=== PATIENT | male | born 1960 | race Caucasian/White ===

== ENCOUNTER 2020-10-04 12:27 | Inpatient (IN) | payer MEDICARE, SELFPAY ==
[2020-10-04] VITALS (35 sets, daily range): BP systolic 131–197; BP diastolic 68–134; PULSE 74–132; RESP 18–36; TEMP 36.2–36.8; O2SAT 87–98
--- NOTE | ~2020-10-04 | XR_ITS ---
EXAMINATION: XR chest 2V EXAM DATE: 10/04/2020 13:00 INDICATION: Shortness of breath, racing heart. History atrial fibrillation. TECHNIQUE: Frontal and lateral projections of the chest obtained and reviewed. Comparison is made to prior examination from 05/01/2014. FINDINGS: The cardiac silhouette is enlarged. There is pulmonary vascular congestion. There is indis tinct reticulation with a bibasal predominance which may indicate pulmonary edema. Small pleural effu sions bilaterally. Appearance is suspicious for mild CHF exacerbation. No confluent consolidation or pneumothorax. Old right rib fracture. IMPRESSION: 1. Findings suspicious for CHF exacerbation. Reviewed, dictated and finalized at location B. ROUND BUTCHER
--- NOTE | ~2020-10-04 | US_ITS ---
EXAMINATION: US venous doppler [facility] DATE: 10/05/2020 07:48 INDICATION: Lower limb edema. TECHNIQUE: Grayscale ultrasound images without and with compression and Doppler ultrasound images of the bilateral lower extremity veins were obtained. COMPARISON: Ultrasound 05/30/2014 FINDINGS: The visualized portions of right common femoral vein, profunda (deep) femoral vein, femoral vein, pop liteal vein, peroneal veins, posterior tibial veins, and greater saphenous vein outflow are patent. The visualized portions of left common femoral vein, profunda femoral vein, femoral vein, popliteal v ein, peroneal veins, posterior tibial veins, and greater saphenous vein outflow are patent. IMPRESSION: 1. No deep venous thrombosis. Reviewed, dictated and finalized at location A. ROOM ATTENDANT
--- NOTE | 2020-10-04 12:39 | ECG_ITS ---
Measurements Intervals [place] Rate: 102 P: CA: 0 QRS: 73 QRSD: 133 T: -53 QT: 367 QTc: 480 Interpretive Statements ATRIAL FIBRILLATION WITH RAPID VENTRICULAR RESPONSE RIGHT BUNDLE BRANCH BLOCK ST-T WAVE ABNORMALITY IN ANTEROLAT/INF LEADS- CONSIDER ISCHEMIA ABNORMAL ECG Electronically Signed On 10-04-2020 12:57:56 DOG HAIR CLIPPER by Clinton Bolaños D.O.
--- NOTE | 2020-10-04 12:43 | PC.NURSE ---
Pt placed on 2 L NC O2, O2 Sat 87% on room air.
[2020-10-04 12:57] LABS: Basophils Absolute Auto 0.1 K/mm3 (0.0-0.1); Basophils Percent Auto 0.7 % (0.2-1.2); Eosinophils Absolute Auto 0.1 K/mm3 (0-0.3); Eosinophils Percent Auto 1.1 % (0-4.4); Hematocrit 40.7 % (42.0-52.0); Immature Granulocyte Absolute 0.02 K/mm3 (0.00-0.031); Immature Granulocyte Percent A 0.3 % (0-0.5); Lymphocytes Absolute Auto 1.01 K/mm3 (0.9-3.2); Lymphocytes Percent Auto 13.3 % (18.3-44.2); Mean Corpuscular HGB Conc 31.9 g/dl (32-36); Mean Corpuscular Hemoglobin 32.6 pg (26-34); Mean Platelet Volume 10.9 fl (7.4-10.4); Monocytes Absolute Auto 0.8 K/mm3 (0.1-0.6); Neutrophils Absolute Auto 5.7 K/mm3 (1.3-6.7); Neutrophils Percent Auto 74.6 % (45.5-73.1); Platelet Count Result 235 k/mm3 (150-375); Red Blood Count 3.99 M/mm3 (4.6-6.20); Red Cell Distribution Width 14.7 % (11.5-14.5); White Blood Count 7.6 K/mm3 (4.5-10.0)
--- NOTE | 2020-10-04 12:58 | ED.ARRPALP ---
HPI - Arrhythmia/Palpitations General Chief Complaint: Arrhythmia/Palpitations Stated Complaint: FAST HEART RATE Time Seen by Provider: 10/04/20 12:42 Source: patient Mode of arrival: ambulatory Limitations: no limitations History of Present Illness HPI narrative: Patient complaining of palpitations started today, accompanied by shortness of breath worse with exertion. Patient states he has a history of A. fib and currently on Xarelto. Patient denies any chest pain, dull pain, nausea, vomiting, diarrhea, fever or chills. Patient states that he has not been taking his diuretics and 7-8 other medications due to insurance issues for the past month, but still taking Xarelto for his A. fib and PEs. Related Data Allergies Allergy/AdvReac Type Severity Reaction Status Date / Time bacitracin Allergy Unknown Unknown Verified 10/04/20 13:23 neomycin Allergy Unknown Unknown Verified 10/04/20 13:23 polymyxin B Allergy Unknown Unknown Verified 10/04/20 13:23 Review of Systems Review of Systems: All systems reviewed & are unremarkable except as noted in HPI and below Constitutional: Constitutional: Denies body ache(s), Denies chills, Denies excessive sweating, Denies fatigue, Denies fever(s), Denies headache(s), Denies lethargy, Denies malaise, Denies weakness and Denies weight loss Eyes: Eyes: Denies blurry vision, Denies change in vision and Denies loss of vision ENT: Denies dizziness, Denies ear discharge, Denies headache(s), Denies lip swelling, Denies epistaxis, Denies nasal congestion, Denies neck pain, Denies throat swelling and Denies tongue swelling Cardiovascular: Cardiovascular: Denies chest pain, Denies chest pain at rest, Denies chest pain with activity, Denies diaphoresis, Denies rapid heart rate, Denies edema, Denies irregular heart rhythm and Denies lightheadedness Respiratory: Respiratory: Denies chest congestion, Denies cough and Denies hemoptysis Gastrointestinal: Gastrointestinal: Denies abdominal pain, Denies melena, Denies hematochezia, Denies diarrhea, Denies nausea, Denies vomiting and Denies hematemesis Musculoskeletal: Musculoskeletal: Denies abnormal gait, Denies deformity, Denies joint swelling, Denies limited range of motion, Denies neck pain and Denies numbness Neurologic: Denies Abnormal speech present, Denies abnormal gait, Denies confusion, Denies dizziness, Denies headache(s), Denies focal weakness, Denies loss of vision, Denies numbness, Denies Other visual disturbances, Denies Sensory deficit (Neuro) and Denies weakness Psychiatric: Psychiatric: Denies confusion, Denies depression, Denies auditory hallucinations, Denies homicidal ideation and Denies suicidal ideation Endocrine: Endocrine: Denies cold intolerance, Denies excessive sweating, Denies fatigue, Denies heat intolerance and Denies palpitations Hematologic/Lymphatic: Hematologic/Lymphatic: Denies easy bleeding and Denies easy bruising Allergic/Immunologic: Allergic/Immunologic: Denies lip swelling, Denies throat swelling and Denies tongue swelling PMFSH Social History Social History Gender identity (if verbalized by the patient): Male Exam Const: General: cooperative, healthy appearing, comfortable, no acute distress, well developed, alert and awake; No confusion Orientation/consciousness: oriented to person, oriented to place, oriented to time, patient oriented x3 and No confusion Limitations: no limitations HENMT: Head: normal to inspection, normocephalic and atraumatic Ears: hearing grossly normal bilaterally, TM normal on the right and TM normal on the left General nose exam: Normal external nose present, Normal nares present and No nasal discharge present Face and sinus: normal facial exam Mouth: Yes Normal oral and palatal mucosa present, Yes lip normal, Yes tongue normal and Yes oropharynx normal Throat: posterior oropharynx normal, tonsils normal and uvula midline Eyes: General: a
[2020-10-04 13:06] LABS: INR 1.6; Prothrombin Time 19.5 Seconds (11.1-14.7)
[2020-10-04 13:10] LABS: Anion Gap 5 mmol/L (8-16); Blood Urea Nitrogen 14 mg/dL (9-20); Calcium 8.6 mg/dL (8.4-10.2); Carbon Dioxide 32 mmol/L (22-30); Chloride 102 mmol/L (98-107); Estimated CRCL calculation 109 ml/min; Estimated Glomerular Filt Rate > 60; Glucose 110 mg/dL (75-110); Potassium 3.8 mmol/L (3.4-5.0); Sodium 139 mmol/L (137-145)
[2020-10-04 13:22] LABS: Troponin I 0.031 ng/mL (0.000-0.034)
[2020-10-04] MEDS: dilTIAZem HCl INJ 25 MG/5 ML VIAL 10 MG IV PUSH (13:23)
[2020-10-04] MEDS: FUROSEMIDE INJ 40 MG/4 ML VIAL IV PUSH ×2 (13:23→20:51)
--- NOTE | 2020-10-04 14:30 | PC.NURSE ---
Asked ERP if they wanted 4 baby aspirins. ERP declined via verbal order readback
[2020-10-04 14:56] LABS: NT Pro B Type Natriuretic Pept 4320 PG/ML (5-100)
--- NOTE | 2020-10-04 15:00 | PM.IMHP ---
H&P: HPI History of Present Illness Date/Time: 10/04/20 15:00 Chief Complaint: Rapid heart rate and shortness of breath. Narrative: This is a very pleasant 59-year-old male with paroxysmal atrial fibrillation on long-term anticoagulation, congestive heart failure, obstructive sleep apnea, history of DVT and pulmonary embolism, morbid obesity, and hypothyroidism who presented to the emergency department earlier today from his primary care provider's office for evaluation of rapid heart rate and shortness of breath. For about a month's time he has felt more short of breath from his baseline with increasing lower extremity edema, dry cough, and weight gain. He attributes this to being off of a majority of his medications for little over a month's time due to a lapse and/or change in insurance, reportedly only taking rivaroxaban on a consistent basis. He established care with Dr. Clemens today and he was found to be in atrial fibrillation with rapid ventricular response on arrival to his office and thus he was directed to the ED. He is now in a sinus rhythm after receiving 10 mg of IV diltiazem x1. He has no real symptoms of the atrial fibrillation aside from the shortness of breath, and specifically denies feelings of racing heart, palpitations, and irregular heartbeat. He sleeps on 3 pillows chronically and that is unchanged. He denies fever, chills, or sweats. No headache, sinus congestion, rhinorrhea, otalgia, odynophagia, nausea, vomiting, or diarrhea. No known sick contacts or exposure to those positive for COVID-19. Review of Systems Review of Systems: Narrative: Twelve systems were reviewed with pertinent positives and negatives as per HPI. No headache. No cold or flu symptoms. He has had a dry cough for about a month but this is really unchanged. Appetite has been good. No dysuria or hematuria. Except as documented, all other systems were reviewed and are negative. [facility] Past Medical History Medical History (Updated 10/04/20 @ 21:12 by Julia Costa PA-C) Anxiety Arthritis Chronic anemia Congestive heart failure Ejection fraction was about 30% on echocardiogram in April 2014. 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 Family History Family History (Updated 10/04/20 @ 21:08 by Julia Costa PA-C) Father Leukemia Sibling Breast cancer Social History Social History (Updated 10/04/20 @ 21:09 by Julia Cotsa PA-C) Social History: Surrogate decision maker: Dennis Baldwin, son. Code status: Full code. Smoking status: Never smoker Second hand tobacco smoke exposure: No Alcohol intake: never Substance use: never Additional living arrangements comments: Lives in his own home in [place]. 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 Gender identity (if verbalized by the patient): Male Spiritual care concerns: No Meds Home Medications and Allergies Home Medications Medication Instructions Recorded Confirmed Type atorvastatin 80 mg PO DAILY 10/04/20 10/04/20 History carvedilol 25 mg PO BID 10/04/20 10/04/20 History levothyroxine 25 mcg PO DAILY 10/04/20 10/04/20 History losartan 100 mg PO DAILY 10/04/20 10/04/20 History magnesium oxide 400 mg PO DAILY 10/04/20 10/04/20 History rivaroxaban [Xarelto] 15 mg PO DAILY 10/04/20 10/04/20 History spironolactone 12.5 mg PO DAILY 10/04/20 10/04/20 History Allergies Allergy/AdvReac Type Severity Reaction Status Date / Time bacitracin Allergy Unknown Unknown Verified 10/04/20 18:44 neomycin Allergy Unknown Unknown Verified 0
[2020-10-04 17:29] LABS: Troponin I 0.038 ng/mL (0.000-0.034)
--- NOTE | 2020-10-04 18:30 | ADMGEN ---
This patient, Omar Baldwin, was admitted to IMU Room 231-01 on 10/04/2020 at 1719. Patient/family oriented to hospital policies and general routines including ID bracelet, bed and alarms, visiting hours, pain management, procedures, bathroom and other care routines, personal items, smoking policy, room service/diet, and visiting hours. Information on how to activate the Rapid Response Team has been discussed. Patient/Family are encouraged to report perceived risks to care and to ask questions if they do not understand what they are told or what they should do.
[2020-10-04 20:47] LABS: Troponin I 0.041 ng/mL (0.000-0.034)
[2020-10-04 21:13] LABS: Alanine Aminotransferase 14 U/L (4-50); Albumin Level 3.6 g/dL (3.5-5.1); Alkaline Phosphatase 73 U/L (38-126); Aspartate Amino Transferase 26 U/L (17-59); Bilirubin,Total 1.5 mg/dL (0.2-1.3); Magnesium 1.7 mg/dL (1.6-2.3)
[2020-10-04 21:15] LABS: Hemoglobin A1C 5.5 % (<5.7)
[2020-10-04 22:13] LABS: Free T4 Free Thyroxine Reflex 1.49 ng/dL (0.78-2.19)
[2020-10-04] MEDS: carvediloL 25 MG TABLET PO (22:27)
[2020-10-05] VITALS (25 sets, daily range): BP systolic 92–130; BP diastolic 48–84; PULSE 64–90; RESP 18–25; TEMP 36–36.3; O2SAT 90–100
[2020-10-05] LABS: Alveolar/Arterial O2 Gradient 179.6 mmHg; Base Excess ABG 7.5 mEq/l (+/-2.0); Carboxyhemoglobin 0.5 % THb (0-2.0); Fractional Inspired Oxygen 44 %; HCO3 ABG 35.7 mEq/l (22.0-26.0); Methemoglobin ABG 0.3 %THb (0-1.5); Oxygen Content ABG 16.4 %vol (16.0-22.0); Oxyhemoglobin 88.3 % THb (90.0-100.0); PO2 ABG 56.1 mmHg (80.0-100.0); PO2 FiO2 Ratio Arterial Blood 1.27 %; Reduced Hemoglobin 10.9 %THb (0-5.0); Total Hemoglobin 13.2 g/dL (12.0-18.0); pH ABG 7.336 (7.350-7.450)
--- NOTE | 2020-10-05 | ECHO_ITS ---
Patient Info Name: Omar Baldwin Age: 59 years : 1960 Gender: Male Ht: 72 in Wt: 417 lbs BSA: 3.21 m2 HR: 66 bpm BP: 108 / 48 mmHg Technical Quality: Poor Exam Date: 10/05/2020 1:28 PM Exam Location: [facility] Patient Status: Inpatient Admit Date: 10/04/2020 Staff Ordering Physician: Juan Daniel Kelsey MD Electrical Calibrator: Bobbi Oliva RDCS Attending Provider: Luz Correa MD Exam Type: CA echo dop color flow w con Study Info Complete two-dimensional, color flow and Doppler transthoracic echocardiogram is performed with contrast to opacify the left ventricle and to improve the deliniation of the left ventricle endocardial borders. Contrast was used for delineation of myocardium. Contrast/Agitated Saline Contrast/Ag. Saline: Definity Amount: 4.00 ml Summary 1. Left ventricular systolic function is normal, estimated at 50-55%. 2. There is mildly increased left ventricular wall thickness. Left Ventricle Left ventricular chamber dimension is normal. Left ventricular systolic function is normal, estimated at 50-55%. There is mildly increased left ventricular wall thickness. Left ventricular septal wall motion is normal. The left ventricular diastolic function is normal. Right Ventricle Right ventricular chamber dimension is mildly enlarged. Right ventricular systolic function is reduced. Left Atria Left atrial chamber dimension is normal. Right Atria Right atrial chamber dimension is normal. Aortic Valve The aortic valve is trileaflet. There is no aortic valve sclerosis. There is no aortic valve stenosis. There is no aortic valve regurgitation. Pulmonic Valve The pulmonic valve is normal. There is no pulmonic valve stenosis. There is no pulmonic regurgitation. Mitral Valve The mitral valve has normal leaflets. There is mild mitral valve stenosis. There is no mitral valve regurgitation. Tricuspid Valve The tricuspid valve leaflets are normal. There is mild tricuspid valve stenosis. There is no tricuspid valve regurgitation. Moderate pulmonary hypertension, estimated pulmonary arterial systolic pressure is 46 mmHg. Pericardium/Pleural The pericardium appears normal. There is no pericardial effusion. Inferior Vena Cava Normal inferior vena cava with >50% collapse upon inspiration consistent with elevated right atrial pressure, 15 mmHg. Aorta The aortic root size at the sinus of Valsalva is normal. The prox ascending aorta size is normal. Left Ventricular Outflow Tract Name Value Normal LVOT 2D LVOT Diameter 2.20 cm LVOT Doppler LVOT Peak Velocity 114.18 cm/s LVOT Peak Gradient 4 mmHg LVOT Mean Gradient 2 mmHg LVOT VTI 26.86 cm LVOT VTI/AV VTI Ratio 1.42 LVOT Stroke Volume 102.00 ml LVOT CO 7.81 l/min LVOT CI 2.43 L/min/m2 Pulmonic Valve
[2020-10-05 00:03] LABS: Oxygen Saturation ABG 86.3 % (95.0-100.0); PCO2 ABG 68.4 mmHg (35.0-45.0); Site Drawn RIGHT RADIAL
[2020-10-05 00:04] LABS: Device OTHER DEVICE; Modified Allen's Test Pass
[2020-10-05 00:22] LABS: Total Triiodothyronine (T3) 1.01 NG/ML (0.97-1.69)
--- NOTE | 2020-10-05 02:27 | PM.EVENT ---
Event Note Event Note Event Note: 10/04/2020 at 23:25 I was in the IMU when respiratory therapy mention that the patient was having some hypoxia. They had tried making adjustments to auto titrating BiPAP but the patient remained hypoxic with oxygen saturations of 85%. Subsequently I requested an ABG be ordered. The patient was found to have hypercapnic hypoxic respiratory failure. Respiratory therapy found and note that mention that the patient was source be titrated for BiPAP as outpatient at sometime in the past. It also mentions that the patient would benefit from trilogy at that time. GENERAL: Morbidly obese HEENT: Large neck circumference, head normocephalic atraumatic CARDIOVASCULAR: Regular rate, irregular rhythm RESPIRATORY: Tachypnea with shallow respirations ABDOMEN: Obese, distended INTEGUMENT: Generalized pallor, non jaundice NEUROLOGIC: Alert and oriented PSYCHIATRIC: Deferred EXTREMITIES: Pitting edema : Deferred Assessment and plan: 1. acute on chronic hypercapnic hypoxic respiratory failure--the patient BiPAP was changed from an auto titrating system to a vision system with settings of 20/10 in a rate of 18 and 100% FiO2 with plan to wean for her oxygen saturations greater than 92%. On the settings the patient was pulling tidal volumes between 450 and 600. However the patient was continuously moving his mask resulting in leaks. Repeat ABG 2 hours later demonstrated PH would pH is 7.29 and pCO2 of 70 with a PO2 of 208. Subsequently orders were given to increase the patient's settings to 22/10 with a rate of 24 and wean FiO2 significantly. Will repeat ABG in 2 hours. I suspect the patient's hypercapnia is more likely due to obesity hypoventilation syndrome rather obstructive lung disease. However, will add Xopenex and Atrovent to see if this may not help with patient's respiratory status. The patient's repeat ABG after BiPAP changes had improved modestly. Pulmonology has been consulted for further recommendations. 40 minutes spent in critical care activities. This case had a high probability of a clinically significant, sudden, or life threatening deterioration of this patient's condition which required my full and direct attention, intervention and personal management.
[2020-10-05 03:09] LABS: Alveolar/Arterial O2 Gradient 434.1 mmHg; Base Excess ABG 4.8 mEq/l (+/-2.0); Carboxyhemoglobin 0.3 % THb (0-2.0); Fractional Inspired Oxygen 100 %; HCO3 ABG 33.4 mEq/l (22.0-26.0); Methemoglobin ABG 0.5 %THb (0-1.5); Oxygen Content ABG 17.8 %vol (16.0-22.0); Oxygen Saturation ABG 99.3 % (95.0-100.0); Oxyhemoglobin 97.7 % THb (90.0-100.0); PO2 ABG 208.7 mmHg (80.0-100.0); PO2 FiO2 Ratio Arterial Blood 2.09 %; Reduced Hemoglobin 1.5 %THb (0-5.0); Total Hemoglobin 12.6 g/dL (12.0-18.0); pH ABG 7.295 (7.350-7.450)
[2020-10-05 03:15] LABS: Device NON-INVASIVE VENT; Modified Allen's Test Pass; PCO2 ABG 70.2 mmHg (35.0-45.0); Site Drawn RIGHT RADIAL
[2020-10-05 03:16] LABS: Non-Invasive Expiratory Pressure 10 CMH2O; Non-Invasive Inspiratory Pressure 20 CMH2O; Non-Invasive Vent Rate 18 /MIN
[2020-10-05] MEDS: IPRATROPIUM BR 0.02% INH SOLN 0.5 MG/2.5 ML VIAL INHALATION ×2 (03:50→08:19)
[2020-10-05 05:39] LABS: Alveolar/Arterial O2 Gradient 316.6 mmHg; Base Excess ABG 5.6 mEq/l (+/-2.0); Carboxyhemoglobin 0.1 % THb (0-2.0); Fractional Inspired Oxygen 70 %; HCO3 ABG 33.8 mEq/l (22.0-26.0); Methemoglobin ABG 0.4 %THb (0-1.5); Oxygen Saturation ABG 97.5 % (95.0-100.0); Oxyhemoglobin 96.9 % THb (90.0-100.0); PCO2 ABG 67.3 mmHg (35.0-45.0); PO2 ABG 110.2 mmHg (80.0-100.0); PO2 FiO2 Ratio Arterial Blood 1.57 %; Reduced Hemoglobin 2.6 %THb (0-5.0); Site Drawn LEFT RADIAL; Total Hemoglobin 13.1 g/dL (12.0-18.0); pH ABG 7.319 (7.350-7.450)
[2020-10-05 05:40] LABS: Device NON-INVASIVE VENT; Modified Allen's Test Pass
[2020-10-05 05:41] LABS: Non-Invasive Expiratory Pressure 10 CMH2O; Non-Invasive Inspiratory Pressure 22 CMH2O; Non-Invasive Vent Rate 24 /MIN
[2020-10-05 05:47] LABS: Hemoglobin 11.9 g/dL (14.0-18.0); Mean Corpuscular HGB Conc 30.5 g/dl (32-36); Mean Corpuscular Volume 104.8 fl (80-100); Mean Platelet Volume 10.8 fl (7.4-10.4); Platelet Count Result 190 k/mm3 (150-375); Red Blood Count 3.72 M/mm3 (4.6-6.20); Red Cell Distribution Width 14.8 % (11.5-14.5); White Blood Count 5.5 K/mm3 (4.5-10.0)
[2020-10-05] MEDS: LEVOTHYROXINE SODIUM 25 MCG TABLET PO (06:08)
[2020-10-05 08:13] LABS: Iron 49 ug/dL (49-181)
[2020-10-05] MEDS: RIVAROXABAN 15 MG TABLET PO (08:15)
[2020-10-05] MEDS: carvediloL 25 MG TABLET PO ×2 (08:15→21:33)
[2020-10-05] MEDS: FUROSEMIDE INJ 40 MG/4 ML VIAL IV PUSH (08:15)
[2020-10-05] MEDS: ATORVASTATIN 40 MG TABLET 80 MG PO (08:15)
[2020-10-05] MEDS: MAGNESIUM OXIDE 400 MG TABLET PO (08:15)
[2020-10-05] MEDS: SPIRONOLACTONE 12.5 MG TABLET PO (08:15)
[2020-10-05] MEDS: LOSARTAN POTASSIUM 100 MG TABLET PO (08:15)
[2020-10-05 08:17] LABS: Blood Urea Nitrogen 14 mg/dL (9-20); Calcium 8.7 mg/dL (8.4-10.2); Carbon Dioxide > 40 mmol/L (22-30); Chloride 99 mmol/L (98-107); Estimated CRCL calculation 92 ml/min; Estimated Glomerular Filt Rate 56; Glucose 98 mg/dL (75-110); Magnesium 1.7 mg/dL (1.6-2.3); Potassium 4.3 mmol/L (3.4-5.0); Sodium 140 mmol/L (137-145)
--- NOTE | 2020-10-05 10:36 | PM.CNCAR ---
Assessment and Plan Assessment and plan (1) CHF exacerbation: Code(s): I50.9 - Heart failure, unspecified Status: Acute Assessment and Plan: He had LV dysfunction in the past but last echo was done 2 years ago showed improved left ventricular systolic function, and significant pulmonary hypertension. Will repeat his echo as was supposed to be done in outpatient but he did not have follow-up for that and he did not have it done, seems to be better clinically now continue diuresis, rate is well controlled now as far as his AFib (2) Atrial fibrillation with RVR: Code(s): I48.91 - Unspecified atrial fibrillation Status: Acute Assessment and Plan: Rate is well controlled now he received 1 dose of Cardizem, now back on his original Coreg, which probably was not taking because uncontrolled blood pressure and altered heart rate. He stated that he was out of his meds for a while, was started back on that and continue with that as when he gets discharged (3) Hypertensive urgency: Code(s): I16.0 - Hypertensive urgency Status: Acute Assessment and Plan: Blood pressure is better now, resume his Coreg and losartan (4) Chronic renal failure: Code(s): N18.9 - Chronic kidney disease, unspecified Status: Acute (5) Obstructive sleep apnea on CPAP: Code(s): G47.33 - Obstructive sleep apnea (adult) (pediatric); Z99.89 - Dependence on other enabling machines and devices Status: Acute (6) Morbid obesity: Code(s): E66.01 - Morbid (severe) obesity due to excess calories Status: Inactive (7) Troponin level elevated: Code(s): R77.8 - Other specified abnormalities of plasma proteins Status: Acute Assessment and Plan: Troponin slightly elevated likely is due to renal failure and congestive heart failure, will continue to monitor, consider further evaluation in case troponin gets significantly elevated. No history of chest pain, no history of known coronary artery disease Additional Plan Thank you for allowing me to participate in this patient's care, I will be following up with you. Please do not hesitate to call me for any other inquiry History of Present Illness History of Present Illness Consult date/time: 10/05/20 10:36 59 years old gentleman with history of known chronic atrial fibrillation and history of sleep apnea with morbid obesity, known to our service with that, he was admitted to the hospital because of worsening shortness of breath and cough, started having dry cough for the past few days. Has mild orthopnea [id number] chronic leg swelling. No recent chest pain no dizziness no palpitation noted when he came in to have atrial fibrillation rapid ventricular response and his blood pressure was elevated, but according to him he was out of some of his medications due to coverage. He has had to come to the hospital to get restarted back on his medication to get refills and to be compliant now with his meds according to him. No chest pain as above, no dizziness no syncope, he gets occasional palpitation, his breathing is much better now since admission to the hospital. Reason For Visit: CHF EXACERBATION/ATRIAL FIB RVR/HTN URGENCY Review of Systems Constitutional: Constitutional: Reports difficulty sleeping and Reports snoring Cardiovascular: Cardiovascular: Reports as per HPI Respiratory: Respiratory: Reports chest congestion and Reports cough PMFSH Past Medical History Medical History (Updated 10/05/20 @ 10:40 by Juan Daniel Kelsey MD) Anxiety Arthritis Chronic anemia Congestive heart failure Ejection fraction was about 30% on echocardiogram in April 2014. Current use of correction anticoagulation Gastroesophageal reflux disease History of deep venous thrombosis History of pulmonary embolism Hypertension Hypothyroidism Morbid obesity Obstructive sleep apnea on CPAP Paroxysmal atrial fibrillation Surgical History Surgi
[2020-10-05 12:43] LABS: Percent Iron Saturation 14 % (20-50)
--- NOTE | 2020-10-05 12:44 | PM.CNPUL ---
Assessment and Plan Assessment and plan (1) Obstructive sleep apnea on CPAP: Code(s): G47.33 - Obstructive sleep apnea (adult) (pediatric); Z99.89 - Dependence on other enabling machines and devices Status: Acute Assessment and Plan: Patient with obstructive sleep apnea on CPAP for 13 years. In patient now also appears to have chronic hypercarbic respiratory failure but this is in the setting of an acute CHF for exacerbation. Agree with aggressive diuresis. Patient has had no follow-up with a pulmonary physician for approximately 5-10 years and will need a recent download to ensure that his obstructive sleep apnea is adequately treated. If his YEN is adequately treated on CPAP once patient is felt to be euvolemic will repeat blood gas and if he remains hypercarbic will initiate nocturnal noninvasive ventilation. Will check with his [employer] but he will likely need outpatient BiPAP titration in sleep lab and he can follow up with us in clinic for this work up. While he is in the hospital agree with BiPAP 22/10 rate 12and FIO2 to maintain sats > 90%. There is no evidence of reactive airways disease, bronchitis or pneumonia at this time. I will DC bronchodilators. (2) Acute exacerbation of CHF (congestive heart failure): Qualifiers: Heart failure type: unspecified Qualified Code(s): I50.9 - Heart failure, unspecified Code(s): I50.9 - Heart failure, unspecified Status: Acute Assessment and Plan: Agree with aggressive diuresis per hospitalist and cardiology teams. Spoke with Dr. Smith. Will follow with you. History of Present Illness History of Present Illness Consult date: 10/05/20 Requesting physician: Robert Smith MD Reason for consult: hypoxemia Chief complaint: CHF EXACERBATION/ATRIAL FIB RVR/HTN URGENCY Narrative: 59-year-old male with a history of pulmonary embolism in 2001 thought to be related to his non ambulatory lifestyle. Patient improved and was off warfarin after 6 months. Patient then had repeat pulmonary embolism in 2002 when he was off his coumadin. Patient was then placed on lifelong anticoagulation. Patient ran out of his medicines in 2011 and had a 3rd pulmonary embolism. Patient has never had pulmonary embolism when he was on his anticoagulation. Patient also has a history of congestive heart failure, atrial fibrillation and morbid obesity and obstructive sleep apnea. Patient was diagnosed with obstructive sleep apnea in 2007 has been and has been on a CPAP machine at home with a fullface mask that he wears every night with 2 L bleed in. Patient had a new machine in 2013. Patient does not wear oxygen during the day and has a pulse oximeter and says that the readings are above 90 during the day. Currently patient ran out of his medicines due to an insurance change at on 08/30/2020. He was able to continue to take his right peroxide band. Patient comes in now with shortness of breath and fast heart rate to his doctor's office who sent him to the emergency room. Patient was found to be hypertensive and in AFib RVR and was treated will do it with diltiazem. Patient denies any fever, chills, phlegm production or hemoptysis. Patient does have a chronic cough. Patient denies any chest pain. Of note patient has gained over 50 lb in the last year. He had a BNP of 4320 and a CXR that demonstrated cpongestion. Patient was given Lasix with good diuresis. Patient had a blood gas on 6 L nasal cannulae of 7.34/69/56. Patient was hypoxemic during the night and placed on BiPAP 22-10 on 70% with a repeat blood gas of 7.32/67/110 2/6 I saw the patient this morning and he was breathing comfortably on 2 L nasal cannula with saturations 93%. Patient states that he was now breathing a little better. The patient is a never smoker, no secondhand exposure, patient states that he was exposed to asbestos in his 20s through work but wore mask. Patient denies any vaping or marijuana
--- NOTE | 2020-10-05 13:04 | PM.IMPN ---
Progress Note: A&P Assessment and Plan (1) CHF exacerbation: Code(s): I50.9 - Heart failure, unspecified Status: Acute Assessment and Plan: Patient with acute on chronic CHF. Chest x-ray consistent with CHF exacerbation. BNP 4300. Acute exacerbation related to being off his medications and the AFib with RVR. Heart rate better controlled. Good urine output with IV Lasix. Appreciate Cardiology input. (2) Atrial fibrillation with RVR: Code(s): I48.91 - Unspecified atrial fibrillation Status: Acute Assessment and Plan: Patient received 1 dose of diltiazem in the ER. Patient resumed on his Coreg. Blood pressure and heart rate well controlled now. Continue Xarelto. Continue telemetry monitoring. (3) Acute respiratory failure: Code(s): J96.00 - Acute respiratory failure, unspecified whether with hypoxia or hypercapnia Status: Acute Assessment and Plan: ABG shows pH 7.34 and pCO2 of 68 on admission. This worsened to a pH of 7.29 and pCO2 of 70. With BiPAP his most recent ABG has improved. Discussed with Pulmonary. Plan is to continue his CPAP at home as well as to optimize his medical management for his above the issues. He will need a repeat sleep study. (4) Troponin level elevated: Code(s): R77.8 - Other specified abnormalities of plasma proteins Status: Acute Assessment and Plan: Elevated 0.041. ST T wave abnormalities in the anterior lateral and inferior leads. However this is more likely a type 2 PA related to the AFib with RVR and CHF exacerbation. Cardiology following. Continue medical management. (5) Hypertension: Code(s): I10 - Essential (primary) hypertension Status: Inactive Assessment and Plan: Blood pressure was elevated 195/89 on admission. With resuming his home medications, blood pressure is much better controlled. Continue to monitor closely. Watch for low blood pressure. (6) Obstructive sleep apnea on CPAP: Code(s): G47.33 - Obstructive sleep apnea (adult) (pediatric); Z99.89 - Dependence on other enabling machines and devices Status: Acute Assessment and Plan: As above. (7) DVT prophylaxis: Code(s): Z29.9 - Encounter for prophylactic measures, unspecified Status: Acute Assessment and Plan: Xarelto Subjective Date/time seen: 10/05/20 13:04 Interval history: Date of service 10/05 59yo male with pAFib, CHF, YEN and hx of DVT/PE here tachycardia and SOB. Patient has been out of his Spironolactone, Lasix and Coreg for the past month due to insurance. He has been taking the Xarelto regularly. Patient feels much better today. No complaints of shortness of breath. Slight cough productive of clear sputum. No chest pain. He is compliant with his CPAP at home. No nausea or vomiting. No diarrhea. No abdominal pain. Exam Narrative: Exam Narrative: AF 97.2 108/48 65 20 95% ra Gen - NARD sitfaisal gup in bed feeding himself lunch Chest - decreased BS in the bases with scattered expiratory rhonchi, nml RR, no conversational dyspnea CV -irregularly-irregular. S1-S2. Telemetry showing AFib with controlled rate. Episode of is 17 beat run of wide complex irregular rhythm possibly AFib with aberrancy Abd - Soft, obese, NT +BS Ext - trace-1+ pedal edema Psych - Nml mood and affect Skin - Warm and dry Objective Data Vital Signs Vital Signs: Vital Signs - 24 hr 10/04/20 13:05 10/04/20 13:15 10/04/20 13:16 Temperature Pulse Rate 102 H 92 99 Respiratory Rate 28 H 36 H 29 H Blood Pressure 197/103 H 188/96 H Pulse Oximetry 96 95 94 10/04/20 13:50 10/04/20 14:27 10/04/20 14:56 Temperature Pulse Rate 99 99 86 Respiratory Rate 26 H 20 20 Blood Pressure 165/75 H Pulse Oximetry 94 94 10/04/20 15:00 10/04/20 15:01 10/04/20 15:15 Temperature Pulse Rate 101 H 93 90 Respiratory Rate 26 H 20 Blood Pressure 131/112 H Pul
[2020-10-05 13:39] LABS: Folic Acid 6.6 ng/mL (2.76->20)
[2020-10-06] VITALS (14 sets, daily range): BP systolic 107–139; BP diastolic 66–79; PULSE 64–91; RESP 22–30; TEMP 35.9–36.2; O2SAT 92–99
[2020-10-06 04:49] LABS: Hematocrit 38.3 % (42.0-52.0); Hemoglobin 11.8 g/dL (14.0-18.0); Mean Corpuscular HGB Conc 30.8 g/dl (32-36); Mean Corpuscular Hemoglobin 32.6 pg (26-34); Mean Corpuscular Volume 105.8 fl (80-100); Mean Platelet Volume 10.4 fl (7.4-10.4); Platelet Count Result 175 k/mm3 (150-375); Red Blood Count 3.62 M/mm3 (4.6-6.20); Red Cell Distribution Width 14.8 % (11.5-14.5); White Blood Count 5.8 K/mm3 (4.5-10.0)
[2020-10-06 05:28] LABS: Albumin Level 2.9 g/dL (3.5-5.1); Blood Urea Nitrogen 16 mg/dL (9-20); Calcium 8.1 mg/dL (8.4-10.2); Carbon Dioxide > 40 mmol/L (22-30); Chloride 98 mmol/L (98-107); Estimated CRCL calculation 100 ml/min; Estimated Glomerular Filt Rate > 60; Glucose 107 mg/dL (75-110); Magnesium 1.6 mg/dL (1.6-2.3); Phosphorus 4.3 mg/dL (2.5-4.5); Potassium 4.1 mmol/L (3.4-5.0); Sodium 137 mmol/L (137-145)
[2020-10-06] MEDS: LEVOTHYROXINE SODIUM 25 MCG TABLET PO (05:58)
[2020-10-06] MEDS: carvediloL 25 MG TABLET PO (08:09)
[2020-10-06] MEDS: ATORVASTATIN 40 MG TABLET 80 MG PO (08:09)
[2020-10-06] MEDS: MAGNESIUM OXIDE 400 MG TABLET PO (08:09)
[2020-10-06] MEDS: RIVAROXABAN 15 MG TABLET PO (08:09)
[2020-10-06] MEDS: LOSARTAN POTASSIUM 100 MG TABLET PO (08:09)
[2020-10-06] MEDS: SPIRONOLACTONE 12.5 MG TABLET PO (08:09)
[2020-10-06] MEDS: FUROSEMIDE INJ 40 MG/4 ML VIAL IV PUSH (08:11)
--- NOTE | 2020-10-06 11:28 | PM.PNPUL ---
Progress Note: A&P Assessment and Plan (1) Obstructive sleep apnea on CPAP: Code(s): G47.33 - Obstructive sleep apnea (adult) (pediatric); Z99.89 - Dependence on other enabling machines and devices Status: Acute Assessment and Plan: 10/05 Patient with obstructive sleep apnea on CPAP for 13 years. In patient now also appears to have chronic hypercarbic respiratory failure but this is in the setting of an acute CHF for exacerbation. Agree with aggressive diuresis. Patient has had no follow-up with a pulmonary physician for approximately 5-10 years and will need a recent download to ensure that his obstructive sleep apnea is adequately treated. If his YEN is adequately treated on CPAP once patient is felt to be euvolemic will repeat blood gas and if he remains hypercarbic will initiate nocturnal noninvasive ventilation. Will check with his [employer] but he will likely need outpatient BiPAP titration in sleep lab and he can follow up with us in clinic for this work up. While he is in the hospital agree with BiPAP 22/10 rate 12and FIO2 to maintain sats > 90%. There is no evidence of reactive airways disease, bronchitis or pneumonia at this time. I will DC bronchodilators. 10/06 Back to his baseline. Did not tolerate BiPAP 22/10 last night. Will ultimately need more information from [employer] and possible noninvasive ventilation. He may require repeat sleep study with BiPAP titration depending on information from [employer]. He wishes to follow with me in pulmonay clinic and I gave him my business card to call us ([phone]). (2) Acute exacerbation of CHF (congestive heart failure): Qualifiers: Heart failure type: unspecified Qualified Code(s): I50.9 - Heart failure, unspecified Code(s): I50.9 - Heart failure, unspecified Status: Acute Assessment and Plan: Agree with aggressive diuresis per hospitalist and cardiology teams. Spoke with Dr. Smith with plans on DC home today. Subjective Date/time seen: 10/06/20 11:28 Interval history: 10/05 Narrative: 59-year-old male with a history of pulmonary embolism in 2001 thought to be related to his non ambulatory lifestyle. Patient improved and was off warfarin after 6 months. Patient then had repeat pulmonary embolism in 2002 when he was off his coumadin. Patient was then placed on lifelong anticoagulation. Patient ran out of his medicines in 2011 and had a 3rd pulmonary embolism. Patient has never had pulmonary embolism when he was on his anticoagulation. Patient also has a history of congestive heart failure, atrial fibrillation and morbid obesity and obstructive sleep apnea. Patient was diagnosed with obstructive sleep apnea in 2007 has been and has been on a CPAP machine at home with a fullface mask that he wears every night with 2 L bleed in. Patient had a new machine in 2013. Patient does not wear oxygen during the day and has a pulse oximeter and says that the readings are above 90 during the day. Currently patient ran out of his medicines due to an insurance change at on 08/30/2020. He was able to continue to take his right peroxide band. Patient comes in now with shortness of breath and fast heart rate to his doctor's office who sent him to the emergency room. Patient was found to be hypertensive and in AFib RVR and was treated will do it with diltiazem. Patient denies any fever, chills, phlegm production or hemoptysis. Patient does have a chronic cough. Patient denies any chest pain. Of note patient has gained over 50 lb in the last year. He had a BNP of 4320 and a CXR that demonstrated cpongestion. Patient was given Lasix with good diuresis. Patient had a blood gas on 6 L nasal cannulae of 7.34/69/56. Patient was hypoxemic during the night and placed on BiPAP 22-10 on 70% with a repeat blood gas of 7.32/67/110 2/6 I saw the patient this morning and he was breathing comfortably on 2 L nasal cannula with saturations 93%. Patient
--- NOTE | 2020-10-06 12:40 | PM.DS ---
DS: Admitting Diagnosis Admitting Diagnosis Admitting Diagnosis: SOB DS: Discharge Diagnosis Discharge Diagnosis (1) CHF exacerbation: Code(s): I50.9 - Heart failure, unspecified Status: Acute Assessment and Plan: Patient with acute on chronic CHF. Chest x-ray on admission consistent with CHF exacerbation. BNP 4300. Acute exacerbation related to being off his medications and the AFib with RVR. Heart rate now better controlled. Good urine output with IV Lasix. Echocardiogram showed EF of 50-55% and normal diastolic function. No significant valvular disease. Cardiology involved in his care. Able to be weaned to room air. Patient has refills on his medications. (2) Atrial fibrillation with RVR: Code(s): I48.91 - Unspecified atrial fibrillation Status: Acute Assessment and Plan: Patient received 1 dose of diltiazem in the ER. Patient resumed on his Coreg. Blood pressure and heart rate well controlled now. Lower extremity venous Doppler was negative for DVT. He was monitored closely in the IMU on tele. We continued his Xarelto. (3) Acute respiratory failure: Code(s): J96.00 - Acute respiratory failure, unspecified whether with hypoxia or hypercapnia Status: Acute Assessment and Plan: ABG shows pH 7.34 and pCO2 of 68 on admission. This worsened to a pH of 7.29 and pCO2 of 70. With BiPAP, his most recent ABG has improved. Patient seen by Pulmonary. Plan is to continue his CPAP at home as well as to optimize his medical management for his above issues. Patient to follow-up with pulmonary as outpatient. (4) Troponin level elevated: Code(s): R77.8 - Other specified abnormalities of plasma proteins Status: Acute Assessment and Plan: Elevated 0.041. ST T wave abnormalities in the anterior lateral and inferior leads. However this is more likely a type 2 ND related to the AFib with RVR and CHF exacerbation. (5) Hypertension: Code(s): I10 - Essential (primary) hypertension Status: Inactive Assessment and Plan: Blood pressure was elevated 195/89 on admission. With resuming his home medications, blood pressure is much better controlled. (6) Obstructive sleep apnea on CPAP: Code(s): G47.33 - Obstructive sleep apnea (adult) (pediatric); Z99.89 - Dependence on other enabling machines and devices Status: Acute Assessment and Plan: As above. (7) Pulmonary HTN: Code(s): I27.20 - Pulmonary hypertension, unspecified Status: Acute Assessment and Plan: Echo noted mildly enlarged right ventricle with reduced right ventricular systolic function. Has moderate pulmonary hypertension with PASP of 46. Related to above. Plan to optimize sleep apnea treatment. DS: Summary Hospital Course Reason for hospitalization: 59-year-old male with AFib, CHF, diabetes and hypertension here for increasing shortness of breath and found to have CHF exacerbation and atrial fibrillation with RVR. Patient has been out of his medications due to insurance issues recently. Please see H&P for details. Hospital Course: Please see above for details hospital course Status at Discharge Cognitive/behavioral status at discharge: Stable condition Time Spent with Patient Time attestation: Total time spent providing and/or coordinating discharge services: 35 minutes Time spent: Greater than 30 minutes Specific discharge activities: Spoke with Pulmonary and Cardiology. Patient Education. Exam Narrative: Exam Narrative: AF 97.2 130/70 64 26 96% ra Gen - NARD Chest - decreased BS but overall clear CV -irregularly-irregular. S1-S2. Telemetry showing AFib with controlled rate. Abd - Soft, obese, NT +BS Ext - trace-1+ pedal edema Psych - Nml mood and affect Skin - Warm and dry DS: Data Data Completed and Pending Labs on day of discharge: Labs from last 24 hours 10/06/20 10/06/20 10/05/20
--- NOTE | 2020-10-06 12:48 | PM.PNCARD ---
Progress Note: A&P Assessment and Plan (1) CHF exacerbation: Code(s): I50.9 - Heart failure, unspecified Status: Acute Assessment and Plan: He had LV dysfunction in the past but last echo was done 2 years ago showed improved left ventricular systolic function, and significant pulmonary hypertension. his echo showed normal left ventricular systolic function but with evidence of right ventricular enlargement right ventricular dysfunction, seems to be better clinically now after significant diuresis, he is stable from cardiac standpoint to be discharged home on 40 b.i.d. of Lasix and continue with other medications (2) Atrial fibrillation with RVR: Code(s): I48.91 - Unspecified atrial fibrillation Status: Acute Assessment and Plan: Rate is well controlled now he received 1 dose of Cardizem, now back on his original Coreg, which probably was not taking because uncontrolled blood pressure and altered heart rate. He stated that he was out of his meds for a while, was started back on that and continue with that as when he gets discharged (3) Hypertensive urgency: Code(s): I16.0 - Hypertensive urgency Status: Acute Assessment and Plan: Blood pressure is better now, resume his Coreg and losartan (4) Chronic renal failure: Code(s): N18.9 - Chronic kidney disease, unspecified Status: Acute (5) Obstructive sleep apnea on CPAP: Code(s): G47.33 - Obstructive sleep apnea (adult) (pediatric); Z99.89 - Dependence on other enabling machines and devices Status: Acute (6) Morbid obesity: Code(s): E66.01 - Morbid (severe) obesity due to excess calories Status: Inactive (7) Troponin level elevated: Code(s): R77.8 - Other specified abnormalities of plasma proteins Status: Acute Assessment and Plan: Troponin slightly elevated likely is due to renal failure and congestive heart failure, will continue to monitor, consider further evaluation in case troponin gets significantly elevated. No history of chest pain, no history of known coronary artery disease Additional Plan he seems to be stable from cardiac standpoint to be discharged home, please have a follow-up with me next week Subjective Date/time seen: 10/06/20 12:48 He feels much better today, leg swelling is better shortness of breath is better. Echocardiogram done, showed normal left ventricular systolic function with significant right ventricular enlargement and right ventricular dysfunction. His AFib rate is well controlled today Exam Narrative: Exam Narrative: Awake alert oriented x3 not in acute distress. Morbidly obese but comfortable now Neck is supple no obvious JVD, no carotid bruit Chest: Good air entry bilaterally, lungs are clear to auscultation and percussion bilaterally Cardiovascular: irregularly irregular rhythm, 2/6 systolic murmur noted left sternal border Abdomen: Soft nontender bowel sounds positive Extremities: +2 edema, with skin discoloration consistent with venous stasis, has good pulses distally bilaterally Objective Data Vital Signs Vital Signs: Vital Signs - 24 hr 10/05/20 14:00 10/05/20 16:00 10/05/20 17:05 Temperature 36.1 C L Pulse Rate 69 73 Respiratory Rate 24 H Blood Pressure 92/70 L Pulse Oximetry 95 93 10/05/20 18:00 10/05/20 19:57 10/05/20 20:00 Temperature 36.1 C L Pulse Rate 76 80 75 Respiratory Rate 20 Blood Pressure 112/74 Pulse Oximetry 96 96 10/05/20 21:33 10/05/20 22:00 10/05/20 23:40 Temperature Pulse Rate 88 78 71 Respiratory Rate 24 H Blood Pressure Pulse Oximetry 98 10/06/20 00:00 10/06/20 02:00 10/06/20 04:00 Temperature 36.1 C L 36.1 C L Pulse Rate 65 76 71 Respiratory Rate 30 H 22 H Blood Pressure 107/66 118/66 Pulse Oximetry 99 96 10/06/20 04:01 10/06/20 06:00 10/06/20 08:00 Temperature Pulse Rate 74 90 77 Respiratory Rate 28 H Blood Pressure Pulse Oxime
== END 2020-10-06 13:48 | disposition home or self-care (01) | DRG 280 ==
LOC: ANHED 14:33 → ANHIMU 15:19
PROVIDERS: Internal Medicine; Nurse Practitioner; Physician Assistant; Admitting Provider Internal Medicine; Emergency Provider Emergency Medicine; PCP Family Medicine; Visit Provider Internal Medicine
DX: I13.0 Hypertensive heart and chronic kidney disease with heart failure and stage 1 through stage 4 chronic kidney disease, or unspecified chronic kidney disease (principal); J96.21 Acute and chronic respiratory failure with hypoxia; I21.A1 Myocardial infarction type 2; J96.22 Acute and chronic respiratory failure with hypercapnia; Z68.43 Body mass index [BMI] 50.0-59.9, adult; I48.20 Chronic atrial fibrillation, unspecified; E66.2 Morbid (severe) obesity with alveolar hypoventilation; I16.0 Hypertensive urgency; I50.9 Heart failure, unspecified; G47.33 Obstructive sleep apnea (adult) (pediatric); I27.20 Pulmonary hypertension, unspecified; F41.9 Anxiety disorder, unspecified; M19.90 Unspecified osteoarthritis, unspecified site; K21.9 Gastro-esophageal reflux disease without esophagitis; E03.9 Hypothyroidism, unspecified; D64.9 Anemia, unspecified; N18.9 Chronic kidney disease, unspecified; Z86.718 Personal history of other venous thrombosis and embolism; Z86.711 Personal history of pulmonary embolism; Z79.01 Long term (current) use of anticoagulants
CPT/HCPCS: 36415; 36600; 71046; 80048; 80069; 80076; 82375; 82607; 82728; 82746; 82805; 83036; 83050; 83540; 83550; 83735; 83880; 84439; 84443; 84480; 84484; 85025; 85027; 85380; 85610; 85730; 93005; 93970; 94002; 94003; 94640; 96374; 96375; 96376; 99285; A9270; C8929; G0378; J1940; Q9957

== ENCOUNTER 2021-06-12 07:55 | Outpatient (CLI) | payer MEDICARE, SELFPAY ==
--- NOTE | 2021-06-25 11:33 | WPDSLEEPSTUD ---
Sleep Study Date of Study: 06/12/21 <Miracle Adkins DO - Last Filed: 06/25/21 13:43> Ordering Provider: Julisa Clemens MD <Miracle Adkins DO - Last Filed: 06/25/21 13:43> Interpreting Physician: Miracle Adkins DO <Miracle Adkins DO - Last Filed: 06/25/21 13:43> Sleep Study Type: Split Polysomnogram <Miracle Adkins DO - Last Filed: 06/25/21 13:43> Height: 1.79 m <Miracle Adkins DO - Last Filed: 06/25/21 13:43> Weight: 111.13 kg <Miracle Adkins DO - Last Filed: 06/25/21 13:43> Body Mass Index: 34.6 <Miracle Adkins DO - Last Filed: 06/25/21 13:43> Neck Circumference (inches): 19 <Miracle Adkins DO - Last Filed: 06/25/21 13:43> [place]: 4 <Miracle Adkins DO - Last Filed: 06/25/21 13:43> Reason for Sleep Study The patient was diagnosed with YEN in 2008 at [facility] in [place], [place]. He was on CPAP with oxygen. He states that his current CPAP machine doesn't work. <Miracle Adkins DO - Last Filed: 06/25/21 13:43> Sleep History The patient is a 60-year-old male with atrial fibrillation, congestive heart failure, hypertension, hypothyroidism, hyperlipidemia and YEN that had a Split Night study ordered by his PCP to re-establish diagnosis of YEN so he can get new equipment. the patient frequently awakens from sleep short of breath. He rarely awakens at night with heartburn, belching or cough. He constantly snores loud enough that others complain. He occasionally has trouble sleeping when he has a cold. He occasionally wakes up gasping for air throughout the night. He occasionally sweats excessively at night. He occasionally notices heart palpitations throughout the night. He occasionally falls asleep during the day but never while driving. He occasionally has trouble at work or school due to sleepiness. He occasionally feels unable to move when waking or falling asleep. He frequently experiences vivid dreamlike scenes upon awakening or falling asleep. He denies having nightmares. He constantly has thoughts racing through his mind. He rarely feels sad or depressed but occasionally feels anxious. He occasionally notices parts of his body jerk. He occasionally kicks during the night. He rarely experiences crawling and aching feelings in his legs as well as leg pain during the night. He denies grinding his teeth at night and awakening with jaw pain in the morning. He is rarely bothered by pain during the day as well as awakened by pain during the night. He rarely wakes up feeling stiff in the morning with sore and achy muscles. He goes to bed between 8 and 10:00 p.m. on both weekdays and weekends. He falls asleep within 10-15 minutes. He wakes up 3-5 times per night to urinate. He can usually fall asleep within a few minutes. He wakes up between 7 and 9:00 a.m. on both weekdays and weekends. He typically gets 5-7 hours of sleep per night. He usually spends 10 minutes in bed after waking. He currently lives alone. He denies consuming any caffeinated beverages within 2 hours of going to sleep. He does not engage in physical exercise before bedtime. He will watch television before falling asleep. He will take naps in the afternoon or evening and B are refreshing. He denies tobacco, caffeine, alcohol and recreational drug use. <Miracle Adkins DO - Last Filed: 06/25/21 13:43> [facility] Past Medical History Medical History: Medical History Anxiety Arthritis Atrial fibrillation Chronic anemia CKD (chronic kidney disease) stage 3, GFR 30-59 ml/min Congestive heart failure Ejection fraction was about 30% on echocardiogram in April 2014. Current use of fpc anticoagulation Dyslipidemia Gastroesophageal reflux disease Heart disease Follows with Dr Perez [facility] History of deep venous thrombosis History
[2021-06-25 11:43] VITALS: BMI 34.6
== END 2021-06-13 10:00 | disposition home or self-care (01) ==
LOC: ANHCSM 07:57
PROVIDERS: PCP Family Medicine; Visit Provider Family Medicine
DX: G47.33 Obstructive sleep apnea (adult) (pediatric) (principal)
CPT/HCPCS: 95811

== ENCOUNTER → 2021-10-08 14:06 | Outpatient (CLI) | payer MEDICARE, SELFPAY ==
--- NOTE | ~2021-10-08 | US_ITS ---
EXAMINATION: US renal BI EXAM DATE: 10/08/2021 14:30 INDICATION: Stage 3b chronic kidney disease . TECHNIQUE: Multiple grayscale and Doppler images of the kidneys were obtained (by a technologist who performed the scan) and subsequently reviewed. Comparison is made to prior examination from 10/01/2014. FINDINGS: Right kidney: There is normal contour and echogenicity. It measures 10.4 x 6.4 x 5.3 centimeters. T here are no focal renal lesions identified. There is no hydronephrosis. Left kidney: There is normal contour and echogenicity. It measures 9.5 x 6.3 x 5.4 centimeters. The re are no focal renal lesions identified. There is no hydronephrosis. Bladder unremarkable. IMPRESSION: 1. Sonographically unremarkable kidneys. Reviewed, dictated and finalized at location B. [employer] [employer]
== END ==
PROVIDERS: PCP Family Medicine; Visit Provider Internal Medicine Nephrology
DX: N18.32 Chronic kidney disease, stage 3b (principal)
CPT/HCPCS: 76775

== ENCOUNTER 2022-08-05 12:50 | Inpatient (IN) | payer MEDICARE, SELFPAY ==
[2022-08-05] VITALS (19 sets, daily range): BP systolic 135–162; BP diastolic 72–105; PULSE 70–132; RESP 16–41; TEMP 36.2; O2SAT 96–100; BMI 53.3
--- NOTE | ~2022-08-05 | US_ITS ---
US renal BI 08/07/2022 15:37 Procedure: Realtime transabdominal ultrasound of the kidneys and bladder. Indication: Acute renal insufficiency Comparison: 10/08/2021 Findings: Renal echotexture is normal bilaterally without hydronephrosis, contour deforming mass or r enal calculus. The right kidney measures 10.5 cm and left kidney measures 9.9 cm. Bladder is decompre ssed by [place] catheter. Impression: 1: Unremarkable renal ultrasound. No stones, masses or hydronephrosis. Reviewed, dictated and finalized at location A. T ADJUSTER Impression: 1: Unremarkable renal ultrasound. No stones, masses or hydronephrosis.
--- NOTE | ~2022-08-05 | XR_ITS ---
XR chest 1V portable 08/05/2022 13:27 Indication: Shortness of breath. History of A. fib. Procedure: AP portable chest Comparison: Comparison to multiple prior studies sequentially, with oldest reviewed study dated 05/26. Findings: Cardiomegaly. No significant effusion or pneumothorax. Improving basilar infiltrates which may represent resolving edema or pneumonia. Impression: 1: Improving bibasilar infiltrates which may represent resolving edema or pneumonia. Reviewed, dictated and finalized at location A. TRY VETERINARIAN Impression: 1: Improving bibasilar infiltrates which may represent resolving edema or pneum onia.
--- NOTE | ~2022-08-05 | XR_ITS ---
EXAMINATION: XR chest 1V portable DATE: 08/07/2022 06:12 INDICATION: Respiratory failure TECHNIQUE: frontal view of the chest was obtained. COMPARISON: Chest radiograph dated 08/05/2022 FINDINGS: No focal airspace opacities, pulmonary edema, pleural effusion or pneumothorax. Cardiomegaly. Old rig ht rib fracture. IMPRESSION: 1. Cardiomegaly. Reviewed, dictated and finalized at location A. H LATHE OPERATOR IMPRESSION: 1. Cardiomegaly.
--- NOTE | 2022-08-05 12:56 | ECG_ITS ---
Measurements Intervals Barker Rate: 82 P: AL: 0 QRS: 61 QRSD: 147 T: -46 QT: 394 QTc: 460 Interpretive Statements ATRIAL FIBRILLATION RIGHT BUNDLE BRANCH BLOCK COMPARED TO ECG 10/04/2020 12:41:16 NO SIGNIFICANT CHANGES Electronically Signed On 08-05-2022 15:13:22 [employer] by Kim Larose M.D.
--- NOTE | 2022-08-05 13:07 | ED.GENADULT ---
HPI - General Adult General Chief complaint: Shortness of Breath/Dyspnea Stated complaint: SOB Time Seen by Provider: 08/05/22 12:54 History of Present Illness HPI narrative: 61-year-old male with history of hypertension, high cholesterol, chronic kidney disease, congestive heart failure and atrial fibrillation on CPAP at nighttime presenting to the emergency department for evaluation of worsening shortness of breath over the last few days. Patient reports he is normally on 0-2 L of oxygen by nasal cannula at home. When he was evaluated by EMS initially he was found to be in the low 90s on 4L home ox. Due to concern for his increased work of breathing patient was initially placed on CPAP and transition to BiPAP on arrival to the ED. Patient does report generalized weakness and shortness of breath but denies any associated chest pain. Patient denies any recent sick contacts. Patient was vaccinated for flu and for COVID. Related Data Home Medications Medication Instructions Recorded Confirmed carvedilol 25 mg tablet 25 mg PO Q12H 10/04/20 08/05/22 furosemide 40 mg tablet 40 mg PO BID 10/04/20 08/05/22 losartan 100 mg tablet 100 mg PO DAILY 10/04/20 08/05/22 magnesium oxide 400 mg PO DAILY 10/04/20 08/05/22 rivaroxaban 15 mg tablet (Xarelto) 15 mg PO DAILY 10/04/20 08/05/22 atorvastatin 80 mg tablet 80 mg PO QHS 05/29/21 08/05/22 spironolactone 25 mg tablet 12.5 mg PO DAILY 11/27/21 08/05/22 fluticasone propionate 50 2 spray intranasal DAILY 08/05/22 08/05/22 mcg/actuation nasal spray,suspension (Allergy Relief (fluticasone)) vuztsmamkroy-[id number]-[id number] 1 tablet PO DAILY 08/05/22 08/05/22 tablet (Multivitamin 50 Plus tablet) Allergies Allergy/AdvReac Type Severity Reaction Status Date / Time bacitracin Allergy Unknown Unknown Verified 06/16/22 10:22 neomycin Allergy Unknown Unknown Verified 06/16/22 10:22 polymyxin B Allergy Unknown Unknown Verified 06/16/22 10:22 Review of Systems Review of Systems: CONSTITUTIONAL: Subjective fever and generalized weakness EYES: Denies visual changes, redness, or discharge. ENT: Denies rhinorrhea, congestion, sore throat, or otalgia. CARDIOVASCULAR: Denies chest pain, palpitations, no worsening lower extremity edema RESPIRATORY: See HPI GASTROINTESTINAL: Denies abdominal pain, nausea, vomiting, or diarrhea. GENITOURINARY: Denies dysuria or hematuria. SKIN: Denies rash or itching. MUSCULOSKELETAL: Denies back pain, joint pain, or myalgia. NEUROLOGIC: Denies headache, numbness, or weakness. [facility] Past Medical History Medical History Anxiety Arthritis Atrial fibrillation Chronic anemia CKD (chronic kidney disease) stage 3, GFR 30-59 ml/min Congestive heart failure Ejection fraction was about 30% on echocardiogram in April 2014. Current use of fpc anticoagulation Dyslipidemia Gastroesophageal reflux disease [facility] History of deep venous thrombosis History of venous thromboembolism Hx of pulmonary embolus x3, taking Xarelto Hypertension Hypothyroidism Incisional hernia Morbid obesity Obstructive sleep apnea on CPAP Paroxysmal atrial fibrillation Surgical History Surgical History History of sinus surgery History of sinus surgery 1994 - 1995 History of ventral hernia repair x3. Hx of hernia repair 2007, 2009 Family History Family History Father Leukemia Sibling Breast cancer Father Cancer Mother Thyroid disorder Sibling Cancer Social History Social History Social History: Surrogate decision maker: Dennis Baldwin, son. Code status: Full code. Smoking status: Never smoker Second hand tobacco smoke exposure: No Alcohol intake: former Substance use: never
[2022-08-05 13:10] LABS: Alveolar/Arterial O2 Gradient 190.6 mmHg; Fractional Inspired Oxygen 70 %; HCO3 ABG 25.6 mEq/l (22.0-26.0); Oxygen Content ABG 17.5 %vol (16.0-22.0); Oxygen Saturation ABG 99.4 % (95.0-100.0); Oxyhemoglobin 97.9 % THb (90.0-100.0); PO2 ABG 240.1 mmHg (80.0-100.0); PO2 FiO2 Ratio Arterial Blood 3.43 %; Total Hemoglobin 12.3 g/dL (12.0-18.0)
[2022-08-05 13:12] LABS: pH ABG 7.223 (7.350-7.450)
[2022-08-05 13:13] LABS: Device NON-INVASIVE VENT; Modified Allen's Test Pass; Non-Invasive Expiratory Pressure 6 CMH2O; Non-Invasive Inspiratory Pressure 12 CMH2O; Non-Invasive Vent Rate 20 /MIN; PCO2 ABG 63.6 mmHg (35.0-45.0); Site Drawn RIGHT RADIAL
[2022-08-05 13:17] LABS: Basophils Percent Auto 0.2 % (0.2-1.2); Hematocrit 35.2 % (42.0-52.0); Hemoglobin 11.6 g/dL (14.0-18.0); Immature Granulocyte Absolute 0.04 K/mm3 (0.00-0.031); Immature Granulocyte Percent A 0.4 % (0-0.5); Lymphocytes Absolute Auto 0.35 K/mm3 (0.9-3.2); Lymphocytes Percent Auto 3.9 % (18.3-44.2); Mean Corpuscular Hemoglobin 33.8 pg (26-34); Mean Corpuscular Volume 102.6 fl (80-100); Mean Platelet Volume 10.3 fl (7.4-10.4); Monocytes Absolute Auto 0.5 K/mm3 (0.1-0.6); Monocytes Percent Auto 5.4 % (2.6-8.5); Neutrophils Absolute Auto 8.1 K/mm3 (1.3-6.7); Neutrophils Percent Auto 90.1 % (45.5-73.1); Platelet Count Result 179 k/mm3 (150-375); Red Blood Count 3.43 M/mm3 (4.6-6.20); Red Cell Distribution Width 13.8 % (11.5-14.5); White Blood Count 8.9 K/mm3 (4.5-10.0)
[2022-08-05 13:24] LABS: INR 2.9; Prothrombin Time 29.2 Seconds (11.1-14.7)
[2022-08-05 13:25] LABS: Partial Thromboplastin Time 41.7 SECONDS (22.3-36.8)
[2022-08-05 13:26] LABS: Alanine Aminotransferase 32 U/L (6-50); Albumin Level 4.3 g/dL (3.5-5.1); Alkaline Phosphatase 91 U/L (38-126); Anion Gap 12 mmol/L (8-16); Aspartate Amino Transferase 45 U/L (17-59); Blood Urea Nitrogen 31 mg/dL (9-20); Calcium 8.9 mg/dL (8.4-10.2); Carbon Dioxide 26 mmol/L (22-30); Chloride 98 mmol/L (98-107); Estimated CRCL calculation 65 ml/min; Estimated Glomerular Filt Rate 41; Glucose 134 mg/dL (65-110); Potassium 4.8 mmol/L (3.4-5.0); Sodium 136 mmol/L (137-145)
[2022-08-05 13:35] LABS: NT Pro B Type Natriuretic Pept 8730 pg/mL (5-100)
[2022-08-05 13:43] LABS: Ovalocytes 1+ (NORMAL); Platelet Estimate Adequate (Adequate); Poikilocytosis 1+ (NORMAL)
--- NOTE | 2022-08-05 13:45 | PC.NURSE ---
pt conversing with family while on bipap
[2022-08-05 13:48] LABS: Schistocytes 1+ (NORMAL)
[2022-08-05 13:58] LABS: Influenza A QL RT-PCR Negative (Negative); Influenza B QL RT-PCR Negative (Negative); SARS-CoV-2 RNA PCR Negative
[2022-08-05 16:47] LABS: Alveolar/Arterial O2 Gradient 157.6 mmHg; Base Excess ABG -1.7 mEq/l (+/-2.0); Carboxyhemoglobin 0.6 % THb (0-2.0); Fractional Inspired Oxygen 50 %; HCO3 ABG 26.8 mEq/l (22.0-26.0); Methemoglobin ABG 0.1 %THb (0-1.5); Oxygen Content ABG 16.6 %vol (16.0-22.0); Oxygen Saturation ABG 97.9 % (95.0-100.0); Oxyhemoglobin 96.6 % THb (90.0-100.0); PO2 ABG 126.8 mmHg (80.0-100.0); PO2 FiO2 Ratio Arterial Blood 2.54 %; Reduced Hemoglobin 2.7 %THb (0-5.0); Total Hemoglobin 12.1 g/dL (12.0-18.0)
[2022-08-05 16:50] LABS: Device NON-INVASIVE VENT; Modified Allen's Test Pass; PCO2 ABG 64.1 mmHg (35.0-45.0); Site Drawn RIGHT RADIAL; pH ABG 7.239 (7.350-7.450)
[2022-08-05 16:51] LABS: Non-Invasive Expiratory Pressure 6 CMH2O; Non-Invasive Inspiratory Pressure 12 CMH2O; Non-Invasive Vent Rate 20 /MIN
--- NOTE | 2022-08-05 17:30 | PM.IMHP ---
H&P: HPI History of Present Illness Date/Time: 08/05/22 17:30 Chief Complaint: Shortness of breath. Narrative: This is a pleasant 61-year-old male with paroxysmal atrial fibrillation on long-term anticoagulation, congestive heart failure, obstructive sleep apnea, chronic respiratory failure on 4 liters nasal cannula, morbid obesity, hypothyroidism, and history of DVT and pulmonary embolism who presented to the emergency department for evaluation shortness of breath. He endorses chronic, mild shortness of breath with exertion however it has been much worse the last several days. He also reports intermittent chills and sweats, nonproductive cough, wheezing, sensations of racing heart, decreased appetite, and 3 pillow orthopnea. His breathing was much worse this morning and he called EMS and on their arrival his SpO2 was around 90% on his usual 4 liters. He was placed on CPAP in transition to BiPAP on arrival to the ER due to work of breathing and elevated pCO2 on ABG. He is resting comfortably on the BiPAP at this time and has no specific complaints. He denies fever, cold and flu symptoms, sick contacts, chest pain, pleuritic pain, vomiting, diarrhea, and lower extremity edema. Review of Systems Review of Systems: Twelve systems were reviewed and are negative except for as per HPI. [facility] Past Medical History Medical History (Updated 08/05/22 @ 22:38 by Julia Costa PA-C) Anxiety Arthritis Chronic anemia Chronic anticoagulation Chronic kidney disease, stage 3 Chronic respiratory failure with hypoxia, on home oxygen therapy Congestive heart failure Ejection fraction was about 30% on echocardiogram in April 2014. Current use of assisted anticoagulation Dyslipidemia Gastroesophageal reflux disease Heart disease Follows with Dr ePrez - [facility] Heart failure with preserved ejection fraction History of deep venous thrombosis History of venous thromboembolism Hx of pulmonary embolus x3, taking Xarelto Hypertension Hypothyroidism Incisional hernia Morbid obesity Obstructive sleep apnea on CPAP Obstructive sleep apnea on CPAP Paroxysmal atrial fibrillation Persistent atrial fibrillation Surgical History Surgical History (Updated 08/05/22 @ 22:33 by Julia Costa PA-C) History of sinus surgery History of ventral hernia repair x3. Hx of hernia repair 2007, 2009 Family History Family History Father Leukemia Sibling Breast cancer Father Cancer Mother Thyroid disorder Sibling Cancer Social History Social History (Updated 08/05/22 @ 22:34 by Julia Costa PA-C) Social History: Surrogate decision maker: Dennis Baldwin, son. Code status: Full code. Smoking status: Never smoker Second hand tobacco smoke exposure: No Alcohol intake: former Substance use: never Substance use type: does not use Lack of Transportation: No Lack of Food: Never True Current Housing: I Have Housing Concerned About Future Housing: No Difficulty Paying Gas/Electric Bills: No Difficulty Paying for Meds: No Currently Unemployed: No Education: Decline to Answer Difficulty w/ Childcare or Family Care: No Additional living arrangements comments: Lives in his own home in [place]. Additional occupation/education comments: disabled Spiritual care concerns: No Meds Home Medications and Allergies Home Medications Medication Instructions Recorded Confirmed Type carvedilol 25 mg tablet 25 mg PO Q12H 10/04/20 08/05/22 History furosemide 40 mg tablet 40 mg PO BID 10/04/20 08/05/22 History losartan 100 mg tablet 100 mg PO DAILY 10/04/20 08/05/22 History magnesium oxide 400 mg PO DAILY 10/04/20 08/05/22 History rivaroxaban 15 mg tablet (Xarelto) 15 mg PO DAILY 10/04/20 08/05/22 History atorvastatin 80 mg tablet 80 mg PO QHS 05/29/21 08/05/22 History spironolactone 25 mg tablet 12.5 mg PO DAILY 11/27/21
[2022-08-05] MEDS: ALBUTEROL SULFATE NEB 2.5 MG/3 ML INH 5 MG INHALATION (19:34)
--- NOTE | 2022-08-05 20:48 | ADMGEN ---
This patient, Omar Baldwin, was admitted to IMU Room 212-01 at 2044. Patient/family oriented to hospital policies and general routines including ID bracelet, bed and alarms, visiting hours, pain management, procedures, bathroom and other care routines, personal items, smoking policy, room service/diet, and visiting hours. Information on how to activate the Rapid Response Team has been discussed. Patient/Family are encouraged to report perceived risks to care and to ask questions if they do not understand what they are told or what they should do.
[2022-08-05] MEDS: carvediloL 25 MG TABLET PO (23:23)
[2022-08-05] MEDS: AMOXICILLIN/CLAVULANATE K 875-125 MG TAB 1 TABLET PO (23:23)
[2022-08-05] MEDS: ATORVASTATIN 40 MG TABLET 80 MG PO (23:23)
[2022-08-05] MEDS: FUROSEMIDE INJ 100 MG/10 ML VIAL 80 MG IV PUSH (23:24)
[2022-08-06] VITALS (26 sets, daily range): BP systolic 78–122; BP diastolic 38–89; PULSE 73–110; RESP 21–41; TEMP 36.4–37.9; O2SAT 90–100
[2022-08-06] MEDS: MORPHINE SULFATE (*CRX) 4 MG/ML INJ IV PUSH (00:10)
[2022-08-06] MEDS: LORazepam INJ (*CRX) 2 MG/ML VIAL 1 MG IV PUSH (00:11)
[2022-08-06 00:12] LABS: Base Excess ABG -1.2 mEq/l (+/-2.0); Carboxyhemoglobin 0.3 % THb (0-2.0); Fractional Inspired Oxygen 45 %; HCO3 ABG 26.7 mEq/l (22.0-26.0); Methemoglobin ABG 0.2 %THb (0-1.5); Oxygen Content ABG 16.1 %vol (16.0-22.0); Oxygen Saturation ABG 95.8 % (95.0-100.0); Oxyhemoglobin 94.2 % THb (90.0-100.0); PCO2 ABG 59.9 mmHg (35.0-45.0); PO2 ABG 91.7 mmHg (80.0-100.0); PO2 FiO2 Ratio Arterial Blood 2.04 %; Reduced Hemoglobin 5.3 %THb (0-5.0); Total Hemoglobin 12.1 g/dL (12.0-18.0)
[2022-08-06 00:14] LABS: Device NON-INVASIVE VENT; Modified Allen's Test Pass; Non-Invasive Expiratory Pressure 8 CMH2O; Non-Invasive Inspiratory Pressure 18 CMH2O; Non-Invasive Vent Rate 20 /MIN; Site Drawn RIGHT RADIAL; pH ABG 7.267 (7.350-7.450)
[2022-08-06] MEDS: ALBUTEROL SULFATE NEB 2.5 MG/3 ML INH 5 MG INHALATION ×3 (03:15→21:12)
[2022-08-06 05:10] LABS: Hemoglobin 10.3 g/dL (14.0-18.0); Mean Corpuscular HGB Conc 32.2 g/dl (32-36); Mean Corpuscular Volume 102.6 fl (80-100); Mean Platelet Volume 10.3 fl (7.4-10.4); Platelet Count Result 174 k/mm3 (150-375); Red Blood Count 3.12 M/mm3 (4.6-6.20); Red Cell Distribution Width 13.8 % (11.5-14.5); White Blood Count 9.5 K/mm3 (4.5-10.0)
[2022-08-06 05:16] LABS: Alanine Aminotransferase 27 U/L (6-50); Albumin Level 3.8 g/dL (3.5-5.1); Alkaline Phosphatase 65 U/L (38-126); Anion Gap 8 mmol/L (8-16); Aspartate Amino Transferase 42 U/L (17-59); Bilirubin,Total 0.6 mg/dL (0.2-1.3); Blood Urea Nitrogen 39 mg/dL (9-20); Calcium 8.4 mg/dL (8.4-10.2); Carbon Dioxide 30 mmol/L (22-30); Chloride 95 mmol/L (98-107); Estimated CRCL calculation 63 ml/min; Estimated Glomerular Filt Rate 41; Glucose 111 mg/dL (65-110); Magnesium 2.3 mg/dL (1.6-2.3); Potassium 4.8 mmol/L (3.4-5.0); Sodium 133 mmol/L (137-145)
[2022-08-06] MEDS: LEVOTHYROXINE SODIUM 25 MCG TABLET PO (05:21)
[2022-08-06] MEDS: AMOXICILLIN/CLAVULANATE K 875-125 MG TAB 1 TABLET PO (08:44)
[2022-08-06] MEDS: carvediloL 25 MG TABLET PO (08:44)
[2022-08-06] MEDS: CHOLECALCIFEROL 1,000 UNITS TABLET 2000 UNITS PO (08:44)
[2022-08-06] MEDS: MAGNESIUM OXIDE 400 MG TABLET PO (08:45)
[2022-08-06] MEDS: FUROSEMIDE INJ 40 MG/4 ML VIAL IV PUSH ×2 (08:45→17:21)
[2022-08-06] MEDS: SPIRONOLACTONE 12.5 MG TABLET PO (08:45)
[2022-08-06] MEDS: OPTI-GEN TAB 1 TABLET PO (08:45)
[2022-08-06] MEDS: FLUTICASONE PROPIONATE 0.05% NA SPR 16 GM BTL (*BKC) 2 SPRAY NASAL (08:45)
[2022-08-06] MEDS: LOSARTAN POTASSIUM 100 MG TABLET PO (08:45)
--- NOTE | 2022-08-06 16:31 | PM.IMPN ---
Progress Note: A&P Assessment and Plan (1) Acute respiratory failure with hypoxia and hypercarbia: Code(s): J96.01 - Acute respiratory failure with hypoxia; J96.02 - Acute respiratory failure with hypercapnia Status: Acute Assessment and Plan: The patient presented to the emergency department via EMS from home for evaluation of shortness of breath over the last several days. His SpO2 was in the low 90s on his usual 4 liters. He was placed on BiPAP and ABG on arrival 7./240 on bipap. He states compliance with his home CPAP and he had recent sleep study on 06/25/21. Echo Sep 2020 showing EF 50-55% with normal diastolic function (hx of having low EF). CXR of admission showing improving bibasilar infiltrates edema vs PNA. Concern for CHF exacerbation so IV Lasix given but now HoTN. Normal WBC but low grade fever noted. Hold Lasix and anti-HTN medications. FLuid bolus given. Wean off BiPAP while awake. Consider PNA as etiology of his resp failure. BCx NGTD. Change to IV abx. (2) Acute exacerbation of congestive heart failure: Code(s): I50.9 - Heart failure, unspecified Status: Acute Assessment and Plan: As above. Repeat Echo. (3) Obstructive sleep apnea on CPAP: Code(s): G47.33 - Obstructive sleep apnea (adult) (pediatric); Z99.89 - Dependence on other enabling machines and devices Status: Acute Assessment and Plan: As above. Wean off BiPAP as tolerated. Check ABG in the morning. (4) Persistent atrial fibrillation: Code(s): I48.19 - Other persistent atrial fibrillation Status: Acute Assessment and Plan: Patient with chronic AFib. Rate controlled. Hold Coreg but resume once BP better. Continue Xarelto. (5) Chronic kidney disease, stage 3: Code(s): N18.30 - Chronic kidney disease, stage 3 unspecified Status: Acute Assessment and Plan: Cr elevated at 1.7 on admission and unchanged today. May worsen related to the HoTN. Monitor UOP. Follow closely. (6) Hypertension: Qualifiers: Hypertension type: essential hypertension Qualified Code(s): I10 - Essential (primary) hypertension Code(s): I10 - Essential (primary) hypertension Status: Acute Assessment and Plan: As above. Holding anti-HTN medications. Subjective Date/time seen: 08/06/22 16:31 Interval history: 61yo male with chronic resp failure, YEN and pAFib here for shortness of breath. Andres has sergei on BiPAP most of the day today. He came off for breakfast. He wears 2L O2 at home. He is compliant with his CPAP. last sleep study was 1-2 years ago. Has a cough productive of white sputum. No weight gain or pedal edema recently. SOB better now. Takes Xarelto chronically. Nonsmoker Exam Narrative: Tm 100.3 98.0 81/46 85 23 98% bipap Gen - NARD resting comforatbly with bipap Chest - bibasilar inspiratory crackles, nml RR CV - irregularly irregular S1/S2; Tele showing AFib controlled rate Abd - Soft, obese, NT - [place] secured draining clear yellow urine Ext - No pedal edema Neuro - Alert and appropriate Psych - Nml mood and affect Skin - Warm and dry Objective Data Vital Signs Vital Signs: Vital Signs - 24 hr 08/05/22 16:55 08/05/22 17:31 08/05/22 16:45 Temperature Pulse Rate 74 74 Respiratory Rate 29 H 16 32 H Blood Pressure 135/75 160/88 H Pulse Oximetry 100 100 100 Oxygen Delivery BiPAP Fraction of Inspired Oxygen 08/05/22 19:40 08/05/22 19:41 08/05/22 19:43 Temperature Pulse Rate 86 82 Respiratory Rate 35 H 35 H Blood Pressure Pulse Oximetry 98 98 Oxygen Delivery BiPAP Autopap Fraction of Inspired Oxygen 45 08/05/22 19:45 08/05/22 20:45 08/05/22 20:46 Temperature 97.1 F L Pulse Rate 88 90 88 Respiratory Rate 33 H 41 H 34 H Blood Pressure 160/90 H Pulse Oximetry 100 98 Oxygen Delivery BiPAP Fraction of Inspired Oxygen 08/05/22 21:00 08/05/22 23:23 08/05
[2022-08-06] MEDS: RIVAROXABAN 15 MG TABLET PO (17:21)
[2022-08-06] MEDS: SODIUM CHLORIDE 0.9% IV 500 ML 999 ML IV CONT ×2 (18:27→19:57)
[2022-08-06] MEDS: ATORVASTATIN 40 MG TABLET 80 MG PO (20:00)
[2022-08-07] VITALS (23 sets, daily range): BP systolic 74–102; BP diastolic 45–68; PULSE 60–82; RESP 20–28; TEMP 35.8–36.8; O2SAT 94–100
--- NOTE | 2022-08-07 | ECHO_ITS ---
Patient Info Name: Omar Baldwin Age: 61 years : 1960 Gender: Male Ht: 70 in Wt: 371 lbs BSA: 2.98 m2 HR: 64 bpm BP: 94 / 46 mmHg Heart Rhythm: Sinus Rhythm Technical Quality: Fair Exam Date: 08/07/2022 7:52 AM Exam Location: [facility] Pulmonary Patient Status: Inpatient Admit Date: 08/05/2022 Staff Ordering Physician: Robert Smith MD Appraisal Technician: Tanvi López RDCS Attending Provider: Carol Swan DO Exam Type: CA echo dop color flow w con Study Info Indications - chf Complete two-dimensional, color flow and Doppler transthoracic echocardiogram is performed with contrast to opacify the left ventricle and to improve the deliniation of the left ventricle endocardial borders. Contrast/Agitated Saline Contrast/Ag. Saline: Definity Amount: 3.00 ml Administered By: Tanvi López RDCS Existing IV Access: Yes IV Access Condition: patent with no signs of infiltration Summary 1. Left ventricular chamber dimension is normal. 2. Definity contrast administered improved wall motion interpretation. 3. Left ventricular systolic function is normal, estimated at 65-70%. 4. The left ventricular diastolic function is abnormal. 5. E/e' 10 is mildly elevated. 6. Left atrial chamber dimension is mildly enlarged. 7. There is trace tricuspid valve regurgitation. 8. Mild pulmonary hypertension, estimated pulmonary arterial systolic pressure is 41 mmHg. Left Ventricle E/e' 10 is mildly elevated. Definity contrast administered improved wall motion interpretation. Left ventricular chamber dimension is normal. Left ventricular systolic function is normal, estimated at 65-70%. The left ventricular diastolic function is abnormal. Right Ventricle Right ventricular systolic function is normal and with normal TAPSE 2.3 cm. Right ventricular chamber dimension is normal. Left Atria Left atrial chamber dimension is mildly enlarged. Right Atria Right atrial chamber dimension is normal. Aortic Valve The aortic valve is trileaflet. There is no aortic valve stenosis. There is no aortic valve regurgitation. Pulmonic Valve There is no pulmonic regurgitation. Mitral Valve There is no mitral valve stenosis. There is no mitral valve regurgitation. Tricuspid Valve There is trace tricuspid valve regurgitation. Mild pulmonary hypertension, estimated pulmonary arterial systolic pressure is 41 mmHg. Pericardium/Pleural There is no pericardial effusion. Inferior Vena Cava Normal inferior vena cava with >50% collapse upon inspiration consistent with normal right atrial pressure, 5 mmHg. Aorta The aortic root size at the sinus of Valsalva is normal. Left Ventricular Outflow Tract Name Value Normal LVOT 2D LVOT Diameter 2.00 cm LVOT Doppler LVOT Peak Gradient 3 mmHg LVOT Mean Gradient 1 mmHg LVOT VTI 14.13 cm LVOT VTI/AV VTI Ratio 0.71 LVOT Stroke Volume 44.40 ml LVOT CO
[2022-08-07 05:10] LABS: Basophils Percent Auto 0.4 % (0.2-1.2); Eosinophils Absolute Auto 0.1 K/mm3 (0-0.3); Eosinophils Percent Auto 0.8 % (0-4.4); Hematocrit 31.2 % (42.0-52.0); Hemoglobin 9.9 g/dL (14.0-18.0); Immature Granulocyte Absolute 0.04 K/mm3 (0.00-0.031); Immature Granulocyte Percent A 0.4 % (0-0.5); Lymphocytes Percent Auto 15.7 % (18.3-44.2); Mean Corpuscular HGB Conc 31.7 g/dl (32-36); Mean Corpuscular Hemoglobin 33.3 pg (26-34); Mean Corpuscular Volume 105.1 fl (80-100); Mean Platelet Volume 10.8 fl (7.4-10.4); Monocytes Absolute Auto 1.7 K/mm3 (0.1-0.6); Monocytes Percent Auto 17.5 % (2.6-8.5); Neutrophils Absolute Auto 6.2 K/mm3 (1.3-6.7); Neutrophils Percent Auto 65.2 % (45.5-73.1); Platelet Count Result 157 k/mm3 (150-375); Red Blood Count 2.97 M/mm3 (4.6-6.20); White Blood Count 9.6 K/mm3 (4.5-10.0)
[2022-08-07 05:25] LABS: Albumin Level 3.4 g/dL (3.5-5.1); Anion Gap 7 mmol/L (8-16); Blood Urea Nitrogen 56 mg/dL (9-20); Calcium 8.1 mg/dL (8.4-10.2); Carbon Dioxide 27 mmol/L (22-30); Chloride 100 mmol/L (98-107); Estimated CRCL calculation 39 ml/min; Estimated Glomerular Filt Rate 23; Glucose 103 mg/dL (65-110); Magnesium 2.6 mg/dL (1.6-2.3); Phosphorus 3.5 mg/dL (2.5-4.5); Potassium 4.1 mmol/L (3.4-5.0); Sodium 134 mmol/L (137-145)
[2022-08-07 05:25] LABS: Alveolar/Arterial O2 Gradient 103.3 mmHg; Base Excess ABG 2.6 mEq/l (+/-2.0); Fractional Inspired Oxygen 35 %; Oxygen Content ABG 17.9 %vol (16.0-22.0); Oxygen Saturation ABG 94.4 % (95.0-100.0); Oxyhemoglobin 94.2 % THb (90.0-100.0); PCO2 ABG 58.7 mmHg (35.0-45.0); PO2 FiO2 Ratio Arterial Blood 2.23 %; Total Hemoglobin 13.5 g/dL (12.0-18.0); pH ABG 7.326 (7.350-7.450)
[2022-08-07 05:26] LABS: Device NON-INVASIVE VENT; Modified Allen's Test Pass; Non-Invasive Expiratory Pressure 8 CMH2O; Non-Invasive Inspiratory Pressure 18 CMH2O; Non-Invasive Vent Rate 20 /MIN; Site Drawn RIGHT RADIAL
[2022-08-07 06:16] LABS: Anisocytosis 1+ (NORMAL); Platelet Estimate Adequate (Adequate)
[2022-08-07 06:17] LABS: Schistocytes None Seen (NORMAL)
[2022-08-07 06:18] LABS: Hypochromasia 1+ (NORMAL)
[2022-08-07 06:28] LABS: Folic Acid 16.1 ng/mL (2.76->20)
[2022-08-07] MEDS: LEVOTHYROXINE SODIUM 25 MCG TABLET PO (06:48)
[2022-08-07] MEDS: ALBUTEROL SULFATE NEB 2.5 MG/3 ML INH 5 MG INHALATION ×3 (08:08→20:57)
[2022-08-07] MEDS: PERFLUTREN LIPID MICROSPHERES 1.5 ML VIAL DILUTED TO 10 ML TOTAL VOLUME IV PUSH (08:15)
[2022-08-07] MEDS: FLUTICASONE PROPIONATE 0.05% NA SPR 16 GM BTL (*BKC) 2 SPRAY NASAL (09:52)
[2022-08-07] MEDS: MAGNESIUM OXIDE 400 MG TABLET PO (09:53)
[2022-08-07] MEDS: CHOLECALCIFEROL 1,000 UNITS TABLET 2000 UNITS PO (09:53)
[2022-08-07] MEDS: OPTI-GEN TAB 1 TABLET PO (09:53)
--- NOTE | 2022-08-07 14:00 | PM.IMPN ---
Progress Note: A&P Assessment and Plan (1) Acute respiratory failure with hypoxia and hypercarbia: Code(s): J96.01 - Acute respiratory failure with hypoxia; J96.02 - Acute respiratory failure with hypercapnia Status: Acute Assessment and Plan: The patient here for SOB. His SpO2 was in the low 90s on 4 liters (normally on 2L chronically). -on BiPAP with ABG on arrival 7./240 on bipap -compliant with his home CPAP and recent sleep study on 06/25/21. -Echo EF 50-55% with diastolic dysfunction (hx of having low EF). -CXR of admission showing improving bibasilar infiltrates edema vs PNA. -Concern for CHF exacerbation so IV Lasix given but became HoTN so IV fluid and anti-HTN meds stopped -Normal WBC but low grade fever so abx started. BCx NGTD. Repeat CXR clear. Wean off BiPAP while awake. Pulmonary consult. Continue Albuterol. Add steroids. Adjust BiPAP settings. (2) Acute exacerbation of congestive heart failure: Code(s): I50.9 - Heart failure, unspecified Status: Acute Assessment and Plan: Acute on chronic dioastolic CHF. As above. Resolved. (3) Obstructive sleep apnea on CPAP: Code(s): G47.33 - Obstructive sleep apnea (adult) (pediatric); Z99.89 - Dependence on other enabling machines and devices Status: Acute Assessment and Plan: ABG noted. As above. Wean off BiPAP as tolerated. Check ABG in the morning. (4) Persistent atrial fibrillation: Code(s): I48.19 - Other persistent atrial fibrillation Status: Acute Assessment and Plan: Patient with chronic AFib. Rate controlled. Hold Coreg but resume once BP better. Continue Xarelto. (5) Chronic kidney disease, stage 3: Code(s): N18.30 - Chronic kidney disease, stage 3 unspecified Status: Acute Assessment and Plan: Cr elevated at 1.7 on admission but now with ATN with worsening Cr today from the HoTN. Monitor UOP. Follow closely. Start IV fluids. Check urine studies. Check renal US (6) Hypertension: Qualifiers: Hypertension type: essential hypertension Qualified Code(s): I10 - Essential (primary) hypertension Code(s): I10 - Essential (primary) hypertension Status: Acute Assessment and Plan: As above. Holding anti-HTN medications. Subjective Date/time seen: 08/07/22 14:00 Interval history: 61yo male with chronic resp failure, YEN and pAFib here for shortness of breath. Patient was able to come off the BiPAP for breakfast this morning. He says he feels more short of breath at rest but it back on after he eats. He has a productive cough. No chest pain. No odynophagia or dysphagia. He does feel constipated. Slight nausea. Exam Narrative: AF 96.4 84/53 77 20 97% bipap Gen - NARD resting comfortably with bipap in place Chest -expiratory diffuse rhonchi CV - irregularly irregular S1/S2; Tele showing AFib controlled rate Abd - Soft, obese, NT - [place] secured draining clear yellow urine Ext - No pedal edema Psych - Nml mood and affect Skin - Warm and dry Objective Data Vital Signs Vital Signs: Vital Signs - 24 hr 08/06/22 15:49 08/06/22 16:00 08/06/22 14:10 Temperature Pulse Rate 90 76 Respiratory Rate 25 H Blood Pressure Pulse Oximetry 94 Oxygen Delivery BiPAP Fraction of Inspired Oxygen 40 08/06/22 16:00 08/06/22 18:00 08/06/22 18:10 Temperature 98.0 F Pulse Rate 82 85 Respiratory Rate 23 H Blood Pressure 81/46 L 78/38 L Pulse Oximetry 98 Oxygen Delivery Fraction of Inspired Oxygen 08/06/22 19:10 08/06/22 21:16 08/06/22 21:17 Temperature Pulse Rate 79 79 Respiratory Rate 23 H 23 H Blood Pressure 82/38 L Pulse Oximetry 97 Oxygen Delivery BiPAP Fraction of Inspired Oxygen 08/06/22 21:10 08/06/22 20:00 08/06/22 20:00 Temperature 97.5 F L Pulse Rate 79 84 Respiratory Rate 21 H Blood Pressure 105/58 L Pulse Oximetry 97 100
[2022-08-07 16:27] LABS: CRP 6.5 mg/dL (<1.0); Creatine Kinase 82 U/L (55-170)
[2022-08-07 16:31] LABS: Complement C3 100 mg/dL (88-165)
[2022-08-07] MEDS: SODIUM CHLORIDE 0.9% IV 1,000 ML 100 ML IV CONT (16:49)
[2022-08-07] MEDS: BISACODYL 10 MG SUPPOSITORY RECTAL (16:49)
[2022-08-07] MEDS: RIVAROXABAN 15 MG TABLET PO (16:50)
[2022-08-07] MEDS: methylPREDNISolone SOD SUCC 125 MG VIAL 60 MG IV PUSH ×2 (17:16→23:05)
[2022-08-07] MEDS: ATORVASTATIN 40 MG TABLET 80 MG PO (20:34)
[2022-08-07] MEDS: ACETAMINOPHEN 325 MG TABLET 650 MG PO (20:36)
[2022-08-08] VITALS (18 sets, daily range): BP systolic 103–128; BP diastolic 51–83; PULSE 64–79; RESP 20–24; TEMP 36.2–37.1; O2SAT 91–100
[2022-08-08] MEDS: ALBUTEROL SULFATE NEB 2.5 MG/3 ML INH 5 MG INHALATION ×3 (02:37→15:27)
[2022-08-08 04:44] LABS: Alveolar/Arterial O2 Gradient 75.6 mmHg; Base Excess ABG 3.2 mEq/l (+/-2.0); Fractional Inspired Oxygen 30 %; HCO3 ABG 29.2 mEq/l (22.0-26.0); Oxygen Content ABG 13.7 %vol (16.0-22.0); Oxyhemoglobin 93.9 % THb (90.0-100.0); PCO2 ABG 51.5 mmHg (35.0-45.0); PO2 ABG 77.8 mmHg (80.0-100.0); PO2 FiO2 Ratio Arterial Blood 2.59 %; Total Hemoglobin 10.3 g/dL (12.0-18.0); pH ABG 7.371 (7.350-7.450)
[2022-08-08 04:45] LABS: Device NON-INVASIVE VENT; Modified Allen's Test Pass; Site Drawn LEFT RADIAL
[2022-08-08 04:46] LABS: Non-Invasive Expiratory Pressure 6 CMH2O; Non-Invasive Inspiratory Pressure 18 CMH2O; Non-Invasive Vent Rate 20 /MIN
[2022-08-08 05:24] LABS: Hematocrit 28.8 % (42.0-52.0); Hemoglobin 9.4 g/dL (14.0-18.0); Immature Granulocyte Absolute 0.02 K/mm3 (0.00-0.031); Immature Granulocyte Percent A 0.4 % (0-0.5); Lymphocytes Absolute Auto 0.62 K/mm3 (0.9-3.2); Mean Corpuscular HGB Conc 32.6 g/dl (32-36); Mean Corpuscular Hemoglobin 32.9 pg (26-34); Mean Corpuscular Volume 100.7 fl (80-100); Monocytes Absolute Auto 0.1 K/mm3 (0.1-0.6); Monocytes Percent Auto 2.7 % (2.6-8.5); Neutrophils Absolute Auto 4.4 K/mm3 (1.3-6.7); Neutrophils Percent Auto 84.9 % (45.5-73.1); Platelet Count Result 151 k/mm3 (150-375); Red Blood Count 2.86 M/mm3 (4.6-6.20); Red Cell Distribution Width 13.5 % (11.5-14.5); White Blood Count 5.2 K/mm3 (4.5-10.0)
[2022-08-08 05:37] LABS: Potassium 4.4 mmol/L (3.4-5.0)
[2022-08-08 05:43] LABS: Albumin Level 3.4 g/dL (3.5-5.1); Anion Gap 2 mmol/L (8-16); Blood Urea Nitrogen 55 mg/dL (9-20); Calcium 8.5 mg/dL (8.4-10.2); Carbon Dioxide 31 mmol/L (22-30); Chloride 99 mmol/L (98-107); Estimated CRCL calculation 61 ml/min; Estimated Glomerular Filt Rate 38; Glucose 158 mg/dL (65-110); Magnesium 2.7 mg/dL (1.6-2.3); Phosphorus 2.3 mg/dL (2.5-4.5); Sodium 132 mmol/L (137-145)
[2022-08-08] MEDS: LEVOTHYROXINE SODIUM 25 MCG TABLET PO (06:04)
[2022-08-08] MEDS: methylPREDNISolone SOD SUCC 125 MG VIAL 60 MG IV PUSH ×3 (06:04→17:07)
--- NOTE | 2022-08-08 09:56 | PM.IMPN ---
Progress Note: A&P Assessment and Plan (1) Acute respiratory failure with hypoxia and hypercarbia: Code(s): J96.01 - Acute respiratory failure with hypoxia; J96.02 - Acute respiratory failure with hypercapnia Status: Acute Assessment and Plan: The patient here for SOB. His SpO2 was in the low 90s on 4 liters (he is normally on 2L chronically). Compliant with his home CPAP and recent sleep study on 06/25/21. -on BiPAP with ABG on arrival 7./240 on bipap -COVID and influenza negative. -Echo EF 65-70% with diastolic dysfunction and mild pHTN (hx of having low EF). -CXR of admission showing improving bibasilar infiltrates edema vs PNA. -Concern for CHF exacerbation so IV Lasix given but became HoTN so IV lasix stopped, anti-HTN meds held and IV fluids given -Normal WBC but low grade fever so abx started. BCx NGTD. Repeat CXR clear. -Steroids added 08/07 with improvement -Wean off BiPAP while awake. -Continue Albuterol, abx and steroids (2) Acute exacerbation of congestive heart failure: Code(s): I50.9 - Heart failure, unspecified Status: Acute Assessment and Plan: Acute on chronic diastolic CHF. Echo as above. Resolved. (3) Obstructive sleep apnea on CPAP: Code(s): G47.33 - Obstructive sleep apnea (adult) (pediatric); Z99.89 - Dependence on other enabling machines and devices Status: Acute Assessment and Plan: ABG noted and improved this morning. As above. Wean off BiPAP as tolerated. (4) Persistent atrial fibrillation: Code(s): I48.19 - Other persistent atrial fibrillation Status: Acute Assessment and Plan: Patient with chronic AFib. Rate controlled. Coreg on hold but resume once BP better. Continue Xarelto. (5) Chronic kidney disease, stage 3: Code(s): N18.30 - Chronic kidney disease, stage 3 unspecified Status: Acute Assessment and Plan: Cr elevated at 1.7 on admission that worsened due to ATN from the HoTN. Given fluids overnight x1L and Cr better today. BP still soft overnight. He is eating better. Renal US normal. [place] in place. Urine studies pending. Monitor UOP. Follow closely. (6) Hypertension: Qualifiers: Hypertension type: essential hypertension Qualified Code(s): I10 - Essential (primary) hypertension Code(s): I10 - Essential (primary) hypertension Status: Acute Assessment and Plan: As above. Holding anti-HTN medications. (7) Chronic respiratory failure with hypoxia, on home oxygen therapy: Code(s): J96.11 - Chronic respiratory failure with hypoxia; Z99.81 - Dependence on supplemental oxygen Status: Acute Assessment and Plan: Patient normally on 2L O2 at home. Wean O2 as tolerated to this goal. Subjective Date/time seen: 08/08/22 09:56 Interval history: 61yo male with chronic resp failure, YEN and pAFib here for shortness of breath. Patient feels better today. Shortness of breath is improved. Eating well. Normal bowel movements. No nausea or vomiting. No chest pain. Cough is persistent productive of clear sputum. Exam Narrative: AF 98.8 125/78 76 20 99% Gen - NARD siting up in bed Chest -diffuse expiratory coarse wheezing, nml RR CV - irregularly irregular S1/S2; Tele showing AFib controlled rate Abd - Soft, obese, NT - [place] secured draining clear yellow urine Ext - no pedal edema Psych - Nml mood and affect Skin - Warm and dry Objective Data Vital Signs Vital Signs: Vital Signs - 24 hr 08/07/22 12:00 08/07/22 10:00 08/07/22 12:00 Temperature 96.4 F L Pulse Rate 73 75 77 Respiratory Rate 20 Blood Pressure 84/53 L Pulse Oximetry 97 Oxygen Delivery Fraction of Inspired Oxygen 08/07/22 14:01 08/07/22 14:02 08/07/22 14:11 Temperature Pulse Rate 73 73 79 Respiratory Rate 20 20 20 Blood Pressure Pulse Oximetry 99 Oxygen Delivery BiPAP Fraction of Inspired Oxygen
[2022-08-08] MEDS: FLUTICASONE PROPIONATE 0.05% NA SPR 16 GM BTL (*BKC) 2 SPRAY NASAL (10:02)
[2022-08-08] MEDS: OPTI-GEN TAB 1 TABLET PO (10:02)
[2022-08-08] MEDS: MAGNESIUM OXIDE 400 MG TABLET PO (10:02)
[2022-08-08] MEDS: CHOLECALCIFEROL 1,000 UNITS TABLET 2000 UNITS PO (10:02)
[2022-08-08 16:39] LABS: Creatinine Urine 108.3 mg/dL
[2022-08-08 16:44] LABS: Appearance Urine Slightly Cloudy (Clear); Bilirubin Urine Negative (Negative); Blood Urine 2+ (Negative); Color Urine Yellow (Yellow); Glucose Urine UA Trace mg/dL (Negative); Ketones Urine Trace mg/dL (Negative); Leukocyte Esterase Ur 1+ LEU/UL (NEGATIVE); Nitrate Urine Negative (Negative); Protein Urine 1+ mg/dL (Negative); Urobilinogen Urine 0.2 mg/dL (<2.0)
[2022-08-08 16:47] LABS: Bacteria Urine Trace /hpf; Mucus Urine Rare /lpf; RBC Urine 21-50 /hpf (0-2); Squamous Epithelial Cell Urine Rare /hpf (Few); WBC Urine 16-20 /hpf (0-3)
[2022-08-08 16:48] LABS: Add Urine Microscopic? YES
[2022-08-08] MEDS: RIVAROXABAN 15 MG TABLET PO (17:07)
[2022-08-08 17:22] LABS: Eosinophil Urine None Seen % (None Seen)
[2022-08-08 17:40] LABS: Sodium Urine Random < 5 meq/L
[2022-08-08] MEDS: ATORVASTATIN 40 MG TABLET 80 MG PO (21:05)
[2022-08-08] MEDS: ACETAMINOPHEN 325 MG TABLET 650 MG PO (21:11)
--- NOTE | 2022-08-08 23:07 | PCRCNOTE ---
window of time for administration has passed. see next available administration.
[2022-08-09] VITALS (24 sets, daily range): BP systolic 107–136; BP diastolic 64–82; PULSE 69–96; RESP 12–26; TEMP 35.7–36.8; O2SAT 93–100
[2022-08-09] MEDS: methylPREDNISolone SOD SUCC 125 MG VIAL 60 MG IV PUSH ×4 (00:58→17:51)
[2022-08-09] MEDS: ALBUTEROL SULFATE NEB 2.5 MG/3 ML INH 5 MG INHALATION ×4 (02:13→20:22)
--- NOTE | 2022-08-09 04:40 | PC.NURSE ---
Patient had a small BM with bright red and maroon colored stool. He stated he has been having these types of stools for the past week, but has not informed anyone of the episodes. A cbc blood test is scheduled for the am. Will continue to monitor.
[2022-08-09 06:27] LABS: Hematocrit 27.3 % (42.0-52.0); Hemoglobin 9.1 g/dL (14.0-18.0); Mean Corpuscular HGB Conc 33.3 g/dl (32-36); Mean Corpuscular Volume 98.9 fl (80-100); Mean Platelet Volume 11.4 fl (7.4-10.4); Platelet Count Result 177 k/mm3 (150-375); Red Blood Count 2.76 M/mm3 (4.6-6.20); Red Cell Distribution Width 13.4 % (11.5-14.5); White Blood Count 11.8 K/mm3 (4.5-10.0)
[2022-08-09] MEDS: LEVOTHYROXINE SODIUM 25 MCG TABLET PO (06:47)
[2022-08-09 06:49] LABS: Albumin Level 3.3 g/dL (3.5-5.1); Anion Gap 4 mmol/L (8-16); Blood Urea Nitrogen 48 mg/dL (9-20); Calcium 8.5 mg/dL (8.4-10.2); Carbon Dioxide 28 mmol/L (22-30); Chloride 102 mmol/L (98-107); Estimated CRCL calculation 89 ml/min; Estimated Glomerular Filt Rate > 60; Glucose 148 mg/dL (65-110); Phosphorus 2.1 mg/dL (2.5-4.5); Potassium 4.2 mmol/L (3.4-5.0); Sodium 134 mmol/L (137-145)
[2022-08-09 08:31] LABS: Vancomycin Trough 27.1 ug/mL (10.0-20.0)
[2022-08-09] MEDS: carvediloL 6.25 MG TABLET PO ×2 (09:26→21:08)
[2022-08-09] MEDS: POTASSIUM/PHOSPHORUS/SODIUM 1.5 GM PACKET 1 PACKET PO (09:27)
[2022-08-09] MEDS: CHOLECALCIFEROL 1,000 UNITS TABLET 2000 UNITS PO (09:28)
[2022-08-09] MEDS: MAGNESIUM OXIDE 400 MG TABLET PO (09:28)
[2022-08-09] MEDS: OPTI-GEN TAB 1 TABLET PO (09:28)
[2022-08-09] MEDS: FLUTICASONE PROPIONATE 0.05% NA SPR 16 GM BTL (*BKC) 2 SPRAY NASAL (09:29)
[2022-08-09] MEDS: RIVAROXABAN 15 MG TABLET PO (17:51)
--- NOTE | 2022-08-09 18:47 | PM.IMPN ---
Progress Note: A&P Assessment and Plan (1) Acute respiratory failure with hypoxia and hypercarbia: Code(s): J96.01 - Acute respiratory failure with hypoxia; J96.02 - Acute respiratory failure with hypercapnia Status: Acute Assessment and Plan: The patient here for SOB. His SpO2 was in the low 90s on 4 liters (he is normally on 2L chronically). Compliant with his home CPAP and recent sleep study on 06/25/21. -on BiPAP with ABG on arrival /240 on bipap -COVID and influenza negative. -Echo EF 65-70% with diastolic dysfunction and mild pHTN (hx of having low EF). -CXR of admission showing improving bibasilar infiltrates edema vs PNA. -Concern for CHF exacerbation so IV Lasix given but became HoTN so IV lasix stopped, anti-HTN meds held and IV fluids given -Normal WBC but low grade fever so abx started. BCx NGTD. Repeat CXR clear. -Steroids added 08/07 with improvement -Able to wean off BiPAP while awake. -Continue Albuterol, abx and steroids -Wean steroids (2) Acute exacerbation of congestive heart failure: Code(s): I50.9 - Heart failure, unspecified Status: Acute Assessment and Plan: Acute on chronic diastolic CHF. Echo as above. Resolved. (3) Obstructive sleep apnea on CPAP: Code(s): G47.33 - Obstructive sleep apnea (adult) (pediatric); Z99.89 - Dependence on other enabling machines and devices Status: Acute Assessment and Plan: ABG noted and improved this morning. As above. Continue BiPAP at night and with naps (4) Persistent atrial fibrillation: Code(s): I48.19 - Other persistent atrial fibrillation Status: Acute Assessment and Plan: Patient with chronic AFib. Rate controlled. Coreg was on hold due to soft BP but will resume at lower dose. Advance to home dose as tolerated. Continue Xarelto. (5) Chronic kidney disease, stage 3: Code(s): N18.30 - Chronic kidney disease, stage 3 unspecified Status: Acute Assessment and Plan: Cr elevated at 1.7 on admission that worsened due to ATN from the HoTN. Given fluids and Cr better today. BP better. He is eating better. Renal US normal. [place] in place. UOP good. Urine studies consistent with pre-renal state. Okay to remove [place] (6) Hypertension: Qualifiers: Hypertension type: essential hypertension Qualified Code(s): I10 - Essential (primary) hypertension Code(s): I10 - Essential (primary) hypertension Status: Acute Assessment and Plan: As above. Holding anti-HTN medications due to HoTN. Resume Coreg as above. (7) Chronic respiratory failure with hypoxia, on home oxygen therapy: Code(s): J96.11 - Chronic respiratory failure with hypoxia; Z99.81 - Dependence on supplemental oxygen Status: Acute Assessment and Plan: Patient normally on 2L O2 at home. Weaned to 2L O2 now. Subjective Date/time seen: 08/09/22 18:47 Interval history: 61yo male with chronic resp failure, YEN and pAFib here for shortness of breath. Patient slept well last night. He was up to the chair. Cough is much better. His ears feel full today Exam Narrative: AF 97.1 124/82 76 12 95% 2L Gen - NARD siting up in chair Chest - improved air exchange with decrease in the diffuse expiratory rhonchi CV - irregularly irregular S1/S2; Tele showing AFib controlled rate but no significant dysrhythmias Abd - Soft, obese, NT - [place] secured draining clear yellow urine Ext - trace pedal edema Psych - Nml mood and affect Skin - Warm and dry Objective Data Vital Signs Vital Signs: Vital Signs - 24 hr 08/08/22 20:00 08/08/22 20:00 08/08/22 20:00 Temperature 97.5 F L Pulse Rate 69 77 Respiratory Rate 20 Blood Pressure 119/83 Pulse Oximetry 100 98 Oxygen Delivery Nasal Cannula Oxygen Flow Rate 4 08/08/22 22:00 08/09/22 00:00 08/09/22 00:00 Temperature 98.1 F Pulse Rate 75 73 77 Respiratory Rate 22 H Blo
[2022-08-09] MEDS: DOXYCYCLINE HYCLATE 100 MG TABLET PO (21:07)
[2022-08-09] MEDS: ATORVASTATIN 40 MG TABLET 80 MG PO (21:07)
[2022-08-09] MEDS: guaiFENesin 200 MG/10 ML UDC PO (21:41)
[2022-08-10] VITALS (21 sets, daily range): BP systolic 113–141; BP diastolic 59–74; PULSE 60–95; RESP 18–24; TEMP 36.2–36.7; O2SAT 87–99
[2022-08-10] MEDS: ALBUTEROL SULFATE NEB 2.5 MG/3 ML INH 5 MG INHALATION ×3 (01:42→14:22)
[2022-08-10] MEDS: LEVOTHYROXINE SODIUM 25 MCG TABLET PO (04:21)
[2022-08-10] MEDS: methylPREDNISolone SOD SUCC 125 MG VIAL 60 MG IV PUSH (04:21)
[2022-08-10 04:31] LABS: Hematocrit 28.5 % (42.0-52.0); Hemoglobin 9.4 g/dL (14.0-18.0); Mean Corpuscular Hemoglobin 32.8 pg (26-34); Mean Corpuscular Volume 99.3 fl (80-100); Mean Platelet Volume 11.2 fl (7.4-10.4); Platelet Count Result 202 k/mm3 (150-375); Red Blood Count 2.87 M/mm3 (4.6-6.20); Red Cell Distribution Width 13.6 % (11.5-14.5); White Blood Count 12.3 K/mm3 (4.5-10.0)
[2022-08-10 04:50] LABS: Albumin Level 3.3 g/dL (3.5-5.1); Anion Gap 4 mmol/L (8-16); Blood Urea Nitrogen 47 mg/dL (9-20); Calcium 8.4 mg/dL (8.4-10.2); Carbon Dioxide 28 mmol/L (22-30); Chloride 100 mmol/L (98-107); Estimated CRCL calculation 89 ml/min; Estimated Glomerular Filt Rate > 60; Glucose 145 mg/dL (65-110); Phosphorus 2.7 mg/dL (2.5-4.5); Potassium 4.2 mmol/L (3.4-5.0); Sodium 132 mmol/L (137-145)
[2022-08-10] MEDS: CHOLECALCIFEROL 1,000 UNITS TABLET 2000 UNITS PO (08:18)
[2022-08-10] MEDS: FLUTICASONE PROPIONATE 0.05% NA SPR 16 GM BTL (*BKC) 2 SPRAY NASAL (08:18)
[2022-08-10] MEDS: OPTI-GEN TAB 1 TABLET PO (08:18)
[2022-08-10] MEDS: DOXYCYCLINE HYCLATE 100 MG TABLET PO (08:19)
[2022-08-10] MEDS: MAGNESIUM OXIDE 400 MG TABLET PO (08:19)
[2022-08-10] MEDS: carvediloL 6.25 MG TABLET PO (08:19)
--- NOTE | 2022-08-10 15:27 | HOMEO2EVAL ---
Evaluation was performed at [facility] Home Oxygen Evaluation RC: Home Oxygen (O2) Evaluation Start: 08/10/22 10:58 Freq: ONCE Status: Active Protocol: RPE Activity Type Activity Date Activity User E-sign Co-sign Detail Recorded Client Recorded Date Recorded By Document 08/10/22 15:00 ARASELI [email or web address] 08/10/22 15:27 ARASELI Document 08/10/22 15:03 ARASELI [email or web address] 08/10/22 15:27 ARASELI Document 08/10/22 15:04 ARASELI [email or web address] 08/10/22 15:27 ARASELI Document 08/10/22 15:05 ARASELI [email or web address] 08/10/22 15:27 ARASELI Document 08/10/22 15:15 ARASELI [email or web address] 08/10/22 15:27 ARASELI 08/10/22 08/10/22 08/10/22 15:00 15:03 15:04 Home O2 Evaluation [Oxygen] -Test Phase Resting Exercise Exercise -Oxygen Delivery Room Air Room Air Nasal Cannula -Oxygen Flow Rate (L/min) 1 [Pulse Oximetry] -Pulse Oximetry (90-100 %) 94 87 L 87 L [Pulse Rate] -Pulse Rate (60-100 beats/min) 60 [Comments] -Home Oxygen Evaluation Comments [Charges] -Treatment Charges O2 Evaluation - Inpatient 08/10/22 08/10/22 15:05 15:15 Home O2 Evaluation [Oxygen] -Test Phase Exercise Resting -Oxygen Delivery Nasal Cannula Room Air -Oxygen Flow Rate (L/min) 2 [Pulse Oximetry] -Pulse Oximetry (90-100 %) 92 95 [Pulse Rate] -Pulse Rate (60-100 beats/min) 95 76 [Comments] -Home Oxygen Evaluation Comments PT REQUIRES 2 L HOME O2 WITH EXERTION [Charges] -Treatment Charges
--- NOTE | 2022-08-10 15:27 | PCRCNOTE ---
HOME O2 EVAL DONE, PT REQUIRES 2 L WITH EXERTION. PT HAS [facility] FOR HOME CPAP/BIPAP NEEDS. WILL ARRANGE O2 WITH THEM WELL. PT DID PURCHASE A PORTABLE CONCENTRATOR FOR USE WITH EXERTION WHICH IS NOT MAINTAINED WITH A DME. WILL ARRANGE TO HAVE O2 ORDERED AND SET UP TO ENSURE HE RECEIVES THE NECESSARY EQUIPMENT NEEDED. RN NOTIFIED
--- NOTE | 2022-08-10 17:08 | PM.DS ---
DS: Admitting Diagnosis Discharge Date 08/10/22 Admitting Diagnosis Shortness of breath. DS: Discharge Diagnosis Discharge Diagnosis (1) Acute respiratory failure with hypoxia and hypercarbia: Code(s): J96.01 - Acute respiratory failure with hypoxia; J96.02 - Acute respiratory failure with hypercapnia Status: Acute (2) Acute exacerbation of congestive heart failure: Code(s): I50.9 - Heart failure, unspecified Status: Acute (3) Obstructive sleep apnea on CPAP: Code(s): G47.33 - Obstructive sleep apnea (adult) (pediatric); Z99.89 - Dependence on other enabling machines and devices Status: Acute (4) Persistent atrial fibrillation: Code(s): I48.19 - Other persistent atrial fibrillation Status: Acute (5) Chronic kidney disease, stage 3: Code(s): N18.30 - Chronic kidney disease, stage 3 unspecified Status: Acute (6) Hypertension: Qualifiers: Hypertension type: essential hypertension Qualified Code(s): I10 - Essential (primary) hypertension Code(s): I10 - Essential (primary) hypertension Status: Acute (7) Chronic respiratory failure with hypoxia, on home oxygen therapy: Code(s): J96.11 - Chronic respiratory failure with hypoxia; Z99.81 - Dependence on supplemental oxygen Status: Acute DS: Summary Hospital Course Reason for hospitalization: 61yo male with chronic resp failure, YEN and pAFib here for shortness of breath. Please see H&P for details. Hospital Course: The patient presents with complainits of SOB.? His SpO2 was in the low 90s on 4 liters (he is normally on 2L chronically). He is compliant with his home CPAP and recent sleep study on 06/25/21. He was on BiPAP with ABG on arrival /240 on bipap. COVID and influenza negative. Echo EF 65-70% with diastolic dysfunction and mild pHTN (hx of having low EF). CXR of admission showing improving bibasilar infiltrates edema vs PNA. Concern for Acute on chronic diastolic CHF exacerbation so IV Lasix given but became HoTN so IV lasix stopped, anti-HTN meds held and IV fluids given. BP improved and able to add back his Coreg. Normal WBC but low grade fever so abx started. BCx NGTD. Repeat CXR clear. Symptoms persisted and steroids added with improvement. Able to wean off BiPAP while awake. Patient with chronic AFib. Rate controlled. Coreg was on hold due to soft BP but was able to be resumed at lower dose. We continued Xarelto. Cr elevated at 1.7 on admission that worsened due to ATN from the HoTN. With IV fluids and improvement in his BP, Cr better at 1.2. Renal US normal. Patient normally on 2L O2 at home. Home O2 evaluation showing he needs 2L O2 with activity but room air at rest. He overall did well and was able to be discharged home on 08/10. Status at Discharge Cognitive/behavioral status at discharge: stable Time Spent with Patient Time attestation: Total time spent providing and/or coordinating discharge services: 35 minutes Time spent: Greater than 30 minutes Exam Narrative: AF 97.2 113/70 76 18 95% RA Gen - NARD siting up in chair Chest - few basilar crackles o/w clear CV - irregularly irregular S1/S2; Tele showing AFib with controlled rate Abd - Soft, obese, NT Ext - trace pedal edema Psych - Nml mood and affect Skin - Warm and dry DS: Data Data Completed and Pending Labs on day of discharge: Labs from last 24 hours 08/10/22 08/10/22 03:59 03:59 WBC 12.3 H RBC 2.87 L Hgb 9.4 L Hct 28.5 L MCV 99.3 MCH 32.8 MCHC 33.0 RDW 13.6 Plt Count 202 MPV 11.2 H Sodium 132 L Potassium 4.2 Chloride 100 Carbon Dioxide 28 Anion Gap 4 L BUN 47 H Creatinine 1.20 Estim Creat Clear Calc 89 Estimated GFR > 60 Glucose 145 H Calcium 8.4 Phosphorus 2.7 Albumin 3.3 L Preliminary micro results at discharge 08/06/22 19:45 Blood Culture - Preliminary Blood 08/06/22 19:45 Blood Culture - Pr
[2022-08-10] MEDS: RIVAROXABAN 15 MG TABLET PO (17:18)
== END 2022-08-10 18:00 | disposition home or self-care (01) | DRG 291 ==
LOC: ANHED 13:52 → ANHIMU 17:30
PROVIDERS: Physician Assistant; Admitting Provider Student in an Organized Health Care Education/Training Program; Emergency Provider Emergency Medicine; PCP Family Medicine; Visit Provider Internal Medicine
DX: I13.0 Hypertensive heart and chronic kidney disease with heart failure and stage 1 through stage 4 chronic kidney disease, or unspecified chronic kidney disease (principal); I50.33 Acute on chronic diastolic (congestive) heart failure; J96.02 Acute respiratory failure with hypercapnia; N17.0 Acute kidney failure with tubular necrosis; J96.21 Acute and chronic respiratory failure with hypoxia; Z68.43 Body mass index [BMI] 50.0-59.9, adult; I48.19 Other persistent atrial fibrillation; G47.33 Obstructive sleep apnea (adult) (pediatric); N18.30 Chronic kidney disease, stage 3 unspecified; E66.9 Obesity, unspecified; Z20.822 Contact with and (suspected) exposure to COVID-19; E78.5 Hyperlipidemia, unspecified; E03.9 Hypothyroidism, unspecified; K21.9 Gastro-esophageal reflux disease without esophagitis; Z86.718 Personal history of other venous thrombosis and embolism; Z79.01 Long term (current) use of anticoagulants; Z86.711 Personal history of pulmonary embolism; Z79.899 Other long term (current) drug therapy; Z99.81 Dependence on supplemental oxygen
CPT/HCPCS: 36415; 36600; 71045; 76775; 80053; 80069; 80202; 81001; 82375; 82550; 82570; 82607; 82746; 82805; 83050; 83735; 83880; 84300; 85025; 85027; 85610; 85730; 85999; 86140; 86160; 87040; 87636; 93005; 94002; 94003; 94618; 94640; 99285; A9270; C8929; J0692; J1940; J2060; J2270; J2930; J3370; J7030; J7040; Q9957

== ENCOUNTER 2022-09-30 10:48 | Outpatient (CLI) | payer MEDICARE, SELFPAY ==
--- NOTE | 2022-09-30 14:25 | WPDPFTINT ---
PFT Procedure Performed PFT Procedure Performed Spirometry with Pre/Post Bronchodilator Plethysmography (Lung Vol) Diffusing Cap (DLCO) Flow Vol Loop PFT Interpretation Lung volumes were measured with the body plethysmography method. Lung volumes are unremarkable. Spirometry showed diminished expiratory flow rates and a diminished FEV1 to FVC ratio 59%, indicative of obstructive airway disease. Following administration of a bronchodilator there was significant increase in expiratory flow rates. Lung diffusion capacity is within the normal range at 87% predicted. The flow volume loop is consistent with obstructive airway disease. Impression: Moderate obstructive airway disease with significant response to bronchodilators on this testing. Lung diffusion capacity within the normal range.
--- NOTE | 2022-09-30 14:40 | WPDSIXMINUTE ---
Six Minute Walk Procedure Procedure Performed Pulmonary Stress Test (6 min walk) Six Minute Walk Six Minute Walk: This 6 minute walk test was carried out with the patient breathing ambient air. The pre walk oxyhemoglobin saturation was 93%. The patient walked 213 m with no stops during testing. During the walk the oxyhemoglobin saturation remained in the range of 94% to 98%. of note, the patient was able to walk only for 5 minutes due to hip pain. Impression: no evidence of oxyhemoglobin desaturation during this limited test.
== END 2022-09-30 10:49 | disposition home or self-care (01) ==
LOC: ANHPFT 10:49
PROVIDERS: PCP Family Medicine; Visit Provider Internal Medicine Pulmonary Disease
DX: I50.9 Heart failure, unspecified (principal); I27.20 Pulmonary hypertension, unspecified; R94.2 Abnormal results of pulmonary function studies
CPT/HCPCS: 94060; 94618; 94726; 94729

== ENCOUNTER 2023-03-24 09:43 | Outpatient (CLI) | payer MEDICARE, SELFPAY ==
--- NOTE | ~2023-03-24 | CT_ITS ---
CT Scan of the Chest without Contrast: Clinical Indication: COPD Technique: Contiguous sections were acquired throughout the chest without intravenous contrast. Dose reduction technique was used on this scan by utilizing automated exposure control and iterative recon struction technique. The dose-length product (DLP) was 735.66 mGy-cm. Findings: There is no evidence of any significant mediastinal, hilar or axillary lymphadenopathy. The mediastin al soft tissues appear normal. There is no evidence of pleural or pericardial effusion. The lungs are clear. No pulmonary nodules or infiltrates are noted. Images through the upper abdomen reveal no abnormalities. Old, healed right-sided rib fracture deform ities are noted. Impression: No significant abnormalities seen. Clear lungs. Reviewed, dictated and finalized at location . Impression: No significant abnormalities seen. Clear lungs.
== END 2023-03-24 09:44 | disposition home or self-care (01) ==
PROVIDERS: PCP Family Medicine; Visit Provider Physician Assistant
DX: J44.9 Chronic obstructive pulmonary disease, unspecified (principal)
CPT/HCPCS: 71250

== ENCOUNTER 2023-11-13 11:48 | Emergency (ER) | payer MEDICARE, SELFPAY ==
[2023-11-13 12:15] VITALS: BP 163/93; PULSE 67; RESP 16; TEMP 36.2; O2SAT 97
--- NOTE | 2023-11-13 12:36 | ED.URI ---
HPI - URI/Sore Throat General Chief Complaint: Upper Respiratory Infection Stated Complaint: severe sore throat Time Seen by Provider: 11/13/23 12:36 Source: patient Mode of arrival: ambulatory Limitations: no limitations History of Present Illness HPI Narrative: 63-year-old male presents with complaint sore throat. Sore throat for approximately 3-4 days. Afebrile. Denies having any other symptoms. Pain worse with swelling. All systems reviewed and negative except as noted above. Related Data Home Medications Medication Instructions Recorded Confirmed magnesium oxide 400 mg PO DAILY 10/04/20 11/13/23 rivaroxaban 15 mg tablet (Xarelto) 15 mg PO DAILY 10/04/20 11/13/23 atorvastatin 80 mg tablet 80 mg PO QHS 05/29/21 11/13/23 [id number]-[id number]-[id number] 1 tablet PO DAILY 08/05/22 11/13/23 tablet (Multivitamin 50 Plus tablet) Allergies Allergy/AdvReac Type Severity Reaction Status Date / Time bacitracin Allergy Unknown Unknown Verified 11/13/23 12:34 neomycin Allergy Unknown Unknown Verified 11/13/23 12:34 polymyxin B Allergy Unknown Unknown Verified 11/13/23 12:34 Review of Systems Review of Systems: CONSTITUTIONAL: Denies fever, chills, or sweats. EYES: Denies visual changes, redness, or discharge. ENT: Denies rhinorrhea, congestion. Reports sore throat. Denies otalgia. CARDIOVASCULAR: Denies chest pain, palpitations, or edema. RESPIRATORY: Denies cough or dyspnea. GASTROINTESTINAL: Denies abdominal pain, nausea, vomiting, or diarrhea. GENITOURINARY: Denies dysuria or hematuria. SKIN: Denies rash or itching. MUSCULOSKELETAL: Denies back pain, joint pain, or myalgia. NEUROLOGIC: Denies headache, numbness, or weakness. PSYCHIATRIC: Denies anxiety or depression. All other systems reviewed are negative, except as documented in HPI. [facility] Past Medical History Medical History Anxiety Arthritis Chronic anemia Chronic anticoagulation Chronic kidney disease, stage 3 Congestive heart failure Ejection fraction was about 30% on echocardiogram in April 2014. Current use of buttermaker continuous churn anticoagulation Dyslipidemia Gastroesophageal reflux disease Heart disease Follows with Dr Perez [facility] Heart failure with preserved ejection fraction History of deep venous thrombosis History of venous thromboembolism Hx of pulmonary embolus x3, taking Xarelto Hypertension Hypothyroidism Incisional hernia Morbid obesity Obstructive sleep apnea on CPAP Paroxysmal atrial fibrillation Surgical History Surgical History History of sinus surgery History of ventral hernia repair x3. Hx of hernia repair 2007, 2009 Family History Family History Father Leukemia Sibling Breast cancer Father Cancer Mother Thyroid disorder Sibling Cancer Social History Social History Social History: Surrogate decision maker: Dennis Baldwin, son. Code status: Full code. Smoking status: Never smoker Second hand tobacco smoke exposure: No Alcohol intake: former Substance use: never Substance use type: does not use Lack of Transportation: No Lack of Food: Never True Current Housing: I Have Housing Concerned About Future Housing: No Difficulty Paying Gas/Electric Bills: No Difficulty Paying for Meds: No Currently Unemployed: No Education: Decline to Answer Difficulty w/ Childcare or Family Care: No Additional living arrangements comments: Lives in his own home in [place]. Occupation/Education: other Additional occupation/education comments: disabled Gender identity (if verbalized by the patient): Male Spiritual care concerns: No Comments At time of signature, agree with nursing past medical, surgical, social and family history. There is no relevant famil
== END 2023-11-13 12:58 | disposition home or self-care (01) ==
PROVIDERS: Emergency Provider Nurse Practitioner Family; PCP Hospitalist
DX: J02.9 Acute pharyngitis, unspecified (principal); I13.0 Hypertensive heart and chronic kidney disease with heart failure and stage 1 through stage 4 chronic kidney disease, or unspecified chronic kidney disease; N18.30 Chronic kidney disease, stage 3 unspecified; I50.9 Heart failure, unspecified; E78.5 Hyperlipidemia, unspecified; K21.9 Gastro-esophageal reflux disease without esophagitis; Z86.718 Personal history of other venous thrombosis and embolism; Z86.711 Personal history of pulmonary embolism; E03.9 Hypothyroidism, unspecified; E66.01 Morbid (severe) obesity due to excess calories; Z68.43 Body mass index [BMI] 50.0-59.9, adult; I48.0 Paroxysmal atrial fibrillation; M19.90 Unspecified osteoarthritis, unspecified site; Z79.01 Long term (current) use of anticoagulants
CPT/HCPCS: 87081; 87255; 87880; 99213; G0463

== ENCOUNTER 2024-08-30 12:37 | Inpatient (IN) | payer MEDICARE, SELFPAY ==
[2024-08-30] VITALS (10 sets, daily range): BP systolic 150–162; BP diastolic 92–96; PULSE 73–85; RESP 21–26; TEMP 36.1–37.1; O2SAT 92–94
--- NOTE | ~2024-08-30 | CT_ITS ---
CTA chest PE protocol DATE: 09/03/2024 09:04 INDICATION: Shortness of breath. Rule out pulmonary embolism. TECHNIQUE: Axial CT images through the chest with 100 CC Omnipaque 350 intravenous contrast material. Sagittal and coronal reconstructions. COMPARISON: 08/30 2 view chest FINDINGS: There is no evidence of pulmonary embolism. No thoracic aortic aneurysm. There is thoracic aortic atherosclerotic calcification in addition to co ronary artery calcification. No hilar or mediastinal mass lesion or lymphadenopathy is evident. No pericardial or pleural effusion. Slight left upper lobe infiltrate, including lingula. There is mild patchy infiltrate in the right lo wer lobe. Multiple old healed rib fracture deformities. No suspicious osteolytic or osteoblastic lesions. IMPRESSION: No evidence of pulmonary embolism Bilateral pulmonary infiltrates, left upper lobe/lingula, right lower lobe Reviewed, dictated and finalized at [facility]. Reviewed, dictated and finalized at [facility]. TLOAD DRIVER
--- NOTE | ~2024-08-30 | XR_ITS ---
EXAMINATION: XR chest 2V DATE: 08/30/2024 13:49 INDICATION: Shortness of breath TECHNIQUE: frontal and lateral views of the chest were obtained. COMPARISON: Chest radiograph dated 08/07/[address] dated 03/24/2023 FINDINGS: Mild interstitial and airspace opacities in the bilateral lower lungs which could represent mild pulm onary edema or pneumonia. No pleural effusion or pneumothorax. The cardiomediastinal silhouette is wi thin normal limits for AP technique. Visualized bones and soft tissues are unremarkable. IMPRESSION: 1. Mild opacities in the lower lung zones which could represent mild pulmonary edema or pneumonia. Reviewed, dictated and finalized at [facility]. 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
--- NOTE | 2024-08-30 13:04 | ECG_ITS ---
Test Date: 2024-08-30 16:17:58 Measurements Intervals [place] Rate: 76 P: 0 MO: 0 QRS: 47 QRSD: 143 T: -5 QT: 419 QTc: 472 Interpretive Statements ATRIAL FIBRILLATION INTRAVENTRICULAR CONDUCTION DELAY [130+ ms QRS DURATION] No previous ECG available for comparison Electronically Signed On 09-04-2024 10:22:18 AMBULATORY CARE by Geoff Martinez M.D.
--- NOTE | 2024-08-30 14:35 | ED.SOB ---
HPI - SOB/Dyspnea General Chief Complaint: Shortness of Breath/Dyspnea <SENIA Romeo Last Filed: 08/30/24 19:36> Stated Complaint: SOB <SENIA Romeo Last Filed: 08/30/24 19:36> Time Seen by Provider: 08/30/24 15:22 <SENIA Romeo Last Filed: 08/30/24 19:36> Focused HPI: Patient is a 63 y/o male, with PMH of COPD, CHF, CKD, Hx of blood clots/AFIB on xarelto, who presents to the ED via EMS with c/o SOB. Patient reports he developed productive cough with brown/yellow sputum, congestion, sinus drainage on Wednesday. Reports worsening cough and shortness of breath. States he can hardly walk 10 feet without becoming SOB. States over the past couple days his SaO2 at home has been below 90%, down to 82%. He does have home O2 he can wear and has been wearing this over the past couple days. Reports chills, sweats, subjective fevers, swelling in lower extremities. Denies CP. Was given a nebulizer Tx en route which he states helped his breathing. GENERAL: Ill appearing, morbidly obese with BMI of 61.5, and in no acute distress. HEAD: Normocephalic, atraumatic. CHEST: Mild distress. Accessory muscle use. Rhonchi in bases bilaterally. Occ expiratory wheezing. HEART: Regular rate and rhythm.? NEURO: ?Alert and oriented x3. Patient screened in triage and initial orders placed.? ?Additional care and disposition to be based upon?diagnostic testing and treatment. <SENIA Romeo Last Filed: 08/30/24 19:36> Source: patient <SENIA Romeo Last Filed: 08/30/24 19:36> Mode of arrival: EMS <SENIA Romeo Last Filed: 08/30/24 19:36> Limitations: no limitations <SENIA Romeo Last Filed: 08/30/24 19:36> History of Present Illness HPI Narrative: agree with HPI <Mingo Stapleton MD - Last Filed: 08/30/24 19:37> Related Data Home Medications: Home Medications ?Medication ?Instructions ?Recorded ?Confirmed ?Last Taken ?Type magnesium oxide 400 mg PO DAILY 10/04/20 06/06/24 Unknown History jkonzqiewctm-inuwrenc-dvuisb 1 tablet PO DAILY 08/05/22 06/06/24 Unknown History tablet (Multivitamin 50 Plus tablet) <Ema Fernandez PA-C - Last Filed: 08/30/24 19:36> Allergies/Adverse Reactions: Allergies Allergy/AdvReac Type Severity Reaction Status Date / Time bacitracin Allergy Unknown Unknown Verified 06/06/24 14:13 neomycin Allergy Unknown Unknown Verified 06/06/24 14:13 polymyxin B Allergy Unknown Unknown Verified 06/06/24 14:13 <Ema Fernandez PA-C - Last Filed: 08/30/24 19:36> Review of Systems Review of Systems: All systems reviewed & are unremarkable except as noted in HPI and below <Mingo Stapleton MD - Last Filed: 08/30/24 19:37> Constitutional: Constitutional: Reports chills and Reports fatigue <Mingo Stapleton MD - Last Filed: 08/30/24 19:37> ENT: Reports system reviewed and no additional complaints, except as documented <Mingo Stapleton MD - Last Filed: 08/30/24 19:37> Respiratory: Respiratory: Reports no additional respiratory complaints <Mingo Stapleton MD - Last Filed: 08/30/24 19:37> Gastrointestinal: Gastrointestinal: Reports no additional gastrointestinal complaints <Mingo Stapleton MD - Last Filed: 08/30/24 19:37> Genitourinary: Genitourinary: Reports no additional male genitourinary complaints <Mingo Stapleton MD - Last Filed: 08/30/24 19:37> COUNTS INCLUDE 234 BEDS AT THE [facility] Past Medical History Medical History: Medical History Anxiety Arthritis Chronic anemia Chronic anticoagulation Chronic kidney disease, stage 3 Congestive heart failure Ejection fraction was about 30% on echocardiogram in April 2014. Current use of skilled nursing anticoagulation Dyslipidemia Gastroesophageal reflux disease Heart disease Follows with Dr [facility] Heart failure with preserved ejection fraction History of deep venous thrombosis History of venous thromboembolism Hx of pulmonary embolus x3, taking Xarelto Hypertension Hypothyroidism Incisional hernia Morbid obesity Obstructive sleep apnea on CPAP Paroxysmal atrial fibrillation <SENIA Romeo Last Filed: 08/30/24 19:36> Surgical History Surgical History: Surgical History History of sinus surgery History of ventral hernia repair x3. Hx of hernia repair 2007, 2009 <Ema Fernandez PA-C - Last Filed: 08/30/24 19:36> Family History Family History: Family History Father Leukemia Sibling Breast cancer Father Cancer Mother Thyroid disorder Sibling Cancer <Ema Fernandez PA-C - Last Filed: 08/30/24 19:36> Social History Social History: Social History Social History: Surrogate decision maker: Dennis Baldwin, son. Code status: Full code. Smoking status: Never smoker Second hand tobacco smoke exposure: No Alcohol intake: former Substance use: never Substance use type: does not use Do You Feel Safe in your Home?: Yes Lack of Transportation: No Lack of Food: Never True Current Housing: I Have Housing Concerned About Future Housing: No Difficulty Paying Gas/Electric Bills: No Difficulty Paying for Meds: No Currently Unemployed: No Education: Decline to Answer Difficulty w/ Childcare or Family Care: No Additional living arrangements comments: Lives in his own home in [place]. Occupation/Education: other Additional occupation/education comments: disabled Gender identity (if verbalized by the patient): Male Spiritual care concerns: No <SENIA Romeo Last Filed: 08/30/24 19:36> Exam Narrative: GENERAL: chronically ill-appearing, morbidly obese, and in mild distress. HEAD: Normocephalic, atraumatic. ENT: Mucous membranes moist. NECK: Supple. CHEST: bilateral rales and rhonchi, mild respiratory distress. HEART: Regular rate and rhythm. Normal peripheral pulses. ABDOMEN: Soft, nontender, nondistended. EXTREMITIES: Normal range of motion. 2+ edema. SKIN: Warm, dry, no rash. NEURO: Alert and oriented x3. PSYCH: Normal mood and affect. <Mingo Stapleton MD - Last Filed: 08/30/24 19:37> Course Course Emergency Course: Accepted by hospitalist. Pneumonia and copd exacerbation. BNP in a historically better ranger for him. Has increased O2 requirement <Mingo Stapleton MD - Last Filed: 08/30/24 19:37> Vital Signs Vital signs: Vital Signs Temperature 98.7 F 08/30/24 12:45 Pulse Rate 73 08/30/24 12:45 Respiratory Rate 26 H 08/30/24 12:45 Blood Pressure 150/96 H 08/30/24 12:45 Pulse Oximetry 92 08/30/24 12:45 Oxygen Delivery Nasal Cannula 08/30/24 12:45 Oxygen Flow Rate 2 08/30/24 12:45 Temperature 96.9 F L 08/30/24 17:06 Pulse Rate 78 08/30/24 17:06 Respiratory Rate 23 H 08/30/24 17:06 Blood Pressure 162/96 H 08/30/24 17:06 Pulse Oximetry 93 08/30/24 17:06 Oxygen Delivery Nasal Cannula 08/30/24 15:35 Oxygen Flow Rate 4 08/30/24 15:35 <Ema Fernandez PA-C - Last Filed: 08/30/24 19:36> Vital Signs Temperature 98.7 F 08/30/24 12:45 Pulse Rate 73 08/30/24 12:45 Respiratory Rate 26 H 08/30/24 12:45 Blood Pressure 150/96 H 08/30/24 12:45 Pulse Oximetry 92 08/30/24 12:45 Oxygen Delivery Nasal Cannula 08/30/24 12:45 Oxygen Flow Rate 2 08/30/24 12:45 Temperature 96.9 F L 08/30/24 17:06 Pulse Rate 78 08/30/24 17:06 Respiratory Rate 23 H 08/30/24 17:06 Blood Pressure 162/96 H 08/30/24 17:06 Pulse Oximetry 93 08/30/24 17:06 Oxygen Delivery Nasal Cannula 08/30/24 15:35 Oxygen Flow Rate 4 08/30/24 15:35 <Mingo Stapleton MD - Last Filed: 08/30/24 19:37> MDM - SOB/Dyspnea MDM Narrative Medical decision making narrative: MSE by SAIDA in triage. <Ema Fernandez PA-C - Last Filed: 08/30/24 19:36> Lab Data Result diagrams: 08/30/24 14:47 08/30/24 14:47 <Ema Fernandez PA-C - Last Filed: 08/30/24 19:36> Labs: Lab Results 08/30/24 08/30/24 08/30/24 Range/Units 14:47 14:47 14:47 WBC 7.1 (4.5-10.0) K/mm3 RBC 4.33 L (4.6-6.20) M/mm3 Hgb 14.2 D (14.0-18.0) g/dL Hct 44.1 (42.0-52.0) % MCV 101.8 H (80-100) fl MCH 32.8 (26-34) pg MCHC 32.2 (32-36) g/dl RDW 13.2 (11.5-14.5) % Plt Count 164 (150-375) k/mm3 MPV 10.7 H (7.4-10.4) fl Immature Gran % (Auto) 0.6 H (0-0.5) % Neut % (Auto) 89.9 H (45.5-73.1) % Lymph % (Auto) 5.5 L (18.3-44.2) % [place] % (Auto) 3.0 (2.6-8.5) % Eos % (Auto) 0.7 (0-4.4) % Baso % (Auto) 0.3 (0.2-1.2) % Lymph # (Auto) 0.39 L (0.9-3.2) K/mm3 [place] # (Auto) 0.2 (0.1-0.6) K/mm3 Eos # (Auto) 0.1 (0-0.3) K/mm3 Baso # (Auto) 0.0 (0.0-0.1) K/mm3 Abs Immat Gran (auto) 0.04 H (0.00-0.031) K/mm3 Absolute Neuts (auto) 6.3 (1.3-6.7) K/mm3 Absolute Nucleated RBC 0.000 (0.0-0.012) K/mm3 Nucleated RBC % 0.0 (0.0-0.2) % Sodium 139 (137-145) mmol/L Potassium 4.4 (3.4-5.0) mmol/L Chloride 103 (98-107) mmol/L Carbon Dioxide 33 H (22-30) mmol/L Anion Gap 3 L (4-12) mmol/L BUN 29 H D (9-20) mg/dL Creatinine 1.20 (0.7-1.3) mg/dL Estim Creat Clear Calc 97 ml/min Estimated GFR > 60 (59 - ) Glucose 123 H (65-110) mg/dL Calcium 9.0 (8.4-10.2) mg/dL Total Bilirubin 1.4 H (0.2-1.3) mg/dL AST 60 H (17-59) U/L ALT 36 (6-50) U/L Alkaline Phosphatase 101 (38-126) U/L Troponin I 0.050 H* Cancelled (0.000-0.034) ng/mL NT-Pro-B Natriuret Pep 3350 H Cancelled (19.9-100) pg/mL Total Protein 7.0 (6.3-8.2) g/dL Albumin 3.9 (3.5-5.1) g/dL Influenza A (RT-PCR) Negative (Negative) Influenza B (RT-PCR) Negative (Negative) RSV (RT-PCR) Negative (Negative) SARS-CoV-2 RNA (RT-PCR) Negative (Negative) <Ema Fernandez PA-C - Last Filed: 08/30/24 19:36> Lab Results 08/30/24 08/30/24 08/30/24 Range/Units 14:47 14:47 14:47 WBC 7.1 (4.5-10.0) K/mm3 RBC 4.33 L (4.6-6.20) M/mm3 Hgb 14.2 D (14.0-18.0) g/dL Hct 44.1 (42.0-52.0) % MCV 101.8 H (80-100) fl MCH 32.8 (26-34) pg MCHC 32.2 (32-36) g/dl RDW 13.2 (11.5-14.5) % Plt Count 164 (150-375) k/mm3 MPV 10.7 H (7.4-10.4) fl Immature Gran % (Auto) 0.6 H (0-0.5) % Neut % (Auto) 89.9 H (45.5-73.1) % Lymph % (Auto) 5.5 L (18.3-44.2) % [place] % (Auto) 3.0 (2.6-8.5) % Eos % (Auto) 0.7 (0-4.4) % Baso % (Auto) 0.3 (0.2-1.2) % Lymph # (Auto) 0.39 L (0.9-3.2) K/mm3 [place] # (Auto) 0.2 (0.1-0.6) K/mm3 Eos # (Auto) 0.1 (0-0.3) K/mm3 Baso # (Auto) 0.0 (0.0-0.1) K/mm3 Abs Immat Gran (auto) 0.04 H (0.00-0.031) K/mm3 Absolute Neuts (auto) 6.3 (1.3-6.7) K/mm3 Absolute Nucleated RBC 0.000 (0.0-0.012) K/mm3 Nucleated RBC % 0.0 (0.0-0.2) % Sodium 139 (137-145) mmol/L Potassium 4.4 (3.4-5.0) mmol/L Chloride 103 (98-107) mmol/L Carbon Dioxide 33 H (22-30) mmol/L Anion Gap 3 L (4-12) mmol/L BUN 29 H D (9-20) mg/dL Creatinine 1.20 (0.7-1.3) mg/dL Estim Creat Clear Calc 97 ml/min Estimated GFR > 60 (59 - ) Glucose 123 H (65-110) mg/dL Calcium 9.0 (8.4-10.2) mg/dL Total Bilirubin 1.4 H (0.2-1.3) mg/dL AST 60 H (17-59) U/L ALT 36 (6-50) U/L Alkaline Phosphatase 101 (38-126) U/L Troponin I 0.050 H* Cancelled (0.000-0.034) ng/mL NT-Pro-B Natriuret Pep 3350 H Cancelled (19.9-100) pg/mL Total Protein 7.0 (6.3-8.2) g/dL Albumin 3.9 (3.5-5.1) g/dL Influenza A (RT-PCR) Negative (Negative) Influenza B (RT-PCR) Negative (Negative) RSV (RT-PCR) Negative (Negative) SARS-CoV-2 RNA (RT-PCR) Negative (Negative) <Mingo Stapleton MD - Last Filed: 08/30/24 19:37> Imaging Data Radiologist's impression: ITS Impressions Chest X-Ray 08/30/24 14:02 IMPRESSION: 1. Mild opacities in the lower lung zones which could represent mild pulmonary edema or pneumonia. <Mingo Stapleton MD - Last Filed: 08/30/24 19:37> Discharge Plan Discharge Clinical Impression: Pneumonia, COPD (chronic obstructive pulmonary disease), Hypoxia <Ema Fernandez PA-C - Last Filed: 08/30/24 19:36>
[2024-08-30 15:01] LABS: Basophils Percent Auto 0.3 % (0.2-1.2); Eosinophils Absolute Auto 0.1 K/mm3 (0-0.3); Eosinophils Percent Auto 0.7 % (0-4.4); Hematocrit 44.1 % (42.0-52.0); Hemoglobin 14.2 g/dL (14.0-18.0); Immature Granulocyte Absolute 0.04 K/mm3 (0.00-0.031); Immature Granulocyte Percent A 0.6 % (0-0.5); Lymphocytes Absolute Auto 0.39 K/mm3 (0.9-3.2); Lymphocytes Percent Auto 5.5 % (18.3-44.2); Mean Corpuscular HGB Conc 32.2 g/dl (32-36); Mean Corpuscular Hemoglobin 32.8 pg (26-34); Mean Corpuscular Volume 101.8 fl (80-100); Mean Platelet Volume 10.7 fl (7.4-10.4); Monocytes Absolute Auto 0.2 K/mm3 (0.1-0.6); Neutrophils Absolute Auto 6.3 K/mm3 (1.3-6.7); Neutrophils Percent Auto 89.9 % (45.5-73.1); Platelet Count Result 164 k/mm3 (150-375); Red Blood Count 4.33 M/mm3 (4.6-6.20); Red Cell Distribution Width 13.2 % (11.5-14.5); White Blood Count 7.1 K/mm3 (4.5-10.0)
[2024-08-30 15:18] LABS: Alanine Aminotransferase 36 U/L (6-50); Albumin Level 3.9 g/dL (3.5-5.1); Alkaline Phosphatase 101 U/L (38-126); Anion Gap 3 mmol/L (4-12); Aspartate Amino Transferase 60 U/L (17-59); Bilirubin,Total 1.4 mg/dL (0.2-1.3); Blood Urea Nitrogen 29 mg/dL (9-20); Carbon Dioxide 33 mmol/L (22-30); Chloride 103 mmol/L (98-107); Estimated CRCL calculation 97 ml/min; Estimated Glomerular Filt Rate > 60; Glucose 123 mg/dL (65-110); Potassium 4.4 mmol/L (3.4-5.0); Sodium 139 mmol/L (137-145)
[2024-08-30 15:33] LABS: NT Pro B Type Natriuretic Pept 3350 pg/mL (19.9-100)
[2024-08-30 15:35] LABS: Influenza A QL RT-PCR Negative (Negative); Influenza B QL RT-PCR Negative (Negative); RSV RNA, RT-PCR Negative (Negative); SARS-CoV-2 RNA PCR Negative (Negative)
[2024-08-30] MEDS: IPRATROPIUM 0.5 MG/ALBUTEROL SULFATE 2.5 MG AMPUL.NEB 3 ML INHALATION ×2 (15:44→20:37)
[2024-08-30] MEDS: AZITHROMYCIN 500 MG/NS 250 ML 500 MG/250 ML BAG 250 MG IVPB ×2 (17:35→19:06)
[2024-08-30] MEDS: methylPREDNISolone SOD SUCC 125 MG VIAL 60 MG IV PUSH (19:17)
--- NOTE | 2024-08-30 23:30 | PC.NURSE ---
Assumed care of patient after receiving report from ROBYN Daily. @[phone]
[2024-08-31] VITALS (68 sets, daily range): BP systolic 129–174; BP diastolic 72–109; PULSE 60–98; RESP 16–36; TEMP 36.3–36.8; O2SAT 87–98; BMI 61.4
[2024-08-31] MEDS: methylPREDNISolone SOD SUCC 125 MG VIAL 60 MG IV PUSH ×4 (00:10→17:57)
--- NOTE | 2024-08-31 01:11 | PC.NURSE ---
Pt stated he has severe sleep apnea and sleeps with a cpap. ED Charge noted. Hospitalist notified and stated he will put the orders in and to call respiratory.
[2024-08-31] MEDS: IPRATROPIUM 0.5 MG/ALBUTEROL SULFATE 2.5 MG AMPUL.NEB 3 ML INHALATION ×4 (01:53→20:02)
[2024-08-31 05:33] LABS: MRSA (PCR) NOT DETECTED (NOT DETECTE)
[2024-08-31 06:06] LABS: Basophils Percent Auto 0.1 % (0.2-1.2); Eosinophils Percent Auto 0.1 % (0-4.4); Hemoglobin 13.7 g/dL (14.0-18.0); Immature Granulocyte Absolute 0.05 K/mm3 (0.00-0.031); Immature Granulocyte Percent A 0.7 % (0-0.5); Lymphocytes Absolute Auto 0.59 K/mm3 (0.9-3.2); Lymphocytes Percent Auto 7.9 % (18.3-44.2); Mean Corpuscular HGB Conc 31.9 g/dl (32-36); Mean Corpuscular Hemoglobin 33.2 pg (26-34); Mean Corpuscular Volume 104.1 fl (80-100); Monocytes Absolute Auto 0.2 K/mm3 (0.1-0.6); Monocytes Percent Auto 3.1 % (2.6-8.5); Neutrophils Absolute Auto 6.6 K/mm3 (1.3-6.7); Neutrophils Percent Auto 88.1 % (45.5-73.1); Platelet Count Result 165 k/mm3 (150-375); Red Blood Count 4.13 M/mm3 (4.6-6.20); Red Cell Distribution Width 13.2 % (11.5-14.5); White Blood Count 7.5 K/mm3 (4.5-10.0)
[2024-08-31 06:33] LABS: Troponin I 0.036 ng/mL (0.000-0.034)
[2024-08-31 07:35] LABS: Alanine Aminotransferase 34 U/L (6-50); Albumin Level 3.7 g/dL (3.5-5.1); Alkaline Phosphatase 85 U/L (38-126); Anion Gap 2 mmol/L (4-12); Aspartate Amino Transferase 64 U/L (17-59); Bilirubin,Total 1.2 mg/dL (0.2-1.3); Blood Urea Nitrogen 36 mg/dL (9-20); Calcium 8.7 mg/dL (8.4-10.2); Carbon Dioxide 34 mmol/L (22-30); Chloride 102 mmol/L (98-107); Estimated CRCL calculation 90 ml/min; Estimated Glomerular Filt Rate 55; Glucose 146 mg/dL (65-110); Magnesium 2.4 mg/dL (1.6-2.3); Potassium 4.4 mmol/L (3.4-5.0); Sodium 138 mmol/L (137-145)
--- NOTE | 2024-08-31 08:56 | PC.NURSE ---
Pt's SpO2 90%, increased nasal canula to 4L NC, SpO2 now 94%. Lung sounds coarse bilaterally. No changed in work of breathing. Pt states his SOB is not worse. Pt has call light in reach, instructed to let RN know if anything changes or worsens.
--- NOTE | 2024-08-31 09:04 | P.HP_ITS ---
H&P: HPI History of Present Illness Date/Time: 08/31/24 09:04 Chief Complaint: Shortness of breath Narrative: 63 y/o male, with PMH of COPD, CHF, CKD, Hx of blood clots/AFIB on xarelto, who presents to the ED via EMS for shortness of breath. He was in his usual state of health until Sunday 08/26, when he noticed sinus drainage. Wednesday he was more short of breath and had a cough. Shortness of breath continued to worsen and he put himself on 2L of O2. He checks his O2 sat at home and it was down to 82%. Patient reports he developed productive cough with brown/yellow sputum, congestion, sinus drainage on Wednesday. Reports worsening cough and shortness of breath. He is retired and still drives. Lives by himself and gets around the house without an assistive device. In the last few days he has been short of breath with any activity. Possible chills, and had sweats and subjective fevers, swelling in lower extremities that has increased in the last few days. Denies CP. In the ER, he was afebrile and blood pressure was above goal, 150-173/72-97, 88- 94%. On 4L O2. Trop elevated to 0.50>0.36. EKG afib. Started on IV solumedrol q6 and scheduled nebs, as well as IV lasix and empiric Ceftiraxone and azithromycin 08/30 Chest xray showed: Mild opacities in the lower lung zones which could represent mild pulmonary edema or pneumonia. Home bipap ordered [facility] Past Medical History Medical History Anxiety Arthritis Chronic anemia Chronic anticoagulation Chronic kidney disease, stage 3 Congestive heart failure Ejection fraction was about 30% on echocardiogram in April 2014. 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 Hx of hernia repair 2007, 2009 Family History Family History (Updated 08/31/24 @ 22:29 by Estrada Messina RN) Father Leukemia Sibling Breast cancer Parkinson disease Father Cancer Mother Thyroid disorder Sibling Cancer Social History Social History Social History: Surrogate decision maker: Dennis Baldwin, son. Code status: Full code. Smoking status: Never smoker Second hand tobacco smoke exposure: No Alcohol intake: former Substance use: never Substance use type: does not use Do You Feel Safe in your Home?: Yes Lack of Transportation: No Lack of Food: Never True Current Housing: I Have Housing Concerned About Future Housing: No Difficulty Paying Gas/Electric Bills: No Difficulty Paying for Meds: No Currently Unemployed: No Education: Bachelor's Degree Difficulty w/ Childcare or Family Care: No Additional living arrangements comments: Lives in his own home in [place]. Occupation/Education: other Additional occupation/education comments: disabled Gender identity (if verbalized by the patient): Male Spiritual care concerns: No Meds Home Medications and Allergies Home Medications ?Medication ?Instructions ?Recorded ?Confirmed ?Type magnesium oxide 400 mg PO DAILY 10/04/20 08/31/24 History cholecalciferol (vitamin D3) 50 50 mcg PO DAILY #90 caps 06/16/22 08/31/24 Rx mcg (2,000 unit) capsule svnoumgrdiya-xlefqybu-lqgmks 1 tablet PO DAILY 08/05/22 08/31/24 History tablet (Multivitamin 50 Plus tablet) furosemide 40 mg tablet 40 mg PO BID #180 tabs 09/08/23 08/31/24 Rx spironolactone 25 mg tablet 12.5 mg (1/2 x 25 mg) PO DAILY #90 09/08/23 08/31/24 Rx tabs albuterol sulfate 90 mcg/actuation See Rx Instructions .Route 02/14/24 08/31/24 Rx aerosol inhaler .COMPLEX #8.5 grams budesonide-formoterol HFA 160 See Rx Instructions .Route 02/14/24 08/31/24 Rx mcg-4.5 mcg/actuation aerosol .COMPLEX #10.2 grams inhaler (Symbicort) atorvastatin 80 mg tablet 80 mg PO QHS #90 tabs 05/03/24 08/31/24 Rx levothyroxine 25 mcg tablet 25 mcg PO DAILY #90 tabs 05/03/24 08/31/24 Rx fluticasone propionate 50 2 spray intranasal DAILY #48 grams 06/05/24 08/31/24 Rx mcg/actuation nasal spray,suspension (Allergy Relief (fluticasone)) semaglutide (weight loss) 0.25 0.25 mg (0.5 mL) subcut WEEKLY #2 06/06/24 08/31/24 Rx mg/0.5 mL subcutaneous pen mL injector (Welizettevprateek) rivaroxaban 15 mg tablet (Xarelto) 15 mg PO DAILY #90 tabs 08/07/24 08/31/24 Rx carvedilol 25 mg tablet 12.5 mg PO Q12H 08/31/24 08/31/24 History Allergies Allergy/AdvReac Type Severity Reaction Status Date / Time bacitracin Allergy Unknown Unknown Verified 06/06/24 14:13 neomycin Allergy Unknown Unknown Verified 06/06/24 14:13 polymyxin B Allergy Unknown Unknown Verified 06/06/24 14:13 Vital Signs Vital Signs - 24 hr 08/30/24 12:45 08/30/24 15:35 08/30/24 15:36 Temperature 98.7 F Pulse Rate 73 80 Respiratory Rate 26 H 24 H Blood Pressure 150/96 H Pulse Oximetry 92 92 Oxygen Delivery Nasal Cannula Nasal Cannula Oxygen Flow Rate 2 4 08/30/24 15:40 08/30/24 16:01 08/30/24 17:06 Temperature 98.1 F 96.9 F L Pulse Rate 77 83 78 Respiratory Rate 24 H 22 H 23 H Blood Pressure 157/92 H 162/96 H Pulse Oximetry 92 93 Oxygen Delivery Oxygen Flow Rate 08/30/24 20:38 08/30/24 20:46 08/30/24 21:29 Temperature 97.8 F Pulse Rate 79 81 85 Respiratory Rate 21 H 21 H Blood Pressure Pulse Oximetry 93 Oxygen Delivery Oxygen Flow Rate 08/30/24 23:31 08/31/24 00:00 08/31/24 01:55 Temperature Pulse Rate 60 72 Respiratory Rate 27 H 26 H Blood Pressure 163/87 H Pulse Oximetry 94 94 Oxygen Delivery Nasal Cannula Oxygen Flow Rate 4 08/31/24 02:00 08/31/24 02:10 08/31/24 02:10 Temperature Pulse Rate 85 79 Respiratory Rate 25 H 21 H 29 H Blood Pressure 171/97 H Pulse Oximetry 96 94 Oxygen Delivery CPAP Oxygen Flow Rate 08/31/24 04:17 08/31/24 06:44 08/31/24 07:40 Temperature Pulse Rate 72 83 84 Respiratory Rate 24 H 17 24 H Blood Pressure 155/72 H 151/75 H Pulse Oximetry 93 94 Oxygen Delivery Oxygen Flow Rate 08/31/24 07:50 Temperature Pulse Rate 82 Respiratory Rate 24 H Blood Pressure Pulse Oximetry Oxygen Delivery Oxygen Flow Rate Exam Narrative: General - Awake and alert. No acute distress Eyes - PERRLA, EOM intact ENT - No thrush, No erythema Neck - No noticeable or palpable swelling Lymph Nodes - No lymphadenopathy Cardiovascular - RRR no m/r/g, no JVD Lungs: Wheezing all lung daniels, no use of accessory muscles, no crackles Skin - Skin warm and dry, no wounds or rashes Abdomen - Normal bowel sounds, abdomen soft and nontender, obese Extremities - 2+ edema, cyanosis or clubbing Musculoskeletal - 5/5 strength, normal range of motion, no swollen or erythematous joints. Neurological ? Alert and oriented x 3, CN 2-12 grossly intact. Exam nonfocal Psych: Normal mood and affect H&P: Results Labs Labs: Short CBC 08/30/24 08/31/24 Range/Units 14:47 06:01 WBC 7.1 7.5 (4.5-10.0) K/mm3 Hgb 14.2 D 13.7 L (14.0-18.0) g/dL Hct 44.1 43.0 (42.0-52.0) % Plt Count 164 165 (150-375) k/mm3 BMP 08/30/24 08/31/24 14:47 06:01 Sodium 139 138 Potassium 4.4 4.4 Chloride 103 102 Carbon Dioxide 33 H 34 H BUN 29 H D 36 H Creatinine 1.20 1.30 Glucose 123 H 146 H Calcium 9.0 8.7 Cardiac Enzymes 08/30/24 08/30/24 08/31/24 Range/Units 14:47 14:47 06:01 Troponin I 0.050 H* Cancelled 0.036 H* (0.000-0.034) ng/mL Liver Function 08/30/24 08/31/24 Range/Units 14:47 06:01 Total Bilirubin 1.4 H 1.2 (0.2-1.3) mg/dL AST 60 H 64 H (17-59) U/L ALT 36 34 (6-50) U/L Alkaline Phosphatase 101 85 (38-126) U/L Albumin 3.9 3.7 (3.5-5.1) g/dL Assessment and Plan Assessment and plan (1) COPD exacerbation: Code(s): J44.1 - Chronic obstructive pulmonary disease with (acute) exacerbation Status: Acute Assessment and Plan: Home inhalers: Symbicort BID, Albuterol HFA Doesn't have a nebulizer machine. Last admission for shortness of breath was in 2022 --Continue ICS (Advair subsituted for symbicort) --Continue duonebs --IV steroids q6 (2) Morbid obesity with BMI of 60.0-69.9, adult: Code(s): E66.01 - Morbid (severe) obesity due to excess calories; Z68.44 - Body mass index [BMI] 60.0-69.9, adult Status: Acute Assessment and Plan: Complicates aspects of care. He reports weight gain recently. Remote hx DVT's, has been on xarelto Moss Bleacher consult Continue CPAP hs for YEN Continuing xarelto (3) Acute exacerbation of CHF (congestive heart failure): Qualifiers: Heart failure type: unspecified Qualified Code(s): I50.9 - Heart f ailure, unspecified Code(s): I50.9 - Heart failure, unspecified Status: Resolved Assessment and Plan: Acute on chronic heart failure. Increasing edema in the setting of COPD exacerbation. Troponine elevated to 0.050 but trending down, likely demand --Continue IV lasix 40mg BID --Follow BMP, mag (4) Acute respiratory failure with hypoxia and hypercarbia: Code(s): J96.01 - Acute respiratory failure with hypoxia; J96.02 - Acute respiratory failure with hypercapnia Status: Resolved Assessment and Plan: Wean O2 for sats >92% (5) Chronic renal failure: Code(s): N18.9 - Chronic kidney disease, unspecified Status: Resolved Assessment and Plan: Creatinine normal currently. LARISA in 2021 (6) CHF exacerbation: Code(s): I50.9 - Heart failure, unspecified Status: Resolved (7) Pneumonia: Code(s): J18.9 - Pneumonia, unspecified organism Status: Acute Assessment and Plan: 08/30 Chest x-ray showed: Mild opacities in the lower lung zones which could represent mild pulmonary edema or pneumonia. has a productive cough --Started on Ceftiraxone, change to Augmentin 875/125 BID through 09/06 --S/P azithromycin 500, continue 250 x4 more doses Quality VTE Prophylaxis VTE prophylaxis: pharmacologic ordered Hospitalist MIPS Advance Care Plan I have confirmed that the patient's Advanced Care Plan is present, code status is documented, or surrogate decision maker is listed in patient medical record.: Yes Medication Reconciliation I have utilized all available resources to obtain, update and review the patients current medications (includes all prescriptions, OTC, herbals, cannabis, and nutritional supplements).: Yes
[2024-08-31 09:54] LABS: Erythrocyte Sedimentation Rate 37 mm/hr (0-20)
[2024-08-31 09:56] LABS: INR 2.3; Prothrombin Time 26.4 Seconds (11.1-14.7)
[2024-08-31 09:59] LABS: D Dimer < 0.27 ug/mL (<0.48)
[2024-08-31] MEDS: FUROSEMIDE INJ 40 MG/4 ML VIAL IV PUSH ×2 (10:13→17:58)
[2024-08-31] MEDS: cefTRIAXone 2 GM/NS 100 ML 2 GM/100 ML BAG IVPB (10:13)
[2024-08-31 10:56] LABS: CRP 3.5 mg/dL (<1.0)
--- NOTE | 2024-08-31 12:29 | PC.NURSE ---
Lunch tray ordered
--- NOTE | 2024-08-31 18:25 | PC.NURSE ---
Pt accidentally pulled his IV out when sleeping. New IV placed. Pt ate dinner tray, got up to commode after. Commode emptied. Pt reconnected to monitors, pt provided cup of ice upon request. Continuing to await admission bed assignment. Pt aware of plans. Remains on 4L NC. No further requests at this time. Call light in reach.
[2024-08-31] MEDS: carvediloL 12.5 MG TABLET PO (21:30)
[2024-08-31] MEDS: ATORVASTATIN 40 MG TABLET 80 MG PO (21:30)
[2024-08-31] MEDS: AMOXICILLIN/CLAVULANATE K 875-125 MG TAB 1 TABLET PO (21:33)
[2024-08-31] MEDS: ENOXAPARIN 100 MG/ML SYRINGE SUB-Q (22:19)
--- NOTE | 2024-08-31 22:28 | ADMGEN ---
This patient, Omar Baldwin, was admitted to IMU Room 203-01. Patient/family oriented to hospital policies and general routines including ID bracelet, bed and alarms, visiting hours, pain management, procedures, bathroom and other care routines, personal items, smoking policy, room service/diet, and visiting hours. Information on how to activate the Rapid Response Team has been discussed. Patient/Family are encouraged to report perceived risks to care and to ask questions if they do not understand what they are told or what they should do.
--- NOTE | 2024-08-31 23:13 | PCRCNOTE ---
Window of time for administration has passed. See next scheduled administration.
[2024-08-31] MEDS: ALBUTEROL SULFATE NEB 2.5 MG/3 ML INH 5 MG INHALATION (23:36)
[2024-09-01] VITALS (25 sets, daily range): BP systolic 133–164; BP diastolic 72–117; PULSE 64–90; RESP 18–26; TEMP 35.9–36.7; O2SAT 91–99
--- NOTE | 2024-09-01 | ECHO_ITS ---
Patient Info Name: Omar Baldwin Age: 63 years : 1960 Gender: Male Ht: 71 in Wt: 440 lbs BSA: 3.28 m2 HR: 64 bpm BP: 159 / 83 mmHg Heart Rhythm: Sinus Rhythm Technical Quality: Fair Exam Date: 09/01/2024 3:50 PM Exam Location: Echo Lab Exam Room: [facility] Patient Status: Inpatient Admit Date: 09/01/2024 Staff Ordering Physician: Colby Tobin APRN [employer] Operator: Leslie Ruvalcaba RDCS Attending Provider: Jane Bowman APRN Referring Physician: Mahad LATHAM; Exam Type: CA echo doppler color flow Study Info Complete two-dimensional, color flow and Doppler transthoracic echocardiogram is performed. Summary 1. Complete two-dimensional, color flow and Doppler transthoracic echocardiogram is performed. 2. Normal LV sizer and preserved LV systolic function. There is abnormal wall motion c/w IVCD vs RV P/V overload. 3. Markedly enlarged RV with preserved RV functino. 4. Right Atrial enlargement. 5. Severe Pulmonary Hypertension. 6. Unable to completely visualize RV apex to evaluate for MCconnels sign. No obvious clot or thrombus seen in RV or RA. 7. Technically difficult study with limited views. Left Ventricle Abnormal septal motion consistent with Empty. Abnormal paradoxical septal motion consistent with right ventricular volume overload and/or elevated right ventricular end-diastolic pressure. Left ventricular chamber dimension is normal. Left ventricular systolic function is normal, estimated at 55-60%. There is no increased left ventricular wall thickness. Right Ventricle Right ventricular chamber dimension is severely enlarged. Left Atria Left atrial chamber dimension is mildly enlarged. There is no mass visualized in the left atrium. Right Atria Right atrial chamber dimension is severely enlarged. There is no mass visualized in the right atrium. Aortic Valve The aortic valve is probable trileaflet. There is mild aortic valve regurgitation. Pulmonic Valve The pulmonic valve is not well visualized. Mitral Valve The mitral valve has normal leaflets. There is mild mitral valve regurgitation. Tricuspid Valve The tricuspid valve leaflets are not well visualized. There is mild tricuspid valve regurgitation. Severe pulmonary hypertension, estimated pulmonary arterial systolic pressure is 77 mmHg. Pericardium/Pleural The pericardium appears normal. Aorta The prox ascending aorta size is dilated. Left Ventricular Outflow Tract Name Value Normal LVOT 2D LVOT Diameter 2.3 cm LVOT Doppler LVOT Peak Gradient 3 mmHg LVOT Mean Gradient 2 mmHg LVOT VTI 20 cm LVOT VTI/AV VTI Ratio 0.8 LVOT Stroke Volume 87 ml LVOT CO 9.4 l/min LVOT CI 2.8 l/min/m2 Pulmonic Valve Name Value Normal PV Doppler PV Peak Gradient 2 mmHg Mitral Valve Name Value Normal MV Doppler MV Peak Gradient 6 mmHg MV Mean Gradient 2 mmHg MV Decel [place] 630 cm/s2 MV PHT 46 ms MV Area (PHT) 4.8 cm2 4.0-5.0 MV Area (Cont Eq VTI) 3.8 cm2 MV Regurgitation Doppler MR Peak Gradient 132 mmHg MV Diastolic Function MV E Peak Velocity 99 cm/s MV A Peak Velocity 40 cm/s MV E/A 2.5 MV Decel Time 157 ms MV Annular TDI MV E/e' (Septal) 11.7 <=8.0 Tricuspid Valve Name Value Normal TV Regurgitation Doppler TR Peak Velocity 379 cm/s TR Peak Gradient 57 mmHg Estimated PAP/RSVP RA Pressure 20 mmHg <=5 PA Systolic Pressure 77 mmHg <36 RV Systolic Pressure 77 mmHg <36 Aorta Name Value Normal Ascending Aorta Ao Root Diameter (MM) 4.1 cm Ao Root Diam Index (MM) 1.3 cm/m2 Aortic Valve Name Value Normal AV Doppler AV Peak Velocity 128 cm/s AV Peak Gradient 7 mmHg AV Mean Gradient 4 mmHg AV VTI 26 cm AV Area (Cont Eq VTI) 3.4 cm2 >=3.0 AV Area (Cont Eq Korey) 3.1 cm2 AV Regurgitation 2D LVOT Area 4.3 cm2 Ventricles Name Value Normal LV Dimensions 2D/MM LVOT Diameter 2.3 cm Atria Name Value Normal LA Dimensions LA Volume (4C A-L) 127 ml RA Dimensions RA Area (4C) 38.8 cm2 <=18.0 Report Signatures
[2024-09-01] MEDS: methylPREDNISolone SOD SUCC 125 MG VIAL 60 MG IV PUSH ×4 (00:17→17:13)
[2024-09-01] MEDS: HYDROcodone/acetaminophen (*CRX) 5-325 MG TABLET 1 TAB PO ×2 (00:23→20:57)
[2024-09-01] MEDS: IPRATROPIUM 0.5 MG/ALBUTEROL SULFATE 2.5 MG AMPUL.NEB 3 ML INHALATION ×4 (02:45→21:09)
[2024-09-01 05:31] LABS: Basophils Percent Auto 0.1 % (0.2-1.2); Eosinophils Absolute Auto 0.1 K/mm3 (0-0.3); Eosinophils Percent Auto 0.6 % (0-4.4); Hematocrit 40.9 % (42.0-52.0); Hemoglobin 12.9 g/dL (14.0-18.0); Immature Granulocyte Absolute 0.03 K/mm3 (0.00-0.031); Immature Granulocyte Percent A 0.3 % (0-0.5); Lymphocytes Absolute Auto 0.67 K/mm3 (0.9-3.2); Lymphocytes Percent Auto 7.7 % (18.3-44.2); Mean Corpuscular HGB Conc 31.5 g/dl (32-36); Mean Corpuscular Hemoglobin 32.6 pg (26-34); Mean Corpuscular Volume 103.3 fl (80-100); Monocytes Absolute Auto 0.3 K/mm3 (0.1-0.6); Monocytes Percent Auto 3.2 % (2.6-8.5); Neutrophils Absolute Auto 7.7 K/mm3 (1.3-6.7); Neutrophils Percent Auto 88.1 % (45.5-73.1); Platelet Count Result 157 k/mm3 (150-375); Red Blood Count 3.96 M/mm3 (4.6-6.20); Red Cell Distribution Width 13.1 % (11.5-14.5); White Blood Count 8.7 K/mm3 (4.5-10.0)
[2024-09-01 05:43] LABS: Alanine Aminotransferase 33 U/L (6-50); Albumin Level 3.2 g/dL (3.5-5.1); Alkaline Phosphatase 78 U/L (38-126); Anion Gap 0 mmol/L (4-12); Aspartate Amino Transferase 62 U/L (17-59); Bilirubin,Total 0.7 mg/dL (0.2-1.3); Blood Urea Nitrogen 41 mg/dL (9-20); Calcium 8.5 mg/dL (8.4-10.2); Carbon Dioxide 37 mmol/L (22-30); Chloride 102 mmol/L (98-107); Estimated CRCL calculation 106 ml/min; Estimated Glomerular Filt Rate > 60; Glucose 156 mg/dL (65-110); Magnesium 2.5 mg/dL (1.6-2.3); Potassium 3.7 mmol/L (3.4-5.0); Sodium 139 mmol/L (137-145)
[2024-09-01] MEDS: LEVOTHYROXINE SODIUM 25 MCG TABLET PO (05:51)
[2024-09-01] MEDS: FLUTICASONE/SALMETEROL 230-21 MCG INHALER 1 PUFF 2 PUFF INHALATION ×2 (07:40→21:09)
[2024-09-01] MEDS: AZITHROMYCIN 250 MG TABLET PO (09:31)
[2024-09-01] MEDS: CHOLECALCIFEROL 1,000 UNITS TABLET 2000 UNITS PO (09:31)
[2024-09-01] MEDS: carvediloL 12.5 MG TABLET PO ×2 (09:31→20:57)
[2024-09-01] MEDS: AMOXICILLIN/CLAVULANATE K 875-125 MG TAB 1 TABLET PO ×2 (09:31→20:53)
[2024-09-01] MEDS: FUROSEMIDE INJ 40 MG/4 ML VIAL IV PUSH ×2 (09:32→17:13)
[2024-09-01] MEDS: FLUTICASONE PROPIONATE 0.05% NA SPR 16 GM BTL (*BKC) 2 SPRAY NASAL (09:32)
[2024-09-01] MEDS: BENZONATATE 100 MG CAPSULE 200 MG PO ×2 (12:17→17:12)
--- NOTE | 2024-09-01 13:32 | P.PNIM_ITS ---
Progress Note: A&P Assessment and Plan (1) COPD exacerbation: Code(s): J44.1 - Chronic obstructive pulmonary disease with (acute) exacerbation Status: Acute Assessment and Plan: Home inhalers: Symbicort BID, Albuterol HFA Doesn't have a nebulizer machine. Last admission for shortness of breath was in 2022 --Continue ICS (Advair subsituted for symbicort) --Continue duonebs, increase to q4 --IV solumedrol 60mg IV q6, continue same dose --Tessalon perles and guaifenesin DM prn for cough (2) Morbid obesity with BMI of 60.0-69.9, adult: Code(s): E66.01 - Morbid (severe) obesity due to excess calories; Z68.44 - Body mass index [BMI] 60.0-69.9, adult Status: Acute Assessment and Plan: Complicates aspects of care. He reports weight gain recently. Remote hx DVT's, has been on xarelto Operations Agent consult Continue CPAP hs for YEN Continuing xarelto (3) Acute exacerbation of CHF (congestive heart failure): Qualifiers: Heart failure type: unspecified Qualified Code(s): I50.9 - Heart failure, unspecified Code(s): I50.9 - Heart failure, unspecified Status: Resolved Assessment and Plan: Acute on chronic heart failure. Increasing edema in the setting of COPD exacerbation. Troponine elevated to 0.050 but trending down, likely demand --Continue IV lasix 40mg BID. 40meq potassium today --Follow BMP, mag (4) Acute respiratory failure with hypoxia and hypercarbia: Code(s): J96.01 - Acute respiratory failure with hypoxia; J96.02 - Acute respiratory failure with hypercapnia Status: Resolved Assessment and Plan: Wean O2 for sats >92% (5) Chronic renal failure: Code(s): N18.9 - Chronic kidney disease, unspecified Status: Resolved Assessment and Plan: Creatinine normal currently. LARISA in 2021 (6) Pneumonia: Code(s): J18.9 - Pneumonia, unspecified organism Status: Acute Assessment and Plan: 08/30 Chest x-ray showed: Mild opacities in the lower lung zones which could represent mild pulmonary edema or pneumonia. has a productive cough --Started on Ceftiraxone, change to Augmentin 875/125 BID through 09/06 --S/P azithromycin 500, continue 250 x4 more doses Time Spent With Patient Time: 57 minutes Subjective Date/time seen: 09/01/24 13:32 Interval history: Frequently coughing. Still wheezing but feels shortness of breath is improving slowly. Swelling improving. Exam 2 Narrative: General - Awake and alert. No acute distress Eyes - PERRLA, EOM intact ENT - No thrush, No erythema Neck - No noticeable or palpable swelling Lymph Nodes - No lymphadenopathy Cardiovascular - RRR no m/r/g, no JVD Lungs: Wheezing all lung daneils, no use of accessory muscles, no crackles Skin - Skin warm and dry, no wounds or rashes Abdomen - Normal bowel sounds, abdomen soft and nontender, obese Extremities - 2+ edema, cyanosis or clubbing Musculoskeletal - 5/5 strength, normal range of motion, no swollen or erythematous joints. Neurological ? Alert and oriented x 3, CN 2-12 grossly intact. Exam nonfocal Psych: Normal mood and affect Objective Data Vital Signs Vital Signs: Vital Signs - 24 hr 08/31/24 13:35 08/31/24 13:45 08/31/24 14:06 Temperature Pulse Rate 83 86 89 Respiratory Rate 24 H 27 H 25 H Blood Pressure Pulse Oximetry 95 93 Oxygen Delivery Oxygen Flow Rate 08/31/24 14:15 08/31/24 14:31 08/31/24 14:45 Temperature Pulse Rate 83 85 89 Respiratory Rate 36 H 29 H 26 H Blood Pressure Pulse Oximetry Oxygen Delivery Oxygen Flow Rate 08/31/24 15:00 08/31/24 15:16 08/31/24 15:30 Temperature Pulse Rate 83 79 81 Respiratory Rate 28 H 29 H 19 Blood Pressure Pulse Oximetry 97 Oxygen Delivery Oxygen Flow Rate 08/31/24 15:45 08/31/24 16:06 08/31/24 16:28 Temperature Pulse Rate 82 69 77 Respiratory Rate 29 H 23 H 29 H Blood Pressure Pulse Oximetry 94 94 94 Oxygen Delivery Oxygen Flow Rate 08/31/24 16:30 08/31/24 16:45 08/31/24 17:00 Temperature Pulse Rate 78 79 80 Respiratory Rate 25 H 26 H 34 H Blood Pressure Pulse Oximetry 95 97 93 Oxygen Delivery Oxygen Flow Rate 08/31/24 17:02 08/31/24 17:15 08/31/24 17:32 Temperature Pulse Rate 83 86 79 Respiratory Rate 29 H 22 H 25 H Blood Pressure 171/109 H Pulse Oximetry 94 93 94 Oxygen Delivery Oxygen Flow Rate 08/31/24 17:45 08/31/24 18:00 08/31/24 18:15 Temperature Pulse Rate 88 81 83 Respiratory Rate 27 H 27 H 34 H Blood Pressure Pulse Oximetry 95 94 93 Oxygen Delivery Oxygen Flow Rate 08/31/24 18:38 08/31/24 18:51 08/31/24 19:00 Temperature Pulse Rate 98 81 Respiratory Rate 36 H 28 H 21 H Blood Pressure Pulse Oximetry 94 96 Oxygen Delivery Oxygen Flow Rate 08/31/24 19:20 08/31/24 19:36 08/31/24 20:04 Temperature Pulse Rate 90 82 76 Respiratory Rate 27 H 27 H 26 H Blood Pressure 129/94 H Pulse Oximetry 91 95 Oxygen Delivery Oxygen Flow Rate 08/31/24 21:30 08/31/24 22:07 08/31/24 23:36 Temperature 98.2 F Pulse Rate 91 97 76 Respiratory Rate 30 H 26 H Blood Pressure 174/80 H Pulse Oximetry 93 Oxygen Delivery Oxygen Flow Rate 08/31/24 23:55 08/31/24 23:56 08/31/24 23:59 Temperature 97.3 F L Pulse Rate 76 76 74 Respiratory Rate 24 H 24 H 28 H Blood Pressure 148/95 H Pulse Oximetry 95 93 Oxygen Delivery CPAP Oxygen Flow Rate 09/01/24 00:00 09/01/24 00:00 09/01/24 02:00 Temperature Pulse Rate 73 73 Respiratory Rate Blood Pressure Pulse Oximetry 93 Oxygen Delivery Nasal Cannula Oxygen Flow Rate 3 09/01/24 02:45 09/01/24 02:55 09/01/24 03:55 Temperature 98.1 F Pulse Rate 79 79 74 Respiratory Rate 20 26 H Blood Pressure 157/83 H Pulse Oximetry 94 93 Oxygen Delivery CPAP Oxygen Flow Rate 09/01/24 04:00 09/01/24 04:00 09/01/24 06:00 Temperature Pulse Rate 77 64 Respiratory Rate Blood Pressure Pulse Oximetry 96 Oxygen Delivery BiPAP Oxygen Flow Rate 3 09/01/24 07:44 09/01/24 07:45 09/01/24 08:00 Temperature Pulse Rate 89 Respiratory Rate 20 Blood Pressure Pulse Oximetry 95 99 Oxygen Delivery Nasal Cannula Nasal Cannula Oxygen Flow Rate 3 3 09/01/24 08:00 09/01/24 08:36 09/01/24 09:31 Temperature 97.6 F Pulse Rate 90 80 89 Respiratory Rate 24 H Blood Pressure 139/117 H Pulse Oximetry 99 Oxygen Delivery Oxygen Flow Rate 09/01/24 10:00 09/01/24 13:21 Temperature Pulse Rate 75 69 Respiratory Rate 20 Blood Pressure Pulse Oximetry Oxygen Delivery Oxygen Flow Rate Intake/Output Intake/Output: Intake & Output 08/29/24 08/30/24 08/31/24 09/01/24 23:59 23:59 23:59 23:59 Intake Total 550 100 660 Output Total 500 Balance 550 100 160 Meds/Results Medications: Active Medications Generic Name Dose Route Start Last Admin Trade Name Freq PRN Reason Stop Dose Admin Acetaminophen 650 mg 08/30/24 17:37 Acetaminophen 325 Mg Tablet PO Q4H PRN Mild Pain (1-3) or Fever Hydrocodone Bitart/Acetaminophen 1 tab 08/30/24 17:37 09/01/24 00:23 Hydrocodone/Acetaminophen (*Crx) 5-325 Mg Tablet PO 1 tab Q4H PRN Administration Pain Rated 4-6 Albuterol 2.5 mg 08/31/24 23:03 Albuterol Sulfate Neb 2.5 Mg/3 Ml Inh INHALATION Q4HRT PRN Shortness Of Breath Albuterol/Ipratropium 3 ml 09/01/24 12:00 09/01/24 13:19 Ipratropium 0.5 Mg/Albuterol Sulfate 2.5 Mg Ampul.Neb 3 Ml INHALATION 3 ml Q4HRT KIM Administration Amoxicillin/Clavulanate Potassium 1 tablet 08/31/24 21:00 09/01/24 09:31 Amoxicillin/Clavulanate K 875-125 Mg Tab PO 09/06/24 21:00 1 tablet Q12HR KIM Administration Atorvastatin Calcium 80 mg 08/31/24 21:00 08/31/24 21:30 Atorvastatin 40 Mg Tablet PO 80 mg QHS KIM Administration Azithromycin 250 mg 09/01/24 09:00 09/01/24 09:31 Azithromycin 250 Mg Tablet PO 09/04/24 09:01 250 mg DAILY KIM Administration Benzonatate 200 mg 09/01/24 13:00 09/01/24 12:17 Benzonatate 100 Mg Capsule PO 200 mg TID KIM Administration Carvedilol 12.5 mg 08/31/24 21:00 09/01/24 09:31 Carvedilol 12.5 Mg Tablet PO 12.5 mg Q12H KIM Administration Fluticasone Propionate 2 spray 09/01/24 09:00 09/01/24 09:32 Fluticasone Propionate 0.05% Na Spr 16 Gm Btl (*Bkc) NASAL 2 spray DAILY KIM Administration Furosemide 40 mg 08/31/24 09:00 09/01/24 09:32 Furosemide Inj 40 Mg/4 Ml Vial IV PUSH 40 mg BID KIM Administration Levothyroxine Sodium 25 mcg 09/01/24 06:30 09/01/24 05:51 Levothyroxine Sodium 25 Mcg Tablet PO 25 mcg DAILY@0630 KIM Administration Methylprednisolone Sodium Succinate 60 mg 08/30/24 18:00 09/01/24 12:17 Methylprednisolone Sod Succ 125 Mg Vial IV PUSH 60 mg Q6HR KIM Administration Perflutren Lipid Microsphere 0 ml 08/31/24 01:48 Perflutren Lipid Microspheres 1.5 Ml Vial Diluted To 10 Ml Total Volume IV PUSH 09/03/24 01:48 ONCE PRN adequate visualization Protocol Perflutren Lipid Microsphere 0 ml 08/31/24 09:11 Perflutren Lipid Microspheres 1.5 Ml Vial Diluted To 10 Ml Total Volume IV PUSH 09/03/24 09:11 ONCE PRN adequate visualization Protocol Promethazine HCl 12.5 mg 08/30/24 17:37 Promethazine Hcl 25 Mg/Ml Ampul IV PUSH Q6H PRN Nausea Rivaroxaban 15 mg 09/01/24 17:00 Rivaroxaban 15 Mg Tablet PO DAILY@1700 [facility] Fluticasone/Salmeterol 2 puff 08/31/24 20:00 09/01/24 07:40 Fluticasone/Salmeterol 230-21 Mcg Inhaler 1 Puff INHALATION 2 puff Q12HRT [facility] Administration Spironolactone 12.5 mg 09/02/24 09:00 Spironolactone 12.5 Mg Tablet PO DAILY [facility] Vitamin D 2,000 units 09/01/24 09:00 09/01/24 09:31 Cholecalciferol 1,000 Units Tablet PO 2,000 units DAILY [facility] Administration Radiology Results: ITS Impressions Chest X-Ray 08/30/24 14:02 IMPRESSION: 1. Mild opacities in the lower lung zones which could represent mild pulmonary edema or pneumonia. Labs Labs: Laboratory Results - last 24 hr 09/01/24 04:41 WBC 8.7 RBC 3.96 L Hgb 12.9 L Hct 40.9 L MCV 103.3 H MCH 32.6 MCHC 31.5 L RDW 13.1 Plt Count 157 MPV 11.0 H Immature Gran % (Auto) 0.3 Neut % (Auto) 88.1 H Lymph % (Auto) 7.7 L [place] % (Auto) 3.2 Eos % (Auto) 0.6 Baso % (Auto) 0.1 L Lymph # (Auto) 0.67 L [place] # (Auto) 0.3 Eos # (Auto) 0.1 Baso # (Auto) 0.0 Abs Immat Gran (auto) 0.03 Absolute Neuts (auto) 7.7 H Absolute Nucleated RBC 0.000 Nucleated RBC % 0.0 Sodium 139 Potassium 3.7 Chloride 102 Carbon Dioxide 37 H Anion Gap 0 L BUN 41 H Creatinine 1.10 Estim Creat Clear Calc 106 Estimated GFR > 60 Glucose 156 H Calcium 8.5 Magnesium 2.5 H Total Bilirubin 0.7 AST 62 H ALT 33 Alkaline Phosphatase 78 Total Protein 6.0 L Albumin 3.2 L Quality VTE Prophylaxis VTE prophylaxis: pharmacologic ordered Hospitalist [facility] Advance Care Plan I have confirmed that the patient's Advanced Care Plan is present, code status is documented, or surrogate decision maker is listed in patient medical record.: Yes Medication Reconciliation I have utilized all available resources to obtain, update and review the patients current medications (includes all prescriptions, OTC, herbals, cannabis, and nutritional supplements).: Yes
[2024-09-01] MEDS: POTASSIUM CHLORIDE 20 MEQ ER TABLET 40 MEQ PO (14:11)
--- NOTE | 2024-09-01 14:42 | PC.NURSE ---
This patient, Omar Baldwin, was transferred to [[id number] ] on 09/01/24 at 1427. Personal belongings sent with patient. Report given to [ Eulaila juarez]. Appropriate documentation sent with patient.
[2024-09-01 17:13] LABS: Glucose Point of Care 136 mg/dl (65-105)
[2024-09-01] MEDS: RIVAROXABAN 15 MG TABLET PO (17:13)
[2024-09-01] MEDS: guaiFENesin/DEXTROMETHORPHAN 10 ML UDC PO (17:25)
[2024-09-01 20:43] LABS: Glucose Point of Care 221 mg/dl (65-105)
[2024-09-01] MEDS: ATORVASTATIN 40 MG TABLET 80 MG PO (20:53)
[2024-09-01] MEDS: INSULIN ASPART (*BKC) 100 UNITS/ML SUB-Q (20:58)
[2024-09-02] VITALS (18 sets, daily range): BP systolic 127–166; BP diastolic 76–85; PULSE 56–75; RESP 14–25; TEMP 36.3–36.6; O2SAT 91–97
[2024-09-02] MEDS: methylPREDNISolone SOD SUCC 125 MG VIAL 60 MG IV PUSH ×3 (00:16→12:58)
[2024-09-02] MEDS: IPRATROPIUM 0.5 MG/ALBUTEROL SULFATE 2.5 MG AMPUL.NEB 3 ML INHALATION ×5 (03:40→21:36)
[2024-09-02] MEDS: LEVOTHYROXINE SODIUM 25 MCG TABLET PO (05:41)
[2024-09-02 07:32] LABS: Basophils Percent Auto 0.1 % (0.2-1.2); Eosinophils Percent Auto 0.1 % (0-4.4); Hematocrit 40.9 % (42.0-52.0); Hemoglobin 13.1 g/dL (14.0-18.0); Immature Granulocyte Absolute 0.18 K/mm3 (0.00-0.031); Immature Granulocyte Percent A 1.9 % (0-0.5); Lymphocytes Absolute Auto 0.86 K/mm3 (0.9-3.2); Mean Platelet Volume 11.2 fl (7.4-10.4); Monocytes Absolute Auto 0.3 K/mm3 (0.1-0.6); Monocytes Percent Auto 3.5 % (2.6-8.5); Neutrophils Absolute Auto 8.1 K/mm3 (1.3-6.7); Neutrophils Percent Auto 85.4 % (45.5-73.1); Platelet Count Result 150 k/mm3 (150-375); Red Blood Count 3.97 M/mm3 (4.6-6.20); White Blood Count 9.5 K/mm3 (4.5-10.0)
[2024-09-02 07:38] LABS: Glucose Point of Care 143 mg/dl (65-105)
[2024-09-02 07:45] LABS: Alanine Aminotransferase 42 U/L (6-50); Albumin Level 3.2 g/dL (3.5-5.1); Alkaline Phosphatase 67 U/L (38-126); Anion Gap -2 mmol/L (4-12); Aspartate Amino Transferase 65 U/L (17-59); Bilirubin,Total 0.7 mg/dL (0.2-1.3); Blood Urea Nitrogen 41 mg/dL (9-20); Calcium 8.5 mg/dL (8.4-10.2); Carbon Dioxide 36 mmol/L (22-30); Chloride 104 mmol/L (98-107); Estimated CRCL calculation 114 ml/min; Estimated Glomerular Filt Rate > 60; Glucose 152 mg/dL (65-110); Magnesium 2.6 mg/dL (1.6-2.3); Potassium 4.3 mmol/L (3.4-5.0); Sodium 138 mmol/L (137-145)
[2024-09-02] MEDS: CHOLECALCIFEROL 1,000 UNITS TABLET 2000 UNITS PO (08:50)
[2024-09-02] MEDS: AMOXICILLIN/CLAVULANATE K 875-125 MG TAB 1 TABLET PO ×2 (08:51→21:37)
[2024-09-02] MEDS: carvediloL 12.5 MG TABLET PO ×2 (08:51→21:36)
[2024-09-02] MEDS: AZITHROMYCIN 250 MG TABLET PO (08:51)
[2024-09-02] MEDS: BENZONATATE 100 MG CAPSULE 200 MG PO ×3 (08:51→17:22)
[2024-09-02] MEDS: SPIRONOLACTONE 12.5 MG TABLET PO (08:51)
[2024-09-02] MEDS: FUROSEMIDE INJ 40 MG/4 ML VIAL IV PUSH ×2 (08:53→17:22)
[2024-09-02] MEDS: FLUTICASONE/SALMETEROL 230-21 MCG INHALER 1 PUFF 2 PUFF INHALATION ×2 (09:30→21:36)
[2024-09-02] MEDS: FLUTICASONE PROPIONATE 0.05% NA SPR 16 GM BTL (*BKC) 2 SPRAY NASAL (09:47)
[2024-09-02 11:53] LABS: Glucose Point of Care 327 mg/dl (65-105)
[2024-09-02] MEDS: INSULIN ASPART (*BKC) 100 UNITS/ML SUB-Q (12:56)
--- NOTE | 2024-09-02 14:13 | P.PNIM_ITS ---
Progress Note: A&P Assessment and Plan (1) COPD exacerbation: Code(s): J44.1 - Chronic obstructive pulmonary disease with (acute) exacerbation Status: Acute Assessment and Plan: Home inhalers: Symbicort BID, Albuterol HFA Doesn't have a nebulizer machine. Last admission for shortness of breath was in 2022 --Continue ICS (Advair subsituted for symbicort) --Continue duonebs, increased to q4 --IV solumedrol 60mg IV q6 08/31-09/02. Change to Prednisone 60 today, Pred 40 tomorrow --Tessalon perles and guaifenesin DM prn for cough (2) Morbid obesity with BMI of 60.0-69.9, adult: Code(s): E66.01 - Morbid (severe) obesity due to excess calories; Z68.44 - Body mass index [BMI] 60.0-69.9, adult Status: Acute Assessment and Plan: Complicates aspects of care. He reports weight gain recently. Remote hx DVT's, has been on xarelto [facility] In[facility] consult Continue CPAP hs for YEN Continuing xarelto (3) Acute exacerbation of CHF (congestive heart failure): Qualifiers: Heart failure type: unspecified Qualified Code(s): I50.9 - Heart failure, unspecified Code(s): I50.9 - Heart failure, unspecified Status: Resolved Assessment and Plan: Acute on chronic heart failure. Increasing edema in the setting of COPD exacerbation. Troponine elevated to 0.050 but trending down, likely demand --Continue IV lasix 40mg BID. 40meq potassium / --Follow BMP, mag (4) Acute respiratory failure with hypoxia and hypercarbia: Code(s): J96.01 - Acute respiratory failure with hypoxia; J96.02 - Acute respiratory failure with hypercapnia Status: Resolved Assessment and Plan: Wean O2 for sats >92% (5) Chronic renal failure: Code(s): N18.9 - Chronic kidney disease, unspecified Status: Resolved Assessment and Plan: Creatinine normal currently. LARISA in 2021 (6) Pneumonia: Code(s): J18.9 - Pneumonia, unspecified organism Status: Acute Assessment and Plan: 08/30 Chest x-ray showed: Mild opacities in the lower lung zones which could represent mild pulmonary edema or pneumonia. has a productive cough --Started on Ceftiraxone 08/30 changed to Augmentin 875/125 BID 08/31 through 09/06 --S/P azithromycin 500 08/30, continue 250 x4 more doses (7) Steroid-induced hyperglycemia: Code(s): R73.9 - Hyperglycemia, unspecified; T38.0X5A - Adverse effect of glucocorticoids and synthetic analogues, initial encounter Status: Acute Assessment and Plan: Prior HgbA1c 5.5 Check HgbA1c --Started SSI --May need metformin for discharge Time Spent With Patient Time: 56 minutes Subjective Date/time seen: 09/02/24 14:13 Interval history: Improving slowly. Wheezing and cough improving. Lower extremity edema improving slowly. Shortness of breath gradually improving Blood sugars elevated 2/2 steroids Exam Narrative: General - Awake and alert. No acute distress Eyes - PERRLA, EOM intact ENT - No thrush, No erythema Neck - No noticeable or palpable swelling Lymph Nodes - No lymphadenopathy Cardiovascular - RRR no m/r/g, no JVD Lungs: Mild wheezing all lung daniels, no use of accessory muscles, no crackles Skin - Skin warm and dry, no wounds or rashes Abdomen - Normal bowel sounds, abdomen soft and nontender, obese Extremities - 1-2+ edema, cyanosis or clubbing Musculoskeletal - 5/5 strength, normal range of motion, no swollen or erythematous joints. Neurological ? Alert and oriented x 3, CN 2-12 grossly intact. Exam nonfocal Psych: Normal mood and affect Objective Data Vital Signs Vital Signs: Vital Signs - 24 hr 09/01/24 15:02 09/01/24 15:57 09/01/24 16:00 Temperature 97.1 F L 96.6 F L Pulse Rate 82 72 Respiratory Rate 18 18 Blood Pressure 164/90 H 162/96 H Pulse Oximetry 91 98 92 Oxygen Delivery Nasal Cannula Oxygen Flow Rate 3 09/01/24 20:46 09/01/24 20:57 09/01/24 21:09 Temperature Pulse Rate 73 77 Respiratory Rate 20 Blood Pressure Pulse Oximetry 96 Oxygen Delivery Nasal Cannula Oxygen Flow Rate 3 09/01/24 21:10 09/01/24 21:22 09/01/24 21:24 Temperature Pulse Rate 78 Respiratory Rate 20 Blood Pressure Pulse Oximetry 96 94 Oxygen Delivery Nasal Cannula CPAP Oxygen Flow Rate 3 09/01/24 21:37 09/01/24 22:14 09/02/24 03:40 Temperature 97.7 F Pulse Rate 73 72 Respiratory Rate 20 20 Blood Pressure 133/72 156/99 H Pulse Oximetry 96 Oxygen Delivery Oxygen Flow Rate 09/02/24 03:41 09/02/24 03:51 09/02/24 06:00 Temperature 97.4 F L Pulse Rate 74 66 Respiratory Rate 25 H 22 H 18 Blood Pressure 127/76 Pulse Oximetry 95 93 Oxygen Delivery CPAP Oxygen Flow Rate 09/02/24 08:00 09/02/24 08:51 09/02/24 09:31 Temperature Pulse Rate 60 Respiratory Rate Blood Pressure Pulse Oximetry 91 91 Oxygen Delivery Nasal Cannula Nasal Cannula Oxygen Flow Rate 4 4 09/02/24 09:31 09/02/24 09:47 09/02/24 11:35 Temperature Pulse Rate 68 68 60 Respiratory Rate 20 20 20 Blood Pressure Pulse Oximetry Oxygen Delivery Oxygen Flow Rate 09/02/24 11:45 Temperature Pulse Rate 64 Respiratory Rate 20 Blood Pressure Pulse Oximetry Oxygen Delivery Oxygen Flow Rate Intake/Output Intake/Output: Intake & Output 08/30/24 08/31/24 09/01/24 09/02/24 23:59 23:59 23:59 23:59 Intake Total 202 790 9035 1105 Output Total 500 Balance 550 997 614 2217 Meds/Results Medications: Active Medications Generic Name Dose Route Start Last Admin Trade Name Freq PRN Reason Stop Dose Admin Acetaminophen 650 mg 08/30/24 17:37 Acetaminophen 325 Mg Tablet PO Q4H PRN Mild Pain (1-3) or Fever Hydrocodone Bitart/Acetaminophen 1 tab 08/30/24 17:37 09/01/24 20:57 Hydrocodone/Acetaminophen (*Crx) 5-325 Mg Tablet PO 1 tab Q4H PRN Administration Pain Rated 4-6 Albuterol 2.5 mg 08/31/24 23:03 Albuterol Sulfate Neb 2.5 Mg/3 Ml Inh INHALATION Q4HRT PRN Shortness Of Breath Albuterol/Ipratropium 3 ml 09/01/24 12:00 09/02/24 11:35 Ipratropium 0.5 Mg/Albuterol Sulfate 2.5 Mg Ampul.Neb 3 Ml INHALATION 3 ml Q4HRT KIM Administration Amoxicillin/Clavulanate Potassium 1 tablet 08/31/24 21:00 09/02/24 08:51 Amoxicillin/Clavulanate K 875-125 Mg Tab PO 09/06/24 21:00 1 tablet Q12HR KIM Administration Atorvastatin Calcium 80 mg 08/31/24 21:00 09/01/24 20:53 Atorvastatin 40 Mg Tablet PO 80 mg QHS KIM Administration Azithromycin 250 mg 09/01/24 09:00 09/02/24 08:51 Azithromycin 250 Mg Tablet PO 09/04/24 09:01 250 mg DAILY KIM Administration Benzonatate 200 mg 09/01/24 13:00 09/02/24 13:02 Benzonatate 100 Mg Capsule PO 200 mg TID KIM Administration Carvedilol 12.5 mg 08/31/24 21:00 09/02/24 08:51 Carvedilol 12.5 Mg Tablet PO 12.5 mg Q12H KIM Administration Dextrose 12.5 gm 09/01/24 13:39 Dextrose 50% 25 Gm/50 Ml Syringe IV PUSH PRN PRN Hypoglycemia Protocol Fluticasone Propionate 2 spray 09/01/24 09:00 09/02/24 09:47 Fluticasone Propionate 0.05% Na Spr 16 Gm Btl (*Bkc) NASAL 2 spray DAILY KIM Administration Furosemide 40 mg 08/31/24 09:00 09/02/24 08:53 Furosemide Inj 40 Mg/4 Ml Vial IV PUSH 40 mg BID KIM Administration Glucagon 1 mg 09/01/24 13:39 Glucagon For Inj 1 Mg Vial IM PRN PRN Hypoglycemia Protocol Glucose 15 gm 09/01/24 13:39 Glucose Oral Gel 15 Gm Of Glucse In 37.5 Gm Tube PO PRN PRN Hypoglycemia Protocol Guaifenesin/Dextromethorphan 10 ml 09/01/24 13:34 09/01/24 17:25 Guaifenesin/Dextromethorphan 10 Ml Udc PO 10 ml Q4H PRN Administration Cough Dextrose 1,000 mls @ 100 mls/hr 09/01/24 13:39 Dextrose 5% 1,000 Ml IVPB PRN PRN Hypoglycemia Protocol Insulin Aspart 3 - 6 units 09/01/24 17:00 09/02/24 12:56 Insulin Aspart (*Bkc) 100 Units/Ml SUB-Q 5 units TIDWM KIM Administration Protocol Insulin Aspart 1 - 3 units 09/01/24 21:00 09/01/24 20:58 Insulin Aspart (*Bkc) 100 Units/Ml SUB-Q 1 units HS KIM Administration Protocol Levothyroxine Sodium 25 mcg 09/01/24 06:30 09/02/24 05:41 Levothyroxine Sodium 25 Mcg Tablet PO 25 mcg DAILY@0630 KIM Administration Perflutren Lipid Microsphere 0 ml 08/31/24 01:48 Perflutren Lipid Microspheres 1.5 Ml Vial Diluted To 10 Ml Total Volume IV PUSH 09/03/24 01:48 ONCE PRN adequate visualization Protocol Perflutren Lipid Microsphere 0 ml 08/31/24 09:11 Perflutren Lipid Microspheres 1.5 Ml Vial Diluted To 10 Ml Total Volume IV PUSH 09/03/24 09:11 ONCE PRN adequate visualization Protocol Prednisone 60 mg 09/03/24 09:00 Prednisone 20 Mg Tablet PO 09/03/24 09:01 ONCE ONE Prednisone 40 mg 09/03/24 08:00 Prednisone 20 Mg Tablet PO DAILY@0800 COUNTS INCLUDE 234 BEDS AT THE [facility] Promethazine HCl 12.5 mg 08/30/24 17:37 Promethazine Hcl 25 Mg/Ml Ampul IV PUSH Q6H PRN Nausea Rivaroxaban 15 mg 09/01/24 17:00 09/01/24 17:13 Rivaroxaban 15 Mg Tablet PO 15 mg DAILY@1700 KIM Administration Fluticasone/Salmeterol 2 puff 08/31/24 20:00 09/02/24 09:30 Fluticasone/Salmeterol 230-21 Mcg Inhaler 1 Puff INHALATION 2 puff Q12HRT KIM Administration Spironolactone 12.5 mg 09/02/24 09:00 09/02/24 08:51 Spironolactone 12.5 Mg Tablet PO 12.5 mg DAILY KIM Administration Vitamin D 2,000 units 09/01/24 09:00 09/02/24 08:50 Cholecalciferol 1,000 Units Tablet PO 2,000 units DAILY KIM Administration Radiology Results: ITS Impressions Chest X-Ray 08/30/24 14:02 IMPRESSION: 1. Mild opacities in the lower lung zones which could represent mild pulmonary edema or pneumonia. Labs Labs: Laboratory Results - last 24 hr 09/01/24 09/01/24 09/02/24 17:10 20:27 07:09 WBC 9.5 RBC 3.97 L Hgb 13.1 L Hct 40.9 L MCV 103.0 H MCH 33.0 MCHC 32.0 RDW 13.0 Plt Count 150 MPV 11.2 H Immature Gran % (Auto) 1.9 H Neut % (Auto) 85.4 H Lymph % (Auto) 9.0 L Thomas % (Auto) 3.5 Eos % (Auto) 0.1 Baso % (Auto) 0.1 L Lymph # (Auto) 0.86 L Thomas # (Auto) 0.3 Eos # (Auto) 0.0 Baso # (Auto) 0.0 Abs Immat Gran (auto) 0.18 H Absolute Neuts (auto) 8.1 H Absolute Nucleated RBC 0.000 Nucleated RBC % 0.0 Sodium 138 Potassium 4.3 Chloride 104 Carbon Dioxide 36 H Anion Gap -2 L BUN 41 H Creatinine 1.00 Estim Creat Clear Calc 114 Estimated GFR > 60 Glucose 152 H POC Capillary Glucose 136 H 221 H Calcium 8.5 Magnesium 2.6 H Total Bilirubin 0.7 AST 65 H ALT 42 Alkaline Phosphatase 67 Total Protein 6.0 L Albumin 3.2 L 09/02/24 09/02/24 07:26 11:37 WBC RBC Hgb Hct MCV MCH MCHC RDW Plt Count MPV Immature Gran % (Auto) Neut % (Auto) Lymph % (Auto) Thomas % (Auto) Eos % (Auto) Baso % (Auto) Lymph # (Auto) Thomas # (Auto) Eos # (Auto) Baso # (Auto) Abs Immat Gran (auto) Absolute Neuts (auto) Absolute Nucleated RBC Nucleated RBC % Sodium Potassium Chloride Carbon Dioxide Anion Gap BUN Creatinine Estim Creat Clear Calc Estimated GFR Glucose POC Capillary Glucose 143 H 327 H Calcium Magnesium Total Bilirubin AST ALT Alkaline Phosphatase Total Protein Albumin Quality VTE Prophylaxis VTE prophylaxis: pharmacologic ordered Hospitalist MIPS Advance Care Plan I have confirmed that the patient's Advanced Care Plan is present, code status is documented, or surrogate decision maker is listed in patient medical record.: Yes Medication Reconciliation I have utilized all available resources to obtain, update and review the patients current medications (includes all prescriptions, OTC, herbals, cannabis, and nutritional supplements).: Yes
[2024-09-02 16:52] LABS: Glucose Point of Care 163 mg/dl (65-105)
[2024-09-02] MEDS: RIVAROXABAN 15 MG TABLET PO (17:23)
[2024-09-02 21:37] LABS: Glucose Point of Care 152 mg/dl (65-105)
[2024-09-02] MEDS: ATORVASTATIN 40 MG TABLET 80 MG PO (21:37)
[2024-09-03] VITALS (14 sets, daily range): BP systolic 146–150; BP diastolic 74–83; PULSE 64–77; RESP 17–20; TEMP 36.3–37.2; O2SAT 94–98
[2024-09-03] MEDS: IPRATROPIUM 0.5 MG/ALBUTEROL SULFATE 2.5 MG AMPUL.NEB 3 ML INHALATION ×4 (03:13→21:55)
[2024-09-03] MEDS: LEVOTHYROXINE SODIUM 25 MCG TABLET PO (05:44)
[2024-09-03 07:47] LABS: Glucose Point of Care 189 mg/dl (65-105)
--- NOTE | 2024-09-03 08:21 | PM.IMPN ---
Progress Note: A&P Assessment and Plan (1) COPD exacerbation: Code(s): J44.1 - Chronic obstructive pulmonary disease with (acute) exacerbation Status: Acute Assessment and Plan: Home inhalers: Symbicort BID, Albuterol HFA Doesn't have a nebulizer machine. Last admission for shortness of breath was in 2022 --Continue ICS (Advair subsituted for symbicort) --Continue duonebs, increased to q4 --IV solumedrol 60mg IV q6 08/31-09/02. Change to Prednisone 60 today, Pred 40 tomorrow --Tessalon perles and guaifenesin DM prn for cough (2) Morbid obesity with BMI of 60.0-69.9, adult: Code(s): E66.01 - Morbid (severe) obesity due to excess calories; Z68.44 - Body mass index [BMI] 60.0-69.9, adult Status: Acute Assessment and Plan: Complicates aspects of care. He reports weight gain recently. Remote hx DVT's, has been on xarelto Pediatric Dental Hygienist consult Continue CPAP hs for YEN Continuing xarelto (3) Acute exacerbation of CHF (congestive heart failure): Qualifiers: Heart failure type: unspecified Qualified Code(s): I50.9 - Heart failure, unspecified Code(s): I50.9 - Heart failure, unspecified Status: Resolved Assessment and Plan: Acute on chronic heart failure. Increasing edema in the setting of COPD exacerbation. Troponine elevated to 0.050 but trending down, likely demand --Continue IV lasix 40mg BID. 40meq potassium / --Follow BMP, mag (4) Acute respiratory failure with hypoxia and hypercarbia: Code(s): J96.01 - Acute respiratory failure with hypoxia; J96.02 - Acute respiratory failure with hypercapnia Status: Resolved Assessment and Plan: Wean O2 for sats >92% (5) Chronic renal failure: Code(s): N18.9 - Chronic kidney disease, unspecified Status: Resolved Assessment and Plan: Creatinine normal currently. LARISA in 2021 (6) Pneumonia: Code(s): J18.9 - Pneumonia, unspecified organism Status: Acute Assessment and Plan: 08/30 Chest x-ray showed: Mild opacities in the lower lung zones which could represent mild pulmonary edema or pneumonia. has a productive cough --Started on Ceftiraxone 08/30 changed to Augmentin 875/125 BID 08/31 through 09/06 --S/P azithromycin 500 08/30, continue 250 x4 more doses (7) Steroid-induced hyperglycemia: Code(s): R73.9 - Hyperglycemia, unspecified; T38.0X5A - Adverse effect of glucocorticoids and synthetic analogues, initial encounter Status: Acute Assessment and Plan: Prior HgbA1c 5.5 Check HgbA1c --Started SSI --May need metformin for discharge Subjective Date/time seen: 09/03/24 08:21 Interval history: Patient has been treated for community-acquired pneumonia. Patient is currently on Augmentin until 09/06, azithromycin until 0 6. Will taper prednisone. CTA shows no PE. Off note: Hx CHF diagnosed 2001. Recurrent PE. First diagnosed PE possibly 2001. taken Warfarin for some and stopped. 2 nd PE diagnosed 2002. Again restarted Warfarin and took it for while and stopped. 3rd PE diagnosed on 2013. Started taking Xarelto from 2013. Reports underwent coagulation workup but revelaed no significant pathology. Reported possibly due to sedentary lifestyle. Review of Systems Review of Systems: All systems reviewed & are unremarkable except as noted in HPI and below Constitutional: Constitutional: Reports chills and Reports fatigue ENT: Reports system reviewed and no additional complaints, except as documented Respiratory: Respiratory: Reports no additional respiratory complaints Gastrointestinal: Gastrointestinal: Reports no additional gastrointestinal complaints Genitourinary: Genitourinary: Reports no additional male genitourinary complaints Endocrine: Endocrine: Reports fatigue Exam Narrative: General - Awake and alert. No acute distress Eyes - PERRLA, EOM intact ENT - No thrush, No erythema Neck - No noticeable or palpable swelling Lymph Nodes - No lymphadenopathy Cardiovascular - RRR no m/r/g, no JVD Lungs: Mild wheezing all lung daniels, no use of accessory muscles, no crackles Skin - Skin warm and dry, no wounds or rashes Abdomen - Normal bowel sounds, abdomen soft and nontender, obese Extremities - 1-2+ edema, cyanosis or clubbing Musculoskeletal - 5/5 strength, normal range of motion, no swollen or erythematous joints. Neurological ? Alert and oriented x 3, CN 2-12 grossly intact. Exam nonfocal Psych: Normal mood and affect Objective Data Vital Signs Vital Signs: Vital Signs - 24 hr 09/02/24 08:51 09/02/24 09:31 09/02/24 09:31 Temperature Pulse Rate 60 68 Respiratory Rate 20 Blood Pressure Pulse Oximetry 91 Oxygen Delivery Nasal Cannula Oxygen Flow Rate 4 09/02/24 09:47 09/02/24 11:35 09/02/24 11:45 Temperature Pulse Rate 68 60 64 Respiratory Rate 20 20 20 Blood Pressure Pulse Oximetry Oxygen Delivery Oxygen Flow Rate 09/02/24 14:00 09/02/24 16:05 09/02/24 16:15 Temperature 97.8 F Pulse Rate 56 L 72 68 Respiratory Rate 20 22 H 22 H Blood Pressure 151/78 H Pulse Oximetry 96 Oxygen Delivery Oxygen Flow Rate 09/02/24 20:49 09/02/24 21:36 09/02/24 21:36 Temperature 97.6 F Pulse Rate 72 72 70 Respiratory Rate 20 20 Blood Pressure 166/85 H Pulse Oximetry 97 Oxygen Delivery Oxygen Flow Rate 09/02/24 21:37 09/02/24 21:42 09/02/24 22:05 Temperature Pulse Rate 75 Respiratory Rate 20 14 Blood Pressure Pulse Oximetry 95 95 Oxygen Delivery CPAP CPAP Oxygen Flow Rate 3 09/03/24 03:13 09/03/24 03:19 09/03/24 05:25 Temperature 97.4 F L Pulse Rate 74 77 70 Respiratory Rate 20 20 20 Blood Pressure 146/74 H Pulse Oximetry 98 Oxygen Delivery Oxygen Flow Rate Intake/Output Intake/Output: Intake & Output 08/31/24 09/01/24 09/02/24 09/03/24 23:59 23:59 23:59 23:59 Intake Total 100 1370 2585 400 Output Total 500 Balance 662 208 7135 400 Meds/Results Medications: Active Medications Generic Name Dose Route Start Last Admin Trade Name Freq PRN Reason Stop Dose Admin Acetaminophen 650 mg 08/30/24 17:37 Acetaminophen 325 Mg Tablet PO Q4H PRN Mild Pain (1-3) or Fever Hydrocodone Bitart/Acetaminophen 1 tab 08/30/24 17:37 09/01/24 20:57 Hydrocodone/Acetaminophen (*Crx) 5-325 Mg Tablet PO 1 tab Q4H PRN Administration Pain Rated 4-6 Albuterol 2.5 mg 08/31/24 23:03 Albuterol Sulfate Neb 2.5 Mg/3 Ml Inh INHALATION Q4HRT PRN Shortness Of Breath Albuterol/Ipratropium 3 ml 09/01/24 12:00 09/03/24 03:13 Ipratropium 0.5 Mg/Albuterol Sulfate 2.5 Mg Ampul.Neb 3 Ml INHALATION 3 ml Q4HRT KIM Administration Amoxicillin/Clavulanate Potassium 1 tablet 08/31/24 21:00 09/02/24 21:37 Amoxicillin/Clavulanate K 875-125 Mg Tab PO 09/06/24 21:00 1 tablet Q12HR KIM Administration Atorvastatin Calcium 80 mg 08/31/24 21:00 09/02/24 21:37 Atorvastatin 40 Mg Tablet PO 80 mg QHS KIM Administration Azithromycin 250 mg 09/01/24 09:00 09/02/24 08:51 Azithromycin 250 Mg Tablet PO 09/04/24 09:01 250 mg DAILY KIM Administration Benzonatate 200 mg 09/01/24 13:00 09/02/24 17:22 Benzonatate 100 Mg Capsule PO 200 mg TID KIM Administration Carvedilol 12.5 mg 08/31/24 21:00 09/02/24 21:36 Carvedilol 12.5 Mg Tablet PO 12.5 mg Q12H KIM Administration Dextrose 12.5 gm 09/01/24 13:39 Dextrose 50% 25 Gm/50 Ml Syringe IV PUSH PRN PRN Hypoglycemia Protocol Fluticasone Propionate 2 spray 09/01/24 09:00 09/02/24 09:47 Fluticasone Propionate 0.05% Na Spr 16 Gm Btl (*Bkc) NASAL 2 spray DAILY KIM Administration Furosemide 40 mg 08/31/24 09:00 09/02/24 17:22 Furosemide Inj 40 Mg/4 Ml Vial IV PUSH 40 mg BID KIM Administration Glucagon 1 mg 09/01/24 13:39 Glucagon For Inj 1 Mg Vial IM PRN PRN Hypoglycemia Protocol Glucose 15 gm 09/01/24 13:39 Glucose Oral Gel 15 Gm Of Glucse In 37.5 Gm Tube PO PRN PRN Hypoglycemia Protocol Guaifenesin/Dextromethorphan 10 ml 09/01/24 13:34 09/01/24 17:25 Guaifenesin/Dextromethorphan 10 Ml Udc PO 10 ml Q4H PRN Administration Cough Dextrose 1,000 mls @ 100 mls/hr 09/01/24 13:39 Dextrose 5% 1,000 Ml IVPB PRN PRN Hypoglycemia Protocol Insulin Aspart 3 - 6 units 09/01/24 17:00 09/02/24 17:21 Insulin Aspart (*Bkc) 100 Units/Ml SUB-Q Not Given TIDWM KIM Protocol Insulin Aspart 1 - 3 units 09/01/24 21:00 09/02/24 21:37 Insulin Aspart (*Bkc) 100 Units/Ml SUB-Q Not Given HS [facility] Protocol Levothyroxine Sodium 25 mcg 09/01/24 06:30 09/03/24 05:44 Levothyroxine Sodium 25 Mcg Tablet PO 25 mcg DAILY@0630 [facility] Administration Perflutren Lipid Microsphere 0 ml 08/31/24 09:11 Perflutren Lipid Microspheres 1.5 Ml Vial Diluted To 10 Ml Total Volume IV PUSH 09/03/24 09:11 ONCE PRN adequate visualization Protocol Prednisone 60 mg 09/03/24 09:00 Prednisone 20 Mg Tablet PO 09/03/24 09:01 ONCE ONE Prednisone 40 mg 09/03/24 08:00 Prednisone 20 Mg Tablet PO DAILY@0800 [facility] Promethazine HCl 12.5 mg 08/30/24 17:37 Promethazine Hcl 25 Mg/Ml Ampul IV PUSH Q6H PRN Nausea Rivaroxaban 15 mg 09/01/24 17:00 09/02/24 17:23 Rivaroxaban 15 Mg Tablet PO 15 mg DAILY@1700 [facility] Administration Fluticasone/Salmeterol 2 puff 08/31/24 20:00 09/02/24 21:36 Fluticasone/Salmeterol 230-21 Mcg Inhaler 1 Puff INHALATION 2 puff Q12HRT KIM Administration Spironolactone 12.5 mg 09/02/24 09:00 09/02/24 08:51 Spironolactone 12.5 Mg Tablet PO 12.5 mg DAILY [facility] Administration Vitamin D 2,000 units 09/01/24 09:00 09/02/24 08:50 Cholecalciferol 1,000 Units Tablet PO 2,000 units DAILY KIM Administration Radiology Results: ITS Impressions Chest X-Ray 08/30/24 14:02 IMPRESSION: 1. Mild opacities in the lower lung zones which could represent mild pulmonary edema or pneumonia. Labs Labs: Laboratory Results - last 24 hr 09/02/24 09/02/24 09/02/24 07:09 11:37 16:46 POC Capillary Glucose 327 H 163 H Hemoglobin A1c 6.0 H 09/02/24 09/03/24 21:34 07:44 POC Capillary Glucose 152 H 189 H Hemoglobin A1c Quality VTE Prophylaxis VTE prophylaxis: pharmacologic ordered Hospitalist MIPS Advance Care Plan I have confirmed that the patient's Advanced Care Plan is present, code status is documented, or surrogate decision maker is listed in patient medical record.: Yes Medication Reconciliation I have utilized all available resources to obtain, update and review the patients current medications (includes all prescriptions, OTC, herbals, cannabis, and nutritional supplements).: Yes
[2024-09-03 08:49] LABS: Basophils Percent Auto 0.1 % (0.2-1.2); Eosinophils Percent Auto 0.2 % (0-4.4); Hematocrit 45.5 % (42.0-52.0); Hemoglobin 14.5 g/dL (14.0-18.0); Immature Granulocyte Absolute 0.07 K/mm3 (0.00-0.031); Immature Granulocyte Percent A 0.6 % (0-0.5); Lymphocytes Absolute Auto 1.01 K/mm3 (0.9-3.2); Lymphocytes Percent Auto 9.4 % (18.3-44.2); Mean Corpuscular HGB Conc 31.9 g/dl (32-36); Mean Corpuscular Hemoglobin 32.6 pg (26-34); Mean Corpuscular Volume 102.2 fl (80-100); Monocytes Absolute Auto 0.7 K/mm3 (0.1-0.6); Monocytes Percent Auto 6.8 % (2.6-8.5); Neutrophils Absolute Auto 8.9 K/mm3 (1.3-6.7); Neutrophils Percent Auto 82.9 % (45.5-73.1); Platelet Count Result 170 k/mm3 (150-375); Red Blood Count 4.45 M/mm3 (4.6-6.20); Red Cell Distribution Width 13.2 % (11.5-14.5); White Blood Count 10.8 K/mm3 (4.5-10.0)
[2024-09-03 09:01] LABS: Alanine Aminotransferase 53 U/L (6-50); Albumin Level 3.6 g/dL (3.5-5.1); Alkaline Phosphatase 70 U/L (38-126); Anion Gap -1 mmol/L (4-12); Aspartate Amino Transferase 68 U/L (17-59); Bilirubin,Total 0.7 mg/dL (0.2-1.3); Blood Urea Nitrogen 38 mg/dL (9-20); Calcium 8.5 mg/dL (8.4-10.2); Carbon Dioxide 38 mmol/L (22-30); Chloride 101 mmol/L (98-107); Estimated CRCL calculation 114 ml/min; Estimated Glomerular Filt Rate > 60; Glucose 135 mg/dL (65-110); Magnesium 2.6 mg/dL (1.6-2.3); Potassium 4.4 mmol/L (3.4-5.0); Sodium 138 mmol/L (137-145)
[2024-09-03] MEDS: FUROSEMIDE INJ 40 MG/4 ML VIAL IV PUSH ×2 (09:22→16:45)
[2024-09-03] MEDS: CHOLECALCIFEROL 1,000 UNITS TABLET 2000 UNITS PO (09:22)
[2024-09-03] MEDS: predniSONE 20 MG TABLET 60 MG PO (09:23)
[2024-09-03] MEDS: BENZONATATE 100 MG CAPSULE 200 MG PO ×3 (09:23→16:45)
[2024-09-03] MEDS: AMOXICILLIN/CLAVULANATE K 875-125 MG TAB 1 TABLET PO ×2 (09:23→20:58)
[2024-09-03] MEDS: SPIRONOLACTONE 12.5 MG TABLET PO (09:23)
[2024-09-03] MEDS: carvediloL 12.5 MG TABLET PO ×2 (09:24→20:58)
[2024-09-03] MEDS: AZITHROMYCIN 250 MG TABLET PO (09:24)
[2024-09-03] MEDS: FLUTICASONE PROPIONATE 0.05% NA SPR 16 GM BTL (*BKC) 2 SPRAY NASAL (09:26)
[2024-09-03] MEDS: predniSONE 20 MG TABLET 40 MG PO (09:27)
[2024-09-03] MEDS: FLUTICASONE/SALMETEROL 230-21 MCG INHALER 1 PUFF 2 PUFF INHALATION ×2 (10:42→21:55)
[2024-09-03 11:38] LABS: Glucose Point of Care 240 mg/dl (65-105)
[2024-09-03] MEDS: INSULIN ASPART (*BKC) 100 UNITS/ML SUB-Q ×2 (13:03→18:15)
[2024-09-03 16:41] LABS: Glucose Point of Care 204 mg/dl (65-105)
[2024-09-03] MEDS: RIVAROXABAN 15 MG TABLET PO (16:45)
[2024-09-03] MEDS: ATORVASTATIN 40 MG TABLET 80 MG PO (20:57)
[2024-09-04] VITALS (16 sets, daily range): BP systolic 128–150; BP diastolic 63–88; PULSE 57–86; RESP 14–20; TEMP 35.4–36.2; O2SAT 95–99
[2024-09-04 00:44] LABS: Glucose Point of Care 134 mg/dl (65-105)
[2024-09-04] MEDS: IPRATROPIUM 0.5 MG/ALBUTEROL SULFATE 2.5 MG AMPUL.NEB 3 ML INHALATION ×5 (03:58→21:00)
[2024-09-04] MEDS: LEVOTHYROXINE SODIUM 25 MCG TABLET PO (06:00)
[2024-09-04 06:54] LABS: Basophils Percent Auto 0.2 % (0.2-1.2); Eosinophils Percent Auto 0.3 % (0-4.4); Hematocrit 40.5 % (42.0-52.0); Hemoglobin 12.8 g/dL (14.0-18.0); Immature Granulocyte Absolute 0.01 K/mm3 (0.00-0.031); Immature Granulocyte Percent A 0.2 % (0-0.5); Immature Platelet Fraction Pct 7.4 % (0.9-11.2); Lymphocytes Absolute Auto 1.18 K/mm3 (0.9-3.2); Mean Corpuscular HGB Conc 31.6 g/dl (32-36); Mean Corpuscular Hemoglobin 32.6 pg (26-34); Mean Corpuscular Volume 103.1 fl (80-100); Mean Platelet Volume 11.2 fl (7.4-10.4); Monocytes Absolute Auto 0.6 K/mm3 (0.1-0.6); Neutrophils Absolute Auto 4.4 K/mm3 (1.3-6.7); Neutrophils Percent Auto 70.3 % (45.5-73.1); Platelet Count Result 130 k/mm3 (150-375); Red Blood Count 3.93 M/mm3 (4.6-6.20); White Blood Count 6.2 K/mm3 (4.5-10.0)
[2024-09-04 07:12] LABS: Alanine Aminotransferase 61 U/L (6-50); Alkaline Phosphatase 59 U/L (38-126); Aspartate Amino Transferase 70 U/L (17-59); Bilirubin,Total 0.8 mg/dL (0.2-1.3); Blood Urea Nitrogen 38 mg/dL (9-20); Calcium 8.3 mg/dL (8.4-10.2); Carbon Dioxide > 40 mmol/L (22-30); Chloride 100 mmol/L (98-107); Estimated CRCL calculation 114 ml/min; Estimated Glomerular Filt Rate > 60; Glucose 102 mg/dL (65-110); Magnesium 2.6 mg/dL (1.6-2.3); Potassium 3.8 mmol/L (3.4-5.0); Sodium 138 mmol/L (137-145)
[2024-09-04 08:20] LABS: Glucose Point of Care 123 mg/dl (65-105)
[2024-09-04] MEDS: BENZONATATE 100 MG CAPSULE 200 MG PO ×3 (08:48→16:14)
[2024-09-04] MEDS: AMOXICILLIN/CLAVULANATE K 875-125 MG TAB 1 TABLET PO ×2 (08:49→20:55)
[2024-09-04] MEDS: CHOLECALCIFEROL 1,000 UNITS TABLET 2000 UNITS PO (08:49)
[2024-09-04] MEDS: carvediloL 12.5 MG TABLET PO ×2 (08:49→20:55)
[2024-09-04] MEDS: SPIRONOLACTONE 12.5 MG TABLET PO (08:49)
[2024-09-04] MEDS: predniSONE 20 MG TABLET 40 MG PO (08:51)
[2024-09-04] MEDS: AZITHROMYCIN 250 MG TABLET PO (08:51)
[2024-09-04] MEDS: FLUTICASONE PROPIONATE 0.05% NA SPR 16 GM BTL (*BKC) 2 SPRAY NASAL (08:52)
[2024-09-04] MEDS: FUROSEMIDE INJ 40 MG/4 ML VIAL IV PUSH ×2 (08:52→16:14)
[2024-09-04] MEDS: FLUTICASONE/SALMETEROL 230-21 MCG INHALER 1 PUFF 2 PUFF INHALATION ×2 (10:20→21:00)
[2024-09-04 11:25] LABS: Glucose Point of Care 123 mg/dl (65-105)
[2024-09-04] MEDS: RIVAROXABAN 15 MG TABLET PO (16:14)
[2024-09-04 16:34] LABS: Glucose Point of Care 188 mg/dl (65-105)
--- NOTE | 2024-09-04 17:06 | P.PNIM_ITS ---
Progress Note: A&P Assessment and Plan (1) COPD exacerbation: Code(s): J44.1 - Chronic obstructive pulmonary disease with (acute) exacerbation Status: Acute Assessment and Plan: Home inhalers: Symbicort BID, Albuterol HFA Doesn't have a nebulizer machine. Last admission for shortness of breath was in 2022 --Continue ICS (Advair subsituted for symbicort) --Continue duonebs, increased to q4 --IV solumedrol 60mg IV q6 08/31-09/02. Change to Prednisone 60 today, Pred 40 tomorrow --Tessalon perles and guaifenesin DM prn for cough (2) Morbid obesity with BMI of 60.0-69.9, adult: Code(s): E66.01 - Morbid (severe) obesity due to excess calories; Z68.44 - Body mass index [BMI] 60.0-69.9, adult Status: Acute Assessment and Plan: Complicates aspects of care. He reports weight gain recently. Remote hx DVT's, has been on xarelto [employer] consult Continue CPAP hs for YEN Continuing xarelto (3) Acute exacerbation of CHF (congestive heart failure): Qualifiers: Heart failure type: unspecified Qualified Code(s): I50.9 - Heart failure, unspecified Code(s): I50.9 - Heart failure, unspecified Status: Resolved Assessment and Plan: Acute on chronic heart failure. Increasing edema in the setting of COPD exacerbation. Troponine elevated to 0.050 but trending down, likely demand --Continue IV lasix 40mg BID. 40meq potassium / --Follow BMP, mag (4) Acute respiratory failure with hypoxia and hypercarbia: Code(s): J96.01 - Acute respiratory failure with hypoxia; J96.02 - Acute respiratory failure with hypercapnia Status: Resolved Assessment and Plan: Wean O2 for sats >92% (5) Chronic renal failure: Code(s): N18.9 - Chronic kidney disease, unspecified Status: Resolved Assessment and Plan: Creatinine normal currently. LARISA in 2021 (6) Pneumonia: Code(s): J18.9 - Pneumonia, unspecified organism Status: Acute Assessment and Plan: 08/30 Chest x-ray showed: Mild opacities in the lower lung zones which could represent mild pulmonary edema or pneumonia. has a productive cough --Started on Ceftiraxone 08/30 changed to Augmentin 875/125 BID 08/31 through 09/06 --S/P azithromycin 500 08/30, continue 250 x4 more doses (7) Steroid-induced hyperglycemia: Code(s): R73.9 - Hyperglycemia, unspecified; T38.0X5A - Adverse effect of glucocorticoids and synthetic analogues, initial encounter Status: Acute Assessment and Plan: Prior HgbA1c 5.5 Check HgbA1c --Started SSI --May need metformin for discharge Subjective Date/time seen: 09/04/24 17:06 Interval history: Patient has mild cough. Patient reports not feeling well and wants to be discharged tomorrow. Review of Systems Review of Systems: All systems reviewed & are unremarkable except as noted in HPI and below Constitutional: Constitutional: Reports chills and Reports fatigue ENT: Reports system reviewed and no additional complaints, except as documented Respiratory: Respiratory: Reports no additional respiratory complaints Gastrointestinal: Gastrointestinal: Reports no additional gastrointestinal complaints Genitourinary: Genitourinary: Reports no additional male genitourinary complaints Endocrine: Endocrine: Reports fatigue Exam Narrative: General - Awake and alert. No acute distress Eyes - PERRLA, EOM intact ENT - No thrush, No erythema Neck - No noticeable or palpable swelling Lymph Nodes - No lymphadenopathy Cardiovascular - RRR no m/r/g, no JVD Lungs: Mild wheezing all lung daniels, no use of accessory muscles, no crackles Skin - Skin warm and dry, no wounds or rashes Abdomen - Normal bowel sounds, abdomen soft and nontender, obese Extremities - 1-2+ edema, cyanosis or clubbing Musculoskeletal - 5/5 strength, normal range of motion, no swollen or erythematous joints. Neurological ? Alert and oriented x 3, CN 2-12 grossly intact. Exam nonfocal Psych: Normal mood and affect Objective Data Vital Signs Vital Signs: Vital Signs - 24 hr 09/03/24 20:00 09/03/24 20:58 09/03/24 21:55 Temperature Pulse Rate 72 74 Respiratory Rate 20 Blood Pressure Pulse Oximetry Oxygen Delivery Room Air Oxygen Flow Rate 09/03/24 22:00 09/03/24 22:07 09/03/24 22:08 Temperature 97.6 F Pulse Rate 67 76 Respiratory Rate 18 20 17 Blood Pressure 150/78 H Pulse Oximetry 97 94 Oxygen Delivery CPAP Oxygen Flow Rate 09/04/24 04:00 09/04/24 06:00 09/04/24 08:00 Temperature 96.7 F L Pulse Rate 60 Respiratory Rate 14 20 Blood Pressure 131/76 Pulse Oximetry 99 98 Oxygen Delivery CPAP Nasal Cannula Oxygen Flow Rate 4 09/04/24 08:49 09/04/24 10:15 09/04/24 10:15 Temperature Pulse Rate 66 66 66 Respiratory Rate 20 20 Blood Pressure Pulse Oximetry 95 Oxygen Delivery Nasal Cannula Oxygen Flow Rate 4 09/04/24 10:25 09/04/24 13:16 09/04/24 13:25 Temperature Pulse Rate 68 65 57 L Respiratory Rate 20 20 20 Blood Pressure Pulse Oximetry Oxygen Delivery Oxygen Flow Rate 09/04/24 14:00 09/04/24 16:47 09/04/24 16:55 Temperature 95.7 F L Pulse Rate 86 74 67 Respiratory Rate 18 20 20 Blood Pressure 128/63 Pulse Oximetry 98 Oxygen Delivery Oxygen Flow Rate Intake/Output Intake/Output: Intake & Output 09/01/24 09/02/24 09/03/24 09/04/24 23:59 23:59 23:59 23:59 Intake Total 1370 2585 2417 1040 Output Total 912 005 0203 Balance 870 2585 1617 -60 Meds/Results Medications: Active Medications Generic Name Dose Route Start Last Admin Trade Name Freq PRN Reason Stop Dose Admin Acetaminophen 650 mg 08/30/24 17:37 Acetaminophen 325 Mg Tablet PO Q4H PRN Mild Pain (1-3) or Fever Hydrocodone Bitart/Acetaminophen 1 tab 08/30/24 17:37 09/01/24 20:57 Hydrocodone/Acetaminophen (*Crx) 5-325 Mg Tablet PO 1 tab Q4H PRN Administration Pain Rated 4-6 Albuterol 2.5 mg 08/31/24 23:03 Albuterol Sulfate Neb 2.5 Mg/3 Ml Inh INHALATION Q4HRT PRN Shortness Of Breath Albuterol/Ipratropium 3 ml 09/01/24 12:00 09/04/24 16:47 Ipratropium 0.5 Mg/Albuterol Sulfate 2.5 Mg Ampul.Neb 3 Ml INHALATION 3 ml Q4HRT KIM Administration Amoxicillin/Clavulanate Potassium 1 tablet 08/31/24 21:00 09/04/24 08:49 Amoxicillin/Clavulanate K 875-125 Mg Tab PO 09/06/24 21:00 1 tablet Q12HR KIM Administration Atorvastatin Calcium 80 mg 08/31/24 21:00 09/03/24 20:57 Atorvastatin 40 Mg Tablet PO 80 mg QHS KIM Administration Benzonatate 200 mg 09/01/24 13:00 09/04/24 16:14 Benzonatate 100 Mg Capsule PO 200 mg TID KIM Administration Carvedilol 12.5 mg 08/31/24 21:00 09/04/24 08:49 Carvedilol 12.5 Mg Tablet PO 12.5 mg Q12H KIM Administration Dextrose 12.5 gm 09/01/24 13:39 Dextrose 50% 25 Gm/50 Ml Syringe IV PUSH PRN PRN Hypoglycemia Protocol Fluticasone Propionate 2 spray 09/01/24 09:00 09/04/24 08:52 Fluticasone Propionate 0.05% Na Spr 16 Gm Btl (*Bkc) NASAL 2 spray DAILY KIM Administration Furosemide 40 mg 08/31/24 09:00 09/04/24 16:14 Furosemide Inj 40 Mg/4 Ml Vial IV PUSH 40 mg BID KIM Administration Glucagon 1 mg 09/01/24 13:39 Glucagon For Inj 1 Mg Vial IM PRN PRN Hypoglycemia Protocol Glucose 15 gm 09/01/24 13:39 Glucose Oral Gel 15 Gm Of Glucse In 37.5 Gm Tube PO PRN PRN Hypoglycemia Protocol Guaifenesin/Dextromethorphan 10 ml 09/01/24 13:34 09/01/24 17:25 Guaifenesin/Dextromethorphan 10 Ml Udc PO 10 ml Q4H PRN Administration Cough Dextrose 1,000 mls @ 100 mls/hr 09/01/24 13:39 Dextrose 5% 1,000 Ml IVPB PRN PRN Hypoglycemia Protocol Insulin Aspart 3 - 6 units 09/01/24 17:00 09/04/24 12:03 Insulin Aspart (*Bkc) 100 Units/Ml SUB-Q Not Given TIDWM KIM Protocol Insulin Aspart 1 - 3 units 09/01/24 21:00 09/03/24 22:35 Insulin Aspart (*Bkc) 100 Units/Ml SUB-Q Not Given HS KIM Protocol Levothyroxine Sodium 25 mcg 09/01/24 06:30 09/04/24 06:00 Levothyroxine Sodium 25 Mcg Tablet PO 25 mcg DAILY@0630 IKM Administration Prednisone 40 mg 09/03/24 08:00 09/04/24 08:51 Prednisone 20 Mg Tablet PO 40 mg DAILY@0800 KIM Administration Promethazine HCl 12.5 mg 08/30/24 17:37 Promethazine Hcl 25 Mg/Ml Ampul IV PUSH Q6H PRN Nausea Rivaroxaban 15 mg 09/01/24 17:00 09/04/24 16:14 Rivaroxaban 15 Mg Tablet PO 15 mg DAILY@1700 KIM Administration Fluticasone/Salmeterol 2 puff 08/31/24 20:00 09/04/24 10:20 Fluticasone/Salmeterol 230-21 Mcg Inhaler 1 Puff INHALATION 2 puff Q12HRT KIM Administration Spironolactone 12.5 mg 09/02/24 09:00 09/04/24 08:49 Spironolactone 12.5 Mg Tablet PO 12.5 mg DAILY KIM Administration Vitamin D 2,000 units 09/01/24 09:00 09/04/24 08:49 Cholecalciferol 1,000 Units Tablet PO 2,000 units DAILY KIM Administration Radiology Results: ITS Impressions Chest X-Ray 08/30/24 14:02 IMPRESSION: 1. Mild opacities in the lower lung zones which could represent mild pulmonary edema or pneumonia. Chest CTA 09/03/24 11:03 IMPRESSION: No evidence of pulmonary embolism Bilateral pulmonary infiltrates, left upper lobe/lingula, right lower lobe Labs Labs: Laboratory Results - last 24 hr 09/03/24 09/04/24 09/04/24 22:11 06:41 08:03 WBC 6.2 RBC 3.93 L Hgb 12.8 L Hct 40.5 L MCV 103.1 H MCH 32.6 MCHC 31.6 L RDW 13.0 Plt Count 130 L MPV 11.2 H Immature Gran % (Auto) 0.2 Neut % (Auto) 70.3 Lymph % (Auto) 19.0 [place] % (Auto) 10.0 H Eos % (Auto) 0.3 Baso % (Auto) 0.2 Lymph # (Auto) 1.18 [place] # (Auto) 0.6 Eos # (Auto) 0.0 Baso # (Auto) 0.0 Abs Immat Gran (auto) 0.01 Absolute Neuts (auto) 4.4 Absolute Nucleated RBC 0.000 Nucleated RBC % 0.0 % Immature Plt Fraction 7.4 Sodium 138 Potassium 3.8 Chloride 100 Carbon Dioxide > 40 H Anion Gap BUN 38 H Creatinine 1.00 Estim Creat Clear Calc 114 Estimated GFR > 60 Glucose 102 POC Capillary Glucose 134 H 123 H Calcium 8.3 L Magnesium 2.6 H Total Bilirubin 0.8 AST 70 H ALT 61 H Alkaline Phosphatase 59 Total Protein 6.0 L Albumin 3.0 L 09/04/24 09/04/24 11:20 16:26 WBC RBC Hgb Hct MCV MCH MCHC RDW Plt Count MPV Immature Gran % (Auto) Neut % (Auto) Lymph % (Auto) [place] % (Auto) Eos % (Auto) Baso % (Auto) Lymph # (Auto) [place] # (Auto) Eos # (Auto) Baso # (Auto) Abs Immat Gran (auto) Absolute Neuts (auto) Absolute Nucleated RBC Nucleated RBC % % Immature Plt Fraction Sodium Potassium Chloride Carbon Dioxide Anion Gap BUN Creatinine Estim Creat Clear Calc Estimated GFR Glucose POC Capillary Glucose 123 H 188 H Calcium Magnesium Total Bilirubin AST ALT Alkaline Phosphatase Total Protein Albumin Quality VTE Prophylaxis VTE prophylaxis: pharmacologic ordered Hospitalist MIPS Advance Care Plan I have confirmed that the patient's Advanced Care Plan is present, code status is documented, or surrogate decision maker is listed in patient medical record.: Yes Medication Reconciliation I have utilized all available resources to obtain, update and review the patients current medications (includes all prescriptions, OTC, herbals, cannabis, and nutritional supplements).: Yes
[2024-09-04 20:20] LABS: Glucose Point of Care 183 mg/dl (65-105)
[2024-09-04] MEDS: ATORVASTATIN 40 MG TABLET 80 MG PO (20:55)
[2024-09-05] VITALS (13 sets, daily range): BP systolic 127; BP diastolic 67; PULSE 54–69; RESP 15–20; TEMP 36.1; O2SAT 90–98
[2024-09-05] MEDS: IPRATROPIUM 0.5 MG/ALBUTEROL SULFATE 2.5 MG AMPUL.NEB 3 ML INHALATION ×3 (03:13→13:51)
[2024-09-05] MEDS: LEVOTHYROXINE SODIUM 25 MCG TABLET PO (05:48)
[2024-09-05 06:19] LABS: Eosinophils Absolute Auto 0.1 K/mm3 (0-0.3); Eosinophils Percent Auto 1.2 % (0-4.4); Hematocrit 39.6 % (42.0-52.0); Hemoglobin 12.9 g/dL (14.0-18.0); Immature Granulocyte Absolute 0.02 K/mm3 (0.00-0.031); Immature Granulocyte Percent A 0.4 % (0-0.5); Immature Platelet Fraction Pct 6.5 % (0.9-11.2); Lymphocytes Percent Auto 17.4 % (18.3-44.2); Mean Corpuscular HGB Conc 32.6 g/dl (32-36); Mean Corpuscular Hemoglobin 32.7 pg (26-34); Mean Corpuscular Volume 100.3 fl (80-100); Mean Platelet Volume 10.9 fl (7.4-10.4); Monocytes Absolute Auto 0.5 K/mm3 (0.1-0.6); Monocytes Percent Auto 9.7 % (2.6-8.5); Neutrophils Absolute Auto 3.7 K/mm3 (1.3-6.7); Neutrophils Percent Auto 71.3 % (45.5-73.1); Platelet Count Result 120 k/mm3 (150-375); Red Blood Count 3.95 M/mm3 (4.6-6.20); Red Cell Distribution Width 12.9 % (11.5-14.5); White Blood Count 5.2 K/mm3 (4.5-10.0)
[2024-09-05 06:39] LABS: Alanine Aminotransferase 73 U/L (6-50); Albumin Level 2.9 g/dL (3.5-5.1); Alkaline Phosphatase 63 U/L (38-126); Aspartate Amino Transferase 66 U/L (17-59); Blood Urea Nitrogen 33 mg/dL (9-20); Calcium 8.1 mg/dL (8.4-10.2); Chloride 97 mmol/L (98-107); Estimated CRCL calculation 138 ml/min; Estimated Glomerular Filt Rate > 60; Glucose 105 mg/dL (65-110); Magnesium 2.5 mg/dL (1.6-2.3); Potassium 3.7 mmol/L (3.4-5.0); Sodium 138 mmol/L (137-145)
--- NOTE | 2024-09-05 07:58 | P.DS_ITS ---
DS: Admitting Diagnosis Discharge Date 09/05/2024 Admitting Diagnosis Shortness of breath DS: Discharge Diagnosis Discharge Diagnosis (1) COPD exacerbation: Code(s): J44.1 - Chronic obstructive pulmonary disease with (acute) exacerbation Status: Acute Assessment and Plan: Home inhalers: Symbicort BID, Albuterol HFA Doesn't have a nebulizer machine. Last admission for shortness of breath was in 2022 -Continue ICS (Advair subsituted for symbicort) -Continue duonebs, increased to q4 -IV solumedrol 60mg IV q6 08/31-09/02. Change to Prednisone 60 today, Pred 40 tomorrow . Will taper. -Tessalon perles and guaifenesin DM prn for cough (2) Morbid obesity with BMI of 60.0-69.9, adult: Code(s): E66.01 - Morbid (severe) obesity due to excess calories; Z68.44 - Body mass index [BMI] 60.0-69.9, adult Status: Acute Assessment and Plan: Complicates aspects of care. He reports weight gain recently. Remote hx DVT's, has been on xarelto [employer] consult Continue CPAP hs for YEN Continuing xarelto (3) Acute exacerbation of CHF (congestive heart failure): Qualifiers: Heart failure type: unspecified Qualified Code(s): I50.9 - Heart failure, unspecified Code(s): I50.9 - Heart failure, unspecified Status: Resolved Assessment and Plan: Acute on chronic heart failure. Increasing edema in the setting of COPD exacerbation. Troponine elevated to 0.050 but trending down, likely demand --Continue IV lasix 40mg BID. 40meq potassium 1/ --Follow BMP, mag (4) Acute respiratory failure with hypoxia and hypercarbia: Code(s): J96.01 - Acute respiratory failure with hypoxia; J96.02 - Acute respiratory failure with hypercapnia Status: Resolved Assessment and Plan: Wean O2 for sats >92% (5) Chronic renal failure: Code(s): N18.9 - Chronic kidney disease, unspecified Status: Resolved Assessment and Plan: Creatinine normal currently. LARISA in 2021 (6) Pneumonia: Code(s): J18.9 - Pneumonia, unspecified organism Status: Acute Assessment and Plan: 08/30 Chest x-ray showed: Mild opacities in the lower lung zones which could represent mild pulmonary edema or pneumonia. has a productive cough --Started on Ceftiraxone 08/30 changed to Augmentin 875/125 BID 08/31 through 09/06 --S/P azithromycin 500 08/30, continue 250 x4 more doses (7) Steroid-induced hyperglycemia: Code(s): R73.9 - Hyperglycemia, unspecified; T38.0X5A - Adverse effect of glucocorticoids and synthetic analogues, initial encounter Status: Acute Assessment and Plan: Prior HgbA1c 5.5 Check HgbA1c --Started SSI --May need metformin for discharge DS: Summary Hospital Course Hospital Course: 63 y/o male, with PMH of COPD, CHF, CKD, Hx of blood clots/AFIB on xarelto, who presents to the ED via EMS for shortness of breath. He was in his usual state of health until Sunday 08/26, when he noticed sinus drainage. Wednesday he was more short of breath and had a cough. Shortness of breath continued to worsen and he put himself on 2L of O2. He checks his O2 sat at home and it was down to 82%. Patient reports he developed productive cough with brown/yellow sputum, congestion, sinus drainage on Wednesday. Reports worsening cough and shortness of breath. He is retired and still drives. Lives by himself and gets around the house without an assistive device. In the last few days he has been short of breath with any activity. Possible chills, and had sweats and subjective fevers, swelling in lower extremities that has increased in the last few days. Denies CP. In the ER, he was afebrile and blood pressure was above goal, 150-173/72-97, 88- 94%. On 4L O2. Trop elevated to 0.50>0.36. EKG afib. Started on IV solumedrol q6 and scheduled nebs, as well as IV lasix and empiric Ceftiraxone and azithromycin 08/30 Chest xray showed: Mild opacities in the lower lung zones which could rep resent mild pulmonary edema or pneumonia. Home bipap ordered I assumed care on 09/03. Patient was treated for COPD exacerbation vs CHF vs PNA.Will complete Amox-Clav on 09/06. Will taper his steroids. CTA negative for PE.Underlying OHS Off note: Hx CHF diagnosed 2001. Recurrent PE. First diagnosed PE possibly 2001. taken Warfarin for some and stopped. 2 nd PE diagnosed 2002. Again restarted Warfarin and took it for while and stopped. 3rd PE diagnosed on 2013. Started taking Xarelto from 2013. Reports underwent coagulation workup but revelaed no significant pathology. Reported possibly due to sedentary lifestyle.Underlying OHS. Time Spent with Patient Time attestation: Total time spent providing and/or coordinating discharge services: Exam Narrative: General - Awake and alert. No acute distress Eyes - PERRLA, EOM intact ENT - No thrush, No erythema Neck - No noticeable or palpable swelling Lymph Nodes - No lymphadenopathy Cardiovascular - RRR no m/r/g, no JVD Lungs: Mild wheezing all lung daniels, no use of accessory muscles, no crackles Skin - Skin warm and dry, no wounds or rashes Abdomen - Normal bowel sounds, abdomen soft and nontender, obese Extremities - 1-2+ edema, cyanosis or clubbing Musculoskeletal - 5/5 strength, normal range of motion, no swollen or erythematous joints. Neurological ? Alert and oriented x 3, CN 2-12 grossly intact. Exam nonfocal Psych: Normal mood and affect DS: Data Data Completed and Pending Labs on day of discharge: Labs from last 24 hours 09/05/24 09/04/24 09/04/24 06:02 20:07 16:26 WBC 5.2 RBC 3.95 L Hgb 12.9 L Hct 39.6 L MCV 100.3 H MCH 32.7 MCHC 32.6 RDW 12.9 Plt Count 120 L MPV 10.9 H Immature Gran % (Auto) 0.4 Neut % (Auto) 71.3 Lymph % (Auto) 17.4 L [place] % (Auto) 9.7 H Eos % (Auto) 1.2 Baso % (Auto) 0.0 L Lymph # (Auto) 0.90 [place] # (Auto) 0.5 Eos # (Auto) 0.1 Baso # (Auto) 0.0 Abs Immat Gran (auto) 0.02 Absolute Neuts (auto) 3.7 Absolute Nucleated RBC 0.000 Nucleated RBC % 0.0 % Immature Plt Fraction 6.5 Sodium 138 Potassium 3.7 Chloride 97 L Carbon Dioxide Pending Anion Gap Pending BUN 33 H Creatinine 0.81 Estim Creat Clear Calc 138 Estimated GFR > 60 Glucose 105 POC Capillary Glucose 183 H 188 H Calcium 8.1 L Magnesium 2.5 H Total Bilirubin 1.0 AST 66 H ALT 73 H Alkaline Phosphatase 63 Total Protein 6.0 L Albumin 2.9 L 09/04/24 09/04/24 11:20 08:03 WBC RBC Hgb Hct MCV MCH MCHC RDW Plt Count MPV Immature Gran % (Auto) Neut % (Auto) Lymph % (Auto) [place] % (Auto) Eos % (Auto) Baso % (Auto) Lymph # (Auto) [place] # (Auto) Eos # (Auto) Baso # (Auto) Abs Immat Gran (auto) Absolute Neuts (auto) Absolute Nucleated RBC Nucleated RBC % % Immature Plt Fraction Sodium Potassium Chloride Carbon Dioxide Anion Gap BUN Creatinine Estim Creat Clear Calc Estimated GFR Glucose POC Capillary Glucose 123 H 123 H Calcium Magnesium Total Bilirubin AST ALT Alkaline Phosphatase Total Protein Albumin Preliminary micro results at discharge 08/30/24 16:49 Blood Culture - Preliminary Blood 08/30/24 16:52 Blood Culture - Preliminary Blood Discharge Plan Discharge Attending physician on discharge: Thomas Coyne Discharging Clinician: Thomas Coyne Anticipated Discharge Date/Time: 09/05/24 10:05 Patient Disposition: Home, Self-Care Activity: as tolerated Diet: heart healthy Discharge Instructions: Take precautions to avoid falls. Please take Amox-clav for 3 days and Prednisone taper as per instructions Rise slowly from a lying or sitting position. Pause before standing or walking. Contact your doctor or call 911 and come to the Emergency Room if you have any Shortness of breath,chest pain or palpitations Avoid NSAIDs (ibuprofen, naproxen, Aleve). Tylenol is safe to take. Follow-up with your primary care provider in 1-2 weeks. Please call for appointment. Follow-up with [employer] in 2-4 weeks. Please call for an appointment. Thank you for using [facility] for your health care needs. Patient Instructions: Antibiotic Form, Heart Failure (DC), Safe Use of Anticoagulants (DC) Patient Language: Turkish Stand Alone Forms: General Discharge Information Follow-up/Referrals: Leti Clemens MD [Primary Care Provider] - Discharge Medications: New amoxicillin-pot clavulanate 875-125 mg tablet 1 tablet PO Q12H Qty: 7 0RF Rx Instructions: 2 tabs (morning and Evening) x 3 days. benzonatate 100 mg Capsule 200 mg PO TID Qty: 30 0RF dextromethorphan-guaifenesin 10-100 mg/5 mL Syrup 10 ml PO Q4H PRN (Reason: Cough) Qty: 30 0RF prednisone 10 mg tablet 10 mg PO DIRECTED Qty: 14 0RF Rx Instructions: see taper instructions 30 mg for 2 days.20 mg for 2 days, 10 mg for 2 days,5 mg for 2 days Continued magnesium oxide 400 mg magnesium capsule 400 mg PO DAILY cholecalciferol (vitamin D3) 50 mcg (2,000 unit) capsule 50 mcg PO DAILY Qty: 90 0RF furosemide 40 mg tablet 40 mg PO BID Qty: 180 1RF spironolactone 25 mg tablet 12.5 mg PO DAILY Qty: 90 2RF [place]gov[place] 0.25 mg/0.5 mL pen injector 0.25 mg subcut WEEKLY Qty: 2 0RF Rx Instructions: administer weeks 1 through 4 of therapy Multivitamin 50 Plus Tablet 1 tablet PO DAILY carvedilol 25 mg tablet 12.5 mg PO Q12H albuterol sulfate 90 mcg/actuation HFA aerosol inhaler See Rx Instructions .ROUTE .COMPLEX Qty: 8.5 3RF Dose Instruction: INHALE 1 TO 2 PUFFS BY MOUTH EVERY 4 TO 6 HOURS NEEDED FOR SHORTNESS OF BREATH OR WHEEZING Rx Instructions: INHALE 1 TO 2 PUFFS BY MOUTH EVERY 4 TO 6 HOURS NEEDED FOR SHORTNESS OF BREATH OR WHEEZING budesonide-formoterol [Symbicort] 160-4.5 mcg/actuation HFA aerosol inhaler See Rx Instructions .ROUTE .COMPLEX Qty: 10.2 5RF Dose Instruction: INHALE 2 PUFFS BY MOUTH EVERY 12 HOURS. RINSE MOUTH AND SPIT AFTER EACH USE Rx Instructions: INHALE 2 PUFFS BY MOUTH EVERY 12 HOURS. RINSE MOUTH AND SPIT AFTER EACH USE levothyroxine 25 mcg tablet 25 mcg PO DAILY Qty: 90 1RF atorvastatin 80 mg tablet 80 mg PO QHS Qty: 90 1RF fluticasone propionate [Allergy Relief (fluticasone)] 50 mcg/actuation spray,suspension 2 spray intranasal DAILY Qty: 48 1RF Rx Instructions: administer into each nostril Xarelto 15 mg tablet 15 mg PO DAILY Qty: 90 1RF Rx Instructions: must administer with evening meal Date of admission: 09/01/24 13:47 Primary Care Provider: Leti Clemens Admitting Provider: Robert Smith Attending physician on admission: Jane Bowman Condition: Stable Quality VTE Prophylaxis VTE prophylaxis: pharmacologic ordered
[2024-09-05 08:25] LABS: Glucose Point of Care 118 mg/dl (65-105)
[2024-09-05] MEDS: BENZONATATE 100 MG CAPSULE 200 MG PO ×2 (08:55→13:35)
[2024-09-05] MEDS: CHOLECALCIFEROL 1,000 UNITS TABLET 2000 UNITS PO (08:55)
[2024-09-05] MEDS: predniSONE 20 MG TABLET 40 MG PO (08:55)
[2024-09-05] MEDS: SPIRONOLACTONE 12.5 MG TABLET PO (08:55)
[2024-09-05] MEDS: FUROSEMIDE INJ 40 MG/4 ML VIAL IV PUSH (08:55)
[2024-09-05] MEDS: AMOXICILLIN/CLAVULANATE K 875-125 MG TAB 1 TABLET PO (08:56)
[2024-09-05] MEDS: FLUTICASONE PROPIONATE 0.05% NA SPR 16 GM BTL (*BKC) 2 SPRAY NASAL (09:06)
[2024-09-05 09:18] LABS: Carbon Dioxide > 40 mmol/L (22-30)
[2024-09-05] MEDS: FLUTICASONE/SALMETEROL 230-21 MCG INHALER 1 PUFF 2 PUFF INHALATION (10:12)
[2024-09-05 12:04] LABS: Glucose Point of Care 130 mg/dl (65-105)
[2024-09-05] MEDS: INFLUENZA VACCINE HIGH DOSE (>64) 180 MCG/0.5 ML SYRINGE IM (13:54)
--- OUTSIDE RECORDS SUMMARY | 2024-09-06 08:47 | XMS_ITS | Encounter Summary ---
Author Organization [facility] Address [address] [place] [id number] Phone Care Team Providers Care Auto Locator Name Role Phone Julisa Clemens MD Primary Care Provider Encounter Details Date Type Department Care Team (Late st Contact Info) Description 10/20/2021 2:00 PM [employer] Office Visit [facility] Nephrology and Hypertension [address] [place] [address], [address] [place], [place] [id number] Maxim Villatoro MD [address] [facility], [address] [place] [address] Chronic kidney disease stage 2; Benign hypertension with chronic kidney disease Social History Tobacco Use Types Packs/Day Years Used Date Smoking Tobacco: Never Smokeless Tobacco: Never Alcohol Use Standard Drinks/Week Comments Not Currently 0 (1 standard drink = 0.6 oz pur e alcohol) Sex and Gender Information Value Date Recorded Sex Assigned at Not on file Gender Identity Not on file Sexual Orientation Not on file documented as of this encounter Last Filed Vital Signs Vital Sign Reading Time Taken Comments Blood Pressure 132/74 10/20/2021 2:10 PM [employer] Pulse - - Temperature 34.7 ??C (94.5 ??F) 10/20/2021 2:10 PM CS T Respiratory Rate 18 10/20/2021 2:10 PM [employer] Oxygen Saturation - - Inhaled Oxygen Concentration - - Weight 177 kg (391 lb) 10/20/2021 2:10 PM [employer] Height 182.9 cm (6') 10/20/2021 2:10 PM [employer]ER Body Mass Index 53.03 10/20/2021 2:10 PM [employer] documented in this encounter Progress Notes * Maxim Villatoro MD - 10/20/2021 2:00 PM CST FOLLOW-UP OFFICE VISIT Patient: Omar Baldwin Birthdate: 1960 PCP: Julisa Clemens MD Visit Date: 10/20/2021 INTERIM HISTORY Omar Baldwin here for follow-up regarding his elevated creatinine/renal insufficiency. He was seen about 10 weeks ago for initial evaluation of this issue. Since last seen, he appears to be doing reasonably well. No apparent distress or concerns voiced atthis time. No issues or problems to report on this clinic visit. Past medical history, social history and family history has not changed since previous visit. ALLERGIES Allergen Reactions ??? Bacitracin Unknown ??? Neomycin Unknown ??? Polymyxin B Unknown ??? Propylene Glycol Unknown MEDICATIONS Current Outpatient Medications: ??? atorvastatin (LIPITOR) 80 MG tablet, 1 (one) time each day in the evening, Disp: , Rfl: ??? carvedilol (COREG) 25 MG tablet, Take 25 mg by mouth 2 (two) times a day, Disp: , Rfl: ??? furosemide (LASIX) 40 MG tablet, Take 40 mg by mouth 2 (two) times a day, Disp: , Rfl: ??? levothyroxine (SYNTHROID) 25 MCG tablet, Take 25 mcg by mouth 1 (one) time each day, Disp: , Rfl: ??? losartan (COZAAR) 100 MG tablet, Take 100 mg by mouth 1 (one) time each day, Disp: , Rfl: ??? MAGnesium-Oxide 400 (241.3 Mg) MG tablet, Take 400 mg by mouth 1 (one) time each day, Disp: , Rfl: ??? spironolactone (ALDACTONE) 25 MG tablet, Take 12.5 mg by mouth 1 (one) time each day, Disp: , Rfl: ??? Xarelto 15 MG tablet, Take 15 mg by mouth 1 (one) time each day, Disp: , Rfl: REVIEW OF SYSTEMS Constitutional: No fever, weight loss or gain, no fatigue. No loss of appetite. Cardiovascular: No chest pain. No Orthopnea, PND. Respiratory: No cough, no sputum production, no SOB or MCDERMOTT. : No dysuria or gross hematuria. No frequency or urgency. No nocturia. Skin: No rash or itching. VITALS BP 132/74 (BP Location: Right arm, Patient Position: Sitting) Temp 94.5 ??F (34.7 ??C) Resp 18 Ht 6' (1.829 m) Wt (!) 391 lb (177 kg) BMI 53.03 kg/m?? BSA 3 m?? PHYSICAL EXAM General: Comfortable and in no acute distress Cardiovascular: Normal S1, S2; no rub Respiratory: Clear bilaterally Abdominal: Soft, non-tender, non-distended; positive bowel sounds Extremities: No cyanosis, clubbing, or edema Skin: Warm and dry RECENT LABS/IMAGING Lab Results Component Value Date BUN 35 (H) 10/09/2021 CREATININE 1.22 10/09/2021 EGFRAA 73 10/09/2021 EGFR 63 10/09/2021 NA 139 10/09/2021 K 4.4 10/09/2021 CL 103 10/09/2021 CO2 28 10/09/2021 CA 8.9 10/09/2021 PHOSPHATE 3.8 10/09/2021 ALBUMIN 3.6 10/09/2021 ALBUMIN 3.5 (L) 10/09/2021 GLUCOSE 107 (H) 10/09/2021 PROTCREATUR 82 10/09/2021 PROTCREATUR 0.082 10/09/2021 Lab Results Component Value Date COMPLEMENTC3 123 10/09/2021 COMPLEMENTC4 32 10/09/2021 Lab Results Component Value Date DAXA NEGATIVE 10/09/2021 ANCA Negative 10/09/2021 MPO <1.0 10/09/2021 PR3 <1.0 10/09/2021 BASEMENTMEMB <1.0 10/09/2021 ANTIDNADS <1 10/09/2021 NAUR 70 10/09/2021 Lab Results Component Value Date PROTEINFRACT No restricted band (M-spike) seen. 10/09/2021 UPEP No abnormal protein is observed. 10/09/2021 10/08/21 Renal U/S: right kidney 10.4cm, left kidney 9.5cm; no hydronephrosis. Creatinine, Serum/Plasma Date Value Ref Range Status 10/09/2021 1.22 0.70 - 1.25 mg/dL Final 05/28/2021 1.6 mg/dL Final 10/30/2020 2.12 mg/dL Final 10/06/2020 1.2 mg/dL Final ASSESSMENT 1. Chronic kidney disease stage 2 2. Benign hypertension with chronic kidney disease DISCUSSION/PLAN Omar has an elevated creatinine in the last several months that likely represent some chronic renal insufficiency presumably from his hypertension, vascular disease, cardiomyopathy, obstructive sleep apnea, and age. His creatinine abruptly declined in October 2020 but has since improved back to baseline. It should be noted that his creatinine of 2.12 mg/dL was following a recent hospital admission for congestive heart failure requiring more aggressive diuresis and continued diuresis on discharge. Hence, I suspect his renal function is dependent on his cardiac disease and diuretic therapy needed to maintain hisvolume status. His evaluation to date demonstrates a normal renal ultrasound, no significant proteinuria, and negative serological testing; more, importantly, his creatinine appears back to baseline. To help reduce the rate of kidney deterioration: Control BP: follow trend Control LDL cholesterol: on statin Use PREETI/ARB: on losartan Low protein diet: not an issue Benefits of slowing renal deterioration reviewed with patient in laymen's terms. Lowering blood pressure, controlling diabetes, and controlling cholesterol reduce insults to the kidney. Low protein diet helps take excess workload off of the kidney. PREETI/ARB help to decrease pressure in kidney and also decrease hormones that cause scar formation. Blood Pressure for this visit is 132/74. The follow up plan to address blood pressure is follow trend. Body mass index is 53.03 kg/m??. Follow up plan to address BMI is diet/exercise as tolerated. Continue current medications Repeat labs prior to next visit Ashley Villatoro MD documented in this encounter Plan of Treatment Not on file documented as of this encounter Procedures Procedure Name Priority Date/Time Associated Diagnosis Comments TOTAL PROTEIN W/ CREATININE, URINE, RANDOM Routine 01/13/2022 9:05 AM CDT Chronic kidney disease stage 2 Benign hypertension with chronic kidney disease RENAL FUNCTION PANEL (RFP) Routine 01/13/2022 9:05 AM CDT Chronic kidney disease stage 2 Benign hypertension with chronic kidney disease documented in this encounter Results * (ABNORMAL) Total Protein w/ Creatinine, Urine, Random (01/13/2022 9:05 AM CDT) Creatinine, Urine 31 20 - 320 mg/dL [facility] ([facility]) Protein/Creatin ine, Urine NOTE 22 - 128 mg/g creat [facility] ([facility]) Comment: THE PROTEIN VALUE IS LESS THAN 4 MG/DL THEREFORE WE ARE UNABLE TO CALCULATE EXCRETION AND/OR CREATININE RATIO. ?? Protein/Creatin ine, Urine NOTE 0.022 - 0.128 mg/mg creat [facility] [place] ([facility]) Protein, Urine <4(L) 5 - 25 mg/dL [facility] ([facility]) Comment: Verified by repeat analysis. 01/13/2022 9:05 AM CDT 01/13/2022 9:07 AM CDT Narrative [facility] [place] (ST) - 01/14/2022 4:11 PM CDT VARIFIED ALL INFO FASTING:YES FASTING: YES Resulting Agency Comment Performing Organization Information: ?Site ID: [place] ?Name: [facility] ?Address: [address] [place] [address] [place] [id number] ?Director: Fernando Choi D.O., MPH Maxim Villatoro MD LAB URINE ORDERABLES [facility] [place] ([facility]) * (ABNORMAL) Renal Function Panel (RFP) (01/13/2022 9:05 AM CDT) Glucose, Serum/Plasma 121(H) 65 - 99 mg/dL [facility] ([facility]) Comment: ? Fasting reference interval For someone without known diabetes, a glucose value between 100 and 125 mg/dL is consistent with prediabetes and should be confirmed with a follow-up test. Urea nitrogen, Serum/Plasma (BUN) 44(H) 7 - 25 mg/dL [facility] ([facility]) Creatinine, Serum/Plasma 1.43(H) 0.70 - 1.25 mg/dL [facility] ([facility]) Comment: For patients >49 years of age, the reference limit for Creatinine is approximately 13% higher for people identified as -[place]. eGFR, non 52(L) > OR = 60 mL/min/1. 73m2 [facility] ([facility]) eGFR, 60 > OR = 60 mL/min/1. 73m2 [facility] ([facility]) Urea nitrogen/Creatinin e, Serum/Plasma 31(H) 6 - 22 (calc) [facility] ([facility]) Sodium, Serum/Plasma 138 135 - 146 mmol/L [facility] ([facility]) Potassium, Serum/Plasma 4.4 3.5 - 5.3 mmol/L [facility] ([facility]) Chloride, Serum/Plasma 100 98 - 110 mmol/L [facility] ([facility]) Carbon dioxide CO2), total, Serum/Plasma 27 20 - 32 mmol/L [facility] ([facility]) Calcium, Serum/Plasma 9.9 8.6 - 10.3 mg/dL [facility] ([facility]) Phosphate, Serum/Plasma 3.8 2.5 - 4.5 mg/dL [facility] ([facility]) Albumin, Serum/Plasma 4.0 3.6 - 5.1 g/dL [facility] ([facility]) Blood (Blood, Venous) 01/13/2022 9:05 AM CDT 01/13/2022 9:07 AM CDT Narrative [facility] ([facility]) - 01/14/2022 4:11 PM CDT VARIFIED ALL INFO FASTING:YES FASTING: YES Resulting Agency Comment Performing Organization Information: ?Site ID: [place] ?Name: [facility] ?Address: [address] [id number] ?Director: Fernando Choi D.O., MPH Maxim Villatoro MD LAB BLOOD ORDERABLES [facility] [place] ([facility]) documented in this encounter Visit Diagnoses Diagnosis Chronic kidney disease stage 2 Benign hypertension with chronic kidney disease documented in this encounter Care Teams Auto Locator Relationship Specialty Start Date End Date Julisa Clemens MD [address] [place] [address] PCP - General Internal Medicine 06/04/21 documented as of this encounter
--- OUTSIDE RECORDS SUMMARY | 2024-09-06 08:47 | XMS_ITS | Encounter Summary ---
Author Organization [facility] Address [address] [place] [phone] Phone Care Team Providers Care Fur Farmer Name Role Phone Julisa Clemens MD Primary Care Provider Encounter Details Date Type Department Care Team (Late st Contact Info) Description 06/19/2021 1:15 PM CDT Office Visit [facility] Nephrology and Hypertension [facility], [address] [place] [id number] Maxim Villatoro MD [facility] [facility], SUITE [facility] [place] [address] Stage 3b chronic kidney disease (CMS-HCC); Benign hypertension with chronic kidney disease Social [...] Sign Reading Time Taken Comments Blood Pressure 130/72 06/19/2021 1:34 PM CDT Pulse - - Temperature 35.6 ??C (96 ??F) 06/19/2021 1:34 PM CDT Respiratory Rate 18 06/19/2021 1:34 PM CDT Oxygen Saturation - - Inhaled Oxygen Concentration - - Weight 165 kg (364 lb) 06/19/2021 1:34 PM CDT Height 182.9 cm (6') 06/19/2021 1:34 PM CDT Body Mass Index 49.37 06/19/2021 1:34 PM CDT documented in this encounter Progress Notes * Maxim Villatoro MD - 06/19/2021 1:15 PM CDT NEW PATIENT CONSULTATION Patient: Omar Baldwin Birthdate: 1960 Referring Provider: Julisa Clemens MD PCP: Julisa Clemens MD Visit Date: 06/19/2021 CHIEF COMPLAINT Chronic kidney disease HISTORY OF PRESENT ILLNESS Omar Baldwin is a 60 y.o. male with a past medical history as outlined below who presents for further evaluation of chronic kidney disease. The patient saw his primary care physician for routine follow-up of his chronic medical issues and problems about a few week ago. It was noted that time by his blood work that his creatinine had beenrunning somewhat higher since earlier this year so Nephrology referral/consultation was requested for further evaluation of this issue. For review his records, the patient's creatinine/ kidney function has been stable up until about October of this year. At that time, his creatinine suddenly antonio to 2.12 mg/dL from a baseline creatinine of around 1.2 mg/dL. Repeat testing done a few weeks ago showed his creatinine down to 1.6 mg/dL. It should be noted that his creatinine of 2.12 mg/dL was following a recent hospital admission for congestive heart failure requiring more aggressive diuresis and continue diuresis on discharge. Prior to that hospitalization, as already mentioned, his creatinine had been running around 1.2 mg/dL. With regard to risk factors for kidney disease, he does have hypertension for last 10-12 years in association with vascular disease (hyperlipidemia and coronary artery disease), and obstructive sleepapnea. He has no reported history of diabetes, liver disease, peripheral vascular disease, COPD, orother autoimmune disorders. He has no history of recent hospitalizations, IV contrast/dye exposure, or new medications with regard to NSAIDs or antibiotics. He reports no issues with hematuria, dysuria, nephrolithiasis, CVA/flank pain or trauma, foamy urine, frequent urinary tract infections, or urinary incontinence. He denies any other systemic issues/symptoms with regard to fevers, chills, blurry vision, headaches, abdominal pain, nausea, vomiting, diarrhea, chest pain, shortness of breath, palpitations, dizziness, or lightheadedness. Currently, on this clinic visit, he is without complaint. PAST MEDICAL HISTORY ??? Anemia ??? Anxiety ??? Atrial fibrillation (CMS-HCC) ??? Chronic kidney disease ??? Chronic systolic heart failure (CMS-HCC) ??? Gastroesophageal reflux disease ??? H/O: Deep vein thrombosis ??? Hyperlipidemia ??? Hypertension ??? Hypothyroidism ??? Obesity ??? Obstructive sleep apnea syndrome ??? Osteoarthritis ??? Personal history of pulmonary embolism ALLERGIES Allergen Reactions ??? Bacitracin Unknown ??? [...] (one) time each day, Disp: , Rfl: SOCIAL HISTORY Tobacco Use ??? Smoking status: Never Smoker ??? Smokeless tobacco: Never Used Substance Use Topics ??? Alcohol use: Not Currently ??? Drug use: Never FAMILY HISTORY Problem Relation ??? Thyroid cancer Mother ??? Leukemia Father ??? Kidney disease Father REVIEW OF SYSTEMS Constitutional: No fever, weight loss or gain, no fatigue. No loss of appetite. Eyes: No sudden change in vision, eye pain, or light sensitivity ENMT: No ringing in ear, no nasal drainage. Cardiovascular: No chest pain. No Orthopnea, PND. Respiratory: No cough, no sputum production, no SOB or MCDERMOTT. GI: No abdominal pain. No tenderness or masses. : No dysuria or gross hematuria. No frequency or urgency. No nocturia. Musculoskeletal: No weakness, cramps, or muscle aches. No joint pain. Skin: No rash or itching. Neurologic: No weakness, tingling, or numbness in extremities. No seizures. Psychiatric: Not depressed, no suicidal ideation, generally satisfied with life. Endocrine: No excessive thirst or hunger. Not excessively hot or cold. Hematologic: No abnormal bruising or bleeding. Immunologic: No seasonal allergy/hay fever, no abnormal rashes, no excessive itching. VITALS BP 130/72 (BP Location: Right arm, Patient Position: Sitting) Temp 96 ??F (35.6 ??C) Resp 18 Ht 6' (1.829 m) Wt (!) 364 lb (165 kg) BMI 49.37 kg/m?? BSA 2.9 m?? PHYSICAL EXAM Head: Atraumatic, normocephalic Eyes: PERRLA, anicteric sclerae, moist conjuntivae ENMT: Moist mucous membranes, no oral lesions or exudates Neck: Supple, no tenderness or masses Cardiovascular: Normal S1, S2; no rub Respiratory: Clear bilaterally Abdominal: Soft, non-tender, non-distended; positive bowel sounds Skin: No rash, bruising, or excoriations Extremities: No cyanosis, clubbing, or edema Functional: Comfortable and in no acute distress Cognitive: Cranial nerves 2-12 intact, no focal musculoskeletal or sensory deficits noted Psychological: Appropriate affect, alert and oriented to person, place and time RECENT LABS/IMAGES Lab Results Component Value Date BUN 26 05/28/2021 CREATININE 1.6 05/28/2021 EGFRAA 53 05/28/2021 EGFR 45 05/28/2021 NA 138 05/28/2021 K 4.3 05/28/2021 CL 101 05/28/2021 CO2 29 05/28/2021 CA 9.2 05/28/2021 ALBUMIN 3.5 05/28/2021 GLUCOSE 123 05/28/2021 Creatinine, Serum/Plasma Date Value Ref Range Status 05/28/2021 1.6 mg/dL Final 10/30/2020 2.12 mg/dL Final 10/06/2020 1.2 mg/dL Final ASSESSMENT 1. Stage 3b chronic kidney disease (CMS-HCC) 2. Benign hypertension with chronic kidney disease DISCUSSION/PLAN Omar has an elevated creatinine in the last several months that likely represent some chronic renal insufficiency Presumably from his hypertension, vascular disease, cardiomyopathy, obstructive sleep apnea, and age. However, given the abrupt decline in his kidney function in October of 2020 and his higher creatinineat this time, I do not want to discount the possibility that could be other issues and or problems contributing to his kidney dysfunction. Hence, I suspect further testing is needed to answer this question. With this in mind, I will check a renal ultrasound for better assessment of the size and structure of her kidneys and rule out any anatomical abnormalities, check some baseline serological studies torule out any instrinsic, infiltrative, or inflammatory disorder, and assess for proteinuria with a random urine protein to creatinine ratio. I will review the above results with the patient on her next clinic visit and determine our next course of action at that time. Blood Pressure for this visit is 130/72. The follow up plan to address blood pressure is follow thetrend. Body mass index is 49.37 kg/m??. Follow up plan to address BMI is diet/exercise as tolerated Thank you for allowing me to participate in the care of your patient. Ashley Villatoro MD documented in this encounter Plan of Treatment Scheduled Orders Name Type Priority Associated Diagnoses Orde r Schedule Total Protein w/ Creatinine, Urine, Random Lab Routine Stage 3b chronic kidney disease ([facility]) 1 Occurrences starting 06/19/2021 until 06/19/2022 Eosinophil, Urine Lab Routine Stage 3b chronic kidney disease ([facility]) 1 Occurrences starting 06/19/2021 until 06/19/2022 Ultrasound renal complete Imaging Routine Stage 3b chronic kidney disease ([facility]) Expected: 07/20/2021 (Approximate), Expires: 06/19/2022 documented as of this encounter Procedures Procedure Name Priority Date/Time Associated Diagnosis Comments SODIUM, URINE Routine 10/09/2021 9:00 AM HEATING AND BLENDING SUPERVISOR Stage 3b [facility] RENAL FUNCTION PANEL (RFP) Routine 10/09/2021 9:00 AM HEATING AND BLENDING SUPERVISOR Stage 3b chronic kidney disease ([facility]) ANCA SCREEN W/ MPO AND PR3 W/ REFLEX TO TITER Routine 10/09/2021 9:00 AM [facility] Stage 3b chronic kidney disease ([facility]) COMPLEMENT C3 + C4 Routine 10/09/2021 9: 00 AM [facility] Stage 3b chronic kidney disease ([facility]) PROTEIN ELECTROPHORESIS, URINE, RANDOM Routine 10/09/2021 9:00 AM [facility] Stage 3b chronic kidney disease ([facility]) GLOMERULAR BASEMENT MEMBRANE ANTIBODY (IGG), SERUM Routine 10/09/2021 9:00 AM [facility] Stage 3b chronic kidney disease ([facility]) DSDNA AB, SERUM Routine 10/09/2021 9:00 AM [facility] Stage 3b chronic kidney disease ([facility]) ANTINUCLEAR ANTIBODIES (DAXA), IFA W/ REFL TITER AND PATTERN Routine 10/09/2021 9:00 AM [facility] Stage 3b chronic kidney disease ([facility]) PROTEIN ELECTROPHORESIS, SERUM Routine 10/09/2021 9:00 AM [facility] Stage 3b chronic kidney disease ([facility]) RENAL FUNCTION PANEL (RFP) Routine 05/28/2021 RENAL FUNCTION PANEL (RFP) Routine 10/30/2020 RENAL FUNCTION PANEL (RFP) Routine 10/06/2020 documented in this encounter Results * Glomerular Basement Membrane Antibody (IGG), Serum (10/09/2021 9:00 AM HEATING AND BLENDING SUPERVISOR) Basement membrane IgG Ab, Serum <1.0 [facility] Comment: ? Value ?Interpretation ? ----- ? <1.0 ? No Antibody Detected ? > or = 1.0 ?? Antibody Detected ? Blood (Blood, Venous) 10/09/2021 9:00 AM HEATING AND BLENDING SUPERVISOR 10/09/2021 9:05 AM HEATING AND BLENDING SUPERVISOR Narrative [facility] ([facility]) - 10/19/2021 11:17 AM HEATING AND BLENDING SUPERVISOR NO DRAW FEE 2ND ORDER FASTING:YES FASTING: YES Resulting Agency Comment Performing Organization Information: ?Site ID: [id number] ?Name: [facility] ?Address: [address] [place] [id number] ?Director: Star Bowman M.D. Maxim Villatoro MD LAB BLOOD ORDERABLES Performing Organization Address [facility] de Phone Number [facility]) * Complement C3 + C4 (10/09/2021 9:00 AM HEATING AND BLENDING SUPERVISOR) Complement C3, Serum/Plasma 123 82 - 185 mg/dL [facility] ([facility]) Complement C4, Serum/Plasma 32 15 - 53 mg/dL [facility] ([facility]) Blood (Blood, Venous) 10/09/2021 9:00 AM HEATING AND BLENDING SUPERVISOR 10/09/2021 9:05 AM HEATING AND BLENDING SUPERVISOR Narrative [facility] ([facility]) - 10/19/2021 11:17 AM HEATING AND BLENDING SUPERVISOR NO DRAW FEE 2ND ORDER FASTING:YES FASTING: YES Resulting Agency Comment Performing Organization Information: ?Site ID: [place] ?Name: [facility] ?Address: [address] [place] [address] ?Director: Fernando Choi D.O., MPH Maxim Villatoro MD LAB BLOOD ORDERABLES [facility] ([facility]) * Antinuclear Antibodies (DAXA), IFA w/ Refl Titer and Pattern (10/09/2021 9:00 AM HEATING AND BLENDING SUPERVISOR) DAXA, Serum NEGATIVE NEGATIVE [facility] - [facility] ([facility]) Comment: DAXA IFA is a first line screen for detecting the presence of up to approximately 150 autoantibodies in various autoimmune diseases. A negative DAXA IFA result suggests an DAXA-associated autoimmune disease is not present at this time, but is not definitive. If there is high clinical suspicion for Sjogren's syndrome, testing for anti-SS-A/Ro antibody should be considered. Anti-Jhoana-1 antibody should be considered for clinically suspected inflammatory myopathies. AC-0: Negative International Consensus on DAXA Patterns (https://doi.org/10.1515/slzz-4287-1493) For additional information, please refer to http://education.Yamsafer/faq/AYM360 (This link is being provided for informational/ educational purposes only.) ?? Blood (Blood, Venous) 10/09/2021 9:00 AM HEATING AND BLENDING SUPERVISOR 10/09/2021 9:05 AM HEATING AND BLENDING SUPERVISOR Narrative [facility] ([facility]) - 10/19/2021 11:17 AM HEATING AND BLENDING SUPERVISOR NO DRAW FEE 2ND ORDER FASTING:YES FASTING: YES Resulting Agency Comment Performing Organization Information: ?Site ID: [place] ?Name: [facility] ?Address: [address] [place] [address] [place] [address] ?Director: Fernando Choi D.O., MPH Maxim Villatoro MD LAB BLOOD ORDERABLES [facility] ([facility]) * ANCA Screen w/ MPO and PR3 w/ Reflex to Titer (10/09/2021 9:00 AM HEATING AND BLENDING SUPERVISOR) Neutrophil Cytoplasmic Ab (ANCA), Serum Negative Negative [facility] ([facility]) Comment: ANCA Screen includes evaluation for p-ANCA, c-ANCA and atypical p-ANCA. A positive ANCA screen reflexes to titer and pattern(s), e.g., cytoplasmic pattern (c-ANCA), perinuclear pattern (p-ANCA), or atypical p-ANCA pattern. c-ANCA and p-ANCA are observed in vasculitis, whereas atypical p-ANCA is observed in IBD (Inflammatory Bowel Disease). Atypical p-ANCA is detected in about 55% to 80% of patients with ulcerative colitis but only 5% to 25% of patients with Crohn's disease. ? Antinuclear antibody (DAXA) was also detected in this sample. ??To verify the presence of DAXA and determine its titer and pattern, the test for DAXA performed by indirect immunofluorescence (IFA) on HEp-2 cells may be ordered. Myeloperoxidase Ab, Serum <1.0 <1.[address] [facility] ([facility]) Comment: Value Interpretation ?<1.0 AI: No Antibody Detected ? >or=1.0 AI: Antibody Detected Autoantibodies to myeloperoxidase (MPO) are commonly associated with the following small-vessel vasculitides: microscopic polyangiitis, polyarteritis nodosa, Churg-Anna syndrome, necrotizing and crescentic glomerulonephritis and occasionally granulomatosis with polyangiitis (GPA, Evelin's). The perinuclear IFA pattern, (p-ANCA) is based largely on autoantibody to myeloperoxidase which serves as the primary antigen. These autoantibodies are present in active disease. Proteinase 3 Ab, Serum <1.0 <1.[address] [facility] ([facility]) Comment: Value Interpretation ?<1.0 AI: No Antibody Detected ? >or=1.0 AI: Antibody Detected Autoantibodies to proteinase-3 (TX-3) are accepted as characteristic for granulomatosis with polyangiitis (GPA, Evelin's), and are detectable in 95% of the histologically proven cases. The cytoplasmic IFA pattern, (c-ANCA), is based largely on autoantibody to TX-3 which serves as the primary antigen. These autoantibodies are present in active disease. Blood (Blood, Venous) 10/09/2021 9:00 AM HEATING AND BLENDING SUPERVISOR 10/09/2021 9:05 AM HEATING AND BLENDING SUPERVISOR Narrative [facility] ([facility]) - 10/19/2021 11:17 AM HEATING AND BLENDING SUPERVISOR NO DRAW FEE 2ND ORDER FASTING:YES FASTING: YES Resulting Agency Comment Performing Organization Information: ?Site ID: [id number] ?Name: [facility] ?Address: [address] [place] [address] [place], [place] ?Director: Gregory Archibald M.D.,PhD Maxim Villatoro MD LAB BLOOD ORDERABLES [facility] ([facility]) * dsDNA AB, Serum (10/09/2021 9:00 AM HEATING AND BLENDING SUPERVISOR) DNA double strand Ab, Serum <1 IU/mL [facility] ([facility]) Comment: ? IU/mL ? Interpretation ? < or = 4 ?Negative ? 5-9 ? Indeterminate ? > or = 10 ?? Positive Blood (Blood, Venous) 10/09/2021 9:00 AM HEATING AND BLENDING SUPERVISOR 10/09/2021 9:05 AM HEATING AND BLENDING SUPERVISOR Narrative [facility] ([facility]) - 10/19/2021 11:17 AM HEATING AND BLENDING SUPERVISOR NO DRAW FEE 2ND ORDER FASTING:YES FASTING: YES Resulting Agency Comment Performing Organization Information: ?Site ID: JESSIE ?Name: [facility] ?Address: [address] [place], [place] [address] [address] ?Director: Fernando Choi D.O. MPH Maxim Villatoro MD LAB BLOOD ORDERABLES Performing Organization Address [facility] de Phone Number [facility] ([facility]) * Sodium, Urine (10/09/2021 9:00 AM HEATING AND BLENDING SUPERVISOR) Sodium, Urine 70 28 - 272 mmol/L [facility] (ST) Urine (Urine, Clean Catch) 10/09/2021 9:00 AM HEATING AND BLENDING SUPERVISOR 10/09/2021 9:05 AM HEATING AND BLENDING SUPERVISOR Narrative [facility] ([facility]) - 10/19/2021 11:17 AM HEATING AND BLENDING SUPERVISOR NO DRAW FEE 2ND ORDER FASTING:YES FASTING: YES Resulting Agency Comment Performing Organization Information: ?Site ID: JESSIE ?Name: [facility] ?Address: [address] [place], [place] [address], [place] [address] ?Director: Fernando Choi D.O., MPH Maxim Villatoro MD LAB URINE ORDERABLES Performing Organization Address [facility] de Phone Number [facility] ([facility]) * Protein Electrophoresis, Urine, Random (10/09/2021 9:00 AM HEATING AND BLENDING SUPERVISOR) Creatinine, Urine 97 20 - 320 mg/dL [facility] ([facility]) Protein/Creatinine, Urine 82 22 - 128 mg/g creat [facility] ([facility]) Protein/Creatinine, Urine 0.082 0.022 - 0.128 mg/mg creat [facility] ([facility]) Protein, Urine 8 5 - 25 mg/dL [facility] - [facility] ([facility]) Albumin/Protein, total 0 % [facility] ([facility]) Alpha 1 globulin/Protein, total 0 % [facility] ([facility]) Alpha 2 globulin/Protein, total 0 % [facility]) Beta globulin/Protein, total 0 % [facility]) Gamma globulin/Protein, total 0 % [facility]) Protein Fractions, Urine [facility]) Comment: Agarose electrophoresis of urine reveals that quantities of albumin and globulin fractions are below the level of detection by this method. No abnormal protein is observed. Urine (Urine, Clean Catch) 10/09/2021 9:00 AM HEATING AND BLENDING SUPERVISOR 10/09/2021 9:05 AM HEATING AND BLENDING SUPERVISOR Narrative [facility] - [facility] ([facility]) - 10/19/2021 11:17 AM HEATING AND BLENDING SUPERVISOR NO DRAW FEE 2ND ORDER FASTING:YES FASTING: YES Resulting Agency Comment Performing Organization Information: ?Site ID: [place] ?Name: [facility] ?Address: [address] [id number] ?Director: Fernando Choi D.O., MPH Maxim Villatoro MD LAB URINE ORDERABLES [facility] ([facility]) * (ABNORMAL) Protein Electrophoresis, Serum (10/09/2021 9:00 AM HEATING AND BLENDING SUPERVISOR) Protein, Serum/Plasma 6.6 6.1 - 8.1 g/dL [facility] ([facility]) Albumin, Serum/Plasma 3.5(L) 3.8 - 4.8 g/dL [facility] ([facility]) Alpha 1 globulin, Serum/Plasma 0.3 0.2 - 0.3 g/dL [facility] ([facility]) Alpha 2 globulin, Serum/Plasma 0.7 0.5 - 0.9 g/dL [facility] ([facility]) Beta 1 globulin, Serum/Plasma 0.5 0.4 - 0.6 g/dL [facility] ([facility]) Beta 2 globulin, Serum/Plasma 0.4 0.2 - 0.5 g/dL [facility] ([facility]) Gamma globulin, Serum/Plasma 1.3 0.8 - 1.7 g/dL [facility] ([facility]) Protein Fractions, Serum/Plasma [facility] ([facility]) Comment: Hypoalbuminemia may be seen as a result of decreased protein synthesis or protein loss. No restricted band (M-spike) seen. Blood (Blood, Venous) 10/09/2021 9:00 AM HEATING AND BLENDING SUPERVISOR 10/09/2021 9:05 AM HEATING AND BLENDING SUPERVISOR Narrative [facility] ([facility]) - 10/19/2021 11:17 AM HEATING AND BLENDING SUPERVISOR NO DRAW FEE 2ND ORDER FASTING:YES FASTING: YES Resulting Agency Comment Performing Organization Information: ?Site ID: [place] ?Name: [facility] ?Address: [address] [place] [address] ?Director: Fernando Choi D.O., MPH Maxim Villatoro MD LAB BLOOD ORDERABLES [facility] ([facility]) * (ABNORMAL) Renal Function Panel (RFP) (10/09/2021 9:00 AM HEATING AND BLENDING SUPERVISOR) Pathologist [facility] Glucose, Serum/Plasma 107(H) 65 - 99 mg/dL [facility] ([facility]) Comment: ? Fasting reference interval For someone without known diabetes, a glucose value between 100 and 125 mg/dL is consistent with prediabetes and should be confirmed with a follow-up test. Urea nitrogen, Serum/Plasma (BUN) 35(H) 7 - 25 mg/dL [facility] ([facility]) Creatinine, Serum/Plasma 1.22 0.70 - 1.25 mg/dL [facility] ([facility]) Comment: For patients >49 years of age, the reference limit for Creatinine is approximately 13% higher for people identified as -Indian. eGFR, non 63 > OR = 60 mL/min/1.7 3m2 [facility] ([facility]) eGFR, 73 > OR = 60 mL/min/1.[address] [facility] ([facility]) Urea nitrogen/Creatinin e, Serum/Plasma 29(H) 6 - 22 (calc) [facility] ([facility]) Sodium, Serum/Plasma 139 135 - 146 mmol/L [facility] ([facility]) Potassium, Serum/Plasma 4.4 3.5 - 5.3 mmol/L [facility] ([facility]) Chloride, Serum/Plasma 103 98 - 110 mmol/L [facility] ([facility]) Carbon dioxide CO2), total, Serum/Plasma 28 20 - 32 mmol/L [facility] ([facility]) Calcium, Serum/Plasma 8.9 8.6 - 10.3 mg/dL [facility]) Phosphate, Serum/Plasma 3.8 2.5 - 4.5 mg/dL [facility]) Albumin, Serum/Plasma 3.6 3.6 - 5.1 g/dL [facility] ([facility]) Blood (Blood, Venous) 10/09/2021 9:00 AM HEATING AND BLENDING SUPERVISOR 10/09/2021 9:05 AM HEATING AND BLENDING SUPERVISOR Narrative [facility] ([facility]) - 10/19/2021 11:17 AM HEATING AND BLENDING SUPERVISOR NO DRAW FEE 2ND ORDER FASTING:YES FASTING: YES Resulting Agency Comment Performing Organization Information: ?Site ID: [place] ?Name: [facility] ?Address: [address] [address] ?Director: Fernando Choi D.O., MPH Maxim Villatoro MD LAB BLOOD ORDERABLES [facility] ([facility]) * Renal Function Panel (RFP) (05/28/2021) Albumin, Serum/Plasma 3.5 g/L EXTERNAL [facility] (NON-INTERFACE D) Calcium, Serum/Plasma 9.2 mg/dL [facility] (NON-INTERFACE D) Carbon dioxide CO2), total, Serum/Plasma 29 mmol/L [facility] (NON-INTERFACE D) Chloride, Serum/Plasma 101 mmol/L [facility] (NON-INTERFACE D) Creatinine, Serum/Plasma 1.6 mg/dL [facility] (NON-INTERFACE D) Glucose, Serum/Plasma 123 mg/dL [facility] (NON-INTERFACE D) Potassium, Serum/Plasma 4.3 mmol/L [facility] (NON-INTERFACE D) Sodium, Serum/Plasma 138 mmol/L [facility] (NON-INTERFACE D) Urea nitrogen, Serum/Plasma (BUN) 26 mg/dL [facility] (NON-INTERFACE D) eGFR, non 45 mL/min [facility] (NON-INTERFACE D) eGFR, 53 mL/min [facility] (NON-INTERFACE D) Blood (Blood, Venous) Historical Provider LAB BLOOD ORDERAB LES EXTERNAL LAB (NON-INTERFACED) * Renal Function Panel (RFP) (10/30/2020) Creatinine, Serum/Plasma 2.12 mg/dL EXTERNAL LAB (NON-INTERFACE D) Blood (Blood, Venous) Historical Provider LAB BLOOD ORDERAB LES EXTERNAL LAB (NON-INTERFACED) * Renal Function Panel (RFP) (10/06/2020) Creatinine, Serum/Plasma 1.2 mg/dL EXTERNAL LAB (NON-INTERFACE D) Blood (Blood, Venous) Historical Provider LAB BLOOD ORDERAB LES EXTERNAL LAB (NON-INTERFACED) documented in this encounter Visit Diagnoses Diagnosis Stage 3b chronic kidney disease (CMS-HCC) Benign hypertension with chronic kidney disease documented in this encounter Care Teams Fur Farmer Relationship Specialty Start Date End Date Julisa Clemens MD [address] [place] [address] PCP - General Internal Medicine 06/04/21 documented as of this encounter
--- OUTSIDE RECORDS SUMMARY | 2024-09-06 08:47 | XMS_ITS | Encounter Summary ---
Author Organization [facility] Address [address] [place] [id number] Phone Care Team Providers Care Drapery And Upholstery Estimator Name Role Phone Julisa Clemens MD Primary Care Provider Encounter Details Date Type Department Care Team (Late st Contact Info) Description 06/08/2022 2:15 PM CDT Office Visit [facility] Nephrology and Hypertension [address] [place] [address], [address] [place] [address] Maxim Villatoro MD [address] [facility], [address] [place] [address] Chronic kidney disease stage 3A (CMS-HCC); Benign hypertension with chronic kidney disease [...] Sign Reading Time Taken Comments Blood Pressure 136/76 06/08/2022 2:25 PM CDT Pulse - - Temperature 35.9 ??C (96.6 ??F) 06/08/2022 2:25 PM CD T Respiratory Rate 18 06/08/2022 2:25 PM CDT Oxygen Saturation - - Inhaled Oxygen Concentration - - Weight 168 kg (370 lb) 06/08/2022 2:25 PM CDT Height 182.9 cm (6') 06/08/2022 2:25 PM CDT Body Mass Index 50.18 06/08/2022 2:25 PM CDT documented in this encounter Progress Notes * Maxim Villatoro MD - 06/08/2022 2:15 PM CDT FOLLOW-UP OFFICE VISIT Patient: Omar Baldwin Birthdate: 1960 PCP: Julisa Clemens MD Visit Date: 06/08/2022 INTERIM HISTORY Omar Baldwin here for follow-up regarding his renal insufficiency/chronic kidney disease. Since last seen, he appears to be feeling fairly well. No apparent distress or concerns stated at this time. No issues or problems to speak of on this clinic visit. Past medical history, [...] Skin: No rash or itching. VITALS BP 136/76 (BP Location: Right arm, Patient Position: Sitting) Temp 96.6 ??F (35.9 ??C) Resp 18 Ht 6' (1.829 m) Wt (!) 370 lb (168 kg) BMI 50.18 kg/m?? BSA 2.92 m?? PHYSICAL EXAM General: Comfortable and in no acute distress Cardiovascular: Normal S1, S2; no rub Respiratory: Clear bilaterally Abdominal: Soft, non-tender, non-distended; positive bowel sounds Extremities: No cyanosis, clubbing, or edema Skin: Warm and dry RECENT LABS/IMAGING Lab Results Component Value Date BUN 40 (H) 06/02/2022 CREATININE 1.59 (H) 06/02/2022 EGFRCR 48 (L) 06/02/2022 NA 139 06/02/2022 K 5.1 06/02/2022 CL 103 06/02/2022 CO2 32 06/02/2022 CA 9.8 06/02/2022 PHOSPHATE 3.4 06/02/2022 ALBUMIN 4.0 06/02/2022 GLUCOSE 127 (H) 06/02/2022 PROTCREATUR 108 06/02/2022 PROTCREATUR 0.108 06/02/2022 PTH 103 (H) 06/02/2022 VITD 49 06/02/2022 10/08/21 Renal U/S: right kidney 10.4cm, left kidney 9.5cm; no hydronephrosis. Creatinine, Serum/Plasma Date Value Ref Range Status 10/09/2021 1.22 0.70 - 1.25 mg/dL Final 05/28/2021 1.6 mg/dL Final 10/30/2020 2.12 mg/dL Final 10/06/2020 1.2 mg/dL Final ASSESSMENT 1. Chronic kidney disease stage 3A (CMS-HCC) 2. Benign hypertension with chronic kidney disease DISCUSSION/PLAN Omar has chronic renal insufficiency from his hypertension, vascular disease, cardiomyopathy, obstructive [...] ultrasound, no significant proteinuria, and negative serological testing. His creatinine seems to run ~ 1.2 - 1.6mg/dl (causing him to fluctuate between CKD stage 2 and stage 3A) To help reduce the rate of kidney [...] formation. Blood Pressure for this visit is 136/76. The follow up plan to address blood pressure is follow trend. Body mass index is 50.18 kg/m??. Follow up plan to address BMI is diet/exercise as tolerated. Continue current medications Repeat labs prior to next visit Ashley Villatoro MD documented in this encounter Plan of Treatment Scheduled Orders Name Type Priority Associated Diagnoses Orde r Schedule Renal Function Panel (RFP) Lab Routine Chronic kidney disease stage 3A ([facility]-HCC) Benign hypertension with chronic kidney disease Expected: 09/08/2022, Expires: 06/08/2023 Total Protein w/ Creatinine, Urine, Random Lab Routine Chronic kidney disease stage 3A (CMS-HCC) Benign hypertension with chronic kidney disease Expected: 09/08/2022, Expires: 06/08/2023 documented as of this encounter Visit Diagnoses Diagnosis Chronic kidney disease stage 3A (CMS-HCC) Benign hypertension with chronic kidney disease documented in this encounter Care Teams Drapery And Upholstery Estimator Relationship Specialty Start Date End Date Julisa Clemens MD [address] [place] [address] PCP - General Internal Medicine 06/04/21 documented as of this encounter
--- OUTSIDE RECORDS SUMMARY | 2024-09-06 08:47 | XMS_ITS | Clinical Summary ---
Author Organization [facility] Address [address] [place] [phone] Phone Care Team Providers Care Java Lead Name Role Phone Julisa Clemens MD Primary Care Provider Allergies Active Allergy Reactions Criticality Noted Date Comments Bacitracin 06/18/2021 Neomycin 06/18/2021 Polymyxin B 06/18/2021 Propylene Glycol 01/18/2017 Medications Medication Sig Dispensed Refills Start Date End Date Status atorvastatin (LIPITOR) 80 MG tablet 1 (one) time each day in the evening 05/20/2021 Active carvedilol (COREG) 25 MG tablet Take 25 mg by mouth 2 (two) times a day 05/19/2021 Active furosemide (LASIX) 40 MG tablet Take 40 mg by mouth 2 (two) times a day 04/13/2021 Active levothyroxine (SYNTHROID) 25 MCG tablet Take 25 mcg by mouth 1 (one) time each day 04/09/2021 Active losartan (COZAAR) 100 MG tablet Take 100 mg by mouth 1 (one) time each day 05/19/2021 Active MAGnesium-Oxide 400 (241.3 Mg) MG tablet Take 400 mg by mouth 1 (one) time each day 05/20/2021 Active Xarelto 15 MG tablet Take 15 mg by mouth 1 (one) time each day 04/16/2021 Active spironolactone (ALDACTONE) 25 MG tablet Take 12.5 mg by mouth 1 (one) time each day 05/01/2021 Active Active Problems Problem Noted Date Diagnosed Date Anemia 07/09/2021 Anxiety 07/09/2021 Chronic kidney disease 07/09/2021 Hyperlipidemia 07/09/2021 Osteoarthritis 07/09/2021 Disorder of kidney 05/05/2018 Dizziness 02/03/2018 Acute injury of kidney 01/19/2017 Infective pneumonia 01/18/2017 Essential hypertension 11/04/2016 Gastroesophageal reflux disease 11/27/2015 H/O: Deep vein thrombosis 11/27/2015 Abnormal result of cardiovascular function study 08/13/2014 Overview (06/18/2021): EF is 30% per Echocardiogram on 04/2014 Cardiomegaly 08/13/2014 Overview (06/18/2021): CTA PULMONARY Diastolic congestive heart failure 08/13/2014 Overview (06/18/2021): per ECHO CARDIOGRAM. EF IS 30% Morbid (severe) obesity due to excess calories 1 10/14/2013 Overview (06/18/2021): BMI is 48.8 Obstructive sleep apnea 08/13/2014 Other pulmonary embolism without acute cor pulmo nale 08/13/2014 Overview (06/18/2021): CTA PULMONARY RUL PULMONARY EMBOLISM Disseminated intravascular coagulation 4 Hypothyroidism 07/02/2014 Poisoning by vitamin K 07/02/2014 Proteinuria 07/02/2014 Atrial fibrillation 06/29/2014 H/O: hypertension 06/29/2014 Immunizations Name Administration Dates Next Due Sars-cov-2, Unspecified 11/17/2020 Family History Medical History Relation Comments Kidney disease Father Leukemia Father Thyroid cancer Mother Relation Status Comments Father Mother Social History Tobacco Use Types Packs/Day Years Used Date Smoking Tobacco: Never Smokeless Tobacco: Never Alcohol Use Standard Drinks/Week Comments Not Currently 0 (1 standard drink = 0.6 oz pur e alcohol) Sex and Gender Information Value Date Recorded Sex Assigned at Not on file Gender Identity Not on file Sexual Orientation Not on file Last Filed Vital Signs Vital Sign Reading [...] Mass Index 50.18 06/08/2022 2:25 PM CDT Plan of Treatment Health Maintenance Due Date Last Done Comments Pneumococcal PPSV23/PCV13 65 + Years / High and Highest Risk (1 of 4 - PCV) 1966 Influenza Vaccine (#1) 2024 Care Teams Java Lead Relationship Specialty Start Date End Date Julisa Clemens MD [address] [place] [address] PCP - General Internal Medicine 06/04/21
--- OUTSIDE RECORDS SUMMARY | 2024-09-06 08:47 | XMS_ITS | Encounter Summary ---
Author Organization [facility] Address [address] [place] [address] Phone Care Team Providers Care Guide Rail Cleaner Name Role Phone Julisa Clemens MD Primary Care Provider Encounter Details Date Type Department Care Team (Latest Contact Info) Description 01/28/2022 11:30 AM CDT Office Visit [facility]pertension [address] [place] [address], [address] [place], [place] [id number] Maxim Villatoro MD [address] [facility], [address] [place] [address] Secondary hyperparathyroidism (CMS-HCC) (Primary Dx); Chronic kidney disease stage 3A (CMS-HCC); Benign hypertension with chronic kidney disease; Vitamin D deficiency, not otherwise specified Social History Tobacco Use Types Packs/Day Years [...] Sign Reading Time Taken Comments Blood Pressure 134/74 01/28/2022 11:34 AM CDT Pulse - - Temperature 35.9 ??C (96.6 ??F) 01/28/2022 11:34 AM C DT Respiratory Rate 18 01/28/2022 11:34 AM CDT Oxygen Saturation - - Inhaled Oxygen Concentration - - Weight 173 kg (381 lb) 01/28/2022 11:34 AM CDT Height 182.9 cm (6') 01/28/2022 11:34 AM CDT Body Mass Index 51.67 01/28/2022 11:34 AM CDT documented in this encounter Progress Notes * Maxim Villatoro MD - 01/28/2022 11:30 AM CDT FOLLOW-UP OFFICE VISIT Patient: Omar Baldwin Birthdate: 1960 PCP: Julisa Clemens MD Visit Date: 01/28/2022 INTERIM HISTORY Omar Baldwin here for follow-up regarding his elevated creatinine/renal insufficiency. He seems to be doing relatively well sine I last saw him. No apparent distress or concerns expressed at this time. No issues or problems conveyed on this clinic visit. Past medical history, [...] Skin: No rash or itching. VITALS BP 134/74 (BP Location: Right arm, Patient Position: Sitting) Temp 96.6 ??F (35.9 ??C) Resp 18 Ht 6' (1.829 m) Wt (!) 381 lb (173 kg) BMI 51.67 kg/m?? BSA 2.96 m?? PHYSICAL EXAM General: Comfortable and in no acute distress Cardiovascular: Normal S1, S2; no rub Respiratory: Clear bilaterally Abdominal: Soft, non-tender, non-distended; positive bowel sounds Extremities: No cyanosis, clubbing, or edema Skin: Warm and dry RECENT LABS/IMAGING Lab Results Component Value Date BUN 44 (H) 01/13/2022 CREATININE 1.43 (H) 01/13/2022 EGFRAA 60 01/13/2022 EGFR 52 (L) 01/13/2022 NA 138 01/13/2022 K 4.4 01/13/2022 CL 100 01/13/2022 CO2 27 01/13/2022 CA 9.9 01/13/2022 PHOSPHATE 3.8 01/13/2022 ALBUMIN 4.0 01/13/2022 GLUCOSE 121 (H) 01/13/2022 PROTCREATUR NOTE 01/13/2022 PROTCREATUR NOTE 01/13/2022 10/08/21 Renal U/S: right kidney 10.4cm, left [...] fluctuate between CKD stage 2 and stage 3b) To help reduce the rate of kidney [...] formation. Blood Pressure for this visit is 134/74. The follow up plan to address blood pressure is follow trend. Body mass index is 51.67 kg/m??. Follow up plan to address BMI is diet/exercise as tolerated. Continue current medications Repeat labs prior to next visit Ashley Villatoro MD documented in this encounter Plan of Treatment Not on file documented as of this encounter Procedures Procedure Name Priority Date/Time Associated Diagnosis Comments TOTAL PROTEIN W/ CREATININE, URINE, RANDOM Routine 06/02/2022 8:54 AM CDT Chronic kidney disease stage 3A ([facility]-HCC) Benign hypertension with chronic kidney disease Secondary hyperparathyroidism ([facility]-HCC) Vitamin D deficiency, not otherwise specified [facility]? ? 25-HYDROXY VITAMIN D (D2, D3) Routine 06/02/2022 8:54 AM CDT Chronic kidney disease stage 3A (CMS-HCC) Benign hypertension with chronic kidney disease Secondary hyperparathyroidism (CMS-HCC) Vitamin D deficiency, not otherwise specified RENAL FUNCTION PANEL (RFP) Routine 06/02/2022 8:54 AM CDT Chronic kidney disease stage 3A (CMS-HCC) Benign hypertension with chronic kidney disease Secondary hyperparathyroidism (CMS-HCC) Vitamin D deficiency, not otherwise specified PTH INTACT W/O CALCIUM, SERUM Routine 06/02/2022 8:54 AM CDT Chronic kidney disease stage 3A ([facility]-HCC) Benign hypertension with chronic kidney disease Secondary hyperparathyroidism ([facility]-HCC) Vitamin D deficiency, not otherwise specified documented in this encounter Results * [facility]??? 25-Hydroxyvitamin D (D2, D3) (06/02/2022 8:54 AM CDT) [facility] 25-Hydroxyvitamin D2+25-Hydroxyvitamin D3, Serum/Plasma 49 30 - 100 ng/mL [facility] ([facility]) Comment: (Note) Vitamin D, 25-Hydroxy reports concentrations of two ??common forms, 25-OHD2 and 25-OHD3. 25-OHD3 indicates ??both endogenous production and supplementation. ??25-OHD2 is an indicator of exogenous sources such as ??diet or supplementation. ??Therapy is based on ??measurement of Total 25-OHD, with levels <20 ng/mL ??indicative of Vitamin D deficiency, while levels ??between 20 ng/mL and 30 ng/mL suggest insufficiency. ??Optimal levels are > or = 30 ng/mL. ??Vitamin D is fat-soluble and therefore inadvertent or ??intentional ingestion of excessively high amounts ??could be toxic. Studies in children and adults suggest ??blood levels would need to exceed 150 ng/mL before ??there is any concern. Micky MF, Roberto Carlos NC, ??Adrián THOMPSON, et al. Evaluation, treatment and ??prevention of vitamin D deficiency: an Endocrine ??Society clinical practice guideline. J Clin Endocrinol ??Metab. 2011;96(7):1911-30. ??For additional information, please refer to ??http://education.[employer]/faq/FTX358 Cholecalciferol (Vitamin D3), Serum/Plasma 49 ng/mL [facility] ([facility]) Comment:Reference range: Not established Calciferol (Vitamin D2), Serum/Plasma <4.0 ng/mL [facility] ([facility]) Comment: (Note) Reference range: Not established This test was developed and its analytical performance characteristics have been determined by [employer]. It has not been cleared or approved by the US Food and Drug Administration. This assay has been validated pursuant to the CLIA regulation and is used for Clinical purposes. [facility] [address] [address],[address] [place] [address] Jason Lindsey MD See Note 1 Note 1 For additional information, please refer to http://education.[employer]/faq/TZK417 (This link is being provided for informational/ educational purposes only.) Blood (Blood, Venous) 06/02/2022 8:54 AM CDT 06/02/2022 8:54 AM CDT Narrative [facility] [place] ([facility]) - 06/05/2022 4:58 PM CDT FASTING:YES FASTING: YES Resulting Agency Comment Performing Organization Information: ?Site ID: [id number] ?Name: [facility] ?Address: [address] [place] [address], [address] [place] [id number] ?Director: Jason Lindsey MD Maxim Villatoro MD LAB BLOOD ORDERABLES [facility] [place] ([facility]) * (ABNORMAL) PTH Intact w/o Calcium, Serum (06/02/2022 8:54 AM CDT) PTH, Intact, Serum/Plasma 103(H) 16 - 77 pg/mL [facility] [place] (ST) Comment: Interpretive Guide ?Intact PTH ? Calcium ? ------- Normal Parathyroid ?Normal ? Normal Hypoparathyroidism ?Low or Low Normal ?Low Hyperparathyroidism ?? Primary ?Normal or High ? High ?? Secondary ?High ? Normal or Low ?? Tertiary ? High ? High Non-Parathyroid ?? Hypercalcemia ?Low or Low Normal ?High Blood (Blood, Venous) 06/02/2022 8:54 AM CDT 06/02/2022 8:54 AM CDT Narrative [employer] - [facility] ([facility]) - 06/05/2022 4:58 PM CDT FASTING:YES FASTING: YES Resulting Agency Comment Performing Organization Information: ?Site ID: [id number] ?Name: [facility] ?Address: [address] [place] [address] [place] [address] ?Director: Fernando Choi D.O., MPH Maxim Villatoro MD LAB BLOOD ORDERABLES [facility] ([facility]) * (ABNORMAL) Total Protein w/ Creatinine, Urine, Random (06/02/2022 8:54 AM CDT) Creatinine, Urine 37 20 - 320 mg/dL [facility] ([facility]) Protein/Creatin ine, Urine 108 25 - 148 mg/g creat [facility] ([facility]) Protein/Creatin ine, Urine 0.108 0.025 - 0.148 mg/mg creat [facility] ([facility]) Protein, Urine 4(L) 5 - 25 mg/dL [facility] ([facility]) 06/02/2022 8:54 AM CDT 06/02/2022 8:54 AM CDT Narrative [facility] ([facility]) - 06/05/2022 4:58 PM CDT FASTING:YES FASTING: YES Resulting Agency Comment Performing Organization Information: ?Site ID: [id number] ?Name: [facility] ?Address: [address] [phone] ?Director: Fernando Choi D.O., MPH Maxim Villatoro MD LAB URINE ORDERABLES [facility] [place] ([facility]) * (ABNORMAL) Renal Function Panel (RFP) (06/02/2022 8:54 AM CDT) Glucose, Serum/Plasma 127(H) 65 - 99 mg/dL [facility] [place] ([facility]) Comment: ? Fasting reference interval For someone without known diabetes, a glucose value >125 mg/dL indicates that they may have diabetes and this should be confirmed with a follow-up test. Urea nitrogen, Serum/Plasma (BUN) 40(H) 7 - 25 mg/dL [facility] [place] ([facility]) Creatinine, Serum/Plasma 1.59(H) 0.70 - 1.35 mg/dL [facility] [place] ([facility]) Estimated Glomerular Filtration Rate (eGFR) 48(L) > OR = 60 mL/min/1.7 3m2 [facility] [place] ([facility]) Comment: The eGFR is based on the CKD-EPI 2020 equation. To calculate the new eGFR from a previous Creatinine or Cystatin C result, go to https://www.kidney.org/professionals/ kdoqi/gfr%5Fcalculator Urea nitrogen/Creati nine, Serum/Plasma 25(H) 6 - 22 (calc) [facility] ([facility]) Sodium, Serum/Plasma 139 135 - 146 mmol/L [facility] ([facility]) Potassium, Serum/Plasma 5.1 3.5 - 5.3 mmol/L [facility] ([facility]) Chloride, Serum/Plasma 103 98 - 110 mmol/L [facility] ([facility]) Carbon dioxide CO2), total, Serum/Plasma 32 20 - 32 mmol/L [facility] ([facility]) Calcium, Serum/Plasma 9.8 8.6 - 10.3 mg/dL [facility] ([facility]) Phosphate, Serum/Plasma 3.4 2.5 - 4.5 mg/dL [facility] ([facility]) Albumin, Serum/Plasma 4.0 3.6 - 5.1 g/dL [facility] ([facility]) Blood (Blood, Venous) 06/02/2022 8:54 AM CDT 06/02/2022 8:54 AM CDT Narrative [facility] ([facility]) - 06/05/2022 4:58 PM CDT FASTING:YES FASTING: YES Resulting Agency Comment Performing Organization Information: ?Site ID: [id number] ?Name: [facility] ?Address: [address] [place] [id number] ?Director: Fernando Choi D.O., MPH Maxim Villatoro MD LAB BLOOD ORDERABLES [facility] [place] ([facility]) documented in this encounter Visit Diagnoses Diagnosis Secondary hyperparathyroidism (CMS-HCC)- Primary Chronic kidney disease stage 3A (CMS-HCC) Benign hypertension with chronic kidney disease Vitamin D deficiency, not otherwise specified documented in this encounter Care Teams Guide Rail Cleaner Relationship Specialty Start Date End Date Julisa Clemens MD [address] [place] [address] PCP - General Internal Medicine 06/04/21 documented as of this encounter
--- OUTSIDE RECORDS SUMMARY | 2024-09-06 08:47 | XMS_ITS | Data Portability ---
Author Organization [place] - [facility] OFFICE Address [address] [place] [address] Care Team Providers Care Manager Business Name Role Phone ASHLEY FONTANEZ Primary Care Provider ASHLEY FONTANEZ Referring Provider CHESTER KC Primary Care Provider [phone] Assessment Encounter Date Assessment Date Assessment LastModified by Organization Details LastModified Time 06/27/2020 06/27/2020 Discussed with patient findings, diagnosis, and prognosis. Discussed evaluation and treatment options including risks and benefits with patient, and patient expressed understanding. The following interventions were recommended: heart healthy low-fat, low-sodium diet, continue regular exercise, maintain appropriate weight, continue current medications, and medical follow-up as noted. Not available 06/26/2020 17:23:26 Plan of Treatment Reminders Order Date Submit Date Provider Last Modified By Organization Details Last Modified Time Details Appointments None recorded. Lab None recorded. Referral None recorded. Procedures None recorded. Surgeries None recorded. Imaging None recorded. Medication Orders Xarelto 15 mg tablet 2019 020 [facility] #[id number], [address], [place], [id number], 0 12:02:42 atorvastat in 80 mg tablet 2019 020 [facility] #[id number], [address], [place], [id number], 0 12:04:37 [facility]ol 25 mg tablet [address] [facility], [address], [place], [id number], 0 12:02:48 furosemide 40 mg tablet [address] [facility], [address], [place], [id number], 0 12:03:27 magnesium oxide 400 mg (241.3 mg magnesium) tablet [facility], [address], [place], [id number], 0 12:03:31 [facility] 100 mg tablet [facility], [address], [place], [id number], 0 12:03:33 spironolac tone 25 mg tablet 2019 [facility], [address], [place], [id number], 0 12:04:37 atorvastat in 80 mg tablet [address] [facility] [address], [place], [id number], 2 16:02:39 carvedilol 25 mg tablet [address] [facility] [address], [place], [id number], 2 16:02:40 furosemide 40 mg tablet [address] [facility], [address], [place], [id number], 16:02:42 losartan 100 mg tablet 2021 [facility] #55874, [address], [place], [id number], 16:02:42 magnesium oxide 400 mg (241.3 mg magnesium) tablet 2021 [facility] #91423, [address], [place], [id number], 16:02:38 spironolac tone 25 mg tablet 2021 [facility] #30119, [address], [place], [id number], 16:02:39 Xarelto 15 mg tablet 2021 [facility] #80858, [address], [place], [id number], 16:02:38 Patient TargetsNo targets recorded. Patient Instructions Encounter Date Encounter Id Patient Instructions Last Modified By Organization Details Last Modified Time 06/27/2020 [id number] elevated blood pressure: care instructions [email or web address] Not available 06/27/2020 12:02:35 When You Want to Lose Weight: Care Instructions [email or web address] Not available 06/27/2020 12:02:36 dizziness: care instructions [email or web address] Not available 06/27/2020 12:02:36 sleep apnea: car e instructions [email or web address] Not available 06/27/2020 12:02:36 atrial fibrillation: care instructions [email or web address] Not available 06/27/2020 12:02:36 high blood pressure: care instructions [email or web address] Not available 06/27/2020 12:02:36 learning about high blood pressure [email or web address] Not available 06/27/2020 12:02:36 01/16/2021 [id number] sleep apnea: car e instructions [email or web address] Not available 01/16/2021 14:33:47 dizziness: care instructions [email or web address] Not available 01/16/2021 14:33:47 When You Want to Lose Weight: Care Instructions [email or web address] Not available 01/16/2021 14:33:48 atrial fibrillation: care instructions Not available 01/16/2021 14:33:48 high blood pressure: care instructions [email or web address] Not available 01/16/2021 14:33:48 learning about high blood pressure [email or web address] Not available 01/16/2021 14:33:48 Exercise advised Low cholesterol diet advised Low sodium diet advised [email or web address] Not available 01/16/2021 14:33:08 Scribed by Luann Guillory [facility] Not available 01/16/2021 14:33:11 08/14/2021 [id number] sleep apnea: car e instructions [email or web address] Not available 08/14/2021 16:34:33 dizziness: care instructions [email or web address] Not available 08/14/2021 16:34:33 When You Want to Lose Weight: Care Instructions [email or web address] Not available 08/14/2021 16:34:33 atrial fibrillation: care instructions [email or web address] Not available 08/14/2021 16:34:33 high blood pressure: care instructions [email or web address] Not available 08/14/2021 16:34:33 learning about high blood pressure [email or web address] Not available 08/14/2021 16:34:33 Reason for Referral None Reported. Results Created Date Observation Date Name Description Value Unit Range Abnormal Flag Note LastModifiedBy Organization Detail LastModifiedTime 08/26/20 21 08/14/2021 elect rocar diogr am No observ ation record ed. [email or web address] Not Available 2020 09:44:22 02/17/20 22 02/12/2022 elect rocar diogr am No observ ation record ed. [email or web address] Not Available 2021 09:48:45 08/19/20 22 08/13/2022 elect rocar diogr am No observ ation record ed. [email or web address] Not Available 2021 10:46:32 Result Notes None recorded. Problems Name Problem SNOMED Code Status Onset Date Resolution Date Notes Provider Name and Address Organization Details Recorded Time Chronic kidney disease 033965625 Active 2020 Lynn Grierdhara [place], [place] - [facility] 3 17:51:45 Anemia 162707014 Active 2020 Bailey Cherriedh[place] [facility] 15:16:19 Anxiety 90605766 Active 2020 Bailey Cherried[place] [facility] 15:16:27 Hyperlip idemia 05011840 Active 2020 Bailey Cherried[place] [facility] 3 17:51:51 Hypothyr oidism 09096869 Active 2020 Lynn Grierdhara [place] [facility] 3 17:51:55 Osteoart hritis 612350093 Active 2020 Bailey Cherried[place] [facility] 15:17:24 History of hyperten nasima 545201322 Active 2013 Ashwin choudhary, [place] - [facility] 6 12:34:34 Atrial fibrilla tion 82363356 Active 2013 Ashwin Mariano [place] [facility] 6 12:35:21 Pulmonar y embolism 31660743 Active 2015 Initially diagnosed in 2001 ,He was in coumad[place] Ashwin choudhary [place] - [facility] 6 12:36:45 Congesti ve heart failure 05067944 Completed 201512/03/2015 Steven Chris [place] - [facility] 6 12:23:19 Obstruct ester sleep apnea syndrome 46262677 Active 2015 on CPAP Lynn Sutton [facility], [place] - [facility] 3 17:52:12 History of deep vein thrombos is 335185717 Active 2015 Initially in 2001,2002 Ashwin choudhary[place] - [facility] 6 12:39:30 Morbid obesity 034715634 Active 2015 for the last 10 years 195-230 Ibs till he was 43 then he gained to more than 300 Ibs Ashwin Mariano [place] [facility] 6 12:43:24 Gastroes ophageal reflux disease 394182099 Active 2015 Ashwin [place]ary[place] - [facility] 6 12:42:09 [facility] hyperten nasima 22390453 Active 2016 Lynn Grierdh[place] [facility] 3 17:51:49 Dizzines s 876198347 Active 2017 Steven Tello[place] [facility] 8 15:06:32 Kidney disease 79482277 Active 2017 Steven Sen[place]i [place] [facility] 8 16:43:48 Problem Notes None recorded. Procedures Surgical History None recorded. Imaging Results Imaging Date Name Status LastModified by Organization Details LastModified Time 08/14/2021 electrocardiogram completed Informa tion not available 08/26/2021 09:44:22 02/12/2022 electrocardiogram completed Informa tion not available 02/16/2022 09:48:45 08/13/2022 electrocardiogram completed Informa tion not available 08/19/2022 10:46:32 Procedure Notes None recorded. Medical Equipment None Reported. Allergies Allergen ID Allergen Name Allergen Category Reaction Reaction Severity Criticality Documentation Date Start Date Code Code System Note Provider Name and Address Organization Details Recorded Time 42383 bacitraci n medicatio n Not available Not available Not available 07/09/2021 1291 RxNorm Bailey Mesto [place], [place] - [facility] 15:17:49 97588 neomycin medicatio n Not available Not available Not available 07/09/2021 7299 RxNorm Bailey M[place] [facility] 15:17:59 25271 polymyxin B medicatio n Not available Not available Not available 07/09/2021 8536 RxNorm Bailey Mesto [place] [facility] 15:18:10 28066 propylene glycol medicatio n Not available Not available Not available 07/09/2021 57045 RxNorm Lynn Sutton [place] - [facility] 15:18:32 Medications Name Sig Start Date Stop Date Status Note LastModified by Organization Details LastModified Time atorvastat in calcium 80 mg tabs 12/20 completed Not Available Not Available Not Available furosemide 40 mg tabs BID 12/20 completed Not Available Not Available Not Available xarelto no dispense - new NO DISPENSE 08/14 completed Not Available Not Available Not Available losartan potassium 50 mg tabs 09/06 completed Not Available Not Available Not Available xarelto 15 mg tabs 03/09 completed Not Available Not Available Not Available losartan potassium 100 mg tabs qd AM 12/20 completed pt not taking 12/21/19 Not Available Not Available Not Available xarelto 20 mg tabs 03/09 completed Not Available Not Available Not Available spironolac tone 25 mg tabs 09/28 completed Not Available Not Available Not Available carvedilol 25 mg tabs 12.5 mg BID. 09/28 completed Not Available Not Available Not Available levothyrox ine sodium 25 mcg tabs qd 12/20 completed Not Available Not Available Not Available losartan 50 mg tablet Take 1 tablet every day by oral route in the evening. 12/20 completed Not Available Not Available Not Available furosemide 40 mg tablet TAKE 1 TABLET BY MOUTH TWICE DAILY 2023 active Not Available Not Available Not Avai lable metolazone 2.5 mg tablet TAKE 1 TABLET BY MOUTH EVERY DAY NEEDED 07/07 completed Not Available Not Available Not Available atorvastat in 80 mg tablet TAKE 1 TABLET BY MOUTH EVERY DAY IN THE EVENING active Not Available Not Available No t Available carvedilol 25 mg tablet TAKE 1 TABLET BY MOUTH TWICE DAILY active Not Available Not Available No t Available carvedilol 6.25 mg tablet 1 tab 2 times a day 05/18 completed Not Available Not Available Not Available carvedilol 12.5 mg tablet TAKE 1 TABLET BY MOUTH TWICE DAILY active Not Available Not Available No t Available azithromyc in 250 mg tablet TK 2 TS PO ON DAY 1, THEN TK 1 T PO D FOR 4 DAYS 01/16 completed not taking 01/16/21 sp Not Available Not Available Not Available hydrocodon e 5 mg-acetami nophen 325 mg tablet 02/12 completed no longer take 02/12/22 mb Not Available Not Available Not Available lisinopril 20 mg tablet 05/18 completed Not Available Not Available Not Available prednisone 20 mg tablet TAKE 2 TABLETS BY MOUTH DAILY AT 8 AM FOR 5 DAYS active Not Available Not Available No t Available spironolac tone 25 mg tablet TAKE 1/2 TABLET BY MOUTH DAILY active Not Available Not Available No t Available levothyrox ine 25 mcg tablet TAKE 1 TABLET BY MOUTH DAILY active Not Available Not Available No t Available amoxicilli n 875 mg tablet 05/18 completed Not Available Not Available Not Available potassium chloride ER 20 mEq tablet,ext ended release(pa rt/cryst) 12/02 completed Not Available Not Available Not Available magnesium oxide 400 mg (241.3 mg magnesium) tablet TAKE 1 TABLET BY MOUTH EVERY DAY 2022 active Not Available Not Available Not Avai lable ciprofloxa odette 0.3 % eye drops 01/16 completed Not Available Not Available Not Available benzonatat e 100 mg capsule TAKE 1 CAPSULE BY MOUTH THREE TIMES DAILY NEEDED FOR COUGH active Not Available Not Available No t Available lisinopril 5 mg tablet 12/02 completed Not Available Not Available Not Available losartan 100 mg tablet TAKE 1 TABLET BY MOUTH EVERY DAY active Not Available Not Available No t Available fluticason e propionate 50 mcg/actuat ion nasal spray,susp ension SHAKE LIQUID AND USE 2 SPRAYS IN EACH NOSTRIL DAILY active Not Available Not Available No t Available doxycyclin e hyclate 100 mg tablet 09/28 completed pt. no longer takes 09/28/19 20 FH Not Available Not Available Not Available amoxicilli n 875 mg-potassi um clavulanat e 125 mg tablet TAKE 1 TABLET BY MOUTH TWICE DAILY 08/20 completed Not Available Not Available Not Available metoprolol tartrate 25 mg tablet 12/02 completed Not Available Not Available Not Available magnesium magnesiu m oxide 400 mg tablet ,1 each once a day 05/18 completed Not Available Not Available Not Available levothyrox ine Strength 0.025 mg qd1 each once a day 05/18 completed (synthr oid) Not Available Not Available Not Available Vitamin D3 08/20 completed Not Available Not Available Not Available Xarelto 15 mg tablet active Not Available Not Available No t Available Xarelto 20 mg tablet qd 06/27 completed pt not taking 0 RM Not Available Not Available Not Available Multi Vitamin 08/20 completed Not Available Not Available Not Available Paxlovid 300 mg (150 mg x 2)-100 mg tablets in a dose pack TAKE 2 NIRMATRE LVIR TABLETS AND 1 RITONAVI R TABLET TOGETHER BY MOUTH TWICE DAILY FOR 5 DAYS active Not Available Not Available No t Available Vitals Date Recorded Body height Heart rate Systolic blood pressure Diastolic blood pressure Provider Name and Address Organization Details Last Updated DateTime 06/27/2020 182.88 cm 71 /min 127 mm[Hg] 89 mm[Hg] Ema [facility] 06/27/2020 11:18:22 Date Recorded Body height Heart rate Oxygen saturation Oxygen saturation in Arterial blood by Pulse oximetry Body mass index (BMI) Body weight Systolic blood pressure Diastolic blood pressure Provider Name and Address Organization Details Last Updated DateTime 1 182.88 cm 80 /min 91 % 91 % 51.5 kg/m2 677493. 1 g 125 mm[Hg] 79 mm[Hg] CURT KHOURY [facility] 1 14:04:09 Date Recorded Body height Body mass index (BMI) Body weight Heart rate Oxygen saturation Oxygen saturation in Arterial blood by Pulse oximetry Systolic blood pressure Diastolic blood pressure Provider Name and Address Organization Details Last Updated DateTime 1 182.88 cm 48.8 kg/m2 144004. 25 g 77 /min 95 % 95 % 140 mm[Hg] 80 mm[Hg] Vanessa Sousa [facility] 1 15:33:00 Date Recorded Body height Body mass index (BMI) Body weight Heart rate Oxygen saturation Oxygen saturation in Arterial blood by Pulse oximetry Systolic blood pressure Diastolic blood pressure Provider Name and Address Organization Details Last Updated DateTime 2 182.88 cm 47.1 kg/m2 122061. 55 g 83 /min 93 % 93 % 136 mm[Hg] 64 mm[Hg] Bobbi Ramona [facility] 2 15:26:34 Date Recorded Body height Body mass index (BMI) Body weight Oxygen saturation Oxygen saturation in Arterial blood by Pulse oximetry Heart rate Systolic blood pressure Diastolic blood pressure Provider Name and Address Organization Details Last Updated DateTime 2 182.88 cm 51.5 kg/m2 864902. 1 g 93 % 93 % 103 /min 132 mm[Hg] 86 mm[Hg] SCOTT LUNA [facility] 2 16:02:12 Social History Question Answer Notes LastModified by Organizat ion Details LastModified Time Tobacco Smoking Status Never Smoker Lynn choudhary [facility] 12/01/2015 20:25:14 Do You Have An Advance Directive? Yes [email or web address] Information not available 12/03/2015 What Is Your Level Of Alcohol Consumption? Occasional Information not available 12/01/2015 What Type Of Diet Are You Following? REGULAR [email or web address] Information not available 12/03/2015 Do You Or Have You Ever Used E-cigarettes Or Vape? Never Used Electronic Cigarettes Information not available 09/26/2019 What Was The Date Of Your Most Recent Tobacco Screening? 07/07/2018 Information not available 03/23/2019 Do You Or Have You Ever Used Smokeless Tobacco? Never Used Smokeless Tobacco Information not available 09/26/2019 How Much Tobacco Do You Smoke? No Information not available 09/26/2019 General Stress Level Medium [email or web address] Information not available 12/03/2015 Do You Use Any Illicit Or Recreational Drugs? No Information not available 07/09/2021 How Many Years Have You Smoked Tobacco? 0 Information not available 06/02/2017 Sex: Unknown Functional Status Question Answer Note LastModified by Organization D etails LastModified Time What is your exercise level? None [email or web address] Information not available 12/03/2015 Mental Status None recorded. Family History Relationship Description Onset Age of this Age Resolved Age Notes LastModified by Organization Details LastModified Time Mother Congestive heart failure [email or web address] Not available 2015 20:24:26 Mother Malignant tumor of thyroid gland [email or web address] Not available 2020 15:19:40 Father Cardiomyopat hy hmesto Not available 2015 20:25:00 Father Leukemia hmesto Not available 1 09/08/2020 15:19:54 Father Kidney disease hmesto Not available 2020 15:20:05 Medical History Condition Response Coronary Artery Disease N Thyroid Disease Y Atrial Fibrillation Y Depression N Congenital Heart Disease N COPD N Peripheral Arterial Disease N Pacemaker N TIA N Genitourinary Disease N Gastrointestinal Disease N Deep Vein Thrombosis Y Diabetes N Cardiomyopathy N Blood Clot Y Myocardial Infarction N Congestive Heart Failure (CHF) Y Valvular Heart Disease N Hyperlipidemia N Cancer N Stroke N Atrial Flutter N Carotid Disease N Sleep Apnea Y Warfarin Management N Sleep Disorder N High Cholesterol N GERD/Reflux Y Liver Disease N Valvular Abnormalities N Heart Disease Y Hypertension Y Kidney Disease N Hematologic Disease N Past Encounters Encounter ID Performer Location Encounter Start Date Encounter Closed Date Diagnosis/Indication Diagnosis SNOMED-CT Code Diagnosis ICD10 Code Diagnosis Note [id number] Steven Young Office [address] [place] [address] 12/03/2015 11:12:59 12/03/2015 12:06:15 Atrial fibrillation 64786064 I48.91 History of hypertension 159198856 Z86.79 Patient's blood pressure is {{well-con trolled no t well-contr olled*}} on present medical therapy. Patient is {{tolerati ng, without difficulty ,* having side effects with}} the current medication s. I have {{not made made the following* }} changes to the current regimen: Increase Carvedilol to 12.5 BID.{{ Pat ient is advised to maintain a blood pressure diary.*}}R ecent ECHO showed normal LV systolic function 9EF > 55%) and mild pulmonary HTN. Pt does have moderate LAE. History of deep vein thrombosis 411456240 Z86.718 cont Xarelto Morbid obesity 014983116 E66.01 Pt was referred for gastric bypass surgery and awaits insurance approval for that reason. Will request copy of lipid panel and BMP from . According to pt his HgbA1C was normal. Obstructiv e sleep apnea syndrome 45949455 G47.33 on CPAP Pulmonary embolism 47443 003 I26.99 At [facility] ed risk for cardiovascular event 468287734 Z78.9 Essential hypertension 71544936 I10 [id number] Perez [place] OFFICE [address] [place] [address] 05/18/2016 11:15:07 05/19/2016 12:53:44 Atrial fibrillation 83092656 I48.91 Discussed diagnosis of atrial fibrillati on, including pathophysi ology and prognosis. Discussed importance of controllin g blood pressure, exercising regularly, and minimizing alcohol, caffeine, and decongesta nts. Advised patient to seek medical attention for palpitatio ns, chest pain, dizziness or syncope, shortness of breath, or any other new or concerning symptoms. Patient is on novel oral anticoagul ant, beta-block er, and patient was advised to take medication as prescribed . Fall precaution s reviewed. Stroke and bleeding risks reviewed with patient. History of hypertension 573779325 Z86.79 Patient's blood pressure is {{somewhat well-contr olled# wel l-controll ed not well-contr olled}} on present medical therapy. Patient is {{tolerati ng, without difficulty ,* having side effects with}} the current medication s. I have {{not made* made the following} } changes to the current regimen: {{ Patient is advised to maintain a blood pressure diary.*}}R ecent ECHO showed normal LV systolic function EF > 55% and mild pulmonary HTN. Pt does have moderate LAE. History of deep vein thrombosis 280782327 Z86.718 Continue Xarelto. Morbid obesity 314346690 E66.01 Pt was referred for gastric bypass surgery and awaits insurance approval for that reason. Will request copy of lipid panel and BMP from . According to pt his HgbA1C was normal. Obstructiv e sleep apnea syndrome 61751213 G47.33 on CPAP. continue. Pulmonary embolism 33600 003 I26.99 On Xarelto. [address] [facility] OFFICE [address] [place] [address] 07/20/2016 11:11:58 07/21/2016 09:41:49 History of hypertension 400986664 Z86.79 Patient's blood pressure is {{well-con trolled no t well-contr olled*}} on present medical therapy. Patient is {{tolerati ng, without difficulty ,* having side effects with}} the current medication s. I have {{not made made the following* }} changes to the current regimen: Increase Coreg to 25 BIB.{{ Pat ient is advised to maintain a blood pressure diary.*}}L ast ECHO showed normal LV systolic function EF > 55% and mild pulmonary HTN. Pt does have moderate LAE.Will arrange for BP machine. Pulmonary embolism 90819 003 I26.99 On Xarelto. Obstructiv e sleep apnea syndrome 49058269 G47.33 on CPAP. continue. Morbid obesity 250026206 E66.01 Pt was referred for gastric bypass surgery and awaits insurance approval for that reason. Will request copy of lipid panel and BMP from . According to pt his HgbA1C was normal. Atrial fibrillation 4943 6004 I48.91 Discussed diagnosis of atrial fibrillati on, including pathophysi ology and prognosis. Discussed importance of controllin g blood pressure, exercising regularly, and minimizing alcohol, caffeine, and decongesta nts. Advised patient to seek medical attention for palpitatio ns, chest pain, dizziness or syncope, shortness of breath, or any other new or concerning symptoms. Patient is on novel oral anticoagul ant, beta-block er, and patient was advised to take medication as prescribed . Fall precaution s reviewed. Stroke and bleeding risks reviewed with patient. History of deep vein thrombosis 156176090 Z86.718 Continue Xarelto. Essential hypertension 02703332 I10 [address] [facility] OFFICE [address] [place] [address] 11/05/2016 14:57:19 11/06/2016 12:50:13 Atrial fibrillation 87534524 I48.91 Discussed diagnosis of atrial fibrillati on, including pathophysi ology and prognosis. Discussed importance of controllin g blood pressure, exercising regularly, and minimizing alcohol, caffeine, and decongesta nts. Advised patient to seek medical attention for palpitatio ns, chest pain, dizziness or syncope, shortness of breath, or any other new or concerning symptoms. Patient is on novel oral anticoagul ant, beta-block er, and patient was advised to take medication as prescribed . Fall precaution s reviewed. Stroke and bleeding risks reviewed with patient. History of hypertension 661610752 Z86.79 Patient's blood pressure is {{relative ly well-contr olled# wel l-controll ed not well-contr olled}} on present medical therapy. Patient is {{tolerati ng, without difficulty ,* having side effects with}} the current medication s. I have {{not made* made the following} } changes to the current regimen: {{ Patient is advised to maintain a blood pressure diary.*}}L ast ECHO showed normal LV systolic function EF > 55% and mild pulmonary HTN. Pt does have moderate LAE.Will arrange for BP machine. ECHO before next appt History of deep vein thrombosis [id number] Z86.718 Continue Xarelto. Morbid obesity [id number] E66.01 Pt was referred for gastric bypass surgery and awaits insurance approval for that reason. his HgbA1C was normal. Obstructiv e sleep apnea syndrome 91734010 G47.33 on CPAP. will refer for pulmonary evaluation Pulmonary embolism 81653 003 I26.99 On Xarelto. 13404 [facility] [address] [place] [address] 06/03/2017 16:10:19 06/03/2017 17:02:55 Atrial fibrillation [id number] I48.91 Discussed diagnosis of atrial fibrillati on, including pathophysi ology and prognosis. Discussed importance of controllin g blood pressure, exercising regularly, and minimizing alcohol, caffeine, and decongesta nts. Advised patient to seek medical attention for palpitatio ns, chest pain, dizziness or syncope, shortness of breath, or any other new or concerning symptoms. Patient is on novel oral anticoagul ant, beta-block er, and patient was advised to take medication as prescribed . Fall precaution s reviewed. Stroke and bleeding risks reviewed with patient. History of hypertension 421041372 Z86.79 Patient's blood pressure is {{relative ly well-contr olled# wel l-controll ed not well-contr olled}} on present medical therapy. Patient is {{tolerati ng, without difficulty ,* having side effects with}} the current medication s. I have {{not made* made the following} } changes to the current regimen: {{ Patient is advised to maintain a blood pressure diary.*}} ECHO showed normal LV systolic function and diastolic dysfunctio n.Add Metolazone 2.5 mg PRN History of deep vein thrombosis 553704690 Z86.718 Continue Xarelto. Morbid obesity 428335330 E66.01 Pt was referred for gastric bypass surgery and awaits insurance approval for that reason. his HgbA1C was normal. Obstructiv e sleep apnea syndrome 75216662 G47.33 on CPAP. will refer for pulmonary evaluation Pulmonary embolism 69063 003 I26.99 On Xarelto. Essential hypertension 83183298 I10 [id number] [facility] OFF[facility] [place] [address] 10/28/2017 16:54:47 10/29/2017 13:21:20 Essential hypertension 03309666 I10 Patient's blood pressure is relatively well-contr olled on present medical therapy. Patient is tolerating , without difficulty , the current medication s. I have not made changes to the current regimen: Patient is advised to maintain a blood pressure diary. Will give Rx for BP Cuff ECHO showed normal LV systolic function and diastolic dysfunctio n. Add Metolazone 2.5 mg PRNObtain labs from PCP: FLP, CMP, etc Atrial fibrillation 4943 6004 I48.91 Discussed diagnosis of atrial fibrillati on, including pathophysi ology and prognosis. Discussed importance of controllin g blood pressure, exercising regularly, and minimizing alcohol, caffeine, and decongesta nts. Advised patient to seek medical attention for palpitatio ns, chest pain, dizziness or syncope, shortness of breath, or any other new or concerning symptoms. Patient is on novel oral anticoagul ant, beta-block er, and patient was advised to take medication as prescribed . Fall precaution s reviewed. Stroke and bleeding risks reviewed with patient. History of deep vein thrombosis 130099849 Z86.718 Continue Xarelto. Morbid obesity 114998276 E66.01 Still considerin g Gastric bypass surgery Obstructiv e sleep apnea syndrome 19426358 G47.33 on CPAP. will refer for pulmonary evaluation Pulmonary embolism 41482 003 I26.99 On Xarelto. 07180 [facility] OFFICE [address] [place] [address] 02/03/2018 13:49:22 02/04/2018 11:53:57 Essential hypertension 67659250 I10 Patient's blood pressure is relatively well-contr olled on present medical therapy. Patient is tolerating , without difficulty , the current medication s. I have not made changes to the current regimen: Patient is advised to maintain a blood pressure diary. Will give Rx for BP Cuff ECHO showed normal LV systolic function and diastolic dysfunctio n. Add Metolazone 2.5 mg PRNObtain labs from PCP: FLP, CMP, etc Atrial fibrillation 4943 6004 I48.91 Discussed diagnosis of atrial fibrillati on, including pathophysi ology and prognosis. Discussed importance of controllin g blood pressure, exercising regularly, and minimizing alcohol, caffeine, and decongesta nts. Advised patient to seek medical attention for palpitatio ns, chest pain, dizziness or syncope, shortness of breath, or any other new or concerning symptoms. Patient is on novel oral anticoagul ant, beta-block er, and patient was advised to take medication as prescribed . Fall precaution s reviewed. Stroke and bleeding risks reviewed with patient. History of deep vein thrombosis 683641355 Z86.718 Continue Xarelto. Morbid obesity 256192821 E66.01 Still considerin g Gastric bypass surgery Obstructiv e sleep apnea syndrome 16473066 G47.33 on CPAP. will refer for pulmonary evaluation Pulmonary embolism 12476 003 I26.99 On Xarelto. Dizziness 635304966 R42 probably due to dehydratio n and use of diuretics. Pt had diarrhea.w ill check lab results from outside facility.P t was advised to cut down diuretics especially when is hot outsidewil l check carotidsif symptoms not improve [facility] [address] [place] [address] 03/10/2018 14:24:13 03/17/2018 15:02:56 Essential hypertension 98937989 I10 Patient's blood pressure is relatively well-contr olled on present medical therapy. Patient is tolerating , without difficulty , the current medication s. I have not made changes to the current regimen: Patient is advised to maintain a blood pressure diary. Will give Rx for BP Cuff ECHO showed normal LV systolic function and diastolic dysfunctio n. cont Metolazone 2.5 mg PRNObtain labs from PCP: FLP, CMP, etc Atrial fibrillation 4943 6004 I48.91 Discussed diagnosis of atrial fibrillati on, including pathophysi ology and prognosis. Discussed importance of controllin g blood pressure, exercising regularly, and minimizing alcohol, caffeine, and decongesta nts. Advised patient to seek medical attention for palpitatio ns, chest pain, dizziness or syncope, shortness of breath, or any other new or concerning symptoms. Patient is on novel oral anticoagul ant, beta-block er, and patient was advised to take medication as prescribed . Fall precaution s reviewed. Stroke and bleeding risks reviewed with patient. History of deep vein thrombosis 562445611 Z86.718 Continue Xarelto. Morbid obesity 737993488 E66.01 Still considerin g Gastric bypass surgery Obstructiv e sleep apnea syndrome 78308278 G47.33 on CPAP. will refer for pulmonary evaluation Pulmonary embolism 33575 003 I26.99 On Xarelto. Dizziness 543223298 R42 probably due to dehydratio n and use of diuretics. Pt had diarrhea.w ill check lab results from outside facility.P t was advised to cut down diuretics especially when is hot outsidewil l cut down Carvedilol . Previous Cr was mildly elevated (1.5). will review labs including chemistryc arotid US showed only minimal plaqueif symptoms not improve consider neurology evaluation [address] [facility] OFFICE [address] [place] [address] 05/05/2018 15:03:46 05/05/2018 16:57:36 Essential hypertension 58619881 I10 Patient's blood pressure is relatively well-contr olled on present medical therapy. Patient is tolerating , without difficulty , the current medication s. I have not made changes to the current regimen: Patient is advised to maintain a blood pressure diary. Will give Rx for BP Cuff ECHO showed normal LV systolic function and diastolic dysfunctio n. cut down Cozaar to 50 QHS cont Metolazone 2.5 mg PRNObtain labs from PCP: FLP, CMP, etc Atrial fibrillation 4943 6004 I48.91 Discussed diagnosis of atrial fibrillati on, including pathophysi ology and prognosis. Discussed importance of controllin g blood pressure, exercising regularly, and minimizing alcohol, caffeine, and decongesta nts. Advised patient to seek medical attention for palpitatio ns, chest pain, dizziness or syncope, shortness of breath, or any other new or concerning symptoms. Patient is on novel oral anticoagul ant, beta-block er, and patient was advised to take medication as prescribed . Fall precaution s reviewed. Stroke and bleeding risks reviewed with patient.Du e to deterirati on of kidney function will cut down Xarelto to 15 QD History of deep vein thrombosis 184392501 Z86.718 Continue Xarelto. Morbid obesity 436241600 E66.01 Still considerin g Gastric bypass surgery Obstructiv e sleep apnea syndrome 53551198 G47.33 on CPAP. will refer for pulmonary evaluation Pulmonary embolism 40599 003 I26.99 On Xarelto. Dizziness 946204226 R42 probably due to dehydratio n and use of diuretics. Pt had diarrhea.w ill check lab results from outside facility.P t was advised to cut down diuretics especially when is hot outsidewil l cut down Carvedilol . Previous Cr was mildly elevated (1.5). will review labs including chemistryc arotid US showed only minimal plaqueif symptoms not improve consider neurology evaluation Kidney disease 77830618 N08 recent Cr elevated (1.57). previous 2 yrs ago 1.1.If repeated still elevated consider nephrology evaluation Hypertensive disorder 38 587530 I10 77821 [facility] OFFICE [address] [place] [address] 07/07/2018 14:29:43 07/07/2018 15:41:03 Essential hypertension 65561944 I10 Patient's blood pressure is {{well-con trolled* n ot well-contr olled}} on present medical therapy. Patient is {{tolerati ng, without difficulty ,* having side effects with}} the current medication s. I have {{not made* made the following} } changes to the current regimen. {{ Patient is advised to maintain a blood pressure diary.*}} Cont low Na diet. Atrial fibrillation 5552 9648 I48.91 Discussed diagnosis of atrial fibrillati on, including pathophysi ology and prognosis. Discussed importance of controllin g blood pressure, exercising regularly, and minimizing alcohol, caffeine, and decongesta nts. Advised patient to seek medical attention for palpitatio ns, chest pain, dizziness or syncope, shortness of breath, or any other new or concerning symptoms. Patient is on novel oral anticoagul ant, beta-block er, and patient was advised to take medication as prescribed . Fall precaution s reviewed. Stroke and bleeding risks reviewed with patient.Du e to deterirati on of kidney function will cont Xarelto 15 QD History of deep vein thrombosis 607060533 Z86.718 Continue Xarelto. Morbid obesity 211638917 E66.01 Still considerin g Gastric bypass surgery Obstructiv e sleep apnea syndrome 07514838 G47.33 on CPAP. will refer for pulmonary evaluation Pulmonary embolism 06843 003 I26.99 On Xarelto. Dizziness 053573553 R42 resolved probably due to dehydratio n and use of diuretics and diarrhea. Pt was advised to cut down diuretics especially when is hot outside will cut down Carvedilol . Previous Cr was mildly elevated (1.5). will review labs including chemistryc arotid US showed only minimal plaqueif symptoms not improve consider neurology evaluation Kidney disease 71399089 N08 recent Cr elevated (1.57). previous 2 yrs ago 1.1.If repeated still elevated consider nephrology evaluation Hypertensive disorder 38 119726 I10 resolved 43321 [facility] OFFICE [address] [place] [address] 03/09/2019 16:59:48 03/09/2019 18:10:50 Essential hypertension 03022080 I10 Patient's blood pressure is {{well-con trolled* n ot well-contr olled}} on present medical therapy. Patient is {{tolerati ng, without difficulty ,* having side effects with}} the current medication s. I have {{not made* made the following} } changes to the current regimen. {{ Patient is advised to maintain a blood pressure diary.*}} Cont low Na diet. Atrial fibrillation 6979 4859 I48.91 Discussed diagnosis of atrial fibrillati on, including pathophysi ology and prognosis. Discussed importance of controllin g blood pressure, exercising regularly, and minimizing alcohol, caffeine, and decongesta nts. Advised patient to seek medical attention for palpitatio ns, chest pain, dizziness or syncope, shortness of breath, or any other new or concerning symptoms. Patient is on novel oral anticoagul ant, beta-block er, and patient was advised to take medication as prescribed . Fall precaution s reviewed. Stroke and bleeding risks reviewed with patient.Du e to deterirati on of kidney function will cont Xarelto 15 QD History of deep vein thrombosis 756948395 Z86.718 Continue Xarelto. Morbid obesity 093924103 E66.01 Still considerin g Gastric bypass surgery Obstructiv e sleep apnea syndrome 54284799 G47.33 on CPAP. will refer for pulmonary evaluation Pulmonary embolism 96371 003 I26.99 On Xarelto. Dizziness 958906583 R42 resolved probably due to dehydratio n and use of diuretics and diarrhea. Pt was advised to cut down diuretics especially when is hot outside will cut down Carvedilol . Previous Cr was mildly elevated (1.5). will review labs including chemistryc arotid US showed only minimal plaqueif symptoms not improve consider neurology evaluation Kidney disease 47632668 N08 recent Cr elevated (1.57). previous 2 yrs ago 1.1.If repeated still elevated consider nephrology evaluation Hypertensive disorder 38 181358 I10 resolved 67371 [facility] [address] [place] [address] 09/28/2019 11:41:28 09/28/2019 13:15:17 Essential hypertension 92794348 I10 Patient's blood pressure is {{well-con trolled* n ot well-contr olled}} on present medical therapy. Patient is {{tolerati ng, without difficulty ,* having side effects with}} the current medication s. I have {{not made* made the following} } changes to the current regimen. {{ Patient is advised to maintain a blood pressure diary.*}} Cont low Na diet. Atrial fibrillation 9699 6736 I48.91 Discussed diagnosis of atrial fibrillati on, including pathophysi ology and prognosis. Discussed importance of controllin g blood pressure, exercising regularly, and minimizing alcohol, caffeine, and decongesta nts. Advised patient to seek medical attention for palpitatio ns, chest pain, dizziness or syncope, shortness of breath, or any other new or concerning symptoms. Patient is on novel oral anticoagul ant, beta-block er, and patient was advised to take medication as prescribed . Fall precaution s reviewed. Stroke and bleeding risks reviewed with patient.Du e to kidney dysfunctio n will cont Xarelto 15 QD History of deep vein thrombosis 004179490 Z86.718 Continue Xarelto. Morbid obesity 024990172 E66.01 Still considerin g Gastric bypass surgery Obstructiv e sleep apnea syndrome 40516082 G47.33 on CPAP. will refer for pulmonary evaluation Pulmonary embolism 47209 003 I26.99 On Xarelto. Dizziness 365213338 R42 resolved probably due to dehydratio n and use of diuretics and diarrhea. Pt was advised to cut down diuretics especially when is hot outside will cut down Carvedilol . Previous Cr was mildly elevated (1.5). will review labs including chemistryc arotid US showed only minimal plaqueif symptoms not improve consider neurology evaluation Kidney disease 44941289 N08 recent Cr elevated (1.57). previous 2 yrs ago 1.1.If repeated still elevated consider nephrology evaluation Hypertensive disorder 38 903299 I10 Patient's blood pressure is {{relative ly well-contr olled# wel l-controll ed not well-contr olled}} on present medical therapy. Patient is {{tolerati ng, without difficulty ,* having side effects with}} the current medication s. I have {{not made* made the following} } changes to the current regimen. {{ Patient is advised to maintain a blood pressure diary.*}} Cont low Na diet. 40501 [facility] OFFICE [address] [place] [address] 12/21/2019 10:03:42 12/21/2019 11:14:07 Essential hypertension 83394044 I10 Patient's blood pressure is {{well-con trolled* n ot well-contr olled}} on present medical therapy. Patient is {{tolerati ng, without difficulty ,* having side effects with}} the current medication s. I have {{not made* made the following} } changes to the current regimen. {{ Patient is advised to maintain a blood pressure diary.*}} Cont low Na diet. Atrial fibrillation 4908 7707 I48.91 Discussed diagnosis of atrial fibrillati on, including pathophysi ology and prognosis. Discussed importance of controllin g blood pressure, exercising regularly, and minimizing alcohol, caffeine, and decongesta nts. Advised patient to seek medical attention for palpitatio ns, chest pain, dizziness or syncope, shortness of breath, or any other new or concerning symptoms. Patient is on novel oral anticoagul ant, beta-block er, and patient was advised to take medication as prescribed . Fall precaution s reviewed. Stroke and bleeding risks reviewed with patient.Du e to kidney dysfunctio n will cont Xarelto 15 QD, Holter, ECHO History of deep vein thrombosis 024966971 Z86.718 Continue Xarelto. Morbid obesity 108282070 E66.01 Still considerin g Gastric bypass surgery Obstructiv e sleep apnea syndrome 20642144 G47.33 on CPAP. pulmonary fu Pulmonary embolism 30029 003 I26.99 On Xarelto. Dizziness 273620518 R42 resolved probably due to dehydratio n and use of diuretics and diarrhea. Pt was advised to cut down diuretics especially when is hot outside will cut down Carvedilol . Previous Cr was mildly elevated (1.5). will review labs including chemistryc arotid US showed only minimal plaqueif symptoms not improve consider neurology evaluation Kidney disease 07561173 N08 recent Cr improved (1.22), previous elevated (1.57). previous 2 yrs ago 1.1.If deteriorat es consider nephrology evaluation Hypertensive disorder 38 225748 I10 Patient's blood pressure is {{well-con trolled* n ot well-contr olled}} on present medical therapy. Patient is {{tolerati ng, without difficulty ,* having side effects with}} the current medication s. I have {{not made* made the following} } changes to the current regimen. {{ Patient is advised to maintain a blood pressure diary.*}} Cont low Na diet.ECHO showed normal LV systolic function and diastolic dysfunctio n. 50[address] [facility] OFFICE [address] [place] [address] 06/27/2020 11:11:03 06/27/2020 12:04:28 Essential hypertension 39735391 I10 Patient's blood pressure is {{well-con trolled* n ot well-contr olled}} on present medical therapy. Patient is {{tolerati ng, without difficulty ,* having side effects with}} the current medication s. I have {{not made* made the following} } changes to the current regimen. {{ Patient is advised to maintain a blood pressure diary.*}} Cont low Na diet. Atrial fibrillation 8536 3917 I48.91 Discussed diagnosis of atrial fibrillati on, including pathophysi ology and prognosis. Discussed importance of controllin g blood pressure, exercising regularly, and minimizing alcohol, caffeine, and decongesta nts. Advised patient to seek medical attention for palpitatio ns, chest pain, dizziness or syncope, shortness of breath, or any other new or concerning symptoms. Patient is on novel oral anticoagul ant, beta-block er, and patient was advised to take medication as prescribed . Fall precaution s reviewed. Stroke and bleeding risks reviewed with patient.Du e to kidney dysfunctio n will cont Xarelto 15 QD, Holter, ECHO History of deep vein thrombosis 511575887 Z86.718 Continue Xarelto. Morbid obesity 343262598 E66.01 Still considerin g Gastric bypass surgery Obstructiv e sleep apnea syndrome 47497606 G47.33 on CPAP. pulmonary fu Pulmonary embolism 45326 003 I26.99 On Xarelto. Dizziness 133103842 R42 resolved probably due to dehydratio n and use of diuretics and diarrhea. Pt was advised to cut down diuretics especially when is hot outside will cut down Carvedilol . Previous Cr was mildly elevated (1.5). will review labs including chemistryc arotid US showed only minimal plaqueif symptoms not improve consider neurology evaluation Kidney disease 83997374 N08 recent Cr improved (1.22), previous elevated (1.57). previous 2 yrs ago 1.1.If deteriorat es consider nephrology evaluation Hypertensive disorder 38 943932 I10 Patient's blood pressure is {{well-con trolled* n ot well-contr olled}} on present medical therapy. Patient is {{tolerati ng, without difficulty ,* having side effects with}} the current medication s. I have {{not made* made the following} } changes to the current regimen. {{ Patient is advised to maintain a blood pressure diary.*}} Cont low Na diet.ECHO showed normal LV systolic function and diastolic dysfunctio n. [address] Luann [employer]ill[employer] [address] [place] [address] 01/16/2021 14:01:33 01/16/2021 14:33:57 Essential hypertension 52376722 I10 Patient's blood pressure is {{well-con trolled* s omewhat well-contr olled not well-contr olled}} on present medical therapy. Patient is {{tolerati ng, without difficulty ,* having side effects with}} the current medication s. I have {{not made* made the following} } changes to the current regimen. {{ Patient is advised to maintain a blood pressure diary.*}} Patient was advised to eat a low-sodium diet (2 grams sodium or less daily). Atrial fibrillation 3156 8322 I48.91 Discussed diagnosis of {{atrial fibrillati on* atrial flutter}}, including pathophysi ology and prognosis. Discussed importance of controllin g blood pressure, exercising regularly, and minimizing alcohol, caffeine, and decongesta nts. Advised patient to seek medical attention for palpitatio ns, chest pain, dizziness or syncope, shortness of breath, or any other new or concerning symptoms. Patient's [id number] Sc score and unadjusted yearly stroke risk is {{score of 0 with 0.2% yearly stroke rate. scor e of 1 with 0.6% yearly stroke rate. scor e of 2 with 2.2% yearly stroke rate. scor e of 3 with 3.2% yearly stroke rate. scor e of 4 with 4.8% yearly stroke rate. scor e of 5 with 7.2% yearly stroke rate. scor e of 6 with 9.7% yearly stroke rate. scor e of 7 with 11.2% yearly stroke rate. scor e of 8 with 10.8% yearly stroke rate. scor e of 9 with 12.2% yearly stroke rate.}} {{No need for anticoagul ation at this time. The patient needs anticoagul ation.*}} Patient is to be on {{ warfari n with INR monitored for appropriat e dosing adjustment s, Xarelto , Eliquis, Savaysa, Pradaxa,}} and for rate control they will need {{no other medication , beta-blo cker, beta -megan + antiarrhyt hmic, calc ium channel megan, c alcium channel megan + antiarrhyt hmic, anti arrhythmic ,}}{{ digo benjy,}}and patient was advised to take medication as prescribed . Fall precaution s reviewed. Stroke and bleeding risks reviewed with patient. Due to kidney dysfunctio n will cont Xarelto 15 QD, Holter, ECHO History of deep vein thrombosis 644165871 Z86.718 on Xarelto Morbid obesity 606253020 E66.01 20 lb weight loss recommende d over the next 2 months Obstructiv e sleep apnea syndrome 94393401 G47.33 Compliant with nightly CPAP use Recommend restablish ing pulmonary Pulmonary embolism 42863 003 I26.99 on Xarelto Dizziness 227375460 R42 resolved Probably due to dehydratio n and use of diuretics and diarrhea. Advised to cut down diuretics especially when is hot outside Carotid US showed only minimal plaque Kidney disease 77960517 N08 Recent Cr 2.2 Recommend nephrology referral [address] [facility] [address] [place] [address] 08/14/2021 15:19:17 08/14/2021 15:48:02 Essential hypertension 69900389 I10 Patient's blood pressure is {{well-con trolled* s omewhat well-contr olled not well-contr olled}} on present medical therapy. Patient is {{tolerati ng, without difficulty ,* having side effects with}} the current medication s. I have {{not made* made the following} } changes to the current regimen. {{ Patient is advised to maintain a blood pressure diary.*}} Patient was advised to eat a low-sodium diet (2 grams sodium or less daily). Atrial fibrillation 4659 6006 I48.91 Discussed diagnosis of {{atrial fibrillati on* atrial flutter}}, including pathophysi ology and prognosis. Discussed importance of controllin g blood pressure, exercising regularly, and minimizing alcohol, caffeine, and decongesta nts. Advised patient to seek medical attention for palpitatio ns, chest pain, dizziness or syncope, shortness of breath, or any other new or concerning symptoms. Patient's [id number] Sc score and unadjusted yearly stroke risk is {{score of 0 with 0.2% yearly stroke rate. scor e of 1 with 0.6% yearly stroke rate. scor e of 2 with 2.2% yearly stroke rate. scor e of 3 with 3.2% yearly stroke rate. scor e of 4 with 4.8% yearly stroke rate. scor e of 5 with 7.2% yearly stroke rate. scor e of 6 with 9.7% yearly stroke rate. scor e of 7 with 11.2% yearly stroke rate. scor e of 8 with 10.8% yearly stroke rate. scor e of 9 with 12.2% yearly stroke rate.}} {{No need for anticoagul ation at this time. The patient needs anticoagul ation.*}} Patient is to be on {{ warfari n with INR monitored for appropriat e dosing adjustment s, Xarelto , Eliquis, Savaysa, Pradaxa,}} and for rate control they will need {{no other medication , beta-blo cker, beta -megan + antiarrhyt hmic, calc ium channel megan, c alcium channel megan + antiarrhyt hmic, anti arrhythmic ,}}{{ digo benjy,}}and patient was advised to take medication as prescribed . Fall precaution s reviewed. Stroke and bleeding risks reviewed with patient. Due to kidney dysfunctio n will cont Xarelto 15 QD, ECHO at next appt History of deep vein thrombosis [id number] Z86.718 on Xarelto Morbid obesity [id number] E66.01 20 lb weight loss recommende d over the next 2 months Obstructiv e sleep apnea syndrome [id number] G47.33 Compliant with nightly CPAP use Recommend restablish ing pulmonary Pulmonary embolism 70960 003 I26.99 on Xarelto Dizziness [id number] R42 resolved Probably due to dehydratio n and use of diuretics and diarrhea. Advised to cut down diuretics especially when is hot outside Carotid US showed only minimal plaque Kidney disease [id number] N08 [place] 2[place] [id number] Steven [facility] OFF[facility] [address] [place] [address] 02/12/2022 15:08:25 02/12/2022 15:40:40 Essential hypertension [id number] I10 Patient's blood pressure is {{well-con trolled* s omewhat well-contr olled not well-contr olled}} on present medical therapy. Patient is {{tolerati ng, without difficulty ,* having side effects with}} the current medication s. I have {{not made* made the following} } changes to the current regimen. {{ Patient is advised to maintain a blood pressure diary.*}} Patient was advised to eat a low-sodium diet (2 grams sodium or less daily). Atrial fibrillation 4541 0174 I48.91 Discussed diagnosis of {{atrial fibrillati on* atrial flutter}}, including pathophysi ology and prognosis. Discussed importance of controllin g blood pressure, exercising regularly, and minimizing alcohol, caffeine, and decongesta nts. Advised patient to seek medical attention for palpitatio ns, chest pain, dizziness or syncope, shortness of breath, or any other new or concerning symptoms. Patient's [id number] Sc score and unadjusted yearly stroke risk is {{score of 0 with 0.2% yearly stroke rate. scor e of 1 with 0.6% yearly stroke rate. scor e of 2 with 2.2% yearly stroke rate. scor e of 3 with 3.2% yearly stroke rate. scor e of 4 with 4.8% yearly stroke rate. scor e of 5 with 7.2% yearly stroke rate. scor e of 6 with 9.7% yearly stroke rate. scor e of 7 with 11.2% yearly stroke rate. scor e of 8 with 10.8% yearly stroke rate. scor e of 9 with 12.2% yearly stroke rate.}} {{No need for anticoagul ation at this time. The patient needs anticoagul ation.*}} Patient is to be on {{ warfari n with INR monitored for appropriat e dosing adjustment s, Xarelto , Eliquis, Savaysa, Pradaxa,}} and for rate control they will need {{no other medication , beta-blo cker, beta -megan + antiarrhyt hmic, calc ium channel megan, c alcium channel megan + antiarrhyt hmic, anti arrhythmic ,}}{{ digo benjy,}}and patient was advised to take medication as prescribed . Fall precaution s reviewed. Stroke and bleeding risks reviewed with patient. Due to kidney dysfunctio n will cont Xarelto 15 QD, ECHO at next appt History of deep vein thrombosis [id number] Z86.718 on Xarelto Morbid obesity [id number] E66.01 20 lb weight loss recommende d over the next 2 months Obstructiv e sleep apnea syndrome 45144479 G47.33 Compliant with nightly CPAP use Recommend restablish ing pulmonary Pulmonary embolism 88598 003 I26.99 on Xarelto Dizziness [id number] R42 resolved Probably due to dehydratio n and use of diuretics and diarrhea. Advised to cut down diuretics especially when is hot outside Carotid US showed only minimal plaque Kidney disease 56062573 N08 [place] Cr 1.[place] [id number] Juan Daniel Kelsey MD [place] [facility] [address] [place] [address] 08/13/2022 15:40:45 08/13/2022 16:44:17 Essential hypertension 81733128 I10 Now well controlled Atrial fibrillation 4943 6004 I48.91 Discussed diagnosis of {{atrial fibrillati on* atrial flutter}}, including pathophysi ology and prognosis. Discussed importance of controllin g blood pressure, exercising regularly, and minimizing alcohol, caffeine, and decongesta nts. Advised patient to seek medical attention for palpitatio ns, chest pain, dizziness or syncope, shortness of breath, or any other new or concerning symptoms. Patient's [id number] Sc score and unadjusted yearly stroke risk is {{score of 0 with 0.2% yearly stroke rate. scor e of 1 with 0.6% yearly stroke rate. scor e of 2 with 2.2% yearly stroke rate. scor e of 3 with 3.2% yearly stroke rate. scor e of 4 with 4.8% yearly stroke rate. scor e of 5 with 7.2% yearly stroke rate. scor e of 6 with 9.7% yearly stroke rate. scor e of 7 with 11.2% yearly stroke rate. scor e of 8 with 10.8% yearly stroke rate. scor e of 9 with 12.2% yearly stroke rate.}} {{No need for anticoagul ation at this time. The patient needs anticoagul ation.*}} Patient is to be on {{ warfari n with INR monitored for appropriat e dosing adjustment s, Xarelto , Eliquis, Savaysa, Pradaxa,}} and for rate control they will need {{no other medication , beta-blo cker, beta -megan + antiarrhyt hmic, calc ium channel megan, c alcium channel megan + antiarrhyt hmic, anti arrhythmic ,}}{{ digo benjy,}}and patient was advised to take medication as prescribed . Fall precaution s reviewed. Stroke and bleeding risks reviewed with patient. Due to kidney dysfunctio n will cont Xarelto 15 QD, ECHO at next appt History of deep vein thrombosis [id number] Z86.718 on Xarelto Morbid obesity 680642035 E66.01 20 lb weight loss recommende d over the next 2 months Obstructiv e sleep apnea syndrome 64069406 G47.33 Compliant with nightly CPAP use Recommend re establishi ng pulmonary Pulmonary embolism 52217 003 I26.99 on Xarelto Dizziness [id number] R42 resolved Probably due to dehydratio n and use of diuretics and diarrhea. Advised to cut down diuretics especially when is hot outside Carotid US showed only minimal plaque Kidney disease 17642487 N08 Recent Cr 1.21 nephrology fu Chronic sy stolic heart failure [id number] I50.22 resume Lasix at 40 qd Health Concerns Section Related Observation LastModified by Organization Detai ls LastModified Time None Recorded Concern Status LastModified by Organization Details LastModified Time None Recorded Advance Directives Directive Y: Payers Encounter Date Sequence Insurance Name Policy Number Policy Parikh Covered Member ID Parikh Member ID Guarantor Name 06/27/2020 1 [place] Omar Baldwin [id number] 01/16/2021 1 [facility] (MEDICARE REPLACEMENT/A DVANTAGE - HMO) [id number] Omar Baldwin [id number] 08/14/2021 1 [facility] (MEDICARE REPLACEMENT/A DVANTAGE - HMO) [id number] Omar Baldiwn [id number] 02/12/2022 1 [facility] (MEDICARE REPLACEMENT/A DVANTAGE - HMO) [id number] Omar Baldwin [id number] 08/13/2022 1 [facility] (MEDICARE REPLACEMENT/A DVANTAGE - HMO) [id number] Omar Baldwin [id number] Notes Date Note Type Note Provider Name and Address Organization Details Recorded Time 06/27/2020 text/html 06/27/20 CC: Atrial fibrillation fu HPI; 59 year old white male with history of HTN, HL, DVT, PE, hypothyroidism, obesity, YEN on CPAP, atrial fibrillation on Xarelto presents for scheduled f/u. Due to the CDC viera virus mandated precautions for at risk patients, this visit is being conducted virtually via DOXY face time mode. Patient has agreed for the physician to perform the visit in this manner. Had diarrhea , low BP recently but getting better Pt had last virtual visit about 6 months ago. .Since then he feels fine. denie any symptoms He has not left his house for the last 6 months because of pandemic. Talked to his PC 6 months ago. Previously he gained about 30 lbs since he was out of his thyroid supplementation for a while. this is managed by his PC. Meds restarted and lost weight. No LE edema. States that his BP is usually well controlled. 110-125/70-78. HR 70-80 bpm today: 134/81 hr 72 In the past He has been monitoring BP at home and feels lightheaded, straining head pain, vision change, fatigue, feeling of off balance, but denies any syncope, BP ranging 92-77/52-48. Overall, BP has been running 130-116/83-72, HR 82-71. He takes his Medications between 7 am and 9 am and notices the lightheadedness 12 pm and 3 pm. Pt never was told to have kidney problems. 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 He has gained 6 lbs since last visit. His leg swelling is under control and is only on Lasix 40 mg BID, he has not needed to take Metolazone 2.5 mg at all recently. After last visit, he was started on cholesterol medication which he has been taking at night without any issues. He has been having trouble with getting a deep breath. Denies actual shortness of breath, it just feels like he cannot get a breath. He is not sure if it is from the humidity outside. No chest pain. No shortness of breath at rest. Reported dyspnea on exertion, stable. No palpitations. No orthopnea. No PND's. Reported lightheadedness. No dizziness. No syncope. Reported leg swelling, improve. No nausea and vomiting. No major bleeding events. No side effects from medications. ECHO 12/07/16 : LV chamber size is normal. There is moderate concentric LV hypertrophy. There isn normal global systolic function and contractility. THe estimated left ventricle ejection fraction is 55-60%. LV relaxations impaired. Left atrium chamber is moderately dilated. Mild elevation of estimated RV systolic pressure. Atrial fibrillation. Had Carotid US done in 02/09/18 showed Antegrade flow noted in both vertebral arteries. Very mild bilateral internal carotid artery stenosis with less than 15% diameter stenosis. Results from this visit, or from the past:11/08/19: Na 143 , K 4.3 ,CL 100, CO2 34, GLU 105 , BUN 21, CR 1.22011/08/2019 : Gluocose 105,BUN 21,Creati 1.22,Na 143,K 4.3,Cl 100,CA 9.0 Mag 1.9 TSH 2.44 LIPID PANEL : Cholesterol 92,Triglycerides 57,HDL 37,LDL 42TSH + free T4, serum 01-27-2019 01/27/19 TSH/ T4: 1.2 CMP, serum or plasma 01-27-2019 01/27/19 CMP: NA 142, K 4.2, CL 104, CO2 29, GLU 116, BUN 21, CR 1.23, AST 26, ALT 23 lipid panel, blood 01-27-2019 01/27/19 LIPID: TC 106, TR 55, HDL 41, LDL 51 CBC w/ diff 01-27-2019 01/27/19 CBC: WBC 6.7, HGB 13.6, HCT 39.6, PLT 175 03/18/18: NA 140, K 4.3, CL 103 ,CO2 27 ,GLU 120 , BUN 33 ,CR 1.57, TC 101 ,TG 65 ,HDL 43 ,LDL 44 , 11/08/17 TSH W/REFLEX TO FT-4: 4.41 11/08/2017: SOD: 137, K: 4.4, CL: 97, CO2: 32, GL: 3.4, BUN: 32, CR: 1.54, AST:30, ALT: 23 08-14-2016 ALT:25, AST:22, CO2:31, CL:101, CR:1.13, GLU:113, K:4.7, NA:137, BUN:20 07/24/16 : GLU:104, BUN:24, CR:1.16, NA:136, K:4.8, CL:100, CO2:32, AST:80, ALT:18 07/24/16 : TC:169, HDL:36, TR:63, LDL:120 EKG: (09/28/19): Atrial fibrillation (69 bpm), IRBBB,. NSST changes.EKG 03/09/19 Ventricular premature beats. Right bundle branch block. Low voltage, chest leads. Possible Lateral myocardial infarctionEKG: (07/07/18): Atrial fibrillation. NSST changes.EKG: (03/10/18): Atrial fibrillation. NSST changes.EKG: (02/03/18): Atrial fibrillation. NSST changes. EKG: (10/28/17): Atrial fibrillation. NSST changes. EKG: (06/03/17) Atrial fibrillation. NSST changes. EK11-05-2016 Atrial fibrillation. NSST changes. EKG (07/20/16): AFIB, NSST changes EK12-03-2015 Atrial flutter-fibrillation. Nonspecific T-abnormality. Abnormal US, Carotid Artery 02/09/18 : Antegrade flow noted in both vertebral arteries. Very mild bilateral internal carotid artery stenosis with less than 15% diameter stenosis. ECHO 12/07/16 : LV chamber size is normal. There is moderate concentric LV hypertrophy. There isn normal global systolic function and contractility. THe estimated left ventricle ejection fraction is 55-60%. LV relaxations impaired. Left atrium chamber is moderately dilated. Mild elevation of estimated RV systolic pressure. Atrial fibrillation. Steven choudhary [place] - [facility] 06/27/2020 12:04:25 01/16/2021 text/html 01/16/2021 Due to the CDC viera virus mandated precautions for at risk patients, this visit is being conducted virtually via smart phone face time mode. Patient has agreed for the physician to perform the visit in this manner. CC: Atrial fibrillation HPI: 60-year-old white male with history of HTN, HL, DVT, PE, hypothyroidism, obesity, YEN on CPAP, atrial fibrillation on Xarelto presents for scheduled f/u. He was last seen via virtual visit about 6 months ago on 06/27/2020. Since then he reports feeling well with no new complaints. He occasionally has low BP which he reports he holds his medicines for but is mostly well controlled overall. Reports he had his Covid-19 vaccines and is comfortable with following up in the office. His creatinine continues to worsen with most recent being 2.2. He states he has not been evaluated by nephrology. He plans to discuss with this with his PCP. He is using 2 L NC at home PRN which is managed by his PCP. He needs a new underground utility locator. Continues to wear CPAP at night. He is traveling to [facility] in February 2021 for his daughter's wedding and is concerned about his breathing with elevation. No chest pain. No shortness of breath at rest. Reports stable dyspnea on exertion. No orthopnea. No PND. No dizziness. No palpitation. No syncope or near syncope. No leg swelling. No nausea and vomiting. No side effects from medications. Results from this visit, or from the past: ECHO 12/07/16 : LV chamber size is normal. There is moderate concentric LV hypertrophy. There isn normal global systolic function and contractility. THe estimated left ventricle ejection fraction is 55-60%. LV relaxations impaired. Left atrium chamber is moderately dilated. Mild elevation of estimated RV systolic pressure. Atrial fibrillation. Had Carotid US done in 02/09/18 showed Antegrade flow noted in both vertebral arteries. Very mild bilateral internal carotid artery stenosis with less than 15% diameter stenosis. CMP, serum or plasma 10-30-2020 10/30/20 CMP NA 138, K 4.2, CHL 92, C02 36, BUN 39, CR 2.2, GL 86, CA 9.6, AST 19, ALT 12, ALP : Na 143 , K 4.3 ,CL 100, CO2 34, GLU 105 , BUN 21, CR 1.22011/08/2019 : Gluocose 105,BUN 21,Creati 1.22,Na 143,K 4.3,Cl 100,CA 9.0 Mag 1.9 TSH 2.44 LIPID PANEL : Cholesterol 92,Triglycerides 57,HDL 37,LDL 42TSH + free T4, serum 01-27-2019 01/27/19 TSH/ T4: 1.2 CMP, serum or plasma 01-27-2019 01/27/19 CMP: NA 142, K 4.2, CL 104, CO2 29, GLU 116, BUN 21, CR 1.23, AST 26, ALT 23 lipid panel, blood 01-27-2019 01/27/19 LIPID: TC 106, TR 55, HDL 41, LDL 51 CBC w/ diff 01-27-2019 01/27/19 CBC: WBC 6.7, HGB 13.6, HCT 39.6, PLT 175 03/18/18: NA 140, K 4.3, CL 103 ,CO2 27 ,GLU 120 , BUN 33 ,CR 1.57, TC 101 ,TG 65 ,HDL 43 ,LDL 44 , 11/08/17 TSH W/REFLEX TO FT-4: 4.41 11/08/2017: SOD: 137, K: 4.4, CL: 97, CO2: 32, GL: 3.4, BUN: 32, CR: 1.54, AST:30, ALT: 23 08-14-2016 ALT:25, AST:22, CO2:31, CL:101, CR:1.13, GLU:113, K:4.7, NA:137, BUN:20 07/24/16 : GLU:104, BUN:24, CR:1.16, NA:136, K:4.8, CL:100, CO2:32, AST:80, ALT:18 07/24/16 : TC:169, HDL:36, TR:63, LDL:120 EKG: (09/28/19): Atrial fibrillation (69 bpm), IRBBB,. NSST changes.EKG 03/09/19 Ventricular premature beats. Right bundle branch block. Low voltage, chest leads. Possible Lateral myocardial infarctionEKG: (07/07/18): Atrial fibrillation. NSST changes.EKG: (03/10/18): Atrial fibrillation. NSST changes.EKG: (02/03/18): Atrial fibrillation. NSST changes. EKG: (10/28/17): Atrial fibrillation. NSST changes. EKG: (06/03/17) Atrial fibrillation. NSST changes. EK11-05-2016 Atrial fibrillation. NSST changes. EKG (07/20/16): AFIB, NSST changes EK12-03-2015 Atrial flutter-fibrillation. Nonspecific T-abnormality. Abnormal US, Carotid Artery 02/09/18 : Antegrade flow noted in both vertebral arteries. Very mild bilateral internal carotid artery stenosis with less than 15% diameter stenosis. ECHO 12/07/16 : LV chamber size is normal. There is moderate concentric LV hypertrophy. There isn normal global systolic function and contractility. THe estimated left ventricle ejection fraction is 55-60%. LV relaxations impaired. Left atrium chamber is moderately dilated. Mild elevation of estimated RV systolic pressure. Atrial fibrillation. Luann [facility]- [place], [place] - [facility] 01/16/2021 14:33:53 08/14/2021 text/html 08/14/21[facility] 60[facility]year-[facility] white male with history of HTN, HL, DVT, PE, hypothyroidism, obesity, YEN on CPAP, atrial fibrillation on Xarelto is here for follow up. He was last seen in the clinic on 01/16/21 , since then he feels fine States taht was seen recently by his nephrologistHe denies ER visits and hospitalizations since he was last seen.Today reports:Denies chest pain.Denies shortness of breath at rest. Has mild dyspnea on exertion.No orthopnea. No PNDs.Denies heart palpitations.Denies dizziness. Denies syncope or near syncope.No ankle or leg edema.No major bleeding events.No reported side effects from medications. Taking medications as prescribed with no missed doses.Denies snoring, daytime somnolence and AM headache.*Last LDL was 42 done on 11/07/19 .Pt takes atorvastatin 80 mg. Previously:He occasionally has low BP which he reports he holds his medicines for but is mostly well controlled overall. Reports he had his Covid-19 vaccines and is comfortable with following up in the office. His creatinine continues to worsen with most recent being 2.2. He states he has not been evaluated by nephrology. He plans to discuss with this with his PCP. He is using 2 L NC at home PRN which is managed by his PCP. He needs a new underground utility locator. Continues to wear CPAP at night. He is traveling to [facility] in February 2021 for his daughter's wedding and is concerned about his breathing with elevation.Results from this visit, or from the past: ECHO 12/07/16 : LV chamber size is normal. There is moderate concentric LV hypertrophy. There isn normal global systolic function and contractility. THe estimated left ventricle ejection fraction is 55-60%. LV relaxations impaired. Left atrium chamber is moderately dilated. Mild elevation of estimated RV systolic pressure. Atrial fibrillation. Had Carotid US done in 02/09/18 showed Antegrade flow noted in both vertebral arteries. Very mild bilateral internal carotid artery stenosis with less than 15% diameter stenosis. CMP, serum or plasma 10-30-2020 10/30/20 CMP NA 138, K 4.2, CHL 92, C02 36, BUN 39, CR 2.2, GL 86, CA 9.6, AST 19, ALT 12, ALP : Na 143 , K 4.3 ,CL 100, CO2 34, GLU 105 , BUN 21, CR 1.22011/08/2019 : Gluocose 105,BUN 21,Creati 1.22,Na 143,K 4.3,Cl 100,CA 9.0 Mag 1.9 TSH 2.44 LIPID PANEL : Cholesterol 92,Triglycerides 57,HDL 37,LDL 42TSH + free T4, serum 01-27-2019 01/27/19 TSH/ T4: 1.2 CMP, serum or plasma 01-27-2019 01/27/19 CMP: NA 142, K 4.2, CL 104, CO2 29, GLU 116, BUN 21, CR 1.23, AST 26, ALT 23 lipid panel, blood 01-27-2019 01/27/19 LIPID: TC 106, TR 55, HDL 41, LDL 51 CBC w/ diff 01-27-2019 01/27/19 CBC: WBC 6.7, HGB 13.6, HCT 39.6, PLT 175 03/18/18: NA 140, K 4.3, CL 103 ,CO2 27 ,GLU 120 , BUN 33 ,CR 1.57, TC 101 ,TG 65 ,HDL 43 ,LDL 44 , 11/08/17 TSH W/REFLEX TO FT-4: 4.41 11/08/2017: SOD: 137, K: 4.4, CL: 97, CO2: 32, GL: 3.4, BUN: 32, CR: 1.54, AST:30, ALT: 23 08-14-2016 ALT:25, AST:22, CO2:31, CL:101, CR:1.13, GLU:113, K:4.7, NA:137, BUN:20 07/24/16 : GLU:104, BUN:24, CR:1.16, NA:136, K:4.8, CL:100, CO2:32, AST:80, ALT:18 07/24/16 : TC:169, HDL:36, TR:63, LDL:120 EKG: (08/14/21): Atrial fibrillation (77 bpm), IRBBB,. NSST changes.EKG: (09/28/19): Atrial fibrillation (69 bpm), IRBBB,. NSST changes.EKG 03/09/19 Ventricular premature beats. Right bundle branch block. Low voltage, chest leads. Possible Lateral myocardial infarctionEKG: (07/07/18): Atrial fibrillation. NSST changes.EKG: (03/10/18): Atrial fibrillation. NSST changes.EKG: (02/03/18): Atrial fibrillation. NSST changes. EKG: (10/28/17): Atrial fibrillation. NSST changes. EKG: (06/03/17) Atrial fibrillation. NSST changes. EK11-05-2016 Atrial fibrillation. NSST changes. EKG (07/20/16): AFIB, NSST changes EK12-03-2015 Atrial flutter-fibrillation. Nonspecific T-abnormality. Abnormal US, Carotid Artery 02/09/18 : Antegrade flow noted in both vertebral arteries. Very mild bilateral internal carotid artery stenosis with less than 15% diameter stenosis. ECHO 12/07/16 : LV chamber size is normal. There is moderate concentric LV hypertrophy. There isn normal global systolic function and contractility. THe estimated left ventricle ejection fraction is 55-60%. LV relaxations impaired. Left atrium chamber is moderately dilated. Mild elevation of estimated RV systolic pressure. Atrial fibrillation. Steven Perez [place], [place] - [facility] 08/14/2021 16:34:39 02/12/2022 text/html 02/12/22CC : Car diac follow upHPI: [id number]-pem white male with history of HTN, HL, DVT, PE, hypothyroidism, obesity, YEN on CPAP, atrial fibrillation on Xarelto is here for 6 month follow up. He was last seen in the clinic on 08/14/21, since then he feels fine.occasionally feels some palpitationsFeels much better since started to use CPAP few months agoHe denies ER visits and hospitalizations since he was last seen. Today reports:Denies chest pain.Denies shortness of breath at rest. Has mild dyspnea on exertion.No orthopnea. No PNDs.Denies heart palpitations.Denies dizziness. Denies syncope or near syncope.No ankle or leg edema.No major bleeding events.No reported side effects from medications. Taking medications as prescribed with no missed doses.Denies snoring, daytime somnolence and AM headache.*Last LDL was 42 done on 03/10/20 .Pt takes atorvastatin 80 mg. Previously :He occasionally has low BP which he reports he holds his medicines for but is mostly well controlled overall. Reports he had his Covid-19 vaccines and is comfortable with following up in the office. His creatinine continues to worsen with most recent being 2.2. He states he has not been evaluated by nephrology. He plans to discuss with this with his PCP. He is using 2 L NC at home PRN which is managed by his PCP. He needs a new underground utility locator. Continues to wear CPAP at night. He is traveling to [facility] in February 2021 for his daughter's wedding and is concerned about his breathing with elevation.Results from this visit, or from the past:10/09/2021 : Glucose 106,BUN 35,Creati 1.21,Na 139,K 4.4,Cl 103,CA 9.1 TSH 3.78LIPID PANEL : Cholesterol 101, Triglycerides 45, HDL 35, LDL 53ECHO 12/07/16 : LV chamber size is normal. There is moderate concentric LV hypertrophy. There isn normal global systolic function and contractility. THe estimated left ventricle ejection fraction is 55-60%. LV relaxations impaired. Left atrium chamber is moderately dilated. Mild elevation of estimated RV systolic pressure. Atrial fibrillation. Had Carotid US done in 02/09/18 showed Antegrade flow noted in both vertebral arteries. Very mild bilateral internal carotid artery stenosis with less than 15% diameter stenosis. CMP, serum or plasma 10-30-2020 10/30/20 CMP NA 138, K 4.2, CHL 92, C02 36, BUN 39, CR 2.2, GL 86, CA 9.6, AST 19, ALT 12, ALP : Na 143 , K 4.3 ,CL 100, CO2 34, GLU 105 , BUN 21, CR 1.22011/08/2019 : Gluocose 105,BUN 21,Creati 1.22,Na 143,K 4.3,Cl 100,CA 9.0 Mag 1.9 TSH 2.44 LIPID PANEL : Cholesterol 92,Triglycerides 57,HDL 37,LDL 42TSH + free T4, serum 01-27-2019 01/27/19 TSH/ T4: 1.2 CMP, serum or plasma 01-27-2019 01/27/19 CMP: NA 142, K 4.2, CL 104, CO2 29, GLU 116, BUN 21, CR 1.23, AST 26, ALT 23 lipid panel, blood 01-27-2019 01/27/19 LIPID: TC 106, TR 55, HDL 41, LDL 51 CBC w/ diff 01-27-2019 01/27/19 CBC: WBC 6.7, HGB 13.6, HCT 39.6, PLT 175 03/18/18: NA 140, K 4.3, CL 103 ,CO2 27 ,GLU 120 , BUN 33 ,CR 1.57, TC 101 ,TG 65 ,HDL 43 ,LDL 44 , 11/08/17 TSH W/REFLEX TO FT-4: 4.41 11/08/2017: SOD: 137, K: 4.4, CL: 97, CO2: 32, GL: 3.4, BUN: 32, CR: 1.54, AST:30, ALT: 23 08-14-2016 ALT:25, AST:22, CO2:31, CL:101, CR:1.13, GLU:113, K:4.7, NA:137, BUN:20 07/24/16 : GLU:104, BUN:24, CR:1.16, NA:136, K:4.8, CL:100, CO2:32, AST:80, ALT:18 07/24/16 : TC:169, HDL:36, TR:63, LDL:120 EKG: (02/12/22): Atrial fibrillation (85 bpm), IRBBB,. NSST changes.EKG: (08/14/21): Atrial fibrillation (77 bpm), IRBBB,. NSST changes.EKG: (09/28/19): Atrial fibrillation (69 bpm), IRBBB,. NSST changes.EKG 03/09/19 Ventricular premature beats. Right bundle branch block. Low voltage, chest leads. Possible Lateral myocardial infarctionEKG: (07/07/18): Atrial fibrillation. NSST changes.EKG: (03/10/18): Atrial fibrillation. NSST changes.EKG: (02/03/18): Atrial fibrillation. NSST changes. EKG: (10/28/17): Atrial fibrillation. NSST changes. EKG: (06/03/17) Atrial fibrillation. NSST changes. [id number] Atrial fibrillation. NSST changes. EKG (07/20/16): AFIB, NSST changes EK12-03-2015 Atrial flutter-fibrillation. Nonspecific T-abnormality. Abnormal US, Carotid Artery 02/09/18 : Antegrade flow noted in both vertebral arteries. Very mild bilateral internal carotid artery stenosis with less than 15% diameter stenosis. ECHO 12/07/16 : LV chamber size is normal. There is moderate concentric LV hypertrophy. There isn normal global systolic function and contractility. THe estimated left ventricle ejection fraction is 55-60%. LV relaxations impaired. Left atrium chamber is moderately dilated. Mild elevation of estimated RV systolic pressure. Atrial fibrillation. Steven Perez [facility] 02/12/2022 16:02:36 08/13/2022 text/html 08/13/22CC : Car dia follow upHPI: [id number] white male with history of HTN, HL, DVT, PE, hypothyroidism, obesity, YEN on CPAP, atrial fibrillation on Xarelto is here for 6 month follow up. He was last seen in the clinic on 02/12/22, since then he was in the hopital with PneumoniaHe denies ER visits and hospitalizations since he was last seen. Today reports:Denies chest pain.Denies shortness of breath at rest. Has mild dyspnea on exertion.No orthopnea. No PNDs.Denies heart palpitations.Denies dizziness. Denies syncope or near syncope.No ankle or leg edema.No major bleeding events.No reported side effects from medications. Taking medications as prescribed with no missed doses.Denies snoring, daytime somnolence and AM headache.*Last LDL was 53 done on 10/08/21.Pt takes atorvastatin 80 mg. Previously:occasionall y some palpitationsFeels much better since started to use CPAP few months ago He occasionally has low BP which he reports he holds his medicines for but is mostly well controlled overall. Reports he had his Covid-19 vaccines and is comfortable with following up in the office. His creatinine continues to worsen with most recent being 2.2. He states he has not been evaluated by nephrology. He plans to discuss with this with his PCP. He is using 2 L NC at home PRN which is managed by his PCP. He needs a new underground utility locator. Continues to wear CPAP at night. He is traveling to [facility] in February 2021 for his daughter's wedding and is concerned about his breathing with elevation.Results from this visit, or from the past:10/09/2021 : Glucose 106,BUN 35,Creati 1.21,Na 139,K 4.4,Cl 103,CA 9.1 TSH 3.78LIPID PANEL : Cholesterol 101, Triglycerides 45, HDL 35, LDL 53ECHO 12/07/16 : LV chamber size is normal. There is moderate concentric LV hypertrophy. There isn normal global systolic function and contractility. THe estimated left ventricle ejection fraction is 55-60%. LV relaxations impaired. Left atrium chamber is moderately dilated. Mild elevation of estimated RV systolic pressure. Atrial fibrillation. Had Carotid US done in 02/09/18 showed Antegrade flow noted in both vertebral arteries. Very mild bilateral internal carotid artery stenosis with less than 15% diameter stenosis. CMP, serum or plasma 10-30-2020 10/30/20 CMP NA 138, K 4.2, CHL 92, C02 36, BUN 39, CR 2.2, GL 86, CA 9.6, AST 19, ALT 12, ALP : Na 143 , K 4.3 ,CL 100, CO2 34, GLU 105 , BUN 21, CR 1.22011/08/2019 : Gluocose 105,BUN 21,Creati 1.22,Na 143,K 4.3,Cl 100,CA 9.0 Mag 1.9 TSH 2.44 LIPID PANEL : Cholesterol 92,Triglycerides 57,HDL 37,LDL 42TSH + free T4, serum 01-27-2019 01/27/19 TSH/ T4: 1.2 CMP, serum or plasma 01-27-2019 01/27/19 CMP: NA 142, K 4.2, CL 104, CO2 29, GLU 116, BUN 21, CR 1.23, AST 26, ALT 23 lipid panel, blood 01-27-2019 01/27/19 LIPID: TC 106, TR 55, HDL 41, LDL 51 CBC w/ diff 01-27-2019 01/27/19 CBC: WBC 6.7, HGB 13.6, HCT 39.6, PLT 175 03/18/18: NA 140, K 4.3, CL 103 ,CO2 27 ,GLU 120 , BUN 33 ,CR 1.57, TC 101 ,TG 65 ,HDL 43 ,LDL 44 , 11/08/17 TSH W/REFLEX TO FT-4: 4.41 11/08/2017: SOD: 137, K: 4.4, CL: 97, CO2: 32, GL: 3.4, BUN: 32, CR: 1.54, AST:30, ALT: 23 08-14-2016 ALT:25, AST:22, CO2:31, CL:101, CR:1.13, GLU:113, K:4.7, NA:137, BUN:20 07/24/16 : GLU:104, BUN:24, CR:1.16, NA:136, K:4.8, CL:100, CO2:32, AST:80, ALT:18 07/24/16 : TC:169, HDL:36, TR:63, LDL:120 EKG: (02/12/22): Atrial fibrillation (85 bpm), IRBBB,. NSST changes.EKG: (08/14/21): Atrial fibrillation (77 bpm), IRBBB,. NSST changes.EKG: (09/28/19): Atrial fibrillation (69 bpm), IRBBB,. NSST changes.EKG 03/09/19 Ventricular premature beats. Right bundle branch block. Low voltage, chest leads. Possible Lateral myocardial infarctionEKG: (07/07/18): Atrial fibrillation. NSST changes.EKG: (03/10/18): Atrial fibrillation. NSST changes.EKG: (02/03/18): Atrial fibrillation. NSST changes. EKG: (10/28/17): Atrial fibrillation. NSST changes. EKG: (06/03/17) Atrial fibrillation. NSST changes. EK11-05-2016 Atrial fibrillation. NSST changes. EKG (07/20/16): AFIB, NSST changes EK12-03-2015 Atrial flutter-fibrillation. Nonspecific T-abnormality. Abnormal US, Carotid Artery 02/09/18 : Antegrade flow noted in both vertebral arteries. Very mild bilateral internal carotid artery stenosis with less than 15% diameter stenosis. ECHO 12/07/16 : LV chamber size is normal. There is moderate concentric LV hypertrophy. There isn normal global systolic function and contractility. THe estimated left ventricle ejection fraction is 55-60%. LV relaxations impaired. Left atrium chamber is moderately dilated. Mild elevation of estimated RV systolic pressure. Atrial fibrillation. Juan Daniel Kelsey MD [address] [place], [address], [facility] 08/13/2022 16:40:16
--- OUTSIDE RECORDS SUMMARY | 2024-09-06 08:48 | XMS_ITS | Continuity of Care Document ---
Author Organization [facility] Address [address] [place] [address] [place] [address] Phone Care Team Providers Care Slope Hoist Operator Name Role Phone Sarkis Fu MD Unavailable Unavailable Allergies, Adverse Reactions, Alerts Substance Reaction Status Criticality polymyxin B Active No Information NEOMYCIN SULFATE Active No Informat ion BACITRACIN ZINC Active No Informati on bacitracin Active No Information Medications Medication Instructions Dosage Effective Dates (start - stop) Status Comments Lasix 40 mg tablet take 1 tablet by ora l route 2 times every day 40 MG - Active Synthroid 25 mcg tablet take 1 tablet (2 5MCG) by oral route every day - Active Xarelto 20 mg tablet take 1 tablet (20MG ) by oral route every day with the evening meal - Active Lipitor 80 mg tablet take 1 tablet by or al route every day 80 MG - Active spironolactone 25 mg tablet take 0.5 tablet by oral route every day 12.5 MG - Active Coreg 12.5 mg tablet take 1 tablet by or al route 2 times every day with food 12.5 MG - Active losartan 100 mg tablet take 1 tablet by oral route every day 100 MG - Active Procedures Procedure Date OFFICE/OUTPATIENT VISIT, EST PPPS, initial visit OFFICE/OUTPATIENT VISIT, EST OFFICE/OUTPATIENT VISIT, EST Initial preventive exam OFFICE/OUTPATIENT VISIT, EST OFFICE/OUTPATIENT VISIT, EST OFFICE/OUTPATIENT VISIT, EST OFFICE/OUTPATIENT VISIT, EST OFFICE/OUTPATIENT VISIT, EST OFFICE/OUTPATIENT VISIT, EST OFFICE/OUTPATIENT VISIT, EST PREV VISIT, EST, AGE 40-64 OFFICE/OUTPATIENT VISIT, EST OFFICE/OUTPATIENT VISIT, EST OFFICE/OUTPATIENT VISIT, EST OFFICE/OUTPATIENT VISIT, EST OFFICE/OUTPATIENT VISIT, EST PREV VISIT, NEW, AGE 40-64 Advance Directives Directive Yes / No Effective Date File Name No Information Encounters Encounter Description Practice Location Reason(s) For Visit Diagnoses Date Provider Providers Copied on Encounter [facility], [address], [place], [place], [facility], tel:[phone] [facility] No Information 1 Tank Bhagat [address], [place], [facility]. tel:[phone] [facility], [address], [place], [facility], tel:[phone] [facility] No Information 0 Tank Bhagat [address], [address], [place], [facility]. tel:[phone] [facility], [address], [place], [facility], tel:[phone] [facility] No Information 0 Tank Bhagat [address], [place], [facility]. tel:[phone] OFFICE/OUTPA TIENT VISIT, EST [facility], [address], [place], [facility], tel:[phone] [facility] ventral hernia1 (chief complaint)gl ucose1 (chief complaint)th yroid (chief complaint) Ventral herniaHypothyroid ismHyperglycemia 0 Tank Almeida [address], [place], [facility]. tel:[phone] Referring Provider: Sarkis Fu, [address], [place], [address]. tel:[phone] OFFICE/OUTPA TIENT VISIT, [facility], [address], [place], [address], tel:[phone] [facility] Physical (chief complaint) Encounter for general adult medical exam w abnormal findingsHypothyro idismAtrial fibrillationVentr al herniaSleep apnea 0 Tank Dockery. [address], [address], [place], [address]. tel:[phone] Referring Provider: Sarkis Fu, [address], [place], [address]. tel:[phone] [facility], [address], [place], [address], [place] tel:[phone] [facility] No Information 9 Tank Dockery. [address], [address], [place], [address]. tel:[phone] OFFICE/OUTPA TIENT VISIT, [facility], [address], [place], [address], [place] tel:[phone] [facility] Afib1 (chief complaint)hy pothyroidism 1 (chief complaint)sl eep apnea1 (chief complaint)ve ntral hernia1 (chief complaint) HypothyroidismVen tral herniaSleep apnea, unspecifiedBody mass index (BMI) 50-59.9 , adultAtrial fibrillation 0-201 9 Tank Dockery. [address], [address], [place], [address]. tel:[phone] Referring Provider: Sarkis Fu, [address], [place], [address]. tel:[phone] OFFICE/OUTPA TIENT VISIT, [facility], [address], [place], [address], [place] tel:[phone] [facility] PHysical (chief complaint) Encounter for general adult medical exam w abnormal findingsSleep apnea, unspecifiedHypoth yroidismPain in left kneeBody mass index (BMI) 50-59.9 , adult 8 Tank Dockery. [address], [place], [facility]. tel:[phone] Referring Provider: Sarkis Fu [address] [place] [address] A, [place], [facility]. tel:[phone] OFFICE/OUTPA TIENT VISIT, [facility], [address] [place] [address] [address] [place] [place], [facility], tel:[phone] [facility] Physical (chief complaint) HypothyroidismSle ep apneaVentral herniaHyperglycem ia 8 Tank Dockery. [address] [facility] [address], [place], [facility]. tel:[phone] Referring Provider: Sarkis Fu [address] [place] [address] A, [place], [facility]. tel:[phone] OFFICE/OUTPA TIENT VISIT, [facility], [address] [place] [address] [address] [place], [facility], tel:[phone] [facility] PHysical (chief complaint)co ugh1 (chief complaint)th yroid1 (chief complaint)ob esity1 (chief complaint)sl eep apnea1 (chief complaint)he rnia1 (chief complaint) Acute bronchitisSleep apneaBody mass index (BMI) 50-59.9 , adultHypothyroidi sm 7 Tank Bhagat [address], [place], [facility]. tel:[phone] Referring Provider: Juan Pablo Ornelas [address], [place], [facility]. tel:[phone] OFFICE/OUTPA TIENT VISIT, [facility], [address] [place] [address] [place], [address], [place] tel:[phone] [facility] pneumonia1 (chief complaint)he morrhoid1 (chief complaint)fa cial lesion (chief complaint) Nevus, non-neoplasticPne umoniaHemorrhoidH ypothyroidism, unspecified 7 Tank Bhagat [address], [place], [facility]. tel:[phone] Referring Provider: Juan Pablo Ornel[address], [place], [facility]. tel:[phone] OFFICE/OUTPA TIENT VISIT, [facility], [address], [place], [facility], tel:[phone] [facility] HTN (chief complaint)hy opthyroidims (chief complaint)af ib (chief complaint)sl eep apnea1 (chief complaint) Sleep apnea, unspecifiedEssent ial (primary) hypertensionHypot hyroidismConsumpt ion coagulopathy 6 Tank Dockery. [address], [place], [facility]. tel:[phone] Referring Provider: Juan Pablo Ornelas [address], [place], [facility]. tel:[phone] OFFICE/OUTPA TIENT VISIT, [facility], [address], [place], [facility], tel:[phone] [facility] ADD (chief complaint)co ugh (chief complaint)fi nger numbness (chief complaint) Paresthesia of skinAcute bronchitisAttenti on deficit 6 Tank Dockery. [address], [place], [address]. tel:[phone] Referring Provider: Juan Pablo Ornel[address], [place], [facility]. tel:[phone] OFFICE/OUTPA TIENT VISIT, [facility], [address], [place], [address], [place] tel:[phone] [facility] sleep apnea (chief complaint)pr eDM (chief complaint)he rnia (chief complaint) Sleep apnea, unspecifiedEssent ial (primary) hypertensionMetab olic syndromeVentral hernia 6 Tank Dockery. [address], [address], [place], [address]. tel:[phone] Referring Provider: Juan Pablo Ornel[address], [place], [address]. tel:[phone] PREV VISIT, EST, AGE 40-64 [facility], [address], [place], [address], tel:[phone] [facility] Physical1 (chief complaint) Encntr for general adult medical exam w/o abnormal findings Nov 5 Tank Dockery. [address], [address], [place], [address]. tel:[phone] Referring Provider: Juan Pablo Ornelas [address], [place], [address]. tel:[phone] OFFICE/OUTPA TIENT VISIT, EST [facility], [address], [place], [address], [place] tel:[phone] [facility] HTN (chief complaint)le g swelling (chief complaint)af ib (chief complaint)sl eep apnea (chief complaint)so re throat (chief complaint) Venous insufficiencyVari cose veinsSore throatUnspecified essential hypertension Apr- 5 Tank Dockery. [address], [address], [place], [address]. tel:[phone] Referring Provider: Juan Pablo Ornel[address], [place], [facility]. tel:[phone] OFFICE/OUTPA TIENT VISIT, EST [facility], [address], [place], [address], [place] tel:[phone] [facility] sleep apnea (chief complaint)th yroid disease (chief complaint) Dietary surveillance and counselingHypothy roidismSleep Apnea Nov-2 0 5 Tank Dockery. [address], [place], [address]. tel:[phone] Referring Provider: Juan [address]nel[address], [place], [address]. tel:[phone] OFFICE/OUTPA TIENT VISIT, EST [facility], [address], [place], [address], [place] tel:[phone] [facility] Afib (chief complaint)ed carlos (chief complaint)sl eep apnea (chief complaint)hy pothyroidism (chief complaint) Sleep ApneaOther and unspecified coagulation defectsHypothyroi dismDietary surveillance and counseling 0- 5 Tank Dockery. [address], [address], [place], [address]. tel:[phone] Referring Provider: Sarkis Fu, Juan [address], [place], [address]. tel:[phone] OFFICE/OUTPA TIENT VISIT, [facility], [address], [place], [address], [place] tel:[phone] [facility] proteinuria (chief complaint)co agulopathy (chief complaint)hy pothyroidism (chief complaint) Obesity, MorbidProteinuria Defibrination SyndromeHypothyro idism 9-201 4 Tank Dockery. [address], [place], [address]. tel:[phone] Referring Provider: Juan Pablo Ornel[address], [place], [address]. tel:[phone] OFFICE/OUTPA TIENT VISIT, [facility], [address], [place], [address], [place] tel:[phone] [facility] proteinuria (chief complaint)vi tamin K (chief complaint)co agulopathy (chief complaint)hy pothyroidism (chief complaint)ed carlos (chief complaint) Dietary surveillance and counselingProtein uriaPoisoning by vitamin k (phytonadione)Def ibrination SyndromeHypothyro idism 0 3-201 4 Tank Dockery. [address], [address], [place], [address]. tel:[phone] Referring Provider: Juan Pablo [address]nel[address], [place], [address]. tel:[phone] PREV VISIT, NEW, AGE 40-64 [facility], [address], [place], [address], [place] tel:[phone] [facility] Physical (chief complaint) Dietary surveillance and counselingRoutine Medical ExamRoutine Medical Exam 0-201 4 Tank Dockery. [address], [address], [place], [address]. tel:[phone] Family History Family Member Type Diagnosis Age At Onset Mother Problem (finding) CHF Father Problem (finding) Coronary artery disease Father Problem (finding) Cancer - throat [place] Payers Payer name Insurance type Covered alliance party ID Authoriza tion(s) No Information Social History Type Description Quantity Date Captured Comments Sex Male Smoking Status No Information Chief Complaint And Reason For Visit No Information Plan Of Treatment Date Type Action Status Goal Special diet education compl eted Goal Special diet education compl eted Referral Ordered: Surgery (related to Ventral hernia) ordered Referral Ordered: Angel Pardo -[facility]opathic [facility] Osteopathic Physicians : Internal Medicine : Endocrinology, Diabetes & Metabolism (related to Hypothyroidism) ordered Referral Referred To: Angel Pardo [address] [facility]
[address] [place], [place] [phone] Ordered: Referrals: Allopathic & Osteopathic Physicians : Internal Medicine : Endocrinology, Diabetes & Metabolism. Angel Pardo. Evaluate and treat ordered Referral Ordered: FARHAT MCKEON -[facility] Physicians : Surgery : Vascular Surgery (related to Ventral hernia) ordered Referral Referred To: FARHAT MCKEON [address] [place], [place], [phone] Ordered: Referrals: Allopathic & Osteopathic Physicians : Surgery : Vascular Surgery. FARHAT MCKEON. Evaluate and treat ordered Referral Ordered: CT ABDOMEN&PELVIS W/CONTRAST ordered Referral Ordered: MRI JNT OF LWR EXTRE W/O DYE Left knee ordered Referral Ordered: Yuliya Hughes (related to Nevus, non-neoplastic) ordered Referral Referred To: Yuliya Hughes [address] [place], [phone] Ordered: Referrals: Yuliya Hughes. Evaluate and treat ordered Referral Ordered: CHEST X-RAY PA/LAT TWO-VIEWS ordered Referral Ordered: US THYROID ordered Referral Ordered: Surgery (related to Ventral hernia) ordered Referral Ordered: Referrals: Surgery. Evaluate and treat ordered Referral Ordered: Farhat Mckeon (related to Encntr for general adult medical exam w/o abnormal findings) ordered Referral Referred To: Farhat Mckeon [address] [place], [phone] Ordered: Referrals: Farhat Mckeon. Evaluate and treat ordered Referral Ordered: Otolaryngology (related to Sore throat) ordered Referral Ordered: Vascular Surgery (related to Venous insufficiency) ordered Referral Ordered: Referrals: Otolaryngology. Evaluate and treat ordered Referral Ordered: Referrals: Vascular Surgery ordered Referral Ordered: US KIDNEY ordered Referral Ordered: Referral: Gastroentergy. ordered Referral Ordered: Referral: Cardiology. ordered History Of Present Illness Encounter Date Complaint History Of Prese nt Illness glucose1 Pt has high gluc ose his A1c is borderline Pt denies any polyuria, polydipsia. thyroid Pt has thyroid n odule Pt told he that he did thyroid ultrasound last April. Pt denies any dysphagia or neck pain. ventral hernia1 Pt has chronic v entral hernia .Pt denies states that he only notices occasional mild pain. . Pt has hard time pushing it back Pt denies any nausea, vomiting, constipation. Pt denies any worsening symptoms or change in size Physical Pt needs annual physical Pt just run out of synthroid. Pt has history of thyroid nodule. Pt denies any dysphagia or neck pain Pt still has not done thyroid ultrasound yet. 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 Pt has chronic lower extremity edema and he takes lasix as well. Pt has ventral hernia. Pt notices some intermittent abdominal pain due to hernia. Pt does not want surgery for ventral hernia repair unless he has to. Pt denies any nausea, vomiting, constipation or diarrhea. Pt is morbidly obese. Pt does not want bariatric surgery. Afib1 Pt has paroxymal afib with cardiomyopathy. Pt is on xarelto chronically. PT needs refills, Pt sees cardiology Pt is on lasix, spironolactone, lipitor, coreg, losartan. Pt denies any sob or chest pain. Pt denies any palpitation. hypothyroidism1 Pt has low thyro id Pt has history of thyroid nodule. Pt supposes to do thyroid ultrasound last year but he never did Pt denies any dysphagia. 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 Pt uses CPAP nightly Pt is compliant. ventral hernia1 Pt is morbidly o bese Pt has chronic large ventral hernia. Pt denies any pain. Pt is noncompliant with surgical referral. PHysical Pt needs annual physical. Pt slipped and fell last week and he hit his left on the ground .Pt feels left knee swelling with pain since the injury. Pt denies any difficulty with weight bearing. Pt denies any redness, warmth left knee. Pt has 5/10 pain constantly. Pt has cardiomyopathy with paroxymal afib. Pt takes spironolactone, lasix, losartan, coreg and lasix. Pt is off kcl due to history of hyperkalemia. Pt takes lipitor for HLp pt takes synthroid for low thyroid.. Pt has history of thyroid nodule. Pt denies any chest pain, headache, sob. etc. Physical . pt has chronic LE edema Pt takes lasix. Pt is off kcl by cardiology. Pt also takes synthoid, xarelto, coreg and losartan, and magnesium. Pt has afib Pt has cardiomyopathy. pt is obese. Pt has ventral hernia but he is noncompliant with surgical repair. Pt denies any abd pain. Pt has mild high glucose and low renal. Pt denies any polyuria polydpisiaPt denie sany other complaints cough1 Pt c/o productiv e coughing for one week Pt denies any chest pain or sob. Pt denies any calf marco a Pt notices green phlegm. Pt denies any fever Pt denies any recent travel or bedrest thyroid1 Pt has low thyro id. Pt takes synthroid Pt has thyroid nodule on ultrasound. pt denies any dysphagia PHysical obesity1 Pt is morbidly o bese Pt did not sign up for weight loss surgery. 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 hemorrhoid1 Pt states that al davis feels something around outside anal area for two months. Pt notices some bright red blood with BM pt denies any pain Pt had internal hermorrhoid 2.5 years ago facial lesion Pt notices itchi ng and scabbing spot right forehead for 6 months ago. Pt denies any bleeding. Pt has been picking on it due to irtiation. pneumonia1 Pt recenlty was at [place] and he was diagnosed wtih pneumonia 8 days ago. . Pt was admitted to hospital and he just finished ceftin, prednisone. Pt uses inhalers. Pt still feels mild wheezing and also coughing with clear phlegm now. pt denies any fever. Pt denies any SOB HTN Pt has HTN Pt lerma s afib pt sees cardiology. Pt just seen cardiology this morning and he supposes to increase coreg from 12. 5 to 25 mg bID. Pt takes losartan. His BP is bordline. No chest pain or headache hyopthyroidims Pt taks synthroi d Pt has history of thyroid nodule. afib Pt has chronic a fib. Pt takes xarelto. 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 Pt uses CPAP nightly. ADD PT states that al davis has chronic attention deficit disorder. Pt states that he feels poor focus and lack of concentration and unable to do anything at home. Pt states that he has a diagnosis of ADD in the past cough Additional infor mation: Pt c/o productive coughing and sore throat and running nose for two weeks. Pt denies any SOB or chest pain. Pt failed OTC meds. Pt notices ear pain also. finger numbness Pt c/o lateral l eft thumb numbness for several months. Pt notices mild weakness as well. Pt notices mild pain around base of thumb when he tries to grab things with his left thumb. Pt denies any symptoms at night sleep apnea Relevant history : a BMI of 55.79. Additional information: Pt has sleep apnea. Pt uses CPAP nightly throughout the night. Pt states that he tolerates the CPAP well. Pt denies any SOB, snorning Pt feels much more energy in AM. preDM Pt has midly olegario vated glucose. Pt is prediabetic. Pt denies any polyuria, polydipsia hernia Additional infor mation: Pt has large vental hernia. Pt notices pain intemittently. Pt denies any worsening pain pt denies any size change. Physical1 Pt needs annual physical. Pt has hsitory of CHF and afib. Pt sees cardiology and is on coreg and losartan now. Pt is off metorprolol and also lisinopril. Pt takes xarelto for afib Pt takes spirnolactone and lasix and KCL also .Pt has been gaining weight during the last 3 months. Pt is not very active. Pt also notices abdominal bulge. Pt denies any pain. Pt denies any nasuea, vomiting, diarrhea. PT denies any other complaitns. Pt denies any chest pain or SOB afib Pt has paroxymal afib and CHF. Pt is seeing cardiology. Pt denies any chest pain or SOB. Pt takes toprol and xarelto. Pt denies any acute issue sleep apnea Relevant history : a BMI of 46.44. Additional information: Pt is using CPAP nightly now. Pt sleeps well and feels more refreshed in the morning. sore throat Pertinent negati ves include cough, dyspnea, fatigue, fever, rash or wheezing. Additional information: Pt states that he notices some itchy throat and vague discomfort around his throat for several months. Pt denies any GERD. Pt may have postnasal drainage. PT is having diffuclulty describing his feelings. Pt denies any dyhsphagia. leg swelling Pt has chornic b ilateral LE swelling and edema. Pt takes lasix and KCL. Pt is trying weight loss and low sodium diet. Pt states that both of his leg swells up despite above measure and taking lasix. Pt denies any SOB HTN Pt takes toprol and lisinopril and his BP is slightly high. Pt denies any chest pain or SOB Instructions Date Instruction Additional Infor porfirio Special diet education Related t o Body mass index (BMI) 50-59.9, adult Increase physical activity Relat ed to Hypothyroidism Weight management Related to Hyp othyroidism Weight management Related to Enc ounter for general adult medical exam w abnormal findings Special diet education Related t o Body mass index (BMI) 50-59.9 , adult Weight management Related to Hyp othyroidism Prescribed Diet Educ ation/Lifestyle Education Regarding Diet Related to Dietary Surveillance and Counseling Prescribed Activity and Exercise Education Related to Dietary Surveillance and Counseling Weight management Related to Sle ep apnea Increase physical activity Relat ed to Sleep apnea Prescribed Diet Educ ation/Lifestyle Education Regarding Diet Related to Dietary Surveillance and Counseling Prescribed Activity and Exercise Education Related to Dietary Surveillance and Counseling Prescribed Activity and Exercise Education Related to Dietary Surveillance and Counseling Prescribed Diet Educ ation/Lifestyle Education Regarding Diet Related to Dietary Surveillance and Counseling Prescribed Diet Educ ation/Lifestyle Education Regarding Diet Related to Dietary Surveillance and Counseling Prescribed Activity and Exercise Education Related to Dietary Surveillance and Counseling Prescribed Activity and Exercise Education Related to Dietary Surveillance and Counseling Prescribed Diet Educ ation/Lifestyle Education Regarding Diet Related to Dietary Surveillance and Counseling Prescribed Activity and Exercise Education Related to Dietary Surveillance and Counseling Prescribed Diet Educ ation/Lifestyle Education Regarding Diet Related to Dietary Surveillance and Counseling Decrease caloric intake Related to Dietary surveillance counseling Physical activity counseling Rel ated to Dietary surveillance counseling Decrease caloric intake Related to Dietary surveillance counseling Physical activity counseling Rel ated to Dietary surveillance counseling Dietary counseling Related to Mo rbid obesity, BMI 40 or more Decrease caloric intake Related to Morbid obesity, BMI 40 or more Dietary counseling Related to Di etary surveillance counseling Decrease caloric intake Related to Dietary surveillance counseling Dietary counseling Related to Di etary surveillance counseling Decrease caloric intake Related to Dietary surveillance counseling Assessments Type Assessment Date No Information
[2024-09-06 13:18] LABS: Red Blood Cell Folate 522 ng/mL RBC (>280)
== END 2024-09-05 14:20 | disposition home or self-care (01) | DRG 194 ==
LOC: ANHED 15:22 → ANH3MEDSUR 08-31 01:18 → ANHIMU 08-31 22:20 → ANH3MEDSUR 09-01 14:37
PROVIDERS: Nurse Practitioner; Nurse Practitioner Acute Care; Physician Assistant; Student in an Organized Health Care Education/Training Program; Admitting Provider Internal Medicine; Emergency Provider Emergency Medicine; PCP Family Medicine; Visit Provider General Practice
DX: J18.9 Pneumonia, unspecified organism (principal); J44.0 Chronic obstructive pulmonary disease with (acute) lower respiratory infection; J44.1 Chronic obstructive pulmonary disease with (acute) exacerbation; Z68.44 Body mass index [BMI] 60.0-69.9, adult; I12.9 Hypertensive chronic kidney disease with stage 1 through stage 4 chronic kidney disease, or unspecified chronic kidney disease; E66.01 Morbid (severe) obesity due to excess calories; N18.30 Chronic kidney disease, stage 3 unspecified; I50.9 Heart failure, unspecified; Z23 Encounter for immunization; K21.9 Gastro-esophageal reflux disease without esophagitis; E03.9 Hypothyroidism, unspecified; D64.9 Anemia, unspecified; G47.33 Obstructive sleep apnea (adult) (pediatric); I48.0 Paroxysmal atrial fibrillation; E78.5 Hyperlipidemia, unspecified; M19.90 Unspecified osteoarthritis, unspecified site; R73.9 Hyperglycemia, unspecified; T38.0X5A Adverse effect of glucocorticoids and synthetic analogues, initial encounter; F41.9 Anxiety disorder, unspecified; Z86.718 Personal history of other venous thrombosis and embolism; Z79.01 Long term (current) use of anticoagulants
CPT/HCPCS: 36415; 71046; 71275; 80053; 82607; 82747; 82948; 83036; 83735; 83880; 84443; 84484; 85025; 85055; 85380; 85610; 85652; 85730; 86140; 87040; 87637; 87641; 90471; 90662; 93005; 93306; 94640; 96365; 96367; 96375; 97165; 99285; A9270; C8929; G0008; G0378; J0456; J0696; J1650; J1815; J1940; J2919; J7512; Q9967

== ENCOUNTER 2025-07-01 11:53 | Emergency (ER) | payer MEDICARE, SELFPAY ==
--- NOTE | ~2025-07-01 | CT_ITS ---
CT abdomen pelvis w con Clinical History: Abdominal pain . Comparison: None Technique: Axial images lung bases to symphysis pubis IV contrast information not listed in PACS Coronal, sagittal reformats CT images acquired with automatic exposure control for dose reduction DLP: 1116 mGy-cm Findings: Abdominal wall laxity and obesity, causing exclusion of left lateral abdomen. Lung bases: Clear. Visualized heart and pericardium: Unremarkable. Liver: Enlarged. Steatosis. Suspect mild cirrhosis. Gallbladder: Unremarkable. Spleen: Unremarkable. Pancreas: Unremarkable. Adrenal glands: Unremarkable. Kidneys: Right kidney- No hydronephrosis. No renal stones. Left kidney- No hydronephrosis. No renal stones. Distal esophagus/stomach: Unremarkable. Small bowel loops: Normal caliber and wall thickness. Colon: Diverticula. Normal caliber and wall thickness. Normal appendix, right upper quadrant subhepatic. Nodes: No enlarged nodes. Peritoneum: No ascites. No free air. Urinary bladder: Unremarkable. Prostate: Unremarkable. Bones: No acute bony abnormality. L5 spondylolysis, with spondylolisthesis Soft tissues: Large ventral hernia, containing segments of large and small bowel. Extensive soft tissue emphysema and inflammation and fluid. Ill-defined collection with air-fluid level. Associated abdominal wall skin thickening. Aorta: No aneurysm or dissection. IVC: Unremarkable. Main portal vein/SMV/splenic vein: Patent. Findings conveyed via telephone by myself to Dr. Omero Cornejo at 07/01/2025 13:34 SMALL OFFSET PRINTER. IMPRESSION: 1. Large ventral hernia containing small and large bowel loops. 2. Superimposed abscess within hernia sac with additional ill-defined foci of soft tissue gas, inflammation, and fluid. Appearance may all be due to abscess but necrotizing infection not excluded. Recommend urgent surgical consultation. 3. Bowel perforation as cause of infection possible. 4. Associated abdominal wall cellulitis. Reviewed, dictated and finalized at location R. L OFFSET PRINTER
--- NOTE | ~2025-07-01 | XR_ITS ---
Examination: XR chest 2V Clinical History: sob Comparison: 08/30/2024 Technique: PA and Lateral Findings: Overlying soft tissue artifact attenuation Cardiomediastinal silhouette normal size and configuration. Lungs clear. No acute bony abnormality. IMPRESSION: 1. No acute cardiopulmonary findings. Reviewed, dictated and finalized at location R. CTOR OF PUBLICATIONS
[2025-07-01 11:59] VITALS: BP 144/73; PULSE 70; RESP 29; O2SAT 92
--- NOTE | 2025-07-01 12:06 | ECG_ITS ---
Test Date: 2025-07-01 12:10:56 Measurements Intervals [place] Rate: 70 P: 0 ID: 0 QRS: -10 QRSD: 150 T: 14 QT: 405 QTc: 440 Interpretive Statements ATRIAL FIBRILLATION INTRAVENTRICULAR CONDUCTION DELAY [130+ ms QRS DURATION] PROBABLE SEPTAL MYOCARDIAL INFARCTION , OF INDETERMINATE AGE [35 ms Q WAVE IN V1/V2] Compared to ECG 08/30/2024 16:17:58 no change Electronically Signed On 07-01-2025 13:25:17 [employer] by Julian Kern M.D.
[2025-07-01 12:22] LABS: Hematocrit 40.2 % (42.0-52.0); Hemoglobin 12.7 g/dL (14.0-18.0); Mean Corpuscular HGB Conc 31.6 g/dl (32-36); Mean Corpuscular Hemoglobin 32.1 pg (26-34); Mean Corpuscular Volume 101.5 fl (80-100); Platelet Count Result 291 k/mm3 (150-375); Red Blood Count 3.96 M/mm3 (4.6-6.20); White Blood Count 27.9 K/mm3 (4.5-10.0)
--- NOTE | 2025-07-01 12:43 | ED_ITS ---
HPI - Abdominal Pain General Chief Complaint: Abdominal Pain Stated Complaint: abd pain Time Seen by Provider: 07/01/25 12:41 Source: patient and EMS Mode of arrival: EMS History of Present Illness HPI narrative: 64 years old white male came from home by ambulance complaining of abdominal hernia pain started few days ago and gradually getting worse. He denies any fever or chills or nausea or vomiting or diarrhea or constipation, last food intake was 3 days ago. Patient noticed discoloration of the skin of the abdominal hernia over the last 6-8 hours. History of abdominal hernia repair 3 times at [facility]. History of hypertension hyperlipidemia COPD on chronic oxygen 2 liter/minute, hypothyroidism, atrial fibrillation on Xarelto, congestive heart failure Related Data Home Medications ?Medication ?Instructions ?Recorded ?Confirmed ?Last Taken ?Type magnesium oxide 400 mg PO DAILY 10/04/2001/21 Unknown History [id number] 1 tablet PO DAILY 2 04/03/25 Unknown History tablet (Multivitamin 50 Plus tablet) Allergies Allergy/AdvReac Type Severity Reaction Status Date / Time bacitracin Allergy Unknown Unknown Verified 07/01/25 12:06 neomycin Allergy Unknown Unknown Verified 07/01/25 12:06 polymyxin B Allergy Unknown Unknown Verified 07/01/25 12:06 Review of Systems 2 Review of Systems: All systems reviewed & are unremarkable except as noted in HPI and below PMFSH Past Medical History Medical History Chronic anticoagulation Heart failure with preserved ejection fraction Chronic kidney disease, stage 3 Hypothyroidism History of venous thromboembolism Incisional hernia Dyslipidemia Hx of pulmonary embolus x3, taking Xarelto Hypertension Heart disease Follows with Dr Chris Kat [facility] Anxiety Arthritis History of deep venous thrombosis Current use of penitentiary anticoagulation Paroxysmal atrial fibrillation Gastroesophageal reflux disease Obstructive sleep apnea on CPAP Morbid obesity Chronic anemia Congestive heart failure Ejection fraction was about 30% on echocardiogram in April 2014. Surgical History Surgical History Hx of hernia repair 2007, 2009 History of sinus surgery History of ventral hernia repair x3. Family History Family History Father Leukemia Sibling Breast cancer Parkinson disease Father Cancer Mother Thyroid disorder Sibling Cancer Social History Social History Social History: Surrogate decision maker: Dennis Baldwin, son. Code status: Full code. Smoking status: Never smoker Second hand tobacco smoke exposure: No Alcohol intake: former Substance use: never Substance use type: does not use Do You Feel Safe in your Home?: Yes Lack of Transportation: No Lack of Food: Never True Current Housing: I Have Housing Concerned About Future Housing: No Difficulty Paying Gas/Electric Bills: No Difficulty Paying for Meds: No Currently Unemployed: No Education: Bachelor's Degree Difficulty w/ Childcare or Family Care: No Additional living arrangements comments: Lives in his own home in [place]. Occupation/Education: other Additional occupation/education comments: disabled Gender identity (if verbalized by the patient): Male Spiritual care concerns: No Exam 2 Narrative: General appearance: Well-developed, well-nourished, morbidly obese, nasal cannula on, 2 L Skin: Pale Head: Normocephalic, nontraumatic Eyes: Clear conjunctiva ENT: Oropharynx normal, ears normal, nose normal Neck: Supple, nontender Chest and respiratory: Airway patent, no respiratory distress, no accessory muscle use Heart: Regular rate/rhythm Abdomen: Large abdominal hernia, diffusely tender, dark bluish blackish discoloration of the skin, 1 superficial ulceration of the skin, warm to touch Musculoskeletal: Normal range of motion, nontender back Neurologic: Alert and oriented ?3, BATTERY TEST ENGINEER is normal as tested, no gross motor deficit Course Consultations Consultation #1: DR DEL REAL TRANSFER PATIENT TO [facility] Date: 07/01/25 Consultation #2: DR JOANN APONTE OF [facility] WHO ACCEPTED PATIENT TRANSFER Date: 07/01/25 Vital Signs Vital signs: Vital Signs Pulse Rate 70 07/01/25 11:59 Respiratory Rate 29 H 07/01/25 11:59 Blood Pressure 144/73 H 07/01/25 11:59 Pulse Oximetry 92 07/01/25 11:59 Oxygen Delivery Room Air 07/01/25 11:59 Temperature 36.7 C 07/01/25 14:55 Pulse Rate 74 07/01/25 14:55 Respiratory Rate 26 H 07/01/25 14:55 Blood Pressure 137/72 07/01/25 14:55 Pulse Oximetry 98 07/01/25 14:55 Oxygen Delivery Room Air 11/02/25 11:59 MDM - Abdominal Pain MDM Narrative Medical decision making narrative: Patient came with gradual increase of pain and size of the abdominal hernia over the last few days Vital signs showing respiratory rate of 29, oxygen saturation 92% on room air otherwise within normal limit Physical examination showing large diffusely tender, ventral hernia with discolored skin anteriorly Differential diagnosis include necrotizing fasciitis, strangulated hernia, intra-abdominal infection, cellulitis Blood workup today includes CBC, CMP, lipase, lactic acid showed WBC 27.9, BUN 41, creatinine 1.98, total bilirubin 1.9, alkaline phosphatase 128, Chest x-ray showed no acute abnormality CT abdomen and pelvis with IV contrast showed abscess versus necrotizing infection not excluded. Bowel perforation as a cause of infection possible. Associated abdominal wall cellulitis Patient started on Zosyn and vancomycin Differential Diagnosis Differential diagnosis: Likely other (As above) Medical Records Attestation: I reviewed the patient's medical records. Lab Data Attestation: I reviewed the patient's lab results. 07/01/25 12:17 07/01/25 12:17 Labs: Lab Results 07/01/25 07/01/25 07/01/25 Range/Units 12:16 12:17 13:49 WBC 27.9 H (4.5-10.0) K/mm3 RBC 3.96 L (4.6-6.20) M/mm3 Hgb 12.7 L (14.0-18.0) g/dL Hct 40.2 L (42.0-52.0) % MCV 101.5 H (80-100) fl MCH 32.1 (26-34) pg MCHC 31.6 L (32-36) g/dl RDW 14.0 (11.5-14.5) % Plt Count 291 D (150-375) k/mm3 MPV 10.8 H (7.4-10.4) fl Immature Gran % (Auto) Not Reportable Neut % (Auto) Not Reportable Lymph % (Auto) Not Reportable [place] % (Auto) Not Reportable Eos % (Auto) Not Reportable Baso % (Auto) Not Reportable Lymph # (Auto) Not Reportable [place] # (Auto) Not Reportable Eos # (Auto) Not Reportable Baso # (Auto) Not Reportable Abs Immat Gran (auto) Not Reportable Absolute Neuts (auto) Not Reportable Absolute Nucleated RBC Not Reportable Total Counted 100 Neutrophils % (Manual) 80 H (46-73) % Band Neutrophils % 16 H (0-6) % Lymphocytes % (Manual) 1 L (18-44) % Monocytes % (Manual) 3 (3-9) % Nucleated RBC % Not Reportable Abs Neuts (Manual) 26.78 H (1.3-6.7) K/mm3 Abs Lymphs (Manual) 0.27 L (1.1-4.5) K/mm3 Abs Monocytes (Manual) 0.83 (0.1-0.90) K/mm3 Platelet Estimate Adequate (Adequate) Schistocytes None seen PT 39.4 H (11.1-14.7) Seconds INR 4.3 APTT 49.4 H (22.3-36.8) Seconds Sodium 138 (137-145) mmol/L Potassium 4.4 (3.4-5.0) mmol/L Chloride 104 (98-107) mmol/L Carbon Dioxide 22 (22-30) mmol/L Anion Gap 12 (4-12) mmol/L BUN 41 H (9-20) mg/dL Creatinine 1.98 H (0.7-1.3) mg/dL Estim Creat Clear Calc 56 ml/min Estimated GFR 34 L (59 - ) Glucose 105 (65-110) mg/dL Lactic Acid 2.7 H (0.7-2.0) mmol/L Calcium 9.0 (8.4-10.2) mg/dL Total Bilirubin 1.9 H (0.2-1.3) mg/dL AST 45 (17-59) U/L ALT 49 (6-50) U/L Alkaline Phosphatase 128 H (38-126) U/L Total Protein 6.9 (6.3-8.2) g/dL Albumin 3.4 L (3.5-5.1) g/dL Lipase 98 (23-300) U/L Imaging Data Radiologist's impression: ITS Impressions Abdomen/Pelvis CT 07/01/25 13:29 IMPRESSION: 1. Large ventral hernia containing small and large bowel loops. 2. Superimposed abscess within hernia sac with additional ill-defined foci of soft tissue gas, inflammation, and fluid. Appearance may all be due to abscess but necrotizing infection not excluded. Recommend urgent surgical consultation. 3. Bowel perforation as cause of infection possible. 4. Associated abdominal wall cellulitis. Chest X-Ray 07/01/25 13:45 IMPRESSION: 1. No acute cardiopulmonary findings. Impressions Abdomen/Pelvis CT 07/01/25 13:29 IMPRESSION: 1. Large ventral hernia containing small and large bowel loops. 2. Superimposed abscess within hernia sac with additional ill-defined foci of soft tissue gas, inflammation, and fluid. Appearance may all be due to abscess but necrotizing infection not excluded. Recommend urgent surgical consultation. 3. Bowel perforation as cause of infection possible. 4. Associated abdominal wall cellulitis. Critical Care Time Critical Care Time Critical Care Time: Yes Total Critical Care Time: 30 Discharge Plan Discharge Clinical Impression: Intra-abdominal abscess, Necrotizing soft tissue infection, Bowel perforation, Abdominal wall cellulitis, LARISA (acute kidney injury) Patient Disposition: Acute Care Hospital Condition: Serious Instructions: Antibiotic Form Additional Instructions: TRANSFERRED TO [facility] Patient Language: Sinhala Prescriptions: No Action magnesium oxide 400 mg magnesium capsule 400 mg PO DAILY cholecalciferol (vitamin D3) 50 mcg (2,000 unit) capsule 50 mcg PO DAILY Qty: 90 0RF carvedilol 12.5 mg tablet 12.5 mg PO Q12H Qty: 180 1RF Multivitamin 50 Plus Tablet 1 tablet PO DAILY albuterol sulfate 90 mcg/actuation HFA aerosol inhaler See Rx Instructions .ROUTE .COMPLEX Qty: 8.5 3RF Dose Instruction: INHALE 1 TO 2 PUFFS BY MOUTH EVERY 4 TO 6 HOURS NEEDED FOR SHORTNESS OF BREATH OR WHEEZING Rx Instructions: INHALE 1 TO 2 PUFFS BY MOUTH EVERY 4 TO 6 HOURS NEEDED FOR SHORTNESS OF BREATH OR WHEEZING fluticasone propionate [Allergy Relief (fluticasone)] 50 mcg/actuation spray,suspension 2 spray intranasal DAILY Qty: 48 1RF Rx Instructions: administer into each nostril spironolactone 25 mg tablet 12.5 mg PO DAILY Qty: 90 2RF Xarelto 15 mg tablet 15 mg PO DAILY Qty: 90 1RF Rx Instructions: must administer with evening meal atorvastatin 80 mg tablet 80 mg PO QHS Qty: 90 3RF budesonide-formoterol [Symbicort] 160-4.5 mcg/actuation HFA aerosol inhaler See Rx Instructions .ROUTE .COMPLEX Qty: 10.2 2RF Dose Instruction: INHALE 2 PUFFS BY MOUTH EVERY 12 HOURS. RINSE MOUTH AND SPIT AFTER EACH USE Rx Instructions: INHALE 2 PUFFS BY MOUTH EVERY 12 HOURS. RINSE MOUTH AND SPIT AFTER EACH USE furosemide 40 mg tablet 40 mg PO BID Qty: 180 1RF levothyroxine 25 mcg tablet 25 mcg PO DAILY Qty: 90 1RF Zepbound 15 mg/0.5 mL pen injector 15 mg subcut WEEKLY Qty: 2 1RF Follow-up/Referrals: Annia Chung APRN [Primary Care Provider, Family Practice]
[2025-07-01 12:44] LABS: Alanine Aminotransferase 49 U/L (6-50); Albumin Level 3.4 g/dL (3.5-5.1); Alkaline Phosphatase 128 U/L (38-126); Anion Gap 12 mmol/L (4-12); Aspartate Amino Transferase 45 U/L (17-59); Bilirubin,Total 1.9 mg/dL (0.2-1.3); Blood Urea Nitrogen 41 mg/dL (9-20); Calcium 9.0 mg/dL (8.4-10.2); Carbon Dioxide 22 mmol/L (22-30); Chloride 104 mmol/L (98-107); Estimated CRCL calculation 56 ml/min; Estimated Glomerular Filt Rate 34; Glucose 105 mg/dL (65-110); Lipase 98 U/L (23-300); Potassium 4.4 mmol/L (3.4-5.0); Sodium 138 mmol/L (137-145); Total Protein 6.9 g/dL (6.3-8.2)
[2025-07-01 12:47] VITALS: BP 137/72; PULSE 73; RESP 38; O2SAT 96
[2025-07-01 12:48] LABS: Band Neutrophils Percent 16 % (0-6); Lymphocytes Absolute Manual 0.27 K/mm3 (1.1-4.5); Lymphocytes Percent Manual 1 % (18-44); Neutrophils Absolute Manual 26.78 K/mm3 (1.3-6.7); Neutrophils Percent Manual 80 % (46-73); Total Cells Counted 100
[2025-07-01 12:49] LABS: Monocytes Absolute Manual 0.83 K/mm3 (0.1-0.90); Monocytes Percent Manual 3 % (3-9)
[2025-07-01] MEDS: HYDROmorphone HCL INJ (*CRX) 1 MG/ML SYR 0.5 MG IV PUSH (12:51)
[2025-07-01] MEDS: SODIUM CHLORIDE 0.9% IV 1,000 ML 999 ML IV CONT (12:51)
[2025-07-01] MEDS: ONDANSETRON INJ 4 MG/2 ML VIAL IV PUSH (12:51)
[2025-07-01 12:53] LABS: Schistocytes None Seen
--- NOTE | 2025-07-01 13:52 | PC.NURSE ---
Per MD Cornejo no blood cultures needed prior to abx
[2025-07-01] MEDS: PIPERACILLIN/TAZOBACTAM SOD 3.375 GM in SODIUM CHLORIDE 0.9% IV 50 ML 100 ML IVPB (13:53)
[2025-07-01] MEDS: VANCOMYCIN 1,250 MG/NS 250 ML 1,250 MG/250 ML BAG 166.67 MG IVPB ×2 (14:08→15:41)
[2025-07-01 14:48] LABS: INR 4.3; Partial Thromboplastin Time 49.4 Seconds (22.3-36.8); Prothrombin Time 39.4 Seconds (11.1-14.7)
[2025-07-01 14:55] VITALS: BP 137/72; PULSE 74; RESP 26; TEMP 36.7; O2SAT 98
[2025-07-01] MEDS: SODIUM CHLORIDE 0.9% IV 1,000 ML 200 ML IV CONT (15:41)
--- NOTE | 2025-07-01 16:51 | PC.NURSE ---
patient being transferred to [facility] with abx and ivf infusing per order
== END 2025-07-01 16:51 | disposition short-term general hospital (02) ==
PROVIDERS: Emergency Medicine; Emergency Provider Emergency Medicine; PCP Nurse Practitioner Family
DX: K63.1 Perforation of intestine (nontraumatic) (principal); K65.1 Peritoneal abscess; L03.311 Cellulitis of abdominal wall; M72.6 Necrotizing fasciitis; N17.9 Acute kidney failure, unspecified; I48.0 Paroxysmal atrial fibrillation; I50.9 Heart failure, unspecified; I13.0 Hypertensive heart and chronic kidney disease with heart failure and stage 1 through stage 4 chronic kidney disease, or unspecified chronic kidney disease; N18.30 Chronic kidney disease, stage 3 unspecified; J44.9 Chronic obstructive pulmonary disease, unspecified; Z99.81 Dependence on supplemental oxygen; E03.9 Hypothyroidism, unspecified; E78.5 Hyperlipidemia, unspecified; E66.01 Morbid (severe) obesity due to excess calories; Z68.43 Body mass index [BMI] 50.0-59.9, adult; D64.9 Anemia, unspecified; K21.9 Gastro-esophageal reflux disease without esophagitis; G47.33 Obstructive sleep apnea (adult) (pediatric); M19.90 Unspecified osteoarthritis, unspecified site; F41.9 Anxiety disorder, unspecified; Z86.718 Personal history of other venous thrombosis and embolism; Z86.711 Personal history of pulmonary embolism; Z79.01 Long term (current) use of anticoagulants; Z79.899 Other long term (current) drug therapy; I45.9 Conduction disorder, unspecified; R94.31 Abnormal electrocardiogram [ECG] [EKG]
CPT/HCPCS: 36415; 71046; 74177; 80053; 83605; 83690; 85025; 85610; 85730; 93005; 96361; 96365; 96366; 96367; 96375; 99285; J1171; J2405; J2543; J3373; J7030; Q9967

== ENCOUNTER 2025-07-20 19:13 | Observation (INO) | payer MEDICARE, SELFPAY ==
--- OUTSIDE RECORDS SUMMARY | 2025-07-01 17:24 | XMS_ITS | Encounter Summary ---
Author Organization [facility] Address [address] [place], [place] [address] [address] Care Team Providers Care Groover Runner Name Role Phone Sarkis Fu MD Primary Care Provider [phone] Reason for Referral * (Routine) - Authorized Specialty Diagnoses / Procedures Referred By Heath meza Referred To Contact Procedures Follow up with provider Gale Quiñones, JAILYN-PRISON LIBRARIAN [address] [place] [address] Phone: tel: fax:[phone] [facility] [address] [facility] [address] [place] [address] Phone: tel: fax: Referral ID Status Reason Start Date Expiration Date V isits Requested Visits Authorized [id number] Authorized 07/11/2025 07/11/2026 1 1 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 Reason for Visit * Reason Comments Pain Abdominal Pt bibems. Pt iván t from [facility] c/o abdominal pain. CT at [facility] showed concerns for nec fasc, hernia, and bowel perf. Vancomycin administered at [facility]. Pmhx a fib. vss * Auth/Cert Specialty Diagnoses / Procedures Referred By Heath meza Referred To Contact Diagnoses Abd pain Referral ID Status Reason Start Date Expiration Date Visits Re quested Visits Authorized [id number] 1 1 Encounter Details Date Type Department Care Team (Late st Contact Info) Description 07/01/2025 5:24 PM ELEC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 - 07/20/2025 2:58 PM ELEC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 Hospital Encounter SL 5S ACUTE [address] [place] [address] Carlos Parkinson MD [address] [facility] DIV OF EMERGENCY [place] [address] Gregg Swenson DO [address] [facility] [address] [place] [id number] Kamaljit Nicole MD [address] [facility] 2L DIV OF TRAUMA [place] [phone] Erinn Murillo MD [address] [facility] 2L DIV OF TRA[place] [address] Rinku Marks MD [address] [facility] 2L DIV [place] [address] Colby Beck DO [address] [place] [id number] Trauma Discharge Disposition: Group Home Facility Social History Tobacco Use Types Packs/Day Years Used Date Smoking Tobacco: Never Alcohol Use Standard Drinks/Week Comments No 0 (1 standard drink = 0.6 oz pur e alcohol) AUDIT-C Answer Date Recorded Q1: How often do you have a drink containing alcohol? Patient unable to answer 07/02/2025 Q2: How many drinks containi ng alcohol do you have on a typical day when you are drinking? Patient unable to answer Q3: How often do you have si x or more drinks on one occasion? Patient unable to answer 07/02/2025 Overall Financial Resource Strain (CARDIA) Answe r Date Recorded How hard is it for you to pa y for the very basics like food, housing, medical care, and heating? Patient declined 07/13/2025 [place] [place] [facility] - Occupational Stress Questionnaire Answer Date Recorded Do you feel stress - tense, restless, nervous, or anxious, or unable to sleep at night because your mind is troubled all the time - these days? Patient declined 07/13/2025 Hunger Vital Sign Answer Date Recorded Within the past 12 months, y ou worried that your food would run out before you got the money to buy more. Patient declined Within the past 12 months, t he food you bought just didn't last and you didn't have money to get more. Patient declined PRAPARE - Transportation Answer Date Re corded In the past 12 months, has l ack of transportation kept you from medical appointments or from getting medications? Patient declined 07/13/2025 In the past 12 months, has l ack of transportation kept you from meetings, work, or from getting things needed for daily living? Patient declined 07/13/2025 Housing Stability Vital Sign Answer Atilio e Recorded In the last 12 months, was t here a time when you were not able to pay the mortgage or rent on time? Patient declined 07/13/20 25 In the past 12 months, how m any times have you moved where you were living? 0 07/13/2025 At any time in the past 12 m [facility], were you homeless or living in a snf (including now)? Patient declined 07/13/2025 Sex and Gender Information Value Date Recorded Sex Assigned at Not on file Legal Sex Male 5:15 PM ELEC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 Gender Identity Not on file Sexual Orientation Not on file documented as of this encounter Last Filed Vital Signs Vital Sign Reading Time Taken Comments Blood Pressure 151/76 07/20/2025 2:42 PM ELEC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 Pulse 82 07/20/2025 12:31 PM ELEC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 Temperature 36.8 C (98.2 F) 07/20/2025 2:42 PM ELEC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 Respiratory Rate 18 07/20/2025 12:3 1 PM ELEC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 Oxygen Saturation 97% 07/20/2025 12: 31 PM ELEC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 Inhaled Oxygen Concentration 40% 07/20/2025 5 :06 AM ELEC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 Weight 189.1 kg (416 lb 14.2 oz) 07/03/2025 3:40 AM ELEC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 Height 182.9 cm (6' 0.01) 07/02/2025 6:44 AM CS T Body Mass Index 56.53 07/02/2025 6:44 AM ELEC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 documented in this encounter Functional Status * Functional and Cognitive Status Question Answer Date of Assessment Author Is person deaf or have vanita us hearing difficulty? No 07/03/2025 6:15 PM Erlinda Salomon RN Is person blind or have seri ous difficulty seeing? No 07/03/2025 6:15 PM Erlinda Salomon RN Does person have serious difficulty walking/climbing stairs? No 07/03/2025 6:15 PM Erlinda Salomon RN Does person have difficulty dressing/bathing? No 07/03/2025 6:15 PM Erlinda Salomon RN Does person have difficulty doing errands alone? No 07/03/2025 6:15 PM Erlinda Salomon RN Does person have difficulty concentrating/remembering/making decisions? No 07/03/2025 6:15 PM Erlinda Salomon RN * Question Answer Date of Assessment Author Q1: How often do you have a drink containing alcohol? Patient unable to answer 07/02/2025 6:47 AM Juaquin Swift RN Q2: How many drinks containing alcohol do you have on a typical day when you are drinking? Patient unable to answer 07/02/2025 6:47 AM Juaquin Swift RN Q3: How often do you have six or more drinks on one occasion? Patient unable to answer 07/02/2025 6:47 AM Juaquin Swift RN * AUDIT-C Score Answer Date of Assessment Author -1 07/02/2025 6:47 AM Anum Swift RN * Is person deaf or have serious hearing difficulty? Answer Date of Assessment Author No 07/03/2025 6:15 PM Erlinda Salomon RN * Is person blind or have serious difficulty seeing? Answer Date of Assessment Author No 07/03/2025 6:15 PM Erlinda Salomon RN * Does person have serious difficulty walking/climbing stairs? Answer Date of Assessment Author No 07/03/2025 6:15 PM Erlinda Salomon RN * Does person have difficulty dressing/bathing? Answer Date of Assessment Author No 07/03/2025 6:15 PM Erlinda Salomon RN * Does person have difficulty doing errands alone? Answer Date of Assessment Author No 07/03/2025 6:15 PM Erlinda Salomon RN documented as of this encounter Mental Status * Does person have difficulty concentrating/remembering/making decisions? Answer Entry Date Author No 07/03/2025 6:15 PM Erlinda Salomon RN documented in this encounter Discharge Summaries * Rohini Wharton MD - 07/20/2025 10:07 AM CST Images from the original note were not included. Physician Discharge Summary Patient ID: Serjio Sanderson [id number] 64 year old male 1960 Admit date: 07/01/2025 Discharge date and time: 07/20/2025 Admitting Physician: Gregg Swenson, Discharge Physician: Sensing Present on Admission: incarcerated, strangulated ventral hernia with necrotizing fasciitis of abdominal wall Discharge Diagnoses: same Admission Condition: poor Discharged Condition: good Indication for Admission: Serjio Sanderson is a 64 year old male with Pmhx CHF, COPD, afib, DVT/PEon Xarelto (last taken 06/30), who presented with signs of an incarcerated, strangulated and perforated ventral hernia with overlying skin changes. After long discussion of risks and benefits (see note from Dr. Bermudez on 07/01), patient was taken to the OR late evening of 07/01 and was found to have 6cm x 6cm ventral hernia with incarcerated bowel with large amount of stool encountered, surrounding soft tissue with component of necrotizing soft tissue infection requiring excisional debridement of [id number], small bowel perforation resected and then left in discontinuity with Abthera placed. Hospital Course: Returned to OR 07/03 for re exlap, small bowel resection, anastomosis, fascial defect closed, wound vac placement. He recovered well and his wound appeared healthy on first wound vac change. He had return of bowel function and is tolerating a diet. Consults: ACC, PT/OT Procedures: PICC line placement Significant Diagnostic Studies: See hospital course Discharge Exam: Gen: NAD HEENT: AT/NC, EOMI, oropharynx clear CV: RRR Pulm: Nonlabored respirations Abd: Soft, NT/ND, wound vac in place holding suction MSK: WWP, no c/c/e Neuro: Moving all extremities, no focal deficits Psych: Appropriate mood and affect Disposition: SNF Patient Instructions: Medication List START taking these medications acetylcysteine 20 % solution Commonly known as: Mucomyst Inhale 3 mL by mouth every 4 hours while awake albuterol-ipratropium 0.5-2.5 (3) MG/3ML nebulizer solution Commonly known as: Duo-Neb Inhale 3 mL by mouth every 6 hours atorvastatin 80 MG tablet Commonly known as: Lipitor Take 1 (one) tablet by mouth at bedtime furosemide 40 MG tablet Commonly known as: Lasix Take 1 (one) tablet by mouth 2 times daily levothyroxine 25 MCG tablet Commonly known as: Synthroid Take 1 (one) tablet by mouth once daily pantoprazole EC 40 MG tablet Commonly known as: Protonix Take 1 (one) tablet by mouth once daily polyethylene glycol 3350 17 g packet Commonly known as: Miralax Take 17 (seventeen) g by mouth once daily rivaroxaban 20 MG tablet Commonly known as: Xarelto Take 1 (one) tablet by mouth daily with dinner spironolactone 25 MG tablet Commonly known as: Aldactone Take 0.5 (one-half) tablet by mouth once daily Where to Get Your Medications Information about where to get these medications is not yet available Ask your nurse or doctor about these medications acetylcysteine 20 % solution albuterol-ipratropium 0.5-2.5 (3) MG/3ML nebulizer solution atorvastatin 80 MG tablet furosemide 40 MG tablet levothyroxine 25 MCG tablet pantoprazole EC 40 MG tablet polyethylene glycol 3350 17 g packet rivaroxaban 20 MG tablet spironolactone 25 MG tablet Follow-up Information Sarkis Fu MD . Specialty: Family Medicine Contact information: [address] [address] AC[facility]ARE SUR[facility]ERY CLINIC . Contact information: [address] [facility] 2[address] Floor [facility] [address] Discharge Instructions [facility] ACUTE CARE SURGERY PATIENT DISCHARGE INSTRUCTIONS Date of admission: 07/01/2025 Date of discharge: 07/18/25 The name of your operation: Procedure(s): LAPAROTOMY EXPLORATORY, SMALL BOWEL RESECTION, ANASTAMOSIS, WOUND VAC Discharge Diagnosis: Principal Problem: Incarcerated ventral hernia Active Problems: Generalized abdominal pain Necrotizing soft tissue infection Peritonitis (HCC) Acute hypoxic respiratory failure (HCC) Septic shock (HCC) LARISA (acute kidney injury) Chronic atrial fibrillation (HCC) Chronic anticoagulation Diastolic congestive heart failure (HCC) Morbid (severe) obesity due to excess calories (HCC) Obstructive sleep apnea Hypothyroidism Cardiomegaly Admitting Provider: Gregg Swenson DO Discharging Provider: Colby Beck DO Primary surgical team: Acute Care Surgery Service Summary of Specific instructions for SERJIO SANDERSON Diet: Resume your diet as tolerated. You may find you do not have a good appetite after surgery andthat is okay. Try eating frequent small meals instead of 3 large meals. Drink fluids throughout theday. Water is best. Too many sugary drinks may give your diarrhea. Activity: No lifting anything more than 10 pounds for 6+ weeks minimum. You surgeon my give you more specific activity instructions based on your surgery. Your Surgical Wound: Negative Pressure Wound Therapy: -125mmHg continuous, black sponge to base of wound, change q 3 days or PRN Bathing: Bedbaths while wound vac in place. On days that wound vac is changed you may shower. You may shower with your wound uncovered. Let warm soapy water run over and into the wound. Rinse with clean water and pat dry. Nursing can then re apply wound vac. No swimming, hot tubs, baths, or submerging your wound under water until cleared by your surgeon. Followup: You will need to be seen 2 weeks after discharge for your surgical follow up. Check your discharge paperwork for your appointment times. Call your surgeon's office to schedule a follow-up appointmentif one wasn't make for you prior to your discharge. The number is [phone]. Option 1 for General Surgery. Acute Care Surgery Clinic: [facility] Acute Care Surgery Clinic[address] [address] If you have questions or concerns: 1. Please call the [facility] Surgery office at [phone]. 2. Outside Business Hours Questions or Concerns: Please call [facility] Hospital Staking Engineer at [phone] and have the General Surgery construction operations manager resident paged. Medications: You have been provided a prescription for: Medication List START taking these medications acetylcysteine 20 % solution Commonly known as: Mucomyst Inhale 3 mL by mouth every 4 hours while awake albuterol-ipratropium 0.5-2.5 (3) MG/3ML nebulizer solution Commonly known as: Duo-Neb Inhale 3 mL by mouth every 6 hours atorvastatin 80 MG tablet Commonly known as: Lipitor Take 1 (one) tablet by mouth at bedtime furosemide 40 MG tablet Commonly known as: Lasix Take 1 (one) tablet by mouth 2 times daily levothyroxine 25 MCG tablet Commonly known as: Synthroid Take 1 (one) tablet by mouth once daily pantoprazole EC 40 MG tablet Commonly known as: Protonix Take 1 (one) tablet by mouth once daily polyethylene glycol 3350 17 g packet Commonly known as: Miralax Take 17 (seventeen) g by mouth once daily rivaroxaban 20 MG tablet Commonly known as: Xarelto Take 1 (one) tablet by mouth daily with dinner spironolactone 25 MG tablet Commonly known as: Aldactone Take 0.5 (one-half) tablet by mouth once daily Where to Get Your Medications Information about where to get these medications is not yet available Ask your nurse or doctor about these medications acetylcysteine 20 % solution albuterol-ipratropium 0.5-2.5 (3) MG/3ML nebulizer solution atorvastatin 80 MG tablet furosemide 40 MG tablet levothyroxine 25 MCG tablet pantoprazole EC 40 MG tablet polyethylene glycol 3350 17 g packet rivaroxaban 20 MG tablet spironolactone 25 MG tablet General Your full recovery will take some time. This handout covers some common questions and concerns. Pain Control When you leave the hospital, you should have a prescription for pain medication. Have it filled at a pharmacy near your home if it was not filled prior to discharge by [facility] Outpatient Pharmacy. Some patients experience nausea and/or vomiting from certain narcotics. If you get any of these side effects, call the office at the number listed above or call the [facility] ([phone]) and ask for the Acute Care Surgery Resident construction operations manager. A prescription for a different pain reliever can be called in to your pharmacist. (Please have the number of your pharmacy available). You may also try regularTylenol. Medication refills can be obtained from the office during business hours (Wednesday through Wednesday, 8:00 a.m. to 2:00 p.m.). Constipation is a frequent side effect of narcotic use. Please see instructions below for ways to help prevent constipation. Opioid medications, such as oxycodone (Percocet), hydrocodone (Vicodin), morphine, Dilaudid and Ultram can help manage pain but may cause side effects. These side effects may include, nausea, vomiting, drowsiness, rash and constipation. USP side effects include risk for developing an addiction to these medications. It is important to follow your prescription instructions closely and let your health care provider know if you are having any concerns. Do not drive while on narcotic pain medication. Bowel Movements Your bowel movements may be irregular for several weeks. If you go for more than a couple of days without having a bowel movement, you may try to relieve the constipation by drinking warm prune juice, eating prunes, apples, apricots, raisins, or bran and water, or by taking an over the counter laxative such at MiraLAX Activity It is common after you first get home to feel very tired. This may last for several weeks. You willneed lots of rest. Check with your doctor if your job entails heavy physical exertion or if you have specific questions regarding when you should return to work You may do normal daily activities as you are able. This includes walking up and down stairs, walking outside the house, travelling as a passenger in a car, etc. Avoid strenuous activities, such as sports or weight lifting until your follow up visit. What to Watch For If any of the following occur in the first two weeks after you get home, call the General Surgery Office at the number listed above. You feel as if you are getting sicker instead of better. Pain becomes much worse than when you left the hospital. The area around your incision develops green/yellow drainage, foul odor, bleeding, warmth, swelling, redness Your temperature goes above 101.4??F (38.5??C). You have vomiting that lasts more than one day. You have severe diarrhea lasting more than three days. Seek Immediate Medical Attention at an Emergency Room for the following: Loss of consciousness Altered mental status/confusion Chest pain/pressure/palpitations Shortness of Breath Severe pain FMLA/Short Term Disability/School Excuse Paperwork If you have paperwork that needs to be completed by your surgical team; please have it faxed to: [facility] of Trauma Surgery [facility] Signed: Rohini Wharton MD General Surgery Resident 07/20/2025 Cosigned by Colby Beck DO at 07/20/2025 1:23 PM ELEC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 documented in this encounter Discharge Instructions * Discharge Instructions* Gale Quiñones, THRESHING MACHINE OPERATOR-PRISON LIBRARIAN - 07/11/2025 7:52 AM ELEC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 Images from the original note were not included. [facility] ACUTE CARE SURGERY PATIENT DISCHARGE INSTRUCTIONS Date of admission: 07/01/2025 Date of discharge: 07/18/25 The name of your operation: Procedure(s): LAPAROTOMY EXPLORATORY, SMALL BOWEL RESECTION, ANASTAMOSIS, WOUND VAC Discharge Diagnosis: Principal Problem: Incarcerated ventral hernia Active Problems: Generalized abdominal pain Necrotizing soft tissue infection Peritonitis (HCC) Acute hypoxic respiratory failure (HCC) Septic shock (HCC) LARISA (acute kidney injury) Chronic atrial fibrillation (HCC) Chronic anticoagulation Diastolic congestive heart failure (HCC) Morbid (severe) obesity due to excess calories (HCC) Obstructive sleep apnea Hypothyroidism Cardiomegaly Admitting Provider: Gregg Swenson DO Discharging Provider: Colby Beck DO Primary surgical team: Acute Care Surgery Service Summary of Specific instructions for SERJIO Ming KIN Diet: Resume your diet as tolerated. You may find you do not have a good appetite after surgery andthat is okay. Try eating frequent small meals instead of 3 large meals. Drink fluids throughout theday. Water is best. Too many sugary drinks may give your diarrhea. Activity: No lifting anything more than 10 pounds for 6+ weeks minimum. You surgeon my give you more specific activity instructions based on your surgery. Your Surgical Wound: Negative Pressure Wound Therapy: -125mmHg continuous, black sponge to base of wound, change q 3 days or PRN Bathing: Bedbaths while wound vac in place. On days that wound vac is changed you may shower. You may shower with your wound uncovered. Let warm soapy water run over and into the wound. Rinse with clean water and pat dry. Nursing can then re apply wound vac. No swimming, hot tubs, baths, or submerging your wound under water until cleared by your surgeon. Followup: You will need to be seen 2 weeks after discharge for your surgical follow up. Check your discharge paperwork for your appointment times. Call your surgeon's office to schedule a follow-up appointmentif one wasn't make for you prior to your discharge. The number is [phone]. Option 1 for General Surgery. Acute Care Surgery Clinic: [facility] Acute Care Surgery Clinic- [address] [place] [address] If you have questions or concerns: 1. Please call the [facility] Surgery office at [phone]. 2. Outside Business Hours Questions or Concerns: Please call [facility] Hospital Staking Engineer at [phone] and have the General Surgery construction operations manager resident paged. Medications: You have been provided a prescription for: Medication List START taking these medications acetylcysteine 20 % solution Commonly known as: Mucomyst Inhale 3 mL by mouth every 4 hours while awake albuterol-ipratropium 0.5-2.5 (3) MG/3ML nebulizer solution Commonly known as: Duo-Neb Inhale 3 mL by mouth every 6 hours atorvastatin 80 MG tablet Commonly known as: Lipitor Take 1 (one) tablet by mouth at bedtime furosemide 40 MG tablet Commonly known as: Lasix Take 1 (one) tablet by mouth 2 times daily levothyroxine 25 MCG tablet Commonly known as: Synthroid Take 1 (one) tablet by mouth once daily pantoprazole EC 40 MG tablet Commonly known as: Protonix Take 1 (one) tablet by mouth once daily polyethylene glycol 3350 17 g packet Commonly known as: Miralax Take 17 (seventeen) g by mouth once daily rivaroxaban 20 MG tablet Commonly known as: Xarelto Take 1 (one) tablet by mouth daily with dinner spironolactone 25 MG tablet Commonly known as: Aldactone Take 0.5 (one-half) tablet by mouth once daily Where to Get Your Medications Information about where to get these medications is not yet available Ask your nurse or doctor about these medications acetylcysteine 20 % solution albuterol-ipratropium 0.5-2.5 (3) MG/3ML nebulizer solution atorvastatin 80 MG tablet furosemide 40 MG tablet levothyroxine 25 MCG tablet pantoprazole EC 40 MG tablet polyethylene glycol 3350 17 g packet rivaroxaban 20 MG tablet spironolactone 25 MG tablet General Your full recovery will take some time. This handout covers some common questions and concerns. Pain Control When you leave the hospital, you should have a prescription for pain medication. Have it filled at a pharmacy near your home if it was not filled prior to discharge by [facility] Outpatient Pharmacy. Some patients experience nausea and/or vomiting from certain narcotics. If you get any of these side effects, call the office at the number listed above or call the [facility] hospital ([phone]) and ask for the Acute Care Surgery Resident construction operations manager. A prescription for a different pain reliever can be called in to your pharmacist. (Please have the number of your pharmacy available). You may also try regularTylenol. Medication refills can be obtained from the office during business hours (Wednesday through Wednesday, 8:00 a.m. to 2:00 p.m.). Constipation is a frequent side effect of narcotic use. Please see instructions below for ways to help prevent constipation. Opioid medications, such as oxycodone (Percocet), hydrocodone (Vicodin), morphine, Dilaudid and Ultram can help manage pain but may cause side effects. These side effects may include, nausea, vomiting, drowsiness, rash and constipation. USP side effects include risk for developing an addiction to these medications. It is important to follow your prescription instructions closely and let your health care provider know if you are having any concerns. Do not drive while on narcotic pain medication. Bowel Movements Your bowel movements may be irregular for several weeks. If you go for more than a couple of days without having a bowel movement, you may try to relieve the constipation by drinking warm prune juice, eating prunes, apples, apricots, raisins, or bran and water, or by taking an over the counter laxative such at MiraLAX Activity It is common after you first get home to feel very tired. This may last for several weeks. You willneed lots of rest. Check with your doctor if your job entails heavy physical exertion or if you have specific questions regarding when you should return to work You may do normal daily activities as you are able. This includes walking up and down stairs, walking outside the house, travelling as a passenger in a car, etc. Avoid strenuous activities, such as sports or weight lifting until your follow up visit. What to Watch For If any of the following occur in the first two weeks after you get home, call the General Surgery Office at the number listed above. You feel as if you are getting sicker instead of better. Pain becomes much worse than when you left the hospital. The area around your incision develops green/yellow drainage, foul odor, bleeding, warmth, swelling, redness Your temperature goes above 101.4??F (38.5??C). You have vomiting that lasts more than one day. You have severe diarrhea lasting more than three days. Seek Immediate Medical Attention at an Emergency Room for the following: Loss of consciousness Altered mental status/confusion Chest pain/pressure/palpitations Shortness of Breath Severe pain FMLA/Short Term Disability/School Excuse Paperwork If you have paperwork that needs to be completed by your surgical team; please have it faxed to: [facility] Division of Trauma Surgery [facility] 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 documented in this encounter Medications at Time of Discharge acetylcysteine (Mucomyst) 20 % solution Inhale 3 mL by mouth every 4 hours while awake 1500 mL 07/20/2025 albuterol-ipratrop ium (Duo-Neb) 0.5-2.5 (3) MG/3ML nebulizer solution Inhale 3 mL by mouth every 6 hours 360 mL 07/20/2025 atorvastatin (Lipitor) 80 MG tablet Take 1 (one) tablet by mouth at bedtime 30 tablet 07/20/2025 furosemide (Lasix) 40 MG tablet Take 1 (one) tablet by mouth 2 times daily 60 tablet 07/20/2025 levothyroxine (Synthroid) 25 MCG tablet Take 1 (one) tablet by mouth once daily 30 tablet 07/20/2025 oxyCODONE, immediate release, (Roxicodone) 5 MG tabletIndications: Acute hypoxic respiratory failure (HCC) Take 1 (one) tablet by mouth every 6 hours as needed 12 tablet 07/20/2025 pantoprazole EC (Protonix) 40 MG tablet Take 1 (one) tablet by mouth once daily 30 tablet 07/20/2025 polyethylene glycol 3350 (Miralax) 17 g packet Take 17 (seventeen) g by mouth once daily 30 packet 07/20/2025 rivaroxaban (Xarelto) 20 MG tablet Take 1 (one) tablet by mouth daily with dinner 30 tablet 07/20/2025 spironolactone (Aldactone) 25 MG tablet Take 0.5 (one-half) tablet by mouth once daily 15 tablet 07/20/2025 documented as of this encounter Progress Notes * Les aGrcia RN - 07/20/2025 2:18 PM CST Report called to nurse Max at [facility]. 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 * Meagan Pedersen LCSW - 07/20/2025 12:12 PM CST KENNETH met with pt at bedside and sister Ashli by phone to discuss concerns with dc plan. KENNETH met with pt on 07/18 to notify no success with top 5 choices. KENNETH discussed additional referrals. KENNETH met with pt on 07/19/25 to notify that only 3 accepting facilities. Pt who was A&Ox4 chose [facility]. Sister Ashli stating facility is not a viable option. SW discussed facility has reviewed patient'sreferral for appropriantess and has been notified of wound vac needs, IV antibiotics, and thererapy. SW offered medicare appeal which patient declined. Pt to dc to [facility] at 1 pm by ems Meagan Pedersen LCSW P:[phone] F:[phone] 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 * Qamar Nguyen - 07/20/2025 11:30 AM CST Patient Discharge Transportation Arrangements: To: [address] [place] [address] Date: 07/20/25 Time: 12:30 PM Ambulance Co:[facility] Trip #: [id number] The Medical Necessity for Non-Emergent Ambulance Transportation form has been completed and is available to print with Facility Transfer paperwork. 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 * Meagan Pedersen LCSW - 07/20/2025 11:03 AM CST Facility Transfer Note Level of Care: Facility Name: (include name of person confirming admission): [facility] Made Aware of Special Needs (if applicable): Lesly[facility] [phone] RN Call Report to:[phone] Fax D/C Orders to:[phone] Transportation (company and number): [facility] Certificate of Medical Necessity rationale: Yes Date/time of transfer: 07/20/2025 12 PM Family/Other Notified of Transfer (name/phone): Pt notified, A&Ox4 Authorization Skilled Care: Authorization for Transportation: Verified Qualifying Stay(Skilled Only): YES Comments: Name/Phone number: Meagan Pedersen LCSW [phone] 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 * Krishan Farr - 07/20/2025 6:45 AM CST The patient has been approved for requested SNF stay. Insurance company portal Auth # [id number]. Auth approved from 07/19/2025 to 07/23/2025 The above information has been relayed to Meagan Pedersen LCSW. No further insurance auth needs at this time. Krishan Farr 07/20/2025 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 * Krishan Farr - 07/19/2025 2:50 PM CST This check writer salesperson received a request from Meagan Pedersen LCSW to initiate authorization for SNF. The patient will be discharging to [facility] once authorization has been obtained. The patient's chart will be updated with authorization number once received. The patient will continued to be followed for their discharge planning needs. Krishan Farr 07/19/2025 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 * Meagan Pedersen LCSW - 07/19/2025 2:36 PM CST Insurance auth requested for [facility]. Meagan Pedersen LCSW P:[phone] F:[phone] 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 * Cherri Sorensen RN - 07/19/2025 2:18 PM CST Care Coordination Progress Note Expected Discharge Date: 07/21/2025 Discharge Plan: Patient continues to have wound care/ wound vac. SNF recommended. Patient has accepting facility. Submitting for insurance authorization for [facility]. SW following. Family Support (Name and Phone): Extended Emergency Contact Information Primary Emergency Contact: Dennis Sanderson Mobile Relation: Son Transportation at Discharge: Family: READMISSION RISK SCORE is 12.3 at 2:18 PM 07/19/2025.: Name: Cherri Sorensen RN 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 * Stewart Palmer - 07/19/2025 11:20 AM CST [facility] Physical Therapy Progress Note Patient: Serjio Sanderson Med Record Number: [id number] Date of : 1960 Age: [age] year old PPE worn by staff: gloves;mask - procedural PPE worn by patient: gown - patient, clean;socks - clean Tech: Malathi Recommendations: Discharge PT Discharge Recommendations: Patient would benefit from multidisciplinary therapy This recommendation is made due to ongoing PT functional needs: address care for self in the home;address functional deficits Patient is being recommended for post acute care, therefore DME recommendations will be made at thenext level of care. SUBJECTIVE: Subjective: Pt agreeable and motivated to participate in therapy PATIENT GOALS / WHAT MATTERS MOST TO THE PATIENT: Patient's Primary Concern: to get out of bed Pain Assessment: Pain Assessment Pain Scale/Observation: 0-10 Pain Rating Score #1: (very minimal) Pain Location : Abdomen Pain Descriptors: Discomfort Non-Pharmacological Intervention: Rest;Reposition PRECAUTIONS: Weight Bearing Status: (no WB restrictions) Activity Level: Up with Assist OBJECTIVE: At start of therapy session, patient found in bed and with no alarm General Appearance: 64 y.o. male found in bed, NAD Vitals: (*Assess the 3 levels of oxygen saturations both for room air and 02 unless rest on room air is 88% or less). Rest BP: 144/67 (89) HR: 70 Sp02 Sp02 98% 94% 3L O2 RA Sitting BP: 155/83 (102) HR: 74 Sp02 86% 97% RA Room Air Post Activity BP: 146/61 (82) HR: 72 Sp02 Sp02 95% 2L O2 Observations: Pt found on 3L O2. Patient able to tolerate room air while at rest. Patient desated to 86% while seated EOB, reporting slight dizziness which resolved in ~1 minute. Patient was able to recover SpO2 with 2L O2 and cuing for purse lip breathing. No SOB throughout session. Patient left on 2L O2 at end of session. Mental Status/Cognition: Orientation Level: (A&Ox4) Cognition: (A&Ox4) Attention Span: Appears intact Memory: Appears intact Following Commands: Follows all commands and directions without difficulty Safety Judgement: Decreased awareness of need for safety Awareness of Errors: Decreased awareness of deficits Mobility: A gait belt and non-slip socks were used for all out of bed activity this date. Bed Mobility: Rolling: Minimal Assistance to Right;Minimum Assistance to Left Supine to Sit: Moderate Assistance (for LE management, Pt able to use bedrails) with HOB in semi-fowlers position Sit to Supine: Maximum Assistance;X 2 (for LE management) Transfers: Sit to Stand: Activity Does Not Occur (did not attempt this date) Stand to Sit: Activity Does Not Occur Bed to Chair: Total Assistance Type of Transfer: Mechanical Lift Transfer Device: Gait belt;Walker-Tato Gait: Weight Bearing Status: (no WB restrictions) Ambulation: Level of Assistance: Activity Does Not Occur (due to poor standing tolerance) Balance: Balance Scales/Tests Used: Sitting: Static/Dynamic;Standing: Static/Dynamic Sitting - Static: Good Sitting - Dynamic: Good -;With One Upper Extremity Support Standing - Static: Poor + Standing - Dynamic: Poor ACTIVITY TOLERANCE: Activity Tolerance: Requires rest breaks TREATMENT/INTERVENTIONS: ROM, strengthening exercises, bed mobility training, transfer training, balance activities, and monitoring of vitals THERAPEUTIC EXERCISES (Seated EOB): Hip Adduction against therapist resistance: x10B Hip Abduction against therapist resistance: 2x10B LAQ: x10B Ankle Dorsiflexion/Plantarflexion: x10B Hip Flexion AAROM with therapist: x5B Glute Squeezes: 3 second hold x10 AM-PAC 6 Clicks Mobility Raw Score:: 10 EDUCATION: While performing PT, Patient was instructed in:functional mobility training, safety awareness/fall precautions , pursed lip breathing techniques, use of adaptive equipment, discharge planning, use of call light Presented to patient who demonstrates Good understanding of instructions given. ASSESSMENT: Patient would benefit from additional Physical Therapy sessions to achieve the following functionalgoals to enhance independence. Short Term Goals: Goal Formation With patient Patient will perform bed mobility with minimal assist x1 (updated 07/18) Patient will transfer sit to/from stand with maximal assist, X 2, and with least restrictive assistive device Patient will transfer bed to/from chair with maximal assist, X 2, and with least restrictive assistive device Senior Living Goal(s): Patient to discharge to appropriate next level of inpatient care. INFORMED CONSENT TO TREATMENT: Plan of care including recommended therapy, goals and frequency, discussed with patient who understands and agrees to proceed. Equipment Issued: none Plan: Patient continues to benefit from skilled therapy services., Continue with goals as established. If patient is discharged from the facility, this note serves as a discharge summary if further physical therapy visits did not occur. Refer to filed flowsheet for further details. Following therapy session, patient left in patient bedside chair , with chair alarm on and positioned under patient's buttocks , with call light within reach, with RNDelilah aware, with therapy cues visible on white board, with fall mats in place, all lines/tubes intact. Cosigned by Malathi Rodriguez, PT at 07/19/2025 3:35 PM ELEC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 * Ana Booth, LAURITA/ZACK - 07/19/2025 10:34 AM CST Images from the original note were not included. BRIEF SYNOPSIS: Nutrition Risk Identified but does not meet malnutrition criteria. Nutrition Plan: Current diet order: Cardiac Standard Continue Kenji BID for wound healing (provides 180 kcal, 5g collagen pro, 17g CHO, 7gm arginine, 7gm glutamine, 300mg VIT C, 9.5mg zinc) Recommendation to Physician: N/A CLINICAL NUTRITION ASSESSMENT: Pt scheduled for reassessment. Pt laying in bed upon entering. Reports good appetite and reports heis drinking Kenji first on lunch and dinner trays. Agreeable to continuing. Discussed wound healingnutrition recommendations again today. Pt asking appropriate questions and RD answered to pts satisfaction. RD to continue to follow per protocol. Med/Surg History and Clinical Diagnoses: Ventral hernia with perforated and incarcerated bowel S/p 07/01/25 exploratory laparotomy with small bowel resection and soft tissue excisional debridement PMHof congestive heart failure with mild reduced EF of 50-55%, COPD, obstructive sleep apnea ( CPAP compliant), atrial fibrillation on Xarelto, prior pulmonary emboli- 2016, and history of multiple prior hernia repairs Height: 182.9 cm (6' 0.01) BMI: Body mass index is 56.53 kg/m??. BMI Range: Morbidly Obese Class 3IBW/lb (Calculated) Male: 178.048 Recent Weights/Methods 08/13/2014 1124 09/10/2014 1101 07/01/2025 1729 07/02/2025 0644 07/03/2025 0340 Weight: 163.3 kg (360 lb) 166.9 kg (368 lb) 179.2 kg (395 lb) 179.2 kg (395 lb) 189.1 kg (416 lb 14.2 oz) Weight Method : -- -- -- Bed scale Bed scale Unintentional weight change: limited wt hx note wt increase likely fluid related. Net -18.3L fluid balance since admit. Current Parenteral order: d/c'd PO INTAKE Current diet order: Cardiac Standard Nutrition recommendation: agree with current nutrition order Food Allergies: No known food allergies Last Percent Meal Eaten (%): 100 % (07/18/251737) 48 hr PO INTAKE Percent Meal Eaten (%) Av % Min: 100 % Max: 100 % Current supplement order: Kenji BID None Pain affecting intake: No Chewing/Swallowing: None GI Concerns: (small bowel resection) Stools: Monitoring Unmeasured Stool Occurrence: 1 (07/18/252026) Stool Appearance : Soft (07/18/252026) Skin/Wound: ex lap- wound vac Estimated Needs: KCAL: 2430 (30 kcal/kg IBW) Protein (g): 121 (1.5 g/kg IBW) Fluid (ml): 1 ml/kcal Needs based on: Kcal/kg- (Comment) (IBW 81kg) Recommended Access Route: PO Labs: Reviewed. Recent Labs Component Name 07/16/2545 07/13/25 0401 07/12/25 0614 07/02/25 2318 07/02/25 1052 07/02/25 0030 07/01/25 1918 NA 139 142 142 - 138 - 138 POTASSIUM 4.0 4.0 4.0 - 3.8 - 5.0* CO2 34* 30* 32* - 22 - 24 BUN 19 17 15 - 47* - 46* CREATININE 0.80 0.86 0.80 - 1.48* - 1.74* GLUCOSE 105* 105* 100* - 143* - 90 CALCIUM 8.7 8.4 8.7 - 8.5 - 8.8 ALT - - 57* - 30 - 39 41 ALKPHOS - - 197* - 97 - 112 115 AST - - 76* - 36* - 43* 44* EGFR >90 >90 >90 - 52* - 43* - = values in this interval not displayed. Recent Labs Component Name 07/16/2545 07/13/251 07/12/2514 PHOS 2.8 3.1 2.8 Recent Labs Component Name 07/16/2545 07/13/25 0401 07/12/25 0614 MAGNESIUM 1.8 2.0 1.9 Recent Labs Component Name 07/16/25 0545 07/14/25 0602 07/13/25 0401 HGB 9.0* 9.1* 9.5* HCT 28.6* 28.7* 32.2* Recent Labs Component Name 07/02/25 0032 HGBA1C 5.4 No data found. MEDICATIONS FOR CURRENT ENCOUNTER: Meds reviewed. SCHEDULED MEDICATIONS: 0.9% NaCl injection 3 mL, Intracatheter, q8h acetylcysteine (Mucomyst) 20 % solution 600 mg, Inhalation, q4h WA albuterol-ipratropium (Duo-Neb) nebulizer solution 3 mL, Inhalation, q6h atorvastatin (Lipitor) tablet 80 mg, Oral, AT BEDTIME furosemide (Lasix) tablet 40 mg, Oral, BID levothyroxine (Synthroid) tablet 25 mcg, Oral, QDAY AT 0600 pantoprazole EC (Protonix) tablet 40 mg, Oral, QDAY polyethylene glycol 3350 (Miralax) packet 17 g, Oral, QDAY rivaroxaban (Xarelto) tablet 20 mg, Oral, QDAY WITH DINNER spironolactone (Aldactone) tablet 12.5 mg, Oral, QDAY CONTINUOUS MEDICATIONS: PRN MEDICATIONS: 0.9% NaCl injection 1-10 mL, Intracatheter, PRN oxyCODONE (immediate release) (Roxicodone) tablet 5 mg, Oral, q6h PRN Edema RLE Edema: Non-pitting (07/18/252022) LLE Edema: Non-pitting (07/18/252022) Nutrition Diagnostic Statement: Increased nutrient needs related to:: increased demands with critical illness as evidenced by:: estimated protein needs .. Nutrition Diagnostic Statement Progress: Nutrition problem continues Nutrition Intervention: Meals and snacks:;Medical Food Supplements:;Nutrition Counseling Education needed: Wound Healing Education Provided: Yes (reinforced) (07/19/25 1000) Monitoring: I/Os, BM, labs, meds, weight, PO intake Evaluation: Nutrition Goal: Total intake will meet estimated nutrient needs Nutrition Goal Timeframe: Throughout stay Nutrition Goal Progress: Continue with current goal Ascom [id number] 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 * Delilah Grace RN - 07/19/2025 10:22 AM CST Problem: Pain/Discomfort Goal: Patient exhibits reduced pain/discomfort as evidenced by pain scores Outcome: Progressing Goal: Patient uses pharmacological and non-pharmacological pain management strategies. Outcome: Progressing Goal: Patient verbalizes acceptable level of pain relief and ability to engage in desired activity. Outcome: Progressing Problem: Restraint Safety Goal: Free from restraint(s) Description: INTERVENTIONS: Outcome: Progressing Goal: Remains free of injury from restraints Description: INTERVENTIONS: Outcome: Progressing Problem: Nutrient: Increased nutrient needs (specify) Goal: Total intake will meet estimated nutrient needs Outcome: Progressing Problem: Fall Risk Goal: Fall risk and fall related injury risk are minimized (interventions related to the fall risk can be found in the flowsheet documentation) Outcome: Progressing Problem: Skin/Tissue Integrity - Adult Goal: Skin integrity remains intact Description: INTERVENTIONS: Outcome: Progressing Goal: Incisions, wounds, or drain sites healing without S/S of infection Description: INFECTIONS: Outcome: Progressing Goal: Oral mucous membranes remain intact Description: INTERVENTIONS: Outcome: Progressing Problem: Neurosensory - Adult Goal: Achieves stable or improved neurological status Description: INTERVENTIONS Outcome: Progressing Goal: Remains free of injury related to seizures activity Description: INTERVENTIONS: Outcome: Progressing Goal: Achieves maximal functionality and self care Description: INTERVENTIONS: Outcome: Progressing Problem: Respiratory - Adult Goal: Achieves optimal ventilation and oxygenation Description: INTERVENTIONS: Outcome: Progressing Problem: Cardiovascular - Adult Goal: Maintains optimal cardiac output and hemodynamic stability Description: INTERVENTIONS: Outcome: Progressing Goal: Absence of cardiac dysrhythmias or at baseline Description: INTERVENTIONS: Outcome: Progressing Problem: Neurovascular Musculoskeletal - Adult Goal: Return mobility to safest level of function Description: INTERVENTIONS: Outcome: Progressing Goal: Maintain proper alignment of affected body part Description: INTERVENTIONS: Outcome: Progressing Goal: Return ADL status to a safe level of function Description: INTERVENTIONS: Outcome: Progressing Goal: Absence or reduction of edema Description: INTERVENTIONS Outcome: Progressing Goal: Maintains or improves tissue perfusion Description: INTERVENTIONS Outcome: Progressing Problem: Gastrointestinal - Adult Goal: Minimal or absence of nausea and vomiting Description: INTERVENTIONS: Outcome: Progressing Goal: Maintains or returns to baseline bowel function Description: INTERVENTIONS: Outcome: Progressing Goal: Maintains adequate nutritional intake Description: INTERVENTIONS: Outcome: Progressing Problem: Genitourinary - Adult Goal: Maintains or returns to baseline genitourinary function Description: INTERVENTIONS: Outcome: Progressing Goal: Urinary catheter remains patent Description: INTERVENTIONS: Outcome: Progressing Problem: Infection - Adult Goal: Infections are decreased or avoided Description: INTERVENTIONS: Outcome: Progressing Problem: Metabolic/Fluid and Electrolytes - Adult Goal: Electrolytes maintained within normal limits Description: INTERVENTIONS: Outcome: Progressing Goal: Hemodynamic stability and optimal renal function maintained Description: INTERVENTIONS: Outcome: Progressing Goal: Glucose maintained within prescribed range Description: INTERVENTIONS: Outcome: Progressing Problem: Hematologic - Adult Goal: Maintains hematologic stability Description: INTERVENTIONS: Outcome: Progressing Problem: Anxiety Goal: Will report anxiety at manageable levels Description: INTERVENTIONS Outcome: Progressing Problem: Coping Goal: Patient/Healthcare Agent able to verbalize concerns and demonstrate effective coping strategies Description: INTERVENTIONS Outcome: Progressing Problem: Decision Making Goal: Patient/Healthcare Agent able to effectively weigh alternatives and participate in decision making related to treatment and care. Description: INTERVENTIONS Outcome: Progressing Problem: Behavior Goal: Pt/Family maintain appropriate behavior and adhere to behavioral management agreement, if implemented Description: INTERVENTIONS Outcome: Progressing Problem: Depression/Self Harm Goal: Effect of psychiatric condition will be minimized and patient will be protected from self harm Description: INTERVENTIONS Outcome: Progressing Problem: Substance Abuse/Detox Goal: Will have no detox symptoms and will verbalize plan for changing drug- related behavior Description: INTERVENTIONS Outcome: Progressing Problem: Balance Goal: LTG - Patient will demonstrate Intervention to enhance balance for safe completion of daily activities Outcome: Progressing 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 * Anne Reyes MD - 07/19/2025 10:07 AM CST Images from the original note were not included. ACUTE CARE SURGERY PROGRESS NOTE Encounter Date: 07/19/2025 Serjio Sanderson Date of : 1960 . Age: [age] year old Room: [facility] Admit Date: 07/01/2025 5:24 PM Hospital Day: Hospital Day: 18 History of Present Illness: Copied forward from H&P Serjio Sanderson is a 64 year old male W Pmhx CHF, COPD, afib, DVT/PE on Xarelto (last taken 06/30), who presented with signs of an incarcerated, strangulated and perforated ventral hernia with overlying skin changes. After long discussion of risks and benefits (see note from Dr. Bermudez on 07/01), kaushik aminadotty was taken to the OR late evening of 07/01 and was found to have 6cm x 6cm ventral hernia withincarcerated bowel with large amount of stool encountered, surrounding soft tissue with component of necrotizing soft tissue infection requiring excisional debridement of [id number], small bowel perforation resected and then left in discontinuity with Abthera placed. Procedures: 07/01- lysis of adhesions, SBR, soft tissue excisional debridement, Abthera placement 07/03- SBR, anastomosis, fascial defect closed, wound vac placement Interval: - HDS, afebrile, on 2L NC, CPAP overnight - Resting comfortably this morning - Tolerating diet, denies nausea/emesis - Wound vac with good seal/suction, 375 mL SS output - Passing flatus, 1x bowel movement yesterday OBJECTIVE Vital signs: Temp: [97.7 ??F (36.5 ??C)-99.1 ??F (37.3 ??C)] Pulse: [55-94] Resp: [18-22] BP: (135-187)/(49-88) O2 %: [40 %] SpO2: [96 %-99 %] Input and Output: Date 07/18/25 0700 - 07/19/25 0659 07/19/25 0700 - 07/20/25 0659 Shift 5058-2935 0773-6132 3878-6754 24 Hour Total 3674-9648 7483-1197 3036-9990 24 Hour Total INTAKE P.O. 600 0 600 Shift Total(mL/kg) 600(3.2) 0(0) 600(3.2) OUTPUT Urine(mL/kg/hr) 500(0.3) 1300(0.9) 200(0.1) 2000(0.4) Drains 325 50 375 Shift Total(mL/kg) 825(4.4) 1350(7.1) 200(1.1) 2375(12.6) NET -214 -353 -200 -3487 Weight (kg) 189.1 189.1 189.1 189.1 189.1 189.1 189.1 189.1 Diet: DIET CARDIAC DIETARY NUTRITION SUPPLEMENTS Physical Examination: Gen: alert, no acute distress HEENT: AT/NC, EOMI CV: RRR Pulm: non labored respirations on NC Abd: Soft, non-tender, wound vac in place with serosanginous output MSK: WWP, 1+ pitting edema bilateral lower extremities Neuro: no focal deficits, moving all extremities Psych: appropriate mood and affect Data Review: LABS: Recent Labs Component Name 07/16/25 0545 07/14/25 0602 07/13/25 0401 WBC 8.2 9.5 9.7 HGB 9.0* 9.1* 9.5* HCT 28.6* 28.7* 32.2* MCV 104.4* 103.6* 108.4* Recent Labs Component Name 07/16/25 0545 07/13/25 0401 07/12/25 0614 CALCIUM 8.7 8.4 8.7 PHOS 2.8 3.1 2.8 Recent Labs Component Name 07/16/25 0545 07/13/25 0401 07/12/25 0614 NA 139 142 142 CL 100 107 105 CO2 34* 30* 32* BUN 19 17 15 CREATININE 0.80 0.86 0.80 Recent Labs Component Name 07/12/25 0614 07/02/25 1052 07/01/25 1918 PROT 6.6 5.1* 6.2 6.5 ALB 2.1* 1.5* 2.1* 2.1* ALKPHOS 197* 97 112 115 AST 76* 36* 43* 44* ALT 57* 30 39 41 TBILI 1.3* 2.2* 1.8* 1.8* DBILI 0.9* 1.6* 1.3* Recent Labs Component Name 07/14/25 0602 07/13/25 0550 07/12/25 0614 PT 33.1* 31.2* 30.7* INR 3.3 3.0 3.0 PTT 29.0 43.1* 45.0* Microbiology: Microbiology Results (Displays last 21 days for this encounter ONLY) Procedure Component Value - Date/Time CULTURE FUNGUS OTHER+FUNGUS SMEAR [[id number]] (Normal) Collected: 07/05/25 1047 Lab Status: Preliminary result Specimen: Microbiology from Lung Washing Updated: 07/16/25726 Culture No fungus isolated Fungus Stain No yeast or hyphae seen No Pneumocystis jirovecii CULTURE BRONCHIAL WASHING+GRAM STAIN [[id number]] Collected: 07/05/25 1046 Lab Status: Final result Specimen: Microbiology from Lung, Left Lower Lobe Updated: 07/07/25 0729 Culture No growth Gram Stain Light Polymorphonuclear cells No organisms seen MRSA PCR [[id number]] (Normal) Collected: 07/02/25 0031 Lab Status: Final result Specimen: Microbiology from Nasal Updated: 07/02/25 0601 MRSA DNA by PCR Not detected Narrative: Methicillin-resistant Staphylococcus aureus (MRSA) DNA is not detected (presumed not colonized withMRSA). CULTURE FLUID+GRAM STAIN [[id number]] (Abnormal) (Susceptibility) Collected: 07/01/25 2350 Lab Status: Final result Specimen: Other from Peritoneal Fluid Updated: 07/10/25 0732 Culture Heavy Escherichia coli Heavy Streptococcus anginosus Rare Naida krusei Comment: Referred to [facility] for susceptibility Referred to [facility] [address] [place] [id number] See separate reference laboratory report Gram Stain Light Polymorphonuclear cells Heavy Gram-positive cocci Heavy Gram-negative bacilli Moderate Gram-positive bacilli Rare Yeast Susceptibility Escherichia coli (1) Antibiotic Interpretation Microscan Method Status Amikacin Susceptible <=2 ug/mL SHAMAR Final Ampicillin Susceptible 4 ug/mL SHAMAR Final Ampicillin-sulbactam Susceptible <=2 ug/mL SHAMAR Final Cefazolin See Comment* <=4 ug/mL SHAMAR Final Cefepime Susceptible <=1 ug/mL SHAMAR Final Ceftriaxone Susceptible <=1 ug/mL SHAMAR Final Ciprofloxacin Susceptible <=0.25 ug/mL SHAMAR Final Gentamicin Susceptible <=1 ug/mL SHAMAR Final Meropenem Susceptible <=0.25 ug/mL SHAMAR Final Piperacillin-tazobactam Susceptible <=4 ug/mL SHAMAR Final Tobramycin Susceptible <=1 ug/mL SHAMAR Final Trimethoprim-sulfamethoxazole Susceptible <=20 ug/mL SHAMAR Final Susceptibility Comments *Cefazolin SHAMAR of </=4 cannot distinguish between susceptible or intermediate for systemic breakpoints. If further defined interpretation is needed, call Microbiology and a disk diffusion test will be performed. Streptococcus anginosus (2) Antibiotic Interpretation Microscan Method Status Ampicillin Susceptible <=0.25 ug/mL SHAMAR Final Cefotaxime Susceptible <=0.12 ug/mL SHAMAR Final Ceftriaxone Susceptible 0.25 ug/mL SHAMAR Final Clindamycin Susceptible <=0.25 ug/mL SHAMAR Final Levofloxacin Susceptible <=0.25 ug/mL SHAMAR Final Penicillin G Susceptible <=0.06 ug/mL SHAMAR Final Tetracycline Susceptible 0.5 ug/mL SHAMAR Final Vancomycin Susceptible 0.5 ug/mL SHAMAR Final CULTURE ANAEROBE [[id number]] (Abnormal) Collected: 07/01/252349 Lab Status: Final result Specimen: Microbiology from Peritoneal Fluid Updated: 07/08/25 1013 Culture Moderate Phocaeicola (formerly Bacteroides) vulgatus Comment: Beta-lactamase positive Moderate Prevotella denticola Comment: Beta-lactamase negative Moderate Clostridium paraputrificum Comment: Beta-lactamase negative Moderate Finegoldia magna Narrative: Caution: The absence of beta-lactamase does not mean that the organism is susceptible to beta-lactams. Isolates may still be resistant to beta-lactams by a mechanism other than beta-lactamase production. CULTURE FUNGUS OTHER+FUNGUS SMEAR [[id number]] (Abnormal) Collected: 07/01/252349 Lab Status: Preliminary result Specimen: Microbiology from Peritoneal Fluid Updated: 07/16/25 1209 Culture No fungus isolated Fungus Stain Rare Yeast budding SUSCEPTIBILITY FUNGUS/YEAST [[id number]] Collected: 07/01/252349 Lab Status: Final result Specimen: Other from Peritoneal Fluid Updated: 07/09/25 1824 Prelim Report SEE NOTE Comment: Specimen received and in progress. INTERPRETIVE INFORMATION: Susceptibility, Fungal (Yeasts and Molds) Units = ug/mL YSTMIC Amphotericin B 1 None Rezafungin 0.016 Suscept Anidulafungin 0.03 Suscept Micafungin 0.12 Suscept Voriconazole 0.25 Suscept Isavuconazole 0.25 None Posaconazole 0.25 None Itraconazole 0.25 None Fluconazole Resist Caspofungin 0.25 Suscept Performed By: [facility] [address] [place] [address] Regulatory Product Manager: Chava Osborne MD, PhD CLIA Number: [id number] Final Report SEE NOTE Comment: Pichia kudriavzevii (Previously Naida krusei) Organism identified by client INTERPRETIVE INFORMATION: Susceptibility, Fungal (Yeasts and Molds) Units = ug/mL YSTMIC Amphotericin B 1 None Rezafungin 0.016 Suscept Anidulafungin 0.03 Suscept Micafungin 0.12 Suscept Voriconazole 0.25 Suscept Isavuconazole 0.25 None Posaconazole 0.25 None Itraconazole 0.25 None Fluconazole Resist Caspofungin 0.25 Suscept Performed By: [facility] [address] [place] [address] Regulatory Product Manager: Chava Osborne MD, PhD CLIA Number: [id number] Narrative: SHAMAR=Minimum Inhibitory Concentration MEC=Minimum Effective Concentration SHAMAR=Minimum Inhibitory Concentration MEC=Minimum Effective Concentration SHAMAR=Minimum Inhibitory Concentration MEC=Minimum Effective Concentration SHAMAR=Minimum Inhibitory Concentration MEC=Minimum Effective Concentration SHAMAR=Minimum Inhibitory Concentration MEC=Minimum Effective Concentration SHAMAR=Minimum Inhibitory Concentration MEC=Minimum Effective Concentration Radiology Impressions: CT Chest Wo Contrast Result Date: 07/04/2025 IMPRESSION: Atelectasis of the lower lobe of the left lung and dependent upper lobe associated withthe decrease volume of the left hemithorax and leftward shift of the heart and mediastinum. Mild dependent atelectasis in the right lung base. Partially imaged upper abdomen shows ventral hernia. > Interpreting Provider: Tray Jarvis MD on 07/04/2025 9:55 AM Medications: -Infusions: Medications[1] -Scheduled Medications: Medications[2] -PRN Medications: Medications[3] Problem List: Incarcerated ventral hernia (POA: Yes) Generalized abdominal pain (POA: Yes) Necrotizing soft tissue infection (POA: No) Peritonitis (HCC) (POA: Yes) Acute hypoxic respiratory failure (HCC) (POA: No) Septic shock (HCC) (POA: Yes) LARISA (acute kidney injury) (POA: Yes) Chronic atrial fibrillation (HCC) (POA: Yes) Chronic anticoagulation (POA: Yes) Diastolic congestive heart failure (HCC) (POA: Yes) Morbid (severe) obesity due to excess calories (HCC) (POA: Yes) Obstructive sleep apnea (POA: Yes) Hypothyroidism (POA: Yes) Cardiomegaly (POA: Yes) Assessment and Plan: Serjio Sanderson is a 64 year old male with PMH of CHF, YEN, A fib on Xarelto (last dose 06/30), three pulmonary embolisms (last in 2011), non specific thyroid condition. Presented with two day history of abdominal pain, with overlying skin ischemia, and CT from OSH with complicated abdominal hernia with fluid collection and soft tissue gas. Now s/p exploratory laparotomy, lysis of adhesions, small bowel resection, skin debridement and Abthera placement. Take back on hospital day 2, patient underwent reanastomosis, fascial closure, debridement of abdominal wall, and wound vac placement. Post operatively remained intubated and sedated on low dose levo, on clinda, micafugin, zosyn, vanc. S/p take back from reanastomosis, fascial closure, debridement of abdominal wall, and wound vac placement. Patient extubated on 07/05. Wound vac changed on 07/06 with healthy appearing granulation tissue. Tolerating regular diet, demonstrated return of bowel function. Patient medically ready for discharge, pending placement at SNF. SNF referrals sent, pending acceptance. Continue wound vac changes pernursing. Neuro: #Post- operative pain - scheduled tylenol - added PRN oxy 01/06 CV: #presumed sepsis #CHF most recently EF 50-55% #afib on xarelto, hx of multiple pulmonary embolisms, sp kaycentra - CHADSVASC score of 4 - continue Xarelto - Vitals q4h Resp: - extubated 07/05 - on NC, CPAP overnight (baseline) - bronchial hygiene - IS qhr while awake FEN/GI: #incarcerated hernia s/p SURESH, SBR now 16 Days Post-Op reanastomsosis, fascial closure, wound vac placement - Diet: regular - Weekly BMP, Mg, Phos - Strict I&Os TID - bowel reg: miralax Endo: - 25 mcg levothyroxine #hyperglycemic overnight, not on insulin at home, A1C 5.4% - SSI and POCT glucose Renal/: - [place] removed 07/06, voiding spontaneously - Cr 0.80 - strict I/O Heme/ID: - Hgb 9.0 - Transfuse if Hgb < 7 - Weekly CBC - zosyn, clinda, micafungin, deescalated to unasyn, abx completed after 10 day course #history of multiple DVTs/Pe's, 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, was on xarelto 15 mg on admission - restarted xarelto at appropriate dose (20 mg) given normal kidney function Msk: - PT/OT - encourage OOB and ambulation Wound care: - wound vac to -125 on abdominal wound - Wound vac changes per nursing, T/F PPX: SCDs, xarelto, protonix Disposition: medically ready for discharge pending placement Anne Reyes MD General Surgery, PGY-1 07/19/25 10:07 AM [1] [2] 0.9% NaCl 3 mL Intracatheter q8h acetylcysteine 3 mL Inhalation q4h WA albuterol-ipratropium 3 mL Inhalation q6h atorvastatin 80 mg Oral AT BEDTIME furosemide 40 mg Oral BID levothyroxine 25 mcg Oral QDAY AT 0600 pantoprazole EC 40 mg Oral QDAY polyethylene glycol 3350 17 g Oral QDAY rivaroxaban 20 mg Oral QDAY WITH DINNER spironolactone 12.5 mg Oral QDAY [3] SALINE LOCK, INSERT AND MAINTAIN AND 0.9% NaCl AND 0.9% NaCl oxyCODONE (immediate release) OR [DISCONTINUED] oxyCODONE (immediate release) Cosigned by Colby Beck DO at 07/19/2025 4:09 PM ELEC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 Associated attestation - Colby Beck DO - 07/19/2025 4:09 PM ELEC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 I saw and evaluated the patient on the date of service. I discussed the plan of care with the resident. I reviewed all relevant labs and radiology myself. Agree with note, except as otherwise documented here. Colby Beck DO 07/19/2025 4:09 PM Trauma/Acute Care Attending * Farnaz Gayle RN - 07/18/2025 6:56 PM CST Problem: Pain/Discomfort Goal: Patient exhibits reduced pain/discomfort as evidenced by pain scores Outcome: Progressing Goal: Patient uses pharmacological and non-pharmacological pain management strategies. Outcome: Progressing Goal: Patient verbalizes acceptable level of pain relief and ability to engage in desired activity. Outcome: Progressing Problem: Skin/Tissue Integrity - Adult Goal: Skin integrity remains intact Description: INTERVENTIONS: Outcome: Progressing Goal: Incisions, wounds, or drain sites healing without S/S of infection Description: INFECTIONS: Outcome: Progressing Goal: Oral mucous membranes remain intact Description: INTERVENTIONS: Outcome: Progressing Problem: Restraint Safety Goal: Free from restraint(s) Description: INTERVENTIONS: Outcome: Progressing Goal: Remains free of injury from restraints Description: INTERVENTIONS: Outcome: Progressing Problem: Nutrient: Increased nutrient needs (specify) Goal: Total intake will meet estimated nutrient needs Outcome: Progressing Problem: Fall Risk Goal: Fall risk and fall related injury risk are minimized (interventions related to the fall risk can be found in the flowsheet documentation) Outcome: Progressing Problem: Neurosensory - Adult Goal: Achieves stable or improved neurological status Description: INTERVENTIONS Outcome: Progressing Goal: Remains free of injury related to seizures activity Description: INTERVENTIONS: Outcome: Progressing Goal: Achieves maximal functionality and self care Description: INTERVENTIONS: Outcome: Progressing Problem: Respiratory - Adult Goal: Achieves optimal ventilation and oxygenation Description: INTERVENTIONS: Outcome: Progressing Problem: Cardiovascular - Adult Goal: Maintains optimal cardiac output and hemodynamic stability Description: INTERVENTIONS: Outcome: Progressing Goal: Absence of cardiac dysrhythmias or at baseline Description: INTERVENTIONS: Outcome: Progressing Problem: Neurovascular Musculoskeletal - Adult Goal: Return mobility to safest level of function Description: INTERVENTIONS: Outcome: Progressing Goal: Maintain proper alignment of affected body part Description: INTERVENTIONS: Outcome: Progressing Goal: Return ADL status to a safe level of function Description: INTERVENTIONS: Outcome: Progressing Goal: Absence or reduction of edema Description: INTERVENTIONS Outcome: Progressing Goal: Maintains or improves tissue perfusion Description: INTERVENTIONS Outcome: Progressing Problem: Gastrointestinal - Adult Goal: Minimal or absence of nausea and vomiting Description: INTERVENTIONS: Outcome: Progressing Goal: Maintains or returns to baseline bowel function Description: INTERVENTIONS: Outcome: Progressing Goal: Maintains adequate nutritional intake Description: INTERVENTIONS: Outcome: Progressing Problem: Genitourinary - Adult Goal: Maintains or returns to baseline genitourinary function Description: INTERVENTIONS: Outcome: Progressing Goal: Urinary catheter remains patent Description: INTERVENTIONS: Outcome: Progressing Problem: Infection - Adult Goal: Infections are decreased or avoided Description: INTERVENTIONS: Outcome: Progressing Problem: Metabolic/Fluid and Electrolytes - Adult Goal: Electrolytes maintained within normal limits Description: INTERVENTIONS: Outcome: Progressing Goal: Hemodynamic stability and optimal renal function maintained Description: INTERVENTIONS: Outcome: Progressing Goal: Glucose maintained within prescribed range Description: INTERVENTIONS: Outcome: Progressing Problem: Hematologic - Adult Goal: Maintains hematologic stability Description: INTERVENTIONS: Outcome: Progressing Problem: Anxiety Goal: Will report anxiety at manageable levels Description: INTERVENTIONS Outcome: Progressing Problem: Coping Goal: Patient/Healthcare Agent able to verbalize concerns and demonstrate effective coping strategies Description: INTERVENTIONS Outcome: Progressing Problem: Decision Making Goal: Patient/Healthcare Agent able to effectively weigh alternatives and participate in decision making related to treatment and care. Description: INTERVENTIONS Outcome: Progressing Problem: Behavior Goal: Pt/Family maintain appropriate behavior and adhere to behavioral management agreement, if implemented Description: INTERVENTIONS Outcome: Progressing Problem: Depression/Self Harm Goal: Effect of psychiatric condition will be minimized and patient will be protected from self harm Description: INTERVENTIONS Outcome: Progressing Problem: Substance Abuse/Detox Goal: Will have no detox symptoms and will verbalize plan for changing drug- related behavior Description: INTERVENTIONS Outcome: Progressing Problem: Balance Goal: LTG - Patient will demonstrate Intervention to enhance balance for safe completion of daily activities Outcome: Progressing 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 * Stewart Palmer - 07/18/2025 4:03 PM CST [facility] Physical Therapy Progress Note Patient: Serjio Sanderson Med Record Number: [id number] Date of : 1960 Age: [age] year old PPE worn by staff: gloves;mask - procedural PPE worn by patient: gown - patient, clean;socks - clean Tech: Malathi Recommendations: Discharge PT Discharge Recommendations: Patient would benefit from multidisciplinary therapy This recommendation is made due to ongoing PT functional needs: address care for self in the home;address functional deficits Patient is being recommended for post acute care, therefore DME recommendations will be made at thenext level of care. SUBJECTIVE: Subjective: Pt agreeable to work with therapy. Patient motivated to attempt standing PATIENT GOALS / WHAT MATTERS MOST TO THE PATIENT: Patient's Primary Concern: to move better Pain Assessment: Pain Assessment Pain Scale/Observation: 0-10 Pain Rating Score #1: (just discomfort, did not provide rating) Pain Location : Abdomen Pain Descriptors: Discomfort Non-Pharmacological Intervention: Rest;Reposition PRECAUTIONS: Weight Bearing Status: (no WB restrictions) Activity Level: Up with Assist OBJECTIVE: At start of therapy session, patient found in bed and with bed alarm on General Appearance: 64 yo male found semi-reclined in bed, NAD Vitals: (*Assess the 3 levels of oxygen saturations both for room air and 02 unless rest on room air is 88% or less). Rest BP: 146/74 (94) HR: 82 Sp02 Sp02 100% 98% 3L O2 Room Air Sitting EOB BP: 150/55 (84) HR: 98 Sp02 94% Room Air Upon Return to Supine, with Boosting BP: HR: 144 Sp02 90% 92% Room Air but increased WOB 2 L O2 Post Activity BP: 123/89 (95) HR: 84 Sp02 Sp02 92% 2L O2 Observations: Patient found on 3L O2. Patient able to maintain SpO2 >88% on room air at rest andwith mobility. Patient reported mild dizziness upon initially sitting EOB, which decreased with rest. Patient reported mild SOB after mobility and requested being placed on O2, RN notified. Mental Status/Cognition: Orientation Level: (A&Ox4) Cognition: (A&Ox4) Attention Span: Appears intact Memory: Appears intact Following Commands: Follows one step commands consistently Safety Judgement: Decreased awareness of need for safety Awareness of Errors: Decreased awareness of deficits Mobility: A gait belt and non-slip socks were used for all out of bed activity this date. Bed Mobility: Rolling: Minimal Assistance to Right;Minimum Assistance to Left Supine to Sit: Moderate Assistance (to left side of bed. Moderate Assist x1 to assist LE (primarilyRLE) and truncal control during last 50% to sit up) with HOB in semi-fowlers position Sit to Supine: Maximum Assistance;X 2 Transfers: Sit to Stand: Maximum Assistance;X 2 (Maximal assist x2 and using right tato- walker on 2 standing trials. Patient able to clear buttock from bed on first standing trial.) Stand to Sit: Maximum Assistance;X 2 Transfer Device: Gait belt;Walker-Tato Gait: Weight Bearing Status: (no WB restrictions) Ambulation: Level of Assistance: Activity Does Not Occur (due to poor standing tolerance) Balance: Balance Scales/Tests Used: Sitting: Static/Dynamic;Standing: Static/Dynamic Sitting - Static: Good - Sitting - Dynamic: Fair +;With One Upper Extremity Support Standing - Static: Poor +;With One Upper Extremity Support Standing - Dynamic: Poor ACTIVITY TOLERANCE: Activity Tolerance: Requires rest breaks TREATMENT/INTERVENTIONS: bed mobility training, transfer training, balance activities, and monitoring of vitals AM-PAC 6 Clicks Mobility Raw Score:: 10 EDUCATION: While performing PT, Patient was instructed in:functional mobility training, safety awareness/fall precautions , use of adaptive equipment, discharge planning, use of call light Presented to patient who demonstrates Good understanding of instructions given. ASSESSMENT: Patient would benefit from additional Physical Therapy sessions to achieve the following functionalgoals to enhance independence. Short Term Goals: Goal Formation With patient Patient will perform bed mobility with minimal assist x1 (updated 07/18) Patient will transfer sit to/from stand with maximal assist, X 2, and with least restrictive assistive device Patient will transfer bed to/from chair with maximal assist, X 2, and with least restrictive assistive device Harp Repairer Goal(s): Patient to discharge to appropriate next level of inpatient care. INFORMED CONSENT TO TREATMENT: Plan of care including recommended therapy, goals and frequency, discussed with patient who understands and agrees to proceed. Equipment Issued: none Plan: Patient continues to benefit from skilled therapy services., Continue with goals as established. If patient is discharged from the facility, this note serves as a discharge summary if further physical therapy visits did not occur. Refer to filed flowsheet for further details. Following therapy session, patient left in bed, with bed alarm on , with call light within reach, with RNFarnaz aware, with therapy cues visible on white board, with fall mats in place, all lines/tubes intact. Cosigned by Malathi Rodriguez PT at 07/18/2025 5:04 PM ELEC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 * Meagan Pedersen LCSW - 07/18/2025 3:44 PM CST Facility Placement Progress Note Special Needs: Bariatric, wound vac Patient Goal (short term and termite treater): SNF Actual Level of Care/Dispostion Details Referrals initiated: Continued Care and Services - Admitted Since 07/01/2025 Destination Service Provider Request Status Services Address Referrals Phone Referrals Fax Patient Preferred [facility] Group Home Pending - Request Sent Primary: Group Home [address] [place] [address] -- Internal Comment last updated by Meagan Pedersen LCSW 07/16/2025 1533 11/17 L/M for admissions to f/u on referral [facility] Group Home Pending - Request Sent Primary: Group Home [address] [place] [address] [phone] -- Internal Comment last updated by Meagan Pedersen LCSW 07/18/2025 1536 11/17 L/M for admissions to f/u on referral 07/18 Referral not reviewed, admissions to review and f/u. [facility] Group Home Pending - Request Sent Primary: Group Home [address] [facility] [id number] -- Internal Comment last updated by Meagan Pedersen LCSW 07/18/2025 1541 07/16 L/M for admissions to f/u on referral 07/18 L/M for admissions to f/u on referral [facility] ([facility] Group Home Pending - Request Sent Primary: Group Home [address] [facility] [id number] -- Current Availability last updated by Michelle Jaramillo on 03/08/2025 1151 All 120 beds are dual certified for Medicare and Medicaid. We take both short- term and long-term patients. [facility] Harp Repairer Acute Care Declined No payer/insurance Primary: [facility] [address] [facility] [address] [phone] -- [facility] Senior Living Acute Care Declined No payer/insurance Primary: [facility] Acute [facility] [address] [facility] [address] [phone] -- [facility] Group Home Declined Facility cannot provide for patient's needs Primary: Group Home [address] [facility] [address] [phone] -- [facility] Group Home Declined Bed not available Primary: Group Home [phone] [address] [phone] -- Internal Comment last updated by Meagan Pedersen LCSW 07/18/2025 1536 07/16 L/M for admissions to f/u on referral If Medicare-3 day qualifying stay verified: Yes monitoring facility responses Comments: Please see above for placement updates. SW updated pt's dtr on barriers to SNF placement and requested additional SNF options. Name: Meagan Pedersen LCSW Phone: [phone] 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 * Elsa Miller COTA - 07/18/2025 3:00 PM CST [facility] Occupational Therapy Progress Note Patient: Serjio Sanderson Med Record Number: [id number] Date of : 1960 Age: [age] year old PPE worn by staff: gloves PPE worn by patient: gown - patient, clean;socks - clean Tech: Cable Respooler Maral assisted Recommendations: Discharge OT Discharge Recommendations: Patient would benefit from multidisciplinary therapy This recommendation is made due to ongoing OT functional needs: address functional deficits Activity Level: as tolerated PRECAUTIONS: Weight Bearing Status: (No restrictions noted) SUBJECTIVE: Subjective: Patient agreeable, states I need the bedpan PATIENT GOALS / WHAT MATTERS MOST TO THE PATIENT: Patient's Primary Concern: none stated Pain Assessment: Pain Assessment Pain Scale/Observation: No/denies pain OBJECTIVE: At start of therapy session, patient found in bed and with bed alarm on General Appearance: pt in NAD Vitals: (*Assess the 3 levels of oxygen saturations both for room air and 02 unless rest on room air is 88% or less). Rest Sp02 98% on 3 L via NC Post Activity Sp02 97% on 3 L via NC Observations: pt denied SOB during session Mental Status/Cognition: Level of Consciousness-Adult: (Awake) Orientation Level: (A&Ox4) Cognition: (Appears intact) Attention Span: Appears intact Memory: Appears intact Following Commands: Follows one step commands consistently Safety Judgement: Decreased awareness of need for safety Awareness of Errors: Decreased awareness of deficits Problem Solving: Assistance required to generate solutions Mobility: a gait belt and non-slip socks were used for all out of bed activity this date. Bed Mobility: Rolling: Moderate Assistance to Right;Moderate Assistance to Left (x2 with cues) with HOB flat Comment: Patient required short break between rolling Left/Right during hygiene and changing bed pads portion of bed mobility. Activities of Daily Living: Oral Facial Hygiene: Stand By Assist (with facial care) Toileting: Total Assistance (with on/off bedpan and with hygiene s/p BM) AM-PAC 6 Clicks Daily Activity Raw Score:: 12 TREATMENT/INTERVENTIONS: ADL training Bed mobility Safety awareness EDUCATION: While performing OT, Patient was instructed in:self-care training, safety awareness/fallprecautions , pursed lip breathing techniques, use of call light Presented to patient who demonstrates Good understanding of instructions given. INFORMED CONSENT TO TREATMENT: Plan of care including recommended therapy, goals and frequency, discussed with patient who understands and agrees to proceed. ASSESSMENT: Patient continues to benefit from skilled Occupational Therapy to achieve the following functional goals. Short Term Goals: Goal Formation With patient Patient will perform grooming at edge of bed and with stand by assist Patient will perform upper extremity dressing with minimal assist Patient will perform supine to/from sit with maximal assist Patient will transfer sit to stand with maximal assist Senior Living Goal(s): Patient to discharge to appropriate next level of inpatient care Plan: Patient continues to benefit from skilled therapy services., Continue with goals as established. If patient is discharged from the facility, this note serves as a discharge summary if further occupational therapy visits did not occur. Refer to filed flowsheet for further details. Following therapy session, patient left in bed, with bed alarm on , with call light within reach, with RNFarnaz aware, with therapy cues visible on white board, with fall mats in place, all lines/tubes intact. 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 * Anne Reyes MD - 07/18/2025 10:13 AM CST Images from the original note were not included. ACUTE CARE SURGERY PROGRESS NOTE Encounter Date: 07/18/2025 Serjio Sanderson Date of : 1960 . Age: [age] year old Room: [facility] Admit Date: 07/01/2025 5:24 PM Hospital Day: Hospital Day: 17 History of Present Illness: Copied forward from H&P Serjio Ming Sanderson is a 64 year old male W Pmhx CHF, COPD, afib, DVT/PE on Xarelto (last taken 06/30), who presented with signs of an incarcerated, strangulated and perforated ventral hernia with overlying skin changes. After long discussion of risks and benefits (see note from Dr. Bermudez on 07/01), kaushik joyce was taken to the OR late evening of 07/01 and was found to have 6cm x 6cm ventral hernia withincarcerated bowel with large amount of stool encountered, surrounding soft tissue with component of necrotizing soft tissue infection requiring excisional debridement of [id number], small bowel perforation resected and then left in discontinuity with Abthera placed. Procedures: 07/01- lysis of adhesions, SBR, soft tissue excisional debridement, Abthera placement 07/03- SBR, anastomosis, fascial defect closed, wound vac placement Interval: - HDS, afebrile, on 2L NC, CPAP overnight - Resting comfortably this morning - Tolerating diet, denies nausea/emesis - Wound vac with good seal/suction, 150 mL SS output - Passing flatus OBJECTIVE Vital signs: Temp: [96.7 ??F (35.9 ??C)-98.5 ??F (36.9 ??C)] Pulse: [48-116] Resp: [18-26] BP: (125-157)/(64-89) O2 %: [40 %] SpO2: [90 %-100 %] Input and Output: Date 07/17/25699 - 07/18/2565807/18/25699 - 07/19/25 0659 Shift 5808-7632 8023-6435 4451-6096 24 Hour Total 7557-1639 5277-7681 3200-2531 24 Hour Total INTAKE P.O. 200 630 684 4159 Shift Total(mL/kg) 200(1.1) 760(4) 200(1.1) 1160(6.1) OUTPUT Urine(mL/kg/hr) 900(0.6) 1000(0.7) 600(0.4) 2500(0.6) Drains 75 75 Shift Total(mL/kg) 975(5.2) 1000(5.3) 600(3.2) 2575(13.6) [facility]723 -077 -020 -2385 Weight (kg) 189.1 189.1 189.1 189.1 189.1 189.1 189.1 189.1 Diet: DIET CARDIAC DIETARY NUTRITION SUPPLEMENTS Physical Examination: Gen: alert, no acute distress HEENT: AT/NC, EOMI CV: RRR Pulm: non labored respirations on NC Abd: Soft, non-tender, wound vac in place with serosanginous output MSK: WWP, 1+ pitting edema bilateral lower extremities Neuro: no focal deficits, moving all extremities Psych: appropriate mood and affect Data Review: LABS: Recent Labs Component Name 07/16/25 0545 07/14/25 0602 07/13/25 0401 WBC 8.2 9.5 9.7 HGB 9.0* 9.1* 9.5* HCT 28.6* 28.7* 32.2* MCV 104.4* 103.6* 108.4* Recent Labs Component Name 07/16/25 0545 07/13/25 0401 07/12/25 0614 CALCIUM 8.7 8.4 8.7 PHOS 2.8 3.1 2.8 Recent Labs Component Name 07/16/25 0545 07/13/25 0401 07/12/25 0614 NA 139 142 142 CL 100 107 105 CO2 34* 30* 32* BUN 19 17 15 CREATININE 0.80 0.86 0.80 Recent Labs Component Name 07/12/25 0614 07/02/25 1052 07/01/25 1918 PROT 6.6 5.1* 6.2 6.5 ALB 2.1* 1.5* 2.1* 2.1* ALKPHOS 197* 97 112 115 AST 76* 36* 43* 44* ALT 57* 30 39 41 TBILI 1.3* 2.2* 1.8* 1.8* DBILI 0.9* 1.6* 1.3* Recent Labs Component Name 07/14/25 0602 07/13/25 0550 07/12/25 0614 PT 33.1* 31.2* 30.7* INR 3.3 3.0 3.0 PTT 29.0 43.1* 45.0* Microbiology: Microbiology Results (Displays last 21 days for this encounter ONLY) Procedure Component Value - Date/Time CULTURE FUNGUS OTHER+FUNGUS SMEAR [[id number]] (Normal) Collected: 07/05/25 1047 Lab Status: Preliminary result Specimen: Microbiology from Lung Washing Updated: 07/16/25 0727 Culture No fungus isolated Fungus Stain No yeast or hyphae seen No Pneumocystis jirovecii CULTURE BRONCHIAL WASHING+GRAM STAIN [[id number]] Collected: 07/05/25 1046 Lab Status: Final result Specimen: Microbiology from Lung, Left Lower Lobe Updated: 07/07/25 0729 Culture No growth Gram Stain Light Polymorphonuclear cells No organisms seen MRSA PCR [[id number]] (Normal) Collected: 07/02/25 0031 Lab Status: Final result Specimen: Microbiology from Nasal Updated: 07/02/25 0601 MRSA DNA by PCR Not detected Narrative: Methicillin-resistant Staphylococcus aureus (MRSA) DNA is not detected (presumed not colonized withMRSA). CULTURE FLUID+GRAM STAIN [[id number]] (Abnormal) (Susceptibility) Collected: 07/01/25 2350 Lab Status: Final result Specimen: Other from Peritoneal Fluid Updated: 07/10/25 0732 Culture Heavy Escherichia coli Heavy Streptococcus anginosus Rare Naida krusei Comment: Referred to [facility] for susceptibility Referred to [facility] [address] [place] [id number] See separate reference laboratory report Gram Stain Light Polymorphonuclear cells Heavy Gram-positive cocci Heavy Gram-negative bacilli Moderate Gram-positive bacilli Rare Yeast Susceptibility Escherichia coli (1) Antibiotic Interpretation Microscan Method Status Amikacin Susceptible <=2 ug/mL SHAMAR Final Ampicillin Susceptible 4 ug/mL SHAMAR Final Ampicillin-sulbactam Susceptible <=2 ug/mL SHAMAR Final Cefazolin See Comment* <=4 ug/mL SHAMAR Final Cefepime Susceptible <=1 ug/mL SHAMAR Final Ceftriaxone Susceptible <=1 ug/mL SHAMAR Final Ciprofloxacin Susceptible <=0.25 ug/mL SHAMAR Final Gentamicin Susceptible <=1 ug/mL SHAMAR Final Meropenem Susceptible <=0.25 ug/mL SHAMAR Final Piperacillin-tazobactam Susceptible <=4 ug/mL SHAMAR Final Tobramycin Susceptible <=1 ug/mL SHAMAR Final Trimethoprim-sulfamethoxazole Susceptible <=20 ug/mL SHAMAR Final Susceptibility Comments *Cefazolin SHAMAR of </=4 cannot distinguish between susceptible or intermediate for systemic breakpoints. If further defined interpretation is needed, call Microbiology and a disk diffusion test will be performed. Streptococcus anginosus (2) Antibiotic Interpretation Microscan Method Status Ampicillin Susceptible <=0.25 ug/mL SHAMAR Final Cefotaxime Susceptible <=0.12 ug/mL SHAMAR Final Ceftriaxone Susceptible 0.25 ug/mL SHAMAR Final Clindamycin Susceptible <=0.25 ug/mL SHAMAR Final Levofloxacin Susceptible <=0.25 ug/mL SHAMAR Final Penicillin G Susceptible <=0.06 ug/mL SHAMAR Final Tetracycline Susceptible 0.5 ug/mL SHAMAR Final Vancomycin Susceptible 0.5 ug/mL SHAMAR Final CULTURE ANAEROBE [[id number]] (Abnormal) Collected: 07/01/252349 Lab Status: Final result Specimen: Microbiology from Peritoneal Fluid Updated: 07/08/25 1013 Culture Moderate Phocaeicola (formerly Bacteroides) vulgatus Comment: Beta-lactamase positive Moderate Prevotella denticola Comment: Beta-lactamase negative Moderate Clostridium paraputrificum Comment: Beta-lactamase negative Moderate Finegoldia magna Narrative: Caution: The absence of beta-lactamase does not mean that the organism is susceptible to beta-lactams. Isolates may still be resistant to beta-lactams by a mechanism other than beta-lactamase production. CULTURE FUNGUS OTHER+FUNGUS SMEAR [[id number]] (Abnormal) Collected: 07/01/252349 Lab Status: Preliminary result Specimen: Microbiology from Peritoneal Fluid Updated: 07/16/25 1209 Culture No fungus isolated Fungus Stain Rare Yeast budding SUSCEPTIBILITY FUNGUS/YEAST [[id number]] Collected: 07/01/252349 Lab Status: Final result Specimen: Other from Peritoneal Fluid Updated: 07/09/25 1824 Prelim Report SEE NOTE Comment: Specimen received and in progress. INTERPRETIVE INFORMATION: Susceptibility, Fungal (Yeasts and Molds) Units = ug/mL YSTMIC Amphotericin B 1 None Rezafungin 0.016 Suscept Anidulafungin 0.03 Suscept Micafungin 0.12 Suscept Voriconazole 0.25 Suscept Isavuconazole 0.25 None Posaconazole 0.25 None Itraconazole 0.25 None Fluconazole Resist Caspofungin 0.25 Suscept Performed By: [facility] [address] [place] [id number] Regulatory Product Manager: Chava Osbrone MD, PhD CLIA Number: [id number] Final Report SEE NOTE Comment: Pichia kudriavzevii (Previously Naida krusei) Organism identified by client INTERPRETIVE INFORMATION: Susceptibility, Fungal (Yeasts and Molds) Units = ug/mL YSTMIC Amphotericin B 1 None Rezafungin 0.016 Suscept Anidulafungin 0.03 Suscept Micafungin 0.12 Suscept Voriconazole 0.25 Suscept Isavuconazole 0.25 None Posaconazole 0.25 None Itraconazole 0.25 None Fluconazole Resist Caspofungin 0.25 Suscept Performed By: [facility] [address] [place] [address] Regulatory Product Manager: Chava Osborne MD, PhD CLIA Number: [id number] Narrative: SHAMAR=Minimum Inhibitory Concentration MEC=Minimum Effective Concentration SHAMAR=Minimum Inhibitory Concentration MEC=Minimum Effective Concentration SHAMAR=Minimum Inhibitory Concentration MEC=Minimum Effective Concentration SHAMAR=Minimum Inhibitory Concentration MEC=Minimum Effective Concentration SHAMAR=Minimum Inhibitory Concentration MEC=Minimum Effective Concentration SHAMAR=Minimum Inhibitory Concentration MEC=Minimum Effective Concentration Radiology Impressions: CT Chest Wo Contrast Result Date: 07/04/2025 IMPRESSION: Atelectasis of the lower lobe of the left lung and dependent upper lobe associated withthe decrease volume of the left hemithorax and leftward shift of the heart and mediastinum. Mild dependent atelectasis in the right lung base. Partially imaged upper abdomen shows ventral hernia. > Interpreting Provider: Tray Jarvis MD on 07/04/2025 9:55 AM Medications: -Infusions: Medications[1] -Scheduled Medications: Medications[2] -PRN Medications: Medications[3] Problem List: Incarcerated ventral hernia (POA: Yes) Generalized abdominal pain (POA: Yes) Necrotizing soft tissue infection (POA: No) Peritonitis (HCC) (POA: Yes) Acute hypoxic respiratory failure (HCC) (POA: No) Septic shock (HCC) (POA: Yes) LARISA (acute kidney injury) (POA: Yes) Chronic atrial fibrillation (HCC) (POA: Yes) Chronic anticoagulation (POA: Yes) Diastolic congestive heart failure (HCC) (POA: Yes) Morbid (severe) obesity due to excess calories (HCC) (POA: Yes) Obstructive sleep apnea (POA: Yes) Hypothyroidism (POA: Yes) Cardiomegaly (POA: Yes) Assessment and Plan: Serjio Sanderson is a 64 year old male with PMH of CHF, YEN, A fib on Xarelto (last dose 06/30), three pulmonary embolisms (last in 2011), non specific thyroid condition. Presented with two day history of abdominal pain, with overlying skin ischemia, and CT from OSH with complicated abdominal hernia with fluid collection and soft tissue gas. Now s/p exploratory laparotomy, lysis of adhesions, small bowel resection, skin debridement and Abthera placement. Take back on hospital day 2, patient underwent reanastomosis, fascial closure, debridement of abdominal wall, and wound vac placement. Post operatively remained intubated and sedated on low dose levo, on clinda, micafugin, zosyn, vanc. S/p take back from reanastomosis, fascial closure, debridement of abdominal wall, and wound vac placement. Patient extubated on 07/05. Wound vac changed on 07/06 with healthy appearing granulation tissue. Tolerating regular diet, demonstrated return of bowel function. Patient medically ready for discharge, pending placement at SNF. Continue wound vac changes per nursing. Neuro: #Post- operative pain - scheduled tylenol - added PRN oxy 01/06 CV: #presumed sepsis #CHF most recently EF 50-55% #afib on xarelto, hx of multiple pulmonary embolisms, sp kaycentra - CHADSVASC score of 4 - continue Xarelto - Vitals q4h Resp: - extubated 07/05 - on NC, CPAP overnight (baseline) - bronchial hygiene - IS qhr while awake FEN/GI: #incarcerated hernia s/p SURESH, SBR now 15 Days Post-Op reanastomsosis, fascial closure, wound vac placement - Diet: regular - Weekly BMP, Mg, Phos - Strict I&Os TID - bowel reg: miralax Endo: - 25 mcg levothyroxine #hyperglycemic overnight, not on insulin at home, A1C 5.4% - SSI and POCT glucose Renal/: - [place] removed 07/06, voiding spontaneously - Cr 0.80 - strict I/O Heme/ID: - Hgb 9.0 - Transfuse if Hgb < 7 - Weekly CBC - zosyn, clinda, micafungin, deescalated to unasyn, abx completed after 10 day course #history of multiple DVTs/Pe's, 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, was on xarelto 15 mg on admission - restarted xarelto at appropriate dose (20 mg) given normal kidney function Msk: - PT/OT - encourage OOB and ambulation Wound care: - wound vac to -125 on abdominal wound - Wound vac changes per nursing, T/F PPX: SCDs, xarelto, protonix Disposition: medically ready for discharge pending placement Anne Reyes MD General Surgery, PGY-1 07/18/25 10:13 AM [1] [2] 0.9% NaCl 3 mL Intracatheter q8h acetylcysteine 3 mL Inhalation q4h WA albuterol-ipratropium 3 mL Inhalation q6h atorvastatin 80 mg Oral AT BEDTIME furosemide 40 mg Oral BID levothyroxine 25 mcg Oral QDAY AT 0600 pantoprazole EC 40 mg Oral QDAY polyethylene glycol 3350 17 g Oral QDAY rivaroxaban 20 mg Oral QDAY WITH DINNER spironolactone 12.5 mg Oral QDAY [3] SALINE LOCK, INSERT AND MAINTAIN AND 0.9% NaCl AND 0.9% NaCl oxyCODONE (immediate release) OR [DISCONTINUED] oxyCODONE (immediate release) Cosigned by Colby Beck DO at 07/19/2025 11:17 AM ELEC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 Associated attestation - Colby Beck DO - 07/19/2025 11:17 AM ELEC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 I saw and evaluated the patient on the date of service. I discussed the plan of care with the resident. I reviewed all relevant labs and radiology myself. Agree with note, except as otherwise documented here. Colby Beck DO 07/19/2025 11:17 AM Trauma/Acute Care Attending * Vane Hope MD - 07/17/2025 10:40 AM CST Images from the original note were not included. ACUTE CARE SURGERY PROGRESS NOTE Encounter Date: 07/17/2025 Serjio Sanderson Date of : 1960 . Age: [age] year old Room: [facility] Admit Date: 07/01/2025 5:24 PM Hospital Day: Hospital Day: 16 History of Present Illness: Copied forward from H&P Serjio Sanderson is a 64 year old male W Pmhx CHF, COPD, afib, DVT/PE on Xarelto (last taken 06/30), who presented with signs of an incarcerated, strangulated and perforated ventral hernia with overlying skin changes. After long discussion of risks and benefits (see note from Dr. Bermudez on 07/01), kaushik joyce was taken to the OR late evening of 07/01 and was found to have 6cm x 6cm ventral hernia withincarcerated bowel with large amount of stool encountered, surrounding soft tissue with component of necrotizing soft tissue infection requiring excisional debridement of [id number], small bowel perforation resected and then left in discontinuity with Abthera placed. Procedures: 07/01- lysis of adhesions, SBR, soft tissue excisional debridement, Abthera placement 07/03- SBR, anastomosis, fascial defect closed, wound vac placement Interval: - HDS, afebrile, on 3L NC - Tolerating diet - Pain controlled - Wound vac with good seal/suction, 150 mL SS output - BM x1 OBJECTIVE Vital signs: Temp: [97 ??F (36.1 ??C)-98.2 ??F (36.8 ??C)] Pulse: [70-81] Resp: [20] BP: (118-154)/(58-98) O2 %: [40 %] SpO2: [97 %-100 %] Input and Output: Date 07/16/25699 - 07/17/2565807/17/25699 - 07/18/25 0659 Shift 6786-6958 2681-9205 7704-6925 24 Hour Total 4499-1583 1790-2512 6097-3908 24 Hour Total INTAKE P.O. 720 630 842 3169 200 200 Shift Total(mL/kg) 720(3.8) 250(1.3) 100(0.5) 1070(5.7) 200(1.1) 200(1.1) OUTPUT Urine(mL/kg/hr) 1000(0.7) 1100(0.7) 900(0.6) 3000(0.7) Drains 50 50 50 150 Shift Total(mL/kg) 1050(5.6) 1150(6.1) 950(5) 3150(16.7) [facility]285 -018 -084 -6220 200 200 Weight (kg) 189.1 189.1 189.1 189.1 189.1 189.1 189.1 189.1 Diet: DIET CARDIAC DIETARY NUTRITION SUPPLEMENTS Physical Examination: Gen: alert, no acute distress HEENT: AT/NC, EOMI CV: RRR Pulm: non labored respirations on NC Abd: Soft, non-tender, wound vac in place with serosanginous output MSK: WWP, 1+ pitting edema bilateral lower extremities Neuro: no focal deficits, moving all extremities Psych: appropriate mood and affect Data Review: LABS: Recent Labs Component Name 07/16/25 0545 07/14/25 0602 07/13/25 0401 WBC 8.2 9.5 9.7 HGB 9.0* 9.1* 9.5* HCT 28.6* 28.7* 32.2* MCV 104.4* 103.6* 108.4* Recent Labs Component Name 07/16/25 0545 07/13/25 0401 07/12/25 0614 CALCIUM 8.7 8.4 8.7 PHOS 2.8 3.1 2.8 Recent Labs Component Name 07/16/25 0545 07/13/25 0401 07/12/25 0614 NA 139 142 142 CL 100 107 105 CO2 34* 30* 32* BUN 19 17 15 CREATININE 0.80 0.86 0.80 Recent Labs Component Name 07/12/25 0614 07/02/25 1052 07/01/25 1918 PROT 6.6 5.1* 6.2 6.5 ALB 2.1* 1.5* 2.1* 2.1* ALKPHOS 197* 97 112 115 AST 76* 36* 43* 44* ALT 57* 30 39 41 TBILI 1.3* 2.2* 1.8* 1.8* DBILI 0.9* 1.6* 1.3* Recent Labs Component Name 07/14/25 0602 07/13/25 0550 07/12/25 0614 PT 33.1* 31.2* 30.7* INR 3.3 3.0 3.0 PTT 29.0 43.1* 45.0* Microbiology: Microbiology Results (Displays last 21 days for this encounter ONLY) Procedure Component Value - Date/Time CULTURE FUNGUS OTHER+FUNGUS SMEAR [[id number]] (Normal) Collected: 07/05/25 1047 Lab Status: Preliminary result Specimen: Microbiology from Lung Washing Updated: 07/16/25 0727 Culture No fungus isolated Fungus Stain No yeast or hyphae seen No Pneumocystis jirovecii CULTURE BRONCHIAL WASHING+GRAM STAIN [[id number]] Collected: 07/05/25 1046 Lab Status: Final result Specimen: Microbiology from Lung, Left Lower Lobe Updated: 07/07/25 0729 Culture No growth Gram Stain Light Polymorphonuclear cells No organisms seen MRSA PCR [[id number]] (Normal) Collected: 07/02/25 0031 Lab Status: Final result Specimen: Microbiology from Nasal Updated: 07/02/25 0601 MRSA DNA by PCR Not detected Narrative: Methicillin-resistant Staphylococcus aureus (MRSA) DNA is not detected (presumed not colonized withMRSA). CULTURE FLUID+GRAM STAIN [[id number]] (Abnormal) (Susceptibility) Collected: 07/01/25 2350 Lab Status: Final result Specimen: Other from Peritoneal Fluid Updated: 07/10/25 0732 Culture Heavy Escherichia coli Heavy Streptococcus anginosus Rare Naida krusei Comment: Referred to [facility] for susceptibility Referred to [facility] [address] [place] [id number] See separate reference laboratory report Gram Stain Light Polymorphonuclear cells Heavy Gram-positive cocci Heavy Gram-negative bacilli Moderate Gram-positive bacilli Rare Yeast Susceptibility Escherichia coli (1) Antibiotic Interpretation Microscan Method Status Amikacin Susceptible <=2 ug/mL SHAMAR Final Ampicillin Susceptible 4 ug/mL SHAMAR Final Ampicillin-sulbactam Susceptible <=2 ug/mL SHAMAR Final Cefazolin See Comment* <=4 ug/mL SHAMAR Final Cefepime Susceptible <=1 ug/mL SHAMAR Final Ceftriaxone Susceptible <=1 ug/mL SHAMAR Final Ciprofloxacin Susceptible <=0.25 ug/mL SHAMAR Final Gentamicin Susceptible <=1 ug/mL SHAMAR Final Meropenem Susceptible <=0.25 ug/mL SHAMAR Final Piperacillin-tazobactam Susceptible <=4 ug/mL SHAMAR Final Tobramycin Susceptible <=1 ug/mL SHAMAR Final Trimethoprim-sulfamethoxazole Susceptible <=20 ug/mL SHAMAR Final Susceptibility Comments *Cefazolin SHAMAR of </=4 cannot distinguish between susceptible or intermediate for systemic breakpoints. If further defined interpretation is needed, call Microbiology and a disk diffusion test will be performed. Streptococcus anginosus (2) Antibiotic Interpretation Microscan Method Status Ampicillin Susceptible <=0.25 ug/mL SHAMAR Final Cefotaxime Susceptible <=0.12 ug/mL SHAMAR Final Ceftriaxone Susceptible 0.25 ug/mL SHAMAR Final Clindamycin Susceptible <=0.25 ug/mL SHAMAR Final Levofloxacin Susceptible <=0.25 ug/mL SHAMAR Final Penicillin G Susceptible <=0.06 ug/mL SHAMAR Final Tetracycline Susceptible 0.5 ug/mL SHAMAR Final Vancomycin Susceptible 0.5 ug/mL SHAMAR Final CULTURE ANAEROBE [[id number]] (Abnormal) Collected: 07/01/252349 Lab Status: Final result Specimen: Microbiology from Peritoneal Fluid Updated: 07/08/25 1013 Culture Moderate Phocaeicola (formerly Bacteroides) vulgatus Comment: Beta-lactamase positive Moderate Prevotella denticola Comment: Beta-lactamase negative Moderate Clostridium paraputrificum Comment: Beta-lactamase negative Moderate Finegoldia magna Narrative: Caution: The absence of beta-lactamase does not mean that the organism is susceptible to beta-lactams. Isolates may still be resistant to beta-lactams by a mechanism other than beta-lactamase production. CULTURE FUNGUS OTHER+FUNGUS SMEAR [[id number]] (Abnormal) Collected: 07/01/252349 Lab Status: Preliminary result Specimen: Microbiology from Peritoneal Fluid Updated: 07/16/25 1209 Culture No fungus isolated Fungus Stain Rare Yeast budding SUSCEPTIBILITY FUNGUS/YEAST [[id number]] Collected: 07/01/252349 Lab Status: Final result Specimen: Other from Peritoneal Fluid Updated: 07/09/25 1824 Prelim Report SEE NOTE Comment: Specimen received and in progress. INTERPRETIVE INFORMATION: Susceptibility, Fungal (Yeasts and Molds) Units = ug/mL YSTMIC Amphotericin B 1 None Rezafungin 0.016 Suscept Anidulafungin 0.03 Suscept Micafungin 0.12 Suscept Voriconazole 0.25 Suscept Isavuconazole 0.25 None Posaconazole 0.25 None Itraconazole 0.25 None Fluconazole Resist Caspofungin 0.25 Suscept Performed By: [facility] [address] [place] [address] Regulatory Product Manager: Chava Osborne MD, PhD CLIA Number: [id number] Final Report SEE NOTE Comment: Pichia kudriavzevii (Previously Naida krusei) Organism identified by client INTERPRETIVE INFORMATION: Susceptibility, Fungal (Yeasts and Molds) Units = ug/mL YSTMIC Amphotericin B 1 None Rezafungin 0.016 Suscept Anidulafungin 0.03 Suscept Micafungin 0.12 Suscept Voriconazole 0.25 Suscept Isavuconazole 0.25 None Posaconazole 0.25 None Itraconazole 0.25 None Fluconazole Resist Caspofungin 0.25 Suscept Performed By: [facility] [address] [place] [address] Regulatory Product Manager: Chava Osborne MD, PhD CLIA Number: [id number] Narrative: SHAMAR=Minimum Inhibitory Concentration MEC=Minimum Effective Concentration SHAMAR=Minimum Inhibitory Concentration MEC=Minimum Effective Concentration SHAMAR=Minimum Inhibitory Concentration MEC=Minimum Effective Concentration SHAMAR=Minimum Inhibitory Concentration MEC=Minimum Effective Concentration SHAMAR=Minimum Inhibitory Concentration MEC=Minimum Effective Concentration SHAMAR=Minimum Inhibitory Concentration MEC=Minimum Effective Concentration Radiology Impressions: CT Chest Wo Contrast Result Date: 07/04/2025 IMPRESSION: Atelectasis of the lower lobe of the left lung and dependent upper lobe associated withthe decrease volume of the left hemithorax and leftward shift of the heart and mediastinum. Mild dependent atelectasis in the right lung base. Partially imaged upper abdomen shows ventral hernia. > Interpreting Provider: Tray Jarvis MD on 07/04/2025 9:55 AM Medications: -Infusions: Medications[1] -Scheduled Medications: Medications[2] -PRN Medications: Medications[3] Problem List: Incarcerated ventral hernia (POA: Yes) Generalized abdominal pain (POA: Yes) Necrotizing soft tissue infection (POA: No) Peritonitis (HCC) (POA: Yes) Acute hypoxic respiratory failure (HCC) (POA: No) Septic shock (HCC) (POA: Yes) LARISA (acute kidney injury) (POA: Yes) Chronic atrial fibrillation (HCC) (POA: Yes) Chronic anticoagulation (POA: Yes) Diastolic congestive heart failure (HCC) (POA: Yes) Morbid (severe) obesity due to excess calories (HCC) (POA: Yes) Obstructive sleep apnea (POA: Yes) Hypothyroidism (POA: Yes) Cardiomegaly (POA: Yes) Assessment and Plan: Serjio Sanderson is a 64 year old male with PMH of CHF, YEN, A fib on Xarelto (last dose 06/30), three pulmonary embolisms (last in 2011), non specific thyroid condition. Presented with two day history of abdominal pain, with overlying skin ischemia, and CT from OSH with complicated abdominal hernia with fluid collection and soft tissue gas. Now s/p exploratory laparotomy, lysis of adhesions, small bowel resection, skin debridement and Abthera placement. Take back on hospital day 2, patient underwent reanastomosis, fascial closure, debridement of abdominal wall, and wound vac placement. Post operatively remained intubated and sedated on low dose levo, on clinda, micafugin, zosyn, vanc. S/p take back from reanastomosis, fascial closure, debridement of abdominal wall, and wound vac placement. Patient extubated on 07/05. Wound vac changed on 07/06 with healthy appearing granulation tissue. Tolerating regular diet, demonstrated return of bowel function. Patient medically ready for discharge, pending placement at SNF. Continue wound vac changes per nursing. Neuro: #Post- operative pain - scheduled tylenol - added PRN oxy 01/06 CV: #presumed sepsis #CHF most recently EF 50-55% #afib on xarelto, hx of multiple pulmonary embolisms, sp kaycentra - CHADSVASC score of 4 - continue Xarelto - Vitals q4h Resp: - extubated 07/05 - on NC, CPAP overnight (baseline) - bronchial hygiene - IS qhr while awake FEN/GI: #incarcerated hernia s/p SURESH, SBR now 14 Days Post-Op reanastomsosis, fascial closure, wound vac placement - Diet: regular - Weekly BMP, Mg, Phos - Strict I&Os TID - bowel reg: miralax Endo: - 25 mcg levothyroxine #hyperglycemic overnight, not on insulin at home, A1C 5.4% - SSI and POCT glucose Renal/: - [place] removed 07/06, voiding spontaneously - Cr 0.80 - strict I/O Heme/ID: - Hgb 9.0 - Transfuse if Hgb < 7 - Weekly CBC - zosyn, clinda, micafungin, deescalated to unasyn, abx completed after 10 day course #history of multiple DVTs/Pe's, 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, was on xarelto 15 mg on admission - restarted xarelto at appropriate dose (20 mg) given normal kidney function Msk: - PT/OT - encourage OOB and ambulation Wound care: - wound vac to -125 on abdominal wound - Wound vac changes per nursing, T/F PPX: SCDs, xarelto, protonix Disposition: medically ready for discharge pending placement Vane Hope MD General Surgery, PGY-3 07/17/25 10:40 AM [1] [2] 0.9% NaCl 3 mL Intracatheter q8h acetaminophen 650 mg Oral q6h acetylcysteine 3 mL Inhalation q4h WA albuterol-ipratropium 3 mL Inhalation q6h artificial tears Each Eye q8h atorvastatin 80 mg Oral AT BEDTIME chlorhexidine 15 mL Mouth/Throat BID furosemide 40 mg Oral BID insulin aspart 0-6 Units Subcutaneous q4h levothyroxine 25 mcg Oral QDAY AT 0600 pantoprazole EC 40 mg Oral QDAY polyethylene glycol 3350 17 g Oral QDAY rivaroxaban 20 mg Oral QDAY WITH DINNER spironolactone 12.5 mg Oral QDAY [3] SALINE LOCK, INSERT AND MAINTAIN AND 0.9% NaCl AND 0.9% NaCl dextrose IV for hypoglycemia OR dextrose IV for hypoglycemia OR glucagon glucose (Diabetic Use) gel oxyCODONE (immediate release) OR oxyCODONE (immediate release) 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 * Cherri Sorensen RN - 07/16/2025 3:49 PM CST Care Coordination Progress Note Expected Discharge Date: 07/19/2025 Discharge Plan: Patient continues to have wound vac. IV ABX are now completed. SNF recommended at discharge. SNF referrals pending in [place] [place]. SW following. Family Support (Name and Phone): Extended Emergency Contact Information Primary Emergency Contact: Dennis Sanderson Mobile Relation: Son Transportation at Discharge: Family: READMISSION RISK SCORE is 16.2 at 3:49 PM 07/16/2025.: Name: Cherri Sorensen, RN 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 * Meagan Pedersen LCSW - 07/16/2025 3:35 PM CST Facility Placement Progress Note Patient Goal (short term and termite treater): SNF Actual Level of Care/Dispostion Details Referrals initiated: Continued Care and Services - Admitted Since 07/01/2025 Destination Service Provider Request Status Services Address Referrals Phone Referrals Fax Patient Preferred [facility] Group Home Pending - Request Sent Primary: Group Home [address] [place] [address] [phone] -- Internal Comment last updated by Meagan Pedersen LCSW 07/16/2025 1531 11/17 L/M for admissions to f/u on referral [facility] Group Home Pending - Request Sent Primary: Group Home [address] [facility] [id number] -- Internal Comment last updated by Meagan Pedersen LCSW 07/16/2025 1533 11/17 L/M for admissions to f/u on referral [facility] Group Home Pending - Request Sent Primary: Group [facility] [address] [facility] [address] [phone] -- Internal Comment last updated by Meagan Pedersen LCSW 07/16/2025 1534 11/17 L/M for admissions to f/u on referral [facility] Group Home Pending - Request Sent Primary: Group Home [address] [facility] [id number] [phone] -- Internal Comment last updated by Meagan Pedersen LCSW 07/16/2025 1534 07/16 L/M for admissions to f/u on referral [facility] Acute Care Declined No payer/insurance Primary: [facility] Acute Care [address] [facility] [address] [phone] -- [facility] Acute Care Declined No payer/insurance Primary: [facility] Acute Care [address] [facility] [address] [phone] -- [facility] Group Home Declined Facility cannot provide for patient's needs Primary: Group Home [address] [facility] [address] [phone] -- If Medicare-3 day qualifying stay verified: N/A monitoring facility responses Comments: Please see above for placement updates. Name: Meagan Pedersen LCSW Phone: [phone] 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 * Farnaz Gayle RN - 07/16/2025 1:20 PM CST Problem: Pain/Discomfort Goal: Patient exhibits reduced pain/discomfort as evidenced by pain scores Outcome: Progressing Goal: Patient uses pharmacological and non-pharmacological pain management strategies. Outcome: Progressing Goal: Patient verbalizes acceptable level of pain relief and ability to engage in desired activity. Outcome: Progressing Problem: Skin/Tissue Integrity - Adult Goal: Skin integrity remains intact Description: INTERVENTIONS: Outcome: Progressing Goal: Incisions, wounds, or drain sites healing without S/S of infection Description: INFECTIONS: Outcome: Progressing Goal: Oral mucous membranes remain intact Description: INTERVENTIONS: Outcome: Progressing Problem: Restraint Safety Goal: Free from restraint(s) Description: INTERVENTIONS: Outcome: Progressing Goal: Remains free of injury from restraints Description: INTERVENTIONS: Outcome: Progressing Problem: Nutrient: Increased nutrient needs (specify) Goal: Total intake will meet estimated nutrient needs Outcome: Progressing Problem: Fall Risk Goal: Fall risk and fall related injury risk are minimized (interventions related to the fall risk can be found in the flowsheet documentation) Outcome: Progressing Problem: Neurosensory - Adult Goal: Achieves stable or improved neurological status Description: INTERVENTIONS Outcome: Progressing Goal: Remains free of injury related to seizures activity Description: INTERVENTIONS: Outcome: Progressing Goal: Achieves maximal functionality and self care Description: INTERVENTIONS: Outcome: Progressing Problem: Respiratory - Adult Goal: Achieves optimal ventilation and oxygenation Description: INTERVENTIONS: Outcome: Progressing Problem: Cardiovascular - Adult Goal: Maintains optimal cardiac output and hemodynamic stability Description: INTERVENTIONS: Outcome: Progressing Goal: Absence of cardiac dysrhythmias or at baseline Description: INTERVENTIONS: Outcome: Progressing Problem: Neurovascular Musculoskeletal - Adult Goal: Return mobility to safest level of function Description: INTERVENTIONS: Outcome: Progressing Goal: Maintain proper alignment of affected body part Description: INTERVENTIONS: Outcome: Progressing Goal: Return ADL status to a safe level of function Description: INTERVENTIONS: Outcome: Progressing Goal: Absence or reduction of edema Description: INTERVENTIONS Outcome: Progressing Goal: Maintains or improves tissue perfusion Description: INTERVENTIONS Outcome: Progressing Problem: Gastrointestinal - Adult Goal: Minimal or absence of nausea and vomiting Description: INTERVENTIONS: Outcome: Progressing Goal: Maintains or returns to baseline bowel function Description: INTERVENTIONS: Outcome: Progressing Goal: Maintains adequate nutritional intake Description: INTERVENTIONS: Outcome: Progressing Problem: Genitourinary - Adult Goal: Maintains or returns to baseline genitourinary function Description: INTERVENTIONS: Outcome: Progressing Goal: Urinary catheter remains patent Description: INTERVENTIONS: Outcome: Progressing Problem: Infection - Adult Goal: Infections are decreased or avoided Description: INTERVENTIONS: Outcome: Progressing Problem: Metabolic/Fluid and Electrolytes - Adult Goal: Electrolytes maintained within normal limits Description: INTERVENTIONS: Outcome: Progressing Goal: Hemodynamic stability and optimal renal function maintained Description: INTERVENTIONS: Outcome: Progressing Goal: Glucose maintained within prescribed range Description: INTERVENTIONS: Outcome: Progressing Problem: Hematologic - Adult Goal: Maintains hematologic stability Description: INTERVENTIONS: Outcome: Progressing Problem: Anxiety Goal: Will report anxiety at manageable levels Description: INTERVENTIONS Outcome: Progressing Problem: Coping Goal: Patient/Healthcare Agent able to verbalize concerns and demonstrate effective coping strategies Description: INTERVENTIONS Outcome: Progressing Problem: Decision Making Goal: Patient/Healthcare Agent able to effectively weigh alternatives and participate in decision making related to treatment and care. Description: INTERVENTIONS Outcome: Progressing Problem: Behavior Goal: Pt/Family maintain appropriate behavior and adhere to behavioral management agreement, if implemented Description: INTERVENTIONS Outcome: Progressing Problem: Depression/Self Harm Goal: Effect of psychiatric condition will be minimized and patient will be protected from self harm Description: INTERVENTIONS Outcome: Progressing Problem: Substance Abuse/Detox Goal: Will have no detox symptoms and will verbalize plan for changing drug- related behavior Description: INTERVENTIONS Outcome: Progressing Problem: Balance Goal: LTG - Patient will demonstrate Intervention to enhance balance for safe completion of daily activities Outcome: Progressing 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 * Anne Reyes MD - 07/16/2025 5:40 AM CST Images from the original note were not included. ACUTE CARE SURGERY PROGRESS NOTE Encounter Date: 07/16/2025 Serjio Sanderson Date of : 1960 . Age: [age] year old Room: [facility] Admit Date: 07/01/2025 5:24 PM Hospital Day: Hospital Day: 15 History of Present Illness: Copied forward from H&P Serjio Sanderson is a 64 year old male W Pmhx CHF, COPD, afib, DVT/PE on Xarelto (last taken 06/30), who presented with signs of an incarcerated, strangulated and perforated ventral hernia with overlying skin changes. After long discussion of risks and benefits (see note from Dr. Bermudez on 07/01), kaushik joyce was taken to the OR late evening of 07/01 and was found to have 6cm x 6cm ventral hernia withincarcerated bowel with large amount of stool encountered, surrounding soft tissue with component of necrotizing soft tissue infection requiring excisional debridement of [id number], small bowel perforation resected and then left in discontinuity with Abthera placed. Procedures: 07/01- lysis of adhesions, SBR, soft tissue excisional debridement, Abthera placement 07/03- SBR, anastomosis, fascial defect closed, wound vac placement Interval: - HDS, afebrile, on 2-3L NC, CPAP overnight - Tolerating diet - Pain controlled - Passing flatus and BM - Continued abdominal soreness around wound vac, pain controlled OBJECTIVE Vital signs: Temp: [97.5 ??F (36.4 ??C)-98.8 ??F (37.1 ??C)] Pulse: [70-122] Resp: [16-20] BP: (132-150)/(69-83) O2 %: [40 %] SpO2: [93 %-100 %] Input and Output: Date 07/15/25699 - 07/16/2565807/16/25699 - 07/17/2559 Shift 6871-3494 7137-2736 0666-7932 24 Hour Total 7529-4078 4592-9857 5422-1152 24 Hour Total INTAKE P.O. 1080 588 474 0857 Shift Total(mL/kg) 1080(5.7) 490(2.6) 200(1.1) 1770(9.4) OUTPUT Urine(mL/kg/hr) 400(0.3) 2700(1.8) 3100 Drains 0 100 150 250 Shift Total(mL/kg) 400(2.1) 2800(14.8) 150(0.8) 3350(17.7) NET 680 -2310 50 -1580 Weight (kg) 189.1 189.1 189.1 189.1 189.1 189.1 189.1 189.1 Diet: DIET CARDIAC DIETARY NUTRITION SUPPLEMENTS Physical Examination: Gen: alert, no acute distress HEENT: AT/NC, EOMI CV: RRR Pulm: non labored respirations on NC Abd: Soft, appropriately TTP, wound vac in place with serosanginous output MSK: WWP, 1+ pitting edema bilateral lower extremities Neuro: no focal deficits, moving all extremities Psych: appropriate mood and affect Data Review: LABS: Recent Labs Component Name 07/14/25 0602 07/13/2540007/12/25 0614 WBC 9.5 9.7 9.8 HGB 9.1* 9.5* 10.2* HCT 28.7* 32.2* 32.5* MCV 103.6* 108.4* 103.8* Recent Labs Component Name 07/13/2540007/12/2514 07/11/25 0519 CALCIUM 8.4 8.7 8.4 PHOS 3.1 2.8 2.8 Recent Labs Component Name 07/13/25 04007/12/25 0614 07/11/25 0519 NA 142 142 143 CL 107 105 108* CO2 30* 32* 30* BUN 17 15 18 CREATININE 0.86 0.80 0.85 Recent Labs Component Name 07/12/25 0614 07/02/25 1052 07/01/25 1918 PROT 6.6 5.1* 6.2 6.5 ALB 2.1* 1.5* 2.1* 2.1* ALKPHOS 197* 97 112 115 AST 76* 36* 43* 44* ALT 57* 30 39 41 TBILI 1.3* 2.2* 1.8* 1.8* DBILI 0.9* 1.6* 1.3* Recent Labs Component Name 07/14/25 0602 07/13/25 0550 07/12/25 0614 PT 33.1* 31.2* 30.7* INR 3.3 3.0 3.0 PTT 29.0 43.1* 45.0* Microbiology: Microbiology Results (Displays last 21 days for this encounter ONLY) Procedure Component Value - Date/Time CULTURE FUNGUS OTHER+FUNGUS SMEAR [[id number]] (Normal) Collected: 07/05/25 1047 Lab Status: Preliminary result Specimen: Microbiology from Lung Washing Updated: 07/12/25 0750 Culture No fungus isolated Fungus Stain No yeast or hyphae seen No Pneumocystis jirovecii CULTURE BRONCHIAL WASHING+GRAM STAIN [[id number]] Collected: 07/05/25 1046 Lab Status: Final result Specimen: Microbiology from Lung, Left Lower Lobe Updated: 07/07/25 0729 Culture No growth Gram Stain Light Polymorphonuclear cells No organisms seen MRSA PCR [[id number]] (Normal) Collected: 07/02/25 0031 Lab Status: Final result Specimen: Microbiology from Nasal Updated: 07/02/25 0601 MRSA DNA by PCR Not detected Narrative: Methicillin-resistant Staphylococcus aureus (MRSA) DNA is not detected (presumed not colonized withMRSA). CULTURE FLUID+GRAM STAIN [[id number]] (Abnormal) (Susceptibility) Collected: 07/01/25 2350 Lab Status: Final result Specimen: Other from Peritoneal Fluid Updated: 07/10/25 0732 Culture Heavy Escherichia coli Heavy Streptococcus anginosus Rare Naida krusei Comment: Referred to [facility] for susceptibility Referred to [facility] [address] [place] [id number] See separate reference laboratory report Gram Stain Light Polymorphonuclear cells Heavy Gram-positive cocci Heavy Gram-negative bacilli Moderate Gram-positive bacilli Rare Yeast Susceptibility Escherichia coli (1) Antibiotic Interpretation Microscan Method Status Amikacin Susceptible <=2 ug/mL SHAMAR Final Ampicillin Susceptible 4 ug/mL SHAMAR Final Ampicillin-sulbactam Susceptible <=2 ug/mL SHAMAR Final Cefazolin See Comment* <=4 ug/mL SHAMAR Final Cefepime Susceptible <=1 ug/mL SHAMAR Final Ceftriaxone Susceptible <=1 ug/mL SHAMAR Final Ciprofloxacin Susceptible <=0.25 ug/mL SHAMAR Final Gentamicin Susceptible <=1 ug/mL SHAMAR Final Meropenem Susceptible <=0.25 ug/mL SHAMAR Final Piperacillin-tazobactam Susceptible <=4 ug/mL SHAMAR Final Tobramycin Susceptible <=1 ug/mL SHAMAR Final Trimethoprim-sulfamethoxazole Susceptible <=20 ug/mL SHAMAR Final Susceptibility Comments *Cefazolin SHAMAR of </=4 cannot distinguish between susceptible or intermediate for systemic breakpoints. If further defined interpretation is needed, call Microbiology and a disk diffusion test will be performed. Streptococcus anginosus (2) Antibiotic Interpretation Microscan Method Status Ampicillin Susceptible <=0.25 ug/mL SHAMAR Final Cefotaxime Susceptible <=0.12 ug/mL SHAMAR Final Ceftriaxone Susceptible 0.25 ug/mL SHAMAR Final Clindamycin Susceptible <=0.25 ug/mL SHAMAR Final Levofloxacin Susceptible <=0.25 ug/mL SHAMAR Final Penicillin G Susceptible <=0.06 ug/mL SHAMAR Final Tetracycline Susceptible 0.5 ug/mL SHAMAR Final Vancomycin Susceptible 0.5 ug/mL SHAMAR Final CULTURE ANAEROBE [[id number]] (Abnormal) Collected: 07/01/25 2350 Lab Status: Final result Specimen: Microbiology from Peritoneal Fluid Updated: 07/08/25 1013 Culture Moderate Phocaeicola (formerly Bacteroides) vulgatus Comment: Beta-lactamase positive Moderate Prevotella denticola Comment: Beta-lactamase negative Moderate Clostridium paraputrificum Comment: Beta-lactamase negative Moderate Finegoldia magna Narrative: Caution: The absence of beta-lactamase does not mean that the organism is susceptible to beta-lactams. Isolates may still be resistant to beta-lactams by a mechanism other than beta-lactamase production. CULTURE FUNGUS OTHER+FUNGUS SMEAR [[id number]] (Abnormal) Collected: 07/01/25 2350 Lab Status: Preliminary result Specimen: Microbiology from Peritoneal Fluid Updated: 07/15/25 0344 Culture No fungus isolated Fungus Stain Rare Yeast budding SUSCEPTIBILITY FUNGUS/YEAST [[id number]] Collected: 07/01/25 8700 Lab Status: Final result Specimen: Other from Peritoneal Fluid Updated: 07/09/25 1824 Prelim Report SEE NOTE Comment: Specimen received and in progress. INTERPRETIVE INFORMATION: Susceptibility, Fungal (Yeasts and Molds) Units = ug/mL YSTMIC Amphotericin B 1 None Rezafungin 0.016 Suscept Anidulafungin 0.03 Suscept Micafungin 0.12 Suscept Voriconazole 0.25 Suscept Isavuconazole 0.25 None Posaconazole 0.25 None Itraconazole 0.25 None Fluconazole Resist Caspofungin 0.25 Suscept Performed By: [facility] [address] [place] [address] Regulatory Product Manager: Chava Osborne MD, PhD CLIA Number: [id number] Final Report SEE NOTE Comment: Pichia kuiavzevii (Previously [place] krusei) Organism identified by client INTERPRETIVE INFORMATION: Susceptibility, Fungal (Yeasts and Molds) Units = ug/mL YSTMIC Amphotericin B 1 None Rezafungin 0.016 Suscept Anidulafungin 0.03 Suscept Micafungin 0.12 Suscept Voriconazole 0.25 Suscept Isavuconazole 0.25 None Posaconazole 0.25 None Itraconazole 0.25 None Fluconazole Resist Caspofungin 0.25 Suscept Performed By: [facility] [address] [place] [address] Regulatory Product Manager: hCava Osborne MD, PhD CLIA Number: [id number] Narrative: SHAMAR=Minimum Inhibitory Concentration MEC=Minimum Effective Concentration SHAMAR=Minimum Inhibitory Concentration MEC=Minimum Effective Concentration SHAMAR=Minimum Inhibitory Concentration MEC=Minimum Effective Concentration SHAMAR=Minimum Inhibitory Concentration MEC=Minimum Effective Concentration SHAMAR=Minimum Inhibitory Concentration MEC=Minimum Effective Concentration SHAMAR=Minimum Inhibitory Concentration MEC=Minimum Effective Concentration Radiology Impressions: CT Chest Wo Contrast Result Date: 07/04/2025 IMPRESSION: Atelectasis of the lower lobe of the left lung and dependent upper lobe associated withthe decrease volume of the left hemithorax and leftward shift of the heart and mediastinum. Mild dependent atelectasis in the right lung base. Partially imaged upper abdomen shows ventral hernia. > Interpreting Provider: Abdkarel Jarvis MD on 07/04/2025 9:55 AM Medications: -Infusions: Medications[1] -Scheduled Medications: Medications[2] -PRN Medications: Medications[3] Problem List: Incarcerated ventral hernia (POA: Yes) Generalized abdominal pain (POA: Yes) Necrotizing soft tissue infection (POA: No) Peritonitis (HCC) (POA: Yes) Acute hypoxic respiratory failure (HCC) (POA: No) Septic shock (HCC) (POA: Yes) LARISA (acute kidney injury) (POA: Yes) Chronic atrial fibrillation (HCC) (POA: Yes) Chronic anticoagulation (POA: Yes) Diastolic congestive heart failure (HCC) (POA: Yes) Morbid (severe) obesity due to excess calories (HCC) (POA: Yes) Obstructive sleep apnea (POA: Yes) Hypothyroidism (POA: Yes) Cardiomegaly (POA: Yes) Assessment and Plan: Serjio Sanderson is a 64 year old male with PMH of CHF, YEN, A fib on Xarelto (last dose 06/30), three pulmonary embolisms (last in 2011), non specific thyroid condition. Presented with two day history of abdominal pain, with overlying skin ischemia, and CT from OSH with complicated abdominal hernia with fluid collection and soft tissue gas. Now s/p exploratory laparotomy, lysis of adhesions, small bowel resection, skin debridement and Abthera placement. Take back on hospital day 2, patient underwent reanastomosis, fascial closure, debridement of abdominal wall, and wound vac placement. Post operatively remained intubated and sedated on low dose levo, on clinda, micafugin, zosyn, vanc. S/p take back from reanastomosis, fascial closure, debridement of abdominal wall, and wound vac placement. Patient extubated on 07/05. Wound vac changed on 07/06 with healthy appearing granulation tissue. Tolerating regular diet, demonstrated return of bowel function. Patient medically ready for discharge, pending placement at SNF. Continue wound vac changes per nursing. Neuro: #Post- operative pain - scheduled tylenol - added PRN oxy 01/06 CV: #presumed sepsis #CHF most recently EF 50-55% #afib on xarelto, hx of multiple pulmonary embolisms, sp kaycentra - CHADSVASC score of 4 - continue Xarelto - Vitals q4h Resp: - extubated 07/05 - on NC, CPAP overnight (baseline) - bronchial hygiene - IS qhr while awake FEN/GI: #incarcerated hernia s/p SURESH, SBR now 13 Days Post-Op reanastomsosis, fascial closure, wound vac placement - Diet: regular - Weekly BMP, Mg, Phos - Strict I&Os TID - bowel reg: miralax Endo: - 25 mcg levothyroxine #hyperglycemic overnight, not on insulin at home, A1C 5.4% - SSI and POCT glucose Renal/: - [place] removed 07/06, voiding spontaneously - Cr 0.86 - strict I/O Heme/ID: - Hgb 9.1 - Transfuse if Hgb < 7 - Weekly CBC - zosyn, clinda, micafungin, deescalated to unasyn, abx completed after 10 day course #history of multiple DVTs/Pe's, 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, was on xarelto 15 mg on admission - restarted xarelto at appropriate dose (20 mg) given normal kidney function Msk: - PT/OT - encourage OOB and ambulation Wound care: - wound vac to -125 on abdominal wound - Wound vac changes per nursing, T/F - last change 07/13, PPX: SCDs, xarelto, protonix Disposition: medically ready for discharge pending placement Anne Reyes MD General Surgery, PGY-1 07/16/25 5:40 AM [1] [2] 0.9% NaCl 3 mL Intracatheter q8h acetaminophen 650 mg Oral q6h acetylcysteine 3 mL Inhalation q4h WA albuterol-ipratropium 3 mL Inhalation q6h artificial tears Each Eye q8h atorvastatin 80 mg Oral AT BEDTIME chlorhexidine 15 mL Mouth/Throat BID furosemide 40 mg Oral BID insulin aspart 0-6 Units Subcutaneous q4h levothyroxine 25 mcg Oral QDAY AT 0600 pantoprazole EC 40 mg Oral QDAY polyethylene glycol 3350 17 g Oral QDAY rivaroxaban 20 mg Oral QDAY WITH DINNER spironolactone 12.5 mg Oral QDAY [3] SALINE LOCK, INSERT AND MAINTAIN AND 0.9% NaCl AND 0.9% NaCl dextrose IV for hypoglycemia OR dextrose IV for hypoglycemia OR glucagon glucose (Diabetic Use) gel oxyCODONE (immediate release) OR oxyCODONE (immediate release) Cosigned by Colby Beck DO at 07/16/2025 8:27 PM ELEC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 Associated attestation - Colby Beck DO - 07/16/2025 8:27 PM ELEC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 I saw and evaluated the patient on the date of service. I discussed the plan of care with the resident. I reviewed all relevant labs and radiology myself. Agree with note, except as otherwise documented here. Colby Beck DO 07/16/2025 8:27 PM Trauma/Acute Care Attending * Anne Reyes MD - 07/15/2025 10:44 AM CST Images from the original note were not included. ACUTE CARE SURGERY PROGRESS NOTE Encounter Date: 07/15/2025 Serjio Sanderson Date of : 1960 . Age: [age] year old Room: [facility]/ Admit Date: 07/01/2025 5:24 PM Hospital Day: Hospital Day: 14 History of Present Illness: Copied forward from H&P Serjio Sanderson is a 64 year old male W Pmhx CHF, COPD, afib, DVT/PE on Xarelto (last taken 06/30), who presented with signs of an incarcerated, strangulated and perforated ventral hernia with overlying skin changes. After long discussion of risks and benefits (see note from Dr. Bermudez on 07/01), kaushik joyce was taken to the OR late evening of 07/01 and was found to have 6cm x 6cm ventral hernia withincarcerated bowel with large amount of stool encountered, surrounding soft tissue with component of necrotizing soft tissue infection requiring excisional debridement of [id number], small bowel perforation resected and then left in discontinuity with Abthera placed. Procedures: 07/01- lysis of adhesions, SBR, soft tissue excisional debridement, Abthera placement 07/03- SBR, anastomosis, fascial defect closed, wound vac placement Interval: - HDS, afebrile, on 2-3L NC - Tolerating diet - Pain controlled - Passing flatus and BM - Continued abdominal soreness, slowly improving OBJECTIVE Vital signs: Temp: [97.8 ??F (36.6 ??C)-98.6 ??F (37 ??C)] Pulse: [79-122] Resp: [16-22] BP: (146-160)/(69-95) SpO2: [90 %-100 %] Input and Output: Date 07/14/25 07 - 07/15/25 0659 07/15/25 07 - 07/16/25 0659 Shift 3634-7071 4389-4059 5785-5499 24 Hour Total 5388-1009 1720-1032 1755-4993 24 Hour Total INTAKE P.O. 360 360 480 480 Shift Total(mL/kg) 360(1.9) 360(1.9) 480(2.5) 480(2.5) OUTPUT Urine(mL/kg/hr) 1050(0.7) 1000(0.7) 2050(0.5) Drains 75 100 175 0 0 Shift Total(mL/kg) 1050(5.6) 75(0.4) 1100(5.8) 2225(11.8) 0(0) 0(0) NET - -1865 480 480 Weight (kg) 189.1 189.1 189.1 189.1 189.1 189.1 189.1 189.1 Diet: DIET CARDIAC DIETARY NUTRITION SUPPLEMENTS Physical Examination: Gen: alert, no acute distress HEENT: AT/NC, EOMI CV: RRR Pulm: non labored respirations on NC Abd: Soft, appropriately TTP, wound vac in place with serosanginous output MSK: WWP, 1+ pitting edema bilateral lower extremities Neuro: no focal deficits, moving all extremities Psych: appropriate mood and affect Data Review: LABS: Recent Labs Component Name 07/14/25 0602 07/13/25 0401 07/12/25 0614 WBC 9.5 9.7 9.8 HGB 9.1* 9.5* 10.2* HCT 28.7* 32.2* 32.5* MCV 103.6* 108.4* 103.8* Recent Labs Component Name 07/13/25 0401 07/12/25 0614 07/11/25 0519 CALCIUM 8.4 8.7 8.4 PHOS 3.1 2.8 2.8 Recent Labs Component Name 07/13/25 0401 07/12/25 0614 07/11/25 0519 NA 142 142 143 CL 107 105 108* CO2 30* 32* 30* BUN 17 15 18 CREATININE 0.86 0.80 0.85 Recent Labs Component Name 07/12/25 0614 07/02/25 1052 07/01/25 1918 PROT 6.6 5.1* 6.2 6.5 ALB 2.1* 1.5* 2.1* 2.1* ALKPHOS 197* 97 112 115 AST 76* 36* 43* 44* ALT 57* 30 39 41 TBILI 1.3* 2.2* 1.8* 1.8* DBILI 0.9* 1.6* 1.3* Recent Labs Component Name 07/14/25 0602 07/13/25 0550 07/12/25 0614 PT 33.1* 31.2* 30.7* INR 3.3 3.0 3.0 PTT 29.0 43.1* 45.0* Microbiology: Microbiology Results (Displays last 21 days for this encounter ONLY) Procedure Component Value - Date/Time CULTURE FUNGUS OTHER+FUNGUS SMEAR [[id number]] (Normal) Collected: 07/05/25 1047 Lab Status: Preliminary result Specimen: Microbiology from Lung Washing Updated: 07/12/25 0750 Culture No fungus isolated Fungus Stain No yeast or hyphae seen No Pneumocystis jirovecii CULTURE BRONCHIAL WASHING+GRAM STAIN [[id number]] Collected: 07/05/25 1046 Lab Status: Final result Specimen: Microbiology from Lung, Left Lower Lobe Updated: 07/07/25 0729 Culture No growth Gram Stain Light Polymorphonuclear cells No organisms seen MRSA PCR [[id number]] (Normal) Collected: 07/02/25 0031 Lab Status: Final result Specimen: Microbiology from Nasal Updated: 07/02/25 0601 MRSA DNA by PCR Not detected Narrative: Methicillin-resistant Staphylococcus aureus (MRSA) DNA is not detected (presumed not colonized withMRSA). CULTURE FLUID+GRAM STAIN [[id number]] (Abnormal) (Susceptibility) Collected: 07/01/252349 Lab Status: Final result Specimen: Other from Peritoneal Fluid Updated: 07/10/25 0732 Culture Heavy Escherichia coli Heavy Streptococcus anginosus Rare Naida krusei Comment: Referred to [facility] for susceptibility Referred to [facility] [address] [place] [id number] See separate reference laboratory report Gram Stain Light Polymorphonuclear cells Heavy Gram-positive cocci Heavy Gram-negative bacilli Moderate Gram-positive bacilli Rare Yeast Susceptibility Escherichia coli (1) Antibiotic Interpretation Microscan Method Status Amikacin Susceptible <=2 ug/mL SHAMAR Final Ampicillin Susceptible 4 ug/mL SHAMAR Final Ampicillin-sulbactam Susceptible <=2 ug/mL SHAMAR Final Cefazolin See Comment* <=4 ug/mL SHAMAR Final Cefepime Susceptible <=1 ug/mL SHAMAR Final Ceftriaxone Susceptible <=1 ug/mL SHAMAR Final Ciprofloxacin Susceptible <=0.25 ug/mL SHAMAR Final Gentamicin Susceptible <=1 ug/mL SHAMAR Final Meropenem Susceptible <=0.25 ug/mL SHAMAR Final Piperacillin-tazobactam Susceptible <=4 ug/mL SHAMAR Final Tobramycin Susceptible <=1 ug/mL SHAMAR Final Trimethoprim-sulfamethoxazole Susceptible <=20 ug/mL SHAMAR Final Susceptibility Comments *Cefazolin SHAMAR of </=4 cannot distinguish between susceptible or intermediate for systemic breakpoints. If further defined interpretation is needed, call Microbiology and a disk diffusion test will be performed. Streptococcus anginosus (2) Antibiotic Interpretation Microscan Method Status Ampicillin Susceptible <=0.25 ug/mL SHAMAR Final Cefotaxime Susceptible <=0.12 ug/mL SHAMAR Final Ceftriaxone Susceptible 0.25 ug/mL SHAMAR Final Clindamycin Susceptible <=0.25 ug/mL SHAMAR Final Levofloxacin Susceptible <=0.25 ug/mL SHAMAR Final Penicillin G Susceptible <=0.06 ug/mL SHAMAR Final Tetracycline Susceptible 0.5 ug/mL SHAMAR Final Vancomycin Susceptible 0.5 ug/mL SHAMAR Final CULTURE ANAEROBE [[id number]] (Abnormal) Collected: 07/01/252349 Lab Status: Final result Specimen: Microbiology from Peritoneal Fluid Updated: 07/08/25 1013 Culture Moderate Phocaeicola (formerly Bacteroides) vulgatus Comment: Beta-lactamase positive Moderate Prevotella denticola Comment: Beta-lactamase negative Moderate Clostridium paraputrificum Comment: Beta-lactamase negative Moderate Finegoldia magna Narrative: Caution: The absence of beta-lactamase does not mean that the organism is susceptible to beta-lactams. Isolates may still be resistant to beta-lactams by a mechanism other than beta-lactamase production. CULTURE FUNGUS OTHER+FUNGUS SMEAR [[id number]] (Abnormal) Collected: 07/01/252349 Lab Status: Preliminary result Specimen: Microbiology from Peritoneal Fluid Updated: 07/15/25 0344 Culture No fungus isolated Fungus Stain Rare Yeast budding SUSCEPTIBILITY FUNGUS/YEAST [[id number]] Collected: 07/01/252349 Lab Status: Final result Specimen: Other from Peritoneal Fluid Updated: 07/09/25 1824 Prelim Report SEE NOTE Comment: Specimen received and in progress. INTERPRETIVE INFORMATION: Susceptibility, Fungal (Yeasts and Molds) Units = ug/mL YSTMIC Amphotericin B 1 None Rezafungin 0.016 Suscept Anidulafungin 0.03 Suscept Micafungin 0.12 Suscept Voriconazole 0.25 Suscept Isavuconazole 0.25 None Posaconazole 0.25 None Itraconazole 0.25 None Fluconazole Resist Caspofungin 0.25 Suscept Performed By: [facility] [address] [place] [address] Regulatory Product Manager: Chava Osborne MD, PhD CLIA Number: [id number] Final Report SEE NOTE Comment: Pichia kuiavzevii (Previously Naida krusei) Organism identified by client INTERPRETIVE INFORMATION: Susceptibility, Fungal (Yeasts and Molds) Units = ug/mL YSTMIC Amphotericin B 1 None Rezafungin 0.016 Suscept Anidulafungin 0.03 Suscept Micafungin 0.12 Suscept Voriconazole 0.25 Suscept Isavuconazole 0.25 None Posaconazole 0.25 None Itraconazole 0.25 None Fluconazole Resist Caspofungin 0.25 Suscept Performed By: [facility] [address] [place], [place] [id number] Regulatory Product Manager: Chava Osborne MD, PhD CLIA Number: [id number] Narrative: SHAMAR=Minimum Inhibitory Concentration MEC=Minimum Effective Concentration SHAMAR=Minimum Inhibitory Concentration MEC=Minimum Effective Concentration SHAMAR=Minimum Inhibitory Concentration MEC=Minimum Effective Concentration SHAMAR=Minimum Inhibitory Concentration MEC=Minimum Effective Concentration SHAMAR=Minimum Inhibitory Concentration MEC=Minimum Effective Concentration SHAMAR=Minimum Inhibitory Concentration MEC=Minimum Effective Concentration Radiology Impressions: CT Chest Wo Contrast Result Date: 07/04/2025 IMPRESSION: Atelectasis of the lower lobe of the left lung and dependent upper lobe associated withthe decrease volume of the left hemithorax and leftward shift of the heart and mediastinum. Mild dependent atelectasis in the right lung base. Partially imaged upper abdomen shows ventral hernia. > Interpreting Provider: Tray Jarvis MD on 07/04/2025 9:55 AM Medications: -Infusions: Medications[1] -Scheduled Medications: Medications[2] -PRN Medications: Medications[3] Problem List: Incarcerated ventral hernia (POA: Yes) Generalized abdominal pain (POA: Yes) Necrotizing soft tissue infection (POA: No) Peritonitis (HCC) (POA: Yes) Acute hypoxic respiratory failure (HCC) (POA: No) Septic shock (HCC) (POA: Yes) LARISA (acute kidney injury) (POA: Yes) Chronic atrial fibrillation (HCC) (POA: Yes) Chronic anticoagulation (POA: Yes) Diastolic congestive heart failure (HCC) (POA: Yes) Morbid (severe) obesity due to excess calories (HCC) (POA: Yes) Obstructive sleep apnea (POA: Yes) Hypothyroidism (POA: Yes) Cardiomegaly (POA: Yes) Assessment and Plan: Serjio Sanderson is a 64 year old male with PMH of CHF, YEN, A fib on Xarelto (last dose 06/30), three pulmonary embolisms (last in 2011), non specific thyroid condition. Presented with two day history of abdominal pain, with overlying skin ischemia, and CT from OSH with complicated abdominal hernia with fluid collection and soft tissue gas. Now s/p exploratory laparotomy, lysis of adhesions, small bowel resection, skin debridement and Abthera placement. Take back on hospital day 2, patient underwent reanastomosis, fascial closure, debridement of abdominal wall, and wound vac placement. Post operatively remained intubated and sedated on low dose levo, on clinda, micafugin, zosyn, vanc. S/p take back from reanastomosis, fascial closure, debridement of abdominal wall, and wound vac placement. Patient extubated on 07/05. Wound vac changed on 07/06 with healthy appearing granulation tissue. Tolerating regular diet, demonstrated return of bowel function. Patient medically ready for discharge, pending placement at [facility]. Neuro: #Post- operative pain - scheduled tylenol - added PRN oxy /10, PRN diluadid CV: #presumed sepsis #CHF most recently EF 50-55% #afib on xarelto, hx of multiple pulmonary embolisms, sp kaycentra - CHADSVASC score of 4 - continue Xarelto - Vitals q4h Resp: - extubated 07/05 - on NC - bronchial hygiene - IS qhr while awake FEN/GI: #incarcerated hernia s/p SURESH, SBR now 12 Days Post-Op reanastomsosis, fascial closure, wound vac placement - Diet: regular - Daily BMP, Mg, Phos - replete as needed - Strict I&Os TID - bowel reg: miralax Endo: - 25 mcg levothyroxine #hyperglycemic overnight, not on insulin at home, A1C 5.4% - SSI and POCT glucose Renal/: - [place] removed 07/06, voiding spontaneously - Cr 0.86 - strict I/O Heme/ID: - Hgb 9.1 - Transfuse if Hgb < 7 - Daily CBC - zosyn, clinda, micafungin- deescalate to unasyn #history of multiple DVTs/Pe's, 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, was on xarelto 15 mg on admission - restarted xarelto at appropriate dose (20 mg) given normal kidney function Msk: - PT/OT - encourage OOB and ambulation Wound care: - wound vac to -125 on abdominal wound - Wound vac changes per nursing, T/F - last change 07/13, PPX: SCDs, xarelto, protonix Disposition: medically ready for discharge pending placement Anne Reyes MD General Surgery, PGY-3 07/15/25 10:44 AM [1] [2] 0.9% NaCl 3 mL Intracatheter q8h acetaminophen 650 mg Oral q6h acetylcysteine 3 mL Inhalation q4h WA albuterol-ipratropium 3 mL Inhalation q6h artificial tears Each Eye q8h atorvastatin 80 mg Oral AT BEDTIME chlorhexidine 15 mL Mouth/Throat BID furosemide 40 mg Oral BID insulin aspart 0-6 Units Subcutaneous q4h levothyroxine 25 mcg Oral QDAY AT 0600 pantoprazole EC 40 mg Oral QDAY polyethylene glycol 3350 17 g Oral QDAY rivaroxaban 20 mg Oral QDAY WITH DINNER spironolactone 12.5 mg Oral QDAY [3] SALINE LOCK, INSERT AND MAINTAIN AND 0.9% NaCl AND 0.9% NaCl dextrose IV for hypoglycemia OR dextrose IV for hypoglycemia OR glucagon glucose (Diabetic Use) gel oxyCODONE (immediate release) OR oxyCODONE (immediate release) Cosigned by Estrada Palomo MD at 07/15/2025 11:49 AM ELEC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 Associated attestation - Estrada Palomo MD - 07/15/2025 11:49 AM ELEC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 Patient seen and examined with the residents and wood block artist. Please see note for further details. Patient's lab values and radiology images noted in this report were personally reviewed by me with my interpretations as below, unless otherwise indicated. I confirm history, exam, assessment and plan, exceptwhere it may differ from my own as stated below. I have discussed and directed the medical management/treatment and performed decision making for the patient's medical condition and take responsibility for management risk pertaining to the patient. Estrada Palomo MD * Hossein Donahue RN - 07/15/2025 3:21 AM CST Problem: Pain/Discomfort Goal: Patient exhibits reduced pain/discomfort as evidenced by pain scores Outcome: Progressing Goal: Patient uses pharmacological and non-pharmacological pain management strategies. Outcome: Progressing Goal: Patient verbalizes acceptable level of pain relief and ability to engage in desired activity. Outcome: Progressing Problem: Skin/Tissue Integrity - Adult Goal: Skin integrity remains intact Description: INTERVENTIONS: Outcome: Progressing Goal: Incisions, wounds, or drain sites healing without S/S of infection Description: INFECTIONS: Outcome: Progressing Goal: Oral mucous membranes remain intact Description: INTERVENTIONS: Outcome: Progressing Problem: Restraint Safety Goal: Free from restraint(s) Description: INTERVENTIONS: Outcome: Progressing Goal: Remains free of injury from restraints Description: INTERVENTIONS: Outcome: Progressing Problem: Nutrient: Increased nutrient needs (specify) Goal: Total intake will meet estimated nutrient needs Outcome: Progressing Problem: Fall Risk Goal: Fall risk and fall related injury risk are minimized (interventions related to the fall risk can be found in the flowsheet documentation) Outcome: Progressing Problem: Neurosensory - Adult Goal: Achieves stable or improved neurological status Description: INTERVENTIONS Outcome: Progressing Goal: Remains free of injury related to seizures activity Description: INTERVENTIONS: Outcome: Progressing Goal: Achieves maximal functionality and self care Description: INTERVENTIONS: Outcome: Progressing Problem: Respiratory - Adult Goal: Achieves optimal ventilation and oxygenation Description: INTERVENTIONS: Outcome: Progressing Problem: Cardiovascular - Adult Goal: Maintains optimal cardiac output and hemodynamic stability Description: INTERVENTIONS: Outcome: Progressing Goal: Absence of cardiac dysrhythmias or at baseline Description: INTERVENTIONS: Outcome: Progressing Problem: Neurovascular Musculoskeletal - Adult Goal: Return mobility to safest level of function Description: INTERVENTIONS: Outcome: Progressing Goal: Maintain proper alignment of affected body part Description: INTERVENTIONS: Outcome: Progressing Goal: Return ADL status to a safe level of function Description: INTERVENTIONS: Outcome: Progressing Goal: Absence or reduction of edema Description: INTERVENTIONS Outcome: Progressing Goal: Maintains or improves tissue perfusion Description: INTERVENTIONS Outcome: Progressing Problem: Gastrointestinal - Adult Goal: Minimal or absence of nausea and vomiting Description: INTERVENTIONS: Outcome: Progressing Goal: Maintains or returns to baseline bowel function Description: INTERVENTIONS: Outcome: Progressing Goal: Maintains adequate nutritional intake Description: INTERVENTIONS: Outcome: Progressing Problem: Genitourinary - Adult Goal: Maintains or returns to baseline genitourinary function Description: INTERVENTIONS: Outcome: Progressing Goal: Urinary catheter remains patent Description: INTERVENTIONS: Outcome: Progressing Problem: Infection - Adult Goal: Infections are decreased or avoided Description: INTERVENTIONS: Outcome: Progressing Problem: Metabolic/Fluid and Electrolytes - Adult Goal: Electrolytes maintained within normal limits Description: INTERVENTIONS: Outcome: Progressing Goal: Hemodynamic stability and optimal renal function maintained Description: INTERVENTIONS: Outcome: Progressing Goal: Glucose maintained within prescribed range Description: INTERVENTIONS: Outcome: Progressing Problem: Hematologic - Adult Goal: Maintains hematologic stability Description: INTERVENTIONS: Outcome: Progressing Problem: Anxiety Goal: Will report anxiety at manageable levels Description: INTERVENTIONS Outcome: Progressing Problem: Coping Goal: Patient/Healthcare Agent able to verbalize concerns and demonstrate effective coping strategies Description: INTERVENTIONS Outcome: Progressing Problem: Decision Making Goal: Patient/Healthcare Agent able to effectively weigh alternatives and participate in decision making related to treatment and care. Description: INTERVENTIONS Outcome: Progressing Problem: Behavior Goal: Pt/Family maintain appropriate behavior and adhere to behavioral management agreement, if implemented Description: INTERVENTIONS Outcome: Progressing Problem: Depression/Self Harm Goal: Effect of psychiatric condition will be minimized and patient will be protected from self harm Description: INTERVENTIONS Outcome: Progressing Problem: Substance Abuse/Detox Goal: Will have no detox symptoms and will verbalize plan for changing drug- related behavior Description: INTERVENTIONS Outcome: Progressing Problem: Balance Goal: LTG - Patient will demonstrate Intervention to enhance balance for safe completion of daily activities Outcome: Progressing 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 * Vane Hope MD - 07/14/2025 8:41 AM CST Images from the original note were not included. ACUTE CARE SURGERY PROGRESS NOTE Encounter Date: 07/14/2025 Serjio Sanderson Date of : 1960 . Age: [age] year old Room: [facility] Admit Date: 07/01/2025 5:24 PM Hospital Day: Hospital Day: 13 History of Present Illness: Copied forward from H&P Serjio Sanderson is a 64 year old male W Pmhx CHF, COPD, afib, DVT/PE on Xarelto (last taken 06/30), who presented with signs of an incarcerated, strangulated and perforated ventral hernia with overlying skin changes. After long discussion of risks and benefits (see note from Dr. Bermudez on 07/01), kaushik joyce was taken to the OR late evening of 07/01 and was found to have 6cm x 6cm ventral hernia withincarcerated bowel with large amount of stool encountered, surrounding soft tissue with component of necrotizing soft tissue infection requiring excisional debridement of [id number], small bowel perforation resected and then left in discontinuity with Abthera placed. Procedures: 07/01- lysis of adhesions, SBR, soft tissue excisional debridement, Abthera placement 07/03- SBR, anastomosis, fascial defect closed, wound vac placement Interval: - HDS, afebrile, on 2-3L NC - Tolerating diet - Pain controlled - Passing flatus and BM - Wound vac with good seal, 245 mL SS output OBJECTIVE Vital signs: Temp: [97.8 ??F (36.6 ??C)-98.4 ??F (36.9 ??C)] Pulse: [81-92] Resp: [18] BP: (137-147)/(72-86) O2 %: [40 %-50 %] SpO2: [93 %-100 %] Input and Output: Date 07/13/25 07 - 07/14/25 0659 07/14/25 07 - 07/15/25 0659 Shift 9614-1066 5411-4783 9757-9928 24 Hour Total 2146-0796 3564-9278 6308-0162 24 Hour Total INTAKE P.O. 580 200 780 Shift Total(mL/kg) 580(3.1) 200(1.1) 780(4.1) OUTPUT Urine(mL/kg/hr) 1100(0.7) 1000(0.7) 2100(0.5) 700 700 Drains 200 45 245 Shift Total(mL/kg) 1100(5.8) 1200(6.3) 45(0.2) 2345(12.4) 700(3.7) 700(3.7) NET -520 -1000 -45 -1565 -700 -700 Weight (kg) 189.1 189.1 189.1 189.1 189.1 189.1 189.1 189.1 Diet: DIET CARDIAC DIETARY NUTRITION SUPPLEMENTS Physical Examination: Gen: alert, no acute distress HEENT: AT/NC, EOMI CV: RRR Pulm: non labored respirations on NC Abd: Soft, appropriately TTP, wound vac in place with serosanginous output MSK: WWP, 1+ pitting edema bilateral lower extremities Neuro: no focal deficits, moving all extremities Psych: appropriate mood and affect Data Review: LABS: Recent Labs Component Name 07/13/25 0401 07/12/25 0614 07/11/25 0519 WBC 9.7 9.8 10.6 HGB 9.5* 10.2* 9.0* HCT 32.2* 32.5* 29.2* MCV 108.4* 103.8* 104.3* Recent Labs Component Name 07/13/25 0401 07/12/25 0614 07/11/25 0519 CALCIUM 8.4 8.7 8.4 PHOS 3.1 2.8 2.8 Recent Labs Component Name 07/13/25 0401 07/12/25 0614 07/11/25 0519 NA 142 142 143 CL 107 105 108* CO2 30* 32* 30* BUN 17 15 18 CREATININE 0.86 0.80 0.85 Recent Labs Component Name 07/12/25 0614 07/02/25 1052 07/01/25 1918 PROT 6.6 5.1* 6.2 6.5 ALB 2.1* 1.5* 2.1* 2.1* ALKPHOS 197* 97 112 115 AST 76* 36* 43* 44* ALT 57* 30 39 41 TBILI 1.3* 2.2* 1.8* 1.8* DBILI 0.9* 1.6* 1.3* Recent Labs Component Name 07/14/25 0602 07/13/25 0550 07/12/25 0614 PT 33.1* 31.2* 30.7* INR 3.3 3.0 3.0 PTT 29.0 43.1* 45.0* Microbiology: Microbiology Results (Displays last 21 days for this encounter ONLY) Procedure Component Value - Date/Time CULTURE FUNGUS OTHER+FUNGUS SMEAR [[id number]] (Normal) Collected: 07/05/25 1047 Lab Status: Preliminary result Specimen: Microbiology from Lung Washing Updated: 07/12/25 0750 Culture No fungus isolated Fungus Stain No yeast or hyphae seen No Pneumocystis jirovecii CULTURE BRONCHIAL WASHING+GRAM STAIN [[id number]] Collected: 07/05/25 1046 Lab Status: Final result Specimen: Microbiology from Lung, Left Lower Lobe Updated: 07/07/25 0729 Culture No growth Gram Stain Light Polymorphonuclear cells No organisms seen MRSA PCR [[id number]] (Normal) Collected: 07/02/25 0031 Lab Status: Final result Specimen: Microbiology from Nasal Updated: 07/02/25 0601 MRSA DNA by PCR Not detected Narrative: Methicillin-resistant Staphylococcus aureus (MRSA) DNA is not detected (presumed not colonized withMRSA). CULTURE FLUID+GRAM STAIN [[id number]] (Abnormal) (Susceptibility) Collected: 07/01/252349 Lab Status: Final result Specimen: Other from Peritoneal Fluid Updated: 07/10/25 0732 Culture Heavy Escherichia coli Heavy Streptococcus anginosus Rare Naida krusei Comment: Referred to [facility] for susceptibility Referred to [facility] [address] [place] [id number] See separate reference laboratory report Gram Stain Light Polymorphonuclear cells Heavy Gram-positive cocci Heavy Gram-negative bacilli Moderate Gram-positive bacilli Rare Yeast Susceptibility Escherichia coli (1) Antibiotic Interpretation Microscan Method Status Amikacin Susceptible <=2 ug/mL SHAMAR Final Ampicillin Susceptible 4 ug/mL SHAMAR Final Ampicillin-sulbactam Susceptible <=2 ug/mL SHAMAR Final Cefazolin See Comment* <=4 ug/mL SHAMAR Final Cefepime Susceptible <=1 ug/mL SHAMAR Final Ceftriaxone Susceptible <=1 ug/mL SHAMAR Final Ciprofloxacin Susceptible <=0.25 ug/mL SHAMAR Final Gentamicin Susceptible <=1 ug/mL SHAMAR Final Meropenem Susceptible <=0.25 ug/mL SHAMAR Final Piperacillin-tazobactam Susceptible <=4 ug/mL SHAMAR Final Tobramycin Susceptible <=1 ug/mL SHAMAR Final Trimethoprim-sulfamethoxazole Susceptible <=20 ug/mL SHAMAR Final Susceptibility Comments *Cefazolin SHAMAR of </=4 cannot distinguish between susceptible or intermediate for systemic breakpoints. If further defined interpretation is needed, call Microbiology and a disk diffusion test will be performed. Streptococcus anginosus (2) Antibiotic Interpretation Microscan Method Status Ampicillin Susceptible <=0.25 ug/mL SHAMAR Final Cefotaxime Susceptible <=0.12 ug/mL SHAMAR Final Ceftriaxone Susceptible 0.25 ug/mL SHAMAR Final Clindamycin Susceptible <=0.25 ug/mL SHAMAR Final Levofloxacin Susceptible <=0.25 ug/mL SHAMAR Final Penicillin G Susceptible <=0.06 ug/mL SHAMAR Final Tetracycline Susceptible 0.5 ug/mL SHAMAR Final Vancomycin Susceptible 0.5 ug/mL SHAMAR Final CULTURE ANAEROBE [[id number]] (Abnormal) Collected: 07/01/252349 Lab Status: Final result Specimen: Microbiology from Peritoneal Fluid Updated: 07/08/25 1013 Culture Moderate Phocaeicola (formerly Bacteroides) vulgatus Comment: Beta-lactamase positive Moderate Prevotella denticola Comment: Beta-lactamase negative Moderate Clostridium paraputrificum Comment: Beta-lactamase negative Moderate Finegoldia magna Narrative: Caution: The absence of beta-lactamase does not mean that the organism is susceptible to beta-lactams. Isolates may still be resistant to beta-lactams by a mechanism other than beta-lactamase production. CULTURE FUNGUS OTHER+FUNGUS SMEAR [[id number]] (Abnormal) Collected: 07/01/252349 Lab Status: Preliminary result Specimen: Microbiology from Peritoneal Fluid Updated: 07/13/25 1112 Culture No fungus isolated Fungus Stain Rare Yeast budding SUSCEPTIBILITY FUNGUS/YEAST [[id number]] Collected: 07/01/252349 Lab Status: Final result Specimen: Other from Peritoneal Fluid Updated: 07/09/25 1824 Prelim Report SEE NOTE Comment: Specimen received and in progress. INTERPRETIVE INFORMATION: Susceptibility, Fungal (Yeasts and Molds) Units = ug/mL YSTMIC Amphotericin B 1 None Rezafungin 0.016 Suscept Anidulafungin 0.03 Suscept Micafungin 0.12 Suscept Voriconazole 0.25 Suscept Isavuconazole 0.25 None Posaconazole 0.25 None Itraconazole 0.25 None Fluconazole Resist Caspofungin 0.25 Suscept Performed By: [facility] [address] [place] [address] Regulatory Product Manager: Chava Osborne MD, PhD CLIA Number: [id number] Final Report SEE NOTE Comment: Pichia kudriavzevii (Previously Naida krusei) Organism identified by client INTERPRETIVE INFORMATION: Susceptibility, Fungal (Yeasts and Molds) Units = ug/mL YSTMIC Amphotericin B 1 None Rezafungin 0.016 Suscept Anidulafungin 0.03 Suscept Micafungin 0.12 Suscept Voriconazole 0.25 Suscept Isavuconazole 0.25 None Posaconazole 0.25 None Itraconazole 0.25 None Fluconazole Resist Caspofungin 0.25 Suscept Performed By: [facility] [address] [place], [place] [id number] Regulatory Product Manager: Chava Osborne MD, PhD CLIA Number: [id number] Narrative: SHAMAR=Minimum Inhibitory Concentration MEC=Minimum Effective Concentration SHAMAR=Minimum Inhibitory Concentration MEC=Minimum Effective Concentration SHAMAR=Minimum Inhibitory Concentration MEC=Minimum Effective Concentration SHAMAR=Minimum Inhibitory Concentration MEC=Minimum Effective Concentration SHAMAR=Minimum Inhibitory Concentration MEC=Minimum Effective Concentration SHAMAR=Minimum Inhibitory Concentration MEC=Minimum Effective Concentration Radiology Impressions: CT Chest Wo Contrast Result Date: 07/04/2025 IMPRESSION: Atelectasis of the lower lobe of the left lung and dependent upper lobe associated withthe decrease volume of the left hemithorax and leftward shift of the heart and mediastinum. Mild dependent atelectasis in the right lung base. Partially imaged upper abdomen shows ventral hernia. > Interpreting Provider: Tray Jarvis MD on 07/04/2025 9:55 AM Medications: -Infusions: Medications[1] -Scheduled Medications: Medications[2] -PRN Medications: Medications[3] Problem List: Incarcerated ventral hernia (POA: Yes) Generalized abdominal pain (POA: Yes) Necrotizing soft tissue infection (POA: No) Peritonitis (HCC) (POA: Yes) Acute hypoxic respiratory failure (HCC) (POA: No) Septic shock (HCC) (POA: Yes) LARISA (acute kidney injury) (POA: Yes) Chronic atrial fibrillation (HCC) (POA: Yes) Chronic anticoagulation (POA: Yes) Diastolic congestive heart failure (HCC) (POA: Yes) Morbid (severe) obesity due to excess calories (HCC) (POA: Yes) Obstructive sleep apnea (POA: Yes) Hypothyroidism (POA: Yes) Cardiomegaly (POA: Yes) Assessment and Plan: Serjio Sanderson is a 64 year old male with PMH of CHF, YEN, A fib on Xarelto (last dose 06/30), three pulmonary embolisms (last in 2011), non specific thyroid condition. Presented with two day history of abdominal pain, with overlying skin ischemia, and CT from OSH with complicated abdominal hernia with fluid collection and soft tissue gas. Now s/p exploratory laparotomy, lysis of adhesions, small bowel resection, skin debridement and Abthera placement. Take back on hospital day 2, patient underwent reanastomosis, fascial closure, debridement of abdominal wall, and wound vac placement. Post operatively remained intubated and sedated on low dose levo, on clinda, micafugin, zosyn, vanc. S/p take back from reanastomosis, fascial closure, debridement of abdominal wall, and wound vac placement. Patient extubated on 07/05. Wound vac changed on 07/06 with healthy appearing granulation tissue. Tolerating regular diet, demonstrated return of bowel function. Patient medically ready for discharge, pending placement at [facility] vs [facility]. Will initiate transfer to [facility]. Neuro: #Post- operative pain - scheduled tylenol - added PRN oxy 5/10, PRN diluadid CV: #presumed sepsis #CHF most recently EF 50-55% #afib on xarelto, hx of multiple pulmonary embolisms, sp kaycentra - CHADSVASC score of 4 - continue Xarelto - Vitals q4h Resp: - extubated 07/05 - on NC - bronchial hygiene - IS qhr while awake FEN/GI: #incarcerated hernia s/p SURESH, SBR now 11 Days Post-Op reanastomsosis, fascial closure, wound vac placement - Diet: regular - Daily BMP, Mg, Phos - replete as needed - Strict I&Os TID - bowel reg: miralax Endo: - 25 mcg levothyroxine #hyperglycemic overnight, not on insulin at home, A1C 5.4% - SSI and POCT glucose Renal/: - [place] removed 07/06, voiding spontaneously - Cr 0.86 - strict I/O Heme/ID: - Hgb 9.5 - Transfuse if Hgb < 7 - Daily CBC - zosyn, clinda, micafungin- deescalate to unasyn #history of multiple DVTs/Pe's, 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, was on xarelto 15 mg on admission - restarted xarelto at appropriate dose (20 mg) given normal kidney function Msk: - PT/OT - encourage OOB and ambulation Wound care: - wound vac to -125 on abdominal wound - Wound vac changes per nursing, T/F - last change 07/13, PPX: SCDs, xarelto, protonix Disposition: medically ready for discharge pending placement Vane Hope MD General Surgery, PGY-3 07/14/25 8:44 AM [1] [2] 0.9% NaCl 3 mL Intracatheter q8h acetaminophen 650 mg Oral q6h acetylcysteine 3 mL Inhalation q4h WA albuterol-ipratropium 3 mL Inhalation q6h artificial tears Each Eye q8h atorvastatin 80 mg Oral AT BEDTIME chlorhexidine 15 mL Mouth/Throat BID furosemide 40 mg Oral BID insulin aspart 0-6 Units Subcutaneous q4h levothyroxine 25 mcg Oral QDAY AT 0600 pantoprazole EC 40 mg Oral QDAY polyethylene glycol 3350 17 g Oral QDAY rivaroxaban 20 mg Oral QDAY WITH DINNER spironolactone 12.5 mg Oral QDAY [3] SALINE LOCK, INSERT AND MAINTAIN AND 0.9% NaCl AND 0.9% NaCl dextrose IV for hypoglycemia OR dextrose IV for hypoglycemia OR glucagon glucose (Diabetic Use) gel oxyCODONE (immediate release) OR oxyCODONE (immediate release) Cosigned by Estrada Palomo MD at 07/15/2025 7:19 AM ELEC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 Associated attestation - Estrada Palomo MD - 07/15/2025 7:19 AM ELEC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 Patient seen and examined with the residents and wood block artist. Please see note for further details. Patient's lab values and radiology images noted in this report were personally reviewed by me with my interpretations as below, unless otherwise indicated. I confirm history, exam, assessment and plan, exceptwhere it may differ from my own as stated below. I have discussed and directed the medical management/treatment and performed decision making for the patient's medical condition and take responsibility for management risk pertaining to the patient. Estrada Palomo M.D. * Vane Hope MD - 07/14/2025 7:42 AM CST [facility] Transfer Checklist: Reasons for Transfer to [facility]: Pending Placement/Authorization to Facility. Brief Hospital Course: Serjio Sanderson is a 64 year old male with PMH of CHF, YEN, A fib on Xarelto (last dose 06/30), three pulmonary embolisms (last in 2011), non specific thyroid condition. Presented with two day history of abdominal pain, with overlying skin ischemia, and CT from OSH with complicated abdominal hernia with fluid collection and soft tissue gas. Now s/p 07/01- lysis of adhesions, SBR, soft tissue excisional debridement, Abthera placement . 07/03- SBR, anastomosis, fascial defect closed, wound vac placement Wound care instructions (if applicable) wound vac changes to be performed by nursing. Remove black sponge and replace. If multiple black sponges used please staple sponges together. Take a picture of wound with each wound vac change. Home Meds Being Held/Why (if any): None Follow-up Tasks (to be completed prior to/for discharge, e.g. labs, imaging, follow-ups): None Your team's Preferred Contact Information for any potential follow up questions: [phone] Consultants that need to be Informed Prior to Discharge (especially for follow up appointment scheduling, please include any contact info): None Checklist Items: [x] Patient and/or family notified of potential transfer to [facility] [x] Patient added to [facility] Transfer List [x] Routine labs updated to 2200 [x] Any specialty specific discharge instructions (wound care, weight bearing status, follow up, etc...) have been typed into the After Visit Summary (AVS) Section of the discharge tab 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 * Stewart Palmer - 07/13/2025 3:41 PM CST [facility] Physical Therapy Progress Note Patient: Serjio Sanderson Med Record Number: [id number] Date of : 1960 Age: [age] year old PPE worn by staff: gloves PPE worn by patient: socks - clean;gown - patient, clean Tech: Malathi Recommendations: Discharge PT Discharge Recommendations: Patient would benefit from multidisciplinary therapy This recommendation is made due to ongoing PT functional needs: address care for self in the home;address functional deficits Patient is being recommended for post acute care, therefore DME recommendations will be made at thenext level of care. SUBJECTIVE: Subjective: Pt agreeable to work with PT. Daughter at bedside PATIENT GOALS / WHAT MATTERS MOST TO THE PATIENT: Patient's Primary Concern: to feel better Pain Assessment: Pain Assessment Pain Scale/Observation: 0-10 Pain Rating Score #1: (9.5) Pain Location : Right;Hip;Knee;Ankle Non-Pharmacological Intervention: Rest;Reposition (RN Notified) PRECAUTIONS: Weight Bearing Status: (no WB restrictions) Activity Level: Up with Assist OBJECTIVE: At start of therapy session, patient found in bed and with bed alarm on General Appearance: 64 yo male found in bed Vitals: (*Assess the 3 levels of oxygen saturations both for room air and 02 unless rest on room air is 88% or less). Rest BP: 157/68 (90) HR: 70s-92 Sp02 Sp02 95% 2L O2 Sitting EOB BP: HR: 90-110 Sp02 92% 2L O2 Post Activity BP: 174/58 (85) HR: 91 Sp02 Sp02 91% 2L O2 Observations: Patient on 2L O2. Reported 4/10 dizziness upon sitting EOB. Resolved with rest. Mild SOB with exercises at EOB. RN notified of pain and BP at end of session. Mental Status/Cognition: Orientation Level: (A&Ox4) Cognition: (A&Ox4) Attention Span: Attends with cues to redirect Memory: Appears intact Following Commands: Follows one step commands consistently Safety Judgement: Decreased awareness of need for safety Awareness of Errors: Decreased awareness of deficits Mobility: A gait belt and non-slip socks were used for all out of bed activity this date. Bed Mobility: Rolling: Moderate Assistance to Left;Moderate Assistance to Right Supine to Sit: Moderate Assistance;X 2 with HOB flat Sit to Supine: Maximum Assistance;X 2 Transfers: Sit to Stand: Activity Does Not Occur Stand to Sit: Activity Does Not Occur Transfer Device: Gait belt Gait: Weight Bearing Status: (no WB restrictions) Ambulation: Level of Assistance: Activity Does Not Occur Balance: Balance Scales/Tests Used: Sitting: Static/Dynamic;Standing: Static/Dynamic Sitting - Static: Fair Sitting - Dynamic: Fair -;With One Upper Extremity Support ACTIVITY TOLERANCE: Activity Tolerance: Requires rest breaks TREATMENT/INTERVENTIONS: bed mobility training, transfer training, balance activities, and monitoring of vitals THERAPEUTIC EXERCISES: Seated Balance with reaching to therapists hand: x10B Dynamic sitting balance ADL activities including washing armpits with towel LAQ: x5B Ankle Pumps: x10 in supine, x10 seated EOB AM-PAC 6 Clicks Mobility Raw Score:: 8 EDUCATION: While performing PT, Patient was instructed in:functional mobility training, safety awareness/fall precautions , pursed lip breathing techniques, discharge planning, use of call light Presented to patient who demonstrates Fair understanding of instructions given. ASSESSMENT: Patient would benefit from additional Physical Therapy sessions to achieve the following functionalgoals to enhance independence. Short Term Goals: Goal Formation With patient Patient will perform bed mobility with minimal assist and X 2 (updated 07/11) Patient will transfer sit to/from stand with maximal assist, X 2, and with least restrictive assistive device Patient will transfer bed to/from chair with maximal assist, X 2, and with least restrictive assistive device Senior Living Goal(s): Patient to discharge to appropriate next level of inpatient care. INFORMED CONSENT TO TREATMENT: Plan of care including recommended therapy, goals and frequency, discussed with patient who understands and agrees to proceed. Equipment Issued: none Plan: Patient continues to benefit from skilled therapy services., Continue with goals as established. If patient is discharged from the facility, this note serves as a discharge summary if further physical therapy visits did not occur. Refer to filed flowsheet for further details. Following therapy session, patient left in bed, with bed alarm on , with call light within reach, with family in room, with RNRosangela aware, with therapy cues visible on white board, with fall mats in place, all lines/tubes intact. Cosigned by Malathi Rodriguez PT at 07/13/2025 5:56 PM ELEC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 * Elsa Miller COTA - 07/13/2025 2:55 PM CST [facility] Occupational Therapy Progress Note Patient: Serjio Sanderson Med Record Number: [id number] Date of : 1960 Age: [age] year old PPE worn by staff: gloves PPE worn by patient: gown - patient, clean;socks - clean Recommendations: Discharge OT Discharge Recommendations: Patient would benefit from multidisciplinary therapy This recommendation is made due to ongoing OT functional needs: address functional deficits Activity Level: as tolerated PRECAUTIONS: Weight Bearing Status: (No restrictions noted) SUBJECTIVE: Subjective: Patient agreeable PATIENT GOALS / WHAT MATTERS MOST TO THE PATIENT: Patient's Primary Concern: none stated Pain Assessment: Pain Assessment Pain Scale/Observation: No/denies pain OBJECTIVE: At start of therapy session, patient found in bed, with bed alarm on, and daughter present in room General Appearance: pt in NAD Vitals: (*Assess the 3 levels of oxygen saturations both for room air and 02 unless rest on room air is 88% or less). Rest BP: 134/57 (77) HR: 59 Sp02 94% on 2 L via NC Observations: pt denied SOB/dizziness; vitals monitored during session. Mental Status/Cognition: Level of Consciousness-Adult: (Awake) Orientation Level: (A&Ox4) Cognition: (Appears intact) Attention Span: Attends with cues to redirect Memory: Appears intact Following Commands: Follows one step commands consistently Safety Judgement: Decreased awareness of need for assistance Awareness of Errors: Decreased awareness of deficits Problem Solving: Assistance required to implement solutions Mobility: a gait belt and non-slip socks were used for all out of bed activity this date. Bed Mobility: Rolling: Moderate Assistance to Right;Moderate Assistance to Left with HOB in semi-fowlers position Activities of Daily Living: Oral Facial Hygiene: Stand By Assist (with facial care) Lower Body Dressing: Maximal Assistance (to doff/don bilat socks and apply lotion to bilateral feet) AM-PAC 6 Clicks Daily Activity Raw Score:: 12 TREATMENT/INTERVENTIONS: ADL training Bed mobility Safety awareness EDUCATION: While performing OT, Patient was instructed in:self-care training, safety awareness/fallprecautions , pursed lip breathing techniques, use of call light Presented to patient who demonstrates Fair understanding of instructions given. INFORMED CONSENT TO TREATMENT: Plan of care including recommended therapy, goals and frequency, discussed with patient who understands and agrees to proceed. ASSESSMENT: Patient continues to benefit from skilled Occupational Therapy to achieve the following functional goals. Short Term Goals: Goal Formation With patient Patient will perform grooming at edge of bed and with stand by assist Patient will perform upper extremity dressing with minimal assist Patient will perform supine to/from sit with maximal assist Patient will transfer sit to stand with maximal assist Senior Living Goal(s): Patient to discharge to appropriate next level of inpatient care Plan: Patient continues to benefit from skilled therapy services., Continue with goals as established. If patient is discharged from the facility, this note serves as a discharge summary if further occupational therapy visits did not occur. Refer to filed flowsheet for further details. Following therapy session, patient left in bed, with bed alarm on , with call light within reach, with therapy cues visible on white board, with fall mats in place, all lines/tubes intact. 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 * Rohini Wharton MD - 07/13/2025 8:37 AM CST Images from the original note were not included. ACUTE CARE SURGERY PROGRESS NOTE Encounter Date: 07/13/2025 Serjio Sanderson Date of : 1960 . Age: [age] year old Room: [facility] Admit Date: 07/01/2025 5:24 PM Hospital Day: Hospital Day: 12 History of Present Illness: Copied forward from H&P Serjio Sanderson is a 64 year old male W Pmhx CHF, COPD, afib, DVT/PE on Xarelto (last taken 06/30), who presented with signs of an incarcerated, strangulated and perforated ventral hernia with overlying skin changes. After long discussion of risks and benefits (see note from Dr. Bermudez on 07/01), kaushik joyce was taken to the OR late evening of 07/01 and was found to have 6cm x 6cm ventral hernia withincarcerated bowel with large amount of stool encountered, surrounding soft tissue with component of necrotizing soft tissue infection requiring excisional debridement of [id number], small bowel perforation resected and then left in discontinuity with Abthera placed. Procedures: 07/01- lysis of adhesions, SBR, soft tissue excisional debridement, Abthera placement 07/03- SBR, anastomosis, fascial defect closed, wound vac placement Interval: No acute events overnight AF, hemodynamically stable Abdomen soft, non tender Tolerating regular diet Passing flatus, having bowel movements Pending placement OBJECTIVE Vital signs: Temp: [97.4 ??F (36.3 ??C)-98.3 ??F (36.8 ??C)] Pulse: [71-88] Resp: [16-22] BP: (132-144)/(63-90) O2 %: [50 %] SpO2: [93 %-100 %] Input and Output: Date 07/12/25 07 - 07/13/2565807/13/25 07 - 07/14/25 0659 Shift [id number] 7025-1373 9126-6723 24 Hour Total 0168-9569 6880-6366 2295-9642 24 Hour Total INTAKE Shift Total(mL/kg) OUTPUT Urine(mL/kg/hr) 900(0.6) 600(0.4) 800(0.5) 2300(0.5) Drains 325 50 375 Shift Total(mL/kg) 900(4.8) 925(4.9) 850(4.5) 2675(14.1) NET -900 -925 -850 -2675 Weight (kg) 189.1 189.1 189.1 189.1 189.1 189.1 189.1 189.1 Diet: DIET CARDIAC DIETARY NUTRITION SUPPLEMENTS Physical Examination: Gen: alert, no acute distress HEENT: AT/NC, EOMI CV: RRR Pulm: non labored respirations on NC Abd: Soft, wound vac in place with serosanginous output MSK: WWP, 1+ pitting edema bilateral lower extremities Neuro: no focal deficits, moving all extremities Psych: appropriate mood and affect Data Review: LABS: Recent Labs Component Name 07/13/2540007/12/2514 07/11/25 0519 WBC 9.7 9.8 10.6 HGB 9.5* 10.2* 9.0* HCT 32.2* 32.5* 29.2* MCV 108.4* 103.8* 104.3* Recent Labs Component Name 07/13/25 04007/12/25 0614 07/11/25 0519 CALCIUM 8.4 8.7 8.4 PHOS 3.1 2.8 2.8 Recent Labs Component Name 07/13/25 04007/12/25 0614 07/11/25 0519 NA 142 142 143 CL 107 105 108* CO2 30* 32* 30* BUN 17 15 18 CREATININE 0.86 0.80 0.85 Recent Labs Component Name 07/12/25 0614 07/02/25 1052 07/01/25 1918 PROT 6.6 5.1* 6.2 6.5 ALB 2.1* 1.5* 2.1* 2.1* ALKPHOS 197* 97 112 115 AST 76* 36* 43* 44* ALT 57* 30 39 41 TBILI 1.3* 2.2* 1.8* 1.8* DBILI 0.9* 1.6* 1.3* Recent Labs Component Name 07/13/25 0550 07/12/25 0614 07/11/25 0519 PT 31.2* 30.7* 31.0* INR 3.0 3.0 3.0 PTT 43.1* 45.0* 42.9* No results for input(s): CKTOTAL, CKMBCK2, TROPONINI in the last 30511 hours. No results for input(s): TACROLIMUS, TACROCARDIO, TACROGASTRO, TACRONEPHRO in the last 45287 hours. Microbiology: Microbiology Results (Displays last 21 days for this encounter ONLY) Procedure Component Value - Date/Time CULTURE FUNGUS OTHER+FUNGUS SMEAR [[id number]] (Normal) Collected: 07/05/25 1047 Lab Status: Preliminary result Specimen: Microbiology from Lung Washing Updated: 07/12/25 0750 Culture No fungus isolated Fungus Stain No yeast or hyphae seen No Pneumocystis jirovecii CULTURE BRONCHIAL WASHING+GRAM STAIN [[id number]] Collected: 07/05/25 1046 Lab Status: Final result Specimen: Microbiology from Lung, Left Lower Lobe Updated: 07/07/25 0729 Culture No growth Gram Stain Light Polymorphonuclear cells No organisms seen MRSA PCR [[id number]] (Normal) Collected: 07/02/25 0031 Lab Status: Final result Specimen: Microbiology from Nasal Updated: 07/02/25 0601 MRSA DNA by PCR Not detected Narrative: Methicillin-resistant Staphylococcus aureus (MRSA) DNA is not detected (presumed not colonized withMRSA). CULTURE FLUID+GRAM STAIN [[id number]] (Abnormal) (Susceptibility) Collected: 07/01/25 2350 Lab Status: Final result Specimen: Other from Peritoneal Fluid Updated: 07/10/25 0732 Culture Heavy Escherichia coli Heavy Streptococcus anginosus Rare Naida krusei Comment: Referred to [facility] for susceptibility Referred to [facility] [address] [place] [id number] See separate reference laboratory report Gram Stain Light Polymorphonuclear cells Heavy Gram-positive cocci Heavy Gram-negative bacilli Moderate Gram-positive bacilli Rare Yeast Susceptibility Escherichia coli (1) Antibiotic Interpretation Microscan Method Status Amikacin Susceptible <=2 ug/mL SHAMAR Final Ampicillin Susceptible 4 ug/mL SHAMAR Final Ampicillin-sulbactam Susceptible <=2 ug/mL SHAMAR Final Cefazolin See Comment* <=4 ug/mL SHAMAR Final Cefepime Susceptible <=1 ug/mL SHAMAR Final Ceftriaxone Susceptible <=1 ug/mL SHAMAR Final Ciprofloxacin Susceptible <=0.25 ug/mL SHAMAR Final Gentamicin Susceptible <=1 ug/mL SHAMAR Final Meropenem Susceptible <=0.25 ug/mL SHAMAR Final Piperacillin-tazobactam Susceptible <=4 ug/mL SHAMAR Final Tobramycin Susceptible <=1 ug/mL SHAMAR Final Trimethoprim-sulfamethoxazole Susceptible <=20 ug/mL SHAMAR Final Susceptibility Comments *Cefazolin SHAMAR of </=4 cannot distinguish between susceptible or intermediate for systemic breakpoints. If further defined interpretation is needed, call Microbiology and a disk diffusion test will be performed. Streptococcus anginosus (2) Antibiotic Interpretation Microscan Method Status Ampicillin Susceptible <=0.25 ug/mL SHAMAR Final Cefotaxime Susceptible <=0.12 ug/mL SHAMAR Final Ceftriaxone Susceptible 0.25 ug/mL SHAMAR Final Clindamycin Susceptible <=0.25 ug/mL SHAMAR Final Levofloxacin Susceptible <=0.25 ug/mL SHAMAR Final Penicillin G Susceptible <=0.06 ug/mL SHAMAR Final Tetracycline Susceptible 0.5 ug/mL SHAMAR Final Vancomycin Susceptible 0.5 ug/mL SHAMAR Final CULTURE ANAEROBE [[id number]] (Abnormal) Collected: 07/01/252349 Lab Status: Final result Specimen: Microbiology from Peritoneal Fluid Updated: 07/08/25 1013 Culture Moderate Phocaeicola (formerly Bacteroides) vulgatus Comment: Beta-lactamase positive Moderate Prevotella denticola Comment: Beta-lactamase negative Moderate Clostridium paraputrificum Comment: Beta-lactamase negative Moderate Finegoldia magna Narrative: Caution: The absence of beta-lactamase does not mean that the organism is susceptible to beta-lactams. Isolates may still be resistant to beta-lactams by a mechanism other than beta-lactamase production. CULTURE FUNGUS OTHER+FUNGUS SMEAR [[id number]] (Abnormal) Collected: 07/01/252349 Lab Status: Preliminary result Specimen: Microbiology from Peritoneal Fluid Updated: 07/12/25 1107 Culture Culture in progress Fungus Stain Rare Yeast budding SUSCEPTIBILITY FUNGUS/YEAST [[id number]] Collected: 07/01/252349 Lab Status: Final result Specimen: Other from Peritoneal Fluid Updated: 07/09/25 1824 Prelim Report SEE NOTE Comment: Specimen received and in progress. INTERPRETIVE INFORMATION: Susceptibility, Fungal (Yeasts and Molds) Units = ug/mL YSTMIC Amphotericin B 1 None Rezafungin 0.016 Suscept Anidulafungin 0.03 Suscept Micafungin 0.12 Suscept Voriconazole 0.25 Suscept Isavuconazole 0.25 None Posaconazole 0.25 None Itraconazole 0.25 None Fluconazole Resist Caspofungin 0.25 Suscept Performed By: [facility] [address] [place] [address] Regulatory Product Manager: Chava Osborne MD, PhD CLIA Number: [id number] Final Report SEE NOTE Comment: Pichia kuiavzevii (Previously Naida krusei) Organism identified by client INTERPRETIVE INFORMATION: Susceptibility, Fungal (Yeasts and Molds) Units = ug/mL YSTMIC Amphotericin B 1 None Rezafungin 0.016 Suscept Anidulafungin 0.03 Suscept Micafungin 0.12 Suscept Voriconazole 0.25 Suscept Isavuconazole 0.25 None Posaconazole 0.25 None Itraconazole 0.25 None Fluconazole Resist Caspofungin 0.25 Suscept Performed By: [facility] [address] [place] [address] Regulatory Product Manager: Chava Osborne MD, PhD CLIA Number: [id number] Narrative: SHAMAR=Minimum Inhibitory Concentration MEC=Minimum Effective Concentration SHAMAR=Minimum Inhibitory Concentration MEC=Minimum Effective Concentration SHAMAR=Minimum Inhibitory Concentration MEC=Minimum Effective Concentration SHAMAR=Minimum Inhibitory Concentration MEC=Minimum Effective Concentration SHAMAR=Minimum Inhibitory Concentration MEC=Minimum Effective Concentration SHAMAR=Minimum Inhibitory Concentration MEC=Minimum Effective Concentration Radiology Impressions: CT Chest Wo Contrast Result Date: 07/04/2025 IMPRESSION: Atelectasis of the lower lobe of the left lung and dependent upper lobe associated withthe decrease volume of the left hemithorax and leftward shift of the heart and mediastinum. Mild dependent atelectasis in the right lung base. Partially imaged upper abdomen shows ventral hernia. > Interpreting Provider: Tray Jarvis MD on 07/04/2025 9:55 AM Medications: -Infusions: Medications[1] -Scheduled Medications: Medications[2] -PRN Medications: Medications[3] Problem List: Incarcerated ventral hernia (POA: Yes) Generalized abdominal pain (POA: Yes) Necrotizing soft tissue infection (POA: No) Peritonitis (HCC) (POA: Yes) Acute hypoxic respiratory failure (HCC) (POA: No) Septic shock (HCC) (POA: Yes) LARISA (acute kidney injury) (POA: Yes) Chronic atrial fibrillation (HCC) (POA: Yes) Chronic anticoagulation (POA: Yes) Diastolic congestive heart failure (HCC) (POA: Yes) Morbid (severe) obesity due to excess calories (HCC) (POA: Yes) Obstructive sleep apnea (POA: Yes) Hypothyroidism (POA: Yes) Cardiomegaly (POA: Yes) Assessment and Plan: Serjio Sanderson is a 64 year old male with PMH of CHF, YEN, A fib on Xarelto (last dose 06/30), three pulmonary embolisms (last in 2011), non specific thyroid condition. Presented with two day history of abdominal pain, with overlying skin ischemia, and CT from OSH with complicated abdominal hernia with fluid collection and soft tissue gas. Now s/p exploratory laparotomy, lysis of adhesions, small bowel resection, skin debridement and Abthera placement. Take back on hospital day 2, patient underwent reanastomosis, fascial closure, debridement of abdominal wall, and wound vac placement. Post operatively remained intubated and sedated on low dose levo, on clinda, micafugin, zosyn, vanc. S/p take back from reanastomosis, fascial closure, debridement of abdominal wall, and wound vac placement. Patient extubated on 07/05. Wound vac changed on 07/06 with healthy appearing granulation tissue. Tolerating regular diet, demonstrated return of bowel function. Patient medically ready for discharge, pending placement at SNF vs LTACH. Neuro: #Post- operative pain - scheduled tylenol - added PRN oxy 5/10, PRN diluadid CV: #presumed sepsis #CHF most recently EF 50-55% #afib on xarelto, hx of multiple pulmonary embolisms, sp kaycentra - CHADSVASC score of 4 - continue Xarelto - Vitals q4h Resp: - extubated 07/05 - on NC - bronchial hygiene - IS qhr while awake FEN/GI: #incarcerated hernia s/p SURESH, SBR now 10 Days Post-Op reanastomsosis, fascial closure, wound vac placement - Diet: regular - Daily BMP, Mg, Phos - replete as needed - Strict I&Os TID - bowel reg: miralax Endo: - 25 mcg levothyroxine #hyperglycemic overnight, not on insulin at home, A1C 5.4% - SSI and POCT glucose Renal/: - [place] removed 07/06, voiding spontaneously - Cr 0.86 - strict I/O Heme/ID: - Hgb 9.5 - Transfuse if Hgb < 7 - Daily CBC - zosyn, clinda, micafungin- deescalate to unasyn #history of multiple DVTs/Pe's, 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, was on xarelto 15 mg on admission - restarted xarelto at appropriate dose (20 mg) given normal kidney function Msk: - PT/OT - encourage OOB and ambulation Wound care: - wound vac to -125 on abdominal wound - last change 07/09 - due for change today 07/13, by nursing PPX: SCDs, xarelto, protonix Disposition: medically ready for discharge pending placement Staff: Kendrick Wharton, PGY-1 General Surgery [1] [2] 0.9% NaCl 3 mL Intracatheter q8h acetaminophen 650 mg Oral q6h acetylcysteine 3 mL Inhalation q4h WA albuterol-ipratropium 3 mL Inhalation q6h artificial tears Each Eye q8h atorvastatin 80 mg Oral AT BEDTIME chlorhexidine 15 mL Mouth/Throat BID furosemide 40 mg Oral BID insulin aspart 0-6 Units Subcutaneous q4h levothyroxine 25 mcg Oral QDAY AT 0600 pantoprazole EC 40 mg Oral QDAY polyethylene glycol 3350 17 g Oral QDAY rivaroxaban 20 mg Oral QDAY WITH DINNER spironolactone 12.5 mg Oral QDAY [3] SALINE LOCK, INSERT AND MAINTAIN AND 0.9% NaCl AND 0.9% NaCl dextrose IV for hypoglycemia OR dextrose IV for hypoglycemia OR glucagon glucose (Diabetic Use) gel oxyCODONE (immediate release) OR oxyCODONE (immediate release) Cosigned by Rinku Marks MD at 07/13/2025 3:41 PM [employer]LEC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 Associated attestation - Rinku Marks MD - 07/13/2025 3:41 PM 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 Pt seen and examined with team History and exam discussed with ACS chief Labs and films reviewed Agree with above assessments and plan Pt with strangulated bowel perforated into hernia sac Now with open midline wound Wound looks clean Working on SNF placement Please see resident's note for further details. * Cherri Sorensen RN - 07/12/2025 3:02 PM CST Care Coordination Progress Note Expected Discharge Date: 07/16/2025 Discharge Plan: He continues to be on IV ABX and have wound vac. Patients insurance declined LTAC and offered a Peer to peer to be completed today. The medical team now reporting that his care could be managed at SNF level. SW working with family to get SNF choices. Family Support (Name and Phone): Extended Emergency Contact Information Primary Emergency Contact: Dennis Sanderson Mobile Relation: Son Transportation at Discharge: Family: READMISSION RISK SCORE is 16.2 at 3:02 PM 07/12/2025.: Name: Cherri Sorensen RN 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 * Ana Booth RD/ZACK - 07/12/2025 2:56 PM CST Images from the original note were not included. BRIEF SYNOPSIS: Nutrition Risk Identified but does not meet malnutrition criteria. Nutrition Plan: Current diet order: Regular Cardiac diet parameters +Kenji BID for wound healing (provides 180 kcal, 5g collagen pro, 17g CHO, 7gm arginine, 7gm glutamine, 300mg VIT C, 9.5mg zinc) Recommendation to Physician: N/A CLINICAL NUTRITION ASSESSMENT: Pt scheduled for reassessment. TPN discontinued by team. Consuming 100% of meals per documentation which appears adequate. Pt laying in bed upon entering. Reports good appetite and enjoying meals so far. Follows a heart healthy diet at home and has been on GLP receptor agonist to aid weight management. Daughter in room reports she will be bringing medication in for pt during stay. Educated on importance of nutrient dense diet to optimize post surgical outcomes. Pt agreeable to Kenji BID. RD to continue to follow per protocol. Med/Surg History and Clinical Diagnoses: Ventral hernia with perforated and incarcerated bowel S/p 07/01/25 exploratory laparotomy with small bowel resection and soft tissue excisional debridement PMHof congestive heart failure with mild reduced EF of 50-55%, COPD, obstructive sleep apnea ( CPAP compliant), atrial fibrillation on Xarelto, prior pulmonary emboli- 2016, and history of multiple prior hernia repairs Height: 182.9 cm (6' 0.01) BMI: Body mass index is 56.53 kg/m??. BMI Range: Morbidly Obese Class 3IBW/lb (Calculated) Male: 178.048 Recent Weights/Methods 08/13/2014 1124 09/10/2014 1101 07/01/2025 1729 07/02/2025 0644 07/03/2025 0340 Weight: 163.3 kg (360 lb) 166.9 kg (368 lb) 179.2 kg (395 lb) 179.2 kg (395 lb) 189.1 kg (416 lb 14.2 oz) Weight Method : -- -- -- Bed scale Bed scale Unintentional weight change: limited wt hx note wt increase likely fluid related. Net -1.6L fluid balance since admit. Current Parenteral order: d/c'd PO INTAKE Current diet order: Regular Nutrition recommendation: alter/change nutrition order Food Allergies: No known food allergies Last Percent Meal Eaten (%): 100 % (07/12/25 0800) 48 hr PO INTAKE Percent Meal Eaten (%) Av % Min: 90 % Max: 100 % None Pain affecting intake: No Chewing/Swallowing: None GI Concerns: (small bowel resection) Stools: BM x2 in last 24hr Unmeasured Stool Occurrence: 2 (07/11/25 1400) Stool Appearance : Loose;Watery (07/11/25 1400) Skin/Wound: ex lap- wound vac Estimated Needs: KCAL: 2430 (30 kcal/kg IBW) Protein (g): 121 (1.5 g/kg IBW) Fluid (ml): 1 ml/kcal Needs based on: Kcal/kg- (Comment) (IBW 81kg) Recommended Access Route: PO Labs: Reviewed. Elevated LFTs Recent Labs Component Name 07/12/2561307/11/2551807/10/2545507/02/25 2318 07/02/25 1052 07/02/25 0030 07/01/25 1918 NA 142 143 144 - 138 - 138 POTASSIUM 4.0 4.2 4.3 - 3.8 - 5.0* CO2 32* 30* 26 - 22 - 24 BUN 15 18 22 - 47* - 46* CREATININE 0.80 0.85 0.82 - 1.48* - 1.74* GLUCOSE 100* 97 104* - 143* - 90 CALCIUM 8.7 8.4 8.5 - 8.5 - 8.8 ALT 57* - - - 30 - 39 41 ALKPHOS 197* - - - 97 - 112 115 AST 76* - - - 36* - 43* 44* EGFR >90 >90 >90 - 52* - 43* - = values in this interval not displayed. Recent Labs Component Name 07/12/2561307/11/2551807/10/25455 PHOS 2.8 2.8 2.4* Recent Labs Component Name 07/12/2561307/11/2519 07/10/25455 MAGNESIUM 1.9 2.0 2.0 Recent Labs Component Name 07/12/2561307/11/2551807/10/25455 HGB 10.2* 9.0* 9.3* HCT 32.5* 29.2* 29.9* Recent Labs Component Name 07/02/25 003 HGBA1C 5.4 Patient Vitals for the past 30 hrs: Glucose Bedside (mg/dL) 07/12/25 1227 152 mg/dL 07/12/25 1200 152 mg/dL 07/12/25 0852 115 mg/dL 07/11/25 1600 144 mg/dL 07/11/25 1133 126 mg/dL MEDICATIONS FOR CURRENT ENCOUNTER: Meds reviewed. SCHEDULED MEDICATIONS: 0.9% NaCl injection 3 mL, Intracatheter, q8h acetaminophen (Tylenol) tablet 650 mg, Oral, q6h acetylcysteine (Mucomyst) 20 % solution 600 mg, Inhalation, q4h WA albuterol-ipratropium (Duo-Neb) nebulizer solution 3 mL, Inhalation, q4h WA artificial tears ophthalmic ointment, Each Eye, q8h atorvastatin (Lipitor) tablet 80 mg, Oral, AT BEDTIME chlorhexidine (Peridex) 0.12 % oral solution 15 mL, Mouth/Throat, BID furosemide (Lasix) tablet 40 mg, Oral, BID insulin aspart (NovoLOG) pen 0-6 Units, Subcutaneous, q4h levothyroxine (Synthroid) tablet 25 mcg, Oral, QDAY AT 0600 pantoprazole EC (Protonix) tablet 40 mg, Oral, QDAY polyethylene glycol 3350 (Miralax) packet 17 g, Oral, QDAY rivaroxaban (Xarelto) tablet 20 mg, Oral, QDAY WITH DINNER spironolactone (Aldactone) tablet 12.5 mg, Oral, QDAY CONTINUOUS MEDICATIONS: PRN MEDICATIONS: Or Or Or 0.9% NaCl injection 1-10 mL, Intracatheter, PRN dextrose IV 12.5 g, Intravenous, PRN dextrose IV 25 g, Intravenous, PRN glucagon (Glucagen) injection 1 mg, Subcutaneous, PRN glucose (Diabetic Use) oral gel, Oral, PRN oxyCODONE (immediate release) (Roxicodone) tablet 10 mg, Oral, q6h PRN oxyCODONE (immediate release) (Roxicodone) tablet 5 mg, Oral, q6h PRN Edema RLE Edema: Non-pitting (07/11/252014) LLE Edema: Non-pitting (07/11/252014) Nutrition Diagnostic Statement: Increased nutrient needs related to:: increased demands with critical illness as evidenced by:: estimated protein needs .. Nutrition Diagnostic Statement Progress: Nutrition problem continues Nutrition Intervention: Meals and snacks:;Medical Food Supplements:;Nutrition Counseling Education needed: Wound Healing Education Provided: (when appropriate) (07/09/25 1200) Monitoring: I/Os, BM, labs, meds, weight, PO intake Evaluation: Nutrition Goal: Total intake will meet estimated nutrient needs Nutrition Goal Timeframe: Throughout stay Nutrition Goal Progress: Continue with current goal Ascom [id number] 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 * Meagan Pedersen LCSW - 07/12/2025 11:30 AM CST Facility Placement Progress Note Special Needs: bariatric, IV antibiotics, abdominal wound vac Patient Goal (short term and half-way): LTACH vs SNF Actual Level of Care/Dispostion Details Spoke with (Phone number, if not patient. Family participation encouraged): Patient and dtr Bobbi Family Contacted: Yes List of facilities provided (within patient and geographic preference): Yes Referrals initiated: Continued Care and Services - Admitted Since 07/01/2025 Destination Service Provider Request Status Services Address Referrals Phone Referrals Fax Patient Preferred [facility] Harp Repairer Acute Care Accepted Primary: [facility]p Rep[facility] Acute Care [address] [facility] [address] [phone] -- [facility] Harp Repairer Acute Care Pending - Request Sent Primary: [facility] Acute Care [address] [facility] [address] [phone] -- [facility] Group Home Pending - Request Sent Primary: Group Home [address] [facility] [address] [phone] -- [facility] Group Home Pending - Request Sent Primary: Group Home [address] [address] [phone] -- [facility] Group Home Pending - Request Sent Primary: Group Home [address] [facility] [address] -- [facility] Group Home Pending - Request Sent Primary: Group Home [address] [facility] [address] [phone] -- [facility] Pending - Request Sent Primary: Senior Care [address], [facility] [address] [phone] -- If Medicare-3 day qualifying stay verified: Yes monitoring facility responses Comments:SW met with pt and dtr at bedside (Bobbi [phone]) to f/u on plan B SNF options. SW sent list of options to pt's son Dennis on 07/11. Family has not picked any facility options yet.SW provided pt and dtr another list of SNF options for review. 1655: KENNETH L/M for pt's dtr to f/u on SNF choice. KENNETH sent appropriate SNF referrals while waiting on choice Name: Meagan Pedersen LCSW Phone: [phone] 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 * Anne Reyes MD - 07/12/2025 6:19 AM CST Images from the original note were not included. ACUTE CARE SURGERY PROGRESS NOTE Encounter Date: 07/12/2025 Serjio Sanderson Date of : 1960 . Age: [age] year old Room: [facility] Admit Date: 07/01/2025 5:24 PM Hospital Day: Hospital Day: 11 History of Present Illness: Copied forward from H&P Serjio Sanderson is a 64 year old male W Pmhx CHF, COPD, afib, DVT/PE on Xarelto (last taken 06/30), who presented with signs of an incarcerated, strangulated and perforated ventral hernia with overlying skin changes. After long discussion of risks and benefits (see note from Dr. Bermudez on 07/01), kaushik joyce was taken to the OR late evening of 07/01 and was found to have 6cm x 6cm ventral hernia withincarcerated bowel with large amount of stool encountered, surrounding soft tissue with component of necrotizing soft tissue infection requiring excisional debridement of [id number], small bowel perforation resected and then left in discontinuity with Abthera placed. Procedures: 07/01- lysis of adhesions, SBR, soft tissue excisional debridement, Abthera placement 07/03- SBR, anastomosis, fascial defect closed, wound vac placement Interval: No acute events overnight AF, hemodynamically stable Abdomen soft, non tender Tolerating regular diet Passing flatus, 2x bowel movements yesterday OBJECTIVE Vital signs: Temp: [97.6 ??F (36.4 ??C)-98.6 ??F (37 ??C)] Pulse: [73-124] Resp: [15-22] BP: (127-159)/(66-96) O2 %: [50 %] SpO2: [83 %-100 %] Input and Output: Date 07/11/25 07 - 07/12/25 0659 07/12/25 0700 - 07/13/25 0659 Shift 8249-6082 4586-3044 2832-9899 24 Hour Total 9763-4555 3037-8583 7274-0444 24 Hour Total INTAKE P.O. 240 120 360 Shift Total(mL/kg) 240(1.3) 120(0.6) 360(1.9) OUTPUT Urine(mL/kg/hr) 1200(0.8) 1200 Shift Total(mL/kg) 1200(6.3) 1200(6.3) NET 240 -1080 -840 Weight (kg) 189.1 189.1 189.1 189.1 189.1 189.1 189.1 189.1 Diet: DIET REGULAR Physical Examination: Gen: alert, no acute distress HEENT: AT/NC, EOMI CV: RRR Pulm: non labored respirations on NC Abd: Soft, wound vac in place with serosanginous output MSK: WWP, 1+ pitting edema bilateral lower extremities Neuro: no focal deficits, moving all extremities Psych: appropriate mood and affect Data Review: LABS: Recent Labs Component Name 07/11/25 0519 07/10/25 0456 07/09/25 0330 WBC 10.6 13.3* 12.8* HGB 9.0* 9.3* 8.9* HCT 29.2* 29.9* 29.7* MCV 104.3* 105.3* 110.6* Recent Labs Component Name 07/11/25 0519 07/10/25 0456 07/09/25 0612 07/09/25 0330 CALCIUM 8.4 8.5 8.4 - PHOS 2.8 2.4* - 7.8* Recent Labs Component Name 07/11/25 0519 07/10/25 0456 07/09/25 0612 NA 143 144 142 CL 108* 111* 111* CO2 30* 26 27 BUN 18 22 25 CREATININE 0.85 0.82 0.81 Recent Labs Component Name 07/02/25 1052 07/01/25 1918 PROT 5.1* 6.2 6.5 ALB 1.5* 2.1* 2.1* ALKPHOS 97 112 115 AST 36* 43* 44* ALT 30 39 41 TBILI 2.2* 1.8* 1.8* DBILI 1.6* 1.3* Recent Labs Component Name 07/11/25 0507/10/25 0456 07/09/25 1037 07/09/25 0330 PT 31.0* 28.1* - 17.8* INR 3.0 2.7 - 1.5 PTT 42.9* 40.2* 86.0* 78.5* No results for input(s): CKTOTAL, CKMBCK2, TROPONINI in the last 01951 hours. No results for input(s): TACROLIMUS, TACROCARDIO, TACROGASTRO, TACRONEPHRO in the last 87538 hours. Microbiology: Microbiology Results (Displays last 21 days for this encounter ONLY) Procedure Component Value - Date/Time CULTURE FUNGUS OTHER+FUNGUS SMEAR [[id number]] (Normal) Collected: 07/05/25 1047 Lab Status: Preliminary result Specimen: Microbiology from Lung Washing Updated: 07/09/25 1154 Culture No fungus isolated Fungus Stain No yeast or hyphae seen No Pneumocystis jirovecii CULTURE BRONCHIAL WASHING+GRAM STAIN [[id number]] Collected: 07/05/25 1046 Lab Status: Final result Specimen: Microbiology from Lung, Left Lower Lobe Updated: 07/07/25 0729 Culture No growth Gram Stain Light Polymorphonuclear cells No organisms seen MRSA PCR [[id number]] (Normal) Collected: 07/02/25 0031 Lab Status: Final result Specimen: Microbiology from Nasal Updated: 07/02/25 0601 MRSA DNA by PCR Not detected Narrative: Methicillin-resistant Staphylococcus aureus (MRSA) DNA is not detected (presumed not colonized withMRSA). CULTURE FLUID+GRAM STAIN [[id number]] (Abnormal) (Susceptibility) Collected: 07/01/252349 Lab Status: Final result Specimen: Other from Peritoneal Fluid Updated: 07/10/25 0732 Culture Heavy Escherichia coli Heavy Streptococcus anginosus Rare Naida krusei Comment: [facility] Referred to [facility] [place] [place] [id number] See separate reference laboratory report Gram Stain Light Polymorphonuclear cells Heavy Gram-positive cocci Heavy Gram-negative bacilli Moderate Gram-positive bacilli Rare Yeast Susceptibility Escherichia coli (1) Antibiotic Interpretation Microscan Method Status Amikacin Susceptible <=2 ug/mL SHAMAR Final Ampicillin Susceptible 4 ug/mL SHAMAR Final Ampicillin-sulbactam Susceptible <=2 ug/mL SHAMAR Final Cefazolin See Comment* <=4 ug/mL SHAMAR Final Cefepime Susceptible <=1 ug/mL SHAMAR Final Ceftriaxone Susceptible <=1 ug/mL SHAMAR Final Ciprofloxacin Susceptible <=0.25 ug/mL SHAMAR Final Gentamicin Susceptible <=1 ug/mL SHAMAR Final Meropenem Susceptible <=0.25 ug/mL SHAMAR Final Piperacillin-tazobactam Susceptible <=4 ug/mL SHAMAR Final Tobramycin Susceptible <=1 ug/mL SHAMAR Final Trimethoprim-sulfamethoxazole Susceptible <=20 ug/mL SHAMAR Final Susceptibility Comments *Cefazolin SHAMAR of </=4 cannot distinguish between susceptible or intermediate for systemic breakpoints. If further defined interpretation is needed, call Microbiology and a disk diffusion test will be performed. Streptococcus anginosus (2) Antibiotic Interpretation Microscan Method Status Ampicillin Susceptible <=0.25 ug/mL SHAMAR Final Cefotaxime Susceptible <=0.12 ug/mL SHAMAR Final Ceftriaxone Susceptible 0.25 ug/mL SHAMAR Final Clindamycin Susceptible <=0.25 ug/mL SHAMAR Final Levofloxacin Susceptible <=0.25 ug/mL SHAMAR Final Penicillin G Susceptible <=0.06 ug/mL SHAMAR Final Tetracycline Susceptible 0.5 ug/mL SHAMAR Final Vancomycin Susceptible 0.5 ug/mL SHAMAR Final CULTURE ANAEROBE [[id number]] (Abnormal) Collected: 07/01/252349 Lab Status: Final result Specimen: Microbiology from Peritoneal Fluid Updated: 07/08/25 1013 Culture Moderate Phocaeicola (formerly Bacteroides) vulgatus Comment: Beta-lactamase positive Moderate Prevotella denticola Comment: Beta-lactamase negative Moderate Clostridium paraputrificum Comment: Beta-lactamase negative Moderate Finegoldia magna Narrative: Caution: The absence of beta-lactamase does not mean that the organism is susceptible to beta-lactams. Isolates may still be resistant to beta-lactams by a mechanism other than beta-lactamase production. CULTURE FUNGUS OTHER+FUNGUS SMEAR [[id number]] (Abnormal) Collected: 07/01/252349 Lab Status: Preliminary result Specimen: Microbiology from Peritoneal Fluid Updated: 07/09/25 1438 Culture Critical direct smear result Fungus Stain Rare Yeast budding SUSCEPTIBILITY FUNGUS/YEAST [[id number]] Collected: 07/01/252349 Lab Status: Final result Specimen: Other from Peritoneal Fluid Updated: 07/09/25 1824 Prelim Report SEE NOTE Comment: Specimen received and in progress. INTERPRETIVE INFORMATION: Susceptibility, Fungal (Yeasts and Molds) Units = ug/mL YSTMIC Amphotericin B 1 None Rezafungin 0.016 Suscept Anidulafungin 0.03 Suscept Micafungin 0.12 Suscept Voriconazole 0.25 Suscept Isavuconazole 0.25 None Posaconazole 0.25 None Itraconazole 0.25 None Fluconazole Resist Caspofungin 0.25 Suscept Performed By: [facility] [address] [place] [address] Regulatory Product Manager: Chava Osborne MD, PhD CLIA Number: [id number] Final Report SEE NOTE Comment: Pichia eyadiavzevii (Previously Naida krusei) Organism identified by client INTERPRETIVE INFORMATION: Susceptibility, Fungal (Yeasts and Molds) Units = ug/mL YSTMIC Amphotericin B 1 None Rezafungin 0.016 Suscept Anidulafungin 0.03 Suscept Micafungin 0.12 Suscept Voriconazole 0.25 Suscept Isavuconazole 0.25 None Posaconazole 0.25 None Itraconazole 0.25 None Fluconazole Resist Caspofungin 0.25 Suscept Performed By: [facility] [address] [place] [address] Regulatory Product Manager: Chava Osborne MD, PhD CLIA Number: [id number] Narrative: SHAMAR=Minimum Inhibitory Concentration MEC=Minimum Effective Concentration SHAMAR=Minimum Inhibitory Concentration MEC=Minimum Effective Concentration SHAMAR=Minimum Inhibitory Concentration MEC=Minimum Effective Concentration SHAMAR=Minimum Inhibitory Concentration MEC=Minimum Effective Concentration SHAMAR=Minimum Inhibitory Concentration MEC=Minimum Effective Concentration SHAMAR=Minimum Inhibitory Concentration MEC=Minimum Effective Concentration Radiology Impressions: CT Chest Wo Contrast Result Date: 07/04/2025 IMPRESSION: Atelectasis of the lower lobe of the left lung and dependent upper lobe associated withthe decrease volume of the left hemithorax and leftward shift of the heart and mediastinum. Mild dependent atelectasis in the right lung base. Partially imaged upper abdomen shows ventral hernia. > Interpreting Provider: Tray Jarvis MD on 07/04/2025 9:55 AM Medications: -Infusions: Medications[1] -Scheduled Medications: Medications[2] -PRN Medications: Medications[3] Problem List: Incarcerated ventral hernia (POA: Yes) Generalized abdominal pain (POA: Yes) Necrotizing soft tissue infection (POA: No) Peritonitis (HCC) (POA: Yes) Acute hypoxic respiratory failure (HCC) (POA: No) Septic shock (HCC) (POA: Yes) LARISA (acute kidney injury) (POA: Yes) Chronic atrial fibrillation (HCC) (POA: Yes) Chronic anticoagulation (POA: Yes) Diastolic congestive heart failure (HCC) (POA: Yes) Morbid (severe) obesity due to excess calories (HCC) (POA: Yes) Obstructive sleep apnea (POA: Yes) Hypothyroidism (POA: Yes) Cardiomegaly (POA: Yes) Assessment and Plan: Serjio Sanderson is a 64 year old male with PMH of CHF, YEN, A fib on Xarelto (last dose 06/30), three pulmonary embolisms (last in 2011), non specific thyroid condition. Presented with two day history of abdominal pain, with overlying skin ischemia, and CT from OSH with complicated abdominal hernia with fluid collection and soft tissue gas. Now s/p exploratory laparotomy, lysis of adhesions, small bowel resection, skin debridement and Abthera placement. Take back on hospital day 2, patient underwent reanastomosis, fascial closure, debridement of abdominal wall, and wound vac placement. Post operatively remained intubated and sedated on low dose levo, on clinda, micafugin, zosyn, vanc. S/p take back from reanastomosis, fascial closure, debridement of abdominal wall, and wound vac placement. Patient extubated on 07/05. Wound vac changed on 07/06 with healthy appearing granulation tissue. Tolerating regular diet, demonstrated return of bowel function. Patient medically ready for discharge, pending placement at SNF vs LTACH. Neuro: #Post- operative pain - scheduled tylenol - added PRN oxy 01/06, PRN diluadid CV: #presumed sepsis #CHF most recently EF 50-55% #afib on xarelto, hx of multiple pulmonary embolisms, sp kaycentra - CHADSVASC score of 4 - continue Xarelto - Vitals q4h Resp: - extubated 07/05 - on NC - bronchial hygiene - IS qhr while awake FEN/GI: #incarcerated hernia s/p SURESH, SBR now 9 Days Post-Op reanastomsosis, fascial closure, wound vac placement - Diet: regular - Daily BMP, Mg, Phos - replete as needed - Strict I&Os TID - bowel reg: miralax Endo: - 25 mcg levothyroxine #hyperglycemic overnight, not on insulin at home, A1C 5.4% - SSI and POCT glucose Renal/: - [place] removed 07/06, voiding spontaneously - Cr 0.85 - strict I/O Heme/ID: - Hgb 9.0 - Transfuse if Hgb < 7 - Daily CBC - zosyn, clinda, micafungin- deescalate to unasyn Msk: - PT/OT - encourage OOB and ambulation Wound care: - wound vac to -125 on abdominal wound - last change 07/09 PPX: SCDs, xarelto, protonix Disposition: medically ready for discharge pending placement Staff: Kendrick Reyes, PGY-1 General Surgery [1] [2] 0.9% NaCl 3 mL Intracatheter q8h acetaminophen 650 mg Oral q6h acetylcysteine 3 mL Inhalation q4h WA albuterol-ipratropium 3 mL Inhalation q4h WA artificial tears Each Eye q8h atorvastatin 80 mg Oral AT BEDTIME chlorhexidine 15 mL Mouth/Throat BID furosemide 40 mg Oral BID insulin aspart 0-6 Units Subcutaneous q4h levothyroxine 25 mcg Oral QDAY AT 0600 pantoprazole EC 40 mg Oral QDAY polyethylene glycol 3350 17 g Oral QDAY rivaroxaban 20 mg Oral QDAY WITH DINNER spironolactone 12.5 mg Oral QDAY [3] SALINE LOCK, INSERT AND MAINTAIN AND 0.9% NaCl AND 0.9% NaCl dextrose IV for hypoglycemia OR dextrose IV for hypoglycemia OR glucagon glucose (Diabetic Use) gel HYDROmorphone oxyCODONE (immediate release) OR oxyCODONE (immediate release) Cosigned by Rinku Marks MD at 07/12/2025 5:09 PM ELEC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 Associated attestation - Rinku Marks MD - 07/12/2025 5:09 PM ELEC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 Pt seen and examined with team History and exam discussed with ACS chief Labs and films reviewed Agree with above assessments and plan Pt doing well Midline wound looking clean Continue dressing changes Working on placement Please see resident's note for further details. * Meagan Pedersen LCSW - 07/11/2025 3:23 PM CST LTACH approval denied by [facility]. Rajendra roper MD to complete SW spoke with pt's son Dennis to discuss dc planning. KENNETH discussed plan B SNF options, list providedvia email to [email or web address] and pt's son to pick top 5 choices. Meagan Pedersen LCSW P:[phone] F:[phone] 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 * Stewart Palmer - 07/11/2025 1:51 PM CST [facility] Physical Therapy Progress Note Patient: Serjio Sanderson [facility] Record Number: [id number] Date of : 1960 Age: [age] year old PPE worn by staff: gloves;mask - procedural PPE worn by patient: gown - patient, clean;socks - clean Co-treatment with OT due to level of skilled assistance required Recommendations: Discharge PT Discharge Recommendations: Patient would benefit from multidisciplinary therapy This recommendation is made due to ongoing PT functional needs: address care for self in the home;address functional deficits Patient is being recommended for post acute care, therefore DME recommendations will be made at thenext level of care. SUBJECTIVE: Subjective: Pt agreeable and motivated to work with therapy this date PATIENT GOALS / WHAT MATTERS MOST TO THE PATIENT: Patient's Primary Concern: to get better Pain Assessment: Pain Assessment Pain Scale/Observation: No/denies pain PRECAUTIONS: Weight Bearing Status: (no WB restrictions) Activity Level: Up with Assist OBJECTIVE: At start of therapy session, patient found in bed and with no alarm General Appearance: 64 y.o. male found in bed, NAD Vitals: (*Assess the 3 levels of oxygen saturations both for room air and 02 unless rest on room air is 88% or less). Rest BP: 139/102 (111) HR: 94 Sp02 Sp02 97% 91-93% 3L O2 1L O2 EOB BP: HR: Sp02 95% 93% 1l o2 Room Air After standing BP: HR: Sp02 87%-94% RA Post Activity BP: 132/87 (101) HR: 86 Sp02 Sp02 92% 2L O2 Observations: Patient found on 3L O2. Patient able to maintain at SpO2 while at rest when seated EOB prior to stand attmept. Patient desated to 87% following standing attempt and would intermittentlydesat while seated EOB with conversation, requiring 2L O2 to maintain SpO2 >88%. Patient left on2L O2 at end of session. Mental Status/Cognition: Orientation Level: (A&Ox4) Cognition: (A&Ox4) Attention Span: Attends with cues to redirect Memory: Appears intact Following Commands: Follows one step commands consistently Safety Judgement: Decreased awareness of need for safety Awareness of Errors: Decreased awareness of deficits Mobility: A gait belt and non-slip socks were used for all out of bed activity this date. Bed Mobility: Supine to Sit: Moderate Assistance;X 2;Requires Verbal Cues for Technique with HOB in semi-fowlers position Sit to Supine: Maximum Assistance;X 2 Transfers: Sit to Stand: Maximum Assistance;X 2 (Attempted 1 stand trial. Unable to clear buttock from bed with MaxA x2. Patient demostrated good rocking control while seated EOB to generate momentum prior to stand attempt.) Transfer Device: Gait belt Gait: Weight Bearing Status: (no WB restrictions) Balance: Balance Scales/Tests Used: Sitting: Static/Dynamic;Standing: Static/Dynamic Sitting - Static: Fair;With Both Upper Extremity's Support Sitting - Dynamic: Fair -;With Both Upper Extremity's Support ACTIVITY TOLERANCE: Activity Tolerance: Tolerates sitting more than 5 minutes TREATMENT/INTERVENTIONS: strengthening exercises, bed mobility training, transfer training, balanceactivities, and monitoring of vitals AM-PAC 6 Clicks Mobility Raw Score:: 8 EDUCATION: While performing PT, Patient was instructed in:functional mobility training, safety awareness/fall precautions , discharge planning, use of call light Presented to patient who demonstrates Fair understanding of instructions given. ASSESSMENT: Patient would benefit from additional Physical Therapy sessions to achieve the following functionalgoals to enhance independence. Short Term Goals: Goal Formation With patient Patient will perform bed mobility with minimal assist and X 2 (updated 07/11) Patient will transfer sit to/from stand with maximal assist, X 2, and with least restrictive assistive device Patient will transfer bed to/from chair with maximal assist, X 2, and with least restrictive assistive device Harp Repairer Goal(s): Patient to discharge to appropriate next level of inpatient care. INFORMED CONSENT TO TREATMENT: Plan of care including recommended therapy, goals and frequency, discussed with patient who understands and agrees to proceed. Equipment Issued: none Plan: Patient continues to benefit from skilled therapy services., Goals updated this date. If patient is discharged from the facility, this note serves as a discharge summary if further physical therapy visits did not occur. Refer to filed flowsheet for further details. Following therapy session, patient left in bed, with bed alarm on , with family in room, with therapy cues visible on white board, with fall mats in place, all lines/tubes intact. Cosigned by Malathi Rodriguez, PT at 07/11/2025 4:03 PM ELEC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 * Janet Vazquez [place], OT - 07/11/2025 1:49 PM CST [facility] Occupational Therapy Progress Note Patient: Serjio Sanderson Med Record Number: [id number] Date of : 1960 Age: [age] year old PPE worn by staff: gloves;mask - procedural PPE worn by patient: gown - patient, clean;socks - clean Tech: na; seen with PT Recommendations: Discharge OT Discharge Recommendations: Patient would benefit from multidisciplinary therapy This recommendation is made due to ongoing OT functional needs: address care for self in the home;address functional deficits Nurse and Physical Therapy contacted regarding patient status and/or discharge plan. Activity Level: as tolerated PRECAUTIONS: Weight Bearing Status: Lower Extremity;Upper Extremity Weight Bearing: WBAT SUBJECTIVE: Subjective: Pt agreeable throughout What matters most to this patient? To get stronger Pain Assessment: Pain Assessment Pain Scale/Observation: No/denies pain OBJECTIVE: At start of therapy session, patient found in bed General Appearance: 64 y/o male, supine NAD Vitals: (*Assess the 3 levels of oxygen saturations both for room air and 02 unless rest on room air is 88% or less). Rest BP: 139/102 (111) HR: 94 Sp02 Sp02 97% 91-93% 3L O2 1L O2 EOB BP: HR: Sp02 95% 93% 1l o2 Room Air After standing BP: HR: Sp02 87%-94% RA Post Activity BP: 132/87 (101) HR: 86 Sp02 Sp02 92% 2L O2 Observations: Patient found on 3L O2. Patient able to maintain at SpO2 while at rest when seated EOB prior to stand attmept. Patient desated to 87% following standing attempt and would intermittentlydesat while seated EOB with conversation, requiring 2L O2 to maintain SpO2 >88%. Patient left on2L O2 at end of session. Mental Status/Cognition: Orientation Level: (A&Ox4) Cognition: (A&Ox4) Attention Span: Attends with cues to redirect Memory: Appears intact Following Commands: Follows one step commands consistently Safety Judgement: Decreased awareness of need for safety Awareness of Errors: Assistance required to identify errors made Problem Solving: Assistance required to identify errors made Mobility: a gait belt and non-slip socks were used for all out of bed activity this date. Bed Mobility: Rolling: Activity Does Not Occur Supine to Sit: Moderate Assistance;X 2;Requires Verbal Cues for Technique with HOB in semi-fowlers position Sit to Supine: Maximum Assistance;X 2 Transfers: Sit to Stand: Maximum Assistance;X 2 (Attempted 1 stand trial. Unable to clear buttock from bed with MaxA x2. Patient demostrated good rocking control while seated EOB to generate momentum prior to stand attempt.) Transfer Device: Gait belt Balance: Balance Scales/Tests Used: Sitting: Static/Dynamic Sitting - Static: Fair;With Both Upper Extremity's Support Sitting - Dynamic: Fair -;With Both Upper Extremity's Support Standing - Static: Not tested Standing - Dynamic: Not tested Comments: Activities of Daily Living: Feeding: Activity Does Not Occur Oral Facial Hygiene: Stand By Assist (to wash face while seated EOB) Bathing: Activity Does Not Occur Upper Body Dressing: Activity Does Not Occur Lower Body Dressing: Maximal Assistance (to manage socks and multi podus boots) Toileting: Activity Does Not Occur Splint Issued/Checked: none ACTIVITY TOLERANCE: Activity Tolerance: Requires rest breaks;Tolerates sitting more than 5 minutes AM-PAC 6 Clicks Daily Activity Raw Score:: 12 TREATMENT/INTERVENTIONS: ADL training Functional transfer training Endurance training Bed mobility Safety awareness EDUCATION: While performing OT, Patient was instructed in:functional mobility training, self-care training, safety awareness/fall precautions Presented to patient who demonstrates Fair understanding of instructions given. INFORMED CONSENT TO TREATMENT: Plan of care including recommended therapy, goals and frequency, discussed with patient who understands and agrees to proceed. ASSESSMENT: Functional performance limited due to: limited activities of daily living, decreased functional mobility, decreased functional balance, and decreased endurance and activity tolerance. Patient continues to benefit from skilled Occupational Therapy to achieve the following functional goals. Short Term Goals: Goal Formation With patient Patient will perform grooming at edge of bed and with stand by assist Patient will perform upper extremity dressing with minimal assist Patient will perform supine to/from sit with maximal assist Patient will transfer sit to stand with maximal assist Senior Living Goal(s): Patient to discharge to appropriate next level of inpatient care Plan: Patient continues to benefit from skilled therapy services., Continue with goals as established. If patient is discharged from the facility, this note serves as a discharge summary if further occupational therapy visits did not occur. Refer to filed flowsheet for further details. Following therapy session, patient left in bed, with call light within reach, with family in room, with RN, Suyapa aware, with therapy cues visible on white board. 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 * Erinn Murillo MD - 07/11/2025 9:56 AM CST Images from the original note were not included. ACUTE CARE SURGERY PROGRESS NOTE Encounter Date: 07/11/2025 Serjio Sanderson Date of : 1960 . Age: [age] year old Room: 8/ Admit Date: 07/01/2025 5:24 PM Hospital Day: Hospital Day: 10 History of Present Illness: Copied forward from H&P Serjio Sanderson is a 64 year old male W Pmhx CHF, COPD, afib, DVT/PE on Xarelto (last taken 06/30), who presented with signs of an incarcerated, strangulated and perforated ventral hernia with overlying skin changes. After long discussion of risks and benefits (see note from Dr. Bermudez on 07/01), kaushik joyce was taken to the OR late evening of 07/01 and was found to have 6cm x 6cm ventral hernia withincarcerated bowel with large amount of stool encountered, surrounding soft tissue with component of necrotizing soft tissue infection requiring excisional debridement of [id number], small bowel perforation resected and then left in discontinuity with Abthera placed. Procedures: 07/01- lysis of adhesions, SBR, soft tissue excisional debridement, Abthera placement 07/03- SBR, anastomosis, fascial defect closed, wound vac placement Interval: No acute events overnight AF, hemodynamically stable [place] 225 Tolerating regular diet OBJECTIVE Vital signs: Temp: [97.4 ??F (36.3 ??C)-98.5 ??F (36.9 ??C)] Pulse: [34-99] Resp: [15-24] BP: (122-155)/(61-88) O2 %: [50 %] SpO2: [88 %-100 %] Input and Output: Date 07/10/25 0700 - 07/11/25 0659 07/11/25 07 - 07/12/25 0659 Shift 3391-2912 6278-7546 8214-2745 24 Hour Total 9917-9492 8010-1474 5194-9513 24 Hour Total INTAKE P.O. 823 285 8497 120 120 Shift Total(mL/kg) 750(4) 300(1.6) 1050(5.6) 120(0.6) 120(0.6) OUTPUT Urine(mL/kg/hr) 1750(1.2) 500(0.3) 350(0.2) 2600(0.6) Drains 175 50 0 225 Shift Total(mL/kg) 1925(10.2) 550(2.9) 350(1.9) 2825(14.9) [facility]1175 -250 -350 -1775 120 120 Weight (kg) 189.1 189.1 189.1 189.1 189.1 189.1 189.1 189.1 Diet: DIET REGULAR Physical Examination: Gen: alert, no acute distress HEENT: AT/NC, EOMI CV: RRR Pulm: non labored respirations on NC Abd: Soft, wound vac in place with serosanginous output MSK: WWP, 1+ pitting edema bilateral lower extremities Neuro: no focal deficits, moving all extremities Psych: appropriate mood and affect Data Review: LABS: Recent Labs Component Name 07/11/2551807/10/256 07/09/25 0330 WBC 10.6 13.3* 12.8* HGB 9.0* 9.3* 8.9* HCT 29.2* 29.9* 29.7* MCV 104.3* 105.3* 110.6* Recent Labs Component Name 07/11/2551807/10/256 07/09/25 0612 07/09/25 0330 CALCIUM 8.4 8.5 8.4 - PHOS 2.8 2.4* - 7.8* Recent Labs Component Name 07/11/2551807/10/256 07/09/25 0612 NA 143 144 142 CL 108* 111* 111* CO2 30* 26 27 BUN 18 22 25 CREATININE 0.85 0.82 0.81 Recent Labs Component Name 07/02/25 1052 07/01/25 1918 PROT 5.1* 6.2 6.5 ALB 1.5* 2.1* 2.1* ALKPHOS 97 112 115 AST 36* 43* 44* ALT 30 39 41 TBILI 2.2* 1.8* 1.8* DBILI 1.6* 1.3* Recent Labs Component Name 07/11/25 0519 07/10/25 0456 07/09/25 1037 07/09/25 0330 PT 31.0* 28.1* - 17.8* INR 3.0 2.7 - 1.5 PTT 42.9* 40.2* 86.0* 78.5* No results for input(s): CKTOTAL, CKMBCK2, TROPONINI in the last 69243 hours. No results for input(s): TACROLIMUS, TACROCARDIO, TACROGASTRO, TACRONEPHRO in the last 40802 hours. Microbiology: Microbiology Results (Displays last 21 days for this encounter ONLY) Procedure Component Value - Date/Time CULTURE FUNGUS OTHER+FUNGUS SMEAR [[id number]] (Normal) Collected: 07/05/25 1047 Lab Status: Preliminary result Specimen: Microbiology from Lung Washing Updated: 07/09/25 1154 Culture No fungus isolated Fungus Stain No yeast or hyphae seen No Pneumocystis jirovecii CULTURE BRONCHIAL WASHING+GRAM STAIN [[id number]] Collected: 07/05/25 1046 Lab Status: Final result Specimen: Microbiology from Lung, Left Lower Lobe Updated: 07/07/25 0729 Culture No growth Gram Stain Light Polymorphonuclear cells No organisms seen MRSA PCR [[id number]] (Normal) Collected: 07/02/25 0031 Lab Status: Final result Specimen: Microbiology from Nasal Updated: 07/02/25 0601 MRSA DNA by PCR Not detected Narrative: Methicillin-resistant Staphylococcus aureus (MRSA) DNA is not detected (presumed not colonized withMRSA). CULTURE FLUID+GRAM STAIN [[id number]] (Abnormal) (Susceptibility) Collected: 07/01/25 2350 Lab Status: Final result Specimen: Other from Peritoneal Fluid Updated: 07/10/25 0732 Culture Heavy Escherichia coli Heavy Streptococcus anginosus Rare Naida krusei Comment: Referred to [facility] for susceptibility Referred to [facility] [address] [place] [id number] See separate reference laboratory report Gram Stain Light Polymorphonuclear cells Heavy Gram-positive cocci Heavy Gram-negative bacilli Moderate Gram-positive bacilli Rare Yeast Susceptibility Escherichia coli (1) Antibiotic Interpretation Microscan Method Status Amikacin Susceptible <=2 ug/mL SHAMAR Final Ampicillin Susceptible 4 ug/mL SHAMAR Final Ampicillin-sulbactam Susceptible <=2 ug/mL SHAMAR Final Cefazolin See Comment* <=4 ug/mL SHAMAR Final Cefepime Susceptible <=1 ug/mL SHAMAR Final Ceftriaxone Susceptible <=1 ug/mL SHAMAR Final Ciprofloxacin Susceptible <=0.25 ug/mL SHAMAR Final Gentamicin Susceptible <=1 ug/mL SHAMAR Final Meropenem Susceptible <=0.25 ug/mL SHAMAR Final Piperacillin-tazobactam Susceptible <=4 ug/mL SHAMAR Final Tobramycin Susceptible <=1 ug/mL SHAMAR Final Trimethoprim-sulfamethoxazole Susceptible <=20 ug/mL SHAMAR Final Susceptibility Comments *Cefazolin SHAMAR of </=4 cannot distinguish between susceptible or intermediate for systemic breakpoints. If further defined interpretation is needed, call Microbiology and a disk diffusion test will be performed. Streptococcus anginosus (2) Antibiotic Interpretation Microscan Method Status Ampicillin Susceptible <=0.25 ug/mL SHAMAR Final Cefotaxime Susceptible <=0.12 ug/mL SHAMAR Final Ceftriaxone Susceptible 0.25 ug/mL SHAMAR Final Clindamycin Susceptible <=0.25 ug/mL SHAMAR Final Levofloxacin Susceptible <=0.25 ug/mL SHAMAR Final Penicillin G Susceptible <=0.06 ug/mL SHAMAR Final Tetracycline Susceptible 0.5 ug/mL SHAMAR Final Vancomycin Susceptible 0.5 ug/mL SHAMAR Final CULTURE ANAEROBE [[id number]] (Abnormal) Collected: 07/01/252349 Lab Status: Final result Specimen: Microbiology from Peritoneal Fluid Updated: 07/08/25 1013 Culture Moderate Phocaeicola (formerly Bacteroides) vulgatus Comment: Beta-lactamase positive Moderate Prevotella denticola Comment: Beta-lactamase negative Moderate Clostridium paraputrificum Comment: Beta-lactamase negative Moderate Finegoldia magna Narrative: Caution: The absence of beta-lactamase does not mean that the organism is susceptible to beta-lactams. Isolates may still be resistant to beta-lactams by a mechanism other than beta-lactamase production. CULTURE FUNGUS OTHER+FUNGUS SMEAR [[id number]] (Abnormal) Collected: 07/01/252349 Lab Status: Preliminary result Specimen: Microbiology from Peritoneal Fluid Updated: 07/09/25 1438 Culture Critical direct smear result Fungus Stain Rare Yeast budding SUSCEPTIBILITY FUNGUS/YEAST [[id number]] Collected: 07/01/252349 Lab Status: Final result Specimen: Other from Peritoneal Fluid Updated: 07/09/25 1824 Prelim Report SEE NOTE Comment: Specimen received and in progress. INTERPRETIVE INFORMATION: Susceptibility, Fungal (Yeasts and Molds) Units = ug/mL YSTMIC Amphotericin B 1 None Rezafungin 0.016 Suscept Anidulafungin 0.03 Suscept Micafungin 0.12 Suscept Voriconazole 0.25 Suscept Isavuconazole 0.25 None Posaconazole 0.25 None Itraconazole 0.25 None Fluconazole Resist Caspofungin 0.25 Suscept Performed By: [facility] [address] [place] [address] Regulatory Product Manager: Chava Osborne MD, PhD CLIA Number: [id number] Final Report SEE NOTE Comment: Pichia eyadiajoaniezevii (Previously [place] krusei) Organism identified by client INTERPRETIVE INFORMATION: Susceptibility, Fungal (Yeasts and Molds) Units = ug/mL YSTMIC Amphotericin B 1 None Rezafungin 0.016 Suscept Anidulafungin 0.03 Suscept Micafungin 0.12 Suscept Voriconazole 0.25 Suscept Isavuconazole 0.25 None Posaconazole 0.25 None Itraconazole 0.25 None Fluconazole Resist Caspofungin 0.25 Suscept Performed By: [facility] [address] [place] [address] Regulatory Product Manager: Chava Osborne MD, PhD CLIA Number: [id number] Narrative: SHAMAR=Minimum Inhibitory Concentration MEC=Minimum Effective Concentration SHAMAR=Minimum Inhibitory Concentration MEC=Minimum Effective Concentration SHAMAR=Minimum Inhibitory Concentration MEC=Minimum Effective Concentration SHAMAR=Minimum Inhibitory Concentration MEC=Minimum Effective Concentration SHAMAR=Minimum Inhibitory Concentration MEC=Minimum Effective Concentration SHAMAR=Minimum Inhibitory Concentration MEC=Minimum Effective Concentration Radiology Impressions: CT Chest Wo Contrast Result Date: 07/04/2025 IMPRESSION: Atelectasis of the lower lobe of the left lung and dependent upper lobe associated withthe decrease volume of the left hemithorax and leftward shift of the heart and mediastinum. Mild dependent atelectasis in the right lung base. Partially imaged upper abdomen shows ventral hernia. > Interpreting Provider: Tray Jarvis MD on 07/04/2025 9:55 AM Medications: -Infusions: Medications[1] -Scheduled Medications: Medications[2] -PRN Medications: Medications[3] Problem List: Incarcerated ventral hernia (POA: Yes) Generalized abdominal pain (POA: Yes) Necrotizing soft tissue infection (POA: No) Peritonitis (HCC) (POA: Yes) Acute hypoxic respiratory failure (HCC) (POA: No) Septic shock (HCC) (POA: Yes) LARISA (acute kidney injury) (POA: Yes) Chronic atrial fibrillation (HCC) (POA: Yes) Chronic anticoagulation (POA: Yes) Diastolic congestive heart failure (HCC) (POA: Yes) Morbid (severe) obesity due to excess calories (HCC) (POA: Yes) Obstructive sleep apnea (POA: Yes) Hypothyroidism (POA: Yes) Cardiomegaly (POA: Yes) Assessment and Plan: Serjio Sanderson is a 64 year old male with PMH of CHF, YEN, A fib on Xarelto (last dose 06/30), three pulmonary embolisms (last in 2011), non specific thyroid condition. Presented with two day history of abdominal pain, with overlying skin ischemia, and CT from OSH with complicated abdominal hernia with fluid collection and soft tissue gas. Now s/p exploratory laparotomy, lysis of adhesions, small bowel resection, skin debridement and Abthera placement. Take back on hospital day 2, patient underwent reanastomosis, fascial closure, debridement of abdominal wall, and wound vac placement. Post operatively remained intubated and sedated on low dose levo, on clinda, micafugin, zosyn, vanc. S/p take back from reanastomosis, fascial closure, debridement of abdominal wall, and wound vac placement. Patient extubated on 07/05. Wound vac changed on 07/06 with healthy appearing granulation tissue. Tolerating regular diet, pending full return of bowel function. Wound vac changed on 07/09. Workingon dispo planning, likely LTACH given patient needs IV antibiotics and wound vac care. Neuro: #Post- operative pain - scheduled tylenol - added PRN oxy 01/06, PRN diluadid CV: #presumed sepsis #CHF most recently EF 50-55% #afib on xarelto, hx of multiple pulmonary embolisms, sp kaycentra - CHADSVASC score of 4 - continue Xarelto - Vitals q4h Resp: - extubated 07/05 - on NC - bronchial hygiene - IS qhr while awake FEN/GI: #incarcerated hernia s/p SURESH, SBR now 8 Days Post-Op reanastomsosis, fascial closure, wound vac placement - Diet: regular - Daily BMP, Mg, Phos - replete as needed - Strict I&Os TID - bowel reg: miralax Endo: - 25 mcg levothyroxine #hyperglycemic overnight, not on insulin at home, A1C 5.4% - SSI and POCT glucose Renal/: - [place] removed 07/06, voiding spontaneously - Cr 0.85 - strict I/O Heme/ID: - Hgb 9.0 - Transfuse if Hgb < 7 - Daily CBC - zosyn, clinda, micafungin- deescalate to unasyn Msk: - PT/OT - encourage OOB and ambulation Wound care: - wound vac to -125 on abdominal wound - last change 07/09 PPX: SCDs, xarelto, protonix Disposition: Patient ready for LTACH with IV antibiotics and wound vac care Staff: Dr. Chidi Nova Dio, PGY-1 General Surgery I have seen and examined the patient with the resident, and I agree with the findings and plan of care as documented by the resident Date of service:07/11/25 Erinn Murillo MD 07/11/2025 11:15 AM [1] [2] 0.9% NaCl 3 mL Intracatheter q8h acetaminophen 650 mg Oral q6h acetylcysteine 3 mL Inhalation q4h WA albuterol-ipratropium 3 mL Inhalation q4h WA ampicillin-sulbactam 3 g Intravenous q6h artificial tears Each Eye q8h atorvastatin 80 mg Oral AT BEDTIME chlorhexidine 15 mL Mouth/Throat BID furosemide 40 mg Oral BID insulin aspart 0-6 Units Subcutaneous q4h levothyroxine 25 mcg Oral QDAY AT 0600 micafungin 200 mg Intravenous q24h pantoprazole EC 40 mg Oral QDAY polyethylene glycol 3350 17 g Oral QDAY rivaroxaban 20 mg Oral QDAY WITH DINNER spironolactone 12.5 mg Oral QDAY [3] SALINE LOCK, INSERT AND MAINTAIN AND 0.9% NaCl AND 0.9% NaCl dextrose IV for hypoglycemia OR dextrose IV for hypoglycemia OR glucagon glucose (Diabetic Use) gel HYDROmorphone oxyCODONE (immediate release) OR oxyCODONE (immediate release) 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 * Erick Hernandez, RN - 07/11/2025 12:30 AM CST Problem: Pain/Discomfort Goal: Patient exhibits reduced pain/discomfort as evidenced by pain scores Outcome: Progressing Goal: Patient uses pharmacological and non-pharmacological pain management strategies. Outcome: Progressing Problem: Skin/Tissue Integrity - Adult Goal: Skin integrity remains intact Description: INTERVENTIONS: Outcome: Progressing Problem: Fall Risk Goal: Fall risk and fall related injury risk are minimized (interventions related to the fall risk can be found in the flowsheet documentation) Outcome: Progressing 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 * Cherri Sorensen RN - 07/10/2025 10:49 AM CST Care Coordination Progress Note Expected Discharge Date: 07/12/2025 Discharge Plan: Met with patient at the bedside. Patient is agreeable to LTAC referrals being placed. Continued Care and Services - Admitted Since 07/01/2025 Destination Service Provider Request Status Services Address Referrals Phone Referrals Fax Patient Preferred [facility] Senior Living Acute Care Pending - Request Sent Primary: [facility] [address] [facility] [id number] -- [facility] Acute Care Pending - Request Sent Primary: [facility] [address] [place] [address] [phone] -- Family Support (Name and Phone): Extended Emergency Contact Information Primary Emergency Contact: Dennis Sanderson Mobile Relation: Son Transportation at Discharge: Family: READMISSION RISK SCORE is 15.3 at 10:50 AM 07/10/2025.: Name: Cherri Sorensen RN 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 * Anne Reyes MD - 07/10/2025 9:49 AM CST Images from the original note were not included. ACUTE CARE SURGERY PROGRESS NOTE Encounter Date: 07/10/2025 Serjio Sanderson Date of : 1960 . Age: [age] year old Room: [facility] Admit Date: 07/01/2025 5:24 PM Hospital Day: Hospital Day: 9 History of Present Illness: Copied forward from H&P Serjio Sanderson is a 64 year old male W Pmhx CHF, COPD, afib, DVT/PE on Xarelto (last taken 06/30), who presented with signs of an incarcerated, strangulated and perforated ventral hernia with overlying skin changes. After long discussion of risks and benefits (see note from Dr. Bermudez on 07/01), kaushik joyce was taken to the OR late evening of 07/01 and was found to have 6cm x 6cm ventral hernia withincarcerated bowel with large amount of stool encountered, surrounding soft tissue with component of necrotizing soft tissue infection requiring excisional debridement of [id number], small bowel perforation resected and then left in discontinuity with Abthera placed. Procedures: 07/01- lysis of adhesions, SBR, soft tissue excisional debridement, Abthera placement 07/03- SBR, anastomosis, fascial defect closed, wound vac placement Interval: No acute events overnight AF, hemodynamically stable [place] 100 Tolerating regular diet Wound vac changed yesterday, holding suction Reports passing lots of flatus, no bowel movement OBJECTIVE Vital signs: Temp: [97.5 ??F (36.4 ??C)-98.3 ??F (36.8 ??C)] Pulse: [70-90] Resp: [16-24] BP: (136-174)/(60-94) O2 %: [50 %] SpO2: [95 %-100 %] Input and Output: Date 07/09/25699 - 07/10/2565807/10/25699 - 07/11/25 0659 Shift 3067-3948 4960-4756 0551-8176 24 Hour Total 5280-1971 9600-5509 2076-3628 24 Hour Total INTAKE P.O. 400 340 740 400 400 Shift Total(mL/kg) 400(2.1) 340(1.8) 740(3.9) 400(2.1) 400(2.1) OUTPUT Urine(mL/kg/hr) 1503(1) 700(0.5) 2203(0.5) 1200 1200 Drains 50 100 100 250 100 100 Shift Total(mL/kg) 1553(8.2) 800(4.2) 100(0.5) 2453(13) 1300(6.9) 1300(6.9) NET -1153 -460 -100 -1713 -900 -900 Weight (kg) 189.1 189.1 189.1 189.1 189.1 189.1 189.1 189.1 Diet: DIET REGULAR Physical Examination: Gen: alert, no acute distress HEENT: AT/NC, EOMI CV: RRR Pulm: non labored respirations on NC Abd: Soft, wound vac in place with serosanginous output MSK: WWP, 1+ pitting edema bilateral lower extremities Neuro: no focal deficits, moving all extremities Psych: appropriate mood and affect Data Review: LABS: Recent Labs Component Name 07/10/2545507/09/2532907/08/25 030 WBC 13.3* 12.8* 14.2* HGB 9.3* 8.9* 9.1* HCT 29.9* 29.7* 28.9* MCV 105.3* 110.6* 104.0* Recent Labs Component Name 07/10/2545507/09/25 0612 07/09/2532907/08/25 0307 CALCIUM 8.5 8.4 - 8.1* PHOS 2.4* - 7.8* 2.6* Recent Labs Component Name 07/10/25 0456 07/09/25 0612 07/08/25 0307 NA 144 142 143 CL 111* 111* 111* CO2 26 27 27 BUN 22 25 29* CREATININE 0.82 0.81 0.92 Recent Labs Component Name 07/02/25 1052 07/01/25 1918 PROT 5.1* 6.2 6.5 ALB 1.5* 2.1* 2.1* ALKPHOS 97 112 115 AST 36* 43* 44* ALT 30 39 41 TBILI 2.2* 1.8* 1.8* DBILI 1.6* 1.3* Recent Labs Component Name 07/10/25 0456 07/09/25 1037 07/09/25 0330 07/08/25 1139 07/08/25 0307 PT 28.1* - 17.8* - 17.8* INR 2.7 - 1.5 - 1.5 PTT 40.2* 86.0* 78.5* - 67.9* - = values in this interval not displayed. No results for input(s): CKTOTAL, CKMBCK2, TROPONINI in the last 27901 hours. No results for input(s): TACROLIMUS, TACROCARDIO, TACROGASTRO, TACRONEPHRO in the last 09285 hours. Microbiology: Microbiology Results (Displays last 21 days for this encounter ONLY) Procedure Component Value - Date/Time CULTURE FUNGUS OTHER+FUNGUS SMEAR [[id number]] (Normal) Collected: 07/05/25 1047 Lab Status: Preliminary result Specimen: Microbiology from Lung Washing Updated: 07/09/25 1154 Culture No fungus isolated Fungus Stain No yeast or hyphae seen No Pneumocystis jirovecii CULTURE BRONCHIAL WASHING+GRAM STAIN [[id number]] Collected: 07/05/25 1046 Lab Status: Final result Specimen: Microbiology from Lung, Left Lower Lobe Updated: 07/07/25 0729 Culture No growth Gram Stain Light Polymorphonuclear cells No organisms seen MRSA PCR [[id number]] (Normal) Collected: 07/02/25 0031 Lab Status: Final result Specimen: Microbiology from Nasal Updated: 07/02/25 0601 MRSA DNA by PCR Not detected Narrative: Methicillin-resistant Staphylococcus aureus (MRSA) DNA is not detected (presumed not colonized withMRSA). CULTURE FLUID+GRAM STAIN [[id number]] (Abnormal) (Susceptibility) Collected: 07/01/252349 Lab Status: Final result Specimen: Other from Peritoneal Fluid Updated: 07/10/25 0732 Culture Heavy Escherichia coli Heavy Streptococcus anginosus Rare [place] krusei Comment: Referred to [facility] for susceptibility Referred to [address] [address] See separate reference laboratory report Gram Stain Light Polymorphonuclear cells Heavy Gram-positive cocci Heavy Gram-negative bacilli Moderate Gram-positive bacilli Rare Yeast Susceptibility Escherichia coli (1) Antibiotic Interpretation Microscan Method Status Amikacin Susceptible <=2 ug/mL SHAMAR Final Ampicillin Susceptible 4 ug/mL SHAMAR Final Ampicillin-sulbactam Susceptible <=2 ug/mL SHAMAR Final Cefazolin See Comment* <=4 ug/mL SHAMAR Final Cefepime Susceptible <=1 ug/mL SHAMAR Final Ceftriaxone Susceptible <=1 ug/mL SHAMAR Final Ciprofloxacin Susceptible <=0.25 ug/mL SHAMAR Final Gentamicin Susceptible <=1 ug/mL SHAMAR Final Meropenem Susceptible <=0.25 ug/mL SHAMAR Final Piperacillin-tazobactam Susceptible <=4 ug/mL SHAMAR Final Tobramycin Susceptible <=1 ug/mL SHAMAR Final Trimethoprim-sulfamethoxazole Susceptible <=20 ug/mL SHAMAR Final Susceptibility Comments *Cefazolin SHAMAR of </=4 cannot distinguish between susceptible or intermediate for systemic breakpoints. If further defined interpretation is needed, call Microbiology and a disk diffusion test will be performed. Streptococcus anginosus (2) Antibiotic Interpretation Microscan Method Status Ampicillin Susceptible <=0.25 ug/mL SHAMAR Final Cefotaxime Susceptible <=0.12 ug/mL SHAMAR Final Ceftriaxone Susceptible 0.25 ug/mL SHAMAR Final Clindamycin Susceptible <=0.25 ug/mL SHAMAR Final Levofloxacin Susceptible <=0.25 ug/mL SHAMAR Final Penicillin G Susceptible <=0.06 ug/mL SHAMAR Final Tetracycline Susceptible 0.5 ug/mL SHAMAR Final Vancomycin Susceptible 0.5 ug/mL SHAMAR Final CULTURE ANAEROBE [[id number]] (Abnormal) Collected: 07/01/252349 Lab Status: Final result Specimen: Microbiology from Peritoneal Fluid Updated: 07/08/25 1013 Culture Moderate Phocaeicola (formerly Bacteroides) vulgatus Comment: Beta-lactamase positive Moderate Prevotella denticola Comment: Beta-lactamase negative Moderate Clostridium paraputrificum Comment: Beta-lactamase negative Moderate Finegoldia magna Narrative: Caution: The absence of beta-lactamase does not mean that the organism is susceptible to beta-lactams. Isolates may still be resistant to beta-lactams by a mechanism other than beta-lactamase production. CULTURE FUNGUS OTHER+FUNGUS SMEAR [[id number]] (Abnormal) Collected: 07/01/252349 Lab Status: Preliminary result Specimen: Microbiology from Peritoneal Fluid Updated: 07/09/25 1438 Culture Critical direct smear result Fungus Stain Rare Yeast budding SUSCEPTIBILITY FUNGUS/YEAST [[id number]] Collected: 07/01/252349 Lab Status: Final result Specimen: Other from Peritoneal Fluid Updated: 07/09/25 1824 Prelim Report SEE NOTE Comment: Specimen received and in progress. INTERPRETIVE INFORMATION: Susceptibility, Fungal (Yeasts and Molds) Units = ug/mL YSTMIC Amphotericin B 1 None Rezafungin 0.016 Suscept Anidulafungin 0.03 Suscept Micafungin 0.12 Suscept Voriconazole 0.25 Suscept Isavuconazole 0.25 None Posaconazole 0.25 None Itraconazole 0.25 None Fluconazole Resist Caspofungin 0.25 Suscept Performed By: [facility] [address] [place] [address] Regulatory Product Manager: Chava Osborne MD, PhD CLIA Number: [id number] Final Report SEE NOTE Comment: Pichia kuiavzevii (Previously [place] krusei) Organism identified by client INTERPRETIVE INFORMATION: Susceptibility, Fungal (Yeasts and Molds) Units = ug/mL YSTMIC Amphotericin B 1 None Rezafungin 0.016 Suscept Anidulafungin 0.03 Suscept Micafungin 0.12 Suscept Voriconazole 0.25 Suscept Isavuconazole 0.25 None Posaconazole 0.25 None Itraconazole 0.25 None Fluconazole Resist Caspofungin 0.25 Suscept Performed By: [facility] [address] [place], [place] [id number] Regulatory Product Manager: Chava Osborne MD, PhD CLIA Number: [id number] Narrative: SHAMAR=Minimum Inhibitory Concentration MEC=Minimum Effective Concentration SHAMAR=Minimum Inhibitory Concentration MEC=Minimum Effective Concentration SHAMAR=Minimum Inhibitory Concentration MEC=Minimum Effective Concentration SHAMAR=Minimum Inhibitory Concentration MEC=Minimum Effective Concentration SHAMAR=Minimum Inhibitory Concentration MEC=Minimum Effective Concentration SHAMAR=Minimum Inhibitory Concentration MEC=Minimum Effective Concentration Radiology Impressions: CT Chest Wo Contrast Result Date: 07/04/2025 IMPRESSION: Atelectasis of the lower lobe of the left lung and dependent upper lobe associated withthe decrease volume of the left hemithorax and leftward shift of the heart and mediastinum. Mild dependent atelectasis in the right lung base. Partially imaged upper abdomen shows ventral hernia. > Interpreting Provider: Tray Jarvis MD on 07/04/2025 9:55 AM Medications: -Infusions: Medications[1] -Scheduled Medications: Medications[2] -PRN Medications: Medications[3] Problem List: Incarcerated ventral hernia (POA: Yes) Generalized abdominal pain (POA: Yes) Necrotizing soft tissue infection (POA: No) Peritonitis (HCC) (POA: Yes) Acute hypoxic respiratory failure (HCC) (POA: No) Septic shock (HCC) (POA: Yes) LARISA (acute kidney injury) (POA: Yes) Chronic atrial fibrillation (HCC) (POA: Yes) Chronic anticoagulation (POA: Yes) Diastolic congestive heart failure (HCC) (POA: Yes) Morbid (severe) obesity due to excess calories (HCC) (POA: Yes) Obstructive sleep apnea (POA: Yes) Hypothyroidism (POA: Yes) Cardiomegaly (POA: Yes) Assessment and Plan: Serjio Sanderson is a 64 year old male with PMH of CHF, YEN, A fib on Xarelto (last dose 06/30), three pulmonary embolisms (last in 2011), non specific thyroid condition. Presented with two day history of abdominal pain, with overlying skin ischemia, and CT from OSH with complicated abdominal hernia with fluid collection and soft tissue gas. Now s/p exploratory laparotomy, lysis of adhesions, small bowel resection, skin debridement and Abthera placement. Take back on hospital day 2, patient underwent reanastomosis, fascial closure, debridement of abdominal wall, and wound vac placement. Post operatively remained intubated and sedated on low dose levo, on clinda, micafugin, zosyn, vanc. S/p take back from reanastomosis, fascial closure, debridement of abdominal wall, and wound vac placement. Patient extubated on 07/05. Wound vac changed on 07/06 with healthy appearing granulation tissue. Tolerating regular diet, pending full return of bowel function. Wound vac changed on 07/09. Workingon dispo planning LTACH vs SNF. Neuro: #Post- operative pain - scheduled tylenol - added PRN oxy 01/06, PRN diluadid CV: #presumed sepsis #CHF most recently EF 50-55% #afib on xarelto, hx of multiple pulmonary embolisms, sp kaycentra - CHADSVASC score of 4 - continue Xarelto - Vitals q4h Resp: - extubated 07/05 - on NC - bronchial hygiene - IS qhr while awake FEN/GI: #incarcerated hernia s/p SURESH, SBR now 7 Days Post-Op reanastomsosis, fascial closure, wound vac placement - Diet: regular - Daily BMP, Mg, Phos - replete as needed - Strict I&Os TID - bowel reg: miralax Endo: - 25 mcg levothyroxine #hyperglycemic overnight, not on insulin at home, A1C 5.4% - SSI and POCT glucose Renal/: - [place] removed 07/06, voiding spontaneously - Cr 0.82 - strict I/O Heme/ID: - Hgb 9.3 - Transfuse if Hgb < 7 - Daily CBC - zosyn, clinda, micafungin- deescalate to unasyn Msk: - PT/OT - encourage OOB and ambulation Wound care: - wound vac to -125 on abdominal wound - last change 07/09 PPX: SCDs, xarelto, protonix Disposition: TTF Staff: Dr. Kendrick Reyes MD General Surgery PGY-1 [1] [2] 0.9% NaCl 3 mL Intracatheter q8h acetaminophen 650 mg Oral q6h acetylcysteine 3 mL Inhalation q4h WA albuterol-ipratropium 3 mL Inhalation q4h WA ampicillin-sulbactam 3 g Intravenous q6h artificial tears Each Eye q8h atorvastatin 80 mg Oral AT BEDTIME chlorhexidine 15 mL Mouth/Throat BID furosemide 40 mg Oral BID insulin aspart 0-6 Units Subcutaneous q4h levothyroxine 25 mcg Oral QDAY AT 0600 micafungin 200 mg Intravenous q24h pantoprazole EC 40 mg Oral QDAY polyethylene glycol 3350 17 g Oral QDAY rivaroxaban 20 mg Oral QDAY WITH DINNER spironolactone 12.5 mg Oral QDAY [3] SALINE LOCK, INSERT AND MAINTAIN AND 0.9% NaCl AND 0.9% NaCl dextrose IV for hypoglycemia OR dextrose IV for hypoglycemia OR glucagon glucose (Diabetic Use) gel [] heparin AND heparin 100 units/mL HYDROmorphone oxyCODONE (immediate release) OR oxyCODONE (immediate release) Cosigned by Rinku Marks MD at 07/10/2025 11:53 AM ELEC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 Associated attestation - Rinku Marks MD - 07/10/2025 11:53 AM ELEC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 Pt seen and examined with team History and exam discussed with ACS chief Labs and films reviewed Agree with above assessments and plan Pt with strangulated bowel that perforated into the hernia sac. Pt was resected, debrided, anastomosed and closed Now with open midline wound Wound looks clean Continue dressing changes Working on SNF placement Please see resident's note for further details. * Lindsay Chaidez RN - 07/09/2025 5:45 PM CST Primary team agreed with this RN to d/c the PICC when the TPN is completed. RN will confirm this with night RN. 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 * Cherri Sorensen RN - 07/09/2025 5:11 PM CST Care Coordination Progress Note Expected Discharge Date: 07/11/2025 Discharge Plan: Patient continues to be on IV ABX. Heparin gtt and TPN to be discontinued this evening. He continues to have Wound vac. SNF recommended at discharge. SW consult placed to follow up with patient for referrals. Family Support (Name and Phone): Extended Emergency Contact Information Primary Emergency Contact: Dennis [facility] Mobile Relation: Son Transportation at Discharge: Family: READMISSION RISK SCORE is 15.9 at 5:11 PM 07/09/2025.: Name: Cherri Sorensen RN 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 * Ana Booth RD/ZACK - 07/09/2025 12:30 PM CST Images from the original note were not included. BRIEF SYNOPSIS: Nutrition Risk Identified but does not meet malnutrition criteria. Nutrition Plan: Current diet order: Regular Goal TPN Recommendations: Total Kcalories: 2400 Protein: 120 grams Dextrose Kcalories: 1149 (338 grams CHO) Lipid Kcalories: 771 (SMOF lipids, 32% total calories) Salt ratio (chloride:acetate) 1:2 or per PharmD Volume: 2L or minimum Standard electrolytes or per PharmD Daily PN multivitamin Daily trace minerals Check triglycerides weekly (goal <400 mg/dL) - 268 07/03 Recommendation to Physician: Adjust TPN, see above Check triglycerides 07/10 CLINICAL NUTRITION ASSESSMENT: Pt scheduled for reassessment. Pt extubated and now on floor. TPN continues. Awaiting return of bowel function. Getting oral diet. Recommend to continue TPN until pt passing stool. Updated recs abovenow that pt off vent. Med/Surg History and Clinical Diagnoses: Ventral hernia with perforated and incarcerated bowel S/p 07/01/25 exploratory laparotomy with small bowel resection and soft tissue excisional debridement PMHof congestive heart failure with mild reduced EF of 50-55%, COPD, obstructive sleep apnea ( CPAP compliant), atrial fibrillation on Xarelto, prior pulmonary emboli- 2016, and history of multiple prior hernia repairs Height: 182.9 cm (6' 0.01) BMI: Body mass index is 56.53 kg/m??. BMI Range: Morbidly Obese Class 3IBW/lb (Calculated) Male: 178.048 Recent Weights/Methods 08/13/2014 1124 09/10/2014 1101 07/01/2025 1729 07/02/2025 0644 07/03/2025 0340 Weight: 163.3 kg (360 lb) 166.9 kg (368 lb) 179.2 kg (395 lb) 179.2 kg (395 lb) 189.1 kg (416 lb 14.2 oz) Weight Method : -- -- -- Bed scale Bed scale Unintentional weight change: limited wt hx note wt increase likely fluid related. Net +2.7L since admit. Current Parenteral order: On vent goal TPN PO INTAKE Current diet order: Regular Nutrition recommendation: alter/change nutrition order Food Allergies: No known food allergies Last Percent Meal Eaten (%): 30 % (07/08/25 1850) 48 hr PO INTAKE Percent Meal Eaten (%) Av % Min: 0 % Max: 50 % None Pain affecting intake: No Chewing/Swallowing: None GI Concerns: (small bowel resection) Stools: Awaiting return of bowel function Skin/Wound: ex lap- wound vac Estimated Needs: KCAL: 2430 (30 kcal/kg IBW) Protein (g): 121 (1.5 g/kg IBW) Fluid (ml): 1 ml/kcal Needs based on: Kcal/kg- (Comment) (IBW 81kg) Recommended Access Route: TPN;PO Labs: Reviewed. Phos high - was just given IV phos bolus 07/08 Recent Labs Component Name 07/09/25 0612 07/08/2530607/07/25 0326 07/02/25 2318 07/02/25 1052 07/02/25 0030 07/01/25 1918 NA 142 143 148* - 138 - 138 POTASSIUM 4.0 3.7 3.8 - 3.8 - 5.0* CO2 27 27 29 - 22 - 24 BUN 25 29* 39* - 47* - 46* CREATININE 0.81 0.92 1.08 - 1.48* - 1.74* GLUCOSE 138* 122* 152* - 143* - 90 CALCIUM 8.4 8.1* 8.4 - 8.5 - 8.8 ALT - - - - 30 - 39 41 ALKPHOS - - - - 97 - 112 115 AST - - - - 36* - 43* 44* EGFR >90 >90 76* - 52* - 43* - = values in this interval not displayed. Recent Labs Component Name 07/09/25 0330 07/08/25306 07/07/25 0326 PHOS 7.8* 2.6* 3.2 Recent Labs Component Name 07/09/25 0330 07/08/25 0307 07/07/25 0326 MAGNESIUM 2.4 2.2 2.5 Recent Labs Component Name 07/09/25 0330 07/08/25 0307 07/07/25 0326 HGB 8.9* 9.1* 8.5* HCT 29.7* 28.9* 27.4* Recent Labs Component Name 07/02/25 0032 HGBA1C 5.4 Patient Vitals for the past 30 hrs: Glucose Bedside (mg/dL) 07/09/25 0839 207 mg/dL 07/09/25 0400 139 mg/dL 07/09/25 0000 163 mg/dL 07/08/25 1600 156 mg/dL 07/08/25 1200 146 mg/dL 07/08/25 0800 151 mg/dL MEDICATIONS FOR CURRENT ENCOUNTER: Meds reviewed. SCHEDULED MEDICATIONS: 0.9% NaCl injection 3 mL, Intracatheter, q8h acetaminophen (Tylenol) tablet 650 mg, Oral, q6h acetylcysteine (Mucomyst) 20 % solution 600 mg, Inhalation, q4h WA albuterol-ipratropium (Duo-Neb) nebulizer solution 3 mL, Inhalation, q4h WA ampicillin-sulbactam (Unasyn) 3 g in NaCl IV 0.9 % 100 mL IVPB, Intravenous, q6h artificial tears ophthalmic ointment, Each Eye, q8h atorvastatin (Lipitor) tablet 80 mg, Oral, AT BEDTIME chlorhexidine (Peridex) 0.12 % oral solution 15 mL, Mouth/Throat, BID furosemide (Lasix) tablet 40 mg, Oral, BID insulin aspart (NovoLOG) pen 0-6 Units, Subcutaneous, q4h levothyroxine (Synthroid) tablet 25 mcg, Oral, QDAY AT 0600 micafungin (Mycamine) 200 mg in NaCl IV 0.9 % 100 mL IVPB, Intravenous, q24h pantoprazole EC (Protonix) tablet 40 mg, Oral, QDAY polyethylene glycol 3350 (Miralax) packet 17 g, Oral, QDAY rivaroxaban (Xarelto) tablet 20 mg, Oral, QDAY WITH DINNER spironolactone (Aldactone) tablet 12.5 mg, Oral, QDAY [COMPLETED] potassium phosphate 30 mmol in d5w 260 mL bolus premix, Intravenous, Once CONTINUOUS MEDICATIONS: heparin 25,000 units in 250 mL (100 units/mL) in 0.45% NaCl, Intravenous, Continuous PRN MEDICATIONS: Or Or Or 0.9% NaCl injection 1-10 mL, Intracatheter, PRN dextrose IV 12.5 g, Intravenous, PRN dextrose IV 25 g, Intravenous, PRN glucagon (Glucagen) injection 1 mg, Subcutaneous, PRN glucose (Diabetic Use) oral gel, Oral, PRN heparin bolus from bag 0-4,000 Units, Intravenous, BOLUS FROM BAG PRN HYDROmorphone (Dilaudid) injection 0.4 mg, Intravenous, q4h PRN oxyCODONE (immediate release) (Roxicodone) tablet 10 mg, Oral, q6h PRN oxyCODONE (immediate release) (Roxicodone) tablet 5 mg, Oral, q6h PRN Nutrition Diagnostic Statement: Increased nutrient needs related to:: increased demands with critical illness as evidenced by:: estimated protein needs .. Nutrition Diagnostic Statement Progress: Nutrition problem continues Nutrition Intervention: Meals and snacks:;Parenteral nutrition: Education needed: Wound Healing Education Provided: (when appropriate) (07/09/25 1200) Monitoring: TPN, I/Os, BM, labs, meds, weight, PO intake Evaluation: Nutrition Goal: Total intake will meet estimated nutrient needs Nutrition Goal Timeframe: Throughout stay Nutrition Goal Progress: Continue with current goal Ascom [id number] 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 * Anne Reyes MD - 07/09/2025 5:49 AM CST Images from the original note were not included. ACUTE CARE SURGERY PROGRESS NOTE Encounter Date: 07/09/2025 Serjio Sanderson Date of : 1960 . Age: [age] year old Room: [facility] Admit Date: 07/01/2025 5:24 PM Hospital Day: Hospital Day: 8 History of Present Illness: Copied forward from H&P Serjio Sanderson is a 64 year old male W Pmhx CHF, COPD, afib, DVT/PE on Xarelto (last taken 06/30), who presented with signs of an incarcerated, strangulated and perforated ventral hernia with overlying skin changes. After long discussion of risks and benefits (see note from Dr. Bermudez on 07/01), kaushik joyce was taken to the OR late evening of 07/01 and was found to have 6cm x 6cm ventral hernia withincarcerated bowel with large amount of stool encountered, surrounding soft tissue with component of necrotizing soft tissue infection requiring excisional debridement of [id number], small bowel perforation resected and then left in discontinuity with Abthera placed. Procedures: 07/01- lysis of adhesions, SBR, soft tissue excisional debridement, Abthera placement 07/03- SBR, anastomosis, fascial defect closed, wound vac placement Interval: No acute events overnight AF, hemodynamically stable [place] 450 Remains on NC Tolerated clears, advanced to regular yesterday Reports passing flatus, no bowel movement OBJECTIVE Vital signs: Temp: [97.4 ??F (36.3 ??C)-98.2 ??F (36.8 ??C)] Pulse: [65-112] Resp: [16-20] BP: (127-161)/(72-86) SpO2: [97 %-100 %] Input and Output: Date 07/08/25 07 - 07/09/25 0659 07/09/25 07 - 07/10/25 0659 Shift 2587-6463 2180-6633 2411-7816 24 Hour Total 0112-9404 4456-6759 8538-0529 24 Hour Total INTAKE P.O. 240 230 460 1209 I.V.(mL/kg/hr) 721.7(0.5) 721.7 TPN/PPN 1069 1069 Shift Total(mL/kg) 2030.8(10.7) 320(1.7) 440(2.3) 2790.8(14.8) OUTPUT Urine(mL/kg/hr) 2050(1.4) 1200(0.8) 1000 4250 Drains 50 50 Shift Total(mL/kg) 2050(10.8) 1200(6.3) 1050(5.6) 4300(22.7) NET -19.2 -880 -610 -1509.2 Weight (kg) 189.1 189.1 189.1 189.1 189.1 189.1 189.1 189.1 Diet: DIET REGULAR TPN - CENTRAL LINE - ADULT Physical Examination: Gen: alert, no acute distress HEENT: AT/NC, EOMI CV: RRR Pulm: non labored respirations on NC Abd: Soft, wound vac in place with serosanginous output MSK: WWP, 1+ pitting edema bilateral lower extremities Neuro: no focal deficits, moving all extremities Psych: appropriate mood and affect Data Review: LABS: Recent Labs Component Name 07/09/2532907/08/2530607/07/25325 WBC 12.8* 14.2* 13.7* HGB 8.9* 9.1* 8.5* HCT 29.7* 28.9* 27.4* MCV 110.6* 104.0* 103.0* Recent Labs Component Name 07/09/2532907/08/2530607/07/2532507/06/25 0131 CALCIUM - 8.1* 8.4 8.4 PHOS 7.8* 2.6* 3.2 3.5 Recent Labs Component Name 07/08/2530607/07/2532507/06/25 0131 NA 143 148* 146* CL 111* 113* 112* CO2 27 29 28 BUN 29* 39* 44* CREATININE 0.92 1.08 1.27* Recent Labs Component Name 07/02/25 1052 07/01/25 191 PROT 5.1* 6.2 6.5 ALB 1.5* 2.1* 2.1* ALKPHOS 97 112 115 AST 36* 43* 44* ALT 30 39 41 TBILI 2.2* 1.8* 1.8* DBILI 1.6* 1.3* Recent Labs Component Name 07/09/2532907/08/25194307/08/25113807/08/2530607/07/25 0920 07/07/25 032 PT 17.8* - - 17.8* - 17.8* INR 1.5 - - 1.5 - 1.5 PTT 78.5* 68.8* 75.7* 67.9* - 72.2* - = values in this interval not displayed. No results for input(s): CKTOTAL, CKMBCK2, TROPONINI in the last 24250 hours. No results for input(s): TACROLIMUS, TACROCARDIO, TACROGASTRO, TACRONEPHRO in the last 83681 hours. Microbiology: Microbiology Results (Displays last 21 days for this encounter ONLY) Procedure Component Value - Date/Time CULTURE FUNGUS OTHER+FUNGUS SMEAR [[id number]] (Normal) Collected: 07/05/25 1047 Lab Status: Preliminary result Specimen: Microbiology from Lung Washing Updated: 07/06/25 1203 Culture Culture in progress Fungus Stain No yeast or hyphae seen No Pneumocystis jirovecii CULTURE BRONCHIAL WASHING+GRAM STAIN [[id number]] Collected: 07/05/25 1046 Lab Status: Final result Specimen: Microbiology from Lung, Left Lower Lobe Updated: 07/07/25 0729 Culture No growth Gram Stain Light Polymorphonuclear cells No organisms seen MRSA PCR [[id number]] (Normal) Collected: 07/02/25 0031 Lab Status: Final result Specimen: Microbiology from Nasal Updated: 07/02/25 0601 MRSA DNA by PCR Not detected Narrative: Methicillin-resistant Staphylococcus aureus (MRSA) DNA is not detected (presumed not colonized withMRSA). CULTURE FLUID+GRAM STAIN [[id number]] (Abnormal) (Susceptibility) Collected: 07/01/25 2350 Lab Status: Preliminary result Specimen: Other from Peritoneal Fluid Updated: 07/08/25 1051 Culture Heavy Escherichia coli Heavy Streptococcus anginosus Rare Naida krusei Comment: Referred to [facility] for susceptibility Referred to [facility] [address] [place] [address] See separate reference laboratory report Gram Stain Light Polymorphonuclear cells Heavy Gram-positive cocci Heavy Gram-negative bacilli Moderate Gram-positive bacilli Rare Yeast Susceptibility Escherichia coli (1) Antibiotic Interpretation Microscan Method Status Amikacin Susceptible <=2 ug/mL SHAMAR Final Ampicillin Susceptible 4 ug/mL SHAMAR Final Ampicillin-sulbactam Susceptible <=2 ug/mL SHAMAR Final Cefazolin See Comment* <=4 ug/mL SHAMAR Final Cefepime Susceptible <=1 ug/mL SHAMAR Final Ceftriaxone Susceptible <=1 ug/mL SHAMAR Final Ciprofloxacin Susceptible <=0.25 ug/mL SHAMAR Final Gentamicin Susceptible <=1 ug/mL SHAMAR Final Meropenem Susceptible <=0.25 ug/mL SHAMAR Final Piperacillin-tazobactam Susceptible <=4 ug/mL SHAMAR Final Tobramycin Susceptible <=1 ug/mL SHAMAR Final Trimethoprim-sulfamethoxazole Susceptible <=20 ug/mL SHAMAR Final Susceptibility Comments *Cefazolin SHAMAR of </=4 cannot distinguish between susceptible or intermediate for systemic breakpoints. If further defined interpretation is needed, call Microbiology and a disk diffusion test will be performed. Streptococcus anginosus (2) Antibiotic Interpretation Microscan Method Status Ampicillin Susceptible <=0.25 ug/mL SHAMAR Final Cefotaxime Susceptible <=0.12 ug/mL SHAMAR Final Ceftriaxone Susceptible 0.25 ug/mL SHAMAR Final Clindamycin Susceptible <=0.25 ug/mL SHAMAR Final Levofloxacin Susceptible <=0.25 ug/mL SHAMAR Final Penicillin G Susceptible <=0.06 ug/mL SHAMAR Final Tetracycline Susceptible 0.5 ug/mL SHAMAR Final Vancomycin Susceptible 0.5 ug/mL SHAMAR Final CULTURE ANAEROBE [[id number]] (Abnormal) Collected: 07/01/252349 Lab Status: Final result Specimen: Microbiology from Peritoneal Fluid Updated: 07/08/25 1013 Culture Moderate Phocaeicola (formerly Bacteroides) vulgatus Comment: Beta-lactamase positive Moderate Prevotella denticola Comment: Beta-lactamase negative Moderate Clostridium paraputrificum Comment: Beta-lactamase negative Moderate Finegoldia magna Narrative: Caution: The absence of beta-lactamase does not mean that the organism is susceptible to beta-lactams. Isolates may still be resistant to beta-lactams by a mechanism other than beta-lactamase production. CULTURE FUNGUS OTHER+FUNGUS SMEAR [[id number]] (Abnormal) Collected: 07/01/252349 Lab Status: Preliminary result Specimen: Microbiology from Peritoneal Fluid Updated: 07/02/25 0907 Culture Critical direct smear result Fungus Stain Rare Yeast budding SUSCEPTIBILITY FUNGUS/YEAST [[id number]] Collected: 07/01/252349 Lab Status: Preliminary result Specimen: Other from Peritoneal Fluid Updated: 07/07/25 1520 Prelim Report SEE NOTE Comment: Specimen received and in progress. INTERPRETIVE INFORMATION: Susceptibility, Fungal (Yeasts and Molds) Units = ug/mL Performed By: [facility] [address] [place] [address] Regulatory Product Manager: Chava Osborne MD, PhD CLIA Number: [id number] Narrative: SHAMAR=Minimum Inhibitory Concentration MEC=Minimum Effective Concentration SHAMAR=Minimum Inhibitory Concentration MEC=Minimum Effective Concentration Radiology Impressions: CT Chest Wo Contrast Result Date: 07/04/2025 IMPRESSION: Atelectasis of the lower lobe of the left lung and dependent upper lobe associated withthe decrease volume of the left hemithorax and leftward shift of the heart and mediastinum. Mild dependent atelectasis in the right lung base. Partially imaged upper abdomen shows ventral hernia. > Interpreting Provider: Tray Jarvis MD on 07/04/2025 9:55 AM Medications: -Infusions: Medications[1] -Scheduled Medications: Medications[2] -PRN Medications: Medications[3] Problem List: Incarcerated ventral hernia (POA: Yes) Generalized abdominal pain (POA: Yes) Necrotizing soft tissue infection (POA: No) Peritonitis (HCC) (POA: Yes) Acute hypoxic respiratory failure (HCC) (POA: No) Septic shock (HCC) (POA: Yes) LARISA (acute kidney injury) (POA: Yes) Chronic atrial fibrillation (HCC) (POA: Yes) Chronic anticoagulation (POA: Yes) Diastolic congestive heart failure (HCC) (POA: Yes) Morbid (severe) obesity due to excess calories (HCC) (POA: Yes) Obstructive sleep apnea (POA: Yes) Hypothyroidism (POA: Yes) Cardiomegaly (POA: Yes) Assessment and Plan: Serjio Sanderson is a 64 year old male with PMH of CHF, YEN, A fib on Xarelto (last dose 06/30), three pulmonary embolisms (last in 2011), non specific thyroid condition. Presented with two day history of abdominal pain, with overlying skin ischemia, and CT from OSH with complicated abdominal hernia with fluid collection and soft tissue gas. Now s/p exploratory laparotomy, lysis of adhesions, small bowel resection, skin debridement and Abthera placement. Take back on hospital day 2, patient underwent reanastomosis, fascial closure, debridement of abdominal wall, and wound vac placement. Post operatively remained intubated and sedated on low dose levo, on clinda, micafugin, zosyn, vanc. S/p take back from reanastomosis, fascial closure, debridement of abdominal wall, and wound vac placement. Patient extubated on 07/05. Wound vac changed on 07/06 with healthy appearing granulation tissue. Advanced to regular diet, tolerating well, pending return of bowel function. Will plan for wound vac change today. Neuro: #Post- operative pain - scheduled tylenol - added PRN oxy 01/06, PRN diluadid CV: #presumed sepsis #CHF most recently EF 50-55% #afib on xarelto, hx of multiple pulmonary embolisms, sp kaycentra - CHADSVASC score of 4, transition heparin gtt to xarelto - Vitals q4h Resp: - extubated 07/05 - on NC - bronchial hygiene - IS qhr while awake FEN/GI: #incarcerated hernia s/p SURESH, SBR now 6 Days Post-Op reanastomsosis, fascial closure, wound vac placement - Diet: regular - continue TPN - Daily BMP, Mg, Phos - replete as needed - Strict I&Os TID - bowel reg: miralax Endo: - 25 mcg levothyroxine #hyperglycemic overnight, not on insulin at home, A1C 5.4% - SSI and POCT glucose Renal/: - [place] removed 07/06, voiding spontaneously - Cr 0.92 - strict I/O Heme/ID: - Hgb 8.9 - Transfuse if Hgb < 7 - Daily CBC - zosyn, clinda, micafungin- deescalate to unasyn Msk: - PT/OT- pending DC recs - OOB and ambulation Wound care: - wound vac to -125 on abdominal wound - last change 07/06, next due 07/09 PPX: SCDs, xarelto, protonix Disposition: TTF Anne Reyes MD General Surgery PGY-1 [1] heparin, 0-40 Units/kg/hr (Adjusted), Last Rate: 18 Units/kg/hr (07/09/25 4157) TPN - CENTRAL LINE - ADULT, , Last Rate: 61.67 mL/hr at 07/08/25 8739 [2] 0.9% NaCl 3 mL Intracatheter q8h acetaminophen 650 mg Oral q6h acetylcysteine 3 mL Inhalation q4h WA albuterol-ipratropium 3 mL Inhalation q4h WA artificial tears Each Eye q8h atorvastatin 80 mg Oral AT BEDTIME chlorhexidine 15 mL Mouth/Throat BID clindamycin 900 mg Intravenous q8h furosemide 20 mg Intravenous BID insulin aspart 0-6 Units Subcutaneous q4h levothyroxine 25 mcg Oral QDAY AT 0600 micafungin 200 mg Intravenous q24h pantoprazole 40 mg Intravenous QDAY piperacillin-tazobactam 4.5 g Intravenous q8h vancomycin 1,500 mg Intravenous q12h vancomycin (VANCOCIN) IV dose per pharmacy Does not apply DIRECTED [3] SALINE LOCK, INSERT AND MAINTAIN AND 0.9% NaCl AND 0.9% NaCl dextrose IV for hypoglycemia OR dextrose IV for hypoglycemia OR glucagon glucose (Diabetic Use) gel heparin AND heparin 100 units/mL HYDROmorphone oxyCODONE (immediate release) OR oxyCODONE (immediate release) Cosigned by Rinku Marks MD at 07/09/2025 4:05 PM 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 Associated attestation - Rinku Marks MD - 07/09/2025 4:05 PM 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 Pt seen and examined with team History and exam discussed with ACS chief Labs and films reviewed Agree with above assessments and plan Pt with incarcerated ventral hernia with perforation causing a NSTI in his hernia sac. S/p resection of bowel and wound debridement Pt went back later for small bowel anastomosis and primary closure of fascial defect and wound vac placement Getting 3x week vac changes Tolerating diet Working on placement Please see resident's note for further details. * Rohini Wharton MD - 07/08/2025 3:27 PM CST Images from the original note were not included. ACUTE CARE SURGERY PROGRESS NOTE Encounter Date: 07/08/2025 Serjio Sanderson Date of : 1960 . Age: [age] year old Room: 548/01 Admit Date: 07/01/2025 5:24 PM Hospital Day: Hospital Day: 7 History of Present Illness: Copied forward from H&P Serjio Sanderson is a 64 year old male W Pmhx CHF, COPD, afib, DVT/PE on Xarelto (last taken 06/30), who presented with signs of an incarcerated, strangulated and perforated ventral hernia with overlying skin changes. After long discussion of risks and benefits (see note from Dr. Bermudez on 07/01), kaushik joyce was taken to the OR late evening of 07/01 and was found to have 6cm x 6cm ventral hernia withincarcerated bowel with large amount of stool encountered, surrounding soft tissue with component of necrotizing soft tissue infection requiring excisional debridement of [id number], small bowel perforation resected and then left in discontinuity with Abthera placed. Procedures: 07/01- lysis of adhesions, SBR, soft tissue excisional debridement, Abthera placement 07/03- SBR, anastomosis, fascial defect closed, wound vac placement Interval: No acute events overnight AF, HDS, remains off pressors [place] 450 Remains on NC Transferred to floor Tolerated clears OBJECTIVE Vital signs: Temp: [97.4 ??F (36.3 ??C)-98.3 ??F (36.8 ??C)] Pulse: [44-112] Resp: [18-22] BP: (129-161)/(59-86) SpO2: [91 %-100 %] Input and Output: Date 07/07/25 1500 - 07/08/25 0659 07/08/25 0700 - 07/09/25 0659 Shift 2048-0563 2477-6216 24 Hour Total 5645-8195 7733-2784 2473-6273 24 Hour Total INTAKE P.O. 401 517 1385 240 240 I.V.(mL/kg/hr) 222.1(0.1) 573.1(0.1) 721.7(0.5) 721.7 TPN/PPN 564.6 782.8 1069 1069 Shift Total(mL/kg) 1506.8(8) 400(2.1) 3375.9(17.9) 2030.8(10.7) 2030.8(10.7) OUTPUT Urine(mL/kg/hr) 300(0.2) 1450(1) 3300(0.7) 1750(1.2) 1750 Drains 350 100 450 Shift Total(mL/kg) 650(3.4) 1550(8.2) 3750(19.8) 1750(9.3) 1750(9.3) NET 856.8 -1150 -374.1 280.8 280.8 Weight (kg) 189.1 189.1 189.1 189.1 189.1 189.1 189.1 Diet: TPN - CENTRAL LINE - ADULT DIET REGULAR TPN - CENTRAL LINE - ADULT Physical Examination: Gen: alert, no acute distress HEENT: AT/NC, EOMI CV: RRR Pulm: non labored respirations on NC Abd: Soft, wound vac in place with serosanginous output MSK: WWP, 1+ pitting edema bilateral lower extremities Neuro: no focal deficits, moving all extremities Psych: appropriate mood and affect Data Review: LABS: Recent Labs Component Name 07/08/2530607/07/2532507/06/25 1234 WBC 14.2* 13.7* 13.6* HGB 9.1* 8.5* 9.2* HCT 28.9* 27.4* 28.7* MCV 104.0* 103.0* 101.4* Recent Labs Component Name 07/08/2530607/07/2532507/06/25 0131 CALCIUM 8.1* 8.4 8.4 PHOS 2.6* 3.2 3.5 Recent Labs Component Name 07/08/2530607/07/25 03207/06/25 013 NA 143 148* 146* CL 111* 113* 112* CO2 27 29 28 BUN 29* 39* 44* CREATININE 0.92 1.08 1.27* Recent Labs Component Name 07/02/25 1052 07/01/25 1918 PROT 5.1* 6.2 6.5 ALB 1.5* 2.1* 2.1* ALKPHOS 97 112 115 AST 36* 43* 44* ALT 30 39 41 TBILI 2.2* 1.8* 1.8* DBILI 1.6* 1.3* Recent Labs Component Name 07/08/25 1139 07/08/25 0307 07/07/25 0920 07/07/25 0326 07/06/256 07/06/25 1234 PT - 17.8* - 17.8* - 17.3* INR - 1.5 - 1.5 - 1.4 PTT 75.7* 67.9* 71.6* 72.2* - 30.0 - = values in this interval not displayed. No results for input(s): CKTOTAL, CKMBCK2, TROPONINI in the last 28148 hours. No results for input(s): TACROLIMUS, TACROCARDIO, TACROGASTRO, TACRONEPHRO in the last 37909 hours. Microbiology: Microbiology Results (Displays last 21 days for this encounter ONLY) Procedure Component Value - Date/Time CULTURE FUNGUS OTHER+FUNGUS SMEAR [[id number]] (Normal) Collected: 07/05/25 1047 Lab Status: Preliminary result Specimen: Microbiology from Lung Washing Updated: 07/06/25 1203 Culture Culture in progress Fungus Stain No yeast or hyphae seen No Pneumocystis jirovecii CULTURE BRONCHIAL WASHING+GRAM STAIN [[id number]] Collected: 07/05/25 1046 Lab Status: Final result Specimen: Microbiology from Lung, Left Lower Lobe Updated: 07/07/25 0729 Culture No growth Gram Stain Light Polymorphonuclear cells No organisms seen MRSA PCR [[id number]] (Normal) Collected: 07/02/25 0031 Lab Status: Final result Specimen: Microbiology from Nasal Updated: 07/02/25 0601 MRSA DNA by PCR Not detected Narrative: Methicillin-resistant Staphylococcus aureus (MRSA) DNA is not detected (presumed not colonized withMRSA). CULTURE FLUID+GRAM STAIN [[id number]] (Abnormal) (Susceptibility) Collected: 07/01/25 2350 Lab Status: Preliminary result Specimen: Other from Peritoneal Fluid Updated: 07/08/25 1051 Culture Heavy Escherichia coli Heavy Streptococcus anginosus Rare Naida krusei Comment: Referred to [facility] for susceptibility Referred to [facility] [address] [place] [address] See separate reference laboratory report Gram Stain Light Polymorphonuclear cells Heavy Gram-positive cocci Heavy Gram-negative bacilli Moderate Gram-positive bacilli Rare Yeast Susceptibility Escherichia coli (1) Antibiotic Interpretation Microscan Method Status Amikacin Susceptible <=2 ug/mL SHAMAR Final Ampicillin Susceptible 4 ug/mL SHAMAR Final Ampicillin-sulbactam Susceptible <=2 ug/mL SHAMAR Final Cefazolin See Comment* <=4 ug/mL SHAMAR Final Cefepime Susceptible <=1 ug/mL SHAMAR Final Ceftriaxone Susceptible <=1 ug/mL SHAMAR Final Ciprofloxacin Susceptible <=0.25 ug/mL SHAMAR Final Gentamicin Susceptible <=1 ug/mL SHAMAR Final Meropenem Susceptible <=0.25 ug/mL SHAMAR Final Piperacillin-tazobactam Susceptible <=4 ug/mL SHAMAR Final Tobramycin Susceptible <=1 ug/mL SHAMAR Final Trimethoprim-sulfamethoxazole Susceptible <=20 ug/mL SHAMAR Final Susceptibility Comments *Cefazolin SHAMAR of </=4 cannot distinguish between susceptible or intermediate for systemic breakpoints. If further defined interpretation is needed, call Microbiology and a disk diffusion test will be performed. Streptococcus anginosus (2) Antibiotic Interpretation Microscan Method Status Ampicillin Susceptible <=0.25 ug/mL SHAMAR Final Cefotaxime Susceptible <=0.12 ug/mL SHAMAR Final Ceftriaxone Susceptible 0.25 ug/mL SHAMAR Final Clindamycin Susceptible <=0.25 ug/mL SHAMAR Final Levofloxacin Susceptible <=0.25 ug/mL SHAMAR Final Penicillin G Susceptible <=0.06 ug/mL SHAMAR Final Tetracycline Susceptible 0.5 ug/mL SHAMAR Final Vancomycin Susceptible 0.5 ug/mL SHAMAR Final CULTURE ANAEROBE [[id number]] (Abnormal) Collected: 07/01/252349 Lab Status: Final result Specimen: Microbiology from Peritoneal Fluid Updated: 07/08/25 1013 Culture Moderate Phocaeicola (formerly Bacteroides) vulgatus Comment: Beta-lactamase positive Moderate Prevotella denticola Comment: Beta-lactamase negative Moderate Clostridium paraputrificum Comment: Beta-lactamase negative Moderate Finegoldia magna Narrative: Caution: The absence of beta-lactamase does not mean that the organism is susceptible to beta-lactams. Isolates may still be resistant to beta-lactams by a mechanism other than beta-lactamase production. CULTURE FUNGUS OTHER+FUNGUS SMEAR [[id number]] (Abnormal) Collected: 07/01/252349 Lab Status: Preliminary result Specimen: Microbiology from Peritoneal Fluid Updated: 07/02/25 0907 Culture Critical direct smear result Fungus Stain Rare Yeast budding SUSCEPTIBILITY FUNGUS/YEAST [[id number]] Collected: 07/01/252349 Lab Status: Preliminary result Specimen: Other from Peritoneal Fluid Updated: 07/07/25 1520 Prelim Report SEE NOTE Comment: Specimen received and in progress. INTERPRETIVE INFORMATION: Susceptibility, Fungal (Yeasts and Molds) Units = ug/mL Performed By: [facility] [address] [place] [id number] Regulatory Product Manager: Chava Osborne MD, PhD CLIA Number: [id number] Narrative: SHAMAR=Minimum Inhibitory Concentration MEC=Minimum Effective Concentration SHAMAR=Minimum Inhibitory Concentration MEC=Minimum Effective Concentration Radiology Impressions: CT Chest Wo Contrast Result Date: 07/04/2025 IMPRESSION: Atelectasis of the lower lobe of the left lung and dependent upper lobe associated withthe decrease volume of the left hemithorax and leftward shift of the heart and mediastinum. Mild dependent atelectasis in the right lung base. Partially imaged upper abdomen shows ventral hernia. > Interpreting Provider: Tray Jarvis MD on 07/04/2025 9:55 AM Medications: -Infusions: Medications[1] -Scheduled Medications: Medications[2] -PRN Medications: Medications[3] Problem List: Incarcerated ventral hernia (POA: Yes) Generalized abdominal pain (POA: Yes) Necrotizing soft tissue infection (POA: No) Peritonitis (HCC) (POA: Yes) Acute hypoxic respiratory failure (HCC) (POA: No) Septic shock (HCC) (POA: Yes) LARISA (acute kidney injury) (POA: Yes) Chronic atrial fibrillation (HCC) (POA: Yes) Chronic anticoagulation (POA: Yes) Diastolic congestive heart failure (HCC) (POA: Yes) Morbid (severe) obesity due to excess calories (HCC) (POA: Yes) Obstructive sleep apnea (POA: Yes) Hypothyroidism (POA: Yes) Cardiomegaly (POA: Yes) Assessment and Plan: Serjio Sanderson is a 64 year old male with PMH of CHF, YEN, A fib on Xarelto (last dose 06/30), three pulmonary embolisms (last in 2011), non specific thyroid condition. Presented with two day history of abdominal pain, with overlying skin ischemia, and CT from OSH with complicated abdominal hernia with fluid collection and soft tissue gas. Now s/p exploratory laparotomy, lysis of adhesions, small bowel resection, skin debridement and Abthera placement. Take back on hospital day 2, patient underwent reanastomosis, fascial closure, debridement of abdominal wall, and wound vac placement. Post operatively remained intubated and sedated on low dose levo, on clinda, micafugin, zosyn, vanc. S/p take back from reanastomosis, fascial closure, debridement of abdominal wall, and wound vac placement. Patient extubated on 07/05. Wound vac changed on 07/06 with healthy appearing granulation tissue. Will advance to regular diet today. Neuro: #Post- operative pain - scheduled tylenol, PRN diluadid - added PRN oxy /10s given patient is tolerating oral CV: #presumed sepsis #CHF most recently EF 50-55% #afib on xarelto, hx of multiple pulmonary embolisms, sp kaycentra - CHADSVASC score of 4, okay for heparin - Vitals q4h Resp: - extubated 07/05 - on NC - bronchial hygiene - IS qhr while awake FEN/GI: #incarcerated hernia s/p SURESH, SBR now 5 Days Post-Op reanastomsosis, fascial closure, wound vac placement - Diet: regular - continue TPN - Daily BMP, Mg, Phos - replete as needed - Strict I&Os TID Endo: - 25 mcg levothyroxine #hyperglycemic overnight, not on insulin at home, A1C 5.4% - SSI and POCT glucose Renal/: - [place] removed 07/06, voiding spontaneously - Cr 0.92 - strict I/O Heme/ID: - Hgb 9.1 - Transfuse if Hgb < 7 - Daily CBC - zosyn, clinda, micafungin Msk: - PT/OT- pending DC recs - OOB and ambulation Wound care: - wound vac to -125 on abdominal wound - last change 07/06, next due 07/09 PPX: SCDs, heparin, protonix Disposition: TTF Rohini Dio, PGY-1 General Surgery [1] heparin, 0-40 Units/kg/hr (Adjusted), Last Rate: 17 Units/kg/hr (07/08/25 1345) TPN - CENTRAL LINE - ADULT, TPN - CENTRAL LINE - ADULT, , Last Rate: 61.67 mL/hr at 07/08/25 1341 [2] 0.9% NaCl 3 mL Intracatheter q8h acetaminophen 650 mg Oral q6h acetylcysteine 3 mL Inhalation q4h WA albuterol-ipratropium 3 mL Inhalation q4h WA artificial tears Each Eye q8h atorvastatin 80 mg Oral AT BEDTIME chlorhexidine 15 mL Mouth/Throat BID clindamycin 900 mg Intravenous q8h furosemide 20 mg Intravenous BID insulin aspart 0-6 Units Subcutaneous q4h levothyroxine 25 mcg [place] QDAY AT 0600 micafungin 200 mg Intravenous q24h pantoprazole 40 mg Intravenous QDAY piperacillin-tazobactam 4.5 g Intravenous q8h vancomycin 1,500 mg Intravenous q12h vancomycin (VANCOCIN) IV dose per pharmacy Does not apply DIRECTED [3] SALINE LOCK, INSERT AND MAINTAIN AND 0.9% NaCl AND 0.9% NaCl dextrose IV for hypoglycemia OR dextrose IV for hypoglycemia OR glucagon glucose (Diabetic Use) gel heparin AND heparin 100 units/mL HYDROmorphone Cosigned by Kamaljit Nicole MD at 07/09/2025 8:23 AM ELEC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 Associated attestation - Kamaljit Nicole MD - 07/09/2025 8:23 AM ELEC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 Patient seen and examined with residents. I confirm the examination, assessment and plan unless otherwise noted. * Suzanne Toussaint RN - 07/08/2025 6:54 AM CST Problem: Pain/Discomfort Goal: Patient exhibits reduced pain/discomfort as evidenced by pain scores Outcome: Progressing Goal: Patient uses pharmacological and non-pharmacological pain management strategies. Outcome: Progressing Goal: Patient verbalizes acceptable level of pain relief and ability to engage in desired activity. Outcome: Progressing Problem: Restraint Safety Goal: Free from restraint(s) Description: INTERVENTIONS: Outcome: Progressing 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 * Ryan Schilling, PharmD - 07/08/2025 5:43 AM CST ACTIVE CONSULTS TO PHARMACY/DISEASE STATE MONITORING Pharmacy Consult: Vancomycin ASSESSMENT/PLAN Indication: documented nec. Fasc. Of ventral hernial with Goal Level: AUC 400- 600 based on one level estimates (TIER 2) ID consulted/following: No Assessment: Day of treatment: 8 End of treatment date: to be determined Current dosing regimen: Intermittent dosing based on levels Recent Labs Component Name 07/08/25 0307 07/07/25 0326 07/06/25 0131 07/05/25 2110 07/05/25 0038 07/04/25 1529 07/02/25 0159 07/02/25 0030 CREATININE 0.92 1.08 1.27* - 1.21* - - 1.75* BUN 29* 39* 44* - 40* - - 50* VANCORNDM 11.1 8.6 - 11.5 - - - - VANCTROUGH - - - - - 9.7* - 39.4* - = values in this interval not displayed. Microbiology: Recent Labs Component Name 07/02/25 0031 MRSADPCR Not detected MRSA positive: No Other pertinent micro: 07/01 Peritoneal Fluid Cx: E coli, prevotella denticola, Phocaeicola (formerly Bacteroides) vulgatus, strep anginosus, naida krusei 07/05 BAL pending Renal: Considered stable at this time as patient has Estimated Creatinine Clearance: 136.5 mL/min (by C-G formula based on SCr of 0.92 mg/dL). Level(s): Pharmacokinetic calculations difficult to calculate at this time due to inconsistent dosing patternto assess drug clearance. Reasonable to continue to target random levels 10-20 mcg/ml with redosingfor < 20 mcg/ml unless dictated differently in plan below. Plan Dosing: Will adjust dose to 1500 mg Q12 hr. This regimen calculates to provide estimated AUC 400-600 mg*h/L Monitoring: Will order a vancomycin trough level prior to subsequent maintenance dose on 07/09 at 1700 and adjust regimen if indicated. Continue to monitor patient???s renal function and cultures as needed. Ryan Schilling, PharmMing 07/08/2025 5:[address] [facility] Vancomycin Guideline SUBJECTIVE/OBJECTIVE Serjio Sanderson is a 64 year old male. Height: 6' 0.01 (182.9 cm) Wt 189.1 kg (416 lb 14.2 oz) Body mass index is 56.53 kg/m??. Vancomycin Administrations from OCT (last 72 hours) Date/Time Action Medication Dose Rate 07/07/25 0912 $ New Bag/Syringe vancomycin (Vancocin) 2,000 mg in 540 mL IVPB 2,000 mg 270 mL/hr 07/06/25 0039 $ New Bag/Syringe vancomycin (Vancocin) 1,500 mg in 530 mL IVPB 1,500 mg 353.33 mL/hr 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 * Carlyle Perkins, PT - 07/07/2025 10:50 AM CST [facility] Physical Therapy Initial Evaluation Note Patient: Serjio Sanderson Med Record Number: [id number] Date of : 1960 Age: [age] year old PPE worn by staff: gloves;mask - procedural PPE worn by patient: gown - patient, clean;socks - clean CoEval w/ OT, Vani Recommendations: Discharge PT Discharge Recommendations: Patient would benefit from multidisciplinary therapy This recommendation is made due to ongoing PT functional needs: address care for self in the home;address functional deficits In addition to the 1:1 evaluation of the patient, additional eval time was spent completing the chart review prior to the assessment, completing the multidisciplinary plan of care and education plan post evaluation and communicating results of the eval to other treatment team members. Patient is being recommended for post acute care, therefore DME recommendations will be made at thenext level of care. Nurse and Occupational Therapist contacted regarding patient status and/or discharge plan. Consult Specifics: Evaluation and Treat PRECAUTIONS: Weight Bearing Status: (no restrictions) Activity Level: Up with Assist Other Precautions: Abdominal precautions DIAGNOSIS: Problem List[1] Past Medical History[2] SUBJECTIVE: Subjective: Pt agreeable to therapy eval PATIENT GOALS / WHAT MATTERS MOST TO THE PATIENT: Patient's Primary Concern: none stated Home Situation: Type of Residence: Private Residence Living arrangement: Alone Ramp: Yes Home Structure: One Story Primary Bedroom: First Floor Primary Bathroom: First Floor Bathroom : Tub/Shower Combo Equipment at Home: Cane;Home 02;Wheelchair;Bathroom Equipment Prior Level of Functioning: Prior Level of Function Mobility: Ambulate-In Community;Ambulate-In Home ;Driving;Independent (cane when he leaves the house) Fallen Within 6 Mos: No Have Help at Home?: Yes, there is help at home now Who assists you at home?: (cleaning ladies and neighbors help) How often is assistance provided?: neighbor assists w/ yard work and getting mail; Pt indep w/ ADLsand iADLs Level of Help Sufficient?: Yes Oxygen at Home: Oxygen needed for strenuous activities Activity at Home: Sedentary;Driving Vision: Corrected with glasses Hearing Exceptions: No impairment Who manages medications?: self Pain Assessment: Pain Assessment Pain Scale/Observation: 0-10 Pain Rating Score #1: 3 Sedation Level: 1-Awake and alert Pain Location : Bilateral;Leg Pain Descriptors: Aching Non-Pharmacological Intervention: Rest;Reposition OBJECTIVE: At start of therapy session, patient found in bed and with no alarm. General Appearance: 64yoM in NAD LDAs: ICU: IV's: Peripheral line and Central line, Catheter: External, Oxygen Nasal Cannula , Telemetry, and Wound Vac Edema: minimal edema noted in right lower extremity and minimal edema noted in left lower extremity Vitals: (*Assess the 3 levels of oxygen saturations both for room air and 02 unless rest on room air is 88% or less). Rest BP: 142/77 (96) HR: 80 Sp02 Sp02 94% 87% 91% 4L O2 RA 2L O2 Ex/Gait/Activity With 02 BP: HR: 81 Sp02 90% 2L O2 Post Activity BP: HR: 85 Sp02 Sp02 89% 91% 2L O2 3L O2 Observations: Pt reports that he uses O2 as needed at home. Pt desatted to 87% on RA when at rest in bed. He was placed on 2L, but dropped to 89%. RN and PT/OT agree to place Pt on 3L for comfort at this time. Mental Status/Cognition: Level of Consciousness-Adult: Responds to voice Orientation Level: (A&Ox4) Attention Span: Attends with cues to redirect Memory: Appears intact Following Commands: Follows one step commands with repetition/cues Safety Judgement: Decreased awareness of need for safety Awareness of Errors: Assistance required to identify errors made Problem Solving: Assistance required to generate solutions ROM: RLE: AROM WFL LLE: AROM WFL Strength: RLE:observed movement LLE: observed movement Sensation: RLE: no complaints of numbness or tingling LLE: no complaints of numbness or tingling Mobility: A gait belt and non-slip socks were used for all out of bed activity this date. Bed Mobility: Rolling: Maximal Assistance to Left Supine to Sit: Maximum Assistance;X 2 with HOB in semi-fowlers position Sit to Supine: Maximum Assistance;X 2 Transfers: Sit to Stand: Activity Does Not Occur (no appropriate 2/2 poor sitting balance) Gait: Weight Bearing Status: (no restrictions) Balance: Balance Scales/Tests Used: Sitting: Static/Dynamic Sitting - Static: Poor +;With Both Upper Extremity's Support Sitting - Dynamic: Poor Additional Information: Strong posterior lean ACTIVITY TOLERANCE: Activity Tolerance: Tolerates sitting less than 5 minutes TREATMENT/INTERVENTIONS: evaluation, bed mobility training, balance activities, and monitoring of vitals AM-PAC 6 Clicks Mobility Raw Score:: 8 EDUCATION: While performing PT, Patient was instructed in:functional mobility training, energy conservation, safety awareness/fall precautions , pursed lip breathing techniques, use of call light Presented to patient who demonstrates Fair understanding of instructions given. INFORMED CONSENT TO TREATMENT: Plan of care including recommended therapy, goals and frequency, discussed with patient who understands and agrees to proceed. ASSESSMENT: Patient would benefit from additional Physical Therapy sessions to achieve the following functionalgoals to enhance independence. Short Term Goals: Goal Formation With patient Patient will perform bed mobility with moderate assist and X 2 Patient will transfer sit to/from stand with maximal assist, X 2, and with least restrictive assistive device Patient will transfer bed to/from chair with maximal assist, X 2, and with least restrictive assistive device Senior Living Goal(s): Patient to discharge to appropriate next level of inpatient care. Equipment Issued: gait belt Plan: Transfer training Assistive device training Endurance training Bed mobility training Balance training Energy conservation techniques Safety awareness Home exercise program training wheelchair mobility If patient is discharged from the facility, this note serves as a discharge summary if further physical therapy visits did not occur. Refer to filed flowsheet for further details. Following therapy session, patient left in bed with mattress inflated, with call light within reach, with RN in room, with therapy cues visible on white board, with fall mats in place, all lines/tubes intact. [1] Patient Active Problem List: Other pulmonary embolism without acute cor pulmonale (HCC) Abnormal result of cardiovascular function study Diastolic congestive heart failure (HCC) Morbid (severe) obesity due to excess calories (HCC) Obstructive sleep apnea Hypothyroidism Cardiomegaly Generalized abdominal pain Incarcerated ventral hernia Necrotizing soft tissue infection Peritonitis (HCC) Acute hypoxic respiratory failure (HCC) Septic shock (HCC) LARISA (acute kidney injury) Chronic atrial fibrillation (HCC) Chronic anticoagulation [2] Past Medical History: Diagnosis Date LARISA (acute kidney injury) 07/06/2025 Chronic anticoagulation 07/06/2025 Chronic atrial fibrillation (HCC) 07/06/2025 Necrotizing soft tissue infection 07/06/2025 Peritonitis (HCC) 07/06/2025 Septic shock (HCC) 07/06/2025 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 Recommendations: Discharge OT Discharge Recommendations: Patient would benefit from multidisciplinary therapy Recommended Transportation Method: Stretcher/Ambulance In addition to the 1:1 evaluation of the patient, additional eval time was spent completing the chart review prior to the assessment, completing the multidisciplinary plan of care and education plan post evaluation and communicating results of the eval to other treatment team members. Nurse and Physical Therapy contacted regarding patient status and/or discharge plan. Consult Specifics: Evaluation and Treat Activity Level: as tolerated PRECAUTIONS: Falls, skin DIAGNOSIS: Problem List[1] Past Medical History[2] SUBJECTIVE: Subjective: Pt stating I don't wear socks at home. What matters most to this patient? Not stated Home Situation: Type of Residence: Private Residence Living arrangement: Alone Steps to Enter: No Ramp: Yes Home Structure: One Story Primary Bedroom: First Floor Primary Bathroom: First Floor Bathroom : Tub/Shower Combo Equipment at Home: (cane, home O2, wheelchair, grab bars) Prior Level of Functioning: Mobility: Ambulate-In Home ;Independent;Without Assistive Device;Ambulate-In Community;With Assistive Device;Driving (no AD in home, cane in community) Fallen Within 6 Mos: No Have Help at Home?: Yes, there is help at home now Who assists you at home?: Other(Comment) How often is assistance provided?: pt indep with ADLs [employer], cleaning lady assist with IADLs, neighbor does yardwork Oxygen at Home: (intermittent O2 use - pt endorses checking his O2 at home and donning O2 if my oxygen goes below 90%) Activity at Home: Sedentary Vision: Corrected with glasses Hearing Exceptions: No impairment Who manages medications?: pt Pain Assessment: Pain Assessment Pain Scale/Observation: 0-10 Pain Rating Score #1: 3 Sedation Level: 1-Awake and alert Pain Location : Bilateral;Leg OBJECTIVE: At start of therapy session, patient found in bed General Appearance: Pt in bed upon arrival in [employer]. LDA: ICU: Midline, PICC, wound vac, external catheter, NC Vitals: (*Assess the 3 levels of oxygen saturations both for room air and 02 unless rest on room air is 88% or less). Rest BP: 142/77 (96) HR: 80 Sp02 94% 87% 91% 4L O2 Room Air 2L O2 Sitting EOB BP: HR: 81 Sp02 90% 2L O2 Post Activity BP: HR: 85 Sp02 89% 91% 2L O2 3L O2 Observations: Pt titrated to RA with slight desat - pt placed back on 2L O2 with stable O2 sats during EOB activity. Pt noted with sats in high-80s post session - placed on 3L O2, RN notified. Mental Status/Cognition: Orientation Level: (A&o x4) Attention Span: Attends with cues to redirect Memory: Appears intact Following Commands: Follows one step commands consistently Safety Judgement: Decreased awareness of need for assistance Awareness of Errors: Decreased awareness of deficits;Assistance required to identify errors made;Assistance required to correct errors made Problem Solving: Assistance required to generate solutions;Assistance required to identify errors made;Assistance required to implement solutions UE ROM: RUE: Deficits noted (dec shoulder AROM grossly) LUE: Deficits noted (dec shoulder AROM grossly) Strength: RUE: deficits noted LUE: deficits noted UE Sensation RUE: no complaints of numbness or tingling LUE: no complaints of numbness or tingling Mobility: A gait belt and non-slip socks were used for all out of bed activity this date. Bed Mobility: Supine to Sit: Maximum Assistance;X 2 Sit to Supine: Maximum Assistance;X 2 Transfers: Sit to Stand: Activity Does Not Occur Stand to Sit: Activity Does Not Occur Balance: Max A x1-2 for static sitting EOB for ~4 min, noted with heavy posterior lean. Activities of Daily Living Lower Body Dressing: Maximal Assistance (to don socks in supine) AM-PAC 6 Clicks Daily Activity Raw Score:: 11 TREATMENT / EDUCATION / INTERVENTIONS: While performing OT, Patient was instructed in:functional mobility training, self-care training, cognitive retraining, energy conservation, safety awareness/fall precautions , use of call light Presented to patient who demonstrates Fair understanding of instructions given. INFORMED CONSENT TO TREATMENT: Plan of care including recommended therapy, goals and frequency, discussed with patient who understands and agrees to proceed. ASSESSMENT: Functional performance limited due to: limited activities of daily living, pain, decreased functional mobility, decreased functional balance, decreased safety awareness, and decreased endurance and activity tolerance. Patient continues to benefit from skilled Occupational Therapy to achieve the following functional goals. Short Term Goals: Goal Formation With patient Patient will perform grooming at edge of bed and with stand by assist Patient will perform upper extremity dressing with minimal assist Patient will perform supine to/from sit with maximal assist Patient will transfer sit to stand with maximal assist Senior Living Goal(s): Patient to discharge to appropriate next level of inpatient care. Plan: Patient continues to benefit from skilled therapy services., Continue with goals as established. If patient is discharged from the facility, this note serves as a discharge summary if further occupational therapy visits did not occur. Refer to filed flowsheet for further details. Following therapy session, patient left in bed, with call light within reach, with Wendy CARLSON aware, all lines/tubes intact. KHOA Montalvo, OTR/L, BCPR [1] Patient Active Problem List: Other pulmonary embolism without acute cor pulmonale (HCC) Abnormal result of cardiovascular function study Diastolic congestive heart failure (HCC) Morbid (severe) obesity due to excess calories (HCC) Obstructive sleep apnea Hypothyroidism Cardiomegaly Generalized abdominal pain Incarcerated ventral hernia Necrotizing soft tissue infection Peritonitis (HCC) Acute hypoxic respiratory failure (HCC) Septic shock (HCC) LARISA (acute kidney injury) Chronic atrial fibrillation (HCC) Chronic anticoagulation [2] Past Medical History: Diagnosis Date LARISA (acute kidney injury) 07/06/2025 Chronic anticoagulation 07/06/2025 Chronic atrial fibrillation (HCC) 07/06/2025 Necrotizing soft tissue infection 07/06/2025 Peritonitis (HCC) 07/06/2025 Septic shock (HCC) 07/06/2025 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 * Carlyle Perkins, PT - 07/07/2025 8:13 AM CST [facility] Department of Physical Medicine & Rehabilitation Progress Note Patient: Serjio Sanderson [facility] Record Number: [id number] Date of : 1960 Age: [age] year old 07/07/25 0813 Missed Visit Missed Visit No Activity Order 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 * Katia Hendrix OT - 07/07/2025 7:39 AM CST [facility] Department of Physical Medicine & Rehabilitation Occupational Therapy Progress Note Patient: Serjio Sanderson [facility] Record Number: [id number] Date of : 1960 Age: [age] year old 07/07/25 0739 Missed Visit Missed Visit No Activity Order 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 * Ryan Schilling, PharmD - 07/07/2025 6:32 AM CST ACTIVE CONSULTS TO PHARMACY/DISEASE STATE MONITORING Pharmacy Consult: Vancomycin ASSESSMENT/PLAN Indication: documented nec fasc of ventral hernia with Goal Level: redosing based on random level <20 mcg/ml ID consulted/following: No Assessment: Day of treatment: 7 End of treatment date: to be determined Current dosing regimen: Intermittent dosing based on levels Recent Labs Component Name 07/07/25 0326 07/06/25 0131 07/05/25 2110 07/05/25 0038 07/04/25 1529 07/03/25 2332 07/03/25 1331 07/03/25 0340 07/02/25 0159 07/02/25 0030 CREATININE 1.08 1.27* - 1.21* - 1.33* - - - 1.75* BUN 39* 44* - 40* - 45* - - - 50* VANCORNDM 8.6 - 11.5 - - - - 12.6 - - VANCTROUGH - - - - 9.7* - - - - 39.4* - = values in this interval not displayed. Microbiology: Recent Labs Component Name 07/02/25 0031 MRSADPCR Not detected MRSA positive: No Other pertinent micro: 07/01 Peritoneal Fluid Cx: E coli, prevotella denticola, Phocaeicola (formerly Bacteroides) vulgatus, strep anginosus, naida krusei 07/05 BAL pending Renal: Considered unstable at this time as patient has acutely fluctuating renal function. Level(s): Pharmacokinetic calculations unreliable at this time due to unstable renal function/drug clearance.Continue to target random levels 10-20 mcg/ml with redosing for <20 mcg/ml. Plan Dosing: Will continue serial dosing based on acute renal instability and/or CrCl < 30 mL/min. Will orderdose of 2000 mg to be given on 07/07 at 0700. Monitoring: Will order a vancomycin random level on 07/08 at 0400 and adjust regimen if indicated. Continue to monitor patient???s renal function and cultures as needed. Ryan Schilling, PharmD 07/07/2025 6:[address] [facility] Vancomycin Guideline SUBJECTIVE/OBJECTIVE Serjio Sanderson is a 64 year old male. Height: 6' 0.01 (182.9 cm) Wt 189.1 kg (416 lb 14.2 oz) Body mass index is 56.53 kg/m??. Vancomycin Administrations from OCT (last 72 hours) Date/Time Action Medication Dose Rate 07/06/25 0039 $ New Bag/Syringe vancomycin (Vancocin) 1,500 mg in 530 mL IVPB 1,500 mg 353.33 mL/hr 07/04/252001 $ New Bag/Syringe vancomycin (Vancocin) 1,500 mg in 530 mL IVPB 1,500 mg 353.33 mL/hr 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 * Anne Reyes MD - 07/07/2025 5:20 AM CST Images from the original note were not included. ACUTE CARE SURGERY PROGRESS NOTE Encounter Date: 07/07/2025 Serjio Sanderson Date of : 1960 . Age: [age] year old Room: 336/01 Admit Date: 07/01/2025 5:24 PM Hospital Day: Hospital Day: 6 History of Present Illness: Copied forward from H&P Serjio Sanderson is a 64 year old male W Pmhx CHF, COPD, afib, DVT/PE on Xarelto (last taken 06/30), who presented with signs of an incarcerated, strangulated and perforated ventral hernia with overlying skin changes. After long discussion of risks and benefits (see note from Dr. Bermudez on 07/01), kaushik joyce was taken to the OR late evening of 07/01 and was found to have 6cm x 6cm ventral hernia withincarcerated bowel with large amount of stool encountered, surrounding soft tissue with component of necrotizing soft tissue infection requiring excisional debridement of [id number], small bowel perforation resected and then left in discontinuity with Abthera placed. Procedures: 07/01- lysis of adhesions, SBR, soft tissue excisional debridement, Abthera placement 07/03- SBR, anastomosis, fascial defect closed, wound vac placement Interval: No acute events overnight AF, HDS, remains off pressors On nasal cannula, CPAP overnight Pain well controlled Denies nausea/emesis [place] removed, voiding spontaneously OBJECTIVE Vital signs: Temp: [98.1 ??F (36.7 ??C)-99.1 ??F (37.3 ??C)] Pulse: [64-92] Resp: [14-37] BP: (103-169)/(59-96) O2 %: [40 %-50 %] SpO2: [92 %-100 %] Input and Output: Date 07/06/25699 - 07/07/2565807/07/25699 - 07/08/25658 Shift 3663-4640 3614-9742 9328-3458 24 Hour Total 6231-2729 7977-4668 1413-8347 24 Hour Total INTAKE I.V.(mL/kg/hr) 766.4(0.5) 766.4 TPN/PPN 932.1 932.1 Shift Total(mL/kg) 1698.5(9) 1698.5(9) OUTPUT Urine(mL/kg/hr) 1500(1) 1500 Shift Total(mL/kg) 1500(7.9) 1500(7.9) NET -1500 1698.5 198.5 Weight (kg) 189.1 189.1 189.1 189.1 189.1 189.1 189.1 189.1 Diet: DIET NPO Except: NO EXCEPTIONS TPN - CENTRAL LINE - ADULT Physical Examination: Gen: alert, no acute distress HEENT: AT/NC, EOMI CV: RRR Pulm: non labored respirations on NC Abd: Soft, wound vac in place with serosanginous output, surrounding abdomen skin is erythematous MSK: WWP, 1+ pitting edema bilateral lower extremities Neuro: no focal deficits, moving all extremities Psych: appropriate mood and affect Data Review: LABS: Recent Labs Component Name 07/07/25 0326 07/06/25 1234 07/06/25130 WBC 13.7* 13.6* 15.4* HGB 8.5* 9.2* 8.9* HCT 27.4* 28.7* 28.4* MCV 103.0* 101.4* 101.4* Recent Labs Component Name 07/07/25 0326 07/06/25 0131 07/05/25 0038 CALCIUM 8.4 8.4 8.4 PHOS 3.2 3.5 3.1 Recent Labs Component Name 07/07/25 0326 07/06/25 0131 07/05/25 0038 NA 148* 146* 144 CL 113* 112* 110* CO2 29 28 23 BUN 39* 44* 40* CREATININE 1.08 1.27* 1.21* Recent Labs Component Name 07/02/25 1052 07/01/25 1918 PROT 5.1* 6.2 6.5 ALB 1.5* 2.1* 2.1* ALKPHOS 97 112 115 AST 36* 43* 44* ALT 30 39 41 TBILI 2.2* 1.8* 1.8* DBILI 1.6* 1.3* Recent Labs Component Name 07/07/25 0326 07/06/25 2026 07/06/25 1234 07/02/25 0030 PT 17.8* - 17.3* 28.6* INR 1.5 - 1.4 2.8 PTT 72.2* 41.4* 30.0 35.7 No results for input(s): CKTOTAL, CKMBCK2, TROPONINI in the last 99960 hours. No results for input(s): TACROLIMUS, TACROCARDIO, TACROGASTRO, TACRONEPHRO in the last 66558 hours. Microbiology: Microbiology Results (Displays last 21 days for this encounter ONLY) Procedure Component Value - Date/Time CULTURE FUNGUS OTHER+FUNGUS SMEAR [[id number]] (Normal) Collected: 07/05/25 1047 Lab Status: Preliminary result Specimen: Microbiology from Lung Washing Updated: 07/06/25 1203 Culture Culture in progress Fungus Stain No yeast or hyphae seen No Pneumocystis jirovecii CULTURE BRONCHIAL WASHING+GRAM STAIN [[id number]] Collected: 07/05/25 1046 Lab Status: Preliminary result Specimen: Microbiology from Lung, Left Lower Lobe Updated: 07/06/25 1206 Culture No growth Gram Stain Light Polymorphonuclear cells No organisms seen MRSA PCR [[id number]] (Normal) Collected: 07/02/25 0031 Lab Status: Final result Specimen: Microbiology from Nasal Updated: 07/02/25 0601 MRSA DNA by PCR Not detected Narrative: Methicillin-resistant Staphylococcus aureus (MRSA) DNA is not detected (presumed not colonized withMRSA). CULTURE FLUID+GRAM STAIN [[id number]] (Abnormal) (Susceptibility) Collected: 07/01/25 2350 Lab Status: Preliminary result Specimen: Other from Peritoneal Fluid Updated: 07/05/25 0619 Culture Heavy Escherichia coli Heavy Streptococcus anginosus Rare Naida krusei Comment: Referred to [facility] for susceptibility Referred to [facility] [address] [place] [id number] Gram Stain Light Polymorphonuclear cells Heavy Gram-positive cocci Heavy Gram-negative bacilli Moderate Gram-positive bacilli Rare Yeast Susceptibility Escherichia coli (1) Antibiotic Interpretation Microscan Method Status Amikacin Susceptible <=2 ug/mL SHAMAR Final Ampicillin Susceptible 4 ug/mL SHAMAR Final Ampicillin-sulbactam Susceptible <=2 ug/mL SHAMAR Final Cefazolin See Comment* <=4 ug/mL SHAMAR Final Cefepime Susceptible <=1 ug/mL SHAMAR Final Ceftriaxone Susceptible <=1 ug/mL SHAMAR Final Ciprofloxacin Susceptible <=0.25 ug/mL SHAMAR Final Gentamicin Susceptible <=1 ug/mL SHAMAR Final Meropenem Susceptible <=0.25 ug/mL SHAMAR Final Piperacillin-tazobactam Susceptible <=4 ug/mL SHAMAR Final Tobramycin Susceptible <=1 ug/mL SHAMAR Final Trimethoprim-sulfamethoxazole Susceptible <=20 ug/mL SHAMAR Final Susceptibility Comments *Cefazolin SHAMAR of </=4 cannot distinguish between susceptible or intermediate for systemic breakpoints. If further defined interpretation is needed, call Microbiology and a disk diffusion test will be performed. Streptococcus anginosus (2) Antibiotic Interpretation Microscan Method Status Ampicillin Susceptible <=0.25 ug/mL SHAMAR Final Cefotaxime Susceptible <=0.12 ug/mL SHAMAR Final Ceftriaxone Susceptible 0.25 ug/mL SHAMAR Final Clindamycin Susceptible <=0.25 ug/mL SHAMAR Final Levofloxacin Susceptible <=0.25 ug/mL SHAMAR Final Penicillin G Susceptible <=0.06 ug/mL SHAMAR Final Tetracycline Susceptible 0.5 ug/mL SHAMAR Final Vancomycin Susceptible 0.5 ug/mL SHAMAR Final CULTURE ANAEROBE [[id number]] (Abnormal) Collected: 07/01/25 2350 Lab Status: Preliminary result Specimen: Microbiology from Peritoneal Fluid Updated: 07/04/25 1103 Culture Moderate Phocaeicola (formerly Bacteroides) vulgatus Comment: Beta-lactamase positive Moderate Prevotella denticola Comment: Beta-lactamase negative Moderate Clostridium paraputrificum Comment: Beta-lactamase negative Moderate Finegoldia magna Narrative: Caution: The absence of beta-lactamase does not mean that the organism is susceptible to beta-lactams. Isolates may still be resistant to beta-lactams by a mechanism other than beta-lactamase production. CULTURE FUNGUS OTHER+FUNGUS SMEAR [[id number]] (Abnormal) Collected: 07/01/252349 Lab Status: Preliminary result Specimen: Microbiology from Peritoneal Fluid Updated: 07/02/25 0907 Culture Critical direct smear result Fungus Stain Rare Yeast budding SUSCEPTIBILITY FUNGUS/YEAST [[id number]] Collected: 07/01/252349 Lab Status: In process Specimen: Other from Peritoneal Fluid Updated: 07/05/25 0608 Radiology Impressions: CT Chest Wo Contrast Result Date: 07/04/2025 IMPRESSION: Atelectasis of the lower lobe of the left lung and dependent upper lobe associated withthe decrease volume of the left hemithorax and leftward shift of the heart and mediastinum. Mild dependent atelectasis in the right lung base. Partially imaged upper abdomen shows ventral hernia. > Interpreting Provider: Tray Jarvis MD on 07/04/2025 9:55 AM Medications: -Infusions: Medications[1] -Scheduled Medications: Medications[2] -PRN Medications: Medications[3] Problem List: Incarcerated ventral hernia (POA: Yes) Generalized abdominal pain (POA: Yes) Necrotizing soft tissue infection (POA: No) Peritonitis (HCC) (POA: Yes) Acute hypoxic respiratory failure (HCC) (POA: No) Septic shock (HCC) (POA: Yes) LARISA (acute kidney injury) (POA: Yes) Chronic atrial fibrillation (HCC) (POA: Yes) Chronic anticoagulation (POA: Yes) Diastolic congestive heart failure (HCC) (POA: Yes) Morbid (severe) obesity due to excess calories (HCC) (POA: Yes) Obstructive sleep apnea (POA: Yes) Hypothyroidism (POA: Yes) Cardiomegaly (POA: Yes) Assessment and Plan: Serjio Sanderson is a 64 year old male with PMH of CHF, YEN, A fib on Xarelto (last dose 06/30), three pulmonary embolisms (last in 2011), non specific thyroid condition. Presented with two day history of abdominal pain, with overlying skin ischemia, and CT from OSH with complicated abdominal hernia with fluid collection and soft tissue gas. Now s/p exploratory laparotomy, lysis of adhesions, small bowel resection, skin debridement and Abthera placement. Take back on hospital day 2, patient underwent reanastomosis, fascial closure, debridement of abdominal wall, and wound vac placement. Post operatively remained intubated and sedated on low dose levo, on clinda, micafugin, zosyn, vanc. S/p take back from reanastomosis, fascial closure, debridement of abdominal wall, and wound vac placement. Patient extubated on 07/05. Wound vac changed on 07/06 with healthy appearing granulation tissue. Neuro: #Post- operative pain - scheduled tylenol, PRN diluadid CV: #presumed sepsis #CHF most recently EF 50-55% #afib on xarelto, hx of multiple pulmonary embolisms, sp kaycentra - CHADSVASC score of 4, okay for heparin - Vitals q1h Resp: - extubated 07/05 - on NC - bronchial hygiene FEN/GI: #incarcerated hernia s/p SURESH, SBR now 3 Days Post-Op reanastomsosis, fascial closure, wound vac placement - Diet: okay to DC NGT and trial clear liquid diet if passes bedside swallow - continue TPN - Daily BMP, Mg, Phos - replete as needed - Strict I&Os TID Endo: - 20 mcg levo injection (home dose 25 mg oral) Renal/: - [place] removed 07/06, voiding spontaneously - Cr 1.08 (1.27) - strict I/O Heme/ID: - Hgb 8.5 - Transfuse if Hgb < 7 - Daily CBC - zosyn, clinda, micafungin Msk: - PT/OT- will engage after extubated - OOB and ambulation Wound care: - wound vac to -125 on abdominal wound - last change 07/06 PPX: SCDs, heparin, protonix Disposition: TTF Anne Reyes MD General Surgery PGY-1 [1] heparin, 0-40 Units/kg/hr (Adjusted), Last Rate: 16 Units/kg/hr (07/07/25 8217) TPN - CENTRAL LINE - ADULT, , Last Rate: 61.67 mL/hr at 07/06/25 7001 [2] 0.9% NaCl 3 mL Intracatheter q8h acetaminophen 1,000 mg Intravenous q6h acetylcysteine 3 mL Inhalation q4h WA albuterol-ipratropium 3 mL Inhalation q4h WA artificial tears Each Eye q8h atorvastatin 80 mg Oral AT BEDTIME chlorhexidine 15 mL Mouth/Throat BID clindamycin 900 mg Intravenous q8h furosemide 20 mg Intravenous BID levothyroxine 20 mcg Intravenous q48h micafungin 200 mg Intravenous q24h pantoprazole 40 mg Intravenous QDAY piperacillin-tazobactam 4.5 g Intravenous q8h vancomycin (VANCOCIN) IV dose per pharmacy Does not apply DIRECTED [3] SALINE LOCK, INSERT AND MAINTAIN AND 0.9% NaCl AND 0.9% NaCl heparin AND heparin 100 units/mL HYDROmorphone Cosigned by Kamaljit Nicole MD at 07/07/2025 8:06 PM ELEC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 Associated attestation - Kamaljit Nicole MD - 07/07/2025 8:06 PM ELEC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 Patient seen and examined with residents. I confirm the examination, assessment and plan unless otherwise noted. * Jessica Choi RN - 07/06/2025 7:45 AM CST Care Coordination Progress Note Expected Discharge Date: 07/12/2025 Discharge Plan: Patient remains in the ICU, intubated and sedated. Patient had a bronchoscopy yesterday, 07/05. Disposition will be determined by clinical course. PLOF was independent at home alone. CM will continue to follow patient for any discharge needs. Family Support (Name and Phone): Extended Emergency Contact Information Primary Emergency Contact: Dennis Sanderson Mobile Relation: Son Transportation at Discharge: Family: READMISSION RISK SCORE is 11.8 at 7:45 AM 07/06/2025.: Name: Jessica Choi RN [phone] 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 * Chadwick Dunlap MD - 07/06/2025 6:37 AM CST Images from the original note were not included. Mr. 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 He also has multiple prior abdominal hernia surgeries and presented with incarcerated ventral hernia requiring emergent exploratory laparotomy and SBR on 07/01. He was closed on 07/03 and extubated on 07/05 after bronchoscopy to open collapsed left lung. He is a bit delirious today and will work on getting him mobilized. We are continuing broad spectrum antibiotic coverage in the setting of contamination of his bowel. Continuing TPN alf. I have seen and examined the patient on multidisciplinary rounds. I have reviewed and confirmed thehistory, physical exam, laboratory and radiologic data as documented in the signed ICU note. I havereviewed and discussed my treatment plan with the ICU team and other medical/telecommunications consultant staff, making frequent assessments and decisions regarding this patient's complex medical care. Critical Care time was exclusive of time spent performing separately billed procedures, treating other patients, and teaching. This time was in addition to and separate from critical care provided byother practitioners in my group on this day of service. Critical Care was necessary to treat or prevent imminent or life-threatening deterioration of the following conditions: Hemodynamic instability due to above procedure Acute pain/Acute postoperative pain Acute hypoxemic respiratory failure requiring mechanical ventilation Acute blood loss anemia Undifferentiated shock Treatment and management includes: Acute pain control Optimizing mechanical ventilation for optimal drive pressures, pulmonary toilet Active and frequent monitoring of intake/output and volume status Electrolyte and nutritional repletion Empiric antibiotic therapy for perforated bowel Critical Care time: 39 Chadwick Dunlap MD Web Application Dev Specialist Cardiac Anesthesiology & Critical Care [facility] Anesthesia Critical Care Service Resident Progress Note Admit Date: 07/01/2025 Hospital Day: 6 Subjective: Admission History Serjio Sanderson is a 64-year-old male with a PMHx of congestive heart failure with mild reduced EF of 50-55%, COPD, obstructive sleep apnea (CPAP compliant), atrial fibrillation on Xarelto, hx multiple DVT/PE (last 2016), hypothyroidism, CKD 3a, HTN, and history of multiple prior hernia repairs, including mesh placement and previous wound infection who presented with abdominal pain secondary to incarcerated ventral hernia with serosanguinous drainage. Imaging revealed complicated abdominal hernia with a fluid collection likely representing abscess, and trace soft tissue gas concerning for bowel ischemia or perforation. Perioperative management included administration of Kcentra and fresh frozen plasma for elevated INR, and broad-spectrum antibiotics including vancomycin, clindamycin, and piperacillin-tazobactam forsuspected necrotizing soft tissue infection. He was taken emergently to the operating room overnight 07/01/25 for exploratory laparotomy, with possible bowel resection and skin/soft tissue debridementplanned, given the concern for abscess and possible necrotizing infection. No intraoperative complications or concerns from an anesthesia perspective. From a surgical prospective, 6x6cm ventral hernia with incarcerated bowel. Large amount of stool encountered. Surrounding soft tissue with component of nectrotizing soft tissue infection requiring excisional debridement of [id number]. Small bowel perforation resected and left in discontinuity, Abthera placed. Primary dx: Ventral hernia with perforated and incarcerated bowel with associated necrotizing soft tissue infection Surgical Procedure: 07/01: Exploratory laparotomy, soft tissue excisional debridement, lysis of adhesions, small bowel resection, abthera placement , in discontinuity. EBL: 200, PRBC: na, UoP: 50, Crystalloid: 2000 cc, Colloid: na 07/05: Re-exploratory laparotomy, small bowel resection with re-anastomosis, abdominal fascial closure and subcutaneous wound VAC placement Interval History NAEON. Patient extubated to HFNC yesterday, continues on 30L/50%, denies SOB. Per patient has been mobilizing thick white secretions. IS 600. Scheduled Medications Medications[1] Continuous Medications / Infusions Medications[2] PRN Medications 0.9% NaCl, 1-10 mL, PRN HYDROmorphone, 0.4 mg, q4h PRN Objective: Patient Vitals for the past 8 hrs: BP Temp Pulse Resp SpO2 07/06/25 0630 -- 36.9 ??C 65 22 96 % 07/06/25 0600 103/68 36.8 ??C 69 20 100 % 07/06/25 0500 -- 36.8 ??C 70 19 97 % 07/06/25 0407 -- -- -- -- 94 % 07/06/25 0400 98/58 36.9 ??C 61 13 93 % 07/06/25 0300 116/72 37 ??C 62 13 94 % 07/06/25 0200 120/65 37 ??C 61 15 95 % 07/06/25 0100 133/62 37.1 ??C 58 17 95 % 07/06/25 0007 -- 37.1 ??C 73 14 95 % 07/06/25 0000 106/68 37.1 ??C 59 14 94 % 07/05/25 2300 130/67 37.1 ??C 59 22 94 % Temp (24hrs), Av.4 ??C, Min:36.8 ??C, Max:37.9 ??C Date 07/05/25699 - 07/06/25 0659 07/06/25699 - 07/07/25 0659 Shift 6543-1723 3613-6744 24 Hour Total 4180-8334 2788-1894 24 Hour Total INTAKE I.V.(mL/kg/hr) 96.9(0) 757.1 854 TPN/PPN 1192.7 1192.7 Shift Total(mL/kg) 96.9(0.5) 1949.8(10.3) 2046.7(10.8) OUTPUT Urine(mL/kg/hr) 850(0.4) 950 1800 Drains 0 0 Shift Total(mL/kg) 850(4.5) 950(5) 1800(9.5) NET -753.1 999.8 246.7 Weight (kg) 189.1 189.1 189.1 189.1 189.1 189.1 Diet: NPO, complete bowel rest Physical Examination GENERAL: nad, hfnc HEENT: Head normocephalic and atraumatic. EOM intact. PERRL CARDIOVASCULAR: irregular, normal S1 and S2, no murmurs appreciated LUNGS: diminished bl ABDOMEN: Soft, Wound vac in place w/ SS output EXTREMITIES: Radial pulses 2+ bilaterally. BL LE edema NEUROLOGIC: aox4 Data Review Labs: Hematology: Hematology: Recent Labs Component Name 07/06/25 0131 07/05/25 0038 07/03/25 2332 WBC 15.4* 15.6* 15.5* HGB 8.9* 9.4* 9.4* HCT 28.4* 28.5* 28.9* PLTCOUNT 270 264 221 MCV 101.4* 98.3* 100.3* MCH 31.8 32.4 32.6 MCHC 31.3* 33.0 32.5 Chemistry: Recent Labs Component Name 07/06/25 0131 07/05/25 0038 07/03/25 2332 07/02/25 2318 07/02/25 1052 07/02/25 0030 07/01/251917 NA 146* 144 142 - 138 - 138 POTASSIUM 3.5 3.5 3.6 - 3.8 - 5.0* CL 112* 110* 109* - 107 - 105 CO2 28 23 25 - 22 - 24 ANIONGAP 6 11 8 - 9 - 9 BUN 44* 40* 45* - 47* - 46* CREATININE 1.27* 1.21* 1.33* - 1.48* - 1.74* EGFR 62* 66* 59* - 52* - 43* GLUCOSE 149* 135* 108* - 143* - 90 CALCIUM 8.4 8.4 8.2* - 8.5 - 8.8 MAGNESIUM 2.6 2.6 3.1* - - - - PHOS 3.5 3.1 3.7 - - - - BCR 35* 33* 34* - 32* - 26* OSMOLALITY 316* 310* 306* - 301* - 297* AGRATIO - - - - 0.4* - 0.5* 0.5* LACTICAC - - - - 1.5 - 1.9 - = values in this interval not displayed. Point of Care Glucose Recent Labs Component Name 07/05/25 2109 07/05/25 1819 07/05/25 1354 07/05/25 0857 07/05/25 0456 [id number] 221* 145* 157* 170* 155* Liver and Pancreatic Function: Recent Labs Component Name 07/02/25 1052 07/01/251917 PROT 5.1* 6.2 6.5 ALB 1.5* 2.1* 2.1* DBILI 1.6* 1.3* TBILI 2.2* 1.8* 1.8* ALT 30 39 41 AST 36* 43* 44* ALKPHOS 97 112 115 Coagulation: Recent Labs Component Name 07/02/25 0030 07/01/251917 PT 28.6* 33.1* INR 2.8 3.4 PTT 35.7 - Cardiac Enzymes: No results for input(s): CKMB, CKTOTAL, TROPONINI, CK, TROPIHS, TROPIHSSNGL, DELTATNIBASE in the last 68816 hours. Arterial Blood Gas: Recent Labs Component Name 07/06/25 0131 07/05/25 0038 07/03/25 2332 PH 7.36 7.43 7.39 PCO2 47* 38 43 PO2 188* 176* 120* DBK2HMD 26.6 25.2 26.0 BE 0.8 0.9 0.8 FIO2 60.0 40.0 40.0 Drug Levels: Recent Labs Component Name 07/04/25 1529 07/02/25 0030 VANCTROUGH 9.7* 39.4* Virology/Bacteriology: Recent Labs Component Name 07/02/25 003 MRSADPCR Not detected Blood Bank: Recent Labs Component Name 07/02/25 0049 07/01/252010 ABORH A POS A POS ABSCG - NEG Urine: No results for input(s): SODIUMRAN, POTASSIUMUR, CHLORIDER, CREATININEUR, OSMOUR, LABSPEC in the last 49754 hours. Microbiology: Imaging: *All other imaging reviewed Ventilator Settings: Mode: Rate: Pressure control: PEEP: FiO2: Assessment and Plan: Neurologic: #Acute postoperative pain - Monitor mental status every hour and notify MD of changes. - Sedation/Pain Control: IV Tylenol 1g, Dilaudid 0.4mg q4h prn Respiratory: #hx COPD - On home albuterol, symbicort, fluticasone #hx YEN on CPAP #Acute Hypoxic Respiratory Failure - S/p bedside bronch 07/02/25 w/ suctioning of thick white mucus in ETT/L main bronchus/LLL - CT Chest 07/04/25 w/o contrast: atelectasis of LLL/CHARLETTE, decreased volume of L hemithorax, L shift of heart and mediastinum, no pleural effusion - IPV 07/04/25 with no secretions out - Repeat bronch 07/05 w/ copious thick yellow secretions in L lung - Extubated to HFNC 07/05 - AM CXR w/ slight improvement in white-out lung PLAN: - Titrate FiO2 to the lowest needed to keep SpO2 > 90- 92% - Keep HOB elevated 30 degrees, mouth care, aspiration precautions - Pulmonary toilet: IS + Aerobika - Continue Mucomyst q4hwa - Await 07/05 BAL gram stain + fungal smear Cardiovascular: #Atrial fibrillation, rate controlled #hx HTN #hx Pulmonary HTN #hx HFrEF (EF 55-60%) - On home Coreg 12.5mg BID, Lasix 40mg BID, Xarelto 15mg qd, spironolactone 12.5mg qd, [id number] qhs - S/p R IJ CVC placement 07/02/25 PLAN: - Continue to hold home antihypertensives for now given softer pressures, will CTM BP and slowly add - Hemodynamic monitoring: NIBP - Continue IV Lasix 20mg BID - Restart home atorvastatin 80mg qhs - CHADS-VASc score of 5, start heparin gtt Gastrointestinal: #Ventral hernia with perforated and incarcerated bowel - S/p 07/01/25 exploratory laparotomy with small bowel resection and soft tissue excisional debridement, wound vac placement, in discontinuity - S/p 07/05/25: Re-exploratory laparotomy, small bowel resection with re- anastomosis, abdominal fascial closure and subcutaneous wound VAC placement - S/p R brachial PICC line for TPN by IR 07/05 PLAN: - NGT to LIS - Strict I/Os q1 - Diet: NPO; continue TPN - Wound vac changes per ACS - CTM for return of bowel function Renal: #Acute on chronic kidney injury, resolved - Per chart review baseline Cr 1.2-1.6 as of nephrology visit 2021 - 1.27 (1.21) today, at baseline #Lactic acidosis, resolved PLAN: - BMP qd - CTM UOP: 0.5 ml/kg/h - 2g kphos repleted this am - Continue IV Lasix 20mg BID - D/c marilee Hematologic: #Acute post-op blood loss anemia - Hb 9.2 (10), stable - WBC 15.4 (15.6), stably downtrending - S/p Kcentra and FFP for elevated INR 3.4; repeat INR 2.8 PLAN - CBC qd - Goal Hgb>7, PLTs>50 - Anticoagulation - holding home Xarelto --> Start heparin gtt today Infectious Disease: #Necrotizing soft tissue infection - UA unremarkable, trace protein - MRSA negative - Prelim OR PF culture & gram stain: heavy E coli, heavy Strep anginosus, light polymorphonuclear cells, heavy gram + cocci, heavy gram - bacilli, moderate gram + bacilli, Rare Naida krusei - Prelim OR fungal culture: rare yeast budding - Prelim anaerobe culture: Moderate Phocaeicola vulgatus, Prevotella denticola, Clostridium paraputrificum, Finegoldia magna - Prelim BAL culture & gram stain: Light polymorphonuclear cells, no organisms seen - Prelim BAL fungal culture: TBD Plan: - Await remaining cultures + susceptibilities - Continue current vancomycin, clindamycin, piperacillin-tazobactam, and micafungin regimen given downtrending WBC Endocrine: #hx Hypothyroidism - TSH WNL 07/02/25 - On home Synthroid 25mcg qd PO PLAN: - BG <180 - Accu checks q4h - Continue IV Synthroid 20mcg q48h Prophylaxis: - GI prophylaxis: IV Protonix 40mg qd - DVT prophylaxis:heparin gtt Activity: Strict bedrest Lines/Drains/Airways: PIVs x4 (14 G left AC, 18 G right forearm, 20 G bilateral forearms, NG (07/01-), Wound vac ( 07/03-), R brachial PICC (07/05-) Disposition: ICU management Joleen Fernandes MD Anesthesia Critical Care 07/06/2025 6:37 AM Attestation: Please see note from Dr. Dunlap for further details. [1] 0.9% NaCl 3 mL Intracatheter q8h acetaminophen 1,000 mg Intravenous q6h acetylcysteine 3 mL Inhalation q4h WA albuterol-ipratropium 3 mL Inhalation q6h artificial tears Each Eye q8h chlorhexidine 15 mL Mouth/Throat BID clindamycin 900 mg Intravenous q8h furosemide 20 mg Intravenous BID heparin 7,500 Units Subcutaneous q8h levothyroxine 20 mcg Intravenous q48h micafungin 200 mg Intravenous q24h pantoprazole 40 mg Intravenous QDAY piperacillin-tazobactam 4.5 g Intravenous q8h vancomycin (VANCOCIN) IV dose per pharmacy Does not apply DIRECTED [2] TPN - CENTRAL LINE - ADULT, TPN - CENTRAL LINE - ADULT, , Last Rate: 61.67 mL/hr at 07/05/25 2211 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 * Anne Reyes MD - 07/06/2025 5:26 AM CST Images from the original note were not included. ACUTE CARE SURGERY PROGRESS NOTE Admit: 07/01/2025 5:24 PM Date: 07/06/25 Length of Stay: 5 Attending: Kamaljit Nicole MD POD:3 Days Post-Op SUBJECTIVE: History: Serjio Sanderson is a 64 year old male W Pmhx CHF, COPD, afib, DVT/PE on Xarelto (last taken 06/30), who presented with signs of an incarcerated, strangulated and perforated ventral hernia with overlying skin changes. After long discussion of risks and benefits (see note from Dr. Bermudez on 07/01), saleem freitas was taken to the OR late evening of 07/01 and was found to have 6cm x 6cm ventral hernia with incarcerated bowel with large amount of stool encountered, surrounding soft tissue with component ofnecrotizing soft tissue infection requiring excisional debridement of [id number], small bowel perforation resected and then left in discontinuity with Abthera placed. Procedures: 07/01- lysis of adhesions, SBR, soft tissue excisional debridement, Abthera placement 07/03- SBR, anastomosis, fascial defect closed, wound vac placement Recent Events: 3 Days Post-Op take back procedure - afebrile, hemodynamically stable, not requiring pressors - extubated 07/05 on NC - off sedation, opening eyes, nodding - wound vac in place, holding suction OBJECTIVE: Scheduled Medications: Medications[1] Continuous Medications: Medications[2] PRN Medications: 0.9% NaCl, 1-10 mL, PRN HYDROmorphone, 0.4 mg, q4h PRN Vital Signs: BP 98/58 Pulse 70 Temp 98.2 ??F (36.8 ??C) Resp 19 Ht 1.829 m (6' 0.01) Wt (!) 189.1 kg (416 lb 14.2 oz) SpO2 97% Temp: [98.2 ??F (36.8 ??C)-100.2 ??F (37.9 ??C)] 98.2 ??F (36.8 ??C) Pulse: [54-82] 70 Resp: [13-27] 19 BP: (98-160)/(58-104) 98/58 Arterial Line BP #1: (85-151)/(38-74) 122/56 O2 %: [40 %-100 %] 50 % I&Os: Intake/Output Summary (Last 24 hours) at 07/06/2025 05 Last data filed at 07/06/2025 05 Gross per 24 hour Intake 2313.12 ml Output 1650 ml Net 663.12 ml Physical Exam: Gen: alert, no acute distress HEENT: AT/NC, EOMI CV: RRR Pulm: non labored respirations on NC Abd: Soft, wound vac in place with serosanginous output, surrounding abdomen skin is erythematous MSK: WWP, 1+ pitting edema bilateral lower extremities Neuro: opens eyes to voice Psych: unable to assess Labs: Recent Labs Component Name 07/06/2513007/05/253707/03/25 2332 WBC 15.4* 15.6* 15.5* HGB 8.9* 9.4* 9.4* HCT 28.4* 28.5* 28.9* MCV 101.4* 98.3* 100.3* PLTCOUNT 270 264 221 Recent Labs Component Name 07/06/2513007/05/25 0038 07/03/25 2332 NA 146* 144 142 POTASSIUM 3.5 3.5 3.6 CL 112* 110* 109* CO2 BUN 44* 40* 45* CREATININE 1.27* 1.21* 1.33* GLUCOSE 149* 135* 108* CALCIUM 8.4 8.4 8.2* MAGNESIUM 2.6 2.6 3.1* PHOS 3.5 3.1 3.7 Recent Labs Component Name 07/02/25 1052 07/01/251917 ALKPHOS 97 112 115 ALT 30 39 41 AST 36* 43* 44* PROT 5.1* 6.2 6.5 ALB 1.5* 2.1* 2.1* TBILI 2.2* 1.8* 1.8* DBILI 1.6* 1.3* Recent Labs Component Name 07/02/25 0030 07/01/251917 PT 28.6* 33.1* INR 2.8 3.4 PTT 35.7 - Pathology: 07/01- small bowel with reactive changes Microbiology: Cultures (peritoneal fluid) 07/01: Ecoli and strep angionsus Moderate phocaeicola vulgatus Moderate Prevotella denticola Rare yeast Imaging: CTAP from OSH 07/01, read not available however scan available for review and with complicated abdominal hernia with fluid collection, likely abscess, trace soft tissue gas which is concerning for bowel ischemia/perforation CT chest 07/04: IMPRESSION: Atelectasis of the lower lobe of the left lung and dependent upper lobe associated with the decrease volume of the left hemithorax and leftward shift of the heart and mediastinum. Mild dependent atelectasis in the right lung base. Partially imaged upper abdomen shows ventral hernia. ASSESSMENT & PLAN: Serjio Sanderson is a 64 year old male with PMH of CHF, YEN, A fib on Xarelto (last dose 06/30), three pulmonary embolisms (last in 2011), non specific thyroid condition. Presented with two day history of abdominal pain, with overlying skin ischemia, and CT from OSH with complicated abdominal hernia with fluid collection and soft tissue gas. Now s/p exploratory laparotomy, lysis of adhesions, small bowel resection, skin debridement and Abthera placement. Take back on hospital day 2, patient underwent reanastomosis, fascial closure, debridement of abdominal wall, and wound vac placement. Post operatively remained intubated and sedated on low dose levo, on clinda, micafugin, zosyn, vanc. 3 Days Post-Op from take back from reanastomosis, fascial closure, debridement of abdominal wall, and wound vac placement. Patient extubated on 07/05. Plan for wound vac change today. Neuro: #Post- operative pain - scheduled tylenol, PRN diluadid CV: #presumed sepsis #CHF most recently EF 50-55% #afib on xarelto, hx of multiple pulmonary embolisms, sp kaycentra - CHADSVASC score of 4, okay for heparin - Vitals q1h Resp: - extubated 07/05 - on NC - bronchial hygiene FEN/GI: #incarcerated hernia s/p SURESH, SBR now 3 Days Post-Op reanastomsosis, fascial closure, wound vac placement - Diet: NPO - continue TPN - NG LIWS - Daily BMP, Mg, Phos - replete as needed - Strict I&Os TID Endo: - 20 mcg levo injection (home dose 25 mg oral) Renal/: - [place] in place - Cr 1.27 (1.21) - strict I/O Heme/ID: - Hgb 8.9 - Transfuse if Hgb < 7 - Daily CBC - zosyn, clinda, micafungin Msk: - strict bed rest while intubated - PT/OT- will engage after extubated Wound care: - wound vac to -125 on abdominal wound - plan for wound vac change today by surgery team Lines: L radial A line, PIVs, midline R cephalic vein, R IJ CVC, [place], wound vac PPX: SCDs, heparin, protonix Code: No Order Disposition: ICU Anne Reyes MD Surgery Resident PGY-1 07/06/25 5:29 AM [1] 0.9% NaCl 3 mL Intracatheter q8h acetaminophen 1,000 mg Intravenous q6h acetylcysteine 3 mL Inhalation q4h WA albuterol-ipratropium 3 mL Inhalation q6h artificial tears Each Eye q8h chlorhexidine 15 mL Mouth/Throat BID clindamycin 900 mg Intravenous q8h furosemide 20 mg Intravenous BID heparin 7,500 Units Subcutaneous q8h levothyroxine 20 mcg Intravenous q48h micafungin 200 mg Intravenous q24h pantoprazole 40 mg Intravenous QDAY piperacillin-tazobactam 4.5 g Intravenous q8h vancomycin (VANCOCIN) IV dose per pharmacy Does not apply DIRECTED [2] TPN - CENTRAL LINE - ADULT, , Last Rate: 61.67 mL/hr at 07/05/25 221 Cosigned by Kamaljit Nicole MD at 07/07/2025 8:06 PM E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 Associated attestation - Kamaljit Nicole MD - 07/07/2025 8:06 PM ELEC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 Patient seen and examined with residents. I confirm the examination, assessment and plan unless otherwise noted. * Epifanio Skinner, PharmD - 07/05/2025 11:00 PM CST ACTIVE CONSULTS TO PHARMACY/DISEASE STATE MONITORING Pharmacy Consult: Vancomycin ASSESSMENT/PLAN Indication: documented nec fasc of ventral hernia with Goal Level: redosing based on random level <20 mcg/ml ID consulted/following: No Assessment: Day of treatment: 4 End of treatment date: to be determined Current dosing regimen: Intermittent dosing based on levels Recent Labs Component Name 07/05/25 2110 07/05/25 0038 07/04/25 1529 07/03/25 2332 07/03/25 1331 07/03/25 0340 07/02/25 2318 07/02/25 1052 07/02/25 0159 07/02/25 0030 CREATININE - 1.21* - 1.33* 1.41* - 1.44* - - 1.75* BUN - 40* - 45* 51* - 49* - - 50* VANCORNDM 11.5 - - - - 12.6 - - 37.2 - VANCTROUGH - - 9.7* - - - - - - 39.4* - = values in this interval not displayed. Microbiology: Recent Labs Component Name 07/02/25 0031 MRSADPCR Not detected MRSA positive: No Other pertinent micro: No 07/01 Peritoneal Fluid Cx: E coli, prevotella denticola, Phocaeicola (formerly Bacteroides) vulgatus, strep anginosus, naida krusei 07/05 BAL pending Renal: Considered difficult to accurately assess at this time as patient has acutely fluctuating renal function. Level(s): Pharmacokinetic calculations unreliable at this time due to unstable renal function/drug clearance.Reasonable to continue to target random levels 10-20 mcg/ml with redosing for <20 mcg/ml unless dictated differently in plan below. Plan Dosing: Will continue serial dosing based on acute renal instability and/or CrCl < 30 mL/min. Will orderdose of 1500 mg to be given on 07/05 at 2315. Monitoring: Will order a vancomycin random level on 07/07 at 0000 and adjust regimen if indicated. Continue to monitor patient???s renal function and cultures as needed. Epifanio Skinner PharmD 07/05/2025 10:[address] [facility] Vancomycin Guideline SUBJECTIVE/OBJECTIVE Serjio Sanderson is a 64 year old male. Height: 6' 0.01 (182.9 cm) Wt 189.1 kg (416 lb 14.2 oz) Body mass index is 56.53 kg/m??. Vancomycin Administrations from OCT (last 72 hours) Date/Time Action Medication Dose Rate 07/04/252001 $ New Bag/Syringe vancomycin (Vancocin) 1,500 mg in 530 mL IVPB 1,500 mg 353.33 mL/hr 07/03/25 1701 $ New Bag/Syringe vancomycin (Vancocin) 1,000 mg in NaCl IV 0.9 % 250 mL IVPB 1,000 mg 250 mL/hr 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 * Katia Valencia RCP - 07/05/2025 11:00 AM CST Assisted with bedside bronchoscopy. [place] protocol checklist completed prior to procedure with attending physician present. FiO2 increased to 1.0 and vent settings/alarms adjusted appropriately for procedure. SpO2 alarm set to audible. Scope lubricated with silco spray . All lung segments/airways inspected. Patient tolerated procedure well. Vent settings & alarms returned to previous settings. Disposable bronchoscope used. [facility] [place] [facility]. 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 * Anne Reyes MD - 07/05/2025 8:00 AM CST Images from the original note were not included. ACUTE CARE SURGERY PROGRESS NOTE Admit: 07/01/2025 5:24 PM Date: 07/05/25 Length of Stay: 4 Attending: Erinn Murillo MD POD:2 Days Post-Op SUBJECTIVE: History: Serjio Sanderson is a 64 year old male W Pmhx CHF, COPD, afib, DVT/PE on Xarelto (last taken 06/30), who presented with signs of an incarcerated, strangulated and perforated ventral hernia with overlying skin changes. After long discussion of risks and benefits (see note from Dr. Bermudez on 07/01), saleem freitas was taken to the OR late evening of 07/01 and was found to have 6cm x 6cm ventral hernia with incarcerated bowel with large amount of stool encountered, surrounding soft tissue with component ofnecrotizing soft tissue infection requiring excisional debridement of [id number], small bowel perforation resected and then left in discontinuity with Abthera placed. Procedures: 07/01- lysis of adhesions, SBR, soft tissue excisional debridement, Abthera placement 07/03- SBR, anastomosis, fascial defect closed, wound vac placement Recent Events: 2 Days Post-Op take back procedure - afebrile, hemodynamically stable, not requiring pressors - intubated, FiO2 40%. PEEP 15 - off sedation, opening eyes, nodding - wound vac in place, holding suction OBJECTIVE: Scheduled Medications: Medications[1] Continuous Medications: Medications[2] PRN Medications: 0.9% NaCl, 1-10 mL, PRN fentNYL, 50 mcg, BOLUS FROM BAG PRN Vital Signs: BP 98/51 Pulse 57 Temp 99 ??F (37.2 ??C) (Bladder) Resp 20 Ht 1.829 m (6' 0.01) Wt (!) 189.1 kg (416 lb 14.2 oz) SpO2 96% Temp: [99 ??F (37.2 ??C)-99.5 ??F (37.5 ??C)] 99 ??F (37.2 ??C) Pulse: [57-79] 57 Resp: [12-21] 20 Arterial Line BP #1: (99-139)/(43-89) 127/58 O2 %: [40 %] 40 % I&Os: Intake/Output Summary (Last 24 hours) at 07/05/2025 0800 Last data filed at 07/05/2025 0628 Gross per 24 hour Intake 998.72 ml Output 2510 ml Net -1511.28 ml Physical Exam: Gen: intubated, no acute distress HEENT: AT/NC, EOMI CV: RRR Pulm: intubated Abd: Soft, wound vac in place with serosanginous output, surrounding abdomen skin is erythematous MSK: WWP, 1+ pitting edema bilateral lower extremities Neuro: opens eyes to voice Psych: unable to assess Labs: Recent Labs Component Name 07/05/25 0038 07/03/25 2332 07/03/25 1331 WBC 15.6* 15.5* 17.9* HGB 9.4* 9.4* 9.4* HCT 28.5* 28.9* 29.3* MCV 98.3* 100.3* 102.4* PLTCOUNT 264 221 246 Recent Labs Component Name 07/05/25 0038 07/03/25 2332 07/03/251 07/02/25 2318 NA 144 142 140 141 POTASSIUM 3.5 3.6 3.9 4.1 CL 110* 109* 108* 107 CO2 23 25 24 24 BUN 40* 45* 51* 49* CREATININE 1.21* 1.33* 1.41* 1.44* GLUCOSE 135* 108* 142* 134* CALCIUM 8.4 8.2* 8.5 8.4 MAGNESIUM 2.6 3.1* - 2.9* PHOS 3.1 3.7 - 5.2* Recent Labs Component Name 07/02/25 1052 07/01/251917 ALKPHOS 97 112 115 ALT 30 39 41 AST 36* 43* 44* PROT 5.1* 6.2 6.5 ALB 1.5* 2.1* 2.1* TBILI 2.2* 1.8* 1.8* DBILI 1.6* 1.3* Recent Labs Component Name 07/02/25 0030 07/01/251917 PT 28.6* 33.1* INR 2.8 3.4 PTT 35.7 - Pathology: 07/01- small bowel with reactive changes Microbiology: Cultures (peritoneal fluid) 07/01: Ecoli and strep angionsus Moderate phocaeicola vulgatus Moderate Prevotella denticola Rare yeast Imaging: CTAP from OSH 07/01, read not available however scan available for review and with complicated abdominal hernia with fluid collection, likely abscess, trace soft tissue gas which is concerning for bowel ischemia/perforation CT chest 07/04: IMPRESSION: Atelectasis of the lower lobe of the left lung and dependent upper lobe associated with the decrease volume of the left hemithorax and leftward shift of the heart and mediastinum. Mild dependent atelectasis in the right lung base. Partially imaged upper abdomen shows ventral hernia. ASSESSMENT & PLAN: Serjio Sanderson is a 64 year old male with PMH of CHF, YEN, A fib on Xarelto (last dose 06/30), three pulmonary embolisms (last in 2011), non specific thyroid condition. Presented with two day history of abdominal pain, with overlying skin ischemia, and CT from OSH with complicated abdominal hernia with fluid collection and soft tissue gas. Now s/p exploratory laparotomy, lysis of adhesions, small bowel resection, skin debridement and Abthera placement. Take back on hospital day 2, patient underwent reanastomosis, fascial closure, debridement of abdominal wall, and wound vac placement. Post operatively remained intubated and sedated on low dose levo, on clinda, micafugin, zosyn, vanc. 2 Days Post-Op from take back from reanastomosis, fascial closure, debridement of abdominal wall, and wound vac placement. Remains intubated, no longer on pressors. Continue TPN pending return of bowel function. Neuro: #Post- operative pain #sedation iso intubation - currently off all sedation CV: #presumed sepsis #CHF most recently EF 50-55% #afib on xarelto, hx of multiple pulmonary embolisms, sp kaycentra - CHADSVASC score of 4, okay for heparin - Vitals q1h Resp: #intubated, sedated - ventilator management per ACC - extubation as able FEN/GI: #incarcerated hernia s/p SURESH, SBR now 2 Days Post-Op reanastomsosis, fascial closure, wound vac placement - Diet: NPO - continue TPN - NG LIWS - Daily BMP, Mg, Phos - replete as needed - Strict I&Os TID Endo: - 20 mcg levo injection (home dose 25 mg oral) Renal: - [place] while intubated and sedated - Continue to monitor post-op UOP Heme/ID: - Hgb 9.4 - Transfuse if Hgb < 7 - Daily CBC - Peritoneal fluid growing e coli, strep angionsus, rare budding yeast, moderate phocaeicola vulgatus, moderate Prevotella denticola - zosyn, clinda, micafungin Msk: - strict bed rest while intubated - PT/OT- will engage after extubated Wound care: - abthera to -125 on abdominal wound - surgery to change tomorrow Lines: L radial A line, PIVs, midline R cephalic vein, R IJ CVC, [place], wound vac, ETT PPX: SCDs, heparin, protonix Code: No Order Disposition: ICU Anne Reyes MD Surgery Resident PGY-1 07/05/25 8:00 AM [1] 0.9% NaCl 3 mL Intracatheter q8h artificial tears Each Eye q8h chlorhexidine 15 mL Mouth/Throat BID clindamycin 900 mg Intravenous q8h heparin 7,500 Units Subcutaneous q8h levothyroxine 20 mcg Intravenous q48h micafungin 200 mg Intravenous q24h pantoprazole 40 mg Intravenous QDAY piperacillin-tazobactam 4.5 g Intravenous q8h vancomycin (VANCOCIN) IV dose per pharmacy Does not apply DIRECTED [2] fentaNYL, 0-200 mcg/hr, Last Rate: Stopped (07/03/25 1600) propofol, 0-50 mcg/kg/min, Last Rate: Stopped (07/03/25 1543) TPN - CENTRAL LINE - ADULT - DAY 1, , Last Rate: 62.5 mL/hr at 07/05/25 0628 TPN - CENTRAL LINE - ADULT, Cosigned by Kamaljit Nicole MD at 07/05/2025 9:38 AM ELEC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 Associated attestation - Kamaljit Nicole MD - 07/05/2025 9:38 AM ELEC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 Patient seen and examined with residents. I confirm the examination, assessment and plan unless otherwise noted. * Chadwick Dunlap MD - 07/05/2025 6:38 AM CST Images from the original note were not included. Mr. 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 He also has multiple prior abdominal hernia surgeries and presented with incarcerated ventral hernia requiring emergent exploratory laparotomy and SBR on 07/01. He was closed on 07/03 and remains intubated and sedated and now on no vasopressor support. Bronchoscopy demonstrated thick secretions in the left lung, which were able to remove. He is [employer]estrong and follows commands well, so we are proceeding extubation as the following criteria have been met: Oxygenation: PaO2 > 60 mm Hg and PaO2/FiO2 > 150-200 mm Hg; SpO2 >=90% with FiO2 <=0.4 Ventilatory Support: PEEP <=8-10 cm H2O; pressure support <=7-12 cm H2O He even meets Predictive Measures: Rapid shallow breathing index <105 with a negative inspiratory force <-30 cm H2O We are continuing broad spectrum antibiotic coverage in the setting of contamination of his bowel. I have seen and examined the patient on multidisciplinary rounds. I have reviewed and confirmed thehistory, physical exam, laboratory and radiologic data as documented in the signed ICU note. I havereviewed and discussed my treatment plan with the ICU team and other medical/telecommunications consultant staff, making frequent assessments and decisions regarding this patient's complex medical care. Critical Care time was exclusive of time spent performing separately billed procedures, treating other patients, and teaching. This time was in addition to and separate from critical care provided byother practitioners in my group on this day of service. Critical Care was necessary to treat or prevent imminent or life-threatening deterioration of the following conditions: Hemodynamic instability due to above procedure Acute pain/Acute postoperative pain Acute hypoxemic respiratory failure requiring mechanical ventilation Acute blood loss anemia Undifferentiated shock Treatment and management includes: Acute pain control Optimizing mechanical ventilation for optimal drive pressures, pulmonary toilet Active and frequent monitoring of intake/output and volume status Electrolyte and nutritional repletion Empiric antibiotic therapy for perforated bowel Critical Care time: 39 Chadwick Dunlap MD Web Application Dev Specialist Cardiac Anesthesiology & Critical Care [facility] Anesthesia Critical Care Service Resident Progress Note Admit Date: 07/01/2025 Hospital Day: 5 Subjective: Admission History Serjio Sanderson is a 64-year-old male with a PMHx of congestive heart failure with mild reduced EF of 50-55%, COPD, obstructive sleep apnea (CPAP compliant), atrial fibrillation on Xarelto, hx multiple DVT/PE (last 2016), hypothyroidism, CKD 3a, HTN, and history of multiple prior hernia repairs, including mesh placement and previous wound infection who presented with abdominal pain secondary to incarcerated ventral hernia with serosanguinous drainage. Imaging revealed complicated abdominal hernia with a fluid collection likely representing abscess, and trace soft tissue gas concerning for bowel ischemia or perforation. Perioperative management included administration of Kcentra and fresh frozen plasma for elevated INR, and broad-spectrum antibiotics including vancomycin, clindamycin, and piperacillin-tazobactam forsuspected necrotizing soft tissue infection. He was taken emergently to the operating room overnight 07/01/25 for exploratory laparotomy, with possible bowel resection and skin/soft tissue debridementplanned, given the concern for abscess and possible necrotizing infection. No intraoperative complications or concerns from an anesthesia perspective. From a surgical prospective, 6x6cm ventral hernia with incarcerated bowel. Large amount of stool encountered. Surrounding soft tissue with component of nectrotizing soft tissue infection requiring excisional debridement of [id number]. Small bowel perforation resected and left in discontinuity, Abthera placed. Primary dx: Ventral hernia with perforated and incarcerated bowel with associated necrotizing soft tissue infection Surgical Procedure: 07/01: Exploratory laparotomy, soft tissue excisional debridement, lysis of adhesions, small bowel resection, abthera placement , in discontinuity. EBL: 200, PRBC: na, UoP: 50, Crystalloid: 2000 cc, Colloid: na 07/05: Re-exploratory laparotomy, small bowel resection with re-anastomosis, abdominal fascial closure and subcutaneous wound VAC placement Interval History Per RT failed PSV trial yesterday, triggered back up rate immediately so was placed back on PC overnight. Continues to be HDS off of all pressors, good neuro status off sedation, intubated, received x1 of IV Lasix 40mg ovn. Plan for bronch this AM. Scheduled Medications Medications[1] Continuous Medications / Infusions Medications[2] PRN Medications 0.9% NaCl, 1-10 mL, PRN fentNYL, 50 mcg, BOLUS FROM BAG PRN Objective: Patient Vitals for the past 8 hrs: Temp Temp src Pulse Resp SpO2 07/05/25 0600 37.2 ??C Bladder 57 20 96 % 07/05/25 0500 37.3 ??C Bladder 70 15 100 % 07/05/25 0400 37.5 ??C Bladder 62 20 100 % 07/05/25 0300 37.5 ??C Bladder 68 15 97 % 07/05/25 0200 37.5 ??C Bladder 76 14 98 % 07/05/25 0100 37.5 ??C Bladder 68 15 99 % 07/05/25 0000 37.4 ??C Bladder 75 16 98 % 07/04/25 2300 37.4 ??C Bladder 79 15 99 % Temp (24hrs), Av.4 ??C, Min:37.2 ??C, Max:37.5 ??C Date 07/04/25 07 - 07/05/25 0659 07/05/25 0700 - 07/06/25 0659 Shift 3933-6402 7880-2674 24 Hour Total 1924-4847 8400-5657 24 Hour Total INTAKE I.V.(mL/kg/hr) 126.2(0.1) 514.4 640.7 TPN/PPN 484.3 484.3 Shift Total(mL/kg) 126.2(0.7) 998.7(5.3) 1124.9(5.9) OUTPUT Urine(mL/kg/hr) 1400(0.6) 1110 2510 Shift Total(mL/kg) 1400(7.4) 1110(5.9) 2510(13.3) NET -1273.8 -111.3 -1385.1 Weight (kg) 189.1 189.1 189.1 189.1 189.1 189.1 Diet: NPO, complete bowel rest Physical Examination GENERAL: Intubated but responsive HEENT: Head normocephalic and atraumatic. EOM intact. PERRL CARDIOVASCULAR: afib rate controlled, normal S1 and S2, no murmurs appreciated LUNGS: mechanical breath sounds ABDOMEN: Soft, Wound vac in place w/ SS output EXTREMITIES: Radial pulses 2+ bilaterally. BL LE edema NEUROLOGIC: drowsy but responsive to voice Data Review Labs: Hematology: Hematology: Recent Labs Component Name 07/05/253707/03/25233107/03/25 1331 WBC 15.6* 15.5* 17.9* HGB 9.4* 9.4* 9.4* HCT 28.5* 28.9* 29.3* PLTCOUNT 264 221 246 MCV 98.3* 100.3* 102.4* MCH 32.4 32.6 32.9 MCHC 33.0 32.5 32.1 Chemistry: Recent Labs Component Name 07/05/253707/03/25233107/03/25 1331 07/02/25 2318 07/02/25 1052 07/02/25 0030 07/01/25 1918 NA 144 142 140 141 138 - 138 POTASSIUM 3.5 3.6 3.9 4.1 3.8 - 5.0* CL 110* 109* 108* 107 107 - 105 CO2 23 25 24 24 22 - 24 ANIONGAP 11 8 8 10 9 - 9 BUN 40* 45* 51* 49* 47* - 46* CREATININE 1.21* 1.33* 1.41* 1.44* 1.48* - 1.74* EGFR 66* 59* 55* 54* 52* - 43* GLUCOSE 135* 108* 142* 134* 143* - 90 CALCIUM 8.4 8.2* 8.5 8.4 8.5 - 8.8 MAGNESIUM 2.6 3.1* - 2.9* - - - PHOS 3.1 3.7 - 5.2* - - - BCR 33* 34* 36* 34* 32* - 26* OSMOLALITY 310* 306* 306* 307* 301* - 297* AGRATIO - - - - 0.4* - 0.5* 0.5* LACTICAC - - - - 1.5 - 1.9 - = values in this interval not displayed. Point of Care Glucose Recent Labs Component Name 07/05/25 0456 07/05/25 0030 07/05/25 0027 07/04/25 2008 07/04/25 1344 [id number] 155* 131* 132* 98 109* Liver and Pancreatic Function: Recent Labs Component Name 07/02/25 1052 07/01/251917 PROT 5.1* 6.2 6.5 ALB 1.5* 2.1* 2.1* DBILI 1.6* 1.3* TBILI 2.2* 1.8* 1.8* ALT 30 39 41 AST 36* 43* 44* ALKPHOS 97 112 115 Coagulation: Recent Labs Component Name 07/02/25 0030 07/01/251917 PT 28.6* 33.1* INR 2.8 3.4 PTT 35.7 - Cardiac Enzymes: No results for input(s): CKMB, CKTOTAL, TROPONINI, CK, TROPIHS, TROPIHSSNGL, DELTATNIBASE in the last 28469 hours. Arterial Blood Gas: Recent Labs Component Name 07/05/25 0038 07/03/25 2332 07/03/25 1331 PH 7.43 7.39 7.29* PCO2 38 43 46* PO2 176* 120* 167* [id number] 25.2 26.0 22.1 BE 0.9 0.8 -4.4* FIO2 40.0 40.0 55.0 Drug Levels: Recent Labs Component Name 07/04/25 1529 07/02/25 0030 VANCTROUGH 9.7* 39.4* Virology/Bacteriology: Recent Labs Component Name 07/02/25 0031 MRSADPCR Not detected Blood Bank: Recent Labs Component Name 07/02/25 0049 07/01/252010 ABORH A POS A POS ABSCG - NEG Urine: No results for input(s): SODIUMRAN, POTASSIUMUR, CHLORIDER, CREATININEUR, OSMOUR, LABSPEC in the last 85175 hours. Microbiology: Imaging: *All other imaging reviewed Ventilator Settings: Mode: PCMV Rate: 15 Pressure control: 15 PEEP: 15 FiO2: 40% Assessment and Plan: Neurologic: #Acute postoperative pain - Monitor mental status every hour and notify MD of changes. - Sedation/Pain Control: fentanyl and propofol off but available; added Dilaudid 0.4mg q4h prn Respiratory: #hx COPD - On home albuterol, symbicort, fluticasone #hx YEN on CPAP #Acute Hypoxic Respiratory Failure - S/p bedside bronch 07/02/25 w/ suctioning of thick white mucus in ETT/L main bronchus/LLL - CT Chest 07/04/25 w/o contrast: atelectasis of LLL/CHARLETTE, decreased volume of L hemithorax, L shift of heart and mediastinum, no pleural effusion - IPV 07/04/25 with no secretions out - AM CXR w/ persistent but slightly improved L-sided congestion/collapse - S/p IV Lasix 40mg x1 overnight PLAN: - Titrate FiO2 to the lowest needed to keep SpO2 > 90- 92% - Keep HOB elevated 30 degrees, mouth care, aspiration precautions - Pulmonary toilet: IPV QID + chest vest therapy - Repeat bronch at bedside this AM given failed removal of mucus plugs w/ respiratory percussive therapy-- copious amount of thick yellow secretions found in Left lung; LLL BAL sample sent for culture - Tolerating SBT well w/ RSBI 50, plan to extubate today to HFNC Cardiovascular: #Atrial fibrillation, rate controlled #hx HTN #hx Pulmonary HTN #hx HFrEF (EF 55-60%) - On home Coreg 12.5mg BID, Lasix 40mg BID, Xarelto 15mg qd, spironolactone 12.5mg qd, [id number] qhs - S/p R IJ CVC placement 07/02/25 PLAN: - Continue to hold home antihypertensives for now - Hemodynamic monitoring: NIBP - CHADS-VASc score of 5, likely start heparin gtt tomorrow after patient is extubated - D/c arterial line Gastrointestinal: #Ventral hernia with perforated and incarcerated bowel - S/p 07/01/25 exploratory laparotomy with small bowel resection and soft tissue excisional debridement, wound vac placement, in discontinuity - S/p 07/05/25: Re-exploratory laparotomy, small bowel resection with re- anastomosis, abdominal fascial closure and subcutaneous wound VAC placement PLAN: - NGT to LIS - Strict I/Os q1 - Diet: NPO; continue TPN - IR consulted for PICC line access today for long-term TPN - Wound vac changes per ACS Renal: #Acute on chronic kidney injury, resolved - Per chart review baseline Cr 1.2-1.6 as of nephrology visit 2021 - 1.21 (1.33) today, at baseline #Lactic acidosis, resolved PLAN: - BMP qd - Continue [place] - CTM UOP: 0.6 ml/kg/h - Start IV Lasix 20mg BID Hematologic: #Acute post-op blood loss anemia - Hb 9.4 (9.4), stable - WBC 15.6 (15.5, 17.9), stably downtrending - S/p Kcentra and FFP for elevated INR 3.4; repeat INR 2.8 PLAN - CBC qd - Goal Hgb>7, PLTs>50 - Anticoagulation - holding home Xarelto --> continuing prophylactic heparin for now Infectious Disease: #Necrotizing soft tissue infection - UA unremarkable, trace protein - MRSA negative - Prelim OR PF culture & gram stain: heavy E coli, heavy Strep anginosus, light polymorphonuclear cells, heavy gram + cocci, heavy gram - bacilli, moderate gram + bacilli, Rare Naida krusei - Prelim OR fungal culture: rare yeast budding - Prelim anaerobe culture: Moderate Phocaeicola vulgatus, Prevotella denticola, Clostridium paraputrificum, Finegoldia magna Plan: - Await remaining cultures + susceptibilities - Continue clindamycin, piperacillin-tazobactam, and micafungin Endocrine: #Hypoalbuminemia #hx Hypothyroidism - TSH WNL 07/02/25 - On home Synthroid 25mcg qd PO PLAN: - BG <180 - Accu checks q4h - Continue IV Synthroid 20mcg q48h Prophylaxis: - GI prophylaxis: IV Protonix 40mg qd - DVT prophylaxis: SQ heparin 7500u Activity: Strict bedrest Lines/Drains/Airways: PIVs x4 (14 G left AC, 18 G right forearm, 20 G bilateral forearms , ETT- 8.0(07/01- ), [place] ( 07/01- ), NG (07/01-), Wound vac ( 07/03-), R IJ CVC (07/02-) Disposition: ICU management Joleen Fernandes MD Anesthesia Critical Care 07/05/2025 6:38 AM Attestation: Please see note from Dr. Dunlap for further details. [1] 0.9% NaCl 3 mL Intracatheter q8h artificial tears Each Eye q8h chlorhexidine 15 mL Mouth/Throat BID clindamycin 900 mg Intravenous q8h heparin 7,500 Units Subcutaneous q8h levothyroxine 20 mcg Intravenous q48h micafungin 200 mg Intravenous q24h pantoprazole 40 mg Intravenous QDAY piperacillin-tazobactam 4.5 g Intravenous q8h vancomycin (VANCOCIN) IV dose per pharmacy Does not apply DIRECTED [2] fentaNYL, 0-200 mcg/hr, Last Rate: Stopped (07/03/25 1600) propofol, 0-50 mcg/kg/min, Last Rate: Stopped (07/03/25 1543) TPN - CENTRAL LINE - ADULT - DAY 1, , Last Rate: 62.5 mL/hr at 07/05/25 0628 TPN - CENTRAL LINE - ADULT, 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 * Simon Edmondson RN - 07/05/2025 6:24 AM CST Problem: Pain/Discomfort Goal: Patient exhibits reduced pain/discomfort as evidenced by pain scores Outcome: Not Progressing Goal: Patient uses pharmacological and non-pharmacological pain management strategies. Outcome: Not Progressing Goal: Patient verbalizes acceptable level of pain relief and ability to engage in desired activity. Outcome: Not Progressing Problem: Restraint Safety Goal: Free from restraint(s) Description: INTERVENTIONS: Outcome: Not Progressing Goal: Remains free of injury from restraints Description: INTERVENTIONS: Outcome: Not Progressing Problem: Nutrient: Increased nutrient needs (specify) Goal: Total intake will meet estimated nutrient needs Outcome: Not Progressing Problem: Fall Risk Goal: Fall risk and fall related injury risk are minimized (interventions related to the fall risk can be found in the flowsheet documentation) Outcome: Not Progressing Problem: Respiratory - Adult Goal: Achieves optimal ventilation and oxygenation Description: INTERVENTIONS: Outcome: Not Progressing Problem: Neurosensory - Adult Goal: Achieves stable or improved neurological status Description: INTERVENTIONS Outcome: Not Progressing Goal: Remains free of injury related to seizures activity Description: INTERVENTIONS: Outcome: Not Progressing Goal: Achieves maximal functionality and self care Description: INTERVENTIONS: Outcome: Not Progressing 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 Epifanio Herrera, PharmMing - 07/04/2025 6:37 PM CST ACTIVE CONSULTS TO PHARMACY/DISEASE STATE MONITORING Pharmacy Consult: Vancomycin ASSESSMENT/PLAN Indication: documented nec fasc of ventral hernia with Goal Level: redosing based on random level <20 mcg/ml ID consulted/following: No Assessment: Day of treatment: 3 End of treatment date: to be determined Current dosing regimen: Intermittent dosing based on levels Recent Labs Component Name 07/04/25 1529 07/03/25 2332 07/03/25 1331 07/03/25 0340 07/02/25 2318 07/02/25 1052 07/02/25 0159 07/02/25 0030 CREATININE - 1.33* 1.41* - 1.44* 1.48* - 1.75* BUN - 45* 51* - 49* 47* - 50* VANCORNDM - - - 12.6 - - 37.2 - VANCTROUGH 9.7* - - - - - - 39.4* Microbiology: Recent Labs Component Name 07/02/25 0031 MRSADPCR Not detected MRSA positive: No Other pertinent micro: Yes 07/01 Peritoneal Fluid Cx: E coli, prevotella denticola, Phocaeicola (formerly Bacteroides) vulgatus Renal: Considered difficult to accurately assess at this time as patient has acutely fluctuating renal function. Level(s): Pharmacokinetic calculations unreliable at this time due to unstable renal function/drug clearance.Reasonable to continue to target random levels 10-20 mcg/ml with redosing for <20 mcg/ml unless dictated differently in plan below. Plan Dosing: Will continue serial dosing based on acute renal instability and/or CrCl < 30 mL/min. Will orderdose of 1500 mg to be given on 07/04 at 1900. Monitoring: Will order a vancomycin random level on 07/05 at 2000 and adjust regimen if indicated. Continue to monitor patient???s renal function and cultures as needed. Epifanio Skinner, Eloina 07/04/2025 6:[address] [facility] Vancomycin Guideline SUBJECTIVE/OBJECTIVE Serjio Sanderson is a 64 year old male. Height: 6' 0.01 (182.9 cm) Wt 189.1 kg (416 lb 14.2 oz) Body mass index is 56.53 kg/m??. Vancomycin Administrations from OCT (last 72 hours) Date/Time Action Medication Dose Rate 07/03/25 1701 $ New Bag/Syringe vancomycin (Vancocin) 1,000 mg in NaCl IV 0.9 % 250 mL IVPB 1,000 mg 250 mL/hr 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 * Rashmi Mccord RCP - 07/04/2025 6:01 PM CST Pt placed on SPONT by . Pt rate triggered backup rate. Pt placed back on PC. RT was asked to attempt both vest and IPV. 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 * Marquita Scales - 07/04/2025 1:59 PM CST Unit biometrics consultant had attempted pastoral care consult yesterday and was unable to as pt was intubated and no family was present. Today, pt's son Dennis was at bedside. Pt seemed alert as at times he opened his eyes and nodded when I addressed him. Although there are no immediate pastoral care needs at this time, Dennis expressed gratitude for stopping by. Judie Scales 07/04/2025 2:01 PM 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 * Jessica Choi, ROBYN - 07/04/2025 11:12 AM CST Care Coordination Progress Note Expected Discharge Date: 07/09/2025 Discharge Plan: Patient remains in the ICU, intubated and sedated. Patient went for a chest CT. Disposition will be determined by clinical course. PLOF was independent at home alone. CM will continueto follow patient for any discharge needs. Family Support (Name and Phone): Extended Emergency Contact Information Primary Emergency Contact: Dennis Sanderson Mobile Relation: Son Transportation at Discharge: Family: READMISSION RISK SCORE is 10.6 at 11:13 AM 07/04/2025.: Name: Jessica Choi RN [phone] 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 * Rohini Wharton MD - 07/04/2025 10:52 AM CST Images from the original note were not included. ACUTE CARE SURGERY PROGRESS NOTE Admit: 07/01/2025 5:24 PM Date: 07/04/25 Length of Stay: 3 Attending: Erinn Murillo MD POD:1 Day Post-Op SUBJECTIVE: History: Serjio Sanderson is a 64 year old male W Pmhx CHF, COPD, afib, DVT/PE on Xarelto (last taken 06/30), who presented with signs of an incarcerated, strangulated and perforated ventral hernia with overlying skin changes. After long discussion of risks and benefits (see note from Dr. Bermudez on 07/01), saleem freitas was taken to the OR late evening of 07/01 and was found to have 6cm x 6cm ventral hernia with incarcerated bowel with large amount of stool encountered, surrounding soft tissue with component ofnecrotizing soft tissue infection requiring excisional debridement of [id number], small bowel perforation resected and then left in discontinuity with Abthera placed. Procedures: 07/01- lysis of adhesions, SBR, soft tissue excisional debridement, Abthera placement 07/03- SBR, anastomosis, fascial defect closed, wound vac placement Recent Events: 1 Day Post-Op take back procedure - afebrile, vitals wnl - intubated, off sedation, opening eyes - continues on clinda, micafuncin, zosyn, vanc d/c'd - off pressors OBJECTIVE: Scheduled Medications: Medications[1] Continuous Medications: Medications[2] PRN Medications: 0.9% NaCl, 1-10 mL, PRN fentNYL, 50 mcg, BOLUS FROM BAG PRN Vital Signs: BP 98/51 Pulse 78 Temp 99.5 ??F (37.5 ??C) Resp 17 Ht 1.829 m (6' 0.01) Wt (!) 189.1 kg (416 lb 14.2 oz) SpO2 97% Temp: [96.8 ??F (36 ??C)-99.5 ??F (37.5 ??C)] 99.5 ??F (37.5 ??C) Pulse: [52-88] 78 Resp: [10-24] 17 Arterial Line BP #1: (108-149)/(51-76) 112/54 O2 %: [40 %-55 %] 40 % I&Os: Intake/Output Summary (Last 24 hours) at 07/04/2025 1052 Last data filed at 07/04/2025 0700 Gross per 24 hour Intake 3499.4 ml Output 2945 ml Net 554.4 ml Physical Exam: Gen: intubated HEENT: AT/NC, EOMI CV: afib on monitor Pulm: Nonlabored respirations, intubated Abd: Soft, abthera in place with serosanginous output, surrounding abdomen skin is erythematous MSK: WWP, 1+ pitting edema bilateral lower extremities Neuro: unable to assess, intubated however opens eyes to voice Psych: unable to assess, intubated Labs: Recent Labs Component Name 07/03/25233107/03/25 1331 07/02/25 2318 WBC 15.5* 17.9* 17.0* HGB 9.4* 9.4* 9.6* HCT 28.9* 29.3* 29.6* MCV 100.3* 102.4* 99.3* PLTCOUNT 221 246 279 Recent Labs Component Name 07/03/25 2332 07/03/25 1331 07/02/25 2318 07/02/25 1052 07/02/25 0030 NA 142 140 141 - 137 POTASSIUM 3.6 3.9 4.1 - 5.1* CL 109* 108* 107 - 107 CO2 24 - 18* BUN 45* 51* 49* - 50* CREATININE 1.33* 1.41* 1.44* - 1.75* GLUCOSE 108* 142* 134* - 103* CALCIUM 8.2* 8.5 8.4 - 9.6 MAGNESIUM 3.1* - 2.9* - 2.5 PHOS 3.7 - 5.2* - 6.7* - = values in this interval not displayed. Recent Labs Component Name 07/02/25 1052 07/01/251917 ALKPHOS 97 112 115 ALT 30 39 41 AST 36* 43* 44* PROT 5.1* 6.2 6.5 ALB 1.5* 2.1* 2.1* TBILI 2.2* 1.8* 1.8* DBILI 1.6* 1.3* Recent Labs Component Name 07/02/25 0030 07/01/251917 PT 28.6* 33.1* INR 2.8 3.4 PTT 35.7 - Pathology: 07/01- small bowel with reactive changes Microbiology: Cultures (peritoneal fluid) 07/01: Ecoli and strep angionsus Moderate phocaeicola vulgatus Moderate Prevotella denticola Rare yeast Imaging: CTAP from OSH 07/01, read not available however scan available for review and with complicated abdominal hernia with fluid collection, likely abscess, trace soft tissue gas which is concerning for bowel ischemia/perforation CT chest 07/04: IMPRESSION: Atelectasis of the lower lobe of the left lung and dependent upper lobe associated with the decrease volume of the left hemithorax and leftward shift of the heart and mediastinum. Mild dependent atelectasis in the right lung base. Partially imaged upper abdomen shows ventral hernia. ASSESSMENT & PLAN: Serjio Sanderson is a 64 year old male with PMH of CHF, YEN, A fib on Xarelto (last dose 06/30), three pulmonary embolisms (last in 2011), non specific thyroid condition. Presented with two day history of abdominal pain, with overlying skin ischemia, and CT from OSH with complicated abdominal hernia with fluid collection and soft tissue gas. Now s/p exploratory laparotomy, lysis of adhesions, small bowel resection, skin debridement and Abthera placement. Take back on hospital day 2, patient underwent reanastomosis, fascial closure, debridement of abdominal wall, and wound vac placement. Post operatively remained intubated and sedated on low dose levo, on clinda, micafugin, zosyn, vanc. 1 Day Post-Op from take back from reanastomosis, fascial closure, debridement of abdominal wall, and wound vac placement. Remains intubated, no longer on pressors. Neuro: #Post- operative pain #sedation iso intubation - currently off all sedation - consider scheduling pain medications given extensive abdominal operation CV: - Vitals q1h #presumed sepsis - levo gtt for MAP >65 #CHF most recently EF 50-55% #afib on xarelto, hx of multiple pulmonary embolisms, sp kaycentra - CHADSVASC score of 4, okay for heparin Resp: #intubated, sedated - CMV PEEP 10 Fio2 40% - appreciate ACC for assistance FEN/GI: #incarcerated hernia s/p SURESH, SBR now 1 Day Post-Op reanastomsosis, fascial closure, wound vac placement - Diet: NPO - recommend starting TPN - NG LIWS - Daily BMP, Mg, Phos - replete as needed - Strict I&Os TID - Abthera to 125 mmHg - Abx: clindamycin, zosyn, ras, vanc discontinued 07/02 - Protonix IV Endo: - 20 mcg levo injection (home dose 25 mg oral) Renal: - [place] while intubated and sedated - Continue to monitor post-op UOP Heme/ID: - Hgb 9.4 - Transfuse if Hgb < 7 - Daily CBC - Peritoneal fluid growing e coli, strep angionsus, rare budding yeast, moderate phocaeicola vulgatus, moderate Prevotella denticola - zosyn, clinda, micafungin Msk: - Encourage ambulation after extubation - PT/OT- will engage after extubated - VTE PPx: SCDs, heparin Lines: a line, PIV x4, midline R cephalic vein, [place], christine, LISA, ETT Code: No Order Disposition: ICU pending extubation Rohini Wharton MD Surgery Resident PGY-1 07/04/25 10:52 AM [1] 0.9% NaCl 3 mL Intracatheter q8h artificial tears Each Eye q8h chlorhexidine 15 mL Mouth/Throat BID clindamycin 900 mg Intravenous q8h furosemide 20 mg Intravenous Once heparin 7,500 Units Subcutaneous q8h levothyroxine 20 mcg Intravenous q48h micafungin 200 mg Intravenous q24h pantoprazole 40 mg Intravenous QDAY piperacillin-tazobactam 4.5 g Intravenous q8h vancomycin (VANCOCIN) IV dose per pharmacy Does not apply DIRECTED [2] fentaNYL, 0-200 mcg/hr, Last Rate: Stopped (07/03/25 1600) propofol, 0-50 mcg/kg/min, Last Rate: Stopped (07/03/25 1543) TPN - CENTRAL LINE - ADULT - DAY 1, Cosigned by Kamaljit Nicole MD at 07/05/2025 7:23 AM ELEC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 Associated attestation - Kamaljit Nicole MD - 07/05/2025 7:23 AM ELEC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 Patient seen and examined with residents. I confirm the examination, assessment and plan unless otherwise noted. * Chadwick Dunlap MD - 07/04/2025 5:50 AM CST Mr. 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 He also has multiple prior abdominal hernia surgeries and presented with incarcerated ventral hernia requiring emergent exploratory laparotomy and SBR on 07/01. He was closed on 07/03 and remains intubated and sedated on minimal vasopressor support. Although he as able to PSV x 4 hours, he has considerable collapse of his left lung based on CT. If we're not able to aerate this lung and remove mucus plugs via respiratory percussive therapy, wewill proceed with performing a bronchoscopy later this evening. We are continuing broad spectrum antibiotic coverage in the setting of contamination of his bowel. We are also starting TPN today. I have seen and examined the patient on multidisciplinary rounds. I have reviewed and confirmed thehistory, physical exam, laboratory and radiologic data as documented in the signed ICU note. I havereviewed and discussed my treatment plan with the ICU team and other medical/telecommunications consultant staff, making frequent assessments and decisions regarding this patient's complex medical care. Critical Care time was exclusive of time spent performing separately billed procedures, treating other patients, and teaching. This time was in addition to and separate from critical care provided byother practitioners in my group on this day of service. Critical Care was necessary to treat or prevent imminent or life-threatening deterioration of the following conditions: Hemodynamic instability due to above procedure Acute pain/Acute postoperative pain Acute hypoxemic respiratory failure requiring mechanical ventilation Acute blood loss anemia Undifferentiated shock Treatment and management includes: Acute pain control Optimizing mechanical ventilation for optimal drive pressures, pulmonary toilet Active and frequent monitoring of intake/output and volume status Electrolyte and nutritional repletion Empiric antibiotic therapy for perforated bowel Critical Care time: 39 Chadwick Dunlap MD Web Application Dev Specialist Cardiac Anesthesiology & Critical Care [facility] Anesthesia Critical Care Service Resident Progress Note Admit Date: 07/01/2025 Hospital Day: 4 Subjective: Admission History Serjio Sanderson is a 64-year-old male with a PMHx of congestive heart failure with mild reduced EF of 50-55%, COPD, obstructive sleep apnea (CPAP compliant), atrial fibrillation on Xarelto, hx multiple DVT/PE (last 2016), hypothyroidism, CKD 3a, and history of multiple prior hernia repairs, including mesh placement and previous wound infection who presented with abdominal pain secondary to incarcerated ventral hernia with serosanguinous drainage. Imaging revealed complicated abdominal hernia with a fluid collection likely representing abscess, and trace soft tissue gas concerning for bowel ischemia or perforation. Perioperative management included administration of Kcentra and fresh frozen plasma for elevated INR, and broad-spectrum antibiotics including vancomycin, clindamycin, and piperacillin-tazobactam forsuspected necrotizing soft tissue infection. He was taken emergently to the operating room overnight 07/01/25 for exploratory laparotomy, with possible bowel resection and skin/soft tissue debridementplanned, given the concern for abscess and possible necrotizing infection. No intraoperative complications or concerns from an anesthesia perspective. From a surgical prospective, 6x6cm ventral hernia with incarcerated bowel. Large amount of stool encountered. Surrounding soft tissue with component of nectrotizing soft tissue infection requiring excisional debridement of [id number]. Small bowel perforation resected and left in discontinuity, Abthera placed. Primary dx: Ventral hernia with perforated and incarcerated bowel with associated necrotizing soft tissue infection Surgical Procedure: 07/01: Exploratory laparotomy, soft tissue excisional debridement, lysis of adhesions, small bowel resection, abthera placement , in discontinuity. EBL: 200, PRBC: na, UoP: 50, Crystalloid: 2000 cc, Colloid: na 07/05: Re-exploratory laparotomy, small bowel resection with re-anastomosis, abdominal fascial closure and subcutaneous wound VAC placement Interval History Patient POD 1 from re-ex lap. PSV for 4 hours yesterday and then rested on ventilator. Off of all sedation and pressors since overnight; received 20mg IV Lasix x1 for worsening CXR. Continues in rate-controlled atrial fibrillation. Drowsy but responsive to voice this AM, nodding yes/no to questions. Scheduled Medications Medications[1] Continuous Medications / Infusions Medications[2] PRN Medications 0.9% NaCl, 1-10 mL, PRN fentNYL, 50 mcg, BOLUS FROM BAG PRN Objective: Patient Vitals for the past 8 hrs: Temp Temp src Pulse Resp SpO2 07/04/25 0500 37.4 ??C -- 73 12 97 % 07/04/25 0400 37.4 ??C Bladder 88 21 96 % 07/04/25 0300 37.4 ??C -- 79 15 99 % 07/04/25 0200 37.4 ??C -- 71 17 99 % 07/04/25 0100 37.4 ??C -- 71 18 98 % 07/04/25 0000 37.4 ??C Bladder 71 14 99 % 07/03/25 2300 37.4 ??C -- 73 15 100 % 07/03/25 2200 37.4 ??C -- 72 15 98 % Temp (24hrs), Av.9 ??C, Min:36 ??C, Max:37.4 ??C Date 07/03/25699 - 07/04/2565807/04/25 07 - 07/05/25 0659 Shift 5256-5767 4191-0584 24 Hour Total 7898-4313 0825-8139 24 Hour Total INTAKE I.V.(mL/kg/hr) 2187.9(1) 1241.5 3429.4 Tube 30 30 Shift Total(mL/kg) 2217.9(11.7) 1241.5(6.6) 3459.4(18.3) OUTPUT Urine(mL/kg/hr) 1400(0.6) 935 2335 Drains 225 225 Shift Total(mL/kg) 1400(7.4) 1160(6.1) 2560(13.5) NET 817.9 81.5 899.4 Weight (kg) 189.1 189.1 189.1 189.1 189.1 189.1 Diet: NPO, complete bowel rest Physical Examination GENERAL: Intubated but responsive HEENT: Head normocephalic and atraumatic. EOM intact. PERRL CARDIOVASCULAR: afib rate controlled, normal S1 and S2, no murmurs appreciated LUNGS: mechanical breath sounds ABDOMEN: Soft, Wound vac in place w/ SS output EXTREMITIES: Radial pulses 2+ bilaterally. BL LE edema NEUROLOGIC: drowsy but responsive to voice Data Review Labs: Hematology: Hematology: Recent Labs Component Name 07/03/25233107/03/25133007/02/252317 WBC 15.5* 17.9* 17.0* HGB 9.4* 9.4* 9.6* HCT 28.9* 29.3* 29.6* PLTCOUNT 221 246 279 MCV 100.3* 102.4* 99.3* MCH 32.6 32.9 32.2 MCHC 32.5 32.1 32.4 Chemistry: Recent Labs Component Name 07/03/25 23307/03/25 1331 07/02/25 2318 07/02/25 1052 07/02/25 0030 07/01/25 1918 NA 142 140 141 138 137 138 POTASSIUM 3.6 3.9 4.1 3.8 5.1* 5.0* CL 109* 108* 107 107 107 105 CO2 25 24 24 22 18* 24 ANIONGAP 8 8 10 9 12 9 BUN 45* 51* 49* 47* 50* 46* CREATININE 1.33* 1.41* 1.44* 1.48* 1.75* 1.74* EGFR 59* 55* 54* 52* 42* 43* GLUCOSE 108* 142* 134* 143* 103* 90 CALCIUM 8.2* 8.5 8.4 8.5 9.6 8.8 MAGNESIUM 3.1* - 2.9* - 2.5 - PHOS 3.7 - 5.2* - 6.7* - BCR 34* 36* 34* 32* 29* 26* OSMOLALITY 306* 306* 307* 301* 298* 297* AGRATIO - - - 0.4* - 0.5* 0.5* LACTICAC - - - 1.5 - 1.9 Point of Care Glucose Recent Labs Component Name 07/04/25 0408 07/03/25 2332 07/03/25199907/03/25 1708 07/03/25 0340 [id number] 114* 114* 132* 130* 152* Liver and Pancreatic Function: Recent Labs Component Name 07/02/25 1052 07/01/25 191 PROT 5.1* 6.2 6.5 ALB 1.5* 2.1* 2.1* DBILI 1.6* 1.3* TBILI 2.2* 1.8* 1.8* ALT 30 39 41 AST 36* 43* 44* ALKPHOS 97 112 115 Coagulation: Recent Labs Component Name 07/02/25 0030 07/01/251917 PT 28.6* 33.1* INR 2.8 3.4 PTT 35.7 - Cardiac Enzymes: No results for input(s): CKMB, CKTOTAL, TROPONINI, CK, TROPIHS, TROPIHSSNGL, DELTATNIBASE in the last 61755 hours. Arterial Blood Gas: Recent Labs Component Name 07/03/25 2332 07/03/25 1331 07/03/25 0829 07/03/25 0604 PH 7.39 7.29* 7.33* 7.29* PCO2 43 46* 49* 47* PO2 120* 167* 107* 153* [id number] 26.0 22.1 25.8 22.6 BE 0.8 -4.4* -0.5 -4.0* FIO2 40.0 55.0 - 55.0 Drug Levels: Recent Labs Component Name 07/02/25 0030 VANCTROUGH 39.4* Virology/Bacteriology: Recent Labs Component Name 07/02/25 003 MRSADPCR Not detected Blood Bank: Recent Labs Component Name 07/02/25 0049 07/01/252010 ABORH A POS A POS ABSCG - NEG Urine: No results for input(s): SODIUMRAN, POTASSIUMUR, CHLORIDER, CREATININEUR, OSMOUR, LABSPEC in the last 56409 hours. Microbiology: Imaging: *All other imaging reviewed Ventilator Settings: Mode: PCMV Rate: 12 Pressure control: 14 PEEP: 10 FiO2: 55% Assessment and Plan: Neurologic: #Acute postoperative pain - Monitor mental status every hour and notify MD of changes. - Sedation/Pain Control: fentanyl and propofol off but available Respiratory: #hx COPD - On home albuterol, symbicort, fluticasone #hx YEN on CPAP #Acute Hypoxic Respiratory Failure - S/p bedside bronch 07/02/25 w/ suctioning of thick white mucus in ETT/L main bronchus/LLL - AM CXR w/ worsening L-sided pleural effusion and BL congestion - S/p IV Lasix 20mg x1 overnight - IPV 07/04/25 with no secretions out PLAN: - Titrate FiO2 to the lowest needed to keep SpO2 > 90- 92% - Keep HOB elevated 30 degrees, mouth care, aspiration precautions - Bronchial hygiene and pulmonary toilet: IPV QID + chest vest therapy (pt declines chest vest today) - Continue 4h PSV trial again today, rest on vent ovn - Ordered CT Chest w/o contrast: atelectasis of LLL/CHARLETTE, decreased volume of L hemithorax, L shift of heart and mediastinum, no pleural effusion - Tentative plan for repeat bronch at bedside this PM Cardiovascular: #Atrial fibrillation, rate controlled #hx HTN #hx Pulmonary HTN #hx HFrEF (EF 55-60%) - On home Coreg 12.5mg BID, Lasix 40mg BID, Xarelto 15mg qd, spironolactone 12.5mg qd, [id number] qhs - S/p R IJ CVC placement 07/02/25 PLAN: - Continue to hold home antihypertensives for now - Hemodynamic monitoring: L radial arterial line, R IJ CVC Gastrointestinal: #Ventral hernia with perforated and incarcerated bowel - S/p 07/01/25 exploratory laparotomy with small bowel resection and soft tissue excisional debridement, wound vac placement, in discontinuity - S/p 07/05/25: Re-exploratory laparotomy, small bowel resection with re- anastomosis, abdominal fascial closure and subcutaneous wound VAC placement PLAN: - NGT to LIS - Strict I/Os q1 - Continue broad spectrum abx/antifungal: vanc/zosyn/clinda/micafungin - Diet: NPO; start TPN today - Wound vac changes per ACS Renal: #Acute on chronic kidney injury, resolved - Per chart review baseline Cr 1.2-1.6 as of nephrology visit 2021 - 1.33 (1.41) today, at baseline #Lactic acidosis, resolved PLAN: - BMP qd - Continue [place]ada - D/c Isolyte 100ml/h - 2g ca repleted ovn - CTM UOP: 0.6 ml/kg/h - IV Lasix 20mg x1 now Hematologic: #Acute post-op blood loss anemia - Hb 9.4 (9.4), stable - WBC 15.5 (17.9), downtrending - S/p Kcentra and FFP for elevated INR 3.4; repeat INR 2.8 PLAN - CBC qd - Goal Hgb>7, PLTs>50 - Anticoagulation - holding home Xarelto --> continuing prophylactic heparin for now Infectious Disease: #Necrotizing soft tissue infection - UA unremarkable, trace protein - MRSA negative - Prelim OR PF culture & gram stain: heavy E coli, heavy Strep anginosus, light polymorphonuclear cells, heavy gram + cocci, heavy gram - bacilli, moderate gram + bacilli, Rare Naida krusei - Prelim OR fungal culture: rare yeast budding - Prelim anaerobe culture: Moderate Phocaeicola vulgatus, Prevotella denticola, Clostridium paraputrificum, Finegoldia magna Plan: - Await remaining cultures + susceptibilities - E coli susceptible to Zosyn - Vancomycin d/c'd - Continue clindamycin, piperacillin-tazobactam, and micafungin Endocrine: #Hypoalbuminemia #hx Hypothyroidism - TSH WNL 07/02/25 - On home Synthroid 25mcg qd PO PLAN: - BG <180 - Accu checks q4h - Continue IV Synthroid 20mcg q48h Prophylaxis: - GI prophylaxis: IV Protonix 40mg qd - DVT prophylaxis: SQ heparin 7500u Activity: Strict bedrest Lines/Drains/Airways: PIVs x4 (14 G left AC, 18 G right forearm, 20 G bilateral forearms , ETT- 8.0(07/01- ), Arterial line- left radial ( 07/01-), [place] ( 07/01- ), NG (07/01-), Wound vac ( 07/03-),R IJ CVC (07/02-) Disposition: ICU management Joleen Fernandes MD Anesthesia Critical Care 07/04/2025 5:50 AM Attestation: Please see note from Dr. Dunlap for further details. [1] 0.9% NaCl 3 mL Intracatheter q8h artificial tears Each Eye q8h chlorhexidine 15 mL Mouth/Throat BID clindamycin 900 mg Intravenous q8h heparin 7,500 Units Subcutaneous q8h levothyroxine 20 mcg Intravenous q48h micafungin 200 mg Intravenous q24h pantoprazole 40 mg Intravenous QDAY piperacillin-tazobactam 4.5 g Intravenous q8h vancomycin (VANCOCIN) IV dose per pharmacy Does not apply DIRECTED [2] fentaNYL, 0-200 mcg/hr, Last Rate: Stopped (07/03/25 1600) isolyte-S pH 7.4, , Last Rate: 100 mL/hr at 07/04/25 0400 norepinephrine, 0-0.4 mcg/kg/min, Last Rate: Stopped (07/03/25 1629) propofol, 0-50 mcg/kg/min, Last Rate: Stopped (07/03/25 1543) vasopressin, 0.04 Units/min, Last Rate: Stopped (07/03/25 1547) 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 * Isatu Fritz MD - 07/03/2025 8:35 PM CST Acute Care Surgery Post Op Check 07/03/2025 Admit: 07/01/2025 5:24 PM Hospital Day: 3 POD: * Day of Surgery * NAME: Serjio Sanderson Subjective: Patient returns from the OR after undergoing ex lap, small bowel resection, closure and wound vac placement. Patient resting in bed, intubated and sedated. WV in place with good seal. [place] in place with clear yellow UOP. Objective: BP 98/51 Pulse 72 Temp 97.9 ??F (36.6 ??C) Resp 14 Ht 1.829 m (6' 0.01) Wt (!) 189.1 kg (416 lb 14.2 oz) SpO2 100% Urine output post op: 1.4L Physical Exam: Gen: Lying in bed, NAD CV: RRR Resp: intubated Abd: Soft, wound vac in place with good seal, abdomen soft Ext: No c/c/e, extremities wwp Neuro: Moving all extremities spontaneously, no focal deficits Assessment Serjio Sanderson is a 64 year old male s/p ex lap, mall bowel resection, closure and wound vac placement. POD#0 Plan: - HDS - Intubated, sedated - UOP appropriate - Continue W[place], re enforce as needed - overall recovering well, continue post op care Isatu Fritz MD 07/03/2025 8:35 PM 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 * Ryan Gaines RCP - 07/03/2025 4:41 PM CST ACC called after pt 30 minutes on PS/V. Team would like pt to stay on PSV until 8pm. AFter that , pt should be placed on PC mode overnight. 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 * Ravi Espinal, PharmD - 07/03/2025 3:49 PM CST ACTIVE CONSULTS TO PHARMACY/DISEASE STATE MONITORING Pharmacy Consult: Vancomycin ASSESSMENT/PLAN Indication: documented nec fasc of ventral hernia, intraabdominal infection with Goal Level: redosing based on random level <20 mcg/ml ID consulted/following: No Assessment: Day of treatment: 2 End of treatment date: to be determined Current dosing regimen: Intermittent dosing based on levels Recent Labs Component Name 07/03/25 1331 07/03/25 0340 07/02/25 2318 07/02/25 1052 07/02/25 0159 07/02/25 0030 CREATININE 1.41* - 1.44* 1.48* - 1.75* BUN 51* - 49* 47* - 50* VANCORNDM - 12.6 - - 37.2 - VANCTROUGH - - - - - 39.4* Microbiology: Recent Labs Component Name 07/02/25 0031 MRSADPCR Not detected MRSA positive: No 07/02 MRSA PCR negative Other pertinent micro: 07/01 Peritoneal Fluid Cx: E coli, prevotella denticola, Phocaeicola (formerly Bacteroides) vulgatus Renal: Considered unstable at this time as patient has acutely fluctuating renal function. Level(s): Pharmacokinetic calculations unreliable at this time due to unstable renal function/drug clearance.Reasonable to continue to target random levels 10-20 mcg/ml with redosing for <20 mcg/ml unless dictated differently in plan below. Plan Dosing: Will continue serial dosing based on acute renal instability and/or CrCl < 30 mL/min. Will orderdose of 1000 mg to be given on 07/03 at 1600. Monitoring: Will order a vancomycin random level on 07/04 at 1500 and adjust regimen if indicated. Continue to monitor patient???s renal function and cultures as needed. Ravi Espinal PharmD 07/03/2025 3:[address] [facility] Vancomycin Guideline 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 * Erinn Murillo MD - 07/03/2025 5:38 AM CST Images from the original note were not included. ACUTE CARE SURGERY PROGRESS NOTE Admit: 07/01/2025 5:24 PM Date: 07/03/25 Length of Stay: 2 Attending: Kamaljit Nicole MD POD:2 Days Post-Op SUBJECTIVE: History: Serjio Sanderson is a 64 year old male W Pmhx CHF, COPD, afib, DVT/PE on Xarelto (last taken 06/30), who presented with signs of an incarcerated, strangulated and perforated ventral hernia with overlying skin changes. After long discussion of risks and benefits (see note from Dr. Bermudez on 07/01), saleem freitas was taken to the OR late evening of 07/01 and was found to have 6cm x6cm ventral hernia with incarcerated bowel with large amount of stool encountered, surrounding soft tissue with component of necrotizing soft tissue infection requiring excisional debridement of [id number], small bowel perforation resected and then left in discontinuity with Abthera placed. Procedures: 07/01- lysis of adhesions, SBR, soft tissue excisional debridement, Abthera placement Recent Events: 2 Days Post-Op - afebrile, vitals wnl - intubated, sedated - On 0.12 levo and vaso - Abthera w sero sang output - Received 40 mg lasix x1 for bilateral pleural effusions and desaturations OBJECTIVE: Scheduled Medications: Medications[1] Continuous Medications: Medications[2] PRN Medications: 0.9% NaCl, 1-10 mL, PRN fentNYL, 50 mcg, BOLUS FROM BAG PRN Vital Signs: BP 98/51 Pulse 57 Temp 98.8 ??F (37.1 ??C) Resp 12 Ht 1.829 m (6' 0.01) Wt (!) 189.1 kg (416 lb 14.2 oz) SpO2 92% Temp: [98.2 ??F (36.8 ??C)-99.3 ??F (37.4 ??C)] 98.8 ??F (37.1 ??C) Pulse: [48-72] 57 Resp: [10-32] 12 BP: (98)/(51) 98/51 Arterial Line BP #1: (103-125)/(46-64) 109/48 O2 %: [30 %-55 %] 55 % I&Os: Intake/Output Summary (Last 24 hours) at 07/03/2025 0538 Last data filed at 07/03/2025 0206 Gross per 24 hour Intake 4652.89 ml Output 2220 ml Net 2432.89 ml Physical Exam: Gen: intubated HEENT: AT/NC, EOMI CV: afib on monitor Pulm: Nonlabored respirations, intubated Abd: Soft, abthera in place with serosanginous output, surrounding abdomen skin is erythematous MSK: WWP, 1+ pitting edema bilateral lower extremities Neuro: unable to assess, intubated Psych: unable to assess, intubated Labs: Recent Labs Component Name 07/02/25 2318 07/02/25 0030 07/01/25 1918 WBC 17.0* 20.9* 24.4* HGB 9.6* 11.9* 13.0* HCT 29.6* 36.5* 38.9 MCV 99.3* 100.3* 100.0* PLTCOUNT 279 325 272 Recent Labs Component Name 07/02/25 2318 07/02/25 1052 07/02/25 0030 NA 141 138 137 POTASSIUM 4.1 3.8 5.1* CL 107 107 107 CO2 24 22 18* BUN 49* 47* 50* CREATININE 1.44* 1.48* 1.75* GLUCOSE 134* 143* 103* CALCIUM 8.4 8.5 9.6 MAGNESIUM 2.9* - 2.5 PHOS 5.2* - 6.7* Recent Labs Component Name 07/02/25 1052 07/01/251917 ALKPHOS 97 112 115 ALT 30 39 41 AST 36* 43* 44* PROT 5.1* 6.2 6.5 ALB 1.5* 2.1* 2.1* TBILI 2.2* 1.8* 1.8* DBILI 1.6* 1.3* Recent Labs Component Name 07/02/25 0030 07/01/251917 PT 28.6* 33.1* INR 2.8 3.4 PTT 35.7 - Pathology: Pending Microbiology: Cultures (peritoneal fluid) 07/01: Ecoli and strep angionsus Rare yeast Imaging: CTAP from OSH 07/01, read not available however scan available for review and with complicated abdominal hernia with fluid collection, likely abscess, trace soft tissue gas which is concerning for bowel ischemia/perforation 4 AM xray: improved L sided pleural effusion from prior ASSESSMENT & PLAN: Serjio Sanderson is a 64 year old male with PMH of CHF, YEN, A fib on Xarelto (last dose 06/30), three pulmonary embolisms (last in 2011), non specific thyroid condition. Presented with two day history of abdominal pain, with overlying skin ischemia, and CT from OSH with complicated abdominal hernia with fluid collection and soft tissue gas. Now s/p exploratory laparotomy, lysis of adhesions, small bowel resection, skin debridement and Abthera placement. Post operatively remained intubated and sedated on low dose levo, on clinda, micafugin, zosyn, and vanc. 2 Days Post-Op, continues to be on pressors, no significant output from wound vac, plan to return to OR for exploratory laparotomy today, possible anastomosis, possible closure, possible SBR, possible mesh placement, possible wound vac placement. Neuro: #Post- operative pain and sedation iso intubation - fentanyl, propofol gtt CV: - Vitals q1h #presumed sepsis - levo gtt for MAP >65 #CHF most recently EF 50-55% #afib on xarelto, hx of multiple pulmonary embolisms, sp kaycentra - CHADSVASC score of 4, okay for heparin Resp: #intubated, sedated - CMV PEEP 10 Fio2 80% - appreciate ACC for assistance FEN/GI: #incarcerated hernia s/p OR on 07/02 SBR, SURESH, left in discontinuity - likely will return to OR today 07/03 - Diet: strict NPO - NG LIWS - Daily BMP, Mg, Phos - replete as needed - Strict I&Os TID - Abthera to 125 mmHg - Abx: clindamycin, vanc, zosyn, ras - Protonix IV Endo: - 20 mcg levo injection (home dose 25 mg oral) Renal: - [place] while intubated and sedated - Continue to monitor post-op UOP Heme/ID: - Hgb 9.6 - Transfuse if Hgb < 7 - Daily CBC - Peritoneal fluid growing e coli, strep angionsus, rare budding yeast - vanc, zosyn, clinda, micafungin Msk: - Encourage ambulation after extubation - PT/OT- will engage after extubated - VTE PPx: SCDs, heparin Lines: a line, PIV x4, midline R cephalic vein, [place], abthera, LISA, ETT Code: No Order Disposition: ICU pending return to OR Rohini Wharton MD Surgery Resident PGY-1 07/03/25 5:38 AM I have seen and examined the patient with the resident, and I agree with the findings and plan of care as documented by the resident Date of service:07/03/25 Erinn Murillo MD 07/03/2025 11:02 AM [1] 0.9% NaCl 3 mL Intracatheter q8h artificial tears Each Eye q8h calcium gluconate 2 g Intravenous Once chlorhexidine 15 mL Mouth/Throat BID clindamycin 900 mg Intravenous q8h furosemide 40 mg Intravenous Once heparin 7,500 Units Subcutaneous q8h levothyroxine 20 mcg Intravenous q48h micafungin 200 mg Intravenous q24h pantoprazole 40 mg Intravenous QDAY piperacillin-tazobactam 4.5 g Intravenous q8h vancomycin (VANCOCIN) IV dose per pharmacy Does not apply DIRECTED [2] fentaNYL, 0-200 mcg/hr, Last Rate: 125 mcg/hr (07/03/25 05) isolyte-S pH 7.4, , Last Rate: 100 mL/hr at 07/03/25199 norepinephrine, 0-0.4 mcg/kg/min, Last Rate: 0.08 mcg/kg/min (07/03/25199) propofol, 0-50 mcg/kg/min, Last Rate: 20 mcg/kg/min (07/03/25199) vasopressin, 0.04 Units/min, Last Rate: 0.04 Units/min (07/03/25320) 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 * Erinn Murillo MD - 07/02/2025 9:59 PM CST Patient scheduled for second look laparotomy as first case. Small bowel in discontinuity Plan repeat laparotomy, possible bowel anastomosis, possible abdominal closure, possible abthera Patient on heparin drip, history of a fib and multiple PE's In ICU Resident note for today reviewed, not yet complete. Note addended 07/03 717am 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 * Tor Hinson RRT - 07/02/2025 12:26 PM CST Patient was preoxygenated with 100% for bronch procedure that was performed bedside. ETT tube was advanced to 26 cm at the lip during the procedure. After procedure was finished, FiO2 was weaned backdown to 40%, SpO2 97%. At this time, PC weaned to 17, pt's peak pressure 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 * Jessica Choi RN - 07/02/2025 10:31 AM CST Care Coordination Initial Assessment Expected Discharge Date: 07/09/2025 Expected Discharge Disposition: Inpatient Rehab Facility Transportation at Discharge: Family Prior Level of Care: Home Prior to Admit Provider: Sarkis Fu Comments: CM met with pt at bedside, pt is intubated and sedated. CM verified address/phone/PCP with sonDennis. Pt lives alone, still drives/is retired, has a cane and is on home O2 although son does not know how much or who delivers it for DME, is independent with ADLs at baseline. Per son, pt also utilizes delivery services and housekeeping services. Pt's son plans to provide transportation upon DC. CM will continue to follow for DC needs. Lives with: Alone Physical Limitations: None Requires Assistance With: None Preferred Pharmacy: No Pharmacies Listed READMISSION RISK SCORE is 9.4 CM spoke with Dennis almanzar, on the phone Family Support (name and phone): Extended Emergency Contact Information Primary Emergency Contact: Dennis Sanderson Mobile Relation: Son Patient or membership sales representative requests care coordination reach out to family or caregiver listed above regarding discharge planning and at time of discharge? No Durable Medical Equipment Planning Type of Cane: Standard/Quad DME Provider: Son is unsure List DME pt. requires but does not have.: None Pipe Organ Installer Referral: Yes Will continue to follow. For any questions or needs please contact: Facsimile Operator/Social Work Name/Phone number: Jessica Choi RN [phone] 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 * Reji Baltazar MD - 07/02/2025 5:30 AM CST Images from the original note were not included. ACUTE CARE SURGERY PROGRESS NOTE Admit: 07/01/2025 5:24 PM Date: 07/02/25 Length of Stay: 1 Attending: Gregg Swenson DO POD:1 Day Post-Op SUBJECTIVE: History: Serjio Sanderson is a 64 year old male W Pmhx CHF, COPD, afib, DVT/PE on Xarelto (last taken 06/30), who presented with signs of an incarcerated, strangulated and perforated ventral hernia with overlying skin changes. After long discussion of risks and benefits (see note from Dr. Bermudez on 07/01), saleem freitas was taken to the OR late evening of 07/01 and was found to have 6cm x6cm ventral hernia with incarcerated bowel with large amount of stool encountered, surrounding soft tissue with component of necrotizing soft tissue infection requiring excisional debridement of [id number], small bowel perforation resected and then left in discontinuity with Abthera placed. Procedures: 07/01- lysis of adhesions, SBR, soft tissue excisional debridement, Abthera placement Recent Events: 1 Day Post-Op - afebrile, vitals wnl - intubated, sedated - On 0.07 levo this AM - Abthera with 300 out OBJECTIVE: Scheduled Medications: Medications[1] Continuous Medications: Medications[2] PRN Medications: 0.9% NaCl, 250 mL, Once PRN 0.9% NaCl, 1-10 mL, PRN fentNYL, 50 mcg, BOLUS FROM BAG PRN Vital Signs: BP 98/51 Pulse 64 Temp 98.8 ??F (37.1 ??C) (Bladder) Resp 16 Ht 1.829 m (6') Wt (!) 179.2kg (395 lb) SpO2 100% Temp: [97.1 ??F (36.2 ??C)-99.5 ??F (37.5 ??C)] 98.8 ??F (37.1 ??C) Pulse: [64-97] 64 Resp: [16-28] 16 BP: (98-106)/(51-67) 98/51 Arterial Line BP #1: (96-150)/(55-74) 127/60 O2 %: [29 %-80 %] 80 % I&Os: Intake/Output Summary (Last 24 hours) at 07/02/2025 0530 Last data filed at 07/02/2025 0400 Gross per 24 hour Intake 2572.51 ml Output 1000 ml Net 1572.51 ml Physical Exam: Gen: intubated HEENT: AT/NC, EOMI, oropharynx clear CV: RRR Pulm: Nonlabored respirations, intubated Abd: Soft, abthera in place with serosanginous output MSK: WWP, no c/c/e Neuro: unable to assess, intubated Psych: unable to assess, intubated Labs: Recent Labs Component Name 07/02/25 0030 07/01/251917 WBC 20.9* 24.4* HGB 11.9* 13.0* HCT 36.5* 38.9 MCV 100.3* 100.0* PLTCOUNT 325 272 Recent Labs Component Name 07/02/25 0030 07/01/251917 NA 137 138 POTASSIUM 5.1* 5.0* CL 107 105 CO2 18* 24 BUN 50* 46* CREATININE 1.75* 1.74* GLUCOSE 103* 90 CALCIUM 9.6 8.8 MAGNESIUM 2.5 - PHOS 6.7* - Recent Labs Component Name 07/01/251917 ALKPHOS 112 115 ALT 39 41 AST 43* 44* PROT 6.2 6.5 ALB 2.1* 2.1* TBILI 1.8* 1.8* DBILI 1.3* Recent Labs Component Name 07/02/250 07/01/251917 PT 28.6* 33.1* INR 2.8 3.4 PTT 35.7 - Pathology: Pending Microbiology: Cultures 07/01: pending Imaging: CTAP from OSH 07/01, read not available however scan available for review and with complicated abdominal hernia with fluid collection, likely abscess, trace soft tissue gas which is concerning for bowel ischemia/perforation ASSESSMENT & PLAN: Serjio Sanderson is a 64 year old male with PMH of CHF, YEN, A fib on Xarelto (last dose 06/30), three pulmonary embolisms (last in 2011), non specific thyroid condition. Presented with two day history of abdominal pain, with overlying skin ischemia, and CT from OSH with complicated abdominal hernia with fluid collection and soft tissue gas. 1 Day Post-Op s/p exploratory laparotomy, lysis of adhesions, small bowel resection, skin debridement and Abthera placement. Post op day 1, patient intubated and sedated on low dose levo 0.07, afebrile, down trending WBC. Neuro: #Post- operative pain and sedation iso intubation - fentanyl, propofol gtt CV: - Vitals q1h #presumed sepsis - levo gtt for MAP >65 #CHF most recently EF 50-55% #afib on xarelto, hx of multiple pulmonary embolisms, sp kaycentra - CHADSVASC score of 4, okay to bridge to heparin gtt without bolus Resp: #intubated, sedated - CMV PEEP 10 Fio2 80% - appreciate ACC for assistance FEN/GI: #incarcerated hernia s/p OR on 07/02 SBR, SURESH, left in discontinuity - likely will return to OR 07/03 - Diet: strict NPO - NG LIWS - Daily BMP, Mg, Phos - replete as needed - Strict I&Os TID - Abthera to 125 mmHg - Abx: clindamycin, vanc, zosyn - Protonix IV Endo: - TAHIRA - hx possible hypothyroidism, on 25 mcg levothyroxine per med dispense report - resume as able, currently in discontinuity Renal: - [place] while intubated and sedated - Continue to monitor post-op UOP Heme/ID: - Hgb 11.9 - Transfuse if Hgb < 7 - Daily CBC Msk: - Encourage ambulation - PT/OT- will engage after extubated - VTE PPx: SCDs, okay for heparin gtt Lines: a line, PIV x4, midline R cephalic vein, christine canada, LISA, ETT Code: No Order Disposition: ICU pending return to OR Rohini Wharton MD Surgery Resident PGY-1 07/02/25 5:30 AM I have seen and examined the patient with the resident and I agree with the findings and plan of care as documented by the resident. Date of Service: 07/02/2025 Reji Baltazar MD [1] NaCl IV 50 mL Intravenous Once 0.9% NaCl 3 mL Intracatheter q8h artificial tears Each Eye q8h chlorhexidine 15 mL Mouth/Throat BID clindamycin 900 mg Intravenous q8h pantoprazole 40 mg Intravenous QDAY piperacillin-tazobactam 4.5 g Intravenous q8h vancomycin (VANCOCIN) IV dose per pharmacy Does not apply DIRECTED [2] fentaNYL, 0-200 mcg/hr, Last Rate: 100 mcg/hr (07/02/25 0300) isolyte-S pH 7.4, , Last Rate: 50 mL/hr at 07/02/25 0300 norepinephrine, 0-0.4 mcg/kg/min, Last Rate: 0.07 mcg/kg/min (07/02/25 0515) propofol, 0-50 mcg/kg/min, Last Rate: 45 mcg/kg/min (07/02/25 0439) sodium bicarbonate 8.4 % 75 mEq in 0.45% NaCl infusion (isotonic fluid), 100 mL/hr, Last Rate: 100 mL/hr (07/02/25 0300) 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 * Gregg Meza, PharmD - 07/02/2025 2:34 AM CST ACTIVE CONSULTS TO PHARMACY/DISEASE STATE MONITORING Pharmacy Consult: Vancomycin ASSESSMENT/PLAN Indication: suspected nec fasc of ventral hernia with perforated and incarcerated bowel with Goal Level: redosing based on random level <20 mcg/ml ID consulted/following: No Assessment: Day of treatment: 2 End of treatment date: to be determined Current dosing regimen: Intermittent dosing based on levels Recent Labs Component Name 07/02/25 0030 07/01/25 1918 CREATININE 1.75* 1.74* BUN 50* 46* VANCTROUGH 39.4* - Microbiology: No results for input(s): MRSADPCR in the last 59854 hours. MRSA positive: No Pertinent micro: 07/01 Peritoneal Fluid Cx: gram positive cocci & bacilli, gram negative bacilli 07/01 Fungus cx: in process 07/02 MRSA PCR: in process Renal: Considered unstable at this time as patient has acutely fluctuating renal function. Level(s): Pharmacokinetic calculations unreliable at this time due to unstable renal function/drug clearance.Reasonable to continue to target random levels 10-20 mcg/ml with redosing for <20 mcg/ml unless dictated differently in plan below. Patient received LD of 2500mg at OSH on 07/01 at 1400. Then received another 2g in OR at 2100. Vanc level post OR (07/02 at 0030) resulted as 39.4 mcg/ml. Plan Dosing: Will continue serial dosing but will hold off on ordering additional dose at this time until next level check. Monitoring: With receiving 4500mg of vanc within 7h while in an LARISA, I expect appropriate clearance will take >24h. Will order a vancomycin random level on 07/03 at 400 and adjust regimen if indicated. Continue to monitor patient???s renal function and cultures as needed. Gregg Meza, PharmMing 07/02/2025 2:[address] [facility] Vancomycin Guideline SUBJECTIVE/OBJECTIVE Serjio Sanderson is a 64 year old male. Height: 6' (182.9 cm) Wt 179.2 kg (395 lb) Body mass index is 53.57 kg/m??. Vancomycin Administrations from OCT (last 72 hours) None 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 * Carmelita Bermudez DO - 07/02/2025 12:10 AM CST ACS Plan of Care: Mr. Sanderson is a 64 year old male who presented with a ventral hernia with perforated and incarcerated bowel. Patient underwent a laparotomy with small bowel resection and soft tissue excisional debridement. Patient was left open and in discontinuity. - NGT to LIWS, confirmed on KUB - CXR - NPO, strict - strict I/Os q1 - continuous cardiac monitoring - UA - continue broad spectrum ABX: vanc/zosyn/clinda for the concerns of NSTI. Follow cultures from OR 07/02/25 - Abthera wound vac to -125mmHg - daily labs per ACC - vent mgmt per ACC - will plan to take patient back to the OR in the next 24-48hrs - please page ACS for questions or concerns. Carmelita Bermudez DO PGY-4 07/02/2025 12:15 AM 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 * Polo Quintana, NasreenD - 07/01/2025 8:03 PM CST ACTIVE CONSULTS TO PHARMACY/DISEASE STATE MONITORING Pharmacy Consult: Vancomycin ASSESSMENT/PLAN Indication: suspected nec fasc with Goal Level: redosing based on random level <20 mcg/ml Assessment Renal: Recent Labs Component Name 07/01/251917 CREATININE 1.74* BUN 46* Considered unstable at this time, unclear baseline Plan Regimen: Loading dose: 2500 mg Monitoring: Will order a vancomycin random level 12 hours after previous dose administered and adjust regimen if indicated. Continue to monitor patient???s renal function and cultures as needed. Polo Quintana, PharmD 07/01/2025 7:[address] [facility] Vancomycin Guideline SUBJECTIVE/OBJECTIVE Serjio Sanderson is a 64 year old male Height: 6' (182.9 cm) Wt 179.2 kg (395 lb) Body mass index is 53.57 kg/m??. Dialysis Orders (72h ago, onward) None Vancomycin Administrations from OCT (last 72 hours) None No results for input(s): VANCORNDM, VANCTROUGH, VANCOTROUGH, VANCOPEAK in the last 32835 hours. 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 * Carmelita Bermudez, DO - 07/01/2025 7:23 PM CST ACS Plan of Care: Mr. Sanderson is a 64 year old male with PMH of CHF, COPD, DVT/PE on xarelto (last taken yesterday) who presents with signs of an incarcerated, strangulated and perforated ventral hernia with overlying skin changes. Scans from OSH reviewed with Dr. Swenson and in agreement with read. We discussed the nature of his ventral hernia and complicating factors with the patient. We primarily discussed that this is a veryserious situation and will be very difficult to recover from. His treatment will entail multiple trips to the operating room and will ultimately have his abdomen left open for a period of time. Will expect him to remain intubated and have a prolonged ICU stay. I personally discussed his wishes regarding his goals of care. He states that he is completely independent at baseline. I discussed that he is most likely not going to be able to be discharged to home directly from the hospital and will most likely require healing in a nursing facility. He is okay with that and would be amenable to going to a detention. Patient reports that he wishes to be full code and is okay with compressions, cardiogenic medications, and shocking. He also described that he would be okay to proceed with dialysis should his kidneys fail. He is okay with receiving a central line for medication administration. He would also be okay with a feeding tube in his abdomen to receive nutrition through. Mr. Sanderson would like his daughter and sister to make medical decisions for him if he were incapacitated. We asked for him to inform these family members of his current situation and his wishes. Heagreed to do so, if needed ACS team available to reach out and discuss his current medical condition as well. At this time, we will proceed to the operating room for an exploratory laparotomy, bowel resection,washout of the abdomen, excision of soft tissue, and abthera wound vac placement with plans for thepatient to be admitted to the ICU postoperatively with an open abdomen. - to OR for ex lap with Dr. Swenson - tanmay - consent obtained from patient after extensive goals of care discussion. - PT/INR, TEG, lactic, CBC pending - 2 large bore Ivs - broad spectrum ABX zosyn/clinda/vanc - NPO - plan for admission to the ICU postoperatively with assistance from ACC This was discussed with Dr. Swenson. Carmelita Bermudez DO PGY-4 07/01/2025 7:36 PM Cosigned by Gregg Swenson DO at 07/01/2025 8:04 PM ELEC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 Associated attestation - Gregg Swenson DO - 07/01/2025 8:04 PM ELEC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 Agree with the note as written. documented in this encounter H&P Notes * Skye Sanchez MD - 07/01/2025 7:55 PM CST Images from the original note were not included. ACUTE CARE SURGERY HISTORY AND PHYSICAL Serjio Sanderson Age: [age] year old male Date of : 1960 Admit Date: 07/01/2025 SUBJECTIVE History of Present Illness: Serjio Sanderson is a 64 year old male with PMHx significant for CHF, YEN, A fib on Xarelto (last taken 06/30 dinner time), 3 Pes (most recent in 2011), non- specific thyroid condition. He has had three prior hernia repairs in 2007, 2009, and again in 2009, all with mesh placement and with infected wound with his second repair. He denies any fever but reports some chills and sweats for a few days. He reports his symptoms of some abdominal pain started around Friday 06/29. He denies any nausea,vomiting, diarrhea, or constipation. He had a bowel movement this AM 07/01, which was normal and non-bloody but a bit small compared to his usual, which he attributes to having no PO intake since Friday 06/29 in the evening. He has had some cough and cold symptoms since Tuesday 06/26 but it has beensteadily improving. He denies any smoking history. PMH: Past Medical History[1] PSH: Past Surgical History[2] Social History Occupational History Not on file Tobacco Use Smoking status: Never Smokeless tobacco: Not on file Substance and Sexual Activity Alcohol use: No Drug use: No Sexual activity: Not on file OBJECTIVE Vitals: Vitals: 07/01/25 1729 BP: 106/67 Pulse: 97 Resp: 16 Temp: 98.7 ??F (37.1 ??C) SpO2: 93% Weight: (!) 179.2 kg (395 lb) Height: 1.829 m (6') Temp (24hrs), Av.7 ??F (37.1 ??C), Min:98.7 ??F (37.1 ??C), Max:98.7 ??F (37.1 ??C) Systolic (36hrs), Av , Min:106 , Max:106 Diastolic (36hrs), Av, Min:67, Max:67 Estimated body mass index is 53.57 kg/m?? as calculated from the following: Height as of this encounter: 1.829 m (6'). Weight as of this encounter: 179.2 kg (395 lb). PREVIOUS WEIGHTS: Wt Readings from Last 5 Encounters: 07/01/25 (!) 179.2 kg (395 lb) 09/10/14 (!) 166.9 kg (368 lb) 08/13/14 (!) 163.3 kg (360 lb) Review of Systems: Negative except as stated in HPI Physical Examination: GEN: laying in bed, no acute distress, comfortable-appearing overall HEENT: NCAT, EOMI, anicteric sclerae CV: A fib rhythm, normotensive (border hypotensive) RESP: slightly labored on 1L NC, sats approx 94% ABD: firm, distended, tender to palpation throughout. Approx 20cm bulge of bowel at hernia site, skin overlying is dark and dusky with some serosanguinous drainage, tender to palpation. MSK: moves all four, no c/c/e NEURO: no focal deficits, cranial nerves grossly intact PSY: appropriate, cooperative Data Review: Labs: CBC Recent Labs Component Name 07/01/251917 WBC 24.4* HGB 13.0* HCT 38.9 PLTCOUNT 272 BMP Recent Labs Component Name 07/01/251917 NA 138 POTASSIUM 5.0* CL 105 CO2 24 BUN 46* CREATININE 1.74* GLUCOSE 90 CALCIUM 8.8 LFTs Recent Labs Component Name 07/01/251917 PROT 6.5 ALB 2.1* TBILI 1.8* ALT 41 AST 44* ALKPHOS 115 Coag Recent Labs Component Name 07/01/251917 PT 33.1* INR 3.4 UA Recent Labs Component Name 07/01/251917 EGFR 43* Cultures: No results found for: CULTURE Recent Imaging: CT Abdomen/pelvis outside hospital 07/01 Formal read not available, complicated abdominal hernia with fluid collection likely abscess, tracesoft tissue gas concerning for bowel ischemia/perforation Assessment and Plan Serjio Sanderson is a 64 year old male with complicated past medical history presenting with incarcerated ventral hernia s/p multiple hernia repairs, CT A/P from outside hospital shows fluid collection likely abscess with trace soft tissue gas. Plan for OR for ex-lap with possible bowel resection and likely open abdomen. Had extensive discussion with patient and multiple loved ones via phone regarding the risks of thissurgery, high likelihood of remaining with open abdomen with minimum few days in ICU, likely need for further procedures, including possible ostomy, possible trach/PEG. The patient expressed understan ding and at this time wishes to proceed with all interventions and would like a trach/PEG in the future if indicated. He would like all efforts made to resuscitate him in the event that he has cardiopulmonary arrest. Plan: - To OR emergently for exploratory laparotomy, possible bowel resection, possible skin/soft tissue debridement, wound vacuum placement, all indicated procedures - Consents signed after extensive discussion with patient of risks and likelihood of extensive and extended hospitalization following surgery - Kcentra and FFP for INR 3.4 - Blood consent signed Staff: Messi Sanchez MD General Surgery Resident 07/01/2025 7:55 PM [1] No past medical history on file. [2] Past Surgical History: Procedure Laterality Date Hernia Repair 2008, 2010 SINUS SURGERY 1994 Cosigned by Gregg Swenson DO at 07/01/2025 8:10 PM ELEC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 Associated attestation - Gregg Swenson DO - 07/01/2025 8:10 PM ELEC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 Patient seen and examined with the resident on the date of the note. Please see their note for further details. I was present for the barnett portions of any procedures performed and always available. I confirm history, exam, assessment and plan with the following exceptions/additions: none. Gregg Swenson DO edge finisher documented in this encounter Procedure Notes * Rohini Wharton MD - 07/09/2025 8:28 AM CST Images from the original note were not included. Acute Care Surgery NPWT Procedure Note Patient name: Serjio Sanderson 1960 [id number] 548/ Date of Procedure: 07/09/2025 Pre procedure diagnosis: abdomen wound Postprocedure diagnosis: abdomen wound Procedure performed: Negative Pressure Wound Therapy Dressing Change. Provider: Rohini Wharton MD Assistants: Polo Shea Anesthesia: dilaudid Indications: This is a 64 year old male with incarcerated ventral hernia s/p exploratory laparotomywith wound vac in place to abdomen. We have discussed the need for NPWT dressing change. Pt's givenopportunity to answer questions and is agreeable to proceed. Procedure: Negative pressure therapy stopped, two black sponges (stapled together) removed without difficulty. Findings: Healthy granulation tissue along wound bed, fascial stitches in place. See photos below. Wound measurements: 18 cm x 22 cm x 3.5 cm. 3 black sponges (stapled together) replaced. Suctions placed to -125mmHg continuous therapy and no leak observed. Plan to change again in 4 days. The patient tolerated the procedure well. Complications: none EBL: 0 cc Specimens: none Please page the Acute Care Surgery team with any questions/concerns. Rohini Wharton, PGY-1 General Surgery Cosigned by Rinku Marks MD at 07/10/2025 11:50 AM ELEC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 * Anne Reyes MD - 07/06/2025 1:13 PM CSTProcedure(s): WOUND VAC ABD DRESSING Images from the original note were not included. Acute Care Surgery NPWT Procedure Note Patient name: Serjio Sanderson 1960 [id number] Date of Procedure: 07/06/2025 Pre procedure diagnosis: Postprocedure diagnosis: Procedure performed: Negative Pressure Wound Therapy Dressing Change. Provider: Vane Hope MD, Anne Reyes MD Assistants: Polo Shea Anesthesia: IV pain medications Indications: This is a 64 year old male with incarcerated ventral hernia s/p exploratory laparotomywith wound vac in place to abdomen. We have discussed the need for NPWT dressing change. Pt's givenopportunity to answer questions and is agreeable to proceed. Procedure: Negative pressure therapy stopped, twp black sponges (stapled together) removed without difficulty. Findings: Healthy granulation tissue along wound bed, fascial stitches in place. Small amount of necrotic tissue debrided from right lateral wound edge. Wound measurements: 20 cm x 24 cm x 5 cm. 2 black sponges (stapled together) replaced. Suctions placed to -125mmHg continuous therapy and no leak observed. Plan to change again in 3 days. The patient tolerated the procedure well. Complications: none EBL: 0 cc Specimens: none Please page the Acute Care Surgery team with any questions/concerns. Anne Reyes MD General Surgery PGY-1 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 * Angelo Washington RN - 07/05/2025 1:44 PM CSTAssociated Order(s): IR PICC LINE INSERT Images from the original note were not included. Department of Interventional Radiology Procedure Note: PICC line placement 07/05/2025 History: Serjio Sanderson is a 64 year old male W Pmhx CHF, COPD, afib, DVT/PE on Xarelto (last taken 06/30), who presented with signs of an incarcerated, strangulated and perforated ventral hernia with overlying skin changes. After long discussion of risks and benefits (see note from Dr. Bermudez on07/01), patient was taken to the OR late evening of 07/01 and was found to have 6cm x 6cm ventral hernia with incarcerated bowel with large amount of stool encountered, surrounding soft tissue with component of necrotizing soft tissue infection requiring excisional debridement of [id number], small bowel perforation resected and then left in discontinuity with Abthera placed. Indication: Nutritional Support Staking Engineer: Angelo Washington RN [place]- Procedures: 1. Limited extremity ultrasound to assess vascular patency 2. Ultrasound guided access of the Right basilic vein. 3. Placement of peripherally inserted central line with magnetic tracking and ECG tip positioning system (IMT). Anesthesia: Local anesthesia with 5mL of 1% Lidocaine without epinephrine Procedure in detail: Type of line placed: Triple Lumen Power Picc The risks and benefits of PICC placement were explained to Family. The risks include discussed include pain, inadvertent arterial puncture, infection, blood clots, phlebitis, and cardiac arrhythmias.They were able to consent to the PICC insertion. Timeout and hand hygiene completed prior to procedure. Traffic was limited in the room during the procedure. Skin prepped with appropriate antibacterial solution prior to skin puncture. Maximum sterile barrier precautions were used including sterile gown and gloves, hat, mask, eye protection and a large sterile drape. Limited ultrasound of the the basilic vein demonstrated patent and compressible vein. A maria scale image was documented. The patient was given local anesthesia with 5 milliliters of 1% Lidocaine without epinephrine. The basilic vein was accessed using a micropuncture needle. The needle entry was documented. A 0.018-inch guidewire was then advanced centrally. A small dermatotomy was made at the puncture site, and then the peel-away sheath was advanced into the vein. The length of the catheter was assessed with magnetic tracking and ECG tip positioning system. The PICC line pre-loaded with magnetic tip was then introduced through the peel-away sheath and advanced to the right atrium near the cavoatrial junction. The triple lumen PICC was placed using the Seldinger technique with a Right basilicapproach without complication. There was dark, non-pulsatile blood return in all ports and they were easily flushed with saline. The tip of the catheter was guided by the magnetic tracking and ECG tip positioning system ([employer]), The peel-away sheath was removed, and the PICC was secured to the skin with a engineered securement device. An overlying dressing was placed. PICC tip position was verified by portable chest x-ray due to inconsistencies with 3CG feedback. This showed PICC tip in good position in the distal SVC. Reposition of the PICC was not indicated. The patient tolerated the procedure well. Patient Guide Booklet and Fact Sheet for preventing infection placed in chart for discharge packet. Reviewed with: RN Complications: none. All the ports were aspirated and flushed to assure patency. The patient tolerated this procedure without apparent immediate complication. Impression: Successful placement of 55 cm PICC Fr: 5 Fr triple lumen power PICC via the Right basilic vein with tip in the cavo-atrial junction. The procedure was performed by Angelo Washington RN [place]-. The final image was reviewed by , Interventional Radiology Attending- IR Attending: Danny Piedra MD The catheter can be used now. Cosigned by Danny Piedra MD at 07/10/2025 9:25 PM ELEC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 documented in this encounter Consult Notes * Meagan Pedersen LCSW - 07/10/2025 11:00 AM CSTAssociated Order(s): IP CONSULT TO COORDINATOR OF ONLINE PROGRAMS SNF list provided to patient in AM on 07/09. SW f/u today at 11 am and pt reported he had not had achance to review. SW discussed importance of starting referral process and offered to speak with family regarding options. Pt states that he will look this evening. Plan A: LTACH referrals placed to [place] and select specialty Meagan Pedersen LCSW P:[phone] F:[phone] 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 * Meagan Montilla RD/ALMA - 07/04/2025 9:51 AM CSTAssociated Order(s): IP CONSULT TO NUTRITIONAL SERV Images from the original note were not included. BRIEF SYNOPSIS: Nutrition Risk Identified but does not meet malnutrition criteria. Nutrition Plan: Current diet order: NPO Current Parenteral order: TPN day 1 07/04 Day 1 TPN Recommendations 900 Kcal with 680 kcalories dextrose & 0 kcalories lipid Protein 55 grams Acetate: Chloride Ratio = 1:1 Electrolytes- standard, or per PharmD Additives Multiple vitamin 10 mL Trace minerals 1 mL Total volume 1500ml Goal TPN Recommendations: Total Kcalories: 1800 Protein: 120 grams Dextrose Kcalories: 924 (271 grams CHO) Lipid Kcalories: 396 (SMOF lipids, 22% total calories) Salt ratio (chloride:acetate) 1:1 or per PharmD Volume: minimum Standard electrolytes or per PharmD Daily PN multivitamin Daily trace minerals Check triglycerides weekly (goal <400 mg/dL) Recommendation to Physician: above recs Discharge Needs: CLINICAL NUTRITION ASSESSMENT: Consulted for day 1 TPN. Day 1 is starting tonight. S/p ex lap, small bowel resection, closure, andwound vac placement. Off sedation. No pressors. Noted BUN and Cr are elevated. Infusion Meds: Medications[1] Med/Surg History and Clinical Diagnoses: Ventral hernia with perforated and incarcerated bowel S/p 07/01/25 exploratory laparotomy with small bowel resection and soft tissue excisional debridement PMHof congestive heart failure with mild reduced EF of 50-55%, COPD, obstructive sleep apnea ( CPAP compliant), atrial fibrillation on Xarelto, prior pulmonary emboli- 2016, and history of multiple prior hernia repairs Height: 182.9 cm (6' 0.01) BMI: Body mass index is 56.53 kg/m??. BMI Range: Morbidly Obese Class 3IBW/lb (Calculated) Male: 178.048 Recent Weights/Methods 08/13/2014 1124 09/10/2014 1101 07/01/2025 1729 07/02/2025 0644 07/03/2025 0340 Weight: 163.3 kg (360 lb) 166.9 kg (368 lb) 179.2 kg (395 lb) 179.2 kg (395 lb) 189.1 kg (416 lb 14.2 oz) Weight Method : -- -- -- Bed scale Bed scale UBW: Unintentional weight change: limited wt hx note wt increase likely fluid related Current Parenteral order: TPN day 1 07/04 PO INTAKE Current diet order: NPO Nutrition recommendation: agree with current nutrition order Food Allergies: No known food allergies Last 48 hr PO INTAKE No data recorded None Pain affecting intake: No Chewing/Swallowing: (ETT) GI Concerns: (small bowel resection) Stools: Skin/Wound: ex lap- wound vac Estimated Needs: KCAL: 1579-4637 (22-25kcal/kg IBW) vent Protein (g): 120 (1.5 g/kg IBW) LARISA Fluid (ml): 1 ml/kcal Needs based on: (80.9kg) Recommended Access Route: TPN Labs: Recent Labs Component Name 07/03/25 2332 07/03/25 1331 07/02/25 2318 07/02/25 1052 07/02/25 0030 07/01/25 1918 NA 142 140 141 138 - 138 POTASSIUM 3.6 3.9 4.1 3.8 - 5.0* CO2 25 24 24 22 - 24 BUN 45* 51* 49* 47* - 46* CREATININE 1.33* 1.41* 1.44* 1.48* - 1.74* GLUCOSE 108* 142* 134* 143* - 90 CALCIUM 8.2* 8.5 8.4 8.5 - 8.8 ALT - - - 30 - 39 41 ALKPHOS - - - 97 - 112 115 AST - - - 36* - 43* 44* EGFR 59* 55* 54* 52* - 43* - = values in this interval not displayed. Recent Labs Component Name 07/03/25 2332 07/02/25 2318 07/02/25 0030 PHOS 3.7 5.2* 6.7* Recent Labs Component Name 07/03/25 2332 07/02/25 2318 07/02/25 0030 MAGNESIUM 3.1* 2.9* 2.5 Recent Labs Component Name 07/03/25 2332 07/03/25 1331 07/02/258 HGB 9.4* 9.4* 9.6* HCT 28.9* 29.3* 29.6* Recent Labs Component Name 07/02/25 0032 HGBA1C 5.4 Patient Vitals for the past 30 hrs: Glucose Bedside (mg/dL) 07/04/25 0800 108 mg/dL 07/04/25 0400 114 mg/dL 07/03/252331 114 mg/dL 07/03/25 2000 132 mg/dL 07/03/25 1600 130 mg/dL MEDICATIONS FOR CURRENT ENCOUNTER: SCHEDULED MEDICATIONS: 0.9% NaCl injection 3 mL, Intracatheter, q8h artificial tears ophthalmic ointment, Each Eye, q8h chlorhexidine (Peridex) 0.12 % oral solution 15 mL, Mouth/Throat, BID clindamycin (Cleocin) 900 mg in 50 mL D5W IVPB, Intravenous, q8h heparin injection 7,500 Units, Subcutaneous, q8h levothyroxine sodium (Synthroid) injection 20 mcg, Intravenous, q48h micafungin (Mycamine) 200 mg in NaCl IV 0.9 % 100 mL IVPB, Intravenous, q24h pantoprazole (Protonix) injection 40 mg, Intravenous, QDAY piperacillin - tazobactam (Zosyn) 4.5 g in NaCl IV 0.9 % 110 mL IVPB, Intravenous, q8h vancomycin (Vancocin) IV dose per pharmacy, Does not apply, DIRECTED [COMPLETED] calcium gluconate 2 g in 100 mL NaCl 0.675%, Intravenous, Once [COMPLETED] furosemide (Lasix) injection 20 mg, Intravenous, Once [COMPLETED] vancomycin (Vancocin) 1,000 mg in NaCl IV 0.9 % 250 mL IVPB, Intravenous, Once CONTINUOUS MEDICATIONS: fentaNYL 2500 mcg/50mL infusion, Intravenous, Continuous isolyte-S pH 7.4 infusion, Intravenous, Continuous propofol (Diprivan) 1000 mg in 100 mL infusion, Intravenous, Continuous PRN MEDICATIONS: 0.9% NaCl injection 1-10 mL, Intracatheter, PRN fentaNYL (Sublimaze) bolus from bag 50 mcg, Intravenous, BOLUS FROM BAG PRN Nutrition Diagnostic Statement: Increased nutrient needs related to:: increased demands with critical illness as evidenced by:: estimated protein needs .. Nutrition Diagnostic Statement Progress: New diagnostic statement established Nutrition Intervention: Parenteral nutrition: Education needed: None Pt was educated on Monitoring: TPN, I/Os, BM, labs, meds, weight Monitor per nutrition guidelines. Evaluation: Nutrition Goal: Total intake will meet estimated nutrient needs Nutrition Goal Timeframe: Throughout stay Nutrition Goal Progress: Continue with current goal Ascom: 4534 [1] fentaNYL, 0-200 mcg/hr, Last Rate: Stopped (07/03/25 1600) isolyte-S pH 7.4, , Last Rate: 100 mL/hr at 07/04/25 0700 propofol, 0-50 mcg/kg/min, Last Rate: Stopped (07/03/25 1543) TPN - CENTRAL LINE - ADULT - DAY 1, 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 * Marquita Scales - 07/02/2025 3:53 PM CSTAssociated Order(s): IP CONSULT TO PASTORAL CARE Pt intubated at this time. Per nursing family plans on returning tomorrow. I will attempt to visit/check in with family tomorrow during day shift. Pastoral care continues to remain available as needed/requested (#[id number]). Judie Scales 07/02/2025 3:54 PM 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 * Cherri Eid LSW - 07/02/2025 9:42 AM CSTAssociated Order(s): IP CONSULT TO COORDINATOR OF ONLINE PROGRAMS Substance Abuse-Brief Interview SW acknowledges the AUTO generated referral per nursing for SA assessment. Patient is intubated andsedated and not appropriate for assessment. Please re- refer when pt is medically appropriate for assessment. Cherri Eid VENTILATION WORKER, WICK TENDER [phone] 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 * Meagan Montilla RD/ALMA - 07/02/2025 9:23 AM CSTAssociated Order(s): IP CONSULT TO NUTRITIONAL SERV Images from the original note were not included. BRIEF SYNOPSIS: Nutrition Risk Identified but does not meet malnutrition criteria. Nutrition Plan: Current diet order: NPO TF when appropriate to feed. Start TPN if unable to feed by 07/08 On propofol at 43 ml/hr providing 1135 kcal/day Vital High Protein at goal of 30 ml/hr Provides 720 kcal, 63 g protein, 81 g carbohydrate, 602 ml free water +50 ml q 6 hrs free water flush or per MD if on IVF +100 ml q 4 hrs free water flush or per MD if not on additional fluids Off propofol Vital High Protein at goal of 80 ml/hr. Provides 1920 kcal, 168 g protein, 215 g carbohydrate, and 1605 ml free water +50 ml q 6 hrs free water flush or per MD if on IVF +100 ml q 4 hrs free water flush or per MD if not on additional fluids Recommendation to Physician: above recs. Anticipate NPO status Discharge Needs: CLINICAL NUTRITION ASSESSMENT: RD received consult per vent protocol. Plan to return to OR tomorrow. High propofol rate. Infusion Meds: Medications[1] Med/Surg History and Clinical Diagnoses: Ventral hernia with perforated and incarcerated bowel S/p 07/01/25 exploratory laparotomy with small bowel resection and soft tissue excisional debridement PMHof congestive heart failure with mild reduced EF of 50-55%, COPD, obstructive sleep apnea ( CPAP compliant), atrial fibrillation on Xarelto, prior pulmonary emboli- 2016, and history of multiple prior hernia repairs Height: 182.9 cm (6' 0.01) BMI: Body mass index is 53.56 kg/m??. BMI Range: Morbidly Obese Class 3IBW/lb (Calculated) Male: 178.048 Recent Weights/Methods 08/13/2014 1124 09/10/2014 1101 07/01/2025 1729 07/02/2025 0644 Weight: 163.3 kg (360 lb) 166.9 kg (368 lb) 179.2 kg (395 lb) 179.2 kg (395 lb) Weight Method : -- -- -- Bed scale UBW: Unintentional weight change: limited wt hx PO INTAKE Current diet order: NPO Nutrition recommendation: alter/change nutrition order Food Allergies: No known food allergies Last 48 hr PO INTAKE No data recorded None Pain affecting intake: No Chewing/Swallowing: (ETT) GI Concerns: (bowel in discontinuity) Stools: Skin/Wound: ex lap- open Estimated Needs: KCAL: 2674-2086 (22-25kcal/kg IBW) vent Protein (g): 160-200 (2.0-2.5 g/kg IBW) Fluid (ml): 1 ml/kcal Needs based on: (80.9kg) Recommended Access Route: TF Labs: Recent Labs Component Name 07/02/252907/01/251917 NA 137 138 POTASSIUM 5.1* 5.0* CO2 18* 24 BUN 50* 46* CREATININE 1.75* 1.74* GLUCOSE 103* 90 CALCIUM 9.6 8.8 ALT - 39 41 ALKPHOS - 112 115 AST - 43* 44* EGFR 42* 43* Recent Labs Component Name 07/02/2529 PHOS 6.7* Recent Labs Component Name 07/02/2529 MAGNESIUM 2.5 Recent Labs Component Name 07/02/250 07/01/251917 HGB 11.9* 13.0* HCT 36.5* 38.9 Recent Labs Component Name 07/02/2531 HGBA1C 5.4 Patient Vitals for the past 30 hrs: Glucose Bedside (mg/dL) 07/02/25 0400 100 mg/dL MEDICATIONS FOR CURRENT ENCOUNTER: SCHEDULED MEDICATIONS: And 0.9% NaCl injection 3 mL, Intracatheter, q8h artificial tears ophthalmic ointment, Each Eye, q8h chlorhexidine (Peridex) 0.12 % oral solution 15 mL, Mouth/Throat, BID clindamycin (Cleocin) 900 mg in 50 mL D5W IVPB, Intravenous, q8h pantoprazole (Protonix) injection 40 mg, Intravenous, QDAY piperacillin - tazobactam (Zosyn) 4.5 g in NaCl IV 0.9 % 110 mL IVPB, Intravenous, q8h vancomycin (Vancocin) IV dose per pharmacy, Does not apply, DIRECTED [COMPLETED] prothrombin complex conc human (Kcentra) injection 2,202 Units, Intravenous, Once [] 0.9% NaCl infusion, Intravenous, Once [START ON 07/03/2025] levothyroxine sodium (Synthroid) injection 20 mcg, Intravenous, q48h CONTINUOUS MEDICATIONS: fentaNYL 2500 mcg/50mL infusion, Intravenous, Continuous norepinephrine (Levophed) 8 mg/250 ml NS infusion premix, Intravenous, Continuous propofol (Diprivan) 1000 mg in 100 mL infusion, Intravenous, Continuous sodium bicarbonate 8.4 % 150 mEq in dextrose 5 % infusion, Intravenous, Continuous PRN MEDICATIONS: 0.9% NaCl infusion rate and volume, Intravenous, Once PRN 0.9% NaCl injection 1-10 mL, Intracatheter, PRN fentaNYL (Sublimaze) bolus from bag 50 mcg, Intravenous, BOLUS FROM BAG PRN Nutrition Diagnostic Statement: Increased nutrient needs related to:: increased demands with critical illness as evidenced by:: estimated protein needs .. Nutrition Diagnostic Statement Progress: New diagnostic statement established Nutrition Intervention: Enteral nutrition: Education needed: None Pt was educated on Monitoring: TF, I/Os, BM, labs, meds, weight Monitor per nutrition guidelines. Evaluation: Nutrition Goal: Total intake will meet estimated nutrient needs Nutrition Goal Timeframe: Throughout stay Nutrition Goal Progress: New goal established Ascom: 4534 [1] fentaNYL, 0-200 mcg/hr, Last Rate: 150 mcg/hr (07/02/25 0644) norepinephrine, 0-0.4 mcg/kg/min, Last Rate: 0.08 mcg/kg/min (07/02/25629) propofol, 0-50 mcg/kg/min, Last Rate: 40 mcg/kg/min (07/02/25 09) sodium bicarbonate 8.4 % 150 mEq in dextrose 5 % infusion, 100 mL/hr, Last Rate: 100 mL/hr (07/02/25 09) 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 * Jessica Choi RN - 07/02/2025 7:03 AM CSTAssociated Order(s): IP CONSULT TO CASE MANAGEMENT Consult seen and acknowledged. Patient unable to participate at this time. 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 * Kamaljit Cuevas MD - 07/02/2025 12:08 AM CST Images from the original note were not included. [facility] Anesthesia Critical Care Service Consultation for Co-Management Serjio Sanderson Age: [age] year old Date of : 1960 Date of Admission: 07/01/2025 Hospital Day: 2 Reason for consult: Critical Care Requesting physician Acute Care surgery Chief Complaint: Admission: Serjio Sanderson is a 64-year-old male with a PMHx of congestive heart failure with mild reduced EF of 50-55%, COPD, obstructive sleep apnea ( CPAP compliant), atrial fibrillation on Xarelto, prior pulmonary emboli- 2016, and history of multiple prior hernia repairs, including mesh placement and previous wound infection who presented with abdominal pain secondary to incarcerated ventral hernia with serosanguinous drainage. Imaging revealed:complicated abdominal hernia with a fluid collection likely representing abscess, and trace soft tissue gas concerning for bowel ischemia or perforation. Perioperative management included administration of Kcentra and fresh frozen plasma for elevated INR, and broad-spectrum antibiotics including vancomycin, clindamycin, and piperacillin-tazobactam forsuspected necrotizing soft tissue infection. He was taken emergently to the operating room for exploratory laparotomy, with possible bowel resection and skin/soft tissue debridement planned, given the concern for abscess and possible necrotizing infection. No intraoperative complications or concerns from an anesthesia perspective. From a surgical prospective, 6x6cm ventral hernia with incarcerated bowel. Large amount of stool encountered. Surrounding soft tissue with component of nectrotizing soft tissue infection requiring excisional debridement of [id number]. Small bowel perforation resected and left in discontinuity. Abthera placed. Primary dx: Ventral hernia with perforated and incarcerated bowel with associated necrotizing soft tissue infection Surgical Procedure: Exploratory laparotomy, soft tissue excisional debridement, lysis of adhesions,small bowel resection, abthera placement , in discontinuity. EBL: 200, PRBC: na, UoP: 50, Crystalloid: 2000 cc, Colloid: na Indication for ICU admission: hemodynamic and respiratory management History obtained from electronic medical record. Past Medical History: Past Medical History[1] Past Surgical History: Past Surgical History[2] Social History: Social History Socioeconomic History Marital status: Spouse name: Not on file Number of children: Not on file Years of education: Not on file Highest education level: Not on file Occupational History Not on file Tobacco Use Smoking status: Never Smokeless tobacco: Not on file Substance and Sexual Activity Alcohol use: No Drug use: No Sexual activity: Not on file Other Topics Concern Not on file Social History Narrative Not on file Social Drivers of Health Financial Resource Strain: Not on file Food Insecurity: Not on file Transportation Needs: Not on file Stress: Not on file Housing Stability: Not on file Family History: Family History[3] Allergies: Allergies[4] Medications: Prior to Admission medications Not on File Medications[5] Review of Systems: Review of Systems - positive findings in BOLD General: fever/chills, malaise, weight loss Head: headache, lightheadedness Eyes: vision changes, double or blurry vision Mouth: dry mouth, sore throat Respiratory: cough, hemoptysis, shortness of breath, dyspnea on exertion Cardiovascular: chest pain, palpitations, arrhythmia GI: abdominal pain, nausea/vomiting, changes in bowel habits, blood in stool : dysuria, hematuria, frequency Extremities: joint pain, muscle pain Neurological: focal deficits, new numbness/tingling, tremor Skin: rash Physical Exam: Date 07/01/25699 - 07/02/25 0659 07/02/25 07 - 07/03/25 0659 Shift 2007-3272 [id number] 24 Hour Total 4145-0653 1874-3917 24 Hour Total INTAKE I.V.(mL/kg/hr) 1999 1999 Shift Total(mL/kg) 1999(11.2) 1999(11.2) OUTPUT Urine(mL/kg/hr) 400 400 Shift Total(mL/kg) 400(2.2) 400(2.2) NET 1600 1600 Weight (kg) 179.2 179.2 179.2 179.2 179.2 179.2 BP 98/51 Pulse 88 Temp 36.9 ??C (Oral) Resp 28 Ht 1.829 m (6') Wt (!) 179.2 kg (395 lb) SpO2 90% General appearance: Intubated and sedated, NAD HEENT: normocephalic, atraumatic, EOMI, no scleral icterus or injection, moist mucous membranes, nomasses, no JVD, no LAD CV: RRR, normal S1 and S2, no murmurs, 2/4 dorsal and radial pulses Chest: Mechanical breath sounds Abdomen: distended, Abethra in place Extremities: mild edema, no clubbing, no cyanosis Skin: Warm and dry, no new rash Neurological: Intubated and sedated Data: Hematology: Recent Labs Component Name 07/01/251917 WBC 24.4* HGB 13.0* HCT 38.9 PLTCOUNT 272 MCV 100.0* MCH 33.4 MCHC 33.4 Chemistry: Recent Labs Component Name 07/01/251917 NA 138 POTASSIUM 5.0* CL 105 CO2 24 ANIONGAP 9 BUN 46* CREATININE 1.74* EGFR 43* GLUCOSE 90 CALCIUM 8.8 BCR 26* OSMOLALITY 297* AGRATIO 0.5* 0.5* LACTICAC 1.9 Point of Care Glucose Recent Labs Component Name 07/01/251957 [id number] Liver and Pancreatic Function: Recent Labs Component Name 07/01/251917 PROT 6.2 6.5 ALB 2.1* 2.1* DBILI 1.3* TBILI 1.8* 1.8* ALT 39 41 AST 43* 44* ALKPHOS 112 115 Coagulation: Recent Labs Component Name 07/01/251917 PT 33.1* INR 3.4 Cardiac Enzymes: No results for input(s): CKMB, CKTOTAL, TROPONINI, CK, TROPIHS, TROPIHSSNGL, DELTATNIBASE in the last 18903 hours. Arterial Blood Gas: Recent Labs Component Name 07/02/25 0030 07/01/25223507/01/252117 PH 7.31* 7.30* 7.30* 7.30* PCO2 38 49* 50* 50* PO2 280* 199* 243* 243* BBN2MHH 19.1* 24.1 24.6 24.6 BE -6.6* -2.7* -2.3* -2.3* FIO2 80.0 - - Drug Levels: No results for input(s): TACROLIMUS, VANCTROUGH, DIGOXIN in the last 44687 hours. Virology/Bacteriology: No results for input(s): SARSCOV2, RINFLUANAA, RINFLUBNAA, MRSADPCR in the last 89463 hours. Blood Bank: Recent Labs Component Name 07/01/252010 ABORH A POS ABSCG NEG Urine: No results for input(s): SODIUMRAN, POTASSIUMUR, CHLORIDER, CREATININEUR, OSMOUR, LABSPEC in the last 05313 hours. Assessment & Plan: Neurologic: #Acute Post-Operative Pain - Monitor mental status every hour and notify MD of changes. - Sedation/Pain Control: fentanyl and propofol Respiratory: #Acute Hypoxic Respiratory Failure #COPD #YEN- cpap compliant - Titrate FiO2 to the lowest needed to keep SpO2 > 90- 92% - Keep HOB elevated 30 degrees, mouth care, aspiration precautions. - Ventilatory strategy: CMV TV 500, RR 14, PEEP 8, fio2 30% - Bronchial hygiene and pulmonary toilet - ABG pending - CXR pending Cardiovascular: # HTN #Pulmonary HTN #Hx of Atrial fibrillation #CHF with reduced EF (noted 30% in past, recently 55-60%) PLAN: - Kcentra and fresh frozen plasma for elevated INR 3.4 and continue to hold xarelto per ACS. RepeatINR - hold antihypertensives for now - titrate levophed as indicated - Hemodynamic monitoring: left radial arterial line Gastrointestinal: #Ventral hernia with perforated and incarcerated bowel #Mild Transaminitis S/p 07/01/25 exploratory laparotomy with small bowel resection and soft tissue excisional debridement, wound vac placement , in discontinuity PLAN: -NGT to LIWS, confirmed on KUB - Strict I/Os q1 - Continue broad spectrum ABX: vanc/zosyn/clinda as listed below - Abthera wound vac to -125mmHg - Tentative plan to take patient back to the OR in the next on Tuesday 07/03 - Diet: NPO - Tube Feeds: n/a Renal: #acute kidney injury -creatinine 1.74 PLAN: - BMP/Electrolytes: Monitor lab results QD - Maintenance fluid with isolyte 50cc/hr gtt - Bicarb/ 1/2 NS at 100 cc /hr gtt Hematologic: #Acute Blood Loss Anemia 10/01 surgery PLAN - Cont to monitor H&H/CBC QD - Goal Hgb>7. Transfuse PRBCs as needed. - Goal PLTs>50. Transfuse PLTs as needed. - Anticoagulation - Sequential compression device Infectious Disease: #Necrotizing soft tissue infection Plan: - Continue vancomycin, clindamycin, and piperacillin-tazobactam - Additional infection workup: UA and MRSA - lactic acid -follow cultures from OR 07/02/25 Endocrine: #Stress hyperglycemia #Hypoalbuminemia PLAN: - Continue to monitor daily cbc/bmp - Accu checks q4h Prophylaxis: - GI prophylaxis: Protonix 40 mg QD - DVT prophylaxis: Sequential compression device Activity: bed rest, per ACS Lines/Drains/Airways: PIVs x4 (14 G left AC, 18 G right forearm, 20 G bilateral forearms , ETT- 8.0(07/01- ), Arterial line- left radial ( 07/01-), [place] ( 07/01- ), NG (07/01-), Wound vac ( 07/01-) Disposition: ICU management Code Status: Full code Plan was discussed with Dr. Mary Cuevas MD Department of Anesthesiology & Critical Care, PGY-4 07/02/2025 12:51 AM [1] No past medical history on file. [2] Past Surgical History: Procedure Laterality Date Hernia Repair 2008, 2010 SINUS SURGERY 1994 [3] Family History Problem Relation Name Age of Onset None Known Mother Status: Cancer Father throat cancer, blood cancer; Status: None Known Sister ##Sister1 Status: Alive None Known Brother ##Brother1 Status: Alive None Known Daughter ##Dau1 Status: Alive None Known Son ##Son1 Status: Alive None Known Sister ##Sister2 Status: Alive None Known Brother ##Brother2 Status: Alive None Known Daughter ##Dau2 Status: Alive [4] Allergies Allergen Reactions Stxgtnbl-Bixwpywvuk-Jqzqbbvfv Itching and Swelling [5] Current Facility-Administered Medications Medication 0.9% NaCl infusion rate and volume 0.9% NaCl infusion 0.9% NaCl injection 3 mL And 0.9% NaCl injection 1-10 mL artificial tears ophthalmic ointment chlorhexidine (Peridex) 0.12 % oral solution 15 mL clindamycin (Cleocin) 900 mg in 50 mL D5W IVPB fentaNYL (Sublimaze) bolus from bag 50 mcg fentaNYL 2500 mcg/50mL infusion isolyte-S pH 7.4 infusion norepinephrine (Levophed) 8 mg/250 ml NS infusion premix pantoprazole (Protonix) injection 40 mg piperacillin - tazobactam (Zosyn) 4.5 g in NaCl IV 0.9 % 110 mL IVPB propofol (Diprivan) 1000 mg in 100 mL infusion vancomycin (Vancocin) IV dose per pharmacy Cosigned by Jay Hernandez II, DO at 07/12/2025 2:00 PM ELEC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 documented in this encounter Nursing Notes * Miracle Odonnell RN - 07/03/2025 2:53 PM CST Fascia closed. X-ray performed according to hospital protocol. No retained objects noted. [employer]GAN ASSEMBLER AND CHECKER documented in this encounter OR Notes * Brief Op Note - Vane Hope MD - 07/03/2025 8:22 AM CST Brief Op Note Procedure: LAPAROTOMY EXPLORATORY, SMALL BOWEL RESECTION, ANASTAMOSIS, WOUND VAC Patient Name: Serjio Sanderson Date of Service: 07/03/2025 Pre-Op Diagnosis: Incarcerated ventral hernia [K43.6] Post-Op Diagnosis: Same Surgeons and Role: * Erinn Murillo MD - Primary * Vane Hope MD - Resident - Assisting Operational Review Sergeant(s): Resident - Assisting: Melquiades Mcelroy DO Anesthesia Type: general ETT Complications: none Findings: Healthy appearing small bowel, successful small bowel to small bowel anastomosis Ventral hernia closed primarily Incisional wound, measuring 30 cm x 29 cm x 3 cm, closed with wound vac. 2 black sponges EBL: 20 mL Urine Output : See Anesthesia note IV Fluid Intake: See Anesthesia note Drains: Enteral - Nasal/Oral Naso-gastric Nostril/Nare (Active) Output Description None/NA 07/02/25 1800 Tube Status To low intermittent suction 07/03/25599 Surrounding Skin Dry;Intact 07/02/251999 Site Assessment WDL 07/03/25 06 Tube Repositioned No 07/02/25 1800 Internal Tube Length (cm) 60 cm 07/03/25599 Position verified CM marking 07/03/25599 Output Amount (mL) 0 ML 07/03/25 0206 Negative Pressure Wound Therapy Upper;Medial Abdomen (Active) $Application of Wound Vac (<50cm) 1 07/01/252344 Negative Pressure Dressing Status Seal Maintained 07/02/251999 Setting 125 mmHg Suction 07/02/251999 Additional Treatment Abthera 07/01/252344 Wound Vac Output (ml) 40 ml 07/03/25 0614 Specimen(s): ID Type Source Tests Collected by Time Destination A : Resection without Tumor Small Bowel PATHOLOGY TISSUE Erinn Murillo MD 07/03/2025 0849 Implant(s): * No implants in log * Vane Hope MD Cosigned by Erinn Murillo MD at 07/03/2025 11:02 AM ELECTRIC ORGAN ASSEMBLER AND CHECKER TRIC ORGAN ASSEMBLER AND CHECKER TRIC ORGAN ASSEMBLER AND CHECKER * Brief Op Note - Melquiades Mcelroy DO - 07/03/2025 8:22 AM CST Brief Op Note Procedure: LAPAROTOMY EXPLORATORY, SMALL BOWEL RESECTION, ANASTAMOSIS, WOUND VAC Patient Name: Serjio Sanderson Date of Service: 07/03/2025 Pre-Op Diagnosis: Incarcerated ventral hernia [K43.6] Post-Op Diagnosis: Same Surgeons and Role: * Erinn Murillo MD - Primary * Vane Hope MD - Resident - Assisting Operational Review Sergeant(s): Resident - Assisting: Melquiades Mcelroy DO Anesthesia Type: general ETT Complications: None Findings: Small bowel in discontinuity s/p ileal resection. Proximal small bowel margin resected for a healthier-appearing staple line. No additional bowel injuries identified. Fascial defect closed primarily with interrupted 1 nylon sutures without undue tension. Small amount of residual non-viable subcutaneous fat within the abdominal wall wound sharply excised though no evidence of further necrotizing infection. EBL: 10 mL Urine Output : See Anesthesia report IV Fluid Intake: See Anesthesia report Drains: Enteral - Nasal/Oral Naso-gastric Nostril/Nare (Active) Output Description None/NA 07/02/25 1800 Tube Status To low intermittent suction 07/03/25599 Surrounding Skin Dry;Intact 07/02/251999 Site Assessment WDL 07/03/25599 Tube Repositioned No 07/02/25 1800 Internal Tube Length (cm) 60 cm 07/03/25599 Position verified CM marking 07/03/25599 Output Amount (mL) 0 ML 07/03/25 0206 Negative Pressure Wound Therapy Upper;Medial Abdomen (Active) $Application of Wound Vac (<50cm) 1 07/01/25 234 Negative Pressure Dressing Status Seal Maintained 07/02/251999 Setting 125 mmHg Suction 07/02/251999 Additional Treatment Abthera 07/01/25 2345 Wound Vac Output (ml) 40 ml 07/03/25 0614 Specimen(s): ID Type Source Tests Collected by Time Destination A : Resection without Tumor Small Bowel PATHOLOGY TISSUE Erinn Murillo MD 07/03/2025 0849 Implant(s): * No implants in log * Melquiades Mcelroy DO Cosigned by Erinn Murillo MD at 07/03/2025 11:02 AM ELECTRIC ORGAN ASSEMBLER AND CHECKER TRIC ORGAN ASSEMBLER AND CHECKER TRIC ORGAN ASSEMBLER AND CHECKER * Operative - Erinn Murillo MD - 07/03/2025 8:22 AM CST ACUTE CARE SURGERY OPERATIVE REPORT NAME: Serjio Sanderson : 1960 AGE: [age] year old PROC DATE: 07/03/2025 ATTENDING SURGEON: Erinn Murillo MD RESIDENT SURGEONS: Vane Hope MD; Melquiades Mcelroy DO PREOPERATIVE DIAGNOSIS: Incarcerated ventral hernia status post exploratory laparotomy, small bowelresection and temporary abdominal closure POSTOPERATIVE DIAGNOSIS: Same PROCEDURES: Re-exploratory laparotomy, small bowel resection with re- anastomosis, abdominal fascialclosure and subcutaneous wound VAC placement ANESTHESIA: General ETT FINDINGS: Small bowel in discontinuity status post ileal resection; no additional bowel injury identified Fascial defect closed primarily with interrupted 1 nylon sutures Small amount of residual non-viable subcutaneous fat within abdominal wall wound sharply excised No evidence of further necrotizing soft tissue infection 5. Abdominal wall wound measured 30 cm x 29 cm x 3 cm, dressed with wound VAC INDICATIONS: Serjio Sanderson is a 64-year-old male who presented 07/01/25 with an incarcerated ventral hernia complicated by small bowel perforation and necrotizing soft tissue infection of the surrounding abdominal wall. He was taken urgently to the operating room for exploratory laparotomy, hernia reduction, small bowel resection, and excisional debridement of the subcutaneous abdominal wound and temporary abdominal closure using an ABTHERA wound vacuum. His small bowel was left in discontinuity and he was subsequently admitted to the Intensive Care Unit where he received broad-spectrum antibiotics and his vasopressor requirement trended downward. We discussed a plan with the patient's family/surrogate decision-maker for re-exploratory laparotomy with possible bowel anastomosis and fascial closure. The risks versus benefits of the operation were explained in detail, with risks including but not limited to infection, bleeding, recurrent hernia, anastomotic leak, damage to surrounding structures, blood clots, stroke, heart attack and . They voiced understanding and wished to proceed with the operation. PROCEDURE IN DETAIL: The patient was taken to the operating room and identified by name, medical record number and date of . The patient was transferred to the operating table and placed in supine position. General anesthesia was induced without difficulty and the patient was ventilated via a previously placed endotracheal tube. Sequential compression devices were applied and pre- operative antibiotics were continued. After optimal positioning and padding of all pressure points, the patient's AbThera wound VAC suction was turned off and VAC drape as well as the perforated foam were removed. The abdomen was prepped with betadine and draped in usual sterile fashion. A surgical timeout was completed confirming the correct patient and planned procedure. All present agreed with proceeding. We turned our attention to the patient's central abdomen where there was a large subcutaneous woundand fascial defect at the base of the wound. The AbThera visceral protective layer was removed fromthe peritoneal cavity. The fascial opening was extended superiorly using electrocautery. We removeda small amount of residual, clotted blood and then eviscerated the small bowel completely. We inspected the small bowel from the ligament of Treitz to the proximal staple line along the ileum. We identified a cluster of jejunal loops that appeared chronically adhered however the there were no signsof obstruction around this cluster and the bowel appeared normal otherwise. We decided to not attempt adhesiolysis here in order to prevent unnecessary iatrogenic injury. We identified the distal small bowel staple line and continued inspecting the small bowel from this point to the ileocecal valve. We examined the large bowel from the cecum to the intraperitoneal rectum. We noted no small or large bowel injuries. There was no bilious, purulent or feculent free fluid within the peritoneal cavity to suggest a missed bowel injury. The small bowel around the proximal staple line appeared somewhat frayed and we resected a 5 cm segment of this bowel using a 60mm linear cutting stapler with blue load. The associated mesentery was divided sharply with Metzenbaum scissors and ligated using 3-0 silk suture. The resected bowel was passed off the field as a specimen for Pathology. We next proceeded with bowel anastomosis, opening the stapled margins of the bowel sharply and creating a [id number] antiperistaltic anastomosis withan additional blue load of the linear cutting stapler. We closed the common enterotomy with a full-thickness running stitch of 3-0 PDS followed by interrupted seromuscular stitches of 3-0 silk. We placed a crotch stitch and then closed the mesenteric defect using 3-0 vicryl suture. The anastomosis was widely patent on palpation. Intra-peritoneal hemostasis was ensured and an abdominopelvic X-ray was obtained confirming no retained foreign bodies in the abdomen or pelvis. We closed the midline abdominal fascia using 1 nylon suture in simple interrupted fashion and the fascia approximated without undue tension. We inspected the subcutaneous abdominal wound and identified some non-viable fat along the superior margin. We performed a sharp excisional debridement of the non-viable fat using Metzenbaum scissors, totaling 20 square centimeters. The remainder of the wound appeared healthy with no evidence of residual necrotizing infection. We irrigated the wound copiously with normal saline and hemostasis was confirmed. Weplaced a subcutaneous wound VAC using two pieces of black sponge that were stapled together. The dressing demonstrated adequate seal with -125 mmHg pressure applied. At this point the procedure was concluded and anesthesia was terminated. The patient was kept intubated and transferred to the ICU in stable condition. All sponge/needle/instrument counts were reported to me as correct at the conclusion of the case. Dr. Murillo was scrubbed in for and directed all portions of the procedure. COMPLICATIONS: None SPECIMENS: Small bowel resection ESTIMATED BLOOD LOSS: 10 mL FLUIDS/BLOOD PRODUCTS: See Anesthesia report URINE OUTPUT: See Anesthesia report PACKS/DRAINS/CATHETERS: Abdominal subcutaneous wound VAC (2 pieces of black sponge stapled together) CONDITION: Stable DISPO: Return to ICU Melquiades Mcelroy DO General Surgery Resident 07/03/2025 I was present, scrubbed, and participated in barnett portions of the procedure. Present in the OR for the entire procedure. TRIC ORGAN ASSEMBLER AND CHECKER TRIC ORGAN ASSEMBLER AND CHECKER TRIC ORGAN ASSEMBLER AND CHECKER * Brief Op Note - Carmelita Bermudez DO - 07/01/2025 9:27 PM CST Brief Op Note Procedure: LAPAROTOMY EXPLORATORY, soft tissue excisional debridement, lysis of adhesions, small bowel resection, abthera placement Patient Name: Serjio Sanderson Date of Service: 07/01/2025 Pre-Op Diagnosis: ventral hernia with obstruction, perforation Post-Op Diagnosis: ventral hernia with obstruction, perforation, and necrotizing soft tissue infection Surgeons and Role: * Gregg Swenson DO - Primary * Carmelita Bermuedz DO - Resident - Assisting Operational Review Sergeant(s): Resident - Assisting: Skye Sanchez MD Anesthesia Type: general ETT Complications: none Findings: 6x6cm ventral hernia with incarcerated bowel. Large amount of stool encountered. Surrounding soft tissue with component of nectrotizing soft tissue infection requiring excisional debridement of [id number]. Small bowel perforation resected and left in discontinuity. Abthera placed. EBL: 200cc Urine Output : 50 mL IV Fluid Intake: see anesthesia report Drains: Negative Pressure Wound Therapy Upper;Medial Abdomen (Active) $Application of Wound Vac (<50cm) 1 07/01/252344 Negative Pressure Dressing Status Seal Maintained;Initiatied 07/01/252344 Setting 125 mmHg Suction;Continuous 07/01/252344 Additional Treatment Abthera 07/01/252344 Specimen(s): ID Type Source Tests Collected by Time Destination A : small bowel Resection without Tumor Small Bowel PATHOLOGY TISSUE Gregg Swenson DO 07/01/2025 2311 Implant(s): * No implants in log * Carmelita Bermudez DO Cosigned by Gregg Swenson DO at 07/02/2025 5:15 AM ELECTRIC ORGAN ASSEMBLER AND CHECKER TRIC ORGAN ASSEMBLER AND CHECKER TRIC ORGAN ASSEMBLER AND CHECKER * Operative - Carmelita Bermudez DO - 07/01/2025 9:27 PM CST ACUTE CARE SURGERY OPERATIVE REPORT NAME: Serjio Sanderson : 1960 AGE: [age] year old ROOM #: OR 2 SEX: male PROC DATE: 07/01/25 ATTENDING SURGEON: Gregg Swenson DO RESIDENT SURGEON: aCrmelita Bermudez DO [employer] COUNTER SALES PERSON: Skye Sanchez MD PREOPERATIVE DIAGNOSIS: ventral hernia, incarcerated, perforation POSTOPERATIVE DIAGNOSIS: ventral hernia, incarcerated, perforation of small intestine, nectrotizingsoft tissue infection PROCEDURES: exploratory laparotomy, lysis of adhesions, recduction of hernia, small bowel resection, excisional debridement of soft tissue measuring [id number]. ANESTHESIA: General anesthesia FINDINGS: 6x6cm ventral hernia with incarcerated bowel. Large amount of stool encountered. Surrounding soft tissue with component of nectrotizing soft tissue infection requiring excisional debridement of [id number]. Small bowel perforation resected and left in discontinuity. Abthera placed. INDICATIONS: Srejio Sanderson is a 64 year old male who presented from OSH with concerns for an incarcerated ventral hernia with signs of perforation and surrounding soft tissue infection. Operativeintervention with exploratory laparotomy was indicated. Risks and benefits of the procedure including but not limited to bleeding, infection, damage to surrounding structures, and specifically the intestines and abdominal wall were discussed with the patient. He was in agreement and elected to proceed. . PROCEDURE IN DETAIL: The patient was taken to the operating room and identified by name, medical record number, and date of . An anesthesia timeout was performed identifying the correct patient,site, and procedure. All were in agreement and elected to proceed. The patient was transferred to the operating room table, General anesthesia was induced without difficulty and the patient was intubated. The patient was then placed in the Supine position with arms out. The following lines were in place/placed: canada catheter, peripheral IV, arterial line, and nasogastric tube. Previously administered broad spectrum antibiotics were continued and dosed appropriately throughout the case. After op timal positioning and padding of all pressure points, the abdomen was prepped and draped in the usual sterile fashion using betadine. A surgical timeout was performed identifying the correct patient,site, and procedure. All were in agreement and elected to proceed An incision was sharply made through his previous laparotomy incision. This was carried down through soft tissue until what appeared to be abdominal wall wasfound. A cavity was encountered to the right lateral edge that had copious feculent material inside. This was followed until what appeared to be the hernia was encountered. At this time a plane was developed under the skin. This allowed delineation of healthy skin and compromised skin. This demarcation was excised, exposing the hernia sac. Further excisional debridement of the subcutaneous soft tissue was completed. Dirty dishwater fluid was encountered and swabbed for culture. The hernia defect was circumferentially cleared of surrounding soft tissue. This was very difficult as there were dense adhesions from the hernia sac and the fascia. At this time, the hernia defect was opened superiorly to expose the abdomen and its contents further. The hernia sac was opened and small bowel and the transverse colon was encountered. Significant adhesions were encountered again requiring a combination of sharp and electrocautery adhesiolysis. The bowel was ran and found to have a perforation of the distal small intestine. This was resected in usual fashion with CISCO blue load stapler device. Decision was made to leave the patient in discontinuity due to pressor requirements. The remainder of the small bowel and colon appeared to be healthy without evidence of ischemia. There was a caliber change in the mid transverse colon with upstream dilation but no obvious perforation or injury. The abdomen was then copiously irrigated. The bowel was then placed back into the abdomen. An abthera wound vac device was then inserted into the abdomen and the abdomen was temporarily closed. At this point the procedure was concluded, anesthesia was terminated, the patient remained intubated and was transported to the ICU in Critical-stable condition. All sponge/needle/instrument counts were reported to me as correct at the conclusion of the case. COMPLICATIONS: None SPECIMENS: Small bowel resection, 2x wound cultures ESTIMATED BLOOD LOSS: 200cc FLUIDS/BLOOD PRODUCTS: see anesthesia report URINE OUTPUT: 50mL PACKS/DRAINS/CATHETERS: Abthera IMPLANTS: None CONDITION: Critical-stable DISPO: ICU ATTENDING PRESENCE: The attending surgeon, Gregg Swenson DO was present and scrubbed for the entire procedure Carmelita Bermudez DO 07/01/25 11:45PM Cosigned by Gregg Swenson DO at 07/02/2025 5:16 AM ELECTRIC ORGAN ASSEMBLER AND CHECKER TRIC ORGAN ASSEMBLER AND CHECKER TRIC ORGAN ASSEMBLER AND CHECKER Associated attestation - Gregg Swenson DO - 07/02/2025 5:16 AM ELECTRIC ORGAN ASSEMBLER AND CHECKER I was present and scrubbed for the entire procedure. I agree with the note as written. documented in this encounter ED Notes * Carlos Parkinson MD - 07/01/2025 6:50 PM CST Images from the original note were not included. EMERGENCY MEDICINE ATTENDING NOTE Resident Attestation Note I have personally seen, examined and been fully involved in the management of this patient with theresident. I confirm history, exam, assessment and plan discussed with the resident, and have reviewed their note. In addition I note/revise: Seen with ED Resident: Juan Luis Tolliver HPI: 64-year-old male with a history of COPD, CKD, heart failure ,HTN, pulmonary HTN and AFib. The patient's started this morning with severe pain in his abdomen and a blackish color and drainage of his anterior abdominal wall. Patient states that he has never had this before that he has had multiple surgeries on his abdomen before but never has let look like this. No chest pain. No shortness of breath. Has a history of COPD and CHF but does not feel short of breath. Last eight three days ago. No bowel movement today. No fevers has been having chills. Is on Xarelto for AFib.Seen at OSH and found to have possible necrotizing infection of the hernia and sent to [facility] for further management. Limted physical exam: Vitals: 07/02/25 1045 07/02/25 1100 07/02/25 1115 07/02/25 1130 BP: Pulse: (D) 57 (D) 67 (D) 59 (D) 55 Resp: (D) 12 (D) 12 (D) 12 (D) 12 Temp: (D) 98.42 ??F (36.9 ??C) (D) 98.42 ??F (36.9 ??C) (D) 98.6 ??F (37 ??C) (D) 98.6 ??F (37 ??C) SpO2: (D) 100% (D) 99% (D) 99% (D) 99% GENERAL: Sitting in bed in NAD, morbidly obese HEAD: Atraumatic, normocephalic. EYES: PERRL. No scleral icterus or conjunctival injection. EARS: Normal appearing. MOUTH: Moist mucus membranes. NECK: Trachea midline. No JVD CV: Regular rate and rhythm PV: Radial pulses 2+ bilaterally and symmetric. Trace pitting edema of the lower extremities CHEST: Chest symmetric with respirations. Lungs are clear to auscultation bilaterally. No rales, rhonchi, wheezing or stridor. ABDOMEN: Abdomen large and distended with pitting edema and [id number] appearance, has a large necrotic area in his anterior abdominal wall which is tender to palpation. See picture and chart BACK: No CVA tenderness MSK: No gross deformities or discolorations or lesions. NEURO: Alert and oriented to person, place, and time. MDM: 1. Necrotic anterior abdominal wall 2. Ventral hernia Differential diagnosis bowel obstruction ventral hernia, necrotic abdominal wall wound, anticoagulated, necrotizing fasciitis Plan: Consult surgery, patient has gotten vanc and Zosyn per outside chart. But will reconfirm Labs Reviewed CULTURE FLUID+GRAM STAIN - Abnormal; Notable for the following components: Result Value Gram Stain Light Polymorphonuclear cells (*) Gram Stain Heavy Gram-positive cocci (*) Gram Stain Heavy Gram-negative bacilli (*) Gram Stain Moderate Gram-positive bacilli (*) Gram Stain Rare Yeast (*) All other components within normal limits CULTURE FUNGUS OTHER+FUNGUS SMEAR - Abnormal; Notable for the following components: Culture Critical direct smear result (*) Fungus Stain Rare Yeast budding (*) All other components within normal limits CBC W AUTO DIFFERENTIAL - Abnormal; Notable for the following components: WBC 24.4 (*) RBC Count 3.89 (*) Hemoglobin 13.0 (*) MCV 100.0 (*) All other components within normal limits COMPREHENSIVE METABOLIC PANEL - Abnormal; Notable for the following components: BUN 46 (*) Creatinine 1.74 (*) Potassium 5.0 (*) Albumin 2.1 (*) Bilirubin Total 1.8 (*) AST 44 (*) BUN/Creatinine Ratio 26 (*) Osmolality Calculated 297 (*) Albumin/Globulin Ratio 0.5 (*) eGFR by CKD-EPI 43 (*) All other components within normal limits PT-INR - Abnormal; Notable for the following components: PT 33.1 (*) All other components within normal limits TEG 6 GLOBAL HEMOSTASIS W/ LYSIS - Abnormal; Notable for the following components: Citrated Kaolin R (Reaction Time) 9.3 (*) Citrated Functional Fibrinogen MA (Max Amplitude) >52.0 (*) Citrated RapidTEG MA (Max Amplitude) 74.6 (*) All other components within normal limits TEG 6S PLATELET MAPPING - Abnormal; Notable for the following components: TEGPLM (Max Amplitude) [place] >71.0 (*) TEGPLM (Max Amplitude) ACTF >30.0 (*) All other components within normal limits DIFFERENTIAL MANUAL - Abnormal; Notable for the following components: Neutrophil % 93 (*) Lymphocyte % 2 (*) Neutrophil Absolute 22.69 (*) Lymphocyte Absolute 0.49 (*) Monocyte Absolute 1.22 (*) [place] Cells MODERATE (*) Schistocytes FEW (*) Platelet Clumps PRESENT (*) All other components within normal limits CBC W/O DIFFERENTIAL - Abnormal; Notable for the following components: WBC 20.9 (*) RBC Count 3.64 (*) Hemoglobin 11.9 (*) Hematocrit 36.5 (*) MCV 100.3 (*) All other components within normal limits BASIC METABOLIC PANEL (CALCIUM TOTAL) - Abnormal; Notable for the following components: BUN 50 (*) Creatinine 1.75 (*) Potassium 5.1 (*) CO2 18 (*) Glucose 103 (*) BUN/Creatinine Ratio 29 (*) Osmolality Calculated 298 (*) eGFR by CKD-EPI 42 (*) All other components within normal limits PHOSPHORUS BLOOD - Abnormal; Notable for the following components: Phosphorus 6.7 (*) All other components within normal limits CALCIUM IONIZED WHOLE BLOOD - Abnormal; Notable for the following components: pH 7.31 (*) All other components within normal limits NT-PRO BNP - Abnormal; Notable for the following components: NT-proBNP 5,883.4 (*) All other components within normal limits Narrative: NT-pro-BNP values below 300 pg/mL, for individuals 18 or above, have a 99% negative predictive value for excluding acute congestive heart failure (CHF). In patients with eGFR less than 60 mL/min/1.73 m2, caution should be used when interpreting NT-pro-BNP results. Results should be assessed in conjunction with the patient???s medical history, clinical examination, and other findings. NT-pro-BNP is measured on the NinuaniSETVI analyzer using chemiluminescent microparticle immunoassay (CMIA) technology. LACTIC ACID WHOLE BLOOD - Abnormal; Notable for the following components: Lactic Acid Whole Blood 2.3 (*) All other components within normal limits URINALYSIS REFLEX TO MICROSCOPIC NO CULTURE - Abnormal; Notable for the following components: Clarity UA Turbid (*) Specific [place] UA 1.044 (*) Protein UA Trace (*) All other components within normal limits PT-INR - Abnormal; Notable for the following components: PT 28.6 (*) All other components within normal limits FIBRINOGEN ACTIVITY - Abnormal; Notable for the following components: Fibrinogen [place]auss 1,052 (*) All other components within normal limits BLOOD GASES ART + COOX PANEL - Abnormal; Notable for the following components: pH Arterial 7.31 (*) pO2 Arterial 280 (*) HCO3 Arterial 19.1 (*) BE Arterial -6.6 (*) All other components within normal limits Narrative: Carboxyhemoglobin Normal Concentration: Non-smokers: 0-2%; Smokers: 0-9%; Toxic: >20% VANCOMYCIN LEVEL TROUGH - Abnormal; Notable for the following components: Vancomycin Trough 39.4 (*) All other components within normal limits Narrative: See institution protocol. HEPATIC FUNCTION PANEL - Abnormal; Notable for the following components: Albumin 2.1 (*) Bilirubin Total 1.8 (*) Bilirubin Conjugated 1.3 (*) AST 43 (*) Albumin/Globulin Ratio 0.5 (*) All other components within normal limits BLOOD GASES ART + COOX PANEL - Abnormal; Notable for the following components: pO2 Arterial 171 (*) pCO2 Arterial 26 (*) HCO3 Arterial 17.7 (*) BE Arterial -5.2 (*) Hemoglobin by COOX 11.1 (*) All other components within normal limits Narrative: Carboxyhemoglobin Normal Concentration: Non-smokers: 0-2%; Smokers: 0-9%; Toxic: >20% BLOOD GASES ART + COOX PANEL - Abnormal; Notable for the following components: pO2 Arterial 150 (*) pCO2 Arterial 29 (*) HCO3 Arterial 19.7 (*) BE Arterial -3.5 (*) Carboxyhemoglobin 2.2 (*) Hemoglobin by COOX 10.8 (*) All other components within normal limits Narrative: Carboxyhemoglobin Normal Concentration: Non-smokers: 0-2%; Smokers: 0-9%; Toxic: >20% BASIC METABOLIC PANEL (CALCIUM TOTAL) - Abnormal; Notable for the following components: BUN 47 (*) Creatinine 1.48 (*) Glucose 143 (*) BUN/Creatinine Ratio 32 (*) Osmolality Calculated 301 (*) eGFR by CKD-EPI 52 (*) All other components within normal limits HEPATIC FUNCTION PANEL - Abnormal; Notable for the following components: Protein Total 5.1 (*) Albumin 1.5 (*) Bilirubin Total 2.2 (*) Bilirubin Conjugated 1.6 (*) AST 36 (*) Albumin/Globulin Ratio 0.4 (*) All other components within normal limits BLOOD GAS+COOX+LYTES+METAB ARTERIAL POCT - Abnormal; Notable for the following components: pH Arterial 7.30 (*) pO2 Arterial 243 (*) pCO2 Arterial 50 (*) BE Arterial -2.3 (*) Sodium Whole Blood 133 (*) Ionized Calcium pH Adjusted 1.09 (*) Glucose WB 100 (*) All other components within normal limits BLOOD GAS+COOX+LYTES+METAB ARTERIAL POCT - Abnormal; Notable for the following components: pH Arterial 7.30 (*) pO2 Arterial 243 (*) pCO2 Arterial 50 (*) BE Arterial -2.3 (*) Sodium Whole Blood 133 (*) Ionized Calcium pH Adjusted 1.09 (*) Glucose WB 100 (*) All other components within normal limits BLOOD GAS+COOX+LYTES+METAB ARTERIAL POCT - Abnormal; Notable for the following components: pH Arterial 7.30 (*) pO2 Arterial 199 (*) pCO2 Arterial 49 (*) BE Arterial -2.7 (*) Sodium Whole Blood 134 (*) Ionized Calcium pH Adjusted 1.16 (*) Glucose WB 103 (*) All other components within normal limits GLUCOSE - POINT OF CARE - Abnormal; Notable for the following components: Glucose WB/POC 100 (*) All other components within normal limits GLUCOSE - POINT OF CARE - Abnormal; Notable for the following components: Glucose WB/POC 119 (*) All other components within normal limits MRSA PCR - Normal Narrative: Methicillin-resistant Staphylococcus aureus (MRSA) DNA is not detected (presumed not colonized withMRSA). LACTIC ACID BLOOD REFLEX TO REPEAT - Normal VANCOMYCIN LEVEL RANDOM - Normal Narrative: See institution protocol. MAGNESIUM BLOOD - Normal TRIGLYCERIDES BLOOD - Normal PTT - Normal TSH - Normal LACTIC ACID WHOLE BLOOD - Normal LACTIC ACID BLOOD - Normal CULTURE ANAEROBE HEMOGLOBIN A1C PROLACTIN BLOOD GAS ART+LYTES+METAB+COOX POC NOTIF TYPE + SCREEN PANEL BLOOD TYPE VERIFICATION PREPARE FFP UNIT(S) PREPARE PLATELET PHERESIS UNIT(S) PREPARE RBC LEUKOREDUCED UNIT PATHOLOGY TISSUE GLUCOSE - POINT OF CARE XR Chest 1Vw Final Result PROCEDURE: XR CHEST 1VW, DATE/TIME OF EXAM: 07/02/2025 6:14 AM, LOCATION [facility] INDICATION: R10.84: Generalized abdominal pain ADDITIONAL CLINICAL INFORMATION: Ordering Provider Reason For Exam: ventilator Technologist Note: Additional: COMPARISON: This radiograph from 07/01/2025 FINDINGS: *Endotracheal tube terminates in the midtrachea. *Orogastric/nasogastric tube follows the path of the esophagus however the distal tube in the lower thorax is suboptimally evaluated. Unchanged opacification of the left mid and lower lung zones with suggestion of a bronchial cutoff sign concerning for atelectasis and mucus plugging. Cannot exclude superimposed pneumonia. Left costophrenic is incompletely imaged. Moderate left-sided pleural effusion. The cardiomediastinal silhouette is stable with atherosclerotic calcifications of the aorta. The bony thorax is intact. IMPRESSION: 1.Unchanged opacification of the left mid and lower lung zones with suggestion of a bronchial cutoff sign concerning for atelectasis and mucus plugging. Cannot exclude superimposed pneumonia. 2.Left costophrenic is incompletely imaged. Moderate left-sided pleural effusion. > Dictated by Damir Frances MD > Dictated by Disc Recordist I, Dean Quinteros MD have personally reviewed and interpreted this examination/study. > Interpreting Provider: Dean Quinteros MD on 07/02/2025 9:12 AM XR Abdomen Kub Final Result PROCEDURE: XR ABDOMEN KUB, DATE/TIME OF EXAM: 07/02/2025 12:02 AM, LOCATION [facility] INDICATION: R10.84: Generalized abdominal pain ADDITIONAL CLINICAL INFORMATION: Ordering Provider Reason For Exam: Technologist Note: Additional: post surgery exploratory laparotomy, lysis of adhesions, reduction of hernia, small bowel resection, excisional debridement of soft tissue COMPARISON: None. FINDINGS: Detail is limited. *Orogastric/nasogastric tube tip in the stomach, but the side-port is near the gastroesophageal junction. Consider advancing. *Canada catheter in place. There is no dilatation of small or large bowel. Expected pneumoperitoneum is not visible on this supine exam. Osseous structures are intact. IMPRESSION: Nonobstructive bowel gas pattern. Report dictated by Damir Frances MD post surgery > Dictated by Disc Recordist I, Ivis Waller MD have personally reviewed and interpreted this examination/study. > Interpreting Provider: Ivis Waller MD on 07/02/2025 9:50 AM XR CHEST 1VW PORTABLE Final Result PROCEDURE: XR CHEST 1VW PORTABLE, DATE/TIME OF EXAM: 07/02/2025 12:02 AM, LOCATION [facility] INDICATION: R10.84: Generalized abdominal pain ADDITIONAL CLINICAL INFORMATION: Ordering Provider Reason For Exam: intubated, post OR Technologist Note: Additional: COMPARISON: Portable chest 07/01/2025 at 11:52 PM. FINDINGS/IMPRESSION: Endotracheal tube terminates in the midthoracic trachea. There is an enteric tube seen coursing below the level of the diaphragm with the side port near the GE junction. There is a moderate to large left pleural effusion, possibly loculated. There is aeration only of a small portion of the left lower lobe. Partial aeration of the left upper lung field. No right pleural effusion or right pulmonary opacification is evident. No pneumothorax. The heart and mediastinum are partially obscured. Healed right rib fractures are noted. > Dictated by Bárbara Delatorre Dr, (executive vice president business development). > Dictated by Disc Recordist I, Ivis Waller MD have personally reviewed and interpreted this examination/study. > Interpreting Provider: Ivis Waller MD on 07/02/2025 9:42 AM ED course: ED Course as of 07/02/25 1138 Sun Jul 01, 2025 1852 Reviewed OSH chart, hx similar. Last intake of food was 3 days ago, is on zeralto for Afib andCHF. Was afebrile at OSH, WBC count was 27.99, hemoglobin was 12, and creatinine was 1.98. Pt got vancomycin and Zosyn at OSH. [AD] 185 ACS paged [AD] 1855 Discussed all the pertinent aspects of the case with ACS who will see the patient. [AD] 1924 ACS at bedside [AD] 1946 ACS plan for OR and will admit to their service [AD] 1947 After discussion with ACS, the patient will be admitted to their service for further management of abdominal pain. Admitting provider is Dr. Swenson. - I have reviewed the diagnostic findings with the patient and they have had an opportunity to ask me any questions they have about care, diagnosis, and reason for admission. The patient states understanding and agrees to admission. [AD] ED Course User Index [AD] Mariely Copeland Clinical Impressions as of 07/02/25 1138 Generalized abdominal pain Ventral hernia with gangrene ED Clinical Impression: 1. Ventral hernia with gangrene 2. Generalized abdominal pain 3. Trauma Carlos Parkinson MD Emergency Medicine Department of Surgery [employer] * Serene Mcknight MD - 07/01/2025 6:39 PM CST Images from the original note were not included. [facility] Emergency Department Emergency Medicine Resident Note Interval History: Serjio Sanderson is a 64 year old male with a PMHx including COPD, CKD, HF, HTN, pulmonary HTN, Afib on Xarelto, multiple abdominal surgeries presenting to the ED BIBEMS, per EMS, scans at OSH are concerning for necrotizing fasciitis, perforation, and hernia, vancomycin and cefepime administered at OSH. Pt c/o waking up with abdominal pain and blackish drainage and coloring to anterior abdominalwall. Pt endorses chills. Pt denies similar symptoms in the past, denies chest pain, SOB, or fevers. Pt states he has not eaten x 3 days. Past Medical History[1] Past Surgical History[2] Social History Socioeconomic History Marital status: Spouse name: Not on file Number of children: Not on file Years of education: Not on file Highest education level: Not on file Occupational History Not on file Tobacco Use Smoking status: Never Smokeless tobacco: Not on file Substance and Sexual Activity Alcohol use: No Drug use: No Sexual activity: Not on file Other Topics Concern Not on file Social History Narrative Not on file Social Drivers of Health Financial Resource Strain: Patient Unable To Answer (07/02/2025) Overall Financial Resource Strain (CARDIA) Difficulty of Paying Living Expenses: Patient unable to answer Food Insecurity: Patient Unable To Answer (07/02/2025) Hunger Vital Sign Worried About Running Out of Food in the Last Year: Patient unable to answer Ran Out of Food in the Last Year: Patient unable to answer Transportation Needs: Patient Unable To Answer (07/02/2025) PRAPARE - Transportation Lack of Transportation (Medical): Patient unable to answer Lack of Transportation (Non-Medical): Patient unable to answer Stress: Patient Unable To Answer (07/02/2025) [employer] [place] [employer] - Occupational Stress Questionnaire Feeling of Stress: Patient unable to answer Housing Stability: Patient Unable To Answer (07/02/2025) Housing Stability Vital Sign Unable to Pay for Housing in the Last Year: Patient unable to answer Number of Times Moved in the Last Year: Not on file Homeless in the Last Year: Patient unable to answer Review of Systems: Review of Systems Constitutional: Negative for fever. HENT: Negative for congestion. Respiratory: Negative for cough and shortness of breath. Cardiovascular: Negative for chest pain. Gastrointestinal: Positive for abdominal pain. Negative for diarrhea and vomiting. +discoloration of abdominal wall and drainage from abdominal wall Musculoskeletal: Negative for back pain and joint pain. Skin: Negative for rash. Neurological: Negative for speech change, focal weakness and headaches. All other systems reviewed and are negative. Patient Vitals for the past 6 hrs: Temp Pulse Resp BP 07/02/25 1000 98.4 ??F (36.9 ??C) 57 12 -- 07/02/25 0945 98.2 ??F (36.8 ??C) 58 12 -- 07/02/25 0930 98.2 ??F (36.8 ??C) 55 12 -- 07/02/25 0915 98.2 ??F (36.8 ??C) 54 12 -- 07/02/25 0900 98.2 ??F (36.8 ??C) 60 12 -- 07/02/25 0845 98.2 ??F (36.8 ??C) 61 12 -- 07/02/25 0830 98.2 ??F (36.8 ??C) 61 12 -- 07/02/25 0815 98.2 ??F (36.8 ??C) 65 12 -- 07/02/25 0800 98.2 ??F (36.8 ??C) 65 12 -- 07/02/25 0745 98.2 ??F (36.8 ??C) 66 12 -- 07/02/25 0730 98.2 ??F (36.8 ??C) 64 12 -- 07/02/25 0715 98.2 ??F (36.8 ??C) 63 12 -- 07/02/25 0700 98.2 ??F (36.8 ??C) 65 12 -- 07/02/25 0644 98.8 ??F (37.1 ??C) 69 16 98/51 07/02/25 0630 -- 69 16 -- 07/02/25 0615 -- 72 16 -- 07/02/25 0600 -- 63 16 -- 07/02/25 0545 -- 65 16 -- Exam: Physical Exam Vitals and nursing note reviewed. Exam conducted with a postal supervisor present. Constitutional: General: He is not in acute distress. Appearance: He is obese. He is not toxic-appearing or diaphoretic. Comments: Obese, body habitus HENT: Head: Normocephalic. Nose: Nose normal. Eyes: Extraocular Movements: Extraocular movements intact. Pupils: Pupils are equal, round, and reactive to light. Cardiovascular: Rate and Rhythm: Normal rate and regular rhythm. Heart sounds: Normal heart sounds. Pulmonary: Effort: Pulmonary effort is normal. No respiratory distress. Breath sounds: Normal breath sounds. Abdominal: Comments: evidence of ecchymosis, TTP, and erythema to upper abdomen greater than 10 cm in diameter Musculoskeletal: General: No deformity. Cervical back: Normal range of motion. Skin: General: Skin is dry. Neurological: General: No focal deficit present. Mental Status: He is alert and oriented to person, place, and time. Psychiatric: Mood and Affect: Mood normal. Medical Decision Makin. Abdominal pain Differential diagnosis considered: Cellulitis vs abscess vs necrotizing fasciitis vs other Plan: ACS consult, labs, review OSH paperwork Results: Labs Reviewed CULTURE FLUID+GRAM STAIN - Abnormal; Notable for the following components: Result Value Gram Stain Light Polymorphonuclear cells (*) Gram Stain Heavy Gram-positive cocci (*) Gram Stain Heavy Gram-negative bacilli (*) Gram Stain Moderate Gram-positive bacilli (*) Gram Stain Rare Yeast (*) All other components within normal limits CULTURE FUNGUS OTHER+FUNGUS SMEAR - Abnormal; Notable for the following components: Culture Critical direct smear result (*) Fungus Stain Rare Yeast budding (*) All other components within normal limits CBC W AUTO DIFFERENTIAL - Abnormal; Notable for the following components: WBC 24.4 (*) RBC Count 3.89 (*) Hemoglobin 13.0 (*) MCV 100.0 (*) All other components within normal limits COMPREHENSIVE METABOLIC PANEL - Abnormal; Notable for the following components: BUN 46 (*) Creatinine 1.74 (*) Potassium 5.0 (*) Albumin 2.1 (*) Bilirubin Total 1.8 (*) AST 44 (*) BUN/Creatinine Ratio 26 (*) Osmolality Calculated 297 (*) Albumin/Globulin Ratio 0.5 (*) eGFR by CKD-EPI 43 (*) All other components within normal limits PT-INR - Abnormal; Notable for the following components: PT 33.1 (*) All other components within normal limits TEG 6 GLOBAL HEMOSTASIS W/ LYSIS - Abnormal; Notable for the following components: Citrated Kaolin R (Reaction Time) 9.3 (*) Citrated Functional Fibrinogen MA (Max Amplitude) >52.0 (*) Citrated RapidTEG MA (Max Amplitude) 74.6 (*) All other components within normal limits TEG 6S PLATELET MAPPING - Abnormal; Notable for the following components: TEGPLM (Max Amplitude) [place] >71.0 (*) TEGPLM (Max Amplitude) ACTF >30.0 (*) All other components within normal limits DIFFERENTIAL MANUAL - Abnormal; Notable for the following components: Neutrophil % 93 (*) Lymphocyte % 2 (*) Neutrophil Absolute 22.69 (*) Lymphocyte Absolute 0.49 (*) Monocyte Absolute 1.22 (*) [place] Cells MODERATE (*) Schistocytes FEW (*) Platelet Clumps PRESENT (*) All other components within normal limits CBC W/O DIFFERENTIAL - Abnormal; Notable for the following components: WBC 20.9 (*) RBC Count 3.64 (*) Hemoglobin 11.9 (*) Hematocrit 36.5 (*) MCV 100.3 (*) All other components within normal limits BASIC METABOLIC PANEL (CALCIUM TOTAL) - Abnormal; Notable for the following components: BUN 50 (*) Creatinine 1.75 (*) Potassium 5.1 (*) CO2 18 (*) Glucose 103 (*) BUN/Creatinine Ratio 29 (*) Osmolality Calculated 298 (*) eGFR by CKD-EPI 42 (*) All other components within normal limits PHOSPHORUS BLOOD - Abnormal; Notable for the following components: Phosphorus 6.7 (*) All other components within normal limits CALCIUM IONIZED WHOLE BLOOD - Abnormal; Notable for the following components: pH 7.31 (*) All other components within normal limits NT-PRO BNP - Abnormal; Notable for the following components: NT-proBNP 5,883.4 (*) All other components within normal limits Narrative: NT-pro-BNP values below 300 pg/mL, for individuals 18 or above, have a 99% negative predictive value for excluding acute congestive heart failure (CHF). In patients with eGFR less than 60 mL/min/1.73 m2, caution should be used when interpreting NT-pro-BNP results. Results should be assessed in conjunction with the patient???s medical history, clinical examination, and other findings. NT-pro-BNP is measured on the [employer] analyzer using chemiluminescent microparticle immunoassay (CMIA) technology. LACTIC ACID WHOLE BLOOD - Abnormal; Notable for the following components: Lactic Acid Whole Blood 2.3 (*) All other components within normal limits URINALYSIS REFLEX TO MICROSCOPIC NO CULTURE - Abnormal; Notable for the following components: Clarity UA Turbid (*) Specific [place] UA 1.044 (*) Protein UA Trace (*) All other components within normal limits PT-INR - Abnormal; Notable for the following components: PT 28.6 (*) All other components within normal limits FIBRINOGEN ACTIVITY - Abnormal; Notable for the following components: Fibrinogen [place] 1,052 (*) All other components within normal limits BLOOD GASES ART + COOX PANEL - Abnormal; Notable for the following components: pH Arterial 7.31 (*) pO2 Arterial 280 (*) HCO3 Arterial 19.1 (*) BE Arterial -6.6 (*) All other components within normal limits Narrative: Carboxyhemoglobin Normal Concentration: Non-smokers: 0-2%; Smokers: 0-9%; Toxic: >20% VANCOMYCIN LEVEL TROUGH - Abnormal; Notable for the following components: Vancomycin Trough 39.4 (*) All other components within normal limits Narrative: See institution protocol. HEPATIC FUNCTION PANEL - Abnormal; Notable for the following components: Albumin 2.1 (*) Bilirubin Total 1.8 (*) Bilirubin Conjugated 1.3 (*) AST 43 (*) Albumin/Globulin Ratio 0.5 (*) All other components within normal limits BLOOD GASES ART + COOX PANEL - Abnormal; Notable for the following components: pO2 Arterial 171 (*) pCO2 Arterial 26 (*) HCO3 Arterial 17.7 (*) BE Arterial -5.2 (*) Hemoglobin by COOX 11.1 (*) All other components within normal limits Narrative: Carboxyhemoglobin Normal Concentration: Non-smokers: 0-2%; Smokers: 0-9%; Toxic: >20% BLOOD GASES ART + COOX PANEL - Abnormal; Notable for the following components: pO2 Arterial 150 (*) pCO2 Arterial 29 (*) HCO3 Arterial 19.7 (*) BE Arterial -3.5 (*) Carboxyhemoglobin 2.2 (*) Hemoglobin by COOX 10.8 (*) All other components within normal limits Narrative: Carboxyhemoglobin Normal Concentration: Non-smokers: 0-2%; Smokers: 0-9%; Toxic: >20% BASIC METABOLIC PANEL (CALCIUM TOTAL) - Abnormal; Notable for the following components: BUN 47 (*) Creatinine 1.48 (*) Glucose 143 (*) BUN/Creatinine Ratio 32 (*) Osmolality Calculated 301 (*) eGFR by CKD-EPI 52 (*) All other components within normal limits HEPATIC FUNCTION PANEL - Abnormal; Notable for the following components: Protein Total 5.1 (*) Albumin 1.5 (*) Bilirubin Total 2.2 (*) Bilirubin Conjugated 1.6 (*) AST 36 (*) Albumin/Globulin Ratio 0.4 (*) All other components within normal limits BLOOD GAS+COOX+LYTES+METAB ARTERIAL POCT - Abnormal; Notable for the following components: pH Arterial 7.30 (*) pO2 Arterial 243 (*) pCO2 Arterial 50 (*) BE Arterial -2.3 (*) Sodium Whole Blood 133 (*) Ionized Calcium pH Adjusted 1.09 (*) Glucose WB 100 (*) All other components within normal limits BLOOD GAS+COOX+LYTES+METAB ARTERIAL POCT - Abnormal; Notable for the following components: pH Arterial 7.30 (*) pO2 Arterial 243 (*) pCO2 Arterial 50 (*) BE Arterial -2.3 (*) Sodium Whole Blood 133 (*) Ionized Calcium pH Adjusted 1.09 (*) Glucose WB 100 (*) All other components within normal limits BLOOD GAS+COOX+LYTES+METAB ARTERIAL POCT - Abnormal; Notable for the following components: pH Arterial 7.30 (*) pO2 Arterial 199 (*) pCO2 Arterial 49 (*) BE Arterial -2.7 (*) Sodium Whole Blood 134 (*) Ionized Calcium pH Adjusted 1.16 (*) Glucose WB 103 (*) All other components within normal limits GLUCOSE - POINT OF CARE - Abnormal; Notable for the following components: Glucose WB/POC 100 (*) All other components within normal limits GLUCOSE - POINT OF CARE - Abnormal; Notable for the following components: Glucose WB/POC 119 (*) All other components within normal limits MRSA PCR - Normal Narrative: Methicillin-resistant Staphylococcus aureus (MRSA) DNA is not detected (presumed not colonized withMRSA). LACTIC ACID BLOOD REFLEX TO REPEAT - Normal VANCOMYCIN LEVEL RANDOM - Normal Narrative: See institution protocol. MAGNESIUM BLOOD - Normal TRIGLYCERIDES BLOOD - Normal PTT - Normal TSH - Normal LACTIC ACID WHOLE BLOOD - Normal LACTIC ACID BLOOD - Normal CULTURE ANAEROBE HEMOGLOBIN A1C PROLACTIN BLOOD GAS ART+LYTES+METAB+COOX POC NOTIF TYPE + SCREEN PANEL BLOOD TYPE VERIFICATION PREPARE FFP UNIT(S) PREPARE PLATELET PHERESIS UNIT(S) PREPARE RBC LEUKOREDUCED UNIT PATHOLOGY TISSUE GLUCOSE - POINT OF CARE XR Chest 1Vw Final Result PROCEDURE: XR CHEST 1VW, DATE/TIME OF EXAM: 07/02/2025 6:14 AM, LOCATION [facility] INDICATION: R10.84: Generalized abdominal pain ADDITIONAL CLINICAL INFORMATION: Ordering Provider Reason For Exam: ventilator Technologist Note: Additional: COMPARISON: This radiograph from 07/01/2025 FINDINGS: *Endotracheal tube terminates in the midtrachea. *Orogastric/nasogastric tube follows the path of the esophagus however the distal tube in the lower thorax is suboptimally evaluated. Unchanged opacification of the left mid and lower lung zones with suggestion of a bronchial cutoff sign concerning for atelectasis and mucus plugging. Cannot exclude superimposed pneumonia. Left costophrenic is incompletely imaged. Moderate left-sided pleural effusion. The cardiomediastinal silhouette is stable with atherosclerotic calcifications of the aorta. The bony thorax is intact. IMPRESSION: 1.Unchanged opacification of the left mid and lower lung zones with suggestion of a bronchial cutoff sign concerning for atelectasis and mucus plugging. Cannot exclude superimposed pneumonia. 2.Left costophrenic is incompletely imaged. Moderate left-sided pleural effusion. > Dictated by Damir Frances MD > Dictated by Disc Recordist I, Dean Quinteros MD have personally reviewed and interpreted this examination/study. > Interpreting Provider: Dean Quinteros MD on 07/02/2025 9:12 AM XR Abdomen Kub Final Result PROCEDURE: XR ABDOMEN KUB, DATE/TIME OF EXAM: 07/02/2025 12:02 AM, LOCATION [facility] INDICATION: R10.84: Generalized abdominal pain ADDITIONAL CLINICAL INFORMATION: Ordering Provider Reason For Exam: Technologist Note: Additional: post surgery exploratory laparotomy, lysis of adhesions, reduction of hernia, small bowel resection, excisional debridement of soft tissue COMPARISON: None. FINDINGS: Detail is limited. *Orogastric/nasogastric tube tip in the stomach, but the side-port is near the gastroesophageal junction. Consider advancing. *Canada catheter in place. There is no dilatation of small or large bowel. Expected pneumoperitoneum is not visible on this supine exam. Osseous structures are intact. IMPRESSION: Nonobstructive bowel gas pattern. Report dictated by Damir Frances MD post surgery > Dictated by Disc Recordist I, Ivis Waller MD have personally reviewed and interpreted this examination/study. > Interpreting Provider: Ivis Waller MD on 07/02/2025 9:50 AM XR CHEST 1VW PORTABLE Final Result PROCEDURE: XR CHEST 1VW PORTABLE, DATE/TIME OF EXAM: 07/02/2025 12:02 AM, LOCATION [facility] INDICATION: R10.84: Generalized abdominal pain ADDITIONAL CLINICAL INFORMATION: Ordering Provider Reason For Exam: intubated, post OR Technologist Note: Additional: COMPARISON: Portable chest 07/01/2025 at 11:52 PM. FINDINGS/IMPRESSION: Endotracheal tube terminates in the midthoracic trachea. There is an enteric tube seen coursing below the level of the diaphragm with the side port near the GE junction. There is a moderate to large left pleural effusion, possibly loculated. There is aeration only of a small portion of the left lower lobe. Partial aeration of the left upper lung field. No right pleural effusion or right pulmonary opacification is evident. No pneumothorax. The heart and mediastinum are partially obscured. Healed right rib fractures are noted. > Dictated by Bárbara Delatorre Dr, (executive vice president business development). > Dictated by Disc Recordist I, Ivis Waller MD have personally reviewed and interpreted this examination/study. > Interpreting Provider: Ivis Waller MD on 07/02/2025 9:42 AM ED course: ED Course as of 07/02/25 1141 Sun Jul 01, 2025 185 Reviewed OSH chart, hx similar. Last intake of food was 3 days ago, is on zeralto for Afib andCHF. Was afebrile at OSH, WBC count was 27.99, hemoglobin was 12, and creatinine was 1.98. Pt got vancomycin and Zosyn at OSH. [AD] 1853 ACS paged [AD] 1856 Discussed all the pertinent aspects of the case with ACS who will see the patient. [AD] 1925 ACS at bedside [AD] 1947 ACS plan for OR and will admit to their service [AD] 1948 After discussion with ACS, the patient will be admitted to their service for further management of abdominal pain. Admitting provider is Dr. Swenson. - I have reviewed the diagnostic findings with the patient and they have had an opportunity to ask me any questions they have about care, diagnosis, and reason for admission. The patient states understanding and agrees to admission. [AD] ED Course User Index [AD] Mariely Copeland Clinical Impressions as of 07/02/25 1141 Generalized abdominal pain Ventral hernia with gangrene The patient's Oxygen Saturation Monitor was interpreted by me. The reading was 93%. The patient wason RA at the time of the reading. This is interpreted as normal. Consult Yes Procedure done at this time No Ultrasound done at this time No Orders and Medicine administered during this encounter: Orders Placed This Encounter MRSA PCR CULTURE FLUID+GRAM STAIN CULTURE ANAEROBE CULTURE FUNGUS OTHER+FUNGUS SMEAR XR CHEST 1VW PORTABLE XR Abdomen Kub XR Chest 1Vw CBC W AUTO DIFFERENTIAL COMPREHENSIVE METABOLIC PANEL LACTIC ACID BLOOD REFLEX TO REPEAT PT-INR PROLACTIN TEG 6 GLOBAL HEMOSTASIS W/ LYSIS TEG 6S PLATELET MAPPING VANCOMYCIN LEVEL RANDOM DIFFERENTIAL MANUAL BLOOD GAS ART+LYTES+METAB+COOX POC NOTIF CBC W/O DIFFERENTIAL BASIC METABOLIC PANEL (CALCIUM TOTAL) PHOSPHORUS BLOOD CALCIUM IONIZED WHOLE BLOOD MAGNESIUM BLOOD NT-PRO BNP TRIGLYCERIDES BLOOD LACTIC ACID WHOLE BLOOD URINALYSIS REFLEX TO MICROSCOPIC NO CULTURE PT-INR PTT FIBRINOGEN ACTIVITY BLOOD GASES ART + COOX PANEL VANCOMYCIN LEVEL TROUGH HEPATIC FUNCTION PANEL TSH HEMOGLOBIN A1C VANCOMYCIN LEVEL RANDOM BLOOD GASES ART + COOX PANEL LACTIC ACID WHOLE BLOOD BLOOD GASES ART + COOX PANEL BASIC METABOLIC PANEL (CALCIUM TOTAL) LACTIC ACID BLOOD HEPATIC FUNCTION PANEL IP CONSULT TO GENERAL SURGERY IP CONSULT TO NUTRITIONAL SERV IP CONSULT TO COORDINATOR OF ONLINE PROGRAMS IP CONSULT TO PASTORAL CARE IP CONSULT TO CASE MANAGEMENT Pulse Oximetry, Continuous PULSE OXIMETRY, CONTINUOUS INITIATE SBT (VENTILATOR LIBERATION TRIAL) PROTOCOL BRONCHIAL HYGIENE MECHANICAL VENTILATION PATHOLOGY TISSUE AND Linked Order Group 0.9% NaCl injection 3 mL 0.9% NaCl injection 1-10 mL clindamycin (Cleocin) 900 mg in 50 mL D5W IVPB piperacillin - tazobactam (Zosyn) 4.5 g in NaCl IV 0.9 % 110 mL IVPB vancomycin (Vancocin) IV dose per pharmacy 0.9% NaCl infusion rate and volume DISCONTD: prothrombin complex conc human (Kcentra) injection 5,500 Units DISCONTD: 0.9% NaCl infusion DISCONTD: lactated ringers infusion DISCONTD: fentaNYL (PF) (Sublimaze) injection 25 mcg DISCONTD: fentaNYL (PF) (Sublimaze) injection 50 mcg DISCONTD: HYDROmorphone (Dilaudid) injection 0.5 mg DISCONTD: prochlorperazine (Compazine) injection 10 mg DISCONTD: metoclopramide (Reglan) injection 10 mg DISCONTD: droPERidol (Inapsine) injection 0.625 mg DISCONTD: labetalol (Normodyne; Trandate) injection 5 mg DISCONTD: hydrALAZINE (Apresoline) injection 5 mg DISCONTD: albuterol-ipratropium (Duo-Neb) nebulizer solution 3 mL DISCONTD: naloxone (Narcan) injection 0.04 mg DISCONTD: throat lozenge 1 lozenge DISCONTD: prothrombin complex conc human (Kcentra) injection 2,176 Units DISCONTD: 0.9% NaCl infusion AND Linked Order Group prothrombin complex conc human (Kcentra) injection 2,202 Units 0.9% NaCl infusion artificial tears ophthalmic ointment chlorhexidine (Peridex) 0.12 % oral solution 15 mL propofol (Diprivan) 1000 mg in 100 mL infusion fentaNYL 2500 mcg/50mL infusion fentaNYL (Sublimaze) bolus from bag 50 mcg norepinephrine (Levophed) 8 mg/250 ml NS infusion premix DISCONTD: isolyte-S pH 7.4 infusion DISCONTD: piperacillin - tazobactam (Zosyn) 4.5 g in NaCl IV 0.9 % 100 mL IVPB DISCONTD: piperacillin - tazobactam (Zosyn) 4.5 g in NaCl IV 0.9 % 100 mL IVPB DISCONTD: clindamycin (Cleocin) 900 mg in 50 mL D5W IVPB DISCONTD: vancomycin (Vancocin) IV dose per pharmacy pantoprazole (Protonix) injection 40 mg DISCONTD: sodium bicarbonate 8.4 % 75 mEq in 0.45% NaCl infusion (isotonic fluid) DISCONTD: sodium bicarbonate 8.4 % 150 mEq in dextrose 5 % infusion DISCONTD: isolyte-S pH 7.4 infusion sodium bicarbonate 8.4 % 150 mEq in dextrose 5 % infusion levothyroxine sodium (Synthroid) injection 20 mcg fluconazole (Diflucan) 400 mg in 200 mL saline IVPB heparin injection 7,500 Units Medications 0.9% NaCl injection 3 mL (3 mL Intracatheter $ Given 07/02/25 0619) And 0.9% NaCl injection 1-10 mL (has no administration in time range) clindamycin (Cleocin) 900 mg in 50 mL D5W IVPB (0 mg Intravenous Stopped 07/02/25 0439) piperacillin - tazobactam (Zosyn) 4.5 g in NaCl IV 0.9 % 110 mL IVPB (0 g Intravenous Stopped 07/02/25 0743) vancomycin (Vancocin) IV dose per pharmacy ( Does not apply Stopped 07/01/252199) 0.9% NaCl infusion rate and volume (has no administration in time range) prothrombin complex conc human (Kcentra) injection 2,202 Units ( Intravenous Stopped 07/01/252109) And 0.9% NaCl infusion (has no administration in time range) artificial tears ophthalmic ointment ( Each Eye $ Given 07/02/25 0619) chlorhexidine (Peridex) 0.12 % oral solution 15 mL (15 mL Mouth/Throat $ Given 07/02/25 08) propofol (Diprivan) 1000 mg in 100 mL infusion (40 mcg/kg/min ?? 179.2 kg Intravenous $ New Bag/Syringe 07/02/25 1111) fentaNYL 2500 mcg/50mL infusion (150 mcg/hr Intravenous $ New Bag/Syringe 07/02/25 1107) fentaNYL (Sublimaze) bolus from bag 50 mcg (has no administration in time range) norepinephrine (Levophed) 8 mg/250 ml NS infusion premix (0.07 mcg/kg/min ?? 179.2 kg Intravenous Rate Change 07/02/25 0933) pantoprazole (Protonix) injection 40 mg (40 mg Intravenous $ Given 07/02/25 08) sodium bicarbonate 8.4 % 150 mEq in dextrose 5 % infusion ( Intravenous Current Rate 07/02/25 1008) levothyroxine sodium (Synthroid) injection 20 mcg (has no administration in time range) fluconazole (Diflucan) 400 mg in 200 mL saline IVPB ( Intravenous Current Rate 07/02/25 1008) heparin injection 7,500 Units (has no administration in time range) Clinical Impression: 1. Ventral hernia with gangrene 2. Generalized abdominal pain 3. Trauma Summary: This is a 64 year old male presenting for abdominal pain. Exam is notable for older man with obese body habitus with evidence of a large area of ecchymosis discoloration swelling and tenderness to the left upper abdomen. All other physical exam components are within normal limits as above Imaging at outside hospital with concerns for necrotizing fasciitis of the abdomen. Patient arrivedwith images and findings from outside hospital imaging. Assessment is most consistent with necrotizing fasciitis of the abdomen. Plan is for patient to be admitted to ACS service for immediate level 1 surgery for debridement. Disposition: Admit to ACS. By signing my name below, I, Mariely Dinorah, attest that this documentation has been prepared under the direction and in the presence of Dr. Mcknight. Signed: Khris Martinez. Serene Mcknight M.D. Resident Physician, PGY-2 [facility] [1] No past medical history on file. [2] Past Surgical History: Procedure Laterality Date Hernia Repair 2008, 2010 Laparotomy N/A 07/01/2025 N/A; LAPAROTOMY EXPLORATORY, soft tissue excisional debridement, lysis of adhesions, small bowel resection, abthera placement SINUS SURGERY 1994 Cosigned by Carlos Parkinson MD at 07/02/2025 1:02 PM [employer]ER [employer]ER [employer]ER * Toby Rodrigues RN - 07/01/2025 5:24 PM CST Bed: [facility] Expected date: Expected time: Means of arrival: Comments: Peter transfer, hernia (abscess) [employer] documented in this encounter Plan of Treatment Pending Results Name Type Priority Associated Diagnoses Date /Time CULTURE FUNGUS OTHER+FUNGUS SMEAR Microbiology Routine Generalized abdominal pain 07/01/2025 11:50 PM [employer] CULTURE FUNGUS OTHER+FUNGUS SMEAR Microbiology STAT Ventral hernia with gangrene 07/05/2025 10:47 AM [employer] Scheduled Orders Name Type Priority Associated Diagnoses Order Schedule High Flow Nasal Cannula Therapy Respiratory Care Routine ONCE for 1 Occurrences starting 07/05/2025 until 07/05/2025 REASSESSMENT PARAMETERS Respiratory Care Routine ONCE for 1 Occurrences starting 07/06/2025 until 07/06/2025 documented as of this encounter Procedures Procedure Name Priority Date/Time Associated Diagnosis Comments GLUCOSE - POINT OF CARE Routine 07/18/2025 3:27 AM [employer] GLUCOSE - POINT OF CARE Routine 07/17/2025 11:11 PM [employer]ER GLUCOSE - POINT OF CARE Routine 07/17/2025 7:44 PM [employer] CHECKER GLUCOSE - POINT OF CARE Routine 07/17/2025 4:59 PM [employer] CHECKER GLUCOSE - POINT OF CARE Routine 07/17/2025 12:24 PM E[employer] CHECKER GLUCOSE - POINT OF CARE Routine 07/17/2025 7:49 AM E[employer] AND CHECKER GLUCOSE - POINT OF CARE Routine 07/17/2025 4:20 AM E[employer] AND CHECKER GLUCOSE - POINT OF CARE Routine 07/17/2025 12:25 AM E[employer] AND CHECKER GLUCOSE - POINT OF CARE Routine 07/16/2025 9:19 PM E[employer] CHECKER GLUCOSE - POINT OF CARE Routine 07/16/2025 3:56 PM [employer] AND CHECKER GLUCOSE - POINT OF CARE Routine 07/16/2025 11:24 AM E[employer] CHECKER GLUCOSE - POINT OF CARE Routine 07/16/2025 8:59 AM E[employer]ER CBC W AUTO DIFFERENTIAL STAT 07/16/2025 5:45 AM E[employer] CHECKER BASIC METABOLIC PANEL (CALCIUM TOTAL) Routine 07/16/2025 5:45 AM [employer]ER PHOSPHORUS BLOOD Routine 07/16/2025 5:45 AM [employer]ER MAGNESIUM BLOOD Routine 07/16/2025 5:45 AM E[employer] AND CHECKER GLUCOSE - POINT OF CARE Routine 07/16/2025 5:09 AM E[employer] AND CHECKER GLUCOSE - POINT OF CARE Routine 07/16/2025 12:05 AM E[employer] AND CHECKER GLUCOSE - POINT OF CARE Routine 07/15/2025 8:41 PM E[employer] CHECKER GLUCOSE - POINT OF CARE Routine 07/15/2025 5:44 PM E[employer] AND CHECKER GLUCOSE - POINT OF CARE Routine 07/15/2025 12:04 PM E[employer]ER AND CHECKER GLUCOSE - POINT OF CARE Routine 07/15/2025 7:55 AM E[employer] AND CHECKER GLUCOSE - POINT OF CARE Routine 07/15/2025 5:25 AM E[employer]ER AND CHECKER GLUCOSE - POINT OF CARE Routine 07/15/2025 1:13 AM E[employer] AND CHECKER GLUCOSE - POINT OF CARE Routine 07/14/2025 10:00 PM E[employer] CHECKER GLUCOSE - POINT OF CARE Routine 07/14/2025 5:08 PM E[employer] CHECKER GLUCOSE - POINT OF CARE Routine 07/14/2025 12:18 PM E[employer] CHECKER GLUCOSE - POINT OF CARE Routine 07/14/2025 8:07 AM E[employer]ER PTT Routine 07/14/2025 6:02 AM [employer]ER Chronic atrial fibrillation (HCC) PT-INR Routine 07/14/2025 6:02 AM [employer]ER Chronic atrial fibrillation (HCC) CBC W/O DIFFERENTIAL STAT 07/14/2025 6:02 AM E[employer]ER Generalized abdominal pain GLUCOSE - POINT OF CARE Routine 07/14/2025 5:24 AM E[employer] CHECKER GLUCOSE - POINT OF CARE Routine 07/14/2025 12:10 AM E[employer] AND CHECKER GLUCOSE - POINT OF CARE Routine 07/13/2025 8:21 PM E[employer] AND CHECKER GLUCOSE - POINT OF CARE Routine 07/13/2025 6:29 PM E[employer] AND CHECKER GLUCOSE - POINT OF CARE Routine 07/13/2025 12:41 PM E[employer]ER AND CHECKER GLUCOSE - POINT OF CARE Routine 07/13/2025 8:47 AM E[employer] AND CHECKER GLUCOSE - POINT OF CARE Routine 07/13/2025 6:23 AM E[employer] CHECKER PTT Routine 07/13/2025 5:50 AM E[employer]ER Chronic atrial fibrillation (HCC) PT-INR Routine 07/13/2025 5:50 AM [employer]ER Chronic atrial fibrillation (HCC) CBC W/O DIFFERENTIAL STAT 07/13/2025 4:01 AM E[employer]ER Generalized abdominal pain BASIC METABOLIC PANEL (CALCIUM TOTAL) STAT 07/13/2025 4:01 AM [employer]ER Generalized abdominal pain PHOSPHORUS BLOOD STAT 07/13/2025 4:01 AM E[employer]ER Ventral hernia with gangrene MAGNESIUM BLOOD STAT 07/13/2025 4:01 AM E[employer]ER Generalized abdominal pain GLUCOSE - POINT OF CARE Routine 07/13/2025 12:09 AM E[employer] AND CHECKER GLUCOSE - POINT OF CARE Routine 07/12/2025 8:26 PM E[employer] AND CHECKER GLUCOSE - POINT OF CARE Routine 07/12/2025 5:05 PM E[employer] AND CHECKER GLUCOSE - POINT OF CARE Routine 07/12/2025 11:03 AM E[employer] AND CHECKER GLUCOSE - POINT OF CARE Routine 07/12/2025 8:03 AM E[employer] CHECKER PTT Routine 07/12/2025 6:14 AM E[employer]ER Chronic atrial fibrillation (HCC) PT-INR Routine 07/12/2025 6:14 AM [employer]ER Chronic atrial fibrillation (HCC) CBC W/O DIFFERENTIAL STAT 07/12/2025 6:14 AM [employer]ER Generalized abdominal pain BASIC METABOLIC PANEL (CALCIUM TOTAL) STAT 07/12/2025 6:14 AM [employer]ER Generalized abdominal pain PHOSPHORUS BLOOD STAT 07/12/2025 6:14 AM E[employer]ER Ventral hernia with gangrene HEPATIC FUNCTION PANEL AM Draw 07/12/2025 6:14 AM E[employer] CHECKER MAGNESIUM BLOOD STAT 07/12/2025 6:14 AM E[employer]ER Generalized abdominal pain GLUCOSE - POINT OF CARE Routine 07/12/2025 5:07 AM E[employer] AND CHECKER GLUCOSE - POINT OF CARE Routine 07/12/2025 12:42 AM E[employer] AND CHECKER GLUCOSE - POINT OF CARE Routine 07/11/2025 9:36 PM E[employer] AND CHECKER GLUCOSE - POINT OF CARE Routine 07/11/2025 4:30 PM E[employer] AND CHECKER GLUCOSE - POINT OF CARE Routine 07/11/2025 11:25 AM E[employer] AND CHECKER GLUCOSE - POINT OF CARE Routine 07/11/2025 7:54 AM E[employer] AND CHECKER PTT Routine 07/11/2025 5:19 AM E[employer]ER Chronic atrial fibrillation (HCC) PT-INR Routine 07/11/2025 5:19 AM E[employer]ER Chronic atrial fibrillation (HCC) CBC W/O DIFFERENTIAL STAT 07/11/2025 5:19 AM E[employer]ER Generalized abdominal pain BASIC METABOLIC PANEL (CALCIUM TOTAL) STAT 07/11/2025 5:19 AM E[employer]ER Generalized abdominal pain PHOSPHORUS BLOOD STAT 07/11/2025 5:19 AM E[employer]ER Ventral hernia with gangrene MAGNESIUM BLOOD STAT 07/11/2025 5:19 AM E[employer]ER Generalized abdominal pain GLUCOSE - POINT OF CARE Routine 07/11/2025 4:28 AM E[employer] AND CHECKER GLUCOSE - POINT OF CARE Routine 07/10/2025 11:44 PM E[employer] AND CHECKER GLUCOSE - POINT OF CARE Routine 07/10/2025 7:51 PM E[employer]ER AND CHECKER GLUCOSE - POINT OF CARE Routine 07/10/2025 4:06 PM E[employer] AND CHECKER GLUCOSE - POINT OF CARE Routine 07/10/2025 11:18 AM E[employer] AND CHECKER GLUCOSE - POINT OF CARE Routine 07/10/2025 7:31 AM E[employer] AND CHECKER PTT Routine 07/10/2025 4:56 AM [employer]ER Chronic atrial fibrillation (HCC) PT-INR Routine 07/10/2025 4:56 AM E[employer]ER Chronic atrial fibrillation (HCC) CBC W/O DIFFERENTIAL STAT 07/10/2025 4:56 AM E[employer]ER Generalized abdominal pain BASIC METABOLIC PANEL (CALCIUM TOTAL) STAT 07/10/2025 4:56 AM E[employer] AND [employer]ER Generalized abdominal pain TRIGLYCERIDES BLOOD Routine 07/10/2025 4 :56 AM E[employer] AND [employer]ER PHOSPHORUS BLOOD STAT 07/10/2025 4:56 AM E[employer]ER Ventral hernia with gangrene MAGNESIUM BLOOD STAT 07/10/2025 4:56 AM E[employer]ER Generalized abdominal pain GLUCOSE - POINT OF CARE Routine 07/10/2025 3:32 AM E[employer] AND CHECKER GLUCOSE - POINT OF CARE Routine 07/10/2025 12:31 AM E[employer]ER AND CHECKER GLUCOSE - POINT OF CARE Routine 07/09/2025 7:46 PM E[employer]ER AND CHECKER GLUCOSE - POINT OF CARE Routine 07/09/2025 3:47 PM E[employer] AND CHECKER GLUCOSE - POINT OF CARE Routine 07/09/2025 12:56 PM E[employer] AND CHECKER GLUCOSE - POINT OF CARE Routine 07/09/2025 11:52 AM E[employer] AND CHECKER PTT Timed 07/09/2025 10:37 AM E[employer] AND CHECKER GLUCOSE - POINT OF CARE Routine 07/09/2025 8:37 AM E[employer] AND CHECKER BASIC METABOLIC PANEL (CALCIUM TOTAL) STAT 07/09/2025 6:12 AM E[employer] CHECKER Generalized abdominal pain GLUCOSE - POINT OF CARE Routine 07/09/2025 3:42 AM E[employer] AND CHECKER PTT Timed 07/09/2025 3:30 AM [employer]ER PT-INR Routine 07/09/2025 3:30 AM [employer]ER Chronic atrial fibrillation (HCC) CBC W/O DIFFERENTIAL STAT 07/09/2025 3:30 AM E[employer]ER Generalized abdominal pain PHOSPHORUS BLOOD STAT 07/09/2025 3:30 AM E[employer]ER Ventral hernia with gangrene MAGNESIUM BLOOD STAT 07/09/2025 3:30 AM E[employer]ER Generalized abdominal pain GLUCOSE - POINT OF CARE Routine 07/09/2025 12:00 AM E[employer]ER PTT Timed 07/08/2025 7:44 PM E[employer] AND CHECKER GLUCOSE - POINT OF CARE Routine 07/08/2025 7:43 PM E[employer] AND [employer]ER GLUCOSE - POINT OF CARE Routine 07/08/2025 4:43 PM E[employer] AND CHECKER GLUCOSE - POINT OF CARE Routine 07/08/2025 12:26 PM E[employer]ER PTT Timed 07/08/2025 11:39 AM [employer]ER Ventral hernia with gangrene Necrotizing soft tissue infection GLUCOSE - POINT OF CARE Routine 07/08/2025 7:52 AM E[employer]ER GLUCOSE - POINT OF CARE Routine 07/08/2025 3:30 AM E[employer]ER PTT Routine 07/08/2025 3:07 AM [employer]ER Chronic atrial fibrillation (HCC) PT-INR Routine 07/08/2025 3:07 AM [employer]ER Chronic atrial fibrillation (HCC) CBC W/O DIFFERENTIAL STAT 07/08/2025 3:07 AM [employer]ER Generalized abdominal pain BASIC METABOLIC PANEL (CALCIUM TOTAL) STAT 07/08/2025 3:07 AM [employer]ER Generalized abdominal pain PHOSPHORUS BLOOD STAT 07/08/2025 3:07 AM [employer]ER Ventral hernia with gangrene MAGNESIUM BLOOD STAT 07/08/2025 3:07 AM [employer]ER Generalized abdominal pain VANCOMYCIN LEVEL RANDOM Routine 07/08/2025 3:07 AM [employer]ER GLUCOSE - POINT OF CARE Routine 07/07/2025 11:54 PM [employer]ER GLUCOSE - POINT OF CARE Routine 07/07/2025 8:48 PM [employer]ER GLUCOSE - POINT OF CARE Routine 07/07/2025 4:38 PM E[employer]ER PTT STAT 07/07/2025 9:20 AM [employer] XR CHEST 1VW PORTABLE STAT 07/07/2025 4:37 AM [employer]ER Acute hypoxic respiratory failure (HCC) CALCIUM IONIZED WHOLE BLOOD STAT 07/07/2025 3:26 AM [employer]ER Generalized abdominal pain PTT Timed 07/07/2025 3:26 AM [employer]ER PT-INR Routine 07/07/2025 3:26 AM [employer]ER Chronic atrial fibrillation (HCC) CBC W/O DIFFERENTIAL STAT 07/07/2025 3:26 AM E[employer]ER Generalized abdominal pain BASIC METABOLIC PANEL (CALCIUM TOTAL) STAT 07/07/2025 3:26 AM E[employer]ER Generalized abdominal pain PHOSPHORUS BLOOD STAT 07/07/2025 3:26 AM [employer]ER Ventral hernia with gangrene MAGNESIUM BLOOD STAT 07/07/2025 3:26 AM E[employer]ER Generalized abdominal pain BLOOD GASES ART + COOX PANEL STAT 07/07/2025 3:26 AM E[employer]ER Ventral hernia with gangrene VANCOMYCIN LEVEL RANDOM Timed 07/07/2025 3:26 AM E[employer]ER PTT STAT 07/06/2025 8:26 PM E[employer]ER PTT Routine 07/06/2025 12:34 PM [employer]ER Chronic atrial fibrillation (HCC) PT-INR Routine 07/06/2025 12:34 PM [employer]ER Chronic atrial fibrillation (HCC) DIFFERENTIAL MANUAL Routine 07/06/2025 12:34 PM [employer]ER Chronic atrial fibrillation (HCC) CBC W AUTO DIFFERENTIAL Routine 07/06/2025 12:34 PM [employer]ER Chronic atrial fibrillation (HCC) XR CHEST 1VW PORTABLE Routine 07/06/2025 4:26 AM E[employer]ER Ventral hernia with gangrene CALCIUM IONIZED WHOLE BLOOD STAT 07/06/2025 1:31 AM E[employer]ER Generalized abdominal pain CBC W/O DIFFERENTIAL STAT 07/06/2025 1:31 AM E[employer]ER Generalized abdominal pain BASIC METABOLIC PANEL (CALCIUM TOTAL) STAT 07/06/2025 1:31 AM E[employer]ER Generalized abdominal pain PHOSPHORUS BLOOD STAT 07/06/2025 1:31 AM E[employer]ER Ventral hernia with gangrene MAGNESIUM BLOOD STAT 07/06/2025 1:31 AM E[employer]ER Generalized abdominal pain BLOOD GASES ART + COOX PANEL STAT 07/06/2025 1:31 AM E[employer]ER Ventral hernia with gangrene VANCOMYCIN LEVEL RANDOM Timed 07/05/2025 9:10 PM [employer]ER GLUCOSE - POINT OF CARE Routine 07/05/2025 9:09 PM E[employer]ER GLUCOSE - POINT OF CARE Routine 07/05/2025 6:19 PM [employer] IR PICC LINE INSERT Routine 07/05/2025 2 :30 PM [employer]ER Ventral hernia with gangrene XR CHEST 1VW PORTABLE STAT 07/05/2025 2:24 PM E[employer]ER Ventral hernia with gangrene GLUCOSE - POINT OF CARE Routine 07/05/2025 1:54 PM [employer]ER CULTURE FUNGUS OTHER+FUNGUS SMEAR STAT 07/05/2025 10:47 AM E[employer]ER Ventral hernia with gangrene CULTURE BRONCHIAL WASHING+GRAM STAIN Routine 07/05/2025 10:46 AM E[employer]ER Trauma GLUCOSE - POINT OF CARE Routine 07/05/2025 8:57 AM E[employer] AND CHECKER GLUCOSE - POINT OF CARE Routine 07/05/2025 4:56 AM E[employer] CHECKER XR CHEST 1VW PORTABLE STAT 07/05/2025 4:21 AM E[employer]ER Ventral hernia with gangrene CALCIUM IONIZED WHOLE BLOOD STAT 07/05/2025 12:38 AM E[employer]ER Generalized abdominal pain CBC W/O DIFFERENTIAL STAT 07/05/2025 12:38 AM E[employer]ER Generalized abdominal pain BASIC METABOLIC PANEL (CALCIUM TOTAL) STAT 07/05/2025 12:38 AM E[employer]ER Generalized abdominal pain PHOSPHORUS BLOOD STAT 07/05/2025 12:38 AM E[employer] CHECKER Ventral hernia with gangrene MAGNESIUM BLOOD STAT 07/05/2025 12:38 AM E[employer]ER Generalized abdominal pain BLOOD GASES ART + COOX PANEL STAT 07/05/2025 12:38 AM E[employer]ER Ventral hernia with gangrene GLUCOSE - POINT OF CARE Routine 07/05/2025 12:30 AM E[employer] AND CHECKER GLUCOSE - POINT OF CARE Routine 07/05/2025 12:27 AM E[employer] AND CHECKER GLUCOSE - POINT OF CARE Routine 07/04/2025 8:08 PM E[employer] AND CHECKER GLUCOSE - POINT OF CARE Routine 07/04/2025 4:43 PM [employer]ER VANCOMYCIN LEVEL TROUGH Timed 07/04/2025 3:29 PM [employer] XR ABDOMEN KUB PORTABLE STAT 07/04/2025 2:25 PM [employer]ER Ventral hernia with gangrene GLUCOSE - POINT OF CARE Routine 07/04/2025 1:44 PM E[employer]SEM[employer] CHECKER CT CHEST WO CONTRAST STAT 07/04/2025 9:44 AM E[employer]ER Ventral hernia with gangrene GLUCOSE - POINT OF CARE Routine 07/04/2025 8:15 AM E[employer] XR CHEST 1VW PORTABLE Routine 07/04/2025 4:23 AM E[employer]ER Ventral hernia with gangrene GLUCOSE - POINT OF CARE Routine 07/04/2025 4:08 AM E[employer]ER CALCIUM IONIZED WHOLE BLOOD STAT 07/03/2025 11:32 PM [employer] AND CHECKER Generalized abdominal pain GLUCOSE - POINT OF CARE Routine 07/03/2025 11:32 PM [employer]ER CBC W/O DIFFERENTIAL STAT 07/03/2025 11:32 PM [employer] AND CHECKER Generalized abdominal pain BASIC METABOLIC PANEL (CALCIUM TOTAL) STAT 07/03/2025 11:32 PM [employer] AND CHECKER Generalized abdominal pain PHOSPHORUS BLOOD STAT 07/03/2025 11:32 PM [employer]ER Ventral hernia with gangrene MAGNESIUM BLOOD STAT 07/03/2025 11:32 PM [employer]ER Generalized abdominal pain BLOOD GASES ART + COOX PANEL STAT 07/03/2025 11:32 PM [employer] AND CHECKER Ventral hernia with gangrene GLUCOSE - POINT OF CARE Routine 07/03/2025 8:00 PM [employer] AND CHECKER GLUCOSE - POINT OF CARE Routine 07/03/2025 5:08 PM [employer] AND CHECKER CBC W/O DIFFERENTIAL STAT 07/03/2025 1:31 PM [employer] AND CHECKER Ventral hernia with gangrene BASIC METABOLIC PANEL (CALCIUM TOTAL) STAT 07/03/2025 1:31 PM [employer] Ventral hernia with gangrene BLOOD GASES ART + COOX PANEL STAT 07/03/2025 1:31 PM [employer] Ventral hernia with gangrene XR ABDOMEN KUB PORTABLE STAT 07/03/2025 10:17 AM [employer] Incarcerated ventral hernia PATHOLOGY TISSUE Routine 07/03/2025 8:49 AM [employer] Incarcerated ventral hernia BLOOD GAS+COOX+LYTES+METAB ARTERIAL POCT Routine 07/03/2025 8:29 AM [employer] VT EXPLORATORY OF ABDOMEN 07/03/2025 7:25 AM [employer] Incarcerated ventral hernia EKG 12-LEAD Routine 07/03/2025 6:29 AM [employer] Ventral hernia with gangrene TRIGLYCERIDES BLOOD Routine 07/03/2025 6 :04 AM [employer] Ventral hernia with gangrene BLOOD GASES ART + COOX PANEL Routine 07/03/2025 6:04 AM [employer] Ventral hernia with gangrene XR CHEST 1VW Routine 07/03/2025 4:23 AM [employer] Ventral hernia with gangrene GLUCOSE - POINT OF CARE Routine 07/03/2025 3:40 AM [employer] BLOOD GASES ART + COOX PANEL Routine 07/03/2025 3:40 AM [employer] VANCOMYCIN LEVEL RANDOM Timed 07/03/2025 3:40 AM [employer] CALCIUM IONIZED WHOLE BLOOD STAT 07/02/2025 11:18 PM [employer] Generalized abdominal pain CBC W/O DIFFERENTIAL STAT 07/02/2025 11:18 PM [employer] Generalized abdominal pain BASIC METABOLIC PANEL (CALCIUM TOTAL) STAT 07/02/2025 11:18 PM [employer] Generalized abdominal pain PHOSPHORUS BLOOD STAT 07/02/2025 11:18 PM [employer] Ventral hernia with gangrene MAGNESIUM BLOOD STAT 07/02/2025 11:18 PM [employer] Generalized abdominal pain BLOOD GASES ART + COOX PANEL STAT 07/02/2025 11:18 PM [employer] Ventral hernia with gangrene GLUCOSE - POINT OF CARE Routine 07/02/2025 11:17 PM [employer] GLUCOSE - POINT OF CARE Routine 07/02/2025 7:59 PM [employer] GLUCOSE - POINT OF CARE Routine 07/02/2025 4:11 PM [employer] XR CHEST 1VW PORTABLE Routine 07/02/2025 1:47 PM [employer] Ventral hernia with gangrene GLUCOSE - POINT OF CARE Routine 07/02/2025 12:29 PM [employer] BASIC METABOLIC PANEL (CALCIUM TOTAL) STAT 07/02/2025 10:52 AM [employer] Generalized abdominal pain HEPATIC FUNCTION PANEL STAT 07/02/2025 10:52 AM [employer] Generalized abdominal pain LACTIC ACID BLOOD STAT 07/02/2025 10:52 AM [employer] Generalized abdominal pain BLOOD GASES ART + COOX PANEL STAT 07/02/2025 10:52 AM [employer] Generalized abdominal pain BLOOD GAS ART+LYTES+METAB+COOX POC NOTIF STAT 07/02/2025 9:24 AM [employer] Generalized abdominal pain GLUCOSE - POINT OF CARE Routine 07/02/2025 8:12 AM [employer] XR CHEST 1VW Routine 07/02/2025 6:14 AM [employer] Generalized abdominal pain LACTIC ACID WHOLE BLOOD STAT 07/02/2025 5:51 AM [employer] Generalized abdominal pain BLOOD GASES ART + COOX PANEL Routine 07/02/2025 5:51 AM [employer] Generalized abdominal pain GLUCOSE - POINT OF CARE Routine 07/02/2025 4:48 AM [employer] VANCOMYCIN LEVEL RANDOM Routine 07/02/2025 1:59 AM [employer] BLOOD TYPE VERIFICATION STAT 07/02/2025 12:49 AM [employer] HEMOGLOBIN A1C FABY 07/02/2025 12:32 AM [employer] Generalized abdominal pain MRSA PCR STAT 07/02/2025 12:31 AM [employer] Generalized abdominal pain URINALYSIS REFLEX TO MICROSCOPIC NO CULTURE STAT 07/02/2025 12:31 AM [employer] Generalized abdominal pain LACTIC ACID WHOLE BLOOD STAT 07/02/2025 12:30 AM [employer] Generalized abdominal pain CALCIUM IONIZED WHOLE BLOOD STAT 07/02/2025 12:30 AM [employer] Generalized abdominal pain NT-PRO BNP STAT 07/02/2025 12:30 AM [employer] Generalized abdominal pain FIBRINOGEN ACTIVITY STAT 07/02/2025 12:30 AM [employer] Generalized abdominal pain PTT STAT 07/02/2025 12:30 AM [employer] Generalized abdominal pain PT-INR STAT 07/02/2025 12:30 AM [employer] Generalized abdominal pain CBC W/O DIFFERENTIAL STAT 07/02/2025 12:30 AM [employer] Generalized abdominal pain BASIC METABOLIC PANEL (CALCIUM TOTAL) STAT 07/02/2025 12:30 AM [employer] Generalized abdominal pain TRIGLYCERIDES BLOOD FABY 07/02/2025 12:30 AM [employer] Generalized abdominal pain PHOSPHORUS BLOOD STAT 07/02/2025 12:30 AM [employer] Generalized abdominal pain MAGNESIUM BLOOD STAT 07/02/2025 12:30 AM [employer] Generalized abdominal pain BLOOD GASES ART + COOX PANEL STAT 07/02/2025 12:30 AM [employer] Generalized abdominal pain VANCOMYCIN LEVEL TROUGH Timed 07/02/2025 12:30 AM [employer] Generalized abdominal pain TSH FABY 07/02/2025 12:30 AM [employer] Generalized abdominal pain XR ABDOMEN KUB Routine 07/02/2025 12:02 AM [employer] Generalized abdominal pain XR CHEST 1VW PORTABLE STAT 07/02/2025 12:02 AM [employer] Generalized abdominal pain CULTURE FUNGUS OTHER+FUNGUS SMEAR Routine 07/01/2025 11:50 PM [employer] Generalized abdominal pain SUSCEPTIBILITY FUNGUS/YEAST Routine 07/01/2025 11:50 PM [employer] Generalized abdominal pain CULTURE FLUID+GRAM STAIN Routine 07/01/2025 11:50 PM [employer] Generalized abdominal pain CULTURE ANAEROBE Routine 07/01/2025 11:50 PM [employer] Generalized abdominal pain PATHOLOGY TISSUE STAT 07/01/2025 11:11 PM [employer] Trauma BLOOD GAS+COOX+LYTES+METAB ARTERIAL POCT Routine 07/01/2025 10:36 PM [employer] BLOOD GAS+COOX+LYTES+METAB ARTERIAL POCT Routine 07/01/2025 9:18 PM [employer] BLOOD GAS+COOX+LYTES+METAB ARTERIAL POCT Routine 07/01/2025 9:18 PM [employer] PREPARE RBC LEUKOREDUCED UNIT STAT 07/01/2025 8:11 PM [employer] PREPARE PLATELET PHERESIS UNIT(S) STAT 07/01/2025 8:11 PM [employer] PREPARE FFP UNIT(S) STAT 07/01/2025 8 :11 PM [employer] TYPE + SCREEN PANEL STAT 07/01/2025 8 :11 PM [employer] VT EXPLORATORY OF ABDOMEN 07/01/2025 8:08 PM [employer] Trauma Special Needs 07/01 @ 1928 CW GLUCOSE - POINT OF CARE Routine 07/01/2025 7:58 PM [employer] TEG 6 GLOBAL HEMOSTASIS W/ LYSIS STAT 07/01/2025 7:18 PM [employer] TEG 6S PLATELET MAPPING STAT 07/01/2025 7:18 PM [employer] LACTIC ACID BLOOD REFLEX TO REPEAT STAT 07/01/2025 7:18 PM [employer] PROLACTIN STAT 07/01/2025 7:18 PM [employer] PT-INR STAT 07/01/2025 7:18 PM [employer] DIFFERENTIAL MANUAL STAT 07/01/2025 7 :18 PM [employer] CBC W AUTO DIFFERENTIAL STAT 07/01/2025 7:18 PM [employer] COMPREHENSIVE METABOLIC PANEL STAT 07/01/2025 7:18 PM [employer] HEPATIC FUNCTION PANEL STAT 07/01/2025 7:18 PM [employer] Generalized abdominal pain documented in this encounter Results * (ABNORMAL) GLUCOSE - POINT OF CARE (07/18/2025 3:27 AM [employer]) Glucose WB/POC 106(H) 70 - 99 mg/dL 07/18/2025 3:28 AM [employer] [facility] Specimen Type Arterial/C apillary 07/18/2025 3:28 AM [employer] [facility] Blood BLOOD SPECIMEN / Unknown 07/18/2025 3:27 AM [employer] 07/18/2025 3:28 AM [employer]ER [facility] DO LAB - POINT OF CARE ORDERABLES Final Result [address] [address], [facility] [phone] * (ABNORMAL) GLUCOSE - POINT OF CARE (07/17/2025 11:11 PM [employer]) Glucose WB/POC 126(H) 70 - 99 mg/dL 07/17/2025 11:12 PM [employer] [facility] Specimen Type Arterial/C apillary 07/17/2025 11:12 PM [employer] [facility] Blood BLOOD SPECIMEN / Unknown 07/17/2025 11:11 PM [employer] 07/17/2025 11:11 PM [employer]ER [facility] DO LAB - POINT OF CARE ORDERABLES Final Result [address] [address], [place] [phone] * (ABNORMAL) GLUCOSE - POINT OF CARE (07/17/2025 7:44 PM [employer]) Glucose WB/POC 154(H) 70 - 99 mg/dL 07/17/2025 7:45 PM [employer] [facility] Specimen Type Arterial/C apillary 07/17/2025 7:45 PM [employer] [facility] Blood BLOOD SPECIMEN / Unknown 07/17/2025 7:44 PM [employer] 07/17/2025 7:45 PM [employer] [facility] DO LAB - POINT OF CARE ORDERABLES Final Result [address] [address], [place] [phone] * (ABNORMAL) GLUCOSE - POINT OF CARE (07/17/2025 4:59 PM [employer]) Glucose WB/POC 147(H) 70 - 99 mg/dL 07/17/2025 5:03 PM [employer] [facility] Specimen Type Arterial/C apillary 07/17/2025 5:03 PM [employer] [facility] Blood BLOOD SPECIMEN / Unknown 07/17/2025 4:59 PM [employer] 07/17/2025 5:03 PM [employer] [facility] DO LAB - POINT OF CARE ORDERABLES Final Result [address] [address], [place] [phone] * (ABNORMAL) GLUCOSE - POINT OF CARE (07/17/2025 12:24 PM [employer]) Glucose WB/POC 143(H) 70 - 99 mg/dL 07/17/2025 12:32 PM [employer] [facility] Specimen Type Arterial/C apillary 07/17/2025 12:32 PM [employer] [facility] Blood BLOOD SPECIMEN / Unknown 07/17/2025 12:24 PM [employer] 07/17/2025 12:32 PM [employer] [facility] DO LAB - POINT OF CARE ORDERABLES Final Result Performing Organization Address City/[facility]/ZIP Co de Phone Number [address] [address], [place] [phone] * (ABNORMAL) GLUCOSE - POINT OF CARE (07/17/2025 7:49 AM [employer]) Glucose WB/POC 108(H) 70 - 99 mg/dL 07/17/2025 7:54 AM [employer] [facility] Specimen Type Arterial/C apillary 07/17/2025 7:54 AM [employer] [facility] Blood BLOOD SPECIMEN / Unknown 07/17/2025 7:49 AM [employer] 07/17/2025 7:54 AM [employer] [facility] DO LAB - POINT OF CARE ORDERABLES Final Result Performing Organization Address [facility]/ZIP Co de Phone Number [address] [address], [place] [phone] * (ABNORMAL) GLUCOSE - POINT OF CARE (07/17/2025 4:20 AM [employer]) Glucose WB/POC 110(H) 70 - 99 mg/dL 07/17/2025 4:25 AM [employer] [facility] Specimen Type Arterial/C apillary 07/17/2025 4:25 AM [employer] [facility] Blood BLOOD SPECIMEN / Unknown 07/17/2025 4:20 AM [employer] 07/17/2025 4:25 AM [employer] [facility] DO LAB - POINT OF CARE ORDERABLES Final Result Performing Organization Address City/[facility]/ZIP Co de Phone Number [address] [address], [place] [phone] * (ABNORMAL) GLUCOSE - POINT OF CARE (07/17/2025 12:25 AM [employer]) Glucose WB/POC 123(H) 70 - 99 mg/dL 07/17/2025 12:29 AM [facility] Specimen Type Arterial/C apillary 07/17/2025 12:29 AM [facility] Blood BLOOD SPECIMEN / Unknown 07/17/2025 12:25 AM [employer] 07/17/2025 12:29 AM [employer] [facility] DO LAB - POINT OF CARE ORDERABLES Final Result [address] [address], [place] [phone] * (ABNORMAL) GLUCOSE - POINT OF CARE (07/16/2025 9:19 PM [employer]) Glucose WB/POC 130(H) 70 - 99 mg/dL 07/16/2025 9:23 PM [facility] Specimen Type Arterial/C apillary 07/16/2025 9:23 PM [facility] Blood BLOOD SPECIMEN / Unknown 07/16/2025 9:19 PM [employer] 07/16/2025 9:23 PM [employer] [facility] DO LAB - POINT OF CARE ORDERABLES Final Result [address] [address], [place] [phone] * (ABNORMAL) GLUCOSE - POINT OF CARE (07/16/2025 3:56 PM [employer]) Glucose WB/POC 122(H) 70 - 99 mg/dL 07/16/2025 4:01 PM [facility] Specimen Type Arterial/C apillary 07/16/2025 4:01 PM [facility] Blood BLOOD SPECIMEN / Unknown 07/16/2025 3:56 PM [employer] 07/16/2025 4:01 PM [employer] [facility] DO LAB - POINT OF CARE ORDERABLES Final Result [address] [address], [place] [phone] * (ABNORMAL) GLUCOSE - POINT OF CARE (07/16/2025 11:24 AM [employer]) Glucose WB/POC 132(H) 70 - 99 mg/dL 07/16/2025 11:29 AM [employer] [facility] Specimen Type Arterial/C apillary 07/16/2025 11:29 AM [employer] [facility] Blood BLOOD SPECIMEN / Unknown 07/16/2025 11:24 AM [employer] 07/16/2025 11:29 AM [employer] [facility] DO LAB - POINT OF CARE ORDERABLES Final Result [address] [address], [place] [phone] * (ABNORMAL) GLUCOSE - POINT OF CARE (07/16/2025 8:59 AM [employer]) Glucose WB/POC 143(H) 70 - 99 mg/dL 07/16/2025 9:04 AM [employer] [facility] Specimen Type Arterial/C apillary 07/16/2025 9:04 AM [employer] [facility] Blood BLOOD SPECIMEN / Unknown 07/16/2025 8:59 AM [employer] 07/16/2025 9:04 AM [employer]ER [facility] DO LAB - POINT OF CARE ORDERABLES Final Result [address] [address], [place] [phone] * PHOSPHORUS BLOOD (07/16/2025 5:45 AM [employer]) Phosphorus 2.8 2.8 - 5.1 mg/dL 07/16/2025 8:22 AM [facility] Blood BLOOD SPECIMEN / Unknown Lab Venipuncture / Unknown 07/16/2025 5:45 AM [employer] 07/16/2025 8:06 AM [employer] [facility] DO LAB - CHEMISTRY ORDERABLES Fin al Result Performing Organization Address City/[facility]/ZIP Co de Phone Number [address] [address], [facility] [phone] * MAGNESIUM BLOOD (07/16/2025 5:45 AM E[employer]) Magnesium 1.8 1.6 - 2.6 mg/dL 07/16/2025 8:22 AM [facility] Blood BLOOD SPECIMEN / Unknown Lab Venipuncture / Unknown 07/16/2025 5:45 AM [employer] 07/16/2025 8:06 AM [employer] [facility] DO LAB - CHEMISTRY ORDERABLES Fin al Result Performing Organization Address [facility] Co de Phone Number [address] [address], [facility] [phone] * (ABNORMAL) BASIC METABOLIC PANEL (CALCIUM TOTAL) (07/16/2025 5:45 AM [employer]) BUN 19 7 - 26 mg/dL 07/16/2025 8:22 AM [facility] Creatinine 0.80 0.71 - 1.16 mg/dL 07/16/2025 8:22 AM [facility] Sodium 139 136 - 145 mmol/L 07/16/2025 8:22 AM [facility] Potassium 4.0 3.5 - 4.5 mmol/L 07/16/2025 8:22 AM [facility] Chloride 100 98 - 107 mmol/L 07/16/2025 8:22 AM [facility] CO2 34(H) 22 - 29 mmol/L 07/16/2025 8:22 AM [facility] Glucose 105(H) 70 - 99 mg/dL 07/16/2025 8:22 AM [facility] Calcium 8.7 8.4 - 10.2 mg/dL 07/16/2025 8:22 AM [facility] Anion Gap 5(L) 6 - 16 07/16/2025 8:22 AM [facility] BUN/Creatinine Ratio 24(H) 7 - 23 07/16/2025 8:22 AM [facility] Osmolality Calculated 291 275 - 295 mOsm/kg 07/16/2025 8:22 AM [facility] eGFR by CKD-EPI >90 >=90 mL/min/1.7 3 m2 07/16/2025 8:22 AM [facility] Comment:Estimated Glomerular Filtration Rate (eGFR) calculated using the CKD-EPI Creatinine Equation (2020), per the [employer] and [place] [employer]ph[employer] recommendations. Blood BLOOD SPECIMEN / Unknown Lab Venipuncture / Unknown 07/16/2025 5:45 AM [employer] 07/16/2025 8:06 AM [employer] us [facility] DO LAB - CHEMISTRY ORDERABLES Fin al Result [facility] [address] [place] [address], [facility] [phone] * (ABNORMAL) CBC W AUTO DIFFERENTIAL (07/16/2025 5:45 AM [employer]) WBC 8.2 4.0 - 10.7 x10E9/L 07/16/2025 8:15 AM [facility] RBC Count 2.74(L) 4.30 - 5.80 x10E12/L 07/16/2025 8:15 AM [facility] Hemoglobin 9.0(L) 13.3 - 17.5 g/dL 07/16/2025 8:15 AM [facility] Hematocrit 28.6(L) 38.7 - 51.1 % 07/16/2025 8:15 AM [facility] MCV 104.4(H) 80.0 - 98.0 fL 07/16/2025 8:15 AM [facility] MCH 32.8 26.7 - 33.6 pg 07/16/2025 8:15 AM [facility] MCHC 31.5(L) 31.7 - 36.3 g/dL 07/16/2025 8:15 AM [facility] RDW-CV 15.9(H) 11.3 - 14.8 % 07/16/2025 8:15 AM [facility] Platelet Count 431(H) 150 - 420 x10E9/L 07/16/2025 8:15 AM [facility] MPV 11.5(H) 7.8 - 11.4 fL 07/16/2025 8:15 AM [facility] Neutrophil % 67.2 41.0 - 74.0 % 07/16/2025 8:15 AM [facility] Lymphocyte % 13.9(L) 17.0 - 47.0 % 07/16/2025 8:15 AM [facility] Monocyte % 12.3(H) 3.0 - 11.0 % 07/16/2025 8:15 AM [facility] Eosinophil % 5.1 0.0 - 7.0 % 07/16/2025 8:15 AM [facility] Basophil % 1.1 0.0 - 1.6 % 07/16/2025 8:15 AM [facility] Immature Granulocytes % 0.4 0.0 - 1.0 % 07/16/2025 8:15 AM [facility] Neutrophil Absolute 5.53 1.60 - 7.50 x10E9/L 07/16/2025 8:15 AM [facility] Lymphocyte Absolute 1.14 1.00 - 4.40 x10E9/L 07/16/2025 8:15 AM [facility] Monocyte Absolute 1.01(H) 0.15 - 1.00 x10E9/L 07/16/2025 8:15 AM [facility] Eosinophil Absolute 0.42 0.00 - 0.60 x10E9/L 07/16/2025 8:15 AM [facility] Basophil Absolute 0.09 0.00 - 0.13 x10E9/L 07/16/2025 8:15 AM [facility] Blood BLOOD SPECIMEN / Unknown Lab Venipuncture / Unknown 07/16/2025 5:45 AM [employer] 07/16/2025 8:06 AM [facility] DO LAB - HEMATOLOGY ORDERABLES Fi nal Result [address] [address], [place] [phone] * (ABNORMAL) GLUCOSE - POINT OF CARE (07/16/2025 5:09 AM [employer]) Glucose WB/POC 106(H) 70 - 99 mg/dL 07/16/2025 5:13 AM [facility] Specimen Type Arterial/C apillary 07/16/2025 5:13 AM [facility] Blood BLOOD SPECIMEN / Unknown 07/16/2025 5:09 AM [employer] 07/16/2025 5:13 AM [employer] us Rinku Marks MD LAB - POINT OF CARE ORDERAB LES Final Result Performing Organization Address City/[facility]/ZIP Co de Phone Number [address] [address], [place] [phone] * (ABNORMAL) GLUCOSE - POINT OF CARE (07/16/2025 12:05 AM [employer]) Glucose WB/POC 114(H) 70 - 99 mg/dL 07/16/2025 12:10 AM [facility] Specimen Type Arterial/C apillary 07/16/2025 12:10 AM [facility] Blood BLOOD SPECIMEN / Unknown 07/16/2025 12:05 AM [employer] 07/16/2025 12:10 AM [employer] us Rinku Marks MD LAB - POINT OF CARE ORDERAB LES Final Result [address] [address], [place] [phone] * (ABNORMAL) GLUCOSE - POINT OF CARE (07/15/2025 8:41 PM [employer]) Glucose WB/POC 147(H) 70 - 99 mg/dL 07/15/2025 8:49 PM [facility] Specimen Type Arterial/C apillary 07/15/2025 8:49 PM [employer] [facility] Blood BLOOD SPECIMEN / Unknown 07/15/2025 8:41 PM [employer] 07/15/2025 8:49 PM [employer] us Rinku Marks MD LAB - POINT OF CARE ORDERAB LES Final Result [address] [address], [place] [phone] * (ABNORMAL) GLUCOSE - POINT OF CARE (07/15/2025 5:44 PM [employer]) Glucose WB/POC 133(H) 70 - 99 mg/dL 07/15/2025 5:49 PM [employer] [facility] Specimen Type Arterial/C apillary 07/15/2025 5:49 PM [employer] [facility] Blood BLOOD SPECIMEN / Unknown 07/15/2025 5:44 PM [employer] 07/15/2025 5:49 PM [employer] us Rinku Marks MD LAB - POINT OF CARE ORDERAB LES Final Result [address] [address], [place] [phone] * (ABNORMAL) GLUCOSE - POINT OF CARE (07/15/2025 12:04 PM [employer]) Glucose WB/POC 165(H) 70 - 99 mg/dL 07/15/2025 12:09 PM [employer] [facility] Specimen Type Arterial/C apillary 07/15/2025 12:09 PM [employer] [facility] Blood BLOOD SPECIMEN / Unknown 07/15/2025 12:04 PM [employer] 07/15/2025 12:09 PM [employer] us Rinku Marks MD LAB - POINT OF CARE ORDERAB LES Final Result [address] [address], [place] [phone] * (ABNORMAL) GLUCOSE - POINT OF CARE (07/15/2025 7:55 AM [employer]) Glucose WB/POC 127(H) 70 - 99 mg/dL 07/15/2025 8:01 AM [facility] Specimen Type Arterial/C apillary 07/15/2025 8:01 AM [facility] Blood BLOOD SPECIMEN / Unknown 07/15/2025 7:55 AM [employer] 07/15/2025 8:01 AM [employer] us Rinku Marks MD LAB - POINT OF CARE ORDERAB LES Final Result Performing Organization Address City/[facility]/ZIP Co de Phone Number [address] [address], [facility] [phone] * (ABNORMAL) GLUCOSE - POINT OF CARE (07/15/2025 5:25 AM [employer]) Glucose WB/POC 125(H) 70 - 99 mg/dL 07/15/2025 5:29 AM [facility] Specimen Type Arterial/C apillary 07/15/2025 5:29 AM [facility] Blood BLOOD SPECIMEN / Unknown 07/15/2025 5:25 AM [employer] 07/15/2025 5:29 AM [employer] us Rinku Marks MD LAB - POINT OF CARE ORDERAB LES Final Result [address] [address] [address], [place] [phone] * (ABNORMAL) GLUCOSE - POINT OF CARE (07/15/2025 1:13 AM [employer]) Glucose WB/POC 143(H) 70 - 99 mg/dL 07/15/2025 1:18 AM [facility] Specimen Type Arterial/C apillary 07/15/2025 1:18 AM [facility] Blood BLOOD SPECIMEN / Unknown 07/15/2025 1:13 AM [employer] 07/15/2025 1:18 AM [employer] us Rinku Marks MD LAB - POINT OF CARE ORDERAB LES Final Result Performing Organization Address City/[facility]/ZIP Co de Phone Number [address] [address], [place] [phone] * (ABNORMAL) GLUCOSE - POINT OF CARE (07/14/2025 10:00 PM [employer]) Glucose WB/POC 157(H) 70 - 99 mg/dL 07/14/2025 10:05 PM [employer] [facility] Specimen Type Arterial/C apillary 07/14/2025 10:05 PM [employer] [facility] Blood BLOOD SPECIMEN / Unknown 07/14/2025 10:00 PM [employer] 07/14/2025 10:05 PM [employer] us Rinku Marks MD LAB - POINT OF CARE ORDERAB LES Final Result Performing Organization Address [facility]/ZIP Co de Phone Number [address] [address], [place] [phone] * (ABNORMAL) GLUCOSE - POINT OF CARE (07/14/2025 5:08 PM [employer]) Glucose WB/POC 115(H) 70 - 99 mg/dL 07/14/2025 5:09 PM [employer] [facility] Specimen Type Arterial/C apillary 07/14/2025 5:09 PM [employer] [facility] Blood BLOOD SPECIMEN / Unknown 07/14/2025 5:08 PM [employer] 07/14/2025 5:09 PM [employer] us Rinku Marks MD LAB - POINT OF CARE ORDERAB LES Final Result Performing Organization Address City/[facility]/ZIP Co de Phone Number [address] [address], [place] [phone] * (ABNORMAL) GLUCOSE - POINT OF CARE (07/14/2025 12:18 PM [employer]) Glucose WB/POC 107(H) 70 - 99 mg/dL 07/14/2025 12:28 PM [facility] Specimen Type Arterial/C apillary 07/14/2025 12:28 PM [facility] Blood BLOOD SPECIMEN / Unknown 07/14/2025 12:18 PM [employer] 07/14/2025 12:28 PM [employer] Rinku Marks MD LAB - POINT OF CARE ORDERAB LES Final Result Performing Organization Address City/[facility]/ZIP Co de Phone Number [address] [address], [place] [phone] * (ABNORMAL) GLUCOSE - POINT OF CARE (07/14/2025 8:07 AM [employer]) Glucose WB/POC 126(H) 70 - 99 mg/dL 07/14/2025 8:08 AM [facility] Specimen Type Arterial/C apillary 07/14/2025 8:08 AM [facility] Blood BLOOD SPECIMEN / Unknown 07/14/2025 8:07 AM [employer] 07/14/2025 8:08 AM [employer] Rinku Marks MD LAB - POINT OF CARE ORDERAB LES Final Result Performing Organization Address [facility]/ZIP Co de Phone Number [address] [address], [place] [phone] * PTT (07/14/2025 6:02 AM [employer]) APTT 29.0 23.0 - 38.4 Seconds 07/14/2025 8:11 AM [facility] Comment:Suggested therapeuti c range for full dose I.V. unfractionated heparin therapy for venous thromboembolism is 71 to 109 seconds. Blood BLOOD SPECIMEN / Unknown Lab Venipuncture / Unknown 07/14/2025 6:02 AM [employer] 07/14/2025 7:42 AM [employer] Kamaljit Nicole MD LAB - COAGULATION ORDERABLES F inal Result Performing Organization Address [facility] Co de Phone Number [phone] [place] [address], [facility] [phone] * (ABNORMAL) PT-INR (07/14/2025 6:02 AM [employer]) Pathologist [facility] PT 33.1(H) 12.1 - 14.8 Seconds 07/14/2025 8:11 AM [facility] INR 3.3 See Comment 07/14/2025 8:11 AM [facility] Comment:The suggested therap eutic range for standard coumadin (warfarin) therapy is an INR of 2.0-3.0. For high-risk patients (Mechanical Mitral Valve Prosthesis, etc.), the suggested prophylactic therapeutic range is an INR of 2.5-3.5. Blood BLOOD SPECIMEN / Unknown Lab Venipuncture / Unknown 07/14/2025 6:02 AM [employer] 07/14/2025 7:42 AM [facility] Kamaljit Nicole MD LAB - COAGULATION ORDERABLES F inal Result Performing Organization Address [facility] Co de Phone Number [address] [address], [facility] [phone] * (ABNORMAL) CBC W/O DIFFERENTIAL (07/14/2025 6:02 AM [employer]) [facility] WBC 9.5 4.0 - 10.7 x10E9/L 07/14/2025 8:53 AM [facility] RBC Count 2.77(L) 4.30 - 5.80 x10E12/L 07/14/2025 8:53 AM [facility] Hemoglobin 9.1(L) 13.3 - 17.5 g/dL 07/14/2025 8:53 AM [facility] Hematocrit 28.7(L) 38.7 - 51.1 % 07/14/2025 8:53 AM [facility] MCV 103.6(H) 80.0 - 98.0 fL 07/14/2025 8:53 AM [facility] MCH 32.9 26.7 - 33.6 pg 07/14/2025 8:53 AM [facility] MCHC 31.7 31.7 - 36.3 g/dL 07/14/2025 8:53 AM [facility] RDW-CV 15.9(H) 11.3 - 14.8 % 07/14/2025 8:53 AM [facility] Platelet Count 418 150 - 420 x10E9/L 07/14/2025 8:53 AM [facility] MPV 11.6(H) 7.8 - 11.4 fL 07/14/2025 8:53 AM [facility] Blood BLOOD SPECIMEN / Unknown Lab Venipuncture / Unknown 07/14/2025 6:02 AM [employer] 07/14/2025 7:42 AM [employer] us Kamaljit Nicole MD LAB - HEMATOLOGY ORDERABLES Fi nal Result [address] [address], [place] [phone] * (ABNORMAL) GLUCOSE - POINT OF CARE (07/14/2025 5:24 AM [employer]) Glucose WB/POC 121(H) 70 - 99 mg/dL 07/14/2025 5:25 AM [facility] Specimen Type Arterial/C apillary 07/14/2025 5:25 AM [facility] Blood BLOOD SPECIMEN / Unknown 07/14/2025 5:24 AM [employer] 07/14/2025 5:25 AM [employer] us Rinku Marks MD LAB - POINT OF CARE ORDERAB LES Final Result [address] [address], [place] [phone] * (ABNORMAL) GLUCOSE - POINT OF CARE (07/14/2025 12:10 AM [employer]) Glucose WB/POC 253(H) 70 - 99 mg/dL 07/14/2025 12:11 AM [facility] Specimen Type Arterial/C apillary 07/14/2025 12:11 AM [employer] [facility] Blood BLOOD SPECIMEN / Unknown 07/14/2025 12:10 AM [employer] 07/14/2025 12:11 AM [employer] us Rinku Marks MD LAB - POINT OF CARE ORDERAB LES Final Result [address] [address], [place] [phone] * (ABNORMAL) GLUCOSE - POINT OF CARE (07/13/2025 8:21 PM [employer]) Glucose WB/POC 146(H) 70 - 99 mg/dL 07/13/2025 8:22 PM [facility] Specimen Type Arterial/C apillary 07/13/2025 8:22 PM [employer] [facility] Blood BLOOD SPECIMEN / Unknown 07/13/2025 8:21 PM [employer] 07/13/2025 8:21 PM [employer] us Rinku Marks MD LAB - POINT OF CARE ORDERAB LES Final Result [address] [address], [place] [phone] * (ABNORMAL) GLUCOSE - POINT OF CARE (07/13/2025 6:29 PM [employer]) Glucose WB/POC 149(H) 70 - 99 mg/dL 07/13/2025 6:30 PM [employer] [facility] Specimen Type Arterial/C apillary 07/13/2025 6:30 PM [employer] [facility] Blood BLOOD SPECIMEN / Unknown 07/13/2025 6:29 PM [employer] 07/13/2025 6:30 PM [employer] us Rinku Marks MD LAB - POINT OF CARE ORDERAB LES Final Result [address] [address], [place] [phone] * (ABNORMAL) GLUCOSE - POINT OF CARE (07/13/2025 12:41 PM [employer]) Glucose WB/POC 122(H) 70 - 99 mg/dL 07/13/2025 12:45 PM [employer] [facility] Specimen Type Arterial/C apillary 07/13/2025 12:45 PM [employer] [facility] Blood BLOOD SPECIMEN / Unknown 07/13/2025 12:41 PM [employer] 07/13/2025 12:45 PM [employer] us Rinku Marks MD LAB - POINT OF CARE ORDERAB LES Final Result [address] [address], [facility] [phone] * (ABNORMAL) GLUCOSE - POINT OF CARE (07/13/2025 8:47 AM [employer]) Glucose WB/POC 114(H) 70 - 99 mg/dL 07/13/2025 8:48 AM [employer] [facility] Specimen Type Arterial/C apillary 07/13/2025 8:48 AM [facility] Blood BLOOD SPECIMEN / Unknown 07/13/2025 8:47 AM [employer] 07/13/2025 8:48 AM [employer] us Rinku Marks MD LAB - POINT OF CARE ORDERAB LES Final Result [address] [address], [place] [phone] * (ABNORMAL) GLUCOSE - POINT OF CARE (07/13/2025 6:23 AM [employer]) Glucose WB/POC 122(H) 70 - 99 mg/dL 07/13/2025 6:30 AM [employer] [facility] Specimen Type Arterial/C apillary 07/13/2025 6:30 AM [employer] [facility] Blood BLOOD SPECIMEN / Unknown 07/13/2025 6:23 AM [employer] 07/13/2025 6:30 AM [employer] Provider Unknown LAB - POINT OF CARE ORDERABLES Final Result Performing Organization Address [facility] Co de Phone Number [address] [address], [facility] [phone] * (ABNORMAL) PTT (07/13/2025 5:50 AM [employer]) APTT 43.1(H) 23.0 - 38.4 Seconds 07/13/2025 7:27 AM [facility] Comment:Suggested therapeuti c range for full dose I.V. unfractionated heparin therapy for venous thromboembolism is 71 to 109 seconds. Blood BLOOD SPECIMEN / Unknown Lab Venipuncture / Unknown 07/13/2025 5:50 AM [employer] 07/13/2025 6:44 AM [employer] Result [facility] Kamaljit Nicole MD LAB - COAGULATION ORDERABLES F inal Result Performing Organization Address [facility] de Phone Number [address] [address], [facility] [phone] * (ABNORMAL) PT-INR (07/13/2025 5:50 AM [employer]) PT 31.2(H) 12.1 - 14.8 Seconds 07/13/2025 7:27 AM [facility] INR 3.0 See Comment 07/13/2025 7:27 AM [facility] Comment:The suggested therap eutic range for standard coumadin (warfarin) therapy is an INR of 2.0-3.0. For high-risk patients (Mechanical Mitral Valve Prosthesis, etc.), the suggested prophylactic therapeutic range is an INR of 2.5-3.5. Blood BLOOD SPECIMEN / Unknown Lab Venipuncture / Unknown 07/13/2025 5:50 AM [employer] 07/13/2025 6:44 AM [employer] Kamaljit Nicole MD LAB - COAGULATION ORDERABLES F inal Result Performing Organization Address [facility] Co de Phone Number [address] [address], [facility] [phone] * PHOSPHORUS BLOOD (07/13/2025 4:01 AM [employer]) Pathologist [facility] Phosphorus 3.1 2.8 - 5.1 mg/dL 07/13/2025 4:37 AM [facility] Blood BLOOD SPECIMEN / Unknown Lab Venipuncture / Unknown 07/13/2025 4:01 AM [employer] 07/13/2025 4:08 AM [employer] Kamaljit Nicole MD LAB - CHEMISTRY ORDERABLES Fin al Result Performing Organization Address [facility]/ZIP Co de Phone Number [address] [address], [facility] [phone] * MAGNESIUM BLOOD (07/13/2025 4:01 AM [employer]) Pathologist [facility] Magnesium 2.0 1.6 - 2.6 mg/dL 07/13/2025 4:37 AM [facility] Blood BLOOD SPECIMEN / Unknown Lab Venipuncture / Unknown 07/13/2025 4:01 AM [employer] 07/13/2025 4:08 AM [employer] Kamaljit Nicole MD LAB - CHEMISTRY ORDERABLES Fin al Result Performing Organization Address [facility]/ZIP Co de Phone Number [address] [address], [facility] [phone] * (ABNORMAL) CBC W/O DIFFERENTIAL (07/13/2025 4:01 AM [employer]) Pathologist [facility] WBC 9.7 4.0 - 10.7 x10E9/L 07/13/2025 4:25 AM [facility] RBC Count 2.97(L) 4.30 - 5.80 x10E12/L 07/13/2025 4:25 AM [facility] Hemoglobin 9.5(L) 13.3 - 17.5 g/dL 07/13/2025 4:25 AM [facility] Hematocrit 32.2(L) 38.7 - 51.1 % 07/13/2025 4:25 AM [facility] MCV 108.4(H) 80.0 - 98.0 fL 07/13/2025 4:25 AM [facility] MCH 32.0 26.7 - 33.6 pg 07/13/2025 4:25 AM [facility] MCHC 29.5(L) 31.7 - 36.3 g/dL 07/13/2025 4:25 AM [facility] RDW-CV 16.2(H) 11.3 - 14.8 % 07/13/2025 4:25 AM [facility] Platelet Count 397 150 - 420 x10E9/L 07/13/2025 4:25 AM [facility] MPV 11.1 7.8 - 11.4 fL 07/13/2025 4:25 AM [facility] Blood BLOOD SPECIMEN / Unknown Lab Venipuncture / Unknown 07/13/2025 4:01 AM [employer] 07/13/2025 4:08 AM [facility] us Kamaljit Nicole MD LAB - HEMATOLOGY ORDERABLES Fi nal Result [address] [address] [phone] * (ABNORMAL) BASIC METABOLIC PANEL (CALCIUM TOTAL) (07/13/2025 4:01 AM [employer]) BUN 17 7 - 26 mg/dL 07/13/2025 4:37 AM [facility] Creatinine 0.86 0.71 - 1.16 mg/dL 07/13/2025 4:37 AM [facility] Sodium 142 136 - 145 mmol/L 07/13/2025 4:37 AM [facility] Potassium 4.0 3.5 - 4.5 mmol/L 07/13/2025 4:37 AM [facility] Chloride 107 98 - 107 mmol/L 07/13/2025 4:37 AM [facility] CO2 30(H) 22 - 29 mmol/L 07/13/2025 4:37 AM [facility] Glucose 105(H) 70 - 99 mg/dL 07/13/2025 4:37 AM [facility] Calcium 8.4 8.4 - 10.2 mg/dL 07/13/2025 4:37 AM [facility] Anion Gap 5(L) 6 - 16 07/13/2025 4:37 AM [facility] BUN/Creatinine Ratio 20 7 - 23 07/13/2025 4:37 AM [facility] Osmolality Calculated 296(H) 275 - 295 mOsm/kg 07/13/2025 4:37 AM [facility] eGFR by CKD-EPI >90 >=90 mL/min/1.7 3 m2 07/13/2025 4:37 AM [facility] Comment:Estimated Glomerular Filtration Rate (eGFR) calculated using the CKD-EPI Creatinine Equation (2020), per the [employer] and [place] [employer]ph[employer] recommendations. Blood BLOOD SPECIMEN / Unknown Lab Venipuncture / Unknown 07/13/2025 4:01 AM [employer] 07/13/2025 4:08 AM [employer] us Kamaljit Nicole MD LAB - CHEMISTRY ORDERABLES Fin al Result [address] [address], [facility] [phone] * (ABNORMAL) GLUCOSE - POINT OF CARE (07/13/2025 12:09 AM [employer]) Glucose WB/POC 129(H) 70 - 99 mg/dL 07/13/2025 12:12 AM [facility] Specimen Type Arterial/C apillary 07/13/2025 12:12 AM [facility] Blood BLOOD SPECIMEN / Unknown 07/13/2025 12:09 AM [employer] 07/13/2025 12:12 AM [employer] us Provider Unknown LAB - POINT OF CARE ORDERABLES Final Result [address] [address], [place] [phone] * (ABNORMAL) GLUCOSE - POINT OF CARE (07/12/2025 8:26 PM [employer]) Glucose WB/POC 183(H) 70 - 99 mg/dL 07/12/2025 8:26 PM [employer] [facility] Specimen Type Arterial/C apillary 07/12/2025 8:26 PM [employer] [facility] Blood BLOOD SPECIMEN / Unknown 07/12/2025 8:26 PM [employer] 07/12/2025 8:26 PM [employer] us Provider Unknown LAB - POINT OF CARE ORDERABLES Final Result [address] [address], [place] [phone] * (ABNORMAL) GLUCOSE - POINT OF CARE (07/12/2025 5:05 PM [employer]) Glucose WB/POC 140(H) 70 - 99 mg/dL 07/12/2025 5:09 PM [facility] Specimen Type Arterial/C apillary 07/12/2025 5:09 PM [facility] Blood BLOOD SPECIMEN / Unknown 07/12/2025 5:05 PM [employer] 07/12/2025 5:09 PM [employer] us Provider Unknown LAB - POINT OF CARE ORDERABLES Final Result [address] [address], [place] [phone] * (ABNORMAL) GLUCOSE - POINT OF CARE (07/12/2025 11:03 AM [employer]) Glucose WB/POC 152(H) 70 - 99 mg/dL 07/12/2025 11:05 AM [facility] Specimen Type Arterial/C apillary 07/12/2025 11:05 AM [facility] Blood BLOOD SPECIMEN / Unknown 07/12/2025 11:03 AM [employer] 07/12/2025 11:05 AM [employer] us Provider Unknown LAB - POINT OF CARE ORDERABLES Final Result Performing Organization Address City/[facility]/ZIP Co de Phone Number [address] [address], [facility] [phone] * (ABNORMAL) GLUCOSE - POINT OF CARE (07/12/2025 8:03 AM [employer]) Glucose WB/POC 115(H) 70 - 99 mg/dL 07/12/2025 8:07 AM [facility] Specimen Type Arterial/C apillary 07/12/2025 8:07 AM [facility] Blood BLOOD SPECIMEN / Unknown 07/12/2025 8:03 AM [employer] 07/12/2025 8:07 AM [employer] Erinn Murillo MD LAB - POINT OF CARE ORDERABLE S Final Result Performing Organization Address [facility] Co de Phone Number [address] [address], [facility] [phone] * (ABNORMAL) PTT (07/12/2025 6:14 AM [employer]) APTT 45.0(H) 23.0 - 38.4 Seconds 07/12/2025 7:23 AM [facility] Comment:Suggested therapeuti c range for full dose I.V. unfractionated heparin therapy for venous thromboembolism is 71 to 109 seconds. Blood BLOOD SPECIMEN / Unknown Lab Venipuncture / Unknown 07/12/2025 6:14 AM [employer] 07/12/2025 6:55 AM [employer] Kamaljit Nicole MD LAB - COAGULATION ORDERABLES F inal Result Performing Organization Address City/[facility]/ZIP Co de Phone Number [address] [address], [facility] [phone] * (ABNORMAL) PT-INR (07/12/2025 6:14 AM [employer]) PT 30.7(H) 12.1 - 14.8 Seconds 07/12/2025 7:23 AM [facility] INR 3.0 See Comment 07/12/2025 7:23 AM [facility] Comment:The suggested therap eutic range for standard coumadin (warfarin) therapy is an INR of 2.0-3.0. For high-risk patients (Mechanical Mitral Valve Prosthesis, etc.), the suggested prophylactic therapeutic range is an INR of 2.5-3.5. Blood BLOOD SPECIMEN / Unknown Lab Venipuncture / Unknown 07/12/2025 6:14 AM [employer] 07/12/2025 6:55 AM [employer] Result [facility] us Kamaljit Nicole MD LAB - COAGULATION ORDERABLES F inal Result Performing Organization Address [facility] de Phone Number [address] [address], [facility] [phone] * PHOSPHORUS BLOOD (07/12/2025 6:14 AM [employer]) Phosphorus 2.8 2.8 - 5.1 mg/dL 07/12/2025 7:28 AM [facility] Blood BLOOD SPECIMEN / Unknown Lab Venipuncture / Unknown 07/12/2025 6:14 AM [employer] 07/12/2025 6:57 AM [employer] us Kamaljit Nicole MD LAB - CHEMISTRY ORDERABLES Fin al Result Performing Organization Address [facility] Co de Phone Number [address] [address], [place] [phone] * MAGNESIUM BLOOD (07/12/2025 6:14 AM [employer]) Magnesium 1.9 1.6 - 2.6 mg/dL 07/12/2025 7:28 AM [facility] Blood BLOOD SPECIMEN / Unknown Lab Venipuncture / Unknown 07/12/2025 6:14 AM [employer] 07/12/2025 6:57 AM [employer] us Kamaljit Nicole MD LAB - CHEMISTRY ORDERABLES Fin al Result Performing Organization Address [facility] Co de Phone Number [facility] [address] [place] [address], [facility] [phone] * (ABNORMAL) CBC W/O DIFFERENTIAL (07/12/2025 6:14 AM [facility]) WBC 9.8 4.0 - 10.7 x10E9/L 07/12/2025 7:06 AM [facility] RBC Count 3.13(L) 4.30 - 5.80 x10E12/L 07/12/2025 7:06 AM [facility] Hemoglobin 10.2(L) 13.3 - 17.5 g/dL 07/12/2025 7:06 AM [facility] Hematocrit 32.5(L) 38.7 - 51.1 % 07/12/2025 7:06 AM [facility] MCV 103.8(H) 80.0 - 98.0 fL 07/12/2025 7:06 AM [facility] MCH 32.6 26.7 - 33.6 pg 07/12/2025 7:06 AM [facility] MCHC 31.4(L) 31.7 - 36.3 g/dL 07/12/2025 7:06 AM [facility] RDW-CV 16.2(H) 11.3 - 14.8 % 07/12/2025 7:06 AM [facility] Platelet Count 375 150 - 420 x10E9/L 07/12/2025 7:06 AM [facility] MPV 11.9(H) 7.8 - 11.4 fL 07/12/2025 7:06 AM [facility] Blood BLOOD SPECIMEN / Unknown Lab Venipuncture / Unknown 07/12/2025 6:14 AM [employer] 07/12/2025 6:57 AM [facility] us Kamaljit Nicole MD LAB - HEMATOLOGY ORDERABLES Fi nal Result [address] [id number], [facility] [phone] * (ABNORMAL) BASIC METABOLIC PANEL (CALCIUM TOTAL) (07/12/2025 6:14 AM [facility]) BUN 15 7 - 26 mg/dL 07/12/2025 7:28 AM [facility] Creatinine 0.80 0.71 - 1.16 mg/dL 07/12/2025 7:28 AM [facility] Sodium 142 136 - 145 mmol/L 07/12/2025 7:28 AM [facility] Potassium 4.0 3.5 - 4.5 mmol/L 07/12/2025 7:28 AM [facility] Chloride 105 98 - 107 mmol/L 07/12/2025 7:28 AM [facility] CO2 32(H) 22 - 29 mmol/L 07/12/2025 7:28 AM [facility] Glucose 100(H) 70 - 99 mg/dL 07/12/2025 7:28 AM [facility] Calcium 8.7 8.4 - 10.2 mg/dL 07/12/2025 7:28 AM [facility] Anion Gap 5(L) 6 - 16 07/12/2025 7:28 AM [facility] BUN/Creatinine Ratio 19 7 - 23 07/12/2025 7:28 AM [facility] Osmolality Calculated 295 275 - 295 mOsm/kg 07/12/2025 7:28 AM [facility] eGFR by CKD-EPI >90 >=90 mL/min/1.7 3 m2 07/12/2025 7:28 AM [facility] Comment:Estimated Glomerular Filtration Rate (eGFR) calculated using the CKD-EPI Creatinine Equation (2020), per the [employer] and [place] [employer] recommendations. Blood BLOOD SPECIMEN / Unknown Lab Venipuncture / Unknown 07/12/2025 6:14 AM [employer] 07/12/2025 6:57 AM [facility] us Kamaljit Nicole MD LAB - CHEMISTRY ORDERABLES Fin al Result [facility] [address] [place] [address], [facility] [phone] * (ABNORMAL) HEPATIC FUNCTION PANEL (07/12/2025 6:14 AM [employer]) [facility] Protein Total 6.6 6.0 - 8.3 g/dL 7:28 AM [facility] Albumin 2.1(L) 3.4 - 5.0 g/dL 07/12/2025 7:28 AM [facility] Bilirubin Total 1.3(H) 0.2 - 1.2 mg/dL 06/30 7:28 AM [facility] Bilirubin Conjugated 0.9(H) 0.1 - 0.5 mg/dL 07/12/2025 7:28 AM [facility] Bilirubin Unconjugated 0.4 Unconjugated Bilirubin is a calculated value: Reference ranges have not been established. mg/dL 07/12/2025 7:28 AM [facility] Alkaline Phosphatase 197(H) 40 - 150 U/L 07/12/2025 7:28 AM [facility] ALT 57(H) 5 - 55 U/L 07/12/2025 7:28 AM [facility] AST 76(H) 5 - 34 U/L 07/12/2025 7:28 AM [facility] Albumin/Globulin Ratio 0.5(L) 1.1 - 2.3 07/12/2025 7:28 AM [facility] Blood BLOOD SPECIMEN / Unknown Lab Venipuncture / Unknown 07/12/2025 6:14 AM [employer] 07/12/2025 6:57 AM [facility] us Erinn Murillo MD LAB - CHEMISTRY ORDERABLES Fi nal Result [facility] [address] [place] [address], [facility] [phone] * (ABNORMAL) GLUCOSE - POINT OF CARE (07/12/2025 5:07 AM [facility]) [facility] Glucose WB/POC 117(H) 70 - 99 mg/dL 07/12/2025 5:07 AM [facility] Specimen Type Arterial/C apillary 07/12/2025 5:07 AM [facility] Blood BLOOD SPECIMEN / Unknown 07/12/2025 5:07 AM [employer] 07/12/2025 5:07 AM [employer] us Erinn Murillo MD LAB - POINT OF CARE ORDERABLE S Final Result [address] [address], [place] [phone] * (ABNORMAL) GLUCOSE - POINT OF CARE (07/12/2025 12:42 AM [employer]) Glucose WB/POC 127(H) 70 - 99 mg/dL 07/12/2025 12:44 AM [employer] [facility] Specimen Type Arterial/C apillary 07/12/2025 12:44 AM [employer] [facility] Blood BLOOD SPECIMEN / Unknown 07/12/2025 12:42 AM [employer] 07/12/2025 12:44 AM [employer] us Erinn Murillo MD LAB - POINT OF CARE ORDERABLE S Final Result Performing Organization Address City/[facility]/ZIP Co de Phone Number [address] [address], [place] [phone] * (ABNORMAL) GLUCOSE - POINT OF CARE (07/11/2025 9:36 PM [employer]) Glucose WB/POC 122(H) 70 - 99 mg/dL 07/11/2025 9:37 PM [employer] [facility] Specimen Type Arterial/C apillary 07/11/2025 9:37 PM [employer] [facility] Blood BLOOD SPECIMEN / Unknown 07/11/2025 9:36 PM [employer] 07/11/2025 9:37 PM [employer] us Erinn Murillo MD LAB - POINT OF CARE ORDERABLE S Final Result [address] [address], [place] [phone] * (ABNORMAL) GLUCOSE - POINT OF CARE (07/11/2025 4:30 PM [employer]) Glucose WB/POC 144(H) 70 - 99 mg/dL 07/11/2025 4:35 PM [employer] [facility] Specimen Type Arterial/C apillary 07/11/2025 4:35 PM [facility] Blood BLOOD SPECIMEN / Unknown 07/11/2025 4:30 PM [employer] 07/11/2025 4:35 PM [employer] us Erinn Murillo MD LAB - POINT OF CARE ORDERABLE S Final Result Performing Organization Address City/[facility]/ZIP Co de Phone Number [address] [address], [place] [phone] * (ABNORMAL) GLUCOSE - POINT OF CARE (07/11/2025 11:25 AM [employer]) Glucose WB/POC 126(H) 70 - 99 mg/dL 07/11/2025 11:29 AM [facility] Specimen Type Arterial/C apillary 07/11/2025 11:29 AM [facility] Blood BLOOD SPECIMEN / Unknown 07/11/2025 11:25 AM [employer] 07/11/2025 11:29 AM [employer] us Erinn Murillo MD LAB - POINT OF CARE ORDERABLE S Final Result Performing Organization Address [facility]/ZIP Co de Phone Number [address] [address], [place] [phone] * (ABNORMAL) GLUCOSE - POINT OF CARE (07/11/2025 7:54 AM [employer]) Glucose WB/POC 107(H) 70 - 99 mg/dL 07/11/2025 7:59 AM [employer] [facility] Specimen Type Arterial/C apillary 07/11/2025 7:59 AM [employer] [facility] Blood BLOOD SPECIMEN / Unknown 07/11/2025 7:54 AM [employer] 07/11/2025 7:59 AM [employer] us Erinn Murillo MD LAB - POINT OF CARE ORDERABLE S Final Result Performing Organization Address [facility] Co de Phone Number [address] [address], [facility] [phone] * (ABNORMAL) PTT (07/11/2025 5:19 AM [employer]) APTT 42.9(H) 23.0 - 38.4 Seconds 07/11/2025 6:25 AM [facility] Comment:Suggested therapeuti c range for full dose I.V. unfractionated heparin therapy for venous thromboembolism is 71 to 109 seconds. Blood BLOOD SPECIMEN / Unknown Lab Venipuncture / Unknown 07/11/2025 5:19 AM [employer] 07/11/2025 5:53 AM [employer] Kamaljit Nicole MD LAB - COAGULATION ORDERABLES F inal Result Performing Organization Address [facility] de Phone Number [address] [address], [facility] [phone] * (ABNORMAL) PT-INR (07/11/2025 5:19 AM [employer]) PT 31.0(H) 12.1 - 14.8 Seconds 07/11/2025 6:25 AM [employer] [facility] INR 3.0 See Comment 07/11/2025 6:25 AM [employer] [facility] Comment:The suggested therap eutic range for standard coumadin (warfarin) therapy is an INR of 2.0-3.0. For high-risk patients (Mechanical Mitral Valve Prosthesis, etc.), the suggested prophylactic therapeutic range is an INR of 2.5-3.5. Blood BLOOD SPECIMEN / Unknown Lab Venipuncture / Unknown 07/11/2025 5:19 AM [employer] 07/11/2025 5:53 AM [employer] Kamaljit Nicole MD LAB - COAGULATION ORDERABLES F inal Result Performing Organization Address [facility] Co de Phone Number [address] [address], [facility] [phone] * PHOSPHORUS BLOOD (07/11/2025 5:19 AM [employer]) Pathologist [facility] Phosphorus 2.8 2.8 - 5.1 mg/dL 07/11/2025 6:22 AM [facility] Blood BLOOD SPECIMEN / Unknown Lab Venipuncture / Unknown 07/11/2025 5:19 AM [employer] 07/11/2025 5:53 AM [employer] Kamaljit Nicole MD LAB - CHEMISTRY ORDERABLES Fin al Result Performing Organization Address City/[facility]/ZIP Co de Phone Number [address] [address], [place] [phone] * MAGNESIUM BLOOD (07/11/2025 5:19 AM [employer]) [facility] Magnesium 2.0 1.6 - 2.6 mg/dL 07/11/2025 6:22 AM [facility] Blood BLOOD SPECIMEN / Unknown Lab Venipuncture / Unknown 07/11/2025 5:19 AM [employer] 07/11/2025 5:53 AM [employer] Kamaljit Nicole MD LAB - CHEMISTRY ORDERABLES Fin al Result Performing Organization Address [facility]/ZIP Co de Phone Number [address] [address], [place] [phone] * (ABNORMAL) CBC W/O DIFFERENTIAL (07/11/2025 5:19 AM [employer]) [facility] WBC 10.6 4.0 - 10.7 x10E9/L 07/11/2025 5:59 AM [facility] RBC Count 2.80(L) 4.30 - 5.80 x10E12/L 07/11/2025 5:59 AM [facility] Hemoglobin 9.0(L) 13.3 - 17.5 g/dL 07/11/2025 5:59 AM [facility] Hematocrit 29.2(L) 38.7 - 51.1 % 07/11/2025 5:59 AM [facility] MCV 104.3(H) 80.0 - 98.0 fL 07/11/2025 5:59 AM [facility] MCH 32.1 26.7 - 33.6 pg 07/11/2025 5:59 AM [facility] MCHC 30.8(L) 31.7 - 36.3 g/dL 07/11/2025 5:59 AM [facility] RDW-CV 15.9(H) 11.3 - 14.8 % 07/11/2025 5:59 AM [facility] Platelet Count 351 150 - 420 x10E9/L 07/11/2025 5:59 AM [facility] MPV 11.3 7.8 - 11.4 fL 07/11/2025 5:59 AM [facility] Blood BLOOD SPECIMEN / Unknown Lab Venipuncture / Unknown 07/11/2025 5:19 AM [employer] 07/11/2025 5:53 AM [facility] Kamaljit Nicole MD LAB - HEMATOLOGY ORDERABLES Fi nal Result [facility] [address] [place] [address], [facility] [phone] * (ABNORMAL) BASIC METABOLIC PANEL (CALCIUM TOTAL) (07/11/2025 5:19 AM [facility]) BUN 18 7 - 26 mg/dL 07/11/2025 6:22 AM [facility] Creatinine 0.85 0.71 - 1.16 mg/dL 07/11/2025 6:22 AM [facility] Sodium 143 136 - 145 mmol/L 07/11/2025 6:22 AM [facility] Potassium 4.2 3.5 - 4.5 mmol/L 07/11/2025 6:22 AM [facility] Chloride 108(H) 98 - 107 mmol/L 07/11/2025 6:22 AM [facility] CO2 30(H) 22 - 29 mmol/L 07/11/2025 6:22 AM [facility] Glucose 97 70 - 99 mg/dL 07/11/2025 6:22 AM [employer] [facility] Calcium 8.4 8.4 - 10.2 mg/dL 07/11/2025 6:22 AM [facility] Anion Gap 5(L) 6 - 16 07/11/2025 6:22 AM [facility] BUN/Creatinine Ratio 21 7 - 23 07/11/2025 6:22 AM [facility] Osmolality Calculated 298(H) 275 - 295 mOsm/kg 07/11/2025 6:22 AM [facility] eGFR by CKD-EPI >90 >=90 mL/min/1.7 3 m2 07/11/2025 6:22 AM [facility] Comment:Estimated Glomerular Filtration Rate (eGFR) calculated using the CKD-EPI Creatinine Equation (2020), per the National Kidney Foundation and [place] [employer]ph[employer] recommendations. Blood BLOOD SPECIMEN / Unknown Lab Venipuncture / Unknown 07/11/2025 5:19 AM [employer] 07/11/2025 5:53 AM [employer] us Kamaljit Nicole MD LAB - CHEMISTRY ORDERABLES Fin al Result [address] [address], [place] [phone] * (ABNORMAL) GLUCOSE - POINT OF CARE (07/11/2025 4:28 AM [employer]) Glucose WB/POC 130(H) 70 - 99 mg/dL 07/11/2025 4:29 AM [facility] Specimen Type Arterial/C apillary 07/11/2025 4:29 AM [facility] Blood BLOOD SPECIMEN / Unknown 07/11/2025 4:28 AM [employer] 07/11/2025 4:29 AM [employer] us Rinku Marks MD LAB - POINT OF CARE ORDERAB LES Final Result Performing Organization Address [facility]/ZIP Co de Phone Number [address] [address], [place] [phone] * (ABNORMAL) GLUCOSE - POINT OF CARE (07/10/2025 11:44 PM [employer]) Glucose WB/POC 137(H) 70 - 99 mg/dL 07/10/2025 11:45 PM [employer] [facility] Specimen Type Arterial/C apillary 07/10/2025 11:45 PM [employer] [facility] Blood BLOOD SPECIMEN / Unknown 07/10/2025 11:44 PM [employer] 07/10/2025 11:45 PM [employer] us Rinku Marks MD LAB - POINT OF CARE ORDERAB LES Final Result [address] [address], [place] [phone] * (ABNORMAL) GLUCOSE - POINT OF CARE (07/10/2025 7:51 PM [employer]) Glucose WB/POC 225(H) 70 - 99 mg/dL 07/10/2025 7:52 PM [facility] Specimen Type Arterial/C apillary 07/10/2025 7:52 PM [employer] [facility] Blood BLOOD SPECIMEN / Unknown 07/10/2025 7:51 PM [employer] 07/10/2025 7:52 PM [employer] us Rinku Marks MD LAB - POINT OF CARE ORDERAB LES Final Result Performing Organization Address City/[facility]/ZIP Co de Phone Number [address] [address], [place] [phone] * (ABNORMAL) GLUCOSE - POINT OF CARE (07/10/2025 4:06 PM [employer]) Glucose WB/POC 152(H) 70 - 99 mg/dL 07/10/2025 4:09 PM [employer] [facility] Specimen Type Arterial/C apillary 07/10/2025 4:09 PM [employer] [facility] Blood BLOOD SPECIMEN / Unknown 07/10/2025 4:06 PM [employer] 07/10/2025 4:09 PM [employer] us Rinku Marks MD LAB - POINT OF CARE ORDERAB LES Final Result Performing Organization Address City/[facility]/ZIP Co de Phone Number [address] [address], [place] [phone] * (ABNORMAL) GLUCOSE - POINT OF CARE (07/10/2025 11:18 AM [employer]) Glucose WB/POC 165(H) 70 - 99 mg/dL 07/10/2025 11:23 AM [facility] Specimen Type Arterial/C apillary 07/10/2025 11:23 AM [facility] Blood BLOOD SPECIMEN / Unknown 07/10/2025 11:18 AM [employer] 07/10/2025 11:23 AM [employer] us Rinku Marks MD LAB - POINT OF CARE ORDERAB LES Final Result Performing Organization Address [facility]/ZIP Co de Phone Number [address] [address], [facility] [phone] * (ABNORMAL) GLUCOSE - POINT OF CARE (07/10/2025 7:31 AM [employer]) Glucose WB/POC 126(H) 70 - 99 mg/dL 07/10/2025 7:36 AM [facility] Specimen Type Arterial/C apillary 07/10/2025 7:36 AM [facility] Blood BLOOD SPECIMEN / Unknown 07/10/2025 7:31 AM [employer] 07/10/2025 7:36 AM [employer] us Rinku Marks MD LAB - POINT OF CARE ORDERAB LES Final Result Performing Organization Address City/[facility]/ZIP Co de Phone Number [address] [address], [place] [phone] * (ABNORMAL) PTT (07/10/2025 4:56 AM [employer]) APTT 40.2(H) 23.0 - 38.4 Seconds 07/10/2025 6:30 AM [facility] Comment:Suggested therapeuti c range for full dose I.V. unfractionated heparin therapy for venous thromboembolism is 71 to 109 seconds. Blood BLOOD SPECIMEN / Unknown Lab Venipuncture / Unknown 07/10/2025 4:56 AM [employer] 07/10/2025 5:42 AM [employer] Result [facility] us Kamaljit Nicole MD LAB - COAGULATION ORDERABLES F inal Result Performing Organization Address [facility] de Phone Number [address] [address], [facility] [phone] * (ABNORMAL) PT-INR (07/10/2025 4:56 AM [employer]) PT 28.1(H) 12.1 - 14.8 Seconds 07/10/2025 6:30 AM [employer] [facility] INR 2.7 See Comment 07/10/2025 6:30 AM [facility] Comment:The suggested therap eutic range for standard coumadin (warfarin) therapy is an INR of 2.0-3.0. For high-risk patients (Mechanical Mitral Valve Prosthesis, etc.), the suggested prophylactic therapeutic range is an INR of 2.5-3.5. Blood BLOOD SPECIMEN / Unknown Lab Venipuncture / Unknown 07/10/2025 4:56 AM [employer] 07/10/2025 5:42 AM [employer] Result [facility] us Kamaljit Nicole MD LAB - COAGULATION ORDERABLES F inal Result Performing Organization Address [facility] Co de Phone Number [address] [address], [facility] [phone] * (ABNORMAL) PHOSPHORUS BLOOD (07/10/2025 4:56 AM [employer]) Phosphorus 2.4(L) 2.8 - 5.1 mg/dL 07/10/2025 6:32 AM [facility] Blood BLOOD SPECIMEN / Unknown Lab Venipuncture / Unknown 07/10/2025 4:56 AM [employer] 07/10/2025 5:42 AM [employer] Result [facility] us Kamaljit Nicole MD LAB - CHEMISTRY ORDERABLES Fin al Result [address] [address], [facility] [phone] * MAGNESIUM BLOOD (07/10/2025 4:56 AM [employer]) Pathologist [facility] Magnesium 2.0 1.6 - 2.6 mg/dL 07/10/2025 6:31 AM [facility] Blood BLOOD SPECIMEN / Unknown Lab Venipuncture / Unknown 07/10/2025 4:56 AM [employer] 07/10/2025 5:42 AM [employer] Kamaljit Nicole MD LAB - CHEMISTRY ORDERABLES Fin al Result Performing Organization Address City/[facility]/ZIP Co de Phone Number [address] [address], [facility] [phone] * (ABNORMAL) CBC W/O DIFFERENTIAL (07/10/2025 4:56 AM [employer]) Pathologist [facility] WBC 13.3(H) 4.0 - 10.7 x10E9/L 07/10/2025 5:46 AM [facility] RBC Count 2.84(L) 4.30 - 5.80 x10E12/L 07/10/2025 5:46 AM [facility] Hemoglobin 9.3(L) 13.3 - 17.5 g/dL 07/10/2025 5:46 AM [facility] Hematocrit 29.9(L) 38.7 - 51.1 % 07/10/2025 5:46 AM [facility] MCV 105.3(H) 80.0 - 98.0 fL 07/10/2025 5:46 AM [facility] MCH 32.7 26.7 - 33.6 pg 07/10/2025 5:46 AM [facility] MCHC 31.1(L) 31.7 - 36.3 g/dL 07/10/2025 5:46 AM [facility] RDW-CV 15.9(H) 11.3 - 14.8 % 07/10/2025 5:46 AM [facility] Platelet Count 359 150 - 420 x10E9/L 07/10/2025 5:46 AM [facility] MPV 11.4 7.8 - 11.4 fL 07/10/2025 5:46 AM [facility] Blood BLOOD SPECIMEN / Unknown Lab Venipuncture / Unknown 07/10/2025 4:56 AM [employer] 07/10/2025 5:41 AM [facility] us Kamaljit Nicole MD LAB - HEMATOLOGY ORDERABLES Fi nal Result [facility] [address] [place] [address], [facility] [phone] * (ABNORMAL) BASIC METABOLIC PANEL (CALCIUM TOTAL) (07/10/2025 4:56 AM [facility]) BUN 22 7 - 26 mg/dL 07/10/2025 6:31 AM [facility] Creatinine 0.82 0.71 - 1.16 mg/dL 07/10/2025 6:31 AM [facility] Sodium 144 136 - 145 mmol/L 07/10/2025 6:31 AM [facility] Potassium 4.3 3.5 - 4.5 mmol/L 07/10/2025 6:31 AM [facility] Chloride 111(H) 98 - 107 mmol/L 07/10/2025 6:31 AM [facility] CO2 26 22 - 29 mmol/L 07/10/2025 6:31 AM [facility] Glucose 104(H) 70 - 99 mg/dL 07/10/2025 6:31 AM [facility] Calcium 8.5 8.4 - 10.2 mg/dL 07/10/2025 6:31 AM [facility] Anion Gap 7 6 - 16 07/10/2025 6:31 AM [facility] BUN/Creatinine Ratio 27(H) 7 - 23 07/10/2025 6:31 AM [facility] Osmolality Calculated 302(H) 275 - 295 mOsm/kg 07/10/2025 6:31 AM [facility] eGFR by CKD-EPI >90 >=90 mL/min/1.7 3 m2 07/10/2025 6:31 AM [facility] Comment:Estimated Glomerular Filtration Rate (eGFR) calculated using the CKD-EPI Creatinine Equation (2020), per the National Kidney Foundation and [place] [employer] Neph[employer] recommendations. Blood BLOOD SPECIMEN / Unknown Lab Venipuncture / Unknown 07/10/2025 4:56 AM [employer] 07/10/2025 5:42 AM [employer] Kamaljit Nicole MD LAB - CHEMISTRY ORDERABLES Fin al Result Performing Organization Address City/[facility]/ZIP Co de Phone Number [address] [address], [place] [phone] * (ABNORMAL) TRIGLYCERIDES BLOOD (07/10/2025 4:56 AM [employer]) Triglycerides 159(H) <150 mg/dL 07/10/2025 6:31 AM [facility] Comment: ATP III Classification of Triglycerides: <150 mg/dL: Normal 150 - 199 mg/dL: Borderline High 200 - 400 mg/dL: High >500 mg/dL: Very High Blood BLOOD SPECIMEN / Unknown Lab Venipuncture / Unknown 07/10/2025 4:56 AM [employer] 07/10/2025 5:42 AM [employer] Kamaljit Nicole MD LAB - CHEMISTRY ORDERABLES Fin al Result Performing Organization Address City/[facility]/ZIP Co de Phone Number [address] [address], [place] [phone] * (ABNORMAL) GLUCOSE - POINT OF CARE (07/10/2025 3:32 AM [employer]) Glucose WB/POC 119(H) 70 - 99 mg/dL 07/10/2025 3:33 AM [facility] Specimen Type Arterial/C apillary 07/10/2025 3:33 AM [facility] Blood BLOOD SPECIMEN / Unknown 07/10/2025 3:32 AM [employer] 07/10/2025 3:33 AM [employer] us Rinku Marks MD LAB - POINT OF CARE ORDERAB LES Final Result [address] [address], [place] [phone] * (ABNORMAL) GLUCOSE - POINT OF CARE (07/10/2025 12:31 AM [employer]) Glucose WB/POC 123(H) 70 - 99 mg/dL 07/10/2025 12:33 AM [employer] [facility] Specimen Type Arterial/C apillary 07/10/2025 12:33 AM [employer] [facility] Blood BLOOD SPECIMEN / Unknown 07/10/2025 12:31 AM [employer] 07/10/2025 12:33 AM [employer] us Rinku Marks MD LAB - POINT OF CARE ORDERAB LES Final Result Performing Organization Address [facility]/ZIP Co de Phone Number [address] [address], [place] [phone] * (ABNORMAL) GLUCOSE - POINT OF CARE (07/09/2025 7:46 PM [employer]) Glucose WB/POC 164(H) 70 - 99 mg/dL 07/09/2025 7:47 PM [employer] [facility] Specimen Type Arterial/C apillary 07/09/2025 7:47 PM [employer] [facility] Blood BLOOD SPECIMEN / Unknown 07/09/2025 7:46 PM [employer] 07/09/2025 7:47 PM [employer] us Rinku Marks MD LAB - POINT OF CARE ORDERAB LES Final Result Performing Organization Address City/[facility]/ZIP Co de Phone Number [address] [address], [place] [phone] * (ABNORMAL) GLUCOSE - POINT OF CARE (07/09/2025 3:47 PM [employer]) Glucose WB/POC 152(H) 70 - 99 mg/dL 07/09/2025 5:22 PM [employer] [facility] Specimen Type Arterial/C apillary 07/09/2025 5:22 PM [employer] [facility] Blood BLOOD SPECIMEN / Unknown 07/09/2025 3:47 PM [employer] 07/09/2025 5:22 PM [employer] us Rinku Marks MD LAB - POINT OF CARE ORDERAB LES Final Result [address] [address], [place] [phone] * (ABNORMAL) GLUCOSE - POINT OF CARE (07/09/2025 12:56 PM [employer]) Glucose WB/POC 156(H) 70 - 99 mg/dL 07/09/2025 12:56 PM [employer] [facility] Specimen Type Arterial/C apillary 07/09/2025 12:56 PM [employer] [facility] Blood BLOOD SPECIMEN / Unknown 07/09/2025 12:56 PM [employer] 07/09/2025 12:56 PM [employer] us Rinku Marks MD LAB - POINT OF CARE ORDERAB LES Final Result Performing Organization Address City/[facility]/ZIP Co de Phone Number [address] [address], [place] [phone] * (ABNORMAL) GLUCOSE - POINT OF CARE (07/09/2025 11:52 AM [employer]) Glucose WB/POC 151(H) 70 - 99 mg/dL 07/09/2025 11:55 AM [employer] [facility] Specimen Type Arterial/C apillary 07/09/2025 11:55 AM [employer] [facility] Blood BLOOD SPECIMEN / Unknown 07/09/2025 11:52 AM [employer] 07/09/2025 11:55 AM [employer] us Rinku Marks MD LAB - POINT OF CARE ORDERAB LES Final Result [address] [address], [facility] [phone] * (ABNORMAL) PTT (07/09/2025 10:37 AM [employer]) Pathologist [facility] APTT 86.0(H) 23.0 - 38.4 Seconds 07/09/2025 11:17 AM [facility] Comment:Suggested therapeuti c range for full dose I.V. unfractionated heparin therapy for venous thromboembolism is 71 to 109 seconds. Blood BLOOD SPECIMEN / Unknown Venipuncture / Unknown 07/09/2025 10:37 AM [employer] 07/09/2025 10:51 AM [employer] us Kamaljit Nicole MD LAB - COAGULATION ORDERABLES F inal Result Performing Organization Address City/[facility]/ZIP Co de Phone Number [address] [address], [facility] [phone] * (ABNORMAL) GLUCOSE - POINT OF CARE (07/09/2025 8:37 AM [employer]) [facility] Glucose WB/POC 207(H) 70 - 99 mg/dL 07/09/2025 8:42 AM [facility] Specimen Type Arterial/C apillary 07/09/2025 8:42 AM [facility] Blood BLOOD SPECIMEN / Unknown 07/09/2025 8:37 AM [employer] 07/09/2025 8:42 AM [employer] us Rinku Marks MD LAB - POINT OF CARE ORDERAB LES Final Result [address] [address], [place] [phone] * (ABNORMAL) BASIC METABOLIC PANEL (CALCIUM TOTAL) (07/09/2025 6:12 AM [employer]) [facility] BUN 25 7 - 26 mg/dL 07/09/2025 6:49 AM [facility] Creatinine 0.81 0.71 - 1.16 mg/dL 07/09/2025 6:49 AM [facility] Sodium 142 136 - 145 mmol/L 07/09/2025 6:49 AM [facility] Potassium 4.0 3.5 - 4.5 mmol/L 07/09/2025 6:49 AM [facility] Chloride 111(H) 98 - 107 mmol/L 07/09/2025 6:49 AM [facility] CO2 27 22 - 29 mmol/L 07/09/2025 6:49 AM [facility] Glucose 138(H) 70 - 99 mg/dL 07/09/2025 6:49 AM [facility] Calcium 8.4 8.4 - 10.2 mg/dL 07/09/2025 6:49 AM [facility] Anion Gap 4(L) 6 - 16 07/09/2025 6:49 AM [facility] BUN/Creatinine Ratio 31(H) 7 - 23 07/09/2025 6:49 AM [facility] Osmolality Calculated 301(H) 275 - 295 mOsm/kg 07/09/2025 6:49 AM [facility] eGFR by CKD-EPI >90 >=90 mL/min/1.7 3 m2 07/09/2025 6:49 AM [facility] Comment:Estimated Glomerular Filtration Rate (eGFR) calculated using the CKD-EPI Creatinine Equation (2020), per the National Kidney Foundation and [place] [employer]ph[employer] recommendations. Blood BLOOD SPECIMEN / Unknown Lab Venipuncture / Unknown 07/09/2025 6:12 AM [employer] 07/09/2025 6:23 AM [facility] us Kamaljit Nicole MD LAB - CHEMISTRY ORDERABLES Fin al Result [facility] [address] [place] [address], [facility] [phone] * (ABNORMAL) GLUCOSE - POINT OF CARE (07/09/2025 3:42 AM [facility]) Glucose WB/POC 139(H) 70 - 99 mg/dL 07/09/2025 4:03 AM [facility] Specimen Type Arterial/C apillary 07/09/2025 4:03 AM [facility] Blood BLOOD SPECIMEN / Unknown 07/09/2025 3:42 AM [employer] 07/09/2025 4:03 AM [employer] us Kamaljit Nicole MD LAB - POINT OF CARE ORDERABLES Final Result Performing Organization Address [facility] de Phone Number [address] [address], [facility] [phone] * (ABNORMAL) PT-INR (07/09/2025 3:30 AM [employer]) PT 17.8(H) 12.1 - 14.8 Seconds 07/09/2025 4:04 AM [facility] INR 1.5 See Comment 07/09/2025 4:04 AM [facility] Comment:The suggested therap eutic range for standard coumadin (warfarin) therapy is an INR of 2.0-3.0. For high-risk patients (Mechanical Mitral Valve Prosthesis, etc.), the suggested prophylactic therapeutic range is an INR of 2.5-3.5. Blood BLOOD SPECIMEN / Unknown Venipuncture / Unknown 07/09/2025 3:30 AM [employer] 07/09/2025 3:35 AM [employer] us Kamaljit Nicole MD LAB - COAGULATION ORDERABLES F inal Result Performing Organization Address [facility] de Phone Number [address] [address], [facility] [phone] * (ABNORMAL) PHOSPHORUS BLOOD (07/09/2025 3:30 AM [employer]) Phosphorus 7.8(H) 2.8 - 5.1 mg/dL 07/09/2025 5:17 AM [employer] [facility] Blood BLOOD SPECIMEN / Unknown Venipuncture / Unknown 07/09/2025 3:30 AM [employer] 07/09/2025 3:36 AM [employer] us Kamaljit Nicole MD LAB - CHEMISTRY ORDERABLES Fin al Result Performing Organization Address City/[facility] Co de Phone Number [address] [address], [facility] [phone] * MAGNESIUM BLOOD (07/09/2025 3:30 AM [employer]) Pathologist [facility] Magnesium 2.4 1.6 - 2.6 mg/dL 07/09/2025 4:54 AM [facility] Blood BLOOD SPECIMEN / Unknown Venipuncture / Unknown 07/09/2025 3:30 AM [employer] 07/09/2025 3:36 AM [employer] Kamaljit Nicole MD LAB - CHEMISTRY ORDERABLES Fin al Result [address] [address], [facility] [phone] * (ABNORMAL) CBC W/O DIFFERENTIAL (07/09/2025 3:30 AM [employer]) [facility] WBC 12.8(H) 4.0 - 10.7 x10E9/L 07/09/2025 4:40 AM [facility] RBC Count 2.65(L) 4.30 - 5.80 x10E12/L 07/09/2025 4:40 AM [facility] Hemoglobin 8.9(L) 13.3 - 17.5 g/dL 07/09/2025 4:40 AM [facility] Hematocrit 29.7(L) 38.7 - 51.1 % 07/09/2025 4:40 AM [facility] MCV 110.6(H) 80.0 - 98.0 fL 07/09/2025 4:40 AM [facility] MCH 33.6 26.7 - 33.6 pg 07/09/2025 4:40 AM [facility] MCHC 30.0(L) 31.7 - 36.3 g/dL 07/09/2025 4:40 AM [facility] RDW-CV 15.9(H) 11.3 - 14.8 % 07/09/2025 4:40 AM [facility] Platelet Count 288 150 - 420 x10E9/L 07/09/2025 4:40 AM [facility] MPV 11.8(H) 7.8 - 11.4 fL 07/09/2025 4:40 AM [facility] NRBC 0.2(H) <=0.0 /100 WBC 07/09/2025 4:40 AM [facility] Blood BLOOD SPECIMEN / Unknown Venipuncture / Unknown 07/09/2025 3:30 AM [employer] 07/09/2025 3:38 AM [employer] Kamaljit Nicole MD LAB - HEMATOLOGY ORDERABLES Fi nal Result [address] [address], [facility] [phone] * (ABNORMAL) PTT (07/09/2025 3:30 AM [employer]) APTT 78.5(H) 23.0 - 38.4 Seconds 07/09/2025 4:04 AM [facility] Comment:Suggested therapeuti c range for full dose I.V. unfractionated heparin therapy for venous thromboembolism is 71 to 109 seconds. Blood BLOOD SPECIMEN / Unknown Venipuncture / Unknown 07/09/2025 3:30 AM [employer] 07/09/2025 3:35 AM [employer] us Kamaljit Nicole MD LAB - COAGULATION ORDERABLES F inal Result Performing Organization Address City/[facility]/ZIP Co de Phone Number [address] [address], [place] [phone] * (ABNORMAL) GLUCOSE - POINT OF CARE (07/09/2025 12:00 AM [employer]) Glucose WB/POC 163(H) 70 - 99 mg/dL 07/09/2025 12:05 AM [facility] Specimen Type Arterial/C apillary 07/09/2025 12:05 AM [facility] Blood BLOOD SPECIMEN / Unknown 07/09/2025 12:00 AM [employer] 07/09/2025 12:05 AM [employer] Kamaljit Nicole MD LAB - POINT OF CARE ORDERABLES Final Result Performing Organization Address [facility]/ZIP Co de Phone Number [address] [address], [facility] [phone] * (ABNORMAL) PTT (07/08/2025 7:44 PM [employer]) APTT 68.8(H) 23.0 - 38.4 Seconds 07/08/2025 8:29 PM [employer] [facility] Comment:Suggested therapeuti c range for full dose I.V. unfractionated heparin therapy for venous thromboembolism is 71 to 109 seconds. Blood BLOOD SPECIMEN / Unknown Venipuncture / Unknown 07/08/2025 7:44 PM [employer] 07/08/2025 7:59 PM [employer] Kamaljit Nicole MD LAB - COAGULATION ORDERABLES F inal Result Performing Organization Address [facility] Co de Phone Number [address] [address], [place] [phone] * (ABNORMAL) GLUCOSE - POINT OF CARE (07/08/2025 7:43 PM [employer]) Glucose WB/POC 169(H) 70 - 99 mg/dL 07/08/2025 7:44 PM [employer] [facility] Specimen Type Arterial/C apillary 07/08/2025 7:44 PM [employer] [facility] Blood BLOOD SPECIMEN / Unknown 07/08/2025 7:43 PM [employer] 07/08/2025 7:44 PM [employer] us Kamaljit Nicole MD LAB - POINT OF CARE ORDERABLES Final Result Performing Organization Address [facility]/ZIP Co de Phone Number [address] [address], [place] [phone] * (ABNORMAL) GLUCOSE - POINT OF CARE (07/08/2025 4:43 PM [employer]) Glucose WB/POC 156(H) 70 - 99 mg/dL 07/08/2025 4:44 PM [employer] [facility] Specimen Type Arterial/C apillary 07/08/2025 4:44 PM [facility] Blood BLOOD SPECIMEN / Unknown 07/08/2025 4:43 PM [employer] 07/08/2025 4:44 PM [employer] us Kamaljit Nicole MD LAB - POINT OF CARE ORDERABLES Final Result Performing Organization Address [facility]/ZIP Co de Phone Number [address] [address], [place] [phone] * (ABNORMAL) GLUCOSE - POINT OF CARE (07/08/2025 12:26 PM [employer]) Pathologist [facility] Glucose WB/POC 147(H) 70 - 99 mg/dL 07/08/2025 12:26 PM [facility] Specimen Type Arterial/C apillary 07/08/2025 12:26 PM [facility] Blood BLOOD SPECIMEN / Unknown 07/08/2025 12:26 PM [employer] 07/08/2025 12:26 PM [employer] us Kamaljit Nicole MD LAB - POINT OF CARE ORDERABLES Final Result Performing Organization Address [facility] Co de Phone Number [address] [address], [place] [phone] * (ABNORMAL) PTT (07/08/2025 11:39 AM [employer]) APTT 75.7(H) 23.0 - 38.4 Seconds 07/08/2025 12:54 PM [facility] Comment:Suggested therapeuti c range for full dose I.V. unfractionated heparin therapy for venous thromboembolism is 71 to 109 seconds. Blood BLOOD SPECIMEN / Unknown Lab Venipuncture / Unknown 07/08/2025 11:39 AM [employer] 07/08/2025 12:31 PM [employer] us Kamaljit Nicole MD LAB - COAGULATION ORDERABLES F inal Result Performing Organization Address [facility]/ZIP Co de Phone Number [address] [address], [place] [phone] * (ABNORMAL) GLUCOSE - POINT OF CARE (07/08/2025 7:52 AM [employer]) Glucose WB/POC 151(H) 70 - 99 mg/dL 07/08/2025 7:53 AM [facility] Specimen Type Arterial/C apillary 07/08/2025 7:53 AM [facility] Blood BLOOD SPECIMEN / Unknown 07/08/2025 7:52 AM [employer] 07/08/2025 7:53 AM [employer] Kamaljit Nicole MD LAB - POINT OF CARE ORDERABLES Final Result Performing Organization Address [facility]/ZIP Co de Phone Number [address] [address], [place] [phone] * (ABNORMAL) GLUCOSE - POINT OF CARE (07/08/2025 3:30 AM [employer]) Glucose WB/POC 126(H) 70 - 99 mg/dL 07/08/2025 3:31 AM [facility] Specimen Type Arterial/C apillary 07/08/2025 3:31 AM [facility] Blood BLOOD SPECIMEN / Unknown 07/08/2025 3:30 AM [employer] 07/08/2025 3:31 AM [employer] Kamaljit Nicole MD LAB - POINT OF CARE ORDERABLES Final Result Performing Organization Address [facility]/ZIP Co de Phone Number [address] [address], [place] [phone] * (ABNORMAL) PTT (07/08/2025 3:07 AM [employer]) APTT 67.9(H) 23.0 - 38.4 Seconds 07/08/2025 3:40 AM [facility] Comment:Suggested therapeuti c range for full dose I.V. unfractionated heparin therapy for venous thromboembolism is 71 to 109 seconds. Blood BLOOD SPECIMEN / Unknown Venipuncture / Unknown 07/08/2025 3:07 AM [employer] 07/08/2025 3:15 AM [employer] us Kamaljit Nicole MD LAB - COAGULATION ORDERABLES F inal Result Performing Organization Address [facility] de Phone Number [address] [address], [facility] [phone] * (ABNORMAL) PT-INR (07/08/2025 3:07 AM [employer]) PT 17.8(H) 12.1 - 14.8 Seconds 07/08/2025 3:40 AM [employer] [facility] INR 1.5 See Comment 07/08/2025 3:40 AM [employer] [facility] Comment:The suggested therap eutic range for standard coumadin (warfarin) therapy is an INR of 2.0-3.0. For high-risk patients (Mechanical Mitral Valve Prosthesis, etc.), the suggested prophylactic therapeutic range is an INR of 2.5-3.5. Blood BLOOD SPECIMEN / Unknown Venipuncture / Unknown 07/08/2025 3:07 AM [employer] 07/08/2025 3:15 AM [employer] Result [facility] us Kamaljit Nicole MD LAB - COAGULATION ORDERABLES F inal Result Performing Organization Address [facility] de Phone Number [address] [address], [facility] [phone] * (ABNORMAL) PHOSPHORUS BLOOD (07/08/2025 3:07 AM [employer]) Phosphorus 2.6(L) 2.8 - 5.1 mg/dL 07/08/2025 3:51 AM [employer] [facility] Blood BLOOD SPECIMEN / Unknown Venipuncture / Unknown 07/08/2025 3:07 AM [employer] 07/08/2025 3:19 AM [employer] Result [facility] us Kamaljit Nicole MD LAB - CHEMISTRY ORDERABLES Fin al Result [address] [address], [facility] [phone] * MAGNESIUM BLOOD (07/08/2025 3:07 AM [employer]) [facility] Magnesium 2.2 1.6 - 2.6 mg/dL 07/08/2025 3:51 AM [facility] Blood BLOOD SPECIMEN / Unknown Venipuncture / Unknown 07/08/2025 3:07 AM [employer] 07/08/2025 3:19 AM [employer] Kamaljit Nicole MD LAB - CHEMISTRY ORDERABLES Fin al Result [address] [address], [facility] [phone] * (ABNORMAL) CBC W/O DIFFERENTIAL (07/08/2025 3:07 AM [employer]) [facility] WBC 14.2(H) 4.0 - 10.7 x10E9/L 07/08/2025 3:32 AM [facility] RBC Count 2.78(L) 4.30 - 5.80 x10E12/L 07/08/2025 3:32 AM [facility] Hemoglobin 9.1(L) 13.3 - 17.5 g/dL 07/08/2025 3:32 AM [facility] Hematocrit 28.9(L) 38.7 - 51.1 % 07/08/2025 3:32 AM [facility] MCV 104.0(H) 80.0 - 98.0 fL 07/08/2025 3:32 AM [facility] MCH 32.7 26.7 - 33.6 pg 07/08/2025 3:32 AM [facility] MCHC 31.5(L) 31.7 - 36.3 g/dL 07/08/2025 3:32 AM [facility] RDW-CV 15.2(H) 11.3 - 14.8 % 07/08/2025 3:32 AM [facility] Platelet Count 284 150 - 420 x10E9/L 07/08/2025 3:32 AM [facility] MPV 11.3 7.8 - 11.4 fL 07/08/2025 3:32 AM [facility] Blood BLOOD SPECIMEN / Unknown Venipuncture / Unknown 07/08/2025 3:07 AM [employer] 07/08/2025 3:19 AM [employer] Kamaljit Nicole MD LAB - HEMATOLOGY ORDERABLES Fi nal Result [facility] [address] [place] [address], [facility] [phone] * (ABNORMAL) BASIC METABOLIC PANEL (CALCIUM TOTAL) (07/08/2025 3:07 AM [facility]) BUN 29(H) 7 - 26 mg/dL 07/08/2025 3:51 AM [facility] Creatinine 0.92 0.71 - 1.16 mg/dL 07/08/2025 3:51 AM [facility] Sodium 143 136 - 145 mmol/L 07/08/2025 3:51 AM [facility] Potassium 3.7 3.5 - 4.5 mmol/L 07/08/2025 3:51 AM [facility] Chloride 111(H) 98 - 107 mmol/L 07/08/2025 3:51 AM [facility] CO2 27 22 - 29 mmol/L 07/08/2025 3:51 AM [facility] Glucose 122(H) 70 - 99 mg/dL 07/08/2025 3:51 AM [facility] Calcium 8.1(L) 8.4 - 10.2 mg/dL 07/08/2025 3:51 AM [facility] Anion Gap 5(L) 6 - 16 07/08/2025 3:51 AM [facility] BUN/Creatinine Ratio 32(H) 7 - 23 07/08/2025 3:51 AM [facility] Osmolality Calculated 303(H) 275 - 295 mOsm/kg 07/08/2025 3:51 AM [facility] eGFR by CKD-EPI >90 >=90 mL/min/1.7 3 m2 07/08/2025 3:51 AM [employer] [facility] Comment:Estimated Glomerular Filtration Rate (eGFR) calculated using the CKD-EPI Creatinine Equation (2020), per the National Kidney Foundation and [place] [employer] Neph[employer] recommendations. Blood BLOOD SPECIMEN / Unknown Venipuncture / Unknown 07/08/2025 3:07 AM [employer] 07/08/2025 3:19 AM [employer] Kamaljit Nicoel MD LAB - CHEMISTRY ORDERABLES Fin al Result Performing Organization Address City/[facility]/ZIP Co de Phone Number [address] [address], [place] [phone] * VANCOMYCIN LEVEL RANDOM (07/08/2025 3:07 AM [employer]) Vancomycin Random 11.1 Therapeutic Ranges not established for random specimens ug/mL 07/08/2025 5:31 AM [employer] [facility] Blood BLOOD SPECIMEN / Unknown Venipuncture / Unknown 07/08/2025 3:07 AM [employer] 07/08/2025 3:15 AM [employer] Narrative [facility] - 07/08/2025 5:31 AM [employer] See institution protocol. us Kamaljit Nicole MD LAB - CHEMISTRY ORDERABLES Fin al Result Performing Organization Address [facility]/ZIP Co de Phone Number [address] [address], [place] [phone] * (ABNORMAL) GLUCOSE - POINT OF CARE (07/07/2025 11:54 PM [employer]) Glucose WB/POC 121(H) 70 - 99 mg/dL 07/07/2025 11:55 PM [employer] [facility] Specimen Type Arterial/C apillary 07/07/2025 11:55 PM [employer] [facility] Blood BLOOD SPECIMEN / Unknown 07/07/2025 11:54 PM [employer] 07/07/2025 11:55 PM [employer] us Kamaljit Nicole MD LAB - POINT OF CARE ORDERABLES Final Result [address] [address], [place] [phone] * (ABNORMAL) GLUCOSE - POINT OF CARE (07/07/2025 8:48 PM [employer]) Glucose WB/POC 207(H) 70 - 99 mg/dL 07/07/2025 8:49 PM [employer] [facility] Specimen Type Arterial/C apillary 07/07/2025 8:49 PM [facility] Blood BLOOD SPECIMEN / Unknown 07/07/2025 8:48 PM [employer] 07/07/2025 8:49 PM [employer] Kamaljit Nicole MD LAB - POINT OF CARE ORDERABLES Final Result Performing Organization Address [facility]/ZIP Co de Phone Number [address] [address], [place] [phone] * (ABNORMAL) GLUCOSE - POINT OF CARE (07/07/2025 4:38 PM [employer]) Glucose WB/POC 263(H) 70 - 99 mg/dL 07/07/2025 4:39 PM [facility] Specimen Type Arterial/C apillary 07/07/2025 4:39 PM [facility] Blood BLOOD SPECIMEN / Unknown 07/07/2025 4:38 PM [employer] 07/07/2025 4:39 PM [employer] Kamaljit Nicole MD LAB - POINT OF CARE ORDERABLES Final Result Performing Organization Address City/[facility]/ZIP Co de Phone Number [address] [address], [place] [phone] * (ABNORMAL) PTT (07/07/2025 9:20 AM [employer]) APTT 71.6(H) 23.0 - 38.4 Seconds 07/07/2025 10:04 AM [facility] Comment:Suggested therapeuti c range for full dose I.V. unfractionated heparin therapy for venous thromboembolism is 71 to 109 seconds. Blood BLOOD SPECIMEN / Unknown Venipuncture / Unknown 07/07/2025 9:20 AM [employer] 07/07/2025 9:39 AM [employer] Kamaljit Nicole MD LAB - COAGULATION ORDERABLES F inal Result [address] [address], [facility] [phone] * XR Chest 1Vw Portable (07/07/2025 4:37 AM [employer]) Anatomical Region Laterality Modality Chest Digital Radiogra phy 07/07/2025 12:1 0 PM [employer] Narrative 07/07/2025 12:39 PM [employer] PROCEDURE: XR CHEST 1VW PORTABLE, DATE/TIME OF EXAM: 07/07/2025 4:37 AM, LOCATION [facility] INDICATION: J96.01: Acute hypoxic respiratory failure (HCC) ADDITIONAL CLINICAL INFORMATION: Ordering Provider Reason For Exam: pulm congestion Technologist Note: Additional: COMPARISON: Chest radiograph dated 07/06 and multiple priors. FINDINGS/IMPRESSION: *Nasogastric tube outside the [id number]. Redemonstrated consolidation in the left lower lobe with mild deviation of the mediastinum to the left and loss of lung volume which may indicate atelectasis. Bronchovascular crowding of the right lung likely from atelectasis. Small left pleural effusion is not excluded. The right lung is unremarkable. No pneumothorax is visible. Report dictated by Cristino Tomlin MD, ([facility] resident). > Dictated by Disc Recordist I, Tray Jarvis MD have personally reviewed and interpreted this examination/study. > Interpreting Provider: Tray Jarvis MD on 07/07/2025 12:39 PM Procedure Note Tray Jarvis MD - 07/07/2025 PROCEDURE: XR CHEST 1VW PORTABLE, DATE/TIME OF EXAM: 07/07/2025 4:37AM, LOCATION [facility] INDICATION: J96.01: Acute hypoxic respiratory failure (HCC) ADDITIONAL CLINICAL INFORMATION: Ordering Provider Reason For Exam: pulm congestion Technologist Note: Additional: COMPARISON: Chest radiograph dated 07/06 and multiple priors. FINDINGS/IMPRESSION: *Nasogastric tube outside the [id number]. Redemonstrated consolidation in the left lower lobe with mild deviationof the mediastinum to the left and loss of lung volume which may indicate atelectasis. Bronchovascular crowding of the right lung likely from atelectasis. Small left pleural effusion is not excluded. The right lung is unremarkable. No pneumothorax is visible. Report dictated by Cristino Tomlin MD, ([facility]ated [facility] resident). > Dictated by Disc Recordist I, Tray Jarvis MD have personally reviewed and interpreted this examination/study. > Interpreting Provider: Tray Jarvis MD on 2:39 PM Kamaljit Nicole MD DIAGNOSTIC IMAGING ORDERABLES Final Result * (ABNORMAL) PTT (07/07/2025 3:26 AM [employer]) APTT 72.2(H) 23.0 - 38.4 Seconds 07/07/2025 4:03 AM [employer] [facility] Comment:Suggested therapeuti c range for full dose I.V. unfractionated heparin therapy for venous thromboembolism is 71 to 109 seconds. Blood BLOOD SPECIMEN / Unknown Venipuncture / Unknown 07/07/2025 3:26 AM [employer] 07/07/2025 3:40 AM [employer] Kamaljit Nicole MD LAB - COAGULATION ORDERABLES F inal Result [facility] [address] [place] [address], [facility] [phone] * (ABNORMAL) PT-INR (07/07/2025 3:26 AM [employer]) PT 17.8(H) 12.1 - 14.8 Seconds 07/07/2025 4:03 AM [employer] [facility] INR 1.5 See Comment 07/07/2025 4:03 AM [employer] [facility] Comment:The suggested therap eutic range for standard coumadin (warfarin) therapy is an INR of 2.0-3.0. For high-risk patients (Mechanical Mitral Valve Prosthesis, etc.), the suggested prophylactic therapeutic range is an INR of 2.5-3.5. Blood BLOOD SPECIMEN / Unknown Venipuncture / Unknown 07/07/2025 3:26 AM [employer] 07/07/2025 3:40 AM [facility] us Kamaljit Nicole MD LAB - COAGULATION ORDERABLES F inal Result [facility] [address] [place] [address], [facility] [phone] * (ABNORMAL) BLOOD GASES ART + COOX PANEL (07/07/2025 3:26 AM [employer]) pH Arterial 7.33(L) 7.35 - 7.45 pH 07/07/2025 3:40 AM [facility] pO2 Arterial 64(L) 80 - 100 mmHg 07/07/2025 3:40 AM [facility] pCO2 Arterial 53(H) 35 - 45 mmHg 3:40 AM [facility] HCO3 Arterial 27.9 20.0 - 30.0 mmol/L 07/07/2025 3:40 AM [facility] BE Arterial 1.5 -2.0 - 2.0 mmol/L 07/07/2025 3:40 AM [facility] Oxyhemoglobin Arterial 90.2 % 07/07/2025 3:40 AM [facility] Dexoyhemoglobin (HHB) % 7.6 % 07/07/2025 3:40 AM [facility] Methemoglobin <0.8 0.0 - 2.0 % 07/07/2025 3:40 AM [facility] Carboxyhemoglobin 2.2(H) 0.0 - 2.0 % 2024 3:40 AM [facility] O2 Content Arterial 11.4 Interpret within clinical context ml/dL 07/07/2025 3:40 AM [facility] Hemoglobin by COOX 8.9(L) 12.0 - 17.6 g/dL 07/07/2025 3:40 AM [facility] O2 Saturation Arterial 92 90 - 100 % 07/07/2025 3:40 AM [facility] FI O2 Arterial 50.0 % 07/07/2025 3:40 AM [facility] Blood, arterial ARTERIAL BLOOD SPECIMEN / Unknown Arterial Puncture / Unknown 07/07/2025 3:26 AM [employer] 07/07/2025 3:35 AM [employer] Narrative [facility] - 07/07/2025 3:40 AM [employer] Carboxyhemoglobin Normal Concentration: Non-smokers: 0-2%; Smokers: 0-9%; Toxic: >20% us Erinn Murillo MD LAB - BLOOD GASES ORDERABLES Final Result Performing Organization Address City/[facility]/ZIP Co de Phone Number [address] [address], [facility] [phone] * PHOSPHORUS BLOOD (07/07/2025 3:26 AM [employer]) Phosphorus 3.2 2.8 - 5.1 mg/dL 07/07/2025 4:04 AM [facility] Blood BLOOD SPECIMEN / Unknown Venipuncture / Unknown 07/07/2025 3:26 AM [employer] 07/07/2025 3:38 AM [employer] us Kamaljit Nicole MD LAB - CHEMISTRY ORDERABLES Fin al Result [address] [address], [facility] [phone] * MAGNESIUM BLOOD (07/07/2025 3:26 AM [employer]) Magnesium 2.5 1.6 - 2.6 mg/dL 07/07/2025 4:04 AM [facility] Blood BLOOD SPECIMEN / Unknown Venipuncture / Unknown 07/07/2025 3:26 AM [employer] 07/07/2025 3:38 AM [employer] us Gregg Swenson DO LAB - CHEMISTRY ORDERABLES F inal Result [address] [address], [facility] [phone] * CALCIUM IONIZED WHOLE BLOOD (07/07/2025 3:26 AM [facility]) Pathologist [facility] Calcium Ionized 1.21 mmol/L 07/07/2025 3:40 AM [facility] pH 7.35 7.35 - 7.45 pH 07/07/2025 3:40 AM [facility] Ionized Calcium pH Adjusted 1.19 1.19 - 1.34 mmol/L 07/07/2025 3:40 AM [facility] Blood BLOOD SPECIMEN / Unknown Venipuncture / Unknown 07/07/2025 3:26 AM [employer] 07/07/2025 3:35 AM [facility] Gregg Swenson LAB - CHEMISTRY ORDERABLES F inal Result Performing Organization Address [facility] Co de Phone Number [address] [address], [facility] [phone] * (ABNORMAL) BASIC METABOLIC PANEL (CALCIUM TOTAL) (07/07/2025 3:26 AM [facility]) Pathologist [facility] BUN 39(H) 7 - 26 mg/dL 07/07/2025 4:04 AM [facility] Creatinine 1.08 0.71 - 1.16 mg/dL 07/07/2025 4:04 AM [facility] Sodium 148(H) 136 - 145 mmol/L 07/07/2025 4:04 AM [facility] Potassium 3.8 3.5 - 4.5 mmol/L 07/07/2025 4:04 AM [facility] Chloride 113(H) 98 - 107 mmol/L 07/07/2025 4:04 AM [facility] CO2 29 22 - 29 mmol/L 07/07/2025 4:04 AM [facility] Glucose 152(H) 70 - 99 mg/dL 07/07/2025 4:04 AM [facility] Calcium 8.4 8.4 - 10.2 mg/dL 07/07/2025 4:04 AM [facility] Anion Gap 6 6 - 16 07/07/2025 4:04 AM [facility] BUN/Creatinine Ratio 36(H) 7 - 23 07/07/2025 4:04 AM [facility] Osmolality Calculated 318(H) 275 - 295 mOsm/kg 07/07/2025 4:04 AM [facility] eGFR by CKD-EPI 76(L) >=90 mL/min/1.7 3 m2 07/07/2025 4:04 AM [facility] Comment:Estimated Glomerular Filtration Rate (eGFR) calculated using the CKD-EPI Creatinine Equation (2020), per the National Kidney Foundation and [place] [employer] Neph[employer] recommendations. Blood BLOOD SPECIMEN / Unknown Venipuncture / Unknown 07/07/2025 3:26 AM [employer] 07/07/2025 3:38 AM [facility] us Gregg Swenson DO LAB - CHEMISTRY ORDERABLES F inal Result [facility] [address] [place] [address], [facility] [phone] * (ABNORMAL) CBC W/O DIFFERENTIAL (07/07/2025 3:26 AM [facility]) WBC 13.7(H) 4.0 - 10.7 x10E9/L 07/07/2025 3:46 AM [facility] RBC Count 2.66(L) 4.30 - 5.80 x10E12/L 07/07/2025 3:46 AM [facility] Hemoglobin 8.5(L) 13.3 - 17.5 g/dL 07/07/2025 3:46 AM [facility] Hematocrit 27.4(L) 38.7 - 51.1 % 07/07/2025 3:46 AM [facility] MCV 103.0(H) 80.0 - 98.0 fL 07/07/2025 3:46 AM [facility] MCH 32.0 26.7 - 33.6 pg 07/07/2025 3:46 AM [facility] MCHC 31.0(L) 31.7 - 36.3 g/dL 07/07/2025 3:46 AM [facility] RDW-CV 15.1(H) 11.3 - 14.8 % 07/07/2025 3:46 AM [facility] Platelet Count 241 150 - 420 x10E9/L 07/07/2025 3:46 AM [facility] MPV 11.2 7.8 - 11.4 fL 07/07/2025 3:46 AM [facility] Blood BLOOD SPECIMEN / Unknown Venipuncture / Unknown 07/07/2025 3:26 AM [employer] 07/07/2025 3:40 AM [employer] us Gregg Swenson DO LAB - HEMATOLOGY ORDERABLES Final Result Performing Organization Address [facility]/ZIP Co de Phone Number [address] [address], [place] [phone] * VANCOMYCIN LEVEL RANDOM (07/07/2025 3:26 AM [employer]) Vancomycin Random 8.6 Therapeutic Ranges not established for random specimens ug/mL 07/07/2025 5:02 AM [facility] Blood BLOOD SPECIMEN / Unknown Venipuncture / Unknown 07/07/2025 3:26 AM [employer] 07/07/2025 3:34 AM [employer] Narrative [facility] - 07/07/2025 5:02 AM [employer] See institution protocol. us Kamaljit Nicole MD LAB - CHEMISTRY ORDERABLES Fin al Result Performing Organization Address City/[facility]/ZIP Co de Phone Number [address] [address], [place] [phone] * (ABNORMAL) PTT (07/06/2025 8:26 PM [employer]) APTT 41.4(H) 23.0 - 38.4 Seconds 07/06/2025 8:56 PM [facility] Comment:Suggested therapeuti c range for full dose I.V. unfractionated heparin therapy for venous thromboembolism is 71 to 109 seconds. Blood BLOOD SPECIMEN / Unknown Venipuncture / Unknown 07/06/2025 8:26 PM [employer] 07/06/2025 8:31 PM [employer] Kamaljit Nicole MD LAB - COAGULATION ORDERABLES F inal Result [facility] [address] [place] [address], [facility] [phone] * (ABNORMAL) DIFFERENTIAL MANUAL (07/06/2025 12:34 PM [employer]) Neutrophil % 82(H) 41 - 74 % 07/06/2025 1:52 PM [facility] Lymphocyte % 7(L) 17 - 47 % 07/06/2025 1:52 PM [facility] Monocyte % 4 3 - 11 % 07/06/2025 1:52 PM [facility] Eosinophil % 4 0 - 7 % 07/06/2025 1:52 PM [facility] Basophil % 2 0 - 2 % 07/06/2025 1:52 PM [facility] Myelocyte % 1(H) 0% % 07/06/2025 1:52 PM [facility] Neutrophil Absolute 11.15(H) 1.60 - 7.50 x10E9/L 07/06/2025 1:52 PM [facility] Lymphocyte Absolute 0.95(L) 1.00 - 4.40 x10E9/L 07/06/2025 1:52 PM [facility] Monocyte Absolute 0.54 0.15 - 1.00 x10E9/L 07/06/2025 1:52 PM [facility] Eosinophil Absolute 0.54 0.00 - 0.60 x10E9/L 07/06/2025 1:52 PM [facility] Basophil Absolute 0.27(H) 0.00 - 0.13 x10E9/L 07/06/2025 1:52 PM [facility] RBC Morphology REVIEWED 07/06/2025 1:52 PM [facility] Blood BLOOD SPECIMEN / Unknown Venipuncture / Unknown 07/06/2025 12:34 PM [employer] 07/06/2025 12:42 PM [employer] us Kamaljit Nicole MD LAB - HEMATOLOGY ORDERABLES Fi nal Result [facility] [address] [place] [address], [facility] [phone] * (ABNORMAL) CBC W AUTO DIFFERENTIAL (07/06/2025 12:34 PM [employer]) WBC 13.6(H) 4.0 - 10.7 x10E9/L 07/06/2025 1:52 PM [facility] RBC Count 2.83(L) 4.30 - 5.80 x10E12/L 07/06/2025 1:52 PM [facility] Hemoglobin 9.2(L) 13.3 - 17.5 g/dL 07/06/2025 1:52 PM [facility] Hematocrit 28.7(L) 38.7 - 51.1 % 07/06/2025 1:52 PM [facility] MCV 101.4(H) 80.0 - 98.0 fL 07/06/2025 1:52 PM [facility] MCH 32.5 26.7 - 33.6 pg 07/06/2025 1:52 PM [facility] MCHC 32.1 31.7 - 36.3 g/dL 07/06/2025 1:52 PM [facility] RDW-CV 15.0(H) 11.3 - 14.8 % 07/06/2025 1:52 PM [facility] Platelet Count 262 150 - 420 x10E9/L 07/06/2025 1:52 PM [facility] MPV 10.9 7.8 - 11.4 fL 07/06/2025 1:52 PM [facility] Blood BLOOD SPECIMEN / Unknown Venipuncture / Unknown 07/06/2025 12:34 PM [employer] 07/06/2025 12:42 PM [employer] us aKmaljit Nicole MD LAB - HEMATOLOGY ORDERABLES Fi nal Result [address] [address], [facility] [phone] * PTT (07/06/2025 12:34 PM [employer]) APTT 30.0 23.0 - 38.4 Seconds 07/06/2025 3:30 PM [employer] [facility] Comment:Suggested therapeuti c range for full dose I.V. unfractionated heparin therapy for venous thromboembolism is 71 to 109 seconds. Blood BLOOD SPECIMEN / Unknown Venipuncture / Unknown 07/06/2025 12:34 PM [employer] 07/06/2025 12:42 PM [employer] Kamaljit Nicole MD LAB - COAGULATION ORDERABLES F inal Result Performing Organization Address [facility] de Phone Number [address] [address], [facility] [phone] * (ABNORMAL) PT-INR (07/06/2025 12:34 PM [employer]) PT 17.3(H) 12.1 - 14.8 Seconds 07/06/2025 3:30 PM [employer] [facility] INR 1.4 See Comment 07/06/2025 3:30 PM [employer] [facility] Comment:The suggested therap eutic range for standard coumadin (warfarin) therapy is an INR of 2.0-3.0. For high-risk patients (Mechanical Mitral Valve Prosthesis, etc.), the suggested prophylactic therapeutic range is an INR of 2.5-3.5. Blood BLOOD SPECIMEN / Unknown Venipuncture / Unknown 07/06/2025 12:34 PM [employer] 07/06/2025 12:42 PM [employer] Kamaljit Nicole MD LAB - COAGULATION ORDERABLES F inal Result Performing Organization Address [facility] Co de Phone Number [address] [address], [facility] [phone] * XR Chest 1Vw Portable (07/06/2025 4:26 AM [employer]) Anatomical Region Laterality Modality Chest Digital Radiogra phy 07/06/2025 9:21 AM [employer] Narrative 07/06/2025 9:42 AM [employer] PROCEDURE: XR CHEST 1VW PORTABLE, DATE/TIME OF EXAM: 07/06/2025 4:26 AM, LOCATION [facility] INDICATION: K43.7: Ventral hernia with gangrene ADDITIONAL CLINICAL INFORMATION: Ordering Provider Reason For Exam: High O2 requirement req HFNC Technologist Note: Additional: COMPARISON: Chest radiograph from 07/05/2025. FINDINGS/IMPRESSION: Patient is significantly rotated. *Interval removal of endotracheal tube. *Orogastric/nasogastric tube extends below the diaphragm. *Right upper extremity PICC line and right IJ approach central venous catheter are suboptimally evaluated due to diminished detail and superimposing EKG leads. Improved aeration of the left upper lung zone. Persistent opacification of the left mid and lower lung zones. Atelectasis, pneumonia, and pleural effusion may contribute. Right costophrenic margin is excluded from the [id number]. Right lung interstitial opacities likely due to pulmonary edema. No pneumothorax. The cardiomediastinal silhouette is obscured. > Dictated by Damir Frances MD > Dictated by Disc Recordist I, Juan De La Vega MD have personally reviewed and interpreted this examination/study. > Interpreting Provider: Juan De La Vega MD on 07/06/2025 9:42 AM Procedure Note Juan De La Vega MD - 07/06/2025 PROCEDURE: XR CHEST 1VW PORTABLE, DATE/TIME OF EXAM: 07/06/2025 4:26AM, LOCATION [facility] INDICATION: K43.7: Ventral hernia with gangrene ADDITIONAL CLINICAL INFORMATION: Ordering Provider Reason For Exam: High O2 requirement req HFNC Technologist Note: Additional: COMPARISON: Chest radiograph from 07/05/2025. FINDINGS/IMPRESSION: Patient is significantly rotated. *Interval removal of endotracheal tube. *Orogastric/nasogastric tube extends below the diaphragm. *Right upper extremity PICC line and right IJ approach central venous catheter are suboptimally evaluated due to diminished detail and superimposing EKG leads. Improved aeration of the left upper lung zone. Persistent opacificationof the left mid and lower lung zones. Atelectasis, pneumonia, and pleural effusion may contribute. Right costophrenic margin is excluded from the [id number]. Right lung interstitial opacities likely due to pulmonary edema. No pneumothorax. The cardiomediastinal silhouette is obscured. > Dictated by Damir Frances MD > Dictated by Disc Recordist I, Juan De La Vega MD have personally reviewed and interpreted this examination/study. > Interpreting Provider: Juan De La Vega MD on 07/06/2025 9:42 AM Kamaljit Nicole MD DIAGNOSTIC IMAGING ORDERABLES Final Result * (ABNORMAL) BLOOD GASES ART + COOX PANEL (07/06/2025 1:31 AM [employer]) pH Arterial 7.36 7.35 - 7.45 pH 07/06/2025 1:54 AM [facility] pO2 Arterial 188(H) 80 - 100 mmHg 07/06/2025 1:54 AM [facility] pCO2 Arterial 47(H) 35 - 45 mmHg 1:54 AM [facility] HCO3 Arterial 26.6 20.0 - 30.0 mmol/L 07/06/2025 1:54 AM [facility] BE Arterial 0.8 -2.0 - 2.0 mmol/L 07/06/2025 1:54 AM [facility] Oxyhemoglobin Arterial 98.1 % 07/06/2025 1:54 AM [facility] Dexoyhemoglobin (HHB) % <1.0 % 07/06/2025 1:54 AM [facility] Methemoglobin <0.8 0.0 - 2.0 % 07/06/2025 1:54 AM [facility] Carboxyhemoglobin 1.7 0.0 - 2.0 % 2024 1:54 AM [facility] O2 Content Arterial 13.1 Interpret within clinical context ml/dL 07/06/2025 1:54 AM [facility] Hemoglobin by COOX 9.2(L) 12.0 - 17.6 g/dL 07/06/2025 1:54 AM [facility] O2 Saturation Arterial 100 90 - 100 % 07/06/2025 1:54 AM [employer] [facility] FI O2 Arterial 60.0 % 07/06/2025 1:54 AM [facility] Comment:HFNC 60%/40L Blood, arterial ARTERIAL BLOOD SPECIMEN / Unknown Arterial Puncture / Unknown 07/06/2025 1:31 AM [employer] 07/06/2025 1:34 AM [employer] Narrative [facility] - 07/06/2025 1:54 AM [employer] Carboxyhemoglobin Normal Concentration: Non-smokers: 0-2%; Smokers: 0-9%; Toxic: >20% us Erinn Murillo MD LAB - BLOOD GASES ORDERABLES Final Result Performing Organization Address [facility] de Phone Number [address] [address], [facility] [phone] * PHOSPHORUS BLOOD (07/06/2025 1:31 AM [employer]) Phosphorus 3.5 2.8 - 5.1 mg/dL 07/06/2025 2:08 AM [facility] Blood BLOOD SPECIMEN / Unknown Venipuncture / Unknown 07/06/2025 1:31 AM [employer] 07/06/2025 1:38 AM [employer] us Kamaljit Nicole MD LAB - CHEMISTRY ORDERABLES Fin al Result Performing Organization Address [facility] de Phone Number [address] [address], [facility] [phone] * MAGNESIUM BLOOD (07/06/2025 1:31 AM [employer]) Magnesium 2.6 1.6 - 2.6 mg/dL 07/06/2025 2:08 AM [employer] [facility] Blood BLOOD SPECIMEN / Unknown Venipuncture / Unknown 07/06/2025 1:31 AM [employer] 07/06/2025 1:38 AM [employer] us Gregg Swenson DO LAB - CHEMISTRY ORDERABLES F inal Result Performing Organization Address City/[facility] Co de Phone Number [address] [address], [facility] [phone] * (ABNORMAL) CALCIUM IONIZED WHOLE BLOOD (07/06/2025 1:31 AM [employer]) [facility] Calcium Ionized 1.22 mmol/L 07/06/2025 1:39 AM [facility] pH 7.32(L) 7.35 - 7.45 pH 07/06/2025 1:39 AM [facility] Ionized Calcium pH Adjusted 1.18(L) 1.19 - 1.34 mmol/L 07/06/2025 1:39 AM [facility] Blood BLOOD SPECIMEN / Unknown Venipuncture / Unknown 07/06/2025 1:31 AM [employer] 07/06/2025 1:34 AM [facility] Gregg Swenson DO LAB - CHEMISTRY ORDERABLES F inal Result Performing Organization Address [facility] Co de Phone Number [address] [address], [facility] [phone] * (ABNORMAL) BASIC METABOLIC PANEL (CALCIUM TOTAL) (07/06/2025 1:31 AM [employer]) [facility] BUN 44(H) 7 - 26 mg/dL 07/06/2025 2:08 AM [facility] Creatinine 1.27(H) 0.71 - 1.16 mg/dL 07/06/2025 2:08 AM [facility] Sodium 146(H) 136 - 145 mmol/L 07/06/2025 2:08 AM [facility] Potassium 3.5 3.5 - 4.5 mmol/L 07/06/2025 2:08 AM [facility] Chloride 112(H) 98 - 107 mmol/L 07/06/2025 2:08 AM [facility] CO2 28 22 - 29 mmol/L 07/06/2025 2:08 AM [facility] Glucose 149(H) 70 - 99 mg/dL 07/06/2025 2:08 AM [facility] Calcium 8.4 8.4 - 10.2 mg/dL 07/06/2025 2:08 AM [facility] Anion Gap 6 6 - 16 07/06/2025 2:08 AM [facility] BUN/Creatinine Ratio 35(H) 7 - 23 07/06/2025 2:08 AM [facility] Osmolality Calculated 316(H) 275 - 295 mOsm/kg 07/06/2025 2:08 AM [facility] eGFR by CKD-EPI 62(L) >=90 mL/min/1.7 3 m2 07/06/2025 2:08 AM [facility] Comment:Estimated Glomerular Filtration Rate (eGFR) calculated using the CKD-EPI Creatinine Equation (2020), per the National Kidney Foundation and [place] [employer] Neph[employer] recommendations. Blood BLOOD SPECIMEN / Unknown Venipuncture / Unknown 07/06/2025 1:31 AM [employer] 07/06/2025 1:38 AM [facility] us Gregg Swenson DO LAB - CHEMISTRY ORDERABLES F inal Result [facility] [address] [place] [address], [facility] [phone] * (ABNORMAL) CBC W/O DIFFERENTIAL (07/06/2025 1:31 AM [facility]) WBC 15.4(H) 4.0 - 10.7 x10E9/L 07/06/2025 1:41 AM [facility] RBC Count 2.80(L) 4.30 - 5.80 x10E12/L 07/06/2025 1:41 AM [facility] Hemoglobin 8.9(L) 13.3 - 17.5 g/dL 07/06/2025 1:41 AM [facility] Hematocrit 28.4(L) 38.7 - 51.1 % 07/06/2025 1:41 AM [facility] MCV 101.4(H) 80.0 - 98.0 fL 07/06/2025 1:41 AM [facility] MCH 31.8 26.7 - 33.6 pg 07/06/2025 1:41 AM [facility] MCHC 31.3(L) 31.7 - 36.3 g/dL 07/06/2025 1:41 AM [facility] RDW-CV 15.0(H) 11.3 - 14.8 % 07/06/2025 1:41 AM [facility] Platelet Count 270 150 - 420 x10E9/L 07/06/2025 1:41 AM [facility] MPV 11.0 7.8 - 11.4 fL 07/06/2025 1:41 AM [facility] Blood BLOOD SPECIMEN / Unknown Venipuncture / Unknown 07/06/2025 1:31 AM [employer] 07/06/2025 1:37 AM [employer] us Gregg Swenson DO LAB - HEMATOLOGY ORDERABLES Final Result [address] [address], [place] [phone] * VANCOMYCIN LEVEL RANDOM (07/05/2025 9:10 PM [employer]) Pathologist [facility] Vancomycin Random 11.5 Therapeutic Ranges not established for random specimens ug/mL 07/05/2025 10:18 PM [facility] Blood BLOOD SPECIMEN / Unknown Venipuncture / Unknown 07/05/2025 9:10 PM [employer] 07/05/2025 9:28 PM [employer] Narrative [facility] - 07/05/2025 10:18 PM [employer] See institution protocol. us Erinn Murillo MD LAB - CHEMISTRY ORDERABLES Fi nal Result [address] [address], [place] [phone] * (ABNORMAL) GLUCOSE - POINT OF CARE (07/05/2025 9:09 PM [employer]) Glucose WB/POC 221(H) 70 - 99 mg/dL 07/05/2025 9:11 PM [facility] Specimen Type Venous 07/05/2025 9:11 PM [facility] Blood BLOOD SPECIMEN / Unknown 07/05/2025 9:09 PM [employer] 07/05/2025 9:11 PM [employer] Kamaljit Nicole MD LAB - POINT OF CARE ORDERABLES Final Result Performing Organization Address [facility]/ZIP Co de Phone Number [address] [address], [place] [phone] * (ABNORMAL) GLUCOSE - POINT OF CARE (07/05/2025 6:19 PM [employer]) Glucose WB/POC 145(H) 70 - 99 mg/dL 07/05/2025 6:23 PM [employer] [facility] Specimen Type Arterial/C apillary 07/05/2025 6:23 PM [employer] [facility] Blood BLOOD SPECIMEN / Unknown 07/05/2025 6:19 PM [employer] 07/05/2025 6:23 PM [employer] Kamaljit Nicole MD LAB - POINT OF CARE ORDERABLES Final Result Performing Organization Address [facility] Co de Phone Number [address] [address], [place] [phone] * IR Picc Line Insert (07/05/2025 2:30 PM [employer]) Anatomical Region Laterality Modality Chest, Upper Extremity Other Narrative 07/05/2025 1:44 PM [employer] Danny Piedra MD 07/10/2025 9:25 PM Department of Interventional Radiology Procedure Note: PICC line placement 07/05/2025 History: Serjio Sanderson is a 64 year old male W Pmhx CHF, COPD, afib, DVT/PE on Xarelto (last taken 06/30), who presented with signs of an incarcerated, strangulated and perforated ventral hernia with overlying skin changes. After long discussion of risks and benefits (see note from Dr. Bermudez on 07/01), patient was taken to the OR late evening of 07/01 and was found to have 6cm x 6cm ventral hernia with incarcerated bowel with large amount of stool encountered, surrounding soft tissue with component of necrotizing soft tissue infection requiring excisional debridement of [id number], small bowel perforation resected and then left in discontinuity with Abthera placed. Indication: Nutritional Support Staking Engineer: Angelo Washington RN [place]- Procedures: 1. Limited extremity ultrasound to assess vascular patency 2. Ultrasound guided access of the Right basilic vein. 3. Placement of peripherally inserted central line with magnetic tracking and ECG tip positioning system (IMT). Anesthesia: Local anesthesia with 5mL of 1% Lidocaine without epinephrine Procedure in detail: Type of line placed: Triple Lumen Power Picc The risks and benefits of PICC placement were explained to Family. The risks include discussed include pain, inadvertent arterial puncture, infection, blood clots, phlebitis, and cardiac arrhythmias. They were able to consent to the PICC insertion. Timeout and hand hygiene completed prior to procedure. Traffic was limited in the room during the procedure. Skin prepped with appropriate antibacterial solution prior to skin puncture. Maximum sterile barrier precautions were used including sterile gown and gloves, hat, mask, eye protection and a large sterile drape. Limited ultrasound of the the basilic vein demonstrated patent and compressible vein. A maria scale image was documented. The patient was given local anesthesia with 5 milliliters of 1% Lidocaine without epinephrine. The basilic vein was accessed using a micropuncture needle. The needle entry was documented. A 0.018-inch guidewire was then advanced centrally. A small dermatotomy was made at the puncture site, and then the peel-away sheath was advanced into the vein. The length of the catheter was assessed with magnetic tracking and ECG tip positioning system. The PICC line pre-loaded with magnetic tip was then introduced through the peel-away sheath and advanced to the right atrium near the cavoatrial junction. The triple lumen PICC was placed using the Seldinger technique with a Right basilicapproach without complication. There was dark, non-pulsatile blood return in all ports and they were easily flushed with saline. The tip of the catheter was guided by the magnetic tracking and ECG tip positioning system ([employer]), The peel-away sheath was removed, and the PICC was secured to the skin with a engineered securement device. An overlying dressing was placed. PICC tip position was verified by portable chest x-ray due to inconsistencies with 3CG feedback. This showed PICC tip in good position in the distal SVC. Reposition of the PICC was not indicated. The patient tolerated the procedure well. Patient Guide Booklet and Fact Sheet for preventing infection placed in chart for discharge packet. Reviewed with: RN Complications: none. All the ports were aspirated and flushed to assure patency. The patient tolerated this procedure without apparent immediate complication. Impression: Successful placement of 55 cm PICC Fr: 5 Fr triple lumen power PICC via the Right basilic vein with tip in the cavo-atrial junction. The procedure was performed by Angelo Washington RN [place]-. The final image was reviewed by , Interventional Radiology Attending- IR Attending: Danny Piedra MD The catheter can be used now. us Kamaljit Nicole MD IR ORDERABLES Final Result * XR Chest 1Vw Portable (07/05/2025 2:24 PM [employer]) Anatomical Region Laterality Modality Chest Digital Radiogra phy 07/05/2025 3:30 PM [employer] Narrative 07/06/2025 1:26 AM [employer]ER PROCEDURE: XR CHEST 1VW PORTABLE, DATE/TIME OF EXAM: 07/05/2025 2:24 PM, LOCATION [facility] INDICATION: K43.7: Ventral hernia with gangrene ADDITIONAL CLINICAL INFORMATION: Ordering Provider Reason For Exam: PICC tip confirmation Technologist Note: Additional: COMPARISON: Chest radiograph from 07/05/2025 at 4:13 AM FINDINGS/IMPRESSION: Patient is significantly rotated. *Endotracheal tube terminates in the midtrachea. *Orogastric/nasogastric tube tip and side port are within the stomach. *Right IJ approach central venous line terminating at the brachiocephalic vein confluence. *Right extremity PICC line tip superimposes region of presumed right atrium. Complete whiteout of the left hemithorax. Atelectasis, pneumonia, and pleural effusion may contribute. Unchanged mild right lower lung zone atelectasis and trace right pleural effusion. No pneumothorax. The cardiomediastinal silhouette is stable with atherosclerotic calcifications of the aorta. The visible bony thorax is intact. > Dictated by Damir Frances MD > Dictated by Disc Recordist I, Matias Finley MD have personally reviewed and interpreted this examination/study. > Interpreting Provider: Matias Finley MD on 07/06/2025 1:26 AM Procedure Note Matias Finley MD - 07/06/2025 PROCEDURE: XR CHEST 1VW PORTABLE, DATE/TIME OF EXAM: 07/05/2025 2:24PM, LOCATION [facility] INDICATION: K43.7: Ventral hernia with gangrene ADDITIONAL CLINICAL INFORMATION: Ordering Provider Reason For Exam: PICC tip confirmation Technologist Note: Additional: COMPARISON: Chest radiograph from 07/05/2025 at 4:13 AM FINDINGS/IMPRESSION: Patient is significantly rotated. *Endotracheal tube terminates in the midtrachea. *Orogastric/nasogastric tube tip and side port are within the stomach. *Right IJ approach central venous line terminating at thebrachiocephalic vein confluence. *Right extremity PICC line tip superimposes region of presumed right atrium. Complete whiteout of the left hemithorax. Atelectasis, pneumonia, and pleural effusion may contribute. Unchanged mild right lower lung zone atelectasis and trace right pleural effusion. No pneumothorax. The cardiomediastinal silhouette is stable with atherosclerotic calcifications of the aorta. The visible bony thorax is intact. > Dictated by Damir Frances MD > Dictated by Disc Recordist I, Matias Finley MD have personally reviewed and interpreted this examination/study. > Interpreting Provider: Matias Finley MD on 07/06/2025 1:26 AM us Danny Piedra MD DIAGNOSTIC IMAGING ORDERABLES Fi nal Result * (ABNORMAL) GLUCOSE - POINT OF CARE (07/05/2025 1:54 PM [employer]ER) Glucose WB/POC 157(H) 70 - 99 mg/dL 07/05/2025 1:59 PM [employer] CHECKER [facility] Specimen Type Arterial/C apillary 07/05/2025 1:59 PM [employer] CHECKER [facility] Blood BLOOD SPECIMEN / Unknown 07/05/2025 1:54 PM [employer]ER 07/05/2025 1:59 PM [employer] CHECKER us Kamaljit Nicole MD LAB - POINT OF CARE ORDERABLES Final Result [facility] [address] [address], [facility] [phone] * CULTURE BRONCHIAL WASHING+GRAM STAIN (07/05/2025 10:46 AM [employer]ER) Culture No growth SHAMAR 07/07/2025 7:29 AM [employer] CHECKER [facility] MICROBIOLOGY Gram Stain Light Polymorphonuclear cells 07/07/2025 7:29 AM [facility] MICROBIOLOGY Gram Stain No organisms seen 025 7:29 AM [facility] MICROBIOLOGY Microbiology (Lung, Left Lower Lobe) Collection / Unknown 07/05/2025 10:46 AM [employer]ER 07/05/2025 10:52 AM [employer] CHECKER Kamaljit Nicole MD LAB - MICROBIOLOGY ORDERABLES Final Result [facility] MICROBIOLOGY [address] [place] [address], [facility] [phone] * (ABNORMAL) GLUCOSE - POINT OF CARE (07/05/2025 8:57 AM E[employer] CHECKER) Glucose WB/POC 170(H) 70 - 99 mg/dL 07/05/2025 9:02 AM [facility] Specimen Type Arterial/C apillary 07/05/2025 9:02 AM [facility] Blood BLOOD SPECIMEN / Unknown 07/05/2025 8:57 AM [employer]ER 07/05/2025 9:02 AM [employer] CHECKER us Provider Unknown LAB - POINT OF CARE ORDERABLES Final Result [address] [address], [facility] [phone] * (ABNORMAL) GLUCOSE - POINT OF CARE (07/05/2025 4:56 AM E[employer] CHECKER) Glucose WB/POC 155(H) 70 - 99 mg/dL 07/05/2025 5:01 AM [facility] Specimen Type Arterial/C apillary 07/05/2025 5:01 AM [facility] Blood BLOOD SPECIMEN / Unknown 07/05/2025 4:56 AM [employer]ER 07/05/2025 5:01 AM [employer] CHECKER us Erinn Murillo MD LAB - POINT OF CARE ORDERABLE S Final Result [facility] [address] [place] [address], [facility] [phone] * XR Chest 1Vw Portable (07/05/2025 4:21 AM E[employer] CHECKER) Anatomical Region Laterality Modality Chest Digital Radiogra phy 07/05/2025 10:0 5 AM [employer] CHECKER Narrative 07/06/2025 1:01 AM [employer]ER PROCEDURE: XR CHEST 1VW PORTABLE, DATE/TIME OF EXAM: 07/05/2025 4:22 AM, LOCATION [facility] INDICATION: K43.7: Ventral hernia with gangrene ADDITIONAL CLINICAL INFORMATION: Ordering Provider Reason For Exam: pulm edema Technologist Note: Additional: COMPARISON: Chest radiograph from 07/04/2025 FINDINGS: Patient is significantly rotated. *Endotracheal tube terminates in the midtrachea. *Orogastric/nasogastric tube follows the path of the esophagus however the distal tube in the lower thorax is poorly seen. *Right IJ approach central venous line terminating at the brachiocephalic vein confluence. Unchanged opacification of the left mid and lower lung zones concerning for atelectasis. Cannot exclude superimposed pneumonia. Unchanged moderate left-sided pleural effusion. New right lower lung zone atelectasis and trace right pleural effusion. No pneumothorax. The cardiomediastinal silhouette is stable with atherosclerotic calcifications of the aorta. The visible bony thorax is intact. > Dictated by Damir Frances MD > Dictated by Disc Recordist I, Matias Finley MD have personally reviewed and interpreted this examination/study. > Interpreting Provider: Matias Finley MD on 07/06/2025 1:01 AM Procedure Note Matias Finley MD - 07/06/2025 PROCEDURE: XR CHEST 1VW PORTABLE, DATE/TIME OF EXAM: 07/05/2025 4:22AM, LOCATION [facility] INDICATION: K43.7: Ventral hernia with gangrene ADDITIONAL CLINICAL INFORMATION: Ordering Provider Reason For Exam: pulm edema Technologist Note: Additional: COMPARISON: Chest radiograph from 07/04/2025 FINDINGS: Patient is significantly rotated. *Endotracheal tube terminates in the midtrachea. *Orogastric/nasogastric tube follows the path of the esophagus howeverthe distal tube in the lower thorax is poorly seen. *Right IJ approach central venous line terminating at thebrachiocephalic vein confluence. Unchanged opacification of the left mid and lower lung zones concerningfor atelectasis. Cannot exclude superimposed pneumonia. Unchanged moderate left-sided pleural effusion. New right lower lung zone atelectasis and trace right pleural effusion. No pneumothorax. The cardiomediastinal silhouette is stable with atherosclerotic calcifications of the aorta. The visible bony thorax is intact. > Dictated by Damir Frances MD > Dictated by Disc Recordist I, Matias Finley MD have personally reviewed and interpreted this examination/study. > Interpreting Provider: Matias Finley MD on 07/06/2025 1:01 AM Erinn Murillo MD DIAGNOSTIC IMAGING ORDERABLES Final Result * (ABNORMAL) BLOOD GASES ART + COOX PANEL (07/05/2025 12:38 AM E[employer] CHECKER) pH Arterial 7.43 7.35 - 7.45 pH 07/05/2025 12:44 AM [facility] pO2 Arterial 176(H) 80 - 100 mmHg 07/05/2025 12:44 AM [facility] pCO2 Arterial 38 35 - 45 mmHg 12:44 AM [facility] HCO3 Arterial 25.2 20.0 - 30.0 mmol/L 07/05/2025 12:44 AM [facility] BE Arterial 0.9 -2.0 - 2.0 mmol/L 07/05/2025 12:44 AM [facility] Oxyhemoglobin Arterial 96.5 % 07/05/2025 12:44 AM [facility] Dexoyhemoglobin (HHB) % 1.1 % 07/05/2025 12:44 AM [facility] Methemoglobin 1.3 0.0 - 2.0 % 07/05/2025 12:44 AM [facility] Carboxyhemoglobin 1.1 0.0 - 2.0 % 2024 12:44 AM [facility] O2 Content Arterial 14.0 Interpret within clinical context ml/dL 07/05/2025 12:44 AM [facility] Hemoglobin by COOX 10.0(L) 12.0 - 17.6 g/dL 07/05/2025 12:44 AM [facility] O2 Saturation Arterial 99 90 - 100 % 07/05/2025 12:44 AM [facility] FI O2 Arterial 40.0 % 07/05/2025 12:44 AM [facility] Blood, arterial ARTERIAL BLOOD SPECIMEN / Unknown Arterial Puncture / Unknown 07/05/2025 12:38 AM [employer]ER 07/05/2025 12:42 AM [facility] - 07/05/2025 12:44 AM [facility] Carboxyhemoglobin Normal Concentration: Non-smokers: 0-2%; Smokers: 0-9%; Toxic: >20% us Erinn Murillo MD LAB - BLOOD GASES ORDERABLES Final Result [address] [address], [facility] [phone] * PHOSPHORUS BLOOD (07/05/2025 12:38 AM E[employer]ER) Phosphorus 3.1 2.8 - 5.1 mg/dL 07/05/2025 1:09 AM [facility] Blood BLOOD SPECIMEN / Unknown Venipuncture / Unknown 07/05/2025 12:38 AM [employer]ER 07/05/2025 12:43 AM [employer] CHECKER us Kamaljit Nicole MD LAB - CHEMISTRY ORDERABLES Fin al Result [address] [address], [facility] [phone] * MAGNESIUM BLOOD (07/05/2025 12:38 AM E[employer]ER) Magnesium 2.6 1.6 - 2.6 mg/dL 07/05/2025 1:09 AM [facility] Blood BLOOD SPECIMEN / Unknown Venipuncture / Unknown 07/05/2025 12:38 AM [employer]ER 07/05/2025 12:43 AM [employer] CHECKER Gregg Swenson DO LAB - CHEMISTRY ORDERABLES F inal Result Performing Organization Address City/[facility]/ZIP Co de Phone Number [address] [address], [facility] [phone] * CALCIUM IONIZED WHOLE BLOOD (07/05/2025 12:38 AM E[employer] CHECKER) Calcium Ionized 1.21 mmol/L 07/05/2025 12:45 AM [facility] pH 7.44 7.35 - 7.45 pH 07/05/2025 12:45 AM [facility] Ionized Calcium pH Adjusted 1.23 1.19 - 1.34 mmol/L 07/05/2025 12:45 AM [facility] Blood BLOOD SPECIMEN / Unknown Venipuncture / Unknown 07/05/2025 12:38 AM [employer]ER 07/05/2025 12:43 AM [employer] CHECKER Gregg Swenson DO LAB - CHEMISTRY ORDERABLES F inal Result Performing Organization Address [facility]/ZIP Co de Phone Number [address] [address], [facility] [phone] * (ABNORMAL) BASIC METABOLIC PANEL (CALCIUM TOTAL) (07/05/2025 12:38 AM E[employer] AND CHECKER) BUN 40(H) 7 - 26 mg/dL 07/05/2025 1:09 AM [facility] Creatinine 1.21(H) 0.71 - 1.16 mg/dL 07/05/2025 1:09 AM [facility] Sodium 144 136 - 145 mmol/L 07/05/2025 1:09 AM [facility] Potassium 3.5 3.5 - 4.5 mmol/L 07/05/2025 1:09 AM [facility] Chloride 110(H) 98 - 107 mmol/L 07/05/2025 1:09 AM [facility] CO2 23 22 - 29 mmol/L 07/05/2025 1:09 AM [facility] Glucose 135(H) 70 - 99 mg/dL 07/05/2025 1:09 AM [facility] Calcium 8.4 8.4 - 10.2 mg/dL 07/05/2025 1:09 AM [facility] Anion Gap 11 6 - 16 07/05/2025 1:09 AM [facility] BUN/Creatinine Ratio 33(H) 7 - 23 07/05/2025 1:09 AM [facility] Osmolality Calculated 310(H) 275 - 295 mOsm/kg 07/05/2025 1:09 AM [facility] eGFR by CKD-EPI 66(L) >=90 mL/min/1.7 3 m2 07/05/2025 1:09 AM [facility] Comment:Estimated Glomerular Filtration Rate (eGFR) calculated using the CKD-EPI Creatinine Equation (2020), per the National Kid[employer] Foundation and [place] [employer]ph[employer] recommendations. Blood BLOOD SPECIMEN / Unknown Venipuncture / Unknown 07/05/2025 12:38 AM [employer]ER 07/05/2025 12:43 AM [facility] us Gregg Swenson DO LAB - CHEMISTRY ORDERABLES F inal Result [facility] [address] [place] [address], [facility] [phone] * (ABNORMAL) CBC W/O DIFFERENTIAL (07/05/2025 12:38 AM [facility]) WBC 15.6(H) 4.0 - 10.7 x10E9/L 07/05/2025 12:47 AM [facility] RBC Count 2.90(L) 4.30 - 5.80 x10E12/L 07/05/2025 12:47 AM [facility] Hemoglobin 9.4(L) 13.3 - 17.5 g/dL 07/05/2025 12:47 AM [facility] Hematocrit 28.5(L) 38.7 - 51.1 % 07/05/2025 12:47 AM [facility] MCV 98.3(H) 80.0 - 98.0 fL 07/05/2025 12:47 AM [facility] MCH 32.4 26.7 - 33.6 pg 07/05/2025 12:47 AM [facility] MCHC 33.0 31.7 - 36.3 g/dL 07/05/2025 12:47 AM [facility] RDW-CV 14.6 11.3 - 14.8 % 07/05/2025 12:47 AM [facility] Platelet Count 264 150 - 420 x10E9/L 07/05/2025 12:47 AM [facility] MPV 11.2 7.8 - 11.4 fL 07/05/2025 12:47 AM [facility] Blood BLOOD SPECIMEN / Unknown Venipuncture / Unknown 07/05/2025 12:38 AM [employer] 07/05/2025 12:44 AM [employer] CHECKER us Gregg Swenson DO LAB - HEMATOLOGY ORDERABLES Final Result [address] [address], [place] [phone] * (ABNORMAL) GLUCOSE - POINT OF CARE (07/05/2025 12:30 AM E[employer] AND CHECKER) Pathologist [facility] Glucose WB/POC 131(H) 70 - 99 mg/dL 07/05/2025 12:35 AM [facility] Specimen Type Arterial/C apillary 07/05/2025 12:35 AM [facility] Blood BLOOD SPECIMEN / Unknown 07/05/2025 12:30 AM [employer]ER 07/05/2025 12:35 AM [employer] CHECKER us Erinn Murillo MD LAB - POINT OF CARE ORDERABLE S Final Result [address] [address], [place] [phone] * (ABNORMAL) GLUCOSE - POINT OF CARE (07/05/2025 12:27 AM [employer]ER) Glucose WB/POC 132(H) 70 - 99 mg/dL 07/05/2025 12:35 AM [employer] CHECKER [facility] Specimen Type Arterial/C apillary 07/05/2025 12:35 AM [employer] CHECKER [facility] Blood BLOOD SPECIMEN / Unknown 07/05/2025 12:27 AM [employer]ER 07/05/2025 12:35 AM [employer] CHECKER us Erinn Murillo MD LAB - POINT OF CARE ORDERABLE S Final Result [facility] [address] [place] [address], [place] [phone] * GLUCOSE - POINT OF CARE (07/04/2025 8:08 PM E[employer] CHECKER) Glucose WB/POC 98 70 - 99 mg/dL 07/04/2025 8:12 PM [employer] CHECKER [facility] Specimen Type Arterial/C apillary 07/04/2025 8:12 PM [employer] CHECKER [facility] Blood BLOOD SPECIMEN / Unknown 07/04/2025 8:08 PM [employer]ER 07/04/2025 8:12 PM [employer] CHECKER us Erinn Murillo MD LAB - POINT OF CARE ORDERABLE S Final Result [facility] [address] [place] [address], [place] [phone] * GLUCOSE - POINT OF CARE (07/04/2025 4:43 PM E[employer] CHECKER) Glucose WB/POC 98 70 - 99 mg/dL 07/05/2025 8:57 AM [facility] Specimen Type Arterial/C apillary 07/05/2025 8:57 AM [employer] CHECKER [facility] Blood BLOOD SPECIMEN / Unknown 07/04/2025 4:43 PM [employer]ER 07/05/2025 8:57 AM [employer] CHECKER us Erinn Murillo MD LAB - POINT OF CARE ORDERABLE S Final Result Performing Organization Address City/[facility]/ZIP Co de Phone Number [address] [address], [facility] [phone] * (ABNORMAL) VANCOMYCIN LEVEL TROUGH (07/04/2025 3:29 PM [employer]ER) Vancomycin Trough 9.7(L) 10.0 - 20.0 ug/mL 07/04/2025 4:21 PM [employer]ER [facility] Blood BLOOD SPECIMEN / Unknown Venipuncture / Unknown 07/04/2025 3:29 PM [employer]ER 07/04/2025 3:31 PM [employer] AND CHECKER Narrative [facility] - 07/04/2025 4:21 PM E[employer] AND CHECKER See institution protocol. us Erinn Murillo MD LAB - CHEMISTRY ORDERABLES Fi nal Result Performing Organization Address [facility]/ZIP Co de Phone Number [address] [address], [facility] [phone] * XR Abdomen Kub Portable (07/04/2025 2:25 PM E[employer] CHECKER) Anatomical Region Laterality Modality Abdomen Digital Radiogra phy 07/04/2025 9:15 PM [employer]ER Narrative 07/04/2025 9:15 PM [employer]ER PROCEDURE: XR ABDOMEN KUB PORTABLE, DATE/TIME OF EXAM: 07/04/2025 2:25 PM, LOCATION [facility] INDICATION: K43.7: Ventral hernia with gangrene ADDITIONAL CLINICAL INFORMATION: Ordering Provider Reason For Exam: NG tube positioning Technologist Note: Additional: COMPARISON: None. Nasogastric tube is in the stomach. Partially visualized distended loops of small bowel. > Interpreting Provider: Matias Finley MD on 07/04/2025 9:15 PM Procedure Note Matias Finley MD - 07/04/2025 PROCEDURE: XR ABDOMEN KUB PORTABLE, DATE/TIME OF EXAM: 07/04/2025 2:25PM, LOCATION [facility] INDICATION: K43.7: Ventral hernia with gangrene ADDITIONAL CLINICAL INFORMATION: Ordering Provider Reason For Exam: NG tube positioning Technologist Note: Additional: COMPARISON: None. Nasogastric tube is in the stomach. Partially visualized distended loopsof small bowel. > Interpreting Provider: Matias Finley MD on 07/04/2025 9:15 PM us Erinn Murillo MD DIAGNOSTIC IMAGING ORDERABLES Final Result * (ABNORMAL) GLUCOSE - POINT OF CARE (07/04/2025 1:44 PM [employer]) Glucose WB/POC 109(H) 70 - 99 mg/dL 07/04/2025 1:49 PM [employer] [facility] Specimen Type Arterial/C apillary 07/04/2025 1:49 PM [employer] [facility] Blood BLOOD SPECIMEN / Unknown 07/04/2025 1:44 PM [employer] 07/04/2025 1:49 PM [employer] us Erinn Murillo MD LAB - POINT OF CARE ORDERABLE S Final Result Performing Organization Address City/State/[facility] Co de Phone Number [address] [address], [facility] [phone] * CT Chest Wo Contrast (07/04/2025 9:44 AM [employer]) Anatomical Region Laterality Modality Chest Computed Tomogra phy 07/04/2025 9:50 AM [employer] Impressions 07/04/2025 9:55 AM [employer] IMPRESSION: Atelectasis of the lower lobe of the left lung and dependent upper lobe associated with the decrease volume of the left hemithorax and leftward shift of the heart and mediastinum. Mild dependent atelectasis in the right lung base. Partially imaged upper abdomen shows ventral hernia. > Interpreting Provider: Tray Jarvis MD on 07/04/2025 9:55 AM Narrative 07/04/2025 9:55 AM [employer] PROCEDURE: CT CHEST WO CONTRAST DATE/TIME OF EXAM: 07/04/2025 9:45 AM CLINICAL INFORMATION: None relevant/not provided if blank. Indication: K43.7: Ventral hernia with gangrene Additional History: COMPARISON: None. TECHNIQUE: CT of the chest was performed without intravenous contrast utilizing standard protocol. CT dose reduction technique was used, including Automated Exposure Control. FINDINGS: Central tracheobronchial tree: Endotracheal tube and NG tube are noted, distal end of the endotracheal tube is in the distal trachea. Lungs: Atelectasis of the lower lobe of the left lung and dependent upper lobe, causing decreased volume of the left hemithorax and leftward shift of the heart and mediastinum. Mild dependent atelectasis noted in the lower lobe of the right lung. Pleura: No significant pleural effusion. No pneumothorax. Heart: Heart is not enlarged. No significant pericardial effusion. Atherosclerotic calcification noted in the thoracic and abdominal aorta. Digna/mediastinum: No abnormally enlarged hilar or mediastinal lymph nodes by noncontrast technique. Bones: Degenerative changes in the spine. Partially imaged upper abdomen shows ventral hernia. Subcutaneous air is noted in the abdominal wall. Upper abdomen: No abnormality in the visualized upper abdomen. Procedure Note Tray Jarvis MD - 07/04/2025 PROCEDURE: CT CHEST WO CONTRAST DATE/TIME OF EXAM: 07/04/2025 9:45 AM CLINICAL INFORMATION: None relevant/not provided if blank. Indication: K43.7: Ventral hernia with gangrene Additional History: COMPARISON: None. TECHNIQUE: CT of the chest was performed without intravenous contrast utilizing standard protocol. CT dose reduction technique was used, including Automated ExposureControl. FINDINGS: Central tracheobronchial tree: Endotracheal tube and NG tube are noted, distal end of the endotracheal tube is in the distal trachea. Lungs: Atelectasis of the lower lobe of the left lung and dependentupper lobe, causing decreased volume of the left hemithorax and leftward shiftof the heart and mediastinum. Mild dependent atelectasis noted in the lower lobe of the right lung. Pleura: No significant pleural effusion. No pneumothorax. Heart: Heart is not enlarged. No significant pericardial effusion. Atherosclerotic calcification noted in the thoracic and abdominal aorta. Digna/mediastinum: No abnormally enlarged hilar or mediastinal lymphnodes by noncontrast technique. Bones: Degenerative changes in the spine. Partially imaged upper abdomen shows ventral hernia. Subcutaneous air is noted in the abdominal wall. Upper abdomen: No abnormality in the visualized upper abdomen. IMPRESSION: Atelectasis of the lower lobe of the left lung and dependent upper lobe associated with the decrease volume of the left hemithorax and leftward shift of the heart and mediastinum. Mild dependent atelectasis in theright lung base. Partially imaged upper abdomen shows ventral hernia. > Interpreting Provider: Tray Jarvis MD on 59:55 AM Erinn Murillo MD CT ORDERABLES Final Result * (ABNORMAL) GLUCOSE - POINT OF CARE (07/04/2025 8:15 AM [employer]) Glucose WB/POC 108(H) 70 - 99 mg/dL 07/04/2025 8:17 AM [employer] [facility] Specimen Type Arterial/C apillary 07/04/2025 8:17 AM [employer] [facility] Blood BLOOD SPECIMEN / Unknown 07/04/2025 8:15 AM [employer] 07/04/2025 8:17 AM [employer] Erinn Murillo MD LAB - POINT OF CARE ORDERABLE S Final Result [facility] [address] [place] [address], [facility] [phone] * XR Chest 1Vw Portable (07/04/2025 4:23 AM [employer]) Anatomical Region Laterality Modality Chest Digital Radiogra phy 07/04/2025 11:1 8 AM [employer] Narrative 07/04/2025 3:29 PM [employer] PROCEDURE: XR CHEST 1VW PORTABLE, DATE/TIME OF EXAM: 07/04/2025 4:23 AM, LOCATION [facility] INDICATION: K43.7: Ventral hernia with gangrene ADDITIONAL CLINICAL INFORMATION: Ordering Provider Reason For Exam: vent Technologist Note: Additional: COMPARISON: Chest radiograph 07/03/2025 CT chest 07/04/2025. FINDINGS/IMPRESSION: Tubes/lines: *Endotracheal tube terminates in the distal trachea approximately 3 cm above the cm. *Nasogastric tube courses below the left hemidiaphragm but the tip exits the field of view. *Right internal jugular accessed central venous catheter terminates in the right brachiocephalic vein near the SVC. Worsened opacification in the left lung with aeration only of a small portion of the left lung at the apex, representing marked atelectasis that is further delineated on same-day CT chest. There is mild atelectasis within the right lung base. There is no pneumothorax or pleural effusion (based on review of the CT). No acute osseous abnormalities. Report dictated by Nicky Herrera MD (executive vice president business development). > Dictated by Disc Recordist I, Ivis Waller MD have personally reviewed and interpreted this examination/study. > Interpreting Provider: Ivis Waller MD on 07/04/2025 3:29 PM Procedure Note Ivis Waller MD - 07/04/2025 PROCEDURE: XR CHEST 1VW PORTABLE, DATE/TIME OF EXAM: 07/04/2025 4:23AM, LOCATION [facility] INDICATION: K43.7: Ventral hernia with gangrene ADDITIONAL CLINICAL INFORMATION: Ordering Provider Reason For Exam: vent Technologist Note: Additional: COMPARISON: Chest radiograph 07/03/2025 CT chest 07/04/2025. FINDINGS/IMPRESSION: Tubes/lines: *Endotracheal tube terminates in the distal trachea approximately 3 cm above the cm. *Nasogastric tube courses below the left hemidiaphragm but the tip exits the field of view. *Right internal jugular accessed central venous catheter terminates inthe right brachiocephalic vein near the SVC. Worsened opacification in the left lung with aeration only of a small portion of the left lung at the apex, representing marked atelectasisthat is further delineated on same-day CT chest. There is mild atelectasis within the right lung base. There is no pneumothorax or pleural effusion (based on review of the CT). No acute osseous abnormalities. Report dictated by Nicky Herrera MD (executive vice president business development). > Dictated by Disc Recordist I, Ivis Waller MD have personally reviewed and interpreted this examination/study. > Interpreting Provider: Ivis Waller MD on 07/04/2025 3:29 PM Erinn Murillo MD DIAGNOSTIC IMAGING ORDERABLES Final Result * (ABNORMAL) GLUCOSE - POINT OF CARE (07/04/2025 4:08 AM [employer]) Glucose WB/POC 114(H) 70 - 99 mg/dL 07/04/2025 4:09 AM [facility] Specimen Type Arterial/C apillary 07/04/2025 4:09 AM [facility] Blood BLOOD SPECIMEN / Unknown 07/04/2025 4:08 AM [employer] 07/04/2025 4:09 AM [employer] us Erinn Murillo MD LAB - POINT OF CARE ORDERABLE S Final Result [address] [address], [place] [phone] * (ABNORMAL) GLUCOSE - POINT OF CARE (07/03/2025 11:32 PM [employer]) Glucose WB/POC 114(H) 70 - 99 mg/dL 07/03/2025 11:33 PM [facility] Specimen Type Arterial/C apillary 07/03/2025 11:33 PM [facility] Blood BLOOD SPECIMEN / Unknown 07/03/2025 11:32 PM [employer] 07/03/2025 11:33 PM [employer] us Erinn Murillo MD LAB - POINT OF CARE ORDERABLE S Final Result Performing Organization Address [facility]/ZIP Co de Phone Number [address] [address], [place] [phone] * (ABNORMAL) BLOOD GASES ART + COOX PANEL (07/03/2025 11:32 PM [employer]) pH Arterial 7.39 7.35 - 7.45 pH 07/03/2025 11:42 PM [facility] pO2 Arterial 120(H) 80 - 100 mmHg 07/03/2025 11:42 PM [facility] pCO2 Arterial 43 35 - 45 mmHg 11:42 PM [facility] HCO3 Arterial 26.0 20.0 - 30.0 mmol/L 07/03/2025 11:42 PM [facility] BE Arterial 0.8 -2.0 - 2.0 mmol/L 07/03/2025 11:42 PM [facility] Oxyhemoglobin Arterial 97.1 % 07/03/2025 11:42 PM [facility] Dexoyhemoglobin (HHB) % <1.0 % 07/03/2025 11:42 PM [facility] Methemoglobin 0.9 0.0 - 2.0 % 07/03/2025 11:42 PM [facility] Carboxyhemoglobin 1.1 0.0 - 2.0 % 2024 11:42 PM [facility] O2 Content Arterial 14.0 Interpret within clinical context ml/dL 07/03/2025 11:42 PM [facility] Hemoglobin by COOX 10.1(L) 12.0 - 17.6 g/dL 07/03/2025 11:42 PM [facility] O2 Saturation Arterial 99 90 - 100 % 07/03/2025 11:42 PM [facility] FI O2 Arterial 40.0 % 07/03/2025 11:42 PM [facility] Blood, arterial ARTERIAL BLOOD SPECIMEN / Unknown Arterial Puncture / Unknown 07/03/2025 11:32 PM [employer] 07/03/2025 11:36 PM [employer]ER Narrative [facility] - 07/03/2025 11:42 PM [employer] Carboxyhemoglobin Normal Concentration: Non-smokers: 0-2%; Smokers: 0-9%; Toxic: >20% Erinn Murillo MD LAB - BLOOD GASES ORDERABLES Final Result Performing Organization Address City/State/[facility] Co de Phone Number [facility] [address] [place] [address], [facility] [phone] * PHOSPHORUS BLOOD (07/03/2025 11:32 PM [employer]) Phosphorus 3.7 2.8 - 5.1 mg/dL 07/04/2025 12:17 AM [facility] Blood BLOOD SPECIMEN / Unknown Venipuncture / Unknown 07/03/2025 11:32 PM [employer] 07/03/2025 11:45 PM [employer] Kamaljit Nicole MD LAB - CHEMISTRY ORDERABLES Fin al Result [address] [address], [place] [phone] * (ABNORMAL) MAGNESIUM BLOOD (07/03/2025 11:32 PM [employer]) Magnesium 3.1(H) 1.6 - 2.6 mg/dL 07/04/2025 12:17 AM [employer] [facility] Blood BLOOD SPECIMEN / Unknown Venipuncture / Unknown 07/03/2025 11:32 PM [employer] 07/03/2025 11:45 PM [employer]ER Gregg Swenson DO LAB - CHEMISTRY ORDERABLES F inal Result Performing Organization Address [facility] Co de Phone Number [address] [address], [facility] [phone] * (ABNORMAL) CALCIUM IONIZED WHOLE BLOOD (07/03/2025 11:32 PM [employer]) Calcium Ionized 1.17 mmol/L 07/03/2025 11:42 PM [employer]ER [facility] pH 7.39 7.35 - 7.45 pH 07/03/2025 11:42 PM [facility] Ionized Calcium pH Adjusted 1.17(L) 1.19 - 1.34 mmol/L 07/03/2025 11:42 PM [employer] [facility] Blood BLOOD SPECIMEN / Unknown Venipuncture / Unknown 07/03/2025 11:32 PM [employer] 07/03/2025 11:36 PM [employer] Gregg Swenson DO LAB - CHEMISTRY ORDERABLES F inal Result Performing Organization Address City/[facility]/ZIP Co de Phone Number [address] [address], [place] [phone] * (ABNORMAL) BASIC METABOLIC PANEL (CALCIUM TOTAL) (07/03/2025 11:32 PM [employer]) BUN 45(H) 7 - 26 mg/dL 07/04/2025 12:17 AM [facility] Creatinine 1.33(H) 0.71 - 1.16 mg/dL 07/04/2025 12:17 AM [facility] Sodium 142 136 - 145 mmol/L 07/04/2025 12:17 AM [facility] Potassium 3.6 3.5 - 4.5 mmol/L 07/04/2025 12:17 AM [facility] Chloride 109(H) 98 - 107 mmol/L 07/04/2025 12:17 AM [facility] CO2 25 22 - 29 mmol/L 07/04/2025 12:17 AM [facility] Glucose 108(H) 70 - 99 mg/dL 07/04/2025 12:17 AM [facility] Calcium 8.2(L) 8.4 - 10.2 mg/dL 07/04/2025 12:17 AM [facility] Anion Gap 8 6 - 16 07/04/2025 12:17 AM [facility] BUN/Creatinine Ratio 34(H) 7 - 23 07/04/2025 12:17 AM [facility] Osmolality Calculated 306(H) 275 - 295 mOsm/kg 07/04/2025 12:17 AM [facility] eGFR by CKD-EPI 59(L) >=90 mL/min/1.7 3 m2 07/04/2025 12:17 AM [facility] Comment:Estimated Glomerular Filtration Rate (eGFR) calculated using the CKD-EPI Creatinine Equation (2020), per the National Kidney Foundation and [place] [employer] Neph[employer] recommendations. Blood BLOOD SPECIMEN / Unknown Venipuncture / Unknown 07/03/2025 11:32 PM [employer] 07/03/2025 11:45 PM [employer] us Gregg Swenson DO LAB - CHEMISTRY ORDERABLES F inal Result [facility] [address] [place] [address], [facility] [phone] * (ABNORMAL) CBC W/O DIFFERENTIAL (07/03/2025 11:32 PM [employer]) WBC 15.5(H) 4.0 - 10.7 x10E9/L 07/03/2025 11:53 PM [facility] RBC Count 2.88(L) 4.30 - 5.80 x10E12/L 07/03/2025 11:53 PM [facility] Hemoglobin 9.4(L) 13.3 - 17.5 g/dL 07/03/2025 11:53 PM [facility] Hematocrit 28.9(L) 38.7 - 51.1 % 07/03/2025 11:53 PM [facility] MCV 100.3(H) 80.0 - 98.0 fL 07/03/2025 11:53 PM [facility] MCH 32.6 26.7 - 33.6 pg 07/03/2025 11:53 PM [facility] MCHC 32.5 31.7 - 36.3 g/dL 07/03/2025 11:53 PM [facility] RDW-CV 14.3 11.3 - 14.8 % 07/03/2025 11:53 PM [facility] Platelet Count 221 150 - 420 x10E9/L 07/03/2025 11:53 PM [facility] MPV 10.9 7.8 - 11.4 fL 07/03/2025 11:53 PM [facility] Blood BLOOD SPECIMEN / Unknown Venipuncture / Unknown 07/03/2025 11:32 PM [employer] 07/03/2025 11:45 PM [facility] us Gregg Swenson DO LAB - HEMATOLOGY ORDERABLES Final Result [facility] [address] [place] [address], [facility] [phone] * (ABNORMAL) GLUCOSE - POINT OF CARE (07/03/2025 8:00 PM [employer]) Glucose WB/POC 132(H) 70 - 99 mg/dL 07/03/2025 8:03 PM [facility] Specimen Type Arterial/C apillary 07/03/2025 8:03 PM [facility] Blood BLOOD SPECIMEN / Unknown 07/03/2025 8:00 PM [employer] 07/03/2025 8:03 PM [employer] us Erinn Murillo MD LAB - POINT OF CARE ORDERABLE S Final Result Performing Organization Address City/[facility]/ZIP Co de Phone Number [address] [address], [place] [phone] * (ABNORMAL) GLUCOSE - POINT OF CARE (07/03/2025 5:08 PM [employer]) Glucose WB/POC 130(H) 70 - 99 mg/dL 07/03/2025 5:13 PM [facility] Specimen Type Arterial/C apillary 07/03/2025 5:13 PM [facility] Blood BLOOD SPECIMEN / Unknown 07/03/2025 5:08 PM [employer] 07/03/2025 5:13 PM [employer] us Erinn Murillo MD LAB - POINT OF CARE ORDERABLE S Final Result Performing Organization Address [facility]/ZIP Co de Phone Number [address] [address], [place] [phone] * (ABNORMAL) BASIC METABOLIC PANEL (CALCIUM TOTAL) (07/03/2025 1:31 PM [employer]) BUN 51(H) 7 - 26 mg/dL 07/03/2025 2:05 PM [facility] Creatinine 1.41(H) 0.71 - 1.16 mg/dL 07/03/2025 2:05 PM [facility] Sodium 140 136 - 145 mmol/L 07/03/2025 2:05 PM [facility] Potassium 3.9 3.5 - 4.5 mmol/L 07/03/2025 2:05 PM [facility] Chloride 108(H) 98 - 107 mmol/L 07/03/2025 2:05 PM [facility] CO2 24 22 - 29 mmol/L 07/03/2025 2:05 PM [facility] Glucose 142(H) 70 - 99 mg/dL 07/03/2025 2:05 PM [facility] Calcium 8.5 8.4 - 10.2 mg/dL 07/03/2025 2:05 PM [facility] Anion Gap 8 6 - 16 07/03/2025 2:05 PM [facility] BUN/Creatinine Ratio 36(H) 7 - 23 07/03/2025 2:05 PM [facility] Osmolality Calculated 306(H) 275 - 295 mOsm/kg 07/03/2025 2:05 PM [facility] eGFR by CKD-EPI 55(L) >=90 mL/min/1.7 3 m2 07/03/2025 2:05 PM [facility] Comment:Estimated Glomerular Filtration Rate (eGFR) calculated using the CKD-EPI Creatinine Equation (2020), per the National Kidney Foundation and [place] [employer] Neph[employer] recommendations. Blood BLOOD SPECIMEN / Unknown Venipuncture / Unknown 07/03/2025 1:31 PM [employer] 07/03/2025 1:36 PM [facility] us Erinn Murillo MD LAB - CHEMISTRY ORDERABLES Fi nal Result [facility] [address] [place] [address], [facility] [phone] * (ABNORMAL) CBC W/O DIFFERENTIAL (07/03/2025 1:31 PM [facility]) WBC 17.9(H) 4.0 - 10.7 x10E9/L 07/03/2025 1:46 PM [facility] RBC Count 2.86(L) 4.30 - 5.80 x10E12/L 07/03/2025 1:46 PM [facility] Hemoglobin 9.4(L) 13.3 - 17.5 g/dL 07/03/2025 1:46 PM [facility] Hematocrit 29.3(L) 38.7 - 51.1 % 07/03/2025 1:46 PM [facility] MCV 102.4(H) 80.0 - 98.0 fL 07/03/2025 1:46 PM [facility] MCH 32.9 26.7 - 33.6 pg 07/03/2025 1:46 PM [facility] MCHC 32.1 31.7 - 36.3 g/dL 07/03/2025 1:46 PM [facility] RDW-CV 14.5 11.3 - 14.8 % 07/03/2025 1:46 PM [facility] Platelet Count 246 150 - 420 x10E9/L 07/03/2025 1:46 PM [facility] MPV 10.9 7.8 - 11.4 fL 07/03/2025 1:46 PM [facility] Blood BLOOD SPECIMEN / Unknown Venipuncture / Unknown 07/03/2025 1:31 PM [employer] 07/03/2025 1:36 PM [facility] us Erinn Murillo MD LAB - HEMATOLOGY ORDERABLES F inal Result [facility] [address] [place] [address], [facility] [phone] * (ABNORMAL) BLOOD GASES ART + COOX PANEL (07/03/2025 1:31 PM [employer]) pH Arterial 7.29(L) 7.35 - 7.45 pH 07/03/2025 1:39 PM [facility] pO2 Arterial 167(H) 80 - 100 mmHg 07/03/2025 1:39 PM [facility] pCO2 Arterial 46(H) 35 - 45 mmHg 1:39 PM [facility] HCO3 Arterial 22.1 20.0 - 30.0 mmol/L 07/03/2025 1:39 PM [facility] BE Arterial -4.4(L) -2.0 - 2.0 mmol/L 07/03/2025 1:39 PM [facility] Oxyhemoglobin Arterial 98.0 % 07/03/2025 1:39 PM [facility] Dexoyhemoglobin (HHB) % <1.0 % 07/03/2025 1:39 PM [facility] Methemoglobin <0.8 0.0 - 2.0 % 07/03/2025 1:39 PM [facility] Carboxyhemoglobin 1.8 0.0 - 2.0 % 2024 1:39 PM [facility] O2 Content Arterial 13.7 Interpret within clinical context ml/dL 07/03/2025 1:39 PM [facility] Hemoglobin by COOX 9.7(L) 12.0 - 17.6 g/dL 07/03/2025 1:39 PM [facility] O2 Saturation Arterial 100 90 - 100 % 07/03/2025 1:39 PM [facility] FI O2 Arterial 55.0 % 07/03/2025 1:39 PM [facility] Blood, arterial ARTERIAL BLOOD SPECIMEN / Unknown Arterial Puncture / Unknown 07/03/2025 1:31 PM [employer] 07/03/2025 1:34 PM [employer] [facility] - 07/03/2025 1:39 PM [employer] Carboxyhemoglobin Normal Concentration: Non-smokers: 0-2%; Smokers: 0-9%; Toxic: >20% Seb Sanchez MD LAB - BLOOD GASES ORDERABLES F inal Result [address] [address], [facility] [phone] * XR Abdomen Kub Portable (07/03/2025 10:17 AM [employer]) Anatomical Region Laterality Modality Abdomen Digital Radiogra phy 07/03/2025 10:1 9 AM [employer] Impressions 07/03/2025 12:10 PM [employer] IMPRESSION: 1.Nonobstructive bowel gas pattern. 2.Left sided pleural effusion with left lower lung consolidation and atelectasis. Report dictated by Damir rFances MD > Dictated by Disc Recordist I, Serjio Bosch MD have personally reviewed and interpreted this examination/study. > Interpreting Provider: Serjio Bosch MD on 07/03/2025 12:10 PM Narrative 07/03/2025 12:10 PM [employer] PROCEDURE: XR ABDOMEN KUB PORTABLE, DATE/TIME OF EXAM: 07/03/2025 10:18 AM, LOCATION [facility] INDICATION: K43.6: Incarcerated ventral hernia ADDITIONAL CLINICAL INFORMATION: Ordering Provider Reason For Exam: surgery Technologist Note: Additional: COMPARISON: Abdomen radiograph from 07/01/2025 performed at 1156 hours. FINDINGS: There is no evident gaseous dilatation of small or large bowel.Pneumoperitoneum cannot be excluded on this supine exam.Nasogastric/orogastric tube terminates superimposing the fundal/body region of the stomach. Left sided pleural effusion with left lower lung consolidation and atelectasis atelectasis noted. Procedure Note Serjio Bosch MD - 07/03/2025 PROCEDURE: XR ABDOMEN KUB PORTABLE, DATE/TIME OF EXAM: 07/03/2025 10:18 AM, LOCATION [facility] INDICATION: K43.6: Incarcerated ventral hernia ADDITIONAL CLINICAL INFORMATION: Ordering Provider Reason For Exam: surgery Technologist Note: Additional: COMPARISON: Abdomen radiograph from 07/01/2025 performed at 1156 hours. FINDINGS: There is no evident gaseous dilatation of small or large bowel.Pneumoperitoneum cannot be excluded on this supine exam.Nasogastric/orogastric tube terminates superimposing thefundal/body region of the stomach. Left sided pleural effusion with left lower lung consolidation and atelectasis atelectasis noted. IMPRESSION: 1.Nonobstructive bowel gas pattern. 2.Left sided pleural effusion with left lower lung consolidation and atelectasis. Report dictated by Damir Frances MD > Dictated by Disc Recordist I, Serjio Bosch MD have personally reviewed and interpreted this examination/study. > Interpreting Provider: Serjio Bosch MD on 07/03/2025 12:10 PM us Erinn Murillo MD DIAGNOSTIC IMAGING ORDERABLES Final Result * PATHOLOGY TISSUE (07/03/2025 8:49 AM [employer]) Case Report Surgical Pathology Report Case: [id number] Authorizing Provider: Erinn Murillo MD Collected: 07/03/2025 08:49 AM Ordering Location: [facility] ICU Received: 07/03/2025 10:55 AM Pathologist: Jackie Tomlin MD Specimen: Small Bowel, small bowel 07/04/2025 12:57 PM [employer] [facility] PATHOLOGY LAB Final Diagnosis Small bowel, resection (A) - Portion of small bowel with reactive changes - Serosal adhesions and serositis - Margins of resection with viable mucosa 07/04/2025 12:57 PM [facility] PATHOLOGY LAB at 1257 [employer] Microscopic Description and Comment Microscopic examination substantiates the final diagnosis. 07/04/2025 12:57 PM [facility] Clinical History ventral hernia 07/04/2025 12:57 PM [facility] Gross Description The requisition and specimen(s) are identified with the patient's name Serjio Sanderson. Received in formalin, specimen A, is an unoriented short segment of small bowel, 6.0 cm in length and 3.5 cm in diameter. The specimen displays 2 opposing stapled resection margins. The serosal surface is pink-maria, smooth and glistening. The attached mesentery is grossly unremarkable and dense 2.5 cm from the small bowel. The normal appearing mucosal folds are pink and glistening. Sectioning through the specimen reveals grossly unremarkable layers of normal bowel and soft yellow glistening cut surfaces. No discrete masses or lesions are identified. The specimen is representatively submitted as follows: A1-A2: Opposing resection margins, en face A3-A4: Longitudinal sections of mucosa detached fibroadipose tissue./ANC 07/04/2025 12:57 PM [facility] PATH[facility] Pathologist Location at [facility] 07/04/2025 12:57 PM [facility] Disclaimer The performance characteristics of all immunohistochemical and indirect immunofluorescence stains (if any) cited in this report were determined by the Histopathology Laboratory of [facility]. Some of these tests were developed by our own laboratory and have not been cleared or approved by the US Food and Drug Administration. The FDA does not require this test to go through premarket FDA review. These tests are used for clinical purposes. They should not be regarded as investigational or for research. This laboratory is certified under the Clinical Laboratory Improvement Amendments (CLIA) as qualified to perform high complexity clinical laboratory testing. This case has been personally reviewed and interpreted by the attending (teaching) pathologist. 07/04/2025 12:57 PM [facility] Embedded Images 07/04/2025 12:57 PM [facility] PATH[facility] Resection without Tumor SMALL BOWEL RESECTION SPECIMEN / Unknown 07/03/2025 8:49 AM [employer] 07/03/2025 10:55 AM [employer] Comment:Pre-op diagnosis: Incarcerated ventral hernia [K43.6] Erinn Murillo MD LAB - PATHOLOGY/CYTOLOGY BLAYNE WEBER Final Result [facility] PATH[facility] [address] [phone] * (ABNORMAL) BLOOD GAS+COOX+LYTES+METAB ARTERIAL POCT (07/03/2025 8:29 AM [employer]) pH Arterial 7.33(L) 7.35 - 7.45 pH 07/03/2025 8:29 AM [facility] pO2 Arterial 107(H) 80 - 100 mmHg 07/03/2025 8:29 AM [facility] pCO2 Arterial 49(H) 35 - 45 mmHg 8:29 AM [facility] HCO3 Arterial 25.8 20.0 - 30.0 mmol/L 07/03/2025 8:29 AM [facility] BE Arterial -0.5 -2.0 - 2.0 mmol/L 07/03/2025 8:29 AM [facility] Oxyhemoglobin Arterial 97.2 % 07/03/2025 8:29 AM [facility] Dexoyhemoglobin (HHB) % 1.5 % 07/03/2025 8:29 AM [facility] Methemoglobin <0.8 0.0 - 2.0 % 07/03/2025 8:29 AM [facility] Carboxyhemoglobin 1.1 0.0 - 2.0 % 2024 8:29 AM [facility] Comment:Carboxyhemoglobin No rmal Concentration: Non-smokers: 0-2%; Smokers: 0- 9%; Toxic: >20% O2 Content Arterial 14.7 Interpret within clinical context ml/dL 07/03/2025 8:29 AM [facility] Hemoglobin by COOX 10.6(L) 12.0 - 17.6 g/dL 07/03/2025 8:29 AM [facility] O2 Saturation Arterial 99 90 - 100 % 07/03/2025 8:29 AM [facility] Sodium Whole Blood 137 135 - 145 mmol/L 07/03/2025 8:29 AM [facility] Potassium Whole Blood 4.0 3.5 - 5.5 mmol/L 07/03/2025 8:29 AM [facility] Chloride WB 105 78 - 107 mmol/L 07/03/2025 8:29 AM [facility] Calcium Ionized 1.20 mmol/L 8:29 AM [facility] Ionized Calcium pH Adjusted 1.17(L) 1.19 - 1.34 mmol/L 07/03/2025 8:29 AM [facility] Anion Gap (AG) Arterial 6 6 - 16 mmol/L 07/03/2025 8:29 AM [facility] Glucose WB 144(H) 70 - 99 mg/dL 07/03/2025 8:29 AM [facility] Lactic Acid Whole Blood 1.1 <=2.0 mmol/L 07/03/2025 8:29 AM [facility] Blood, arterial ARTERIAL BLOOD SPECIMEN / Unknown 07/03/2025 8:29 AM [facility] 07/03/2025 8:30 AM [facility] us Erinn Murillo MD LAB - POINT OF CARE ORDERABLE S Final Result [address] [address], [facility] [phone] * EKG 12-Lead (07/03/2025 6:29 AM [facility]) Ventricular Rate 50 BPM [facility] MUSE QRS Duration ms 164 ms [facility] MUSE Q-T Interval ms 476 ms [facility] MUSE QTC Calculation (Bezet) 433 ms [facility] MUSE Calculated R [place] 21 degrees [facility] MUSE Calculated T [place] -36 degrees [facility] MUSE Interpretation EKG ATRIAL FIBRILLATION WITH SLOW VENTRICULAR RESPONSE NON-SPECIFIC INTRA-VENTRICUL AR CONDUCTION BLOCK CANNOT RULE OUT SEPTAL INFARCT , AGE UNDETERMINED POSSIBLE LATERAL INFARCT , AGE UNDETERMINED ABNORMAL ECG NO PREVIOUS ECGS AVAILABLE Confirmed by JEANNA CHILD DO ([id number]) on 07/04/2025 10:27:18 PM [facility] MUSE 07/03/2025 6:29 AM [employer] 07/04/2025 10:27 PM [employer] us Erinn Murillo MD ECG ORDERABLES Edited Result - Final [facility] MUSE * (ABNORMAL) TRIGLYCERIDES BLOOD (07/03/2025 6:04 AM [employer]) Pathologist [facility] Triglycerides 268(H) <150 mg/dL 07/03/2025 6:35 AM [facility] Comment: ATP III Classification of Triglycerides: <150 mg/dL: Normal 150 - 199 mg/dL: Borderline High 200 - 400 mg/dL: High >500 mg/dL: Very High Blood BLOOD SPECIMEN / Unknown Venipuncture / Unknown 07/03/2025 6:04 AM [employer] 07/03/2025 6:15 AM [employer] us Kamaljit Nicole MD LAB - CHEMISTRY ORDERABLES Fin al Result [address] [address], [facility] [phone] * (ABNORMAL) BLOOD GASES ART + COOX PANEL (07/03/2025 6:04 AM [employer]) pH Arterial 7.29(L) 7.35 - 7.45 pH 07/03/2025 6:11 AM [facility] pO2 Arterial 153(H) 80 - 100 mmHg 07/03/2025 6:11 AM [facility] pCO2 Arterial 47(H) 35 - 45 mmHg 6:11 AM [facility] HCO3 Arterial 22.6 20.0 - 30.0 mmol/L 07/03/2025 6:11 AM [facility] BE Arterial -4.0(L) -2.0 - 2.0 mmol/L 07/03/2025 6:11 AM [facility] Oxyhemoglobin Arterial 97.9 % 07/03/2025 6:11 AM [facility] Dexoyhemoglobin (HHB) % <1.0 % 07/03/2025 6:11 AM [facility] Methemoglobin <0.8 0.0 - 2.0 % 07/03/2025 6:11 AM [facility] Carboxyhemoglobin 1.2 0.0 - 2.0 % 2024 6:11 AM [facility] O2 Content Arterial 14.9 Interpret within clinical context ml/dL 07/03/2025 6:11 AM [facility] Hemoglobin by COOX 10.6(L) 12.0 - 17.6 g/dL 07/03/2025 6:11 AM [facility] O2 Saturation Arterial 99 90 - 100 % 07/03/2025 6:11 AM [facility] FI O2 Arterial 55.0 % 07/03/2025 6:11 AM [facility] Blood, arterial ARTERIAL BLOOD SPECIMEN / Unknown Arterial Puncture / Unknown 07/03/2025 6:04 AM [employer] 07/03/2025 6:07 AM [facility] Narrative [facility] - 07/03/2025 6:11 AM [employer] Carboxyhemoglobin Normal Concentration: Non-smokers: 0-2%; Smokers: 0-9%; Toxic: >20% us Kamaljit Nicole MD LAB - BLOOD GASES ORDERABLES F inal Result [facility] [address] [place] [address], [facility] [phone] * XR Chest 1Vw (07/03/2025 4:23 AM [employer]) Anatomical Region Laterality Modality Chest Digital Radiogra phy 07/03/2025 8:48 AM [employer] Narrative 07/03/2025 1:03 PM [employer] PROCEDURE: XR CHEST 1VW, DATE/TIME OF EXAM: 07/03/2025 4:24 AM, LOCATION [facility] INDICATION: K43.7: Ventral hernia with gangrene ADDITIONAL CLINICAL INFORMATION: Ordering Provider Reason For Exam: ventilated, bronch yesterday Technologist Note: Additional: COMPARISON: Chest radiograph from 07/02/2025. FINDINGS/IMPRESSION: Detail is diminished. *Endotracheal tube terminates in the distal trachea, 1.2 cm above the cm. *Orogastric/nasogastric tube follows the path of the esophagus however the distal tube in the lower thorax is poorly seen. *Right internal jugular vein approach central venous line terminating at the brachiocephalic vein confluence. Unchanged opacification of the left mid and lower lung zones concerning for atelectasis. Cannot exclude superimposed pneumonia. Moderate left-sided pleural effusion. Small patchy atelectasis/airspace disease at the right base is decreased. No right pleural effusion. No pneumothorax. The cardiomediastinal silhouette is stable with atherosclerotic calcifications of the aorta. The visible bony thorax is intact. > Dictated by Damir Frances MD > Dictated by Disc Recordist I, Ivis Waller MD have personally reviewed and interpreted this examination/study. > Interpreting Provider: Ivis Waller MD on 07/03/2025 1:03 PM Procedure Note Ivis Waller MD - 07/03/2025 PROCEDURE: XR CHEST 1VW, DATE/TIME OF EXAM: 07/03/2025 4:24 AM, LOCATION [facility] INDICATION: K43.7: Ventral hernia with gangrene ADDITIONAL CLINICAL INFORMATION: Ordering Provider Reason For Exam: ventilated, bronch yesterday Technologist Note: Additional: COMPARISON: Chest radiograph from 07/02/2025. FINDINGS/IMPRESSION: Detail is diminished. *Endotracheal tube terminates in the distal trachea, 1.2 cm above the cm. *Orogastric/nasogastric tube follows the path of the esophagus howeverthe distal tube in the lower thorax is poorly seen. *Right internal jugular vein approach central venous line terminating at the brachiocephalic vein confluence. Unchanged opacification of the left mid and lower lung zones concerningfor atelectasis. Cannot exclude superimposed pneumonia. Moderate left-sided pleural effusion. Small patchy atelectasis/airspace disease at the right base is decreased. No right pleural effusion. No pneumothorax. The cardiomediastinal silhouette is stable with atherosclerotic calcifications of the aorta. The visible bony thorax is intact. > Dictated by Damir Frances MD > Dictated by Disc Recordist I, Ivis Waller MD have personally reviewed and interpreted this examination/study. > Interpreting Provider: Ivis Waller MD on 07/03/2025 1:03 PM Kamaljit Nicole MD DIAGNOSTIC IMAGING ORDERABLES Final Result * (ABNORMAL) GLUCOSE - POINT OF CARE (07/03/2025 3:40 AM [employer]) Glucose WB/POC 152(H) 70 - 99 mg/dL 07/03/2025 3:43 AM [facility] Specimen Type Arterial/C apillary 07/03/2025 3:43 AM [facility] Blood BLOOD SPECIMEN / Unknown 07/03/2025 3:40 AM [employer] 07/03/2025 3:43 AM [employer] Kamaljit Nicole MD LAB - POINT OF CARE ORDERABLES Final Result [address] [address], [facility] [phone] * (ABNORMAL) BLOOD GASES ART + COOX PANEL (07/03/2025 3:40 AM [employer]) pH Arterial 7.34(L) 7.35 - 7.45 pH 07/03/2025 3:46 AM [facility] pO2 Arterial 93 80 - 100 mmHg 07/03/2025 3:46 AM [facility] pCO2 Arterial 44 35 - 45 mmHg 3:46 AM [facility] HCO3 Arterial 23.7 20.0 - 30.0 mmol/L 07/03/2025 3:46 AM [facility] BE Arterial -2.1(L) -2.0 - 2.0 mmol/L 07/03/2025 3:46 AM [facility] Oxyhemoglobin Arterial 97.3 % 07/03/2025 3:46 AM [facility] Dexoyhemoglobin (HHB) % <1.0 % 07/03/2025 3:46 AM [facility] Methemoglobin <0.8 0.0 - 2.0 % 07/03/2025 3:46 AM [facility] Carboxyhemoglobin 2.2(H) 0.0 - 2.0 % 2024 3:46 AM [facility] O2 Content Arterial 13.7 Interpret within clinical context ml/dL 07/03/2025 3:46 AM [facility] Hemoglobin by COOX 9.9(L) 12.0 - 17.6 g/dL 07/03/2025 3:46 AM [facility] O2 Saturation Arterial 100 90 - 100 % 07/03/2025 3:46 AM [facility] FI O2 Arterial 30.0 % 07/03/2025 3:46 AM [facility] Blood, arterial ARTERIAL BLOOD SPECIMEN / Unknown Arterial Puncture / Unknown 07/03/2025 3:40 AM [employer] 07/03/2025 3:43 AM [employer] Narrative [facility] - 07/03/2025 3:46 AM [employer] Carboxyhemoglobin Normal Concentration: Non-smokers: 0-2%; Smokers: 0-9%; Toxic: >20% us Kamaljit Nicole MD LAB - BLOOD GASES ORDERABLES F inal Result Performing Organization Address City/[facility]/ZIP Co de Phone Number [address] [address], [place] [phone] * VANCOMYCIN LEVEL RANDOM (07/03/2025 3:40 AM [employer]) Pathologist [facility] Vancomycin Random 12.6 Therapeutic Ranges not established for random specimens ug/mL 07/03/2025 4:28 AM [facility] Blood BLOOD SPECIMEN / Unknown Venipuncture / Unknown 07/03/2025 3:40 AM [employer] 07/03/2025 3:43 AM [employer] Narrative [facility] - 07/03/2025 4:28 AM [employer] See institution protocol. us Gregg Swenson DO LAB - CHEMISTRY ORDERABLES F inal Result [address] [address], [place] [phone] * (ABNORMAL) BLOOD GASES ART + COOX PANEL (07/02/2025 11:18 PM [employer]) pH Arterial 7.35 7.35 - 7.45 pH 07/02/2025 11:30 PM [facility] pO2 Arterial 142(H) 80 - 100 mmHg 07/02/2025 11:30 PM [facility] pCO2 Arterial 44 35 - 45 mmHg 11:30 PM [facility] HCO3 Arterial 24.3 20.0 - 30.0 mmol/L 07/02/2025 11:30 PM [facility] BE Arterial -1.4 -2.0 - 2.0 mmol/L 07/02/2025 11:30 PM [facility] Oxyhemoglobin Arterial 97.7 % 07/02/2025 11:30 PM [facility] Dexoyhemoglobin (HHB) % <1.0 % 07/02/2025 11:30 PM [facility] Methemoglobin 0.8 0.0 - 2.0 % 07/02/2025 11:30 PM [facility] Carboxyhemoglobin 1.3 0.0 - 2.0 % 2024 11:30 PM [facility] O2 Content Arterial 14.7 Interpret within clinical context ml/dL 07/02/2025 11:30 PM [facility] Hemoglobin by COOX 10.5(L) 12.0 - 17.6 g/dL 07/02/2025 11:30 PM [facility] O2 Saturation Arterial 100 90 - 100 % 07/02/2025 11:30 PM [facility] FI O2 Arterial 40.0 % 07/02/2025 11:30 PM [facility] Blood, arterial ARTERIAL BLOOD SPECIMEN / Unknown Arterial Puncture / Unknown 07/02/2025 11:18 PM [facility] 07/02/2025 11:21 PM [facility] - 07/02/2025 11:30 PM [facility] Carboxyhemoglobin Normal Concentration: Non-smokers: 0-2%; Smokers: 0-9%; Toxic: >20% us Kamaljit Nicole MD LAB - BLOOD GASES ORDERABLES F inal Result [address] [address], [facility] [phone] * (ABNORMAL) PHOSPHORUS BLOOD (07/02/2025 11:18 PM [employer]) Phosphorus 5.2(H) 2.8 - 5.1 mg/dL 07/02/2025 11:58 PM [employer] [facility] Blood BLOOD SPECIMEN / Unknown Venipuncture / Unknown 07/02/2025 11:18 PM [employer] 07/02/2025 11:28 PM [employer] Kamaljit Nicole MD LAB - CHEMISTRY ORDERABLES Fin al Result [address] [address], [facility] [phone] * (ABNORMAL) MAGNESIUM BLOOD (07/02/2025 11:18 PM [employer]) Pathologist [facility] Magnesium 2.9(H) 1.6 - 2.6 mg/dL 07/02/2025 11:58 PM [employer] [facility] Blood BLOOD SPECIMEN / Unknown Venipuncture / Unknown 07/02/2025 11:18 PM [employer] 07/02/2025 11:28 PM [employer] Gregg Swenson DO LAB - CHEMISTRY ORDERABLES F inal Result [address] [address], [facility] [phone] * (ABNORMAL) CALCIUM IONIZED WHOLE BLOOD (07/02/2025 11:18 PM [employer]) Calcium Ionized 1.12 mmol/L 07/02/2025 11:29 PM [employer] [facility] pH 7.34(L) 7.35 - 7.45 pH 07/02/2025 11:29 PM [employer] [facility] Ionized Calcium pH Adjusted 1.09(L) 1.19 - 1.34 mmol/L 07/02/2025 11:29 PM [employer] [facility] Blood BLOOD SPECIMEN / Unknown Venipuncture / Unknown 07/02/2025 11:18 PM [employer] 07/02/2025 11:21 PM [employer] us Gregg Swenson DO LAB - CHEMISTRY ORDERABLES F inal Result [facility] [address] [place] [address], [facility] [phone] * (ABNORMAL) BASIC METABOLIC PANEL (CALCIUM TOTAL) (07/02/2025 11:18 PM [employer]) BUN 49(H) 7 - 26 mg/dL 07/02/2025 11:58 PM [facility] Creatinine 1.44(H) 0.71 - 1.16 mg/dL 07/02/2025 11:58 PM [facility] Sodium 141 136 - 145 mmol/L 07/02/2025 11:58 PM [facility] Potassium 4.1 3.5 - 4.5 mmol/L 07/02/2025 11:58 PM [facility] Chloride 107 98 - 107 mmol/L 07/02/2025 11:58 PM [facility] CO2 24 22 - 29 mmol/L 07/02/2025 11:58 PM [facility] Glucose 134(H) 70 - 99 mg/dL 07/02/2025 11:58 PM [facility] Calcium 8.4 8.4 - 10.2 mg/dL 07/02/2025 11:58 PM [facility] Anion Gap 10 6 - 16 07/02/2025 11:58 PM [facility] BUN/Creatinine Ratio 34(H) 7 - 23 07/02/2025 11:58 PM [facility] Osmolality Calculated 307(H) 275 - 295 mOsm/kg 07/02/2025 11:58 PM [facility] eGFR by CKD-EPI 54(L) >=90 mL/min/1.7 3 m2 07/02/2025 11:58 PM [facility] Comment:Estimated Glomerular Filtration Rate (eGFR) calculated using the CKD-EPI Creatinine Equation (2020), per the National Kidney Foundation and [place] [employer] Neph[employer] recommendations. Blood BLOOD SPECIMEN / Unknown Venipuncture / Unknown 07/02/2025 11:18 PM [employer] 07/02/2025 11:28 PM [employer] us Gregg Swenson DO LAB - CHEMISTRY ORDERABLES F inal Result [facility] [address] [place] [address], [facility] [phone] * (ABNORMAL) CBC W/O DIFFERENTIAL (07/02/2025 11:18 PM [employer]) WBC 17.0(H) 4.0 - 10.7 x10E9/L 07/02/2025 11:33 PM [facility] RBC Count 2.98(L) 4.30 - 5.80 x10E12/L 07/02/2025 11:33 PM [facility] Hemoglobin 9.6(L) 13.3 - 17.5 g/dL 07/02/2025 11:33 PM [facility] Hematocrit 29.6(L) 38.7 - 51.1 % 07/02/2025 11:33 PM [facility] MCV 99.3(H) 80.0 - 98.0 fL 07/02/2025 11:33 PM [facility] MCH 32.2 26.7 - 33.6 pg 07/02/2025 11:33 PM [facility] MCHC 32.4 31.7 - 36.3 g/dL 07/02/2025 11:33 PM [facility] RDW-CV 14.3 11.3 - 14.8 % 07/02/2025 11:33 PM [facility] Platelet Count 279 150 - 420 x10E9/L 07/02/2025 11:33 PM [facility] MPV 10.9 7.8 - 11.4 fL 07/02/2025 11:33 PM [facility] Blood BLOOD SPECIMEN / Unknown Venipuncture / Unknown 07/02/2025 11:18 PM [employer] 07/02/2025 11:27 PM [employer] us Gregg Swenson DO LAB - HEMATOLOGY ORDERABLES Final Result Performing Organization Address City/[facility]/ZIP Co de Phone Number [address] [address], [place] [phone] * (ABNORMAL) GLUCOSE - POINT OF CARE (07/02/2025 11:17 PM [employer]) Glucose WB/POC 132(H) 70 - 99 mg/dL 07/03/2025 3:33 AM [facility] Specimen Type Arterial/C apillary 07/03/2025 3:33 AM [facility] Blood BLOOD SPECIMEN / Unknown 07/02/2025 11:17 PM [employer] 07/03/2025 3:33 AM [employer] Kamaljit Nicole MD LAB - POINT OF CARE ORDERABLES Final Result Performing Organization Address [facility]/ZIP Co de Phone Number [address] [address], [place] [phone] * (ABNORMAL) GLUCOSE - POINT OF CARE (07/02/2025 7:59 PM [employer]) Glucose WB/POC 143(H) 70 - 99 mg/dL 07/02/2025 8:01 PM [facility] Specimen Type Arterial/C apillary 07/02/2025 8:01 PM [facility] Blood BLOOD SPECIMEN / Unknown 07/02/2025 7:59 PM [employer] 07/02/2025 8:00 PM [employer] us Kamaljit Nicole MD LAB - POINT OF CARE ORDERABLES Final Result Performing Organization Address City/[facility]/ZIP Co de Phone Number [address] [address], [place] [phone] * (ABNORMAL) GLUCOSE - POINT OF CARE (07/02/2025 4:11 PM [employer]) Glucose WB/POC 131(H) 70 - 99 mg/dL 07/02/2025 4:12 PM [facility] Specimen Type Arterial/C apillary 07/02/2025 4:12 PM [employer] [facility] Blood BLOOD SPECIMEN / Unknown 07/02/2025 4:11 PM [employer] 07/02/2025 4:12 PM [employer] Kamaljit Nicole MD LAB - POINT OF CARE ORDERABLES Final Result [address] [address], [facility] [phone] * XR Chest 1Vw Portable (07/02/2025 1:47 PM [employer]) Anatomical Region Laterality Modality Chest Digital Radiogra phy 07/02/2025 2:07 PM [employer] Impressions 07/02/2025 2:26 PM [employer] IMPRESSION: 1.Unchanged opacification of the left mid and lower lung zones concerning for atelectasis. Cannot exclude superimposed pneumonia. 2.Moderate left-sided pleural effusion. > Dictated by Damir Frances MD > Dictated by Disc Recordist I, Patricia Black MD have personally reviewed and interpreted this examination/study. > Interpreting Provider: Patricia Black MD on 07/02/2025 2:26 PM Narrative 07/02/2025 2:26 PM [employer] PROCEDURE: XR CHEST 1VW PORTABLE, DATE/TIME OF EXAM: 07/02/2025 1:47 PM, LOCATION [facility] INDICATION: K43.7: Ventral hernia with gangrene ADDITIONAL CLINICAL INFORMATION: Ordering Provider Reason For Exam: CVC placement and bronch Technologist Note: Additional: COMPARISON: Chest radiograph from 06/01/2025 at 5:57 AM. FINDINGS: *Endotracheal tube terminates in the midtrachea. *Orogastric/nasogastric tube follows the path of the esophagus however the distal tube in the lower thorax is suboptimally evaluated. *Right internal jugular vein approach central venous line terminating at the brachiocephalic vein confluence. Unchanged opacification of the left mid and lower lung zones concerning for atelectasis. Cannot exclude superimposed pneumonia. Moderate left-sided pleural effusion. The cardiomediastinal silhouette is stable with atherosclerotic calcifications of the aorta. The bony thorax is intact. Procedure Note Patricia Black MD - 07/02/2025 PROCEDURE: XR CHEST 1VW PORTABLE, DATE/TIME OF EXAM: 07/02/2025 1:47PM, LOCATION [facility] INDICATION: K43.7: Ventral hernia with gangrene ADDITIONAL CLINICAL INFORMATION: Ordering Provider Reason For Exam: CVC placement and bronch Technologist Note: Additional: COMPARISON: Chest radiograph from 06/01/2025 at 5:57 AM. FINDINGS: *Endotracheal tube terminates in the midtrachea. *Orogastric/nasogastric tube follows the path of the esophagus howeverthe distal tube in the lower thorax is suboptimally evaluated. *Right internal jugular vein approach central venous line terminating at the brachiocephalic vein confluence. Unchanged opacification of the left mid and lower lung zones concerningfor atelectasis. Cannot exclude superimposed pneumonia. Moderate left-sided pleural effusion. The cardiomediastinal silhouette is stable with atherosclerotic calcifications of the aorta. The bony thorax is intact. IMPRESSION: 1.Unchanged opacification of the left mid and lower lung zonesconcerning for atelectasis. Cannot exclude superimposed pneumonia. 2.Moderate left-sided pleural effusion. > Dictated by Damir Frances MD > Dictated by Disc Recordist I, Patricia Black MD have personally reviewed and interpreted this examination/study. > Interpreting Provider: Patricia Black MD on 07/02/2025 2:26 PM us Kamaljit Nicole MD DIAGNOSTIC IMAGING ORDERABLES Final Result * (ABNORMAL) GLUCOSE - POINT OF CARE (07/02/2025 12:29 PM [employer]) Glucose WB/POC 149(H) 70 - 99 mg/dL 07/02/2025 12:30 PM [employer] [facility] Specimen Type Arterial/C apillary 07/02/2025 12:30 PM [employer] [facility] Blood BLOOD SPECIMEN / Unknown 07/02/2025 12:29 PM [employer] 07/02/2025 12:29 PM [employer] us Kamaljit Nicole MD LAB - POINT OF CARE ORDERABLES Final Result [address] [address], [facility] [phone] * (ABNORMAL) HEPATIC FUNCTION PANEL (07/02/2025 10:52 AM [employer]) [facility] Protein Total 5.1(L) 6.0 - 8.3 g/dL 11:35 AM [facility] Albumin 1.5(L) 3.4 - 5.0 g/dL 07/02/2025 11:35 AM [facility] Bilirubin Total 2.2(H) 0.2 - 1.2 mg/dL 10/2024 11:35 AM [facility] Bilirubin Conjugated 1.6(H) 0.1 - 0.5 mg/dL 07/02/2025 11:35 AM [facility] Bilirubin Unconjugated 0.6 Unconjugated Bilirubin is a calculated value: Reference ranges have not been established. mg/dL 07/02/2025 11:35 AM [facility] Alkaline Phosphatase 97 40 - 150 U/L 07/02/2025 11:35 AM [facility] ALT 30 5 - 55 U/L 07/02/2025 11:35 AM [facility] AST 36(H) 5 - 34 U/L 07/02/2025 11:35 AM [facility] Albumin/Globulin Ratio 0.4(L) 1.1 - 2.3 07/02/2025 11:35 AM [facility] Blood BLOOD SPECIMEN / Unknown Venipuncture / Unknown 07/02/2025 10:52 AM [employer] 07/02/2025 11:04 AM [facility] us Kamaljit Nicole MD LAB - CHEMISTRY ORDERABLES Fin al Result [address] [address], [facility] [phone] * LACTIC ACID BLOOD (07/02/2025 10:52 AM [employer]) [facility] Lactic Acid-Stat 1.5 <=2.0 mmol/L 07/02/2025 11:33 AM [employer] [facility] Blood BLOOD SPECIMEN / Unknown Venipuncture / Unknown 07/02/2025 10:52 AM [employer] 07/02/2025 11:03 AM [employer] us Kamaljit Nicole MD LAB - CHEMISTRY ORDERABLES Fin al Result [facility] [address] [place] [address], [facility] [phone] * (ABNORMAL) BASIC METABOLIC PANEL (CALCIUM TOTAL) (07/02/2025 10:52 AM [employer]) BUN 47(H) 7 - 26 mg/dL 07/02/2025 11:35 AM [facility] Creatinine 1.48(H) 0.71 - 1.16 mg/dL 07/02/2025 11:35 AM [facility] Sodium 138 136 - 145 mmol/L 07/02/2025 11:35 AM [facility] Potassium 3.8 3.5 - 4.5 mmol/L 07/02/2025 11:35 AM [facility] Chloride 107 98 - 107 mmol/L 07/02/2025 11:35 AM [facility] CO2 22 22 - 29 mmol/L 07/02/2025 11:35 AM [facility] Glucose 143(H) 70 - 99 mg/dL 07/02/2025 11:35 AM [facility] Calcium 8.5 8.4 - 10.2 mg/dL 07/02/2025 11:35 AM [facility] Anion Gap 9 6 - 16 07/02/2025 11:35 AM [facility] BUN/Creatinine Ratio 32(H) 7 - 23 07/02/2025 11:35 AM [facility] Osmolality Calculated 301(H) 275 - 295 mOsm/kg 07/02/2025 11:35 AM [facility] eGFR by CKD-EPI 52(L) >=90 mL/min/1.7 3 m2 07/02/2025 11:35 AM [facility] Comment:Estimated Glomerular Filtration Rate (eGFR) calculated using the CKD-EPI Creatinine Equation (2020), per the National Kidney Foundation and [place] [employer] of Neph[employer] recommendations. Blood BLOOD SPECIMEN / Unknown Venipuncture / Unknown 07/02/2025 10:52 AM [employer] 07/02/2025 11:04 AM [facility] us Kamaljit Nicole MD LAB - CHEMISTRY ORDERABLES Fin al Result [facility] [address] [place] [address], [facility] [phone] * (ABNORMAL) BLOOD GASES ART + COOX PANEL (07/02/2025 10:52 AM [facility]) pH Arterial 7.44 7.35 - 7.45 pH 07/02/2025 11:03 AM [facility] pO2 Arterial 150(H) 80 - 100 mmHg 07/02/2025 11:03 AM [facility] pCO2 Arterial 29(L) 35 - 45 mmHg 11:03 AM [facility] HCO3 Arterial 19.7(L) 20.0 - 30.0 mmol/L 07/02/2025 11:03 AM [facility] BE Arterial -3.5(L) -2.0 - 2.0 mmol/L 07/02/2025 11:03 AM [facility] Oxyhemoglobin Arterial 97.8 % 07/02/2025 11:03 AM [facility] Dexoyhemoglobin (HHB) % <1.0 % 07/02/2025 11:03 AM [facility] Methemoglobin <0.8 0.0 - 2.0 % 07/02/2025 11:03 AM [facility] Carboxyhemoglobin 2.2(H) 0.0 - 2.0 % 2024 11:03 AM [facility] O2 Content Arterial 15.2 Interpret within clinical context ml/dL 07/02/2025 11:03 AM [facility] Hemoglobin by COOX 10.8(L) 12.0 - 17.6 g/dL 07/02/2025 11:03 AM [facility] O2 Saturation Arterial 100 90 - 100 % 07/02/2025 11:03 AM [facility] FI O2 Arterial 40.0 % 07/02/2025 11:03 AM [employer] [facility] Blood, arterial ARTERIAL BLOOD SPECIMEN / Unknown Arterial Puncture / Unknown 07/02/2025 10:52 AM [employer] 07/02/2025 11:00 AM [employer] Narrative [facility] - 07/02/2025 11:03 AM [employer] Carboxyhemoglobin Normal Concentration: Non-smokers: 0-2%; Smokers: 0-9%; Toxic: >20% us Kamaljit Nicole MD LAB - BLOOD GASES ORDERABLES F inal Result Performing Organization Address City/[facility]/ZIP Co de Phone Number [address] [address], [place] [phone] * BLOOD GAS ART+LYTES+METAB+COOX POC NOTIF (07/02/2025 9:24 AM [employer]) Comment Notification Label Only - See Separate Report 07/03/2025 9:30 AM [facility] Other MISCELLANEOUS SAMPLES / Unknown 07/02/2025 9:24 AM [employer] 07/03/2025 8:28 AM [employer] us Estrada Mcdermott DO LAB - BLOOD GASES ORDERAB LES Final Result Performing Organization Address [facility] Co de Phone Number [address] [address], [place] [phone] * (ABNORMAL) GLUCOSE - POINT OF CARE (07/02/2025 8:12 AM [employer]) Glucose WB/POC 119(H) 70 - 99 mg/dL 07/02/2025 8:13 AM [facility] Specimen Type Arterial/C apillary 07/02/2025 8:13 AM [facility] Blood BLOOD SPECIMEN / Unknown 07/02/2025 8:12 AM [employer] 07/02/2025 8:13 AM [employer] us Kamaljit Nicole MD LAB - POINT OF CARE ORDERABLES Final Result Performing Organization Address City/[facility]/ZIP Co de Phone Number [address] [place] [address], [facility] [phone] * XR Chest 1Vw (07/02/2025 6:14 AM [employer]) Anatomical Region Laterality Modality Chest Digital Radiogra phy 07/02/2025 8:59 AM [employer] Impressions 07/02/2025 9:12 AM [employer] IMPRESSION: 1.Unchanged opacification of the left mid and lower lung zones with suggestion of a bronchial cutoff sign concerning for atelectasis and mucus plugging. Cannot exclude superimposed pneumonia. 2.Left costophrenic is incompletely imaged. Moderate left-sided pleural effusion. > Dictated by Damir Frances MD > Dictated by Disc Recordist I, Dean Quinteros MD have personally reviewed and interpreted this examination/study. > Interpreting Provider: Dean Quinteros MD on 07/02/2025 9:12 AM Narrative 07/02/2025 9:12 AM [employer] PROCEDURE: XR CHEST 1VW, DATE/TIME OF EXAM: 07/02/2025 6:14 AM, LOCATION [facility] INDICATION: R10.84: Generalized abdominal pain ADDITIONAL CLINICAL INFORMATION: Ordering Provider Reason For Exam: ventilator Technologist Note: Additional: COMPARISON: This radiograph from 07/01/2025 FINDINGS: *Endotracheal tube terminates in the midtrachea. *Orogastric/nasogastric tube follows the path of the esophagus however the distal tube in the lower thorax is suboptimally evaluated. Unchanged opacification of the left mid and lower lung zones with suggestion of a bronchial cutoff sign concerning for atelectasis and mucus plugging. Cannot exclude superimposed pneumonia. Left costophrenic is incompletely imaged. Moderate left-sided pleural effusion. The cardiomediastinal silhouette is stable with atherosclerotic calcifications of the aorta. The bony thorax is intact. Procedure Note Dean Quinteros MD - 07/02/2025 PROCEDURE: XR CHEST 1VW, DATE/TIME OF EXAM: 07/02/2025 6:14 AM, LOCATION [facility] INDICATION: R10.84: Generalized abdominal pain ADDITIONAL CLINICAL INFORMATION: Ordering Provider Reason For Exam: ventilator Technologist Note: Additional: COMPARISON: This radiograph from 07/01/2025 FINDINGS: *Endotracheal tube terminates in the midtrachea. *Orogastric/nasogastric tube follows the path of the esophagus howeverthe distal tube in the lower thorax is suboptimally evaluated. Unchanged opacification of the left mid and lower lung zones with suggestion of a bronchial cutoff sign concerning for atelectasis andmucus plugging. Cannot exclude superimposed pneumonia. Left costophrenic is incompletely imaged. Moderate left-sided pleural effusion. The cardiomediastinal silhouette is stable with atherosclerotic calcifications of the aorta. The bony thorax is intact. IMPRESSION: 1.Unchanged opacification of the left mid and lower lung zones with suggestion of a bronchial cutoff sign concerning for atelectasis andmucus plugging. Cannot exclude superimposed pneumonia. 2.Left costophrenic is incompletely imaged. Moderate left-sided pleural effusion. > Dictated by Damir Frances MD > Dictated by Disc Recordist I, Dean Quinteros MD have personally reviewed and interpreted this examination/study. > Interpreting Provider: Dean Quinteros MD on 07/02/2025 9:12 AM Gregg Swenson DO DIAGNOSTIC IMAGING ORDERABLE S Final Result * LACTIC ACID WHOLE BLOOD (07/02/2025 5:51 AM [employer]) Pathologist [facility] Lactic Acid Whole Blood 1.6 <=2.0 mmol/L 07/02/2025 6:07 AM [employer] [facility] Blood WHOLE BLOOD SPECIMEN / Unknown Venipuncture / Unknown 07/02/2025 5:51 AM [employer] 07/02/2025 6:01 AM [employer] Gregg Swenson DO LAB - CHEMISTRY ORDERABLES F inal Result [facility] [address] [place] [address], [facility] [phone] * (ABNORMAL) BLOOD GASES ART + COOX PANEL (07/02/2025 5:51 AM [employer]) Pathologist [facility] pH Arterial 7.44 7.35 - 7.45 pH 07/02/2025 6:07 AM [facility] pO2 Arterial 171(H) 80 - 100 mmHg 07/02/2025 6:07 AM [facility] pCO2 Arterial 26(L) 35 - 45 mmHg 6:07 AM [facility] HCO3 Arterial 17.7(L) 20.0 - 30.0 mmol/L 07/02/2025 6:07 AM [facility] BE Arterial -5.2(L) -2.0 - 2.0 mmol/L 07/02/2025 6:07 AM [facility] Oxyhemoglobin Arterial 97.8 % 07/02/2025 6:07 AM [facility] Dexoyhemoglobin (HHB) % <1.0 % 07/02/2025 6:07 AM [facility] Methemoglobin <0.8 0.0 - 2.0 % 07/02/2025 6:07 AM [facility] Carboxyhemoglobin 0.9 0.0 - 2.0 % 2024 6:07 AM [facility] O2 Content Arterial 15.6 Interpret within clinical context ml/dL 07/02/2025 6:07 AM [facility] Hemoglobin by COOX 11.1(L) 12.0 - 17.6 g/dL 07/02/2025 6:07 AM [facility] O2 Saturation Arterial 99 90 - 100 % 07/02/2025 6:07 AM [facility] FI O2 Arterial 60.0 % 07/02/2025 6:07 AM [facility] Blood, arterial ARTERIAL BLOOD SPECIMEN / Unknown Arterial Puncture / Unknown 07/02/2025 5:51 AM [employer] 07/02/2025 6:01 AM [facility] - 07/02/2025 6:07 AM [facility] Carboxyhemoglobin Normal Concentration: Non-smokers: 0-2%; Smokers: 0-9%; Toxic: >20% us Gregg Swenson DO LAB - BLOOD GASES ORDERABLES Final Result [facility] [address] [place] [address], [facility] [phone] * (ABNORMAL) GLUCOSE - POINT OF CARE (07/02/2025 4:48 AM [employer]) Glucose WB/POC 100(H) 70 - 99 mg/dL 07/02/2025 4:49 AM [employer]ER [facility] Specimen Type Arterial/C apillary 07/02/2025 4:49 AM [facility] Blood BLOOD SPECIMEN / Unknown 07/02/2025 4:48 AM [employer] 07/02/2025 4:49 AM [employer] Gregg Swenson DO LAB - POINT OF CARE ORDERABL ES Final Result [address] [address], [place] [phone] * VANCOMYCIN LEVEL RANDOM (07/02/2025 1:59 AM [employer]) Pathologist [facility] Vancomycin Random 37.2 Therapeutic Ranges not established for random specimens ug/mL 07/02/2025 2:49 AM [facility] Blood BLOOD SPECIMEN / Unknown Venipuncture / Unknown 07/02/2025 1:59 AM [employer] 07/02/2025 2:14 AM [employer] CHECKER [facility] - 07/02/2025 2:49 AM [employer] CHECKER See institution protocol. Carlos Parkinson MD LAB - CHEMISTRY ORDERABLES Fin al Result Performing Organization Address [facility]/ZIP Co de Phone Number [address] [address], [place] [phone] * BLOOD TYPE VERIFICATION (07/02/2025 12:49 AM [employer]) ABO Rh A POS 07/02/2025 1:2 0 AM [employer]ER [facility] Blood Bank BLOOD SPECIMEN / Unknown Venipuncture / Unknown 07/02/2025 12:49 AM [employer] 07/02/2025 12:49 AM [employer]ER Gregg Swenson DO LAB - BLOOD BANK ORDERABLES Final Result [facility] [address] [place] [address], [facility] [phone] * HEMOGLOBIN A1C (07/02/2025 12:32 AM [facility]) Hemoglobin A1c 5.4 <=5.6 % 07/02/2025 8:45 AM [facility] Estimated Average Glucose 108 mg/dL 07/02/2025 8:45 AM [facility] Comment: HbA1c Interpretation: Normal : < 5.7% Pre-diabetes: 5.7-6.4% Diabetes: Equal to or greater than 6.5% Test results diagnostic of diabetes should be repeated for confirmation. Treatment target values recommended by ADA and other clinical organizations should be used to evaluate metabolic control in patients. Reference: [place] [employer], Standards of Care in Diabetes -2020 In patients 70 years and older consider HbA1c target range of 7.0-7.5% (Reference: Jad Hanks et al. JAMDA. 2012) The Sebia assay for the measurement of HbA1c is a National Glycohemoglobin Standardization Program (NGSP) certified method. Blood BLOOD SPECIMEN / Unknown Venipuncture / Unknown 07/02/2025 12:32 AM [employer] 07/02/2025 12:48 AM [facility] us Gregg Swenson DO LAB - CHEMISTRY ORDERABLES F inal Result [facility] [address] [place] [address], [facility] [phone] * (ABNORMAL) URINALYSIS REFLEX TO MICROSCOPIC NO CULTURE (07/02/2025 12:31 AM [facility]) Color UA Yellow Yellow, Straw 07/02/2025 12:52 AM [facility] Clarity UA Turbid(A) Clear 07/02/2025 12:52 AM [facility] Glucose UA Normal Normal 07/02/2025 12:52 AM [facility] Bilirubin UA Negative Negative 07/02/2025 12:52 AM [facility] Ketone UA Negative Negative 07/02/2025 12:52 AM [facility] Specific Dolphin UA 1.044(H) 1.005 - 1.030 07/02/2025 12:52 AM [facility] Blood UA Negative Negative 07/02/2025 12:52 AM [facility] pH UA 5.5 5.0 - 8.0 07/02/2025 12:52 AM [facility] Protein UA Trace(A) Negative 07/02/2025 12:52 AM [facility] Urobilinogen UA Normal Normal mg/dL 07/02/2025 12:52 AM [facility] Nitrite UA Negative Negative 07/02/2025 12:52 AM [facility] Leukocyte Esterase UA Negative Negative 07/02/2025 12:52 AM [facility] Urine Microscopy Urine microscopy not indicated 07/02/2025 12:52 AM [facility] Urine URINE SPECIMEN OBTAINED BY CLEAN CATCH PROCEDURE / Unknown Collection / Unknown 07/02/2025 12:31 AM [employer] 07/02/2025 12:45 AM [employer] Gregg Swenson DO LAB - URINALYSIS ORDERABLES Final Result [facility] [address] [place] [address], [place] [phone] * MRSA PCR (07/02/2025 12:31 AM E[employer] CHECKER) [facility] MRSA DNA by PCR Not detected Not detected 07/02/2025 6:01 AM [facility] Microbiology SPECIMEN FROM NASAL FOSSAE / Unknown Collection / Unknown 07/02/2025 12:31 AM [employer] 07/02/2025 12:46 AM [employer] CHECKER Narrative [facility] - 07/02/2025 6:01 AM [employer]ER Methicillin-resistant Staphylococcus aureus (MRSA) DNA is not detected (presumed not colonized with MRSA). Gregg Swenson DO LAB - MICROBIOLOGY ORDERABLE S Final Result [facility] [address] [place] [address], [place] [phone] * TSH (07/02/2025 12:30 AM E[employer] CHECKER) Pathologist [facility] TSH 3.582 0.350 - 4.940 uIU/mL 07/02/2025 1:41 AM [employer] [facility] Blood BLOOD SPECIMEN / Unknown Venipuncture / Unknown 07/02/2025 12:30 AM [employer] 07/02/2025 12:48 AM [employer] Gregg Swenson DO LAB - CHEMISTRY ORDERABLES F inal Result Performing Organization Address [facility]/ZIP Co de Phone Number [address] [address], [place] [phone] * (ABNORMAL) VANCOMYCIN LEVEL TROUGH (07/02/2025 12:30 AM E[employer]ER) [facility] Vancomycin Trough 39.4(HH) 10.0 - 20.0 ug/mL 07/02/2025 1:24 AM [employer] [facility] Blood BLOOD SPECIMEN / Unknown Venipuncture / Unknown 07/02/2025 12:30 AM [employer] 07/02/2025 12:46 AM [employer]ER Narrative [facility] - 07/02/2025 1:24 AM [employer] CHECKER See institution protocol. Gregg Swenson DO LAB - CHEMISTRY ORDERABLES F inal Result Performing Organization Address [facility] Co de Phone Number [address] [address], [place] [phone] * (ABNORMAL) BLOOD GASES ART + COOX PANEL (07/02/2025 12:30 AM E[employer] AND CHECKER) [facility] pH Arterial 7.31(L) 7.35 - 7.45 pH 07/02/2025 12:48 AM [facility] pO2 Arterial 280(H) 80 - 100 mmHg 07/02/2025 12:48 AM [facility] pCO2 Arterial 38 35 - 45 mmHg 12:48 AM [facility] HCO3 Arterial 19.1(L) 20.0 - 30.0 mmol/L 07/02/2025 12:48 AM [facility] BE Arterial -6.6(L) -2.0 - 2.0 mmol/L 07/02/2025 12:48 AM [facility] Oxyhemoglobin Arterial 96.9 % 07/02/2025 12:48 AM [facility] Dexoyhemoglobin (HHB) % 1.3 % 07/02/2025 12:48 AM [facility] Methemoglobin 0.9 0.0 - 2.0 % 07/02/2025 12:48 AM [facility] Carboxyhemoglobin 0.9 0.0 - 2.0 % 2024 12:48 AM [facility] O2 Content Arterial 18.3 Interpret within clinical context ml/dL 07/02/2025 12:48 AM [facility] Hemoglobin by COOX 12.9 12.0 - 17.6 g/dL 07/02/2025 12:48 AM [facility] O2 Saturation Arterial 99 90 - 100 % 07/02/2025 12:48 AM [facility] FI O2 Arterial 80.0 % 07/02/2025 12:48 AM [facility] Blood, arterial ARTERIAL BLOOD SPECIMEN / Unknown Arterial Puncture / Unknown 07/02/2025 12:30 AM [employer] 07/02/2025 12:46 AM [employer] AND CHECKER Narrative [facility] - 07/02/2025 12:48 AM [employer] Carboxyhemoglobin Normal Concentration: Non-smokers: 0-2%; Smokers: 0-9%; Toxic: >20% Gregg Swenson DO LAB - BLOOD GASES ORDERABLES Final Result [address] [address], [facility] [phone] * (ABNORMAL) FIBRINOGEN ACTIVITY (07/02/2025 12:30 AM [employer]ER) Fibrinogen Clauss 1,052(H) 200 - 400 mg/dL 07/02/2025 1:20 AM [facility] Blood BLOOD SPECIMEN / Unknown Venipuncture / Unknown 07/02/2025 12:30 AM [employer] 07/02/2025 12:48 AM [employer] CHECKER Gregg Swenson DO LAB - COAGULATION ORDERABLES Final Result Performing Organization Address [facility] Co de Phone Number [address] [address], [facility] [phone] * PTT (07/02/2025 12:30 AM E[employer] AND CHECKER) APTT 35.7 23.0 - 38.4 Seconds 07/02/2025 1:16 AM [facility] Comment:Suggested therapeuti c range for full dose I.V. unfractionated heparin therapy for venous thromboembolism is 71 to 109 seconds. Blood BLOOD SPECIMEN / Unknown Venipuncture / Unknown 07/02/2025 12:30 AM [employer] 07/02/2025 12:48 AM [employer] Gregg Swenson DO LAB - COAGULATION ORDERABLES Final Result Performing Organization Address [facility] Co de Phone Number [address] [phone], [facility] [phone] * (ABNORMAL) PT-INR (07/02/2025 12:30 AM [employer]) PT 28.6(H) 12.1 - 14.8 Seconds 07/02/2025 1:16 AM [facility] INR 2.8 See Comment 07/02/2025 1:16 AM [facility] Comment:The suggested therap eutic range for standard coumadin (warfarin) therapy is an INR of 2.0-3.0. For high-risk patients (Mechanical Mitral Valve Prosthesis, etc.), the suggested prophylactic therapeutic range is an INR of 2.5-3.5. Blood BLOOD SPECIMEN / Unknown Venipuncture / Unknown 07/02/2025 12:30 AM [employer] 07/02/2025 12:48 AM [employer]ER Gregg Swenson DO LAB - COAGULATION ORDERABLES Final Result Performing Organization Address [facility] Co de Phone Number [address] [address], [facility] [phone] * MAGNESIUM BLOOD (07/02/2025 12:30 AM [employer]) Magnesium 2.5 1.6 - 2.6 mg/dL 07/02/2025 1:23 AM [facility] Blood BLOOD SPECIMEN / Unknown Venipuncture / Unknown 07/02/2025 12:30 AM [employer] 07/02/2025 12:48 AM [employer]ER Gregg Swenson DO LAB - CHEMISTRY ORDERABLES F inal Result [address] [address], [facility] [phone] * (ABNORMAL) CALCIUM IONIZED WHOLE BLOOD (07/02/2025 12:30 AM [employer]) [facility] Calcium Ionized 1.23 mmol/L 07/02/2025 12:49 AM [facility] pH 7.31(L) 7.35 - 7.45 pH 07/02/2025 12:49 AM [facility] Ionized Calcium pH Adjusted 1.19 1.19 - 1.34 mmol/L 07/02/2025 12:49 AM [facility] Blood BLOOD SPECIMEN / Unknown Venipuncture / Unknown 07/02/2025 12:30 AM [employer] 07/02/2025 12:46 AM [employer] Gregg Swenson DO LAB - CHEMISTRY ORDERABLES F inal Result [address] [address], [facility] [phone] * (ABNORMAL) BASIC METABOLIC PANEL (CALCIUM TOTAL) (07/02/2025 12:30 AM [employer]ER) Pathologist [facility] BUN 50(H) 7 - 26 mg/dL 07/02/2025 1:23 AM [facility] Creatinine 1.75(H) 0.71 - 1.16 mg/dL 07/02/2025 1:23 AM [facility] Sodium 137 136 - 145 mmol/L 07/02/2025 1:23 AM [facility] Potassium 5.1(H) 3.5 - 4.5 mmol/L 07/02/2025 1:23 AM [facility] Chloride 107 98 - 107 mmol/L 07/02/2025 1:23 AM [facility] CO2 18(L) 22 - 29 mmol/L 07/02/2025 1:23 AM [facility] Glucose 103(H) 70 - 99 mg/dL 07/02/2025 1:23 AM [facility] Calcium 9.6 8.4 - 10.2 mg/dL 07/02/2025 1:23 AM [facility] Anion Gap 12 6 - 16 07/02/2025 1:23 AM [facility] BUN/Creatinine Ratio 29(H) 7 - 23 07/02/2025 1:23 AM [facility] Osmolality Calculated 298(H) 275 - 295 mOsm/kg 07/02/2025 1:23 AM [facility] eGFR by CKD-EPI 42(L) >=90 mL/min/1.7 3 m2 07/02/2025 1:23 AM [facility] Comment:Estimated Glomerular Filtration Rate (eGFR) calculated using the CKD-EPI Creatinine Equation (2020), per the National Kidney Foundation and [place] [employer] Nephrology recommendations. Blood BLOOD SPECIMEN / Unknown Venipuncture / Unknown 07/02/2025 12:30 AM [employer] 07/02/2025 12:48 AM [facility] us Gregg Swenson DO LAB - CHEMISTRY ORDERABLES F inal Result [facility] [address] [place] [address], [facility] [phone] * (ABNORMAL) CBC W/O DIFFERENTIAL (07/02/2025 12:30 AM [facility]) WBC 20.9(H) 4.0 - 10.7 x10E9/L 07/02/2025 12:55 AM [facility] RBC Count 3.64(L) 4.30 - 5.80 x10E12/L 07/02/2025 12:55 AM [facility] Hemoglobin 11.9(L) 13.3 - 17.5 g/dL 07/02/2025 12:55 AM [facility] Hematocrit 36.5(L) 38.7 - 51.1 % 07/02/2025 12:55 AM [facility] MCV 100.3(H) 80.0 - 98.0 fL 07/02/2025 12:55 AM [facility] MCH 32.7 26.7 - 33.6 pg 07/02/2025 12:55 AM [facility] MCHC 32.6 31.7 - 36.3 g/dL 07/02/2025 12:55 AM [facility] RDW-CV 13.9 11.3 - 14.8 % 07/02/2025 12:55 AM [facility] Platelet Count 325 150 - 420 x10E9/L 07/02/2025 12:55 AM [facility] MPV 11.0 7.8 - 11.4 fL 07/02/2025 12:55 AM [facility] Blood BLOOD SPECIMEN / Unknown Venipuncture / Unknown 07/02/2025 12:30 AM [employer] 07/02/2025 12:48 AM [employer] us Gregg Swenson DO LAB - HEMATOLOGY ORDERABLES Final Result [address] [address], [facility] [phone] * (ABNORMAL) LACTIC ACID WHOLE BLOOD (07/02/2025 12:30 AM [employer]) Lactic Acid Whole Blood 2.3(H) <=2.0 mmol/L 07/02/2025 12:48 AM [facility] Blood WHOLE BLOOD SPECIMEN / Unknown Venipuncture / Unknown 07/02/2025 12:30 AM [employer] 07/02/2025 12:46 AM [employer]ER Gregg Swenson DO LAB - CHEMISTRY ORDERABLES F inal Result [address] [address], [facility] [phone] * TRIGLYCERIDES BLOOD (07/02/2025 12:30 AM [employer]ER) Triglycerides 109 <150 mg/dL 07/02/2025 1:16 AM [facility] Comment: ATP III Classification of Triglycerides: <150 mg/dL: Normal 150 - 199 mg/dL: Borderline High 200 - 400 mg/dL: High >500 mg/dL: Very High Blood BLOOD SPECIMEN / Unknown Venipuncture / Unknown 07/02/2025 12:30 AM [employer] 07/02/2025 12:48 AM [employer]ER Gregg Swenson [employer] LAB - CHEMISTRY ORDERABLES F inal Result Performing Organization Address [facility] Co de Phone Number [address] [address], [facility] [phone] * (ABNORMAL) NT-PRO BNP (07/02/2025 12:30 AM [employer]) NT-proBNP 5,883.4(H) <900.0 pg/mL 07/02/2025 1:41 AM [facility] Blood BLOOD SPECIMEN / Unknown Venipuncture / Unknown 07/02/2025 12:30 AM [employer] 07/02/2025 12:48 AM [facility] Narrative [facility] - 07/02/2025 1:41 AM [facility] NT-pro-BNP values below 300 pg/mL, for individuals 18 or above, have a 99% negative predictive value for excluding acute congestive heart failure (CHF). In patients with eGFR less than 60 mL/min/1.73 m2, caution should be used when interpreting NT-pro-BNP results. Results should be assessed in conjunction with the patient s medical history, clinical examination, and other findings. NT-pro-BNP is measured on the Casabi analyzer using chemiluminescent microparticle immunoassay (CMIA) technology. Gregg Swenson [employer] LAB - CHEMISTRY ORDERABLES F inal Result Performing Organization Address [facility]/ZIP Co de Phone Number [address] [address], [facility] [phone] * (ABNORMAL) PHOSPHORUS BLOOD (07/02/2025 12:30 AM [employer]ER) Phosphorus 6.7(H) 2.8 - 5.1 mg/dL 07/02/2025 1:16 AM [employer] CHECKER [facility] Blood BLOOD SPECIMEN / Unknown Venipuncture / Unknown 07/02/2025 12:30 AM [employer] 07/02/2025 12:48 AM [employer] us Gregg Sheffield Messi DO LAB - CHEMISTRY ORDERABLES F inal Result [facility] [address] [place] [address], [facility] [phone] * XR Abdomen Kub (07/02/2025 12:02 AM E[employer]ER) Anatomical Region Laterality Modality Abdomen Digital Radiogra phy 07/02/2025 7:29 AM [employer]ER Impressions 07/02/2025 9:50 AM [employer]ER IMPRESSION: Nonobstructive bowel gas pattern. Report dictated by Damir Frances MD post surgery > Dictated by Disc Recordist I, Ivis Waller MD have personally reviewed and interpreted this examination/study. > Interpreting Provider: Ivis Waller MD on 07/02/2025 9:50 AM Narrative 07/02/2025 9:50 AM [employer]ER PROCEDURE: XR ABDOMEN KUB, DATE/TIME OF EXAM: 07/02/2025 12:02 AM, LOCATION [facility] INDICATION: R10.84: Generalized abdominal pain ADDITIONAL CLINICAL INFORMATION: Ordering Provider Reason For Exam: Technologist Note: Additional: post surgery exploratory laparotomy, lysis of adhesions, reduction of hernia, small bowel resection, excisional debridement of soft tissue COMPARISON: None. FINDINGS: Detail is limited. *Orogastric/nasogastric tube tip in the stomach, but the side-port is near the gastroesophageal junction. Consider advancing. *[place] catheter in place. There is no dilatation of small or large bowel. Expected pneumoperitoneum is not visible on this supine exam. Osseous structures are intact. Procedure Note Ivis Waller MD - 07/02/2025 PROCEDURE: XR ABDOMEN KUB, DATE/TIME OF EXAM: 07/02/2025 12:02 AM, LOCATION [facility] INDICATION: R10.84: Generalized abdominal pain ADDITIONAL CLINICAL INFORMATION: Ordering Provider Reason For Exam: Technologist Note: Additional: post surgery exploratory laparotomy, lysis of adhesions, reduction of hernia, small bowel resection, excisional debridement of soft tissue COMPARISON: None. FINDINGS: Detail is limited. *Orogastric/nasogastric tube tip in the stomach, but the side-port isnear the gastroesophageal junction. Consider advancing. *[place] catheter in place. There is no dilatation of small or large bowel. Expectedpneumoperitoneum is not visible on this supine exam. Osseous structures are intact. IMPRESSION: Nonobstructive bowel gas pattern. Report dictated by Damir Frances MD post surgery > Dictated by Disc Recordist I, Ivis Waller MD have personally reviewed and interpreted this examination/study. > Interpreting Provider: Ivis Waller MD on 07/02/2025 9:50 AM us Gregg Swenson DO DIAGNOSTIC IMAGING ORDERABLE S Final Result * XR CHEST 1VW PORTABLE (07/02/2025 12:02 AM [employer]ER) Anatomical Region Laterality Modality Chest Digital Radiogra phy 07/02/2025 7:26 AM [employer]ER Narrative 07/02/2025 9:42 AM [employer]ER PROCEDURE: XR CHEST 1VW PORTABLE, DATE/TIME OF EXAM: 07/02/2025 12:02 AM, LOCATION [facility] INDICATION: R10.84: Generalized abdominal pain ADDITIONAL CLINICAL INFORMATION: Ordering Provider Reason For Exam: intubated, post OR Technologist Note: Additional: COMPARISON: Portable chest 07/01/2025 at 11:52 PM. FINDINGS/IMPRESSION: Endotracheal tube terminates in the midthoracic trachea. There is an enteric tube seen coursing below the level of the diaphragm with the side port near the GE junction. There is a moderate to large left pleural effusion, possibly loculated. There is aeration only of a small portion of the left lower lobe. Partial aeration of the left upper lung field. No right pleural effusion or right pulmonary opacification is evident. No pneumothorax. The heart and mediastinum are partially obscured. Healed right rib fractures are noted. > Dictated by Bárbara Delatorre Dr, (executive vice president business development). > Dictated by Disc Recordist IIvis MD have personally reviewed and interpreted this examination/study. > Interpreting Provider: Ivis Waller MD on 07/02/2025 9:42 AM Procedure Note Ivis Waller MD - 07/02/2025 PROCEDURE: XR CHEST 1VW PORTABLE, DATE/TIME OF EXAM: 07/02/2025 12:02AM, LOCATION [facility] INDICATION: R10.84: Generalized abdominal pain ADDITIONAL CLINICAL INFORMATION: Ordering Provider Reason For Exam: intubated, post OR Technologist Note: Additional: COMPARISON: Portable chest 07/01/2025 at 11:52 PM. FINDINGS/IMPRESSION: Endotracheal tube terminates in the midthoracic trachea. There is an enteric tube seen coursing below the level of the diaphragm with theside port near the GE junction. There is a moderate to large left pleural effusion, possibly loculated. There is aeration only of a small portion of the left lower lobe.Partial aeration of the left upper lung field. No right pleural effusion orright pulmonary opacification is evident. No pneumothorax. The heart and mediastinum are partially obscured. Healed right rib fractures arenoted. > Dictated by Bárbara Delatorre Dr, (executive vice president business development). > Dictated by Disc Recordist Ivis Adan MD have personally reviewed and interpreted this examination/study. > Interpreting Provider: Ivis Waller MD on 07/02/2025 9:42 AM Gregg Swenson DO DIAGNOSTIC IMAGING ORDERABLE S Final Result * SUSCEPTIBILITY FUNGUS/YEAST (07/01/2025 11:50 PM [employer]ER) Prelim Report SEE NOTE 07/09/2025 5:24 PM [employer] AS[employer] CHECKER [facility] ([facility]) Comment: Specimen received and in progress. INTERPRETIVE INFORMATION: Susceptibility, Fungal (Yeasts and Molds) Units = ug/mL YSTMIC Amphotericin B 1 None Rezafungin 0.016 Suscept Anidulafungin 0.03 Suscept Micafungin 0.12 Suscept Voriconazole 0.25 Suscept Isavuconazole 0.25 None Posaconazole 0.25 None Itraconazole 0.25 None Fluconazole Resist Caspofungin 0.25 Suscept Performed By: [facility] [address] [place] [address] Regulatory Product Manager: Chava Osborne MD, PhD CLIA Number: [id number] Final Report SEE NOTE 07/09/2025 5:24 PM [employer] CHECKER [facility] ([facility]) Comment: Pichia kudriavzevii (Previously [place] krusei) Organism identified by client INTERPRETIVE INFORMATION: Susceptibility, Fungal (Yeasts and Molds) Units = ug/mL YSTMIC Amphotericin B 1 None Rezafungin 0.016 Suscept Anidulafungin 0.03 Suscept Micafungin 0.12 Suscept Voriconazole 0.25 Suscept Isavuconazole 0.25 None Posaconazole 0.25 None Itraconazole 0.25 None Fluconazole Resist Caspofungin 0.25 Suscept Performed By: [facility] [address] [place] [address] Regulatory Product Manager: Chava Osborne MD, PhD CLIA Number: [id number] Other PERITONEAL FLUID / Unknown Collection / Unknown 07/01/2025 11:50 PM [employer] CHECKER 07/02/2025 1:34 AM [employer] ASSEM[employer]ER AND CHECKER Narrative [facility] ([facility]) - 07/09/2025 5:24 PM [employer] ASSEMBLER AND CHECKER SHAMAR=Minimum Inhibitory Concentration MEC=Minimum Effective Concentration SHAMAR=Minimum Inhibitory Concentration MEC=Minimum Effective Concentration SHAMAR=Minimum Inhibitory Concentration MEC=Minimum Effective Concentration SHAMAR=Minimum Inhibitory Concentration MEC=Minimum Effective Concentration SHAMAR=Minimum Inhibitory Concentration MEC=Minimum Effective Concentration SHAMAR=Minimum Inhibitory Concentration MEC=Minimum Effective Concentration Gregg Swenson DO LAB - MICROBIOLOGY ORDERABLE S Final Result [facility] ([facility]) [address] [place] [address] * (ABNORMAL) CULTURE ANAEROBE (07/01/2025 11:50 PM [employer] CHECKER) Culture Moderate Phocaeicola (formerly Bacteroides) vulgatus(AA) 07/08/2025 10:13 AM [employer]GAN ASSEMBLER AND CHECKER [facility] Comment:Beta-lactamase posit ester Culture Moderate Prevotella denticola(AA) 07/08/2025 10:13 AM [facility] Comment:Beta-lactamase negat ester Culture Moderate Clostridium paraputrificum( AA) 07/08/2025 10:13 AM [facility] Comment:Beta-lactamase negat ester Culture Moderate Finegoldia magna(AA) 07/08/2025 10:13 AM [facility] Microbiology PERITONEAL FLUID / Unknown Collection / Unknown 07/01/2025 11:50 PM [employer]ER 07/01/2025 11:55 PM [employer] CHECKER Narrative [facility] - 07/08/2025 10:13 AM [employer] CHECKER Caution: The absence of beta-lactamase does not mean that the organism is susceptible to beta-lactams. Isolates may still be resistant to beta-lactams by a mechanism other than beta-lactamase production. us Gregg Swenson DO LAB - MICROBIOLOGY ORDERABLE S Final Result [facility] [address] [place] [address], [facility] [phone] * (ABNORMAL) CULTURE FLUID+GRAM STAIN (07/01/2025 11:50 PM [employer] CHECKER) Culture Heavy Escherichia coli(AA) SHAMAR 07/10/2025 7:32 AM [facility] Culture Heavy Streptococcus anginosus(AA) SHAMAR 07/10/2025 7:32 AM [facility] Culture Rare [place] krusei(AA) 07/10/2025 7:32 AM [facility] Comment: Referred to [facility] for susceptibility Referred to [facility] [address] [place] [id number] See separate reference laboratory report Gram Stain Light Polymorphonuclear cells(AA) 07/10/2025 7:32 AM [facility] Gram Stain Heavy Gram-positive cocci(AA) 07/10/2025 7:32 AM [facility] Gram Stain Heavy Gram-negative bacilli(AA) 07/10/2025 7:32 AM [facility] Gram Stain Moderate Gram-positive bacilli(AA) 07/10/2025 7:32 AM [facility] Gram Stain Rare Yeast(AA) 07/10/2025 7:32 AM [employer] CHECKER [facility] Other PERITONEAL FLUID / Unknown Collection / Unknown 07/01/2025 11:50 PM [employer] CHECKER 07/02/2025 1:34 AM [employer] CHECKER Narrative Organism Antibiotic Method Susceptibility Escherichia coli Amikacin SHAMAR <=2 ug/mL: Susceptible Escherichia coli Ampicillin SHAMAR 4 ug/mL: Susceptible Escherichia coli Ampicillin-sulbactam SHAMAR <=2 ug/mL: Susceptible Escherichia coli Cefazolin SHAMAR <=4 ug/mL: See Comment* Escherichia coli Cefepime SHAMAR <=1 ug/mL: Susceptible Escherichia coli Ceftriaxone SHAMAR <=1 ug/mL: Susceptible Escherichia coli Ciprofloxacin SHAMAR <=0.25 ug/mL: Susceptible Escherichia coli Gentamicin SHAMAR <=1 ug/mL: Susceptible Escherichia coli Meropenem SHAMAR <=0.25 ug/mL: Susceptible Escherichia coli Piperacillin-tazobactam SHAMAR <=4 ug/mL: Susceptible Escherichia coli Tobramycin SHAMAR <=1 ug/mL: Susceptible Escherichia coli Trimethoprim-sulfame thoxa zole SHAMAR <=20 ug/mL: Susceptible Comment:*Cefazolin SHAMAR of </ =4 cannot distinguish between susceptible or intermediate for systemic breakpoints. If further defined interpretation is needed, call Microbiology and a disk diffusion test will be performed. Streptococcus anginosus Ampicillin SHAMAR <=0.25 ug/mL: Susceptible Streptococcus anginosus Cefotaxime SHAMAR <=0.12 ug/mL: Susceptible Streptococcus anginosus Ceftriaxone SHAMAR 0.25 ug/mL: Susceptible Streptococcus anginosus Clindamycin SHAMAR <=0.25 ug/mL: Susceptible Streptococcus anginosus Levofloxacin SHAMAR <=0.25 ug/mL: Susceptible Streptococcus anginosus Penicillin G SHAMAR <=0.06 ug/mL: Susceptible Streptococcus anginosus Tetracycline SHAMAR 0.5 ug/mL: Susceptible Streptococcus anginosus Vancomycin SHAMAR 0.5 ug/mL: Susceptible us Gregg Swenson DO LAB - MICROBIOLOGY ORDERABLE S Final Result [facility] [address] [place] [address], [facility] [phone] * PATHOLOGY TISSUE (07/01/2025 11:11 PM E[employer] ASSEMBLER AND CHECKER) Case Report Surgical Pathology Report Case: [id number] Authorizing Provider: Gregg Swenson DO Collected: 07/01/2025 11:11 PM Ordering Location: [facility] Received: 07/02/2025 04:50 AM Pathologist: Jackie Tomlin MD Specimen: Small Bowel, small bowel 07/03/2025 12:52 PM [facility] Final Diagnosis Small bowel, resection (A) - Portion of small bowel with reactive changes and congestion - Serosa with adhesions and congestion - Margins of resection with viable mucosa 07/03/2025 12:52 PM [facility]Y LAB at 1252 E[employer]SEM[employer] CHECKER Microscopic Description and Comment Microscopic examination substantiates the final diagnosis. 07/03/2025 12:52 PM [facility] Clinical History Incarcerated ventral hernia 07/03/2025 12:52 PM [facility] Gross Description The requisition and specimen(s) are identified with the patient's name Serjio Sanderson. Received in formalin, specimen A, is an unoriented short segment of small bowel, 6.0 cm in length and 3.7 cm in diameter. There are 2 opposing stapled resection margins. The serosal surface is pink-maria and displays a 2.0 cm in greatest dimension transmural defect. The attached mesentery is hemorrhagic appearing and red-pink. The mucosal folds are pink-connor and grossly unremarkable. The mesenteric fat is examined for lymph node candidates and no lymph node candidates are grossly identified. The specimen is representatively submitted as follows: A1-A2: Opposing resection margins, en face A3: Mucosa to defect, longitudinal A4: Hemorrhagic appearing mesentery./ANC 07/03/2025 12:52 PM [facility] Pathologist Location at [facility] 07/03/2025 12:52 PM [facility] Disclaimer The performance characteristics of all immunohistochemical and indirect immunofluorescence stains (if any) cited in this report were determined by the Histopathology Laboratory of [facility]. Some of these tests were developed by our own laboratory and have not been cleared or approved by the US Food and Drug Administration. The FDA does not require this test to go through premarket FDA review. These tests are used for clinical purposes. They should not be regarded as investigational or for research. This laboratory is certified under the Clinical Laboratory Improvement Amendments (CLIA) as qualified to perform high complexity clinical laboratory testing. This case has been personally reviewed and interpreted by the attending (teaching) pathologist. 07/03/2025 12:52 PM [facility] Embedded Images 07/03/2025 12:52 PM [facility] LAB Resection without Tumor SMALL BOWEL RESECTION SPECIMEN / Unknown 07/01/2025 11:11 PM [employer] AS[employer] AND CHECKER 07/02/2025 4:50 AM [facility] us Gregg Swenson DO LAB - PATHOLOGY/CYTOLOGY ORD ERABLES Final Result [facility] [address] [id number] [phone] * (ABNORMAL) BLOOD GAS+COOX+LYTES+METAB ARTERIAL POCT (07/01/2025 10:36 PM E[employer] ASSEM[employer] AND CHECKER) pH Arterial 7.30(L) 7.35 - 7.45 pH 07/01/2025 10:36 PM [facility] pO2 Arterial 199(H) 80 - 100 mmHg 07/01/2025 10:36 PM [facility] pCO2 Arterial 49(H) 35 - 45 mmHg 10:36 PM [facility] HCO3 Arterial 24.1 20.0 - 30.0 mmol/L 07/01/2025 10:36 PM [facility] BE Arterial -2.7(L) -2.0 - 2.0 mmol/L 07/01/2025 10:36 PM [facility] Oxyhemoglobin Arterial 97.0 % 07/01/2025 10:36 PM [facility] Dexoyhemoglobin (HHB) % 1.1 % 07/01/2025 10:36 PM [facility] Methemoglobin 0.8 0.0 - 2.0 % 07/01/2025 10:36 PM [facility] Carboxyhemoglobin 1.1 0.0 - 2.0 % 2024 10:36 PM [facility] Comment:Carboxyhemoglobin No rmal Concentration: Non-smokers: 0-2%; Smokers: 0- 9%; Toxic: >20% O2 Content Arterial 17.9 Interpret within clinical context ml/dL 07/01/2025 10:36 PM [facility] Hemoglobin by COOX 12.8 12.0 - 17.6 g/dL 07/01/2025 10:36 PM [facility] O2 Saturation Arterial 99 90 - 100 % 07/01/2025 10:36 PM [facility] Sodium Whole Blood 134(L) 135 - 145 mmol/L 07/01/2025 10:36 PM [facility] Potassium Whole Blood 5.3 3.5 - 5.5 mmol/L 07/01/2025 10:36 PM [facility] Chloride WB 103 78 - 107 mmol/L 07/01/2025 10:36 PM [facility] Calcium Ionized 1.21 mmol/L 10:36 PM [facility] Ionized Calcium pH Adjusted 1.16(L) 1.19 - 1.34 mmol/L 07/01/2025 10:36 PM [facility] Anion Gap (AG) Arterial 7 6 - 16 mmol/L 07/01/2025 10:36 PM [facility] Glucose WB 103(H) 70 - 99 mg/dL 07/01/2025 10:36 PM [facility] Lactic Acid Whole Blood 1.7 <=2.0 mmol/L 07/01/2025 10:36 PM [facility] Blood, arterial ARTERIAL BLOOD SPECIMEN / Unknown 07/01/2025 10:36 PM [employer] 07/01/2025 10:37 PM [facility] us Carlos Parkinson MD LAB - POINT OF CARE ORDERABLES Final Result [facility] [address] [place] [phone], [facility] [phone] * (ABNORMAL) BLOOD GAS+COOX+LYTES+METAB ARTERIAL POCT (07/01/2025 9:18 PM [facility]) pH Arterial 7.30(L) 7.35 - 7.45 pH 07/01/2025 9:18 PM [facility] pO2 Arterial 243(H) 80 - 100 mmHg 07/01/2025 9:18 PM [facility] pCO2 Arterial 50(H) 35 - 45 mmHg 9:18 PM [facility] HCO3 Arterial 24.6 20.0 - 30.0 mmol/L 07/01/2025 9:18 PM [facility] BE Arterial -2.3(L) -2.0 - 2.0 mmol/L 07/01/2025 9:18 PM [facility] Oxyhemoglobin Arterial 97.1 % 07/01/2025 9:18 PM [facility] Dexoyhemoglobin (HHB) % 1.1 % 07/01/2025 9:18 PM [facility] Methemoglobin 0.8 0.0 - 2.0 % 07/01/2025 9:18 PM [facility] Carboxyhemoglobin 1.0 0.0 - 2.0 % 2024 9:18 PM [facility] Comment:Carboxyhemoglobin No rmal Concentration: Non-smokers: 0-2%; Smokers: 0- 9%; Toxic: >20% O2 Content Arterial 17.5 Interpret within clinical context ml/dL 07/01/2025 9:18 PM [facility] Hemoglobin by COOX 12.4 12.0 - 17.6 g/dL 07/01/2025 9:18 PM [facility] O2 Saturation Arterial 99 90 - 100 % 07/01/2025 9:18 PM [facility] Sodium Whole Blood 133(L) 135 - 145 mmol/L 07/01/2025 9:18 PM [facility] Potassium Whole Blood 5.0 3.5 - 5.5 mmol/L 07/01/2025 9:18 PM [facility] Chloride WB 104 78 - 107 mmol/L 07/01/2025 9:18 PM [facility] Calcium Ionized 1.14 mmol/L 9:18 PM [facility] Ionized Calcium pH Adjusted 1.09(L) 1.19 - 1.34 mmol/L 07/01/2025 9:18 PM [facility] Anion Gap (AG) Arterial 9 6 - 16 mmol/L 07/01/2025 9:18 PM [facility] Glucose WB 100(H) 70 - 99 mg/dL 07/01/2025 9:18 PM [facility] Lactic Acid Whole Blood 1.8 <=2.0 mmol/L 07/01/2025 9:18 PM [facility] Blood, arterial ARTERIAL BLOOD SPECIMEN / Unknown 07/01/2025 9:18 PM [employer] 07/01/2025 9:19 PM [facility] Carlos Parkinson MD LAB - POINT OF CARE ORDERABLES Final Result [facility] [address] [place] [phone], [facility] [phone] * (ABNORMAL) BLOOD GAS+COOX+LYTES+METAB ARTERIAL POCT (07/01/2025 9:18 PM [facility]) pH Arterial 7.30(L) 7.35 - 7.45 pH 07/01/2025 9:18 PM [facility] pO2 Arterial 243(H) 80 - 100 mmHg 07/01/2025 9:18 PM [facility] pCO2 Arterial 50(H) 35 - 45 mmHg 9:18 PM [facility] HCO3 Arterial 24.6 20.0 - 30.0 mmol/L 07/01/2025 9:18 PM [facility] BE Arterial -2.3(L) -2.0 - 2.0 mmol/L 07/01/2025 9:18 PM [facility] Oxyhemoglobin Arterial 97.1 % 07/01/2025 9:18 PM [facility] Dexoyhemoglobin (HHB) % 1.1 % 07/01/2025 9:18 PM [facility] Methemoglobin 0.8 0.0 - 2.0 % 07/01/2025 9:18 PM [facility] Carboxyhemoglobin 1.0 0.0 - 2.0 % 2024 9:18 PM [facility] Comment:Carboxyhemoglobin No rmal Concentration: Non-smokers: 0-2%; Smokers: 0- 9%; Toxic: >20% O2 Content Arterial 17.5 Interpret within clinical context ml/dL 07/01/2025 9:18 PM [facility] Hemoglobin by COOX 12.4 12.0 - 17.6 g/dL 07/01/2025 9:18 PM [facility] O2 Saturation Arterial 99 90 - 100 % 07/01/2025 9:18 PM [facility] Sodium Whole Blood 133(L) 135 - 145 mmol/L 07/01/2025 9:18 PM [facility] Potassium Whole Blood 5.0 3.5 - 5.5 mmol/L 07/01/2025 9:18 PM [facility] Chloride WB 104 78 - 107 mmol/L 07/01/2025 9:18 PM [facility] Calcium Ionized 1.14 mmol/L 9:18 PM [facility] Ionized Calcium pH Adjusted 1.09(L) 1.19 - 1.34 mmol/L 07/01/2025 9:18 PM [facility] Anion Gap (AG) Arterial 9 6 - 16 mmol/L 07/01/2025 9:18 PM [facility] Glucose WB 100(H) 70 - 99 mg/dL 07/01/2025 9:18 PM [facility] Lactic Acid Whole Blood 1.8 <=2.0 mmol/L 07/01/2025 9:18 PM [facility] Blood, arterial ARTERIAL BLOOD SPECIMEN / Unknown 07/01/2025 9:18 PM [employer] 07/01/2025 9:19 PM [facility] us Carlos Parkinson MD LAB - POINT OF CARE ORDERABLES Final Result [facility] [address] [place] [address], [facility] [phone] * TYPE + SCREEN PANEL (07/01/2025 8:11 PM [facility]) Antibody Screen NEG 8:59 PM [facility] BLOOD BANK LAB ABO Rh A POS 07/01/2025 8:59 PM [facility] BLOOD [facility]ANK LAB Blood Bank BLOOD SPECIMEN / Unknown Venipuncture / Unknown 07/01/2025 8:11 PM [employer] 07/01/2025 8:16 PM [employer] us Gregg Swenson DO LAB - BLOOD BANK ORDERABLES Final Result [facility]OD [facility] [address] [place] [address], [facility] [phone] * PREPARE (CROSSMATCH) RBC UNIT(S), 6 Units (07/01/2025 8:11 PM [employer]) Unit Description AS1 LR PRBC [facility] BLOOD [facility] Unit ABO A [facility] Unit Rh POS [facility] Product Number R02 [facility] B LOOD BANK LAB Unit Donor # [id number] [facility] Unit Status released [facility] BLOO D BANK LAB Product Code [id number] [facility] OD [facility] Blood Type Barcode 6200 [facility] Expiration Date [facility] BLOOD [facility] LAB Unit Description AS1 LR PRBC [facility]OD [facility] Unit ABO A [facility] Unit POS [facility] BLOOD [facility] Product Number R02 [facility] B LOOD BANK LAB Unit Donor # [id number] [facility] Unit Status released [facility] BL[facility] D [facility] LAB Product Code [id number] [facility] OD BANK LAB Blood Type Barcode 6200 [facility] BLOOD [facility] LAB Expiration Date S BLOOD BANK LAB Unit Description AS1 LR PRBC [facility] BLOOD [facility] Unit ABO A [facility]OD [facility] Unit POS [facility] Product Number R02 [facility] B LOOD [facility]ANK LAB Unit Donor # [id number] [facility]OD [facility] Unit Status released [facility] BLOO D BANK LAB Product Code [id number] [facility] Blood Type Barcode 6200 [facility]OD [facility] Expiration Date [facility] BLOOD [facility] Unit Description AS1 LR PRBC [facility] Unit ABO A [facility] Unit POS [facility] Product Number R02 [facility] B LOOD [facility] LAB Unit Donor # [id number] [facility] Unit Status released [facility] BL[facility] D [facility] LAB Product Code [id number] [facility] Blood Type Barcode 6200 [facility] BLOOD [facility] Expiration Date S BLOOD BANK LAB Unit Description AS1 LR PRBC [facility] Unit ABO A [facility] Unit Rh POS [facility] Product Number R02 [facility] B LOOD BANK LAB Unit Donor # [id number] [facility] Unit Status released [facility] BL[facility] D [facility] LAB Product Code [id number] [facility] Blood Type Barcode 6200 [facility] BLOOD [facility] LAB Expiration Date S BLOOD BANK LAB Unit Description AS1 LR PRBC [facility]OD [facility] Unit ABO A [facility]OD [facility] Unit Rh POS [facility] BLOOD [facility] Product Number R02 [facility] B LOOD [facility] LAB Unit Donor # [id number] [facility] Unit Status released [facility] BLOO D BANK LAB Product Code [id number] [facility] OD [facility] Blood Type Barcode 6200 [facility] B[facility]OD [facility] LAB Expiration Date S BLOOD BANK LAB Blood Bank BLOOD SPECIMEN / Unknown 07/01/2025 8:11 PM [employer] 07/01/2025 8:16 PM [employer] Carlos Parkinson MD LAB - BLOOD BANK ORDERABLES Fi nal Result Performing Organization Address City/[facility]/ZIP Co de Phone Number [facility]OD [facility] [address] [place] [address], [facility] [phone] * PREPARE PLATELET PHERESIS UNIT(S), 2 Units (07/01/2025 8:11 PM [employer]) Unit Description N/A [facility] BLOOD [facility] Blood Bank BLOOD SPECIMEN / Unknown 07/01/2025 8:11 PM [employer] 07/01/2025 8:16 PM [employer] Carlos Parkinson MD LAB - BLOOD BANK ORDERABLES Fi nal Result Performing Organization Address City/[facility]/ZIP Co de Phone Number [facility] [address] [place] [address], [place] [phone] * PREPARE FFP UNIT(S), 6 Units (07/01/2025 8:11 PM [employer]) Unit Description N/A [facility] B[facility] Blood Bank BLOOD SPECIMEN / Unknown 07/01/2025 8:11 PM [employer] 07/01/2025 8:16 PM [employer] Carlos Parkinson MD LAB - BLOOD BANK ORDERABLES Fi nal Result [facility] [address] [place] [address], [facility] [phone] * GLUCOSE - POINT OF CARE (07/01/2025 7:58 PM [employer]) Pathologist [facility] Glucose WB/POC 91 70 - 99 mg/dL 07/01/2025 7:59 PM [employer] [facility] Specimen Type Arterial/C apillary 07/01/2025 7:59 PM [employer] [facility] Blood BLOOD SPECIMEN / Unknown 07/01/2025 7:58 PM [employer] 07/01/2025 7:59 PM [employer] Carlos Parkinson MD LAB - POINT OF CARE ORDERABLES Final Result Performing Organization Address City/[facility]/ZIP Co de Phone Number [facility] [address] [place] [address], [facility] [phone] * (ABNORMAL) HEPATIC FUNCTION PANEL (07/01/2025 7:18 PM [employer]) Pathologist [facility] Protein Total 6.2 6.0 - 8.3 g/dL 12:49 AM [facility] Albumin 2.1(L) 3.4 - 5.0 g/dL 07/02/2025 12:49 AM [facility] Bilirubin Total 1.8(H) 0.2 - 1.2 mg/dL 10/2024 12:49 AM [facility] Bilirubin Conjugated 1.3(H) 0.1 - 0.5 mg/dL 07/02/2025 12:49 AM [facility] Bilirubin Unconjugated 0.5 Unconjugated Bilirubin is a calculated value: Reference ranges have not been established. mg/dL 07/02/2025 12:49 AM [facility] Alkaline Phosphatase 112 40 - 150 U/L 07/02/2025 12:49 AM [facility] ALT 39 5 - 55 U/L 07/02/2025 12:49 AM [facility] AST 43(H) 5 - 34 U/L 07/02/2025 12:49 AM [facility] Albumin/Globulin Ratio 0.5(L) 1.1 - 2.3 07/02/2025 12:49 AM [facility] Blood BLOOD SPECIMEN / Unknown Venipuncture / Unknown 07/01/2025 7:18 PM [employer] 07/01/2025 7:25 PM [facility] us Gregg Swenson DO LAB - CHEMISTRY ORDERABLES F inal Result [address] [address], [facility] [phone] * (ABNORMAL) DIFFERENTIAL MANUAL (07/01/2025 7:18 PM [employer]) Neutrophil % 93(H) 41 - 74 % 07/01/2025 8:27 PM [facility] Lymphocyte % 2(L) 17 - 47 % 07/01/2025 8:27 PM [facility] Monocyte % 5 3 - 11 % 07/01/2025 8:27 PM [facility] Neutrophil Absolute 22.69(H) 1.60 - 7.50 x10E9/L 07/01/2025 8:27 PM [facility] Lymphocyte Absolute 0.49(L) 1.00 - 4.40 x10E9/L 07/01/2025 8:27 PM [facility] Monocyte Absolute 1.22(H) 0.15 - 1.00 x10E9/L 07/01/2025 8:27 PM [facility] RBC Morphology REVIEWED 07/01/2025 8:27 PM [facility] William Cells MODERATE(A) (none) 07/01/2025 8:27 PM [facility] Schistocytes FEW(A) (none) 07/01/2025 8:27 PM [facility] Platelet Clumps PRESENT(A) (none) 8:27 PM [facility] Blood BLOOD SPECIMEN / Unknown Venipuncture / Unknown 07/01/2025 7:18 PM [employer] 07/01/2025 7:25 PM [employer] us Carlos Parkinson MD LAB - HEMATOLOGY ORDERABLES Fi nal Result [facility] [address] [place] [address], [facility] [phone] * (ABNORMAL) TEG 6S PLATELET MAPPING (07/01/2025 7:18 PM [employer]) TEGPLM (Max Amplitude) Koalin >71.0(H) 53.0 - 68.0 mm 07/01/2025 8:19 PM [facility] TEGPLM (Max Amplitude) ACTF >30.0(H) 2.0 - 19.0 mm 07/01/2025 8:19 PM [facility] TEGPLM (Max Amplitude) ADP 55.2 45.0 - 69.0 mm 07/01/2025 8:19 PM [facility] TEGPLM (Max Amplitude) AA 67.8 51.0 - 71.0 mm 07/01/2025 8:19 PM [facility] TEGPLM %Inhibition ADP 07/01/2025 8:19 PM [facility] Comment:1 or more values are outside of the TEG maximum reportable ranges, calculation cannot be determined. TEGPLM %Inhibition AA 07/01/2025 8:19 PM [facility] Comment:1 or more values are outside of the TEG maximum reportable ranges, calculation cannot be determined. TEGPLM %Aggregation ADP 07/01/2025 8:19 PM [facility] Comment:1 or more values are outside of the TEG maximum reportable ranges, calculation cannot be determined. TEGPLM % Aggregation AA 07/01/2025 8:19 PM [facility] Comment:1 or more values are outside of the TEG maximum reportable ranges, calculation cannot be determined. Blood BLOOD SPECIMEN / Unknown Venipuncture / Unknown 07/01/2025 7:18 PM [employer] 07/01/2025 7:38 PM [employer] Carlos Parkinson MD LAB - HEMATOLOGY ORDERABLES Fi nal Result Performing Organization Address [facility] Co de Phone Number [address] [address], [facility] [phone] * (ABNORMAL) TEG 6 GLOBAL HEMOSTASIS W/ LYSIS (07/01/2025 7:18 PM [employer]) Citrated Kaolin R (Reaction Time) 9.3(H) 4.6 - 9.1 min 07/01/2025 8:38 PM [facility] Comment:CK R result above no rmal range. Consistent with hypocoagulable clotting factors. Consider presence of clotting factor deficiency and/or anti-coagulant. Citrated Kaolin LY30 (Lysis) 0.0 0.0 - 2.6 % 07/01/2025 8:38 PM [employer] [facility] Citrated Functional Fibrinogen MA (Max Amplitude) >52.0(H) 15.0 - 32.0 mm 07/01/2025 8:38 PM [facility] Comment:CFF MA above normal range. Consistent with elevated fibrinogen contribution to clot strength. Citrated RapidTEG MA (Max Amplitude) 74.6(H) 52.0 - 70.0 mm 07/01/2025 8:38 PM [facility] Blood BLOOD SPECIMEN / Unknown Venipuncture / Unknown 07/01/2025 7:18 PM [employer] 07/01/2025 7:38 PM [employer] us Carlos Parkinson MD LAB - HEMATOLOGY ORDERABLES Fi nal Result Performing Organization Address City/[facility]/ZIP Co de Phone Number [address] [address], [facility] [phone] * (ABNORMAL) PROLACTIN (07/01/2025 7:18 PM [employer]) Prolactin 18.7(H) 2.1 - 17.7 ng/mL 07/04/2025 3:16 PM [employer] [facility] ([facility]) Comment: REFERENCE INTERVAL: Prolactin Access complete set of age- and/or gender-specific reference intervals for this test in the [facility] Laboratory Test Directory ([email or web address]). Performed By: [facility] [address] [place] [address] Regulatory Product Manager: Chava Osborne MD, PhD CLIA Number: [id number] Blood BLOOD SPECIMEN / Unknown Venipuncture / Unknown 07/01/2025 7:18 PM [employer] 07/01/2025 7:24 PM [employer] Carlos Parkinson MD LAB - CHEMISTRY ORDERABLES Fin al Result Performing Organization Address [facility] Co de Phone Number [facility]) [address] [place] [address] * (ABNORMAL) PT-INR (07/01/2025 7:18 PM [employer]) Pathologist [facility] PT 33.1(H) 12.1 - 14.8 Seconds 07/01/2025 7:50 PM [employer] [facility] INR 3.4 See Comment 07/01/2025 7:50 PM [employer] [facility] Comment:The suggested therap eutic range for standard coumadin (warfarin) therapy is an INR of 2.0-3.0. For high-risk patients (Mechanical Mitral Valve Prosthesis, etc.), the suggested prophylactic therapeutic range is an INR of 2.5-3.5. Blood BLOOD SPECIMEN / Unknown Venipuncture / Unknown 07/01/2025 7:18 PM [employer] 07/01/2025 7:24 PM [employer] us Carlos Parkinson MD LAB - COAGULATION ORDERABLES F inal Result Performing Organization Address [facility]/ZIP Co de Phone Number [facility] [address] [place] [address], [place] [phone] * LACTIC ACID BLOOD REFLEX TO REPEAT (07/01/2025 7:18 PM [employer]) Pathologist [facility] Lactic Acid-Stat 1.9 <=2.0 mmol/L 07/01/2025 7:56 PM [facility] Blood BLOOD SPECIMEN / Unknown Venipuncture / Unknown 07/01/2025 7:18 PM [employer] 07/01/2025 7:25 PM [employer] us Carlos Parkinson MD LAB - CHEMISTRY ORDERABLES Fin al Result Performing Organization Address [facility]/State/ZIP Co de Phone Number [facility] [address] [place] [address], [facility] [phone] * (ABNORMAL) COMPREHENSIVE METABOLIC PANEL (07/01/2025 7:18 PM [employer]) BUN 46(H) 7 - 26 mg/dL 07/01/2025 7:54 PM [facility] Creatinine 1.74(H) 0.71 - 1.16 mg/dL 07/01/2025 7:54 PM [facility] Sodium 138 136 - 145 mmol/L 07/01/2025 7:54 PM [facility] Potassium 5.0(H) 3.5 - 4.5 mmol/L 07/01/2025 7:54 PM [facility] Chloride 105 98 - 107 mmol/L 07/01/2025 7:54 PM [facility] CO2 24 22 - 29 mmol/L 07/01/2025 7:54 PM [facility] Glucose 90 70 - 99 mg/dL 07/01/2025 7:54 PM [facility] Calcium 8.8 8.4 - 10.2 mg/dL 07/01/2025 7:54 PM [facility] Protein Total 6.5 6.0 - 8.3 g/dL 07/01/2025 7:54 PM [facility] Albumin 2.1(L) 3.4 - 5.0 g/dL 07/01/2025 7:54 PM [facility] Bilirubin Total 1.8(H) 0.2 - 1.2 mg/dL 07/01/2025 7:54 PM [facility] Alkaline Phosphatase 115 40 - 150 U/L 07/01/2025 7:54 PM [facility] ALT 41 5 - 55 U/L 07/01/2025 7:54 PM [facility] AST 44(H) 5 - 34 U/L 07/01/2025 7:54 PM [facility] Anion Gap 9 6 - 16 07/01/2025 7:54 PM [facility] BUN/Creatinine Ratio 26(H) 7 - 23 07/01/2025 7:54 PM [facility] Osmolality Calculated 297(H) 275 - 295 mOsm/kg 07/01/2025 7:54 PM [facility] Albumin/Globulin Ratio 0.5(L) 1.1 - 2.3 07/01/2025 7:54 PM [facility] eGFR by CKD-EPI 43(L) >=90 mL/min/1.7 3 m2 07/01/2025 7:54 PM [facility] Comment:Estimated Glomerular Filtration Rate (eGFR) calculated using the CKD-EPI Creatinine Equation (2020), per the National Kid[employer] and [place] [employer] recommendations. Blood BLOOD SPECIMEN / Unknown Venipuncture / Unknown 07/01/2025 7:18 PM [employer] 07/01/2025 7:25 PM [facility] us Carlos Parkinson MD LAB - CHEMISTRY ORDERABLES Fin al Result Performing Organization Address City/State/[facility] Co de Phone Number [facility] [address] [place] [address], [facility] [phone] * (ABNORMAL) CBC W AUTO DIFFERENTIAL (07/01/2025 7:18 PM [employer]) WBC 24.4(H) 4.0 - 10.7 x10E9/L 07/01/2025 8:27 PM [facility] RBC Count 3.89(L) 4.30 - 5.80 x10E12/L 07/01/2025 8:27 PM [facility] Hemoglobin 13.0(L) 13.3 - 17.5 g/dL 07/01/2025 8:27 PM [facility] Hematocrit 38.9 38.7 - 51.1 % 07/01/2025 8:27 PM [facility] MCV 100.0(H) 80.0 - 98.0 fL 07/01/2025 8:27 PM [facility] MCH 33.4 26.7 - 33.6 pg 07/01/2025 8:27 PM [facility] MCHC 33.4 31.7 - 36.3 g/dL 07/01/2025 8:27 PM [facility] RDW-CV 14.0 11.3 - 14.8 % 07/01/2025 8:27 PM [facility] Platelet Count 272 150 - 420 x10E9/L 07/01/2025 8:27 PM [facility] MPV 10.8 7.8 - 11.4 fL 07/01/2025 8:27 PM [facility] Blood BLOOD SPECIMEN / Unknown Venipuncture / Unknown 07/01/2025 7:18 PM [employer] 07/01/2025 7:25 PM [facility] Carlos Parkinson MD LAB - HEMATOLOGY ORDERABLES Fi nal Result Performing Organization Address [facility]/State/[facility] Co de Phone Number [facility] [address] [place] [address], [facility] [phone] documented in this encounter Visit Diagnoses Diagnosis Incarcerated ventral hernia- Primary Ventral hernia, unspecified, with obstruction Generalized abdominal pain Abdominal pain, generalized Trauma Injury, other and unspecified, unspecified site Ventral hernia with gangrene Incarcerated ventral hernia Ventral hernia, unspecified, with obstruction Chronic atrial fibrillation (HCC) Atrial fibrillation Acute hypoxic respiratory failure (HCC) Necrotizing soft tissue infection Generalized abdominal pain Abdominal pain, generalized Necrotizing soft tissue infection Peritonitis (HCC) Unspecified peritonitis Acute hypoxic respiratory failure (HCC) Septic shock (HCC) LARISA (acute kidney injury) Acute kidney failure, unspecified Chronic atrial fibrillation (HCC) Atrial fibrillation Cardiomegaly Diastolic congestive heart failure (HCC) Unspecified diastolic heart failure Morbid (severe) obesity due to excess calories (HCC) Hypothyroidism Unspecified hypothyroidism Obstructive sleep apnea Obstructive sleep apnea (adult) (pediatric) Chronic anticoagulation Encounter for long-term (current) use of anticoagulants documented in this encounter Administered Medications Inactive Administered Medications - up to 3 most recent administrations Medication Order MAR Action Action Date Dose Rate Site 0.9% NaCl injection 1-10 mL 1-10 mL, Intracatheter, PRN, other, peripheral line flush, Starting on Wed07/01/25 at 1859, Until Wed07/20/25 at 1603, Flush peripheral IV catheter with 1-10 mL of normal saline before and after medications and prn to clear blood from the line or to verify patency. $ Given 07/10/2025 11:24 AM [employer] 5 mL 0.9% NaCl injection 3 mL 3 mL, Intracatheter, EVERY 8 HOURS, First dose on [place] 07/01/25 at 2200, Until Discontinued, Flush peripheral IV catheter with 3 mL of normal saline every 8 hours. $ Given 07/20/2025 5:22 AM [employer] 3 mL $ Given 07/19/2025 8:52 PM [employer] 3 mL $ Given 07/19/2025 1:59 PM [employer] 3 mL acetaminophen (Ofirmev) injection 1,000 mg 1,000 mg, at 400 mL/hr, Intravenous, EVERY 6 HOURS, 8 doses, First dose on [place] 07/05/25 at 1200, Last dose on [facility] 07/07/25 at 0600, Patient preference for lesser PRN pain meds may be honored when the patient requests a less strong medication, a lower dose, or a less intrusive route of administration when the lesser drug, dose and route have been ordered for the patient. This patient request must be documented in the MAR. If both oral and IV options are ordered for the same pain severity, give oral first unless patient cannot tolerate oral intake., Does your patient have an order for nothing by mouth or per tube (including meds) and a contraindication to rectal administration? Yes, Does your patient have a contraindication to NSAIDs (ie CrCl < 60 ml/min, increased risk of bleed, hypersensitivity to ASA or NSAIDs)? No, Is your patient either post-op colorectal, cardio-thoracic, or a case lasting > 5 hours? Yes $ New Bag/Syringe 07/07/2025 12:38 AM [employer] 1,000 mg 400 mL/hr $ New Bag/Syringe 07/06/2025 6:14 PM [employer] 1,000 mg 400 mL /hr Rate Change 07/06/2025 12:47 PM [employer] 5 mL/hr acetaminophen (Tylenol) tablet 650 mg 650 mg, Oral, EVERY 6 HOURS, First dose on [facility] 07/07/25 at 0615, Until Discontinued, Patient preference for lesser PRN pain meds may be honored when the patient requests a less strong medication, a lower dose, or a less intrusive route of administration when the lesser drug, dose and route have been ordered for the patient. This patient request must be documented in the MAR. If both oral and IV options are ordered for the same pain severity, give oral first unless patient cannot tolerate oral intake. $ Given 07/07/2025 6:08 AM [employer] 650 mg acetaminophen (Tylenol) tablet 650 mg 650 mg, Oral, EVERY 6 HOURS, First dose (after last modification) on 07/07/25 at 1200, Until Discontinued, Patient preference for lesser PRN pain meds may be honored when the patient requests a less strong medication, a lower dose, or a less intrusive route of administration when the lesser drug, dose and route have been ordered for the patient. This patient request must be documented in the MAR. If both oral and IV options are ordered for the same pain severity, give oral first unless patient cannot tolerate oral intake. $ Given 07/18/2025 5:54 AM [employer] 650 mg $ Given 07/18/2025 12:57 AM [employer] 650 mg $ Given 07/17/2025 5:21 PM [employer] 650 mg acetylcysteine (Mucomyst) 20 % solution 600 mg 600 mg (3 mL), Inhalation, EVERY 4 HR WHILE AWAKE, First dose on [place] 07/05/25 at 1445, Until Discontinued $ Given 07/20/2025 9:44 AM [employer] 600 mg $ Given 07/20/2025 5:02 AM [employer] 600 mg $ Given 07/19/2025 11:05 PM [employer] 600 mg albumin human 5 % infusion 25 g 25 g, at 999 mL/hr, Intravenous, ONCE, 1 dose, On 07/02/25 at 1545 $ New Bag/Syringe 07/02/2025 3:26 PM [employer] 25 g 999 mL/hr albuterol-ipratropium (Duo-Neb) nebulizer solution 3 mL 3 mL, Inhalation, EVERY 6 HOURS, First dose on [place] 07/05/25 at 1800, Until Discontinued $ Given 07/06/2025 4:28 PM [employer] 3 mL $ Given 07/06/2025 8:33 AM [employer] 3 mL $ Given 07/06/2025 6:31 AM [employer] 3 mL albuterol-ipratropium (Duo-Neb) nebulizer solution 3 mL 3 mL, Inhalation, EVERY 4 HR WHILE AWAKE, 1825 doses, First dose on Wed07/06/25 at 1700, Last dose on Wed07/06/26 at 1400 $ Given 07/12/2025 9:06 AM [employer] 3 mL $ Given 07/11/2025 10:27 PM [employer] 3 mL $ Given 07/11/2025 1:17 PM [employer] 3 mL albuterol-ipratropium (Duo-Neb) nebulizer solution 3 mL 3 mL, Inhalation, EVERY 6 HOURS, First dose (after last modification) on [place] 07/12/25 at 1800, Until Discontinued $ Given 07/20/2025 12:31 PM [employer] 3 mL $ Given 07/20/2025 5:02 AM [employer] 3 mL $ Given 07/19/2025 11:05 PM [employer] 3 mL ampicillin-sulbactam (Unasyn) 3 g in NaCl IV 0.9 % 100 mL IVPB 3 g, at 200 mL/hr, Intravenous, EVERY 6 HOURS, First dose on Wed07/09/25 at 0830, Until Discontinued, Indication for anti-infective therapy: Documented infection, Site of anti-infective therapy: Intra-abdominal $ New Bag/Syringe 07/11/2025 11:55 AM [employer] 3 g 200 mL/hr $ New Bag/Syringe 07/11/2025 5:30 AM [employer] 3 g 200 mL /hr $ New Bag/Syringe 07/10/2025 11:13 PM [employer] 3 g 200 m L/hr artificial tears ophthalmic ointment Each Eye, EVERY 8 HOURS, First dose on Wed07/02/25 at 0600, Until Discontinued, Place a small strip of ointment into the eye. Wait at least 5 minutes before administering other ophthalmic medications. $ Given 07/18/2025 5:57 AM [employer] $ Given 07/17/2025 10:10 PM [employer] $ Given 07/17/2025 1:17 PM [employer] atorvastatin (Lipitor) tablet 80 mg 80 mg, Oral, AT BEDTIME, First dose on Wed07/06/25 at 2100, Until Discontinued $ Given 07/06/2025 8:26 PM [employer] 80 mg atorvastatin (Lipitor) tablet 80 mg 80 mg, Oral, AT BEDTIME, First dose (after last modification) on Wed07/07/25 at 2100, Until Discontinued $ Given 07/19/2025 8:40 PM [employer] 80 mg $ Given 07/18/2025 9:31 PM [employer] 80 mg $ Given 07/17/2025 10:09 PM [employer] 80 mg calcium gluconate 2 g in 100 mL NaCl 0.675% 2 g, at 100 mL/hr, Intravenous, ONCE, 1 dose, On Wed07/03/25 at 0530 Current Rate 07/03/2025 6:00 AM [employer] 100 mL/hr $ New Bag/Syringe 07/03/2025 5:51 AM [employer] 2 g 100 mL /hr calcium gluconate 2 g in 100 mL NaCl 0.675% 2 g, at 100 mL/hr, Intravenous, ONCE, 1 dose, On Wed07/04/25 at 0200 $ New Bag/Syringe 07/04/2025 1:51 AM [employer] 2 g 100 mL/hr chlorhexidine (Peridex) 0.12 % oral solution 15 mL 15 mL, Mouth/Throat, 2 TIMES DAILY, First dose on Wed07/02/25 at 0900, Until Discontinued, Swab oral mucosa for 30 seconds. Do not brush teeth immediately after use. . WASTE DISPOSAL INSTRUCTIONS: Black Bin Disposal required. $ Given 07/17/2025 10:10 PM [employer] 15 mL $ Given 07/17/2025 9:29 AM [employer] 15 mL $ Given 07/16/2025 9:46 PM [employer] 15 mL clindamycin (Cleocin) 900 mg in 50 mL D5W IVPB 900 mg, at 100 mL/hr, Intravenous, EVERY 8 HOURS, First dose on Wed07/01/25 at 1945, Until Discontinued, Indication for anti-infective therapy: Suspected infection, Site of anti-infective therapy: Skin/soft tissue $ New Bag/Syringe 07/09/2025 3:39 AM [employer] 900 mg 100 mL/hr $ New Bag/Syringe 07/08/2025 7:58 PM [employer] 900 mg 100 mL /hr $ New Bag/Syringe 07/08/2025 10:01 AM [employer] 900 mg 100 m L/hr fentaNYL (PF) (Sublimaze) injection 50 mcg 50 mcg, Intravenous, ONCE, 1 dose, On Wed07/06/25 at 1315, Patient preference for lesser PRN pain meds may be honored when the patient requests a less strong medication, a lower dose, or a less intrusive route of administration when the lesser drug, dose and route have been ordered for the patient. This patient request must be documented in the MAR. If both oral and IV options are ordered for the same pain severity, give oral first unless patient cannot tolerate oral intake. $ Given 07/06/2025 1:02 PM [employer] 50 mcg fentaNYL (Sublimaze) bolus from bag 50 mcg 50 mcg, Intravenous, BOLUS FROM BAG PRN, CPOT goal, Starting on 07/01/25 at 2342, Until [place] 07/05/25 at 1433, Bolus from bag every 5 minutes to reach CPOT goal. Can give bolus before anticipated painful stimuli. Contact physician if unable to achieve CPOT goal after administering 4 boluses. If a sedative is ordered, titrate/administer opioid first to achieve CPOT goal, followed by titration/administration of sedative to achieve RASS goal. Bolus From Bag 07/05/2025 10:30 AM [employer] 50 mcg Bolus From Bag 07/05/2025 10:25 AM [employer] 50 mcg Bolus From Bag 07/03/2025 4:23 AM [employer] 50 mcg fentaNYL (Sublimaze) injection 0.05 mg/mL ADS Med 1 dose, Starting on Wed07/06/25 at 1300, Until Wed07/06/25 at 1302, Created by cabinet override Patient preference for lesser PRN pain meds may be honored when the patient requests a less strong medication, a lower dose, or a less intrusive route of administration when the lesser drug, dose and route have been ordered for the patient. This patient request must be documented in the MAR. If both oral and IV options are ordered for the same pain severity, give oral first unless patient cannot tolerate oral intake. fentaNYL 2500 mcg/50mL infusion 0-200 mcg/hr (0-4 mL/hr), Intravenous, CONTINUOUS, Starting on 07/02/25 at 0015, Until [place] 07/05/25 at 1433, Above CPOT goal: bolus every 5 minutes until goal CPOT then increase rate per order. Can give bolus before anticipated painful stimuli. Contact physician if unable to achieve CPOT goal after administering 4 boluses. At CPOT goal and no change in 4 hours: Decrease rate per order If significant hemodynamic changes, notify physician for instructions. Notify physician for inability to reach goals despite maximal dosage. If a sedative is ordered, titrate/administer opioid first to achieve CPOT goal, followed by titration/administration of sedative to achieve RASS goal., Titration Parameters: Analgesia, Indication: Analgesia, Initiate infusion at: 25 mcg/hr, Titrate infusion by: 25 mcg/hr, Titrate every: 5 minutes, Notify physician if: Unachievable CPOT goal despite max dose Rate Change 07/05/2025 10:33 AM [employer] 50 mcg/hr 1 mL/hr $ New Bag/Syringe 07/05/2025 9:45 AM [employer] 25 mcg/hr 0.5 mL /hr Current Rate 07/03/2025 12:00 PM [employer] 125 mcg/hr 2.5 mL/hr fluconazole (Diflucan) 400 mg in 200 mL saline IVPB 400 mg, at 100 mL/hr, Intravenous, EVERY 24 HOURS, First dose on 07/02/25 at 1015, Until Discontinued, Indication for anti-infective therapy: Documented infection, Site of anti-infective therapy: Intra-abdominal Current Rate 07/02/2025 10:08 AM [employer] 100 m L/hr $ New Bag/Syringe 07/02/2025 10:06 AM [employer] 400 mg 100 m L/hr furosemide (Lasix) injection 20 mg 20 mg, Intravenous, ONCE, 1 dose, On Wed07/04/25 at 0530, Protect from light $ Given 07/04/2025 5:20 AM [employer] 20 mg furosemide (Lasix) injection 20 mg 20 mg, Intravenous, ONCE, 1 dose, On Wed07/04/25 at 1115, Protect from light $ Given 07/04/2025 10:58 AM [employer] 20 mg furosemide (Lasix) injection 20 mg 20 mg, Intravenous, 2 TIMES DAILY (diuretics), First dose on [place] 07/05/25 at 0815, Until Discontinued, Protect from light $ Given 07/09/2025 8:38 AM [employer] 20 mg $ Given 07/08/2025 4:09 PM [employer] 20 mg $ Given 07/08/2025 8:44 AM [employer] 20 mg furosemide (Lasix) injection 40 mg 40 mg, Intravenous, ONCE, 1 dose, On 07/03/25 at 0530, Protect from light $ Given 07/03/2025 5:45 AM [employer] 40 mg furosemide (Lasix) injection 40 mg 40 mg, Intravenous, ONCE, 1 dose, On Wed07/04/25 at 2230, Protect from light $ Given 07/04/2025 10:38 PM [employer] 40 mg furosemide (Lasix) tablet 40 mg 40 mg, Oral, 2 TIMES DAILY (diuretics), First dose on Wed07/09/25 at 1700, Until Discontinued $ Given 07/20/2025 9:59 AM [employer] 40 mg $ Given 07/19/2025 5:11 PM [employer] 40 mg $ Given 07/19/2025 9:20 AM [employer] 40 mg heparin 25,000 units in 250 mL (100 units/mL) in 0.45% NaCl 0-40 Units/kg/hr 122.2 kg Adjusted weight (0-48.88 mL/hr, rounded to 0-48.9 mL/hr), Intravenous, CONTINUOUS, Starting on Wed07/06/25 at 1245, Until Wed07/09/25 at 0818, Use the heparin calculator (scroll during admin) for starting rate, boluses or titrations, and weight selection. Use $New Bag/Syringe action when hanging a new bag, no need to use the calculator. Contact provider if patient requires doses outside the prescribed range. Order timed PTT to be drawn 6 hours after infusion initiated After two consecutive aPTTs drawn 6 hours apart are therapeutic, order aPTT to be drawn the following a.m. and daily, Cardiac Nomogram Goal aPTT (seconds): 69-110, Does patient require INITIAL Heparin Bolus? No Rate Change 07/09/2025 4:18 AM [employer] 18 Units/kg/hr 22 mL/hr $ New Bag/Syringe 07/09/2025 12:54 AM [employer] 18 Units/kg/hr 2 2 mL/hr Rate Change 07/08/2025 8:53 PM [employer] 18 Units/kg/hr 22 mL/hr heparin 25,000 units in 250 mL (100 units/mL) in 0.45% NaCl 0-40 Units/kg/hr 122.2 kg Adjusted weight (0-48.88 mL/hr, rounded to 0-48.9 mL/hr), Intravenous, CONTINUOUS, Starting on Wed07/09/25 at 0900, Until Wed07/09/25 at 1759, Use the heparin calculator (scroll during admin) for starting rate, boluses or titrations, and weight selection. Use $New Bag/Syringe action when hanging a new bag, no need to use the calculator. Contact provider if patient requires doses outside the prescribed range. Order timed PTT to be drawn 6 hours after infusion initiated After two consecutive aPTTs drawn 6 hours apart are therapeutic, order aPTT to be drawn the following a.m. and daily, Cardiac Nomogram Goal aPTT (seconds): 69-110, Does patient require INITIAL Heparin Bolus? No Rate Change 07/09/2025 11:53 AM [employer] 18 Units/kg/hr 22 mL/hr $ New Bag/Syringe 07/09/2025 11:49 AM [employer] 18 Units/kg/hr 2 2 mL/hr Current Bag - New Order 07/09/2025 8:45 AM [employer] 18 Units/kg /hr 22 mL/hr heparin bolus from bag 0-4,000 Units 0-4,000 Units (rounded from 0-4,888 Units = 0-40 Units/kg 122.2 kg Adjusted weight), Intravenous, BOLUS FROM BAG PRN, heparin nomogram bolus, Starting on Wed07/06/25 at 1205, Until Wed07/09/25 at 0818 Bolus From Bag 07/06/2025 9:34 PM [employer] 4,000 Units heparin injection 7,500 Units 7,500 Units, Subcutaneous, EVERY 8 HOURS, First dose on Wed07/02/25 at 1400, Until Discontinued $ Given 07/06/2025 5:56 AM [employer] 7,500 Units Abd Right Lower Quadrant $ Given 07/05/2025 10:08 PM [employer] 7,500 Units Abd Left Lower Quadrant $ Given 07/05/2025 1:51 PM [employer] 7,500 Units A bd Right Lower Quadrant HYDROmorphone (Dilaudid) injection 0.4 mg 0.4 mg, Intravenous, EVERY 4 HOURS PRN, moderate pain, Starting on [place] 07/05/25 at 0913, Until [place] 07/12/25 at 0725, Patient preference for lesser PRN pain meds may be honored when the patient requests a less strong medication, a lower dose, or a less intrusive route of administration when the lesser drug, dose and route have been ordered for the patient. This patient request must be documented in the MAR. If both oral and IV options are ordered for the same pain severity, give oral first unless patient cannot tolerate oral intake. $ Given 07/09/2025 9:40 AM [employer] 0.4 mg $ Given 07/08/2025 1:39 PM [employer] 0.4 mg $ Given 07/07/2025 11:18 AM [employer] 0.4 mg insulin aspart (NovoLOG) pen 0-6 Units 0-6 Units, Subcutaneous, EVERY 4 HOURS, First dose on 07/08/25 at 0400, Until Discontinued, Low Dose: Correction Insulin BG (mg/dL) Corrective Action LESS than 70 follow Hypoglycemic guidelines 70-180 NO Correction insulin 181-220 GIVE 2 units of insulin 221-260 GIVE 3 units of insulin 261-300 GIVE 4 units of insulin 301-350 GIVE 5 units of insulin Greater than 350 GIVE 6 units of insulin and notify physician DO NOT HOLD if Patient is NPO. If patient has orders for Mealtime insulin combine and give at same time. . WASTE DISPOSAL INSTRUCTIONS: Black Bin Disposal required. $ Given 07/14/2025 12:00 AM [employer] 3 Units Abd Left Upper Quadrant $ Given 07/12/2025 8:05 PM [employer] 2 Units Ab dominal Tissue $ Given 07/09/2025 8:39 AM [employer] 2 Units Ab dominal Tissue isolyte-S pH 7.4 infusion at 50 mL/hr, Intravenous, CONTINUOUS, Starting on Wed07/02/25 at 0030, Until Wed07/02/25 at 0546 Current Rate 07/02/2025 3:00 AM [employer] 50 mL/hr Rate Change 07/02/2025 1:28 AM [employer] 50 mL/hr $ New Bag/Syringe 07/02/2025 12:45 AM [employer] 100 m L/hr isolyte-S pH 7.4 infusion at 100 mL/hr, Intravenous, CONTINUOUS, Starting on Wed07/02/25 at 1315, Until Wed07/04/25 at 1050 Current Rate 07/04/2025 7:00 AM [employer] 100 mL/hr $ New Bag/Syringe 07/04/2025 6:40 AM [employer] 100 mL /hr Current Rate 07/04/2025 6:39 AM [employer] 100 mL/hr levothyroxine (Synthroid) tablet 25 mcg 25 mcg, Oral, DAILY AT 0600, First dose on 07/08/25 at 0600, Until Discontinued, Take in the morning on an empty stomach. Do not give within 4 hours of antacids, iron or calcium supplements. $ Given 07/20/2025 5:23 AM [employer] 25 mcg $ Given 07/19/2025 6:13 AM [employer] 25 mcg $ Given 07/18/2025 5:54 AM [employer] 25 mcg levothyroxine sodium (Synthroid) injection 20 mcg 20 mcg, Intravenous, EVERY 48 HOURS, First dose on Wed07/03/25 at 0600, Until Discontinued, IV dose is 80% or less of the oral dose, and given every 48 hrs, What is the indication for IV levothyroxine for this patient? Continuation of chronic therapy $ Given 07/07/2025 6:06 AM [employer] 20 mcg $ Given 07/05/2025 4:46 AM [employer] 20 mcg $ Given 07/03/2025 5:47 AM [employer] 20 mcg micafungin (Mycamine) 200 mg in NaCl IV 0.9 % 100 mL IVPB 200 mg, at 100 mL/hr, Intravenous, EVERY 24 HOURS, First dose on Wed07/02/25 at 1545, Until Discontinued, Flush line Pre/Post Dose with Normal Saline unless running NS as a carrier fluid., Indication for restricted (Tier 2) anti-infective therapy (empiric or definitive treatment): Empiric invasive candidiasis, Site of anti-infective therapy: Intra-abdominal $ New Bag/Syringe 07/11/2025 4:22 PM [employer] 200 mg 100 mL/hr $ New Bag/Syringe 07/10/2025 4:55 PM [employer] 200 mg 100 mL /hr $ New Bag/Syringe 07/09/2025 3:37 PM [employer] 200 mg 100 mL /hr norepinephrine (Levophed) 8 mg/250 ml NS infusion premix 0-0.4 mcg/kg/min 179.2 kg (0-134.4 mL/hr), Intravenous, CONTINUOUS, Starting on Wed07/02/25 at 0030, Until Wed07/04/25 at 0811, Central line required if infused longer than 48 hours or infusing multiple vasopressors, Titration Parameters: Standard Parameters, Indication: Hypotension, Initiate infusion at: 0.05 mcg/kg/min, Titrate infusion by: 0.01-0.05 mcg/kg/min, Titrate every: 1 minute, To maintain a: MAP greater than or equal to 65 mmHg, Notify Physician: unable to maintain ordered clinical parameter despite max dose, Restart Infusion: Medication may be restarted at last dose/rate administered before titrated to off. If infusion has been off for 4 or more hours, contact provider prior to restarting infusion. Rate Change 07/03/2025 4:12 PM [employer] 0.03 mcg/kg/min 10.08 mL/hr Rate Change 07/03/2025 3:58 PM [employer] 0.05 mcg/kg/min 16.8 mL /hr Rate Change 07/03/2025 3:55 PM [employer] 0.07 mcg/kg/min 23.52 m L/hr oxyCODONE (immediate release) (Roxicodone) tablet 10 mg 10 mg, Oral, EVERY 6 HOURS PRN, severe pain, Starting on 07/08/25 at 1529, Until Wed07/18/25 at 0707, Patient preference for lesser PRN pain meds may be honored when the patient requests a less strong medication, a lower dose, or a less intrusive route of administration when the lesser drug, dose and route have been ordered for the patient. This patient request must be documented in the MAR. If both oral and IV options are ordered for the same pain severity, give oral first unless patient cannot tolerate oral intake. $ Given 07/17/2025 10:09 PM [employer] 10 mg $ Given 07/17/2025 10:26 AM [employer] 10 mg $ Given 07/16/2025 9:46 PM [employer] 10 mg oxyCODONE (immediate release) (Roxicodone) tablet 5 mg 5 mg, Oral, EVERY 6 HOURS PRN, moderate pain, Starting on 07/08/25 at 1529, Until Wed07/20/25 at 1603, Patient preference for lesser PRN pain meds may be honored when the patient requests a less strong medication, a lower dose, or a less intrusive route of administration when the lesser drug, dose and route have been ordered for the patient. This patient request must be documented in the MAR. If both oral and IV options are ordered for the same pain severity, give oral first unless patient cannot tolerate oral intake. $ Given 07/19/2025 8:[address] 5 mg $ Given 07/09/2025 3:42 AM [employer] 5 mg oxyCODONE (Roxicodone) oral solution 5 mg 5 mg, Oral, Once, 1 dose, On 07/07/25 at 1430, Patient preference for lesser PRN pain meds may be honored when the patient requests a less strong medication, a lower dose, or a less intrusive route of administration when the lesser drug, dose and route have been ordered for the patient. This patient request must be documented in the MAR. If both oral and IV options are ordered for the same pain severity, give oral first unless patient cannot tolerate oral intake. $ Given 07/07/2025 2:38 PM [employer] 5 mg pantoprazole (Protonix) injection 40 mg 40 mg, Intravenous, DAILY, First dose on Wed07/02/25 at 0900, Until Discontinued, For every 40 mg of pantoprazole mix with 10 mL Normal Saline (final concentration = 4 mg/mL). Inject SLOWLY over 2 min. $ Given 07/08/2025 8:44 AM [employer] 40 mg $ Given 07/07/2025 9:12 AM [employer] 40 mg $ Given 07/06/2025 8:49 AM [employer] 40 mg pantoprazole EC (Protonix) tablet 40 mg 40 mg, Oral, DAILY, First dose on Wed07/09/25 at 0900, Until Discontinued, Do not crush, chew, or cut in half. $ Given 07/20/2025 9:59 AM [employer] 40 mg $ Given 07/19/2025 9:20 AM [employer] 40 mg $ Given 07/18/2025 9:09 AM [employer] 40 mg phenylephrine 100 mcg/mL injection ADS Med 1 dose, Starting on Plalavi 07/05/25 at 1036, Until Pallavi 07/05/25 at 1039, Created by cabinet override $ Given 07/05/2025 10:39 AM [employer] 100 mcg piperacillin - tazobactam (Zosyn) 4.5 g in NaCl IV 0.9 % 110 mL IVPB 4.5 g, at 27.5 mL/hr, Intravenous, EVERY 8 HOURS, First dose on Wed07/01/25 at 2000, Until Discontinued, Indication for anti-infective therapy: Suspected infection, Site of anti-infective therapy: Skin/soft tissue, Intra-abdominal $ New Bag/Syringe 07/09/2025 4:16 AM [employer] 4.5 g 27.5 mL/hr $ New Bag/Syringe 07/08/2025 8:59 PM [employer] 4.5 g 27.5 m L/hr $ New Bag/Syringe 07/08/2025 12:54 PM [employer] 4.5 g 27.5 mL/hr polyethylene glycol 3350 (Miralax) packet 17 g 17 g, Oral, DAILY, First dose on Wed07/09/25 at 0900, Until Discontinued, 17 g dose: mix in 8 ounces of water, juice, soda, coffee or tea prior to administration. For bowel prep check for other instructions. $ Given 07/20/2025 9:59 AM [employer] 17 g $ Given 07/18/2025 9:09 AM [employer] 17 g $ Given 07/17/2025 9:29 AM [employer] 17 g potassium phosphate 15 mmol in 250 mL bolus 15 mmol, at 62.5 mL/hr, Administer over 4 Hours, Intravenous, ONCE, 1 dose, On Wed07/06/25 at 0715, 3 mmol phosphate = 4.4 mEq potassium $ New Bag/Syringe 07/06/2025 8:39 AM [employer] 15 mmol 62.5 mL/hr potassium phosphate 30 mmol in d5w 260 mL bolus premix 30 mmol, at 43.33 mL/hr, Administer over 6 Hours, Intravenous, ONCE, 1 dose, On Wed07/08/25 at 1615, 3 mmol phosphate = 4.4 mEq potassium $ New Bag/Syringe 07/08/2025 4:35 PM [employer] 30 mmol 43.33 mL/hr propofol (Diprivan) 1000 mg in 100 mL infusion 0-50 mcg/kg/min 179.2 kg (0-53.76 mL/hr), Intravenous, CONTINUOUS, Starting on Wed07/02/25 at 0015, Until Pallavi 07/05/25 at 1433, Patient must be mechanically ventilated Above RASS goal: Assess and treat pain first if CPOT greater than 2. If agitation persists increase rate per order. At RASS goal and no change in 4 hours: Decrease rate per order. Below RASS goal (unarousable): Hold infusion until at goal RASS then restart at 50% previous rate. If significant hemodynamic changes notify physician for instructions. Notify physician for inability to reach goals despite maximal dosage. Note: The CPOT goal should be achieved first with the use of the ordered analgesic medication prior to targeting RASS goal with the sedative. Vial and Tubing should be changed and/or discarded every 12 hours., Titration Parameters: Standard Parameters, Indication: Sedation, Initiate infusion at: 5 mcg/kg/min, Titrate infusion by: 5 mcg/kg/min, Titrate every: 2 minutes, Notify physician if: Unachievable RASS goal despite max dose, Titration Priority: 1st, Restart Infusion: Medication may be restarted at last dose/rate administered before titrated to off. If infusion has been off for 4 or more hours, contact provider prior to restarting infusion. Rate Change 07/05/2025 10:38 AM [employer] 25 mcg/kg/min 26.88 mL/hr Rate Change 07/05/2025 10:33 AM [employer] 50 mcg/kg/min 53.76 mL /hr $ New Bag/Syringe 07/05/2025 10:25 AM [employer] 75 mcg/kg/min 80 .64 mL/hr propofol (Diprivan) injection 30 mg 30 mg, Intravenous, ONCE, 1 dose, On Wed07/02/25 at 1230 $ New Bag/Syringe 07/02/2025 12:15 PM [employer] 30 mg rivaroxaban (Xarelto) tablet 20 mg 20 mg, Oral, DAILY WITH DINNER, First dose on Wed07/09/25 at 1800, Until Discontinued, For tube administration, please refer to the MAR References links: Administration Dose of 15 mg or greater should be taken with food $ Given 07/19/2025 5:11 PM [employer] 20 mg $ Given 07/18/2025 5:33 PM [employer] 20 mg $ Given 07/17/2025 5:21 PM [employer] 20 mg sodium - potassium phosphates (K Phos Neutral) tablet 1 tablet 1 tablet, Oral, 2 TIMES DAILY, 2 doses, First dose on Wed07/10/25 at 1115, Last dose on Wed07/10/25 at 2100, Contains Phos 8 mmol, K+ 1.1 mEq, Na 13 mEq per tablet $ Given 07/10/2025 10:55 PM [employer] 1 tablet $ Given 07/10/2025 11:18 AM [employer] 1 tablet sodium bicarbonate 8.4 % 150 mEq in dextrose 5 % infusion 100 mL/hr, Intravenous, CONTINUOUS, Starting on Wed07/02/25 at 0900, Until Wed07/02/25 at 1237 Current Rate 07/02/2025 10:08 AM [employer] 100 mL/hr Current Rate 07/02/2025 9:26 AM [employer] 100 mL/hr $ New Bag/Syringe 07/02/2025 9:07 AM [employer] 100 mL/hr 100 mL /hr sodium bicarbonate 8.4 % 75 mEq in 0.45% NaCl infusion (isotonic fluid) 100 mL/hr, Intravenous, CONTINUOUS, Starting on Wed07/02/25 at 0200, Until Wed07/02/25 at 0546 Current Rate 07/02/2025 6:30 AM [employer] 100 m L/hr Current Rate 07/02/2025 3:00 AM [employer] 100 mL/hr $ New Bag/Syringe 07/02/2025 1:58 AM [employer] 100 mL/hr 100 mL /hr spironolactone (Aldactone) tablet 12.5 mg 12.5 mg, Oral, DAILY, First dose on Wed07/09/25 at 0930, Until Discontinued $ Given 07/20/2025 9:59 AM [employer] 12.5 mg $ Given 07/19/2025 9:20 AM [employer] 12.5 mg $ Given 07/18/2025 9:09 AM [employer] 12.5 mg TPN - CENTRAL LINE - ADULT - DAY 1 at 62.5 mL/hr, Intravenous (Continuous Infusion), TPN - 2199, Starting on Wed07/04/25 at 2200, Until Wed07/05/25 at 2159, Must be infused through a central line. Contains 900 Kcal, 55 g protein and is composed of 680 kcalories Dextrose & 0 kcalories Lipid and will have a 1:1 Acetate:Chloride Ratio with a total volume of 1500 mL. Use DEHP-free tubing and filter (If using BD products, see decision tree for SKU numbers located on the MAR references), Total Kcalories: 900, Protein in grams: 55, Dextrose Kcalories: 680, Pharmacist to manage MVI in PPN/TPN? During MVI shortage events, pharmacist will adjust MVI to be administered 3X weekly. Yes, Salt ratio (chloride:acetate): 1:1 Current Rate 07/05/2025 7:51 PM [employer] 62.5 mL/hr Current Rate 07/05/2025 6:28 AM [employer] 62.5 mL/hr Current Rate 07/05/2025 2:57 AM [employer] 62.5 mL/hr TPN - CENTRAL LINE - ADULT at 61.67 mL/hr, Intravenous (Continuous Infusion), TPN - 2199, Starting on Wed07/05/25 at 2200, Until Wed07/06/25 at 2159, Must be infused through a Central Line HIGH ALERT MEDICATION Use DEHP-free tubing and filter (If using BD products, see decision tree for SKU numbers located on the MAR references), Total Kcalories: 1,800, Protein in grams: 120, Dextrose Kcalories: 924, Lipid Kcalories: 396, Lipid Type: SMOF (recommended for COVID19 patients), Salt ratio (chloride:acetate): 1:1, Volume: Minimum volume, Pharmacist to manage MVI in PPN/TPN? During MVI shortage events, pharmacist will adjust MVI to be administered 3X weekly. Yes $ New Bag/Syringe 07/05/2025 10:11 PM [employer] 61.67 mL/hr TPN - CENTRAL LINE - ADULT at 61.67 mL/hr, Intravenous (Continuous Infusion), TPN - 2199, Starting on 07/06/25 at 2200, Until 07/07/25 at 2159, Must be infused through a Central Line HIGH ALERT MEDICATION Use DEHP-free tubing and filter (If using BD products, see decision tree for SKU numbers located on the MAR references), Total Kcalories: 1,800, Protein in grams: 120, Dextrose Kcalories: 924, Lipid Kcalories: 396, Lipid Type: SMOF (recommended for COVID19 patients), Salt ratio (chloride:acetate): 1:2, Volume: other (specify), Pharmacist to manage MVI in PPN/TPN? During MVI shortage events, pharmacist will adjust MVI to be administered 3X weekly. Yes Current Rate 07/07/2025 7:16 PM [employer] 61.67 mL/hr Current Rate 07/07/2025 6:43 PM [employer] 61.67 mL/hr Current Rate 07/07/2025 5:17 PM [employer] 61.67 mL/hr TPN - CENTRAL LINE - ADULT at 61.67 mL/hr, Intravenous (Continuous Infusion), TPN - 2199, Starting on 07/07/25 at 2200, Until 07/08/25 at 2159, Must be infused through a Central Line HIGH ALERT MEDICATION Use DEHP-free tubing and filter (If using BD products, see decision tree for SKU numbers located on the MAR references), Total Kcalories: 1,800, Protein in grams: 120, Dextrose Kcalories: 924, Lipid Kcalories: 396, Lipid Type: SMOF (recommended for COVID19 patients), Salt ratio (chloride:acetate): 1:2, Volume: other (specify), Pharmacist to manage MVI in PPN/TPN? During MVI shortage events, pharmacist will adjust MVI to be administered 3X weekly. Yes Current Rate 07/08/2025 1:41 PM [employer] 61.67 mL/hr $ New Bag/Syringe 07/07/2025 10:29 PM [employer] 61.67 mL/hr TPN - CENTRAL LINE - ADULT at 61.67 mL/hr, Intravenous (Continuous Infusion), TPN - 2200, Starting on Wed07/08/25 at 2200, Until Wed07/09/25 at 2159, Must be infused through a Central Line HIGH ALERT MEDICATION Use DEHP-free tubing and filter (If using BD products, see decision tree for SKU numbers located on the MAR references), Total Kcalories: 1,800, Protein in grams: 120, Dextrose Kcalories: 924, Lipid Kcalories: 396, Lipid Type: SMOF (recommended for COVID19 patients), Salt ratio (chloride:acetate): 1:2, Volume: other (specify), Pharmacist to manage MVI in PPN/TPN? During MVI shortage events, pharmacist will adjust MVI to be administered 3X weekly. Yes $ New Bag/Syringe 07/08/2025 10:22 PM [employer] 61.67 mL/hr vancomycin (Vancocin) 1,000 mg in NaCl IV 0.9 % 250 mL IVPB 1,000 mg, at 250 mL/hr, Intravenous, ONCE, 1 dose, On Wed07/03/25 at 1615, Indication for anti-infective therapy: Documented infection, Site of anti-infective therapy: Intra-abdominal $ New Bag/Syringe 07/03/2025 5:01 PM [employer] 1,000 mg 250 mL/hr vancomycin (Vancocin) 1,500 mg in 530 mL IVPB 1,500 mg, at 353.33 mL/hr, Intravenous, ONCE, 1 dose, On Wed07/04/25 at 1900, Indication for anti-infective therapy: Suspected infection, Site of anti-infective therapy: Skin/soft tissue, Intra-abdominal $ New Bag/Syringe 07/04/2025 8:02 PM [employer] 1,500 mg 353.33 mL/hr vancomycin (Vancocin) 1,500 mg in 530 mL IVPB 1,500 mg, at 353.33 mL/hr, Intravenous, ONCE, 1 dose, On Pallavi 07/05/25 at 2315, Indication for anti-infective therapy: Suspected infection, Site of anti-infective therapy: Intra-abdominal $ New Bag/Syringe 07/06/2025 12:39 AM [employer] 1,500 mg 353.33 mL/hr vancomycin (Vancocin) 1,500 mg in 530 mL IVPB 1,500 mg, at 353.33 mL/hr, Intravenous, EVERY 12 HOURS, First dose on 07/08/25 at 0600, Until Discontinued, Indication for anti-infective therapy: Suspected infection, Site of anti-infective therapy: Intra-abdominal, Skin/soft tissue $ New Bag/Syringe 07/09/2025 6:20 AM [employer] 1,500 mg 353.33 mL/hr $ New Bag/Syringe 07/08/2025 5:20 PM [employer] 1,500 mg 353.33 mL/hr $ New Bag/Syringe 07/08/2025 6:01 AM [employer] 1,500 mg 353.33 mL/hr vancomycin (Vancocin) 2,000 mg in 540 mL IVPB 2,000 mg, at 270 mL/hr, Intravenous, ONCE, 1 dose, On 07/07/25 at 0700, Indication for anti-infective therapy: Suspected infection, Site of anti-infective therapy: Intra-abdominal, Skin/soft tissue $ New Bag/Syringe 07/07/2025 9:12 AM [employer] 2,000 mg 270 mL/hr vasopressin 0.2 units/mL infusion 0.04 Units/min (12 mL/hr), Intravenous, CONTINUOUS, Starting on Wed07/02/25 at 2100, Until Wed07/04/25 at 0811, Central line required if infused longer than 48 hours or infusing multiple vasopressors, Dose Parameters: Fixed Dose, Indication: Hypotension, Titrate to: Do not titrate. Physician order required for dose change., Notify physician if: MAP less than 65 mmHg Current Rate 07/03/2025 12:00 PM [employer] 0.04 Units/min 12 mL/hr Current Rate 07/03/2025 7:30 AM [employer] 0.04 Units/min 12 mL/h r Current Rate 07/03/2025 7:00 AM [employer] 0.04 Units/min 12 mL/h r documented in this encounter Active and Recently Administered Medications Times are shown in [employer]. Scheduled Medication Order 07/18/2025 07/19/2025 07/20/2025 0.9% NaCl injection 3 mL(Linked Group 1) 3 mL, Intracatheter, EVERY 8 HOURS, First dose on 07/01/25 at 2200, Until Discontinued, Flush peripheral IV catheter with 3 mL of normal saline every 8 hours. 0554 ($ Given - Provider: Cristal Maria RN)1526 ($ Given - Provider: Farnaz Gayle, RN)2132 ($ Given - Provider: Cristal Maria RN) 0614 ($ Given - Provider: Cristal Maria RN)1359 ($ Given - Provider: Delilah Grace, ROBYN)2052 ($ Given - Provider: Susan Whitten, RN) 0522 ($ Given - Provider: Susan Whitten, ROBYN)1400 (Due) acetaminophen (Tylenol) tablet 650 mg (CANCELED) 650 mg, Oral, EVERY 6 HOURS, First dose (after last modification) on 07/07/25 at 1200, Until Discontinued, Patient preference for lesser PRN pain meds may be honored when the patient requests a less strong medication, a lower dose, or a less intrusive route of administration when the lesser drug, dose and route have been ordered for the patient. This patient request must be documented in the MAR. If both oral and IV options are ordered for the same pain severity, give oral first unless patient cannot tolerate oral intake. 0057 ($ Given - Provider: Cristal Maria RN)0554 ($ Given - Provider: Cristal Maria RN) acetylcysteine (Mucomyst) 20 % solution 600 mg 600 mg (3 mL), Inhalation, EVERY 4 HR WHILE AWAKE, First dose on Pallavi 07/05/25 at 1445, Until Discontinued 0507 ($ Given - Provider: Wale Forman RCP)0941 ($ Given - Provider: Lonny Manriquez RCP)1326 ($ Given - Provider: Lonny Manriquez RCP)1721 ($ Given - Provider: Lonny Manriquez RCP)2305 ($ Given - Provider: Wale Forman RCP) 0534 ($ Given - Provider: Wale Forman [employer]OWCASE CUTTER)0903 ($ Given - Provider: Lonny Manriquez PILLOWCASE CUTTER)1354 ($ Given - Provider: Lonny Manriquez RCP)1718 ($ Given - Provider: Lonny Manriquez PILLOWCASE CUTTER)2305 ($ Given - Provider: Angelo Nguyen [facility]) 0502 ($ Given - Provider: Angelo Nguyen PILLOWCASE CUTTER)0944 ($ Given - Provider: Lonny Manriquez PILLOWCASE CUTTER)1400 (Due) albuterol-ipratropium (Duo-Neb) nebulizer solution 3 mL 3 mL, Inhalation, EVERY 6 HOURS, First dose (after last modification) on Pallavi 07/12/25 at 1800, Until Discontinued 0042 ($ Given - Provider: Wale Forman RCP)0507 ($ Given - Provider: Wale Forman PILLOWCASE CUTTER)1209 ($ Given - Provider: Lonny Manriquez PILLOWCASE CUTTER)1721 ($ Given - Provider: Lonny Manriquez [facility])2305 ($ Given - Provider: Wale Forman PILL[employer]CASE CUTTER) 0534 ($ Given - Provider: Wale Forman PILLOWCASE CUTTER)1226 ($ Given - Provider: Lonny Manriquez PILLOWCASE CUTTER)1718 ($ Given - Provider: Lonny Manriquez PILLOWCASE CUTTER)2305 ($ Given - Provider: Angelo Nguyen [employer] C[employer]) 0502 ($ Given - Provider: Angelo Nguyen PILLOWCASE CUTTER)1231 ($ Given - Provider: Lonny Manriquez [employer]CASE C[employer]TER) artificial tears ophthalmic ointment (CANCELED) Each Eye, EVERY 8 HOURS, First dose on Wed07/02/25 at 0600, Until Discontinued, Place a small strip of ointment into the eye. Wait at least 5 minutes before administering other ophthalmic medications. 0557 ($ Given - Provider: Cristal Maria RN) atorvastatin (Lipitor) tablet 80 mg 80 mg, Oral, AT BEDTIME, First dose (after last modification) on 07/07/25 at 2100, Until Discontinued 2130 ($ Given - Provider: Cristal Maria RN) 2039 ($ Given - Provider: Dennis Vale RN) furosemide (Lasix) tablet 40 mg 40 mg, Oral, 2 TIMES DAILY (diuretics), First dose on Wed07/09/25 at 1700, Until Discontinued 0909 ($ Given - Provider: Farnaz Gayle RN)1733 ($ Given - Provider: Farnaz Gayle RN) 0920 ($ Given - Provider: Delilah Grace, ROBYN)1711 ($ Given - Provider: Delilah Grace, ROBYN) 0959 ($ Given - Provider: Les Garcia, ROBYN) levothyroxine (Synthroid) tablet 25 mcg 25 mcg, Oral, DAILY AT 0600, First dose on Wed07/08/25 at 0600, Until Discontinued, Take in the morning on an empty stomach. Do not give within 4 hours of antacids, iron or calcium supplements. 0554 ($ Given - Provider: Cristal Maria RN) 0613 ($ Given - Provider: Cristal Maria RN) 0523 ($ Given - Provider: Susan Whitten RN) pantoprazole EC (Protonix) tablet 40 mg 40 mg, Oral, DAILY, First dose on Wed07/09/25 at 0900, Until Discontinued, Do not crush, chew, or cut in half. 0909 ($ Given - Provider: Farnaz Gayle RN) 0920 ($ Given - Provider: Delilah Grace, ROBYN) 0959 ($ Given - Provider: Les Garcia, ROBYN) polyethylene glycol 3350 (Miralax) packet 17 g 17 g, Oral, DAILY, First dose on Wed07/09/25 at 0900, Until Discontinued, 17 g dose: mix in 8 ounces of water, juice, soda, coffee or tea prior to administration. For bowel prep check for other instructions. 0909 ($ Given - Provider: Farnaz Gayle RN) 0920 (Not Administered - Provider: Delilah Grace RN - Reason: Refused-Patient) 0959 ($ Given - Provider: Les Garcia, ROBYN) rivaroxaban (Xarelto) tablet 20 mg 20 mg, Oral, DAILY WITH DINNER, First dose on Wed07/09/25 at 1800, Until Discontinued, For tube administration, please refer to the MAR References links: Administration Dose of 15 mg or greater should be taken with food 1733 ($ Given - Provider: Farnaz Gayle RN) 1711 ($ Given - Provider: Delilah Grace, ROBYN) spironolactone (Aldactone) tablet 12.5 mg 12.5 mg, Oral, DAILY, First dose on 07/09/25 at 0930, Until Discontinued 09 ($ Given - Provider: Farnaz Gayle, ROBYN) 0920 ($ Given - Provider: Delilah Grace, ROBYN) 0959 ($ Given - Provider: Les Garcia RN) PRN Medication Order 07/18/2025 07/19/2025 07/20/2025 0.9% NaCl injection 1-10 mL(Linked Group 1) 1-10 mL, Intracatheter, PRN, other, peripheral line flush, Starting on Wed07/01/25 at 1859, Until Wed07/20/25 at 1603, Flush peripheral IV catheter with 1-10 mL of normal saline before and after medications and prn to clear blood from the line or to verify patency. oxyCODONE (immediate release) (Roxicodone) tablet 5 mg(Linked Group 2) 5 mg, Oral, EVERY 6 HOURS PRN, moderate pain, Starting on Wed07/08/25 at 1529, Until Wed07/20/25 at 1603, Patient preference for lesser PRN pain meds may be honored when the patient requests a less strong medication, a lower dose, or a less intrusive route of administration when the lesser drug, dose and route have been ordered for the patient. This patient request must be documented in the MAR. If both oral and IV options are ordered for the same pain severity, give oral first unless patient cannot tolerate oral intake. 2039 ($ Given - Provider: Dennis Vale RN) Linked Groups Order Group 1: SALINE LOCK, INSERT AND MAINTAIN (CANCELED) Routine, CONTINUOUS, Starting on Wed07/01/25 at 1900, Until Specified, New collection, Task Completed: Yes And 0.9% NaCl injection 3 mLJump to med 3 mL, Intracatheter, EVERY 8 HOURS, First dose on Wed07/01/25 at 2200, Until Discontinued, Flush peripheral IV catheter with 3 mL of normal saline every 8 hours. And 0.9% NaCl injection 1-10 mLJump to med 1-10 mL, Intracatheter, PRN, other, peripheral line flush, Starting on Wed07/01/25 at 1859, Until Wed07/20/25 at 1603, Flush peripheral IV catheter with 1-10 mL of normal saline before and after medications and prn to clear blood from the line or to verify patency. Group 2: oxyCODONE (immediate release) (Roxicodone) tablet 5 mgJump to med 5 mg, Oral, EVERY 6 HOURS PRN, moderate pain, Starting on 07/08/25 at 1529, Until Wed07/20/25 at 1603, Patient preference for lesser PRN pain meds may be honored when the patient requests a less strong medication, a lower dose, or a less intrusive route of administration when the lesser drug, dose and route have been ordered for the patient. This patient request must be documented in the MAR. If both oral and IV options are ordered for the same pain severity, give oral first unless patient cannot tolerate oral intake. Or oxyCODONE (immediate release) (Roxicodone) tablet 10 mg (CANCELED) 10 mg, Oral, EVERY 6 HOURS PRN, severe pain, Starting on Wed07/08/25 at 1529, Until Wed07/18/25 at 0707, Patient preference for lesser PRN pain meds may be honored when the patient requests a less strong medication, a lower dose, or a less intrusive route of administration when the lesser drug, dose and route have been ordered for the patient. This patient request must be documented in the MAR. If both oral and IV options are ordered for the same pain severity, give oral first unless patient cannot tolerate oral intake. documented in this encounter Care Teams [employer] Runner Relationship Specialty Start Date End Date Sarkis Fu MD [address] [facility] [address] [facility] [address] [place] [address] PCP - General 07/02/14 documented as of this encounter
[2025-07-20] VITALS (10 sets, daily range): BP systolic 110–142; BP diastolic 57–77; PULSE 85–92; RESP 16–20; TEMP 36.4–36.6; O2SAT 94–96; BMI 57.6
--- NOTE | 2025-07-20 19:35 | ED_ITS ---
HPI - General Adult General Chief complaint: Unspecified Stated complaint: wound vac problems Time Seen by Provider: 07/20/25 19:22 History of Present Illness HPI narrative: 64-year-old male with a past medical history including COPD on chronic 2 L nasal cannula, CHF, hypertension, hyperlipidemia, multiple repairs of abdominal ventral hernia. Patient presents as he was just discharged from [facility] this afternoon and arrived his skilled care facility with a wound VAC for his abdominal ventral open wound. Wound Care was not appropriately set up at the nursing facility and without have supplies to treat his ongoing wound. Patient complete his entire course of antibiotics as asymptomatic and denies any complaints at this time and just needs wound care. They removed the wound VAC at the facility and but with a dry dressing on top of his wound and covered it. Patient transferred to the nearest ER for wound care. Related Data Home Medications ?Medication ?Instructions ?Recorded ?Confirmed ?Last Taken ?Type magnesium oxide 400 mg PO DAILY 10/04/2001/21 Unknown History fvdygqvpwuol-vujfprje-zcgogn 1 tablet PO DAILY 2 04/03/25 Unknown History tablet (Multivitamin 50 Plus tablet) Allergies Allergy/AdvReac Type Severity Reaction Status Date / Time bacitracin Allergy Unknown Unknown Verified 07/20/25 22:47 neomycin Allergy Unknown Unknown Verified 07/20/25 22:47 polymyxin B Allergy Unknown Unknown Verified 07/20/25 22:47 Review of Systems 2 Review of Systems: As reviewed above [facility]PI [facility] Past Medical History Medical History Chronic anticoagulation Heart failure with preserved ejection fraction Chronic kidney disease, stage 3 Hypothyroidism History of venous thromboembolism Incisional hernia Dyslipidemia Hx of pulmonary embolus x3, taking Xarelto Hypertension Heart disease Follows with Dr Perez - [facility] Anxiety Arthritis History of deep venous thrombosis 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 Surgical History Surgical History Hx of hernia repair 2007, 2009 History of sinus surgery History of ventral hernia repair x3. Family History Family History Father Leukemia Sibling Breast cancer Parkinson disease Father Cancer Mother Thyroid disorder Sibling Cancer Social History Social History Social History: Surrogate decision maker: Dennis Baldwin, son. Code status: Full code. Smoking status: Never smoker Second hand tobacco smoke exposure: No Alcohol intake: never Substance use: never Substance use type: does not use Do You Feel Safe in your Home?: Yes Lack of Transportation: No Lack of Food: Never True Current Housing: I Have Housing Concerned About Future Housing: No Difficulty Paying Gas/Electric Bills: No Difficulty Paying for Meds: No Currently Unemployed: No Education: High School Diploma/GED Difficulty w/ Childcare or Family Care: No Additional living arrangements comments: Lives in his own home in [place]. Occupation/Education: other Additional occupation/education comments: disabled Gender identity (if verbalized by the patient): Male Spiritual care concerns: No Exam 2 Narrative: GENERAL: Morbidly obese but overall well-appearing not any acute distress. On his basic normal 2 L oxygen. HEAD: [Normocephalic, atraumatic.] EYES: [PERRLA and EOMI.] ENT: Nares clear, no rhinorrhea or epistaxis. Mucous membranes moist. NECK: Supple. CHEST: [Clear to auscultation. No respiratory distress.] HEART: [Regular rate and rhythm]. No murmur heard. [Normal peripheral pulses.] ABDOMEN: Soft nondistended and nontender. No rigidity or guarding. Large left-sided ventral wound from prior surgeries appears well healing but still open with no evidence of active infection. No purulence. Appropriate granulation tissue evident over the wound edges without any redness or beefy red margins. No bleeding or bruising. No weeping of fluid. EXTREMITIES: Normal range of motion. [No edema.] SKIN: Warm, dry, no rash. NEURO: [No focal deficits]. Alert and oriented [x3.] PSYCH: [Normal mood and affect.] Course Vital Signs Vital signs: Vital Signs Temperature 36.6 C 07/20/25 19:08 Pulse Rate 85 07/20/25 19:08 Respiratory Rate 20 07/20/25 19:08 Blood Pressure 142/61 H 07/20/25 19:08 Pulse Oximetry 95 07/20/25 19:08 Oxygen Delivery Room Air 07/20/25 19:08 Temperature 36.4 C L 07/20/25 23:11 Pulse Rate 85 07/21/25 00:44 Respiratory Rate 31 H 07/21/25 00:44 Blood Pressure 122/70 07/20/25 23:11 Pulse Oximetry 92 07/21/25 00:44 Oxygen Delivery Autopap 07/21/25 00:44 Oxygen Flow Rate 2 07/21/25 00:32 Medical Decision Making MDM Narrative Medical decision making narrative: 64-year-old male with a past medical history including COPD on chronic 2 L nasal cannula, CHF, hypertension, hyperlipidemia, multiple repairs of abdominal ventral hernia. Patient presents as he was just discharged from [facility] this afternoon and arrived his skilled care facility with a wound VAC for his abdominal ventral open wound. Wound Care was not appropriately set up at the nursing facility and without have supplies to treat his ongoing wound. Patient complete his entire course of antibiotics as asymptomatic and denies any complaints at this time and just needs wound care. They removed the wound VAC at the facility and but with a dry dressing on top of his wound and covered it. Patient transferred to the nearest ER for wound care. Soft, nondistended, and nontender. No rigidity or guarding. Large left-sided ventral wound from prior surgeries appears well healing but still open with no evidence of active infection. No purulence. Appropriate granulation tissue evident over the wound edges without any redness or beefy red margins. No bleeding or bruising. No weeping of fluid. Patient is hemodynamically stable and afebrile. Wound does not appear infected and patient was just discharged today to [facility] facility without appropriate wound care availability. Patient has no complaints at this time. Will reach out to [facility]. Spoke to Dr. Baltazar the general surgeon that was involved in patient's care at [facility]. Recommendations are to continue wet-to-dry dressings twice a day with an abdominal pad changed once a day and he will see the patient in clinic this Wednesday. Patient is safe for discharge back to his skilled care facility as he has no medical complaints or concerns at this time. Prior to arranging transport patient's family arrived and argued against him going back to this facility as they do not want him at this nursing facility and stated that he needs placement into a different shelter that has appropriate for wound care. I told them that he has no medical necessity for admission at this hospital and is already not needing transfer to [facility]. I agreed to talk to the hospitalist to see if he can be admitted for social work to see him but we do not have social Work over the weekend. Awaiting discussion with hospitalist. Hospitalist accepted the patient. Relayed this to the family members. Admit orders placed. Consult to social work and care coordination. Medical Records Medical records reviewed: Yes I reviewed the external patient's medical records. Vital Signs Vital Signs: Vital Signs Temperature 36.6 C 07/20/25 19:08 Pulse Rate 85 07/20/25 19:08 Respiratory Rate 20 07/20/25 19:08 Blood Pressure 142/61 H 07/20/25 19:08 Pulse Oximetry 95 07/20/25 19:08 Oxygen Delivery Room Air 07/20/25 19:08 Temperature 36.4 C L 07/20/25 23:11 Pulse Rate 85 07/21/25 00:44 Respiratory Rate 31 H 07/21/25 00:44 Blood Pressure 122/70 07/20/25 23:11 Pulse Oximetry 92 07/21/25 00:44 Oxygen Delivery Autopap 07/21/25 00:44 Oxygen Flow Rate 2 07/21/25 00:32 Lab Data Lab results reviewed: Yes I reviewed the patient's lab results. 07/20/25 20:45 07/20/25 20:45 Labs: Lab Results 07/20/25 Range/Units 20:45 WBC 5.8 (4.5-10.0) K/mm3 RBC 2.83 L (4.6-6.20) M/mm3 Hgb 8.9 L D (14.0-18.0) g/dL Hct 28.1 L (42.0-52.0) % MCV 99.3 (80-100) fl MCH 31.4 (26-34) pg MCHC 31.7 L (32-36) g/dl RDW 15.6 H (11.5-14.5) % Plt Count 326 (150-375) k/mm3 MPV 10.9 H (7.4-10.4) fl Immature Gran % (Auto) 0.3 (0-0.5) % Neut % (Auto) 59.6 (45.5-73.1) % Lymph % (Auto) 21.8 (18.3-44.2) % Owsley % (Auto) 13.6 H (2.6-8.5) % Eos % (Auto) 4.0 (0-4.4) % Baso % (Auto) 0.7 (0.2-1.2) % Lymph # (Auto) 1.26 (0.9-3.2) K/mm3 Owsley # (Auto) 0.8 H (0.1-0.6) K/mm3 Eos # (Auto) 0.2 (0-0.3) K/mm3 Baso # (Auto) 0.0 (0.0-0.1) K/mm3 Abs Immat Gran (auto) 0.02 (0.00-0.031) K/mm3 Absolute Neuts (auto) 3.5 (1.3-6.7) K/mm3 Absolute Nucleated RBC 0.000 (0.0-0.012) K/mm3 Nucleated RBC % 0.0 (0.0-0.2) % Sodium 132 L (137-145) mmol/L Potassium 3.9 (3.4-5.0) mmol/L Chloride 96 L (98-107) mmol/L Carbon Dioxide 33 H (22-30) mmol/L Anion Gap 3 L (4-12) mmol/L BUN 25 H D (9-20) mg/dL Creatinine 0.93 (0.7-1.3) mg/dL Estim Creat Clear Calc Not Reportable Estimated GFR > 60 (59 - ) Glucose 115 H (65-110) mg/dL Calcium 8.7 (8.4-10.2) mg/dL Discharge Plan Discharge Clinical Impression: Encounter for postoperative wound care Patient Disposition: Still a Patient Condition: Stable Time of Disposition: 19:55
--- OUTSIDE RECORDS SUMMARY | 2025-07-20 19:41 | XMS_ITS | Clinical Summary ---
Author Organization [facility] Address [address] [place] [address] Care Team Providers Care Automobile Assembly Supervisor Name Role Phone Sarkis Fu MD Primary Care Provider [phone] Source Comments [facility],non-owned Affiliates and Associated Physician Practices is amultiple site organization consisting of ambulatory clinics and hospital sitesin [place], [place], [place] and [place]. This disclosure is being madepursuant to the Care Everywhere program and may not contain all information available regarding this patient. Last updated 18.[facility] Allergies Active Allergy Reactions Criticality Noted Date Comments Ianongea-Ystymmnkal-Tlryhwibs Itching,Swelling Low 08/13/2014 Medications * Be aware that medications may not be up to date on this document. Alwaysverify current medications with the patient. oxyCODONE, immediate release, (Roxicodone) 5 MG tabletIndicati ons:Acute hypoxic respiratory failure (HCC) Take 1 (one) tablet by mouth every 6 hours as needed 12 tablet 025 Active albuterol-ipra tropium (Duo-Neb) 0.5-2.5 (3) MG/3ML nebulizer solution Inhale 3 mL by mouth every 6 hours 360 mL Active rivaroxaban (Xarelto) 20 MG tablet Take 1 (one) tablet by mouth daily with dinner 30 tablet 025 Active atorvastatin (Lipitor) 80 MG tablet Take 1 (one) tablet by mouth at bedtime 30 tablet Active acetylcysteine (Mucomyst) 20 % solution Inhale 3 mL by mouth every 4 hours while awake 1500 mL 11/21/2 025 Active furosemide (Lasix) 40 MG tablet Take 1 (one) tablet by mouth 2 times daily 60 tablet Active spironolactone (Aldactone) 25 MG tablet Take 0.5 (one-half) tablet by mouth once daily 15 tablet Active polyethylene glycol 3350 (Miralax) 17 g packet Take 17 (seventeen) g by mouth once daily 30 packet Active levothyroxine (Synthroid) 25 MCG tablet Take 1 (one) tablet by mouth once daily 30 tablet Active pantoprazole EC (Protonix) 40 MG tablet Take 1 (one) tablet by mouth once daily 30 tablet Active acetaminophen (Tylenol) 325 MG tablet Take 2 (two) tablets by mouth every 6 hours Maximum allowable Acetaminophen amount = 4 Grams (4000 mg) / 24 hours. 2024 Discontinued(T x Complete) albuterol-ipra tropium (Duo-Neb) 0.5-2.5 (3) MG/3ML nebulizer solution Inhale 3 mL by mouth every 4 hours while awake 2024 Discontinued(D ose Adjustment) rivaroxaban (Xarelto) 20 MG tablet Take 1 (one) tablet by mouth daily with dinner 2024 Discontinued insulin aspart (NovoLOG) pen Inject 0 (zero) Units to 6 (six) Units subcutaneously every 4 hours 2024 Discontinued(T x Complete) micafungin 100 MG 200 mg in NaCl IV 0.9 % 100 mL 200 (two hundred) mg by Intravenous route every 24 hours 2024 Discontinued(T x Complete) atorvastatin (Lipitor) 80 MG tablet Take 1 (one) tablet by mouth at bedtime 2024 Discontinued acetylcysteine (Mucomyst) 20 % solution Inhale 3 mL by mouth every 4 hours while awake 2024 Discontinued furosemide (Lasix) 40 MG tablet Take 1 (one) tablet by mouth 2 times daily 2024 Discontinued spironolactone (Aldactone) 25 MG tablet Take 0.5 (one-half) tablet by mouth once daily 2024 Discontinued polyethylene glycol 3350 (Miralax) 17 g packet Take 17 (seventeen) g by mouth once daily 2024 Discontinued chlorhexidine (Peridex) 0.12 % solution 15 mL by Mouth/Throat route 2 times daily 2024 Discontinued(T x Complete) dextrose 50 % IV 25 mL by Intravenous route as needed (Bedside Glucose less than 70 mg/dL -If NOT able to eat and/or NPO and with IV Access) 2024 Discontinued(T x Complete) artificial tears ophthalmic ointment Instill into both eyes every 8 hours 2024 Discontinued(T x Complete) ampicillin-sul bactam 3 g in NaCl IV 0.9 % 100 mL 3 (three) g by Intravenous route every 6 hours 2024 Discontinued(T x Complete) levothyroxine (Synthroid) 25 MCG tablet Take 1 (one) tablet by mouth once daily 2024 Discontinued pantoprazole EC (Protonix) 40 MG tablet Take 1 (one) tablet by mouth once daily 2024 Discontinued albuterol-ipra tropium (Duo-Neb) 0.5-2.5 (3) MG/3ML nebulizer solution Inhale 3 mL by mouth every 6 hours 2024 Discontinued Active Problems Problem Noted Date Diagnosed Date Incarcerated ventral hernia 07/06/2025 Necrotizing soft tissue infection 07/06/2025 Peritonitis 07/06/2025 Acute hypoxic respiratory failure 07/06/2025 Septic shock 07/06/2025 LARISA (acute kidney injury) 07/06/2025 Chronic atrial fibrillation 07/06/2025 Chronic anticoagulation 07/06/2025 Generalized abdominal pain 07/01/2025 Other pulmonary embolism without acute cor pulmo nale 08/13/2014 Overview (11/29/2017): CTA PULMONARY RUL PULMONARY EMBOLISM Abnormal result of cardiovascular function study 08/13/2014 Overview (11/29/2017): EF is 30% per Echocardiogram on 04/2014 Diastolic congestive heart failure 08/13/2014 Overview (11/29/2017): per ECHO CARDIOGRAM. EF IS 30% Morbid (severe) obesity due to excess calories 1 10/14/2013 Overview (11/29/2017): BMI is 48.8 Obstructive sleep apnea 08/13/2014 Hypothyroidism 08/13/2014 Cardiomegaly 08/13/2014 Overview (11/29/2017): CTA PULMONARY Encounters Date Type Department Care Team Description 07/03/2025 7:45 AM [facility] Anesthesia Event [facility] [address] [place] [address] Seb Sanchez MD Oh, Sarah, MD 07/03/2025 7:05 AM [facility] - 07/03/2025 9:59 AM [facility] Surgery [facility] [address] [place] [address] Erinn Murillo MD LAPAROTOMY EXPLORATORY, SMALL BOWEL RESECTION, ANASTAMOSIS, WOUND VAC 07/01/2025 8:33 PM [facility] Anesthesia Event [facility] [address] [place] [address] Estrada Mcdermott DO 07/01/2025 8:00 PM [facility] - 07/01/2025 11:04 PM [facility] Surgery [facility] [address] [place] [address] Gregg Swenson DO LAPAROTOMY EXPLORATORY, soft tissue excisional debridement, lysis of adhesions, small bowel resection, abthera placement 07/01/2025 5:24 PM [facility] - 07/20/2025 2:58 PM [facility] Hospital Encounter [facility] [address] [place] [address] Carlos Parkinson MD McHale, Matthew J, DO Culhane, John T, MD Tenquist, Jane E, MD Naughton, Daniel J, MD Sensing, Thomas, DO Trauma Discharge Disposition: Shelter Facility 07/01/2025 Travel from Last 3 Months Family History Medical History Relation Name Comments None Known Brother 1 Status: Alive None Known Brother 2 Status: Alive None Known Daughter 1 Status: Alive None Known Daughter 2 Status: Alive Cancer Father throat cancer, blood cancer; Status: None Known Mother Status: d None Known Sister 1 Status: Alive None Known Sister 2 Status: Alive None Known Son Status: Alive Relation Name Status Comments Brother 1 Brother 2 Daughter 1 Daughter 2 Father Mother Sister 1 Sister 2 Son Social History Tobacco Use Types Packs/Day Years [...] medical care, and heating? Patient declined 07/13/2025 [facility] - Occupational Stress [...] any time in the past 12 m [facility], were you homeless or living in a care home (including now)? Patient declined 07/13/2025 Sex and Gender Information Value Date Recorded Sex Assigned at Not on file Legal Sex Male 5:15 PM [facility] Gender Identity Not on file Sexual Orientation Not on file Last Filed Vital Signs Vital Sign Reading Time Taken Comments Blood Pressure 151/76 07/20/2025 2:42 PM [facility] Pulse 82 07/20/2025 12:31 PM [facility] Temperature 36.8 C (98.2 F) 07/20/2025 2:42 PM [facility] Respiratory Rate 18 07/20/2025 12:3 1 PM [facility] Oxygen Saturation 97% 07/20/2025 12: 31 PM [facility] Inhaled Oxygen Concentration 40% 07/20/2025 5 :06 AM [facility] Weight 189.1 kg (416 lb 14.2 oz) 07/03/2025 3:40 AM [facility] Height 182.9 cm (6' 0.01) 07/02/2025 6:44 AM CS T Body Mass Index 56.53 07/02/2025 6:44 AM [facility] Plan of Treatment Health Maintenance Due Date Last Done Comments COLOGUARD (AGES 45-75) - COLON CA SCREENING 1958 COLON MONITORING 1958 COLONOSCOPY - COLON CA SCREENING 1958 CT COLONOGRAPHY - COLON CA SCREENING 1958 Colorectal Cancer Screening 1958 FIT - COLON CA SCREENING 1958 FLEX SIG - COLON CA SCREENING 1958 HEPATITIS C SCREENING 10/08/1976 DTAP/TDAP/TD VACCINES (1 - Tdap) 1977 PNEUMOCOCCAL VACCINE 50+ (1 of 2 - PCV) 1977 Respiratory Syncytial Virus (RSV) Vaccine Pt: or over 60 yrs (1 - Risk 50-74 years 1-dose series) 2008 ZOSTER VACCINE (1 of 2) 2008 DEPRESSION SCREENING 08/30/2024 MEDICARE AWV CALENDAR YEAR 2024 COVID-19 VACCINE ( season) 2025 04/07/2023, 05/25/2022, 12/12/2021, Additional history exists INFLUENZA VACCINE (#1) 2025 , 05/25/2022, 05/26/2021, Additional history exists HEPATITIS B VACCINE Aged Out No longe r eligible based on patient's age to complete this topic HIB VACCINE Aged Out No longer eligi ble based on patient's age to complete this topic HPV VACCINE Aged Out No longer eligi ble based on patient's age to complete this topic MENINGOCOCCAL (Group B) VACCINE SHARED DECISION-MAKING Aged Out No longer eligible based on patient's age to complete this topic MENINGOCOCCAL GROUPS A/C/Y/W VACCINE Aged Out No longer eligible based on patient's age to complete this topic Procedures Procedure Name Priority Date/Time Associated Diagnosis Comments GLUCOSE - POINT OF CARE Routine 07/18/2025 3:27 AM [facility] GLUCOSE - POINT OF CARE Routine 07/17/2025 11:11 PM [facility] GLUCOSE - POINT OF CARE Routine 07/17/2025 7:44 PM [facility] GLUCOSE - POINT OF CARE Routine 07/17/2025 4:59 PM [facility] GLUCOSE - POINT OF CARE Routine 07/17/2025 12:24 PM [facility] GLUCOSE - POINT OF CARE Routine 07/17/2025 7:49 AM [facility] GLUCOSE - POINT OF CARE Routine 07/17/2025 4:20 AM [facility] GLUCOSE - POINT OF CARE Routine 07/17/2025 12:25 AM [facility] GLUCOSE - POINT OF CARE Routine 07/16/2025 9:19 PM [facility] GLUCOSE - POINT OF CARE Routine 07/16/2025 3:56 PM [facility] GLUCOSE - POINT OF CARE Routine 07/16/2025 11:24 AM [facility] GLUCOSE - POINT OF CARE Routine 07/16/2025 8:59 AM [facility] PHOSPHORUS BLOOD Routine 07/16/2025 5:45 AM [facility] MAGNESIUM BLOOD Routine 07/16/2025 5:45 AM [facility] BASIC METABOLIC PANEL (CALCIUM TOTAL) Routine 07/16/2025 5:45 AM [facility] CBC W AUTO DIFFERENTIAL STAT 07/16/2025 5:45 AM [facility] GLUCOSE - POINT OF CARE Routine 07/16/2025 5:09 AM [facility] GLUCOSE - POINT OF CARE Routine 07/16/2025 12:05 AM [facility] GLUCOSE - POINT OF CARE Routine 07/15/2025 8:41 PM [facility] GLUCOSE - POINT OF CARE Routine 07/15/2025 5:44 PM [facility] GLUCOSE - POINT OF CARE Routine 07/15/2025 12:04 PM [facility] GLUCOSE - POINT OF CARE Routine 07/15/2025 7:55 AM [facility] GLUCOSE - POINT OF CARE Routine 07/15/2025 5:25 AM [facility] GLUCOSE - POINT OF CARE Routine 07/15/2025 1:13 AM [facility] GLUCOSE - POINT OF CARE Routine 07/14/2025 10:00 PM [facility] GLUCOSE - POINT OF CARE Routine 07/14/2025 5:08 PM [facility] GLUCOSE - POINT OF CARE Routine 07/14/2025 12:18 PM [facility] GLUCOSE - POINT OF CARE Routine 07/14/2025 8:07 AM [facility] PTT Routine 07/14/2025 6:02 AM [facility] Chronic atrial fibrillation (HCC) PT-INR Routine 07/14/2025 6:02 AM [facility] Chronic atrial fibrillation (HCC) CBC W/O DIFFERENTIAL STAT 07/14/2025 6:02 AM [facility] Generalized abdominal pain GLUCOSE - POINT OF CARE Routine 07/14/2025 5:24 AM [facility] GLUCOSE - POINT OF CARE Routine 07/14/2025 12:10 AM [facility] GLUCOSE - POINT OF CARE Routine 07/13/2025 8:21 PM [facility] GLUCOSE - POINT OF CARE Routine 07/13/2025 6:29 PM [facility] GLUCOSE - POINT OF CARE Routine 07/13/2025 12:41 PM [facility] GLUCOSE - POINT OF CARE Routine 07/13/2025 8:47 AM [facility] GLUCOSE - POINT OF CARE Routine 07/13/2025 6:23 AM [facility] PTT Routine 07/13/2025 5:50 AM [facility] Chronic atrial fibrillation (HCC) PT-INR Routine 07/13/2025 5:50 AM [facility] Chronic atrial fibrillation (HCC) PHOSPHORUS BLOOD STAT 07/13/2025 4:01 AM [facility] Ventral hernia with gangrene MAGNESIUM BLOOD STAT 07/13/2025 4:01 AM [facility] Generalized abdominal pain CBC W/O DIFFERENTIAL STAT 07/13/2025 4:01 AM [facility] Generalized abdominal pain BASIC METABOLIC PANEL (CALCIUM TOTAL) STAT 07/13/2025 4:01 AM [facility] Generalized abdominal pain GLUCOSE - POINT OF CARE Routine 07/13/2025 12:09 AM [facility] GLUCOSE - POINT OF CARE Routine 07/12/2025 8:26 PM [facility] GLUCOSE - POINT OF CARE Routine 07/12/2025 5:05 PM [facility] GLUCOSE - POINT OF CARE Routine 07/12/2025 11:03 AM [facility] GLUCOSE - POINT OF CARE Routine 07/12/2025 8:03 AM [facility] HEPATIC FUNCTION PANEL AM Draw 07/12/2025 6:14 AM [facility] PTT Routine 07/12/2025 6:14 AM [facility] Chronic atrial fibrillation (HCC) PT-INR Routine 07/12/2025 6:14 AM [facility] Chronic atrial fibrillation (HCC) PHOSPHORUS BLOOD STAT 07/12/2025 6:14 AM [facility] Ventral hernia with gangrene MAGNESIUM BLOOD STAT 07/12/2025 6:14 AM [facility] Generalized abdominal pain CBC W/O DIFFERENTIAL STAT 07/12/2025 6:14 AM [facility] Generalized abdominal pain BASIC METABOLIC PANEL (CALCIUM TOTAL) STAT 07/12/2025 6:14 AM [facility] Generalized abdominal pain GLUCOSE - POINT OF CARE Routine 07/12/2025 5:07 AM [facility] GLUCOSE - POINT OF CARE Routine 07/12/2025 12:42 AM [facility] GLUCOSE - POINT OF CARE Routine 07/11/2025 9:36 PM [facility] GLUCOSE - POINT OF CARE Routine 07/11/2025 4:30 PM [facility] GLUCOSE - POINT OF CARE Routine 07/11/2025 11:25 AM [facility] GLUCOSE - POINT OF CARE Routine 07/11/2025 7:54 AM [facility] PTT Routine 07/11/2025 5:19 AM [facility] Chronic atrial fibrillation (HCC) PT-INR Routine 07/11/2025 5:19 AM [facility] Chronic atrial fibrillation (HCC) PHOSPHORUS BLOOD STAT 07/11/2025 5:19 AM [facility] Ventral hernia with gangrene MAGNESIUM BLOOD STAT 07/11/2025 5:19 AM [facility] Generalized abdominal pain CBC W/O DIFFERENTIAL STAT 07/11/2025 5:19 AM [facility] Generalized abdominal pain BASIC METABOLIC PANEL (CALCIUM TOTAL) STAT 07/11/2025 5:19 AM [facility] Generalized abdominal pain GLUCOSE - POINT OF CARE Routine 07/11/2025 4:28 AM [facility] GLUCOSE - POINT OF CARE Routine 07/10/2025 11:44 PM [facility] GLUCOSE - POINT OF CARE Routine 07/10/2025 7:51 PM [facility] GLUCOSE - POINT OF CARE Routine 07/10/2025 4:06 PM [facility] GLUCOSE - POINT OF CARE Routine 07/10/2025 11:18 AM [facility] GLUCOSE - POINT OF CARE Routine 07/10/2025 7:31 AM [facility] TRIGLYCERIDES BLOOD Routine 07/10/2025 4 :56 AM [facility] PTT Routine 07/10/2025 4:56 AM [facility] Chronic atrial fibrillation (HCC) PT-INR Routine 07/10/2025 4:56 AM [facility] Chronic atrial fibrillation (HCC) PHOSPHORUS BLOOD STAT 07/10/2025 4:56 AM [facility] Ventral hernia with gangrene MAGNESIUM BLOOD STAT 07/10/2025 4:56 AM [facility] Generalized abdominal pain CBC W/O DIFFERENTIAL STAT 07/10/2025 4:56 AM [facility] Generalized abdominal pain BASIC METABOLIC PANEL (CALCIUM TOTAL) STAT 07/10/2025 4:56 AM [facility] Generalized abdominal pain GLUCOSE - POINT OF CARE Routine 07/10/2025 3:32 AM [facility] GLUCOSE - POINT OF CARE Routine 07/10/2025 12:31 AM [facility] GLUCOSE - POINT OF CARE Routine 07/09/2025 7:46 PM [facility] GLUCOSE - POINT OF CARE Routine 07/09/2025 3:47 PM [facility] GLUCOSE - POINT OF CARE Routine 07/09/2025 12:56 PM [facility] GLUCOSE - POINT OF CARE Routine 07/09/2025 11:52 AM [facility] PTT Timed 07/09/2025 10:37 AM [facility] GLUCOSE - POINT OF CARE Routine 07/09/2025 8:37 AM [facility] BASIC METABOLIC PANEL (CALCIUM TOTAL) STAT 07/09/2025 6:12 AM [facility] Generalized abdominal pain GLUCOSE - POINT OF CARE Routine 07/09/2025 3:42 AM [facility] PT-INR Routine 07/09/2025 3:30 AM [facility] Chronic atrial fibrillation (HCC) PHOSPHORUS BLOOD STAT 07/09/2025 3:30 AM [facility] Ventral hernia with gangrene MAGNESIUM BLOOD STAT 07/09/2025 3:30 AM [facility] Generalized abdominal pain CBC W/O DIFFERENTIAL STAT 07/09/2025 3:30 AM [facility] Generalized abdominal pain PTT Timed 07/09/2025 3:30 AM [facility] GLUCOSE - POINT OF CARE Routine 07/09/2025 12:00 AM [facility] PTT Timed 07/08/2025 7:44 PM [facility] GLUCOSE - POINT OF CARE Routine 07/08/2025 7:43 PM [facility] GLUCOSE - POINT OF CARE Routine 07/08/2025 4:43 PM [facility] GLUCOSE - POINT OF CARE Routine 07/08/2025 12:26 PM [facility] PTT Timed 07/08/2025 11:39 AM [facility] Ventral hernia with gangrene Necrotizing soft tissue infection GLUCOSE - POINT OF CARE Routine 07/08/2025 7:52 AM [facility] GLUCOSE - POINT OF CARE Routine 07/08/2025 3:30 AM [facility] PTT Routine 07/08/2025 3:07 AM [facility] Chronic atrial fibrillation (HCC) PT-INR Routine 07/08/2025 3:07 AM [facility] Chronic atrial fibrillation (HCC) PHOSPHORUS BLOOD STAT 07/08/2025 3:07 AM [facility] Ventral hernia with gangrene MAGNESIUM BLOOD STAT 07/08/2025 3:07 AM [facility] Generalized abdominal pain CBC W/O DIFFERENTIAL STAT 07/08/2025 3:07 AM [facility] Generalized abdominal pain BASIC METABOLIC PANEL (CALCIUM TOTAL) STAT 07/08/2025 3:07 AM [facility] Generalized abdominal pain VANCOMYCIN LEVEL RANDOM Routine 07/08/2025 3:07 AM [facility] GLUCOSE - POINT OF CARE Routine 07/07/2025 11:54 PM [facility] GLUCOSE - POINT OF CARE Routine 07/07/2025 8:48 PM [facility] GLUCOSE - POINT OF CARE Routine 07/07/2025 4:38 PM [facility] PTT STAT 07/07/2025 9:20 AM [facility] XR CHEST 1VW PORTABLE STAT 07/07/2025 4:37 AM [facility] Acute hypoxic respiratory failure (HCC) PTT Timed 07/07/2025 3:26 AM [facility] PT-INR Routine 07/07/2025 3:26 AM [facility] Chronic atrial fibrillation (HCC) VANCOMYCIN LEVEL RANDOM Timed 07/07/2025 3:26 AM [facility] BLOOD GASES ART + COOX PANEL STAT 07/07/2025 3:26 AM [facility] Ventral hernia with gangrene PHOSPHORUS BLOOD STAT 07/07/2025 3:26 AM [facility] Ventral hernia with gangrene MAGNESIUM BLOOD STAT 07/07/2025 3:26 AM [facility] Generalized abdominal pain CALCIUM IONIZED WHOLE BLOOD STAT 07/07/2025 3:26 AM [facility] Generalized abdominal pain BASIC METABOLIC PANEL (CALCIUM TOTAL) STAT 07/07/2025 3:26 AM [facility] Generalized abdominal pain CBC W/O DIFFERENTIAL STAT 07/07/2025 3:26 AM [facility] Generalized abdominal pain PTT STAT 07/06/2025 8:26 PM [facility] DIFFERENTIAL MANUAL Routine 07/06/2025 12:34 PM [facility] Chronic atrial fibrillation (HCC) CBC W AUTO DIFFERENTIAL Routine 07/06/2025 12:34 PM [facility] Chronic atrial fibrillation (HCC) PTT Routine 07/06/2025 12:34 PM [facility] Chronic atrial fibrillation (HCC) PT-INR Routine 07/06/2025 12:34 PM [facility] Chronic atrial fibrillation (HCC) XR CHEST 1VW PORTABLE Routine 07/06/2025 4:26 AM [facility] Ventral hernia with gangrene BLOOD GASES ART + COOX PANEL STAT 07/06/2025 1:31 AM [facility] Ventral hernia with gangrene PHOSPHORUS BLOOD STAT 07/06/2025 1:31 AM [facility] Ventral hernia with gangrene MAGNESIUM BLOOD STAT 07/06/2025 1:31 AM [facility] Generalized abdominal pain CALCIUM IONIZED WHOLE BLOOD STAT 07/06/2025 1:31 AM [facility] Generalized abdominal pain BASIC METABOLIC PANEL (CALCIUM TOTAL) STAT 07/06/2025 1:31 AM [facility] Generalized abdominal pain CBC W/O DIFFERENTIAL STAT 07/06/2025 1:31 AM [facility] Generalized abdominal pain VANCOMYCIN LEVEL RANDOM Timed 07/05/2025 9:10 PM [facility] GLUCOSE - POINT OF CARE Routine 07/05/2025 9:09 PM [facility] GLUCOSE - POINT OF CARE Routine 07/05/2025 6:19 PM [facility] IR PICC LINE INSERT Routine 07/05/2025 2 :30 PM [facility] Ventral hernia with gangrene XR CHEST 1VW PORTABLE STAT 07/05/2025 2:24 PM [facility] Ventral hernia with gangrene GLUCOSE - POINT OF CARE Routine 07/05/2025 1:54 PM [facility] CULTURE FUNGUS OTHER+FUNGUS SMEAR STAT 07/05/2025 10:47 AM [facility] Ventral hernia with gangrene CULTURE BRONCHIAL WASHING+GRAM STAIN Routine 07/05/2025 10:46 AM [facility] Trauma GLUCOSE - POINT OF CARE Routine 07/05/2025 8:57 AM [facility] GLUCOSE - POINT OF CARE Routine 07/05/2025 4:56 AM [facility] XR CHEST 1VW PORTABLE STAT 07/05/2025 4:21 AM [facility] Ventral hernia with gangrene BLOOD GASES ART + COOX PANEL STAT 07/05/2025 12:38 AM [facility] Ventral hernia with gangrene PHOSPHORUS BLOOD STAT 07/05/2025 12:38 AM [facility] Ventral hernia with gangrene MAGNESIUM BLOOD STAT 07/05/2025 12:38 AM [facility] Generalized abdominal pain CALCIUM IONIZED WHOLE BLOOD STAT 07/05/2025 12:38 AM [facility] Generalized abdominal pain BASIC METABOLIC PANEL (CALCIUM TOTAL) STAT 07/05/2025 12:38 AM [facility] Generalized abdominal pain CBC W/O DIFFERENTIAL STAT 07/05/2025 12:38 AM [facility] Generalized abdominal pain GLUCOSE - POINT OF CARE Routine 07/05/2025 12:30 AM [facility] GLUCOSE - POINT OF CARE Routine 07/05/2025 12:27 AM [facility] GLUCOSE - POINT OF CARE Routine 07/04/2025 8:08 PM [facility] GLUCOSE - POINT OF CARE Routine 07/04/2025 4:43 PM [facility] VANCOMYCIN LEVEL TROUGH Timed 07/04/2025 3:29 PM [facility] XR ABDOMEN KUB PORTABLE STAT 07/04/2025 2:25 PM [facility] Ventral hernia with gangrene GLUCOSE - POINT OF CARE Routine 07/04/2025 1:44 [facility] CT CHEST WO CONTRAST STAT 07/04/2025 9:44 AM [facility] Ventral hernia with gangrene GLUCOSE - POINT OF CARE Routine 07/04/2025 8:15 AM [facility] XR CHEST 1VW PORTABLE Routine 07/04/2025 4:23 AM [facility] Ventral hernia with gangrene GLUCOSE - POINT OF CARE Routine 07/04/2025 4:08 AM [facility] GLUCOSE - POINT OF CARE Routine 07/03/2025 11:32 PM [facility] BLOOD GASES ART + COOX PANEL STAT 07/03/2025 11:32 PM [facility] Ventral hernia with gangrene PHOSPHORUS BLOOD STAT 07/03/2025 11:32 PM [facility] Ventral hernia with gangrene MAGNESIUM BLOOD STAT 07/03/2025 11:32 PM [facility] Generalized abdominal pain CALCIUM IONIZED WHOLE BLOOD STAT 07/03/2025 11:32 PM [facility] Generalized abdominal pain BASIC METABOLIC PANEL (CALCIUM TOTAL) STAT 07/03/2025 11:32 PM [facility] Generalized abdominal pain CBC W/O DIFFERENTIAL STAT 07/03/2025 11:32 PM [facility] Generalized abdominal pain GLUCOSE - POINT OF CARE Routine 07/03/2025 8:00 PM [facility] GLUCOSE - POINT OF CARE Routine 07/03/2025 5:08 PM [facility] BASIC METABOLIC PANEL (CALCIUM TOTAL) STAT 07/03/2025 1:31 PM [facility] Ventral hernia with gangrene CBC W/O DIFFERENTIAL STAT 07/03/2025 1:31 PM [facility] Ventral hernia with gangrene BLOOD GASES ART + COOX PANEL STAT 07/03/2025 1:31 PM [facility] Ventral hernia with gangrene XR ABDOMEN KUB PORTABLE STAT 07/03/2025 10:17 AM [facility] Incarcerated ventral hernia PATHOLOGY TISSUE Routine 07/03/2025 8:49 AM [facility] Incarcerated ventral hernia BLOOD GAS+COOX+LYTES+METAB ARTERIAL POCT Routine 07/03/2025 8:29 AM [facility] UT EXPLORATORY OF ABDOMEN 07/03/2025 7:25 AM [facility] Incarcerated ventral hernia EKG 12-LEAD Routine 07/03/2025 6:29 AM [facility] Ventral hernia with gangrene TRIGLYCERIDES BLOOD Routine 07/03/2025 6 :04 AM [facility] Ventral hernia with gangrene BLOOD GASES ART + COOX PANEL Routine 07/03/2025 6:04 AM [facility] Ventral hernia with gangrene XR CHEST 1VW Routine 07/03/2025 4:23 AM [facility] Ventral hernia with gangrene GLUCOSE - POINT OF CARE Routine 07/03/2025 3:40 AM [facility] BLOOD GASES ART + COOX PANEL Routine 07/03/2025 3:40 AM [facility] VANCOMYCIN LEVEL RANDOM Timed 07/03/2025 3:40 AM [facility] BLOOD GASES ART + COOX PANEL STAT 07/02/2025 11:18 PM [facility] Ventral hernia with gangrene PHOSPHORUS BLOOD STAT 07/02/2025 11:18 PM [facility] Ventral hernia with gangrene MAGNESIUM BLOOD STAT 07/02/2025 11:18 PM [facility] Generalized abdominal pain CALCIUM IONIZED WHOLE BLOOD STAT 07/02/2025 11:18 PM [facility] Generalized abdominal pain BASIC METABOLIC PANEL (CALCIUM TOTAL) STAT 07/02/2025 11:18 PM [facility] Generalized abdominal pain CBC W/O DIFFERENTIAL STAT 07/02/2025 11:18 PM [facility] Generalized abdominal pain GLUCOSE - POINT OF CARE Routine 07/02/2025 11:17 PM [facility] GLUCOSE - POINT OF CARE Routine 07/02/2025 7:59 PM [facility] GLUCOSE - POINT OF CARE Routine 07/02/2025 4:11 PM [facility] XR CHEST 1VW PORTABLE Routine 07/02/2025 1:47 PM [facility] Ventral hernia with gangrene GLUCOSE - POINT OF CARE Routine 07/02/2025 12:29 PM [facility] HEPATIC FUNCTION PANEL STAT 07/02/2025 10:52 AM [facility] Generalized abdominal pain LACTIC ACID BLOOD STAT 07/02/2025 10:52 AM [facility] Generalized abdominal pain BASIC METABOLIC PANEL (CALCIUM TOTAL) STAT 07/02/2025 10:52 AM [facility] Generalized abdominal pain BLOOD GASES ART + COOX PANEL STAT 07/02/2025 10:52 AM [facility] Generalized abdominal pain BLOOD GAS ART+LYTES+METAB+COOX POC NOTIF STAT 07/02/2025 9:24 AM [facility] Generalized abdominal pain GLUCOSE - POINT OF CARE Routine 07/02/2025 8:12 AM [facility] XR CHEST 1VW Routine 07/02/2025 6:14 AM [facility] Generalized abdominal pain LACTIC ACID WHOLE BLOOD STAT 07/02/2025 5:51 AM [facility] Generalized abdominal pain BLOOD GASES ART + COOX PANEL Routine 07/02/2025 5:51 AM [facility] Generalized abdominal pain GLUCOSE - POINT OF CARE Routine 07/02/2025 4:48 AM [facility] VANCOMYCIN LEVEL RANDOM Routine 07/02/2025 1:59 AM [facility] BLOOD TYPE VERIFICATION STAT 07/02/2025 12:49 AM [facility] HEMOGLOBIN A1C FABY 07/02/2025 12:32 AM [facility] Generalized abdominal pain URINALYSIS REFLEX TO MICROSCOPIC NO CULTURE STAT 07/02/2025 12:31 AM [facility] Generalized abdominal pain MRSA PCR STAT 07/02/2025 12:31 AM [facility] Generalized abdominal pain TSH FABY 07/02/2025 12:30 AM [facility] Generalized abdominal pain VANCOMYCIN LEVEL TROUGH Timed 07/02/2025 12:30 AM [facility] Generalized abdominal pain BLOOD GASES ART + COOX PANEL STAT 07/02/2025 12:30 AM [facility] Generalized abdominal pain FIBRINOGEN ACTIVITY STAT 07/02/2025 12:30 AM [facility] Generalized abdominal pain PTT STAT 07/02/2025 12:30 AM [facility] Generalized abdominal pain PT-INR STAT 07/02/2025 12:30 AM [facility] Generalized abdominal pain LACTIC ACID WHOLE BLOOD STAT 07/02/2025 12:30 AM [facility] Generalized abdominal pain TRIGLYCERIDES BLOOD FABY 07/02/2025 12:30 AM [facility] Generalized abdominal pain NT-PRO BNP STAT 07/02/2025 12:30 AM [facility] Generalized abdominal pain MAGNESIUM BLOOD STAT 07/02/2025 12:30 AM [facility] Generalized abdominal pain CALCIUM IONIZED WHOLE BLOOD STAT 07/02/2025 12:30 AM [facility] Generalized abdominal pain PHOSPHORUS BLOOD STAT 07/02/2025 12:30 AM [facility] Generalized abdominal pain BASIC METABOLIC PANEL (CALCIUM TOTAL) STAT 07/02/2025 12:30 AM [facility] Generalized abdominal pain CBC W/O DIFFERENTIAL STAT 07/02/2025 12:30 AM [facility] Generalized abdominal pain XR ABDOMEN KUB Routine 07/02/2025 12:02 AM [facility] Generalized abdominal pain XR CHEST 1VW PORTABLE STAT 07/02/2025 12:02 AM [facility] Generalized abdominal pain SUSCEPTIBILITY FUNGUS/YEAST Routine 07/01/2025 11:50 PM [facility] Generalized abdominal pain CULTURE FUNGUS OTHER+FUNGUS SMEAR Routine 07/01/2025 11:50 PM [facility] Generalized abdominal pain CULTURE ANAEROBE Routine 07/01/2025 11:50 PM [facility] Generalized abdominal pain CULTURE FLUID+GRAM STAIN Routine 07/01/2025 11:50 PM [facility] Generalized abdominal pain PERIPHERAL IV NOTE Routine 07/01/2025 11:12 PM [facility] PERIPHERAL IV NOTE Routine 07/01/2025 11:12 PM [facility] PATHOLOGY TISSUE STAT 07/01/2025 11:11 PM [facility] Trauma BLOOD GAS+COOX+LYTES+METAB ARTERIAL POCT Routine 07/01/2025 10:36 PM [facility] ARTERIAL LINE NOTE Routine 07/01/2025 9: 20 PM [facility] ENDOTRACHEAL TUBE NOTE Routine 07/01/2025 9:19 PM [facility] BLOOD GAS+COOX+LYTES+METAB ARTERIAL POCT Routine 07/01/2025 9:18 PM [facility] BLOOD GAS+COOX+LYTES+METAB ARTERIAL POCT Routine 07/01/2025 9:18 PM [facility] TYPE + SCREEN PANEL STAT 07/01/2025 8 :11 PM [facility] PREPARE RBC LEUKOREDUCED UNIT STAT 07/01/2025 8:11 PM [facility] PREPARE PLATELET PHERESIS UNIT(S) STAT 07/01/2025 8:11 PM [facility] PREPARE FFP UNIT(S) STAT 07/01/2025 8 :11 PM [facility] UT EXPLORATORY OF ABDOMEN 07/01/2025 8:08 PM [facility] Trauma Special Needs 07/01 @ 1928 CW GLUCOSE - POINT OF CARE Routine 07/01/2025 7:58 PM [facility] HEPATIC FUNCTION PANEL STAT 07/01/2025 7:18 PM [facility] Generalized abdominal pain DIFFERENTIAL MANUAL STAT 07/01/2025 7 :18 PM [facility] TEG 6S PLATELET MAPPING STAT 07/01/2025 7:18 PM [facility] TEG 6 GLOBAL HEMOSTASIS W/ LYSIS STAT 07/01/2025 7:18 PM [facility] PROLACTIN STAT 07/01/2025 7:18 PM [facility] PT-INR STAT 07/01/2025 7:18 PM [facility] LACTIC ACID BLOOD REFLEX TO REPEAT STAT 07/01/2025 7:18 PM [facility] COMPREHENSIVE METABOLIC PANEL STAT 07/01/2025 7:18 PM [facility] CBC W AUTO DIFFERENTIAL STAT 07/01/2025 7:18 PM [facility] from Last 3 Months Results * (ABNORMAL) GLUCOSE - POINT OF CARE (07/18/2025 3:27 AM [facility]) Only the most recent of88 resultswithin the time period is included. [facility] Glucose WB/POC 106(H) 70 - 99 mg/dL 07/18/2025 3:28 AM [facility] Specimen Type Arterial/C apillary 07/18/2025 3:28 AM [facility] Blood BLOOD SPECIMEN / Unknown 07/18/2025 3:27 AM [facility] 07/18/2025 3:28 AM [facility] us Colby Sensing DO LAB - POINT OF CARE ORDERABLES Final Result [facility] [address] [place] [phone], [facility] [phone] * (ABNORMAL) CBC W AUTO DIFFERENTIAL (07/16/2025 5:45 AM [facility]) Only the most recent of3 resultswithin the time period is included. [facility] WBC 8.2 4.0 - 10.7 x10E9/L 07/16/2025 8:15 AM [facility] RBC Count 2.74(L) 4.30 - 5.80 x10E12/L 07/16/2025 8:15 AM [facility] Hemoglobin 9.0(L) 13.3 - 17.5 g/dL 07/16/2025 8:15 AM [facility] Hematocrit 28.6(L) 38.7 - 51.1 % 07/16/2025 8:15 AM [facility] MCV 104.4(H) 80.0 - 98.0 fL 07/16/2025 8:15 AM [facility] MCH 32.8 26.7 - 33.6 pg 07/16/2025 8:15 AM [facility] MCHC 31.5(L) 31.7 - 36.3 g/dL 07/16/2025 8:15 AM [facility] RDW-CV 15.9(H) 11.3 - 14.8 % 07/16/2025 8:15 AM [facility] Platelet Count 431(H) 150 - 420 x10E9/L 07/16/2025 8:15 AM [facility] MPV 11.5(H) 7.8 - 11.4 fL 07/16/2025 8:15 AM [facility] Neutrophil % 67.2 41.0 - 74.0 % 07/16/2025 8:15 AM [facility] Lymphocyte % 13.9(L) 17.0 - 47.0 % 07/16/2025 8:15 AM [facility] Monocyte % 12.3(H) 3.0 - 11.0 % 07/16/2025 8:15 AM [facility] Eosinophil % 5.1 0.0 - 7.0 % 07/16/2025 8:15 AM [facility] Basophil % 1.1 0.0 - 1.6 % 07/16/2025 8:15 AM [facility] Immature Granulocytes % 0.4 0.0 - 1.0 % 07/16/2025 8:15 AM [facility] Neutrophil Absolute 5.53 1.60 - 7.50 x10E9/L 07/16/2025 8:15 AM [facility] Lymphocyte Absolute 1.14 1.00 - 4.40 x10E9/L 07/16/2025 8:15 AM [facility] Monocyte Absolute 1.01(H) 0.15 - 1.00 x10E9/L 07/16/2025 8:15 AM [facility] Eosinophil Absolute 0.42 0.00 - 0.60 x10E9/L 07/16/2025 8:15 AM [facility] Basophil Absolute 0.09 0.00 - 0.13 x10E9/L 07/16/2025 8:15 AM [facility] Blood BLOOD SPECIMEN / Unknown Lab Venipuncture / Unknown 07/16/2025 5:45 AM [facility] 07/16/2025 8:06 AM [facility] Colby Sensing DO LAB - HEMATOLOGY ORDERABLES Fi nal Result [facility] [address] [place] [address], [facility] [phone] * (ABNORMAL) BASIC METABOLIC PANEL (CALCIUM TOTAL) (07/16/2025 5:45 AM [facility]) Only the most recent of15 resultswithin the time period is included. BUN 19 7 - 26 mg/dL 07/16/2025 8:22 AM [facility] Creatinine 0.80 0.71 - 1.16 mg/dL 07/16/2025 8:22 AM [facility] Sodium 139 136 - 145 mmol/L 07/16/2025 8:22 AM [facility] Potassium 4.0 3.5 - 4.5 mmol/L 07/16/2025 8:22 AM [facility] Chloride 100 98 - 107 mmol/L 07/16/2025 8:22 AM [facility] CO2 34(H) 22 - 29 mmol/L 07/16/2025 8:22 AM [facility] Glucose 105(H) 70 - 99 mg/dL 07/16/2025 8:22 AM [facility] Calcium 8.7 8.4 - 10.2 mg/dL 07/16/2025 8:22 AM [facility] Anion Gap 5(L) 6 - 16 07/16/2025 8:22 AM [facility] BUN/Creatinine Ratio 24(H) 7 - 23 07/16/2025 8:22 AM [facility] Osmolality Calculated 291 275 - 295 mOsm/kg 07/16/2025 8:22 AM [facility] eGFR by CKD-EPI >90 >=90 mL/min/1.7 3 m2 07/16/2025 8:22 AM [facility] Comment:Estimated Glomerular Filtration Rate (eGFR) calculated using the CKD-EPI Creatinine Equation (2020), per the National Kidney Foundation and [place] [employer]ph[employer] recommendations. Blood BLOOD SPECIMEN / Unknown Lab Venipuncture / Unknown 07/16/2025 5:45 AM [facility] 07/16/2025 8:06 AM [facility] [employer] DO LAB - CHEMISTRY ORDERABLES Fin al Result Performing Organization Address [facility] de Phone Number [address] [address], [facility] [phone] * PHOSPHORUS BLOOD (07/16/2025 5:45 AM [facility]) Only the most recent of13 resultswithin the time period is included. Phosphorus 2.8 2.8 - 5.1 mg/dL 07/16/2025 8:22 AM [facility] Blood BLOOD SPECIMEN / Unknown Lab Venipuncture / Unknown 07/16/2025 5:45 AM [facility] 07/16/2025 8:06 AM [facility] [employer] DO LAB - CHEMISTRY ORDERABLES Fin al Result Performing Organization Address [facility] de Phone Number [address] [address], [facility] [phone] * MAGNESIUM BLOOD (07/16/2025 5:45 AM [facility]) Only the most recent of13 resultswithin the time period is included. Magnesium 1.8 1.6 - 2.6 mg/dL 07/16/2025 8:22 AM [facility] Blood BLOOD SPECIMEN / Unknown Lab Venipuncture / Unknown 07/16/2025 5:45 AM [facility] 07/16/2025 8:06 AM [facility] [employer] DO LAB - CHEMISTRY ORDERABLES Fin al Result Performing Organization Address [facility] de Phone Number [address] [address], [place] [phone] * PTT (07/14/2025 6:02 AM [facility]) Only the most recent of15 resultswithin the time period is included. APTT 29.0 23.0 - 38.4 Seconds 07/14/2025 8:11 AM [facility] Comment:Suggested therapeuti c range for full dose I.V. unfractionated heparin therapy for venous thromboembolism is 71 to 109 seconds. Blood BLOOD SPECIMEN / Unknown Lab Venipuncture / Unknown 07/14/2025 6:02 AM [facility] 07/14/2025 7:42 AM [facility] us Kamaljit Nicole MD LAB - COAGULATION ORDERABLES F inal Result Performing Organization Address [facility] de Phone Number [address] [address], [facility] [phone] * (ABNORMAL) PT-INR (07/14/2025 6:02 AM [facility]) Only the most recent of11 resultswithin the time period is included. PT 33.1(H) 12.1 - 14.8 Seconds 07/14/2025 8:11 AM [facility] INR 3.3 See Comment 07/14/2025 8:11 AM [facility] Comment:The suggested therap eutic range for standard coumadin (warfarin) therapy is an INR of 2.0-3.0. For high-risk patients (Mechanical Mitral Valve Prosthesis, etc.), the suggested prophylactic therapeutic range is an INR of 2.5-3.5. Blood BLOOD SPECIMEN / Unknown Lab Venipuncture / Unknown 07/14/2025 6:02 AM [facility] 07/14/2025 7:42 AM [facility] us Kamaljit Nicole MD LAB - COAGULATION ORDERABLES F inal Result Performing Organization Address [facility] Co de Phone Number [address] [address], [facility] [phone] * (ABNORMAL) CBC W/O DIFFERENTIAL (07/14/2025 6:02 AM [facility]) Only the most recent of14 resultswithin the time period is included. WBC 9.5 4.0 - 10.7 x10E9/L 07/14/2025 8:53 AM [facility] RBC Count 2.77(L) 4.30 - 5.80 x10E12/L 07/14/2025 8:53 AM [facility] Hemoglobin 9.1(L) 13.3 - 17.5 g/dL 07/14/2025 8:53 AM [facility] Hematocrit 28.7(L) 38.7 - 51.1 % 07/14/2025 8:53 AM [facility] MCV 103.6(H) 80.0 - 98.0 fL 07/14/2025 8:53 AM [facility] MCH 32.9 26.7 - 33.6 pg 07/14/2025 8:53 AM [facility] MCHC 31.7 31.7 - 36.3 g/dL 07/14/2025 8:53 AM [facility] RDW-CV 15.9(H) 11.3 - 14.8 % 07/14/2025 8:53 AM [facility] Platelet Count 418 150 - 420 x10E9/L 07/14/2025 8:53 AM [facility] MPV 11.6(H) 7.8 - 11.4 fL 07/14/2025 8:53 AM [facility] Blood BLOOD SPECIMEN / Unknown Lab Venipuncture / Unknown 07/14/2025 6:02 AM [facility] 07/14/2025 7:42 AM [facility] us Kamaljit Nicole MD LAB - HEMATOLOGY ORDERABLES Fi nal Result [facility] [address] [place] [phone], [facility] [phone] * (ABNORMAL) HEPATIC FUNCTION PANEL (07/12/2025 6:14 AM [facility]) Only the most recent of3 resultswithin the time period is included. Protein Total 6.6 6.0 - 8.3 g/dL 025 7:28 AM [facility] Albumin 2.1(L) 3.4 - 5.0 g/dL 07/12/2025 7:28 AM [facility] Bilirubin Total 1.3(H) 0.2 - 1.2 mg/dL 06/30 7:28 AM [facility] Bilirubin Conjugated 0.9(H) 0.1 - 0.5 mg/dL 07/12/2025 7:28 AM [facility] Bilirubin Unconjugated 0.4 Unconjugated Bilirubin is a calculated value: Reference ranges have not been established. mg/dL 07/12/2025 7:28 AM [facility] Alkaline Phosphatase 197(H) 40 - 150 U/L 07/12/2025 7:28 AM [facility] ALT 57(H) 5 - 55 U/L 07/12/2025 7:28 AM [facility] AST 76(H) 5 - 34 U/L 07/12/2025 7:28 AM [facility] Albumin/Globulin Ratio 0.5(L) 1.1 - 2.3 07/12/2025 7:28 AM [facility] Blood BLOOD SPECIMEN / Unknown Lab Venipuncture / Unknown 07/12/2025 6:14 AM [facility] 07/12/2025 6:57 AM [facility] us Erinn Murillo MD LAB - CHEMISTRY ORDERABLES Fi nal Result [address] [address], [place] [phone] * (ABNORMAL) TRIGLYCERIDES BLOOD (07/10/2025 4:56 AM [facility]) Only the most recent of3 resultswithin the time period is included. Triglycerides 159(H) <150 mg/dL 07/10/2025 6:31 AM [facility] Comment: ATP III Classification of Triglycerides: <150 mg/dL: Normal 150 - 199 mg/dL: Borderline High 200 - 400 mg/dL: High >500 mg/dL: Very High Blood BLOOD SPECIMEN / Unknown Lab Venipuncture / Unknown 07/10/2025 4:56 AM [facility] 07/10/2025 5:42 AM [facility] us Kamaljit Nicole MD LAB - CHEMISTRY ORDERABLES Fin al Result [address] [address], [place] [phone] * VANCOMYCIN LEVEL RANDOM (07/08/2025 3:07 AM [facility]) Only the most recent of5 resultswithin the time period is included. Vancomycin Random 11.1 Therapeutic Ranges not established for random specimens ug/mL 07/08/2025 5:31 AM [facility] Blood BLOOD SPECIMEN / Unknown Venipuncture / Unknown 07/08/2025 3:07 AM [facility] 07/08/2025 3:15 AM [facility] Narrative [facility] - 07/08/2025 5:31 AM [facility] See institution protocol. us Kamaljit Nicole MD LAB - CHEMISTRY ORDERABLES Fin al Result [facility] [address] [place] [address], [facility] [phone] * XR Chest 1Vw Portable (07/07/2025 4:37 AM [facility]) Only the most recent of7 resultswithin the time period is included. Anatomical Region Laterality Modality Chest Digital Radiogra phy 07/07/2025 12:1 0 PM [facility] Narrative 07/07/2025 12:39 PM [facility] PROCEDURE: XR CHEST 1VW PORTABLE, DATE/TIME OF EXAM: 07/07/2025 4:37 AM, LOCATION [facility] INDICATION: J96.01: Acute hypoxic respiratory failure (HCC) ADDITIONAL CLINICAL INFORMATION: Ordering Provider Reason For Exam: pulm congestion Technologist Note: Additional: COMPARISON: Chest radiograph dated 07/06 and multiple priors. FINDINGS/IMPRESSION: *Nasogastric tube outside the [id number]-nh-ivly. Redemonstrated consolidation in the left lower lobe with mild deviation of the mediastinum to the left and loss of lung volume which may indicate atelectasis. Bronchovascular crowding of the right lung likely from atelectasis. Small left pleural effusion is not excluded. The right lung is unremarkable. No pneumothorax is visible. Report dictated by Cristino Tomlin MD, ([facility]ated [facility] resident). > Dictated by Fireman Helper I, Tray Jarvis MD have personally reviewed and interpreted this examination/study. > Interpreting Provider: Tray Jarvis MD on 07/07/2025 12:39 PM Procedure Note Tray Jarvis MD - 07/07/2025 PROCEDURE: XR CHEST 1VW PORTABLE, DATE/TIME OF EXAM: 07/07/2025 4:37AM, LOCATION [facility] INDICATION: J96.01: Acute hypoxic respiratory failure (HCC) ADDITIONAL CLINICAL INFORMATION: Ordering Provider Reason For Exam: pulm congestion Technologist Note: Additional: COMPARISON: Chest radiograph dated 07/06 and multiple priors. FINDINGS/IMPRESSION: *Nasogastric tube outside the enmao-nx-nezh. Redemonstrated consolidation in the left lower lobe with mild deviationof the mediastinum to the left and loss of lung volume which may indicate atelectasis. Bronchovascular crowding of the right lung likely from atelectasis. Small left pleural effusion is not excluded. The right lung is unremarkable. No pneumothorax is visible. Report dictated by Cristino Tomlin MD, ([facility] resident). > Dictated by Fireman Helper I, Tray Jarvis MD have personally reviewed and interpreted this examination/study. > Interpreting Provider: Tray Jarvis MD on 2:39 PM Kamaljit Nicole MD DIAGNOSTIC IMAGING ORDERABLES Final Result * CALCIUM IONIZED WHOLE BLOOD (07/07/2025 3:26 AM [facility]) Only the most recent of6 resultswithin the time period is included. Calcium Ionized 1.21 mmol/L 07/07/2025 3:40 AM [facility] pH 7.35 7.35 - 7.45 pH 07/07/2025 3:40 AM [facility] Ionized Calcium pH Adjusted 1.19 1.19 - 1.34 mmol/L 07/07/2025 3:40 AM [facility] Blood BLOOD SPECIMEN / Unknown Venipuncture / Unknown 07/07/2025 3:26 AM [facility] 07/07/2025 3:35 AM [facility] us Gregg Swenson DO LAB - CHEMISTRY ORDERABLES F inal Result [facility] [address] [place] [address], [facility] [phone] * (ABNORMAL) BLOOD GASES ART + COOX PANEL (07/07/2025 3:26 AM [facility]) Only the most recent of11 resultswithin the time period is included. pH Arterial 7.33(L) 7.35 - 7.45 pH 07/07/2025 3:40 AM [facility] pO2 Arterial 64(L) 80 - 100 mmHg 07/07/2025 3:40 AM [facility] pCO2 Arterial 53(H) 35 - 45 mmHg 3:40 AM [facility] HCO3 Arterial 27.9 20.0 - 30.0 mmol/L 07/07/2025 3:40 AM [facility] BE Arterial 1.5 -2.0 - 2.0 mmol/L 07/07/2025 3:40 AM [facility] Oxyhemoglobin Arterial 90.2 % 07/07/2025 3:40 AM [facility] Dexoyhemoglobin (HHB) % 7.6 % 07/07/2025 3:40 AM [facility] Methemoglobin <0.8 0.0 - 2.0 % 07/07/2025 3:40 AM [facility] Carboxyhemoglobin 2.2(H) 0.0 - 2.0 % 2024 3:40 AM [facility] O2 Content Arterial 11.4 Interpret within clinical context ml/dL 07/07/2025 3:40 AM [facility] Hemoglobin by COOX 8.9(L) 12.0 - 17.6 g/dL 07/07/2025 3:40 AM [facility] O2 Saturation Arterial 92 90 - 100 % 07/07/2025 3:40 AM [facility] FI O2 Arterial 50.0 % 07/07/2025 3:40 AM [facility] Blood, arterial ARTERIAL BLOOD SPECIMEN / Unknown Arterial Puncture / Unknown 07/07/2025 3:26 AM [facility] 07/07/2025 3:35 AM [facility] - 07/07/2025 3:40 AM [facility] Carboxyhemoglobin Normal Concentration: Non-smokers: 0-2%; Smokers: 0-9%; Toxic: >20% us Erinn Murillo MD LAB - BLOOD GASES ORDERABLES Final Result [facility] [address] [place] [address], [facility] [phone] * (ABNORMAL) DIFFERENTIAL MANUAL (07/06/2025 12:34 PM [facility]) Only the most recent of2 resultswithin the time period is included. Neutrophil % 82(H) 41 - 74 % 07/06/2025 1:52 PM [facility] Lymphocyte % 7(L) 17 - 47 % 07/06/2025 1:52 PM [facility] Monocyte % 4 3 - 11 % 07/06/2025 1:52 PM [facility] Eosinophil % 4 0 - 7 % 07/06/2025 1:52 PM [facility] Basophil % 2 0 - 2 % 07/06/2025 1:52 PM [facility] Myelocyte % 1(H) 0% % 07/06/2025 1:52 PM [facility] Neutrophil Absolute 11.15(H) 1.60 - 7.50 x10E9/L 07/06/2025 1:52 PM [facility] Lymphocyte Absolute 0.95(L) 1.00 - 4.40 x10E9/L 07/06/2025 1:52 PM [facility] Monocyte Absolute 0.54 0.15 - 1.00 x10E9/L 07/06/2025 1:52 PM [facility] Eosinophil Absolute 0.54 0.00 - 0.60 x10E9/L 07/06/2025 1:52 PM [facility] Basophil Absolute 0.27(H) 0.00 - 0.13 x10E9/L 07/06/2025 1:52 PM [facility] RBC Morphology REVIEWED 07/06/2025 1:52 PM [facility] Blood BLOOD SPECIMEN / Unknown Venipuncture / Unknown 07/06/2025 12:34 PM [facility] 07/06/2025 12:42 PM [facility] us Kamaljit Nicole MD LAB - HEMATOLOGY ORDERABLES Fi nal Result [address] [address], [facility] [phone] * IR Picc Line Insert (07/05/2025 2:30 PM [facility]) Anatomical Region Laterality Modality Chest, Upper Extremity Other Narrative 07/05/2025 1:44 PM [facility] Danny Piedra MD 07/10/2025 9:25 PM Department of Interventional Radiology Procedure Note: PICC line placement 07/05/2025 History: Omar Baldwin is a 64 year old male W [...] soft tissue infection requiring excisional debridement of [id number], small bowel perforation resected and then left in discontinuity with Abthera placed. Indication: Nutritional Support Agriculture Sales Account Manager: Angelo Washington RN [place]-BC Procedures: 1. Limited extremity ultrasound to assess vascular patency 2. Ultrasound guided access of the Right basilic vein. 3. Placement of peripherally inserted central line with magnetic tracking and ECG tip positioning system ([employer]). Anesthesia: Local anesthesia with 5mL of 1% [...] magnetic tracking and ECG tip positioning system ([employer]), The peel-away sheath was removed, and the [...] procedure was performed by Angelo Washington RN [place]-. The final image was reviewed by , Interventional Radiology Attending- IR Attending: Danny Piedra MD The catheter can be used now. Kamaljit Nicole MD IR ORDERABLES Final Result * CULTURE BRONCHIAL WASHING+GRAM STAIN (07/05/2025 10:46 AM [facility]) Culture No growth SHAMAR 07/07/2025 7:29 AM [facility] Gram Stain Light Polymorphonuclear cells 07/07/2025 7:29 AM [facility] Gram Stain No organisms seen 025 7:29 AM [facility] Microbiology (Lung, Left Lower Lobe) Collection / Unknown 07/05/2025 10:46 AM [facility] 07/05/2025 10:52 AM [facility] Kamaljit Nicole MD LAB - MICROBIOLOGY ORDERABLES Final Result Performing Organization Address City/[facility]/ZIP Co de Phone Number [facility] [address] [place] [address], [facility] [phone] * (ABNORMAL) VANCOMYCIN LEVEL TROUGH (07/04/2025 3:29 PM [facility]) Only the most recent of2 resultswithin the time period is included. Vancomycin Trough 9.7(L) 10.0 - 20.0 ug/mL 07/04/2025 4:21 PM [facility] Blood BLOOD SPECIMEN / Unknown Venipuncture / Unknown 07/04/2025 3:29 PM [facility] 07/04/2025 3:31 PM [facility] Narrative [facility] - 07/04/2025 4:21 PM [facility] See institution protocol. Erinn Murillo MD LAB - CHEMISTRY ORDERABLES Fi nal Result [facility] [address] [place] [address], [place] [phone] * XR Abdomen Kub Portable (07/04/2025 2:25 PM [facility]) Only the most recent of2 resultswithin the time period is included. Anatomical Region Laterality Modality Abdomen Digital Radiogra phy 07/04/2025 9:15 PM [facility] Narrative 07/04/2025 9:15 PM [facility] PROCEDURE: XR ABDOMEN KUB PORTABLE, DATE/TIME OF EXAM: 07/04/2025 2:25 PM, LOCATION [facility] INDICATION: K43.7: Ventral hernia with gangrene ADDITIONAL [...] DATE/TIME OF EXAM: 07/04/2025 2:25PM, LOCATION [facility] INDICATION: K43.7: Ventral hernia with gangrene ADDITIONAL CLINICAL INFORMATION: Ordering Provider Reason For Exam: NG tube positioning Technologist Note: Additional: COMPARISON: None. Nasogastric tube is in the stomach. Partially visualized distended loopsof small bowel. > Interpreting Provider: Matias Finley MD on 07/04/2025 9:15 PM Erinn Murillo MD DIAGNOSTIC IMAGING ORDERABLES Final Result * CT Chest Wo Contrast (07/04/2025 9:44 AM [facility]) Anatomical Region Laterality Modality Chest Computed Tomogra phy 07/04/2025 9:50 AM [facility] Impressions 07/04/2025 9:55 AM [facility] IMPRESSION: Atelectasis of the lower lobe of the left lung and dependent upper lobe associated with the decrease volume of the left hemithorax and leftward shift of the heart and mediastinum. Mild dependent atelectasis in the right lung base. Partially imaged upper abdomen shows ventral hernia. > Interpreting Provider: Tray Jarvis MD on 07/04/2025 9:55 AM Narrative 07/04/2025 9:55 AM [facility] PROCEDURE: CT CHEST WO CONTRAST DATE/TIME OF [...] Provider: Tray Jarvis MD on 59:55 AM us Erinn Murillo MD CT ORDERABLES Final Result * PATHOLOGY TISSUE (07/03/2025 8:49 AM [facility]) Only the most recent of2 resultswithin the time period is included. Case Report Surgical Pathology Report Case: [id number] Authorizing Provider: Erinn Murillo MD Collected: 07/03/2025 08:49 AM Ordering Location: [facility] ICU Received: 07/03/2025 10:55 AM Pathologist: Jackie Tomlin MD Specimen: Small Bowel, small bowel 07/04/2025 12:57 PM [facility] Final Diagnosis Small bowel, resection (A) - Portion of small bowel with reactive changes - Serosal adhesions and serositis - Margins of resection with viable mucosa 07/04/2025 12:57 PM [facility] at 1257 [facility] Microscopic Description and Comment Microscopic examination substantiates the final diagnosis. 07/04/2025 12:57 PM [facility] Clinical History ventral hernia 07/04/2025 12:57 PM [facility] Gross Description The requisition and specimen(s) are identified with the patient's name Omar Baldwin. Received in formalin, specimen A, is an [...] mucosa detached fibroadipose tissue./ANC 07/04/2025 12:57 PM [facility] Pathologist Location at [facility] 07/04/2025 12:57 PM [facility] Disclaimer The performance characteristics of all immunohistochemical and indirect immunofluorescence stains (if any) cited in this report were determined by the Histopathology Laboratory of [facility]. Some of these tests [...] the attending (teaching) pathologist. 07/04/2025 12:57 PM [facility] Embedded Images 07/04/2025 12:57 PM [facility] Resection without Tumor SMALL BOWEL RESECTION SPECIMEN / Unknown 07/03/2025 8:49 AM [facility] 07/03/2025 10:55 AM [facility] Comment:Pre-op diagnosis: Incarcerated ventral hernia [K43.6] us Erinn Murillo MD LAB - PATHOLOGY/CYTOLOGY BLAYNE WEBER Final Result [facility] [address] [place] [address], [facility] [phone] * (ABNORMAL) BLOOD GAS+COOX+LYTES+METAB ARTERIAL POCT (07/03/2025 8:29 AM [facility]) Only the most recent of4 resultswithin the time period is included. pH Arterial 7.33(L) 7.35 - 7.45 pH 07/03/2025 8:29 AM [facility] pO2 Arterial 107(H) 80 - 100 mmHg 07/03/2025 8:29 AM [facility] pCO2 Arterial 49(H) 35 - 45 mmHg 8:29 AM [facility] HCO3 Arterial 25.8 20.0 - 30.0 mmol/L 07/03/2025 8:29 AM [facility] BE Arterial -0.5 -2.0 - 2.0 mmol/L 07/03/2025 8:29 AM [facility] Oxyhemoglobin Arterial 97.2 % 07/03/2025 8:29 AM [facility] Dexoyhemoglobin (HHB) % 1.5 % 07/03/2025 8:29 AM [facility] Methemoglobin <0.8 0.0 - 2.0 % 07/03/2025 8:29 AM [facility] Carboxyhemoglobin 1.1 0.0 - 2.0 % 2024 8:29 AM [facility] Comment:Carboxyhemoglobin No rmal Concentration: Non-smokers: 0-2%; Smokers: 0- 9%; Toxic: >20% O2 Content Arterial 14.7 Interpret within clinical context ml/dL 07/03/2025 8:29 AM [facility] Hemoglobin by COOX 10.6(L) 12.0 - 17.6 g/dL 07/03/2025 8:29 AM [facility] O2 Saturation Arterial 99 90 - 100 % 07/03/2025 8:29 AM [facility] Sodium Whole Blood 137 135 - 145 mmol/L 07/03/2025 8:29 AM [facility] Potassium Whole Blood 4.0 3.5 - 5.5 mmol/L 07/03/2025 8:29 AM [facility] Chloride WB 105 78 - 107 mmol/L 07/03/2025 8:29 AM [facility] Calcium Ionized 1.20 mmol/L 8:29 AM [facility] Ionized Calcium pH Adjusted 1.17(L) 1.19 - 1.34 mmol/L 07/03/2025 8:29 AM [facility] Anion Gap (AG) Arterial 6 6 - 16 mmol/L 07/03/2025 8:29 AM [facility] Glucose WB 144(H) 70 - 99 mg/dL 07/03/2025 8:29 AM [facility] Lactic Acid Whole Blood 1.1 <=2.0 mmol/L 07/03/2025 8:29 AM [facility] Blood, arterial ARTERIAL BLOOD SPECIMEN / Unknown 07/03/2025 8:29 AM [facility] 07/03/2025 8:30 AM [facility] Erinn Murillo MD LAB - POINT OF CARE ORDERABLE S Final Result Performing Organization Address City/[facility]/ZIP Co de Phone Number [facility] [address] [place] [address], [place] [phone] * EKG 12-Lead (07/03/2025 6:29 AM [facility]) Ventricular Rate 50 BPM [facility] QRS Duration ms 164 ms [facility] Q-T Interval ms 476 ms [facility] QTC Calculation (Bezet) 433 ms SL MUSE Calculated R [place] 21 degrees SL MUSE Calculated T [place] -36 degrees [facility] Interpretation EKG ATRIAL FIBRILLATION WITH SLOW VENTRICULAR RESPONSE NON-SPECIFIC INTRA-VENTRICUL AR CONDUCTION BLOCK CANNOT RULE OUT SEPTAL INFARCT , AGE UNDETERMINED POSSIBLE LATERAL INFARCT , AGE UNDETERMINED ABNORMAL ECG NO PREVIOUS ECGS AVAILABLE Confirmed by JEANNA CHILD DO ([id number]) on 07/04/2025 10:27:18 PM [facility] 07/03/2025 6:29 AM [facility] 07/04/2025 10:27 PM [facility] Erinn Murillo MD ECG ORDERABLES Edited Result - Final Performing Organization Address [facility] Co de Phone Number [facility] * XR Chest 1Vw (07/03/2025 4:23 AM [facility]) Only the most recent of2 resultswithin the time period is included. Anatomical Region Laterality Modality Chest Digital Radiogra phy 07/03/2025 8:48 AM [facility] Narrative 07/03/2025 1:03 PM [facility] PROCEDURE: XR CHEST 1VW, DATE/TIME OF EXAM: 07/03/2025 4:24 AM, LOCATION [facility] INDICATION: K43.7: Ventral hernia with gangrene ADDITIONAL [...] by Damir Frances MD > Dictated by Fireman Helper I, Ivis Waller MD have personally reviewed and interpreted this examination/study. > Interpreting Provider: Ivis Waller MD on 07/03/2025 1:03 PM Procedure Note Ivis Waller MD - 07/03/2025 PROCEDURE: XR CHEST 1VW, DATE/TIME OF EXAM: 07/03/2025 4:24 AM, LOCATION [facility] INDICATION: K43.7: Ventral hernia with gangrene ADDITIONAL [...] by Damir Frances MD > Dictated by Fireman Helper I, Ivis Waller MD have personally reviewed and interpreted this examination/study. > Interpreting Provider: Ivis Waller MD on 07/03/2025 1:03 PM us Kamaljit Nicole MD DIAGNOSTIC IMAGING ORDERABLES Final Result * LACTIC ACID BLOOD (07/02/2025 10:52 AM [facility]) Pathologist [facility] Lactic Acid-Stat 1.5 <=2.0 mmol/L 07/02/2025 11:33 AM [facility] Blood BLOOD SPECIMEN / Unknown Venipuncture / Unknown 07/02/2025 10:52 AM [facility] 07/02/2025 11:03 AM [facility] Kamaljit Nicole MD LAB - CHEMISTRY ORDERABLES Fin al Result [address] [address], [place] [phone] * BLOOD GAS ART+LYTES+METAB+COOX POC NOTIF (07/02/2025 9:24 AM [facility]) [facility] Comment Notification Label Only - See Separate Report 07/03/2025 9:30 AM [facility] Other MISCELLANEOUS SAMPLES / Unknown 07/02/2025 9:24 AM [facility] 07/03/2025 8:28 AM [facility] us Estrada Mcdermott DO LAB - BLOOD GASES ORDERAB LES Final Result [address] [address], [place] [phone] * LACTIC ACID WHOLE BLOOD (07/02/2025 5:51 AM [facility]) Only the most recent of2 resultswithin the time period is included. Pathologist [facility] Lactic Acid Whole Blood 1.6 <=2.0 mmol/L 07/02/2025 6:07 AM [facility] Blood WHOLE BLOOD SPECIMEN / Unknown Venipuncture / Unknown 07/02/2025 5:51 AM [facility] 07/02/2025 6:01 AM [facility] us Gregg J Messi DO LAB - CHEMISTRY ORDERABLES F inal Result Performing Organization Address City/[facility]/ZIP Co de Phone Number [facility] [address] [place] [address], [place] [phone] * BLOOD TYPE VERIFICATION (07/02/2025 12:49 AM [facility]) ABO Rh A POS 07/02/2025 1:2 0 AM [facility] Blood Bank BLOOD SPECIMEN / Unknown Venipuncture / Unknown 07/02/2025 12:49 AM [facility] 07/02/2025 12:49 AM [facility] Gregg Swenson DO LAB - BLOOD BANK ORDERABLES Final Result Performing Organization Address [facility] Co de Phone Number [facility] [address] [place] [address], [place] [phone] * HEMOGLOBIN A1C (07/02/2025 12:32 AM [facility]) Hemoglobin A1c 5.4 <=5.6 % 07/02/2025 8:45 AM [facility] Estimated Average Glucose 108 mg/dL 07/02/2025 8:45 AM [facility] Comment: HbA1c Interpretation: Normal : < 5.7% Pre-diabetes: 5.7-6.4% Diabetes: Equal to or greater than 6.5% Test results diagnostic of diabetes should be repeated for confirmation. Treatment target values recommended by ADA and other clinical organizations should be used to evaluate metabolic control in patients. Reference: [place] [employer], Standards of Care in Diabetes -2020 In patients 70 years and older consider HbA1c target range of 7.0-7.5% (Reference: Jad Hanks et al. JAMDA. 2012) The Sebia assay for the measurement of HbA1c is a National Glycohemoglobin Standardization Program (NGSP) certified method. Blood BLOOD SPECIMEN / Unknown Venipuncture / Unknown 07/02/2025 12:32 AM [facility] 07/02/2025 12:48 AM [facility] us Gregg Swenson DO LAB - CHEMISTRY ORDERABLES F inal Result [facility] [address] [facility] [place] [address], [facility] [phone] * MRSA PCR (07/02/2025 12:31 AM [facility]) MRSA DNA by PCR Not detected Not detected 07/02/2025 6:01 AM [facility] Microbiology SPECIMEN FROM NASAL FOSSAE / Unknown Collection / Unknown 07/02/2025 12:31 AM [facility] 07/02/2025 12:46 AM [facility] Narrative [facility] - 07/02/2025 6:01 AM [facility] Methicillin-resistant Staphylococcus aureus (MRSA) DNA is not detected (presumed not colonized with MRSA). us Gregg Swenson DO LAB - MICROBIOLOGY ORDERABLE S Final Result Performing Organization Address City/[facility]/ZIP Co de Phone Number [facility] [address] [place] [address], [facility] [phone] * (ABNORMAL) URINALYSIS REFLEX TO MICROSCOPIC NO CULTURE (07/02/2025 12:31 AM [facility]) Color UA Yellow Yellow, Straw 07/02/2025 12:52 AM [facility] Clarity UA Turbid(A) Clear 07/02/2025 12:52 AM [facility] Glucose UA Normal Normal 07/02/2025 12:52 AM [facility] Bilirubin UA Negative Negative 07/02/2025 12:52 AM [facility] Ketone UA Negative Negative 07/02/2025 12:52 AM [facility] Specific [place] UA 1.044(H) 1.005 - 1.030 07/02/2025 12:52 AM [facility] Blood UA Negative Negative 07/02/2025 12:52 AM [facility] pH UA 5.5 5.0 - 8.0 07/02/2025 12:52 AM [facility] Protein UA Trace(A) Negative 07/02/2025 12:52 AM [facility] Urobilinogen UA Normal Normal mg/dL 07/02/2025 12:52 AM [facility] Nitrite UA Negative Negative 07/02/2025 12:52 AM [facility] Leukocyte Esterase UA Negative Negative 07/02/2025 12:52 AM [facility] Urine Microscopy Urine microscopy not indicated 07/02/2025 12:52 AM [facility] Urine URINE SPECIMEN OBTAINED BY CLEAN CATCH PROCEDURE / Unknown Collection / Unknown 07/02/2025 12:31 AM [facility] 07/02/2025 12:45 AM [facility] Gregg Swenson DO LAB - URINALYSIS ORDERABLES Final Result Performing Organization Address [facility]/ZIP Co de Phone Number [address] [address], [facility] [phone] * (ABNORMAL) NT-PRO BNP (07/02/2025 12:30 AM [facility]) NT-proBNP 5,883.4(H) <900.0 pg/mL 07/02/2025 1:41 AM [facility] Blood BLOOD SPECIMEN / Unknown Venipuncture / Unknown 07/02/2025 12:30 AM [facility] 07/02/2025 12:48 AM [facility] Narrative [facility] - 07/02/2025 1:41 AM [facility] NT-pro-BNP values below 300 pg/mL, for individuals 18 or above, have a 99% negative predictive value for excluding acute congestive heart failure (CHF). In patients with eGFR less than 60 mL/min/1.73 m2, caution should be used when interpreting NT-pro-BNP results. Results should be assessed in conjunction with the patient s medical history, clinical examination, and other findings. NT-pro-BNP is measured on the [employer] analyzer using chemiluminescent microparticle immunoassay (CMIA) technology. Gregg Swenson DO LAB - CHEMISTRY ORDERABLES F inal Result Performing Organization Address [facility]/ZIP Co de Phone Number [address] [address], [place] [phone] * (ABNORMAL) FIBRINOGEN ACTIVITY (07/02/2025 12:30 AM [facility]) Fibrinogen Clauss 1,052(H) 200 - 400 mg/dL 07/02/2025 1:20 AM [facility] Blood BLOOD SPECIMEN / Unknown Venipuncture / Unknown 07/02/2025 12:30 AM [facility] 07/02/2025 12:48 AM [facility] us Gregg Swenson DO LAB - COAGULATION ORDERABLES Final Result Performing Organization Address City/[facility]/ZIP Co de Phone Number [address] [address], [place] [phone] * TSH (07/02/2025 12:30 AM [facility]) TSH 3.582 0.350 - 4.940 uIU/mL 07/02/2025 1:41 AM [facility] Blood BLOOD SPECIMEN / Unknown Venipuncture / Unknown 07/02/2025 12:30 AM [facility] 07/02/2025 12:48 AM [facility] Gregg Swenson DO LAB - CHEMISTRY ORDERABLES F inal Result Performing Organization Address [facility]/ZIP Co de Phone Number [address] [address], [place] [phone] * XR Abdomen Kub (07/02/2025 12:02 AM [facility]) Anatomical Region Laterality Modality Abdomen Digital Radiogra phy 07/02/2025 7:29 AM [facility] Impressions 07/02/2025 9:50 AM [facility] IMPRESSION: Nonobstructive bowel gas pattern. Report dictated by Damir Frances MD post surgery > Dictated by Fireman Helper I, Ivis Waller MD have personally reviewed and interpreted this examination/study. > Interpreting Provider: Ivis Waller MD on 07/02/2025 9:50 AM Narrative 07/02/2025 9:50 AM [facility] PROCEDURE: XR ABDOMEN KUB, DATE/TIME OF EXAM: 07/02/2025 12:02 AM, LOCATION [facility] INDICATION: R10.84: Generalized abdominal pain ADDITIONAL CLINICAL [...] OF EXAM: 07/02/2025 12:02 AM, LOCATION [facility] INDICATION: R10.84: Generalized abdominal pain ADDITIONAL CLINICAL [...] Frances MD post surgery > Dictated by Fireman Helper I, Ivis Waller MD have personally reviewed and interpreted this examination/study. > Interpreting Provider: Ivis Waller MD on 07/02/2025 9:50 AM Gregg Swenson DO DIAGNOSTIC IMAGING ORDERABLE S Final Result * SUSCEPTIBILITY FUNGUS/YEAST (07/01/2025 11:50 PM [facility]) Prelim Report SEE NOTE 07/09/2025 5:24 PM [facility] ([facility]) Comment: Specimen received and in progress. INTERPRETIVE INFORMATION: Susceptibility, Fungal (Yeasts and Molds) Units = ug/mL YSTMIC Amphotericin B 1 None Rezafungin 0.016 Suscept Anidulafungin 0.03 Suscept Micafungin 0.12 Suscept Voriconazole 0.25 Suscept Isavuconazole 0.25 None Posaconazole 0.25 None Itraconazole 0.25 None Fluconazole Resist Caspofungin 0.25 Suscept Performed By: [facility] [address] [place] [address] Calibration Engineer: Chava Osbonre MD, PhD CLIA Number: [id number] Final Report SEE NOTE 07/09/2025 5:24 PM [facility] [employer] ([facility]) Comment: Pichia kudriavzevii (Previously Mignon krusei) Organism identified by client INTERPRETIVE INFORMATION: Susceptibility, Fungal (Yeasts and Molds) Units = ug/mL YSTMIC Amphotericin B 1 None Rezafungin 0.016 Suscept Anidulafungin 0.03 Suscept Micafungin 0.12 Suscept Voriconazole 0.25 Suscept Isavuconazole 0.25 None Posaconazole 0.25 None Itraconazole 0.25 None Fluconazole Resist Caspofungin 0.25 Suscept Performed By: [facility] [address] [place] [address] Calibration Engineer: Chava Osborne MD, PhD CLIA Number: [id number] Other PERITONEAL FLUID / Unknown Collection / Unknown 07/01/2025 11:50 PM [facility] 07/02/2025 1:34 AM [facility] CENTER PROFESSIONAL Narrative [facility] ([facility]) - 07/09/2025 5:24 PM [facility]TACT CENTER PROFESSIONAL SHAMAR=Minimum Inhibitory Concentration MEC=Minimum Effective Concentration SHAMAR=Minimum Inhibitory Concentration MEC=Minimum Effective Concentration SHAMAR=Minimum Inhibitory Concentration MEC=Minimum Effective Concentration SHAMAR=Minimum Inhibitory Concentration MEC=Minimum Effective Concentration SHAMAR=Minimum Inhibitory Concentration MEC=Minimum Effective Concentration SHAMAR=Minimum Inhibitory Concentration MEC=Minimum Effective Concentration Gregg Swenson DO LAB - MICROBIOLOGY ORDERABLE S Final Result [facility] ([facility]) [address] [place] [address], [facility] * (ABNORMAL) CULTURE FLUID+GRAM STAIN (07/01/2025 11:50 PM [facility] PROFESSIONAL) Culture Heavy Escherichia coli(AA) SHAMAR 07/10/2025 7:32 AM CONTACT CENTER PROFESSIONAL [facility] Culture Heavy Streptococcus anginosus(AA) SHAMAR 07/10/2025 7:32 AM [facility] PROFESSION[facility] Culture Rare Mignon krusei(AA) 07/10/2025 7:32 AM [facility] Comment: Referred to [facility] for susceptibility Referred to [facility] [address] [place] [id number] See separate reference laboratory report Gram Stain Light Polymorphonuclear cells(AA) 07/10/2025 7:32 AM [facility] Gram Stain Heavy Gram-positive cocci(AA) 07/10/2025 7:32 AM [facility] Gram Stain Heavy Gram-negative bacilli(AA) 07/10/2025 7:32 AM [facility] Gram Stain Moderate Gram-positive bacilli(AA) 07/10/2025 7:32 AM [facility] Gram Stain Rare Yeast(AA) 07/10/2025 7:32 AM [facility] Other PERITONEAL FLUID / Unknown Collection / Unknown 07/01/2025 11:50 PM CONTACT C[facility] PROFESSIONAL 07/02/2025 1:34 AM [facility] Narrative Organism Antibiotic Method Susceptibility Escherichia coli [...] Streptococcus anginosus Vancomycin SHAMAR 0.5 ug/mL: Susceptible Gregg Swenson DO LAB - MICROBIOLOGY ORDERABLE S Final Result Performing Organization Address City/[facility]/ZIP Co de Phone Number [facility] [address] [place] [address], [facility] [phone] * (ABNORMAL) CULTURE ANAEROBE (07/01/2025 11:50 PM [facility] PROFESSION[facility]) Culture Moderate Phocaeicola (formerly Bacteroides) vulgatus(AA) 07/08/2025 10:13 AM [facility] C[facility] PROFESSIONAL [facility] Comment:Beta-lactamase posit ester Culture Moderate Prevotella denticola(AA) 07/08/2025 10:13 AM [facility] Comment:Beta-lactamase negat ester Culture Moderate Clostridium paraputrificum( AA) 07/08/2025 10:13 AM [facility] Comment:Beta-lactamase negat ester Culture Moderate Finegoldia magna(AA) 07/08/2025 10:13 AM [facility] Microbiology PERITONEAL FLUID / Unknown Collection / Unknown 07/01/2025 11:50 PM [facility] PROFESSION[facility] 07/01/2025 11:55 PM [facility] PROFESSION[facility] Narrative [facility] - 07/08/2025 10:13 AM [facility] PROF[facility] Caution: The absence of beta-lactamase does not mean that the organism is susceptible to beta-lactams. Isolates may still be resistant to beta-lactams by a mechanism other than beta-lactamase production. Gregg Swenson DO LAB - MICROBIOLOGY ORDERABLE S Final Result Performing Organization Address City/[facility]/ZIP Co de Phone Number [facility] [address] [place] [address], [facility] [phone] * IV PLACEMENT PERFORMABLE (07/01/2025 11:12 PM [facility] PROFESSION[facility]) Narrative Nik Gallo MD - 07/01/2025 11:12 PM [facility] PROFESSIONAL Nik Gallo MD 07/01/2025 11:12 PM Peripheral IV Line Placement: Patient Location: OR Procedure: IV start ([id number]) Procedure Section: Skin Prep: alcohol. Orientation: right Location: forearm Local Anesthetic Used? No Catheter Gauge: 18 Number of Attempts: 1. Procedure Tolerance: performed while patient under general anesthesia. Staff Section Anesthesia Provider: Nik Gallo MD, Performed the procedure Estrada Mcdermott DO GENERAL ANESTHESIA ORDERA BLES Final Result * IV PLACEMENT PERFORMABLE (07/01/2025 11:12 PM [facility] PROFESSION[facility]) Nik Meyer MD - 07/01/2025 11:12 PM [facility] PROFESSIONAL Nik Gallo MD 07/01/2025 11:12 PM Peripheral IV Line Placement: Patient Location: OR Procedure: IV start ([id number]) Procedure Section: Skin Prep: alcohol. Orientation: left Location: antecubital Local Anesthetic Used? No Catheter Gauge: 14 Number of Attempts: 1. Adjuncts: ultrasound Procedure Tolerance: performed while patient under general anesthesia. Staff Section Anesthesia Provider: Nik Gallo MD, Performed the procedure Estrada Mcdermott DO GENERAL ANESTHESIA ORDERA BLES Final Result * ARTERIAL LINE PERFORMABLE (07/01/2025 9:20 PM [facility] PROFESSION[facility]) Nik Meyer MD - 07/01/2025 9:20 PM [facility] PROFESSIONAL Nik Gallo MD 07/01/2025 9:20 PM Arterial Line Placement Procedure Note Patient Location: OR. Procedure: Arterial Line ([id number]) Procedure Section Indications: continuous blood pressure monitoring. Consent: informed consent was obtained for the procedure. Skin Prep: Chloraprep. Orientation: Left. Site: radial. Site Identification: ultrasound guided with sterile sleeve and gel. Gauge: 20. Seldinger Technique Used? Yes Number of Attempts: 1. Line Secured with: tape and Tegaderm. Procedure Tolerance: tolerated well. Events: none. Patient Sedated? Yes Local Anesthetic Used? No Sedation Types: general anesthesia Staff Section Anesthesia Provider: Nik Gallo MD, Performed the procedure Provider #1: Estrada Mcdermott DO. Estrada Mcdermott DO GENERAL ANESTHESIA ORDERA BLES Final Result * ETT LINE PERFORMABLE (07/01/2025 9:19 PM [facility] PROFESSION[facility]) Narrative Nik Gallo MD - 07/01/2025 9:19 PM [facility] PROFESSIONAL Nik Gallo MD 07/01/2025 9:20 PM Endotracheal Tube Placement: Patient Location: OR. Procedure: intubation ([id number]) Procedure Section: Sedation: under general anesthesia. Indications for Airway Management: anesthesia Procedure pretreatments used? No Induction: standard IV Patient Position: sniffing Mask Ventilation: easy with oral airway. Blade Type: Video Blade Size: 4 Laryngoscopy View: grade 1 (full cords) Intubation Adjuncts: stylet Tube: endotracheal tube Placement: oral Tube type: cuff - inflated Tube Size (MM): 7 Measured From: lips Cuff inflation pressure (CM H20): 20 Cuff Inflated With: air Number of Attempts: 1. Placement Verified By: direct visualization, bilateral breath sounds, chest auscultation and CO2 monitor Tube secured with: adhesive tape. Dentition unchanged? Yes Difficult Airway? No. Staff Section Anesthesia Provider: Nik Gallo MD, Performed the procedure Provider #1: Estrada Mcdermott DO. Estrada Mcdermott DO GENERAL ANESTHESIA ORDERA BLES Final Result * PREPARE (CROSSMATCH) RBC UNIT(S), 6 Units (07/01/2025 8:11 PM [facility]CT [facility] PROFESSIONAL) Unit Description AS1 LR PRBC [facility] Unit ABO A [facility] Unit Rh POS [facility] Product Number R02 [facility] Unit Donor # [id number] [facility] Unit Status released [facility] Product Code [id number] [facility] Blood Type Barcode 6200 [facility] Expiration Date S [facility] Unit Description AS1 LR PRBC [facility] Unit ABO A [facility] Unit Rh POS [facility] Product Number R02 [facility] Unit Donor # [id number] [facility] Unit Status released [facility] Product Code [id number] [facility] Blood Type Barcode 6200 [facility] Expiration Date S [facility] Unit Description AS1 LR PRBC [facility] Unit ABO A [facility] Unit Rh POS [facility] Product [facility] R02 [facility] Unit Donor # [id number] [facility] Unit Status released [facility] Product Code [id number] [facility] Blood Type Barcode 6200 [facility] Expiration Date [facility] Unit Description AS1 LR PRBC [facility] Unit ABO A [facility] Unit POS [facility] Product Number R02 [facility] Unit Donor # [id number] [facility] Unit Status released [facility] Product Code [id number] [facility] Blood Type Barcode 6200 [facility] Expiration Date [facility] Unit Description AS1 LR PRBC [facility] Unit ABO A [facility] Unit POS [facility] Product Number R02 [facility] Unit Donor [facility] [id number] [facility] Unit Status released [facility] Product Code [id number] [facility] Blood Type Barcode 6200 [facility] Expiration Date [facility] Unit Description AS1 LR PRBC [facility] Unit ABO A [facility] Unit POS [facility] Product Number R02 [facility] Unit Donor # [id number] [facility] Unit Status released [facility] Product [facility] [id number] [facility] Blood Type Barcode 6200 [facility] Expiration Date [facility] Blood Bank BLOOD SPECIMEN / Unknown 07/01/2025 8:11 PM [facility] PROFESSION[facility] 07/01/2025 8:16 PM [facility]TACT CENTER PROFESSIONAL Carlos Parkinsno MD LAB - BLOOD BANK ORDERABLES Fi nal Result [facility] [address] [place] [address], [place] [phone] * PREPARE PLATELET PHERESIS UNIT(S), 2 Units (07/01/2025 8:11 PM [facility] PROFESSION[facility]) Unit Description N/A [facility] Blood Bank BLOOD SPECIMEN / Unknown 07/01/2025 8:11 PM [facility] PROFESSION[facility] 07/01/2025 8:16 PM [facility] PROFESSIONAL Carlos Parkinson MD LAB - BLOOD BANK ORDERABLES Fi nal Result [facility] [address] [place] [address], [place] [phone] * PREPARE FFP UNIT(S), 6 Units (07/01/2025 8:11 PM CON[facility]CT CENTER PROFESSIONAL) Pathologist [facility] Unit Description N/A [facility] Blood Bank BLOOD SPECIMEN / Unknown 07/01/2025 8:11 PM [facility] PROFESSION[facility] 07/01/2025 8:16 PM [facility] PROFESSION[facility] Carlos Parkinson MD LAB - BLOOD BANK ORDERABLES Fi nal Result Performing Organization Address City/[facility]/ZIP Co de Phone Number [facility] [address] [place] [address], [place] [phone] * TYPE + SCREEN PANEL (07/01/2025 8:11 PM CONTACT CENTER PROFESSIONAL) [facility] Antibody Screen NEG 8:59 PM [facility]CT C[facility] PROFESSIONAL [facility] ABO Rh A POS 07/01/2025 8:59 PM [facility] PROFESSIONAL [facility] Blood Bank BLOOD SPECIMEN / Unknown Venipuncture / Unknown 07/01/2025 8:11 PM [facility] PROFESSION[facility] 07/01/2025 8:16 PM [facility] PROFESSION[facility] Gregg Swenson DO LAB - BLOOD BANK ORDERABLES Final Result [facility] [address] [place] [address], [place] [phone] * (ABNORMAL) TEG 6 GLOBAL HEMOSTASIS W/ LYSIS (07/01/2025 7:18 PM [facility] PROFESSION[facility]) Citrated Kaolin R (Reaction Time) 9.3(H) 4.6 - 9.1 min 07/01/2025 8:38 PM [facility] Comment:CK R result above no rmal range. Consistent with hypocoagulable clotting factors. Consider presence of clotting factor deficiency and/or anti-coagulant. Citrated Kaolin LY30 (Lysis) 0.0 0.0 - 2.6 % 07/01/2025 8:38 PM [facility] Citrated Functional Fibrinogen MA (Max Amplitude) >52.0(H) 15.0 - 32.0 mm 07/01/2025 8:38 PM [facility] Comment:CFF MA above normal range. Consistent with elevated fibrinogen contribution to clot strength. Citrated RapidTEG MA (Max Amplitude) 74.6(H) 52.0 - 70.0 mm 07/01/2025 8:38 PM [facility] Blood BLOOD SPECIMEN / Unknown Venipuncture / Unknown 07/01/2025 7:18 PM [facility] PROFESSION[facility] 07/01/2025 7:38 PM [facility] us Carlos Parkinson MD LAB - HEMATOLOGY ORDERABLES Fi nal Result Performing Organization Address [facility]/State/ZIP Co de Phone Number [facility] [address] [place] [address], [facility] [phone] * (ABNORMAL) TEG 6S PLATELET MAPPING (07/01/2025 7:18 PM [facility] PROFESSION[facility]) TEGPLM (Max Amplitude) Koalin >71.0(H) 53.0 - 68.0 mm 07/01/2025 8:19 PM [facility] TEGPLM (Max Amplitude) ACTF >30.0(H) 2.0 - 19.0 mm 07/01/2025 8:19 PM [facility] TEGPLM (Max Amplitude) ADP 55.2 45.0 - 69.0 mm 07/01/2025 8:19 PM [facility] TEGPLM (Max Amplitude) AA 67.8 51.0 - 71.0 mm 07/01/2025 8:19 PM [facility] TEGPLM %Inhibition ADP 07/01/2025 8:19 PM [facility] Comment:1 or more values are outside of the TEG maximum reportable ranges, calculation cannot be determined. TEGPLM %Inhibition AA 07/01/2025 8:19 PM [facility] Comment:1 or more values are outside of the TEG maximum reportable ranges, calculation cannot be determined. TEGPLM %Aggregation ADP 07/01/2025 8:19 PM [facility] Comment:1 or more values are outside of the TEG maximum reportable ranges, calculation cannot be determined. TEGPLM % Aggregation AA 07/01/2025 8:19 PM [facility] Comment:1 or more values are outside of the TEG maximum reportable ranges, calculation cannot be determined. Blood BLOOD SPECIMEN / Unknown Venipuncture / Unknown 07/01/2025 7:18 PM [facility] 07/01/2025 7:38 PM [facility] us Carlos Parkinson MD LAB - HEMATOLOGY ORDERABLES Fi nal Result Performing Organization Address City/[facility]/ZIP Co de Phone Number [address] [address], [facility] [phone] * LACTIC ACID BLOOD REFLEX TO REPEAT (07/01/2025 7:18 PM [facility] PROFESSION[facility]) Lactic Acid-Stat 1.9 <=2.0 mmol/L 07/01/2025 7:56 PM [facility] Blood BLOOD SPECIMEN / Unknown Venipuncture / Unknown 07/01/2025 7:18 PM [facility] 07/01/2025 7:25 PM [facility] us Carlos Parkinson MD LAB - CHEMISTRY ORDERABLES Fin al Result Performing Organization Address City/[facility]/ZIP Co de Phone Number [address] [address], [place] [phone] * (ABNORMAL) PROLACTIN (07/01/2025 7:18 PM [facility] PROFESSION[facility]) Pathologist [facility] Prolactin 18.7(H) 2.1 - 17.7 ng/mL 07/04/2025 3:16 PM CONTACT CENTER PROFESSIONAL [facility]) Comment: REFERENCE INTERVAL: Prolactin Access complete set of age- and/or gender-specific reference intervals for this test in the [facility] Laboratory Test Directory (Divvyshot). Performed By: [place] [address] Calibration Engineer: Chava Osborne MD, PhD CLIA Number: [id number] Blood BLOOD SPECIMEN / Unknown Venipuncture / Unknown 07/01/2025 7:18 PM [facility] PROFESSION[facility] 07/01/2025 7:24 PM [facility] us Carlos Parkinson MD LAB - CHEMISTRY ORDERABLES Fin al Result [facility]) [address] [place] [address] * (ABNORMAL) COMPREHENSIVE METABOLIC PANEL (07/01/2025 7:18 PM CON[facility] PROFESSIONAL) Pathologist [facility] BUN 46(H) 7 - 26 mg/dL 07/01/2025 7:54 PM [facility] Creatinine 1.74(H) 0.71 - 1.16 mg/dL 07/01/2025 7:54 PM [facility] Sodium 138 136 - 145 mmol/L 07/01/2025 7:54 PM [facility] Potassium 5.0(H) 3.5 - 4.5 mmol/L 07/01/2025 7:54 PM [facility] Chloride 105 98 - 107 mmol/L 07/01/2025 7:54 PM [facility] CO2 24 22 - 29 mmol/L 07/01/2025 7:54 PM [facility] Glucose 90 70 - 99 mg/dL 07/01/2025 7:54 PM [facility] Calcium 8.8 8.4 - 10.2 mg/dL 07/01/2025 7:54 PM [facility] Protein Total 6.5 6.0 - 8.3 g/dL 07/01/2025 7:54 PM [facility] Albumin 2.1(L) 3.4 - 5.0 g/dL 07/01/2025 7:54 PM [facility] Bilirubin Total 1.8(H) 0.2 - 1.2 mg/dL 07/01/2025 7:54 PM [facility] Alkaline Phosphatase 115 40 - 150 U/L 07/01/2025 7:54 PM [facility] ALT 41 5 - 55 U/L 07/01/2025 7:54 PM [facility] AST 44(H) 5 - 34 U/L 07/01/2025 7:54 PM [facility] Anion Gap 9 6 - 16 07/01/2025 7:54 PM [facility] BUN/Creatinine Ratio 26(H) 7 - 23 07/01/2025 7:54 PM [facility] Osmolality Calculated 297(H) 275 - 295 mOsm/kg 07/01/2025 7:54 PM [facility] Albumin/Globulin Ratio 0.5(L) 1.1 - 2.3 07/01/2025 7:54 PM [facility] eGFR by CKD-EPI 43(L) >=90 mL/min/1.7 3 m2 07/01/2025 7:54 PM [facility] Comment:Estimated Glomerular Filtration Rate (eGFR) calculated using the CKD-EPI Creatinine Equation (2020), per the National Kidney Foundation and [place] [employer] Neph[employer] recommendations. 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
--- OUTSIDE RECORDS SUMMARY | 2025-07-20 19:41 | XMS_ITS | Data Portability ---
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 Discussed evaluation and treatment options including risks and benefits with patient, and patient expressed understanding. The following interventions were recommended: heart healthy low-fat, low-sodium diet, continue regular exercise, maintain appropriate weight, continue current medications, and medical follow-up as noted. [email or web address] Not available 06/26/2020 17:23:26 Plan of Treatment Reminders Order Date Submit Date Provider Last Modified By Organization Details Last Modified Time Details Appointments None recorded. Lab None recorded. Referral None recorded. Procedures None recorded. Surgeries None recorded. Imaging None recorded. Medication Orders atorvastat in 80 mg tablet 2021 022 [facility] #[id number], [address], [id number], 16:02:39 carvedilol 25 mg tablet 2021 022 [facility] #[id number], [address], [id number], 16:02:40 furosemide 40 mg tablet [address] [facility] #96091, [address], [place], [id number], 2 16:02:42 losartan 100 mg tablet [address] [facility] #89160, [address], [place], [id number], 2 16:02:42 magnesium oxide 400 mg (241.3 mg magnesium) tablet [address] [facility] #45124, [address], [place], [id number], 2 16:02:38 spironolac tone 25 mg tablet [address] [facility] #98872, [address], [place], [id number], 2 16:02:39 Xarelto 15 mg tablet [address] [facility] #49510, [address] [place], [place], [id number], 2 16:02:38 Xarelto 15 mg tablet 2019 [facility] #87733, [address], [place], [id number], 0 12:02:42 atorvastat in 80 mg tablet 2019 [facility] #81602, [address], [place], [id number], 0 12:04:37 carvedilol 25 mg tablet 2019 [facility] #93595, [address], [place], [id number], 0 12:02:48 furosemide 40 mg tablet 2019 [facility] #06627, [address], [place], [id number], 0 12:03:27 magnesium oxide 400 mg (241.3 mg magnesium) tablet 2019 [facility] #67437, [address], [place], [id number], 0 12:03:31 losartan 100 mg tablet 2019 [facility] #00988, [address], [place], [id number], 0 12:03:33 spironolac tone 25 mg tablet 2019 [facility] #71427, [address], [place], [id number], 0 12:04:37 Patient TargetsNo targets recorded. Patient Instructions Encounter Date Encounter Id Patient Instructions Last Modified By Organization Details Last Modified Time 06/27/2020 [id number] elevated blood pressure: care instructions [email or web address] Not [...] pressure [email or web address] Not available 06/27/2020 12:02:36 01/16/2021 [id number] sleep apnea: car e instructions [email or web address] Not available 01/16/2021 14:33:47 dizziness: care instructions [email or web address] Not available 01/16/2021 14:33:47 When You Want to Lose Weight: Care Instructions [email or web address] Not available 01/16/2021 14:33:48 atrial fibrillation: care instructions [email or web address] Not available 01/16/2021 14:33:48 high blood pressure: care instructions Not available 01/16/2021 14:33:48 learning about high blood pressure [email or web address] Not available 01/16/2021 14:33:48 Exercise advised Low cholesterol diet advised Low sodium diet advised [email or web address] Not available 01/16/2021 14:33:08 Scribed by Luann Guillory [facility] [email or web address] Not available 01/16/2021 14:33:11 08/14/2021 [id number] sleep apnea: car e instructions [email or web address] Not [...] Name and Address Organization Details Recorded Time History of hyperten nasima 193063938 Active 2013 Ashwin Awank[place]a [place], [place] - [facility] 6 12:34:34 Atrial fibrilla tion 69090386 Active 2013 Ashwin García [place], [place] - [facility] 6 12:35:21 Pulmonar y embolism 10566580 Active 2015 Initially diagnosed in 2001 ,He was in cou[place] Ashwin [place] - [facility] 6 12:36:45 Congesti ve heart failure 14041038 Completed 201512/03/2015 Steven [place] - [facility] 6 12:23:19 Obstruct ester sleep apnea syndrome 78252232 Active 2015 on CPAP Lynn [place] [facility] 3 17:52:12 History of deep vein thrombos is 320479244 Active 2015 Initially in 2001,2002 Lvmargarita [place], [place] - [facility] 6 12:39:30 Morbid obesity 274072188 Active 2015 for the last 10 years 195-230 Ibs till he was 43 then he gained to more than 300 Ibs Lvmargarita García [place] [facility] 6 12:43:24 Gastroes ophageal reflux disease 366167082 Active 2015 Ashwin [place] [facility] 6 12:42:09 [facility] hyperten nasima 33183675 Active 2016 [place] [facility] 3 17:51:49 Dizzines s 533785976 Active 2017 [place] [facility] 8 15:06:32 Kidney disease 33343034 Active 2017 [place] [facility] 8 16:43:48 Chronic kidney disease 853674349 Active 2020 Bailey [place] [facility] 17:51:45 Anemia 649530677 Active 2020 [place] [facility] 15:16:19 Anxiety 30273303 Active 2020 [place] [facility] 15:16:27 Hyperlip idemia 65590077 Active 2020 [place] [facility] 17:51:51 Hypothyr oidism 99427556 Active 2020 [place] [facility] 17:51:55 Osteoart hritis 429283375 Active 2020 Bailey [place] [facility] 15:17:24 Problem Notes None recorded. Medical Equipment None Reported. Allergies Allergen ID Allergen Name Allergen Category Reaction Reaction Severity Criticality Documentation Date Start Date Code Code System Note Provider Name and Address Organization Details Recorded Time 10992 bacitraci n medicatio n Not available Not available Not available 07/09/2021 1291 RxNorm Bailey [place] - [facility] 15:17:49 38814 neomycin medicatio n Not available Not available Not available 07/09/2021 7299 RxNorm Bailey [place] [facility] 15:17:59 40797 polymyxin B medicatio n Not available Not available Not available 07/09/2021 8536 RxNorm Bailey [place] [facility] 15:18:10 14923 propylene glycol medicatio n Not available Not available Not available 07/09/2021 09152 RxNorm Bailey [place] [facility] 15:18:32 Medications Name Sig Start Date Stop Date Status Note LastModified by Organization Details LastModified Time xarelto no dispense - new NO DISPENSE 08/14 completed Not Available Not Available Not Available losartan potassium 50 mg tabs 09/06 completed Not Available Not Available Not Available atorvastat in calcium 80 mg tabs 12/20 [...] 12/21/19 Not Available Not Available Not Available losartan [...] Vitals Date Recorded Body height Heart rate Oxygen saturation Body mass index (BMI) Body weight Systolic And Diastolic Provider Name and Address Organization Details Last Updated DateTime 1 182.88 cm 80 /min 91 % 51.5 kg/m2 802281. 1 g 125/79 mm[Hg] CURT KHOURY [facility] 1 14:04:09 Date Recorded Body height Body mass index (BMI) Body weight Heart rate Oxygen saturation Systolic And Diastolic Provider Name and Address Organization Details Last Updated DateTime 2 182.88 cm 47.1 kg/m2 341313. 55 g 83 /min 93 % 136/64 mm[Hg] Bobbi Greene [facility] 2 15:26:34 Date Recorded Body height Heart rate Systolic And Diastolic Provider Name and Address Organization Details Last Updated DateTime 06/27/2020 182.88 cm 71 /min 127/89 mm[Hg] Ema Bran [facility] 06/27/2020 11:18:22 Date Recorded Body height Body mass index (BMI) Body weight Oxygen saturation Heart rate Systolic And Diastolic Provider Name and Address Organization Details Last Updated DateTime 2 182.88 cm 51.5 kg/m2 101710. 1 g 93 % 103 /min 132/86 mm[Hg] SCOTT LUNA [facility] 2 16:02:12 Date Recorded Body height Body mass index (BMI) Body weight Heart rate Oxygen saturation Systolic And Diastolic Provider Name and Address Organization Details Last Updated DateTime 1 182.88 cm 48.8 kg/m2 603958. 25 g 77 /min 95 % 140/80 mm[Hg] Vanessa Sousa [facility] 1 15:33:00 Social History Question Answer Notes LastModified by Organizat ion Details LastModified Time Tobacco Smoking Status Never Smoker Lynn choudhary [facility] 12/01/2015 20:25:14 Do You Have An Advance Directive? Yes [email or web address] Information not available 12/03/2015 What Type Of Diet Are You Following? REGULAR [email or web address] Information not available 12/03/2015 What Was The Date Of Your Most Recent Tobacco Screening? 07/07/2018 Information n ot available 03/23/2019 How Much Tobacco Do You Smoke? No Information not available 09/26/2019 General Stress Level Medium [email or web address] Information not available 12/03/2015 How Many Years Have You Smoked Tobacco? 0 Information not available 06/02/2017 Sex: Unknown Functional Status Question Answer Note LastModified by Organizat ion Details LastModified Time Do you use any illicit or recreational drugs? No Information not available 07/09/2021 What is your level of alcohol consumption? Occasional Information not available 12/01/2015 Do you or have you ever used smokeless tobacco? Never used smokeless tobacco Information not available 09/26/2019 Do you or have you ever used e-cigarettes or vape? Never used electronic cigarettes Information not available 09/26/2019 What is your exercise level? None [email or web address] Information not available 12/03/2015 Mental Status None recorded. Family History Relationship Description Onset Age of this Age Resolved Age Notes LastModified by Organization Details LastModified Time Mother Congestive heart failure [email or web address] Not available 2015 20:24:26 Mother Malignant neoplasm of thyroid gland [email or web address] Not available 2020 [...] Diagnosis SNOMED-CT Code Diagnosis ICD10 Code Diagnosis IMO Codes Diagnosis Note 269 MD Lilliam Fernandez Office [address] [place] [address] 12/03/2015 11:12:59 12/03/2015 12:06:15 Atrial fibrillation 65646264 I48.91 History of hypertension 218793973 Z86.79 Patient's blood pressure is not well-contr olled on present medical therapy. Patient is tolerating , without difficulty , the current medication s. I have made the following changes to the current regimen: Increase Carvedilol to 12.5 BID.Patien t is advised to maintain a blood pressure diary.Rece nt ECHO showed normal LV systolic function 9EF > 55%) and mild pulmonary HTN. Pt does have moderate LAE. History of deep vein thrombosis 183891309 Z86.718 cont Xarelto Morbid obesity 784430703 E66.01 Pt was referred for gastric bypass surgery and awaits insurance approval for that reason. Will request copy of lipid panel and BMP from . According to pt his HgbA1C was normal. Obstructiv e sleep apnea syndrome 78148699 G47.33 on CPAP Pulmonary embolism 60241 003 I26.99 At [facility] risk for cardiovascular event 924812132 Z78.9 Essential hypertension 67815473 I10 4586 Steven Perez MD [facility] [address] [place] [address] 05/18/2016 11:15:07 05/19/2016 12:53:44 Atrial fibrillation 66045416 I48.91 Discussed diagnosis of atrial fibrillati on, [...] risks reviewed with patient. History of hypertension 506516510 Z86.79 Patient's blood pressure is somewhat well-contr olled on present medical therapy. Patient is tolerating , without difficulty , the current medication s. I have not made changes to the current regimen: Patient is advised to maintain a blood pressure diary.Rece nt ECHO showed normal LV systolic function EF > 55% and mild pulmonary HTN. Pt does have moderate LAE. History of deep vein thrombosis 350886248 Z86.718 Continue Xarelto. Morbid obesity 945931148 E66.01 Pt was referred for gastric bypass surgery and awaits insurance approval for that reason. Will request copy of lipid panel and BMP from . According to pt his HgbA1C was normal. Obstructiv e sleep apnea syndrome 95844186 G47.33 on CPAP. continue. Pulmonary embolism 26280 003 I26.99 On Xarelto. 6650 Steven Perez MD [facility] [address] [place] [address] 07/20/2016 11:11:58 07/21/2016 09:41:49 History of hypertension 274025711 Z86.79 Patient's blood pressure is not well-contr olled on present medical therapy. Patient is tolerating , without difficulty , the current medication s. I have made the following changes to the current regimen: Increase Coreg to 25 BIB.Patien t is advised to maintain a blood pressure diary.Last ECHO showed normal LV systolic function EF > 55% and mild pulmonary HTN. Pt does have moderate LAE.Will arrange for BP machine. Pulmonary embolism 37585 003 I26.99 On Xarelto. Obstructiv e sleep apnea syndrome 16881934 G47.33 on CPAP. continue. Morbid obesity 838244847 E66.01 Pt was referred for gastric bypass [...] with patient. History of deep vein thrombosis 350473650 Z86.718 Continue Xarelto. Essential hypertension 72979516 I10 9917 Juan Daniel Kelsey MD [facility] [address] [place] [address] 11/05/2016 14:57:19 11/06/2016 12:50:13 Atrial fibrillation 99754184 I48.91 Discussed diagnosis of atrial fibrillati on, [...] risks reviewed with patient. History of hypertension 777580123 Z86.79 Patient's blood pressure is relatively well-contr olled on present medical therapy. Patient is tolerating , without difficulty , the current medication s. I have not made changes to the current regimen: Patient is advised to maintain a blood pressure diary.Last ECHO showed normal LV systolic function EF > 55% and mild pulmonary HTN. Pt does have moderate LAE.Will arrange for BP machine. ECHO before next appt History of deep vein thrombosis 136973273 Z86.718 Continue Xarelto. Morbid obesity 497565712 E66.01 Pt was referred for gastric bypass surgery and awaits insurance approval for that reason. his HgbA1C was normal. Obstructiv e sleep apnea syndrome 90200579 G47.33 on CPAP. will refer for pulmonary evaluation Pulmonary embolism 83247 003 I26.99 On Xarelto. 82088 Juan Daniel Kelsey MD [facility] [address] [place] [address] 06/03/2017 16:10:19 06/03/2017 17:02:55 Atrial fibrillation 46112407 I48.91 Discussed diagnosis of atrial fibrillati on, [...] risks reviewed with patient. History of hypertension 682875699 Z86.79 Patient's blood pressure is relatively well-contr olled on present medical therapy. Patient is tolerating , without difficulty , the current medication s. I have not made changes to the current regimen: Patient is advised to maintain a blood pressure diary. ECHO showed normal LV systolic function and diastolic dysfunctio n.Add Metolazone 2.5 mg PRN History of deep vein thrombosis 241972937 Z86.718 Continue Xarelto. Morbid obesity 208570050 E66.01 Pt was referred for gastric bypass surgery and awaits insurance approval for that reason. his HgbA1C was normal. Obstructiv e sleep apnea syndrome 30815816 G47.33 on CPAP. will refer for pulmonary evaluation Pulmonary embolism 41997 003 I26.99 On Xarelto. Essential hypertension 10516107 I10 83595 Steven Perez MD [facility] [place] [address] 10/28/2017 16:54:47 10/29/2017 13:21:20 Essential hypertension 21345330 I10 Patient's blood pressure is relatively well-contr [...] with patient. History of deep vein thrombosis 893942864 Z86.718 Continue Xarelto. Morbid obesity 950210639 E66.01 Still considerin g Gastric bypass surgery Obstructiv e sleep apnea syndrome 93426862 G47.33 on CPAP. will refer for pulmonary evaluation Pulmonary embolism 59956 003 I26.99 On Xarelto. 57785 Steven Perez MD [facility] [address] [place] [address] 02/03/2018 13:49:22 02/04/2018 11:53:57 Essential hypertension 02515619 I10 Patient's blood pressure is relatively well-contr [...] with patient. History of deep vein thrombosis 729526412 Z86.718 Continue Xarelto. Morbid obesity 183517453 E66.01 Still considerin g Gastric bypass surgery Obstructiv e sleep apnea syndrome 83914321 G47.33 on CPAP. will refer for pulmonary evaluation Pulmonary embolism 11361 003 I26.99 On Xarelto. Dizziness 335029853 R42 probably due to dehydratio n and use of diuretics. Pt had diarrhea.w ill check lab results from outside facility.P t was advised to cut down diuretics especially when is hot outsidewil l check carotidsif symptoms not improve consider neurology evaluation 21378 Steven Perez MD [facility] [address] [place] [address] 03/10/2018 14:24:13 03/17/2018 15:02:56 Essential hypertension 49027946 I10 Patient's blood pressure is relatively well-contr [...] with patient. History of deep vein thrombosis 021621913 Z86.718 Continue Xarelto. Morbid obesity 912291839 E66.01 Still considerin g Gastric bypass surgery Obstructiv e sleep apnea syndrome 13311121 G47.33 on CPAP. will refer for pulmonary evaluation Pulmonary embolism 92037 003 I26.99 On Xarelto. Dizziness 031621570 R42 probably due to dehydratio n and use of diuretics. Pt had diarrhea.w ill check lab results from outside facility.P t was advised to cut down diuretics especially when is hot outsidewil l cut down Carvedilol . Previous Cr was mildly elevated (1.5). will review labs including chemistryc arotid US showed only minimal plaqueif symptoms not improve consider neurology evaluation 63177 Steven Perez MD [facility] [place] [address] 05/05/2018 15:03:46 05/05/2018 16:57:36 Essential hypertension 87362103 I10 Patient's blood pressure is relatively well-contr [...] 15 QD History of deep vein thrombosis 975657260 Z86.718 Continue Xarelto. Morbid obesity 693997034 E66.01 Still considerin g Gastric bypass surgery Obstructiv e sleep apnea syndrome 71143425 G47.33 on CPAP. will refer for pulmonary evaluation Pulmonary embolism 26695 003 I26.99 On Xarelto. Dizziness 374668831 R42 probably due to dehydratio n and use of diuretics. Pt had diarrhea.w ill check lab results from outside facility.P t was advised to cut down diuretics especially when is hot outsidewil l cut down Carvedilol . Previous Cr was mildly elevated (1.5). will review labs including chemistryc arotid US showed only minimal plaqueif symptoms not improve consider neurology evaluation Kidney disease 90568191 N08 recent Cr elevated (1.57). previous 2 yrs ago 1.1.If repeated still elevated consider nephrology evaluation Hypertensive disorder 38 510713 I10 74633 Steven Perez MD [facility] [place] [address] 07/07/2018 14:29:43 07/07/2018 15:41:03 Essential hypertension 83192388 I10 Patient's blood pressure is well-contr olled on present medical therapy. Patient is tolerating , without difficulty , the current medication s. I have not made changes to the current regimen. Patient is advised to maintain a blood pressure diary. Cont low Na diet. Atrial fibrillation 0814 8251 I48.91 Discussed diagnosis of atrial fibrillati on, [...] 15 QD History of deep vein thrombosis 109757181 Z86.718 Continue Xarelto. Morbid obesity 980153497 E66.01 Still considerin g Gastric bypass surgery Obstructiv e sleep apnea syndrome 57547661 G47.33 on CPAP. will refer for pulmonary evaluation Pulmonary embolism 59501 003 I26.99 On Xarelto. Dizziness 393313343 R42 resolved probably due to dehydratio n and use of diuretics and diarrhea. Pt was advised to cut down diuretics especially when is hot outside will cut down Carvedilol . Previous Cr was mildly elevated (1.5). will review labs including chemistryc arotid US showed only minimal plaqueif symptoms not improve consider neurology evaluation Kidney disease 07905885 N08 recent Cr elevated (1.57). previous 2 yrs ago 1.1.If repeated still elevated consider nephrology evaluation Hypertensive disorder 38 772685 I10 resolved [id number] Steven Perez MD [facility] [address] [place] [address] 03/09/2019 16:59:48 03/09/2019 18:10:50 Essential hypertension 64052645 I10 Patient's blood pressure is well-contr olled on present medical therapy. Patient is tolerating , without difficulty , the current medication s. I have not made changes to the current regimen. Patient is advised to maintain a blood pressure diary. Cont low Na diet. Atrial fibrillation 7797 2993 I48.91 Discussed diagnosis of atrial fibrillati on, [...] 15 QD History of deep vein thrombosis 483154083 Z86.718 Continue Xarelto. Morbid obesity 732822000 E66.01 Still considerin g Gastric bypass surgery Obstructiv e sleep apnea syndrome 25155364 G47.33 on CPAP. will refer for pulmonary evaluation Pulmonary embolism 41228 003 I26.99 On Xarelto. Dizziness 693460214 R42 resolved probably due to dehydratio n and use of diuretics and diarrhea. Pt was advised to cut down diuretics especially when is hot outside will cut down Carvedilol . Previous Cr was mildly elevated (1.5). will review labs including chemistryc arotid US showed only minimal plaqueif symptoms not improve consider neurology evaluation Kidney disease 85850233 N08 recent Cr elevated (1.57). previous 2 yrs ago 1.1.If repeated still elevated consider nephrology evaluation Hypertensive disorder 38 063334 I10 resolved 53436 Steven Perez MD [facility] [address] [place] [address] 09/28/2019 11:41:28 09/28/2019 13:15:17 Essential hypertension 16900015 I10 Patient's blood pressure is well-contr olled on present medical therapy. Patient is tolerating , without difficulty , the current medication s. I have not made changes to the current regimen. Patient is advised to maintain a blood pressure diary. Cont low Na diet. Atrial fibrillation 4943 6004 I48.91 Discussed diagnosis [...] 15 QD History of deep vein thrombosis 696596705 Z86.718 Continue Xarelto. Morbid obesity 482991532 E66.01 Still considerin g Gastric bypass surgery Obstructiv e sleep apnea syndrome 01601131 G47.33 on CPAP. will refer for pulmonary evaluation Pulmonary embolism 89729 003 I26.99 On Xarelto. Dizziness 998923139 R42 resolved probably due to dehydratio n and use of diuretics and diarrhea. Pt was advised to cut down diuretics especially when is hot outside will cut down Carvedilol . Previous Cr was mildly elevated (1.5). will review labs including chemistryc arotid US showed only minimal plaqueif symptoms not improve consider neurology evaluation Kidney disease 43864922 N08 recent Cr elevated (1.57). previous 2 yrs ago 1.1.If repeated still elevated consider nephrology evaluation Hypertensive disorder 38 704950 I10 Patient's blood pressure is relatively well-contr olled on present medical therapy. Patient is tolerating , without difficulty , the current medication s. I have not made changes to the current regimen. Patient is advised to maintain a blood pressure diary. Cont low Na diet. 56521 Steven Perez MD [facility] [address] [place] [address] 12/21/2019 10:03:42 12/21/2019 11:14:07 Essential hypertension 54410935 I10 Patient's blood pressure is well-contr olled on present medical therapy. Patient is tolerating , without difficulty , the current medication s. I have not made changes to the current regimen. Patient is advised to maintain a blood pressure diary. Cont low Na diet. Atrial fibrillation 9458 4351 I48.91 Discussed diagnosis of atrial fibrillati on, [...] Holter, ECHO History of deep vein thrombosis 594273564 Z86.718 Continue Xarelto. Morbid obesity 216113462 E66.01 Still considerin g Gastric bypass surgery Obstructiv e sleep apnea syndrome 56821402 G47.33 on CPAP. pulmonary fu Pulmonary embolism 82688 003 I26.99 On Xarelto. Dizziness 810943665 R42 resolved probably due to dehydratio n and use of diuretics and diarrhea. Pt was advised to cut down diuretics especially when is hot outside will cut down Carvedilol . Previous Cr was mildly elevated (1.5). will review labs including chemistryc arotid US showed only minimal plaqueif symptoms not improve consider neurology evaluation Kidney disease 75561920 N08 recent Cr improved (1.22), previous elevated (1.57). previous 2 yrs ago 1.1.If deteriorat es consider nephrology evaluation Hypertensive disorder 38 393375 I10 Patient's blood pressure is well-contr olled on present medical therapy. Patient is tolerating , without difficulty , the current medication s. I have not made changes to the current regimen. Patient is advised to maintain a blood pressure diary. Cont low Na diet.ECHO showed normal LV systolic function and diastolic dysfunctio n. 36683 Steven Perez MD [facility] [address] [place] [address] 06/27/2020 11:11:03 06/27/2020 12:04:28 Essential hypertension 12943610 I10 Patient's blood pressure is well-contr olled on present medical therapy. Patient is tolerating , without difficulty , the current medication s. I have not made changes to the current regimen. Patient is advised to maintain a blood pressure diary. Cont low Na diet. Atrial fibrillation 4943 6004 I48.91 Discussed diagnosis [...] Holter, ECHO History of deep vein thrombosis 022952198 Z86.718 Continue Xarelto. Morbid obesity 211576302 E66.01 Still considerin g Gastric bypass surgery Obstructiv e sleep apnea syndrome 00673222 G47.33 on CPAP. pulmonary fu Pulmonary embolism 52201 003 I26.99 On Xarelto. Dizziness 041669405 R42 resolved probably due to dehydratio n and use of diuretics and diarrhea. Pt was advised to cut down diuretics especially when is hot outside will cut down Carvedilol . Previous Cr was mildly elevated (1.5). will review labs including chemistryc arotid US showed only minimal plaqueif symptoms not improve consider neurology evaluation Kidney disease 25289540 N08 recent Cr improved (1.22), previous elevated (1.57). previous 2 yrs ago 1.1.If deteriorat es consider nephrology evaluation Hypertensive disorder 38 899210 I10 Patient's blood pressure is well-contr olled on present medical therapy. Patient is tolerating , without difficulty , the current medication s. I have not made changes to the current regimen. Patient is advised to maintain a blood pressure diary. Cont low Na diet.ECHO showed normal LV systolic function and diastolic dysfunctio n. 46145 Steven Perez MD [facility] [address] [place] [address] 01/16/2021 14:01:33 01/16/2021 14:33:57 Essential hypertension 67032535 I10 Patient's blood pressure is well-contr olled on present medical therapy. Patient is tolerating , without difficulty , the current medication s. I have not made changes to the current regimen. Patient is advised to maintain a blood pressure diary. Patient was advised to eat a low-sodium diet (2 grams sodium or less daily). Atrial fibrillation 4943 6004 I48.91 Discussed diagnosis of atrial fibrillati on, including pathophysi ology and prognosis. Discussed importance of controllin g blood pressure, exercising regularly, and minimizing alcohol, caffeine, and decongesta nts. Advised patient to seek medical attention for palpitatio ns, chest pain, dizziness or syncope, shortness of breath, or any other new or concerning symptoms. Patient's [id number] Sc score and unadjusted yearly stroke risk is The patient needs anticoagul ation. Patient is to be on and for rate control they will need and patient was advised to take medication as prescribed . Fall precaution s reviewed. Stroke and bleeding risks reviewed with patient. Due to kidney dysfunctio n will cont Xarelto 15 QD, Holter, ECHO History of deep vein thrombosis 533071355 Z86.718 on Xarelto Morbid obesity 378247131 E66.01 20 lb weight loss recommende d over the next 2 months Obstructiv e sleep apnea syndrome 85029593 G47.33 Compliant with nightly CPAP use Recommend restablish ing pulmonary Pulmonary embolism 68297 003 I26.99 on Xarelto Dizziness 847225060 R42 resolved Probably due to dehydratio n and use of diuretics and diarrhea. Advised to cut down diuretics especially when is hot outside Carotid US showed only minimal plaque Kidney disease 19270928 N08 Recent Cr 2.2 Recommend nephrology referral 35240 Steven Perez MD [facility] [address] [place] [address] 08/14/2021 15:19:17 08/14/2021 15:48:02 Essential hypertension 35492984 I10 Patient's blood pressure is well-contr olled on present medical therapy. Patient is tolerating , without difficulty , the current medication s. I have not made changes to the current regimen. Patient is advised to maintain a blood pressure diary. Patient was advised to eat a low-sodium diet (2 grams sodium or less daily). Atrial fibrillation 2980 9441 I48.91 Discussed diagnosis of atrial fibrillati on, including pathophysi ology and prognosis. Discussed importance of controllin g blood pressure, exercising regularly, and minimizing alcohol, caffeine, and decongesta nts. Advised patient to seek medical attention for palpitatio ns, chest pain, dizziness or syncope, shortness of breath, or any other new or concerning symptoms. Patient's [id number] Sc score and unadjusted yearly stroke risk is The patient needs anticoagul ation. Patient is to be on and for rate control they will need and patient was advised to take medication as prescribed . Fall precaution s reviewed. Stroke and bleeding risks reviewed with patient. Due to kidney dysfunctio n will cont Xarelto 15 QD, ECHO at next appt History of deep vein thrombosis 884412784 Z86.718 on Xarelto Morbid obesity 857871156 E66.01 20 lb weight loss recommende d over the next 2 months Obstructiv e sleep apnea syndrome 73370156 G47.33 Compliant with nightly CPAP use Recommend restablish ing pulmonary Pulmonary embolism 88249 003 I26.99 on Xarelto Dizziness 634675125 R42 resolved Probably due to dehydratio n and use of diuretics and diarrhea. Advised to cut down diuretics especially when is hot outside Carotid US showed only minimal plaque Kidney disease 80773327 N08 Recent Cr 2[place]2 [place] [address] Steven Perez MD [facility] [address] [place] [address] 02/12/2022 15:08:25 02/12/2022 15:40:40 Essential hypertension 62329564 I10 Patient's blood pressure is well-contr olled on present medical therapy. Patient is tolerating , without difficulty , the current medication s. I have not made changes to the current regimen. Patient is advised to maintain a blood pressure diary. Patient was advised to eat a low-sodium diet (2 grams sodium or less daily). Atrial fibrillation 4943 6004 I48.91 Discussed diagnosis of atrial fibrillati on, including pathophysi ology and prognosis. Discussed importance of controllin g blood pressure, exercising regularly, and minimizing alcohol, caffeine, and decongesta nts. Advised patient to seek medical attention for palpitatio ns, chest pain, dizziness or syncope, shortness of breath, or any other new or concerning symptoms. Patient's [id number] Sc score and unadjusted yearly stroke risk is The patient needs anticoagul ation. Patient is to be on and for rate control they will need and patient was advised to take medication as prescribed . Fall precaution s reviewed. Stroke and bleeding risks reviewed with patient. Due to kidney dysfunctio n will cont Xarelto 15 QD, ECHO at next appt History of deep vein thrombosis 703269037 Z86.718 on Xarelto Morbid obesity 693538839 E66.01 20 lb weight loss recommende d over the next 2 months Obstructiv e sleep apnea syndrome 30356776 G47.33 Compliant with nightly CPAP use Recommend restablish ing pulmonary Pulmonary embolism 71676 003 I26.99 on Xarelto Dizziness 520934142 R42 resolved Probably due to dehydratio n and use of diuretics and diarrhea. Advised to cut down diuretics especially when is hot outside Carotid US showed only minimal plaque Kidney disease 32975709 N08 Recent Cr 1.21 [place] [address] Juan Daniel Kelsey MD [facility] [address] [place] [address] 08/13/2022 15:40:45 08/13/2022 16:44:17 Essential hypertension 63807252 I10 Now well controlled Atrial fibrillation 4943 6004 I48.91 Discussed diagnosis of atrial fibrillati on, including pathophysi ology and prognosis. Discussed importance of controllin g blood pressure, exercising regularly, and minimizing alcohol, caffeine, and decongesta nts. Advised patient to seek medical attention for palpitatio ns, chest pain, dizziness or syncope, shortness of breath, or any other new or concerning symptoms. Patient's NFU9ZG3-FU Sc score and unadjusted yearly stroke risk is The patient needs anticoagul ation. Patient is to be on and for rate control they will need and patient was advised to take medication as prescribed . Fall precaution s reviewed. Stroke and bleeding risks reviewed with patient. Due to kidney dysfunctio n will cont Xarelto 15 QD, ECHO at next appt History of deep vein thrombosis 932067063 Z86.718 on Xarelto Morbid obesity 267602109 E66.01 20 lb weight loss recommende d over the next 2 months Obstructiv e sleep apnea syndrome 65767629 G47.33 Compliant with nightly CPAP use Recommend re establishi ng pulmonary Pulmonary embolism 64289 003 I26.99 on Xarelto Dizziness 012487444 R42 resolved Probably due to dehydratio n and use of diuretics and diarrhea. Advised to cut down diuretics especially when is hot outside Carotid US showed only minimal plaque Kidney disease 10548248 N08 Recent Cr 1.21 nephrology fu Chronic sy stolic heart failure 037895736 I50.22 resume Lasix at 40 qd Health Concerns Section Related Observation LastModified by Organization Detai ls LastModified Time None Recorded Concern Status LastModified by Organization Details LastModified Time None Recorded Advance Directives Directive Y: Payers Insurance Date Sequence Insurance Name Policy Number Policy Parikh Covered Member ID Parikh Member ID Guarantor Name 08/11/2022 2 [employer] [facility] (MEDICAID HMO) Omar Baldwin [id number] 08/11/2022 3 [place] Omar Baldwin [id number] 03/21/2025 1 [facility] (MEDICARE REPLACEMENT/A DVANTAGE - HMO) [id number] Omar Baldwin [id number] 08/11/2022 2 [place] [facility] Omar Baldwin [id number] 08/11/2022 1 [facility] (MEDICAID HMO) Omar Baldwin [id number] 08/11/2022 1 [place] Baldwin [id number] 08/11/2022 2 [place] [facility] Omar Baldwin [id number] Notes Date Note Type Note Provider Name and Address Organization Details Recorded Time 0 text/html Hospitalization Contact RecordReported by Patient Atrial FibrillationReported by Patient 06/27/20 CC: Atrial fibrillation fu HPI; 59 [...] yr by his PC.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 Atrial fibrillation. Steven choudhary, [place] - [facility] 06/27/2020 12:04:25 1 text/html Hospitalization Contact RecordReported by Patient Atrial FibrillationReported by Patient 01/16/2021 Due to the [facility] viera virus mandated precautions for at risk [...] by his PCP. 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 Continues to wear CPAP at night. He is traveling to [facility] in February 2021 for his daughter's [...] estimated RV systolic pressure. Atrial fibrillation. Luann Guillory [facility] 01/16/2021 14:33:53 1 text/html Hospitalization Contact RecordReported by Patient Atrial FibrillationReported by Patient 08/14/21CC : Cardiac follow upHPI: 60-year-old white male with history [...] by his PCP. 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 Continues to wear CPAP at night. He is traveling to [facility] in February 2021 for his daughter's [...] RV systolic pressure. Atrial fibrillation. Steven choudhary [place] - [facility] 08/14/2021 16:34:39 2 text/html Hospitalization Contact RecordReported by Patient Atrial FibrillationReported by Patient 02/12/22CC : Cardiac follow upHPI: [id number] white male with history of HTN, HL, [...] on 11/07/19 .Pt takes atorvastatin 80 mg. Previously :He [...] by his PCP. 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 Continues to wear CPAP at night. He is traveling to [facility] in February 2021 for his daughter's [...] RV systolic pressure. Atrial fibrillation. Steven Perez [place], [place] - [facility] 02/12/2022 16:02:36 2 text/html Hospitalization Contact RecordReported by Patient Atrial FibrillationReported by Patient 08/13/22CC : Cardiac follow upHPI: [id number] white male with history of HTN, HL, [...] done on 10/08/21.Pt takes atorvastatin 80 mg. Previously:occasionally some palpitationsFeels much better since started to [...] by his PCP. 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 Continues to wear CPAP at night. He is traveling to [facility] in February 2021 for his daughter's [...] pressure. Atrial fibrillation. Juan Daniel Kelsey MD [address] [place], [address], [facility] - [facility] 08/13/2022 16:40:16
--- OUTSIDE RECORDS SUMMARY | 2025-07-20 19:42 | XMS_ITS | Clinical Summary ---
Author Organization [facility] Address [address] [place] [address] Phone Care Team Providers Care Social Studies Department Chair Name Role Phone Julisa Clemens MD Primary Care Provider Allergies Active Allergy Reactions Criticality Noted Date Comments Bacitracin 06/18/2021 Neomycin 06/18/2021 Polymyxin B 06/18/2021 Propylene Glycol 01/18/2017 Medications atorvastatin (LIPITOR) 80 MG tablet 1 (one) [...] Atrial fibrillation 06/29/2014 H/O: hypertension 06/29/2014 Immunizations Immunization Administration Dates Next Due Sars-cov-2, Unspecified 11/17/2020 [...] at Not on file Legal Sex Male 9:30 AM MDT Gender Identity Not on file Sexual Orientation Not on file Last Filed Vital Signs Vital Sign Reading Time Taken Comments Blood Pressure 136/76 06/08/2022 2:25 PM CDT Pulse - - Temperature 35.9 C (96.6 F) 06/08/2022 2:25 PM CDT Respiratory Rate 18 06/08/2022 2:25 PM CDT Oxygen Saturation - - Inhaled Oxygen Concentration - - Weight 168 kg (370 lb) 06/08/2022 2:25 PM CDT Height 182.9 cm (6') 06/08/2022 2:25 PM CDT Body Mass Index 50.18 06/08/2022 2:25 PM CDT Plan of Treatment Health Maintenance Due Date Last Done Comments Pneumococcal PPSV23/PCV13 65 + Years / Low and Medium Risk (1 of 2 - PCV) 2008 Influenza Vaccine (#1) 2025 Insurance [facility] MEDICARE ADVANTAGE Member Subscriber Plan / Payer (Ef fective 2020-Present) Name:Omar Baldwin Member ID:[id number] HMO Relation to Subscriber:Self Name:Omar Baldwin Subscriber ID:[id number] HMO Payer ID:[id number] Type:Not on file Address: [facility] [facility] [address] [place] [address] Care Teams Social Studies Department Chair Relationship Specialty Start Date End Date Julisa Clemens MD [address] [place] [address] PCP - General Internal Medicine 06/04/21
[2025-07-20 20:52] LABS: Hematocrit 28.1 % (42.0-52.0); Hemoglobin 8.9 g/dL (14.0-18.0); Immature Granulocyte Percent A 0.3 % (0-0.5); Lymphocytes Absolute Auto 1.26 K/mm3 (0.9-3.2); Mean Corpuscular HGB Conc 31.7 g/dl (32-36); Mean Corpuscular Hemoglobin 31.4 pg (26-34); Mean Corpuscular Volume 99.3 fl (80-100); Nucleated Red Blood Cells Absolute Auto 0.000 K/mm3 (0.0-0.012); Nucleated Red Blood Cells Perc 0.0 % (0.0-0.2); Platelet Count Result 326 k/mm3 (150-375); Red Blood Count 2.83 M/mm3 (4.6-6.20); White Blood Count 5.8 K/mm3 (4.5-10.0)
[2025-07-20 21:05] LABS: Anion Gap 3 mmol/L (4-12); Blood Urea Nitrogen 25 mg/dL (9-20); Calcium 8.7 mg/dL (8.4-10.2); Carbon Dioxide 33 mmol/L (22-30); Chloride 96 mmol/L (98-107); Estimated Glomerular Filt Rate > 60; Glucose 115 mg/dL (65-110); Potassium 3.9 mmol/L (3.4-5.0); Sodium 132 mmol/L (137-145)
--- NOTE | 2025-07-20 21:18 | WPCEDHO ---
ED Hand Off Checklist All vitals saved:yes IV Site documented:yes All med administrations documented:yes Triage Note Triage Note Patient ERICA, coming from 07/20/25 19:08 [facility]. Patient just got to facility from [facility]. Patient had abdominal surgery in June, a wound vac was placed early June, antibiotics ended yesterday. When patient arrived to [facility], the staff did not have the right supplies for wound vac so they removed wound vac and placed dressing over abdominal wound. 2L NC, 96%, 144/ 54, 179 BG Allergies bacitracin Allergy (Unknown, Verified 07/01/25 12:06) Unknown neomycin Allergy (Unknown, Verified 07/01/25 12:06) Unknown polymyxin B Allergy (Unknown, Verified 07/01/25 12:06) Unknown Family History (Last Reviewed 07/20/25 @ 19:45 by Rafael Acosta MD) Father Leukemia Sibling Breast cancer Parkinson disease Father Cancer Mother Thyroid disorder Sibling Cancer Notes 07/20/25 21:17 Nurse Note by Lisa Trinidad Patient removed IV and refused IV to be placed again. Initialized on 07/20/25 21:17 - END OF NOTE Interventions/Assessments IV / Saline Lock, Insert Start: 07/20/25 18:56 Freq: Status: Active Protocol: Document 07/20/25 21:16 [facility] (Rec: 07/20/25 21:16 [facility] [id number]) IV Assessment Peripheral Access Right Wrist IV Catheter Access Discontinued Access Last Vital Signs Temperature 98 F 07/20/25 19:08 Pulse Rate 85 07/20/25 21:02 Respiratory Rate 16 07/20/25 21:02 Pulse Oximetry 95 07/20/25 21:15 Blood Pressure 142/65 H 07/20/25 21:02 Blood Pressure Mean 87 07/20/25 21:02 Oxygen Delivery Room Air 07/20/25 19:08 Weight 190 kg 07/20/25 19:08 Last Result - Abnormals Only RBC 2.83 M/mm3 (4.6-6.20) L 07/20/25 20:45 Hgb 8.9 g/dL (14.0-18.0) L D 07/20/25 20:45 Hct 28.1 % (42.0-52.0) L 07/20/25 20:45 MCHC 31.7 g/dl (32-36) L 07/20/25 20:45 RDW 15.6 % (11.5-14.5) H 07/20/25 20:45 MPV 10.9 fl (7.4-10.4) H 07/20/25 20:45 [place] % (Auto) 13.6 % (2.6-8.5) H 07/20/25 20:45 [place] # (Auto) 0.8 K/mm3 (0.1-0.6) H 07/20/25 20:45 Sodium 132 mmol/L (137-145) L 07/20/25 20:45 Chloride 96 mmol/L (98-107) L 07/20/25 20:45 Carbon Dioxide 33 mmol/L (22-30) H 07/20/25 20:45 Anion Gap 3 mmol/L (4-12) L 07/20/25 20:45 BUN 25 mg/dL (9-20) H D 07/20/25 20:45 Glucose 115 mg/dL (65-110) H 07/20/25 20:45 Most Recent Suicide Severity Rating Suicide Severity Rating NO RISK INDICATED 07/20/25 19:08
--- NOTE | 2025-07-20 22:18 | PC.NURSE ---
Addendum entered by Olga Camp RN 07/20/25 22:28: abdomen incision Addendum entered by Olga Camp RN 07/20/25 22:28: abdomen icision Original Note:
--- NOTE | 2025-07-20 23:23 | PM.IMHP ---
H&P: HPI History of Present Illness Date/Time: 07/20/25 23:23 Chief Complaint: Wound care issues Narrative: This is a 64-year-old patient who was had multiple hernia repairs and has COPD chronically on oxygen at 2 L per nasal cannula. The patient was just discharged from [facility] in the afternoon. The patient was transferred to [facility] rehab facility. However they had no supplies for his wound VAC. his wound VAC was removed and wet-to-dry dressings were initiated. The patient has a large wound from a recent infected hernia repair. He is asymptomatic and has completed his entire course of antibiotics. The patient and the family were not satisfied with the care they were receiving at the rehab facility and therefore the patient was transferred to the nearest hospital. His H&H is now 8.9 and 28.1 from his previous value of 07-24 that was 12.7 and 40.2. His sodium was found to be 132. His BUN is 25 however his baseline is 30 stool 40s typically. The ER provider did call [facility] to explain the situation and the surgeon stated that the patient can continue with wet-to-dry dressings for now. The patient is being admitted to observation status on the date of service some at 07/20/2025. Review of Systems Constitutional: Constitutional: Reports as per HPI and Reports no additional constitutional complaints Eyes: Eyes: Reports as per HPI and Reports no additional eye complaints ENT: Reports system reviewed and no additional complaints, except as documented and Reports Normal hearing present Cardiovascular: Cardiovascular: Reports no additional cardiovascular complaints Respiratory: Respiratory: Reports as per HPI and Reports no additional respiratory complaints Gastrointestinal: Gastrointestinal: Reports as per HPI and Reports no additional gastrointestinal complaints Musculoskeletal: Musculoskeletal: Reports no additional musculoskeletal complaints Integumentary/Breasts: Skin/Breast: Reports system reviewed and no additional complaints, except as docu Comments: The patient has he protector to bilateral heels. Pads were not removed from heels. Neurologic: Reports system reviewed and no additional complaints, except as documented and Reports Normal hearing present Psychiatric: Psychiatric: Reports no additional psychiatric complaints and Reports as per HPI Hematologic/Lymphatic: Hematologic/Lymphatic: Reports no additional hematologic/lymphatic complaints Allergic/Immunologic: Allergic/Immunologic: Reports no additional allergic/immunologic complaints [facility] Past Medical History Medical History (Updated 07/22/25 @ 21:27 by Alma Boggs APRN) Chronic anticoagulation Heart failure with preserved ejection fraction Chronic kidney disease, stage 3 Hypothyroidism History of venous thromboembolism Incisional hernia Dyslipidemia Hx of pulmonary embolus x3, taking Xarelto Hypertension Heart disease Follows with Dr Perez - [facility] Anxiety Arthritis History of deep venous thrombosis Current use of senior living anticoagulation Paroxysmal atrial fibrillation Gastroesophageal reflux disease Obstructive sleep apnea on CPAP Morbid obesity Chronic anemia Congestive heart failure Ejection fraction was about 30% on echocardiogram in April 2014. Surgical History Surgical History (Updated 07/21/25 @ 03:17 by Alma Boggs APRN) Hx of hernia repair 2007, 2009 History of sinus surgery History of ventral hernia repair x3. Family History Family History Father Leukemia Sibling Breast cancer Parkinson disease Father Cancer Mother Thyroid disorder Sibling Cancer Social History Social History (Updated 07/21/25 @ 03:11 by Alma Boggs APRN) Social History: The patient is . He lives home alone. He is retired. He has 3 children. Surrogate decision maker: Dennis Baldwin, son. Code status: Full code. Smoking status: Never smoker Second hand tobacco smoke exposure: No Alcohol intake: never Substance use: never Substance use type: does not use Do You Feel Safe in your Home?: Yes Lack of Transportation: No Lack of Food: Never True Current Housing: I Have Housing Concerned About Future Housing: No Difficulty Paying Gas/Electric Bills: No Difficulty Paying for Meds: No Currently Unemployed: No Education: High School Diploma/GED Difficulty w/ Childcare or Family Care: No Additional living arrangements comments: Lives in his own home in [place]. Occupation/Education: other Additional occupation/education comments: disabled Gender identity (if verbalized by the patient): Male Spiritual care concerns: No Meds Home Medications and Allergies Home Medications ?Medication ?Instructions ?Recorded ?Confirmed ?Type albuterol sulfate 90 mcg/actuation See Rx Instructions .Route 11/02/24 07/21/25 Rx aerosol inhaler .COMPLEX #8.5 grams spironolactone 25 mg tablet 12.5 mg (1/2 x 25 mg) PO DAILY #90 01/19/25 07/21/25 Rx tabs rivaroxaban 15 mg tablet (Xarelto) 15 mg PO DAILY #90 tabs 02/12/25 07/21/25 Rx atorvastatin 80 mg tablet 80 mg PO QHS #90 tabs 04/19/25 07/21/25 Rx furosemide 40 mg tablet 40 mg PO BID #180 tabs 05/01/25 07/21/25 Rx levothyroxine 25 mcg tablet 25 mcg PO DAILY #90 tabs 05/02/25 07/21/25 Rx acetylcysteine 200 mg/mL (20 %) 3 ml inhalation Q4H 07/21/25 07/21/25 History solution Allergies Allergy/AdvReac Type Severity Reaction Status Date / Time bacitracin Allergy Unknown Unknown Verified 07/20/25 22:47 neomycin Allergy Unknown Unknown Verified 07/20/25 22:47 polymyxin B Allergy Unknown Unknown Verified 07/20/25 22:47 Vital Signs Vital Signs - 24 hr 07/20/25 19:08 07/20/25 20:45 07/20/25 20:47 Temperature 98 F Pulse Rate 85 85 Respiratory Rate 20 16 Blood Pressure 142/61 H 121/63 Pulse Oximetry 95 94 96 Oxygen Delivery Room Air 07/20/25 21:00 07/20/25 21:02 07/20/25 21:15 Temperature Pulse Rate 85 Respiratory Rate 16 Blood Pressure 142/65 H Pulse Oximetry 96 95 95 Oxygen Delivery 07/20/25 21:17 07/20/25 21:30 07/20/25 21:32 Temperature Pulse Rate Respiratory Rate Blood Pressure 110/57 L 134/77 Pulse Oximetry 95 95 95 Oxygen Delivery 07/20/25 23:11 Temperature 97.5 F L Pulse Rate 92 Respiratory Rate 20 Blood Pressure 122/70 Pulse Oximetry 96 Oxygen Delivery Exam Const: General: cooperative, comfortable, no acute distress, well developed and awake Orientation/consciousness: oriented to person, oriented to place, oriented to time and patient oriented x3 Limitations: no limitations HENMT: Head: normal to inspection, No palpable skull fracture present, normocephalic, atraumatic and abrasion Ears: hearing grossly normal bilaterally Eyes: General: appearance normal, both eyes and all related structures Alignment and Position: alignment normal EOM: EOMs intact bilaterally Neck: Neck: normal visual inspection and full ROM Chest: Chest palpation & inspection: normal inspection of the chest Resp: Effort & Inspection: normal respiratory effort Auscultation: clear to auscultation bilaterally Cardio: Palpation: normal PMI Rate: regular rate Rhythm: regular rhythm Heart sounds: S1 normal heart sound present and S2 normal heart sound present GI: Inspection: normal to inspection Auscultation: normal bowel sounds Rectal Exam: deferred Other: Large abdominal wound noted to mid abdomen her. Wet to dry dressing intact. No drainage noted this time. Packing not removed. Back/Spine/Pelvis: Back: no CVA tenderness Skin: General skin exam: normal color Lesions: no lesions Rashes: no rashes Trauma: no lacerations or abrasions Wounds: no wounds Hair: normal Nails: normal Neuro: General: oriented to person, oriented to place, oriented to time and patient oriented x3 Cranial nerves: Yes Equal, round and reactive pupils present and Yes Normal hearing present Cognition (Neuro): normal cognition Speech: normal speech Gait exam (Neuro): Normal gait present Motor exam (neuro): 5/5 motor strength present throughout Sensory Exam: normal sensation Extrem: General: normal to inspection Right upper extremity: normal to inspection and shoulder/upper arm Left upper extremity: normal to inspection and shoulder/upper arm Right lower extremity: normal to inspection Left lower extremity: normal to inspection Psych: Appearance: grossly normal Mental Status: mental status grossly normal Speech and movement: Normal speech and movement present Affect: normal affect Attitude: cooperative Thought process: Normal thought process present Thought content: Yes Normal thought content present Insight: Good insight present (Psych) Judgement: Good judgement present (Psych) H&P: Results Labs Labs: Short CBC 07/20/25 Range/Units 20:45 WBC 5.8 (4.5-10.0) K/mm3 Hgb 8.9 L D (14.0-18.0) g/dL Hct 28.1 L (42.0-52.0) % Plt Count 326 (150-375) k/mm3 BMP 07/20/25 20:45 Sodium 132 L Potassium 3.9 Chloride 96 L Carbon Dioxide 33 H BUN 25 H D Creatinine 0.93 Glucose 115 H Calcium 8.7 Assessment and Plan Assessment and plan (1) S/P hernia repair: Code(s): Z98.890 - Other specified postprocedural states; Z87.19 - Personal history of other diseases of the digestive system Status: Acute Assessment and Plan: -the patient was released from [facility] in the afternoon. The patient was released to [facility] rehab facility. The wound VAC was not available to him at the time. A wet-to-dry dressing was applied to the patient as a wound VAC was not available. The patient and the family are not satisfied with the care they received at [facility]. They would like to find another facility that can manage the wound VAC. the facility took the patient off the wound VAC as none was available. A wet to dry dressing had been substituted. The ED physician did contact [facility] surgery department was notified by the er provider . It was noted that the surgery tean at [facility] were okay with the patient having wet to dry dressings for now. -the patient has completed all of his antibiotics as prescribed. -continue with daily wet-to-dry dressings for now. -wound care consult has been placed. -wet to dry dressing was intact at the time of assessment. (2) COPD (chronic obstructive pulmonary disease): Qualifiers: COPD type: unspecified COPD Qualified Code(s): J44.9 - Chronic obstructive pulmonary disease, unspecified Code(s): J44.9 - Chronic obstructive pulmonary disease, unspecified Status: Acute Assessment and Plan: -the patient is chronically on oxygen at 2 L per nasal cannula. -continue with home medications once they are verified. (3) Hypothyroidism: Qualifiers: Hypothyroidism type: acquired Qualified Code(s): E03.9 - Hypothyroidism, unspecified Code(s): E03.9 - Hypothyroidism, unspecified Status: Acute Assessment and Plan: -resume levothyroxine once his home medications have been verified. (4) Congestive heart failure: Code(s): I50.9 - Heart failure, unspecified Status: Acute Assessment and Plan: -resume his Lasix, Coreg, and spironolactone when home medications are verified. (5) Hypertension: Qualifiers: Hypertension type: essential hypertension Qualified Code(s): I10 - Essential (primary) hypertension Code(s): I10 - Essential (primary) hypertension Status: Acute Assessment and Plan: -is current blood pressure is 122/70. -resume home medications once they are verified. (6) Atrial fibrillation: Qualifiers: Atrial fibrillation type: unspecified Qualified Code(s): I48.91 - Unspecified atrial fibrillation Code(s): I48.91 - Unspecified atrial fibrillation Status: Acute Assessment and Plan: -the patient is currently in sinus rhythm. -continue with Xarelto --continue with rate controlling medications once his home medications have been reconciled. (7) Dyslipidemia: Code(s): E78.5 - Hyperlipidemia, unspecified Status: Acute Assessment and Plan: Continue with atorvastatin (8) CKD (chronic kidney disease) stage 3, GFR 30-59 ml/min: Qualifiers: Chronic kidney disease stage 3 subtype: stage 3b (GFR 30-44) Qualified Code(s): N18.32 - Chronic kidney disease, stage 3b Code(s): N18.30 - Chronic kidney disease, stage 3 unspecified Status: Acute Assessment and Plan: His BUN is 25 and creatinine is 0.93 which has improved from his last values on 07/01/2025. His GFR is now greater than 60 with a previous value of 34. (9) Anemia: Code(s): D64.9 - Anemia, unspecified Status: Acute Assessment and Plan: Monitor for any s/s of bleeding as he has been on blood thinners, monitor cbc Quality VTE Prophylaxis VTE prophylaxis: pharmacologic ordered (Once his Xarelto has been restarted.)
[2025-07-21] VITALS (10 sets, daily range): BP systolic 135–145; BP diastolic 57–98; PULSE 71–107; RESP 14–35; TEMP 36.1–37; O2SAT 85–95
--- NOTE | 2025-07-21 | ECHO_ITS ---
Patient Info Name: Omar Paula Age: 64 years : 1960 Gender: Male Ht: 71 in Wt: 413 lbs BSA: 3.17 m2 HR: 88 bpm BP: 135 / 57 mmHg Technical Quality: Fair Exam Date: 07/21/2025 9:15 AM Patient Status: I Admit Date: 07/20/2025 Exam Type: CA echo dop color flow w con Complete two-dimensional, color flow and Doppler transthoracic echocardiogram is performed with contrast to opacify the left ventricle and to improve the deliniation of the left ventricle endocardial borders. Staff Referring Physician: Alma Boggs NP Title I Instructional Assistant: Luh Forman Attending Provider: Robert Smith MD Contrast/Agitated Saline Contrast/Ag. Saline: Definity Amount: 2.00 ml Summary 1. Left ventricular systolic function is normal, estimated at 55-60. 2. Left atrial chamber dimension is mildly enlarged. 3. There is trace aortic valve regurgitation. 4. There is mild mitral valve regurgitation. Left Ventricle Left ventricular chamber dimension is normal. Left ventricular systolic function is normal, estimated at 55-60. There is no increased left ventricular wall thickness. Left ventricular septal wall motion is normal. The left ventricular diastolic function is abnormal. Right Ventricle Right ventricular chamber dimension is normal. Right ventricular systolic function is normal. Left Atria Left atrial chamber dimension is mildly enlarged. Right Atria Right atrial chamber dimension is normal. Aortic Valve The aortic valve is trileaflet. There is mild aortic valve sclerosis. There is no aortic valve stenosis. There is trace aortic valve regurgitation. Pulmonic Valve The pulmonic valve is normal. There is no pulmonic valve stenosis. There is no pulmonic regurgitation. Mitral Valve The mitral valve has normal leaflets. There is no mitral valve stenosis. There is mild mitral valve regurgitation. Tricuspid Valve The tricuspid valve leaflets are normal. There is no significant tricuspid valve stenosis. There is no tricuspid valve regurgitation. Pericardium/Pleural The pericardium appears normal. There is no pericardial effusion. Inferior Vena Cava Normal inferior vena cava with >50% collapse upon inspiration consistent with normal right atrial pressure, 5 mmHg. Aorta The aortic root size at the sinus of Valsalva is normal. The prox ascending aorta size is normal. Left Ventricular Outflow Tract Name Value Normal LVOT 2D LVOT Diameter 2.0 cm LVOT Doppler LVOT Peak Velocity 126 cm/s LVOT Peak Gradient 6 mmHg LVOT Mean Gradient 3 mmHg LVOT VTI 28 cm LVOT Stroke Volume 87 ml LVOT CO 7.6 l/min LVOT CI 2.4 l/min/m2 Pulmonic Valve Name Value Normal RVOT Doppler RVOT Peak Velocity 97 cm/s RVOT Peak Gradient 4 mmHg PV Doppler PV Peak Velocity 126 cm/s PV Peak Gradient 6 mmHg Mitral Valve Name Value Normal MV Diastolic Function MV E Peak Velocity 100 cm/s MV A Peak Velocity 47 cm/s MV E/A 2.1 MV Decel Time (PW) 132 ms MV Annular TDI MV E/e' (Septal) 9.6 MV E/e' (Lateral) 9.5 MV E/e' (Average) 9.5 Tricuspid Valve Name Value Normal Estimated PAP/RSVP RA Pressure 5 mmHg <=5 Aortic Valve Name Value Normal AV Doppler AV Peak Velocity 165 cm/s AV Peak Gradient 11 mmHg AV Area (Cont Eq Korey) 2.4 cm2 AV DI (Korey) 0.76 AV Regurgitation 2D LVOT Area 3.1 cm2 Ventricles Name Value Normal LV Dimensions 2D/MM IVS Diastolic Thickness (2D) 1.0 cm 0.6-1.0 LVID Diastole (2D) 5.8 cm 4.2-5.8 LVIW Diastolic Thickness (2D) 1.2 cm 0.6-1.0 LVID Systole (2D) 3.7 cm 2.5-4.0 LVOT Diameter 2.0 cm LV Mass (2D Cubed) 259.78 g 88.00-224.00 LV Mass Index (2D Cubed) 82 g/m2 49-115 Relative Wall Thickness (2D) 0.41 <=0.42 LV Fractional Shortening/Ejection Fraction 2D/MM LV Fractional Shortening (2D) 37 % 25-43 LV EF (2D Teichholz) 66 % LV Diastolic Volume (4C MOD) 158 ml LV EF (4C MOD) 54 % LV Diastolic Volume (2C MOD) 239 ml LV EF (2C MOD) 63 % LV Diastolic Volume (BP MOD) 195 ml 62-150 LV Diastolic Volume Index (BP MOD) 61 ml/m2 34-74 LV Systolic Volume (BP MOD) 82 ml 21-61 LV Systolic Volume Index (BP MOD) 26 ml/m2 11-31 LV EF (BP MOD) 58 % 52-72 LV Diastolic Length (4C) 8.1 cm LV Systolic Length (4C) 7.0 cm LV Stroke Volume (4C MOD) 85 ml Atria Name Value Normal LA Dimensions LA Volume (4C A-L) 99 ml LA Volume (BP A-L) 103 ml RA Dimensions RA Systolic Major [place] Length (4C) 8.0 cm 2.1-2.7 RA Area (4C) 34.0 cm2 <=18.0 Report Signatures
--- NOTE | 2025-07-21 04:27 | PC.NURSE ---
At 345 patient admitted to room 347. came to room and then went home. Pain medication given. Patient resting quietly at this time.
[2025-07-21] MEDS: NACL 0.9% IRRIGATION POUR BOTTL 1,000 ML 1000 ML (04:30)
[2025-07-21 05:42] LABS: Hematocrit 27.6 % (42.0-52.0); Hemoglobin 8.6 g/dL (14.0-18.0); Mean Corpuscular HGB Conc 31.2 g/dl (32-36); Mean Corpuscular Hemoglobin 31.4 pg (26-34); Mean Corpuscular Volume 100.7 fl (80-100); Platelet Count Result 281 k/mm3 (150-375); Red Blood Count 2.74 M/mm3 (4.6-6.20); White Blood Count 4.7 K/mm3 (4.5-10.0)
[2025-07-21 05:58] LABS: Anion Gap 3 mmol/L (4-12); Blood Urea Nitrogen 22 mg/dL (9-20); Calcium 8.5 mg/dL (8.4-10.2); Carbon Dioxide 35 mmol/L (22-30); Chloride 96 mmol/L (98-107); Estimated CRCL calculation 123 ml/min; Estimated Glomerular Filt Rate > 60; Glucose 111 mg/dL (65-110); Potassium 3.7 mmol/L (3.4-5.0); Sodium 134 mmol/L (137-145)
--- NOTE | 2025-07-21 08:00 | P.PNIM_ITS ---
Progress Note: A&P Assessment and Plan (1) S/P hernia repair: Code(s): Z98.890 - Other specified postprocedural states; Z87.19 - Personal history of other diseases of the digestive system Status: Acute Assessment and Plan: Was released from [facility] to [facility] rehab facility, however wound VAC was not available to him at the time. A wet-to-dry dressing was applied. The patient and the family are not satisfied with the care they received at [facility], would like to find another facility that can manage the wound VAC. The ED physician did contact [facility] surgery department and they were okay with the patient having wet to dry dressings for now. * the patient has completed all of his antibiotics as prescribed. * continue with daily wet-to-dry dressings for now. * wound care consult has been placed. * wet to dry dressing was intact at the time of assessment. * Care coordination consulted for placement to facility that can manage Wound VAC (2) COPD (chronic obstructive pulmonary disease): Qualifiers: COPD type: unspecified COPD Qualified Code(s): J44.9 - Chronic obstructive pulmonary disease, unspecified Code(s): J44.9 - Chronic obstructive pulmonary disease, unspecified Status: Acute Assessment and Plan: * On oxygen at 2 L per nasal cannula baseline * continue with home medications (3) Hypothyroidism: Qualifiers: Hypothyroidism type: acquired Qualified Code(s): E03.9 - Hypothyroidism, unspecified Code(s): E03.9 - Hypothyroidism, unspecified Status: Acute Assessment and Plan: * resume levothyroxine (4) Congestive heart failure: Code(s): I50.9 - Heart failure, unspecified Status: Acute Assessment and Plan: * resume his Lasix, Coreg, and spironolactone (5) Hypertension: Qualifiers: Hypertension type: essential hypertension Qualified Code(s): I10 - Essential (primary) hypertension Code(s): I10 - Essential (primary) hypertension Status: Acute Assessment and Plan: * is current blood pressure is 122/70. * resume home medications (6) Atrial fibrillation: Qualifiers: Atrial fibrillation type: unspecified Qualified Code(s): I48.91 - Unspecified atrial fibrillation Code(s): I48.91 - Unspecified atrial fibrillation Status: Acute Assessment and Plan: * the patient is currently in sinus rhythm. * continue with Xarelto * continue with rate controlling medications once his home medications have been reconciled. (7) Dyslipidemia: Code(s): E78.5 - Hyperlipidemia, unspecified Status: Acute Assessment and Plan: * Continue with atorvastatin (8) CKD (chronic kidney disease) stage 3, GFR 30-59 ml/min: Qualifiers: Chronic kidney disease stage 3 subtype: stage 3b (GFR 30-44) Qualified Code(s): N18.32 - Chronic kidney disease, stage 3b Code(s): N18.30 - Chronic kidney disease, stage 3 unspecified Status: Acute Assessment and Plan: * His BUN is 25 and creatinine is 0.93 which has improved from his last values on 07/01/2025. His GFR is now greater than 60 with a previous value of 34. Subjective Date/time seen: 07/21/25 08:00 Interval history: 64-year-old patient who was had multiple hernia repairs and has COPD chronically on oxygen at 2 L per nasal cannula. The patient was just discharged from [facility] in the afternoon. The patient was transferred to [facility] rehab facility, however they had no supplies for his wound VAC. 07/21/2025 Patient is sitting comfortably in bed at time of exam. Denies any chest pain, SOB, n/v or abd pain besides some surgical site discomfortably but is tolerable. Here for [facility] placement for wound VAC management. Care coordination consulted, working on finding facility for rehab purposes and for managing wound care. Wound care also consulted. Pt otherwise stable. Review of Systems Constitutional: Constitutional: Reports as per HPI and Reports no additional constitutional complaints Eyes: Eyes: Reports as per HPI and Reports no additional eye complaints ENT: Reports system reviewed and no additional complaints, except as documented and Reports Normal hearing present Cardiovascular: Cardiovascular: Reports no additional cardiovascular complaints Respiratory: Respiratory: Reports as per HPI and Reports no additional respiratory complaints Gastrointestinal: Gastrointestinal: Reports as per HPI and Reports no additional gastrointestinal complaints Musculoskeletal: Musculoskeletal: Reports no additional musculoskeletal complaints Integumentary/Breasts: Skin/Breast: Reports system reviewed and no additional complaints, except as docu Neurologic: Reports system reviewed and no additional complaints, except as documented and Reports Normal hearing present Psychiatric: Psychiatric: Reports no additional psychiatric complaints and Reports as per HPI Hematologic/Lymphatic: Hematologic/Lymphatic: Reports no additional hematologic/lymphatic complaints Allergic/Immunologic: Allergic/Immunologic: Reports no additional allergic/immunologic complaints Exam Const: General: cooperative, comfortable, no acute distress, well developed and awake Orientation/consciousness: oriented to person, oriented to place, oriented to time and patient oriented x3 Limitations: no limitations HENMT: Head: normal to inspection, No palpable skull fracture present, normocephalic, atraumatic and abrasion Ears: hearing grossly normal bilaterally Eyes: General: appearance normal, both eyes and all related structures A lignment and Position: alignment normal Pupils: Equal, round and reactive pupils present EOM: EOMs intact bilaterally Neck: Neck: normal visual inspection and full ROM Chest: Chest palpation & inspection: normal inspection of the chest Resp: Effort & Inspection: normal respiratory effort Auscultation: clear to auscultation bilaterally Cardio: Palpation: normal PMI Rate: regular rate Rhythm: regular rhythm Heart sounds: S1 normal heart sound present and S2 normal heart sound present GI: Inspection: normal to inspection Auscultation: normal bowel sounds Rectal Exam: deferred Other: Large abdominal wound noted to mid abdomen her. Wet to dry dressing intact. No drainage noted this time. Packing not removed. : General: Yes no CVA tenderness Back/Spine/Pelvis: Back: no CVA tenderness Skin: General skin exam: normal color Lesions: no lesions Rashes: no rashes Trauma: no lacerations or abrasions Wounds: no wounds Hair: normal Nails: normal Neuro: General: oriented to person, oriented to place, oriented to time and patient oriented x3 Cranial nerves: Yes Equal, round and reactive pupils present and Yes Normal hearing present Cognition (Neuro): normal cognition Speech: normal speech Gait exam (Neuro): Normal gait present Motor exam (neuro): 5/5 motor strength present throughout Sensory Exam: normal sensation Extrem: General: normal to inspection Right upper extremity: normal to inspection and shoulder/upper arm Left upper extremity: normal to inspection and shoulder/upper arm Right lower extremity: normal to inspection Left lower extremity: normal to inspection Psych: Appearance: grossly normal Mental Status: mental status grossly normal Speech and movement: Normal speech and movement present Affect: normal affect Attitude: cooperative Thought process: Normal thought process present Insight: Good insight present (Psych) Judgement: Good judgement present (Psych) Objective Data Vital Signs Vital Signs: Vital Signs - 24 hr 07/20/25 19:08 07/20/25 20:45 07/20/25 20:47 Temperature 98 F Pulse Rate 85 85 Respiratory Rate 20 16 Blood Pressure 142/61 H 121/63 Pulse Oximetry 95 94 96 Oxygen Delivery Room Air Oxygen Flow Rate 07/20/25 21:00 07/20/25 21:02 07/20/25 21:15 Temperature Pulse Rate 85 Respiratory Rate 16 Blood Pressure 142/65 H Pulse Oximetry 96 95 95 Oxygen Delivery Oxygen Flow Rate 07/20/25 21:17 07/20/25 21:30 07/20/25 21:32 Temperature Pulse Rate Respiratory Rate Blood Pressure 110/57 L 134/77 Pulse Oximetry 95 95 95 Oxygen Delivery Oxygen Flow Rate 07/20/25 23:11 07/21/25 00:32 07/21/25 00:44 Temperature 97.5 F L Pulse Rate 92 85 Respiratory Rate 20 31 H Blood Pressure 122/70 Pulse Oximetry 96 93 92 Oxygen Delivery Nasal Cannula Autopap Oxygen Flow Rate 2 07/21/25 03:45 07/21/25 06:00 Temperature 97.8 F Pulse Rate 71 Respiratory Rate 14 Blood Pressure 135/57 L Pulse Oximetry 91 Oxygen Delivery Autopap Oxygen Flow Rate Intake/Output Intake/Output: Intake & Output 07/18/25 07/19/25 07/20/25 07/21/25 23:59 23:59 23:59 23:59 Intake Total 150 Balance 150 Meds/Results Medications: Active Medications Generic Name Dose Route Start Last Admin Trade Name Freq PRN Reason Stop Dose Admin Acetaminophen 650 mg 07/20/25 20:26 Acetaminophen 325 Mg Tablet PO Q4H PRN Mild Pain (1-3) or Fever Albuterol 2.5 mg 07/21/25 03:22 Albuterol Sulfate Neb 2.5 Mg/3 Ml Inh INHALATION Q4HRT PRN Shortness Of Breath Perflutren Lipid Microsphere 0 ml 07/21/25 03:18 Perflutren Lipid Microspheres 1.5 Ml Vial Diluted To 10 Ml Total Volume IV PUSH 07/24/25 03:18 ONCE PRN adequate visualization Protocol Labs Labs: Laboratory Results - last 24 hr 07/20/25 07/21/25 20:45 05:21 WBC 5.8 4.7 RBC 2.83 L 2.74 L Hgb 8.9 L D 8.6 L Hct 28.1 L 27.6 L MCV 99.3 100.7 H MCH 31.4 31.4 MCHC 31.7 L 31.2 L RDW 15.6 H 15.7 H Plt Count 326 281 MPV 10.9 H 10.8 H Immature Gran % (Auto) 0.3 Neut % (Auto) 59.6 Lymph % (Auto) 21.8 [place] % (Auto) 13.6 H Eos % (Auto) 4.0 Baso % (Auto) 0.7 Lymph # (Auto) 1.26 [place] # (Auto) 0.8 H Eos # (Auto) 0.2 Baso # (Auto) 0.0 Abs Immat Gran (auto) 0.02 Absolute Neuts (auto) 3.5 Absolute Nucleated RBC 0.000 Nucleated RBC % 0.0 Sodium 132 L 134 L Potassium 3.9 3.7 Chloride 96 L 96 L Carbon Dioxide 33 H 35 H Anion Gap 3 L 3 L BUN 25 H D 22 H Creatinine 0.93 0.88 Estim Creat Clear Calc Not Reportable 123 Estimated GFR > 60 > 60 Glucose 115 H 111 H Calcium 8.7 8.5 Quality VTE Prophylaxis VTE prophylaxis: pharmacologic ordered (Once his Xarelto has been restarted.)
--- NOTE | 2025-07-21 08:16 | PC.NURSE ---
Patient lost IV access over night is refusing another IV. Notified provider and was okay with patient not having an IV.
[2025-07-21] MEDS: RIVAROXABAN 15 MG TABLET PO (09:50)
[2025-07-21] MEDS: FUROSEMIDE 40 MG TABLET PO ×2 (09:50→17:15)
[2025-07-21] MEDS: LEVOTHYROXINE SODIUM 25 MCG TABLET PO (09:50)
[2025-07-21] MEDS: PERFLUTREN LIPID MICROSPHERES 1.5 ML VIAL DILUTED TO 10 ML TOTAL VOLUME IV PUSH (09:55)
--- NOTE | 2025-07-21 09:56 | IVDEFINITY ---
Prior to administration of IV Definity the patient was educated on the risks and benefits of the imaging enhancing agent including potential adverse side effects. The patient verbalized understanding. Allergies were verified. No exclusion criteria were identified and at least one of the following inclusion criteria were met: 1) physician request, 2) patient technically difficult to image (per the [place] [employer] guidelines of two or more segments not discernable within the apical view), or 3) questionable left ventricular function. ?
--- NOTE | 2025-07-21 10:33 | PCSTNOTE ---
Please refer to the Bedside Swallow Evaluation in the EMR. Please note, silent aspiration cannot be ruled out at bedside. Pt is a 64 year old man who presents at the hospital for treatment of a wound from his recent surgery. Bedside swallow orders were placed due to overnight provider witnessing a coughing episode with thin liquids. Upon AGRONOMIST arrival, RN agreeable to evaluation and removed CPAP device and placed pt's nasal canula. CPAP is only used at night. Pt was a good historian of history and reports a globus sensation and PO going down the wrong way about 4-5x per week. Pt states he does not have a history of dysphagia and states his most recent diagnosis of pneumonia was in August of 2024. An oral mechanism exam was completed and found to be unremarkable. When the pt was positioned upright, he reported discomfort and stated he was comfortable eating and drinking reclined. Initial trials of thin liquids via teaspoon and cup edge were presented in this position; however, pt stated discomfort during the swallow and a globus sensation. The AGRONOMIST suggested an upright position and pt was agreeable. Thin liquids via cup edge and straw, pudding, and hard solids were all presented in this position. Pt reported less discomfort with the swallow and reduction in globus sensation. Pt demonstrated coughing x1 with straw drink of thin liquids. This could be indicative of penetration or aspiration. No other overt signs or symptoms of aspiration were observed throughout trials despite volume or consistency. Recommendations: 1. Level 7 / Regular Diet; Level 1 / Thin Liquids 2. UPRIGHT with all PO; NO straws (cup sips only) 3. Complete MBS on 07/23/25 when radiologist is available (no MBS availability on weekends)
[2025-07-21 11:27] LABS: Hematocrit 28.5 % (42.0-52.0); Hemoglobin 8.8 g/dL (14.0-18.0)
--- NOTE | 2025-07-21 14:39 | PCOTNOTE ---
Attempted OT evaluation. Pt. just finished getting cleaned up and wound care with nursing. Pt. requested to hold off until morning as he was winded and tired. Will continue to follow as able.
[2025-07-21] MEDS: ALBUTEROL SULFATE NEB 2.5 MG/3 ML INH INHALATION (15:51)
[2025-07-21 17:41] LABS: Hematocrit 29.4 % (42.0-52.0); Hemoglobin 9.2 g/dL (14.0-18.0)
[2025-07-21] MEDS: ACETAMINOPHEN 325 MG TABLET 650 MG PO (20:59)
[2025-07-21] MEDS: ATORVASTATIN 40 MG TABLET 80 MG PO (20:59)
[2025-07-21 23:22] LABS: Hematocrit 27.4 % (42.0-52.0); Hemoglobin 8.7 g/dL (14.0-18.0)
[2025-07-22] VITALS (11 sets, daily range): BP systolic 133–139; BP diastolic 66–78; PULSE 68–103; RESP 16–22; TEMP 36.7–37.3; O2SAT 94–100
[2025-07-22 05:21] LABS: Hematocrit 27.7 % (42.0-52.0); Hemoglobin 8.4 g/dL (14.0-18.0); Mean Corpuscular HGB Conc 30.3 g/dl (32-36); Mean Corpuscular Hemoglobin 30.9 pg (26-34); Mean Corpuscular Volume 101.8 fl (80-100); Platelet Count Result 236 k/mm3 (150-375); Red Blood Count 2.72 M/mm3 (4.6-6.20); White Blood Count 5.4 K/mm3 (4.5-10.0)
[2025-07-22 05:36] LABS: Anion Gap 2 mmol/L (4-12); Blood Urea Nitrogen 17 mg/dL (9-20); Calcium 8.4 mg/dL (8.4-10.2); Carbon Dioxide 34 mmol/L (22-30); Chloride 98 mmol/L (98-107); Estimated CRCL calculation 122 ml/min; Estimated Glomerular Filt Rate > 60; Glucose 110 mg/dL (65-110); Potassium 3.7 mmol/L (3.4-5.0); Sodium 134 mmol/L (137-145)
[2025-07-22] MEDS: LEVOTHYROXINE SODIUM 25 MCG TABLET PO (05:52)
--- NOTE | 2025-07-22 07:36 | P.PNIM_ITS ---
Progress Note: A&P Assessment and Plan (1) S/P hernia repair: Code(s): Z98.890 - Other specified postprocedural states; Z87.19 - Personal history of other diseases of the digestive system Status: Acute Assessment and Plan: Was released from [facility] to [facility] rehab facility, however wound VAC was not available to him at the time. A wet-to-dry dressing was applied. The patient and the family are not satisfied with the care they received at [facility], would like to find another facility that can manage the wound VAC. The ED physician did contact [facility] surgery department and they were okay with the patient having wet to dry dressings for now. * the patient has completed all of his antibiotics as prescribed. * continue with daily wet-to-dry dressings for now. * wound care consult has been placed. * wet to dry dressing was intact at the time of assessment. * Care coordination consulted for placement to facility that can manage Wound VAC - [facility] (2) COPD (chronic obstructive pulmonary disease): Qualifiers: COPD type: unspecified COPD Qualified Code(s): J44.9 - Chronic obstructive pulmonary disease, unspecified Code(s): J44.9 - Chronic obstructive pulmonary disease, unspecified Status: Acute Assessment and Plan: * On oxygen at 2 L per nasal cannula baseline * continue with home medications (3) Hypothyroidism: Qualifiers: Hypothyroidism type: acquired Qualified Code(s): E03.9 - Hypothyroidism, unspecified Code(s): E03.9 - Hypothyroidism, unspecified Status: Acute Assessment and Plan: * resume levothyroxine (4) Congestive heart failure: Code(s): I50.9 - Heart failure, unspecified Status: Acute Assessment and Plan: * resume his Lasix, Coreg, and spironolactone (5) Hypertension: Qualifiers: Hypertension type: essential hypertension Qualified Code(s): I10 - Essential (primary) hypertension Code(s): I10 - Essential (primary) hypertension Status: Acute Assessment and Plan: * is current blood pressure is 122/70. * resume home medications (6) Atrial fibrillation: Qualifiers: Atrial fibrillation type: unspecified Qualified Code(s): I48.91 - Unspecified atrial fibrillation Code(s): I48.91 - Unspecified atrial fibrillation Status: Acute Assessment and Plan: * the patient is currently in sinus rhythm. * continue with Xarelto * continue with rate controlling medications once his home medications have been reconciled. (7) Dyslipidemia: Code(s): E78.5 - Hyperlipidemia, unspecified Status: Acute Assessment and Plan: * Continue with atorvastatin (8) CKD (chronic kidney disease) stage 3, GFR 30-59 ml/min: Qualifiers: Chronic kidney disease stage 3 subtype: stage 3b (GFR 30-44) Qualified Code(s): N18.32 - Chronic kidney disease, stage 3b Code(s): N18.30 - Chronic kidney disease, stage 3 unspecified Status: Acute Assessment and Plan: * His BUN is 25 and creatinine is 0.93 which has improved from his last values on 07/01/2025. His GFR is now greater than 60 with a previous value of 34. Subjective Date/time seen: 07/22/25 07:36 Interval history: 64-year-old patient who was had multiple hernia repairs and has COPD chronically on oxygen at 2 L per nasal cannula. The patient was just discharged from [facility] in the afternoon. The patient was transferred to [facility] rehab facility, however they had no supplies for his wound VAC. 07/22/2025 Patient is sitting comfortably in bed at time of exam. No acute overnight events. Care coordination working on finding facility - referrals sent to [facility] and [facility], pending acceptance. He denies any CP, SOB, n/v or abd pain. Nursing staff maintaining wound bandaging. Review of Systems Review of Systems: All systems reviewed & are unremarkable except as noted in HPI and below Exam Const: General: cooperative, comfortable, no acute distress, well developed and awake Orientation/consciousness: oriented to person, oriented to place, oriented to time and patient oriented x3 Limitations: no limitations HENMT: Head: normal to inspection, No palpable skull fracture present, normocephalic, atraumatic and abrasion Ears: hearing grossly normal bilaterally Eyes: General: appearance normal, both eyes and all related structures Alignment and Position: alignment normal Pupils: Equal, round and reactive pupils present EOM: EOMs intact bilaterally Neck: Neck: normal visual inspection and full ROM Chest: Chest palpation & inspection: normal inspection of the chest Resp: Effort & Inspection: normal respiratory effort Auscultation: clear to auscultation bilaterally Cardio: Palpation: normal PMI Rate: regular rate Rhythm: regular rhythm Heart sounds: S1 normal heart sound present and S2 normal heart sound present GI: Inspection: normal to inspection Auscultation: normal bowel sounds Rectal Exam: deferred Other: Large abdominal wound noted to mid abdomen her. Wet to dry dressing intact. No drainage noted this time. Packing not removed. : General: Yes no CVA tenderness Back/Spine/Pelvis: Back: no CVA tenderness Skin: General skin exam: normal color Lesions: no lesions Rashes: no rashes Trauma: no lacerations or abrasions Wounds: no wounds Hair: normal Nails: normal Neuro: General: oriented to person, oriented to place, oriented to time and patient oriented x3 Cranial nerves: Yes Equal, round and reactive pupils pre sent and Yes Normal hearing present Cognition (Neuro): normal cognition Speech: normal speech Gait exam (Neuro): Normal gait present Motor exam (neuro): 5/5 motor strength present throughout Sensory Exam: normal sensation Extrem: General: normal to inspection Right upper extremity: normal to inspection and shoulder/upper arm Left upper extremity: normal to inspection and shoulder/upper arm Right lower extremity: normal to inspection Left lower extremity: normal to inspection Psych: Appearance: grossly normal Mental Status: mental status grossly normal Speech and movement: Normal speech and movement present Affect: normal affect Attitude: cooperative Thought process: Normal thought process present Insight: Good insight present (Psych) Judgement: Good judgement present (Psych) Objective Data Vital Signs Vital Signs: Vital Signs - 24 hr 07/21/25 08:00 07/21/25 14:00 07/21/25 15:54 Temperature 97.0 F L Pulse Rate 85 107 H Respiratory Rate 24 H 20 Blood Pressure 145/87 H Pulse Oximetry 95 85 L 94 Oxygen Delivery Nasal Cannula Nasal Cannula Oxygen Flow Rate 2 2 07/21/25 15:54 07/21/25 16:00 07/21/25 20:00 Temperature Pulse Rate 107 H 96 96 Respiratory Rate 20 20 20 Blood Pressure Pulse Oximetry 94 Oxygen Delivery Nasal Cannula Oxygen Flow Rate 2 07/21/25 22:00 07/21/25 22:40 07/22/25 02:26 Temperature 98.6 F Pulse Rate 97 Respiratory Rate 20 35 H 21 H Blood Pressure 135/98 H Pulse Oximetry 93 Oxygen Delivery Autopap Autopap Oxygen Flow Rate 07/22/25 05:23 Temperature 98.2 F Pulse Rate 76 Respiratory Rate 18 Blood Pressure 133/66 Pulse Oximetry 96 Oxygen Delivery Oxygen Flow Rate Intake/Output Intake/Output: Intake & Output 07/19/25 07/20/25 07/21/25 07/22/25 23:59 23:59 23:59 23:59 Intake Total 1720 500 Output Total 1500 250 Balance 220 250 Meds/Results Medications: Active Medications Generic Name Dose Route Start Last Admin Trade Name Freq PRN Reason Stop Dose Admin Acetaminophen 650 mg 07/20/25 20:26 07/21/25 20:59 Acetaminophen 325 Mg Tablet PO 650 mg Q4H PRN Administration Mild Pain (1-3) or Fever Acetylcysteine 600 mg 07/21/25 08:13 Acetylcysteine 20% Inhal Soln 800 Mg/4 Ml Vial INHALATION Q4H PRN Shortness Of Breath Albuterol 2.5 mg 07/21/25 03:22 07/21/25 15:51 Albuterol Sulfate Neb 2.5 Mg/3 Ml Inh INHALATION 2.5 mg Q4HRT PRN Administration Shortness Of Breath Albuterol 1 - 2 puff 07/21/25 12:00 Albuterol Sulfate (*Sp) Aerosol 1 Puff INHALATION Q4HRT PRN Shortness Of Breath Atorvastatin Calcium 80 mg 07/21/25 21:00 07/21/25 20:59 Atorvastatin 40 Mg Tablet PO 80 mg QHS KIM Administration Furosemide 40 mg 07/21/25 09:00 07/21/25 17:15 Furosemide 40 Mg Tablet PO 40 mg BID KIM Administration Levothyroxine Sodium 25 mcg 07/21/25 09:00 07/22/25 05:52 Levothyroxine Sodium 25 Mcg Tablet PO 25 mcg DAILY@0630 KIM Administration Miscellaneous Information 1 each 07/21/25 00:01 Albuterol Updraft Is Duplicate Therapy With Inhaler. Hold One? XX 08/20/25 00:00 CLARIFY KIM Rivaroxaban 15 mg 07/21/25 09:00 07/21/25 09:50 Rivaroxaban 15 Mg Tablet PO 15 mg DAILY KIM Administration Spironolactone 12.5 mg 07/21/25 09:00 07/21/25 09:50 Spironolactone 12.5 Mg Tablet PO 12.5 mg DAILY KIM Administration Labs Labs: Laboratory Results - last 24 hr 07/21/25 07/21/25 07/21/25 11:21 17:37 23:16 WBC RBC Hgb 8.8 L 9.2 L 8.7 L Hct 28.5 L 29.4 L 27.4 L MCV MCH MCHC RDW Plt Count MPV Sodium Potassium Chloride Carbon Dioxide Anion Gap BUN Creatinine Estim Creat Clear Calc Estimated GFR Glucose Calcium 07/22/25 05:11 WBC 5.4 RBC 2.72 L Hgb 8.4 L Hct 27.7 L MCV 101.8 H MCH 30.9 MCHC 30.3 L RDW 15.5 H Plt Count 236 MPV 10.7 H Sodium 134 L Potassium 3.7 Chloride 98 Carbon Dioxide 34 H Anion Gap 2 L BUN 17 Creatinine 0.89 Estim Creat Clear Calc 122 Estimated GFR > 60 Glucose 110 Calcium 8.4
[2025-07-22] MEDS: ALBUTEROL SULFATE NEB 2.5 MG/3 ML INH INHALATION ×2 (08:54→14:43)
[2025-07-22] MEDS: RIVAROXABAN 15 MG TABLET PO (09:31)
[2025-07-22] MEDS: FUROSEMIDE 40 MG TABLET PO ×2 (09:31→16:35)
[2025-07-22] MEDS: HYDROcodone/acetaminophen (*CRX) 5-325 MG TABLET 1 TAB PO ×2 (16:35→22:26)
[2025-07-22] MEDS: ATORVASTATIN 40 MG TABLET 80 MG PO (20:13)
[2025-07-23] VITALS (9 sets, daily range): BP systolic 132–148; BP diastolic 65–85; PULSE 68–99; RESP 16–22; TEMP 36.5–36.9; O2SAT 95–100
[2025-07-23] MEDS: ALBUTEROL SULFATE NEB 2.5 MG/3 ML INH INHALATION (05:35)
[2025-07-23 05:38] LABS: Hematocrit 28.2 % (42.0-52.0); Hemoglobin 8.7 g/dL (14.0-18.0); Mean Corpuscular HGB Conc 30.9 g/dl (32-36); Mean Corpuscular Hemoglobin 31.2 pg (26-34); Mean Corpuscular Volume 101.1 fl (80-100); Platelet Count Result 246 k/mm3 (150-375); Red Blood Count 2.79 M/mm3 (4.6-6.20); White Blood Count 5.1 K/mm3 (4.5-10.0)
[2025-07-23] MEDS: LEVOTHYROXINE SODIUM 25 MCG TABLET PO (05:48)
[2025-07-23] MEDS: HYDROcodone/acetaminophen (*CRX) 5-325 MG TABLET 1 TAB PO ×3 (05:48→20:42)
[2025-07-23 05:56] LABS: Anion Gap 3 mmol/L (4-12); Blood Urea Nitrogen 13 mg/dL (9-20); Calcium 8.4 mg/dL (8.4-10.2); Carbon Dioxide 34 mmol/L (22-30); Chloride 98 mmol/L (98-107); Estimated CRCL calculation 138 ml/min; Estimated Glomerular Filt Rate > 60; Glucose 105 mg/dL (65-110); Potassium 3.7 mmol/L (3.4-5.0); Sodium 135 mmol/L (137-145)
--- NOTE | 2025-07-23 06:13 | PC.NURSE ---
patient pulled iv out by accident. patient is requesting not to have another IV at this time. patient has no iv meds ordered. reginaldo darnell MD.
--- NOTE | 2025-07-23 07:37 | P.PNIM_ITS ---
Progress Note: A&P Assessment and Plan (1) S/P hernia repair: Code(s): Z98.890 - Other specified postprocedural states; Z87.19 - Personal history of other diseases of the digestive system Status: Acute Assessment and Plan: Was released from [facility] to [facility] rehab facility, however wound VAC was not available to him at the time. A wet-to-dry dressing was applied. The patient and the family are not satisfied with the care they received at [facility], would like to find another facility that can manage the wound VAC. The ED physician did contact [facility] surgery department and they were okay with the patient having wet to dry dressings for now. * the patient has completed all of his antibiotics as prescribed. * continue with daily wet-to-dry dressings for now. * wound care consult has been placed. * wet to dry dressing was intact at the time of assessment. * Care coordination consulted for placement to facility that can manage Wound VAC - referrals sent to [facility], pending accepta nce. (2) COPD (chronic obstructive pulmonary disease): Qualifiers: COPD type: unspecified COPD Qualified Code(s): J44.9 - Chronic obstructive pulmonary disease, unspecified Code(s): J44.9 - Chronic obstructive pulmonary disease, unspecified Status: Acute Assessment and Plan: * On oxygen at 2 L per nasal cannula baseline * continue with home medications (3) Hypothyroidism: Qualifiers: Hypothyroidism type: acquired Qualified Code(s): E03.9 - Hypothyroidism, unspecified Code(s): E03.9 - Hypothyroidism, unspecified Status: Acute Assessment and Plan: * resume levothyroxine (4) Congestive heart failure: Code(s): I50.9 - Heart failure, unspecified Status: Acute Assessment and Plan: * resume his Lasix, Coreg, and spironolactone (5) Hypertension: Qualifiers: Hypertension type: essential hypertension Qualified Code(s): I10 - Essential (primary) hypertension Code(s): I10 - Essential (primary) hypertension Status: Acute Assessment and Plan: * current blood pressure is 122/70. * resume home medications (6) Atrial fibrillation: Qualifiers: Atrial fibrillation type: unspecified Qualified Code(s): I48.91 - Unspecified atrial fibrillation Code(s): I48.91 - Unspecified atrial fibrillation Status: Acute Assessment and Plan: * the patient is currently in sinus rhythm. * continue with Xarelto * continue with rate controlling medications once his home medications have been reconciled. (7) Dyslipidemia: Code(s): E78.5 - Hyperlipidemia, unspecified Status: Acute Assessment and Plan: * Continue with atorvastatin (8) CKD (chronic kidney disease) stage 3, GFR 30-59 ml/min: Qualifiers: Chronic kidney disease stage 3 subtype: stage 3b (GFR 30-44) Qualified Code(s): N18.32 - Chronic kidney disease, stage 3b Code(s): N18.30 - Chronic kidney disease, stage 3 unspecified Status: Acute Assessment and Plan: * His BUN is 25 and creatinine is 0.93 which has improved from his last values on 07/01/2025. His GFR is now greater than 60 with a previous value of 34. (9) Anemia: Code(s): D64.9 - Anemia, unspecified Status: Acute Assessment and Plan: * Monitor for any s/s of bleeding as he has been on blood thinners, * monitor cbc Subjective Date/time seen: 07/23/25 07:37 Interval history: 64-year-old patient who was had multiple hernia repairs and has COPD chronically on oxygen at 2 L per nasal cannula. The patient was just discharged from [facility] in the afternoon. The patient was transferred to [facility] rehab facility, however they had no supplies for his wound VAC. 07/23/2025 Patient is sitting comfortably in bed at time of exam. No complaints or concerns at this time. Vitals remain unchanged/unremarkable. Still working with CC regarding placement. Wound care to continue wet-to-dry dressings. Review of Systems Review of Systems: All systems reviewed & are unremarkable except as noted in HPI and below Exam Const: General: cooperative, comfortable, no acute distress, well developed and awake Orientation/consciousness: oriented to person, oriented to place, oriented to time and patient oriented x3 Limitations: no limitations HENMT: Head: normal to inspection, No palpable skull fracture present, normocephalic, atraumatic and abrasion Ears: hearing grossly normal bilaterally Eyes: General: appearance normal, both eyes and all related structures Alignment and Position: alignment normal Pupils: Equal, round and reactive pupils present EOM: EOMs intact bilaterally Neck: Neck: normal visual inspection and full ROM Chest: Chest palpation & inspection: normal inspection of the chest Resp: Effort & Inspection: normal respiratory effort Auscultation: clear to auscultation bilaterally Cardio: Palpation: normal PMI Rate: regular rate Rhythm: regular rhythm Heart sounds: S1 normal heart sound present and S2 normal heart sound present GI: Inspection: normal to inspection Auscultation: normal bowel sounds Rectal Exam: deferred Other: Large abdominal wound noted to mid abdomen her. Wet to dry dressing intact. No drainage noted this time. Packing not removed. : General: Yes no CVA tenderness Back/Spine/Pelvis: Back: no CVA tenderness Skin: General skin exam: normal color Lesions: no lesions Rashes: no rashes Trauma: no lacerations or abrasions Wounds: no wounds Hair: normal Nails: normal Neuro: General: oriented to person, oriented to place, oriented to time and patient oriented x3 Cranial nerves: Yes Equal, round and reactive pupils present and Yes Normal hearing present Cognition (Neuro): normal cognition Speech: normal speech Gait exam (Neuro): Normal gait present Motor exam (neuro): 5/5 motor strength present throughout Sensory Exam: normal sensation Extrem: General: normal to inspection Right upper extremity: normal to inspection and shoulder/upper arm Left upper extremity: normal to inspection and shoulder/upper arm Right lower extremity: normal to inspection Left lower extremity: normal to inspection Psych: Appearance: grossly normal Mental Status: mental status grossly normal Speech and movement: Normal speech and movement present Affect: normal affect Attitude: cooperative Thought process: Normal thought process present Insight: Good insight present (Psych) Judgement: Good judgement present (Psych) Objective Data Vital Signs Vital Signs: Vital Signs - 24 hr 07/22/25 08:00 07/22/25 08:06 07/22/25 08:50 Temperature Pulse Rate 95 Respiratory Rate 20 Blood Pressure Pulse Oximetry 94 94 Oxygen Delivery Nasal Cannula Nasal Cannula Oxygen Flow Rate 2 2 Fraction of Inspired Oxygen 28 07/22/25 08:56 07/22/25 10:30 07/22/25 10:45 Temperature Pulse Rate 98 Respiratory Rate 20 Blood Pressure Pulse Oximetry Oxygen Delivery Nasal Cannula Nasal Cannula Oxygen Flow Rate 2 2 Fraction of Inspired Oxygen 07/22/25 14:00 07/22/25 14:40 07/22/25 14:48 Temperature 98.1 F Pulse Rate 80 102 H 103 H Respiratory Rate 22 H 20 20 Blood Pressure 139/78 Pulse Oximetry 96 Oxygen Delivery Oxygen Flow Rate Fraction of Inspired Oxygen 07/22/25 20:00 07/22/25 22:00 07/23/25 00:15 Temperature 99.1 F Pulse Rate 68 Respiratory Rate 16 22 H Blood Pressure 139/70 Pulse Oximetry 100 97 97 Oxygen Delivery Nasal Cannula Autopap Oxygen Flow Rate 2 Fraction of Inspired Oxygen 07/23/25 05:35 07/23/25 05:40 07/23/25 06:00 Temperature 97.7 F Pulse Rate 99 99 89 Respiratory Rate 20 20 16 Blood Pressure 143/85 H Pulse Oximetry 95 Oxygen Delivery Oxygen Flow Rate Fraction of Inspired Oxygen Intake/Output Intake/Output: Intake & Output 07/20/25 07/21/25 07/22/25 07/23/25 23:59 23:59 23:59 23:59 Intake Total 1720 3090 600 Output Total 1500 1250 1500 Balance 220 1840 -900 Meds/Results Medications: Active Medications Generic Name Dose Route Start Last Admin Trade Name Freq PRN Reason Stop Dose Admin Acetaminophen 650 mg 07/20/25 20:26 07/21/25 20:59 Acetaminophen 325 Mg Tablet PO 650 mg Q4H PRN Administration Mild Pain (1-3) or Fever Hydrocodone Bitart/Acetaminophen 1 tab 07/22/25 15:59 07/23/25 05:48 Hydrocodone/Acetaminophen (*Crx) 5-325 Mg Tablet PO 1 tab Q6H PRN Administration Pain Rated 4-6 Acetylcysteine 600 mg 07/21/25 08:13 Acetylcysteine 20% Inhal Soln 800 Mg/4 Ml Vial INHALATION Q4H PRN Shortness Of Breath Albuterol 2.5 mg 07/21/25 03:22 07/23/25 05:35 Albuterol Sulfate Neb 2.5 Mg/3 Ml Inh INHALATION 2.5 mg Q4HRT PRN Administration Shortness Of Breath Albuterol 1 - 2 puff 07/21/25 12:00 Albuterol Sulfate (*Sp) Aerosol 1 Puff INHALATION Q4HRT PRN Shortness Of Breath Atorvastatin Calcium 80 mg 07/21/25 21:00 07/22/25 20:13 Atorvastatin 40 Mg Tablet PO 80 mg QHS KIM Administration Furosemide 40 mg 07/21/25 09:00 07/22/25 16:35 Furosemide 40 Mg Tablet PO 40 mg BID [facility] Administration Levothyroxine Sodium 25 mcg 07/21/25 09:00 07/23/25 05:48 Levothyroxine Sodium 25 Mcg Tablet PO 25 mcg DAILY@0630 [facility] Administration Miscellaneous Information 1 each 07/21/25 00:01 07/22/25 23:17 Albuterol Updraft Is Duplicate Therapy With Inhaler. Hold One? XX 08/20/25 00:00 Not Given CLARIFY [facility] Rivaroxaban 15 mg 07/21/25 09:00 07/22/25 09:31 Rivaroxaban 15 Mg Tablet PO 15 mg DAILY [facility] Administration Spironolactone 12.5 mg 07/21/25 09:00 07/22/25 09:31 Spironolactone 12.5 Mg Tablet PO 12.5 mg DAILY [facility] Administration Labs Labs: Laboratory Results - last 24 hr 07/23/25 05:26 WBC 5.1 RBC 2.79 L Hgb 8.7 L Hct 28.2 L MCV 101.1 H MCH 31.2 MCHC 30.9 L RDW 15.3 H Plt Count 246 MPV 10.9 H Sodium 135 L Potassium 3.7 Chloride 98 Carbon Dioxide 34 H Anion Gap 3 L BUN 13 Creatinine 0.78 Estim Creat Clear Calc 138 Estimated GFR > 60 Glucose 105 Calcium 8.4 Quality VTE Prophylaxis VTE prophylaxis: pharmacologic ordered (Once his Xarelto has been restarted.)
--- NOTE | 2025-07-23 10:23 | PCOTNOTE ---
Patient unavailable for therapy at this time. Patient has his sisters and Care Coordination in the room at this time. Patient and family in discussions about his plans and what is next. Will try back this afternoon.
[2025-07-23] MEDS: FUROSEMIDE 40 MG TABLET PO ×2 (10:58→16:58)
--- NOTE | 2025-07-23 14:54 | PCSTNOTE ---
Pt's MBS was cancelled due to pt over the weight restriction for x-ray chair. Treatment was attempted at 14:45; however, pt with OT. ST updated RN on recommendations and ST plan of care. ST to follow up with pt to provide exercises and ensure tolerance of recommended diet.
--- NOTE | 2025-07-23 15:24 | PCPTNOTE ---
Attempted to see patient for PT, however patient just worked with OT and declined PT. Patient reported he was to worn out from working with OT.
[2025-07-23] MEDS: RIVAROXABAN 15 MG TABLET PO (16:58)
[2025-07-23] MEDS: ATORVASTATIN 40 MG TABLET 80 MG PO (20:41)
[2025-07-24 01:44] VITALS: O2SAT 96
[2025-07-24 06:00] VITALS: BP 124/65; PULSE 87; RESP 18; TEMP 36.1; O2SAT 97
[2025-07-24] MEDS: LEVOTHYROXINE SODIUM 25 MCG TABLET PO (06:35)
[2025-07-24] MEDS: HYDROcodone/acetaminophen (*CRX) 5-325 MG TABLET 1 TAB PO (06:35)
[2025-07-24 08:00] VITALS: O2SAT 96
[2025-07-24] MEDS: FUROSEMIDE 40 MG TABLET PO ×2 (10:02→17:00)
--- NOTE | 2025-07-24 11:59 | PM.DS ---
DS: Admitting Diagnosis Discharge Date 07/24/2025 Admitting Diagnosis s/p, hernia repair, wound care DS: Discharge Diagnosis Discharge Diagnosis (1) S/P hernia repair: Code(s): Z98.890 - Other specified postprocedural states; Z87.19 - Personal history of other diseases of the digestive system Status: Acute Assessment and Plan: Was released from [facility] to [facility] rehab facility, however wound VAC was not available to him at the time. A wet-to-dry dressing was applied. The patient and the family are not satisfied with the care they received at [facility], would like to find another facility that can manage the wound VAC. The ED physician did contact [facility] surgery department and they were okay with the patient having wet to dry dressings for now. the patient has completed all of his antibiotics as prescribed. continue with daily wet-to-dry dressings for now. wound care consult has been placed. wet to dry dressing was intact at the time of assessment. Care coordination consulted for placement to facility that can manage Wound VAC - referrals sent to [facility], pending acceptance. (2) COPD (chronic obstructive pulmonary disease): Qualifiers: COPD type: unspecified COPD Qualified Code(s): J44.9 - Chronic obstructive pulmonary disease, unspecified Code(s): J44.9 - Chronic obstructive pulmonary disease, unspecified Status: Acute Assessment and Plan: On oxygen at 2 L per nasal cannula baseline continue with home medications (3) Hypothyroidism: Qualifiers: Hypothyroidism type: acquired Qualified Code(s): E03.9 - Hypothyroidism, unspecified Code(s): E03.9 - Hypothyroidism, unspecified Status: Acute Assessment and Plan: resume levothyroxine (4) Congestive heart failure: Code(s): I50.9 - Heart failure, unspecified Status: Acute Assessment and Plan: resume his Lasix, Coreg, and spironolactone (5) Hypertension: Qualifiers: Hypertension type: essential hypertension Qualified Code(s): I10 - Essential (primary) hypertension Code(s): I10 - Essential (primary) hypertension Status: Acute Assessment and Plan: current blood pressure is 122/70. resume home medications (6) Atrial fibrillation: Qualifiers: Atrial fibrillation type: unspecified Qualified Code(s): I48.91 - Unspecified atrial fibrillation Code(s): I48.91 - Unspecified atrial fibrillation Status: Acute Assessment and Plan: the patient is currently in sinus rhythm. continue with Xarelto continue with rate controlling medications once his home medications have been reconciled. (7) Dyslipidemia: Code(s): E78.5 - Hyperlipidemia, unspecified Status: Acute Assessment and Plan: Continue with atorvastatin (8) CKD (chronic kidney disease) stage 3, GFR 30-59 ml/min: Qualifiers: Chronic kidney disease stage 3 subtype: stage 3b (GFR 30-44) Qualified Code(s): N18.32 - Chronic kidney disease, stage 3b Code(s): N18.30 - Chronic kidney disease, stage 3 unspecified Status: Acute Assessment and Plan: His BUN is 25 and creatinine is 0.93 which has improved from his last values on 07/01/2025. His GFR is now greater than 60 with a previous value of 34. (9) Anemia: Code(s): D64.9 - Anemia, unspecified Status: Acute Assessment and Plan: Monitor for any s/s of bleeding as he has been on blood thinners, monitor cbc DS: Summary Hospital Course Reason for hospitalization: Wound care, s/p hernia repair Hospital Course: This is a 64-year-old patient who was had multiple hernia repairs and has COPD chronically on oxygen at 2 L per nasal cannula. The patient was just discharged from [facility] in the afternoon. The patient was transferred to [facility] rehab facility. However they had no supplies for his wound VAC. his wound VAC was removed and wet-to-dry dressings were initiated. The patient has a large wound from a recent infected hernia repair. He is asymptomatic and has completed his entire course of antibiotics. The patient and the family were not satisfied with the care they were receiving at the rehab facility and therefore the patient was transferred to the nearest hospital. His H&H is now 8.9 and 28.1 from his previous value of 11-25 that was 12.7 and 40.2. His sodium was found to be 132. His BUN is 25 however his baseline is 30 stool 40s typically. The ER provider did call [facility] to explain the situation and the surgeon stated that the patient can continue with wet-to-dry dressings for now. The patient is being admitted to observation status on the date of service some at 07/20/2025. Hospital Course: The patient is a 64-year-old male with a complex medical history including multiple prior hernia repairs, COPD on chronic home oxygen, heart failure, chronic kidney disease stage 3, hypothyroidism, atrial fibrillation on anticoagulation, and chronic anemia. He was recently discharged from [facility] following an infected hernia repair, during which a wound VAC was placed. Upon transfer to a rehabilitation facility, it was discovered that the facility lacked the necessary supplies to maintain the wound VAC, prompting removal of the device and initiation of wet-to-dry dressings. The patient and his family were dissatisfied with the care at the rehab facility and requested transfer to the hospital for further management. On admission, he was asymptomatic, afebrile, and hemodynamically stable, with a large mid-abdominal wound covered by an intact wet-to-dry dressing and no evidence of active drainage or infection. Laboratory evaluation revealed stable chronic anemia (Hgb 8.7?8.9 g/dL), mild hyponatremia, and improved renal function compared to baseline. His home medications, including anticoagulation and heart failure therapies, were resumed as appropriate. Wound care and care coordination teams were consulted to facilitate ongoing wound management and placement at a facility capable of managing a wound VAC. Throughout his hospital stay, the patient remained stable on 2 L oxygen via nasal cannula, with no new complaints or complications. He completed his prescribed antibiotics prior to admission, and there were no signs of recurrent infection. The abdominal wound continued to be managed with daily wet-to-dry dressings per surgical recommendations, and the patient was comfortable and cooperative during his stay. Discharge planning focused on placement in a facility equipped for advanced wound care. Patient was accepted at [facility] and insurance was authorized and patient was cleared for discharge. Patient is otherwise hemodynamically stable - to be discharged now. Status at Discharge Functional status at discharge: independent ambulation Overall status at discharge: patient is back to baseline Time Spent with Patient Time attestation: Total time spent providing and/or coordinating discharge services: 28 Exam Const: General: cooperative, comfortable, no acute distress, well developed and awake Orientation/consciousness: oriented to person, oriented to place, oriented to time and patient oriented x3 Limitations: no limitations HENMT: Head: normal to inspection, No palpable skull fracture present, normocephalic, atraumatic and abrasion Ears: hearing grossly normal bilaterally Eyes: General: appearance normal, both eyes and all related structures Alignment and Position: alignment normal Pupils: Equal, round and reactive pupils present EOM: EOMs intact bilaterally Neck: Neck: normal visual inspection and full ROM Chest: Chest palpation & inspection: normal inspection of the chest Resp: Effort & Inspection: normal respiratory effort Auscultation: clear to auscultation bilaterally Cardio: Palpation: normal PMI Rate: regular rate Rhythm: regular rhythm Heart sounds: S1 normal heart sound present and S2 normal heart sound present GI: Inspection: normal to inspection Auscultation: normal bowel sounds Rectal Exam: deferred Other: Large abdominal wound noted to mid abdomen her. Wet to dry dressing intact. No drainage noted this time. Packing not removed. : General: Yes no CVA tenderness Back/Spine/Pelvis: Back: no CVA tenderness Skin: General skin exam: normal color Lesions: no lesions Rashes: no rashes Trauma: no lacerations or abrasions Wounds: no wounds Hair: normal Nails: normal Neuro: General: oriented to person, oriented to place, oriented to time and patient oriented x3 Cranial nerves: Yes Equal, round and reactive pupils present and Yes Normal hearing present Cognition (Neuro): normal cognition Speech: normal speech Gait exam (Neuro): Normal gait present Motor exam (neuro): 5/5 motor strength present throughout Sensory Exam: normal sensation Extrem: General: normal to inspection Right upper extremity: normal to inspection and shoulder/upper arm Left upper extremity: normal to inspection and shoulder/upper arm Right lower extremity: normal to inspection Left lower extremity: normal to inspection Psych: Appearance: grossly normal Mental Status: mental status grossly normal Speech and movement: Normal speech and movement present Affect: normal affect Attitude: cooperative Thought process: Normal thought process present Insight: Good insight present (Psych) Judgement: Good judgement present (Psych) Discharge Plan Discharge Attending physician on discharge: Robert Smith Consulting providers: Duke Gonzalez Discharging Clinician: Duke Gonzalez Anticipated Discharge Date/Time: 07/24/25 11:58 Patient Disposition: SNF Activity: as tolerated Diet: regular Discharge Instructions: Discharge disposition: [facility] Take medications as prescribed Monitor blood pressures Take caution while standing, rising, or moving Change positions slowly taking a break between each position change If you standing feel dizzy sit back down and take a break Encouraged to continue with yearly vaccinations Return to the emergency department if you develop sudden shortness of breath, chest pain, nausea, vomiting, upset stomach or intractable diarrhea Return to the emergency department if you develop fever greater than 101.5 Follow-up with the primary care physician within 1-2 weeks Thank you for [facility] for your healthcare needs Patient Instructions: Antibiotic Form, Rivaroxaban (By mouth) Patient Language: Frisian Stand Alone Forms: General Discharge Information Follow-up/Referrals: Annia Chung APRN [Primary Care Provider, Family Practice] Discharge Medications: Continued acetylcysteine 200 mg/mL (20 %) solution 3 ml inhalation Q4H albuterol sulfate 90 mcg/actuation HFA aerosol inhaler See Rx Instructions .ROUTE .COMPLEX Qty: 8.5 3RF Dose Instruction: INHALE 1 TO 2 PUFFS BY MOUTH EVERY 4 TO 6 HOURS NEEDED FOR SHORTNESS OF BREATH OR WHEEZING Rx Instructions: INHALE 1 TO 2 PUFFS BY MOUTH EVERY 4 TO 6 HOURS NEEDED FOR SHORTNESS OF BREATH OR WHEEZING spironolactone 25 mg tablet 12.5 mg PO DAILY Qty: 90 2RF Xarelto 15 mg tablet 15 mg PO DAILY Qty: 90 1RF Rx Instructions: must administer with evening meal atorvastatin 80 mg tablet 80 mg PO QHS Qty: 90 3RF furosemide 40 mg tablet 40 mg PO BID Qty: 180 1RF levothyroxine 25 mcg tablet 25 mcg PO DAILY Qty: 90 1RF budesonide-formoterol [Symbicort] 160-4.5 mcg/actuation HFA aerosol inhaler 2 puff inhalation BID Qty: 10.2 5RF Date of admission: 07/20/25 21:09 Primary Care Provider: Annia Chung Admitting Provider: Robert Smith Attending physician on admission: Robert Smith Condition: Stable Quality VTE Prophylaxis VTE prophylaxis: pharmacologic ordered (Once his Xarelto has been restarted.)
--- NOTE | 2025-07-24 13:02 | PCOTNOTE ---
Patient states he is being released today to go to Rehabilitation Facility. Patient verbalized he is awaiting the ambulance to come pick him up and declines therapy this afternoon.
[2025-07-24 14:00] VITALS: BP 146/78; PULSE 72; RESP 18; TEMP 36.6; O2SAT 93
[2025-07-24] MEDS: RIVAROXABAN 15 MG TABLET PO (17:01)
--- OUTSIDE RECORDS SUMMARY | 2025-07-31 08:38 | XMS_ITS | Clinical Summary ---
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 Role Phone Unavailable Primary Care Provider Unavailabl e Social History Tobacco Use Types Packs/Day Years Used Date Smoking Tobacco: Never Assessed Sex and Gender Information Value Date Recorded Sex Assigned at Not on file Legal Sex Male 11:54 AM EST Gender Identity Not on file Sexual Orientation Not on file Plan of Treatment Health Maintenance Due Date Last Done Comments CT Colonography 1958 Colonoscopy 1958 Colorectal Cancer Screening 1958 FIT-DNA (Cologuard) 1958 FIT 1958 FOBT 1958 Sigmoidoscopy 1958 Annual Visit Topic 1959 MMR Vaccines (1 of 1 - Stand [place] series) 1959 Hepatitis C Screening 1976 DTaP/Tdap/Td Vaccines (1 - Tdap) 1977 Pneumococcal Vaccine: 65+ Ye ars (1 of 2 - PCV) 2008 PSA Test 2013 HIB Vaccines Aged Out No longer eligi ble based on patient's age to complete this topic HPV Vaccines Aged Out No longer eligi ble based on patient's age to complete this topic Hepatitis A Vaccines Aged Out No long er eligible based on patient's age to complete this topic Hepatitis B Vaccines Aged Out No long er eligible based on patient's age to complete this topic IPV Vaccines Aged Out No longer eligi ble based on patient's age to complete this topic Meningococcal Vaccine Aged Out No earnestine brigid eligible based on patient's age to complete this topic
--- OUTSIDE RECORDS SUMMARY | 2025-07-31 08:38 | XMS_ITS | Data Portability ---
Author Organization [facility] OFFICE Address [address] [place] [address] Care Team Providers Care People Greeter Name Role Phone ASHLEY FONTANEZ Primary Care Provider ASHLEY FONTANEZ Referring Provider [phone] [place] KC Primary Care Provider [phone] Assessment Encounter Date Assessment Date Assessment LastModified by Organization Details LastModified Time 06/27/2020 06/27/2020 Discussed with patient findings, diagnosis, and prognosis. Discussed evaluation and treatment options including risks and benefits with patient, and patient expressed understanding. The following interventions were recommended: heart healthy low-fat, low-sodium diet, continue regular exercise, maintain appropriate weight, continue current medications, and medical follow-up as noted. [email or web address] Not available 06/26/2020 17:23:26 Plan of Treatment Reminders Order Date Submit Date Provider Last Modified By Organization Details Last Modified Time Details Appointments None recorded. Lab None recorded. Referral None recorded. Procedures None recorded. Surgeries None recorded. Imaging None recorded. Medication Orders atorvastat in 80 mg tablet 2021 022 [facility] #[id number], [address], [id number], 16:02:39 carvedilol 25 mg tablet 2021 022 [facility] #[id number], [address], [place], [id number], 16:02:40 furosemide 40 mg tablet 2021 [facility] #[id number], [address], [place], [id number], 2 16:02:42 losartan 100 mg tablet 2021 [facility] #[id number], [address], [place], [id number], 2 16:02:42 magnesium oxide 400 mg (241.3 mg magnesium) tablet 2021 [facility] #89147, [address], [place], [id number], 2 16:02:38 spironolac tone 25 mg tablet 2021 [facility] #08844, [address], [place], [id number], 2 16:02:39 Xarelto 15 mg tablet 2021 [facility] #73053, [address], [place], [id number], 2 16:02:38 Xarelto 15 mg tablet 2019 [facility] #21685, [address], [place], [id number], 0 12:02:42 atorvastat in 80 mg tablet 2019 [facility] #93022, [address], [place], [id number], 0 12:04:37 carvedilol 25 mg tablet 2019 [facility] #65788, [address], [place], [id number], 0 12:02:48 furosemide 40 mg tablet 2019 [facility] #68466, [address], [place], [id number], 0 12:03:27 magnesium oxide 400 mg (241.3 mg magnesium) tablet 2019 [facility] #75749, [address], [place], [id number], 0 12:03:31 losartan 100 mg tablet 2019 [facility] #97250, [address], [place], [id number], 0 12:03:33 spironolac tone 25 mg tablet 2019 [facility] #32627, [address], [place], [id number], 0 12:04:37 Patient TargetsNo targets recorded. Patient Instructions Encounter Date Encounter Id Patient Instructions Last Modified By Organization Details Last Modified Time 06/27/2020 [id number] elevated blood pressure: care instructions [email or web address] Not [...] pressure [email or web address] Not available 06/27/2020 12:02:36 01/16/2021 [id number] sleep apnea: car e instructions [email or web address] Not available 01/16/2021 14:33:47 dizziness: care instructions [email or web address] Not available 01/16/2021 14:33:47 When You Want to Lose Weight: Care Instructions [email or web address] Not available 01/16/2021 14:33:48 atrial fibrillation: care instructions [email or web address] Not available 01/16/2021 14:33:48 high blood pressure: care instructions [email or web address] Not available 01/16/2021 14:33:48 learning about high blood pressure [email or web address] Not available 01/16/2021 14:33:48 Exercise advised Low cholesterol diet advised Low sodium diet advised [email or web address] Not available 01/16/2021 14:33:08 Scribed by Luann Guillory [facility] [email or web address] Not available 01/16/2021 14:33:11 08/14/2021 [id number] sleep apnea: car e instructions [email or web address] Not [...] Details Recorded Time History of hyperten nasima 654475882 Active 2013 Ashwin Awankelsea [place], [place] - [facility] 6 12:34:34 Atrial fibrilla tion 15181899 Active 2013 Ashwin García [place], [place] - [facility] 6 12:35:21 Pulmonar y embolism 90226172 Active 2015 Initially diagnosed in 2001 ,He was in cou[place] Ashwin [place] - [facility] 6 12:36:45 Congesti ve heart failure 22205975 Completed 201512/03/2015 Steven [place] [facility] 6 12:23:19 Obstruct ester sleep apnea syndrome 74869386 Active 2015 on CPAP Lynn [place] [facility] 3 17:52:12 History of deep vein thrombos is 396844456 Active 2015 Initially in 2001,2002 Lvmargarita [place], [place] - [facility] 6 12:39:30 Morbid obesity 274354999 Active 2015 for the last 10 years 195-230 Ibs till he was 43 then he gained to more than 300 Ibs Lvmargarita García [place]oud[place] [facility] 6 12:43:24 Gastroes ophageal reflux disease 118436296 Active 2015 Ashwin [place], [place] - [facility] 6 12:42:09 [facility] hyperten nasima 94426575 Active 2016 [place] [facility] 3 17:51:49 Dizzines s 304546688 Active 2017 Steven [place] [facility] 8 15:06:32 Kidney disease 43814515 Active 2017 [place] [facility] 8 16:43:48 Chronic kidney disease 864840298 Active 2020 Bailey [place] [facility] 17:51:45 Anemia 938586211 Active 2020 Bailey [place] [facility] 15:16:19 Anxiety 08767122 Active 2020 Bailey [place] [facility] 15:16:27 Hyperlip idemia 71383317 Active 2020 [place] [facility] 17:51:51 Hypothyr oidism 30267038 Active 2020 [place] [facility] 17:51:55 Osteoart hritis 708254552 Active 2020 Bailey [place] [facility] 15:17:24 Problem Notes None recorded. Medical Equipment None Reported. Allergies Allergen ID Allergen Name Allergen Category Reaction Reaction Severity Criticality Documentation Date Start Date Code Code System Note Provider Name and Address Organization Details Recorded Time 03104 bacitraci n medicatio n Not available Not available Not available 07/09/2021 1291 RxNorm Bailey [place], [place] - [facility] 15:17:49 83059 neomycin medicatio n Not available Not available Not available 07/09/2021 7299 RxNorm Lynn [place] [facility] 15:17:59 90683 polymyxin B medicatio n Not available Not available Not available 07/09/2021 8536 RxNorm Bailey [place] [facility] 15:18:10 52554 propylene glycol medicatio n Not available Not available Not available 07/09/2021 61459 RxNorm [place], [place] [facility] [...] cm 80 /min 91 % 51.5 kg/m2 543695. 1 g 125/79 mm[Hg] CURT KHOURY [facility] 1 14:04:09 Date Recorded Body height Body mass index (BMI) Body weight Heart rate Oxygen saturation Systolic And Diastolic Provider Name and Address Organization Details Last Updated DateTime 2 182.88 cm 47.1 kg/m2 389011. 55 g 83 /min 93 % 136/64 mm[Hg] Bobbi Greene [facility] 2 15:26:34 Date Recorded Body height Heart rate Systolic And Diastolic Provider Name and Address Organization Details Last Updated DateTime 06/27/2020 182.88 cm 71 /min 127/89 mm[Hg] Ema Bran [facility] 06/27/2020 11:18:22 Date Recorded Body height Body mass index (BMI) Body weight Oxygen saturation Heart rate Systolic And Diastolic Provider Name and Address Organization Details Last Updated DateTime 2 182.88 cm 51.5 kg/m2 850116. 1 g 93 % 103 /min 132/86 mm[Hg] SCOTT LUNA [facility] 2 16:02:12 Date Recorded Body height Body mass index (BMI) Body weight Heart rate Oxygen saturation Systolic And Diastolic Provider Name and Address Organization Details Last Updated DateTime 1 182.88 cm 48.8 kg/m2 475138. 25 g 77 /min 95 % 140/80 mm[Hg] Vanesas Sousa [facility] 1 15:33:00 Social History Question Answer Notes LastModified by Organizat ion Details LastModified Time Tobacco Smoking Status Never Smoker Lynn choudhary [facility] 12/01/2015 20:25:14 Do You Have An Advance Directive? Yes Information not available 12/03/2015 What Type Of Diet Are You Following? REGULAR Information not available 12/03/2015 What Was The Date Of Your Most Recent Tobacco Screening? 07/07/2018 Information n ot available 03/23/2019 How Much Tobacco Do You Smoke? No Information not available 09/26/2019 General Stress Level Medium [email or web address] Information not available 12/03/2015 How Many Years [...] 09/26/2019 What is your exercise level? None [email or web address] Information not available 12/03/2015 Mental Status None [...] N Congenital Heart Disease N COPD N Pacemaker N Peripheral Arterial Disease N TIA N Genitourinary Disease N Gastrointestinal Disease N Deep Vein Thrombosis Y Diabetes N Cardiomyopathy N Blood Clot Y Myocardial Infarction N Congestive Heart Failure (CHF) Y Valvular Heart Disease N Hyperlipidemia N Cancer N Stroke N Atrial Flutter N Carotid Disease N Sleep Apnea Y Sleep Disorder N GERD/Reflux Y High Cholesterol N Warfarin Management N Liver Disease N Valvular Abnormalities N Heart Disease Y Hypertension Y Kidney Disease N Hematologic Disease N Past Encounters Encounter ID Performer Location Encounter Start Date Encounter Closed Date Diagnosis/Indication Diagnosis SNOMED-CT Code Diagnosis ICD10 Code Diagnosis IMO Codes Diagnosis Note [id number] MD Lilliam Fernandez Office [address] [place] [address] 12/03/2015 11:12:59 12/03/2015 12:06:15 Atrial fibrillation 36078281 I48.91 History of hypertension 978363832 Z86.79 Patient's blood pressure is not well-contr [...] moderate LAE. History of deep vein thrombosis 696057187 Z86.718 cont Xarelto Morbid obesity 232196546 E66.01 Pt was referred for gastric bypass surgery and awaits insurance approval for that reason. Will request copy of lipid panel and BMP from . According to pt his HgbA1C was normal. Obstructiv e sleep apnea syndrome 37054169 G47.33 on CPAP Pulmonary embolism 33350 003 I26.99 At [facility] ed risk for cardiovascular event 643349332 Z78.9 Essential hypertension 19679622 I10 [id number] Steven Perez MD [facility] [address] [place] [address] 05/18/2016 11:15:07 05/19/2016 12:53:44 Atrial fibrillation 67457117 I48.91 Discussed diagnosis of atrial fibrillati on, [...] risks reviewed with patient. History of hypertension 770901785 Z86.79 Patient's blood pressure is somewhat well-contr [...] moderate LAE. History of deep vein thrombosis 497352133 Z86.718 Continue Xarelto. Morbid obesity 197971252 E66.01 Pt was referred for gastric bypass surgery and awaits insurance approval for that reason. Will request copy of lipid panel and BMP from . According to pt his HgbA1C was normal. Obstructiv e sleep apnea syndrome 60053846 G47.33 on CPAP. continue. Pulmonary embolism 60869 003 I26.99 On Xarelto. [id number] Steven Perez MD [facility] [address] [place] [address] 07/20/2016 11:11:58 07/21/2016 09:41:49 History of hypertension 035670463 Z86.79 Patient's blood pressure is not well-contr [...] LAE.Will arrange for BP machine. Pulmonary embolism 95035 003 I26.99 On Xarelto. Obstructiv e sleep apnea syndrome 43505081 G47.33 on CPAP. continue. Morbid obesity 382498427 E66.01 Pt was referred for gastric bypass [...] with patient. History of deep vein thrombosis 116064934 Z86.718 Continue Xarelto. Essential hypertension 59397696 I10 [id number] Juan Daniel Kelsey MD [facility] [address] [place] [address] 11/05/2016 14:57:19 11/06/2016 12:50:13 Atrial fibrillation 29774856 I48.91 Discussed diagnosis of atrial fibrillati on, [...] risks reviewed with patient. History of hypertension 585855531 Z86.79 Patient's blood pressure is relatively well-contr [...] next appt History of deep vein thrombosis 844023496 Z86.718 Continue Xarelto. Morbid obesity 746124038 E66.01 Pt was referred for gastric bypass surgery and awaits insurance approval for that reason. his HgbA1C was normal. Obstructiv e sleep apnea syndrome 00263201 G47.33 on CPAP. will refer for pulmonary evaluation Pulmonary embolism 15578 003 I26.99 On Xarelto. [id number] Juan Daniel Kelsey MD [facility] [address] [place] [address] 06/03/2017 16:10:19 06/03/2017 17:02:55 Atrial fibrillation 12893381 I48.91 Discussed diagnosis of atrial fibrillati on, [...] risks reviewed with patient. History of hypertension 436208781 Z86.79 Patient's blood pressure is relatively well-contr olled on present medical therapy. Patient is tolerating , without difficulty , the current medication s. I have not made changes to the current regimen: Patient is advised to maintain a blood pressure diary. ECHO showed normal LV systolic function and diastolic dysfunctio n.Add Metolazone 2.5 mg PRN History of deep vein thrombosis 266417466 Z86.718 Continue Xarelto. Morbid obesity 367952434 E66.01 Pt was referred for gastric bypass surgery and awaits insurance approval for that reason. his HgbA1C was normal. Obstructiv e sleep apnea syndrome 16228047 G47.33 on CPAP. will refer for pulmonary evaluation Pulmonary embolism 06734 003 I26.99 On Xarelto. Essential hypertension 60869729 I10 [id number] Steven Perez MD [facility] [place] [address] 10/28/2017 16:54:47 10/29/2017 13:21:20 Essential hypertension 85892406 I10 Patient's blood pressure is relatively well-contr [...] with patient. History of deep vein thrombosis 749451713 Z86.718 Continue Xarelto. Morbid obesity 355684803 E66.01 Still considerin g Gastric bypass surgery Obstructiv e sleep apnea syndrome 92653458 G47.33 on CPAP. will refer for pulmonary evaluation Pulmonary embolism 57203 003 I26.99 On Xarelto. [id number] Stveen Perez MD [facility] [address] [place] [address] 02/03/2018 13:49:22 02/04/2018 11:53:57 Essential hypertension 26636850 I10 Patient's blood pressure is relatively well-contr [...] with patient. History of deep vein thrombosis 160144164 Z86.718 Continue Xarelto. Morbid obesity 735451723 E66.01 Still considerin g Gastric bypass surgery Obstructiv e sleep apnea syndrome 70568645 G47.33 on CPAP. will refer for pulmonary evaluation Pulmonary embolism 77428 003 I26.99 On Xarelto. Dizziness 465198398 R42 probably due to dehydratio n and use of diuretics. Pt had diarrhea.w ill check lab results from outside facility.P t was advised to cut down diuretics especially when is hot outsidewil l check carotidsif symptoms not improve consider neurology evaluation [id number] Steven Perez MD [facility] [address] [place] [address] 03/10/2018 14:24:13 03/17/2018 15:02:56 Essential hypertension 27778862 I10 Patient's blood pressure is relatively well-contr [...] with patient. History of deep vein thrombosis 846371657 Z86.718 Continue Xarelto. Morbid obesity 355403666 E66.01 Still considerin g Gastric bypass surgery Obstructiv e sleep apnea syndrome 76148750 G47.33 on CPAP. will refer for pulmonary evaluation Pulmonary embolism 66798 003 I26.99 On Xarelto. Dizziness 824750290 R42 probably due to dehydratio n and use of diuretics. Pt had diarrhea.w ill check lab results from outside facility.P t was advised to cut down diuretics especially when is hot outsidewil l cut down Carvedilol . Previous Cr was mildly elevated (1.5). will review labs including chemistryc arotid US showed only minimal plaqueif symptoms not improve consider neurology evaluation [id number] Steven Perez MD [facility] [place] [address] 05/05/2018 15:03:46 05/05/2018 16:57:36 Essential hypertension 20511571 I10 Patient's blood pressure is relatively well-contr [...] 15 QD History of deep vein thrombosis 593311086 Z86.718 Continue Xarelto. Morbid obesity 105458373 E66.01 Still considerin g Gastric bypass surgery Obstructiv e sleep apnea syndrome 85260342 G47.33 on CPAP. will refer for pulmonary evaluation Pulmonary embolism 68887 003 I26.99 On Xarelto. Dizziness 412198267 R42 probably due to dehydratio n and use of diuretics. Pt had diarrhea.w ill check lab results from outside facility.P t was advised to cut down diuretics especially when is hot outsidewil l cut down Carvedilol . Previous Cr was mildly elevated (1.5). will review labs including chemistryc arotid US showed only minimal plaqueif symptoms not improve consider neurology evaluation Kidney disease 90444866 N08 recent Cr elevated (1.57). previous 2 yrs ago 1.1.If repeated still elevated consider nephrology evaluation Hypertensive disorder 38 443623 I10 [id number] Steven Perez MD [facility] [place] [address] 07/07/2018 14:29:43 07/07/2018 15:41:03 Essential hypertension 56791689 I10 Patient's blood pressure is well-contr olled on present medical therapy. Patient is tolerating , without difficulty , the current medication s. I have not made changes to the current regimen. Patient is advised to maintain a blood pressure diary. Cont low Na diet. Atrial fibrillation 0550 0779 I48.91 Discussed diagnosis of atrial fibrillati on, [...] 15 QD History of deep vein thrombosis 600833279 Z86.718 Continue Xarelto. Morbid obesity 098750019 E66.01 Still considerin g Gastric bypass surgery Obstructiv e sleep apnea syndrome 60353095 G47.33 on CPAP. will refer for pulmonary evaluation Pulmonary embolism 94714 003 I26.99 On Xarelto. Dizziness 589890714 R42 resolved probably due to dehydratio n and use of diuretics and diarrhea. Pt was advised to cut down diuretics especially when is hot outside will cut down Carvedilol . Previous Cr was mildly elevated (1.5). will review labs including chemistryc arotid US showed only minimal plaqueif symptoms not improve consider neurology evaluation Kidney disease 24933237 N08 recent Cr elevated (1.57). previous 2 yrs ago 1.1.If repeated still elevated consider nephrology evaluation Hypertensive disorder 38 060006 I10 resolved [id number] Steven Perez MD [facility] [address] [place] [address] 03/09/2019 16:59:48 03/09/2019 18:10:50 Essential hypertension 50122283 I10 Patient's blood pressure is well-contr olled on present medical therapy. Patient is tolerating , without difficulty , the current medication s. I have not made changes to the current regimen. Patient is advised to maintain a blood pressure diary. Cont low Na diet. Atrial fibrillation 8849 1198 I48.91 Discussed diagnosis of atrial fibrillati on, [...] 15 QD History of deep vein thrombosis 458704815 Z86.718 Continue Xarelto. Morbid obesity 028968333 E66.01 Still considerin g Gastric bypass surgery Obstructiv e sleep apnea syndrome 39513929 G47.33 on CPAP. will refer for pulmonary evaluation Pulmonary embolism 85586 003 I26.99 On Xarelto. Dizziness 224283573 R42 resolved probably due to dehydratio n and use of diuretics and diarrhea. Pt was advised to cut down diuretics especially when is hot outside will cut down Carvedilol . Previous Cr was mildly elevated (1.5). will review labs including chemistryc arotid US showed only minimal plaqueif symptoms not improve consider neurology evaluation Kidney disease 40938237 N08 recent Cr elevated (1.57). previous 2 yrs ago 1.1.If repeated still elevated consider nephrology evaluation Hypertensive disorder 38 092855 I10 resolved [id number] Steven Perez MD [facility] [address] [place] [address] 09/28/2019 11:41:28 09/28/2019 13:15:17 Essential hypertension 42597633 I10 Patient's blood pressure is well-contr olled [...] 15 QD History of deep vein thrombosis 273145880 Z86.718 Continue Xarelto. Morbid obesity 394655533 E66.01 Still considerin g Gastric bypass surgery Obstructiv e sleep apnea syndrome 30845092 G47.33 on CPAP. will refer for pulmonary evaluation Pulmonary embolism 97617 003 I26.99 On Xarelto. Dizziness 652630048 R42 resolved probably due to dehydratio n and use of diuretics and diarrhea. Pt was advised to cut down diuretics especially when is hot outside will cut down Carvedilol . Previous Cr was mildly elevated (1.5). will review labs including chemistryc arotid US showed only minimal plaqueif symptoms not improve consider neurology evaluation Kidney disease 24345943 N08 recent Cr elevated (1.57). previous 2 yrs ago 1.1.If repeated still elevated consider nephrology evaluation Hypertensive disorder 38 642255 I10 Patient's blood pressure is relatively well-contr olled on present medical therapy. Patient is tolerating , without difficulty , the current medication s. I have not made changes to the current regimen. Patient is advised to maintain a blood pressure diary. Cont low Na diet. [id number] Steven Perez MD [facility] [address] [place] [address] 12/21/2019 10:03:42 12/21/2019 11:14:07 Essential hypertension 62597656 I10 Patient's blood pressure is well-contr olled on present medical therapy. Patient is tolerating , without difficulty , the current medication s. I have not made changes to the current regimen. Patient is advised to maintain a blood pressure diary. Cont low Na diet. Atrial fibrillation 6442 7896 I48.91 Discussed diagnosis of atrial fibrillati on, [...] Holter, ECHO History of deep vein thrombosis 432290402 Z86.718 Continue Xarelto. Morbid obesity 841062908 E66.01 Still considerin g Gastric bypass surgery Obstructiv e sleep apnea syndrome 84743756 G47.33 on CPAP. pulmonary fu Pulmonary embolism 01118 003 I26.99 On Xarelto. Dizziness 751752605 R42 resolved probably due to dehydratio n and use of diuretics and diarrhea. Pt was advised to cut down diuretics especially when is hot outside will cut down Carvedilol . Previous Cr was mildly elevated (1.5). will review labs including chemistryc arotid US showed only minimal plaqueif symptoms not improve consider neurology evaluation Kidney disease 90785097 N08 recent Cr improved (1.22), previous elevated (1.57). previous 2 yrs ago 1.1.If deteriorat es consider nephrology evaluation Hypertensive disorder 38 242505 I10 Patient's blood pressure is well-contr olled on present medical therapy. Patient is tolerating , without difficulty , the current medication s. I have not made changes to the current regimen. Patient is advised to maintain a blood pressure diary. Cont low Na diet.ECHO showed normal LV systolic function and diastolic dysfunctio n. [id number] Steven Perez MD [facility] [address] [place] [address] 06/27/2020 11:11:03 06/27/2020 12:04:28 Essential hypertension 48986625 I10 Patient's blood pressure is well-contr olled [...] Holter, ECHO History of deep vein thrombosis 718564388 Z86.718 Continue Xarelto. Morbid obesity 555450513 E66.01 Still considerin g Gastric bypass surgery Obstructiv e sleep apnea syndrome 10416698 G47.33 on CPAP. pulmonary fu Pulmonary embolism 09525 003 I26.99 On Xarelto. Dizziness 655077974 R42 resolved probably due to dehydratio n and use of diuretics and diarrhea. Pt was advised to cut down diuretics especially when is hot outside will cut down Carvedilol . Previous Cr was mildly elevated (1.5). will review labs including chemistryc arotid US showed only minimal plaqueif symptoms not improve consider neurology evaluation Kidney disease 34836328 N08 recent Cr improved (1.22), previous elevated (1.57). previous 2 yrs ago 1.1.If deteriorat es consider nephrology evaluation Hypertensive disorder 38 134219 I10 Patient's blood pressure is well-contr olled on present medical therapy. Patient is tolerating , without difficulty , the current medication s. I have not made changes to the current regimen. Patient is advised to maintain a blood pressure diary. Cont low Na diet.ECHO showed normal LV systolic function and diastolic dysfunctio n. [id number] Steven Perez MD [facility] [address] [place] [address] 01/16/2021 14:01:33 01/16/2021 14:33:57 Essential hypertension 22939937 I10 Patient's blood pressure is well-contr olled [...] any other new or concerning symptoms. Patient's [id number] Sc score and unadjusted yearly stroke risk is The patient needs anticoagul ation. Patient is to be on and for rate control they will need and patient was advised to take medication as prescribed . Fall precaution s reviewed. Stroke and bleeding risks reviewed with patient. Due to kidney dysfunctio n will cont Xarelto 15 QD, Holter, ECHO History of deep vein thrombosis [id number] Z86.718 on Xarelto Morbid obesity 987143304 E66.01 20 lb weight loss recommende d over the next 2 months Obstructiv e sleep apnea syndrome 28385858 G47.33 Compliant with nightly CPAP use Recommend restablish ing pulmonary Pulmonary embolism 24941 003 I26.99 on Xarelto Dizziness 760266077 R42 resolved Probably due to dehydratio n and use of diuretics and diarrhea. Advised to cut down diuretics especially when is hot outside Carotid US showed only minimal plaque Kidney disease 79222555 N08 Recent Cr 2.2 Recommend nephrology referral [id number] Steven Perez MD [facility] [address] [place] [address] 08/14/2021 15:19:17 08/14/2021 15:48:02 Essential hypertension 36276319 I10 Patient's blood pressure is well-contr olled on present medical therapy. Patient is tolerating , without difficulty , the current medication s. I have not made changes to the current regimen. Patient is advised to maintain a blood pressure diary. Patient was advised to eat a low-sodium diet (2 grams sodium or less daily). Atrial fibrillation 3009 4393 I48.91 Discussed diagnosis of atrial fibrillati on, including pathophysi ology and prognosis. Discussed importance of controllin g blood pressure, exercising regularly, and minimizing alcohol, caffeine, and decongesta nts. Advised patient to seek medical attention for palpitatio ns, chest pain, dizziness or syncope, shortness of breath, or any other new or concerning symptoms. Patient's [id number] Sc score and unadjusted yearly stroke risk [...] next appt History of deep vein thrombosis 977437468 Z86.718 on Xarelto Morbid obesity 220605606 E66.01 20 lb weight loss recommende d over the next 2 months Obstructiv e sleep apnea syndrome 55062216 G47.33 Compliant with nightly CPAP use Recommend restablish ing pulmonary Pulmonary embolism 09464 003 I26.99 on Xarelto Dizziness 154676987 R42 resolved Probably due to dehydratio n and use of diuretics and diarrhea. Advised to cut down diuretics especially when is hot outside Carotid US showed only minimal plaque Kidney disease 73743703 N08 Recent Cr 2.2 [place] [address] Steven Perez MD [facility] [address] [place] [address] 02/12/2022 15:08:25 02/12/2022 15:40:40 Essential hypertension 26708720 I10 Patient's blood pressure is well-contr olled [...] any other new or concerning symptoms. Patient's [id number] Sc score and unadjusted yearly stroke risk [...] next appt History of deep vein thrombosis 832325800 Z86.718 on Xarelto Morbid obesity 404037741 E66.01 20 lb weight loss recommende d over the next 2 months Obstructiv e sleep apnea syndrome 42666255 G47.33 Compliant with nightly CPAP use Recommend restablish ing pulmonary Pulmonary embolism 39192 003 I26.99 on Xarelto Dizziness 062813221 R42 resolved Probably due to dehydratio n and use of diuretics and diarrhea. Advised to cut down diuretics especially when is hot outside Carotid US showed only minimal plaque Kidney disease 29274387 N08 Recent Cr 1.21 [place] [address] Juan Daniel Kelsey MD [facility] [address] [place] [address] 08/13/2022 15:40:45 08/13/2022 16:44:17 Essential hypertension 36077021 I10 Now well controlled Atrial fibrillation 4943 6004 I48.91 Discussed diagnosis of atrial fibrillati on, including pathophysi ology and prognosis. Discussed importance of controllin g blood pressure, exercising regularly, and minimizing alcohol, caffeine, and decongesta nts. Advised patient to seek medical attention for palpitatio ns, chest pain, dizziness or syncope, shortness of breath, or any other new or concerning symptoms. Patient's [id number] Sc score and unadjusted yearly stroke risk [...] next appt History of deep vein thrombosis 168226258 Z86.718 on Xarelto Morbid obesity 999465889 E66.01 20 lb weight loss recommende d over the next 2 months Obstructiv e sleep apnea syndrome 75244651 G47.33 Compliant with nightly CPAP use Recommend re establishi ng pulmonary Pulmonary embolism 81034 003 I26.99 on Xarelto Dizziness 974604042 R42 resolved Probably due to dehydratio n and use of diuretics and diarrhea. Advised to cut down diuretics especially when is hot outside Carotid US showed only minimal plaque Kidney disease 15207599 N08 Recent Cr 1.21 nephrology fu Chronic sy stolic heart failure 526826611 I50.22 resume Lasix at 40 qd Health Concerns Section Related Observation LastModified by Organization Detai ls LastModified Time None Recorded Concern Status LastModified by Organization Details LastModified Time None Recorded Advance Directives Directive Y: Payers Insurance Date Sequence Insurance Name Policy Number Policy Parikh Covered Member ID Parikh Member ID Guarantor Name 08/11/2022 2 [employer] [facility] (MEDICAID HMO) Omar Baldwin [id number] 08/11/2022 3 [place] Omar Baldwin [id number] 03/21/2025 1 [facility] (MEDICARE REPLACEMENT/A DVANTAGE - HMO) [id number] Omar Baldwin [id number] 08/11/2022 2 [place] [facility] Omar Baldwin [id number] 08/11/2022 1 [facility] (MEDICAID HMO) Omar Baldwin [id number] 08/11/2022 1 [place] Omar Baldwin [id number] 08/11/2022 2 [place] [facility] Omar Baldwin [id number] Notes Date Note Type Note Provider Name [...] yr by his PC.He has not seen element setter yet He has been active swimming almost [...] FibrillationReported by Patient 01/16/2021 Due to the [facility] virus mandated precautions for at risk [...] by his PCP. 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 Continues to wear CPAP at night. He is traveling to [facility] in February 2021 for his [...] RV systolic pressure. Atrial fibrillation. Luann Guillory [facility] 01/16/2021 14:33:53 1 text/html [...] by his PCP. 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 Continues to wear CPAP at night. He is traveling to [facility] in February 2021 for his [...] RV systolic pressure. Atrial fibrillation. Steven choudhary [place] - [facility] 08/14/2021 16:34:39 2 text/html Hospitalization Contact RecordReported by Patient Atrial FibrillationReported by Patient 02/12/22CC : Cardiac follow upHPI: [id number] white male with history of HTN, HL, [...] by his PCP. 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 Continues to wear CPAP at night. He is traveling to [facility] in February 2021 for his [...] RV systolic pressure. Atrial fibrillation. Steven Perez [place], [place] - [facility] 02/12/2022 16:02:36 2 text/html Hospitalization Contact RecordReported by Patient Atrial FibrillationReported by Patient 08/13/22CC : Cardiac follow upHPI: [id number] white male with history of HTN, HL, [...] by his PCP. 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 Continues to wear CPAP at night. He is traveling to [facility] in February 2021 for his [...] pressure. Atrial fibrillation. Juan Daniel Kelsey MD [address] [place], [address], [facility] 08/13/2022 16:40:16
--- OUTSIDE RECORDS SUMMARY | 2025-07-31 08:38 | XMS_ITS | Encounter Summary ---
Author Organization [facility] Health Address [address] [place] [address] Care Team Providers Care Identification Officer Name Role Phone Sarkis Fu MD Primary Care Provider [phone] Encounter Details Date Type Department Care Team (Late st Contact Info) Description 07/24/2025 Results Follow-Up [facility] [address] [place] [id number] Fabien Green R, DO [address] [place] [address] [facility] [place], [place] [id number] Social History Tobacco Use Types Packs/Day Years [...] medical care, and heating? Patient declined 07/13/2025 [facility] Occupat ional Health - Occupational Stress [...] any time in the past 12 m [facility], were you homeless or living in a care home (including now)? 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 Gender Identity Not on file Sexual Orientation Not on file documented as of this encounter Functional Status * Is person deaf or have serious [...] Entry Date Author No 07/03/2025 6:15 PM CINDER P[employer] CR[employer] OPERATOR Melvin, Erlinda, RN documented in this encounter Plan of Treatment Upcoming Encounters Date Type Department Care Team (Late st Contact Info) Description 08/08/2025 2:30 PM CINDER P[employer] CRANE OPERATOR Office Visit [facility] - General Surgery [address] [place] [address] documented as of this encounter Visit Diagnoses Not on filedocumented in this encounter Care Teams Identification Officer Relationship Specialty Start Date End Date Sarkis Fu MD [address] [facility] [address] [facility] [address] [place] [address] PCP - General 07/02/14 documented as of this encounter
--- OUTSIDE RECORDS SUMMARY | 2025-07-31 08:38 | XMS_ITS | Clinical Summary ---
Author Organization [facility] [employer] Address [address] [place] [address] Care Team Providers Care Pharmacist Critical Care Name Role Phone Sarkis Fu MD Primary Care Provider Source Comments [facility] [employer],non-owned Affiliates and Associated Physician Practices is amultiple site organization consisting of ambulatory clinics and hospital sitesin [place], [place], [place] and [place]. This disclosure is being madepursuant to the Care Everywhere program and may not contain all information available regarding this patient. Last updated 18.[facility] [employer] Allergies Active Allergy Reactions Criticality Noted Date Comments Uttcwcag-Vcdaigkvpq-Drrfqjzjl Itching,Swelling Low 08/13/2014 Medications * Be aware [...] Encounters Date Type Department Care Team Description 07/24/2025 Travel 07/24/2025 Results Follow-Up [facility] ICU [address] [place] [address] Fabien Green DO 07/03/2025 7:45 AM ELEVATOR REPAIRER Anesthesia Event [facility] [address] [place] [address] Seb Sanchez MD Oh, Sarah, MD 07/03/2025 7:05 AM ELEVATOR REPAIRER - 07/03/2025 9:59 AM ELEVATOR REPAIRER Surgery [facility] [address] [place] [address] Erinn Murillo MD LAPAROTOMY EXPLORATORY, SMALL BOWEL RESECTION, ANASTAMOSIS, WOUND VAC 07/01/2025 8:33 PM ELEVATOR REPAIRER Anesthesia Event [facility] [address] [place] [address] Estrada Mcdermott DO 07/01/2025 8:00 PM ELEVATOR REPAIRER - 07/01/2025 11:04 PM ELEVATOR REPAIRER Surgery [facility] [address] [place] [address] Gregg Swenson DO LAPAROTOMY EXPLORATORY, soft tissue excisional debridement, lysis of adhesions, small bowel resection, abthera placement 07/01/2025 5:24 PM ELEVATOR REPAIRER - 07/20/2025 2:58 PM ELEVATOR REPAIRER Hospital Encounter [facility] ACUTE [address] [place] [address] Carlos Parkinson MD McHale, Matthew J, DO Culhane, John T, MD Tenquist, Jane E, MD Naughton, Daniel J, MD Sensing, Thomas, DO Trauma Discharge Disposition: Half-Way Facility 07/01/2025 Travel from Last 3 Months [...] medical care, and heating? Patient declined 07/13/2025 [facility] - Occupational [...] any time in the past 12 m [facility], were you homeless or living in a custodial (including now)? Patient declined 07/13/2025 Sex and Gender Information Value Date Recorded Sex Assigned at Not on file Legal Sex Male 5:15 PM ELEVATOR REPAIRER Gender Identity Not on file Sexual Orientation Not on file Last Filed Vital Signs Vital Sign Reading Time Taken Comments Blood Pressure 151/76 07/20/2025 2:42 PM ELEVATOR REPAIRER Pulse 82 07/20/2025 12:31 PM ELEVATOR REPAIRER Temperature 36.8 C (98.2 F) 07/20/2025 2:42 PM ELEVATOR REPAIRER Respiratory Rate 18 07/20/2025 12:3 1 PM ELEVATOR REPAIRER Oxygen Saturation 97% 07/20/2025 12: 31 PM ELEVATOR REPAIRER Inhaled Oxygen Concentration 40% 07/20/2025 5 :06 AM ELEVATOR REPAIRER Weight 189.1 kg (416 lb 14.2 oz) 07/03/2025 3:40 AM ELEVATOR REPAIRER Height 182.9 cm (6' 0.01) 07/02/2025 6:44 AM CS T Body Mass Index 56.53 07/02/2025 6:44 AM ELEVATOR REPAIRER Plan of Treatment Upcoming Encounters Date Type Department Care Team (Late st Contact Info) Description 08/08/2025 2:30 PM ELEVATOR REPAIRER Office Visit [facility] - General Surgery [address] [place] [address] Health Maintenance Due Date Last Done Comments [...] AWV CALENDAR YEAR 2024 COVID-19 VACCINE ( - season) 2025 04/07/2023, 05/25/2022, 12/12/2021, Additional history [...] POINT OF CARE Routine 07/18/2025 3:27 AM ELEVATOR REPAIRER GLUCOSE - POINT OF CARE Routine 07/17/2025 11:11 PM ELEVATOR REPAIRER GLUCOSE - POINT OF CARE Routine 07/17/2025 7:44 PM ELEVATOR REPAIRER GLUCOSE - POINT OF CARE Routine 07/17/2025 4:59 PM ELEVATOR REPAIRER GLUCOSE - POINT OF CARE Routine 07/17/2025 12:24 PM ELEVATOR REPAIRER GLUCOSE - POINT OF CARE Routine 07/17/2025 7:49 AM ELEVATOR REPAIRER GLUCOSE - POINT OF CARE Routine 07/17/2025 4:20 AM ELEVATOR REPAIRER GLUCOSE - POINT OF CARE Routine 07/17/2025 12:25 AM ELEVATOR REPAIRER GLUCOSE - POINT OF CARE Routine 07/16/2025 9:19 PM ELEVATOR REPAIRER GLUCOSE - POINT OF CARE Routine 07/16/2025 3:56 PM ELEVATOR REPAIRER GLUCOSE - POINT OF CARE Routine 07/16/2025 11:24 AM ELEVATOR REPAIRER GLUCOSE - POINT OF CARE Routine 07/16/2025 8:59 AM ELEVATOR REPAIRER PHOSPHORUS BLOOD Routine 07/16/2025 5:45 AM ELEVATOR REPAIRER MAGNESIUM BLOOD Routine 07/16/2025 5:45 AM ELEVATOR REPAIRER BASIC METABOLIC PANEL (CALCIUM TOTAL) Routine 07/16/2025 5:45 AM ELEVATOR REPAIRER CBC W AUTO DIFFERENTIAL STAT 07/16/2025 5:45 AM ELEVATOR REPAIRER GLUCOSE - POINT OF CARE Routine 07/16/2025 5:09 AM ELEVATOR REPAIRER GLUCOSE - POINT OF CARE Routine 07/16/2025 12:05 AM ELEVATOR REPAIRER GLUCOSE - POINT OF CARE Routine 07/15/2025 8:41 PM ELEVATOR REPAIRER GLUCOSE - POINT OF CARE Routine 07/15/2025 5:44 PM ELEVATOR REPAIRER GLUCOSE - POINT OF CARE Routine 07/15/2025 12:04 PM ELEVATOR REPAIRER GLUCOSE - POINT OF CARE Routine 07/15/2025 7:55 AM ELEVATOR REPAIRER GLUCOSE - POINT OF CARE Routine 07/15/2025 5:25 AM ELEVATOR REPAIRER GLUCOSE - POINT OF CARE Routine 07/15/2025 1:13 AM ELEVATOR REPAIRER GLUCOSE - POINT OF CARE Routine 07/14/2025 10:00 PM ELEVATOR REPAIRER GLUCOSE - POINT OF CARE Routine 07/14/2025 5:08 PM ELEVATOR REPAIRER GLUCOSE - POINT OF CARE Routine 07/14/2025 12:18 PM ELEVATOR REPAIRER GLUCOSE - POINT OF CARE Routine 07/14/2025 8:07 AM ELEVATOR REPAIRER PTT Routine 07/14/2025 6:02 AM ELEVATOR REPAIRER Chronic atrial fibrillation (HCC) PT-INR Routine 07/14/2025 6:02 AM ELEVATOR REPAIRER Chronic atrial fibrillation (HCC) CBC W/O DIFFERENTIAL STAT 07/14/2025 6:02 AM ELEVATOR REPAIRER Generalized abdominal pain GLUCOSE - POINT OF CARE Routine 07/14/2025 5:24 AM ELEVATOR REPAIRER GLUCOSE - POINT OF CARE Routine 07/14/2025 12:10 AM ELEVATOR REPAIRER GLUCOSE - POINT OF CARE Routine 07/13/2025 8:21 PM ELEVATOR REPAIRER GLUCOSE - POINT OF CARE Routine 07/13/2025 6:29 PM ELEVATOR REPAIRER GLUCOSE - POINT OF CARE Routine 07/13/2025 12:41 PM ELEVATOR REPAIRER GLUCOSE - POINT OF CARE Routine 07/13/2025 8:47 AM ELEVATOR REPAIRER GLUCOSE - POINT OF CARE Routine 07/13/2025 6:23 AM ELEVATOR REPAIRER PTT Routine 07/13/2025 5:50 AM ELEVATOR REPAIRER Chronic atrial fibrillation (HCC) PT-INR Routine 07/13/2025 5:50 AM ELEVATOR REPAIRER Chronic atrial fibrillation (HCC) PHOSPHORUS BLOOD STAT 07/13/2025 4:01 AM ELEVATOR REPAIRER Ventral hernia with gangrene MAGNESIUM BLOOD STAT 07/13/2025 4:01 AM ELEVATOR REPAIRER Generalized abdominal pain CBC W/O DIFFERENTIAL STAT 07/13/2025 4:01 AM ELEVATOR REPAIRER Generalized abdominal pain BASIC METABOLIC PANEL (CALCIUM TOTAL) STAT 07/13/2025 4:01 AM ELEVATOR REPAIRER Generalized abdominal pain GLUCOSE - POINT OF CARE Routine 07/13/2025 12:09 AM ELEVATOR REPAIRER GLUCOSE - POINT OF CARE Routine 07/12/2025 8:26 PM ELEVATOR REPAIRER GLUCOSE - POINT OF CARE Routine 07/12/2025 5:05 PM ELEVATOR REPAIRER GLUCOSE - POINT OF CARE Routine 07/12/2025 11:03 AM ELEVATOR REPAIRER GLUCOSE - POINT OF CARE Routine 07/12/2025 8:03 AM ELEVATOR REPAIRER HEPATIC FUNCTION PANEL AM Draw 07/12/2025 6:14 AM ELEVATOR REPAIRER PTT Routine 07/12/2025 6:14 AM ELEVATOR REPAIRER Chronic atrial fibrillation (HCC) PT-INR Routine 07/12/2025 6:14 AM ELEVATOR REPAIRER Chronic atrial fibrillation (HCC) PHOSPHORUS BLOOD STAT 07/12/2025 6:14 AM ELEVATOR REPAIRER Ventral hernia with gangrene MAGNESIUM BLOOD STAT 07/12/2025 6:14 AM ELEVATOR REPAIRER Generalized abdominal pain CBC W/O DIFFERENTIAL STAT 07/12/2025 6:14 AM ELEVATOR REPAIRER Generalized abdominal pain BASIC METABOLIC PANEL (CALCIUM TOTAL) STAT 07/12/2025 6:14 AM ELEVATOR REPAIRER Generalized abdominal pain GLUCOSE - POINT OF CARE Routine 07/12/2025 5:07 AM ELEVATOR REPAIRER GLUCOSE - POINT OF CARE Routine 07/12/2025 12:42 AM ELEVATOR REPAIRER GLUCOSE - POINT OF CARE Routine 07/11/2025 9:36 PM ELEVATOR REPAIRER GLUCOSE - POINT OF CARE Routine 07/11/2025 4:30 PM ELEVATOR REPAIRER GLUCOSE - POINT OF CARE Routine 07/11/2025 11:25 AM ELEVATOR REPAIRER GLUCOSE - POINT OF CARE Routine 07/11/2025 7:54 AM ELEVATOR REPAIRER PTT Routine 07/11/2025 5:19 AM ELEVATOR REPAIRER Chronic atrial fibrillation (HCC) PT-INR Routine 07/11/2025 5:19 AM ELEVATOR REPAIRER Chronic atrial fibrillation (HCC) PHOSPHORUS BLOOD STAT 07/11/2025 5:19 AM ELEVATOR REPAIRER Ventral hernia with gangrene MAGNESIUM BLOOD STAT 07/11/2025 5:19 AM ELEVATOR REPAIRER Generalized abdominal pain CBC W/O DIFFERENTIAL STAT 07/11/2025 5:19 AM ELEVATOR REPAIRER Generalized abdominal pain BASIC METABOLIC PANEL (CALCIUM TOTAL) STAT 07/11/2025 5:19 AM ELEVATOR REPAIRER Generalized abdominal pain GLUCOSE - POINT OF CARE Routine 07/11/2025 4:28 AM ELEVATOR REPAIRER GLUCOSE - POINT OF CARE Routine 07/10/2025 11:44 PM ELEVATOR REPAIRER GLUCOSE - POINT OF CARE Routine 07/10/2025 7:51 PM ELEVATOR REPAIRER GLUCOSE - POINT OF CARE Routine 07/10/2025 4:06 PM ELEVATOR REPAIRER GLUCOSE - POINT OF CARE Routine 07/10/2025 11:18 AM ELEVATOR REPAIRER GLUCOSE - POINT OF CARE Routine 07/10/2025 7:31 AM ELEVATOR REPAIRER TRIGLYCERIDES BLOOD Routine 07/10/2025 4 :56 AM ELEVATOR REPAIRER PTT Routine 07/10/2025 4:56 AM ELEVATOR REPAIRER Chronic atrial fibrillation (HCC) PT-INR Routine 07/10/2025 4:56 AM ELEVATOR REPAIRER Chronic atrial fibrillation (HCC) PHOSPHORUS BLOOD STAT 07/10/2025 4:56 AM ELEVATOR REPAIRER Ventral hernia with gangrene MAGNESIUM BLOOD STAT 07/10/2025 4:56 AM ELEVATOR REPAIRER Generalized abdominal pain CBC W/O DIFFERENTIAL STAT 07/10/2025 4:56 AM ELEVATOR REPAIRER Generalized abdominal pain BASIC METABOLIC PANEL (CALCIUM TOTAL) STAT 07/10/2025 4:56 AM ELEVATOR REPAIRER Generalized abdominal pain GLUCOSE - POINT OF CARE Routine 07/10/2025 3:32 AM ELEVATOR REPAIRER GLUCOSE - POINT OF CARE Routine 07/10/2025 12:31 AM ELEVATOR REPAIRER GLUCOSE - POINT OF CARE Routine 07/09/2025 7:46 PM ELEVATOR REPAIRER GLUCOSE - POINT OF CARE Routine 07/09/2025 3:47 PM ELEVATOR REPAIRER GLUCOSE - POINT OF CARE Routine 07/09/2025 12:56 PM ELEVATOR REPAIRER GLUCOSE - POINT OF CARE Routine 07/09/2025 11:52 AM ELEVATOR REPAIRER PTT Timed 07/09/2025 10:37 AM ELEVATOR REPAIRER GLUCOSE - POINT OF CARE Routine 07/09/2025 8:37 AM ELEVATOR REPAIRER BASIC METABOLIC PANEL (CALCIUM TOTAL) STAT 07/09/2025 6:12 AM ELEVATOR REPAIRER Generalized abdominal pain GLUCOSE - POINT OF CARE Routine 07/09/2025 3:42 AM ELEVATOR REPAIRER PT-INR Routine 07/09/2025 3:30 AM ELEVATOR REPAIRER Chronic atrial fibrillation (HCC) PHOSPHORUS BLOOD STAT 07/09/2025 3:30 AM ELEVATOR REPAIRER Ventral hernia with gangrene MAGNESIUM BLOOD STAT 07/09/2025 3:30 AM ELEVATOR REPAIRER Generalized abdominal pain CBC W/O DIFFERENTIAL STAT 07/09/2025 3:30 AM ELEVATOR REPAIRER Generalized abdominal pain PTT Timed 07/09/2025 3:30 AM ELEVATOR REPAIRER GLUCOSE - POINT OF CARE Routine 07/09/2025 12:00 AM ELEVATOR REPAIRER PTT Timed 07/08/2025 7:44 PM ELEVATOR REPAIRER GLUCOSE - POINT OF CARE Routine 07/08/2025 7:43 PM ELEVATOR REPAIRER GLUCOSE - POINT OF CARE Routine 07/08/2025 4:43 PM ELEVATOR REPAIRER GLUCOSE - POINT OF CARE Routine 07/08/2025 12:26 PM ELEVATOR REPAIRER PTT Timed 07/08/2025 11:39 AM ELEVATOR REPAIRER Ventral hernia with gangrene Necrotizing soft tissue infection GLUCOSE - POINT OF CARE Routine 07/08/2025 7:52 AM ELEVATOR REPAIRER GLUCOSE - POINT OF CARE Routine 07/08/2025 3:30 AM ELEVATOR REPAIRER PTT Routine 07/08/2025 3:07 AM ELEVATOR REPAIRER Chronic atrial fibrillation (HCC) PT-INR Routine 07/08/2025 3:07 AM ELEVATOR REPAIRER Chronic atrial fibrillation (HCC) PHOSPHORUS BLOOD STAT 07/08/2025 3:07 AM ELEVATOR REPAIRER Ventral hernia with gangrene MAGNESIUM BLOOD STAT 07/08/2025 3:07 AM ELEVATOR REPAIRER Generalized abdominal pain CBC W/O DIFFERENTIAL STAT 07/08/2025 3:07 AM ELEVATOR REPAIRER Generalized abdominal pain BASIC METABOLIC PANEL (CALCIUM TOTAL) STAT 07/08/2025 3:07 AM ELEVATOR REPAIRER Generalized abdominal pain VANCOMYCIN LEVEL RANDOM Routine 07/08/2025 3:07 AM ELEVATOR REPAIRER GLUCOSE - POINT OF CARE Routine 07/07/2025 11:54 PM ELEVATOR REPAIRER GLUCOSE - POINT OF CARE Routine 07/07/2025 8:48 PM ELEVATOR REPAIRER GLUCOSE - POINT OF CARE Routine 07/07/2025 4:38 PM ELEVATOR REPAIRER PTT STAT 07/07/2025 9:20 AM ELEVATOR REPAIRER XR CHEST 1VW PORTABLE STAT 07/07/2025 4:37 AM ELEVATOR REPAIRER Acute hypoxic respiratory failure (HCC) PTT Timed 07/07/2025 3:26 AM ELEVATOR REPAIRER PT-INR Routine 07/07/2025 3:26 AM ELEVATOR REPAIRER Chronic atrial fibrillation (HCC) VANCOMYCIN LEVEL RANDOM Timed 07/07/2025 3:26 AM ELEVATOR REPAIRER BLOOD GASES ART + COOX PANEL STAT 07/07/2025 3:26 AM ELEVATOR REPAIRER Ventral hernia with gangrene PHOSPHORUS BLOOD STAT 07/07/2025 3:26 AM ELEVATOR REPAIRER Ventral hernia with gangrene MAGNESIUM BLOOD STAT 07/07/2025 3:26 AM ELEVATOR REPAIRER Generalized abdominal pain CALCIUM IONIZED WHOLE BLOOD STAT 07/07/2025 3:26 AM ELEVATOR REPAIRER Generalized abdominal pain BASIC METABOLIC PANEL (CALCIUM TOTAL) STAT 07/07/2025 3:26 AM ELEVATOR REPAIRER Generalized abdominal pain CBC W/O DIFFERENTIAL STAT 07/07/2025 3:26 AM ELEVATOR REPAIRER Generalized abdominal pain PTT STAT 07/06/2025 8:26 PM ELEVATOR REPAIRER DIFFERENTIAL MANUAL Routine 07/06/2025 12:34 PM ELEVATOR REPAIRER Chronic atrial fibrillation (HCC) CBC W AUTO DIFFERENTIAL Routine 07/06/2025 12:34 PM ELEVATOR REPAIRER Chronic atrial fibrillation (HCC) PTT Routine 07/06/2025 12:34 PM ELEVATOR REPAIRER Chronic atrial fibrillation (HCC) PT-INR Routine 07/06/2025 12:34 PM ELEVATOR REPAIRER Chronic atrial fibrillation (HCC) XR CHEST 1VW PORTABLE Routine 07/06/2025 4:26 AM ELEVATOR REPAIRER Ventral hernia with gangrene BLOOD GASES ART + COOX PANEL STAT 07/06/2025 1:31 AM ELEVATOR REPAIRER Ventral hernia with gangrene PHOSPHORUS BLOOD STAT 07/06/2025 1:31 AM ELEVATOR REPAIRER Ventral hernia with gangrene MAGNESIUM BLOOD STAT 07/06/2025 1:31 AM ELEVATOR REPAIRER Generalized abdominal pain CALCIUM IONIZED WHOLE BLOOD STAT 07/06/2025 1:31 AM ELEVATOR REPAIRER Generalized abdominal pain BASIC METABOLIC PANEL (CALCIUM TOTAL) STAT 07/06/2025 1:31 AM ELEVATOR REPAIRER Generalized abdominal pain CBC W/O DIFFERENTIAL STAT 07/06/2025 1:31 AM ELEVATOR REPAIRER Generalized abdominal pain VANCOMYCIN LEVEL RANDOM Timed 07/05/2025 9:10 PM ELEVATOR REPAIRER GLUCOSE - POINT OF CARE Routine 07/05/2025 9:09 PM ELEVATOR REPAIRER GLUCOSE - POINT OF CARE Routine 07/05/2025 6:19 PM ELEVATOR REPAIRER IR PICC LINE INSERT Routine 07/05/2025 2 :30 PM ELEVATOR REPAIRER Ventral hernia with gangrene XR CHEST 1VW PORTABLE STAT 07/05/2025 2:24 PM ELEVATOR REPAIRER Ventral hernia with gangrene GLUCOSE - POINT OF CARE Routine 07/05/2025 1:54 PM ELEVATOR REPAIRER CULTURE FUNGUS OTHER+FUNGUS SMEAR STAT 07/05/2025 10:47 AM ELEVATOR REPAIRER Ventral hernia with gangrene CULTURE BRONCHIAL WASHING+GRAM STAIN Routine 07/05/2025 10:46 AM ELEVATOR REPAIRER Trauma GLUCOSE - POINT OF CARE Routine 07/05/2025 8:57 AM ELEVATOR REPAIRER GLUCOSE - POINT OF CARE Routine 07/05/2025 4:56 AM ELEVATOR REPAIRER XR CHEST 1VW PORTABLE STAT 07/05/2025 4:21 AM ELEVATOR REPAIRER Ventral hernia with gangrene BLOOD GASES ART + COOX PANEL STAT 07/05/2025 12:38 AM ELEVATOR REPAIRER Ventral hernia with gangrene PHOSPHORUS BLOOD STAT 07/05/2025 12:38 AM ELEVATOR REPAIRER Ventral hernia with gangrene MAGNESIUM BLOOD STAT 07/05/2025 12:38 AM ELEVATOR REPAIRER Generalized abdominal pain CALCIUM IONIZED WHOLE BLOOD STAT 07/05/2025 12:38 AM ELEVATOR REPAIRER Generalized abdominal pain BASIC METABOLIC PANEL (CALCIUM TOTAL) STAT 07/05/2025 12:38 AM ELEVATOR REPAIRER Generalized abdominal pain CBC W/O DIFFERENTIAL STAT 07/05/2025 12:38 AM ELEVATOR REPAIRER Generalized abdominal pain GLUCOSE - POINT OF CARE Routine 07/05/2025 12:30 AM ELEVATOR REPAIRER GLUCOSE - POINT OF CARE Routine 07/05/2025 12:27 AM ELEVATOR REPAIRER GLUCOSE - POINT OF CARE Routine 07/04/2025 8:08 PM ELEVATOR REPAIRER GLUCOSE - POINT OF CARE Routine 07/04/2025 4:43 PM ELEVATOR REPAIRER VANCOMYCIN LEVEL TROUGH Timed 07/04/2025 3:29 PM ELEVATOR REPAIRER XR ABDOMEN KUB PORTABLE STAT 07/04/2025 2:25 PM ELEVATOR REPAIRER Ventral hernia with gangrene GLUCOSE - POINT OF CARE Routine 07/04/2025 1:[address] CHEST WO CONTRAST STAT 07/04/2025 9:44 AM ELEVATOR REPAIRER Ventral hernia with gangrene GLUCOSE - POINT OF CARE Routine 07/04/2025 8:15 AM ELEVATOR REPAIRER XR CHEST 1VW PORTABLE Routine 07/04/2025 4:23 AM ELEVATOR REPAIRER Ventral hernia with gangrene GLUCOSE - POINT OF CARE Routine 07/04/2025 4:08 AM ELEVATOR REPAIRER GLUCOSE - POINT OF CARE Routine 07/03/2025 11:32 PM ELEVATOR REPAIRER BLOOD GASES ART + COOX PANEL STAT 07/03/2025 11:32 PM ELEVATOR REPAIRER Ventral hernia with gangrene PHOSPHORUS BLOOD STAT 07/03/2025 11:32 PM ELEVATOR REPAIRER Ventral hernia with gangrene MAGNESIUM BLOOD STAT 07/03/2025 11:32 PM ELEVATOR REPAIRER Generalized abdominal pain CALCIUM IONIZED WHOLE BLOOD STAT 07/03/2025 11:32 PM ELEVATOR REPAIRER Generalized abdominal pain BASIC METABOLIC PANEL (CALCIUM TOTAL) STAT 07/03/2025 11:32 PM ELEVATOR REPAIRER Generalized abdominal pain CBC W/O DIFFERENTIAL STAT 07/03/2025 11:32 PM ELEVATOR REPAIRER Generalized abdominal pain GLUCOSE - POINT OF CARE Routine 07/03/2025 8:00 PM ELEVATOR REPAIRER GLUCOSE - POINT OF CARE Routine 07/03/2025 5:08 PM ELEVATOR REPAIRER BASIC METABOLIC PANEL (CALCIUM TOTAL) STAT 07/03/2025 1:31 PM ELEVATOR REPAIRER Ventral hernia with gangrene CBC W/O DIFFERENTIAL STAT 07/03/2025 1:31 PM ELEVATOR REPAIRER Ventral hernia with gangrene BLOOD GASES ART + COOX PANEL STAT 07/03/2025 1:31 PM ELEVATOR REPAIRER Ventral hernia with gangrene XR ABDOMEN KUB PORTABLE STAT 07/03/2025 10:17 AM ELEVATOR REPAIRER Incarcerated ventral hernia PATHOLOGY TISSUE Routine 07/03/2025 8:49 AM ELEVATOR REPAIRER Incarcerated ventral hernia BLOOD GAS+COOX+LYTES+METAB ARTERIAL POCT Routine 07/03/2025 8:29 AM ELEVATOR REPAIRER IN EXPLORATORY OF ABDOMEN 07/03/2025 7:25 AM ELEVATOR REPAIRER Incarcerated ventral hernia EKG 12-LEAD Routine 07/03/2025 6:29 AM ELEVATOR REPAIRER Ventral hernia with gangrene TRIGLYCERIDES BLOOD Routine 07/03/2025 6 :04 AM ELEVATOR REPAIRER Ventral hernia with gangrene BLOOD GASES ART + COOX PANEL Routine 07/03/2025 6:04 AM ELEVATOR REPAIRER Ventral hernia with gangrene XR CHEST 1VW Routine 07/03/2025 4:23 AM ELEVATOR REPAIRER Ventral hernia with gangrene GLUCOSE - POINT OF CARE Routine 07/03/2025 3:40 AM ELEVATOR REPAIRER BLOOD GASES ART + COOX PANEL Routine 07/03/2025 3:40 AM ELEVATOR REPAIRER VANCOMYCIN LEVEL RANDOM Timed 07/03/2025 3:40 AM ELEVATOR REPAIRER BLOOD GASES ART + COOX PANEL STAT 07/02/2025 11:18 PM ELEVATOR REPAIRER Ventral hernia with gangrene PHOSPHORUS BLOOD STAT 07/02/2025 11:18 PM ELEVATOR REPAIRER Ventral hernia with gangrene MAGNESIUM BLOOD STAT 07/02/2025 11:18 PM ELEVATOR REPAIRER Generalized abdominal pain CALCIUM IONIZED WHOLE BLOOD STAT 07/02/2025 11:18 PM ELEVATOR REPAIRER Generalized abdominal pain BASIC METABOLIC PANEL (CALCIUM TOTAL) STAT 07/02/2025 11:18 PM ELEVATOR REPAIRER Generalized abdominal pain CBC W/O DIFFERENTIAL STAT 07/02/2025 11:18 PM ELEVATOR REPAIRER Generalized abdominal pain GLUCOSE - POINT OF CARE Routine 07/02/2025 11:17 PM ELEVATOR REPAIRER GLUCOSE - POINT OF CARE Routine 07/02/2025 7:59 PM ELEVATOR REPAIRER GLUCOSE - POINT OF CARE Routine 07/02/2025 4:11 PM ELEVATOR REPAIRER XR CHEST 1VW PORTABLE Routine 07/02/2025 1:47 PM ELEVATOR REPAIRER Ventral hernia with gangrene GLUCOSE - POINT OF CARE Routine 07/02/2025 12:29 PM ELEVATOR REPAIRER HEPATIC FUNCTION PANEL STAT 07/02/2025 10:52 AM ELEVATOR REPAIRER Generalized abdominal pain LACTIC ACID BLOOD STAT 07/02/2025 10:52 AM ELEVATOR REPAIRER Generalized abdominal pain BASIC METABOLIC PANEL (CALCIUM TOTAL) STAT 07/02/2025 10:52 AM ELEVATOR REPAIRER Generalized abdominal pain BLOOD GASES ART + COOX PANEL STAT 07/02/2025 10:52 AM ELEVATOR REPAIRER Generalized abdominal pain BLOOD GAS ART+LYTES+METAB+COOX POC NOTIF STAT 07/02/2025 9:24 AM ELEVATOR REPAIRER Generalized abdominal pain GLUCOSE - POINT OF CARE Routine 07/02/2025 8:12 AM ELEVATOR REPAIRER XR CHEST 1VW Routine 07/02/2025 6:14 AM ELEVATOR REPAIRER Generalized abdominal pain LACTIC ACID WHOLE BLOOD STAT 07/02/2025 5:51 AM ELEVATOR REPAIRER Generalized abdominal pain BLOOD GASES ART + COOX PANEL Routine 07/02/2025 5:51 AM ELEVATOR REPAIRER Generalized abdominal pain GLUCOSE - POINT OF CARE Routine 07/02/2025 4:48 AM ELEVATOR REPAIRER VANCOMYCIN LEVEL RANDOM Routine 07/02/2025 1:59 AM ELEVATOR REPAIRER BLOOD TYPE VERIFICATION STAT 07/02/2025 12:49 AM ELEVATOR REPAIRER HEMOGLOBIN A1C FABY 07/02/2025 12:32 AM ELEVATOR REPAIRER Generalized abdominal pain URINALYSIS REFLEX TO MICROSCOPIC NO CULTURE STAT 07/02/2025 12:31 AM ELEVATOR REPAIRER Generalized abdominal pain MRSA PCR STAT 07/02/2025 12:31 AM ELEVATOR REPAIRER Generalized abdominal pain TSH FABY 07/02/2025 12:30 AM ELEVATOR REPAIRER Generalized abdominal pain VANCOMYCIN LEVEL TROUGH Timed 07/02/2025 12:30 AM ELEVATOR REPAIRER Generalized abdominal pain BLOOD GASES ART + COOX PANEL STAT 07/02/2025 12:30 AM ELEVATOR REPAIRER Generalized abdominal pain FIBRINOGEN ACTIVITY STAT 07/02/2025 12:30 AM ELEVATOR REPAIRER Generalized abdominal pain PTT STAT 07/02/2025 12:30 AM ELEVATOR REPAIRER Generalized abdominal pain PT-INR STAT 07/02/2025 12:30 AM ELEVATOR REPAIRER Generalized abdominal pain LACTIC ACID WHOLE BLOOD STAT 07/02/2025 12:30 AM ELEVATOR REPAIRER Generalized abdominal pain TRIGLYCERIDES BLOOD FABY 07/02/2025 12:30 AM ELEVATOR REPAIRER Generalized abdominal pain NT-PRO BNP STAT 07/02/2025 12:30 AM ELEVATOR REPAIRER Generalized abdominal pain MAGNESIUM BLOOD STAT 07/02/2025 12:30 AM ELEVATOR REPAIRER Generalized abdominal pain CALCIUM IONIZED WHOLE BLOOD STAT 07/02/2025 12:30 AM ELEVATOR REPAIRER Generalized abdominal pain PHOSPHORUS BLOOD STAT 07/02/2025 12:30 AM ELEVATOR REPAIRER Generalized abdominal pain BASIC METABOLIC PANEL (CALCIUM TOTAL) STAT 07/02/2025 12:30 AM ELEVATOR REPAIRER Generalized abdominal pain CBC W/O DIFFERENTIAL STAT 07/02/2025 12:30 AM ELEVATOR REPAIRER Generalized abdominal pain XR ABDOMEN KUB Routine 07/02/2025 12:02 AM ELEVATOR REPAIRER Generalized abdominal pain XR CHEST 1VW PORTABLE STAT 07/02/2025 12:02 AM ELEVATOR REPAIRER Generalized abdominal pain SUSCEPTIBILITY FUNGUS/YEAST Routine 07/01/2025 11:50 PM ELEVATOR REPAIRER Generalized abdominal pain CULTURE FUNGUS OTHER+FUNGUS SMEAR Routine 07/01/2025 11:50 PM ELEVATOR REPAIRER Generalized abdominal pain CULTURE ANAEROBE Routine 07/01/2025 11:50 PM ELEVATOR REPAIRER Generalized abdominal pain CULTURE FLUID+GRAM STAIN Routine 07/01/2025 11:50 PM ELEVATOR REPAIRER Generalized abdominal pain PERIPHERAL IV NOTE Routine 07/01/2025 11:12 PM ELEVATOR REPAIRER PERIPHERAL IV NOTE Routine 07/01/2025 11:12 PM ELEVATOR REPAIRER PATHOLOGY TISSUE STAT 07/01/2025 11:11 PM ELEVATOR REPAIRER Trauma BLOOD GAS+COOX+LYTES+METAB ARTERIAL POCT Routine 07/01/2025 10:36 PM ELEVATOR REPAIRER ARTERIAL LINE NOTE Routine 07/01/2025 9: 20 PM ELEVATOR REPAIRER ENDOTRACHEAL TUBE NOTE Routine 07/01/2025 9:19 PM ELEVATOR REPAIRER BLOOD GAS+COOX+LYTES+METAB ARTERIAL POCT Routine 07/01/2025 9:18 PM ELEVATOR REPAIRER BLOOD GAS+COOX+LYTES+METAB ARTERIAL POCT Routine 07/01/2025 9:18 PM ELEVATOR REPAIRER TYPE + SCREEN PANEL STAT 07/01/2025 8 :11 PM ELEVATOR REPAIRER PREPARE RBC LEUKOREDUCED UNIT STAT 07/01/2025 8:11 PM ELEVATOR REPAIRER PREPARE PLATELET PHERESIS UNIT(S) STAT 07/01/2025 8:11 PM ELEVATOR REPAIRER PREPARE FFP UNIT(S) STAT 07/01/2025 8 :11 PM ELEVATOR REPAIRER IN EXPLORATORY OF ABDOMEN 07/01/2025 8:08 PM ELEVATOR REPAIRER Trauma Special Needs 07/01 @ 1928 CW GLUCOSE - POINT OF CARE Routine 07/01/2025 7:58 PM ELEVATOR REPAIRER HEPATIC FUNCTION PANEL STAT 07/01/2025 7:18 PM ELEVATOR REPAIRER Generalized abdominal pain DIFFERENTIAL MANUAL STAT 07/01/2025 7 :18 PM ELEVATOR REPAIRER TEG 6S PLATELET MAPPING STAT 07/01/2025 7:18 PM ELEVATOR REPAIRER TEG 6 GLOBAL HEMOSTASIS W/ LYSIS STAT 07/01/2025 7:18 PM ELEVATOR REPAIRER PROLACTIN STAT 07/01/2025 7:18 PM ELEVATOR REPAIRER PT-INR STAT 07/01/2025 7:18 PM ELEVATOR REPAIRER LACTIC ACID BLOOD REFLEX TO REPEAT STAT 07/01/2025 7:18 PM ELEVATOR REPAIRER COMPREHENSIVE METABOLIC PANEL STAT 07/01/2025 7:18 PM ELEVATOR REPAIRER CBC W AUTO DIFFERENTIAL STAT 07/01/2025 7:18 PM ELEVATOR REPAIRER from Last 3 Months Results * (ABNORMAL) GLUCOSE - POINT OF CARE (07/18/2025 3:27 AM ELEVATOR REPAIRER) Only the most recent of88 resultswithin the time period is included. [facility] Glucose WB/POC 106(H) 70 - 99 mg/dL 07/18/2025 3:28 AM ELEVATOR REPAIRER [facility] Specimen Type Arterial/C apillary 07/18/2025 3:28 AM ELEVATOR REPAIRER [facility] Blood BLOOD SPECIMEN / Unknown 07/18/2025 3:27 AM ELEVATOR REPAIRER 07/18/2025 3:28 AM ELEVATOR REPAIRER [facility] Sensing DO LAB - POINT OF CARE ORDERABLES Final Result [address] [address], [facility] [phone] * (ABNORMAL) CBC W AUTO DIFFERENTIAL (07/16/2025 5:45 AM ELEVATOR REPAIRER) Only the most recent of3 resultswithin the time period is included. [facility] WBC 8.2 4.0 - 10.7 x10E9/L 07/16/2025 8:15 AM ELEVATOR REPAIRER [facility] RBC Count 2.74(L) 4.30 - 5.80 x10E12/L 07/16/2025 8:15 AM ELEVATOR REPAIRER [facility] Hemoglobin 9.0(L) 13.3 - 17.5 g/dL 07/16/2025 8:15 AM [facility] Hematocrit 28.6(L) 38.7 - 51.1 % 07/16/2025 8:15 AM [facility] MCV 104.4(H) 80.0 - 98.0 fL 07/16/2025 8:15 AM [facility] MCH 32.8 26.7 - 33.6 pg 07/16/2025 8:15 AM [facility] MCHC 31.5(L) 31.7 - 36.3 g/dL 07/16/2025 8:15 AM [facility] RDW-CV 15.9(H) 11.3 - 14.8 % 07/16/2025 8:15 AM [facility] Platelet Count 431(H) 150 - 420 x10E9/L 07/16/2025 8:15 AM [facility] MPV 11.5(H) 7.8 - 11.4 fL 07/16/2025 8:15 AM [facility] Neutrophil % 67.2 41.0 - 74.0 % 07/16/2025 8:15 AM [facility] Lymphocyte % 13.9(L) 17.0 - 47.0 % 07/16/2025 8:15 AM [facility] Monocyte % 12.3(H) 3.0 - 11.0 % 07/16/2025 8:15 AM [facility] Eosinophil % 5.1 0.0 - 7.0 % 07/16/2025 8:15 AM [facility] Basophil % 1.1 0.0 - 1.6 % 07/16/2025 8:15 AM [facility] Immature Granulocytes % 0.4 0.0 - 1.0 % 07/16/2025 8:15 AM [facility] Neutrophil Absolute 5.53 1.60 - 7.50 x10E9/L 07/16/2025 8:15 AM [facility] Lymphocyte Absolute 1.14 1.00 - 4.40 x10E9/L 07/16/2025 8:15 AM [facility] Monocyte Absolute 1.01(H) 0.15 - 1.00 x10E9/L 07/16/2025 8:15 AM [facility] Eosinophil Absolute 0.42 0.00 - 0.60 x10E9/L 07/16/2025 8:15 AM [facility] Basophil Absolute 0.09 0.00 - 0.13 x10E9/L 07/16/2025 8:15 AM [facility] Blood BLOOD SPECIMEN / Unknown Lab Venipuncture / Unknown 07/16/2025 5:45 AM [facility] 07/16/2025 8:06 AM [facility] Colby Sensing DO LAB - HEMATOLOGY ORDERABLES Fi nal Result [facility] [address] [place] [address], [facility] [phone] * (ABNORMAL) BASIC METABOLIC PANEL (CALCIUM TOTAL) (07/16/2025 5:45 AM [facility]) Only the most recent of15 resultswithin the time period is included. BUN 19 7 - 26 mg/dL 07/16/2025 8:22 AM [facility] Creatinine 0.80 0.71 - 1.16 mg/dL 07/16/2025 8:22 AM [facility] Sodium 139 136 - 145 mmol/L 07/16/2025 8:22 AM [facility] Potassium 4.0 3.5 - 4.5 mmol/L 07/16/2025 8:22 AM [facility] Chloride 100 98 - 107 mmol/L 07/16/2025 8:22 AM [facility] CO2 34(H) 22 - 29 mmol/L 07/16/2025 8:22 AM [facility] Glucose 105(H) 70 - 99 mg/dL 07/16/2025 8:22 AM [facility] Calcium 8.7 8.4 - 10.2 mg/dL 07/16/2025 8:22 AM [facility] Anion Gap 5(L) 6 - 16 07/16/2025 8:22 AM [facility] BUN/Creatinine Ratio 24(H) 7 - 23 07/16/2025 8:22 AM [facility] Osmolality Calculated 291 275 - 295 mOsm/kg 07/16/2025 8:22 AM [facility] eGFR by CKD-EPI >90 >=90 mL/min/1.7 3 m2 07/16/2025 8:22 AM [facility] Comment:Estimated Glomerular Filtration Rate (eGFR) calculated using the CKD-EPI Creatinine Equation (2020), per the National Kidney Foundation and [place] [employer]ph[employer] recommendations. Blood BLOOD SPECIMEN / Unknown Lab Venipuncture / Unknown 07/16/2025 5:45 AM ELEVATOR REPAIRER 07/16/2025 8:06 AM ELEVATOR REPAIRER [facility] Sensing DO LAB - CHEMISTRY ORDERABLES Fin al Result Performing Organization Address [facility]/ZIP Co de Phone Number [address] [address], [facility] [phone] * PHOSPHORUS BLOOD (07/16/2025 5:45 AM ELEVATOR REPAIRER) Only the most recent of13 resultswithin the time period is included. Phosphorus 2.8 2.8 - 5.1 mg/dL 07/16/2025 8:22 AM [facility] Blood BLOOD SPECIMEN / Unknown Lab Venipuncture / Unknown 07/16/2025 5:45 AM ELEVATOR REPAIRER 07/16/2025 8:06 AM ELEVATOR REPAIRER [facility] Sensing DO LAB - CHEMISTRY ORDERABLES Fin al Result Performing Organization Address [facility]/ZIP Co de Phone Number [address] [address], [facility] [phone] * MAGNESIUM BLOOD (07/16/2025 5:45 AM ELEVATOR REPAIRER) Only the most recent of13 resultswithin the time period is included. Magnesium 1.8 1.6 - 2.6 mg/dL 07/16/2025 8:22 AM [facility] Blood BLOOD SPECIMEN / Unknown Lab Venipuncture / Unknown 07/16/2025 5:45 AM ELEVATOR REPAIRER 07/16/2025 8:06 AM ELEVATOR REPAIRER [facility] Sensing DO LAB - CHEMISTRY ORDERABLES Fin al Result Performing Organization Address [facility] Co de Phone Number [address] [address], [facility] [phone] * PTT (07/14/2025 6:02 AM ELEVATOR REPAIRER) Only the most recent of15 resultswithin the time period is included. APTT 29.0 23.0 - 38.4 Seconds 07/14/2025 8:11 AM [facility] Comment:Suggested therapeuti c range for full dose I.V. unfractionated heparin therapy for venous thromboembolism is 71 to 109 seconds. Blood BLOOD SPECIMEN / Unknown Lab Venipuncture / Unknown 07/14/2025 6:02 AM ELEVATOR REPAIRER 07/14/2025 7:42 AM ELEVATOR REPAIRER us Kamaljit Nicole MD LAB - COAGULATION ORDERABLES F inal Result Performing Organization Address [facility] de Phone Number [address] [address], [facility] [phone] * (ABNORMAL) PT-INR (07/14/2025 6:02 AM ELEVATOR REPAIRER) Only the most recent of11 resultswithin the time period is included. PT 33.1(H) 12.1 - 14.8 Seconds 07/14/2025 8:11 AM [facility] INR 3.3 See Comment 07/14/2025 8:11 AM [facility] Comment:The suggested therap eutic range for standard coumadin (warfarin) therapy is an INR of 2.0-3.0. For high-risk patients (Mechanical Mitral Valve Prosthesis, etc.), the suggested prophylactic therapeutic range is an INR of 2.5-3.5. Blood BLOOD SPECIMEN / Unknown Lab Venipuncture / Unknown 07/14/2025 6:02 AM ELEVATOR REPAIRER 07/14/2025 7:42 AM ELEVATOR REPAIRER us Kamaljit Nicole MD LAB - COAGULATION ORDERABLES F inal Result Performing Organization Address [facility] Co de Phone Number [address] [address], [facility] [phone] * (ABNORMAL) CBC W/O DIFFERENTIAL (07/14/2025 6:02 AM ELEVATOR REPAIRER) Only the most recent of14 resultswithin the time period is included. WBC 9.5 4.0 - 10.7 x10E9/L 07/14/2025 8:53 AM [facility] RBC Count 2.77(L) 4.30 - 5.80 x10E12/L 07/14/2025 8:53 AM [facility] Hemoglobin 9.1(L) 13.3 - 17.5 g/dL 07/14/2025 8:53 AM [facility] Hematocrit 28.7(L) 38.7 - 51.1 % 07/14/2025 8:53 AM [facility] MCV 103.6(H) 80.0 - 98.0 fL 07/14/2025 8:53 AM [facility] MCH 32.9 26.7 - 33.6 pg 07/14/2025 8:53 AM [facility] MCHC 31.7 31.7 - 36.3 g/dL 07/14/2025 8:53 AM [facility] RDW-CV 15.9(H) 11.3 - 14.8 % 07/14/2025 8:53 AM [facility] Platelet Count 418 150 - 420 x10E9/L 07/14/2025 8:53 AM [facility] MPV 11.6(H) 7.8 - 11.4 fL 07/14/2025 8:53 AM [facility] Blood BLOOD SPECIMEN / Unknown Lab Venipuncture / Unknown 07/14/2025 6:02 AM ELEVATOR REPAIRER 07/14/2025 7:42 AM ELEVATOR REPAIRER us Kamaljit Nicole MD LAB - HEMATOLOGY ORDERABLES Fi nal Result [facility] [address] [place] [address], [facility] [phone] * (ABNORMAL) HEPATIC FUNCTION PANEL (07/12/2025 6:14 AM ELEVATOR REPAIRER) Only the most recent of3 resultswithin the time period is included. Protein Total 6.6 6.0 - 8.3 g/dL 7:28 AM [facility] Albumin 2.1(L) 3.4 - 5.0 g/dL 07/12/2025 7:28 AM [facility] Bilirubin Total 1.3(H) 0.2 - 1.2 mg/dL 06/30 7:28 AM [facility] Bilirubin Conjugated 0.9(H) 0.1 - 0.5 mg/dL 07/12/2025 7:28 AM [facility] Bilirubin Unconjugated 0.4 Unconjugated Bilirubin is a calculated value: Reference ranges have not been established. mg/dL 07/12/2025 7:28 AM [facility] Alkaline Phosphatase 197(H) 40 - 150 U/L 07/12/2025 7:28 AM [facility] ALT 57(H) 5 - 55 U/L 07/12/2025 7:28 AM [facility] AST 76(H) 5 - 34 U/L 07/12/2025 7:28 AM [facility] Albumin/Globulin Ratio 0.5(L) 1.1 - 2.3 07/12/2025 7:28 AM [facility] Blood BLOOD SPECIMEN / Unknown Lab Venipuncture / Unknown 07/12/2025 6:14 AM ELEVATOR REPAIRER 07/12/2025 6:57 AM [facility] us Erinn Murillo MD LAB - CHEMISTRY ORDERABLES Fi nal Result [facility] [address] [place] [address], [facility] [phone] * (ABNORMAL) TRIGLYCERIDES BLOOD (07/10/2025 4:56 AM ELEVATOR REPAIRER) Only the most recent of3 resultswithin the time period is included. Pathologist [facility] Triglycerides 159(H) <150 mg/dL 07/10/2025 6:31 AM [facility] Comment: ATP III Classification of Triglycerides: <150 mg/dL: Normal 150 - 199 mg/dL: Borderline High 200 - 400 mg/dL: High >500 mg/dL: Very High Blood BLOOD SPECIMEN / Unknown Lab Venipuncture / Unknown 07/10/2025 4:56 AM ELEVATOR REPAIRER 07/10/2025 5:42 AM ELEVATOR REPAIRER Kamaljit Nicole MD LAB - CHEMISTRY ORDERABLES Fin al Result Performing Organization Address City/[facility]/ZIP Co de Phone Number [address] [address], [facility] [phone] * VANCOMYCIN LEVEL RANDOM (07/08/2025 3:07 AM ELEVATOR REPAIRER) Only the most recent of5 resultswithin the time period is included. Vancomycin Random 11.1 Therapeutic Ranges not established for random specimens ug/mL 07/08/2025 5:31 AM ELEVATOR REPAIRER [facility] Blood BLOOD SPECIMEN / Unknown Venipuncture / Unknown 07/08/2025 3:07 AM ELEVATOR REPAIRER 07/08/2025 3:15 AM ELEVATOR REPAIRER Narrative [facility] - 07/08/2025 5:31 AM ELEVATOR REPAIRER See institution protocol. Kamaljit Nicole MD LAB - CHEMISTRY ORDERABLES Fin al Result Performing Organization Address [facility] de Phone Number [address] [address], [facility] [phone] * XR Chest 1Vw Portable (07/07/2025 4:37 AM ELEVATOR REPAIRER) Only the most recent of7 resultswithin the time period is included. Anatomical Region Laterality Modality Chest Digital Radiogra phy 07/07/2025 12:1 0 PM ELEVATOR REPAIRER Narrative 07/07/2025 12:39 PM ELEVATOR REPAIRER PROCEDURE: XR CHEST 1VW PORTABLE, DATE/TIME OF EXAM: 07/07/2025 4:37 AM, LOCATION [facility] INDICATION: J96.01: Acute hypoxic respiratory failure (HCC) ADDITIONAL CLINICAL INFORMATION: Ordering Provider Reason For Exam: pulm congestion Technologist Note: Additional: COMPARISON: Chest radiograph dated 07/06 and multiple priors. FINDINGS/IMPRESSION: *Nasogastric tube outside the [id number]. Redemonstrated consolidation in the left lower lobe with mild deviation of the mediastinum to the left and loss of lung volume which may indicate atelectasis. Bronchovascular crowding of the right lung likely from atelectasis. Small left pleural effusion is not excluded. The right lung is unremarkable. No pneumothorax is visible. Report dictated by Cristino Tomlin MD, (Integrated [facility] resident). > Dictated by Government Documents Librarian I, Tray Jarvis MD have personally reviewed and interpreted this examination/study. > Interpreting Provider: Tray Jarvis MD on 07/07/2025 12:39 PM Procedure Note Tray Jarvis MD - 07/07/2025 PROCEDURE: XR CHEST 1VW PORTABLE, DATE/TIME OF EXAM: 07/07/2025 4:37AM, LOCATION [facility] INDICATION: J96.01: Acute hypoxic respiratory failure (HCC) ADDITIONAL CLINICAL INFORMATION: Ordering Provider Reason For Exam: pulm congestion Technologist Note: Additional: COMPARISON: Chest radiograph dated 07/06 and multiple priors. FINDINGS/IMPRESSION: *Nasogastric tube outside the [id number]. Redemonstrated consolidation in the left lower lobe with mild deviationof the mediastinum to the left and loss of lung volume which may indicate atelectasis. Bronchovascular crowding of the right lung likely from atelectasis. Small left pleural effusion is not excluded. The right lung is unremarkable. No pneumothorax is visible. Report dictated by Cristino Tomlin MD, ([facility]ated [facility] resident). > Dictated by Government Documents Librarian I, Tray Jarvis MD have personally reviewed and interpreted this examination/study. > Interpreting Provider: Tray Jarvis MD on 512:39 PM Kamaljit Nicole MD DIAGNOSTIC IMAGING ORDERABLES Final Result * CALCIUM IONIZED WHOLE BLOOD (07/07/2025 3:26 AM ELEVATOR REPAIRER) Only the most recent of6 resultswithin the time period is included. Calcium Ionized 1.21 mmol/L 07/07/2025 3:40 AM [facility] pH 7.35 7.35 - 7.45 pH 07/07/2025 3:40 AM [facility] Ionized Calcium pH Adjusted 1.19 1.19 - 1.34 mmol/L 07/07/2025 3:40 AM [facility] Blood BLOOD SPECIMEN / Unknown Venipuncture / Unknown 07/07/2025 3:26 AM ELEVATOR REPAIRER 07/07/2025 3:35 AM [facility] us Gregg Swenson DO LAB - CHEMISTRY ORDERABLES F inal Result [place] [id number] [place] [address], [facility] [phone] * (ABNORMAL) BLOOD GASES ART + COOX PANEL (07/07/2025 3:26 AM ELEVATOR REPAIRER) Only the most recent of11 resultswithin the time period is included. pH Arterial 7.33(L) 7.35 - 7.45 pH 07/07/2025 3:40 AM [facility] pO2 Arterial 64(L) 80 - 100 mmHg 07/07/2025 3:40 AM [facility] pCO2 Arterial 53(H) 35 - 45 mmHg 3:40 AM [facility] HCO3 Arterial 27.9 20.0 - 30.0 mmol/L 07/07/2025 3:40 AM [facility] BE Arterial 1.5 -2.0 - 2.0 mmol/L 07/07/2025 3:40 AM [facility] Oxyhemoglobin Arterial 90.2 % 07/07/2025 3:40 AM [facility] Dexoyhemoglobin (HHB) % 7.6 % 07/07/2025 3:40 AM [facility] Methemoglobin <0.8 0.0 - 2.0 % 07/07/2025 3:40 AM [facility] Carboxyhemoglobin 2.2(H) 0.0 - 2.0 % 2024 3:40 AM [facility] O2 Content Arterial 11.4 Interpret within clinical context ml/dL 07/07/2025 3:40 AM [facility] Hemoglobin by COOX 8.9(L) 12.0 - 17.6 g/dL 07/07/2025 3:40 AM [facility] O2 Saturation Arterial 92 90 - 100 % 07/07/2025 3:40 AM [facility] FI O2 Arterial 50.0 % 07/07/2025 3:40 AM [facility] Blood, arterial ARTERIAL BLOOD SPECIMEN / Unknown Arterial Puncture / Unknown 07/07/2025 3:26 AM ELEVATOR REPAIRER 07/07/2025 3:35 AM [facility] - 07/07/2025 3:40 AM [facility] Carboxyhemoglobin Normal Concentration: Non-smokers: 0-2%; Smokers: 0-9%; Toxic: >20% us Erinn Murillo MD LAB - BLOOD GASES ORDERABLES Final Result Performing Organization Address City/State/[facility] Co de Phone Number [facility] [address] [place] [address], [facility] [phone] * (ABNORMAL) DIFFERENTIAL MANUAL (07/06/2025 12:34 PM ELEVATOR REPAIRER) Only the most recent of2 resultswithin the time period is included. Neutrophil % 82(H) 41 - 74 % 07/06/2025 1:52 PM [facility] Lymphocyte % 7(L) 17 - 47 % 07/06/2025 1:52 PM [facility] Monocyte % 4 3 - 11 % 07/06/2025 1:52 PM [facility] Eosinophil % 4 0 - 7 % 07/06/2025 1:52 PM [facility] Basophil % 2 0 - 2 % 07/06/2025 1:52 PM [facility] Myelocyte % 1(H) 0% % 07/06/2025 1:52 PM [facility] Neutrophil Absolute 11.15(H) 1.60 - 7.50 x10E9/L 07/06/2025 1:52 PM [facility] Lymphocyte Absolute 0.95(L) 1.00 - 4.40 x10E9/L 07/06/2025 1:52 PM [facility] Monocyte Absolute 0.54 0.15 - 1.00 x10E9/L 07/06/2025 1:52 PM [facility] Eosinophil Absolute 0.54 0.00 - 0.60 x10E9/L 07/06/2025 1:52 PM [facility] Basophil Absolute 0.27(H) 0.00 - 0.13 x10E9/L 07/06/2025 1:52 PM [facility] RBC Morphology REVIEWED 07/06/2025 1:52 PM [facility] Blood BLOOD SPECIMEN / Unknown Venipuncture / Unknown 07/06/2025 12:34 PM ELEVATOR REPAIRER 07/06/2025 12:42 PM ELEVATOR REPAIRER us Kamaljit Nicole MD LAB - HEMATOLOGY ORDERABLES Fi nal Result [facility] [address] [place] [address], [facility] [phone] * IR Picc Line Insert (07/05/2025 2:30 PM ELEVATOR REPAIRER) Anatomical Region Laterality Modality Chest, Upper Extremity Other Narrative 07/05/2025 1:44 PM ELEVATOR REPAIRER Danny Piedra MD 07/10/2025 9:25 PM Department [...] soft tissue infection requiring excisional debridement of [id number], small bowel perforation resected and then left in discontinuity with Abthera placed. Indication: Nutritional Support Stock Checker: Angelo Washington RN [facility] Procedures: 1. Limited extremity ultrasound to assess vascular patency 2. Ultrasound guided access of the Right basilic vein. 3. Placement of peripherally inserted central line with magnetic tracking and ECG tip positioning system (Pointstic). Anesthesia: Local anesthesia with 5mL of 1% [...] magnetic tracking and ECG tip positioning system (Hello Agent), The peel-away sheath was removed, and the [...] in chart for discharge packet. Reviewed with: ROBYN Complications: none. All the ports were aspirated [...] MD IR ORDERABLES Final Result * CULTURE FUNGUS OTHER+FUNGUS SMEAR (07/05/2025 10:47 AM ELEVATOR REPAIRER) Only the most recent of2 resultswithin the time period is included. Culture No fungus isolated SHAMAR 07/30/2025 9:43 AM ELEVATOR REPAIRER [facility] MICROBIOLOGY Fungus Stain No yeast or hyphae seen 07/30/2025 9:43 AM ELEVATOR REPAIRER [facility] MICROBIOLOGY Fungus Stain No Pneumocystis jirovecii 07/30/2025 9:43 AM [facility] MICROBIOLOGY Microbiology SPECIMEN FROM LUNG OBTAINED BY BRONCHIAL WASHING PROCEDURE / Unknown Collection / Unknown 07/05/2025 10:47 AM ELEVATOR REPAIRER 07/05/2025 1:28 PM ELEVATOR REPAIRER Kamaljit Nicole MD LAB - MICROBIOLOGY ORDERABLES Final Result [facility]CRO[facility]OLOGY [address] [place] [address], [facility] [phone] * CULTURE BRONCHIAL WASHING+GRAM STAIN (07/05/2025 10:46 AM ELEVATOR REPAIRER) Culture No growth SHAMAR 07/07/2025 7:29 AM ELEVATOR REPAIRER [facility] MICROBIOLOGY Gram Stain Light Polymorphonuclear cells 07/07/2025 7:29 AM ELEVATOR REPAIRER [facility] MICROBIOLOGY Gram Stain No organisms seen 025 7:29 AM [facility] MICROBIOLOGY Microbiology (Lung, Left Lower Lobe) Collection / Unknown 07/05/2025 10:46 AM ELEVATOR REPAIRER 07/05/2025 10:52 AM ELEVATOR REPAIRER Kamaljit Nicole MD LAB - MICROBIOLOGY ORDERABLES Final Result [facility] MICRO[facility] [address] [place] [address], [facility] [phone] * (ABNORMAL) VANCOMYCIN LEVEL TROUGH (07/04/2025 3:29 PM ELEVATOR REPAIRER) Only the most recent of2 resultswithin the time period is included. Vancomycin Trough 9.7(L) 10.0 - 20.0 ug/mL 07/04/2025 4:21 PM ELEVATOR REPAIRER [facility] Blood BLOOD SPECIMEN / Unknown Venipuncture / Unknown 07/04/2025 3:29 PM ELEVATOR REPAIRER 07/04/2025 3:31 PM ELEVATOR REPAIRER Narrative [facility] - 07/04/2025 4:21 PM ELEVATOR REPAIRER See institution protocol. Erinn Murillo MD LAB - CHEMISTRY ORDERABLES Fi nal Result Performing Organization Address [facility]/ZIP Co de Phone Number [facility] [address] [place] [address], [facility] [phone] * XR Abdomen Kub Portable (07/04/2025 2:25 PM ELEVATOR REPAIRER) Only the most recent of2 resultswithin the time period is included. Anatomical Region Laterality Modality Abdomen Digital Radiogra phy 07/04/2025 9:15 PM ELEVATOR REPAIRER Narrative 07/04/2025 9:15 PM ELEVATOR REPAIRER PROCEDURE: XR ABDOMEN KUB PORTABLE, DATE/TIME OF EXAM: 07/04/2025 2:25 PM, LOCATION [facility] INDICATION: K43.7: Ventral hernia with gangrene ADDITIONAL CLINICAL INFORMATION: Ordering Provider Reason For Exam: NG tube positioning Technologist Note: Additional: COMPARISON: None. Nasogastric tube is in the stomach. Partially visualized distended loops of small bowel. > Interpreting Provider: Matias Finley MD on 07/04/2025 9:15 PM Procedure Note Matias Finley MD - 07/04/2025 PROCEDURE: XR ABDOMEN KUB PORTABLE, DATE/TIME OF EXAM: 07/04/2025 2:25PM, LOCATION [facility] INDICATION: K43.7: Ventral hernia with gangrene ADDITIONAL CLINICAL INFORMATION: Ordering Provider Reason For Exam: NG tube positioning Technologist Note: Additional: COMPARISON: None. Nasogastric tube is in the stomach. Partially visualized distended loopsof small bowel. > Interpreting Provider: Matias Finley MD on 07/04/2025 9:15 PM Erinn Murillo MD DIAGNOSTIC IMAGING ORDERABLES Final Result * CT Chest Wo Contrast (07/04/2025 9:44 AM ELEVATOR REPAIRER) Anatomical Region Laterality Modality Chest Computed Tomogra phy 07/04/2025 9:50 AM ELEVATOR REPAIRER Impressions 07/04/2025 9:55 AM ELEVATOR REPAIRER IMPRESSION: Atelectasis of the lower lobe of the left lung and dependent upper lobe associated with the decrease volume of the left hemithorax and leftward shift of the heart and mediastinum. Mild dependent atelectasis in the right lung base. Partially imaged upper abdomen shows ventral hernia. > Interpreting Provider: Tray Jarvis MD on 07/04/2025 9:55 AM Narrative 07/04/2025 9:55 AM ELEVATOR REPAIRER PROCEDURE: CT CHEST WO CONTRAST DATE/TIME OF [...] Result * PATHOLOGY TISSUE (07/03/2025 8:49 AM ELEVATOR REPAIRER) Only the most recent of2 resultswithin the time period is included. Case Report Surgical Pathology Report Case: [id number] Authorizing Provider: Erinn Murillo MD Collected: 07/03/2025 08:49 AM Ordering Location: [facility] ICU Received: 07/03/2025 10:55 AM Pathologist: Jackie Tomlin MD Specimen: Small Bowel, small bowel 07/04/2025 12:57 PM [facility] Final Diagnosis Small bowel, resection (A) - Portion of small bowel with reactive changes - Serosal adhesions and serositis - Margins of resection with viable mucosa 07/04/2025 12:57 PM [facility] at 1257 ELEVATOR REPAIRER Microscopic Description and Comment Microscopic examination substantiates the final diagnosis. 07/04/2025 12:57 PM [facility] Clinical History ventral hernia 07/04/2025 12:57 PM [facility] Gross Description The requisition and [...] mucosa detached fibroadipose tissue./ANC 07/04/2025 12:57 PM [facility] Pathologist Location at [facility] 07/04/2025 12:57 PM [facility] Disclaimer The performance characteristics of all immunohistochemical and indirect immunofluorescence stains (if any) cited in this report were determined by the Histopathology Laboratory of [facility]. Some of these tests were developed by [...] the attending (teaching) pathologist. 07/04/2025 12:57 PM [facility] Embedded Images 07/04/2025 12:57 PM [facility] Resection without Tumor SMALL BOWEL RESECTION SPECIMEN / Unknown 07/03/2025 8:49 AM ELEVATOR REPAIRER 07/03/2025 10:55 AM ELEVATOR REPAIRER Comment:Pre-op diagnosis: Incarcerated ventral hernia [K43.6] us Erinn Murillo MD LAB - PATHOLOGY/CYTOLOGY BLAYNE WEBER Final Result [facility] [address] [id number] [phone] * (ABNORMAL) BLOOD GAS+COOX+LYTES+METAB ARTERIAL POCT (07/03/2025 8:29 AM ELEVATOR REPAIRER) Only the most recent of4 resultswithin the time period is included. pH Arterial 7.33(L) 7.35 - 7.45 pH 07/03/2025 8:29 AM [facility] pO2 Arterial 107(H) 80 - 100 mmHg 07/03/2025 8:29 AM [facility] pCO2 Arterial 49(H) 35 - 45 mmHg 8:29 AM [facility] HCO3 Arterial 25.8 20.0 - 30.0 mmol/L 07/03/2025 8:29 AM [facility] BE Arterial -0.5 -2.0 - 2.0 mmol/L 07/03/2025 8:29 AM [facility] Oxyhemoglobin Arterial 97.2 % 07/03/2025 8:29 AM [facility] Dexoyhemoglobin (HHB) % 1.5 % 07/03/2025 8:29 AM [facility] Methemoglobin <0.8 0.0 - 2.0 % 07/03/2025 8:29 AM [facility] Carboxyhemoglobin 1.1 0.0 - 2.0 % 2024 8:29 AM [facility] Comment:Carboxyhemoglobin No rmal Concentration: Non-smokers: 0-2%; Smokers: 0- 9%; Toxic: >20% O2 Content Arterial 14.7 Interpret within clinical context ml/dL 07/03/2025 8:29 AM [facility] Hemoglobin by COOX 10.6(L) 12.0 - 17.6 g/dL 07/03/2025 8:29 AM [facility] O2 Saturation Arterial 99 90 - 100 % 07/03/2025 8:29 AM [facility] Sodium Whole Blood 137 135 - 145 mmol/L 07/03/2025 8:29 AM [facility] Potassium Whole Blood 4.0 3.5 - 5.5 mmol/L 07/03/2025 8:29 AM [facility] Chloride WB 105 78 - 107 mmol/L 07/03/2025 8:29 AM [facility] Calcium Ionized 1.20 mmol/L 8:29 AM [facility] Ionized Calcium pH Adjusted 1.17(L) 1.19 - 1.34 mmol/L 07/03/2025 8:29 AM [facility] Anion Gap (AG) Arterial 6 6 - 16 mmol/L 07/03/2025 8:29 AM [facility] Glucose WB 144(H) 70 - 99 mg/dL 07/03/2025 8:29 AM [facility] Lactic Acid Whole Blood 1.1 <=2.0 mmol/L 07/03/2025 8:29 AM [facility] Blood, arterial ARTERIAL BLOOD SPECIMEN / Unknown 07/03/2025 8:29 AM [facility] 07/03/2025 8:30 AM [facility] us Erinn Murillo MD LAB - POINT OF CARE ORDERABLE S Final Result [facility] [address] [place] [address], [facility] [phone] * EKG 12-Lead (07/03/2025 6:29 AM [facility]) Ventricular Rate 50 BPM [facility] QRS Duration ms 164 ms [facility] Q-T Interval ms 476 ms [facility] QTC Calculation (Bezet) 433 ms [facility] Calculated R Redgranite 21 degrees [facility] Calculated T Redgranite -36 degrees [facility] Interpretation EKG ATRIAL FIBRILLATION WITH SLOW VENTRICULAR RESPONSE NON-SPECIFIC INTRA-VENTRICUL AR CONDUCTION BLOCK CANNOT RULE OUT SEPTAL INFARCT , AGE UNDETERMINED POSSIBLE LATERAL INFARCT , AGE UNDETERMINED ABNORMAL ECG NO PREVIOUS ECGS AVAILABLE Confirmed by JEANNA CHILD DO ([id number]) on 07/04/2025 10:27:18 PM [facility] MUSE 07/03/2025 6:29 AM ELEVATOR REPAIRER 07/04/2025 10:27 PM ELEVATOR REPAIRER us Erinn Murillo MD ECG ORDERABLES Edited Result - Final [facility] * XR Chest 1Vw (07/03/2025 4:23 AM ELEVATOR REPAIRER) Only the most recent of2 resultswithin the time period is included. Anatomical Region Laterality Modality Chest Digital Radiogra phy 07/03/2025 8:48 AM ELEVATOR REPAIRER Narrative 07/03/2025 1:03 PM ELEVATOR REPAIRER PROCEDURE: XR CHEST 1VW, DATE/TIME OF EXAM: 07/03/2025 4:24 AM, LOCATION [facility] INDICATION: K43.7: Ventral hernia with gangrene ADDITIONAL [...] by Damir Frances MD > Dictated by Government Documents Librarian I, Ivis Waller MD have personally reviewed and interpreted this examination/study. > Interpreting Provider: Ivis Waller MD on 07/03/2025 1:03 PM Procedure Note Ivis Waller MD - 07/03/2025 PROCEDURE: XR CHEST 1VW, DATE/TIME OF EXAM: 07/03/2025 4:24 AM, LOCATION [facility] INDICATION: K43.7: Ventral hernia with gangrene ADDITIONAL [...] by Damir Frances MD > Dictated by Government Documents Librarian I, Ivis Waller MD have personally reviewed and interpreted this examination/study. > Interpreting Provider: Ivis Waller MD on 07/03/2025 1:03 PM Kamaljit Nicole MD DIAGNOSTIC IMAGING ORDERABLES Final Result * LACTIC ACID BLOOD (07/02/2025 10:52 AM ELEVATOR REPAIRER) Lactic Acid-Stat 1.5 <=2.0 mmol/L 07/02/2025 11:33 AM ELEVATOR REPAIRER [facility] Blood BLOOD SPECIMEN / Unknown Venipuncture / Unknown 07/02/2025 10:52 AM ELEVATOR REPAIRER 07/02/2025 11:03 AM ELEVATOR REPAIRER us Kamaljit Nicole MD LAB - CHEMISTRY ORDERABLES Fin al Result Performing Organization Address City/[facility]/ZIP Co de Phone Number [address] [address], [facility] [phone] * BLOOD GAS ART+LYTES+METAB+COOX POC NOTIF (07/02/2025 9:24 AM ELEVATOR REPAIRER) Comment Notification Label Only - See Separate Report 07/03/2025 9:30 AM ELEVATOR REPAIRER [facility] Other MISCELLANEOUS SAMPLES / Unknown 07/02/2025 9:24 AM ELEVATOR REPAIRER 07/03/2025 8:28 AM ELEVATOR REPAIRER Estrada Mcdermott DO LAB - BLOOD GASES ORDERAB LES Final Result Performing Organization Address [facility] Co de Phone Number [address] [address], [facility] [phone] * LACTIC ACID WHOLE BLOOD (07/02/2025 5:51 AM ELEVATOR REPAIRER) Only the most recent of2 resultswithin the time period is included. Lactic Acid Whole Blood 1.6 <=2.0 mmol/L 07/02/2025 6:07 AM ELEVATOR REPAIRER [facility] Blood WHOLE BLOOD SPECIMEN / Unknown Venipuncture / Unknown 07/02/2025 5:51 AM ELEVATOR REPAIRER 07/02/2025 6:01 AM ELEVATOR REPAIRER Gregg Swenson DO LAB - CHEMISTRY ORDERABLES F inal Result Performing Organization Address City/[facility]/ZIP Co de Phone Number [address] [address], [facility] [phone] * BLOOD TYPE VERIFICATION (07/02/2025 12:49 AM ELEVATOR REPAIRER) ABO Rh A POS 07/02/2025 1:2 0 AM ELEVATOR REPAIRER [facility] Blood Bank BLOOD SPECIMEN / Unknown Venipuncture / Unknown 07/02/2025 12:49 AM ELEVATOR REPAIRER 07/02/2025 12:49 AM ELEVATOR REPAIRER Gregg Swenson DO LAB - BLOOD BANK ORDERABLES Final Result Performing Organization Address City/[facility]/ZIP Co de Phone Number [facility] [address] [place] [address], [facility] [phone] * HEMOGLOBIN A1C (07/02/2025 12:32 AM ELEVATOR REPAIRER) Hemoglobin A1c 5.4 <=5.6 % 07/02/2025 8:45 AM [facility] Estimated Average Glucose 108 mg/dL 07/02/2025 8:45 AM [facility] Comment: HbA1c Interpretation: Normal : < 5.7% Pre-diabetes: 5.7-6.4% Diabetes: Equal to or greater than 6.5% Test results diagnostic of diabetes should be repeated for confirmation. Treatment target values recommended by ADA and other clinical organizations should be used to evaluate metabolic control in patients. Reference: [place] [employer], Standards of Care in Diabetes -2020 In patients 70 years and older consider HbA1c target range of 7.0-7.5% (Reference: Jad Hanks et al. JAMDA. 2012) The Sebia assay for the measurement of HbA1c is a National Glycohemoglobin Standardization Program (NGSP) certified method. Blood BLOOD SPECIMEN / Unknown Venipuncture / Unknown 07/02/2025 12:32 AM ELEVATOR REPAIRER 07/02/2025 12:48 AM ELEVATOR REPAIRER Gregg Swenson DO LAB - CHEMISTRY ORDERABLES F inal Result Performing Organization Address City/[facility]/ZIP Co de Phone Number [facility] [address] [place] [address], [facility] [phone] * MRSA PCR (07/02/2025 12:31 AM ELEVATOR REPAIRER) MRSA DNA by PCR Not detected Not detected 07/02/2025 6:01 AM [facility] Microbiology SPECIMEN FROM NASAL FOSSAE / Unknown Collection / Unknown 07/02/2025 12:31 AM ELEVATOR REPAIRER 07/02/2025 12:46 AM ELEVATOR REPAIRER Narrative [facility] - 07/02/2025 6:01 AM ELEVATOR REPAIRER Methicillin-resistant Staphylococcus aureus (MRSA) DNA is not detected (presumed not colonized with MRSA). us Gregg Swenson DO LAB - MICROBIOLOGY ORDERABLE S Final Result [facility] [address] [place] [address], [place] [phone] * (ABNORMAL) URINALYSIS REFLEX TO MICROSCOPIC NO CULTURE (07/02/2025 12:31 AM ELEVATOR REPAIRER) Color UA Yellow Yellow, Straw 07/02/2025 12:52 AM [facility] Clarity UA Turbid(A) Clear 07/02/2025 12:52 AM [facility] Glucose UA Normal Normal 07/02/2025 12:52 AM [facility] Bilirubin UA Negative Negative 07/02/2025 12:52 AM [facility] Ketone UA Negative Negative 07/02/2025 12:52 AM [facility] Specific Jachin UA 1.044(H) 1.005 - 1.030 07/02/2025 12:52 AM [facility] Blood UA Negative Negative 07/02/2025 12:52 AM [facility] pH UA 5.5 5.0 - 8.0 07/02/2025 12:52 AM [facility] Protein UA Trace(A) Negative 07/02/2025 12:52 AM [facility] Urobilinogen UA Normal Normal mg/dL 07/02/2025 12:52 AM [facility] Nitrite UA Negative Negative 07/02/2025 12:52 AM [facility] Leukocyte Esterase UA Negative Negative 07/02/2025 12:52 AM [facility] Urine Microscopy Urine microscopy not indicated 07/02/2025 12:52 AM [facility] Urine URINE SPECIMEN OBTAINED BY CLEAN CATCH PROCEDURE / Unknown Collection / Unknown 07/02/2025 12:31 AM ELEVATOR REPAIRER 07/02/2025 12:45 AM ELEVATOR REPAIRER us Gregg Swenson DO LAB - URINALYSIS ORDERABLES Final Result [facility] [address] [address], [facility] [phone] * (ABNORMAL) NT-PRO BNP (07/02/2025 12:30 AM ELEVATOR REPAIRER) NT-proBNP 5,883.4(H) <900.0 pg/mL 07/02/2025 1:41 AM ELEVATOR REPAIRER [facility] Blood BLOOD SPECIMEN / Unknown Venipuncture / Unknown 07/02/2025 12:30 AM ELEVATOR REPAIRER 07/02/2025 12:48 AM ELEVATOR REPAIRER Narrative [facility] - 07/02/2025 1:41 AM ELEVATOR REPAIRER NT-pro-BNP values below 300 pg/mL, for individuals 18 or above, have a 99% negative predictive value for excluding acute congestive heart failure (CHF). In patients with eGFR less than 60 mL/min/1.73 m2, caution should be used when interpreting NT-pro-BNP results. Results should be assessed in conjunction with the patient s medical history, clinical examination, and other findings. NT-pro-BNP is measured on the Digital [employer] analyzer using chemiluminescent microparticle immunoassay (CMIA) technology. Gregg Swenson DO LAB - CHEMISTRY ORDERABLES F inal Result [address] [address], [facility] [phone] * (ABNORMAL) FIBRINOGEN ACTIVITY (07/02/2025 12:30 AM ELEVATOR REPAIRER) Fibrinogen Clauss 1,052(H) 200 - 400 mg/dL 07/02/2025 1:20 AM ELEVATOR REPAIRER [facility] Blood BLOOD SPECIMEN / Unknown Venipuncture / Unknown 07/02/2025 12:30 AM ELEVATOR REPAIRER 07/02/2025 12:48 AM ELEVATOR REPAIRER Gregg Swenson DO LAB - COAGULATION ORDERABLES Final Result [address] [address], [facility] [phone] * TSH (07/02/2025 12:30 AM ELEVATOR REPAIRER) TSH 3.582 0.350 - 4.940 uIU/mL 07/02/2025 1:41 AM ELEVATOR REPAIRER [facility] Blood BLOOD SPECIMEN / Unknown Venipuncture / Unknown 07/02/2025 12:30 AM ELEVATOR REPAIRER 07/02/2025 12:48 AM ELEVATOR REPAIRER us Gregg Sheffield Messi DO LAB - CHEMISTRY ORDERABLES F inal Result [facility] [address] [place] [address], [facility] [phone] * XR Abdomen Kub (07/02/2025 12:02 AM ELEVATOR REPAIRER) Anatomical Region Laterality Modality Abdomen Digital Radiogra phy 07/02/2025 7:29 AM ELEVATOR REPAIRER Impressions 07/02/2025 9:50 AM ELEVATOR REPAIRER IMPRESSION: Nonobstructive bowel gas pattern. Report dictated by Damir Frances MD post surgery > Dictated by Government Documents Librarian I, Ivis Waller MD have personally reviewed and interpreted this examination/study. > Interpreting Provider: Ivis Waller MD on 07/02/2025 9:50 AM Narrative 07/02/2025 9:50 AM ELEVATOR REPAIRER PROCEDURE: XR ABDOMEN KUB, DATE/TIME OF EXAM: 07/02/2025 12:02 AM, LOCATION [facility] INDICATION: R10.84: Generalized abdominal pain ADDITIONAL CLINICAL [...] DATE/TIME OF EXAM: 07/02/2025 12:02 AM, LOCATION [facility] INDICATION: R10.84: Generalized abdominal pain ADDITIONAL CLINICAL [...] Frances MD post surgery > Dictated by Government Documents Librarian I, Ivis Waller MD have personally reviewed and interpreted this examination/study. > Interpreting Provider: Ivis Waller MD on 07/02/2025 9:50 AM us Gregg Swenson DO DIAGNOSTIC IMAGING ORDERABLE S Final Result * SUSCEPTIBILITY FUNGUS/YEAST (07/01/2025 11:50 PM ELEVATOR REPAIRER) Prelim Report SEE NOTE 07/09/2025 5:24 PM ELEVATOR REPAIRER [facility] ([facility]) Comment: Specimen received and in progress. INTERPRETIVE INFORMATION: Susceptibility, Fungal (Yeasts and Molds) Units = ug/mL YSTMIC Amphotericin B 1 None Rezafungin 0.016 Suscept Anidulafungin 0.03 Suscept Micafungin 0.12 Suscept Voriconazole 0.25 Suscept Isavuconazole 0.25 None Posaconazole 0.25 None Itraconazole 0.25 None Fluconazole Resist Caspofungin 0.25 Suscept Performed By: [facility] [address] [place] [address] Oil Separator: Chava Osborne MD, PhD CLIA Number: [id number] Final Report SEE NOTE 07/09/2025 5:24 PM ELEVATOR REPAIRER [facility] ([facility]) Comment: Pichia kudriavzevii (Previously Mignon krusei) Organism identified by client INTERPRETIVE INFORMATION: Susceptibility, Fungal (Yeasts and Molds) Units = ug/mL YSTMIC Amphotericin B 1 None Rezafungin 0.016 Suscept Anidulafungin 0.03 Suscept Micafungin 0.12 Suscept Voriconazole 0.25 Suscept Isavuconazole 0.25 None Posaconazole 0.25 None Itraconazole 0.25 None Fluconazole Resist Caspofungin 0.25 Suscept Performed By: [facility] [employer] [address] [place] [address] Oil Separator: Chava Osborne MD, PhD CLIA Number: [id number] Other PERITONEAL FLUID / Unknown Collection / Unknown 07/01/2025 11:50 PM ELEVATOR REPAIRER 07/02/2025 1:34 AM ELEVATOR REPAIRER Narrative [facility] ([facility]) - 07/09/2025 5:24 PM ELEVATOR REPAIRER SHAMAR=Minimum Inhibitory Concentration MEC=Minimum Effective Concentration SHAMAR=Minimum Inhibitory Concentration MEC=Minimum Effective Concentration SHAMAR=Minimum Inhibitory Concentration MEC=Minimum Effective Concentration SHAMAR=Minimum Inhibitory Concentration MEC=Minimum Effective Concentration SHAMAR=Minimum Inhibitory Concentration MEC=Minimum Effective Concentration SHAMAR=Minimum Inhibitory Concentration MEC=Minimum Effective Concentration Gregg Swenson DO LAB - MICROBIOLOGY ORDERABLE S Final Result [facility] ([facility]) [address] [place] [address], [facility] * (ABNORMAL) CULTURE FLUID+GRAM STAIN (07/01/2025 11:50 PM ELEVATOR REPAIRER) Culture Heavy Escherichia coli(AA) SHAMAR 07/10/2025 7:32 AM ELEVATOR REPAIRER [facility] Culture Heavy Streptococcus anginosus(AA) SHAMAR 07/10/2025 7:32 AM ELEVATOR REPAIRER [facility] Culture Rare Mignon krusei(AA) 07/10/2025 7:32 AM ELEVATOR REPAIRER [facility] Comment: Referred to [facility] for susceptibility [place] [address] See separate reference laboratory report Gram Stain Light Polymorphonuclear cells(AA) 07/10/2025 7:32 AM ELEVATOR REPAIRER [facility] Gram Stain Heavy Gram-positive cocci(AA) 07/10/2025 7:32 AM ELEVATOR REPAIRER [facility] Gram Stain Heavy Gram-negative bacilli(AA) 07/10/2025 7:32 AM ELEVATOR REPAIRER [facility] Gram Stain Moderate Gram-positive bacilli(AA) 07/10/2025 7:32 AM ELEVATOR REPAIRER [facility] Gram Stain Rare Yeast(AA) 07/10/2025 7:32 AM [facility] Other PERITONEAL FLUID / Unknown Collection / Unknown 07/01/2025 11:50 PM ELEVATOR REPAIRER 07/02/2025 1:34 AM ELEVATOR REPAIRER Narrative Organism Antibiotic Method Susceptibility Escherichia coli [...] LAB - MICROBIOLOGY ORDERABLE S Final Result [facility] [address] [place] [address], [facility] [phone] * (ABNORMAL) CULTURE ANAEROBE (07/01/2025 11:50 PM ELEVATOR REPAIRER) Culture Moderate Phocaeicola (formerly Bacteroides) vulgatus(AA) 07/08/2025 10:13 AM [facility] Comment:Beta-lactamase posit ester Culture Moderate Prevotella denticola(AA) 07/08/2025 10:13 AM ELEVATOR REPAIRER [facility] Comment:Beta-lactamase negat ester Culture Moderate Clostridium paraputrificum( AA) 07/08/2025 10:13 AM [facility] Comment:Beta-lactamase negat ester Culture Moderate Finegoldia magna(AA) 07/08/2025 10:13 AM [facility] Microbiology PERITONEAL FLUID / Unknown Collection / Unknown 07/01/2025 11:50 PM ELEVATOR REPAIRER 07/01/2025 11:55 PM ELEVATOR REPAIRER Narrative [facility] - 07/08/2025 10:13 AM ELEVATOR REPAIRER Caution: The absence of beta-lactamase does not mean that the organism is susceptible to beta-lactams. Isolates may still be resistant to beta-lactams by a mechanism other than beta-lactamase production. Gregg Swenson DO LAB - MICROBIOLOGY ORDERABLE S Final Result [facility] [address] [place] [address], [facility] [phone] * IV PLACEMENT PERFORMABLE (07/01/2025 11:12 PM ELEVATOR REPAIRER) Narrative Nik Gallo MD - 07/01/2025 11:12 PM ELEVATOR REPAIRER Nik Gallo MD 07/01/2025 11:12 PM Peripheral IV Line Placement: Patient Location: OR Procedure: IV start (25633) Procedure Section: Skin Prep: alcohol. Orientation: right Location: forearm Local Anesthetic Used? No Catheter Gauge: 18 Number of Attempts: 1. Procedure Tolerance: performed while patient under general anesthesia. Staff Section Anesthesia Provider: Nik Gallo MD, Performed the procedure Estrada Mcdermott DO GENERAL ANESTHESIA ORDERA BLES Final Result * IV PLACEMENT PERFORMABLE (07/01/2025 11:12 PM ELEVATOR REPAIRER) Nik Meyer MD - 07/01/2025 11:12 PM ELEVATOR REPAIRER Nik Gallo MD 07/01/2025 11:12 PM Peripheral IV Line Placement: Patient Location: OR Procedure: IV start ([id number]) Procedure Section: Skin Prep: alcohol. Orientation: left Location: antecubital Local Anesthetic Used? No Catheter Gauge: 14 Number of Attempts: 1. Adjuncts: ultrasound Procedure Tolerance: performed while patient under general anesthesia. Staff Section Anesthesia Provider: Nik Gallo MD, Performed the procedure Result [facility] Estrada Mcdermott DO GENERAL ANESTHESIA ORDERA BLES Final Result * ARTERIAL LINE PERFORMABLE (07/01/2025 9:20 PM ELEVATOR REPAIRER) Nik Meyer MD - 07/01/2025 9:20 PM ELEVATOR REPAIRER Nik Gallo MD 07/01/2025 9:20 PM Arterial Line Placement Procedure Note Patient Location: OR. Procedure: Arterial Line ([id number]) Procedure Section Indications: continuous blood pressure monitoring. [...] MD, Performed the procedure Provider #1: Estrada Mcdemrott DO. Result [facility] Estrada Mcdermott DO GENERAL ANESTHESIA ORDERA BLES Final Result * ETT LINE PERFORMABLE (07/01/2025 9:19 PM ELEVATOR REPAIRER) Nik Meyer MD - 07/01/2025 9:19 PM ELEVATOR REPAIRER Nik Gallo MD 07/01/2025 9:20 PM Endotracheal Tube Placement: Patient Location: OR. Procedure: intubation (69651) Procedure Section: Sedation: under general anesthesia. Indications [...] RBC UNIT(S), 6 Units (07/01/2025 8:11 PM ELEVATOR REPAIRER) Unit Description AS1 LR PRBC [facility] Unit ABO A [facility] Unit POS [facility] Product Number R02 [facility] Unit Donor # [id number] [facility] Unit Status released [facility] Product Code [id number] [facility] Blood Type Barcode 6200 [facility] Expiration Date S BLOOD BANK LAB Unit Description AS1 LR PRBC [facility] Unit ABO A [facility] Unit POS [facility] Product Number R02 [facility] Unit Donor # [id number] [facility] Unit Status released [facility] Product Code [id number] [facility] Blood Type Barcode 6200 [facility] Expiration Date [facility] Unit Description AS1 LR PRBC [facility] Unit ABO A [facility] Unit POS [facility] Product Number R02 [facility] Unit Donor # [id number] [facility] Unit Status released [facility] Product Code [id number] [facility] LAB Blood Type Barcode 6200 [facility] Expiration Date S BLOOD BANK LAB Unit Description AS1 LR PRBC [facility] Unit ABO A [facility] Unit Rh POS [facility] Product Number R02 [facility] Unit Donor # [id number] [facility] Unit Status released [facility] Product Code [id number] [facility] Blood Type Barcode 6200 [facility] Expiration Date S BLOOD BANK LAB Unit Description AS1 LR PRBC [facility] Unit ABO A [facility] Unit Rh POS [facility] Product Number R02 [facility] Unit Donor # [id number] [facility] Unit Status released [facility] Product Code [id number] [facility] Blood Type Barcode 6200 [facility] Expiration Date S BLOOD BANK LAB Unit Description AS1 LR PRBC [facility] Unit ABO A [facility] Unit Rh POS [facility] Product Number R02 [facility] Unit Donor # [id number] [facility] Unit Status released [facility] Product Code [id number] [facility] Blood Type Barcode 6200 [facility] Expiration Date S BLOOD BANK LAB Blood Bank BLOOD SPECIMEN / Unknown 07/01/2025 8:11 PM ELEVATOR REPAIRER 07/01/2025 8:16 PM ELEVATOR REPAIRER Carlos Parkinson MD LAB - BLOOD BANK ORDERABLES Fi nal Result [facility] [address] [place] [address], [facility] [phone] * PREPARE PLATELET PHERESIS UNIT(S), 2 Units (07/01/2025 8:11 PM ELEVATOR REPAIRER) Unit Description N/A [facility] Blood Bank BLOOD SPECIMEN / Unknown 07/01/2025 8:11 PM ELEVATOR REPAIRER 07/01/2025 8:16 PM ELEVATOR REPAIRER Carlos Parkinson MD LAB - BLOOD BANK ORDERABLES Fi nal Result [facility] [address] [place] [address], [facility] [phone] * PREPARE FFP UNIT(S), 6 Units (07/01/2025 8:11 PM ELEVATOR REPAIRER) Unit Description N/A [facility] Blood Bank BLOOD SPECIMEN / Unknown 07/01/2025 8:11 PM ELEVATOR REPAIRER 07/01/2025 8:16 PM ELEVATOR REPAIRER Carlos Parkinson MD LAB - BLOOD BANK ORDERABLES Fi nal Result Performing Organization Address [facility] Co de Phone Number [facility] [address] [place] [address], [facility] [phone] * TYPE + SCREEN PANEL (07/01/2025 8:11 PM ELEVATOR REPAIRER) Antibody Screen NEG 8:59 PM ELEVATOR REPAIRER [facility] ABO Rh A POS 07/01/2025 8:59 PM ELEVATOR REPAIRER [facility] Blood Bank BLOOD SPECIMEN / Unknown Venipuncture / Unknown 07/01/2025 8:11 PM ELEVATOR REPAIRER 07/01/2025 8:16 PM ELEVATOR REPAIRER rGegg Swenson DO LAB - BLOOD BANK ORDERABLES Final Result Performing Organization Address [facility] Co de Phone Number [facility] [address] [place] [address], [facility] [phone] * (ABNORMAL) TEG 6 GLOBAL HEMOSTASIS W/ LYSIS (07/01/2025 7:18 PM ELEVATOR REPAIRER) Citrated Kaolin R (Reaction Time) 9.3(H) 4.6 - 9.1 min 07/01/2025 8:38 PM ELEVATOR REPAIRER [facility] Comment:CK R result above no rmal range. Consistent with hypocoagulable clotting factors. Consider presence of clotting factor deficiency and/or anti-coagulant. Citrated Kaolin LY30 (Lysis) 0.0 0.0 - 2.6 % 07/01/2025 8:38 PM [facility] Citrated Functional Fibrinogen MA (Max Amplitude) >52.0(H) 15.0 - 32.0 mm 07/01/2025 8:38 PM [facility] Comment:CFF MA above normal range. Consistent with elevated fibrinogen contribution to clot strength. Citrated RapidTEG MA (Max Amplitude) 74.6(H) 52.0 - 70.0 mm 07/01/2025 8:38 PM [facility] Blood BLOOD SPECIMEN / Unknown Venipuncture / Unknown 07/01/2025 7:18 PM ELEVATOR REPAIRER 07/01/2025 7:38 PM ELEVATOR REPAIRER Carlos Parkinson MD LAB - HEMATOLOGY ORDERABLES Fi nal Result [facility] [address] [place] [address], [facility] [phone] * (ABNORMAL) TEG 6S PLATELET MAPPING (07/01/2025 7:18 PM ELEVATOR REPAIRER) TEGPLM (Max Amplitude) Koalin >71.0(H) 53.0 - 68.0 mm 07/01/2025 8:19 PM [facility] TEGPLM (Max Amplitude) ACTF >30.0(H) 2.0 - 19.0 mm 07/01/2025 8:19 PM [facility] TEGPLM (Max Amplitude) ADP 55.2 45.0 - 69.0 mm 07/01/2025 8:19 PM [facility] TEGPLM (Max Amplitude) AA 67.8 51.0 - 71.0 mm 07/01/2025 8:19 PM [facility] TEGPLM %Inhibition ADP 07/01/2025 8:19 PM [facility] Comment:1 or more values are outside of the TEG maximum reportable ranges, calculation cannot be determined. TEGPLM %Inhibition AA 07/01/2025 8:19 PM [facility] Comment:1 or more values are outside of the TEG maximum reportable ranges, calculation cannot be determined. TEGPLM %Aggregation ADP 07/01/2025 8:19 PM [facility] Comment:1 or more values are outside of the TEG maximum reportable ranges, calculation cannot be determined. TEGPLM % Aggregation AA 07/01/2025 8:19 PM ELEVATOR REPAIRER [facility] Comment:1 or more values are outside of the TEG maximum reportable ranges, calculation cannot be determined. Blood BLOOD SPECIMEN / Unknown Venipuncture / Unknown 07/01/2025 7:18 PM ELEVATOR REPAIRER 07/01/2025 7:38 PM ELEVATOR REPAIRER us Cralos Parkinson MD LAB - HEMATOLOGY ORDERABLES Fi nal Result Performing Organization Address [facility]/ZIP Co de Phone Number [address] [address], [facility] [phone] * LACTIC ACID BLOOD REFLEX TO REPEAT (07/01/2025 7:18 PM ELEVATOR REPAIRER) Lactic Acid-Stat 1.9 <=2.0 mmol/L 07/01/2025 7:56 PM ELEVATOR REPAIRER [facility] Blood BLOOD SPECIMEN / Unknown Venipuncture / Unknown 07/01/2025 7:18 PM ELEVATOR REPAIRER 07/01/2025 7:25 PM ELEVATOR REPAIRER us Carlos Parkinson MD LAB - CHEMISTRY ORDERABLES Fin al Result Performing Organization Address [facility] Co de Phone Number [address] [address], [place] [phone] * (ABNORMAL) PROLACTIN (07/01/2025 7:18 PM ELEVATOR REPAIRER) Prolactin 18.7(H) 2.1 - 17.7 ng/mL 07/04/2025 3:16 PM ELEVATOR REPAIRER [facility] ([facility]) Comment: REFERENCE INTERVAL: Prolactin Access complete set of age- and/or gender-specific reference intervals for this test in the [facility] Test Directory ([facility]). Performed By: [facility] [address] [place] [address] Oil Separator: Chava Osborne MD, PhD CLIA Number: [id number] Blood BLOOD SPECIMEN / Unknown Venipuncture / Unknown 07/01/2025 7:18 PM ELEVATOR REPAIRER 07/01/2025 7:24 PM ELEVATOR REPAIRER us Carlos Parkinson MD LAB - CHEMISTRY ORDERABLES Fin al Result [facility]) [address] [place] [address], [facility] * (ABNORMAL) COMPREHENSIVE METABOLIC PANEL (07/01/2025 7:18 PM ELEVATOR REPAIRER) BUN 46(H) 7 - 26 mg/dL 07/01/2025 7:54 PM [facility] Creatinine 1.74(H) 0.71 - 1.16 mg/dL 07/01/2025 7:54 PM [facility] Sodium 138 136 - 145 mmol/L 07/01/2025 7:54 PM [facility] Potassium 5.0(H) 3.5 - 4.5 mmol/L 07/01/2025 7:54 PM [facility] Chloride 105 98 - 107 mmol/L 07/01/2025 7:54 PM [facility] CO2 24 22 - 29 mmol/L 07/01/2025 7:54 PM [facility] Glucose 90 70 - 99 mg/dL 07/01/2025 7:54 PM [facility] Calcium 8.8 8.4 - 10.2 mg/dL 07/01/2025 7:54 PM [facility] Protein Total 6.5 6.0 - 8.3 g/dL 07/01/2025 7:54 PM [facility] Albumin 2.1(L) 3.4 - 5.0 g/dL 07/01/2025 7:54 PM [facility] Bilirubin Total 1.8(H) 0.2 - 1.2 mg/dL 07/01/2025 7:54 PM [facility] Alkaline Phosphatase 115 40 - 150 U/L 07/01/2025 7:54 PM [facility] ALT 41 5 - 55 U/L 07/01/2025 7:54 PM [facility] AST 44(H) 5 - 34 U/L 07/01/2025 7:54 PM [facility] Anion Gap 9 6 - 16 07/01/2025 7:54 PM [facility] BUN/Creatinine Ratio 26(H) 7 - 23 07/01/2025 7:54 PM [facility] Osmolality Calculated 297(H) 275 - 295 mOsm/kg 07/01/2025 7:54 PM [facility] Albumin/Globulin Ratio 0.5(L) 1.1 - 2.3 07/01/2025 7:54 PM [facility] eGFR by CKD-EPI 43(L) >=90 mL/min/1.7 3 m2 07/01/2025 7:54 PM [facility] Comment:Estimated Glomerular Filtration Rate (eGFR) calculated using the CKD-EPI Creatinine Equation (2020), per the National Kidney Foundation and [place] [employer]ph[employer] recommendations. Blood BLOOD SPECIMEN / Unknown Venipuncture / Unknown 07/01/2025 7:18 PM ELEVATOR REPAIRER 07/01/2025 7:25 PM [facility] Calros Parkinson MD LAB - CHEMISTRY ORDERABLES Fin al Result [facility] [address] [place] [address], [facility] [phone] from Last 3 Months Insurance [facility] MANAGED MEDICARE ADV Advance Directives * Full Code (Latest Code Status on File) Date Activated Date Inactivated Comments 07/07/2025 6:09 AM 07/20/2025 4:08 PM Care Teams Pharmacist Critical Care Relationship Specialty Start Date End Date Sarkis Fu MD [address] [phone] PCP - General 07/02/14
--- OUTSIDE RECORDS SUMMARY | 2025-07-31 08:38 | XMS_ITS | Clinical Summary ---
Author Organization [facility] Address [address] [place] [phone] Phone Care Team Providers Care Irrigation Engineer Name Role Phone Julisa Clemens MD Primary [...] PCV) 2008 Influenza Vaccine (#1) 2025 Insurance [facility] MEDICARE ADVANTAGE Member Subscriber Plan / Payer (Ef fective 2020-Present) Name:Omar Baldwin Member ID:[id number] HMO Relation to Subscriber:Self Name:Omar Baldwin Subscriber ID:[id number] HMO Payer ID:[id number] Type:Not on file Address: [facility] [address] [place] [address] Care Teams Irrigation Engineer Relationship Specialty Start Date End Date Julisa Clemens MD [address] [place] [address] PCP - General Internal Medicine 06/04/21
== END 2025-07-24 17:21 ==
LOC: ANHED 19:55 → ANH3MED 07-21 02:40
PROVIDERS: Nurse Practitioner; Admitting Provider Internal Medicine; Emergency Provider Student in an Organized Health Care Education/Training Program; PCP Nurse Practitioner Family; Visit Provider Internal Medicine
DX: Z48.01 Encounter for change or removal of surgical wound dressing (principal); Z98.890 Other specified postprocedural states; J44.9 Chronic obstructive pulmonary disease, unspecified; Z99.81 Dependence on supplemental oxygen; I50.9 Heart failure, unspecified; E78.5 Hyperlipidemia, unspecified; N18.32 Chronic kidney disease, stage 3b; D64.9 Anemia, unspecified; Z79.01 Long term (current) use of anticoagulants; I13.0 Hypertensive heart and chronic kidney disease with heart failure and stage 1 through stage 4 chronic kidney disease, or unspecified chronic kidney disease; E03.9 Hypothyroidism, unspecified; Z86.718 Personal history of other venous thrombosis and embolism; I48.0 Paroxysmal atrial fibrillation; Z86.711 Personal history of pulmonary embolism; K21.9 Gastro-esophageal reflux disease without esophagitis; G47.33 Obstructive sleep apnea (adult) (pediatric); Z99.89 Dependence on other enabling machines and devices; E66.01 Morbid (severe) obesity due to excess calories; Z68.43 Body mass index [BMI] 50.0-59.9, adult
CPT/HCPCS: 36415; 80048; 85014; 85018; 85025; 85027; 92526; 92610; 94640; 96374; 97161; 97165; 97530; 97535; 99212; 99285; A9270; C8929; G0378; G0463; Q9957

== ENCOUNTER 2025-08-27 22:48 | Emergency (ER) | payer MEDICARE, SELFPAY ==
--- NOTE | ~2025-08-27 | CT_ITS ---
CT HEAD NON-CONTRAST Clinical History: Fall, thinners Comparison: None Technique: Unenhanced axial images skull base to vertex Coronal, sagittal reformats CT images acquired with automatic exposure control for dose reduction DLP: 681 mGy-cm Findings: Sulci, ventricles: Unremarkable. No intracerebral hemorrhage. No evidence acute territorial infarct. No mass effect, midline shift. Bony calvarium intact. Visualized paranasal sinuses: Maxillary disease. Mastoid air cells: Clear. IMPRESSION: 1. No acute intracranial findings. Reviewed, dictated and finalized at location [facility]. [facility]
[2025-08-27 22:59] VITALS: BP 150/98; PULSE 100; RESP 20; TEMP 36.7; O2SAT 92
--- NOTE | 2025-08-27 23:28 | ECG_ITS ---
Test Date: 2025-08-27 23:35:40 Measurements Intervals [place] Rate: 90 P: 0 WA: 0 QRS: 4 QRSD: 158 T: 69 QT: 399 QTc: 490 Interpretive Statements ATRIAL FIBRILLATION RIGHT BUNDLE BRANCH BLOCK CANNOT R/O SEPTAL INFARCT, AGE INDETERMINATE BASELINE ARTIFACT- I, II, III, AVR, AVL, AVF, V1-V6 ABNORMAL ECG Compared to ECG 07/01/2025 12:10:56 NO SIGNIFICANT CHANGE Electronically Signed On 08-28-2025 07:27:23 VALUATION CONSULTANT by Clinton Bolaños D.O.
--- NOTE | 2025-08-27 23:45 | ED.FALL ---
HPI - Fall General Chief Complaint: Fall Stated Complaint: FALL, WEAK, DIZZY, Time Seen by Provider: 08/27/25 23:20 History of Present Illness HPI Narrative: 64-year-old male with a history of COPD on 2 L baseline nasal cannula, AFib on Xarelto, recent hernia repair released from skilled care facility this afternoon to go home after he finished rehab from recent hospital admission. Patient was doing well at home but he states he got up too fast and felt lightheaded and fell backwards hitting the back of his head in the bathroom. Called EMS for some assistance and they got him up. Patient felt okay but changes mind and want to go the hospital afterwards. Presently states he is having some pain in the back of his head but otherwise no complaints. States he was discharged after a month long rehab stay after he was having surgical complications from his abdominal wounds. Has been doing well and now having home health care set up for him at home. Denies any other complaints and was otherwise doing well at rehab and is in good spirits presently. No neck pain, vision changes, vertigo, chest pain, back pain, fever, chills. Wears oxygen has oxygen at home. Related Data Home Medications ?Medication ?Instructions ?Recorded ?Confirmed ?Last Taken ?Type acetylcysteine 200 mg/mL (20 %) 3 ml inhalation Q4H 07/21/25 07/21/25 07/20/25 History solution Allergies Allergy/AdvReac Type Severity Reaction Status Date / Time bacitracin Allergy Unknown Unknown Verified 08/27/25 23:04 neomycin Allergy Unknown Unknown Verified 08/27/25 23:04 polymyxin B Allergy Unknown Unknown Verified 08/27/25 23:04 Review of Systems Review of Systems: As reviewed above in HPI All systems reviewed & are unremarkable except as noted in HPI and below PMFSH Past Medical History Medical History Chronic anticoagulation Heart failure with preserved ejection fraction Chronic kidney disease, stage 3 Hypothyroidism History of venous thromboembolism Incisional hernia Dyslipidemia Hx of pulmonary embolus x3, taking Xarelto Hypertension Heart disease Follows with Dr Perez - [facility] Anxiety Arthritis History of deep venous thrombosis 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 Surgical History Surgical History Hx of hernia repair 2007, 2009 History of sinus surgery History of ventral hernia repair x3. Family History Family History Father Leukemia Sibling Breast cancer Parkinson disease Father Cancer Mother Thyroid disorder Sibling Cancer Social History Social History Social History: The patient is . He lives home alone. He is retired. He has 3 children. Surrogate decision maker: Dennis Baldwin, son. Code status: Full code. Smoking status: Never smoker Second hand tobacco smoke exposure: No Alcohol intake: never Substance use: never Substance use type: does not use Lack of Transportation: No Lack of Food: Never True Current Housing: I Have Housing Concerned About Future Housing: No Difficulty Paying Gas/Electric Bills: No Difficulty Paying for Meds: No Currently Unemployed: No Education: High School Diploma/GED Difficulty w/ Childcare or Family Care: No Additional living arrangements comments: Lives in his own home in [place]. Occupation/Education: other Additional occupation/education comments: disabled Gender identity (if verbalized by the patient): Male Spiritual care concerns: No Exam Narrative: GENERAL: [Well-appearing, well-nourished, and in no acute distress.] HEAD: [Normocephalic, atraumatic.] EYES: [PERRLA and EOMI.] ENT: Nares clear, no rhinorrhea or epistaxis. Mucous membranes moist. NECK: Supple. CHEST: [Clear to auscultation. No respiratory distress.] HEART: Warm extremities, good pulses, AFib. No tachycardia. ABDOMEN: Soft, nondistended, no rigidity or guarding, previous abdominal surgical scars with bandaging clean dry and intact without any signs of infection purulence or weepage. No tenderness to palpation. EXTREMITIES: lymphedema bilaterally, warm extremities. SKIN: Warm, dry, no rash. NEURO: [No focal deficits]. Alert and oriented [x3.] PSYCH: [Normal mood and affect.] Course Vital Signs Vital signs: Vital Signs Temperature 36.7 C 08/27/25 22:59 Pulse Rate 100 12/29/25 22:59 Respiratory Rate 20 08/27/25 22:59 Blood Pressure 150/98 H 08/27/25 22:59 Pulse Oximetry 92 08/27/25 22:59 Oxygen Delivery Room Air 08/27/25 22:59 Temperature 36.6 C 08/28/25 06:12 Pulse Rate 73 08/28/25 06:12 Respiratory Rate 18 08/28/25 06:12 Blood Pressure 154/78 H 08/28/25 06:12 Pulse Oximetry 99 08/28/25 06:12 Oxygen Delivery Room Air 08/27/25 22:59 MDM MDM Narrative Medical decision making narrative: 64-year-old male with a history of COPD on 2 L baseline nasal cannula, AFib on Xarelto, recent hernia repair released from skilled care facility this afternoon to go home after he finished rehab from recent hospital admission. Patient was doing well at home but he states he got up too fast and felt lightheaded and fell backwards hitting the back of his head in the bathroom. Called EMS for some assistance and they got him up. Patient felt okay but changes mind and want to go the hospital afterwards. Presently states he is having some pain in the back of his head but otherwise no complaints. States he was discharged after a month long rehab stay after he was having surgical complications from his abdominal wounds. Has been doing well and now having home health care set up for him at home. Denies any other complaints and was otherwise doing well at rehab and is in good spirits presently. No neck pain, vision changes, vertigo, chest pain, back pain, fever, chills. Wears oxygen has oxygen at home. Patient overall very well-appearing. He is morbidly obese and does have recent abdominal surgery that is well healing. Vital signs show some stable hypertension but no tachycardia, tachypnea, fever. 92% on room air and he is on oxygen home so he was placed on 2 L here. He did fall is on blood thinners but has no neurological deficits or complaints aside from mild headache. He was given a dose of his home pain medications and a CT of the head was obtained. Did obtain some laboratory studies an EKG to make sure that he has no signs of dehydration electrolyte imbalances that led to his fall but otherwise he just finished rehab after his stay at the facility and was discharged home with some home health care so I believe he can be safely discharged back assuming unremarkable findings and workup. CT scan unremarkable. Laboratory studies reassuring aside from some low potassium and magnesium which was replenished here. He has remained asymptomatic and doing well. Ambulance arranged for transfer back home given his oxygen requirement baseline. Safe for discharge. Given return precautions. Patient comfortable with the plan. Differential Diagnosis Differential Diagnosis: Dehydration, electrolyte imbalances, closed head injury, intracranial hemorrhage, vertigo Lab Data [facility] Lab Attestation statement: I personally reviewed the patient's lab results. 08/28/25 00:04 08/28/25 00:04 Labs: Lab Results 08/28/25 Range/Units 00:04 WBC 10.9 H (4.5-10.0) K/mm3 RBC 3.68 L (4.6-6.20) M/mm3 Hgb 10.9 L (14.0-18.0) g/dL Hct 35.4 L (42.0-52.0) % MCV 96.2 (80-100) fl MCH 29.6 (26-34) pg MCHC 30.8 L (32-36) g/dl RDW 15.6 H (11.5-14.5) % Plt Count 303 (150-375) k/mm3 MPV 10.6 H (7.4-10.4) fl Immature Gran % (Auto) 0.3 (0-0.5) % Neut % (Auto) 79.9 H (45.5-73.1) % Lymph % (Auto) 8.1 L (18.3-44.2) % [place] % (Auto) 7.1 (2.6-8.5) % Eos % (Auto) 4.1 (0-4.4) % Baso % (Auto) 0.5 (0.2-1.2) % Lymph # (Auto) 0.89 L (0.9-3.2) K/mm3 [place] # (Auto) 0.8 H (0.1-0.6) K/mm3 Eos # (Auto) 0.5 H (0-0.3) K/mm3 Baso # (Auto) 0.1 (0.0-0.1) K/mm3 Abs Immat Gran (auto) 0.03 (0.00-0.031) K/mm3 Absolute Neuts (auto) 8.7 H (1.3-6.7) K/mm3 Absolute Nucleated RBC 0.000 (0.0-0.012) K/mm3 Nucleated RBC % 0.0 (0.0-0.2) % Sodium 137 (137-145) mmol/L Potassium 3.1 L (3.4-5.0) mmol/L Chloride 103 (98-107) mmol/L Carbon Dioxide 31 H (22-30) mmol/L Anion Gap 3 L (4-12) mmol/L BUN 20 (9-20) mg/dL Creatinine 0.86 (0.7-1.3) mg/dL Estim Creat Clear Calc 108 ml/min Estimated GFR > 60 (59 - ) Glucose 120 H (65-110) mg/dL Calcium 8.8 (8.4-10.2) mg/dL Magnesium 1.5 L (1.6-2.3) mg/dL Imaging Data Radiologist's impression: ITS Impressions Head CT 08/28/25 06:25 IMPRESSION: 1. No acute intracranial findings. Discharge Plan Discharge Clinical Impression: CHI (closed head injury) Patient Disposition: Home Condition: Stable Instructions: Antibiotic Form Patient Language: Urdu Prescriptions: No Action acetylcysteine 200 mg/mL (20 %) solution 3 ml inhalation Q4H albuterol sulfate 90 mcg/actuation HFA aerosol inhaler See Rx Instructions .ROUTE .COMPLEX Qty: 8.5 3RF Dose Instruction: INHALE 1 TO 2 PUFFS BY MOUTH EVERY 4 TO 6 HOURS NEEDED FOR SHORTNESS OF BREATH OR WHEEZING Rx Instructions: INHALE 1 TO 2 PUFFS BY MOUTH EVERY 4 TO 6 HOURS NEEDED FOR SHORTNESS OF BREATH OR WHEEZING spironolactone 25 mg tablet 12.5 mg PO DAILY Qty: 90 2RF atorvastatin 80 mg tablet 80 mg PO QHS Qty: 90 3RF furosemide 40 mg tablet 40 mg PO BID Qty: 180 1RF levothyroxine 25 mcg tablet 25 mcg PO DAILY Qty: 90 1RF budesonide-formoterol [Symbicort] 160-4.5 mcg/actuation HFA aerosol inhaler 2 puff inhalation BID Qty: 10.2 5RF Xarelto 15 mg tablet 15 mg PO DAILY Qty: 90 1RF Rx Instructions: must administer with evening meal Follow-up/Referrals: Annia Chung APRN [Primary Care Provider, [facility]]
[2025-08-28] MEDS: ACETAMINOPHEN 500 MG TABLET 1000 MG PO (00:11)
[2025-08-28] MEDS: LACTATED RINGERS 1,000 ML 999 ML IV CONT (00:11)
[2025-08-28] MEDS: traMADol HCL (*CRX) 50 MG TABLET PO (00:11)
[2025-08-28 00:14] LABS: Hematocrit 35.4 % (42.0-52.0); Hemoglobin 10.9 g/dL (14.0-18.0); Immature Granulocyte Percent A 0.3 % (0-0.5); Lymphocytes Absolute Auto 0.89 K/mm3 (0.9-3.2); Mean Corpuscular HGB Conc 30.8 g/dl (32-36); Mean Corpuscular Hemoglobin 29.6 pg (26-34); Mean Corpuscular Volume 96.2 fl (80-100); Nucleated Red Blood Cells Absolute Auto 0.000 K/mm3 (0.0-0.012); Nucleated Red Blood Cells Perc 0.0 % (0.0-0.2); Platelet Count Result 303 k/mm3 (150-375); Red Blood Count 3.68 M/mm3 (4.6-6.20); White Blood Count 10.9 K/mm3 (4.5-10.0)
[2025-08-28 00:26] LABS: Anion Gap 3 mmol/L (4-12); Blood Urea Nitrogen 20 mg/dL (9-20); Calcium 8.8 mg/dL (8.4-10.2); Carbon Dioxide 31 mmol/L (22-30); Chloride 103 mmol/L (98-107); Estimated CRCL calculation 108 ml/min; Estimated Glomerular Filt Rate > 60; Glucose 120 mg/dL (65-110); Magnesium 1.5 mg/dL (1.6-2.3); Potassium 3.1 mmol/L (3.4-5.0); Sodium 137 mmol/L (137-145)
[2025-08-28] MEDS: MAGNESIUM SULF 2 GM/WATER 50ML 2 GM/50 ML BAG IVPB (00:46)
[2025-08-28] MEDS: POTASSIUM CHLORIDE 20 MEQ ER TABLET 40 MEQ PO (00:47)
[2025-08-28 06:12] VITALS: BP 154/78; PULSE 73; RESP 18; TEMP 36.6; O2SAT 99
== END 2025-08-28 06:23 | disposition home or self-care (01) ==
PROVIDERS: Emergency Provider Student in an Organized Health Care Education/Training Program; PCP Nurse Practitioner Family
DX: S09.90XA Unspecified injury of head, initial encounter (principal); I13.0 Hypertensive heart and chronic kidney disease with heart failure and stage 1 through stage 4 chronic kidney disease, or unspecified chronic kidney disease; N18.30 Chronic kidney disease, stage 3 unspecified; I50.9 Heart failure, unspecified; I48.0 Paroxysmal atrial fibrillation; E66.01 Morbid (severe) obesity due to excess calories; Z68.45 Body mass index [BMI] 70 or greater, adult; E03.9 Hypothyroidism, unspecified; E78.5 Hyperlipidemia, unspecified; J44.9 Chronic obstructive pulmonary disease, unspecified; Z99.81 Dependence on supplemental oxygen; D64.9 Anemia, unspecified; G47.33 Obstructive sleep apnea (adult) (pediatric); K21.9 Gastro-esophageal reflux disease without esophagitis; M19.90 Unspecified osteoarthritis, unspecified site; F41.9 Anxiety disorder, unspecified; Z86.718 Personal history of other venous thrombosis and embolism; Z79.01 Long term (current) use of anticoagulants; Z79.899 Other long term (current) drug therapy; I45.10 Unspecified right bundle-branch block; R94.31 Abnormal electrocardiogram [ECG] [EKG]; W18.39XA Other fall on same level, initial encounter
CPT/HCPCS: 36415; 70450; 80048; 83735; 85025; 93005; 96361; 96365; 99284; A9270; J3475; J7120